=== PATIENT | male | born 1960 | race Caucasian/White ===

== ENCOUNTER 2023-09-12 08:28 | Outpatient (OUT) | payer MEDICARE, SELFPAY | END 2023-09-12 08:29 | disposition home or self-care (01) | LOC: PST 08:29 | PROVIDERS: PCP Family Medicine; Visit Provider Surgery | DX: Z01.818 Encounter for other preprocedural examination (principal); R19.5 Other fecal abnormalities ==

== ENCOUNTER 2023-09-20 08:18 | Day surgery (SDC) | payer MEDICARE, SELFPAY ==
--- NOTE | 2023-09-20 | OP_ITS ---
OPERATION DATE: 09/20/2023 PREOPERATIVE DIAGNOSIS: Positive Cologuard. POSTOPERATIVE DIAGNOSIS: A 1 cm pedunculated rectal polyp. PROCEDURE: Colonoscopy to cecum with hot snare polypectomy x1 for rectal polyp. SURGEON: Jose Luis Juarez M.D. ANESTHESIA: Monitored anesthesia care. ESTIMATED BLOOD LOSS: Less than 1 mL. INDICATIONS AND CONSENT: Patient is a 63-year-old male with a positive Cologuard who presents for colonoscopy. Indications, risks, benefits, alternatives of proceeding with colonoscopy were explained extensively to the patient, including the risks of bleeding, colon perforation or anesthetic complications. All of his questions were answered. Informed consent was obtained. PROCEDURE: Patient brought to the operating room, placed in the left lateral decubitus position. Monitored anesthesia care was provided. Rectal exam was performed which showed no masses or blood. The scope was inserted into the anal canal. Under direct visualization it was advanced. It was advanced to the cecum where cecal markings were clearly identified. Upon withdrawal of the scope, mucosal surfaces were carefully examined. There were no mass lesions or inflammatory changes. No significant diverticulosis. There was noted to be a 1 cm pedunculated rectal polyp that was removed with hot snare with good hemostasis. The scope was retroflexed in the anal canal. There was no significant hemorrhoidal disease. The scope was then withdrawn. Patient tolerated procedure well, was sent to recovery room in good condition.f/u colonoscopy likely in 3 years, but depends on pathology report. CC: Dr. Km STEVENSON
[2023-09-20 08:34] LABS: Glucometer 139 mg/dL (74-106)
[2023-09-20 08:38] VITALS: BP 184/82; PULSE 70; RESP 16; TEMP 36.2; O2SAT 99; BMI 27.6
[2023-09-20] MEDS: LACTATED RINGER'S SOLUTION 1,000 ML 50 ML IV (08:51)
[2023-09-20 10:14] VITALS: BP 104/48; PULSE 57; RESP 15; TEMP 36.7; O2SAT 96
[2023-09-20 10:29] VITALS: BP 127/63; PULSE 62; RESP 16; O2SAT 96
[2023-09-20 10:44] VITALS: BP 134/75; PULSE 58; RESP 16; O2SAT 96
== END 2023-09-20 10:44 | disposition home or self-care (01) ==
PROVIDERS: PCP Family Medicine; Visit Provider Surgery
PROC: (CPT 45385; principal; 2023-09-20 09:15)
DX: R19.5 Other fecal abnormalities (principal); K62.1 Rectal polyp; I25.10 Atherosclerotic heart disease of native coronary artery without angina pectoris; E11.9 Type 2 diabetes mellitus without complications; Z87.891 Personal history of nicotine dependence; I48.91 Unspecified atrial fibrillation; Z79.01 Long term (current) use of 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; E78.5 Hyperlipidemia, unspecified; K21.9 Gastro-esophageal reflux disease without esophagitis; Z87.442 Personal history of urinary calculi; E78.2 Mixed hyperlipidemia; I10 Essential (primary) hypertension; N40.0 Benign prostatic hyperplasia without lower urinary tract symptoms; Z79.82 Long term (current) use of aspirin; Z79.84 Long term (current) use of oral hypoglycemic drugs
CPT/HCPCS: 45385; 36415; 82948; 88305; J2704

== ENCOUNTER 2024-04-08 12:28 | Outpatient (OUT) | payer MEDICARE, SELFPAY ==
--- NOTE | 2024-04-08 | XR_ITS ---
[address] [address] Patient Name: MARCELLE DEUTSCH MRN: [id number] date: 1960 Sex: M Assigned Patient Location: Current Patient Location: Accession/Order Number: [id number] Exam Date: 04/08/2024 12:41 Report Date: 04/08/2024 13:03 At the request of: STEPHAN LORENZO Procedure: XR hip BI w PEL 1V EXAMINATION: XR hip BI w PEL 1V HISTORY: BILATERAL HIP PAIN COMPARISON: No relevant comparison available. FINDINGS: RIGHT FINDINGS: BONES: No acute fracture or dislocation. Minimal degenerative changes with marginal osteophyte formation SOFT TISSUES: Negative. No visible soft tissue swelling. OTHER: Extensive vascular calcifications. LEFT FINDINGS: BONES: No acute fracture or dislocation. Minimal degenerative changes with marginal osteophyte formation SOFT TISSUES: Negative. No visible soft tissue swelling. OTHER: Extensive vascular calcifications XR/XR hip BI w PEL 1V IMPRESSION: Minimal bilateral osteoarthritis Electronically authenticated by: JANNET MARQUEZ Date: 04/08/2024 13:03
--- OUTSIDE RECORDS SUMMARY | 2024-04-08 12:46 | XMS_ITS ---
Patient Summarization (C-CDA 2.1 CCD) Created on: April 08, 2024 MARCELLE DEUTSCH : 1960 Sex: Male Author Organization Sample organization Care Team Providers Care Pharmacology Teacher Name Role Phone Mark Browning Primary Care Provider [phone] Jannet Gonzalez MD Unavailable Ursula Love Primary Care Physician [phone] URSULA LOVE Admitting Unavailable URSULA LOVE Attending Unavailable URSULA LOVE ELVIA Primary Care Unavailable URSULA LOVE Consulting Unavailable BAO, DR MOSCOSO Admitting Unavailable BAO, DR MOSCOSO Attending Unavailable URSULA LOVE Primary Care Unavailable PICKFORD, DR POWER V Consulting Unavailable BAO, DR MOSCOSO Consulting Unavailable URSULA LOVE Consulting Unavailable Km Ursula ENelly Primary Care Physician PARISA HERRON Attending Unavailable BLANKA GORE Attending Unavailable Ana Spencer Attending Unavailable Ana Spencer Admitting Unavailable Km Ursula ENelly Referring Unavailable Jose Luis THOMAS Attending Unavailable Jose Luis THOMAS Attending Unavailable Jose Luis THOMAS Attending Unavailable Juan AntonioKaren figueroa Attending Unavailable Ana Spencer Attending Unavailable Ana Spencer Attending Unavailable Km Ursula ENelly Referring Unavailable Km, Ursula ENelly Admitting Unavailable Km Ursula ENelly Attending Unavailable Km Ursula E. Referring Unavailable Km, Ursula ENelly Admitting Unavailable Km Ursula ENelly Attending Unavailable Km Ursula ENelly Attending Unavailable Juan AntonioKaren figueroa Attending Unavailable Km Ursula ENelly Attending Unavailable Km, Ursula E. Referring Unavailable Shelley Bruce Attending Unavailable Juan Antonio Karen L Admitting Unavailable Juan AntonioKaren figueroa Attending Unavailable Bharath Melton Attending Unavailable Bharath Melton Admitting Unavailable Km Ursula E. Attending Unavailable Ursula Love E. Attending Unavailable Ursula Love E. Attending Unavailable Km, Ursula E. Attending Unavailable Ross, Ursula E. Attending Unavailable Km, Ursula E. Admitting Unavailable Km, Ursula E. Attending Unavailable Ross, Ursula E. Admitting Unavailable Ross, Ursula E. Attending Unavailable Ross, Ursula E. Admitting Unavailable Ross, Ursula E. Attending Unavailable Km, Ursula E. Referring Unavailable Ana Spencer Attending Unavailable Demboske, Ana Rivas Attending Unavailable DemboskeAna Admitting Unavailable Demboske, Ana Rivas Attending Unavailable Ross, Ursula E. Admitting Unavailable Allergies Allergy Classification Reported Allergen(s) Allergy Type Date of Onset Reaction(s) Facility (20 sources) Penicillins; 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: [penicillins] Propensity to adverse reactions to drug 4 Hives, Weal (disorder) [facility] (1 source) Penicillins Drug allergy (disorder) 4 [facility] (1 source) No Known Medication Allergies; 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: [No Known Medication Allergies] Propensity to adverse reactions (disorder) [facility] Repository Encounters Encounter Date Encounter Type Care Provider Facility Start: 12-17-2024 ambulatory Ursula Love Facility :[facility] Start: 03-26-2024 End: 03-26-2024 ambulatory Ursula Love Facility:[facility] Start: 03-14-2024 End: 03-14-2024 Patient encounter procedure Ana Hubbardboy [facility] Start: 03-12-2024 End: 03-13-2024 ambulatory Ana Evelyn Tj Facility:[facility] Start: 03-12-2024 ambulatory Ana Rivas Tj Fac ility:[facility] Start: 03-12-2024 End: 03-12-2024 Patient encounter procedure Ana Rivas Tj [facility] Start: 02-15-2024 End: 02-15-2024 ambulatory Ana Evelyn Spencer Facility:[facility] Start: 02-15-2024 End: 02-15-2024 Patient encounter procedure Ana Spencer [facility] Start: 02-08-2024 End: 02-08-2024 ambulatory Ana Spencer Facility:[facility] Start: 02-08-2024 End: 02-08-2024 Patient encounter procedure Ana Spencer [facility] Start: 02-01-2024 End: 02-01-2024 ambulatory Ana Spencer Facility:[facility] Start: 02-01-2024 End: 02-01-2024 Patient encounter procedure Ana Spencer [facility] Start: 01-25-2024 End: 02-07-2024 ambulatory Ursula Love Facility:[facility] Start: 01-25-2024 End: 01-25-2024 Patient encounter procedure Ana Spencer [facility] Start: 01-16-2024 End: 01-16-2024 ambulatory Bharathjose david Ahujawilbert Facility:[facility] Start: 01-16-2024 End: 01-16-2024 Patient encounter procedure Bharathjose david Ahujalulisylwia [facility] Start: 12-29-2023 End: 12-29-2023 ambulatory PARISA GOPAL [facility] Start: 12-28-2023 End: 12-28-2023 ambulatory Ursula Love Facility:[facility] Start: 12-27-2023 End: 12-27-2023 ambulatory Ursula Love Facility:[facility] Start: 12-27-2023 End: 12-27-2023 Patient encounter procedure Ursula Love [facility] Start: 12-19-2023 ambulatory Ursula Love Facility :[id number] Start: 12-18-2023 End: 12-18-2023 Lab Drop off Ursula Love [facility] Start: 12-18-2023 End: 12-18-2023 ambulatory Ursula Love Facility:[facility] Start: 12-18-2023 End: 12-18-2023 ambulatory Ursula Love Facility:[facility] Start: 10-04-2023 End: 10-04-2023 ambulatory Jose Luis R NILL Facility: [facility] Start: 10-04-2023 End: 10-04-2023 Patient encounter procedure Jose Luis R NILL [facility] Start: 09-20-2023 End: 09-20-2023 ambulatory Jose Luis R NILL Facility:[id number] Start: 08-29-2023 End: 08-29-2023 ambulatory Ursula Love Facility: [facility] Start: 08-16-2023 End: 08-16-2023 ambulatory Ursula Love Facility:[facility] Start: 08-16-2023 End: 08-16-2023 Patient encounter procedure Shelley Bruce [facility] Start: 08-08-2023 ambulatory Ursula Love Facility:[facility] Start: 08-07-2023 End: 08-07-2023 ambulatory Ursula Love Facility:[facility] Start: 08-07-2023 End: 08-07-2023 Patient encounter procedure Ursula Love [facility] Start: 08-04-2023 End: 08-04-2023 Lab Drop off Karen Richard Juan Antonio [facility] Start: 08-04-2023 End: 08-04-2023 ambulatory Karen L Juan Antonio Facility:[facility] Start: 08-03-2023 ambulatory Ursula Km Facility: [facility] Start: 07-19-2023 End: 07-19-2023 ambulatory Karen Richard Juan Antonio Facility:[facility] Start: 07-04-2023 End: 07-04-2023 ambulatory Ursula Love Facility:[facility] Start: 07-04-2023 End: 07-04-2023 Lab Drop off Ursula Love [facility] Start: 07-03-2023 End: 07-03-2023 Lab Drop off Ursula Love [facility] Start: 07-03-2023 End: 07-03-2023 ambulatory Ursula Love Facility:[facility] Start: 06-21-2023 End: 06-21-2023 ambulatory [facility] Start: 01-04-2023 End: 01-05-2023 ambulatory URSULA LOVE Facility: Start: 04-01-2022 End: 04-01-2022 Off-Site Ursula Love [facility] Start: 03-30-2022 End: 03-30-2022 Off-Site Ursula Love [facility] Start: 02-03-2022 Orders Only Jannet Timmons Work Phone: Cardiology Comment on above: Persistent atrial fi brillation (HCC) (Primary Dx) Goals Date Patient Goal Desired Activity /State 12-28-2023 Immunizations Immunization Date Immunization Notes Care Provider Elliot rahman 08-31-2021 SARS-CoV-2 (COVID-19 ) Ad26 vaccine, recombinant Ursula Love [facility] Comment on above: Result Comment: 2021: [id number] 07-23-2021 influenza virus vaccine, unspecified formulation Ursula Love [facility] 12-23-2020 SARS-CoV-2 (COVID-19 ) Ad26 vaccine, recombinant Ursula Love [facility] 07-30-2018 influenza virus vaccine, unspecified formulation Ursula Love [facility] NEGATED: Highlighted row has not occurred!07-03-2023 influenza virus vaccine, unspecified formulation Ursula Love [facility] Medications Current Medications Medication Drug Class(es) Dates Sig (Normalized) Sig (Original) amLODIPine 5 mg oral tablet (17 sources) Dihydropyridine Calcium Channel Josh Start: 04-01-2022 take 1 mg by mouth once daily amLODIPine 5 mg Tab mg tab(s), Oral, Daily, Refills(s) 0 Start Date: 04/01/22 Status: Ordered take 1 tablet by mouth once sonya y amLODIPine (NORVASC) 5 mg tablet amlodipine 5 mg tablet TAKE ONE TABLET BY MOUTH DAILY 0 Active Comment on above: amlodipine 5 mg tabl et TAKE ONE TABLET BY MOUTH DAILY apixaban 5 mg oral tablet (9 sources) Factor Xa Inhibitor Start: 12-18-2023 take 5 mg by mouth twice daily Eliquis 5 mg, Oral, BID, Refills(s) 0 Start Date: 12/18/23 Status: Ordered aspirin 81 mg oral tablet (17 sources) Platelet Aggregation Inhibitor, Nonsteroidal Anti-inflammatory Drug Start: 08-29-2014 take 81 mg by mouth once daily aspirin 81 mg, Oral, Daily, Refills(s) 0 Start Date: 08/29/14 Status: Ordered Start: 08-29-2014 take 325 mg by mouth once sonya y aspirin 325 mg, Oral, Daily, Refills(s) 0 Start Date: 08/29/14 Status: Ordered atorvastatin 80 mg oral tablet (16 sources) HMG-CoA Reductase Inhibitor Start: 12-19-2022 take 1 tablet by mouth once daily atorvastatin 80 mg Tab 80 mg = 1 tab(s), Oral, Daily, # 90 tab(s), Refills(s) 0 Start Date: 12/19/22 Status: Ordered atorvastatin (LI PITOR) 80 mg tablet atorvastatin 80 mg tablet 0 Active Comment on above: atorvastatin 80 mg t ablet baclofen 5 mg oral tablet (1 source) gamma-Aminobutyric Acid-ergic Agonist Start: 2 End: 2 take 1 tablet by mouth three times daily baclofen 5 mg oral tablet 5 mg = 1 tab(s), Oral, TID, X 30 day(s), # 90 tab(s), Refills(s) 0, Pharmacy: [facility]/pharmacy #[id number] Start Date: 04/01/22 Stop Date: 05/01/22 Status: Ordered Centrum Minis Men 50+ oral tablet (7 sources) Start: 4 take 1 tablet by mouth once daily Centrum Minis Men 50+ oral tablet 1 tab(s), Oral, Daily, Refill(s) 0 Start Date: 12/28/23 Status: Ordered cloNIDine hydrochloride 0.1 mg oral tablet (17 sources) Central alpha-2 Adrenergic Agonist Start: 2 take 1 mg by mouth twice daily cloNIDine 0.1 mg tab mg tab(s), Oral, BID Start Date: 04/01/22 Status: Ordered take 1 tablet by mouth twice javon ly cloNIDine HCl (CATAPRES) 0.1 mg tablet clonidine HCl 0.1 mg tablet TAKE ONE TABLET BY MOUTH TWICE A DAY 0 Active Comment on above: clonidine HCl 0.1 mg tablet TAKE ONE TABLET BY MOUTH TWICE A DAY dilTIAZem hydrochloride 30 mg oral tablet (19 sources) Calcium Channel Josh Start: 04-01-2022 diltiazem 30 mg Tab See Instructions, take 1-2 orally as needed, Refills(s) 0 Start Date: 07/03/23 Status: Ordered Start: 02-03-2022 dilTIAZem (CAR DIZEM) 30 mg tablet Take 1 tablet by mouth as needed (1-2 tablets every 6 hours as needed for rapid heart beat (AFIB)). 60 tablet 3 02/03/2022 Active Comment on above: Take 1 tablet by sendy th as needed (1-2 tablets every 6 hours as needed for rapid heart beat (AFIB)). 24 hr isosorbide mononitrate 120 mg extended release oral tablet (18 sources) Nitrate Vasodilator Start: take 1 tablet by mouth once daily in the morning isosorbide mononitrate 120 mg ER Tab 120 mg = 1 tab(s), Oral, qAM, # 90 tab(s), Refills(s) 0 Start Date: 12/19/22 Status: Ordered isosorbide monon itrate ER (IMDUR) 120 mg 24 hr tablet 120 mg once daily. 0 Active Comment on above: 120 mg once daily. Isosorbide Dinitrate (1 source) Nitrate Vasodilator Start: 04-01-2022 isosorbide dinitrate Oral, Refills(s) 0 Start Date: 04/01/22 Status: Ordered lisinopril 20 mg oral tablet (18 sources) Angiotensin Converting Enzyme Inhibitor Start: 07-06-2023 lisinopril 20 mg Tab See Instructions, TAKE 1 TABLET DAILY, # 90 tab(s), Refills(s) 1, Pharmacy: [facility], 178, cm, 12/18/23 13:19:00 EST, Height/Length Dosing, 89.1, kg, 12/18/23 13:19:00 EST, Weight Dosing Start Date: 12/19/23 Status: Ordered Start: 04-25-2023 take 1 tablet by sendy th once daily lisinopril 20 mg Tab 20 mg = 1 tab(s), Oral, Daily, # 90 tab(s), Refills(s) 1, Pharmacy: [facility], 178, cm, 12/19/22 9:57:00 EST, Height/Length Dosing, 90.4, kg, 12/19/22 9:57:00 EST, Weight Dosing Start Date: 04/25/23 Status: Ordered Start: 04-01-2022 take 1 tablet by sendy th once daily lisinopril 10 mg Tab 10 mg = 1 tab(s), Oral, Daily, # 90 tab(s), Refills(s) 0 Start Date: 04/01/22 Status: Ordered Start: 04-01-2022 take 1 mg by mouth once daily lisinopril 20 mg Tab mg tab(s), Oral, Daily, Refills(s) 0 Start Date: 04/01/22 Status: Ordered take 1 tablet by [facility] once daily lisinopril (ZESTRIL, PRINIVIL) 20 mg tablet lisinopril 20 mg tablet TAKE ONE TABLET BY MOUTH ONCE DAILY 0 Active Comment on above: lisinopril 20 mg tab let TAKE ONE TABLET BY MOUTH ONCE DAILY meloxicam 15 mg oral tablet (1 source) Nonsteroidal Anti-inflammatory Drug Start: 04-01-20 take 1 tablet by mouth once daily meloxicam 15 mg oral tablet 15 mg = 1 tab(s), Oral, Daily, # 30 tab(s), Refills(s) 0, Pharmacy: [facility]/pharmacy #[id number] Start Date: 04/01/22 Status: Ordered metFORMIN hydrochloride 500 mg oral tablet (17 sources) Biguanide Start: 07-06-20 metformin 500 mg Tab See Instructions, TAKE 2 TABLETS TWICE A DAY, # 360 tab(s), Refills(s) 1, Pharmacy: [facility], 178, cm, 12/18/23 13:19:00 EST, Height/Length Dosing, 89.1, kg, 12/18/23 13:19:00 EST, Weight Dosing Start Date: 12/19/23 Status: Ordered Start: 04-25-2023 take 2 tablets by [facility] twice daily metformin 500 mg Tab 1,000 mg = 2 tab(s), Oral, BID, TAKE TWO TABLETS BY MOUTH TWICE A DAY, # 360 tab(s), Refills(s) 1, Pharmacy: [facility], 178, cm, 12/19/22 9:57:00 EST, Height/Length Dosing, 90.4, kg, 12/19/22 9:57:00 EST, Weight Dosing Start Date: 04/25/23 Status: Ordered Start: 04-01-2022 End: 09-28-2022 take 2 tablets by mouth twice daily metformin 500 mg ER Tab 1,000 mg = 2 tab(s), Oral, BID, X 90 day(s), # 360 tab(s), Refills(s) 1, Pharmacy: [facility] Start Date: 04/01/22 Stop Date: 09/28/22 Status: Ordered take 2 tablets by mo uth twice daily metFORMIN (GLUCOPHAGE) 500 mg tablet metformin 500 mg tablet TAKE TWO TABLETS BY MOUTH TWICE A DAY 0 Active Comment on above: metformin 500 mg tab let TAKE TWO TABLETS BY MOUTH TWICE A DAY 24 hr metoprolol succinate 100 mg extended release oral tablet (18 sources) beta-Adrenergic Josh Start: 08-29-2014 take 2 tablets by mouth once daily Toprol XL 100 mg Tab-ER 200 mg = 2 tab(s), Oral, Daily, Refills(s) 0 Start Date: 08/29/14 Status: Ordered Start: 08-29-2014 take 1 tablet by sendy once daily Toprol XL 100 mg Tab-ER 100 mg = 1 tab(s), Oral, Daily, Refills(s) 0 Start Date: 08/29/14 Status: Ordered take 1 tablet by sendy once daily metoprolol succinate ER (TOPROL XL) 200 mg 24 hr tablet Take 200 mg by mouth once daily. 0 Active Comment on above: Take 200 mg by mouth once daily. omeprazole 20 mg delayed release oral capsule (18 sources) Proton Pump Inhibitor Start: 11-20-2023 take 1 capsule by mouth once daily omeprazole 20 mg Cap-DR 20 mg = 1 cap(s), Oral, Daily, # 90 cap(s), Refills(s) 1, Pharmacy: [facility], 178, cm, 08/29/23 14:28:00 EST, Height/Length Dosing, 90.8, kg, 08/29/23 14:28:00 EST, Weight Dosing Start Date: 11/20/23 Status: Ordered Start: 07-03-2023 take 1 capsule by [facility] once daily omeprazole 20 mg Cap-DR 20 mg = 1 cap(s), Oral, Daily, # 90 cap(s), Refills(s) 1, Pharmacy: [facility], 178, cm, 07/03/23 7:24:00 EDT, Height/Length Dosing, 90, kg, 07/03/23 7:24:00 EDT, Weight Dosing Start Date: 07/03/23 Status: Ordered Start: 04-01-2022 End: 09-28-2022 take 1 capsule by mouth once daily omeprazole 20 mg Cap-DR 20 mg = 1 cap(s), Oral, Daily, X 90 day(s), # 90 cap(s), Refills(s) 1, Pharmacy: [facility] Start Date: 04/01/22 Stop Date: 09/28/22 Status: Ordered Start: 08-29-2014 take 1 capsule by [facility] once daily omeprazole (PRILOSEC) 20 mg capsule Take 1 capsule by mouth once daily. 90 capsule 3 12/19/2018 Active Comment on above: Take 1 capsule by [facility] once daily. ProFe 180 mg oral capsule (8 sources) Start: 12-25-2023 take 1 capsule by mouth once daily ProFe 180 mg oral capsule 180 mg = 1 cap(s), Oral, Daily, # 100 cap(s), Refills(s) 0, Pharmacy: [facility]/pharmacy #[id number], 178, cm, 12/18/23 13:19:00 EST, Height/Length Dosing, 89.1, kg, 12/18/23 13:19:00 EST, Weight Dosing Start Date: 12/25/23 Status: Ordered 12 hr ranolazine 500 mg extended release oral tablet (15 sources) Anti-anginal Start: 12-19-2022 take 2 tablets by mouth twice daily ranolazine 500 mg oral ER Tab 1,000 mg = 2 tab(s), Oral, BID, # 120 tab(s), Refills(s) 0 Start Date: 12/19/22 Status: Ordered rivaroxaban 20 mg oral tablet (8 sources) Factor Xa Inhibitor Start: 07-03-2023 take 1 tablet by mouth once daily in the evening Xarelto 20 mg oral tablet 20 mg = 1 tab(s), Oral, qPM, Refills(s) 0 Start Date: 07/03/23 Status: Ordered Start: 04-01-2022 End: 09-28-2022 Xarelto 20 mg oral tablet 20 mg, Oral, Daily, DVT/PE Treatment and CrCl over 30 ml/min: (start AFTER 15 mg dosing x 21 days), X 180 day(s), # 180 tab(s), Refills(s) 1 Start Date: 04/01/22 Stop Date: 09/28/22 Status: Ordered Start: 01-21-2019 take 1 tablet by [facility] once daily rivaroxaban (XARELTO) 20 mg tablet Take 1 tablet by mouth once daily. 90 tablet 3 01/21/2019 Active Comment on above: Take 1 tablet by sendy once daily. simvastatin 40 mg oral tablet (2 sources) HMG-CoA Reductase Inhibitor Start: 08-29-2014 take 1 tablet by mouth once daily at bedtime Zocor 40 mg Tab 40 mg = 1 tab(s), Oral, Once a day (at bedtime), Refills(s) 0 Start Date: 08/29/14 Status: Ordered tamsulosin hydrochloride 0.4 mg oral capsule (2 sources) alpha-Adrenergic Josh Start: 07-19-2023 take 1 capsule by mouth once daily Flomax 0.4 mg Cap 0.4 mg = 1 cap(s), Oral, Daily, # 10 cap(s), Refills(s) 0, Pharmacy: [facility]/pharmacy #[id number], 178, cm, 07/19/23 11:20:00 EDT, Height/Length Dosing, 89.2, kg, 07/19/23 11:20:00 EDT, Weight Dosing Start Date: 07/19/23 Status: Ordered Payers Date Payer Category Payer Medicare [id number] 2023 Unknown [id number] 2021 Unknown SHELLIE LAWRENCE PPO [id number] 2021-Present [phone] [address] [place] [address] PPO [id number] 1959 Unknown [id number] 1960 Unknown [id number] 2.16.840.1.266600.3.579.2.593 1960 Unknown [id number] 2.16.840.1.375773.3.579.2.593 1960 Unknown [id number] 2.16.840.1.463163.3.579.2.727 1960 Unknown [id number] 2.16.840.1.849200.3.579.2.727 1960 Unknown [id number] 2.16.840.1.068960.3.579.2.727 1960 Unknown [id number] 2.16.840.1.503213.3.579.2.72 1960 Unknown [id number] 2.16.840.1.834711.3.579.2.72 1960 Unknown [id number] 2.16.840.1.700824.3.579.2.72 1960 Unknown [id number] 2.16.840.1.508594.3.579.2.72 1960 Unknown [id number] 2.16.840.1.445030.3.579.2. 1958 Unknown [id number] 2.16.840.1.720748.3.579.2. 1958 Unknown [id number] 2.16.840.1.518445.3.579.2. 1960 Unknown [id number] 2.16.840.1.735023.3.579.2. 1960 Unknown [id number] 2.16.840.1.287604.3.579.2. 1960 Unknown [id number] 2.16.840.1.939113.3.579.2. 1960 Unknown [id number] 2.16.840.1.361615.3.579.2.72 1958 Unknown [id number] 2.16.840.1.816180.3.579.2. 1958 Unknown [id number] 2.16.840.1.499679.3.579.2. 1958 Unknown [id number] 2.16.840.1.575914.3.579.2. 1960 Unknown [id number] 2.16.840.1.052611.3.579.2.727 1958 Unknown [id number] 2.16.840.1.836372.3.579.2.727 1958 Unknown [id number] 2.16.840.1.093928.3.579.2.727 1958 Unknown [id number] 2.16.840.1.373511.3.579.2.727 1958 Unknown [id number] 2.16.840.1.064427.3.579.2.727 1958 Unknown [id number] 2.16.840.1.158478.3.579.2.727 1958 Unknown [id number] 2.16.840.1.471933.3.579.2.727 1958 Unknown [id number] 2.16.840.1.729711.3.579.2.727 Plan of Treatment Date Care Activity Detail Author Start: 07-04-2020 DIABETES SCREEN DIABETES SCREEN [facility] Start: 2013 PROSTATE CANCER SCREENING DISCUSSION PROSTATE CANCER SCREENING DISCUSSION [facility] Start: 2008 SHINGRIX VACCINE (1 of 2) SHINGRIX VACCINE (1 of 2) [facility] Start: 2003 COLOGUARD (FIT-DNA) COLOGUARD (FIT-D NA) [facility] Start: 2003 Colonoscopy COLONOSCOPY [facility] Start: 2003 COLORECTAL CANCER SCREENING COLORECTAL CANCER SCREENING [facility] Start: [address] COLONOGRAPHY [facility] Start: 2003 FECAL OCCULT BLOOD FECAL OCCULT BLOO D [facility] Start: 2003 SIGMOIDOSCOPY SIGMOIDOSCOPY [facility] Start: 1993 LIPID SCREEN LIPID SCREEN [facility] Start: 1977 Urine microalbumin profile DTAP,TDAP,TD (1 - Tdap) [facility] Start: 1976 ANNUAL PCP TEAM TREATMENT COUNSELOR SARAH DISEASE VISIT ANNUAL PCP TEAM CHRONIC DISEASE VISIT [facility] Start: 1976 BP CONTROLLED (<130/80) BP CONTROLLE D (<130/80) [facility] Start: 1976 Hepatitis B surface antibody level LDL CHOLESTEROL [facility] Start: 1976 HEPATITIS C SCREENING HEPATITIS C PANKAJ MAXINE [facility] Start: 1976 HIV SCREENING HIV SCREENING [facility] Start: 1970 Adult depression screening assessment DEPRESSION SCREENING [facility] End: 02-03-2023 ECG COMPLETE ECG COMPLETE ECG Routine Persistent atrial fibrillation (HCC) 1 Occurrences starting 02/03/2022 until 02/03/2023 [facility] Work Phone: Comment on above: 1 Occurrences starti ng 02/03/2022 until [facility] Active Problems Problem Classification Problem Date Documented Da te Episodic/Chronic Abdominal pain (4 sources) Left flank pain 07-19-2023 Episodic Aortic; peripheral; and visceral artery aneurysms (18 sources) Aortic aneurysm; 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: [Abdominal aortic aneurysm] 08-08-2023 Chronic Calculus of urinary tract (17 sources) Kidney stone; 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: [History of calculus of kidney] Onset: 3 07-19-2023 Episodic Cardiac dysrhythmias (20 sources) Persistent atrial fibrillation; 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: [Other persistent atrial fibrillation] Onset: 2 Chronic Coronary atherosclerosis and other heart disease (20 sources) Coronary arteriosclerosis; 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: [Atherosclerotic heart disease of [place] coronary artery without angina pectoris] Onset: 4 10-02-2014 Chronic Deficiency and other anemia (7 sources) Microcytic anemia 12-28-2023 Episodic Deficiency and other anemia (2 sources) Iron deficiency anemia; 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: [Iron deficiency anemia, unspecified] Onset: 4 Episodic Diabetes mellitus without complication (19 sources) Type 2 diabetes mellitus without complications; 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: [Type 2 diabetes mellitus without complication] Onset: 3 Chronic Disorders of lipid metabolism (20 sources) Dyslipidemia; 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: [Hyperlipidemia, unspecified] Onset: 3 08-22-2014 Chronic Esophageal disorders (15 sources) Gastroesophageal reflux disease without esophagitis 07-03-2023 Chronic Essential hypertension (20 sources) Hypertensive disorder; 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: [Essential (primary) hypertension] Onset: 2 08-22-2014 Chronic Genitourinary symptoms and ill-defined conditions (15 sources) Blood in urine; 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: [Dysuria] Onset: 3 07-19-2023 Episodic Hemorrhoids (13 sources) Bleeding external hemorrhoids 08-02-2023 Episodic Hyperplasia of prostate (12 sources) Benign prostatic hypertrophy without outflow obstruction; 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: [Benign prostatic hyperplasia without lower urinary tract symptoms] Onset: 3 Chronic Nutritional deficiencies (1 source) Vitamin B deficiency; 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: [Deficiency of other specified B group vitamins] Onset: 4 Episodic Other and unspecified benign neoplasm (1 source) Benign neoplasm of rectum; 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: [Benign neoplasm of rectum] Onset: 3 Episodic Other and unspecified benign neoplasm (10 sources) Adenomatous polyp of rectum 10-04-2023 Episodic Other circulatory disease (2 sources) Other disorders of arteries, arterioles and capillaries in diseases classified elsewhere; 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: [Other disorders of arteries, arterioles and capillaries in diseases classified elsewhere] Onset: 4 Chronic Other ear and sense organ disorders (6 sources) Impacted cerumen 07-03-2023 Episodic Other gastrointestinal disorders (2 sources) Intestinal malabsorption; 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: [Intestinal malabsorption, unspecified] Onset: 4 Chronic Other gastrointestinal disorders (7 sources) Splenomegaly 12-28-2023 Episodic Other nutritional; endocrine; and metabolic disorders (18 sources) Metabolic syndrome X; 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: [Metabolic syndrome] 10-11-2021 Chronic Other nutritional; endocrine; and metabolic disorders (2 sources) Obesity 09-01-2014 Chronic Other nutritional; endocrine; and metabolic disorders (15 sources) Overweight in adulthood with body mass index of 25 or more but less than 30 12-19-2022 Episodic Other nutritional; endocrine; and metabolic disorders (10 sources) Overweight 08-29-2023 Episodic Other screening for suspected conditions (not mental disorders or infectious disease) (2 sources) Cardiovascular stress test abnormal; 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: [Abnormal result of other cardiovascular function study] Onset: 4 08-25-2014 Episodic Residual codes; unclassified (12 sources) Family history of malignant neoplasm of kidney; 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: [Family history of malignant neoplasm of kidney] Onset: 3 Episodic Screening and history of mental health and substance abuse codes (12 sources) H/O: Disorder; 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: [Personal history of nicotine dependence] Onset: 3 Episodic Unclassified (15 sources) Non-smoker 12-19-2022 Unclassified (20 sources) Patient encounter status 07-03-2023 Unclassified (1 source) Infrarenal abdominal aortic aneurysm, without rupture; 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: [Infrarenal abdominal aortic aneurysm, without rupture] Onset: 4 Unclassified (1 source) Aneurysm of the ascending aorta, without rupture; 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: [Aneurysm of the ascending aorta, without rupture] Onset: 4 Past or Other Problems Problem Classification Problem Date Documented Da te Episodic/Chronic Other aftercare (1 source) Long-term current use of anticoagulant; 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: [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] Onset: 11-28-2017 11-28-2017 Episodic Unclassified (1 source) Infrarenal abdominal aortic aneurysm, without rupture; 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: [Infrarenal abdominal aortic aneurysm, without rupture] Onset: 12-29-2023 Unclassified (1 source) Aneurysm of the ascending aorta, without rupture; 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: [Aneurysm of the ascending aorta, without rupture] Onset: 12-29-2023 Procedures Date Procedure Procedure Detail Performing Clinician Start: 09-20-2023 Colonoscopy Jose Luis RIVERA Cardiac ablation sys tem (physical object) Shelley Teo Cardiac catheterization Hernandez THOMAS Repair of musculoten dinous cuff of shoulder Jose Luis TOHMAS Rupture of tendon of biceps (disorder) Jose Luis THOMAS Structure of right s houlder region (body structure) Ursula Love Tonsillectomy Jose Luis THOMAS Results Test Name Value Interpretation Reference Range Facil ity Ambulatory Visit Summaryon 0 03-26-2024 Ambulatory Visit Summary MARCELLE DEUTSCH :1960 Visit Date:03/26/2024 Ambulatory Visit Instructions Your Diagnosis Controlled type 2 diabetes mellitus without complication, without long-term current use of insulin Microcytic anemia Primary hypertension AAA (abdominal aortic aneurysm) BMI 26.0-26.9,adult Former smoker Longstanding persistent atrial fibrillation Hip pain, bilateral Pain in left hip These Are Your Goals Complications of CAD Avoided 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s: Review educational material - Done complete testing as directed per provider - Progressing keep follow up appointments as scheduled - Progressing maintain a healthy weight- avoid foods high in saturated fat and trans fat, sugar and sodium - Progressing Reduce A1c and prevent complications assoc with diabetes - Not met 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s: Complete testing as ordered per provider - Not done Keep follow up appoinments as scheduled per proviser - Not done Maintain healthy weight by continuing regular exercise Monday through Monday and a balanced diet - Progressing Review educational material Take Medications as Prescribed - Progressing Exacerbations, Complications of Atrial Fib Avoided - Not met 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s: Keep follow up appointments and testing as scheduled - Progressing Report unrelieved symptoms to provider - Progressing Review educational material - Done Take Medications as Prescribed - Progressing try to reduce or limit alcohol intake - Not done Blood Pressure Maintained Within Therapeutic Range - Not met 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s: Avoid foods high in sodium and try to limit alcohol intake - Progressing Monitor blood pressure 2- 3days per week and report readings to provider - Progressing Review educational material - Done Take Medications as Prescribed - Progressing keep follow up appointments and complete testing as scheduled - Progressing Your Care Team Attending Physician - Ursula Love MD Primary Care Physician - Ursula Love MD. This Is Your Medications List amlodipine (amLODIPine 5 mg Tab) apixaban (Eliquis) aspirin atorvastatin (atorvastatin 80 mg Tab) clonidine (cloNIDine 0.1 mg tab) diltiazem (diltiazem 30 mg Tab) ezetimibe (Zetia) isosorbide mononitrate (isosorbide mononitrate 120 mg ER Tab) lisinopril (lisinopril 20 mg Tab) metformin (metformin 500 mg Tab) metoprolol (Toprol XL 100 mg Tab-ER) multivitamin with minerals (Centrum Minis Men 50+ oral tablet) omeprazole (omeprazole 20 mg Cap-DR) ranolazine (ranolazine 500 mg oral ER Tab) Procedures Performed Colonoscopy (09/20/2023), Cardiac ablation system, Cardiac catheterization, Rotator cuff repair, Tear of biceps tendon, Tonsillectomy. Discharge Vitals Heart Rate (Peripheral) 56 Respiratory Rate 18 Blood Pressure 120/65 Height 70 in Height 179.0 cm Weight 189.2 lb Weight 86.0 kg BMI 26.84 What to do next Scheduled Follow-Up Appointments 2023 2:00 PM EDT With: Where: [facility] 2023 2:00 PM EDT With: Where[facility] 2023 2:00 PM EDT With: Where: [facility] 2023 2:00 PM EDT With: Where: [facility] 2023 2:00 PM EDT With: Where: [facility] 2023 2:00 PM EST With: Where: [facility] Monday, 2023 11:00 AM EST With: Tj BURTON, Ana Rivas Where: [facility] 2023 2:00 PM EST With: Where: [facility] 2024 2:15 PM EST With: Where: [facility] 2024 2:15 PM EST With: Where: [facility] Monday 8:00 AM EST With: Where: [facility] [place] [facility] Family Medicine Office/Clini c Noteon 03-26-2024 Family Medicine Office/Clinic Note HPI Staff Marcelle is a 63 year old male presenting for 3 month follow up DM, HTN, anemia Do you have any of the following symptoms? Foot Exam: due Eye Exam: Last A1C: Hgb A1C %: 6.9 % High (12/18/23 14:20:00) Statin: atorvastatin 40mg pt checks blood blood sugars twice a week roughly running 130's or under Patient is here for follow up on hypertension. How often are you checking your blood pressure? few times a week What are your average readings? today 120/65 Yearly BMP: 01/16/24 Pt had Iron infusion and b12, pt states he have helped a lot having more energy and isn't getting as tired as he use to. History of Present Illness - See staff HPI. Review of Systems PHQ Score Initial Depression Screen Score: 0 SCORE Physical Exam Vitals & Measurements HR: 56(Peripheral) RR: 18 BP: 120/65 SpO2: 95% HT: 70 in HT: 179.0 cm WT: 86.0 kg WT: 189.2 lb BMI: 26.84 General: alert, no acute distress ENMT: oral mucosa moist, Cardiovascular: regular rate and rhythm, normal peripheral perfusion Respiratory: Lungs CTA, respirations non labored Extremities: no deformity, no trauma Neurological: oriented x 4, LOC appropriate for age, CN II-XII intact, motor strength equal & normal bilaterally, speech normal Abdomen: Soft, Nontender, Non-distended, + BS Assessment/Plan 1. Controlled type 2 diabetes mellitus without complication, without long-term current use of insulin (E11.9: Type 2 diabetes mellitus without complications) - Well controlled. - Meds controlling without issues with meds 2. Microcytic anemia (D50.9: Iron deficiency anemia, unspecified) - Seeing Hematology. - Improving greatly. - Feeling amazing 3. Primary hypertension (I10: Essential (primary) hypertension) - At goal. - Has white coat - Improves when relaxed 4. AAA (abdominal aortic aneurysm) (I71.40: Abdominal aortic aneurysm, without rupture, unspecified) - Seeing Vascular for this. - NO other issues at this time. 5. BMI 26.0-26.9,adult (Z68.26: Body mass index [BMI] 26.0-26.9, adult) - BMI education given 6. Former smoker (Z87.891: Personal history of nicotine dependence) - Please continue to not smoke. 7. Longstanding persistent atrial fibrillation (I48.11: Longstanding persistent atrial fibrillation) - Cardiology follow up. - On Eliquis - No bleeding found. 8. Hip pain, bilateral (M25.551: Pain in right hip) - Discussed this and pt seeing ortho. - Discussed bed changes etc. Pain in left hip (M25.552: Pain in left hip) Orders: iron polysaccharide, 180 mg = 1 cap(s), Oral, Daily, # 100 cap(s), Refills(s) 0, Pharmacy: [id number], 178, cm, 12/18/23 13:19:00 EST, Height/Length Dosing, 89.1, kg, 12/18/23 13:19:00 EST, Weight Dosing lisinopril, See Instructions, TAKE 1 TABLET DAILY, # 90 tab(s), Refills(s) 1, Pharmacy: [id number], 179, cm, 03/26/24 10:53:00 EDT, Height/Length Dosing, 86, kg, 03/26/24 10:53:00 EDT, Weight Dosing Follow-up No qualifying data available Problem List/Past Medical History Ongoing AAA (abdominal aortic aneurysm) Aortic aneurysm BMI 28.0-28.9,adult BPH (benign prostatic hyperplasia) CAD in [place] artery Controlled type 2 diabetes mellitus without complication, without long-term current use of insulin External bleeding hemorrhoids Family history of kidney cancer Former smoker GERD without esophagitis Hip pain, bilateral Longstanding persistent atrial fibrillation Microcytic anemia Mixed hyperlipidemia Non-smoker Overweight Personal history of kidney stones Primary hypertension Screening for colon cancer Screening for prostate cancer Spleen enlarged Tubular adenoma of rectum Historical Atrial fibrillation Dyslipidemia Hypertension Metabolic syndrome Procedure/Surgical History Colonoscopy (09/20/2023), Cardiac ablation system, Cardiac catheterization, Rotator cuff repair, Tear of biceps tendon, Tonsillectomy. Medications amLODIPine 5 mg Tab, Oral, Daily aspirin, 81 mg, Oral, Daily atorvastatin 80 mg Tab, 80 mg= 1 tab(s), Oral, Daily Centrum Minis Men 50+ oral tablet, 1 tab(s), Oral, Daily cloNIDine 0.1 mg tab, Oral, BID diltiazem 30 mg Tab, See Instructions Eliquis, 5 mg, Oral, BID isosorbide mononitrate 120 mg ER Tab, 120 mg= 1 tab(s), Oral, qAM lisinopril 20 mg Tab, See Instructions, 1 refills metformin 500 mg Tab, See Instructions omeprazole 20 mg Cap-DR, 20 mg= 1 cap(s), Oral, Daily, 1 refills ranolazine 500 mg oral ER Tab, 1000 mg= 2 tab(s), Oral, BID Toprol XL 100 mg Tab-ER, 200 mg= 2 tab(s), Oral, Daily Zero Hour, None, Day of Tx Zero Hour, None, Day of Tx Zero Hour, None, Day of Tx Zero Hour, None, Day of Tx Zero Hour, None, Day of Tx Zero Hour, None, Day of Tx Zero Hour, None, Day of Tx Zetia, 10 mg, Oral, Daily Allergies penicillins (Hives) Social History Alcohol Current, Beer, 3-5 times per week, Alcohol use interferes with work or home: No. Drinks more than intended: No. Others hurt by (more content not included)... [facility] Comment on above: Result Comment: Elec tronically Signed By: Km NIELSON, Ursula Porter\.br\Date and Time Signed: 03/26/24 16:51 EDT Physician Referralon 024 Physician Referral [id number] [id number] [facility] Population Healthon 03-22-20 24 Population Health Case Information Case Priority: None Programs: -- Referral Source: Rehabilitation Manager Referral Reason: Disease management Case Type: Chronic Care Management Risk Score: -- Case Status: Active (December 28, 2023) Date Assigned: December 19, 2023 Assigned By: Christian Hernandez Date Enrolled: December 28, 2023 Assigned Primary Personnel: Christian Hernandez Assigned Secondary Personnel: -- Case Physician: Ursula Love MD Problems Ongoing AAA (abdominal aortic aneurysm) Aortic aneurysm BMI 28.0-28.9,adult BPH (benign prostatic hyperplasia) CAD in [place] artery Controlled type 2 diabetes mellitus without complication, without long-term current use of insulin External bleeding hemorrhoids Family history of kidney cancer Former smoker GERD without esophagitis Longstanding persistent atrial fibrillation Microcytic anemia Mixed hyperlipidemia Non-smoker Overweight Personal history of kidney stones Primary hypertension Screening for colon cancer Screening for prostate cancer Spleen enlarged Tubular adenoma of rectum Historical Atrial fibrillation Dyslipidemia Hypertension Metabolic syndrome Procedure/Surgical History Colonoscopy (09/20/2023), Cardiac ablation system, Cardiac catheterization, Rotator cuff repair, Tear of biceps tendon, Tonsillectomy. Home Medications amLODIPine 5 mg Tab, Oral, Daily aspirin, 81 mg, Oral, Daily atorvastatin 80 mg Tab, 80 mg= 1 tab(s), Oral, Daily Centrum Minis Men 50+ oral tablet, 1 tab(s), Oral, Daily cloNIDine 0.1 mg tab, Oral, BID diltiazem 30 mg Tab, See Instructions Eliquis, 5 mg, Oral, BID isosorbide mononitrate 120 mg ER Tab, 120 mg= 1 tab(s), Oral, qAM lisinopril 20 mg Tab, See Instructions metformin 500 mg Tab, See Instructions omeprazole 20 mg Cap-DR, 20 mg= 1 cap(s), Oral, Daily, 1 refills ProFe 180 mg oral capsule, 180 mg= 1 cap(s), Oral, Daily ranolazine 500 mg oral ER Tab, 1000 mg= 2 tab(s), Oral, BID Toprol XL 100 mg Tab-ER, 200 mg= 2 tab(s), Oral, Daily Allergies penicillins (Hives) Social History Alcohol Current, Beer, 3-5 times per week, Alcohol use interferes with work or home: No. Drinks more than intended: No. Others hurt by drinking: No. Ready to change: No. Household alcohol concerns: No., 12/18/2023 Employment/School Employed, Work/School description: [employer]. Highest education level: High school. 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 equipment: No., 09/02/2014 Substance Abuse - No Risk, 08/29/2014 Tobacco - No Risk, 08/29/2014 Former smoker, quit more than 30 days ago Tobacco Use:. Never Smokeless Tobacco Use:. Cigarettes, 1 per day. Started age 16.0 Years. Stopped age 53 Years. Household tobacco concerns: No., 03/14/2024 Family History Acute myocardial infarction: Brother. Heart failure: Mother. Screenings and Assessments 12/28/23 08:18:00 Result Name Value Comment CCM Program Enrollment Verbally agreed to receive [facility] services CCM Written Consent Written consent in progress CCM Verbal Consent By Self 12/28/23 07:00:00 Result Name Value Comment HIPPA Verified Type of Contact In person at home CM Preferred Spoken Language Slovenian CM Preferred Written Language Slovenian Preferred Communication Mode Verbal Ability to Read/Write Able to read, Able to write Preferred Salutation Mr. Preferred Method of Contact Cell Cell Phone [phone] Best Time to Visit or Contact 7-10 am Best Day to Visit or Contact No preference Appointment Reminders Patient portal, Other secured messaging Preferred Way to Send PHI Patient portal Preferred Mailing Address [address] [place] [address], [phone] Learning Style Pref Patient Verbal explanation Learning Style Pref Parent/Guardian Verbal explanation Teaching Method Explanation Barriers to Learning None evident Cognitive Deficit No Response to Current Year Correct Response to Current Month Correct Response to Current Time Correct Count Backward 20 to 1 Correct State Months in Reverse Order Correct Repeat Memory Phrase Correct [facility] Test Score Indication None or no significant cognitive impairment Lives In Single level home Number in Household 2 Sleeping Arrangement Shares bed Support System Spouse/Significant other Primary Therapy Teacher of Home Medication Self Current DME at Home No Currently Receiving Skilled Services No Skilled Service Needs Anticipated No Barriers to Care None Home Barriers None Employment Status Retired Financial Issues None Sources of Income Social Security Pat (more content not included)... Normal [facility] CBC w/ Auto Diffon 4 Acanthocytes LM Ql (Bld) PRESENT Invalid Interpretation Code [facility] Comment on above: Performed By: #### 2 [id number] #### [facility] [address] [place] [address] Anisocytosis Ql (Bld) PRESENT Invalid Interpretation Code [facility] Comment on above: Performed By: #### 2 [id number] #### [facility] [address] [place] [address] Basophils/100 WBC (Bld) 0.8 % Normal 0.0-2.0 [facility] Comment on above: Performed By: #### 2 [id number] #### [facility] [address] [place] [address] Basophils/Leukocytes Auto (Bld) [Pure # fraction] 0.0 E9/L Normal 0.0-0.2 [facility] Comment on above: Performed By: #### 2 [id number] #### [facility] [address] [place] [address] Eosinophils (Bld) [#/Vol] 0.2 E9/L Normal 0.0-0.5 [facility] Comment on above: Performed By: #### 2 [id number] #### [facility] [address] [place] [address] Eosinophils/100 WBC (Bld) 3.7 % Normal 0.0-8.0 [facility] Comment on above: Performed By: #### 2 [id number] #### [facility] [address] [place] [address] Erythrocyte distribution width (RBC) [Ratio] 27.1 % High 10.9-14.2 [facility] Comment on above: Performed By: #### 2 [id number] #### [facility] [address] [place] [address] Hematocrit (Bld) [Volume fraction] 40.0 % Normal 37.7-49.0 [facility] Comment on above: Performed By: #### 2 [id number] #### [facility] [address] [place] [address] Hemoglobin (Bld) [Mass/Vol] 13.4 g/dL Low 13.5-17.5 [facility] Comment on above: Performed By: #### 2 [id number] #### [facility] [address] [place] [address] Hypochromia Auto Ql (Bld) PRESENT Invalid Interpretation Code [facility] Comment on above: Performed By: #### 2 [id number] #### [facility] [address] [place] [address] Lymphocytes (Bld) [#/Vol] 1.6 E9/L Normal 1.0-4.0 [facility] Comment on above: Performed By: #### 2 [id number] #### [facility] [address] [place] [address] Lymphocytes/100 WBC (Bld) 32.5 % Normal 14.0-50.0 [facility] Comment on above: Performed By: #### 2 [id number] #### [facility] [address] [place] [address] MCH (RBC) [Entitic mass] 27.3 pg Normal 27.0-34.0 [facility] Comment on above: Performed By: #### 2 [id number] #### [facility] [address] [place] [address] MCHC (RBC) [Mass/Vol] 33.6 g/dL Normal 31.4-36.0 [facility] Comment on above: Performed By: #### 2 [id number] #### [facility] [address] [place] [address] MCV (RBC) [Entitic vol] 81.4 fL Normal 80.0-100.0 [facility] Comment on above: Performed By: #### 2 [id number] #### [facility] [address] [place] [address] Monocytes (Bld) [#/Vol] 0.4 E9/L Normal 0.2-1.0 [facility] Comment on above: Performed By: #### 2 [id number] #### [facility] [address] [place] [address] Neutrophils (Bld) [#/Vol] 2.7 E9/L Normal 2.0-7.5 [facility] Comment on above: Performed By: #### 2 [id number] #### [facility] [address] [place] [address] Neutrophils/100 WBC (Bld) 55.1 % Normal 36.0-75.0 [facility] Comment on above: Performed By: #### 2 [id number] #### [facility] [address] [place] [address] Ovalocytes LM Ql (Bld) PRESENT Invalid Interpretation Code [facility] Comment on above: Performed By: #### 2 [id number] #### [facility] [address] [place] [address] Platelet mean volume (Bld) [Entitic vol] 9.9 fL Normal 6.4-10.8 [facility] Comment on above: Performed By: #### 2 [id number] #### [facility] [address] [place] [address] Platelets (Bld) [#/Vol] 116.0 E9/L Low 150.0-500.0 [facility] Comment on above: Performed By: #### 2 [id number] #### [facility] [address] [place] [address] RBC (Bld) [#/Vol] 4.9 E12/L Normal 4.3-5.9 [facility] Comment on above: Performed By: #### 2 [id number] #### [facility] [address] [place] [address] RBC size Nom (Bld) SEE MORPHOLOGY Invalid Interpretation Code [facility] Comment on above: Performed By: #### 2 [id number] #### [facility] [address] [place] [address] WBC corrected for nucl RBC Auto (Bld) [#/Vol] 5.0 E9/L Normal 4.0-11.0 [facility] Comment on above: Performed By: #### 2 [id number] #### [facility] [address] [place] [address] CHEMISTRYOrdered By: SYSTEM SYSTEM on 03-12-2024 Albumin [Mass/Vol] 4.3 g/dL Normal 3.3 - 5.0 gm/dL R emisol Chem Albumin/Globulin [Mass ratio] 2.3 {ratio} High 1.1 - 2.2 Remisol Chem ALP [Catalytic activity/Vol] 54 [iU]/d Normal 21 - 98 Int._Unit/L Remisol Chem ALT No additional P-5'-P [Catalytic activity/Vol] 47 [iU]/d High 6 - 46 Int._Unit/L Remisol Chem Anion gap [Moles/Vol] 12 mmol/L Normal 6 - 16 mEq/L R emisol Chem AST [Catalytic activity/Vol] 30 [iU]/d Normal 5 - 43 Int._Unit/L Remisol Chem Bilirubin [Mass/Vol] 1.8 mg/dL High 0.0 - 1.1 mg/dL Remisol Chem Calcium [Mass/Vol] 9.1 mg/dL Normal 8.9 - 11. 1 mg/dL Remisol Chem Chloride [Moles/Vol] 102 mmol/L Normal 101 - 1 11 mmol/L Remisol Chem CO2 [Moles/Vol] 26 mmol/L Normal 21 - 31 mmol/L Remis ol Chem Creatinine [Mass/Vol] 0.8 mg/dL Normal 0.5 - 1.3 mg/d L Remisol Chem eGFR 98 mL/min/1.73 m2 Normal >=59mL/min /1.73 m2 Remisol Chem Ferritin [Mass/Vol] 179 ng/mL Normal 24 - 336 ng/mL R emisol Chem Globulin (S) [Mass/Vol] 1.9 g/dL Normal 1.4 - 4.0 gm/dL Remisol Chem Glucose [Mass/Vol] 153 mg/dL Normal 55 - 199 mg/dL Re misol Chem Iron [Mass/Vol] 117 ug/dL Normal 35 - 153 mcg/dL Richard modesto Chem Iron binding capacity [Mass/Vol] 326 ug/dL Normal 250 - 400 mcg/dL Remisol Chem Iron saturation [Mass fraction] 36 % Normal 20 - 50 % Remisol Chem Potassium [Moles/Vol] 4.7 mmol/L Normal 3.5 - 5.3 mmol/L Remisol Chem Protein [Mass/Vol] 6.2 g/dL Normal 6.0 - 7.8 gm/dL R emisol Chem Sodium [Moles/Vol] 135 mmol/L Normal 135 - 145 mmol/L Remisol Chem Transferrin [Mass/Vol] 233 mg/dL Normal 200 - 370 mg/dL Remisol Chem Urea nitrogen [Mass/Vol] 9 mg/dL Normal 5 - 21 mg/dL Remisol Chem Urea nitrogen/Creatinine [Mass ratio] 11 mg/mg Normal 10 - 20 Remisol Chem CMPon 03-12-2024 Albumin [Mass/Vol] 4.3 g/dL Normal 3.3-5.0 [facility] Comment on above: Performed By: #### 2 [id number] #### [facility] [address] [place] [address] Albumin/Globulin (S) [Mass conc ratio] 2.3 High 1.1-2.2 [facility] Comment on above: Performed By: #### 2 [id number] #### [facility] [address] [place] [address] ALP [Catalytic activity/Vol] 54 Int._Unit/L Normal 21-98 [facility] Comment on above: Performed By: #### 2 [id number] #### [facility] [address] [place] [address] ALT No additional P-5'-P [Catalytic activity/Vol] 47 Int._Unit/L High 6-46 [facility] Comment on above: Performed By: #### 2 [id number] #### [facility] [address] [place] [address] Anion gap [Moles/Vol] 12 mmol/L Normal 6-16 [facility] Comment on above: Performed By: #### 2 [id number] #### [facility] [facility] [address] [place] [address] AST [Catalytic activity/Vol] 30 Int._Unit/L Normal 5-43 [facility] Comment on above: Performed By: #### 2 [id number] #### [facility] [address] [place] [address] Bilirubin [Mass/Vol] 1.8 mg/dL High 0.0-1.1 [facility] Comment on above: Performed By: #### 2 [id number] #### [facility] [address] [place] [address] Calcium [Mass/Vol] 9.1 mg/dL Normal 8.9-11.1 [facility] Comment on above: Performed By: #### 2 [id number] #### [facility] [address] [place] [address] Chloride [Moles/Vol] 102 mmol/L Normal 101-111 [facility] Comment on above: Performed By: #### 2 859407 #### [facility] [address] [place] [address] CO2 [Moles/Vol] 26 mmol/L Normal 21-31 [facility] Comment on above: Performed By: #### 2 110093 #### [facility] [address] [place] [address] Creatinine [Mass/Vol] 0.8 mg/dL Normal 0.5-1.3 [facility] Comment on above: Performed By: #### 2 226144 #### [facility] [address] [place] [address] Globulin (S) [Mass/Vol] 1.9 g/dL Normal 1.4-4.0 [facility] Comment on above: Performed By: #### 2 378828 #### [facility] [address] [place] [address] Glucose [Mass/Vol] 153 mg/dL Normal 55-199 [facility] Comment on above: Performed By: #### 2 855007 #### [facility] [address] [place] [address] Potassium [Moles/Vol] 4.7 mmol/L Normal 3.5-5.3 [facility] Comment on above: Performed By: #### 2 115652 #### [facility] [address] [place] [address] Protein [Mass/Vol] 6.2 g/dL Normal 6.0-7.8 [facility] Comment on above: Performed By: #### 2 462128 #### [facility] [address] [place] [address] Sodium [Moles/Vol] 135 mmol/L Normal 135-145 [facility] Comment on above: Performed By: #### 2 071573 #### [facility] [address] [place] [address] Urea nitrogen [Mass/Vol] 9 mg/dL Normal 5-21 [facility] Comment on above: Performed By: #### 2 121336 #### [facility] [address] [place] [address] Urea nitrogen/Creatinine [Mass ratio] 11 No Units Normal 10-20 [facility] Comment on above: Performed By: #### 2 362815 #### [facility] [address] [place] [address] Consent for Treatmenton 02-14 Consent for Treatment [id number] #1.00TIFF Normal [facility] Ferritinon 03-12-2024 Ferritin [Mass/Vol] 179 ng/mL Normal 24-336 [facility] Comment on above: Performed By: #### 2 450393 #### [facility] [address] [place] [address] HEMATOLOGYOrdered By: SYSTEM SYSTEM on 03-12-2024 Acanthocytes LM Ql (Bld) PRESENT *NA* (03/12/24 8:44 AM) Invalid Interpretation Code Remisol Heme Anisocytosis Ql (Bld) PRESENT *NA* (03/12/24 8:44 AM) Invalid Interpretation Code Remisol Heme Basophils/100 WBC (Bld) 0.8 % Normal 0.0 - 2.0 % Remisol Heme Basophils/Leukocytes Auto (Bld) [Pure # fraction] 0.0 E9/L Normal 0.0 - 0.2 E9/L Remisol Heme Eosinophils (Bld) [#/Vol] 0.2 E9/L Normal 0.0 - 0.5 E9/L Remisol Heme Eosinophils/100 WBC (Bld) 3.7 % Normal 0.0 - 8.0 % Remisol Heme Erythrocyte distribution width (RBC) [Ratio] 27.1 % High 10.9 - 14.2 % Remisol Heme Hematocrit (Bld) [Volume fraction] 40.0 % Normal 37.7 - 49.0 % Remisol Heme Hemoglobin (Bld) [Mass/Vol] 13.4 g/dL Low 13.5 - 17.5 gm/dL Remisol Heme Hypochromia Auto Ql (Bld) PRESENT *NA* (03/12/24 8:44 AM) Invalid Interpretation Code Remisol Heme Lymphocytes (Bld) [#/Vol] 1.6 E9/L Normal 1.0 - 4.0 E9/L Remisol Heme Lymphocytes/100 WBC (Bld) 32.5 % Normal 14.0 - 50.0 % Remisol Heme MCH (RBC) [Entitic mass] 27.3 pg Normal 27.0 - 34.0 pg Remisol Heme MCHC (RBC) [Mass/Vol] 33.6 g/dL Normal 31.4 - 36.0 gm/dL Remisol Heme MCV (RBC) [Entitic vol] 81.4 fL Normal 80.0 - 100.0 fL Remisol Heme Monocytes (Bld) [#/Vol] 0.4 E9/L Normal 0.2 - 1.0 E9/L Remisol Heme Monocytes/100 WBC (Bld) 7.9 % Normal 4.0 - 14.0 % Remisol Heme Neutrophils (Bld) [#/Vol] 2.7 E9/L Normal 2.0 - 7.5 E9/L Remisol Heme Neutrophils/100 WBC (Bld) 55.1 % Normal 36.0 - 75.0 % Remisol Heme Ovalocytes LM Ql (Bld) PRESENT *NA* (03/12/24 8:44 AM) Invalid Interpretation Code Remisol Heme Platelet mean volume (Bld) [Entitic vol] 9.9 fL Normal 6.4 - 10.8 fL Remisol Heme Platelets (Bld) [#/Vol] 116.0 E9/L Low 150.0 - 500.0 E9/L Remisol Heme RBC (Bld) [#/Vol] 4.9 E12/L Normal 4.3 - 5.9 E12/L Re misol Heme RBC size Nom (Bld) SEE MORPHOLOGY *NA* (03/12/24 8:44 AM) Invalid Interpretation Code Remisol Heme WBC corrected for nucl RBC Auto (Bld) [#/Vol] 5.0 E9/L Normal 4.0 - 11.0 E9/L Remisol Heme Ironon 03-12-2024 Iron [Mass/Vol] 117 microgram/dL Normal 35-153 [facility] Comment on above: Performed By: #### 2 [id number] #### [facility] [address] [place] [address] Iron Saturationon 03-12-2024 Iron binding capacity [Mass/Vol] 326 microgram/dL Normal 250-400 [facility] Comment on above: Performed By: #### 2 447952 #### [facility] [address] [place] [address] Iron saturation [Mass fraction] 36 % Normal 20-50 [facility] Comment on above: Performed By: #### 2 [id number] #### [facility] [address] [place] [address] Transferrinon 03-12-2024 Transferrin [Mass/Vol] 233 mg/dL Normal 200-370 [facility] Comment on above: Performed By: #### 2 478293 #### [facility] [address] [place] [address] eGFRon 03-12-2024 eGFR 98 mL/min/1.73 m2 Normal >=59 [facility] Comment on above: Order Comment: Order added by Discern Expert. Performed By: #### 1 [id number] #### [facility] [address] [place] [address] Consent for Treatmenton -0 Consent for Treatment [id number] #1.00TIFF [facility] Consent for Treatmenton - Consent for Treatment [id number] #1.00TIFF [facility] Consent for Treatmenton 01-14 Consent for Treatment [id number] #1.00TIFF [facility] Consenton 01-31-2024 Consent [id number]#1.00TIFF [facility] Outside Diabetes Eye Examon 01-31-2024 Outside Diabetes Eye Exam [id number] #1.00TIFF [facility] Population Healthon 01-26-20 [facility] Health Case Information Case Priority: None Programs: -- Referral Source: Rehabilitation Manager Referral Reason: Disease management Case Type: Chronic Care Management Risk Score: -- Case Status: Active (December 28, 2023) Date Assigned: December 19, 2023 Assigned By: Christian Hernandez Date Enrolled: December 28, 2023 Assigned Primary Personnel: Christian Hernandez Assigned Secondary Personnel: -- Case Physician: Km NIELSON, Ursula Leos Ongoing AAA (abdominal aortic aneurysm) Aortic aneurysm BMI 28.0-28.9,adult BPH (benign prostatic hyperplasia) CAD in [place] artery Controlled type 2 diabetes mellitus without complication, without long-term current use of insulin External bleeding hemorrhoids Family history of kidney cancer Former smoker GERD without esophagitis Longstanding persistent atrial fibrillation Microcytic anemia Mixed hyperlipidemia Non-smoker Overweight Personal history of kidney stones Primary hypertension Screening for colon cancer Screening for prostate cancer Spleen enlarged Tubular adenoma of rectum Historical Atrial fibrillation Dyslipidemia Hypertension Metabolic syndrome Procedure/Surgical History Colonoscopy (09/20/2023), Cardiac ablation system, Cardiac catheterization, Rotator cuff repair, Tear of biceps tendon, Tonsillectomy. Home Medications amLODIPine 5 mg Tab, Oral, Daily aspirin, 81 mg, Oral, Daily atorvastatin 80 mg Tab, 80 mg= 1 tab(s), Oral, Daily Centrum Minis Men 50+ oral tablet, 1 tab(s), Oral, Daily cloNIDine 0.1 mg tab, Oral, BID diltiazem 30 mg Tab, See Instructions Eliquis, 5 mg, Oral, BID isosorbide mononitrate 120 mg ER Tab, 120 mg= 1 tab(s), Oral, qAM lisinopril 20 mg Tab, See Instructions metformin 500 mg Tab, See Instructions omeprazole 20 mg Cap-DR, 20 mg= 1 cap(s), Oral, Daily, 1 refills ProFe 180 mg oral capsule, 180 mg= 1 cap(s), Oral, Daily ranolazine 500 mg oral ER Tab, 1000 mg= 2 tab(s), Oral, BID Toprol XL 100 mg Tab-ER, 200 mg= 2 tab(s), Oral, Daily Allergies penicillins (Hives) Social History Alcohol Current, Beer, 3-5 times per week, Alcohol use interferes with work or home: No. Drinks more than intended: No. Others hurt by drinking: No. Ready to change: No. Household alcohol concerns: No., 12/18/2023 Employment/School Employed, Work/School description: [employer]. Highest education level: High school. 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 equipment: No., 09/02/2014 Substance Abuse - No Risk, 08/29/2014 Tobacco - No Risk, 08/29/2014 Former smoker, quit more than 30 days ago Tobacco Use:. Never Smokeless Tobacco Use:. Cigarettes, 1 per day. Started age 16.0 Years. Stopped age 53 Years. Household tobacco concerns: No., 01/25/2024 Family History Acute myocardial infarction: Brother. Heart failure: Mother. Screenings and Assessments 12/28/23 08:18:00 Result Name Value Comment CCM Program Enrollment Verbally agreed to receive [facility] services CCM Written Consent Written consent in progress CCM Verbal Consent By Self 12/28/23 07:00:00 Result Name Value Comment HIPPA Verified Type of Contact In person at home CM Preferred Spoken Language Slovenian CM Preferred Written Language Slovenian Preferred Communication Mode Verbal Ability to Read/Write Able to read, Able to write Preferred Salutation MrNelly Preferred Method of Contact Cell Cell Phone [phone] Best Time to Visit or Contact 7-10 am Best Day to Visit or Contact No preference Appointment Reminders Patient portal, Other secured messaging Preferred Way to Send PHI Patient portal Preferred Mailing Address [address] [place] [address], [id number] Learning Style Pref Patient Verbal explanation Learning Style Pref Parent/Guardian Verbal explanation Teaching Method Explanation Barriers to Learning None evident Cognitive Deficit No Response to Current Year Correct Response to Current Month Correct Response to Current Time Correct Count Backward 20 to 1 Correct State Months in Reverse Order Correct Repeat Memory Phrase Correct [facility] Test Score Indication None or no significant cognitive impairment Lives In Single level home Number in Household 2 Sleeping Arrangement Shares bed Support System Spouse/Significant other Primary Therapy Teacher of Home Medication Self Current DME at Home No Currently Receiving Skilled Services No Skilled Service Needs Anticipated No Barriers to Care None Home Barriers None Employment Status Retired Financial Issues None Sources of Income Social Security Pat (more content not included)... Normal [facility] Consent for Treatmenton 01-14 Consent for Treatment [id number] #1.00TIFF [facility] Oncology Progress Noteon Oncology Progress Note Diagnoses 1. Iron deficiency anemia (D50.9: Iron deficiency anemia, unspecified) 2. Intestinal malabsorption (K90.9: Intestinal malabsorption, unspecified) B12 deficiency (E53.8: Deficiency of other specified B group vitamins) Ordered: cyanocobalamin, 1,000 mcg = 1 mL, Injection, IntraMuscular, Day of Tx, Routine, Start date 03/13/25, 03/13/25 8:15:00 EDT cyanocobalamin, 1,000 mcg = 1 mL, Injection, IntraMuscular, Day of Tx, Routine, Start date 02/13/25, 02/13/25 8:15:00 EDT cyanocobalamin, 1,000 mcg = 1 mL, Injection, IntraMuscular, Day of Tx, Routine, Start date 08/29/24, 08/29/24 8:15:00 EST cyanocobalamin, 1,000 mcg = 1 mL, Injection, IntraMuscular, Day of Tx, Routine, Start date 08/01/24, 08/01/24 8:15:00 EDT cyanocobalamin, 1,000 mcg = 1 mL, Injection, IntraMuscular, Day of Tx, Routine, Start date 02/08/24, 02/08/24 14:45:00 EDT cyanocobalamin, 1,000 mcg = 1 mL, Injection, IntraMuscular, Day of Tx, Routine, Start date 10/24/24, 10/24/24 8:15:00 EST cyanocobalamin, 1,000 mcg = 1 mL, Injection, IntraMuscular, Day of Tx, Routine, Start date 04/11/24, 04/11/24 8:15:00 EDT cyanocobalamin, 1,000 mcg = 1 mL, Injection, IntraMuscular, Day of Tx, Routine, Start date 02/01/24, 02/01/24 14:45:00 EDT cyanocobalamin, 1,000 mcg = 1 mL, Injection, IntraMuscular, Day of Tx, Routine, Start date 09/26/24, 09/26/24 8:15:00 EST cyanocobalamin, 1,000 mcg = 1 mL, Injection, IntraMuscular, Day of Tx, Routine, Start date 03/14/24, 03/14/24 8:15:00 EDT cyanocobalamin, 1,000 mcg = 1 mL, Injection, IntraMuscular, Day of Tx, Routine, Start date 02/15/24, 02/15/24 14:45:00 EDT cyanocobalamin, 1,000 mcg = 1 mL, Injection, IntraMuscular, Day of Tx, Routine, Start date 01/16/25, 01/16/25 8:15:00 EDT cyanocobalamin, 1,000 mcg = 1 mL, Injection, IntraMuscular, Day of Tx, Stop date 01/25/24 10:08:00 EDT, Routine, Start date 01/25/24 10:08:00 EDT cyanocobalamin, 1,000 mcg = 1 mL, Injection, IntraMuscular, Day of Tx, Routine, Start date 12/19/24, 12/19/24 8:15:00 EST cyanocobalamin, 1,000 mcg = 1 mL, Injection, IntraMuscular, Day of Tx, Routine, Start date 11/21/24, 11/21/24 8:15:00 EST cyanocobalamin, 1,000 mcg = 1 mL, Injection, IntraMuscular, Day of Tx, Routine, Start date 07/04/24, 07/04/24 8:15:00 EDT cyanocobalamin, 1,000 mcg = 1 mL, Injection, IntraMuscular, Day of Tx, Routine, Start date 06/06/24, 06/06/24 8:15:00 EDT cyanocobalamin, 1,000 mcg = 1 mL, Injection, IntraMuscular, Day of Tx, Routine, Start date 05/09/24, 05/09/24 8:15:00 EDT Zero Hour, Day of Tx Zero Hour, Day of Tx Zero Hour, Day of Tx Zero Hour, of Tx Zero Hour, Day of Tx Zero Hour, Day of Tx Zero Hour, of Tx Zero Hour, of Tx Zero Hour, Day of Tx Zero Hour, Day of Tx Zero Hour, of Tx Zero Hour, of Tx Zero Hour, of Tx Zero Hour, of Tx Zero Hour, of Tx Zero Hour, Day of Tx Zero Hour, Day of Tx Zero Hour, Day of Tx Adult Chemotherapy Hypersensitivity Management Adult Chemotherapy Hypersensitivity Management Adult Chemotherapy Hypersensitivity Management Adult Chemotherapy Hypersensitivity Management Adult Chemotherapy Hypersensitivity Management Adult Chemotherapy Hypersensitivity Management Adult Chemotherapy Hypersensitivity Management Adult Chemotherapy Hypersensitivity Management Adult Chemotherapy Hypersensitivity Management Adult Chemotherapy Hypersensitivity Management Adult Chemotherapy Hypersensitivity Management Adult Chemotherapy Hypersensitivity Management Adult Chemotherapy Hypersensitivity Management Adult Chemotherapy Hypersensitivity Management Injection Visit 15 Minutes Injection Visit 15 Minutes Injection Visit 15 Minutes Injection Visit 15 Minutes Injection Visit 15 Minutes Injection Visit 15 Minutes Injection Visit 15 Minutes Injection Visit 15 Minutes Injection Visit 15 Minutes Injection Visit 15 Minutes Injection Visit 15 Minutes Injection Visit 15 Minutes Injection Visit 15 Minutes Injection Visit 15 Minutes Injection Visit 15 Minutes Injection Visit 15 Minutes Injection Visit 15 Minutes Injection Visit 15 Minutes ONC Office Visit 30 Min Orders: CBC w/ Auto Diff Comprehensive Metabolic Panel Ferritin Iron Level Iron Percent Saturation Transferrin Oncological History/ROS/PE/Asses sment and Plan Mr. Deutsch is a 63 year old male former smoker with a history of anemia, AAA, atrial fibrillation, HTN, metabolic syndrome, diabetes, hemorrhoids, BPH, mixed hyperlipidemia, hiatal hernia, GERD, enlarged spleen, CAD, and tubular adenoma of rectum. Surgical history includes cardiac ablation, cardiac catheterization, rotator cuff repair, and tonsillectomy. Medications include amlodipine, aspirin, atorvastatin, Eliquis, clonidine, diltiazem, isosorbide mononitrate, lisinopril, metoprolol, metformin, ProFe, multivitamin, omeprazole, and ranolazine. He denies any personal cancer history. Family cancer history includes his father with squamous cell behind his nasa (more content not included)... Normal [facility] Free K+L Lt Chains,Qn,Son Immunoglobulin light chains.kappa.free (S) [Mass/Vol] 19.0 mg/L Invalid Interpretation Code 3.3-19.4 [facility] Comment on above: Performed By: #### 2 [id number], 8245429, 9144338, 6800239, 9126579, 2174833, 6323218, 0054905, 86971351 ####[facility] [address] [place] [address] Immunoglobulin light chains.kappa.free/Imm unoglobulin light chains.lambda.free (S) [Mass ratio] 1.62 Invalid Interpretation Code 0.26-1.65 [facility] Comment on above: Result Comment: Perf ormed at: [facility] [address] [id number] PhD Nicole Fang Performed By: #### 2 [id number], 1512221, 4532234, 4946143, 5460048, 6739780, 4541798, 1495623, 65738220 ####[facility] [address] [place] [address] Immunoglobulin light chains.lambda.free [Mass/Vol] 11.7 mg/L Invalid Interpretation Code 5.7-26.3 [facility] Comment on above: Performed By: #### 2 [id number], 3964960, 5010192, 4528331, 3830468, 7866897, 2216394, 4249953, 36016641 ####[facility] [address] [place] [address] Immunofixation Serumon 01-16 IgA [Mass/Vol] 87 mg/dL Invalid Interpretation Code 09-335 [facility] Comment on above: Performed By: #### 2 [id number], 2404185, 4756708, 1866433, 3118552, 1800258, 1620971, 6365813, 76998118 ####[facility] [address] [place] [address] IgG [Mass/Vol] 406 mg/dL Low 603-1613 [facility] Comment on above: Performed By: #### 2 18447408, 7487305, 7653104, 4033810, 8110898, 2279239, 5043276, 3884185, 24309121 ####[facility] [address] [place] [address] IgM [Mass/Vol] 136 mg/dL Invalid Interpretation Code [facility] Comment on above: Result Comment: Perf ormed at: [facility] [address] [id number] PhD Nicole Fang Performed By: #### 2 [id number], 1459400, 6099621, 1262975, 4801429, 9750517, 4024086, 2582604, 55589786 ####[address] [place] [address] Protein Fractions [Interp] Comment Invalid Interpretation Code [facility] Comment on above: Result Comment: No m onoclonality detected. Performed By: #### 2 79564572, 4837341, 9480341, 4083707, 1570191, 3389648, 4222432, 5585096, 14699315 ####[facility] [address] [place] [address] SPEon 01-17-2024 Albumin [Mass/Vol] 3.6 g/dL Invalid Interpretation Code 2.9-4.4 [facility] Comment on above: Performed By: #### 2 [id number], 2385634, 8048913, 5183637, 2778761, 9744048, 7500079, 3065684, 60139676 ####[facility] [address] [place] [address] Albumin/Globulin [Mass ratio] 1.8 {ratio} High 0.7-1.7 [facility] Comment on above: Performed By: #### 2 80035681, 6677811, 6374785, 4992932, 4369066, 8934574, 9783202, 8788966, 09161505 ####[address] [place] [address] Alpha 1 globulin Elph [Mass/Vol] 0.2 g/dL Invalid Interpretation Code 0.0-0.4 [facility] Comment on above: Performed By: #### 2 40957148, 7273766, 3954692, 4420862, 7820610, 6456543, 9472226, 7811484, 65413676 ####[address] [place] [address] Alpha 2 globulin Elph [Mass/Vol] 0.6 g/dL Invalid Interpretation Code 0.4-1.0 [facility] Comment on above: Performed By: #### 2 68459368, 7074255, 3526073, 6726616, 7378782, 6015906, 9322813, 2712220, 36461489 ####[address] [address] Beta globulin Elph [Mass/Vol] 0.8 g/dL Invalid Interpretation Code 0.7-1.3 [facility] Comment on above: Performed By: #### 2 88982187, 6940112, 8085726, 5622417, 0805642, 9690927, 2800990, 9306871, 80617701 ####[address] [address] Gamma globulin Elph [Mass/Vol] 0.4 g/dL Invalid Interpretation Code 0.4-1.8 [facility] Comment on above: Performed By: #### 2 47840216, 7187008, 7511436, 5836074, 5118397, 8770485, 2913291, 8092962, 82465496 ####[address] [place] [address] Globulin (S) [Mass/Vol] 2.0 g/dL Low 2.2-3.9 [facility] Comment on above: Performed By: #### 2 14569256, 5156610, 3074736, 9243761, 4179684, 8848636, 1551867, 9716737, 37667720 ####[facility] [address] [place] [address] Laboratory comment Harman (Report) Comment Invalid Interpretation Code [facility] Comment on above: Result Comment: Prot ein electrophoresis scan will follow via computer, mail, or crew manager delivery. Performed By: #### 2 67626124, 4431651, 2239908, 6742820, 1711388, 4248713, 2400828, 5204782, 33476626 ####[facility] [address] [place] [address] Protein [Mass/Vol] 5.6 g/dL Low 6.0-8.5 [facility] Comment on above: Performed By: #### 2 57392539, 8978854, 4288380, 8176581, 6326555, 2469647, 1059980, 1403628, 68919858 ####[facility] [address] [place] [address] Protein Fractions [Interp] Comment: Invalid Interpretation Code [facility] Comment on above: Result Comment: SPE shows decreased total protein. Performed at: [address] [id number] PhD Nicole Fang Performed By: #### 2 06304593, 9280076, 2200272, 1134566, 0847029, 9025437, 2076286, 9634194, 26809007 ####[facility] [address] [place] [address] Protein.monoclonal Elph [Mass/Vol] Not Observed Invalid Interpretation Code Not Observed [facility] Comment on above: Performed By: #### 2 36137882, 9845026, 7404433, 7398048, 7608960, 5881306, 8545424, 8394209, 57613889 ####[facility] [address] [place] [address] CHEMISTRYOrdered By: SYSTEM SYSTEM on 01-16-2024 Cobalamin (Vitamin B12) [Mass/Vol] 213 pg/mL Normal 50 - 1500 pg/mL Remisol Chem Ferritin [Mass/Vol] 8 ng/mL Low 24 - 336 ng/mL R emisol Chem Folate [Mass/Vol] 13.0 ng/mL Normal >=6.7ng/mL Remisol Chem Iron [Mass/Vol] 36 ug/dL Normal 35 - 153 mcg/dL [facility] Iron binding capacity [Mass/Vol] 473 ug/dL High 250 - 400 mcg/dL Remisol Chem Iron saturation [Mass fraction] 8 % Low 20 - 50 % Remisol Chem Transferrin [Mass/Vol] 338 mg/dL Normal 200 - 370 mg/dL Remisol Chem Consent for Treatmenton Consent for Treatment [id number] #1.00TIFF Normal [facility] Ferritinon 01-16-2024 Ferritin [Mass/Vol] 8 ng/mL Low 24-336 [facility] Comment on above: Performed By: #### 2 [id number], 7663643, 7068034, 6966482, 9961370, 5801752, 0393461, 7447390, 51937287 ####[facility] [address] [place] [address] Folateon 01-16-2024 Folate [Mass/Vol] 13.0 ng/mL Normal >=6.7 [facility] Comment on above: Performed By: #### 2 36939590, 8391937, 2070784, 3974650, 5299776, 3306633, 1603539, 7860969, 89733431 ####[facility] [address] [place] [address] Ironon 01-16-2024 Iron [Mass/Vol] 36 microgram/dL Normal 35-153 [facility] Comment on above: Performed By: #### 2 12543495, 2761411, 4950545, 8973832, 8053372, 8099227, 5566047, 2472558, 61616682 #### [facility] [address] [place] [address] Iron Saturationon 01-16-2024 Iron binding capacity [Mass/Vol] 473 microgram/dL High 250-400 [facility] Comment on above: Performed By: #### 2 92001225, 5012976, 2429393, 9726539, 5929656, 3250733, 6148415, 2374819, 50026791 #### [facility] [address] [place] [address] Iron saturation [Mass fraction] 8 % Low 20-50 [facility] Comment on above: Performed By: #### 2 40873232, 8149825, 2159601, 2088451, 3156505, 3304277, 8928772, 9255252, 68469793 #### [facility] [address] [place] [address] Transferrinon 01-16-2024 Transferrin [Mass/Vol] 338 mg/dL Normal 200-370 [facility] Comment on above: Performed By: #### 2 58567486, 4079667, 4151039, 1864979, 7052959, 1349603, 1071253, 2046985, 47549538 #### [facility] [address] [place] [address] Vit B12on 01-16-2024 Cobalamin (Vitamin B12) [Mass/Vol] 213 pg/mL Normal 50-1500 [facility] Comment on above: Performed By: #### 2 26632012, 0939353, 0601804, 9636851, 6052832, 2681184, 9295280, 5753602, 60084932 ####[facility] [id number] [place] [address] 36on 01-10-2024 36 Message sent from patient to my email: Kg Bonita hope all is well, I forgot to ask if I???m 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 Some things I???ve read are telling me not to?? Marilyn, are you able to advise on this? Thanks. Normal [facility] Physician Referralon 024 Physician Referral [phone] [id number] #[id number] Normal [facility] Office Visiton 12-29-2023 Follow-up visit [id number] Marcelle Deutsch 1960 M Date Provider Department Center 12/29/2023 PARISA MUNGUIA WENDY [facility] Family History Problem Relation Age of Onset Coronary artery disease Father Atrial fibrillation Father Heart attack Brother Family Status - Relation Status Age at Father Brother Level of Service:82846 MA OFFICE/OUTPATIENT ESTABLISHED MOD MDM 30 MIN Normal [facility] ED Pat Eduon 12-28-2023 ED [facility] Cardiovascular Coronary Artery Disease, Male Coronary artery disease (CAD) is a condition in which the arteries that lead to the heart (coronary arteries) become narrow or blocked. The narrowing or blockage can lead to decreased blood flow to the heart. Prolonged reduced blood flow can cause a heart attack (myocardial infarction, or NH). This condition may also be called coronary heart disease. CAD is the most common type of heart disease, and heart disease is the leading cause of in men. It is important to understand what causes CAD and how it is treated. What are the causes? CAD is most often caused by atherosclerosis. This is the buildup of fat and cholesterol (plaque) on the inside of the arteries. Over time, the plaque may narrow or block the artery, reducing blood flow to the heart. Plaque can also become weak and break off within a coronary artery and cause a sudden blockage. Other less common causes of CAD include: ? A blood clot or a piece of another substance that blocks the flow of blood in a coronary artery (embolism). ? A tearing of the artery (spontaneous coronary artery dissection). ? An enlargement of an artery (aneurysm). ? Inflammation (vasculitis) in the artery wall. What increases the risk? The following factors may make you more likely to develop this condition: ? Age. Men older than 45 years are at a greater risk of CAD. ? Family history of CAD. ? High blood pressure (hypertension). ? Diabetes. ? High cholesterol levels. ? Obesity. Other risk factors include: ? Tobacco use. ? Excessive alcohol use. ? Lack of exercise. ? A diet high in saturated and trans fats, such as fried food and processed meat. What are the signs or symptoms? Many people do not have any symptoms during the early stages of CAD. As the condition progresses, symptoms may include: ? Chest pain (angina). The pain can: ? Feel like crushing or squeezing, or like a tightness, pressure, fullness, or heaviness in the chest. ? Last more than a few minutes or can stop and recur. The pain tends to get worse with exercise or stress and to fade with rest. ? Pain in the arms, neck, jaw, ear, or back. ? Unexplained heartburn or indigestion. ? Shortness of breath. ? Nausea or vomiting. ? Sudden light-headedness. ? Sudden cold sweats. ? Fluttering or fast heartbeat (palpitations). How is this diagnosed? This condition is diagnosed based on: ? Your family and medical history. ? A physical exam. ? Tests. These may include: ? A test to check the electrical signals in your heart (electrocardiogram). ? Exercise stress test. This looks for signs of blockage when the heart is stressed with exercise, such as running on a treadmill. ? Pharmacologic stress test. This test looks for signs of blockage when the heart is being stressed with a medicine. ? Blood tests to check levels of cardiac enzymes such as troponin and creatine kinase. ? Coronary angiogram. This is a procedure to look at the coronary arteries to see if there is any blockage. During this test, a dye is injected into your arteries so they appear on an X-ray. ? Coronary artery CT scan. This scan helps detect calcium deposits in your coronary arteries. Calcium deposits are an indicator of CAD. ? A test that uses sound waves to take a picture of your heart (echocardiogram). How is this treated? This condition may be treated by: ? Healthy lifestyle changes to reduce risk factors. ? Medicines such as: ? Antiplatelet medicines such as clopidogrel or aspirin. These help to prevent blood clots. ? Nitroglycerin. ? Blood pressure medicines. ? Cholesterol-lowering medicine. ? Coronary angioplasty and stenting. During this procedure, a thin, flexible tube is inserted through a blood vessel and into a blocked artery. A balloon or similar device on the end of the tube is inflated to open up the artery. In some cases, a small, mesh tube (stent) is inserted into the artery to keep it open. ? Coronary artery bypass surgery. During this surgery, veins or arteries from other parts of the body are used to create a bypass around the blockage and allow blood to reach your heart. Follow these instructions at home: Medicines ? Take tmng-xnw-xwdnsji and prescription medicines only as told by your health care provider. ? Do not take the following medicines unless your health care provider approves: ? NSAIDs, such as ibuprofen, naproxen, or celecoxib. ? Vitamin supplements that contain vitamin A, vitamin E, or both. Lifestyle ? Follow an exercise program approved by your health care provider. Ask your health care provider if cardiac rehab is appropriate. ? Maintain a healthy weight or lose weight as approved by your health care provider. ? Learn to manage stress or try to limit your stress. Ask your health care provider for suggestions if you need help. ? Get screened for depression and seek treatment, if needed. ? Do not use any (more content not included)... Normal [facility] Population Healthon 12-28-19 Population Health Problems Ongoing AAA (abdominal aortic aneurysm) Aortic aneurysm BMI 28.0-28.9,adult BPH (benign prostatic hyperplasia) CAD in [place] artery Controlled type 2 diabetes mellitus without complication, without long-term current use of insulin External bleeding hemorrhoids Family history of kidney cancer Former smoker GERD without esophagitis Longstanding persistent atrial fibrillation Microcytic anemia Mixed hyperlipidemia Non-smoker Overweight Personal history of kidney stones Primary hypertension Screening for colon cancer Screening for prostate cancer Spleen enlarged Tubular adenoma of rectum Historical Atrial fibrillation Dyslipidemia Hypertension Metabolic syndrome Procedure/Surgical History Colonoscopy (09/20/2023), Cardiac ablation system, Cardiac catheterization, Rotator cuff repair, Tear of biceps tendon, Tonsillectomy. Medication List amLODIPine 5 mg Tab, Oral, Daily aspirin, 81 mg, Oral, Daily atorvastatin 80 mg Tab, 80 mg= 1 tab(s), Oral, Daily Centrum Minis Men 50+ oral tablet, 1 tab(s), Oral, Daily cloNIDine 0.1 mg tab, Oral, BID diltiazem 30 mg Tab, See Instructions Eliquis, 5 mg, Oral, BID isosorbide mononitrate 120 mg ER Tab, 120 mg= 1 tab(s), Oral, qAM lisinopril 20 mg Tab, See Instructions metformin 500 mg Tab, See Instructions omeprazole 20 mg Cap-DR, 20 mg= 1 cap(s), Oral, Daily, 1 refills ProFe 180 mg oral capsule, 180 mg= 1 cap(s), Oral, Daily ranolazine 500 mg oral ER Tab, 1000 mg= 2 tab(s), Oral, BID Toprol XL 100 mg Tab-ER, 200 mg= 2 tab(s), Oral, Daily Allergies penicillins (Hives) Goals and 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s Care Plan Goal: Complications of CAD Avoided Start Date: 2023 Target: - - Status: - - Barriers: - - Comments: - - 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 Frequency Status Director Bioinformatics Review educational material - - Not done - - keep follow up appointments as scheduled - - Not done - - complete testing as directed per provider - - Not done - - maintain a healthy weight- avoid foods high in saturated fat and trans fat, sugar and sodium - - - - - - Goal: Reduce A1c and prevent complications assoc with diabetes Start Date: 2023 Target: - - Status: Not met Barriers: - - Comments: - - 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 Frequency Status Director Bioinformatics Review educational material - - Not done - - Take Medications as Prescribed - - Not done - - Keep follow up appoinments as scheduled per proviser - - Not done - - Complete testing as ordered per provider - - Not done - - Maintain healthy weight by continuing regular exercise Monday through Monday and a balanced diet - - Not done - - Goal: Exacerbations, Complications of Atrial Fib Avoided Start Date: 2023 Target: - - Status: Not met Barriers: - - Comments: - - 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 Frequency Status Director Bioinformatics Review educational material - - Not done - - Keep follow up appointments and testing as scheduled - - Not done - - Take Medications as Prescribed - - Not done - - Report unrelieved symptoms to provider - - Not done - - try to reduce or limit alcohol intake - - Not done - - Goal: Blood Pressure Maintained Within Therapeutic Range Start Date: 2023 Target: - - Status: Not met Barriers: - - Comments: - - 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 Frequency Status Director Bioinformatics Review educational material - - Not done - - keep follow up appointments and complete testing as scheduled - - Not done - - Take Medications as Prescribed - - Not done - - Avoid foods high in sodium and try to limit alcohol intake - - Not done - - Monitor blood pressure 2- 3days per week and report readings to provider - - Not done - - [facility] Population Health Case Information Case Priority: None Programs: -- Referral Source: Rehabilitation Manager Referral Reason: Disease management Case Type: Chronic Care Management Risk Score: -- Case Status: Active (December 28, 2023) Date Assigned: December 19, 2023 Assigned By: Christian Hernandez Date Enrolled: December 28, 2023 Assigned Primary Personnel: Christian Hernandez Assigned Secondary Personnel: -- Case Physician: -- Problems Ongoing AAA (abdominal aortic aneurysm) Aortic aneurysm BMI 28.0-28.9,adult BPH (benign prostatic hyperplasia) CAD in [place] artery Controlled type 2 diabetes mellitus without complication, without long-term current use of insulin External bleeding hemorrhoids Family history of kidney cancer Former smoker GERD without esophagitis Longstanding persistent atrial fibrillation Microcytic anemia Mixed hyperlipidemia Non-smoker Overweight Personal history of kidney stones Primary hypertension Screening for colon cancer Screening for prostate cancer Spleen enlarged Tubular adenoma of rectum Historical Atrial fibrillation Dyslipidemia Hypertension Metabolic syndrome Procedure/Surgical History Colonoscopy (09/20/2023), Cardiac ablation system, Cardiac catheterization, Rotator cuff repair, Tear of biceps tendon, Tonsillectomy. Home Medications amLODIPine 5 mg Tab, Oral, Daily aspirin, 81 mg, Oral, Daily atorvastatin 80 mg Tab, 80 mg= 1 tab(s), Oral, Daily Centrum Minis Men 50+ oral tablet, 1 tab(s), Oral, Daily cloNIDine 0.1 mg tab, Oral, BID diltiazem 30 mg Tab, See Instructions Eliquis, 5 mg, Oral, BID isosorbide mononitrate 120 mg ER Tab, 120 mg= 1 tab(s), Oral, qAM lisinopril 20 mg Tab, See Instructions metformin 500 mg Tab, See Instructions omeprazole 20 mg Cap-DR, 20 mg= 1 cap(s), Oral, Daily, 1 refills ProFe 180 mg oral capsule, 180 mg= 1 cap(s), Oral, Daily ranolazine 500 mg oral ER Tab, 1000 mg= 2 tab(s), Oral, BID Toprol XL 100 mg Tab-ER, 200 mg= 2 tab(s), Oral, Daily Allergies penicillins (Hives) Social History Alcohol Current, Beer, 3-5 times per week, Alcohol use interferes with work or home: No. Drinks more than intended: No. Others hurt by drinking: No. Ready to change: No. Household alcohol concerns: No., 12/18/2023 Employment/School Employed, Work/School description: [employer]. Highest education level: High school. 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 equipment: No., 09/02/2014 Substance Abuse - No Risk, 08/29/2014 Tobacco - No Risk, 08/29/2014 Former smoker, quit more than 30 days ago Tobacco Use:. Never Smokeless Tobacco Use:. Cigarettes, 1 per day. Started age 16.0 Years. Stopped age 53 Years. Household tobacco concerns: No., 12/18/2023 Family History Acute myocardial infarction: Brother. Heart failure: Mother. Screenings and Assessments 12/28/23 08:18:00 Result Name Value Comment [facility] Program Enrollment Verbally agreed to receive [facility] services CCM Written Consent Written consent in progress CCM Verbal Consent By Self 12/28/23 07:00:00 Result Name Value Comment HIPPA Verified Type of Contact In person at home CM Preferred Spoken Language Slovenian CM Preferred Written Language Slovenian Preferred Communication Mode Verbal Ability to Read/Write Able to read, Able to write Preferred Salutation Preferred Method of Contact Cell Cell Phone [phone] Best Time to Visit or Contact 7-10 am Best Day to Visit or Contact No preference Appointment Reminders Patient portal, Other secured messaging Preferred Way to Send PHI Patient portal Preferred Mailing Address [address] [place] [address] Learning Style Pref Patient Verbal explanation Learning Style Pref Parent/Guardian Verbal explanation Teaching Method Explanation Barriers to Learning None evident Cognitive Deficit No Response to Current Year Correct Response to Current Month Correct Response to Current Time Correct Count Backward 20 to 1 Correct State Months in Reverse Order Correct Repeat Memory Phrase Correct [facility] Test Score Indication None or no significant cognitive impairment Lives In Single level home Number in Household 2 Sleeping Arrangement Shares bed Support System Spouse/Significant other Primary Therapy Teacher of Home Medication Self Current DME at Home No Currently Receiving Skilled Services No Skilled Service Needs Anticipated No Barriers to Care None Home Barriers None Employment Status Retired Financial Issues None Sources of Income Social Security Patient Account Ser (more content not included)... Normal [facility] CT Chest, Low Dose Screening on 12-27-2023 CT Chest, Low Dose Screening Exam Date/Time: 12/27/2023 08:08 EDT Reason for Exam: Z87.891;Screening Report IMPRESSION: Lung RADS category 1: Negative. No nodules and/or definitely benign nodules. Continue annual screening with screening CT chest in 12 months. Aneurysm, ascending thoracic aorta, measuring 4.7 x 4[address] IMAGING OF THE CHEST WITHOUT INTRAVENOUS CONTRAST MEDIUM. HISTORY: Tobacco use. TECHNICAL FACTORS: Low dose CT imaging of the chest was obtained and formatted as 2.5 mm contiguous axial images from the thoracic inlet through the adrenal glands. Sagittal and coronal reconstructions obtained during postprocessing. Intravenous contrast medium: None. Comparison: None. FINDINGS: Right lung: No nodules, masses, consolidation, pleural effusion, pneumothorax. Emphysema, greatest in upper lobe. Left lung: No nodules, masses, consolidation, pleural effusion, pneumothorax. Emphysema, greatest in upper lobe. Lymph nodes: No hilar, mediastinal, or axillary lymph node enlargement. Thoracic aorta: AP and transverse dimension, ascending thoracic aorta, at level of pulmonary arterial bifurcation, measures 4.7 x 4.1 cm. Diffuse calcification, ascending thoracic aorta, aortic arch, and descending thoracic aorta. Cardiac: Size normal. No pericardial effusion. No coronary artery calcification. Upper abdomen:Limited imaging upper abdomen shows no gross ostial calcification celiac artery, superior mesenteric artery, and right main renal artery. Musculoskeletal:No osteoblastic, and no osteolytic lesions. Report All CT scans at this facility use dose modulation, iterative reconstruction, and/or weight based dosing when appropriate to reduce radiation dose to as low as reasonably achievable. Ordering Provider: Ursula Love FINAL REPORT Dictated: 12/27/2023 5:55 pm Zach Bourne MD Signed (Electronic Signature): 12/27/2023 5:55 pm Signed by: Zach Bourne MD Transcribed by: LUDWIN Technologist: MEKHI [facility] Consent for Treatmenton 12-14 Consent for Treatment [id number] #1.00TIFF [facility] Family Medicine Office/Clini c Noteon 12-22-2023 Family Medicine Office/Clinic Note Chief Complaint Welcome to Medicare Vist HPI Staff Marcelle is a 63 year old male presenting for follow up medicare wellness Patient complains of hip/shoulder pain 04/24. Inquires if he may have arthritis. Patient also reports ankles and feet swelling x 2 weeks. Review of Systems PHQ Score Initial Depression Screen Score: 0 SCORE Physical Exam Vitals & Measurements HR: 68(Peripheral) BP: 135/67 SpO2: 98% HT: 178 cm HT: 70 in WT: 89.1 kg WT: 196.02 lb BMI: 28.12 General: alert, no acute distress ENMT: oral mucosa moist, Cardiovascular: irregularly-irregula r rate and rhythm, normal peripheral perfusion Respiratory: Lungs CTA, respirations non labored Extremities: no deformity, no trauma Neurological: oriented x 4, LOC appropriate for age, CN II-XII intact, motor strength equal & normal bilaterally, speech normal Abdomen: Soft, Nontender, Non-distended, + BS Assessment/Plan 1. Annual visit for general adult medical examination with abnormal findings (Z00.01: Encounter for general adult medical examination with abnormal findings) The patient was given a customized and personalized print out of all the current AHRQ USPSTF?s recommendations for preventative services and all current CDC recommended immunizations, relevant risk recommendations and the following patient brochures were given. Reviewed Medicare preventative services checklist. [facility] Prevention and home safety screening reviewed. Patient denies any falls in last 12 months, voices no worry about falling, exhibits no problems with sitting, standing, or ambulation. Pt voices understanding with keeping walk way area free of clutter to prevent tripping and/or falling. [place] Advance Directives reviewed, patient has at home, encouraged to bring copy to office for scanning to chart. Patient denies any problems with ADL?s and Instrumental ADL?s. Cognitive screening completed with memory and clock face drawing. Immunization Record reviewed with the patient. Discussed Shingrix vaccine with educational handout and availability. COVID vaccines have been administered, immunization record is up to date. Allergies and medications reviewed and up to date. Patient denies concerns with taking medication as prescribed, reviewed OTC medications with patient, medication list up to date. Blood tests were reviewed: Discussed what tests need to be updated. Labs were ordered, will have completed prior to next PCP visit. Will have labs completed with [facility]. Colonoscopy up to date, due for repeat 2025. Reviewed pain symptoms with patient: Patient reports left shoulder and right hip pain, takes Tylenol and used Biofreeze as needed, states effective. Patient does home exercises, states it is beneficial. Reviewed all outside providers that patient follows. Last visit summary notes available in chart and/or have been requested. Follow up scheduled, ANTONINA DUNHAM has been scheduled, 12/17/2024 Abnormal findings with elevated BP, serial assessment completed and documented. Medicare provides yearly screening for alcohol and depression concerns. This is completed during our Medicare Wellness visit for those who do not have a current diagnosis of depression or concerns with alcohol use. I spent a total of 17 minutes on this date of service which included preparing to see the patient, face to face patient care, completing clinical documentation, obtaining and/or reviewing separately obtained history, counseling and educating the patient with handouts. Explanations were provided with reviewing questionnaires. AUDIT risk assessment screening completed, risk score 6, with patient denying concerns with use. Completed PHQ-2 risk assessment for depression with risk score 0, negative findings. Patient has been reminded to notify the provider if there would be a change or concerns with symptoms with fear, unable to sleep, worrying too much or feeling down and/or sad with lost of interest with daily activities. Will continue to monitor with screening yearly during Medicare wellness visits. Patient eligible for [facility] services, services explained to patient- intake scheduled 12/26/23 at 1100 2. Other problems related to lifestyle (Z72.89: Other problems related to lifestyle) Information provided and discussed with CDC recommendation that everyone born from 3731-8980 get tested for Hepatitis C. This is also referred to as baby boomers and are 5 times more likely to be at risk. Transmission of Hepatitis C was at its highest. Medicare does cover a once in a lifetime testing if a patient is non-symptomatic. Blood work has been ordered, will review results with PCP. 3. Personal history of tobacco use, (Z87.891: Personal history of nicotine dependence)Former smoker Lung cancer screening counseling and shared decision making were conducted at this visit. The patient meets eligibility criteria for: ? Age (50-80): Yes ? Smoking status (current or former): Former ? Years quit (0-15): 10 ? Pack years (20 or more): 39 Pack Yea (more content not included)... Normal [facility] Comment on above: Result Comment: Elec tronically Signed By: Ursula Love MD\.br\Date and Time Signed: 12/22/23 11:50 EST\.br\Electronically Co-Signed By: Christian Hernandez.br\Date and Time Co-Signed: 12/18/23 15:00 EST .Interpretation:on 4 HCV Ab IA Ql Comment Invalid Interpretation Code [facility] Comment on above: Result Comment: Not infected with HCV unless early or acute infection is suspected (which may be delayed in an immunocompromised individual), or other evidence exists to indicate HCV infection. Performed at: [facility] [address] [place], [place] [id number] PhD Nicole Fang Performed By: #### 2 [id number] ####[facility] [id number] [place] [address] HCV Antibody RFX to Quant PC Kavin 12-20-2023 HCV IgG IA Ql Non-Reactive Invalid Interpretation Code Non Reactive [facility] Comment on above: Result Comment: Perf ormed at: [facility] [address], [place] [id number] PhD Nicole Fang Performed By: #### 2 [id number] ####[facility] [id number] [place] [address] Screenson 12-19-2023 Screens [id number] #1.00TIFF Normal [facility] Ambulatory Visit Summaryon 0 12-18-2023 Ambulatory Visit Summary MARCELLE DEUTSCH :1960 Visit Date:12/18/2023 Ambulatory Visit Instructions Your Diagnosis Longstanding persistent atrial fibrillation GERD without esophagitis Controlled type 2 diabetes mellitus without complication, without long-term current use of insulin Aortic aneurysm BMI 28.0-28.9,adult Former smoker Your Care Team Attending Physician - Ursula Love MD Primary Care Physician - Ursula Love MD This Is Your Medications List amlodipine (amLODIPine 5 mg Tab) apixaban (Eliquis) aspirin atorvastatin (atorvastatin 80 mg Tab) clonidine (cloNIDine 0.1 mg tab) diltiazem (diltiazem 30 mg Tab) isosorbide mononitrate (isosorbide mononitrate 120 mg ER Tab) lisinopril (lisinopril 20 mg Tab) metformin (metformin 500 mg Tab) metoprolol (Toprol XL 100 mg Tab-ER) omeprazole (omeprazole 20 mg Cap-DR) ranolazine (ranolazine 500 mg oral ER Tab) Procedures Performed Colonoscopy (09/20/2023), Cardiac ablation system, Cardiac catheterization, Rotator cuff repair, Tear of biceps tendon, Tonsillectomy. Discharge Vitals Heart Rate (Peripheral) 68 Blood Pressure 135/67 Height 70 in Height 178.0 cm Weight 196.02 lb Weight 89.1 kg BMI 28.12 Medications What How Much When Instructions Unchanged amlodipine (amLODIPine 5 mg Tab) By Mouth Every day Unchanged apixaban (Eliquis) Unchanged aspirin 81 Milligram By Mouth Every day Unchanged atorvastatin (atorvastatin 80 mg Tab) 1 Tablets By Mouth Every day Unchanged clonidine (cloNIDine 0.1 mg tab) By Mouth 2 times a day Unchanged diltiazem (diltiazem 30 mg Tab) See instructions take 1-2 orally as needed Unchanged isosorbide mononitrate (isosorbide mononitrate 120 mg ER Tab) 1 Tablets By Mouth Once a day (in the morning) Unchanged lisinopril (lisinopril 20 mg Tab) 1 Tablets By Mouth Every day Unchanged metformin (metformin 500 mg Tab) 2 Tablets By Mouth 2 times a day TAKE TWO TABLETS BY MOUTH TWICE A DAY Unchanged metoprolol (Toprol XL 100 mg Tab-ER) 2 Tablets By Mouth Every day Unchanged omeprazole (omeprazole 20 mg Cap-DR) 1 Capsules By Mouth Every day Unchanged ranolazine (ranolazine 500 mg oral ER Tab) 2 Tablets By Mouth 2 times a day Allergies penicillins (Hives) Problems Ongoing - Any problem that you are currently receiving treatment for. Aortic aneurysm BMI 28.0-28.9,adult BPH (benign prostatic hyperplasia) CAD in [place] artery Controlled type 2 diabetes mellitus without complication, without long-term current use of insulin External bleeding hemorrhoids Family history of kidney cancer Former smoker GERD without esophagitis Gross hematuria Hematuria Longstanding persistent atrial fibrillation Mixed hyperlipidemia Non-smoker Overweight Personal history of kidney stones Primary hypertension Screening for colon cancer Screening for prostate cancer Tubular adenoma of rectum Historical - Any problem that you are no longer receiving treatment for. Atrial fibrillation Dyslipidemia Hypertension Metabolic syndrome Patient Survey You may receive a survey via text or e-mail asking about your office visit. Please share your experience with us by completing your survey. We appreciate your feedback and thank you for choosing us for your care. Normal [facility] CBC w/ Auto Diffon 03-04-202 4 Anisocytosis Ql (Bld) PRESENT Invalid Interpretation Code [facility] Comment on above: Performed By: #### 2 830649, [id number], 9506190, 6530916, 5743930098, 272093907, 39485727 ####[address] [address] Basophils/100 WBC (Bld) 0.6 % Normal 0.0-2.0 [facility] Comment on above: Performed By: #### 2 795082, 6113341287, 0367839, 6347969, 6895207456, 500619113, 73217268 ####[address] [address] Basophils/Leukocytes Auto (Bld) [Pure # fraction] 0.0 E9/L Normal 0.0-0.2 [facility] Comment on above: Performed By: #### 2 683034, 7146247846, 7183678, 9940052, 4291237249, 409723446, 71190533 ####[address] [address] Eosinophils (Bld) [#/Vol] 0.1 E9/L Normal 0.0-0.5 [facility] Comment on above: Performed By: #### 2 182398, 9363646723, 0996734, 2224638, 1321137930, 090038760, 75444222 ####[address] [address] Eosinophils/100 WBC (Bld) 2.7 % Normal 0.0-8.0 [facility] Comment on above: Performed By: #### 2 642977, 7370287792, 7299305, 8162848, 8592851316, 503065858, 39295869 ####[address] [address] Erythrocyte distribution width (RBC) [Ratio] 17.2 % High 10.9-14.2 [facility] Comment on above: Performed By: #### 2 958972, 0163064098, 1587234, 2163704, 8517350527, 779766280, 50434623 ####[address] [place] [address] Hematocrit (Bld) [Volume fraction] 34.4 % Low 37.7-49.0 [facility] Comment on above: Performed By: #### 2 899778, 3551228908, 8849812, 2256113, 9104823876, 065607548, 98062049 ####[facility] [address] [place] [address] Hemoglobin (Bld) [Mass/Vol] 10.9 g/dL Low 13.5-17.5 [facility] Comment on above: Performed By: #### 2 177664, 4994547700, 5077150, 5299642, 8526834574, 714331115, 63035883 ####[address] [address] Hypochromia Auto Ql (Bld) PRESENT Invalid Interpretation Code [facility] Comment on above: Performed By: #### 2 103168, 6336597839, 1443497, 7921506, 1973812862, 764347021, 66646844 ####[address] [address] Lymphocytes (Bld) [#/Vol] 1.3 E9/L Normal 1.0-4.0 [facility] Comment on above: Performed By: #### 2 146540, 8873869436, 7956489, 8813650, 5332439424, 272322691, 12021520 ####[address] [address] Lymphocytes/100 WBC (Bld) 25.8 % Normal 14.0-50.0 [facility] Comment on above: Performed By: #### 2 772601, 6485545339, 6102081, 6711777, 6369165732, 270130286, 91226902 ####[address] [address] MCH (RBC) [Entitic mass] 23.3 pg Low 27.0-34.0 [facility] Comment on above: Performed By: #### 2 883403, 6500815024, 4550662, 9478433, 5866253539, 428908596, 14767770 ####[address] [address] MCHC (RBC) [Mass/Vol] 31.6 g/dL Normal 31.4-36.0 [facility] Comment on above: Performed By: #### 2 801033, 9952737308, 4340065, 5824455, 8972046616, 866879564, 70097679 ####[address] [address] MCV (RBC) [Entitic vol] 73.6 fL Low 80.0-100.0 [facility] Comment on above: Performed By: #### 2 201278, 9291301079, 7945979, 9701940, 8550170591, 644541894, 10613028 ####[address] [address] Microcytes Ql (Bld) PRESENT Invalid Interpretation Code [facility] Comment on above: Performed By: #### 2 685993, 5113771862, 7905078, 4922075, 4983766219, 640515361, 23028019 ####[address] [address] Monocytes (Bld) [#/Vol] 0.4 E9/L Normal 0.2-1.0 [facility] Comment on above: Performed By: #### 2 820609, 6741230945, 2027168, 5214587, 9776780810, 318003938, 00178603 ####[address] [address] Neutrophils (Bld) [#/Vol] 3.2 E9/L Normal 2.0-7.5 [facility] Comment on above: Performed By: #### 2 367047, 5863240393, 0656602, 1705852, 9961555926, 161096886, 80411507 ####[facility] [address] [place] [address] Neutrophils/100 WBC (Bld) 63.4 % Normal 36.0-75.0 [facility] Comment on above: Performed By: #### 2 543745, 1080518422, 6999500, 9235632, 8944815132, 264542431, 70962672 ####[address] [address] Ovalocytes LM Ql (Bld) PRESENT Invalid Interpretation Code [facility] Comment on above: Performed By: #### 2 559166, 9306124425, 4058981, 2320497, 4221418978, 268679387, 95766467 ####[address] [address] Platelet mean volume (Bld) [Entitic vol] 10.4 fL Normal 6.4-10.8 [facility] Comment on above: Performed By: #### 2 465674, 3167399007, 0957059, 7913837, 5247988096, 589598529, 61361149 ####[address] [address] Platelets (Bld) [#/Vol] 137.0 E9/L Low 150.0-500.0 [facility] Comment on above: Performed By: #### 2 145647, 1805036801, 2039359, 5527400, 4862396601, 068593167, 61034851 ####[address] [address] Poikilocytosis Auto Ql (Bld) PRESENT Invalid Interpretation Code [facility] Comment on above: Performed By: #### 2 800128, 4992057883, 2509384, 7252229, 0724239866, 470991745, 33651651 ####[facility] [address] [place] [address] RBC (Bld) [#/Vol] 4.7 E12/L Normal 4.3-5.9 [facility] Comment on above: Performed By: #### 2 831838, 0017129412, 1054188, 4673961, 8276634419, 333469471, 88392482 ####[facility] [address] [place] [address] WBC corrected for nucl RBC Auto (Bld) [#/Vol] 5.0 E9/L Normal 4.0-11.0 [facility] Comment on above: Performed By: #### 2 022887, 2698862865, 1822112, 5385013, 1874619649, 053584512, 26396626 ####[facility] [address] [place] [address] CHEMISTRYOrdered By: SYSTEM SYSTEM on 12-18-2023 Albumin [Mass/Vol] 4.4 g/dL Normal 3.3 - 5.0 gm/dL R emisol Chem Albumin/Globulin [Mass ratio] 2.6 {ratio} High 1.1 - 2.2 [facility] ALP [Catalytic activity/Vol] 49 [iU]/d Normal 21 - 98 Int._Unit/L [facility] ALT No additional P-5'-P [Catalytic activity/Vol] 20 [iU]/d Normal 6 - 46 Int._Unit/L [facility] Anion gap [Moles/Vol] 13 mmol/L Normal 6 - 16 mEq/L R emisol Chem AST [Catalytic activity/Vol] 17 [iU]/d Normal 5 - 43 Int._Unit/L [facility] Bilirubin [Mass/Vol] 1.7 mg/dL High 0.0 - 1.1 mg/dL [facility] Calcium [Mass/Vol] 9.3 mg/dL Normal 8.9 - 11. 1 mg/dL [facility] Chloride [Moles/Vol] 103 mmol/L Normal 101 - 1 11 mmol/L [facility] Cholesterol [Mass/Vol] 118 mg/dL Low 120 - 200 mg/dL [facility] Cholesterol in HDL [Mass/Vol] 37 mg/dL Invalid Interpretation Code [facility] Comment on above: Result Comment: '>= 60 LOW RISK' '<= 40 HIGH RISK' Cholesterol in LDL [Mass/Vol] 72 mg/dL Normal <=129mg/dL [facility] Cholesterol in VLDL [Mass/Vol] 22 mg/dL Normal 7 - 40 mg/dL [facility] CO2 [Moles/Vol] 26 mmol/L Normal 21 - 31 mmol/L Remis ol Chem Creatinine [Mass/Vol] 0.8 mg/dL Normal 0.5 - 1.3 mg/d L [facility] eGFR 98 mL/min/1.73 m2 Normal >=59mL/min /1.73 m2 [facility] Globulin (S) [Mass/Vol] 1.7 g/dL Normal 1.4 - 4.0 gm/dL [facility] Glucose [Mass/Vol] 124 mg/dL Normal 55 - 199 mg/dL Re misol Chem Potassium [Moles/Vol] 4.0 mmol/L Normal 3.5 - 5.3 mmol/L [facility] Chem Protein [Mass/Vol] 6.1 g/dL Normal 6.0 - 7.8 gm/dL R emisol Chem Sodium [Moles/Vol] 138 mmol/L Normal 135 - 145 mmol/L [facility] Triglyceride [Mass/Vol] 112 mg/dL Normal <=149mg/dL [facility] Urea nitrogen [Mass/Vol] 8 mg/dL Normal 5 - 21 mg/dL [facility] Urea nitrogen/Creatinine [Mass ratio] 10 mg/mg Normal 10 - 20 [facility] CHEMISTRYOrdered By: Bobby roman on 12-18-2023 HbA1c (Bld) [Mass fraction] 6.9 % High <=5.9% [facility] ChemAutoSS CMPon 12-18-2023 Albumin [Mass/Vol] 4.4 g/dL Normal 3.3-5.0 [facility] Comment on above: Performed By: #### 2 901257, 1306752257, 7296780, 7757558, 7166920644, 618268625, 22846871 ####[facility] [address] [place] [address] Albumin/Globulin (S) [Mass conc ratio] 2.6 High 1.1-2.2 [facility] Comment on above: Performed By: #### 2 466393, 6637072798, 2438238, 0451351, 7859543738, 244929413, 13967770 ####[address] [place] [address] ALP [Catalytic activity/Vol] 49 Int._Unit/L Normal 21-98 [facility] Comment on above: Performed By: #### 2 265176, 6454208744, 4556178, 6605955, 9150492629, 835211142, 86559204 ####[facility] [address] [place] [address] ALT No additional P-5'-P [Catalytic activity/Vol] 20 Int._Unit/L Normal 6-46 [facility] Comment on above: Performed By: #### 2 078106, 6908470903, 9396702, 7328409, 8756093508, 813277718, 50347984 ####[facility] [address] [place] [address] Anion gap [Moles/Vol] 13 mmol/L Normal 6-16 [facility] Comment on above: Performed By: #### 2 460024, 2446124085, 4509825, 5254280, 9386197562, 661089047, 01547512 ####[facility] [address] [place] [address] AST [Catalytic activity/Vol] 17 Int._Unit/L Normal 5-43 [facility] Comment on above: Performed By: #### 2 718114, 1517673248, 2183875, 8124020, 3323685738, 656975316, 59340389 ####[facility] [address] [place] [address] Bilirubin [Mass/Vol] 1.7 mg/dL High 0.0-1.1 [facility] Comment on above: Performed By: #### 2 384874, 5729994920, 1376826, 6718489, 3971268061, 105290478, 14360566 ####[facility] [address] [place] [address] Calcium [Mass/Vol] 9.3 mg/dL Normal 8.9-11.1 [facility] Comment on above: Performed By: #### 2 839107, 8898924002, 6668645, 1123249, 2716865437, 338099748, 66442605 ####[facility] [address] [place] [address] Chloride [Moles/Vol] 103 mmol/L Normal 101-111 [facility] Comment on above: Performed By: #### 2 761358, 1488766672, 3587776, 5649411, 2988975969, 533338702, 34104561 ####[facility] [address] [place] [address] CO2 [Moles/Vol] 26 mmol/L Normal 21-31 [facility] Comment on above: Performed By: #### 2 145403, 3244017750, 9953452, 9736658, 9899666310, 728668446, 95059389 ####[facility] [address] [place] [address] Creatinine [Mass/Vol] 0.8 mg/dL Normal 0.5-1.3 [facility] Comment on above: Performed By: #### 2 389384, 9037054867, 9417887, 9775117, 2684852976, 540778768, 17387272 ####[facility] [address] [place] [address] Globulin (S) [Mass/Vol] 1.7 g/dL Normal 1.4-4.0 [facility] Comment on above: Performed By: #### 2 404252, 9571514626, 6889327, 5562393, 8036922396, 825301538, 70546824 ####[facility] [address] [place] [address] Glucose [Mass/Vol] 124 mg/dL Normal 55-199 [facility] Comment on above: Performed By: #### 2 754886, 5484555873, 6159589, 2368361, 2156390151, 352897144, 31038203 ####[facility] [address] [place] [address] Potassium [Moles/Vol] 4.0 mmol/L Normal 3.5-5.3 [facility] Comment on above: Performed By: #### 2 313534, 9142143537, 0328880, 7078010, 0317346731, 278907330, 81658330 ####[facility] [address] [place] [address] Protein [Mass/Vol] 6.1 g/dL Normal 6.0-7.8 [facility] Comment on above: Performed By: #### 2 684190, 1825754841, 9996798, 1283299, 7980193283, 287624287, 49978008 ####[facility] [address] [place] [address] Sodium [Moles/Vol] 138 mmol/L Normal 135-145 [facility] Comment on above: Performed By: #### 2 054462, 1987007510, 6767362, 9030848, 1540835095, 570600696, 50532290 ####[facility] [address] [place] [address] Urea nitrogen [Mass/Vol] 8 mg/dL Normal 5-21 [facility] Comment on above: Performed By: #### 2 096132, 1922009115, 6223826, 4314738, 1281934554, 345090161, 16892269 ####[facility] [address] [place] [address] Urea nitrogen/Creatinine [Mass ratio] 10 No Units Normal 10-20 [facility] Comment on above: Performed By: #### 2 094999, 6340613846, 8531489, 4626929, 5793717087, 831501752, 24428553 ####[facility] [address] HEMATOLOGYOrdered By: SYSTEM SYSTEM on 12-18-2023 Anisocytosis Ql (Bld) PRESENT *NA* (12/18/23 2:20 PM) Invalid Interpretation Code [facility] Basophils/100 WBC (Bld) 0.6 % Normal 0.0 - 2.0 % [facility] Basophils/Leukocytes Auto (Bld) [Pure # fraction] 0.0 E9/L Normal 0.0 - 0.2 E9/L [facility] Eosinophils (Bld) [#/Vol] 0.1 E9/L Normal 0.0 - 0.5 E9/L [facility] Eosinophils/100 WBC (Bld) 2.7 % Normal 0.0 - 8.0 % [facility] Erythrocyte distribution width (RBC) [Ratio] 17.2 % High 10.9 - 14.2 % [facility] Hematocrit (Bld) [Volume fraction] 34.4 % Low 37.7 - 49.0 % [facility] Hemoglobin (Bld) [Mass/Vol] 10.9 g/dL Low 13.5 - 17.5 gm/dL [facility] Hypochromia Auto Ql (Bld) PRESENT *NA* (12/18/23 2:20 PM) Invalid Interpretation Code [facility] Lymphocytes (Bld) [#/Vol] 1.3 E9/L Normal 1.0 - 4.0 E9/L [facility] Lymphocytes/100 WBC (Bld) 25.8 % Normal 14.0 - 50.0 % [facility] MCH (RBC) [Entitic mass] 23.3 pg Low 27.0 - 34.0 pg [facility]e MCHC (RBC) [Mass/Vol] 31.6 g/dL Normal 31.4 - 36.0 gm/dL [facility] MCV (RBC) [Entitic vol] 73.6 fL Low 80.0 - 100.0 fL [facility] Microcytes Ql (Bld) PRESENT *NA* (12/18/23 2:20 PM) Invalid Interpretation Code [facility] Monocytes (Bld) [#/Vol] 0.4 E9/L Normal 0.2 - 1.0 E9/L [facility] Monocytes/100 WBC (Bld) 7.5 % Normal 4.0 - 14.0 % [facility] Neutrophils (Bld) [#/Vol] 3.2 E9/L Normal 2.0 - 7.5 E9/L [facility] Neutrophils/100 WBC (Bld) 63.4 % Normal 36.0 - 75.0 % [facility] Ovalocytes LM Ql (Bld) PRESENT *NA* (12/18/23 2:20 PM) Invalid Interpretation Code [facility] Platelet mean volume (Bld) [Entitic vol] 10.4 fL Normal 6.4 - 10.8 fL [facility] Platelets (Bld) [#/Vol] 137.0 E9/L Low 150.0 - 500.0 E9/L [facility] Poikilocytosis Auto Ql (Bld) PRESENT *NA* (12/18/23 2:20 PM) Invalid Interpretation Code [facility] RBC (Bld) [#/Vol] 4.7 E12/L Normal 4.3 - 5.9 E12/L Re misol Heme WBC corrected for nucl RBC Auto (Bld) [#/Vol] 5.0 E9/L Normal 4.0 - 11.0 E9/L [facility] TomE6mdy 12-18-2023 HbA1c (Bld) [Mass fraction] 6.9 % High <=5.9 [facility] Comment on above: Performed By: #### 2 008329, 8448599693, 1571443, 6472688, 3925843228, 138242237, 43016039 ####[facility] [address] [place] [address] Lipid Panelon 12-18-2023 Cholesterol [Mass/Vol] 118 mg/dL Low 120-200 [facility] Comment on above: Performed By: #### 2 834945, 1798757044, 9409889, 3102407, 9025033782, 656688391, 26092202 ####[facility] [address] [place] [address] Cholesterol in HDL [Mass/Vol] 37 mg/dL Invalid Interpretation Code [facility] Comment on above: Result Comment: '>= 60 LOW RISK' '<= 40 HIGH RISK' Performed By: #### 2 466410, 7279442580, 5059342, 7531896, 8370838913, 619412414, 41984264 ####[facility] [address] [place] [address] Cholesterol in LDL [Mass/Vol] 72 mg/dL Normal <=129 [facility] Comment on above: Performed By: #### 2 550110, 8353306783, 3890907, 4494645, 1662140597, 861618065, 27661282 ####[facility] [address] [place] [address] Cholesterol in VLDL [Mass/Vol] 22 mg/dL Normal 7-40 [facility] Comment on above: Performed By: #### 2 630442, 7341883744, 0578920, 2610481, 8122785628, 269443750, 86943453 ####[facility] [address] [place] [address] Triglyceride [Mass/Vol] 112 mg/dL Normal <=149 [facility] Comment on above: Performed By: #### 2 765316, 7263063433, 4279889, 7415119, 2195481558, 075856492, 55606412 ####[facility] [address] [place] [address] Patient Educationon 12-18-19 24 Patient Education Cardiovascular Atrial Fibrillation Atrial fibrillation is a type of irregular or rapid heartbeat (arrhythmia). In atrial fibrillation, the top part of the heart (atria) beats in an irregular pattern. This makes the heart unable to pump blood normally and effectively. The goal of treatment is to prevent blood clots from forming, control your heart rate, or restore your heartbeat to a normal rhythm. If this condition is not treated, it can cause serious problems, such as a weakened heart muscle (cardiomyopathy) or a stroke. What are the causes? This condition is often caused by medical conditions that damage the heart's electrical system. These include: ? High blood pressure (hypertension). This is the most common cause. ? Certain heart problems or conditions, such as heart failure, coronary artery disease, heart valve problems, or heart surgery. ? Diabetes. ? Overactive thyroid (hyperthyroidism). ? Obesity. ? Chronic kidney disease. In some cases, the cause of this condition is not known. What increases the risk? This condition is more likely to develop in: ? Older people. ? People who smoke. ? Athletes who do endurance exercise. ? People who have a family history of atrial fibrillation. ? Men. ? People who use drugs. ? People who drink a lot of alcohol. ? People who have lung conditions, such as emphysema, pneumonia, or COPD. ? People who have obstructive sleep apnea. What are the signs or symptoms? Symptoms of this condition include: ? A feeling that your heart is racing or beating irregularly. ? Discomfort or pain in your chest. ? Shortness of breath. ? Sudden light-headedness or weakness. ? Tiring easily during exercise or activity. ? Fatigue. ? Syncope (fainting). ? Sweating. In some cases, there are no symptoms. How is this diagnosed? Your health care provider may detect atrial fibrillation when taking your pulse. If detected, this condition may be diagnosed with: ? An electrocardiogram (ECG) to check electrical signals of the heart. ? An ambulatory hospital monitor to record your heart's activity for a few days. ? A transthoracic echocardiogram (TTE) to create pictures of your heart. ? A transesophageal echocardiogram (LINNETTE) to create even closer pictures of your heart. ? A stress test to check your blood supply while you exercise. ? Imaging tests, such as a CT scan or chest X-ray. ? Blood tests. How is this treated? Treatment depends on underlying conditions and how you feel when you experience atrial fibrillation. This condition may be treated with: ? Medicines to prevent blood clots or to treat heart rate or heart rhythm problems. ? Electrical cardioversion to reset the heart's rhythm. ? A pacemaker to correct abnormal heart rhythm. ? Ablation to remove the heart tissue that sends abnormal signals. ? Left atrial appendage closure to seal the area where blood clots can form. In some cases, underlying conditions will be treated. Follow these instructions at home: Medicines ? Take over-the counter and prescription medicines only as told by your health care provider. ? Do not take any new medicines without talking to your health care provider. ? If you are taking blood thinners: ? Talk with your health care provider before you take any medicines that contain aspirin or NSAIDs, such as ibuprofen. These medicines increase your risk for dangerous bleeding. ? Take your medicine exactly as told, at the same time every day. ? Avoid activities that could cause injury or bruising, and follow instructions about how to prevent falls. ? Wear a medical alert bracelet or carry a card that lists what medicines you take. Lifestyle ? Do not use any products that contain nicotine or tobacco, such as cigarettes, e-cigarettes, and chewing tobacco. If you need help quitting, ask your health care provider. ? Eat heart-healthy foods. Talk with a dietitian to make an eating plan that is right for you. ? Exercise regularly as told by your health care provider. ? Do not drink alcohol. ? Lose weight if you are overweight. ? Do not use drugs, including cannabis. General instructions ? If you have obstructive sleep apnea, manage your condition as told by your health care provider. ? Do not use diet pills unless your health care provider approves. Diet pills can make heart problems worse. ? Keep all follow-up visits as told by your health care provider. This is important. Contact a health care provider if you: ? Notice a change in the rate, rhythm, or strength of your heartbeat. ? Are taking a blood thinner and you notice more bruising. ? Tire more easily when you exercise or do heavy work. ? Have a sudden change in weight. Get help right away if you have: ? Chest pain, abdominal pain, sweating, or weakness. ? Trouble breathing. (more content not included)... Normal [facility] eGFRon 12-18-2023 eGFR 98 mL/min/1.73 m2 Normal >=59 [facility] Comment on above: Order Comment: Order added by Discern Expert. Performed By: #### 2 920810, 2471004114, 6152235, 4193660, 6557816584, 096860376, 25733677 ####[facility] [address] [place] [place] [address] 36on 11-20-2023 36 Patient emailed me and asked if we had samples of Xarelto. Since he's on Medicare now it's very expensive for him. We haven't had a rep bring samples of Xarelto in about 1 year. I mentioned switching to Eliquis, since we do get samples of that. Ok to send RX for Eliquis 5mg bid? Please advise. Thanks! Normal [facility] Ambulatory Visit Summaryon 1 12-05-2022 Ambulatory Visit Summary MARCELLE DEUTSCH :1960 Visit Date:10/04/2023 Ambulatory Visit Instructions Your Care Team Attending Physician - WILLIAM NIELSON, Jose Luis Boyd Primary Care Physician - Km NIELSON, Ursula Porter This Is Your Medications List amlodipine (amLODIPine 5 mg Tab) aspirin atorvastatin (atorvastatin 80 mg Tab) clonidine (cloNIDine 0.1 mg tab) diltiazem (diltiazem 30 mg Tab) isosorbide mononitrate (isosorbide mononitrate 120 mg ER Tab) lisinopril (lisinopril 20 mg Tab) metformin (metformin 500 mg Tab) metoprolol (Toprol XL 100 mg Tab-ER) omeprazole (omeprazole 20 mg Cap-DR) ranolazine (ranolazine 500 mg oral ER Tab) rivaroxaban (Xarelto 20 mg oral tablet) Procedures Performed Colonoscopy (09/20/2023), Cardiac ablation system, Cardiac catheterization, Rotator cuff repair, Tear of biceps tendon, Tonsillectomy. What to do next Scheduled Follow-Up Appointments Monday 8:00 AM EDT With: Where: [facility] [address] [place] [address]- \.br\ Medications\.br \ What How Much When Instructions\.b r\ Unchanged amlodipine (amLODIPine 5 mg Tab) By Mouth Every day\.br\ Unchanged aspirin 81 Milligram By Mouth Every day\.br\ Unchanged atorvastatin (atorvastatin 80 mg Tab) 1 Tablets By Mouth Every day\.br\ Unchanged clonidine (cloNIDine 0.1 mg tab) By Mouth 2 times a day\.br\ Unchanged diltiazem (diltiazem 30 mg Tab) See instructions take 1-2 orally as needed \.br\ Unchanged isosorbide mononitrate (isosorbide mononitrate 120 mg ER Tab) 1 Tablets By Mouth Once a day (in the morning)\.br\ Unchanged lisinopril (lisinopril 20 mg Tab) 1 Tablets By Mouth Every day\.br\ Unchanged metformin (metformin 500 mg Tab) 2 Tablets By Mouth 2 times a day TAKE TWO TABLETS BY MOUTH TWICE A DAY \.br\ Unchanged metoprolol (Toprol XL 100 mg Tab-ER) 2 Tablets By Mouth Every day\.br\ Unchanged omeprazole (omeprazole 20 mg Cap-DR) 1 Capsules By Mouth Every day\.br\ Unchanged ranolazine (ranolazine 500 mg oral ER Tab) 2 Tablets By Mouth 2 times a day\.br\ Unchanged rivaroxaban (Xarelto 20 mg oral tablet) 1 Tablets By Mouth Once a day (in the evening)\.br\ Allergies\.br\ penicillins (Hives)\.br\ Problems\.br\ Ongoing - Any problem that you are currently receiving treatment for.\.br\ Aortic aneurysm\.br\ BMI 28.0-28.9,adult \.br\ BPH (benign prostatic hyperplasia)\.b r\ CAD in [place] artery\.br\ Controlled type 2 diabetes mellitus without complication, without long-term current use of insulin\.br\ Dysuria\.br\ Excess ear wax\.br\ External bleeding hemorrhoids\.br \ Family history of kidney cancer\.br\ Former smoker\.br\ GERD without esophagitis\.br \ Gross hematuria\.br\ Hematuria\.br\ Kidney stone\.br\ Left flank pain\.br\ Longstanding persistent atrial fibrillation\.b r\ Mixed hyperlipidemia\ .br\ Non-smoker\.br\ Overweight\.br\ Personal history of kidney stones\.br\ Positive colorectal cancer screening using Cologuard test\.br\ Primary hypertension\.b r\ Screening for colon cancer\.br\ Screening for prostate cancer\.br\ Historical - Any problem that you are no longer receiving treatment for.\.br\ Atrial fibrillation\.b r\ Dyslipidemia\.b r\ Hypertension\.b r\ Metabolic syndrome\.br\ Patient Survey\.br\ You may receive a survey via text or e-mail asking about your office visit. Please share your experience with us by completing your survey. We appreciate your feedback and thank you for choosing us for your care.\.br\ \.br\ [facility] General Surgery Office/Clini c Noteon 10-04-2023 General Surgery Office/Clinic Note Chief Complaint colonoscopy follow up HPI Staff 14 day post operative follow up post colonoscopy with rectal polypectomy. History of Present Illness s/p colonoscopy with removal of 1 cm rectal tubular adenoma, due to positive Cologuard; doing well; denies abd pain or blood in stools. Review of Systems ROS - Provider Constitutional: no fever, no sweats, no weight loss. Eyes: no glasses, no blurred vision, no visual loss. ENMT: no dentures, no hoarseness, no swallowing difficulties, no hearing loss, no ear infection(s), no nose bleeds. Cardiovascular: normal blood pressure, no chest pain, regular heartbeat, no heart murmur. Respiratory: no shortness of breath, no cough, no asthma, no wheezing. Gastrointestinal: no nausea, no vomiting, no diarrhea, no constipation, no blood in stool, no change in bowel habits, no abdominal pain, no hepatitis. Genitourinary: no kidney stones, no urine infection, no dysuria. Musculoskeletal: no pain, no weakness. Skin: no changing moles, no rash, no skin lumps. Neurologic: no seizures, no epilepsy, no headache. Psychiatric: no emotional or psychiatric problem. Heme/Lymph: no bleeding problems, no anemia, no blood clots, no transfusions. Allergy/Immunologic: no swollen lymph nodes/glands, no IV drug abuse. Other: Additional ROS info: Except as noted in the above Review of Systems and in the History of Present Illness, all other systems have been reviewed and are negative or noncontributory. Assessment/Plan 1. Tubular adenoma of rectum (D12.8: Benign neoplasm of rectum) recommend surveillance colonoscopy in 3 years; call sooner if problems/questions. Follow-up No qualifying data available Problem List/Past Medical History Ongoing Aortic aneurysm BMI 28.0-28.9,adult BPH (benign prostatic hyperplasia) CAD in [place] artery Controlled type 2 diabetes mellitus without complication, without long-term current use of insulin Dysuria Excess ear wax External bleeding hemorrhoids Family history of kidney cancer Former smoker GERD without esophagitis Gross hematuria Hematuria Kidney stone Left flank pain Longstanding persistent atrial fibrillation Mixed hyperlipidemia Non-smoker Overweight Personal history of kidney stones Positive colorectal cancer screening using Cologuard test Primary hypertension Screening for colon cancer Screening for prostate cancer Tubular adenoma of rectum Historical Atrial fibrillation Dyslipidemia Hypertension Metabolic syndrome Procedure/Surgical History Colonoscopy (09/20/2023), Cardiac ablation system, Cardiac catheterization, Rotator cuff repair, Tear of biceps tendon, Tonsillectomy. Medications amLODIPine 5 mg Tab, Oral, Daily aspirin, 81 mg, Oral, Daily atorvastatin 80 mg Tab, 80 mg= 1 tab(s), Oral, Daily cloNIDine 0.1 mg tab, Oral, BID diltiazem 30 mg Tab, See Instructions isosorbide mononitrate 120 mg ER Tab, 120 mg= 1 tab(s), Oral, qAM lisinopril 20 mg Tab, 20 mg= 1 tab(s), Oral, Daily, 1 refills metformin 500 mg Tab, 1000 mg= 2 tab(s), Oral, BID, 1 refills omeprazole 20 mg Cap-DR, 20 mg= 1 cap(s), Oral, Daily, 1 refills ranolazine 500 mg oral ER Tab, 1000 mg= 2 tab(s), Oral, BID Toprol XL 100 mg Tab-ER, 200 mg= 2 tab(s), Oral, Daily Xarelto 20 mg oral tablet, 20 mg= 1 tab(s), Oral, qPM Allergies penicillins (Hives) Social History Alcohol Current, Beer, Daily, 08/29/2023 Employment/School Employed, Work/School description: [employer]. Highest education level: High school. 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 equipment: No., 09/02/2014 Substance Abuse - No Risk, 08/29/2014 Tobacco - No Risk, 08/29/2014 Former smoker, quit more than 30 days ago Tobacco Use:. Never Smokeless Tobacco Use:. Cigarettes, 1 per day. Started age 16.0 Years. Stopped age 53 Years. Household tobacco concerns: No., 08/29/2023 Family History Acute myocardial infarction: Brother. Heart failure: Mother. Immunizations Vaccine Date Status Comments influenza virus vaccine, inactivated - Not Given Postpone due to refusal SARS-CoV-2 (COVID-19) Ad26 vaccine 08/31/2021 Recorded 2022-04-01: TPV60 influenza virus vaccine, inactivated 07/23/2021 Recorded SARS-CoV-2 (COVID-19) Ad26 vaccine 12/23/2020 Recorded influenza virus vaccine, inactivated 07/30/2018 Recorded Normal [facility] Comment on above: Result Comment: Elec tronically Signed By: WILLIAM NIELSON, Jose Luis Jin\Date and Time Signed: 10/04/23 13:35 EST Reminderson 10-04-2023 Reminders - From: Kori Saldivar LPN To: N - Clinical; Sent: 10/04/2023 13:36:47 EST Show up: 08/21/2026 07:00:00 EST Subject: colonoscopy recall Due Date/Time: 09/20/2026 07:00:00 EST Reminder/Recall Patient due for surveillance colonoscopy 09/20/2026 due to history of tubular adenoma. Normal [facility] Pathology Noteon 09-27-2023 Pathology Note [id number] 4#1.00TIFF [facility] Outside Colonoscopyon 2022 Outside Colonoscopy [id number] #1.00TIFF [facility] Lab Reportson 09-21-2023 Lab Reports [id number] #1.00TIFF [facility] Physician Referralon 023 Physician Referral [id number] #1.00TIFF [facility] Physician Referralon 023 Physician Referral [id number]# 1.00TIFF [facility] Consent for Procedure/Surger yon 08-30-2023 Consent for Procedure/Surgery [id number] 8#1.00TIFF [facility] Ambulatory Visit Summaryon 10-29-2022 Ambulatory Visit Summary MARCELLE DEUTSCH :1960 Visit Date:08/29/2023 Ambulatory Visit Instructions Your Diagnosis Positive colorectal cancer screening using Cologuard test Your Care Team Attending Physician - WILLIAM NIELSON, Jose Luis Boyd Primary Care Physician - Ursula Love MD Referring Physician - Ursula Love MD This Is Your Medications List Contact prescribing physician if questions or concerns amlodipine (amLODIPine 5 mg Tab) aspirin atorvastatin (atorvastatin 80 mg Tab) clonidine (cloNIDine 0.1 mg tab) diltiazem (diltiazem 30 mg Tab) isosorbide mononitrate (isosorbide mononitrate 120 mg ER Tab) lisinopril (lisinopril 20 mg Tab) metformin (metformin 500 mg Tab) metoprolol (Toprol XL 100 mg Tab-ER) omeprazole (omeprazole 20 mg Cap-DR) ranolazine (ranolazine 500 mg oral ER Tab) rivaroxaban (Xarelto 20 mg oral tablet) Procedures Performed Cardiac ablation system, Cardiac catheterization, Rotator cuff repair, Tear of biceps tendon, Tonsillectomy. Discharge Vitals Heart Rate (Peripheral) 76 Respiratory Rate 16 Blood Pressure 190/88 Height 178 cm Height 70 in Weight 90.8 kg Weight 199.76 lb BMI 28.66 What to do next Scheduled Follow-Up Appointments Monday 8:00 AM EDT With: Where: [place] [address]- \.br\ Medications\.br \ What How Much When Instructions\.b r\ Unchanged amlodipine (amLODIPine 5 mg Tab) By Mouth Every day Contact prescribing physician if questions or concerns \.br\ Unchanged aspirin 81 Milligram By Mouth Every day Contact prescribing physician if questions or concerns \.br\ Unchanged atorvastatin (atorvastatin 80 mg Tab) 1 Tablets By Mouth Every day Contact prescribing physician if questions or concerns \.br\ Unchanged clonidine (cloNIDine 0.1 mg tab) By Mouth 2 times a day Contact prescribing physician if questions or concerns \.br\ Unchanged diltiazem (diltiazem 30 mg Tab) See instructions take 1-2 orally as needed Contact prescribing physician if questions or concerns \.br\ Unchanged isosorbide mononitrate (isosorbide mononitrate 120 mg ER Tab) 1 Tablets By Mouth Once a day (in the morning) Contact prescribing physician if questions or concerns \.br\ Unchanged lisinopril (lisinopril 20 mg Tab) 1 Tablets By Mouth Every day Contact prescribing physician if questions or concerns \.br\ Unchanged metformin (metformin 500 mg Tab) 2 Tablets By Mouth 2 times a day TAKE TWO TABLETS BY MOUTH TWICE A DAY Contact prescribing physician if questions or concerns \.br\ Unchanged metoprolol (Toprol XL 100 mg Tab-ER) 2 Tablets By Mouth Every day Contact prescribing physician if questions or concerns \.br\ Unchanged omeprazole (omeprazole 20 mg Cap-DR) 1 Capsules By Mouth Every day Contact prescribing physician if questions or concerns \.br\ Unchanged ranolazine (ranolazine 500 mg oral ER Tab) 2 Tablets By Mouth 2 times a day Contact prescribing physician if questions or concerns \.br\ Unchanged rivaroxaban (Xarelto 20 mg oral tablet) 1 Tablets By Mouth Once a day (in the evening) Contact prescribing physician if questions or concerns \.br\ Allergies\.br\ penicillins (Hives)\.br\ Problems\.br\ Ongoing - Any problem that you are currently receiving treatment for.\.br\ Aortic aneurysm\.br\ BMI 28.0-28.9,adult \.br\ BPH (benign prostatic hyperplasia)\.b r\ CAD in [place] artery\.br\ Controlled type 2 diabetes mellitus without complication, without long-term current use of insulin\.br\ Dysuria\.br\ Excess ear wax\.br\ External bleeding hemorrhoids\.br \ Family history of kidney cancer\.br\ Former smoker\.br\ GERD without esophagitis\.br \ Gross hematuria\.br\ Hematuria\.br\ Kidney stone\.br\ Left flank pain\.br\ Longstanding persistent atrial fibrillation\.b r\ Mixed hyperlipidemia\ .br\ Non-smoker\.br\ Overweight\.br\ Personal history of kidney stones\.br\ Positive colorectal cancer screening using Cologuard test\.br\ Primary hypertension\.b r\ Screening for colon cancer\.br\ Screening for prostate cancer\.br\ Historical - Any problem that you are no longer receiving treatment for.\.br\ Atrial fibrillation\.b r\ Dyslipidemia\.b r\ Hypertension\.b r\ Metabolic syndrome\.br\ Patient Survey\.br\ You may receive a survey via text or e-mail asking about your office visit. Please share your experience with us by completing your survey. We appreciate your feedback and thank you for choosing us for your care.\.br\ \.br\ [facility] Ambulatory Visit Summaryon 1 10-16-2022 Ambulatory Visit Summary MARCELLE DEUTSCH :1960 Visit Date:08/16/2023 Ambulatory Visit Instructions Your Diagnosis Kidney stone Gross hematuria BPH (benign prostatic hyperplasia) Personal history of kidney stones Former smoker Family history of kidney cancer Tests Performed Urnls Dip Stick Auto w/o Microscopy POC 10010 Your Care Team Attending Physician - Teo NIELSON, Shelley Sidhu Primary Care Physician - Ursula Love MD Referring Physician - Ursula Love MD This Is Your Medications List Contact prescribing physician if questions or concerns amlodipine (amLODIPine 5 mg Tab) aspirin atorvastatin (atorvastatin 80 mg Tab) clonidine (cloNIDine 0.1 mg tab) diltiazem (diltiazem 30 mg Tab) isosorbide mononitrate (isosorbide mononitrate 120 mg ER Tab) lisinopril (lisinopril 20 mg Tab) metformin (metformin 500 mg Tab) metoprolol (Toprol XL 100 mg Tab-ER) omeprazole (omeprazole 20 mg Cap-DR) ranolazine (ranolazine 500 mg oral ER Tab) rivaroxaban (Xarelto 20 mg oral tablet) [Image Removed: STOP]Stop taking these medications tamsulosin (Flomax 0.4 mg Cap) Procedures Performed Cardiac ablation system, Right shoulder region. Discharge Vitals Heart Rate (Peripheral) 69 Respiratory Rate 16 Blood Pressure 166/83 Height 178 cm Height 70 in Weight 90.53 kg Weight 199.166 lb BMI 28.57 What to do next Scheduled Follow-Up Appointments Monday 2:20 PM EST With: Jose Luis THOMAS MD Where: General Surgery [facility] Invalid Interpretation Code [address] [place] [address]- \.br\ Monday 8:40 AM EDT \.br\ With: Km NIELSON, Urusla Porter\.br\ Where: [facility] Patient Educationon 08-16-20 Patient Education Nephrology Dietary Guidelines to Help Prevent Kidney Stones Kidney stones are deposits of minerals and salts that form inside your kidneys. Your risk of developing kidney stones may be greater depending on your diet, your lifestyle, the medicines you take, and whether you have certain medical conditions. Most people can lower their chances of developing kidney stones by following the instructions below. Your dietitian may give you more specific instructions depending on your overall health and the type of kidney stones you tend to develop. What are tips for following this plan? Reading food labels ? Choose foods with no salt added or low-salt labels. Limit your salt (sodium) intake to less than 1,500 mg a day. ? Choose foods with calcium for each meal and snack. Try to eat about 300 mg of calcium at each meal. Foods that contain 200?500 mg of calcium a serving include: ? 8 oz (237 mL) of milk, calcium-fortifiednon -dairy milk, and calcium-fortifiedfru it juice. Calcium-fortified means that calcium has been added to these drinks. ? 8 oz (237 mL) of kefir, yogurt, and soy yogurt. ? 4 oz (114 g) of tofu. ? 1 oz (28 g) of cheese. ? 1 cup (150 g) of dried figs. ? 1 cup (91 g) of cooked broccoli. ? One 3 oz (85 g) can of sardines or mackerel. Most people need 1,000?1,500 mg of calcium a day. Talk to your dietitian about how much calcium is recommended for you. Shopping ? Buy plenty of fresh fruits and vegetables. Most people do not need to avoid fruits and vegetables, even if these foods contain nutrients that may contribute to kidney stones. ? When shopping for convenience foods, choose: ? Whole pieces of fruit. ? Pre-made salads with dressing on the side. ? Low-fat fruit and yogurt smoothies. ? Avoid buying frozen meals or prepared deli foods. These can be high in sodium. ? Look for foods with live cultures, such as yogurt and kefir. ? Choose high-fiber grains, such as whole-wheat breads, oat bran, and wheat cereals. Cooking ? Do not add salt to food when cooking. Place a salt shaker on the table and allow each person to add his or her own salt to taste. ? Use vegetable protein, such as beans, textured vegetable protein (TVP), or tofu, instead of meat in pasta, casseroles, and soups. Meal planning ? Eat less salt, if told by your dietitian. To do this: ? Avoid eating processed or pre-made food. ? Avoid eating fast food. ? Eat less animal protein, including cheese, meat, poultry, or fish, if told by your dietitian. To do this: ? Limit the number of times you have meat, poultry, fish, or cheese each week. Eat a diet free of meat at least 2 days a week. ? Eat only one serving each day of meat, poultry, fish, or seafood. ? When you prepare animal protein, cut pieces into small portion sizes. For most meat and fish, one serving is about the size of the palm of your hand. ? Eat at least five servings of fresh fruits and vegetables each day. To do this: ? Keep fruits and vegetables on hand for snacks. ? Eat one piece of fruit or a handful of berries with breakfast. ? Have a salad and fruit at lunch. ? Have two kinds of vegetables at dinner. ? Limit foods that are high in a substance called oxalate. These include: ? Spinach (cooked), rhubarb, beets, sweet potatoes, and [place] chard. ? Peanuts. ? Potato chips, romanian fries, and baked potatoes with skin on. ? Nuts and nut products. ? Chocolate. ? If you regularly take a diuretic medicine, make sure to eat at least 1 or 2 servings of fruits or vegetables that are high in potassium each day. These include: ? Avocado. ? Banana. ? Reynolds, prune, carrot, or tomato juice. ? Baked potato. ? Cabbage. ? Beans and split peas. Lifestyle ? Drink enough fluid to keep your urine pale yellow. This is the most important thing you can do. Spread your fluid intake throughout the day. ? If you drink alcohol: ? Limit how much you use to: ? 0?1 drink a day for women who are not . ? 0?2 drinks a day for men. ? Be aware of how much alcohol is in your drink. In the [place] one drink equals one 12 oz bottle of beer (355 mL), one 5 oz glass of wine (148 mL), or one 1? oz glass of hard liquor (44 mL). ? Lose weight if told by your health care provider. Work with your dietitian to find an eating plan and weight loss strategies that work best for you. General information ? Talk to your health care provider and dietitian about taking daily supplements. You may be told the following depending on your health and the cause of your kidney stones: ? Not to take supplements with vitamin C. ? To take a calcium supplement. ? To take a daily probiotic supplement. ? To take other supplements such as magnesium, fish oil, or vitamin B6. ? Take uhbd-ldd-mrndckx and prescription medicines only as told by your health care provider. These include supplements. What foods should I limit? Limit your in (more content not included)... Normal [facility] Screenson 08-16-2023 Screens [id number] #1.00TIFF Normal [facility] Urology Office/Clinic Noteon 08-16-2023 Urology Office/Clinic Note Chief Complaint kidney stones HPI Staff Evaluation requested by Dr Kelton Love due to Kidney Stone. Pt is a new pt, never before seen in our office. Per PCP encounter- history of kidney stones and kidney infections. Monday (07/17/23) afternoon did pee straight blood for a seconds and then it did get better. Yesterday he did noticed 2 small specs bottom of toilet not sure if he did pass a kidney stone. Continues to have some aching left back pain. Pt was given Tamsulosin 0.4mg qd #10 from PCP. Patient has since finished medication. Did call PCP 08/01/23 requesting xrays. (Nothing on [facility]) CT ap wo 08/07/23 UA 08/04/23 PSA 07/03/23 0.2 A1C 07/03/23 6.8% Painful urination: no Blood in urine: yes patient did have bright red blood beginning of July, denies any blood since. Pt was having some mild to moderate flank pain at the same time. pt states he passed about 5-6 stones and has not had any blood since. Pt was also treated with cipro from his pcp. urinary frequency: no urinary urgency: no incomplete emptying: no nocturia: yes 1x per night but drinks up until bedtime. weak stream: no post void dribbling: no urinary incontinence: no History of Present Illness Tests reviewed: reviewed UA and External Records. I have reviewed the previous health record information and history for this patient from External Provider. I have reviewed and verified the staff HPI to be accurate for this encounter. Review of Systems PHQ Score Initial Depression Screen Score: 0 ROS - Provider Constitutional: denies weight loss, denies hot flashes. Eyes: denies eye problems. Gastrointestinal: denies nausea, denies vomiting. Cardiovascular: denies chest pain or angina. Integumentary: no dryness Musculoskeletal: denies musculoskeletal symptoms. ENMT: denies otolaryngeal symptoms. Respiratory: no shortness of breath. Heme/Lymph: denies easy bleeding tendency, denies easy bruising tendency. Psychiatric: no confusion, no anxiety. Genitourinary: See HPI. Physical Exam Vitals & Measurements HR: 69(Peripheral) RR: 16 BP: 166/83 HT: 70 in HT: 178 cm WT: 90.53 kg WT: 199.166 lb BMI: 28.57 General Appearance: alert, no distress, well nourished, well developed male. Head: normocephalic . Eyes: normal orbit and globe. ENMT: normal examination of external ears. Chest: symmetric chest rise, respirations non labored. Cardiovascular: regular rate and rhythm. Abdomen: soft, non distended, no tenderness Genitourinary: Flank Pain: none. Bladder: nonpalpable. Skin: warm, dry, no bruising. Psychiatric: cooperative, affect appropriate for age, normal judgement, euthymic mood. Assessment/Plan Marcelle is a 63 yo male new patient, referred due to kidney stones and an enlarged prostate. A1C 07/03/23 6.8% 1. Kidney stone (N20.0: Calculus of kidney) Per PCP encounter- history of kidney stones and kidney infections (not culture proven). Monday (07/17/23) afternoon did pee straight blood for a seconds and then it did get better. Noticed 2 small specs bottom of toilet, unable to catch stones. Similar to last stone event in . Pt was given Tamsulosin 0.4mg qd #10 from PCP. Patient has since finished medication. Did call PCP 08/01/23 requesting xrays. (Nothing on [facility]) CT AP w/o Con 08/07/23 - no stones or hydro Pt states that he had passed little pencil lead size pieces prior to CT scan. Pt states that he had felt tinges prior to passing the stones. Counseled pt on the causes of stones and stone preventive measures. Discussed doing a metabolic workup. Pt states he does not feel this is needed, feels the stones were from dehydration, drinking plenty of fluid now. Advised pt that we can continue to monitor the stones with repeat imaging, or he can call us when he feels he needs to be seen. Follow up as needed. All questions/concerns were discussed. Pt to call the office if he encounters any issues prior. Pt acknowledges understanding. -Dietary Modifications. -Increase fluid intake, 90oz/day, clear fluids, lemon/wiyot 2. Gross hematuria (R31.0: Gross hematuria) CT AP w/o Con 08/07/23 - bladder wall thickening UA today is negative for blood and infection. Patient did have bright red blood beginning of July, denies any blood since. Pt was having some mild to moderate flank pain at the same time. pt states he passed about 5-6 stones and has not had any blood since. Pt was also treated with Cipro from his PCP for persistent flank pain, no UTI noted on workup. Pt states that he has never seen any blood outside from the stone event. Discussed potential etiologies of hematuria including stone event. Given isolated event during stone event, risks/benefits of workup discussed. Former smoker, on Xarelto now. -Will hold off of hematuria workup given benign etiology identified - Advised pt that if he sees blood in his urine in the future without stones, he is to call our office and have a hematuria workup. 3. BPH (benign prostatic (more content not included)... Normal [facility] Comment on above: Result Comment: Elec tronically Signed By: Shelley Bruce MD\.br\Date and Time Signed: 08/16/23 09:03 EDT\.br\Electronically Co-Signed By: Ale Parekh.br\Date and Time Co-Signed: 08/16/23 08:[address] Abdomen/Pelvis w/o Wendy horner 08-07-2023 CT Abdomen/Pelvis w/o Contrast Exam Date/Time: 08/07/2023 15:54 EDT Reason for Exam: N20.0;Pain Report IMPRESSION: No renal/ureteral calculi. No hydronephrosis/hydro ureter. Urinary bladder wall thickening may be secondary to partial decompression. However, other etiologies including postobstructive secondary to enlarged prostate, as well as inflammatory/infecti ous must BE considered. Infrarenal abdominal aortic aneurysm. Follow-up is discussed below. Splenomegaly. CT of the abdomen and pelvis without intravenous contrast medium. History: Pain, N20.0. Left flank pain. Hematuria. History renal calculi. Technical Factors: CT imaging of the abdomen and pelvis were obtained and formatted as 5 mm contiguous axial images from the domes of the diaphragm to the symphysis pubis. Sagittal and coronal reconstructions were also obtained. Oral contrast medium: None. Intravenous contrast medium: None. Comparison: None Findings: Lungs: Imaged lung bases are clear. Liver: Normal in size, shape, and attenuation. Bile Ducts: Normal in caliber. Gallbladder: No stones or wall thickening. Pancreas: Normal without masses, cysts, ductal dilatation or calcification. Spleen: Enlarged with AP dimension 16 cm. No masses or calcifications. No splenules. Kidneys: Normal in size. No hydronephrosis, masses, or stones. Bilateral renal vascular calcification. Mild perinephric fat stranding bilaterally. Adrenals: Normal. Small bowel: Normal in caliber. Report Appendix: Normal. Colon: Normal in caliber. Peritoneum: No ascites, free air, or fluid collections. Vessels: AP and transverse dimension infrarenal abdominal aorta measures 3.1 x 3.7 cm. Diffuse aortoiliac atherosclerotic change with calcification found at ostium of celiac artery, superior mesenteric artery, bilateral single main renal arteries, and inferior mesenteric artery. Lymph nodes: Retroperitoneal: No enlarged retroperitoneal lymph nodes. Mesenteric: No enlarged mesenteric lymph nodes. Pelvic: No enlarged pelvic lymph nodes. Ureters: Normal in course and caliber. No calcifications. Bladder: Partially decompressed. Wall thickening measuring 7 mm. Prostate: Enlarged with transverse diameter 5.7 cm. Prostate extends to base of urinary bladder. Abdominal Wall: No hernia identified. No diastasis of rectus musculature. No edema or masses. Bones: No bone lesions. No degenerative changes. No post operative changes. ........ [employer]Y OF VASC[employer] AAA FOLLOW-UP RECOMMENDATIONS (2009): 2.6 to 2.9 cm: Every 5 years* 3.0 to 3.4 cm: Every 3 years 3.5 to 4.4 cm: Every 12 months 4.5 to 5.4 cm: Every 6 months \X2265\5.5 cm: Referral to vascular surgeon *For aortas with maximum diameter of 2.6 to 2.9 cm meeting the criteria for AAA (\X2265\1.5 times proximal normal segment). Vascular consultation recommended for AAA measuring \X2265\[address] scans at this facility use dose modulation, iterative reconstruction, and/or weight based dosing when appropriate to reduce radiation dose to as low as reasonably achievable. Report Ordering Provider: Ursula Love FINAL REPORT Dictated: 08/07/2023 4:23 pm Zach Bourne MD Signed (Electronic Signature): 08/07/2023 4:23 pm Signed by: Zach Bourne MD Transcribed by: LUDWIN Technologist: ELIO Technical Comments Rectal Contrast Given? No Oral contrast amount in ml's: 0 Normal [facility] Consent for Treatmenton 07-17 Consent for Treatment [id number] #1.00TIFF Normal [facility] Ambulatory Visit Summaryon 1 Ambulatory Visit Summary MARCELLE DEUTSCH Maria D :1960 Visit Date:08/04/2023 Ambulatory Visit Instructions Your Care Team Attending Physician - Karen Deleon Primary Care Physician - Ursula Love MD This Is Your Medications List amlodipine (amLODIPine 5 mg Tab) aspirin atorvastatin (atorvastatin 80 mg Tab) clonidine (cloNIDine 0.1 mg tab) diltiazem (diltiazem 30 mg Tab) isosorbide mononitrate (isosorbide mononitrate 120 mg ER Tab) lisinopril (lisinopril 20 mg Tab) metformin (metformin 500 mg Tab) metoprolol (Toprol XL 100 mg Tab-ER) omeprazole (omeprazole 20 mg Cap-DR) ranolazine (ranolazine 500 mg oral ER Tab) rivaroxaban (Xarelto 20 mg oral tablet) tamsulosin (Flomax 0.4 mg Cap) Procedures Performed Right shoulder region. What to do next Scheduled Follow-Up Appointments Monday 2:20 PM EST With: Jose Luis THOMAS MD Where: General Surgery William/Dajuan [facility] Invalid Interpretation Code [address] [place] [address]- \.br\ Monday 8:40 AM EDT \.br\ With: Km NIELSON, Ursula Porter\.br\ Where: [facility] Nurse Consultation Noteon Nurse Consultation Note Physical Exam pt c/o flank pain, urine collected per verbal order Assessment/Plan Flank pain (R10.9: Unspecified abdominal pain) Medications amLODIPine 5 mg Tab, Oral, Daily aspirin, 81 mg, Oral, Daily atorvastatin 80 mg Tab, 80 mg= 1 tab(s), Oral, Daily cloNIDine 0.1 mg tab, Oral, BID diltiazem 30 mg Tab, See Instructions Flomax 0.4 mg Cap, 0.4 mg= 1 cap(s), Oral, Daily isosorbide mononitrate 120 mg ER Tab, 120 mg= 1 tab(s), Oral, qAM lisinopril 20 mg Tab, 20 mg= 1 tab(s), Oral, Daily, 1 refills metformin 500 mg Tab, 1000 mg= 2 tab(s), Oral, BID, 1 refills omeprazole 20 mg Cap-DR, 20 mg= 1 cap(s), Oral, Daily, 1 refills ranolazine 500 mg oral ER Tab, 1000 mg= 2 tab(s), Oral, BID Toprol XL 100 mg Tab-ER, 200 mg= 2 tab(s), Oral, Daily Xarelto 20 mg oral tablet, 20 mg= 1 tab(s), Oral, qPM Allergies penicillins Immunizations Vaccine Date Status Comments influenza virus vaccine, inactivated - Not Given Postpone due to refusal SARS-CoV-2 (COVID-19) Ad26 vaccine 08/31/2021 Recorded 2022-04-01: TPV60 influenza virus vaccine, inactivated 07/23/2021 Recorded SARS-CoV-2 (COVID-19) Ad26 vaccine 12/23/2020 Recorded influenza virus vaccine, inactivated 07/30/2018 Recorded Normal [facility] URINALYSISOrdered By: Isaiah Garcia on 08-04-2023 Bacteria LM Ql (Urine sed) Trace /HPF Normal Trace/HPF [facility] UA Auto SS Bilirubin Ql (U) Negative (08/04/23 2:10 PM) Normal Negative [facility] UA Auto SS Clarity (U) Clear (08/04/23 2:10 PM) Normal Clear [facility] UA Auto SS Color (U) Yellow (08/04/23 2:10 PM) Normal Yellow [facility] UA Auto SS Crystals LM Ql (Urine sed) Present (08/04/23 2:10 PM) Normal [facility] UA Auto SS Epithelial cells.squamous LM.HPF (Urine sed) [#/Area] 0-2 /HPF Normal 0-2/HPF [facility] UA Aut o SS Glucose Test strip (U) [Mass/Vol] Negative (08/04/23 2:10 PM) Normal Negative [facility] UA Auto SS Hemoglobin Ql (U) Negative (08/04/23 2:10 PM) Normal Negative [facility] UA Auto SS Ketones (U) [Mass/Vol] Negative (08/04/23 2:10 PM) Normal Negative [facility] UA Auto SS Penelope.plasma/Lithiu m.RBC (Bld) [Mass ratio] 0-3 /HPF Normal 0-3/HPF [facility] UA Auto SS Nitrite Ql (U) Negative (08/04/23 2:10 PM) Normal Negative [facility] UA Auto SS pH (U) 6.0 *NA* (08/04/23 2:10 PM) Invalid Interpretation Code 5.0 - 9.0 [facility] UA Auto SS Protein (U) [Mass/Vol] Negative (08/04/23 2:10 PM) Normal Negative [facility] UA Auto SS Specific gravity (U) [Rel density] <=1.005 *NA* (08/04/23 2:10 PM) Invalid Interpretation Code 1.005 - 1.030 [facility] UA Auto SS UA Spec Desc Clean Catch (08/04/23 2:10 PM) Normal [facility] UA Auto SS Urobilinogen Qn (U) 0.4151504 {Denny'U}/dL Normal 0.0 - 1.0 EU/dL [facility] UA Auto SS WBC Auto Ql (U) Negative (08/04/23 2:10 PM) Normal Negative [facility] UA Auto SS WBC LM.HPF (Urine sed) [#/Area] 0-5 /HPF Normal 0-5/HPF [facility] UA Auto SS Urinalysison 08-04-2023 Bacteria LM Ql (Urine sed) TRACE Normal Trace [facility] Comment on above: Performed By: #### 1 [id number] ####[facility] [address] [place] [address] Bilirubin Ql (U) Negative Normal Negative [facility] Comment on above: Performed By: #### 1 [id number] ####[facility] [address] [place] [address] Clarity (U) CLEAR Normal Clear [facility] Comment on above: Performed By: #### 1 [id number] ####[facility] [address] [place] [address] Color (U) YELLOW Normal Yellow [facility] Comment on above: Performed By: #### 1 [id number] ####[facility] [address] [place] [address] Crystals LM Ql (Urine sed) Present Normal [facility] Comment on above: Performed By: #### 1 [id number] ####[facility] [address] [place] [address] Epithelial cells.squamous LM.HPF (Urine sed) [#/Area] 0-2 Normal 0-2 [facility] Comment on above: Performed By: #### 1 [id number] ####[facility] [address] [place] [address] Glucose Test strip (U) [Mass/Vol] Negative Normal Negative [facility] Comment on above: Performed By: #### 1 [id number] ####[facility] [address] [place] [address] Hemoglobin Ql (U) Negative Normal Negative [facility] Comment on above: Performed By: #### 1 [id number] ####[facility] [address] [place] [address] Ketones (U) [Mass/Vol] Negative Normal Negative [facility] Comment on above: Performed By: #### 1 [id number] ####[facility] [address] [place] [address] Penelope.plasma/Lithiu m.RBC (Bld) [Mass ratio] 0-3 Normal 0-3 [facility] Comment on above: Performed By: #### 1 [id number] ####[facility] [address] [place] [address] Nitrite Ql (U) Negative Normal Negative [facility] Comment on above: Performed By: #### 1 [id number] ####[address] [address] pH (U) 6.0 [pH] Invalid Interpretation Code 5.0-9.0 [facility] Comment on above: Performed By: #### 1 [id number] ####[facility] [address] [place] [address] Protein (U) [Mass/Vol] Negative Normal Negative [facility] Comment on above: Performed By: #### 1 [id number] ####[address] [address] Specific gravity (U) [Rel density] <=1.005 Invalid Interpretation Code 1.005-1.030 [facility] Comment on above: Performed By: #### 1 [id number] ####[facility] [address] [place] [address] Type of Urine collection method Clean Catch Normal [facility] Comment on above: Performed By: #### 1 [id number] ####[facility] [address] [place] [address] Urobilinogen Qn (U) 0.2 {Denny'U}/dL Normal 0.0-1.0 [facility] Comment on above: Performed By: #### 1 [id number] ####[facility] [address] [place] [address] WBC Auto Ql (U) Negative Normal Negative [facility] Comment on above: Performed By: #### 1 [id number] ####[facility] [address] [place] [address] WBC LM.HPF (Urine sed) [#/Area] 0-5 Normal 0-5 [facility] Comment on above: Performed By: #### 1 [id number] ####[facility] [address] [place] [address] Physician Referralon 023 Physician Referral [id number] #1.00TIFF Normal [facility] Lab Reportson 08-02-2023 Lab Reports [id number] #1.00TIFF Normal [facility] Ambulatory Visit Summaryon Ambulatory Visit Summary MARCELLE DEUTSCH :1960 Visit Date:07/19/2023 Ambulatory Visit Instructions Your Diagnosis BMI 28.0-28.9,adult Non-smoker Hematuria Kidney stone Left flank pain Dysuria Tests Performed Urnls Dip Stick Non-Auto w/o Micrscpy POC 17072 Your Care Team Attending Physician - Karen Deleon Primary Care Physician - Ursula Love MD This Is Your Medications List amlodipine (amLODIPine 5 mg Tab) aspirin atorvastatin (atorvastatin 80 mg Tab) clonidine (cloNIDine 0.1 mg tab) diltiazem (diltiazem 30 mg Tab) isosorbide mononitrate (isosorbide mononitrate 120 mg ER Tab) lisinopril (lisinopril 20 mg Tab) metformin (metformin 500 mg Tab) metoprolol (Toprol XL 100 mg Tab-ER) omeprazole (omeprazole 20 mg Cap-DR) ranolazine (ranolazine 500 mg oral ER Tab) rivaroxaban (Xarelto 20 mg oral tablet) tamsulosin (Flomax 0.4 mg Cap) Procedures Performed Right shoulder region. Discharge Vitals Heart Rate (Peripheral) 60 Respiratory Rate 18 Blood Pressure 182/88 Height 178 cm Height 70 in Weight 89.25 kg Weight 196.35 lb BMI 28.17 What to do next Scheduled Follow-Up Appointments Monday 8:00 AM EDT With: Where: [facility] Normal [address] [place] [address]- \.br\ Medications\.br \ What How Much When Why Instructions\.b r\ New tamsulosin (Flomax 0.4 mg Cap) 1 Capsules By Mouth Every day BMI 28.0-28.9,adult Non-smoker Hematuria Kidney stone Left flank pain Dysuria Pickup at [facility]/pharmacy #[id number]\.br\ Unchanged amlodipine (amLODIPine 5 mg Tab) By Mouth Every day\.br\ Unchanged aspirin 81 Milligram By Mouth Every day\.br\ Unchanged atorvastatin (atorvastatin 80 mg Tab) 1 Tablets By Mouth Every day\.br\ Unchanged clonidine (cloNIDine 0.1 mg tab) By Mouth 2 times a day\.br\ Unchanged diltiazem (diltiazem 30 mg Tab) See instructions take 1-2 orally as needed \.br\ Unchanged isosorbide mononitrate (isosorbide mononitrate 120 mg ER Tab) 1 Tablets By Mouth Once a day (in the morning)\.br\ Unchanged lisinopril (lisinopril 20 mg Tab) 1 Tablets By Mouth Every day\.br\ Unchanged metformin (metformin 500 mg Tab) 2 Tablets By Mouth 2 times a day TAKE TWO TABLETS BY MOUTH TWICE A DAY \.br\ Unchanged metoprolol (Toprol XL 100 mg Tab-ER) 2 Tablets By Mouth Every day\.br\ Unchanged omeprazole (omeprazole 20 mg Cap-DR) 1 Capsules By Mouth Every day\.br\ Unchanged ranolazine (ranolazine 500 mg oral ER Tab) 2 Tablets By Mouth 2 times a day\.br\ Unchanged rivaroxaban (Xarelto 20 mg oral tablet) 1 Tablets By Mouth Once a day (in the evening)\.br\ Pharmacy Information\.br \ [id number]: [address], [place] [id number] [phone]\.br\ Test Results\.br\ Urnls Dip Stick Non-Auto w/o Micrscpy POC 57236 (07/19/2023)\.b r\ Bilirubin Urine Dipstick - Negative\.br\ Blood Urine Dipstick - 3+ Large\.br\ Glucose Urine Dipstick - Negative\.br\ Ketones Urine Dipstick - Negative\.br\ Leukocytes Urine Dipstick - Negative\.br\ Nitrite Urine Dipstick - Negative\.br\ Protein Urine Dipstick - Negative\.br\ Specific [place] Urine Dipstick - <=1.005\.br\ Urine Appearance Urine Dipstick - Clear\.br\ Urine Color Urine Dipstick - Light yellow\.br\ Urobilinogen Urine Dipstick - Normal 0.2-1 EU/dl\.br\ pH Urine Dipstick - 7\.br\ Allergies\.br\ penicillins\.br \ Problems\.br\ Ongoing - Any problem that you are currently receiving treatment for.\.br\ BMI 28.0-28.9,adult \.br\ CAD in [place] artery\.br\ Controlled type 2 diabetes mellitus without complication, without long-term current use of insulin\.br\ Dysuria\.br\ Excess ear wax\.br\ GERD without esophagitis\.br \ Hematuria\.br\ Kidney stone\.br\ Left flank pain\.br\ Longstanding persistent atrial fibrillation\.b r\ Mixed hyperlipidemia\ .br\ Non-smoker\.br\ Primary hypertension\.b r\ Screening for colon cancer\.br\ Screening for prostate cancer\.br\ Historical - Any problem that you are no longer receiving treatment for.\.br\ Atrial fibrillation\.b r\ Dyslipidemia\.b r\ Hypertension\.b r\ Metabolic syndrome\.br\ \.br\ [facility] Family Medicine Office/Clini c Noteon 07-19-2023 Family Medicine Office/Clinic Note HPI Staff Marcelle is a 63 year old male presenting for acute visit Onset: 3 days ago Location: left lower back Characteristics: burning with urination Questions/Concerns: history of kidney stones and kidney infections. Monday afternoon did pee straight blood for a seconds and then it did get better. Yesterday he did noticed 2 small specs bottom of toilet not sure if he did pass a kidney stone. Continues to have some aching left back pain. History of Present Illness pt presents with hematuria and left flank pain Review of Systems PHQ Score Initial Depression Screen Score: 0 ROS - Provider Constitutional: no fever, no chills, no sweats, no fatigue Respiratory: no shortness of breath, no cough, no orthopnea, no wheezing. Cardiovascular: no chest pain, no palpitations, no edema. Neurologic: no headache, no dizziness, no numbness, no weakness. left back pain, blood in urine Physical Exam Vitals & Measurements HR: 60(Peripheral) RR: 18 BP: 182/88 SpO2: 98% HT: 70 in HT: 178 cm WT: 89.25 kg WT: 196.35 lb BMI: 28.17 General: alert, no acute distress ENMT: oral mucosa moist, no pharyngeal erythema or exudate Cardiovascular: regular rate and rhythm, normal peripheral perfusion Respiratory: Lungs CTA, respirations non labored Extremities: no deformity, no trauma Neurological: oriented x 4, LOC appropriate for age, CN II-XII intact, motor strength equal & normal bilaterally, speech normal Assessment/Plan 1. Left flank pain (R10.9: Unspecified abdominal pain) left flank tenderness. pt states it is improving though Ordered: tamsulosin, 0.4 mg = 1 cap(s), Oral, Daily, # 10 cap(s), Refills(s) 0, Pharmacy: [facility]/pharmacy #[id number], 178, cm, 07/19/23 11:20:00 EDT, Height/Length Dosing, 89.2, kg, 07/19/23 11:20:00 EDT, Weight Dosing Urnls Dip Stick Non-Auto w/o Micrscpy POC 92919 2. Hematuria (R31.9: Hematuria, unspecified) large blood in urinalysis in office. everything else negative Ordered: tamsulosin, 0.4 mg = 1 cap(s), Oral, Daily, # 10 cap(s), Refills(s) 0, Pharmacy: [facility]/pharmacy #[id number], 178, cm, 07/19/23 11:20:00 EDT, Height/Length Dosing, 89.2, kg, 07/19/23 11:20:00 EDT, Weight Dosing Urnls Dip Stick Non-Auto w/o Micrscpy POC 16438 3. Kidney stone (N20.0: Calculus of kidney) will order flomax. if symptoms worsen will order KUB Ordered: tamsulosin, 0.4 mg = 1 cap(s), Oral, Daily, # 10 cap(s), Refills(s) 0, Pharmacy: [facility]/pharmacy #[id number], 178, cm, 07/19/23 11:20:00 EDT, Height/Length Dosing, 89.2, kg, 07/19/23 11:20:00 EDT, Weight Dosing 4. Dysuria (R30.0: Dysuria) pt states the pain is improving Ordered: tamsulosin, 0.4 mg = 1 cap(s), Oral, Daily, # 10 cap(s), Refills(s) 0, Pharmacy: [facility]/pharmacy #[id number], 178, cm, 07/19/23 11:20:00 EDT, Height/Length Dosing, 89.2, kg, 07/19/23 11:20:00 EDT, Weight Dosing Urnls Dip Stick Non-Auto w/o Micrscpy POC 47764 5. Non-smoker (Z78.9: Other specified health status) continue not smoking Ordered: tamsulosin, 0.4 mg = 1 cap(s), Oral, Daily, # 10 cap(s), Refills(s) 0, Pharmacy: [facility]/pharmacy #[id number], 178, cm, 07/19/23 11:20:00 EDT, Height/Length Dosing, 89.2, kg, 07/19/23 11:20:00 EDT, Weight Dosing Urnls Dip Stick Non-Auto w/o Micrscpy POC 04819 6. BMI 28.0-28.9,adult (Z68.28: Body mass index [BMI] 28.0-28.9, adult) BMI education complete Ordered: tamsulosin, 0.4 mg = 1 cap(s), Oral, Daily, # 10 cap(s), Refills(s) 0, Pharmacy: [facility]/pharmacy #[id number], 178, cm, 07/19/23 11:20:00 EDT, Height/Length Dosing, 89.2, kg, 07/19/23 11:20:00 EDT, Weight Dosing Urnls Dip Stick Non-Auto w/o Micrscpy POC 87593 Follow-up No qualifying data available Problem List/Past Medical History Ongoing BMI 28.0-28.9,adult CAD in [place] artery Controlled type 2 diabetes mellitus without complication, without long-term current use of insulin Dysuria Excess ear wax GERD without esophagitis Hematuria Kidney stone Left flank pain Longstanding persistent atrial fibrillation Mixed hyperlipidemia Non-smoker Primary hypertension Screening for colon cancer Screening for prostate cancer Historical Atrial fibrillation Dyslipidemia Hypertension Metabolic syndrome Procedure/Surgical History Right shoulder region. Medications amLODIPine 5 mg Tab, Oral, Daily aspirin, 81 mg, Oral, Daily atorvastatin 80 mg Tab, 80 mg= 1 tab(s), Oral, Daily cloNIDine 0.1 mg tab, Oral, BID diltiazem 30 mg Tab, See Instructions Flomax 0.4 mg Cap, 0.4 mg= 1 cap(s), Oral, Daily isosorbide mononitrate 120 mg ER Tab, 120 mg= 1 tab(s), Oral, qAM lisinopril 20 mg Tab, 20 mg= 1 tab(s), Oral, Daily, 1 refills metformin 500 mg Tab, 1000 mg= 2 tab(s), Oral, BID, 1 refills omeprazole 20 mg Cap-DR, 20 mg= 1 cap(s), Oral, Daily, 1 refills ranolazine 500 mg oral ER Tab, 1000 mg= 2 tab(s), Oral, BID Toprol XL 100 mg Tab-ER, 200 mg= 2 tab(s), Oral, Daily Xarelto 20 mg oral tablet, 20 mg= 1 tab(s), Oral, qPM Allergies penicillins Social History Alcohol - Low Risk, 08/29/ (more content not included)... Normal [facility] Comment on above: Result Comment: Elec tronically Signed By: Karen Deleon\.jp\Date and Time Signed: 07/19/23 17:48 EDT PSA Free & Totalon 3 Free PSA [Mass/Vol] <0.1 Invalid Interpretation Code [facility] Comment on above: Result Comment: The concentration of free PSA and total PSA determined with assays from different manufacturers can vary due to differences in assay methods and specificity. Values obtained with different manpower development advisor's assays cannot be used interchangeably. The methodology used to obtain this result was chemiluminescence using [employer] Access Hybritech PSA reagent and Access Hybritech free PSA reagent. Performed By: #### 1 [id number], [id number] #### [facility] [address] [place] [address] Free PSA/Total PSA [Mass fraction] [facility] Abnormal >=25.0 [facility] Comment on above: Result Comment: Resu lt verified by Discern Rule. Performed result [facility] (Unable to Calculate) was sent as an Alpha code due the inability to calculate a valid numeric value. The percentage of free PSA is lower in serum samples from patients with prostate cancer than in serum samples from patients with normal prostate or benign disease. Low percentages of free PSA are established as indicators of prostate cancer. The 25% free PSA cutoff detected 95% of cancers while avoiding 20% of Unnecessary biopsies. SO, 1998; 279:1542-7 Performed By: #### 1 [id number], [id number] #### [facility] [address] [place] [address] Prostate specific Ag [Mass/Vol] 0.2 ng/mL Normal 0.1-3.5 [facility] Comment on above: Result Comment: The concentration of PSA determined by different manufacturers can vary due to differences in assay methods and reagent specificity. Values obtained from different assay methods cannot be used interchangeably. The methodology used for this result was chemiluminescence using [employer]'s Access Hybritech PSA reagent. Performed By: #### 1 [id number], [id number] #### [facility] [address] [place] [address] CHEMISTRYOrdered By: Julien merida on 07-04-2023 Albumin DL <= 20 mg/L (U) [Mass/Vol] microgram/mL Normal 0.0 - 19.0 mcg/mL [facility] Remisol Albumin Elph (U) [Mass fraction] mg/dL Invalid Interpretation Code [facility] Remisol Creatinine (U) [Mass/Vol] 17.7 mg/dL Invalid Interpretation Code [facility] Remisol U Prot/Creat Ratio [facility] Invalid Interpretation Code 0.00 - 200.00 [facility] Remisol U Microalbon 07-04-2023 Albumin DL <= 20 mg/L (U) [Mass/Vol] mg/dL Normal 0.0-19.0 [facility] Comment on above: Performed By: #### 1 [id number] ####[facility] [address] [place] [address] U Protein/Creat Ratioon 09 Albumin Elph (U) [Mass fraction] <6.0 Invalid Interpretation Code [facility] Comment on above: Result Comment: The reference range and other method performance specifications have not been established for this test; results should be integrated into the clinical context for interpretation. Performed By: #### 1 [id number] ####[facility] [address] [place] [address] Creatinine (U) [Mass/Vol] 17.7 mg/dL Invalid Interpretation Code [facility] Comment on above: Result Comment: The reference range and other method performance specifications have not been established for this test; results should be integrated into the clinical context for interpretation. Performed By: #### 1 [id number], [id number] ####[facility] [address] [place] [address] U Prot/Creat Ratio [facility] Invalid Interpretation Code .00-200.00 [facility] Comment on above: Performed By: #### 1 [id number], [id number] ####[facility] [address] [place] [address] Ambulatory Visit Summaryon 0 07-03-2023 Ambulatory Visit Summary MARCELLE DEUTSCH :1960 Visit Date:07/03/2023 Ambulatory Visit Instructions Your Diagnosis Primary hypertension Longstanding persistent atrial fibrillation Mixed hyperlipidemia Controlled type 2 diabetes mellitus without complication, without long-term current use of insulin BMI 28.0-28.9,adult Overweight Screening for prostate cancer Screening for colon cancer Excess ear wax GERD without esophagitis Your Care Team Attending Physician - Ursula Love MD Primary Care Physician - Ursula Love MD This Is Your Medications List diltiazem (diltiazem 30 mg Tab) omeprazole (omeprazole 20 mg Cap-DR) rivaroxaban (Xarelto 20 mg oral tablet) Contact prescribing physician if questions or concerns amlodipine (amLODIPine 5 mg Tab) aspirin atorvastatin (atorvastatin 80 mg Tab) clonidine (cloNIDine 0.1 mg tab) diltiazem (Cardizem 30 mg Tab) isosorbide mononitrate (isosorbide mononitrate 120 mg ER Tab) isosorbide mononitrate (isosorbide mononitrate 120 mg ER Tab) lisinopril (lisinopril 20 mg Tab) metformin (metformin 500 mg Tab) metoprolol (Toprol XL 100 mg Tab-ER) ranolazine (ranolazine 500 mg oral ER Tab) Procedures Performed Right shoulder region. Discharge Vitals Heart Rate (Peripheral) 70 Respiratory Rate 14 Blood Pressure 122/75 Height 70 in Height 178 cm Weight 198 lb Weight 90 kg BMI 28.41 What to do next Scheduled Follow-Up Appointments Monday 8:00 AM EDT With: Where: [facility] [place] [id number]- \.br\ Medications\.br \ What How Much When Instructions\.b r\ Changed omeprazole (omeprazole 20 mg Cap-DR) 1 Capsules By Mouth Every day Pickup at [facility]\.br\ Unchanged diltiazem (diltiazem 30 mg Tab) See instructions take 1-2 orally as needed \.br\ Unchanged rivaroxaban (Xarelto 20 mg oral tablet) 1 Tablets By Mouth Once a day (in the evening)\.br\ Unchanged amlodipine (amLODIPine 5 mg Tab) By Mouth Every day Contact prescribing physician if questions or concerns \.br\ Unchanged aspirin 81 Milligram By Mouth Every day Contact prescribing physician if questions or concerns \.br\ Unchanged atorvastatin (atorvastatin 80 mg Tab) 1 Tablets By Mouth Every day Contact prescribing physician if questions or concerns \.br\ Unchanged clonidine (cloNIDine 0.1 mg tab) By Mouth 2 times a day Contact prescribing physician if questions or concerns \.br\ Unchanged diltiazem (Cardizem 30 mg Tab) By Mouth As Directed Contact prescribing physician if questions or concerns \.br\ Unchanged isosorbide mononitrate (isosorbide mononitrate 120 mg ER Tab) 1 Tablets By Mouth Once a day (in the morning) Contact prescribing physician if questions or concerns \.br\ Unchanged isosorbide mononitrate (isosorbide mononitrate 120 mg ER Tab) 1 Tablets By Mouth Once a day (in the morning) Contact prescribing physician if questions or concerns \.br\ Unchanged lisinopril (lisinopril 20 mg Tab) 1 Tablets By Mouth Every day Contact prescribing physician if questions or concerns \.br\ Unchanged metformin (metformin 500 mg Tab) 2 Tablets By Mouth 2 times a day TAKE TWO TABLETS BY MOUTH TWICE A DAY Contact prescribing physician if questions or concerns \.br\ Unchanged metoprolol (Toprol XL 100 mg Tab-ER) 2 Tablets By Mouth Every day Contact prescribing physician if questions or concerns \.br\ Unchanged ranolazine (ranolazine 500 mg oral ER Tab) 2 Tablets By Mouth 2 times a day Contact prescribing physician if questions or concerns \.br\ Pharmacy Information\.br \ [facility]: [address] [phone]\.br\ Allergies\.br\ penicillins\.br \ Problems\.br\ Ongoing - Any problem that you are currently receiving treatment for.\.br\ BMI 28.0-28.9,adult \.br\ CAD in [place] artery\.br\ Controlled type 2 diabetes mellitus without complication, without long-term current use of insulin\.br\ Excess ear wax\.br\ GERD without esophagitis\.br \ Longstanding persistent atrial fibrillation\.b r\ Mixed hyperlipidemia\ .br\ Non-smoker\.br\ Primary hypertension\.b r\ Screening for colon cancer\.br\ Screening for prostate cancer\.br\ Historical - Any problem that you are no longer receiving treatment for.\.br\ Atrial fibrillation\.b r\ Dyslipidemia\.b r\ Hypertension\.b r\ Metabolic syndrome\.br\ \.br\ [facility] CHEMISTRYOrdered By: Bobby roman on 07-03-2023 HbA1c (Bld) [Mass fraction] 6.8 % High <=5.9% [facility] Family Medicine Office/Clini c Noteon 07-03-2023 Family Medicine Office/Clinic Note HPI Staff Marcelle is a 63 year old male presenting for a full physical exam Health Maintenance: Colonoscopy: coloard 3 years ago, due PSA: ?? Last Labs: [facility] he's unsure when no results in file Immunizations: Flu: due: will think about it Covid: (2) #13- over due #23- over due td/tdap: over due Zoster- Shingrex over due questions/concerns: bp at home right before he came 122.75 and bd sugar 135 after coffee and a banana after working all day and comes home and takes off his boots, has some swelling in this lower legs, it resolves soon after boots are off and Dr Gore didn't feel it was a problem email [email or web address] must go on refill omeprazole to [facility] History of Present Illness - Here for follow up. - only concern for today is the swelling in the legs after work. Cardiology has no issues with is. - BS are well. Review of Systems PHQ Score Initial Depression Screen Score: 0 Physical Exam Vitals & Measurements HR: 70(Peripheral) RR: 14 BP: 122/75 SpO2: 96% HT: 70 in HT: 178 cm WT: 90 kg WT: 198 lb BMI: 28.41 General: alert, no acute distress ENMT: oral mucosa moist, Both EACs are occluded Cardiovascular: regular rate and rhythm, normal peripheral perfusion Respiratory: Lungs CTA, respirations non labored Extremities: no deformity, no trauma Neurological: oriented x 4, LOC appropriate for age, CN II-XII intact, motor strength equal & normal bilaterally, speech normal Abdomen: Soft, Nontender, Non-distended, + BS Assessment/Plan 1. Primary hypertension (I10: Essential (primary) hypertension) - good at home. - monitoring daily. - no issues. Ordered: Cologuard Screening Test HgbA1c Microalbumin Level Urine PSA Free & Total U Protein/Creat Ratio 2. Longstanding persistent atrial fibrillation (I48.11: Longstanding persistent atrial fibrillation) - NSR today. - Continue to monitor - Follow with cardiology - No CP Ordered: Cologuard Screening Test HgbA1c Microalbumin Level Urine PSA Free & Total U Protein/Creat Ratio 3. Mixed hyperlipidemia (E78.2: Mixed hyperlipidemia) - Continue on statin Ordered: Cologuard Screening Test HgbA1c Microalbumin Level Urine PSA Free & Total U Protein/Creat Ratio 4. Controlled type 2 diabetes mellitus without complication, without long-term current use of insulin (E11.9: Type 2 diabetes mellitus without complications) - Will check A1c today. - Adjust meds as needed Ordered: Cologuard Screening Test HgbA1c Microalbumin Level Urine PSA Free & Total U Protein/Creat Ratio 5. BMI 28.0-28.9,adult (Z68.28: Body mass index [BMI] 28.0-28.9, adult) - BMI education added Ordered: Body Mass Index (BMI) documented 3008F Cologuard Screening Test Current tobacco non-user 1036F Depression Screening Negative 3352F HgbA1c Influenza immunization status assessed 1030F Microalbumin Level Urine Most recent diastolic blood pressure <80 mm Hg 3078F Patient screen for fall risk: no falls in last year or 1 fall with no injury in last year 1101F PSA Free & Total Systolic BP <130 mm Hg (Most Recent) 3074F U Protein/Creat Ratio 6. Overweight (E66.3: Overweight) - As above Ordered: Body Mass Index (BMI) documented 3008F Current tobacco non-user 1036F Depression Screening Negative 3352F HgbA1c Influenza immunization status assessed 1030F Microalbumin Level Urine Most recent diastolic blood pressure <80 mm Hg 3078F Patient screen for fall risk: no falls in last year or 1 fall with no injury in last year 1101F PSA Free & Total Systolic BP <130 mm Hg (Most Recent) 3074F U Protein/Creat Ratio 7. Screening for prostate cancer (Z12.5: Encounter for screening for malignant neoplasm of prostate) - PSA ordered Ordered: HgbA1c Microalbumin Level Urine PSA Free & Total U Protein/Creat Ratio 8. Screening for colon cancer (Z12.11: Encounter for screening for malignant neoplasm of colon) - Cologuard ordered Ordered: HgbA1c Microalbumin Level Urine PSA Free & Total U Protein/Creat Ratio 9. Excess ear wax (H61.20: Impacted cerumen, unspecified ear) - Removal done 10. GERD without esophagitis (K21.9: Gastro-esophageal reflux disease without esophagitis) - Reordered PPI Orders: meloxicam, 15 mg = 1 tab(s), Oral, Daily, # 30 tab(s), Refills(s) 0, Pharmacy: [facility]/pharmacy #[id number] omeprazole, 20 mg = 1 cap(s), Oral, Daily, # 90 cap(s), Refills(s) 1, Pharmacy: [facility], 178, cm, 07/03/23 7:24:00 EDT, Height/Length Dosing, 90, kg, 07/03/23 7:24:00 EDT, Weight Dosing - Follow up in 6 months for Welcome to medicare. Follow-up No qualifying data available Problem List/Past Medical History Ongoing BMI 28.0-28.9,adult CAD in [place] artery Controlled type 2 diabetes mellitus without complication, without long-term current use of insulin Excess ear wax GERD without esophagitis Longstanding (more content not included)... Normal [facility] Comment on above: Result Comment: Elec tronically Signed By: Km NIELSON, Ursula Luis.br\Date and Time Signed: 07/03/23 07:50 EDT [place] 07-03-2023 Forms [id number]# 1.00CD:127 [facility] Forms [id number] #1.00CD:127 [facility] [id number] 07-03-2023 HbA1c (Bld) [Mass fraction] 6.8 % High <=5.9 [facility] Comment on above: Performed By: #### 1 [id number], [id number] #### [facility] [address] [place] [address] Consultation Noteon 06-28-20 Consultation Note [id number] #1.00CD:127 [facility] Office Visiton 06-21-2023 Follow-up visit [id number] Marcelle Deutsch 1960 M Date Provider Department Center 06/21/2023 BLANKA LOMELI Family History Problem Relation Age of Onset Coronary artery disease Father Atrial fibrillation Father Heart attack Brother Family Status - Relation Status Age at Father Brother Level of Service:75834 MA OFFICE/OUTPATIENT ESTABLISHED LOW MDM 20-29 MIN Reason for Visit and Comments: Follow-up [765191] - 6 month F/U Normal [facility] CBC AUTO DIFFon 01-04-2023 BASO # 0.1 103/ul Normal 0.0-0.1 [facility] Comment on above: Performed By: #### C BC #### [facility] [address] [place] [address] Dr. Lucia San Basophils/100 WBC (Bld) 1.0 % Normal 0.2-2.0 [facility] Comment on above: Performed By: #### C BC #### [facility] [address] [place] [address] Dr. Lucia San EO # 0.1 103/ul Normal 0.0-0.7 [facility] Comment on above: Performed By: #### C BC #### [facility] [address] [place] [address] Dr. Lucia San Eosinophils/100 WBC (Bld) 2.5 % Normal 0.9-7.0 [facility] Comment on above: Performed By: #### C BC #### [facility] [address] [place] [address] Dr. Lucia San Erythrocyte distribution width (RBC) [Ratio] 17.3 % Critically high 11.0-15.0 [facility] Comment on above: Performed By: #### C BC #### [facility] [address] [place] [address] Dr. Lucia San Hematocrit (Bld) [Volume fraction] 35.2 % Critically low 42.0-54.0 [facility] Comment on above: Performed By: #### C BC #### [facility] [address] [place] [address] Dr. Lucia San Hemoglobin (Bld) [Mass/Vol] 11.3 g/dL Critically low 14.0-18.0 [facility] Comment on above: Performed By: #### C BC #### [facility] [address] [place] [address] Dr. Lucia San IG # 0.02 10e3/ul Normal 0.00-0.03 [facility] Comment on above: Performed By: #### C BC #### [facility] [address] [place] [address] Dr. Lucia San IG % 0.4 % Normal 0.0-0.5 [facility] Comment on above: Performed By: #### C BC #### [facility] [address] [place] [address] Dr. Lucia San LYMPH # 1.6 103/ul Normal 1.2-3.8 [facility] Comment on above: Performed By: #### C BC #### [facility] [address] [place] [address] Dr. Lucia San Lymphocytes/100 WBC (Bld) 30.9 % Normal 20.5-60.0 [facility] Comment on above: Performed By: #### C BC #### [facility] [address] [place] [address] Dr. Lucia San MANUAL DIFF REQ NO Normal [facility] Comment on above: Performed By: #### C BC #### [facility] [address] [place] [address] Dr. Lucai San MCH (RBC) [Entitic mass] 23.9 pg Critically low 25.9-34.0 [facility] Comment on above: Performed By: #### C BC #### [facility] [address] [place] [address] Dr. Lucia San MCHC (RBC) [Mass/Vol] 32.1 g/dL Normal 29.9-35.2 [facility] Comment on above: Performed By: #### C BC #### [facility] [address] [place] [address] Dr. Lucia San MCV (RBC) [Entitic vol] 74.6 fL Critically low 80.0-94.0 [facility] Comment on above: Performed By: #### C BC #### [facility] [address] [place] [address] Dr. Lucia San MONO # 0.5 103/ul Normal 0.3-0.8 [facility] Comment on above: Performed By: #### C BC #### [facility] [address] [place] [address] Dr. Lucia San Monocytes/100 WBC (Bld) 9.1 % Normal 1.7-12.0 [facility] Comment on above: Performed By: #### C BC #### [facility] [address] [place] [address] Dr. Lucia San NEUT # 2.9 103/ul Normal 1.4-6.5 [facility] Comment on above: Performed By: #### C BC #### [facility] [address] [place] [address] Dr. Lucia San Neutrophils/100 WBC (Bld) 56.1 % Normal 43.0-75.0 [facility] Comment on above: Performed By: #### C BC #### [facility] [address] [place] [address] Dr. Lucia San Platelet mean volume (Bld) [Entitic vol] 11.6 fL Normal 9.5-13.5 [facility] Comment on above: Performed By: #### C BC #### [facility] [address] [place] [address] Dr. Lucia San PLT 172 103/ul Normal 150-450 [facility] Comment on above: Performed By: #### C BC #### [facility] [address] [place] [address] Dr. Lucia San RBC 4.72 106/ul Normal 4.70-6.10 [facility] Comment on above: Performed By: #### C BC #### [facility] [address] [place] [address] Dr. Lucia San WBC 5.2 103/ul Normal 4.0-11.0 [facility] Comment on above: Performed By: #### C BC #### [facility] [address] [place] [address] Dr. Lucia San ECHOCARDIO M/2D COMPLETEon 0 01-04-2023 ECHOCARDIO M/2D COMPLETE Patient: MARCELLE DEUTSCH Exam Date: 01/04/2023 : 1960 Gender:M Ordering : DR BLANKA GORE M.D. Admission #: [id number] Family : Order #: [id number] CLICK HERE TO VIEW EXAM ECHOCARDIOGRAM REPORT PROCEDURE: CARDIO PULMONARY ECHOCARDIO M/2D COMP INDICATIONS: CAD, Angina COMPARISON: None. DESCRIPTION: COMPLETE ECHOCARDIOGRAM Real-time transthoracic echocardiography with 2D, M-mode, spectral and color flow Doppler performed. QUALITY: Technical quality was good. LEFT VENTRICLE: Normal chamber size. Borderline left ventricular hypertrophy. LV EF: Global left ventricular systolic function is normal. Visual estimation of left ventricular ejection fraction is 55-60% DIASTOLIC: Normal diastolic function. ATRIAL SEPTUM: Inadequately seen. LEFT ATRIUM: Moderate dilatation. RIGHT ATRIUM: Mild dilatation. RIGHT VENTRICLE: Normal chamber size. Normal right ventricular systolic function. TRICUSPID VALVE: Normal mobility and thickness. No stenosis with trivial regurgitation. No evidence of pulmonary hypertension. RVSP 13mmHg MITRAL VALVE: Normal mobility and thickness. No mitral valve prolapse. No evidence of mitral valve stenosis. There is no mitral annular calcification. Trivial mitral regurgitation. AORTIC VALVE: Normal trileaflet appearance. Thickened aortic valve. Normal leaflet mobility. No evidence of aortic valve stenosis. Trivial aortic regurgitation. AORTIC ROOT: Normal diameter and appearance. PULMONIC VALVE: Normal thickness and mobility. No stenosis. Trivial regurgitation. PERICARDIUM: No evidence of pericardial effusion. IVC: Collapses with inspirations. Normal size. CONCLUSION: Global left ventricular systolic function is normal; visually estimated ejection fraction is 55 to 60%. No significant wall motion abnormalities. Left ventricular wall thickness is upper normal limits. Normal diastolic function. Biatrial enlargement. The right ventricle is normal in size and systolic function. No significant valvular abnormalities. Adult Echocardiography Procedure Report Left Ventricle LVEDD (3.7 - 5.6 cm): 4.43 cm LVESD (2.2 - 4.0 cm): 3.07 cm LVIVS thickness (0.6 - 1.2 cm): 1.19 cm LVPW thickness (0.5 - 1.0 cm): 0.83 cm e': 0.12 m/s E - e': 6.73 LVOT Max Gradient: 3.92 mm[Hg] Peak Velocity (LVOT): 0.99 m/s Mean Velocity (LVOT): 0.58 m/s LVOT Diameter 2.32 cm Left Ventricular Ejection Fraction: 58.44 %, 58.44 % Left Atrium LA Volume Index (2D A2C): 102.36 ml, 102.36 ml Left Atrium Systolic Dimension: 4.05 cm Mitral Valve MV E to A Ratio: 1.23 Mitral Valve A-Wave Peak Velocity: 0.67 m/s Mitral Valve E-Wave Peak Velocity: 0.83 m/s Right Ventricle RV Internal Diastolic Dimension: 3.26 cm Aorta AO Root Diam: 3.44 cm Ascending Ao Diam: 3.18 cm Aortic Valve AoV Area (Peak Jarett): 3.37 cm2, 3.37 cm2 AoV Area (VTI): 3.28 cm2, 3.28 cm2 Deceleration [place]: 0.48 m/s2 Pressure Half-Time: 1.33 s Peak Velocity(Antegrade Flow): 1.24 m/s Peak Gradient(Antegrade Flow): 6.15 mm[Hg] Mean Velocity(Antegrade Flow): 0.83 m/s Mean Gradient(Antegrade Flow): 3.20 mm[Hg] Velocity Time Integral: 31.04 cm Tricuspid Valve Peak Velocity (Regurgitant Flow): 1.58 m/s, 1.58 m/s, 1.87 m/s Peak Velocity: 0.57 m/s Pulmonic Valve Mean Gradient: 2.71 mm[Hg], 1.80 mm[Hg] Mean Velocity: 0.77 m/s, 0.62 m/s Peak Velocity: 1.09 m/s, 0.93 m/s Peak Gradient: 4.71 mm[Hg], 3.48 mm[Hg] Right Atrium Right Atrium Systolic Pressure: 47.36 ml, 40.49 ml, 54.22 ml Dictated by: Shan Lancaster M.D. on 01/04/2023 at 14:56 Approved by: Shan Lancaster M.D. on 01/04/2023 at 15:00 Normal [facility] GLYCOHEMOGLOBIN A1Con 2022 ADA RECOMMENDATION SEE BELOW Normal [facility] Comment on above: Result Comment: ADA RECOMMENDED LIMIT 4.0 - 6.0 ADA THERAPEUTIC TARGET < 7.0 ACTION SUGGESTED > 7.0 Performed By: #### A 1C #### [facility] [address] [place] [address] Dr. Lucia San HbA1c (Bld) [Mass fraction] 6.9 % Critically high 4.5-6.2 [facility] Comment on above: Performed By: #### A 1C #### [facility] [address] [place] [address] [address] Lucia San LIPID PROFILEon 01-04-2023 CHOL-HDL RATIO NORM SEE BELOW Normal [facility] Comment on above: Result Comment: 3.3 - 4.4 LOW RISK 4.4 - 7.1 AVERAGE RISK 7.1 - 11.0 MODERATE RISK >11.0 HIGH RISK Performed By: #### L IPID #### [facility] [address] [place] [address] [address] Lucia San Cholesterol [Mass/Vol] 140 mg/dL Normal <=200 [facility] Comment on above: Performed By: #### L IPID #### [facility] [address] [place] [address] [address] Lucia San Cholesterol in HDL [Mass/Vol] 37 mg/dL Critically low 40-60 [facility] Comment on above: Performed By: #### L IPID #### [facility] [address] [place] [address] [address] Lucia San Cholesterol in LDL [Mass/Vol] 80.2 mg/dL Normal [facility] Comment on above: Performed By: #### L IPID #### [facility] [address] [place] [address] [address] Lucia San Cholesterol.total/Cho lesterol in HDL [Mass ratio] 3.8 {ratio} Normal [facility] Comment on above: Performed By: #### L IPID #### [facility] [address] [place] [address] [address] Lucia San HDL NORMAL > or = 60 mg/dl - LOW CARDIOVASCULAR RISK <40 mg/dl - HIGH CARDIOVASCULAR RISK Normal [facility] Comment on above: Performed By: #### L IPID #### [facility] [address] [place] [address] [address] Lucia San LDL CALC NORMAL SEE BELOW Normal [facility] Comment on above: Result Comment: <100 mg/dl OPTIMAL 100 - 129 mg/dl NEAR OR ABOVE OPTIMAL 130 - 159 mg/dl BORDERLINE HIGH 160 - 189 mg/dl HIGH >190 mg/dl VERY HIGH Performed By: #### L IPID #### [facility] [address] [place] [address] [address] Lucia San Triglyceride [Mass/Vol] 114 mg/dL Normal <=150 [facility] Comment on above: Performed By: #### L IPID #### [facility] [address] [place] [address] [address] Lucia San VLDL CALC 22.8 mg/dL Normal [facility] Comment on above: Performed By: #### L IPID #### [facility] [address] [address] [address] Lucia San MICROALBUMIN, RAND URon 12-15 mALB 1.5 mg/L Normal <=30.0 [facility] Comment on above: Performed By: #### M ALBR #### [facility] [address] [place] [address] Dr. Lucia San NM STRESS/REST MULTIon 01-04 NM STRESS/REST MULTI Patient: MARCELLE DEUTSCH Exam Date: 01/04/2023 : 1960 Gender:M Ordering : DR BLANKA GORE M.D. Admission #: [id number] Family : Order #: [id number] CLICK HERE TO VIEW EXAM RADIOLOGY REPORT PROCEDURE: RADIONUCLIDE IMAGING STRESS/REST MULTI COMPARISON: None. INDICATIONS: Family history of ischemic heart disease and other diseases of the circulatory system TECHNIQUE: Exam Description: Stress/Rest one day protocol gated SPECT Rest Imagin.3 mCi Tc-99m Cardiolite IV on 01/04/2023 Stress Imaging 32.0 mCi Tc-99m Cardiolite IV on 01/04/2023 Exercise Protocol: 0.4 mg Lexiscan given IV Heart Rate (bpm): Rest: 54 Max: 68 PMHR: 43 Blood Pressure: Rest: 172/90 Max: 172/90 Symptoms: none Rest and peak stress ECG findings were pending and the exercise portion of the study was pending per attending physician Dr. GUTIERREZ . For more details please see separate cardiac stress test report. FINDINGS: QUALITY OF STUDY: Good. PERFUSION DEFECT: LOCATION: Basal inferior. Mid-anterior. Mid-inferior. Apical inferior. [place]. SIZE: Large (5 or more segments). SEVERITY: Moderate. TYPE: Persistent. WALL MOTION: Normal. LV SIZE: Enlarged; EDV 135 mL. TID / TCD: None; 1.1 LVEF: Normal. Calculated EF 63%. SUMMARY: Myocardial perfusion imaging study has ABNORMAL findings. CONCLUSION: 1. Fixed defect mid anterior wall and inferior viramontes with no reversible ischemia 2. Dilated left ventricle, end-diastolic volume 135 milliliters 3. Normal left ventricular ejection fraction 63% 4. Pending exercise results Dictated by: Jannet Guzman MD on 01/04/2023 at 11:14 Approved by: Jannet Guzman MD on 01/04/2023 at 11:17 Normal [facility] PROF 14(COMP METB)on 023 Albumin [Mass/Vol] 4.1 g/dL Normal 3.4-5.0 [facility] Comment on above: Performed By: #### C MP #### [facility] [address] [place] [address] Dr. Lucia San Albumin/Globulin [Mass ratio] 1.7 {ratio} Normal [facility] Comment on above: Performed By: #### C MP #### [facility] [address] [place] [address] Dr. Lucia San ALP [Catalytic activity/Vol] 51 U/L Normal 46-116 [facility] Comment on above: Performed By: #### C MP #### [facility] [address] [place] [address] Dr. Lucia San ALT [Catalytic activity/Vol] 49 U/L Normal 16-63 [facility] Comment on above: Performed By: #### C MP #### [facility] [address] [place] [address] Dr. Lucia San Anion gap [Moles/Vol] 16.6 mmol/L Normal [facility] Comment on above: Performed By: #### C MP #### [facility] [address] [place] [address] Dr. Lucia San AST [Catalytic activity/Vol] 28 U/L Normal 15-37 [facility] Comment on above: Performed By: #### C MP #### [facility] [address] [address] [address] Lucia San Bilirubin [Mass/Vol] 1.7 mg/dL Critically high 0.2-1.0 [facility] Comment on above: Performed By: #### C MP #### [facility] [address] [place] [address] Dr. Lucia San Calcium [Mass/Vol] 9.2 mg/dL Normal 8.5-10.1 [facility] Comment on above: Performed By: #### C MP #### [facility] [address] [place] [address] Dr. Lucia San Chloride [Moles/Vol] 100 mmol/L Normal 98-107 [facility] Comment on above: Performed By: #### C MP #### [facility] [address] [place] [address] Dr. Lucia San CO2 [Moles/Vol] 25.9 mmol/L Normal 21.0-32.0 [facility] Comment on above: Performed By: #### C MP #### [facility] [address] [place] [address] Dr. Lucia San Creatinine [Mass/Vol] 1.03 mg/dL Normal 0.70-1.30 [facility] Comment on above: Performed By: #### C MP #### [facility] [address] [place] [address] Dr. Lucia San EGFR-AF [place] >60 Normal >=60 [facility] Comment on above: Performed By: #### C MP #### [facility] [address] [address] [address] Lucia San EGFR-NON AF [place] >60 Normal >=60 [facility] Comment on above: Performed By: #### C MP #### [facility] [address] [place] [address] Dr. Lucia San Globulin (S) [Mass/Vol] 2.4 g/dL Normal [facility] Comment on above: Performed By: #### C MP #### [facility] [address] [address] [address] Lucia San Glucose [Mass/Vol] 151 mg/dL Normal [facility] Comment on above: Performed By: #### C MP #### [facility] [address] [place] [address] Dr. Lucia San Performed By: #### A 1C #### [facility] [address] [place] [address] Dr. Lucia San Potassium [Moles/Vol] 4.5 mmol/L Normal 3.5-5.1 [facility] Comment on above: Performed By: #### C MP #### [facility] [address] [place] [address] Dr. Lucia San Protein [Mass/Vol] 6.5 g/dL Normal 6.4-8.2 [facility] Comment on above: Performed By: #### C MP #### [facility] [address] [place] [address] Dr. Lucia San Sodium [Moles/Vol] 138 mmol/L Normal 136-145 [facility] Comment on above: Performed By: #### C MP #### [facility] [address] [place] [address] Dr. Lucia San Urea nitrogen [Mass/Vol] 13.0 mg/dL Normal 7.0-18.0 [facility] Comment on above: Performed By: #### C MP #### [facility] [address] [place] [address] Dr. Lucia San Urea nitrogen/Creatinine [Mass ratio] 12.6 mg/mg Normal [facility] Comment on above: Performed By: #### C MP #### [facility] [address] [place] [address] Dr. Lucia Rondon 02-03-2022 DANIS Office Visit (CARDMN) MARCELLE DEUTSCH ([id number]) 1960 M Date Time Provider Department 02/03/22 8:30 AM JANNET GONZALEZ During your visit today, we recorded the following information about you: Pulse Blood pressure Weight Height 60/minute 180/76 85.3 kg 1.765 m Jannet Gonzalez MD 02/03/2022 9:58 AM Signed [facility] [place] Emiliano Plascencia Department of Cardiovascular Medicine SECTION OF CARDIAC PACING and ELECTROPHYSIOLOGY OUTPATIENT VISIT DATE February 03, 2022 OUTPATIENT VISIT TYPE CONSULTATION PRIMARY CARE PHYSICIAN: Mark Browning DO [address] [id number] CHIEF COMPLAINT: PAF HISTORY OF PRESENT ILLNESS (includes edited nursing intake history): Cardiac consultation at the request of Dr. Hina Green.A copy of this consultation note will be provided to the requesting physician by way of shared Medical record or letter to requesting physician via US mail. Marcelle Deutsch is a 61 y/o male who presents for atrial fibrillation. He has a history of atrial fibrillation, s/p PVI ablation 07/10/2017 ([facility]), atrial flutter s/p DCCV 07/28/2017, CAD, white coat/liable HTN. He is a former patient of Dr Green and was last seen in office 11/28/2017 by GIFTY Gtz. He was previously maintained on metoprolol and propafenone. His propafenone was PRN after October of 2017. He was seen at his local ED for an episode of atrial fibrillation in August 2021 and converted with medication. He was seen by a local EP a month or two later and was started on amiodarone. He was recommended to undergo another ablation. He was unable to tolerate amiodarone due to nausea and fatigued. He reports having episodes of atrial fibrillation every several months. The episodes can last 30 minutes up to a couple of days. He is very symptomatic with episodes. He reports having chest pain for several hours with episodes. He endorses shortness of breath, palpitations, and lightheadedness with episodes. He feels well overall when he is in SR. He denies syncope. [id number] 3 (HTN, CAD, DM) tolerating Xarelto PAST MEDICAL HISTORY Diagnosis Date - Atrial fibrillation (HCC) 2013 - CAD (coronary artery disease) 09/02/2014 - Diabetes mellitus (HCC) - Dyslipidemia - Hypertension - Metabolic syndrome PAST SURGICAL HISTORY Procedure Laterality Date - AFIB PVI W/COMPL EP STUDY 07/10/2017 - CARDIAC CATH 09/02/2014 SCRAPER BURRER of proximal RCA. 70% ostial D1. Preserved ejection fraction - EMG - PAST SURGICAL HISTORY OF right shoulder surgery SOCIAL HISTORY Social History Tobacco Use - Smoking status: Former Smoker Packs/day: 0.50 Types: Cigarettes Start date: 10/25/1955 Quit date: 08/09/2014 Years since quittin.4 - Smokeless tobacco: Never Used Substance Use Topics - Alcohol use: Yes Alcohol/week: 15.0 standard drinks Types: 6 Cans of Beer (12oz) per week - Drug use: No No family history on file.ALLERGIES: ALLERGIES Allergen Reactions - Penicillins Hives MEDICATIONS: amLODIPine (NORVASC) 5 mg tablet amlodipine 5 mg tablet TAKE ONE TABLET BY MOUTH DAILY atorvastatin (LIPITOR) 80 mg tablet atorvastatin 80 mg tablet cloNIDine HCl (CATAPRES) 0.1 mg tablet clonidine HCl 0.1 mg tablet TAKE ONE TABLET BY MOUTH TWICE A DAY isosorbide mononitrate ER (IMDUR) 120 mg 24 hr tablet 120 mg once daily. lisinopril (ZESTRIL, PRINIVIL) 20 mg tablet lisinopril 20 mg tablet TAKE ONE TABLET BY MOUTH ONCE DAILY metFORMIN (GLUCOPHAGE) 500 mg tablet metformin 500 mg tablet TAKE TWO TABLETS BY MOUTH TWICE A DAY metoprolol succinate ER (TOPROL XL) 200 mg 24 hr tablet Take 200 mg by mouth once daily. rivaroxaban (XARELTO) 20 mg tablet Take 1 tablet by mouth once daily. omeprazole (PRILOSEC) 20 mg capsule Take 1 capsule by mouth once daily. REVIEW OF SYSTEMS: General, constitutional: Weight loss or gain- No, Fever or chills-No, Weakness-No, Trouble sleeping-No. Head, Eyes, Ears, Mouth: Headache, head injury-No, Glasses or contact lenses-No, Pain-No, Impaired vision-No, Decreased hearing-No, Ringing in ears-yes, Nose bleeds-No, Dental difficulties-No, Bleeding gums-No, Dentures-No. Neck: Swelling-No, Pain-yes, Stiffness-yes. Respiratory: Cough-No, Spitting up blood-No, Shortness of breath-No, Wheezing or asthma-No. Musculoskeletal: Muscle or joint pain or stiffness-yes, Joint swelling-No. Gastrointestinal: Difficulty swallowing-No, Heartburn-No, Change in bowel habits-No, Blood in stool, Dark black stools-No. Neurological/Psychia tric: Weakness, paralysis-No, Numbness-yes, Tingling-yes, Tremor-No, Nervousness or anxiety-No, Depressed mood-No, Memory loss-No. Skin: Rash-No, Itching-No. Hematological: Easy bruising-yes, Easy bleeding-yes. Endocrine: Heat or cold intolerance-yes, Excessive sweating-No, Frequen (more content not included)... Normal [facility] CNCOon 12-04-2021 CNCO Letter Text Normal [facility] Dermatopathologyon 0 Dermatopathology [facility] Dermatopathology Laboratory [address] [place] [id number] DERMATOPATHOLOGY REPORT Name:MARCELLE DEUTSCH [facility]. Rec #. [id number] Location: [facility] Date of Procedure: 10/02/2020 Race: Unknown Date Received: 10/06/2020 /Sex: 1960 (Age: 60) / M Date Reported: 10/08/2020 Other: Submitting Physician:SONIA GREEN APRN, CARPET LOOM FIXER-C FINAL DIAGNOSIS A. SKIN, (R) NECK, BIOPSY: SQUAMOUS CELL CARCINOMA IN SITU, EXTENDING TO THE DEEP AND PERIPHERAL MARGINS IN THESE PLANES OF SECTION. B. SKIN, MID BACK, BIOPSY: NEUROFIBROMA, EXTENDING TO THE DEEP MARGIN IN THESE PLANES OF SECTION. Electronically Signed Out by TC MZAA MD. Electronically Signed Out By TC MAZA MD/BRDeb By the signature on this report, the individual or group listed as making the Final Interpretation/Diagn osis certifies that they have reviewed this case. Clinical History: A: 0.8x0.5cm ISK vs. other. Biopsy. 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 Biopsy. Specimens Submitted As: A: SKIN, (R) NECK, BIOPSY B: SKIN, MID BACK, BIOPSY Gross Description: A: Received in formalin is a mayers piece of skin measuring [id number] in aggreg (small). The specimen is inked and embedded in toto. B: Received in formalin is a mayers piece of skin measuring [id number]. The specimen is inked and embedded in toto. /10/06/2020 Microscopic Description: A,B: Microscopic examination performed. Normal [facility] Comment on above: Performed By: #### D #### Dermatopathology Social History Date Type Detail Facility Start: 04-01-2022 Tobacco smoking status Never s moked tobacco (finding) [facility] Start: 02-03-2022 Alcohol intake Current drinke r of alcohol (finding) [facility] Start: 01-24-2022 End: 02-03-2022 Exposure to SARS-CoV-2 (event) Not sure [facility] Start: 08-25-2014 End: 03-14-2024 Tobacco smoking status NHIS Ex-smoker [facility] Comment on above: Quit in 2013 after M I quit age 53 (39 pack years) Start: 08-25-2014 End: 02-03-2022 Cigarettes smoked current (pack per day) - Reported 0.5 [facility] Start: 08-25-2014 Tobacco use and exposure Smokeless tobacco non-user [facility] Start: 1960 Sex Assigned At Not on file C [facility] Start: [birth year]-25-1957 End: 08-09-2014 History of tobacco use Current smoker [facility] Start: 10-25-1955 End: 08-09-2014 History of tobacco use Cigarette Smoker [facility] Tobacco smoking status No Smokin g Status Entered [facility] Sex Assigned At Male [facility] Tobacco smoking status Never [facility] Comment on above: Quit in 2013 after M I quit age 53 (39 pack years) Vital Signs Date Time Vital Sign Value Performing Clinician Facility 03-14-2024 10:16-0400 Body temperature 97.52 [degF] Ana Lingke [facility] 03-14-2024 10:16-0400 Diastolic blood pressure 85 mm[Hg] Ana Hubbardboske [facility] 03-14-2024 10:16-0400 Heart rate 59 /min Ana Lingke [facility] 03-14-2024 10:16-0400 Mean blood pressure 116 mm[Hg] Ana Lingke [facility] 03-14-2024 10:16-0400 Respiratory rate 16 /min Ana Lingke [facility] 03-14-2024 10:16-0400 SaO2% (BldA) [Mass fraction] 99 % Ana Spencer [facility] 03-14-2024 10:16-0400 Systolic blood pressure 179 mm[Hg] Ana Lingke [facility] 02-15-2024 13:10-0400 Blood Pressure Location Ana Lingke [facility] 02-15-2024 13:10-0400 Body temperature 98.06 [degF] Ana Lingke [facility] 02-15-2024 13:10-0400 Diastolic blood pressure 61 mm[Hg] Ana Lingke [facility] 02-15-2024 13:10-0400 Heart rate 62 /min Ana Lingke [facility] 02-15-2024 13:10-0400 Mean blood pressure 77 mm[Hg] Ana Hubbardboske [facility] 02-15-2024 13:10-0400 Respiratory rate 16 /min Ana Spencer [facility] 02-15-2024 13:10-0400 SaO2% (BldA) [Mass fraction] 99 % Ana Spencer [facility] 02-15-2024 13:10-0400 Systolic blood pressure 108 mm[Hg] Ana Spencer [facility] 02-08-2024 13:00-0400 Blood Pressure Location Ana Spencer [facility] 02-08-2024 13:00-0400 Body temperature 98.24 [degF] Ana Spencer [facility] 02-08-2024 13:00-0400 Diastolic blood pressure 82 mm[Hg] Ana Spencer [facility] 02-08-2024 13:00-0400 Heart rate 80 /min Ana Spencer [facility] 02-08-2024 13:00-0400 SaO2% (BldA) [Mass fraction] 100 % Ana Spencer [facility] 02-08-2024 13:00-0400 Systolic blood pressure 142 mm[Hg] Ana Spencer [facility] 01-25-2024 08:58-0400 Diastolic blood pressure 82 mm[Hg] Ana Spencer [facility] 01-25-2024 08:58-0400 Heart rate 65 /min Ana Spencer [facility] 01-25-2024 08:58-0400 Mean blood pressure 118 mm[Hg] Ana Spencer [facility] 01-25-2024 08:58-0400 SaO2% (BldA) [Mass fraction] 99 % Ana Spencer [facility] 01-25-2024 08:58-0400 Systolic blood pressure 190 mm[Hg] Ana Spencer [facility] 08-16-2023 08:21-0400 Blood Pressure Location Shelley Lue [facility] 08-16-2023 08:21-0400 Diastolic blood pressure 83 mm[Hg] Shelley Lue [facility] 08-16-2023 08:21-0400 Heart rate 69 /min Shelley Lue [facility] 08-16-2023 08:21-0400 Respiratory rate 16 /min Shelley Lue [facility] 08-16-2023 08:21-0400 Systolic blood pressure 166 mm[Hg] Shelley Lue [facility] Functional Status Date Assessment Result Facility 08-16-2023 Functional Status N/A [facility] 04-01-2022 Functional Status Telehealth Patient [facility] [place] Clinical Notes 02-03-2022 to 01-25-2024 RadiologyRadiologyRadiologyRadiologyRadiologyRadiologyLaboratoryRadiologyLaborat oryRadiologyLaboratoryRadiologyLaboratoryRadiologyRadiologyLaboratoryRadiology Note Date & Type Note Facility 01-25-2024 Hospital Discharge instructions Follow Up Care 01/25/2024 12:17:38 With:Tj BURTON, Ana Rivas, ONC Address: [facility] [address] [place] [phone] When: Unknown Comments:cbc, cmp, iron studies in 3mo and 6mofollow-up in 6mo with CARPET LOOM FIXER [facility] 12-29-2023 Note LDL > 70 therefore c ontinue lipitor 80 mg and will add zetia 10 mg daily Repeat lipid level before next appt in about 3-6 months [facility] 12-29-2023 Note Hypertension is typi jimmie stable with review of his home b/p log. Definitely has white coat syndrome Continue norvasc, clonidine, lisinopril and toprol [facility] 12-29-2023 Note Coronary artery dise ase is stable Continue GDMT- ASA, lipitor, imdur, toprol, and ranexa continue risk factor modifications- heart healthy diet, regular exercise as tolerated and continue all medications. [facility] 12-29-2023 Note Rate stable with top rol Anticoagulation with eliquis and denied any bleeding tendencies. [facility] 12-29-2023 Note Order ABD Aorta US i n 6 months to re-evalulate infrarenal AAA. [facility] 12-29-2023 Hospital Discharge instructions Follow Up Care 12/29/2023 11:16:26 With:Tj BURTON, Ana Rivas, ONC Address: [facility] [address] [place] [phone]- [phone] When: Unknown Comments:IV Injectafer x2B12 injections weekly x4, then monthlycbc, cmp, iron studies in 8wksfollow-up in 8wks with CARPET LOOM FIXER [facility] 12-29-2023 Note Patient here for 6 m o follow up PAF, CAD, AAA, and hypertension. Gets angina when he's in afib, and episodes last a few hours - 12 hours at a time. He takes diltiazem PRN and says it takes a few hours for it to kick in. Had labs recently and PCP started him on iron for low HGB. Has more energy now. Had some swelling for a few weeks a while ago. Review of Systems Cardiovascular: Positive for chest pain (when in afib), leg swelling (a few weeks ago) and palpitations. All other systems reviewed and are negative. [facility] 12-29-2023 Note [facility] CARDIOLOGY PROGR ESS NOTE HPI: Marcelle Maria D Deutsch is a 63 y.o. male here for routine F/U and newly noted Ascending aneurysm on CT chest HPI 63 yo male presents today for F/U of known CAD, P afib, HTN, thoracic aneurysm noted on CT chest. Denied chest pain, SOB, Orthopnea, palpitations. He has known White coat syndrome, and reports that just taking b/p at home stresses me out and raises my b/p. Review of Systems Constitutional: Negative. Respiratory: Negative. Cardiovascular: Negative. Neurological: Negative. All other systems reviewed and are negative. Previous HPI per Dr Gore HPI He is a 63 yo man with prior history of: 1. CAD s/p cardiac cath in 2013 in the setting of an abnormal stress test that showed SCRAPER BURRER of the RCA with filling via left to right collaterals. He also had a 70% stenosis in a diagonal branch (the prior report mentions that it is not amenable to intervention). At that time left-ventricular gram showed normal left ventricular ejection fraction at 60%. 2. Paroxysmal atrial fibrillation, status post ablation in 2017 at the [facility]. He also had prior cardioversion. He is currently maintained on Xarelto 20 mg daily. 3. Hypertension: He reports that he has elevated blood pressure every time he goes to the doctor's office or even when he checks it himself at home. His blood pressure has been controlled at home, with average of 123/74. In the past few months when I saw him at last visit in November 2022 he was having symptoms of angina with stress and exertion. I had added Ranexa. I checked a stress test that did not show ischemia. His echocardiogram showed preserved ventricular and valvular function. Today he reports that he has done very well on Ranexa. He gets very little if any anginal symptoms. He does not have shortness of breath, palpitations. He has mild lower extremity edema. He does not have claudication. He gets occasional episodes of atrial fibrillation. He has a Layera machine that he uses to transmit ECG. This shows AF episodes that later revert to SR. Visit Vitals BP 180/90 (BP Location: Left arm, Patient Position: Sitting) Pulse 67 Ht 1.778 m (5' 10 ) Wt 86.6 kg (191 lb) SpO2 98% BMI 27.41 kg/m??? Smoking Status Former BSA 2.07 m??? Allergies Allergen Reactions Penicillins Hives Medications: Current Outpatient Medications on File Prior to Visit Medication Sig Dispense Refill amLODIPine (Norvasc) 5 mg tablet Take 1 tablet (5 mg) by mouth in the morning. 90 tablet 3 apixaban (Eliquis) 5 mg tablet Take 1 tablet (5 mg) by mouth in the morning and at bedtime. 60 tablet 11 aspirin 81 mg chewable tablet aspirin 81 mg chewable tablet atorvastatin (Lipitor) 80 mg tablet Take 1 tablet (80 mg) by mouth at bedtime. 90 tablet 3 cloNIDine (Catapres) 0.1 mg tablet TAKE 1 TABLET IN THE MORNING AND AT BEDTIME 180 tablet 3 dilTIAZem (Cardizem) 30 mg immediate release tablet if needed. PRN isosorbide mononitrate ER (Imdur) 120 mg 24 hr tablet Take 1 tablet (120 mg) by mouth once daily as directed. Do not crush or chew. 90 tablet 3 lisinopril 20 mg tablet lisinopril 20 mg tablet metFORMIN (Glucophage) 500 mg tablet metformin 500 mg tablet TAKE TWO TABLETS BY MOUTH TWICE A DAY metoprolol succinate XL (Toprol-XL) 200 mg 24 hr tablet Take 1 tablet (200 mg) by mouth in the morning. Do not crush or chew. 90 tablet 3 omeprazole (PriLOSEC) [address] capsule omeprazole 20 mg capsule,delayed release Pro Fe 180 mg iron capsule Take by mouth in the morning. ranolazine (Ranexa) 500 mg 12 hr tablet Take 1 tablet (500 mg) by mouth in the morning and at bedtime. Do not crush, chew, or split. 180 tablet 3 Xarelto 20 mg tablet Take 1 tablet (20 mg) by mouth once daily as directed. (Patient not taking: Reported on 12/29/2023) 90 tablet 3 No current facility-administered medications on file prior to visit. Physical Exam: Constitutional: Appearance: Normal appearance. Without apparent distress HENT: Head: Normocephalic and atraumatic. Nose: Nose normal. Mouth/Throat: Mouth: Mucous membranes are moist. Eyes: Extraocular Movements: Extraocular movements intact. Conjunctiva/sclera: Conjunctivae normal. Neck: Vascular: No JVD. Cardiovascular: Rate and Rhythm: Normal rate and regular rhythm. Pulses: Dorsalis pedis pulses are 3 on the right side and 3on the left side. Posterior tibial pulses are 3 on the right side and 3 on the left side. Heart sounds: Normal heart sounds, S1 normal and S2 normal. Pulmonary: Effort: Pulmonary effort is normal. Breath sounds: Normal breath sounds. Abdominal: General: Bowel sounds are normal. Palpations: Abdomen is soft. Musculoskeletal: General: Normal range of motion. Cervical back: Normal range of motion. Right lower leg: No edema. Left lower leg: No edema. Skin: General: Skin is warm and dry. Capillary Refill: Capillary refill takes less than 2 seconds. Neurol (more content not included)... [facility] 12-29-2023 Note HTN management with goal b/p < 130/80 Monitor b/p at home Routine monitoring- will repeat Echocardiogram in 6 months with f/u with Dr Gore. D/W pt that he is to call 911 for sharp, tearing chest pain or back pain, call office for b/p consistently > 130/80 and he voiced understanding [facility] 08-29-2023 Note Chief Complaint consultation for positive Cologuard HPI Staff 63 year old male presents on consultation from Dr. Love for positive Cologuard. Denies abdominal or rectal pain. No rectal bleeding or change in bowel habits. Denies nausea or vomiting. No unexplained weight loss. Never had colonoscopy in the past. No known family history of colon cancer. Patient taking Xarelto for a.fib. History of Present Illness 63 yo male with h/o CAD, atrial fibrillation, on Xarelto, htn, DMII, hyperlipidemia, GERD, bph, referred for positive Cologuard; denies change in bms or blood in stools, occasional BRBPR with wiping, attributed to hemorrhoids; no abdominal operations, on baby asa daily and Xarelto, no NSAIDs, no SBE prophylaxis; no fmhx of GI malignancy or IBD; no tobacco use. Review of Systems PHQ Score Initial Depression Screen Score: 0 SCORE ROS - Provider Constitutional: no fever, no sweats, no weight loss. Eyes: no glasses, no blurred vision, no visual loss. ENMT: no dentures, no hoarseness, no swallowing difficulties, no hearing loss, no ear infection(s), no nose bleeds. Cardiovascular: normal blood pressure, no chest pain, regular heartbeat, no heart murmur. Respiratory: no shortness of breath, no cough, no asthma, no wheezing. Gastrointestinal: no nausea, no vomiting, no diarrhea, no constipation, no blood in stool, no change in bowel habits, no abdominal pain, no hepatitis. Genitourinary: no kidney stones, no urine infection, no dysuria. Musculoskeletal: no pain, no weakness. Skin: no changing moles, no rash, no skin lumps. Neurologic: no seizures, no epilepsy, no headache. Psychiatric: no emotional or psychiatric problem. Heme/Lymph: no bleeding problems, no anemia, no blood clots, no transfusions. Allergy/Immunologic: no swollen lymph nodes/glands, no IV drug abuse. Other: Additional ROS info: Except as noted in the above Review of Systems and in the History of Present Illness, all other systems have been reviewed and are negative or noncontributory. Physical Exam Vitals & Measurements HR: 76(Peripheral) RR: 16 BP: 190/88 HT: 70 in HT: 178 cm WT: 90.8 kg WT: 199.76 lb BMI: 28.66 HEENT: normal conjunctiva, sclera clear, no scleral icterus, EOM intact, PERRLA, oral mucosa moist without lesions. Neck: trachea midline, no mass, symmetric, no thyromegaly or nodules, no adenopathy Respiratory: lungs CTA, respirations non labored. Cardiovascular: regular rate and rhythm, no murmur, no pedal edema or varicosities. Gastrointestinal: soft, non distended, no tenderness, no masses, no palpable hernias, diastasis recti no, no hepatosplenomegaly; normal bs Lymphatic: no cervical adenopathy, no supraclavicular adenopathy. Musculoskeletal: normal gait, digits and nails without infection, nodes, cyanosis, clubbing. Skin: no rashes, no lesions, no ulcers, no subcutaneous nodules, induration. Psychiatric/Neuro: oriented to time, place, person, judgement normal, affect appropriate for age, insight intact, no focal deficits. Tests: labs reviewed, review of old records completed , Discussed surgical options, risks, and possible complications with patient. Assessment/Plan 1. Positive colorectal cancer screening using Cologuard test (R19.5: Other fecal abnormalities) plan colonoscopy under anesthesia for further evaluation, informed consent obtained. hold Xarelto 2 days prior to procedure, if ok with Cardiology. Follow-up No qualifying data available Problem List/Past Medical History Ongoing Aortic aneurysm BMI 28.0-28.9,adult BPH (benign prostatic hyperplasia) CAD in [place] artery Controlled type 2 diabetes mellitus without complication, without long-term current use of insulin Dysuria Excess ear wax External bleeding hemorrhoids Family history of kidney cancer Former smoker GERD without esophagitis Gross hematuria Hematuria Kidney stone Left flank pain Longstanding persistent atrial fibrillation Mixed hyperlipidemia Non-smoker Overweight Personal history of kidney stones Positive colorectal cancer screening using Cologuard test Primary hypertension Screening for colon cancer Screening for prostate cancer Historical Atrial fibrillation Dyslipidemia Hypertension Metabolic syndrome Procedure/Surgical History Cardiac ablation system, Cardiac catheterization, Rotator cuff repair, Tear of biceps tendon, Tonsillectomy. Medications amLODIPine 5 mg Tab, Oral, Daily aspirin, 81 mg, Oral, Daily atorvastatin 80 mg Tab, 80 mg= 1 tab(s), Oral, Daily cloNIDine 0.1 mg tab, Oral, BID diltiazem 30 mg Tab, See Instructions isosorbide mononitrate 120 mg ER Tab, 120 mg= 1 tab(s), Oral, qAM lisinopril 20 mg Tab, 20 mg= 1 tab(s), Oral, Daily, 1 refills metformin 500 mg Tab, 1000 mg= 2 tab(s), Oral, BID, 1 refills omeprazole 20 mg Cap-DR, 20 mg= 1 cap(s), Oral, Daily, 1 refills ranolazine 500 mg oral ER Tab, 1000 mg= 2 tab(s), Oral, BID Toprol XL 100 mg Tab-ER, 200 mg= 2 tab(s (more content not included)... [facility] Comment on above: Result Comment: Elec tronically Signed By: WILLIAM NIELSON, Jose Luis Jin\Date and Time Signed: 08/29/23 15:00 EST 08-16-2023 Hospital Discharge instructions Patient Education 08/16/2023 08:37:21 Dietary Guidelines to Help Prevent Kidney Stones Dietary Guidelines to Help Prevent Kidney Stones Kidney stones are deposits of minerals and salts that form inside your kidneys. Your risk of developing kidney stones may be greater depending on your diet, your lifestyle, the medicines you take, and whether you have certain medical conditions. Most people can lower their chances of developing kidney stones by following the instructions below. Your dietitian may give you more specific instructions depending on your overall health and the type of kidney stones you tend to develop. What are tips for following this plan? Reading food labels Choose foods with no salt added or low-salt labels. Limit your salt (sodium) intake to less than 1,500 mg a day. Choose foods with calcium for each meal and snack. Try to eat about 300 mg of calcium at each meal. Foods that contain 200 500 mg of calcium a serving include: ?8 oz (237 mL) of milk, uhzezyb-cdrompbbxgxj-ooyvc milk, and calcium-fortifiedfruit juice. Calcium-fortified means that calcium has been added to these drinks. ?8 oz (237 mL) of kefir, yogurt, and soy yogurt. ?4 oz (114 g) of tofu. ?1 oz (28 g) of cheese. ?1 cup (150 g) of dried figs. ?1 cup (91 g) of cooked broccoli. ?One 3 oz (85 g) can of sardines or mackerel. Most people need 1,000 1,500 mg of calcium a day. Talk to your dietitian about how much calcium is recommended for you. Shopping Buy plenty of fresh fruits and vegetables. Most people do not need to avoid fruits and vegetables, even if these foods contain nutrients that may contribute to kidney stones. When shopping for convenience foods, choose: ?Whole pieces of fruit. ?Pre-made salads with dressing on the side. ?Low-fat fruit and yogurt smoothies. Avoid buying frozen meals or prepared deli foods. These can be high in sodium. Look for foods with live cultures, such as yogurt and kefir. Choose high-fiber grains, such as whole-wheat breads, oat bran, and wheat cereals. Cooking Do not add salt to food when cooking. Place a salt shaker on the table and allow each person to add his or her own salt to taste. Use vegetable protein, such as beans, textured vegetable protein (TVP), or tofu, instead of meat in pasta, casseroles, and soups. Meal planning Eat less salt, if told by your dietitian. To do this: ?Avoid eating processed or pre-made food. ?Avoid eating fast food. Eat less animal protein, including cheese, meat, poultry, or fish, if told by your dietitian. To do this: ?Limit the number of times you have meat, poultry, fish, or cheese each week. Eat a diet free of meat at least 2 days a week. ?Eat only one serving each day of meat, poultry, fish, or seafood. ?When you prepare animal protein, cut pieces into small portion sizes. For most meat and fish, one serving is about the size of the palm of your hand. Eat at least five servings of fresh fruits and vegetables each day. To do this: ?Keep fruits and vegetables on hand for snacks. ?Eat one piece of fruit or a handful of berries with breakfast. ?Have a salad and fruit at lunch. ?Have two kinds of vegetables at dinner. Limit foods that are high in a substance called oxalate. These include: ?Spinach (cooked), rhubarb, beets, sweet potatoes, and Barb[place] chard. ?Peanuts. ?Potato chips, romanian fries, and baked potatoes with skin on. ?Nuts and nut products. ?Chocolate. If you regularly take a diuretic medicine, make sure to eat at least 1 or 2 servings of fruits or vegetables that are high in potassium each day. These include: ?Avocado. ?Banana. ?Reynolds, prune, carrot, or tomato juice. ?Baked potato. ?Cabbage. ?Beans and split peas. Lifestyle Drink enough fluid to keep your urine pale yellow. This is the most important thing you can do. Spread your fluid intake throughout the day. If you drink alcohol: ?Limit how much you use to: ?0 1 drink a day for women who are not . ?0 2 drinks a day for men. ?Be aware of how much alcohol is in your drink. In the [place] one drink equals one 12 oz bottle of beer (355 mL), one 5 oz glass of wine (148 mL), or one 1 oz glass of hard liquor (44 mL). Lose weight if told by your health care provider. Work with your dietitian to find an eating plan and weight loss strategies that work best for you. General information Talk to your health care provider and dietitian about taking daily supplements. You may be told the following depending on your health and the cause of your kidney stones: ?Not to take supplements with vitamin C. ?To take a calcium supplement. ?To take a daily probiotic supplement. ?To take other supplements such as magnesium, fish oil, or vitamin B6. Take jsdn-nhl-ijfqtjp and prescription medicines only as told by your health care provider. These include supplements. What foods should I limit? Limit your intake of the following foods, or eat them as told by your dietitian. Vegetables Spinach. Rhubarb. Beets. Canned vegetables. Pickles. Olives. Baked potatoes with skin. Grains Wheat bran. Baked goods. Salted crackers. Cereals high in sugar. Meats and other proteins Nuts. Nut butters. Large portions of meat, poultry, or fish. Salted, precooked, or cured meats, such as sausages, meat loaves, and hot dogs. Dairy Cheese. Beverages Regular soft drinks. Regular vegetable juice. Seasonings and condiments Seasoning blends with salt. Salad dressings. Soy sauce. Ketchup. Barbecue sauce. Other foods Canned soups. Canned pasta sauce. Casseroles. Pizza. Lasagna. Frozen meals. Potato chips. German fries. The items listed above may not be a complete list of foods and beverages you should limit. Contact a dietitian for more information. What foods should I avoid? Talk to your dietitian about specific foods you should avoid based on the type of kidney stones you have and your overall health. Fruits Grapefruit. The item listed above may not be a complete list of foods and beverages you should avoid. Contact a dietitian for more information. Summary Kidney stones are deposits of minerals and salts that form inside your kidneys. You can lower your risk of kidney stones by making changes to your diet. The most important thing you can do is drink enough fluid. Drink enough fluid to keep your urine pale yellow. Talk to your dietitian about how much calcium you should have each day, and eat less salt and animal protein as told by your dietitian. This information is not intended to replace advice given to you by your health care provider. Make sure you discuss any questions you have with your health care provider. Document Revised: 06/13/2022 Document Reviewed: 06/13/2022 Utility Funding Patient Education 2022 [employer]. Follow Up Care 08/08/2023 13:37:21 With:Teo NIELSON, SHERRY Nicole, [facility] Address: When: Unknown Comments:[facility] 06-21-2023 Note [facility] Cardiology - [facility] Subjective Marcelle Deutsch is a 63 y.o. year old male patient being seen for Follow-up (6 month F/U) Patient Active Problem List Diagnosis Abnormal stress test Atrial fibrillation (CMS/HCC) CAD (coronary artery disease) Coronary arteriosclerosis Chronic anticoagulation Dyslipidemia Hypertension Metabolic syndrome Family History Problem Relation Name Age of Onset Coronary artery disease Father Atrial fibrillation Father Heart attack Brother Social History Tobacco Use Smoking status: Former Types: Cigarettes Quit date: 2013 Years since quittin.6 Smokeless tobacco: Never Substance Use Topics Alcohol use: Yes Comment: occasional HPI He is a 63 yo man with prior history of: 1. CAD s/p cardiac cath in 2013 in the setting of an abnormal stress test that showed SCRAPER BURRER of the RCA with filling via left to right collaterals. He also had a 70% stenosis in a diagonal branch (the prior report mentions that it is not amenable to intervention). At that time left-ventricular gram showed normal left ventricular ejection fraction at 60%. 2. Paroxysmal atrial fibrillation, status post ablation in 2017 at the [facility]. He also had prior cardioversion. He is currently maintained on Xarelto 20 mg daily. 3. Hypertension: He reports that he has elevated blood pressure every time he goes to the doctor's office or even when he checks it himself at home. His blood pressure has been controlled at home, with average of 123/74. In the past few months when I saw him at last visit in November 2022 he was having symptoms of angina with stress and exertion. I had added Ranexa. I checked a stress test that did not show ischemia. His echocardiogram showed preserved ventricular and valvular function. Today he reports that he has done very well on Ranexa. He gets very little if any anginal symptoms. He does not have shortness of breath, palpitations. He has mild lower extremity edema. He does not have claudication. He gets occasional episodes of atrial fibrillation. He has a [employer] machine that he uses to transmit ECG. This shows AF episodes that later revert to SR. Review of Systems Cardiovascular: Positive for leg swelling. All other systems reviewed and are negative. Objective Visit Vitals BP 179/72 (BP Location: Right arm, Patient Position: Sitting, BP Cuff Size: Adult) Pulse 66 Wt 88.7 kg (195 lb 9.6 oz) SpO2 99% BMI 28.07 kg/m??? Smoking Status Former BSA 2.09 m??? Physical Exam Constitutional: Appearance: He is well-developed. He is not ill-appearing. HENT: Head: Normocephalic and atraumatic. Nose: Nose normal. Eyes: General: No scleral icterus. Pupils: Pupils are equal, round, and reactive to light. Neck: Thyroid: No thyromegaly. Vascular: No JVD. Cardiovascular: Rate and Rhythm: Normal rate and regular rhythm. Pulses: Radial pulses are 2+ on the right side and 2+ on the left side. Heart sounds: Normal heart sounds. No murmur heard. No friction rub. No gallop. Pulmonary: Effort: Pulmonary effort is normal. No respiratory distress. Breath sounds: Normal breath sounds. No wheezing or rales. Chest: Chest wall: No tenderness. Abdominal: General: Bowel sounds are normal. There is no distension. Palpations: Abdomen is soft. Tenderness: There is no abdominal tenderness. Musculoskeletal: General: No swelling. Cervical back: Neck supple. Right lower le+ Pitting Edema present. Left lower le+ Pitting Edema present. Skin: General: Skin is warm and dry. Neurological: General: No focal deficit present. Mental Status: He is alert and oriented to person, place, and time. Psychiatric: Mood and Affect: Mood normal. Behavior: Behavior is cooperative. Judgment: Judgment normal. Allergies Allergies Allergen Reactions Penicillins Hives Medications Current Outpatient Medications: amLODIPine (Norvasc) 5 mg tablet, TAKE 1 TABLET IN THE MORNING, Disp: 90 tablet, Rfl: 3 aspirin 81 mg chewable tablet, aspirin 81 mg chewable tablet, Disp: , Rfl: atorvastatin (Lipitor) 80 mg tablet, TAKE 1 TABLET IN THE MORNING, Disp: 90 tablet, Rfl: 3 cloNIDine (Catapres) 0.1 mg tablet, TAKE 1 TABLET IN THE MORNING AND AT BEDTIME, Disp: 180 tablet, Rfl: 3 dilTIAZem (Cardizem) 30 mg immediate release tablet, if needed. PRN, Disp: , Rfl: isosorbide mononitrate ER (Imdur) 120 mg 24 hr tablet, TAKE 1 TABLET IN THE MORNING, Disp: 90 tablet, Rfl: 3 lisinopril 20 mg tablet, lisinopril 20 mg tablet, Disp: , Rfl: metFORMIN (Glucophage) 500 mg tablet, metformin 500 mg tablet TAKE TWO TABLETS BY MOUTH TWICE A DAY, Disp: , Rfl: metoprolol succinate XL (Toprol-XL) 200 mg 24 hr tablet, TAKE 1 TABLET IN THE MORNING, Disp: 90 tablet, Rfl: 3 omeprazole (PriLOSEC) [address] capsule, omeprazole 20 mg capsule,delayed release, Disp: , Rfl: Xarelto 20 mg tablet, Take 1 tablet (20 mg) by mouth (more content not included)... [facility] 01-04-2023 Note CARDIAC STRESS TEST Requesting Physician: Blanka Gore M.D. Procedure Date:01/04/2023 PERFORMING PHYSICIAN: Geoff White M.D. INDICATION: CAD, angina. STRESS TEST TYPE: Lexiscan myocardial perfusion scan. Resting EKG: Sinus bradycardia. Resting heart rate: 51 Peak heart rate: 68 Peak maximal heart rate: 43% Resting blood pressure: 122/90 Peak blood pressure: 132/90 Reason for termination: End of protocol. Blood pressure response: Normal. ST changes: None. Symptoms: None. Arrhythmias: None. CONCLUSION: 1. No evidence of ischemia on Lexiscan EKG portion of stress test. 2. Please refer to separately interpreted and reported myocardial perfusion scan findings. [facility] 04-01-2022 Hospital Discharge instructions Patient Education 04/01/2022 13:38:44 Dyslipidemia Dyslipidemia Dyslipidemia is an imbalance of waxy, fat-like substances (lipids) in the blood. The body needs lipids in small amounts. Dyslipidemia often involves a high level of cholesterol or triglycerides, which are types of lipids. Common forms of dyslipidemia include: High levels of LDL cholesterol. LDL is the type of cholesterol that causes fatty deposits (plaques) to build up in the blood vessels that carry blood away from your heart (arteries). Low levels of HDL cholesterol. HDL cholesterol is the type of cholesterol that protects against heart disease. High levels of HDL remove the LDL buildup from arteries. High levels of triglycerides. Triglycerides are a fatty substance in the blood that is linked to a buildup of plaques in the arteries. What are the causes? Primary dyslipidemia is caused by changes (mutations) in genes that are passed down through families (inherited). These mutations cause several types of dyslipidemia. Secondary dyslipidemia is caused by lifestyle choices and diseases that lead to dyslipidemia, such as: Eating a diet that is high in animal fat. Not getting enough exercise. Having diabetes, kidney disease, liver disease, or thyroid disease. Drinking large amounts of alcohol. Using certain medicines. What increases the risk? You are more likely to develop this condition if you are an older man or if you are a woman who has gone through menopause. Other risk factors include: Having a family history of dyslipidemia. Taking certain medicines, including control pills, steroids, some diuretics, and beta-blockers. Smoking cigarettes. Eating a high-fat diet. Having certain medical conditions such as diabetes, polycystic ovary syndrome (PCOS), kidney disease, liver disease, or hypothyroidism. Not exercising regularly. Being overweight or obese with too much belly fat. What are the signs or symptoms? In most cases, dyslipidemia does not usually cause any symptoms. In severe cases, very high lipid levels can cause: Fatty bumps under the skin (xanthomas). White or lucia ring around the black center (pupil) of the eye. Very high triglyceride levels can cause inflammation of the pancreas (pancreatitis). How is this diagnosed? Your health care provider may diagnose dyslipidemia based on a routine blood test (fasting blood test). Because most people do not have symptoms of the condition, this blood testing (lipid profile) is done on adults age 20 and older and is repeated every 5 years. This test checks: Total cholesterol. This measures the total amount of cholesterol in your blood, including LDL cholesterol, HDL cholesterol, and triglycerides. A healthy number is below 200. LDL cholesterol. The target number for LDL cholesterol is different for each person, depending on individual risk factors. Ask your health care provider what your LDL cholesterol should be. HDL cholesterol. An HDL level of 60 or higher is best because it helps to protect against heart disease. A number below 40 for men or below 50 for women increases the risk for heart disease. Triglycerides. A healthy triglyceride number is below 150. If your lipid profile is abnormal, your health care provider may do other blood tests. How is this treated? Treatment depends on the type of dyslipidemia that you have and your other risk factors for heart disease and stroke. Your health care provider will have a target range for your lipid levels based on this information. For many people, this condition may be treated by lifestyle changes, such as diet and exercise. Your health care provider may recommend that you: Get regular exercise. Make changes to your diet. Quit smoking if you smoke. If diet changes and exercise do not help you reach your goals, your health care provider may also prescribe medicine to lower lipids. The most commonly prescribed type of medicine lowers your LDL cholesterol (statin drug). If you have a high triglyceride level, your provider may prescribe another type of drug (fibrate) or an omega-3 fish oil supplement, or both. Follow these instructions at home: Eating and drinking Follow instructions from your health care provider or dietitian about eating or drinking restrictions. Eat a healthy diet as told by your health care provider. This can help you reach and maintain a healthy weight, lower your LDL cholesterol, and raise your HDL cholesterol. This may include: ?Limiting your calories, if you are overweight. ?Eating more fruits, vegetables, whole grains, fish, and lean meats. ?Limiting saturated fat, trans fat, and cholesterol. If you drink alcohol: ?Limit how much you use. ?Be aware of how much alcohol is in your drink. In the [place] one drink equals one 12 oz bottle of beer (355 mL), one 5 oz glass of wine (148 mL), or one 1 oz glass of hard liquor (44 mL). Do not drink alcohol if: ?Your health care provider tells you not to drink. ?You are , may be , or are planning to become . Activity Get regular exercise. Start an exercise and strength training program as told by your health care provider. Ask your health care provider what activities are safe for you. Your health care provider may recommend: ?30 minutes of aerobic activity 4 6 days a week. Brisk walking is an example of aerobic activity. ?Strength training 2 days a week. General instructions Do not use any products that contain nicotine or tobacco, such as cigarettes, e-cigarettes, and chewing tobacco. If you need help quitting, ask your health care provider. Take nyct-ite-esgavkx and prescription medicines only as told by your health care provider. This includes supplements. Keep all follow-up visits as told by your health care provider. Contact a health care provider if: You are: ?Having trouble sticking to your exercise or diet plan. ?Struggling to quit smoking or control your use of alcohol. Summary Dyslipidemia often involves a high level of cholesterol or triglycerides, which are types of lipids. Treatment depends on the type of dyslipidemia that you have and your other risk factors for heart disease and stroke. For many people, treatment starts with lifestyle changes, such as diet and exercise. Your health care provider may prescribe medicine to lower lipids. This information is not intended to replace advice given to you by your health care provider. Make sure you discuss any questions you have with your health care provider. Document Released: 10/07/2014 Document Revised: 05/27/2019 Document Reviewed: 05/03/2019 Utility Funding Patient Education 2020 [employer]. 04/01/2022 13:38:40 Hyperglycemia Hyperglycemia Hyperglycemia occurs when the level of sugar (glucose) in the blood is too high. Glucose is a type of sugar that provides the body's main source of energy. Certain hormones (insulin and glucagon) control the level of glucose in the blood. Insulin lowers blood glucose, and glucagon increases blood glucose. Hyperglycemia can result from having too little insulin in the bloodstream, or from the body not responding normally to insulin. Hyperglycemia occurs most often in people who have diabetes (diabetes mellitus), but it can happen in people who do not have diabetes. It can develop quickly, and it can be life-threatening if it causes you to become severely dehydrated (diabetic ketoacidosis or hyperglycemic hyperosmolar state). Severe hyperglycemia is a medical emergency. What are the causes? If you have diabetes, hyperglycemia may be caused by: Diabetes medicine. Medicines that increase blood glucose or affect your diabetes control. Not eating enough, or not eating often enough. Changes in physical activity level. Being sick or having an infection. If you have prediabetes or undiagnosed diabetes: Hyperglycemia may be caused by those conditions. If you do not have diabetes, hyperglycemia may be caused by: Certain medicines, including steroid medicines, beta-blockers, epinephrine, and thiazide diuretics. Stress. Serious illness. Surgery. Diseases of the pancreas. Infection. What increases the risk? Hyperglycemia is more likely to develop in people who have risk factors for diabetes, such as: Having a family member with diabetes. Having a gene for type 1 diabetes that is passed from parent to child (inherited). Living in an area with cold weather conditions. Exposure to certain viruses. Certain conditions in which the body's disease-fighting (immune) system attacks itself (autoimmune disorders). Being overweight or obese. Having an inactive (sedentary) lifestyle. Having been diagnosed with insulin resistance. Having a history of prediabetes, gestational diabetes, or polycystic ovarian syndrome (PCOS). Being of [place]ian, -[place], /, or / descent. What are the signs or symptoms? Hyperglycemia may not cause any symptoms. If you do have symptoms, they may include early warning signs, such as: Increased thirst. Hunger. Feeling very tired. Needing to urinate more often than usual. Blurry vision. Other symptoms may develop if hyperglycemia gets worse, such as: Dry mouth. Loss of appetite. Fruity-smelling breath. Weakness. Unexpected or rapid weight gain or weight loss. Tingling or numbness in the hands or feet. Headache. Skin that does not quickly return to normal after being lightly pinched and released (poor skin turgor). Abdominal pain. Cuts or bruises that are slow to heal. How is this diagnosed? Hyperglycemia is diagnosed with a blood test to measure your blood glucose level. This blood test is usually done while you are having symptoms. Your health care provider may also do a physical exam and review your medical history. You may have more tests to determine the cause of your hyperglycemia, such as: A fasting blood glucose (FBG) test. You will not be allowed to eat (you will fast) for at least 8 hours before a blood sample is taken. An A1c (hemoglobin A1c) blood test. This provides information about blood glucose control over the previous 2 3 months. An oral glucose tolerance test (OGTT). This measures your blood glucose at two times: ?After fasting. This is your baseline blood glucose level. ?Two hours after drinking a beverage that contains glucose. How is this treated? Treatment depends on the cause of your hyperglycemia. Treatment may include: Taking medicine to regulate your blood glucose levels. If you take insulin or other diabetes medicines, your medicine or dosage may be adjusted. Lifestyle changes, such as exercising more, eating healthier foods, or losing weight. Treating an illness or infection, if this caused your hyperglycemia. Checking your blood glucose more often. Stopping or reducing steroid medicines, if these caused your hyperglycemia. If your hyperglycemia becomes severe and it results in hyperglycemic hyperosmolar state, you must be hospitalized and given IV fluids. Follow these instructions at home: General instructions Take srno-owr-vagrfhx and prescription medicines only as told by your health care provider. Do not use any products that contain nicotine or tobacco, such as cigarettes and e-cigarettes. If you need help quitting, ask your health care provider. Limit alcohol intake to no more than 1 drink per day for non women and 2 drinks per day for men. One drink equals 12 oz of beer, 5 oz of wine, or 1 oz of hard liquor. Learn to manage stress. If you need help with this, ask your health care provider. Keep all follow-up visits as told by your health care provider. This is important. Eating and drinking Maintain a healthy weight. Exercise regularly, as directed by your health care provider. Stay hydrated, especially when you exercise, get sick, or spend time in hot temperatures. Eat healthy foods, such as: ?Lean proteins. ?Complex carbohydrates. ?Fresh fruits and vegetables. ?Low-fat dairy products. ?Healthy fats. Drink enough fluid to keep your urine clear or pale yellow. If you have diabetes: Make sure you know the symptoms of hyperglycemia. Follow your diabetes management plan, as told by your health care provider. Make sure you: ?Take your insulin and medicines as directed. ?Follow your exercise plan. ?Follow your meal plan. Eat on time, and do not skip meals. ?Check your blood glucose as often as directed. Make sure to check your blood glucose before and after exercise. If you exercise longer or in a different way than usual, check your blood glucose more often. ?Follow your sick day plan whenever you cannot eat or drink normally. Make this plan in advance with your health care provider. Share your diabetes management plan with people in your workplace, school, and household. Check your urine for ketones when you are ill and as told by your health care provider. Carry a medical alert card or wear medical alert jewelry. Contact a health care provider if: Your blood glucose is at or above 240 mg/dL (13.3 mmol/L) for 2 days in a row. You have problems keeping your blood glucose in your target range. You have frequent episodes of hyperglycemia. Get help right away if: You have difficulty breathing. You have a change in how you think, feel, or act (mental status). You have nausea or vomiting that does not go away. These symptoms may represent a serious problem that is an emergency. Do not wait to see if the symptoms will go away. Get medical help right away. Call your local emergency services (911 in the [place] Do not drive yourself to the hospital. Summary Hyperglycemia occurs when the level of sugar (glucose) in the blood is too high. Hyperglycemia is diagnosed with a blood test to measure your blood glucose level. This blood test is usually done while you are having symptoms. Your health care provider may also do a physical exam and review your medical history. If you have diabetes, follow your diabetes management plan as told by your health care provider. Contact your health care provider if you have problems keeping your blood glucose in your target range. This information is not intended to replace advice given to you by your health care provider. Make sure you discuss any questions you have with your health care provider. Document Released: 03/28/2002 Document Revised: 06/19/2017 Document Reviewed: 06/19/2017 Utility Funding Patient Education 2020 [employer]. 04/01/2022 13:38:33 Atrial Fibrillation Atrial Fibrillation Atrial fibrillation is a type of irregular or rapid heartbeat (arrhythmia). In atrial fibrillation, the top part of the heart (atria) quivers in a chaotic pattern. This makes the heart unable to pump blood normally. Having atrial fibrillation can increase your risk for other health problems, such as: Blood can pool in the atria and form clots. If a clot travels to the brain, it can cause a stroke. The heart muscle may weaken from the irregular blood flow. This can cause heart failure. Atrial fibrillation may start suddenly and stop on its own, or it may become a long-lasting problem. What are the causes? This condition is caused by some heart-related conditions or procedures, including: High blood pressure. This is the most common cause. Heart failure. Heart valve conditions. Inflammation of the sac that surrounds the heart (pericarditis). Heart surgery. Coronary artery disease. Certain heart rhythm disorders, such as Polanco Parkinson White syndrome. Other causes include: Pneumonia. Obstructive sleep apnea. Lung cancer. Thyroid problems, especially if the thyroid is overactive (hyperthyroidism). Excessive alcohol or drug use. Sometimes, the cause of this condition is not known. What increases the risk? This condition is more likely to develop in: Older people. People who smoke. People who have diabetes mellitus. People who are overweight (obese). Athletes who exercise vigorously. People who have a family history. What are the signs or symptoms? Symptoms of this condition include: A feeling that your heart is beating rapidly or irregularly. A feeling of discomfort or pain in your chest. Shortness of breath. Sudden light-headedness or weakness. Getting tired easily during exercise. In some cases, there are no symptoms. How is this diagnosed? Your health care provider may be able to detect atrial fibrillation when taking your pulse. If detected, this condition may be diagnosed with: Electrocardiogram (ECG). Ambulatory hospital monitor. This device records your heartbeats for 24 hours or more. Transthoracic echocardiogram (TTE) to evaluate how blood flows through your heart. Transesophageal echocardiogram (LINNETTE) to view more detailed images of your heart. A stress test. Imaging tests, such as a CT scan or chest X-ray. Blood tests. How is this treated? This condition may be treated with: Medicines to slow down the heart rate or bring the heart's rhythm back to normal. Medicines to prevent blood clots from forming. Electrical cardioversion. This delivers a low-energy shock to the heart to reset its rhythm. Ablation. This procedure destroys the part of the heart tissue that sends abnormal signals. Left atrial appendage occlusion/excision. This seals off a common place in the atria where blood clots can form (left atrial appendage). The goal of treatment is to prevent blood clots from forming and to keep your heart beating at a normal rate and rhythm. Treatment depends on underlying medical conditions and how you feel when you are experiencing fibrillation. Follow these instructions at home: Medicines Take over-the counter and prescription medicines only as told by your health care provider. If your health care provider prescribed a blood-thinning medicine (anticoagulant), take it exactly as told. Taking too much blood-thinning medicine can cause bleeding. Taking too little can enable a blood clot to form and travel to the brain, causing a stroke. Lifestyle Do not use any products that contain nicotine or tobacco, such as cigarettes and e-cigarettes. If you need help quitting, ask your health care provider. Do not drink beverages that contain caffeine, such as coffee, soda, and tea. Follow diet instructions as told by your health care provider. Exercise regularly as told by your health care provider. Do not drink alcohol. General instructions If you have obstructive sleep apnea, manage your condition as told by your health care provider. Maintain a healthy weight. Do not use diet pills unless your health care provider approves. Diet pills may make heart problems worse. Keep all follow-up visits as told by your health care provider. This is important. Contact a health care provider if you: Notice a change in the rate, rhythm, or strength of your heartbeat. Are taking an anticoagulant and you notice increased bruising. Tire more easily when you exercise or exert yourself. Have a sudden change in weight. Get help right away if you have: Chest pain, abdominal pain, sweating, or weakness. Difficulty breathing. Blood in your vomit, stool (feces), or urine. Any symptoms of a stroke. BE FAST is an easy way to remember the main warning signs of a stroke: ?B - Balance. Signs are dizziness, sudden trouble walking, or loss of balance. ?E - Eyes. Signs are trouble seeing or a sudden change in vision. ?F - Face. Signs are sudden weakness or numbness of the face, or the face or eyelid drooping on one side. ?A - Arms. Signs are weakness or numbness in an arm. This happens suddenly and usually on one side of the body. ?S - Speech. Signs are sudden trouble speaking, slurred speech, or trouble understanding what people say. ?T - Time. Time to call emergency services. Write down what time symptoms started. Other signs of a stroke, such as: ?A sudden, severe headache with no known cause. ?Nausea or vomiting. ?Seizure. These symptoms may represent a serious problem that is an emergency. Do not wait to see if the symptoms will go away. Get medical help right away. Call your local emergency services (911 in the [place] Do not drive yourself to the hospital. Summary Atrial fibrillation is a type of irregular or rapid heartbeat (arrhythmia). Symptoms include a feeling that your heart is beating fast or irregularly. In some cases, you may not have symptoms. The condition is treated with medicines to slow down the heart rate or bring the heart's rhythm back to normal. You may also need blood-thinning medicines to prevent blood clots. Get help right away if you have symptoms or signs of a stroke. This information is not intended to replace advice given to you by your health care provider. Make sure you discuss any questions you have with your health care provider. Document Released: 10/02/2006 Document Revised: 11/22/2018 Document Reviewed: 11/23/2018 Utility Funding Patient Education 2020 [employer]. 04/01/2022 13:38:29 Pinched Nerve Pinched Nerve A pinched nerve is an injury that occurs when too much pressure is placed on a nerve. This pressure can cause pain, burning, and muscle weakness in places that the nerve supplies feeling to, such as an arm, hand, or leg, or the back or neck. If a nerve is severely pinched or has been pinched for a long time, permanent nerve damage can occur. What are the causes? This condition may be caused by: A nerve passing through a narrow area between bones or other body structures. Arthritis that causes bones to press on a nerve. Loss of blood supply to a nerve. A nerve being stretched from an injury. A sudden injury with swelling. Long-term wear on the nerve. Age-related changes in the spine. What are the signs or symptoms? The most common symptoms of a pinched nerve are feeling a tingling sensation and numbness. Other symptoms include: Pain that spreads from one area of the body part to another. A burning feeling. Muscle weakness. How is this diagnosed? This condition may be diagnosed based on: A physical exam. During the exam, your health care provider will: ?Check for numbness and muscle weakness. ?Move affected body parts to test for pain. X-rays to check for bone damage. A MRI or CT scan to check for conditions that may be causing nerve damage. A muscle test (electromyogram, EMG) to evaluate how your muscles and nerves communicate. How is this treated? A pinched nerve is usually treated first by: Resting the affected body area. Using devices to help you move without pain (supportive or protective devices), such as a splint, brace, or neck collar. Other treatments depend on your symptoms and the amount of nerve damage you have. Other treatments may include: Medicines, such as: ?Injections of numbing medicine. ?NSAIDs. ?Pain medicines. ?Steroid medicines. These may be given as a pill or as an injection. Physical therapy to relieve pain, maintain movement, and improve muscle strength. Surgery. This may be done if other treatments do not work. Follow these instructions at home: Take qiip-wbd-kalyfhh and prescription medicines only as told by your health care provider. Wear supportive or protective devices as told by your health care provider. Do physical therapy exercises as directed. Ask your health care provider what activities are safe for you. Rest as needed. If directed, put ice on the affected area: ?Put ice in a plastic bag. ?Place a towel between your skin and the bag. ?Leave the ice on for 20 minutes, 2 3 times a day. If directed, apply heat to the affected area. Use the heat source that your health care provider recommends, such as a moist heat pack or a heating pad. ?Place a towel between your skin and the heat source. ?Leave the heat on for 20 30 minutes. ?Remove the heat if your skin turns bright red. This is especially important if you are unable to feel pain, heat, or cold. You may have a greater risk of getting burned. Do not drive or use heavy machinery while taking prescription pain medicine. Keep all follow-up visits as told by your health care provider. This is important. Contact a health care provider if: Your condition does not improve with treatment. Your pain, numbness, or weakness suddenly gets worse. Get help right away if you: Have loss of bladder control (urinary incontinence) or you cannot urinate. Cannot control bowel movements (fecal incontinence). Have new weakness in your arms or legs. Summary A pinched nerve is an injury that occurs when too much pressure is placed on a nerve. This pressure can cause pain, burning, and muscle weakness in places that the nerve supplies feeling to, such as an arm, hand, or leg, or the back or neck. Take rtjo-gkh-apueaac and prescription medicines only as told by your health care provider. Ask your health care provider what activities are safe for you while you are having symptoms. This information is not intended to replace advice given to you by your health care provider. Make sure you discuss any questions you have with your health care provider. Document Released: 09/22/2003 Document Revised: 10/19/2018 Document Reviewed: 10/16/2018 [employer] Patient Education 2019 [employer]. [facility] 02-03-2022 Note HNO ID: [id number] Author: Jannet Gonzalez MD Service: ? Author Type: Physician Type: Progress Notes Filed: 02/03/2022 9:58 AM Note Text: [facility] [place] Emiliano Plascencia Department of Cardiovascular Medicine SECTION OF CARDIAC PACING and ELECTROPHYSIOLOGY OUTPATIENT VISIT DATE February 03, 2022 OUTPATIENT VISIT TYPE CONSULTATION PRIMARY CARE PHYSICIAN: Mark Browning DO [address] [place] [address] CHIEF COMPLAINT: PAF HISTORY OF PRESENT ILLNESS (includes edited nursing intake history): Cardiac consultation at the request of Dr. Hina Green.A copy of this consultation note will be provided to the requesting physician by way of shared Medical record or letter to requesting physician via [place] mail. Marcelle Deutsch is a 61 y/o male who presents for atrial fibrillation. He has a history of atrial fibrillation, s/p PVI ablation 07/10/2017 ([facility]), atrial flutter s/p DCCV 07/28/2017, CAD, white coat/liable HTN. He is a former patient of Dr Green and was last seen in office 11/28/2017 by GIFTY Gtz. He was previously maintained on metoprolol and propafenone. His propafenone was PRN after October of 2017. He was seen at his local ED for an episode of atrial fibrillation in August 2021 and converted with medication. He was seen by a local EP a month or two later and was started on amiodarone. He was recommended to undergo another ablation. He was unable to tolerate amiodarone due to nausea and fatigued. He reports having episodes of atrial fibrillation every several months. The episodes can last 30 minutes up to a couple of days. He is very symptomatic with episodes. He reports having chest pain for several hours with episodes. He endorses shortness of breath, palpitations, and lightheadedness with episodes. He feels well overall when he is in SR. He denies syncope. [id number] 3 (HTN, CAD, DM) tolerating Xarelto PAST MEDICAL HISTORY Diagnosis Date - Atrial fibrillation (HCC) 2013 - CAD (coronary artery disease) 09/02/2014 - Diabetes mellitus (HCC) - Dyslipidemia - Hypertension - Metabolic syndrome PAST SURGICAL HISTORY Procedure Laterality Date - AFIB PVI W/COMPL EP STUDY 07/10/2017 - CARDIAC CATH 09/02/2014 SCRAPER BURRER of proximal RCA. 70% ostial D1. Preserved ejection fraction - EMG - PAST SURGICAL HISTORY OF right shoulder surgery SOCIAL HISTORY Social History Tobacco Use - Smoking status: Former Smoker Packs/day: 0.50 Types: Cigarettes Start date: 10/25/1957 Quit date: 08/09/2014 Years since quittin.4 - Smokeless tobacco: Never Used Substance Use Topics - Alcohol use: Yes Alcohol/week: 15.0 standard drinks Types: 6 Cans of Beer (12oz) per week - Drug use: No No family history on file.ALLERGIES: ALLERGIES Allergen Reactions - Penicillins Hives MEDICATIONS: amLODIPine (NORVASC) 5 mg tablet amlodipine 5 mg tablet TAKE ONE TABLET BY MOUTH DAILY atorvastatin (LIPITOR) 80 mg tablet atorvastatin 80 mg tablet cloNIDine HCl (CATAPRES) 0.1 mg tablet clonidine HCl 0.1 mg tablet TAKE ONE TABLET BY MOUTH TWICE A DAY isosorbide mononitrate ER (IMDUR) 120 mg 24 hr tablet 120 mg once daily. lisinopril (ZESTRIL, PRINIVIL) 20 mg tablet lisinopril 20 mg tablet TAKE ONE TABLET BY MOUTH ONCE DAILY metFORMIN (GLUCOPHAGE) 500 mg tablet metformin 500 mg tablet TAKE TWO TABLETS BY MOUTH TWICE A DAY metoprolol succinate ER (TOPROL XL) 200 mg 24 hr tablet Take 200 mg by mouth once daily. rivaroxaban (XARELTO) 20 mg tablet Take 1 tablet by mouth once daily. omeprazole (PRILOSEC) 20 mg capsule Take 1 capsule by mouth once daily. REVIEW OF SYSTEMS: General, constitutional: Weight loss or gain- No, Fever or chills-No, Weakness-No, Trouble sleeping-No. Head, Eyes, Ears, Mouth: Headache, head injury-No, Glasses or contact lenses-No, Pain-No, Impaired vision-No, Decreased hearing-No, Ringing in ears-yes, Nose bleeds-No, Dental difficulties-No, Bleeding gums-No, Dentures-No. Neck: Swelling-No, Pain-yes, Stiffness-yes. Respiratory: Cough-No, Spitting up blood-No, Shortness of breath-No, Wheezing or asthma-No. Musculoskeletal: Muscle or joint pain or stiffness-yes, Joint swelling-No. Gastrointestinal: Difficulty swallowing-No, Heartburn-No, Change in bowel habits-No, Blood in stool, Dark black stools-No. Neurological/Psychiatric: Weakness, paralysis-No, Numbness-yes, Tingling-yes, Tremor-No, Nervousness or anxiety-No, Depressed mood-No, Memory loss-No. Skin: Rash-No, Itching-No. Hematological: Easy bruising-yes, Easy bleeding-yes. Endocrine: Heat or cold intolerance-yes, Excessive sweating-No, Frequent urination-No, Frequent thirst-No. Mavis Canales RN PHYSICAL EXAMINATION: BP 180/76 Pulse 60 Ht 176.5 cm (5' 9.5 ) Wt 85.3 kg (188 lb) BMI 27.36 kg/m? Notes Home BP readings run low 100s/50s This AM 103/71 per patient General: L (more content not included)... [facility] Evaluation + Plan note No data available for this section [facility] Evaluation + Plan note Future Appointments Appointment Date:01/03/2024 08:00:00 AM Scheduled Provider: Location:[facility] Appointment Type:FM Medicare Wellness [facility] Appointment Date:01/03/2024 08:40:00 AM Scheduled Provider:Ursula Love MD Location:[facility] Appointment Type:FM Open Diagnostic Tests PendingPSA Free & Total 07/03/23Microalbumin Level Urine 07/03/23U Protein/Creat Ratio 07/03/23 [facility] Evaluation + Plan note Future Appointments Appointment Date:01/03/2024 08:00:00 AM Scheduled Provider: Location:[facility] Appointment Type:FM Medicare Wellness [place] Appointment Date:01/03/2024 08:40:00 AM Scheduled Provider:Ursula Love MD Location:[facility] Appointment Type: Open [facility] Evaluation + Plan note Future Appointments Appointment Date:08/29/2023 02:20:00 PM Scheduled Provider:Jose Luis THOMAS MD [facility] Type: Appointment Date:01/03/2024 08:00:00 AM Scheduled Provider: Location:[facility] Appointment Type:FM Medicare Wellness [place] Appointment Date:01/03/2024 08:40:00 AM Scheduled Provider:Ursula Love MD Location:[facility] Appointment Type:FM Open Diagnostic Tests PendingUrine Culture 08/04/23 Future Scheduled TestsCT Abdomen/Pelvis w/o Contrast 08/02/23 [facility] Evaluation + Plan note Future Appointments Appointment Date:08/29/2023 02:20:00 PM Scheduled Provider:Jose Luis THOMAS MD Location:[facility] Appointment Type:[facility] Appointment Date:01/03/2024 08:00:00 AM Scheduled Provider: Location:[facility] Appointment Type:FM Medicare Wellness [place] Appointment Date:01/03/2024 08:40:00 AM Scheduled Provider:Ursula Love MD Location:[facility] Appointment Type: Open [facility] Evaluation + Plan note Future Appointments Appointment Date:08/29/2023 02:20:00 PM Scheduled Provider:Jose Luis THOMAS MD Location:[facility] Appointment Type:[facility] Appointment Date:01/03/2024 08:00:00 AM Scheduled Provider: Location:[facility] Appointment Type:FM Medicare Wellness [facility] Appointment Date:01/03/2024 08:40:00 AM Scheduled Provider:Ursula Love MD Location:[facility] Appointment Type: Open Future Scheduled TestsUS Aorta 08/08/24 [facility] Evaluation + Plan note Future Appointments Appointment Date:01/03/2024 08:00:00 AM Scheduled Provider: Location:[facility] Appointment Type:FM Medicare Wellness [facility] Appointment Date:01/03/2024 08:40:00 AM Scheduled Provider:Ursula Love MD Location:[facility] Appointment Type: Open Future Scheduled TestsUS Aorta 08/08/24 [facility] Evaluation + Plan note Future Appointments Appointment Date:12/17/2024 08:00:00 AM Scheduled Provider: Location:[facility] Appointment Type:FM Medicare Wellness Subsequent Diagnostic Tests PendingHCV Antibody RFX to Quant PCR 12/18/23 Future Scheduled TestsCT Chest, Low Dose Screening 12/18/23US Aorta 08/08/24 [facility] Evaluation + Plan note Future Appointments Appointment Date:03/25/2024 10:45:00 AM Scheduled Provider:Ursula Love MD Location:[facility] Appointment Type: Open Appointment Date:12/17/2024 08:00:00 AM Scheduled Provider: Location:[facility] Appointment Type: Medicare Wellness Subsequent Future Scheduled TestsUS Aorta 08/08/24 [facility] Evaluation + Plan note Future Appointments Appointment Date:01/25/2024 09:00:00 AM Scheduled Provider:Ana Kumar [facility] Type:ONC Office Visit New 45 (FT) Appointment Date:03/25/2024 10:45:00 AM Scheduled Provider:Ursula Love MD Location:[facility] Appointment Type: Open Appointment Date:12/17/2024 08:00:00 AM Scheduled Provider: Location:[facility] Appointment Type: Medicare Wellness Subsequent Diagnostic Tests PendingImmunofixation Serum 01/16/24Free K+L Lt Chains,Qn,S 01/16/24Protein Electrophoresis 01/16/24 Future Scheduled TestsUS Aorta 08/08/24 [facility] Evaluation + Plan note Future Appointments Appointment Date:02/01/2024 02:30:00 PM Scheduled Provider: Location[facility] Appointment Type:ONC Injection (FT) Appointment Date:02/08/2024 02:30:00 PM Scheduled Provider: Location[facility] Appointment Type:ONC Injection (FT) Appointment Date:02/15/2024 02:00:00 PM Scheduled Provider: Location[facility] Appointment Type:ONC Injection (FT) Appointment Date:03/14/2024 10:15:00 AM Scheduled Provider:Ana Kumar Location[facility] Appointment Type:ONC Office Visit 30 (FT) Appointment Date:03/14/2024 10:45:00 AM Scheduled Provider: Location[facility] Appointment Type:ONC Injection (FT) Appointment Date:03/25/2024 10:45:00 AM Scheduled Provider:Ursula Love MD Location:[facility] Appointment Type: Open Appointment Date:12/17/2024 08:00:00 AM Scheduled Provider: Location:[facility] Appointment Type: Medicare Wellness Subsequent Future Scheduled TestsCBC w/ Auto Diff 03/21/24Comprehensive Metabolic Panel 03/21/24Ferritin 03/21/24Iron Level 03/21/24Iron Percent Saturation 03/21/24Transferrin 03/21/24US Aorta 08/08/24 [facility] Evaluation + Plan note Future Appointments Appointment Date:02/08/2024 01:30:00 PM Scheduled Provider: Location[facility] Appointment Type:ONC Injectafer (FT) Appointment Date:02/08/2024 02:30:00 PM Scheduled Provider: Location:.[facility] Appointment Type:ONC Injection (FT) Appointment Date:02/15/2024 01:00:00 PM Scheduled Provider: Location:.[facility] Appointment Type:ONC Injectafer (FT) Appointment Date:02/15/2024 02:00:00 PM Scheduled Provider: Location[facility] Appointment Type:ONC Injection (FT) Appointment Date:03/14/2024 10:15:00 AM Scheduled Provider:Ana Kumar Location[facility] Appointment Type:ONC Office Visit 30 (FT) Appointment Date:03/14/2024 10:45:00 AM Scheduled Provider: Location[facility] Appointment Type:ONC Injection (FT) Appointment Date:03/25/2024 10:45:00 AM Scheduled Provider:[facility] Open Appointment Date:04/11/2024 02:00:00 PM Scheduled Provider: Location[facility] Appointment Type:ONC Injection (FT) Appointment Date:05/09/2024 02:00:00 PM Scheduled Provider: Location[facility] Appointment Type:ONC Injection (FT) Appointment Date:06/06/2024 02:00:00 PM Scheduled Provider: Location[facility] Appointment Type:ONC Injection (FT) Appointment Date:07/04/2024 02:00:00 PM Scheduled Provider: Location[facility] Appointment Type:ONC Injection (FT) Appointment Date:08/01/2024 02:00:00 PM Scheduled Provider: Location[facility] Appointment Type:ONC Injection (FT) Appointment Date:08/29/2024 02:00:00 PM Scheduled Provider: Location[facility] Appointment Type:ONC Injection (FT) Appointment Date:09/26/2024 02:00:00 PM Scheduled Provider: Location[facility] Appointment Type:ONC Injection (FT) Appointment Date:10/24/2024 02:15:00 PM Scheduled Provider: Location[facility] Appointment Type:ONC Injection (FT) Appointment Date:11/21/2024 02:15:00 PM Scheduled Provider: Location[facility] Appointment Type:ONC Injection (FT) Appointment Date:12/17/2024 08:00:00 AM Scheduled Provider: Location:[facility] Appointment Type:FM Medicare Wellness Subsequent Appointment Date:12/19/2024 02:15:00 PM Scheduled Provider: [facility] Type:ONC Injection (FT) Appointment Date:01/16/2025 02:05:00 PM Scheduled Provider: Location[facility] Appointment Type:ONC Injection (FT) Appointment Date:02/13/2025 02:15:00 PM Scheduled Provider: Location[facility] Appointment Type:ONC Injection (FT) Appointment Date:03/13/2025 02:15:00 PM Scheduled Provider: [facility] Type:ONC Injection (FT) Future Scheduled TestsCBC w/ Auto Diff 03/21/24Comprehensive Metabolic Panel 03/21/24Ferritin 03/21/24Iron Level 03/21/24Iron Percent Saturation 03/21/24Transferrin 03/21/24US Aorta 08/08/24 [facility] Evaluation + Plan note Future Appointments Appointment Date:02/15/2024 01:00:00 PM Scheduled Provider: Location[facility] Appointment Type:ONC Injectafer (FT) Appointment Date:02/15/2024 02:00:00 PM Scheduled Provider: Location[facility] Appointment Type:ONC Injection (FT) Appointment Date:03/14/2024 10:15:00 AM Scheduled Provider:Ana Kumar Location[facility] Appointment Type:ONC Office Visit 30 (FT) Appointment Date:03/14/2024 10:45:00 AM Scheduled Provider: Location[facility] Appointment Type:ONC Injection (FT) Appointment Date:03/25/2024 10:45:00 AM Scheduled Provider:Ursula Love MD Location:[facility] Appointment Type:FM Open Appointment Date:04/11/2024 02:00:00 PM Scheduled Provider: Location[facility] Appointment Type:ONC Injection (FT) Appointment Date:05/09/2024 02:00:00 PM Scheduled Provider: Location[facility] Appointment Type:ONC Injection (FT) Appointment Date:06/06/2024 02:00:00 PM Scheduled Provider: Location[facility] Appointment Type:ONC Injection (FT) Appointment Date:07/04/2024 02:00:00 PM Scheduled Provider: Location[facility] Appointment Type:ONC Injection (FT) Appointment Date:08/01/2024 02:00:00 PM Scheduled Provider: Location[facility] Appointment Type:ONC Injection (FT) Appointment Date:08/29/2024 02:00:00 PM Scheduled Provider: Location[facility] Appointment Type:ONC Injection (FT) Appointment Date:09/26/2024 02:00:00 PM Scheduled Provider: Location[facility] Appointment Type:ONC Injection (FT) Appointment Date:10/24/2024 02:15:00 PM Scheduled Provider: Location[facility] Appointment Type:ONC Injection (FT) Appointment Date:11/21/2024 02:15:00 PM Scheduled Provider: Location[facility] Appointment Type:ONC Injection (FT) Appointment Date:12/17/2024 08:00:00 AM Scheduled Provider: Location:[facility] Appointment Type: Medicare Wellness Subsequent Appointment Date:12/19/2024 02:15:00 PM Scheduled Provider: Location[facility] Appointment Type:ONC Injection (FT) Appointment Date:01/16/2025 02:05:00 PM Scheduled Provider: Location[facility] Appointment Type:ONC Injection (FT) Appointment Date:02/13/2025 02:15:00 PM Scheduled Provider: Location[facility] Appointment Type:ONC Injection (FT) Appointment Date:03/13/2025 02:15:00 PM Scheduled Provider: Location[facility] Appointment Type:ONC Injection (FT) Future Scheduled TestsCBC w/ Auto Diff 03/21/24Comprehensive Metabolic Panel 03/21/24Ferritin 03/21/24Iron Level 03/21/24Iron Percent Saturation 03/21/24Transferrin 03/21/24US Aorta 08/08/24 [facility] Evaluation + Plan note Future Appointments Appointment Date:03/14/2024 10:15:00 AM Scheduled Provider:Ana Kumar Location:.[facility] Appointment Type:ONC Office Visit 30 (FT) Appointment Date:03/14/2024 10:45:00 AM Scheduled Provider: Location[facility] Appointment Type:ONC Injection (FT) Appointment Date:03/25/2024 10:45:00 AM Scheduled Provider:Ursula Love MD Location:[facility] Appointment Type: Open Appointment Date:04/11/2024 02:00:00 PM Scheduled Provider: Location:[facility] Appointment Type:ONC Injection (FT) Appointment Date:05/09/2024 02:00:00 PM Scheduled Provider: Location:[facility] Appointment Type:ONC Injection (FT) Appointment Date:06/06/2024 02:00:00 PM Scheduled Provider: Location[facility] Appointment Type:ONC Injection (FT) Appointment Date:07/04/2024 02:00:00 PM Scheduled Provider: Location:[facility] Appointment Type:ONC Injection (FT) Appointment Date:08/01/2024 02:00:00 PM Scheduled Provider: Location[facility] Appointment Type:ONC Injection (FT) Appointment Date:08/29/2024 02:00:00 PM Scheduled Provider: Location:[facility] Appointment Type:ONC Injection (FT) Appointment Date:09/26/2024 02:00:00 PM Scheduled Provider: Location:.[facility] Appointment Type:ONC Injection (FT) Appointment Date:10/24/2024 02:15:00 PM Scheduled Provider: Location[facility] Appointment Type:ONC Injection (FT) Appointment Date:11/21/2024 02:15:00 PM Scheduled Provider: Location[facility] Appointment Type:ONC Injection (FT) Appointment Date:12/17/2024 08:00:00 AM Scheduled Provider: Location:[facility] Appointment Type: Medicare Wellness Subsequent Appointment Date:12/19/2024 02:15:00 PM Scheduled Provider: Location:[facility] Appointment Type:ONC Injection (FT) Appointment Date:01/16/2025 02:05:00 PM Scheduled Provider: Location:[facility] Appointment Type:ONC Injection (FT) Appointment Date:02/13/2025 02:15:00 PM Scheduled Provider: Location[facility] Appointment Type:ONC Injection (FT) Appointment Date:03/13/2025 02:15:00 PM Scheduled Provider: Location[facility] Appointment Type:ONC Injection (FT) Future Scheduled TestsCBC w/ Auto Diff 03/11/24Comprehensive Metabolic Panel 03/11/24Ferritin 03/11/24Iron Level 03/11/24Iron Percent Saturation 03/11/24Transferrin 03/11/24US Aorta 08/08/24 [facility] Evaluation + Plan note Future Appointments Appointment Date:03/14/2024 10:15:00 AM Scheduled Provider:Ana Kumar Location:.[facility] Appointment Type:ONC Office Visit 30 (FT) Appointment Date:03/14/2024 10:45:00 AM Scheduled Provider: Location[facility] Appointment Type:ONC Injection (FT) Appointment Date:03/26/2024 10:45:00 AM Scheduled Provider:U[facility]ula [facility] Open Appointment Date:04/11/2024 02:00:00 PM Scheduled Provider: Location[facility] Appointment Type:ONC Injection (FT) Appointment Date:05/09/2024 02:00:00 PM Scheduled Provider: Location:.[facility] Appointment Type:ONC Injection (FT) Appointment Date:06/06/2024 02:00:00 PM Scheduled Provider: Location[facility] Appointment Type:ONC Injection (FT) Appointment Date:07/04/2024 02:00:00 PM Scheduled Provider: Location[facility] Appointment Type:ONC Injection (FT) Appointment Date:08/01/2024 02:00:00 PM Scheduled Provider: Location[facility] Appointment Type:ONC Injection (FT) Appointment Date:08/29/2024 02:00:00 PM Scheduled Provider: Location[facility] Appointment Type:ONC Injection (FT) Appointment Date:09/26/2024 02:00:00 PM Scheduled Provider: Location[facility] Appointment Type:ONC Injection (FT) Appointment Date:10/24/2024 02:15:00 PM Scheduled Provider: Location[facility] Appointment Type:ONC Injection (FT) Appointment Date:11/21/2024 02:15:00 PM Scheduled Provider: Location:[facility] Appointment Type:ONC Injection (FT) Appointment Date:12/17/2024 08:00:00 AM Scheduled Provider: Location:[facility] Appointment Type: Medicare Wellness Subsequent Appointment Date:12/19/2024 02:15:00 PM Scheduled Provider: Location:[facility] Appointment Type:ONC Injection (FT) Appointment Date:01/16/2025 02:05:00 PM Scheduled Provider: Location:[facility] Appointment Type:ONC Injection (FT) Appointment Date:02/13/2025 02:15:00 PM Scheduled Provider: Location:[facility] Appointment Type:ONC Injection (FT) Appointment Date:03/13/2025 02:15:00 PM Scheduled Provider: Location:[facility] Appointment Type:ONC Injection (FT) [facility] Evaluation + Plan note Future Appointments Appointment Date:03/26/2024 10:45:00 AM Scheduled Provider:Ursula Love MD Location:[facility] Appointment Type: Open Appointment Date:04/11/2024 02:00:00 PM Scheduled Provider: Location[facility] Appointment Type:ONC Injection (FT) Appointment Date:05/09/2024 02:00:00 PM Scheduled Provider: Location:[facility] Appointment Type:ONC Injection (FT) Appointment Date:06/06/2024 02:00:00 PM Scheduled Provider: Location:[facility] Appointment Type:ONC Injection (FT) Appointment Date:07/04/2024 02:00:00 PM Scheduled Provider: Location:[facility] Appointment Type:ONC Injection (FT) Appointment Date:08/01/2024 02:00:00 PM Scheduled Provider: Location:[facility] Appointment Type:ONC Injection (FT) Appointment Date:08/29/2024 02:00:00 PM Scheduled Provider: Location:[facility] Appointment Type:ONC Injection (FT) Appointment Date:09/26/2024 02:00:00 PM Scheduled Provider: Location:[facility] Appointment Type:ONC Injection (FT) Appointment Date:10/24/2024 02:15:00 PM Scheduled Provider: Location:[facility] Appointment Type:ONC Injection (FT) Appointment Date:11/21/2024 02:15:00 PM Scheduled Provider: Location:.[facility] Appointment Type:ONC Injection (FT) Appointment Date:12/17/2024 08:00:00 AM Scheduled Provider: Location:[facility] Appointment Type: Medicare Wellness Subsequent Appointment Date:12/19/2024 02:15:00 PM Scheduled Provider: Location:.[facility] Appointment Type:ONC Injection (FT) Appointment Date:01/16/2025 02:05:00 PM Scheduled Provider: Location:.[facility] Appointment Type:ONC Injection (FT) Appointment Date:02/13/2025 02:15:00 PM Scheduled Provider: Location:.[facility] Appointment Type:ONC Injection (FT) Appointment Date:03/13/2025 02:15:00 PM Scheduled Provider: Location:.[facility] Appointment Type:ONC Injection (FT) Future Scheduled TestsCBC w/ Auto Diff 06/07/24CBC w/ Auto Diff 09/07/24Comprehensive Metabolic Panel 06/07/24Comprehensive Metabolic Panel 09/07/24Ferritin 06/07/24Ferritin 09/07/24Iron Level 06/07/24Iron Level 09/07/24Iron Percent Saturation 06/07/24Iron Percent Saturation 09/07/24Transferrin 06/07/24Transferrin 09/07/24US Aorta 08/08/24 [facility] Evaluation note Diagnosis Persistent atrial fibrillation (HCC)- Primary Atrial fibrillation documented in this encounter [facility] Discharge instructions No data available for this section [facility] Progress note No data available for this section [facility] Reason for referral (narrative)* Outpatient Procedure (Routine) - Authorized Specialty Diagnoses / Procedures Referred By Contac t [facility] Diagnoses Persistent atrial fibrillation (HCC) Procedures ECG COMPLETE ECG ROUTINE ECG W/LEAST 12 LDS W/I&R Jannet Gonzalez MD [address] [place] [address] [facility] [place] [address] [place] [address] [place] [address] Referral ID Status Reason Start Date Expiration Date Visits Requested Visits Authorized [id number] Authorized Auto-Generat ed Referral 02/03/2022 02/03/2023 1 1 [facility] Summary Purpose Family History No Family History Records FoundNo Family History Records FoundNo Family History Records Found No data available for this section No data available for this section No data available for this section No data available for this section No data available for this section No data available for this section No Family History Records Found No data available for this section No data available for this section No data available for this section No data available for this section No data available for this section No Family History Records Found No data available for this section No Family History Records FoundNo Family History Records FoundNo Family History Records FoundNo Family History Records FoundNo Family History Records FoundNo Family History Records Found No data available for this section No Family History Records Found Advance Directives No Advanced Directives Records FoundDocuments on File Type Date Recorded Patient On Line Csr Expl anation Advance Directive(s) 07/10/2017 5:38 AM Advance Directive(s) 05/01/2017 3:44 PM Additional Source Comments (unrecognized sect ion and content) No Status Records FoundNo Status Records FoundNo Status Records FoundNo Status Records FoundNo Status Records FoundNo Status Records FoundNo Status Records FoundNo Status Records FoundNo Status Records FoundNo Status Records FoundNo Status Records FoundNo Status Records Found INFORMATION SOURCE (unrecogn ized section and content) DATE CREATED AUTHOR 10/08/2020 [facility] DATE CREATED AUTHOR AUTHOR'S ORGANIZ ATION 02/05/2022 [facility] DATE CREATED AUTHOR AUTHOR'S ORGANIZ ATION 01/17/[address] [facility] DATE CREATED AUTHOR AUTHOR'S ORGANIZ ATION 01/12/2024 [facility] DATE CREATED AUTHOR AUTHOR'S ORGANIZ ATION 03/12/2024 [facility] DATE CREATED AUTHOR AUTHOR'S ORGANIZ ATION 03/13/2024 [facility] DATE CREATED AUTHOR AUTHOR'S ORGANIZ ATION 03/27/2024 [facility] Source Comments (unrecognize d section and content) In the event this informatio n is protected by the Federal Confidentiality of Alcohol and Drug Abuse Patient Records regulations: The Federal rules restrict any use of the information to criminally investigate or prosecute any alcohol or drug abuse patient.[facility] Care Teams (unrecognized sec tion and content) Pharmacology Teacher Relationship Specialty Start Date End Date Mark Browning PCP - General Family Practice 08/11/14 Jannet Gonzalez MD [address] [place] [address] Primary Staff Physician Cardiology 02/03/22 FOR RECORDS PERTAINING TO PATIENTS WHO ARE OR HAVE BEEN ENROLLED IN A CHEMICAL DEPENDENCY/SUBSTANCEABUSE PROGRAM, SOME INFORMATION MAY BE OMITTED. This clinical summary was aggregated from multiple sources. Caution should be exercised in using it in the provision of clinical care. This summary normalizes information from multiple sources, and as a consequence, information in this document may materially change the coding, format and clinical context of patient data. In addition, data may be omitted in some cases. CLINICAL DECISIONS SHOULD BE BASED ON THE PRIMARY CLINICAL RECORDS. [employer] provides no warranty or guarantee of the accuracy or completeness of information in this document.
== END 2024-04-08 12:29 | disposition home or self-care (01) ==
LOC: EC 12:29
PROVIDERS: PCP Family Medicine; Visit Provider Student in an Organized Health Care Education/Training Program
DX: M25.551 Pain in right hip (principal); M25.552 Pain in left hip
CPT/HCPCS: 73523

== ENCOUNTER 2024-04-16 07:39 | Day surgery (SDC) | payer MEDICARE, SELFPAY ==
--- OUTSIDE RECORDS SUMMARY | 2024-04-16 07:44 | XMS_ITS | CCD ---
Author Organization [facility] Care Team Providers Care Engraver Letter Name Role Phone Mark Browning Primary Care Provider [phone] Jannet Gonzalez MD Ursula Love Primary Care Physician URSULA LOVE Admitting Unavailable URSULA LOVE Attending Unavailable URSULA LOVE Primary Care Unavailable URSULA LOVE Consulting Unavailable BAO, DR MOSCOSO Admitting Unavailable BAO, DR MOSCOSO Attending Unavailable URSULA LOVE Primary Care Unavailable HATFIELD, DR JANNET Parry Consulting Unavailable BAO, DR MOSCOSO Consulting Unavailable URSULA LOVE Consulting Unavailable Ursula Love Primary Care Physician [phone] PARISA HERRON Attending Unavailable BLANKA GORE Attending Unavailable Ana Spencer Attending Unavailable Ana Spencer Admitting Unavailable Ana Spencer Attending Unavailable MD Ursula Love Attending Unavailable Jose Luis THOMAS Attending Unavailable Jose Luis THOMAS Attending Unavailable Ursula Love Attending Unavailable Ana Spencer Attending Unavailable Ana Spencer Attending Unavailable Ursula Love Attending Unavailable Ursula Love Admitting Unavailable Ursula Love Referring Unavailable Ursula Love Admitting Unavailable Ursula Love Referring Unavailable Ursula Love Attending Unavailable Ana Spencer Attending Unavailable Ana Spencer Admitting Unavailable Karen Romano Attending Unavailable Ursula Love Attending Unavailable Ursula Love Referring Unavailable Shelley Bruce Attending Unavailable Bharath Metlon Attending Unavailable Bharath Melton Admitting Unavailable Ursula Love Attending Unavailable Ursula Love Admitting Unavailable Ursula Love Attending Unavailable Ursula Love Admitting Unavailable Ursula Love Attending Unavailable Ursula Love Attending Unavailable Ursula Love Attending Unavailable Ursula Love Attending Unavailable Ursula Love Attending Unavailable Karen Romano Attending Unavailable Ursula Love Attending Unavailable Ursula Love Admitting Unavailable Juan AntonioKaren figueroa Attending Unavailable Karen Romano Admitting Unavailable Ana Spencer Attending Unavailable Ursula Love Referring Unavailable Ana Spencer Attending Unavailable Ana Spencer Attending Unavailable Ursula Love Admitting Unavailable Ursula Love Referring Unavailable Jose Luis THOMAS Attending Unavailable Allergies Allergy Classification Reported Allergen(s) Allergy Type Date of Onset Reaction(s) Facility Penicillins (antibiotic) (1 source) Penicillins; 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: [penicillins] Drug Allergy [facility] Repository (20 sources) Penicillins; 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: [penicillins] Propensity to adverse reactions to drug 4 Hives, Wejhonatan (disorder) [facility] (1 source) Penicillins Drug allergy (disorder) 4 [facility] Repository (2 sources) No Known Medication Allergies; 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: [No Known Medication Allergies] Propensity to adverse reactions (disorder) [facility] Repository Medications Current Medications Medication Drug Class(es) Dates Sig (Normalized) Sig (Original) amLODIPine 5 mg oral tablet (18 sources) Dihydropyridine Calcium Channel Josh Start: 04-01-2022 [...] MOUTH DAILY apixaban 5 mg oral tablet (10 sources) Factor Xa Inhibitor Start: 12-18-2023 take 5 mg by mouth twice daily Eliquis 5 mg, Oral, BID, Refills(s) 0 Start Date: 12/18/23 Status: Ordered aspirin 81 mg oral tablet (18 sources) Platelet Aggregation Inhibitor, Nonsteroidal Anti-inflammatory Drug Start: 08-29-2014 take 81 mg by mouth once daily aspirin 81 mg, Oral, Daily, Refills(s) 0 Start Date: 08/29/14 Status: Ordered Start: 08-29-2014 take 325 mg by mouth once sonya y aspirin 325 mg, Oral, Daily, Refills(s) 0 Start Date: 08/29/14 Status: Ordered atorvastatin 80 mg oral tablet (17 sources) HMG-CoA Reductase Inhibitor Start: 12-19-2022 take [...] day(s), # 90 tab(s), Refills(s) 0, Pharmacy: [facility]/pharmacy #[id number] Start Date: 04/01/22 Stop Date: 05/01/22 Status: Ordered Centrum Minis Men 50+ oral tablet (8 sources) Start: 4 take 1 tablet by mouth once daily Centrum Minis Men 50+ oral tablet 1 tab(s), Oral, Daily, Refill(s) 0 Start Date: 12/28/23 Status: Ordered cloNIDine hydrochloride 0.1 mg oral tablet (18 sources) Central alpha-2 Adrenergic Agonist Start: 2 [...] DAY dilTIAZem hydrochloride 30 mg oral tablet (20 sources) Calcium Channel Josh Start: 04-01-2022 diltiazem [...] as needed for rapid heart beat (AFIB)). ezetimibe 10 mg oral tablet (1 source) Dietary Cholesterol Absorption Inhibitor Start: 4 take 10 mg by mouth once daily Zetia 10 mg, Oral, Daily, Refills(s) 0 Start Date: 03/22/24 Status: Ordered 24 hr isosorbide mononitrate 120 mg extended release oral tablet (19 sources) Nitrate Vasodilator Start: 3 take 1 tablet by mouth once daily [...] Status: Ordered lisinopril 20 mg oral tablet (19 sources) Angiotensin Converting Enzyme Inhibitor Start: 03-26-2024 lisinopril 20 mg Tab See Instructions, TAKE 1 TABLET DAILY, # 90 tab(s), Refills(s) 1, Pharmacy: [facility]/pharmacy #[id number], 179, cm, 03/26/24 10:53:00 EDT, Height/Length Dosing, 86, kg, 03/26/24 10:53:00 EDT, Weight Dosing Start Date: 03/26/24 Status: Ordered Start: 07-06-2023 lisinopril 20 mg Tab See Instructions, TAKE 1 TABLET DAILY, # 90 tab(s), Refills(s) 1, Pharmacy: [facility] [place], 178, cm, 12/18/23 13:19:00 EST, Height/Length Dosing, 89.1, kg, 12/18/23 13:19:00 EST, Weight Dosing Start Date: 12/19/23 Status: Ordered Start: 04-25-2023 take 1 tablet by sendy th once daily lisinopril 20 mg Tab 20 mg = 1 tab(s), Oral, Daily, # 90 tab(s), Refills(s) 1, Pharmacy: [facility], 178, cm, 12/19/22 9:57:00 EST, Height/Length Dosing, [...] 04/01/22 Status: Ordered take 1 tablet by sendy th once daily lisinopril (ZESTRIL, PRINIVIL) 20 mg [...] Daily, # 30 tab(s), Refills(s) 0, Pharmacy: [facility]/pharmacy #[id number] Start Date: 04/01/22 Status: Ordered metFORMIN hydrochloride 500 mg oral tablet (18 sources) Biguanide Start: 07-06-20 metformin 500 mg Tab See Instructions, TAKE 2 TABLETS TWICE A DAY, # 360 tab(s), Refills(s) 1, Pharmacy: [facility], 178, cm, 12/18/23 13:19:00 EST, Height/Length Dosing, 89.1, kg, 12/18/23 13:19:00 EST, Weight Dosing Start Date: 12/19/23 Status: Ordered Start: 04-25-2023 take 2 tablets by mo ut twice daily metformin 500 mg Tab 1,000 mg = 2 tab(s), Oral, BID, TAKE TWO TABLETS BY MOUTH TWICE A DAY, # 360 tab(s), Refills(s) 1, Pharmacy: [facility], 178, cm, 12/19/22 9:57:00 EST, Height/Length Dosing, 90.4, kg, 12/19/22 9:57:00 EST, Weight Dosing Start Date: 04/25/23 Status: Ordered Start: 04-01-2022 End: 09-28-2022 take 2 tablets by mouth twice daily metformin 500 mg ER Tab 1,000 mg = 2 tab(s), Oral, BID, X 90 day(s), # 360 tab(s), Refills(s) 1, Pharmacy: [facility] Start Date: 04/01/22 Stop Date: 09/28/22 Status: Ordered take 2 tablets by [facility] twice daily metFORMIN (GLUCOPHAGE) 500 mg tablet metformin 500 mg tablet TAKE TWO TABLETS BY MOUTH TWICE A DAY 0 Active Comment on above: metformin 500 mg tab let TAKE TWO TABLETS BY MOUTH TWICE A DAY 24 hr metoprolol succinate 100 mg extended release oral tablet (19 sources) beta-Adrenergic Josh Start: 08-29-2014 take 2 tablets by mouth once daily Toprol XL 100 mg Tab-ER 200 mg = 2 tab(s), Oral, Daily, Refills(s) 0 Start Date: 08/29/14 Status: Ordered Start: 08-29-2014 take 1 tablet by sendy th once daily Toprol XL 100 mg Tab-ER 100 mg = 1 tab(s), Oral, Daily, Refills(s) 0 Start Date: 08/29/14 Status: Ordered take 1 tablet by sendy th once daily metoprolol succinate ER (TOPROL XL) 200 mg 24 hr tablet Take 200 mg by mouth once daily. 0 Active Comment on above: Take 200 mg by mouth once daily. omeprazole 20 mg delayed release oral capsule (19 sources) Proton Pump Inhibitor Start: 11-20-2023 take 1 capsule by mouth once daily omeprazole 20 mg Cap-DR 20 mg = 1 cap(s), Oral, Daily, # 90 cap(s), Refills(s) 1, Pharmacy: [facility], 178, cm, 08/29/23 14:28:00 EST, Height/Length Dosing, 90.8, kg, 08/29/23 14:28:00 EST, Weight Dosing Start Date: 11/20/23 Status: Ordered Start: 07-03-2023 take 1 capsule by mo [facility] once daily omeprazole 20 mg Cap-DR 20 mg = 1 cap(s), Oral, Daily, # 90 cap(s), Refills(s) 1, Pharmacy: [facility], 178, cm, 07/03/23 7:24:00 EDT, Height/Length Dosing, 90, kg, 07/03/23 7:24:00 EDT, Weight Dosing Start Date: 07/03/23 Status: Ordered Start: 04-01-2022 End: 09-28-2022 take 1 capsule by mouth once daily omeprazole 20 mg Cap-DR 20 mg = 1 cap(s), Oral, Daily, X 90 day(s), # 90 cap(s), Refills(s) 1, Pharmacy: [facility] Start Date: 04/01/22 Stop Date: 09/28/22 Status: Ordered Start: 08-29-2014 take 1 capsule by mo [facility] once daily omeprazole (PRILOSEC) 20 mg capsule Take 1 capsule by mouth once daily. 90 capsule 3 12/19/2018 Active Comment on above: Take 1 capsule by [facility] once daily. ProFe 180 mg oral capsule (8 sources) Start: 12-25-2023 take 1 capsule by mouth once daily ProFe 180 mg oral capsule 180 mg = 1 cap(s), Oral, Daily, # 100 cap(s), Refills(s) 0, Pharmacy: [facility]/pharmacy #[id number], 178, cm, 12/18/23 13:19:00 EST, Height/Length Dosing, 89.1, kg, 12/18/23 13:19:00 EST, Weight Dosing Start Date: 12/25/23 Status: Ordered 12 hr ranolazine 500 mg extended release oral tablet (16 sources) Anti-anginal Start: 12-19-2022 take 2 tablets [...] Ordered Start: 01-21-2019 take 1 tablet by sendy th once daily rivaroxaban (XARELTO) 20 mg tablet Take 1 tablet by mouth once daily. 90 tablet 3 01/21/2019 Active Comment on above: Take 1 tablet by sendy th once daily. simvastatin 40 mg oral tablet [...] Daily, # 10 cap(s), Refills(s) 0, Pharmacy: [facility]/pharmacy #[id number], 178, cm, 07/19/23 11:20:00 EDT, Height/Length Dosing, 89.2, kg, 07/19/23 11:20:00 EDT, Weight Dosing Start Date: 07/19/23 Status: Ordered Problems Active Problems Problem Classification Problem Date Documented Da te Episodic/Chronic Abdominal pain (4 sources) Left flank pain 07-19-2023 Episodic Aortic; peripheral; and visceral artery aneurysms (20 sources) Aortic aneurysm; 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: [Abdominal aortic aneurysm] 08-08-2023 Chronic Calculus of urinary tract (18 sources) Kidney stone; 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: [History of calculus of kidney] Onset: 3 07-19-2023 Episodic Cardiac dysrhythmias (20 sources) Persistent atrial fibrillation; 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: [Other persistent atrial fibrillation] Onset: 2 Chronic Coronary atherosclerosis and other heart disease (20 sources) Coronary arteriosclerosis; 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: [Atherosclerotic heart disease of [place] coronary artery without angina pectoris] Onset: 4 10-02-2014 Chronic Deficiency and other anemia (8 sources) Microcytic anemia 12-28-2023 Episodic Deficiency and other anemia (2 sources) Iron deficiency anemia; 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: [Iron deficiency anemia, unspecified] Onset: 4 Episodic Diabetes mellitus without complication (20 sources) Type 2 diabetes mellitus without complications; 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: [Type 2 diabetes mellitus without complication] Onset: 3 Chronic Disorders of lipid metabolism (20 sources) Dyslipidemia; 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: [Hyperlipidemia, unspecified] Onset: 3 08-22-2014 Chronic Esophageal disorders (16 sources) Gastroesophageal reflux disease without esophagitis 07-03-2023 Chronic Essential hypertension (20 sources) Hypertensive disorder; 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: [Essential (primary) hypertension] Onset: 2 08-22-2014 Chronic Genitourinary symptoms and ill-defined conditions (15 sources) Blood in urine; 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: [Dysuria] Onset: 3 07-19-2023 Episodic Hemorrhoids (14 sources) Bleeding external hemorrhoids 08-02-2023 Episodic Hyperplasia of prostate (13 sources) Benign prostatic hypertrophy without outflow obstruction; 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: [Benign prostatic hyperplasia without lower urinary tract symptoms] Onset: 3 Chronic Nutritional deficiencies (1 source) Vitamin B deficiency; 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: [Deficiency of other specified B group vitamins] Onset: 4 Episodic Other and unspecified benign neoplasm (1 source) Benign neoplasm of rectum; 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: [Benign neoplasm of rectum] Onset: 3 Episodic Other and unspecified benign neoplasm (11 sources) Adenomatous polyp of rectum 10-04-2023 Episodic [...] unspecified] Onset: 4 Chronic Other gastrointestinal disorders (8 sources) Splenomegaly 12-28-2023 Episodic Other non-traumatic joint disorders (1 source) Hip pain 03-26-2024 Episodic Other nutritional; endocrine; and metabolic disorders (19 sources) Metabolic syndrome X; 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: [Metabolic syndrome] 10-11-2021 Chronic Other nutritional; endocrine; and metabolic disorders (2 sources) Obesity 09-01-2014 Chronic Other nutritional; endocrine; and metabolic disorders (16 sources) Overweight in adulthood with body mass index of 25 or more but less than 30 12-19-2022 Episodic Other nutritional; endocrine; and metabolic disorders (11 sources) Overweight 08-29-2023 Episodic Other screening for suspected conditions (not mental disorders or infectious disease) (2 sources) Cardiovascular stress test abnormal; 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: [Abnormal result of other cardiovascular function study] Onset: 4 08-25-2014 Episodic Residual codes; unclassified (13 sources) Family history of malignant neoplasm of kidney; 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: [Family history of malignant neoplasm of kidney] Onset: 3 Episodic Screening and history of mental health and substance abuse codes (13 sources) H/O: Disorder; 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: [Personal history of nicotine dependence] Onset: 3 Episodic Unclassified (16 sources) Non-smoker 12-19-2022 Unclassified (20 sources) Patient [...] source) Long-term current use of anticoagulant; 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: [shelter (current) use of 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] Onset: 11-28-2017 11-28-2017 Episodic Unclassified (1 source) Infrarenal abdominal aortic aneurysm, without rupture; 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: [Infrarenal abdominal aortic aneurysm, without rupture] Onset: 12-29-2023 Unclassified (1 source) Aneurysm of the ascending aorta, without rupture; 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: [Aneurysm of the ascending aorta, without rupture] Onset: 12-29-2023 Results Test Name Value Interpretation Reference Range [...] Appointments 2023 2:00 PM EDT With: Where: Oncology 2023 2:00 PM EDT With: Where: Oncology 2023 2:00 PM EDT With: Where: [facility] 2023 2:00 PM EDT With: Where: [facility] 2023 2:00 PM EDT With: Where: Oncology 2023 2:00 PM EST With: Where: [facility] Monday 11:00 AM EST With: Tj BURTON, Ana Rivas Where: Oncology 2023 2:00 PM EST With: Where: [facility] 2024 2:15 PM EST With: Where: [facility] 2024 2:15 PM EST With: Where: [facility] Monday 8:00 AM EST With: Where: [facility] Family Medicine Kofi Normal [facility] Family Medicine Office/Clini c [facility] 03-26-2024 Family Medicine Office/Clinic Note HPI Staff [...] Daily, # 100 cap(s), Refills(s) 0, [id number] 178, cm, 12/18/23 13:19:00 EST, Height/Length Dosing, 89.1, kg, 12/18/23 13:19:00 EST, Weight Dosing lisinopril, See Instructions, TAKE 1 TABLET DAILY, # 90 tab(s), Refills(s) 1, Pharmacy: [facility]/pharmacy #[id number], 179, cm, 03/26/24 10:53:00 EDT, Height/Length Dosing, 86, kg, 03/26/24 10:53:00 EDT, Weight Dosing Follow-up No qualifying data available Problem List/Past Medical History Ongoing AAA (abdominal aortic aneurysm) Aortic aneurysm BMI 28.0-28.9,adult BPH (benign prostatic hyperplasia) CAD in [place] artery Controlled type 2 diabetes mellitus without [...] Others hurt by (more content not included)... [facility] Comment on above: Result Comment: Elec tronically Signed By: Ursula Love MD\.br\Date and Time Signed: 03/26/24 16:51 EDT Physician Referralon 024 Physician Referral [id number] #[id number] [facility] Population Healthon 03-22-20 24 Population Health Case Information Case Priority: None Programs: -- Referral Source: [employer] Referral Reason: Disease management Case Type: Chronic Care Management Risk Score: -- Case Status: Active (December 28, 2023) Date Assigned: December 19, 2023 Assigned By: Christian Hernandez Date Enrolled: December 28, 2023 Assigned Primary Personnel: Christian Hernandez Assigned Secondary Personnel: -- Case Physician: Ursula Love MD Problems Ongoing AAA (abdominal aortic aneurysm) Aortic aneurysm BMI 28.0-28.9,adult BPH (benign prostatic hyperplasia) CAD in [place] artery Controlled type 2 diabetes mellitus without [...] CCM Program Enrollment Verbally agreed to receive [facility] services CCM Written Consent Written consent in progress CCM Verbal Consent By Self 12/28/23 07:00:00 Result Name Value Comment HIPPA Verified Type of Contact In person at home CM Preferred Spoken Language Bulgarian CM Preferred Written Language Bulgarian Preferred Communication Mode Verbal Ability to Read/Write Able to read, Able to write Preferred Salutation Preferred Method of Contact Cell Cell Phone [phone] Best Time to Visit or Contact 7-10 am Best Day to Visit or Contact No preference Appointment Reminders Patient portal, Other secured messaging Preferred Way to Send PHI Patient portal Preferred Mailing Address [address] [place] [address], [id number] Learning Style Pref Patient Verbal explanation Learning [...] Shares bed Support System Spouse/Significant other Primary Care Transition Manager of Home Medication Self Current DME at Home No Currently Receiving Skilled Services No Skilled Service Needs Anticipated No Barriers to Care None Home Barriers None Employment Status Retired Financial Issues None Sources of Income Social Security Pat (more content not included)... Normal [facility] Consent for Treatmenton 02-15 Consent for Treatment [id number] #[id number] Normal [facility] Oncology Progress Noteon Oncology Progress Note Chief Complaint b12 Deficiency; no concerns blood pressure at home 111/62 Diagnoses 1. Iron deficiency anemia (D50.9: Iron deficiency anemia, unspecified) 2. Intestinal malabsorption (K90.9: Intestinal malabsorption, unspecified) 3. B12 deficiency (E53.8: Deficiency of other specified B group vitamins) Oncological History/ROS/PE/Asses sment and Plan Mr. Deutsch [...] his father with squamous cell behind his nasal passage, and maternal grandmother with bone cancer. He is referred by Dr. Love for anemia. Recent labs note hemoglobin at 10.9 with low MCV and MCH. His wbc count is WNL. Platelets mildly low at 137,000. Iron saturation 8%, ferritin 8, B12 213, folate ok. No m-spike, K/L ratio WNL, negative LAURA. Initial exam 01/25/24 energy is ok, has to fight thru fatigue late morning. Thinks it's from his morning medications. He does note some improvement in energy since starting the oral iron no shortness of breath. If he goes into A fib, he can get bad angina on the right side of chest denies n/v. Goes back and forth with d/c since starting iron stool is not tarry, is darker from the iron. Before starting the iron it was not dark or black no fevers, chills, sweats, or unintentional weight loss denies muscle cramps or restless legs. has arthritis in his right hip that is bothersome mainly at night. Pain can travel thru his groin down into his knee sometimes will get lightheaded in the mornings bending over feels cold a lot. No hair thinning or ice cravings has a bad left shoulder. no concerning pains other than normal aches and pains with age no headaches. Sometimes the bottoms of his feet will burn has been on the oral iron for a month along with a multivitamin He had a colonoscopy done in Sep 2023 at [facility] after positive Cologuard test. This showed a 1cm tubular adenoma. He notes in his 20s he had some testing done and was diagnosed with a hiatal hernia. No recent EGD from records. 03/14/24 he is doing better now, has more energy since getting the iron not having the lightheadedness in the mornings denies black, tarry stool or s/s of bleeding no other changes in symptoms. Is getting ready to put in a pool and deck at his home for the summer labs improved Physical Exam General: Alert and oriented, No acute distress. Respiratory: Lungs are CTA, Respirations are non-labored, Symmetrical chest wall expansion Cardiovascular: Normal rate and rhythm. No edema Neurologic: Alert, Oriented, Cranial Nerves II-XII are grossly intact. Psychiatric: Cooperative, Appropriate mood & affect. Integumentary: Warm, Dry, No rash. Impression and Plan Iron deficiency anemia He has been on oral iron supplementation for 1 month, iron studies remain very low positive Cologuard testing Aug 2023 Unclear source of bleeding. He does have known history of bleeding hemorrhoids, but no s/s that this is active Colonoscopy Sep 2023 with 1 polyp, no active bleeding No EGD. He does have a known hiatal hernia diagnosed many years ago Given his malabsorption, he received IV iron infusions January iron studies normalized. Hemoglobin improved to near normal and symptoms are improved B12 deficiency January 2024 labs with B12 at 213. Initiated weekly injections x4, switched to monthly as of February 2024 Paraproteins ok previously Platelets and LFTs remain stable Follow-up With When Contact Information Tj NATHAN-PEMA, Ana Rivas, [facility] [address] [place] [address] [place] [address]- [phone] Additional Instructions: cbc, cmp, iron studies in 3mo and 6mo follow-up in 6mo with FLANGING MACHINE OPERATOR Medications amLODIPine 5 mg Tab, Oral, Daily aspirin, 81 mg, Oral, Daily atorvastatin 80 mg Tab, 80 mg= 1 tab(s), Oral, Daily Centrum Minis Men 50+ oral tablet, 1 tab(s), Oral, Daily cloNIDine 0.1 mg tab, Oral, BID cyanocobalamin (DoT), 1000 mcg= 1 mL, IntraMuscular, Day of Tx cyanocobalamin (DoT), 1000 mcg= 1 mL, IntraMuscular, Day of Tx cyanocobalamin (DoT), 1000 mcg= 1 mL, IntraMuscular, Day of Tx cyanocobalamin (DoT), 1000 mcg= 1 mL, IntraMuscular, Day of Tx cyanocobalamin (DoT), 1000 mcg= 1 mL, IntraMuscular, Day of Tx cyanocobalamin (DoT), 1000 mcg= 1 mL, IntraMuscular, Day of Tx cyanocobalamin (DoT), 1000 mcg= 1 mL, IntraMuscular, Day of Tx cyanocobalamin (DoT), 1000 mcg= 1 mL, IntraMuscular, Day of Tx cyanocobalamin (DoT), 100 (more content not included)... Normal [facility] CBC w/ Auto Diffon 4 Acanthocytes LM Ql (Bld) PRESENT Invalid Interpretation Code [facility] Comment on above: Performed By: #### [id number] #### [facility] [address] [place] [address] Anisocytosis Ql (Bld) PRESENT Invalid Interpretation Code [facility] Comment on above: Performed By: #### [id number] #### [facility] [address] [place] [address] Basophils/100 WBC (Bld) 0.8 % Normal 0.0-2.0 [facility] Comment on above: Performed By: #### [id number] #### [facility] [address] [place] [address] Basophils/Leukocytes Auto (Bld) [Pure # fraction] 0.0 E9/L Normal 0.0-0.2 [facility] Comment on above: Performed By: #### 2 [id number] #### [facility] [address] [place] [id number] Eosinophils (Bld) [#/Vol] 0.2 E9/L Normal 0.0-0.5 [facility] Comment on above: Performed By: #### 2 [id number] #### [facility] [address] [place] [address] Eosinophils/100 WBC (Bld) 3.7 % Normal 0.0-8.0 [facility] Comment on above: Performed By: #### 2 [id number] #### [facility] [address] [place] [address] Erythrocyte distribution width (RBC) [Ratio] 27.1 % High 10.9-14.2 [facility] Comment on above: Performed By: #### 2 [id number] #### [facility] [address] [place] [address] Hematocrit (Bld) [Volume fraction] 40.0 % Normal 37.7-49.0 [facility] [facility] Comment on above: Performed By: #### 2 [id number] #### [facility] [address] [place] [address] Hemoglobin (Bld) [Mass/Vol] 13.4 g/dL Low 13.5-17.5 [facility] Comment on above: Performed By: #### 2 636176 #### [facility] [address] [place] [address] Hypochromia Auto Ql (Bld) PRESENT Invalid Interpretation Code [facility] Comment on above: Performed By: #### 2 731281 #### [facility] [address] [place] [address] Lymphocytes (Bld) [#/Vol] 1.6 E9/L Normal 1.0-4.0 [facility] Comment on above: Performed By: #### 2 953984 #### [facility] [address] [place] [address] Lymphocytes/100 WBC (Bld) 32.5 % Normal 14.0-50.0 [facility] Comment on above: Performed By: #### 2 395376 #### [facility] [address] [place] [address] MCH (RBC) [Entitic mass] 27.3 pg Normal 27.0-34.0 [facility] Comment on above: Performed By: #### 2 756317 #### [facility] [address] [place] [address] MCHC (RBC) [Mass/Vol] 33.6 g/dL Normal 31.4-36.0 [facility] Comment on above: Performed By: #### 2 041276 #### [facility] [address] [place] [address] MCV (RBC) [Entitic vol] 81.4 fL Normal 80.0-100.0 [facility] Comment on above: Performed By: #### 2 950964 #### [facility] [address] [place] [address] Monocytes (Bld) [#/Vol] 0.4 E9/L Normal 0.2-1.0 [facility] Comment on above: Performed By: #### 2 103760 #### [facility] [address] [place] [address] Neutrophils (Bld) [#/Vol] 2.7 E9/L Normal 2.0-7.5 [facility] Comment on above: Performed By: #### 2 148679 #### [facility] [address] [place] [address] Neutrophils/100 WBC (Bld) 55.1 % Normal 36.0-75.0 [facility] Comment on above: Performed By: #### 2 643265 #### [facility] [address] [place] [address] Ovalocytes LM Ql (Bld) PRESENT Invalid Interpretation Code [facility] Comment on above: Performed By: #### 2 773747 #### [facility] [address] [place] [address] Platelet mean volume (Bld) [Entitic vol] 9.9 fL Normal 6.4-10.8 [facility] Comment on above: Performed By: #### 2 477718 #### [facility] [address] [place] [address] Platelets (Bld) [#/Vol] 116.0 E9/L Low 150.0-500.0 [facility] Comment on above: Performed By: #### 2 320448 #### [facility] [address] [place] [address] RBC (Bld) [#/Vol] 4.9 E12/L Normal 4.3-5.9 [facility] Comment on above: Performed By: #### 2 073273 #### [facility] [address] [place] [address] RBC size Nom (Bld) SEE MORPHOLOGY Invalid Interpretation Code [facility] Comment on above: Performed By: #### 2 111532 #### [facility] [address] [place] [address] WBC corrected for nucl RBC Auto (Bld) [#/Vol] 5.0 E9/L Normal 4.0-11.0 [facility] Comment on above: Performed By: #### 2 364257 #### [facility] [address] [place] [address] CHEMISTRYOrdered By: SYSTEM SYSTEM on 03-12-2024 Albumin [...] 03-12-2024 Albumin [Mass/Vol] 4.3 g/dL Normal 3.3-5.0 [facility] Comment on above: Performed By: #### 2 577771 #### [facility] [address] [place] [address] Albumin/Globulin (S) [Mass conc ratio] 2.3 High 1.1-2.2 [facility] Comment on above: Performed By: #### 2 879616 #### [facility] [address] [place] [address] ALP [Catalytic activity/Vol] 54 Int._Unit/L Normal 21-98 [facility] Comment on above: Performed By: #### 2 333203 #### [facility] [address] [place] [address] ALT No additional P-5'-P [Catalytic activity/Vol] 47 Int._Unit/L High 6-46 [facility] Comment on above: Performed By: #### 2 485955 #### [facility] [address] [place] [address] Anion gap [Moles/Vol] 12 mmol/L Normal 6-16 [facility] Comment on above: Performed By: #### 2 777073 #### [facility] [address] [place] [address] AST [Catalytic activity/Vol] 30 Int._Unit/L Normal 5-43 [facility] Comment on above: Performed By: #### 2 429151 #### [facility] [address] [place] [address] Bilirubin [Mass/Vol] 1.8 mg/dL High 0.0-1.1 [facility] Comment on above: Performed By: #### 2 063024 #### [facility] [address] [place] [address] Calcium [Mass/Vol] 9.1 mg/dL Normal 8.9-11.1 [facility] Comment on above: Performed By: #### 2 080312 #### [facility] [address] [place] [address] Chloride [Moles/Vol] 102 mmol/L Normal 101-111 [facility] Comment on above: Performed By: #### 2 553245 #### [facility] [address] [place] [address] CO2 [Moles/Vol] 26 mmol/L Normal 21-31 [facility] Comment on above: Performed By: #### 2 028185 #### [facility] [address] [place] [address] Creatinine [Mass/Vol] 0.8 mg/dL Normal 0.5-1.3 [facility] Comment on above: Performed By: #### 2 067771 #### [facility] [address] [place] [address] Globulin (S) [Mass/Vol] 1.9 g/dL Normal 1.4-4.0 [facility] Comment on above: Performed By: #### 2 750774 #### [facility] [address] [place] [address] Glucose [Mass/Vol] 153 mg/dL Normal 55-199 [facility] Comment on above: Performed By: #### 2 864130 #### [facility] [address] [place] [address] Potassium [Moles/Vol] 4.7 mmol/L Normal 3.5-5.3 [facility] Comment on above: Performed By: #### 2 793849 #### [facility] [address] [place] [address] Protein [Mass/Vol] 6.2 g/dL Normal 6.0-7.8 [facility] Comment on above: Performed By: #### 2 125954 #### [facility] [address] [place] [address] Sodium [Moles/Vol] 135 mmol/L Normal 135-145 [facility] Comment on above: Performed By: #### 2 850692 #### [facility] [address] [place] [address] Urea nitrogen [Mass/Vol] 9 mg/dL Normal 5-21 [facility] Comment on above: Performed By: #### 2 967295 #### [facility] [address] [address] Urea nitrogen/Creatinine [Mass ratio] 11 No Units Normal 10-20 [facility] Comment on above: Performed By: #### 2 386788 #### [facility] [address] [place] [address] Consent for Treatmenton 02-14 Consent for Treatment [id number] #1.00TIFF Normal [facility] Ferritinon 03-12-2024 Ferritin [Mass/Vol] 179 ng/mL Normal 24-336 [facility] Comment on above: Performed By: #### 2 516601 #### [facility] [address] [place] [address] HEMATOLOGYOrdered By: SYSTEM SYSTEM on 03-12-2024 Acanthocytes [...] 03-12-2024 Iron [Mass/Vol] 117 microgram/dL Normal 35-153 [facility] Comment on above: Performed By: #### 2 274322 #### [facility] [address] [place] [address] Iron Saturationon 03-12-2024 Iron binding capacity [Mass/Vol] 326 microgram/dL Normal 250-400 [facility] Comment on above: Performed By: #### 2 076120 #### [facility] [address] [place] [address] Iron saturation [Mass fraction] 36 % Normal 20-50 [facility] Comment on above: Performed By: #### 2 057904 #### [facility] [address] [place] [address] Transferrinon 03-12-2024 Transferrin [Mass/Vol] 233 mg/dL Normal 200-370 [facility] Comment on above: Performed By: #### 2 673134 #### [facility] [address] [place] [address] eGFRon 03-12-2024 eGFR 98 mL/min/1.73 m2 Normal >=59 [facility] Comment on above: Order Comment: Order added by Discern Expert. Performed By: #### 1 4886551 #### [facility] [address] [place] [address] Consent for Treatmenton 0 Consent for Treatment [id number] #1.00TIFF Normal [facility] Consent for Treatmenton - Consent for Treatment [id number] #1.00TIFF [facility] Consent for Treatmenton 01-14 Consent for Treatment [id number] #1.00TIFF [facility] Consenton 01-31-2024 Consent [id number]#1.00TIFF [facility] Outside Diabetes Eye Examon 01-31-2024 Outside Diabetes Eye Exam [id number] #1.00TIFF [facility] Population Healthon 01-26-20 24 Population Health Case Information Case Priority: None Programs: -- Referral Source: [employer] Referral Reason: Disease management Case Type: Chronic Care Management Risk Score: -- Case Status: Active (December 28, 2023) Date Assigned: December 19, 2023 Assigned By: Christian Hernandez Date Enrolled: December 28, 2023 Assigned Primary Personnel: Christian Hernandez Assigned Secondary Personnel: -- Case Physician: Ursula Love MD Ongoing AAA (abdominal aortic aneurysm) Aortic aneurysm BMI 28.0-28.9,adult BPH (benign prostatic hyperplasia) 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[place]in artery Controlled type 2 diabetes mellitus without [...] Assessments 12/28/23 08:18:00 Result Name Value Comment [facility] Program Enrollment Verbally agreed to receive [facility] services [facility] Written Consent Written consent in progress [facility] Verbal Consent By Self 12/28/23 07:00:00 Result Name Value Comment HIPPA Verified Type of Contact In person at home CM Preferred Spoken Language Bulgarian CM Preferred Written Language Bulgarian Preferred Communication Mode Verbal Ability to Read/Write Able to read, Able to write Preferred Salutation Mr. Preferred Method of Contact Cell Cell Phone [phone] Best Time to Visit or Contact 7-10 am Best Day to Visit or Contact No preference Appointment Reminders Patient portal, Other secured messaging Preferred Way to Send PHI Patient portal Preferred Mailing Address [address] [place] [address], [address] Learning Style Pref Patient Verbal explanation Learning [...] Shares bed Support System Spouse/Significant other Primary Care Transition Manager of Home Medication Self Current DME at Home No Currently Receiving Skilled Services No Skilled Service Needs Anticipated No Barriers to Care None Home Barriers None Employment Status Retired Financial Issues None Sources of Income Social Security Pat (more content not included)... Normal [facility] Consent for Treatmenton 01-14 Consent for Treatment [id number] #1.00TIFF Normal [facility] Oncology Progress Noteon Oncology Progress Note Diagnoses [...] his nasa (more content not included)... Normal [facility] Free K+L Lt Chains,Qn,Son Immunoglobulin light chains.kappa.free (S) [Mass/Vol] 19.0 mg/L Invalid Interpretation Code 3.3-19.4 [facility] Comment on above: Performed By: #### 2 [id number], 5983063, 1533927, 3700299, 2953423, 0216442, 6788526, 3300354, 20519048 ####[facility] [address] [place] [address] Immunoglobulin light chains.kappa.free/Imm unoglobulin light chains.lambda.free (S) [Mass ratio] 1.62 Invalid Interpretation Code 0.26-1.65 [facility] Comment on above: Result Comment: Perf ormed at: [facility] [address] [place], [place] [id number] PhD Nicole Fang Performed By: #### 2 12388681, 9682215, 4306017, 3985790, 6224661, 9120269, 7945890, 3278938, 39340792 ####[address] [place] [address] Immunoglobulin light chains.lambda.free [Mass/Vol] 11.7 mg/L Invalid Interpretation Code 5.7-26.3 [facility] Comment on above: Performed By: #### 2 44494600, 1298509, 0240759, 9082305, 6430853, 7173272, 7825364, 1165296, 02753670 ####[address] [place] [address] Immunofixation Serumon 01-16 IgA [Mass/Vol] 87 mg/dL Invalid Interpretation Code 61437 [facility] Comment on above: Performed By: #### 2 40339820, 9640551, 1411692, 0144819, 9061808, 7717756, 8410430, 4435937, 70878328 ####[facility] [address] [place] [address] IgG [Mass/Vol] 406 mg/dL Low 603-1613 [facility] Comment on above: Performed By: #### 2 23044089, 1636208, 4901703, 2646577, 1557170, 5458807, 4143993, 1310813, 01198975 ####[facility] [address] [place] [address] IgM [Mass/Vol] 136 mg/dL Invalid Interpretation Code 20-172 [facility] Comment on above: Result Comment: Perf ormed at: [facility] [address] [id number] PhD Nicole Fang Performed By: #### 2 50826339, 8010821, 0138028, 0763418, 5010353, 6976763, 0114563, 6255858, 28412890 ####[facility] [address] [place] [address] Protein Fractions [Interp] Comment Invalid Interpretation Code [facility] Comment on above: Result Comment: No m onoclonality detected. Performed By: #### 2 19538702, 3370600, 5725986, 1328752, 4065848, 5003835, 3276482, 9840770, 34739548 ####[facility] [address] [place] [address] SPEon 01-17-2024 Albumin [Mass/Vol] 3.6 g/dL Invalid Interpretation Code 2.9-4.4 [facility] Comment on above: Performed By: #### 2 45680801, 2764579, 1173586, 7003315, 6584730, 1313574, 0204957, 8458783, 45005065 ####[facility] [address] [place] [address] Albumin/Globulin [Mass ratio] 1.8 {ratio} High 0.7-1.7 [facility] Comment on above: Performed By: #### 2 82229605, 5739846, 7559498, 5654556, 3213455, 5315533, 4418329, 6735040, 21894093 ####[facility] [address] [place] [address] Alpha 1 globulin Elph [Mass/Vol] 0.2 g/dL Invalid Interpretation Code 0.0-0.4 [facility] Comment on above: Performed By: #### 2 37824047, 3136177, 8891215, 8583326, 3952048, 7485705, 0156092, 1252448, 69619497 ####[facility] [address] [place] [address] Alpha 2 globulin Elph [Mass/Vol] 0.6 g/dL Invalid Interpretation Code 0.4-1.0 [facility] Comment on above: Performed By: #### 2 74228513, 0315602, 3720582, 0422216, 9195103, 1501468, 4212651, 1527541, 61435088 ####[facility] [address] [place] [address] Beta globulin Elph [Mass/Vol] 0.8 g/dL Invalid Interpretation Code 0.7-1.3 [facility] Comment on above: Performed By: #### 2 03279068, 6999718, 6403042, 1170812, 3791360, 8141411, 8035672, 7357107, 27400621 ####[address] [address] Gamma globulin Elph [Mass/Vol] 0.4 g/dL Invalid Interpretation Code 0.4-1.8 [facility] Comment on above: Performed By: #### 2 91972855, 5311073, 7782147, 8032202, 5976986, 0278068, 0317183, 1304293, 62445848 ####[address] [place] [address] Globulin (S) [Mass/Vol] 2.0 g/dL Low 2.2-3.9 [facility] Comment on above: Performed By: #### 2 74016202, 9370255, 7107379, 2835796, 8933236, 1499050, 7055987, 6083889, 19370437 ####[address] [place] [address] Laboratory comment Harman (Report) Comment Invalid Interpretation Code [facility] Comment on above: Result Comment: Prot ein electrophoresis scan will follow via computer, mail, or cloud administrator delivery. Performed By: #### 2 11949101, 8340223, 1575267, 1507901, 6498903, 0814466, 1053409, 5101684, 78782182 ####[facility] [address] [place] [address] Protein [Mass/Vol] 5.6 g/dL Low 6.0-8.5 [facility] Comment on above: Performed By: #### 2 18636947, 7683263, 3782411, 1655585, 4705061, 8231046, 6223557, 0727528, 30648509 ####[facility] [address] [place] [address] Protein Fractions [Interp] Comment: Invalid Interpretation Code [facility] Comment on above: Result Comment: SPE shows decreased total protein. Performed at: [address] [id number] PhD Nicole Fang Performed By: #### 2 44510960, 7797537, 9184438, 1782075, 0462911, 4352374, 0457907, 7208916, 59893114 ####[facility] [address] [place] [address] Protein.monoclonal Elph [Mass/Vol] Not Observed Invalid Interpretation Code Not Observed [facility] Comment on above: Performed By: #### 2 15862310, 3181025, 2936006, 9215360, 0672143, 1876997, 8362273, 7886899, 62964299 ####[facility] [address] [place] [address] CHEMISTRYOrdered By: SYSTEM SYSTEM on 01-16-2024 Cobalamin [...] for Treatmenton Consent for Treatment [id number] #1.00TIFF Normal [facility] Ferritinon 01-16-2024 Ferritin [Mass/Vol] 8 ng/mL Low 24-336 [facility] Comment on above: Performed By: #### 2 07059337, 3690893, 5942510, 3135103, 7363577, 9145805, 1309072, 0746295, 61880023 ####[facility] [address] [place] [address] Folateon 01-16-2024 Folate [Mass/Vol] 13.0 ng/mL Normal >=6.7 [facility] Comment on above: Performed By: #### 2 85969787, 0720860, 6324463, 7218714, 1844201, 0135135, 1125872, 8522155, 32046462 ####[facility] [address] [place] [address] Ironon 01-16-2024 Iron [Mass/Vol] 36 microgram/dL Normal 35-153 [facility] Comment on above: Performed By: #### 2 24679348, 9668532, 8859043, 7865997, 3392451, 7560632, 0460058, 0708238, 74309454 ####[facility] [address] [place] [address] Iron Saturationon 01-16-2024 Iron binding capacity [Mass/Vol] 473 microgram/dL High 250-400 [facility] Comment on above: Performed By: #### 2 61844054, 5843396, 0271010, 6466745, 3140710, 9059969, 3820717, 8668002, 05375595 ####[facility] [address] [place] [address] Iron saturation [Mass fraction] 8 % Low 20-50 [facility] Comment on above: Performed By: #### 2 88630800, 5660181, 8593657, 5659030, 3934986, 5847521, 9730712, 5909769, 92961923 ####[facility] [address] [place] [address] Transferrinon 01-16-2024 Transferrin [Mass/Vol] 338 mg/dL Normal 200-370 [facility] Comment on above: Performed By: #### 2 11294516, 6672679, 3653832, 0083140, 9682707, 6695982, 4094154, 4083118, 11909192 ####[facility] [address] [place] [address] Vit B12on 01-16-2024 Cobalamin (Vitamin B12) [Mass/Vol] 213 pg/mL Normal 50-1500 [facility] Comment on above: Performed By: #### 2 08662453, 0307789, 7404766, 9227683, 0108261, 1626059, 1499182, 7573835, 01218982 ####[facility] [address] [place] [address] 36on 01-10-2024 36 Message sent from patient to my email: Kg Mesa hope all is well, I forgot to ask if I???m 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 Some things I???ve read are telling me not to?? Marilyn, are you able to advise on this? Thanks. Normal [facility] Physician Referralon 024 Physician Referral [id number] #1.00TIFF Normal [facility] Office Visiton 12-29-2023 Follow-up visit [id number] Marcelle Deutsch 1960 M Date Provider Department Center 12/29/2023 PARISA MUNGUIA Family History Problem Relation Age of Onset Coronary artery disease Father Atrial fibrillation Father Heart attack Brother Family Status - Relation Status Age at Father Brother Level of Service:[address] [place] OFFICE/OUTPATIENT ESTABLISHED MOD MDM 30 MIN Normal [facility] ED Pat Eduon 12-28-2023 [facility] Cardiovascular Coronary Artery Disease, Male Coronary artery disease (CAD) is a condition in which the arteries that lead to the heart (coronary arteries) become narrow or blocked. The narrowing or blockage can lead to decreased blood flow to the heart. Prolonged reduced blood flow can cause a heart attack (myocardial infarction, or SD). This condition may also be called coronary [...] these instructions at home: Medicines ? Take wkjz-kcy-jkjutvo and prescription medicines only as told by [...] use any (more content not included)... Normal [facility] 12-28-19 Population Health Case Information Case Priority: None Programs: -- Referral Source: [employer] Referral Reason: Disease management Case Type: Chronic Care Management Risk Score: -- Case Status: Active (December 28, 2023) Date Assigned: December 19, 2023 Assigned By: Christian Hernandez Date Enrolled: December 28, 2023 Assigned Primary Personnel: Christian Hernandez Assigned Secondary Personnel: -- Case Physician: -- Problems Ongoing AAA (abdominal aortic aneurysm) Aortic aneurysm BMI 28.0-28.9,adult BPH (benign prostatic hyperplasia) CAD in [place] artery Controlled type 2 diabetes mellitus without [...] Assessments 12/28/23 08:18:00 Result Name Value Comment [facility] Program Enrollment Verbally agreed to receive [facility] services CCM Written Consent Written consent in progress CCM Verbal Consent By Self 12/28/23 07:00:00 Result Name Value Comment HIPPA Verified Type of Contact In person at home CM Preferred Spoken Language Bulgarian CM Preferred Written Language Bulgarian Preferred Communication Mode Verbal Ability to Read/Write Able to read, Able to write Preferred Salutation MrNelly Preferred Method of Contact Cell Cell Phone [phone] Best Time to Visit or Contact 7-10 am Best Day to Visit or Contact No preference Appointment Reminders Patient portal, Other secured messaging Preferred Way to Send PHI Patient portal Preferred Mailing Address [address] [place] [address], [address] Learning Style Pref Patient Verbal explanation Learning [...] Shares bed Support System Spouse/Significant other Primary Care Transition Manager of Home Medication Self Current DME at Home No Currently Receiving Skilled Services No Skilled Service Needs Anticipated No Barriers to Care None Home Barriers None Employment Status Retired Financial Issues None Sources of Income Social Security Patient Account Ser (more content not included)... Normal [facility] Population Health Problems Ongoing AAA (abdominal aortic aneurysm) Aortic aneurysm BMI 28.0-28.9,adult BPH (benign prostatic hyperplasia) CAD in [place] artery Controlled type 2 diabetes mellitus without [...] - Comments: - - 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 Frequency Status Senior Patrol Agent Review educational material - - Not done [...] - Comments: - - 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 Frequency Status Senior Patrol Agent Review educational material - - Not done [...] - Comments: - - 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 Frequency Status Senior Patrol Agent Review educational material - - Not done [...] - Comments: - - 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 Frequency Status Senior Patrol Agent Review educational material - - Not done [...] - - Selene Hou [facility] CT Chest, Low Dose Screening on 12-27-2023 [...] Bourne MD Transcribed by: LUDWIN Technologist: MEKHI [facility] Consent for Treatmenton 12-14 Consent for Treatment [id number] #1.00TIFF [facility] Family Medicine Office/Clini c Noteon 12-22-2023 Family [...] were given. Reviewed Medicare preventative services checklist. CDC-Falls Prevention and home safety screening reviewed. Patient denies any falls in last 12 months, voices no worry about falling, exhibits no problems with sitting, standing, or ambulation. Pt voices understanding with keeping walk way area free of clutter to prevent tripping and/or falling. [place] Advance Directives reviewed, patient has at home, [...] PCP visit. Will have labs [place] [facility] up to date, due for repeat 2025. Reviewed pain symptoms with patient: Patient reports left shoulder and right hip pain, takes Tylenol and used Biofreeze as needed, states effective. Patient does home exercises, states it is beneficial. Reviewed all outside providers that patient follows. Last visit summary notes available in chart and/or have been requested. Follow up scheduled, ANTONINA STONEV has been scheduled, 12/17/2024 Abnormal findings with [...] during Medicare wellness visits. Patient eligible for CCM services, services explained to patient- intake scheduled 12/26/23 at 1100 2. Other problems related to lifestyle (Z72.89: Other problems related to lifestyle) Information provided and discussed with CDC recommendation that everyone born from 7[birth year] get tested for Hepatitis C. This is [...] Pack Yea (more content not included)... Normal [facility] Comment on above: Result Comment: Elec tronically Signed By: Ursula Love MD\.br\Date and Time Signed: 12/22/23 11:50 EST\.br\Electronically Co-Signed By: Christian Hernandez\.br\Date and Time Co-Signed: 12/18/23 15:00 EST .Interpretation:on 4 HCV Ab IA Ql Comment Invalid Interpretation Code [facility] Comment on above: Result Comment: Not infected with HCV unless early or acute infection is suspected (which may be delayed in an immunocompromised individual), or other evidence exists to indicate HCV infection. Performed at: [facility] [id number] [place], [place] [id number] PhD Nicole Fang Performed By: #### 2 542335, [id number], 0507780, 1423113, 5332982768, 542760168, 71160287 ####[facility] [address] [place] [address] HCV Antibody RFX to Quant PC Kavin 12-20-2023 HCV IgG IA Ql Non-Reactive Invalid Interpretation Code Non Reactive [facility] Comment on above: Result Comment: Perf ormed at: [facility] [address] [id number] PhD Nicole Fang Performed By: #### 2 360122, [id number], 5774691, 2539840, 1963581326, 689026322, 46037646 ####[facility] [address] [place] [address] Screenson 12-19-2023 Screens [id number] #1.00TIFF Normal [facility] Ambulatory Visit Summaryon 0 12-18-2023 Ambulatory Visit [...] 28.0-28.9,adult BPH (benign prostatic hyperplasia) CAD in q[place] artery Controlled type 2 diabetes mellitus without [...] for choosing us for your care. Normal [facility] CBC w/ Auto Diffon 4 Anisocytosis Ql (Bld) PRESENT Invalid Interpretation Code [facility] Comment on above: Performed By: #### 2 373929, 5313330449, 7041692, 9308835, 7280260973, 465505372, 70890038 ####[facility] [address] [place] [address] Basophils/100 WBC (Bld) 0.6 % Normal 0.0-2.0 [facility] Comment on above: Performed By: #### 2 056662, 5624032143, 6491808, 5384837, 6754153430, 027757159, 90312057 ####[address] [address] Basophils/Leukocytes Auto (Bld) [Pure # fraction] 0.0 E9/L Normal 0.0-0.2 [facility] Comment on above: Performed By: #### 2 386102, 2453003754, 6420774, 0045325, 7171823017, 161253294, 71258839 ####[address] [address] Eosinophils (Bld) [#/Vol] 0.1 E9/L Normal 0.0-0.5 [facility] Comment on above: Performed By: #### 2 729922, 7986412024, 6957732, 5114874, 2702634814, 983237494, 34942720 ####[address] [address] Eosinophils/100 WBC (Bld) 2.7 % Normal 0.0-8.0 [facility] Comment on above: Performed By: #### 2 187915, 7196546205, 0812856, 1810146, 0604897584, 988623451, 57827188 ####[place] [address] Erythrocyte distribution width (RBC) [Ratio] 17.2 % High 10.9-14.2 [facility] Comment on above: Performed By: #### 2 974699, 6740809856, 9980527, 7303631, 5859645318, 571301352, 12422894 ####[address] [address] Hematocrit (Bld) [Volume fraction] 34.4 % Low 37.7-49.0 [facility] Comment on above: Performed By: #### 2 145116, 7049286384, 2656322, 2798075, 5723415145, 174046510, 54137896 ####[address] [place] [address] Hemoglobin (Bld) [Mass/Vol] 10.9 g/dL Low 13.5-17.5 [facility] Comment on above: Performed By: #### 2 279489, 0234075668, 9290131, 8725014, 7786589363, 287936634, 83180707 ####[facility] [address] [place] [address] Hypochromia Auto Ql (Bld) PRESENT Invalid Interpretation Code [facility] Comment on above: Performed By: #### 2 763365, 9977503854, 4977484, 8631329, 2653509127, 958378093, 78349285 ####[address] [address] Lymphocytes (Bld) [#/Vol] 1.3 E9/L Normal 1.0-4.0 [facility] Comment on above: Performed By: #### 2 498956, 5808655579, 9203959, 8251933, 5569265458, 219548931, 90210487 ####[address] [address] Lymphocytes/100 WBC (Bld) 25.8 % Normal 14.0-50.0 [facility] Comment on above: Performed By: #### 2 307272, 2253648142, 8288469, 9486527, 3986417749, 376255096, 79525179 ####[address] [place] [address] MCH (RBC) [Entitic mass] 23.3 pg Low 27.0-34.0 [facility] Comment on above: Performed By: #### 2 266429, 4529364769, 6940641, 6215290, 8491179277, 570571269, 10869846 ####[facility] [address] [place] [address] MCHC (RBC) [Mass/Vol] 31.6 g/dL Normal 31.4-36.0 [facility] Comment on above: Performed By: #### 2 505287, 1144399073, 4551310, 9529716, 7032727808, 233138029, 78021216 ####[address] [address] MCV (RBC) [Entitic vol] 73.6 fL Low 80.0-100.0 [facility] Comment on above: Performed By: #### 2 838870, 6776444847, 9945269, 4333396, 3375823861, 558062787, 55898041 ####[address] [address] Microcytes Ql (Bld) PRESENT Invalid Interpretation Code [facility] Comment on above: Performed By: #### 2 566472, 7511410201, 5701289, 9127092, 6932520915, 392959112, 96891056 ####[address] [address] Monocytes (Bld) [#/Vol] 0.4 E9/L Normal 0.2-1.0 [facility] Comment on above: Performed By: #### 2 004131, 1855853675, 8098552, 7719041, 7857954309, 135645618, 29645470 ####[address] [address] Neutrophils (Bld) [#/Vol] 3.2 E9/L Normal 2.0-7.5 [facility] Comment on above: Performed By: #### 2 189993, 8818340652, 3681475, 9183531, 2464146315, 522565272, 46443923 ####[address] [address] Neutrophils/100 WBC (Bld) 63.4 % Normal 36.0-75.0 [facility] Comment on above: Performed By: #### 2 075624, 2936331926, 0667802, 6939599, 1854606828, 026826561, 85632823 ####[facility] [address] [place] [address] Ovalocytes LM Ql (Bld) PRESENT Invalid Interpretation Code [facility] Comment on above: Performed By: #### 2 283302, 4593640346, 1970296, 5476488, 2575522100, 352558905, 25622255 ####[facility] [address] [place] [address] Platelet mean volume (Bld) [Entitic vol] 10.4 fL Normal 6.4-10.8 [facility] Comment on above: Performed By: #### 2 266510, 8780753106, 8286908, 6202914, 6504595693, 266389619, 32744037 ####[facility] [address] [place] [address] Platelets (Bld) [#/Vol] 137.0 E9/L Low 150.0-500.0 [facility] Comment on above: Performed By: #### 2 781850, 1617127378, 0432808, 4848669, 4170718593, 875545776, 11470477 ####[address] [address] Poikilocytosis Auto Ql (Bld) PRESENT Invalid Interpretation Code [facility] Comment on above: Performed By: #### 2 193706, 4227124861, 1565155, 1229233, 3262418562, 206798899, 12977827 ####[address] [place] [address] RBC (Bld) [#/Vol] 4.7 E12/L Normal 4.3-5.9 [facility] Comment on above: Performed By: #### 2 368524, 8459789768, 9731795, 5249349, 8257973170, 010478565, 02209016 ####[facility] [address] [place] [address] WBC corrected for nucl RBC Auto (Bld) [#/Vol] 5.0 E9/L Normal 4.0-11.0 [facility] Comment on above: Performed By: #### 2 828060, 4057219808, 1561418, 2403956, 2813702588, 990861861, 59835409 ####[facility] [address] [place] [address] CHEMISTRYOrdered By: SYSTEM SYSTEM on 12-18-2023 Albumin [...] (Bld) [Mass fraction] 6.9 % High <=5.9% [facility] ChemAutoSS CMPon 12-18-2023 Albumin [Mass/Vol] 4.4 g/dL Normal 3.3-5.0 [facility] Comment on above: Performed By: #### 2 153938, 0471774081, 9956084, 7462176, 7347753563, 817530350, 19771531 ####[facility] [address] [place] [address] Albumin/Globulin (S) [Mass conc ratio] 2.6 High 1.1-2.2 [facility] Comment on above: Performed By: #### 2 319018, 0059296115, 3098839, 6134366, 7352081005, 688380285, 63150501 ####[facility] [address] [place] [address] ALP [Catalytic activity/Vol] 49 Int._Unit/L Normal 21-98 [facility] Comment on above: Performed By: #### 2 693453, 5865103001, 1695560, 0329942, 8894407365, 283834370, 62032103 ####[facility] [address] [place] [address] ALT No additional P-5'-P [Catalytic activity/Vol] 20 Int._Unit/L Normal 6-46 [facility] Comment on above: Performed By: #### 2 741638, 9674126171, 5630929, 1769527, 9498727941, 561729314, 54268910 ####[facility] [address] [place] [address] Anion gap [Moles/Vol] 13 mmol/L Normal 6-16 [facility] Comment on above: Performed By: #### 2 597292, 6376249254, 0637956, 6570060, 5936645437, 967662296, 70118439 ####[facility] [address] [place] [address] AST [Catalytic activity/Vol] 17 Int._Unit/L Normal 5-43 [facility] Comment on above: Performed By: #### 2 289886, 3291468290, 9599822, 1324913, 1772759394, 977987251, 59542409 ####[facility] [address] [place] [address] Bilirubin [Mass/Vol] 1.7 mg/dL High 0.0-1.1 [facility] Comment on above: Performed By: #### 2 287158, 0331652862, 9279255, 1202913, 5419893211, 315497141, 83241757 ####[facility] [address] [place] [address] Calcium [Mass/Vol] 9.3 mg/dL Normal 8.9-11.1 [facility] Comment on above: Performed By: #### 2 596858, 2208073987, 5108021, 8113402, 9289966803, 735328790, 95351886 ####[facility] [address] [place] [address] Chloride [Moles/Vol] 103 mmol/L Normal 101-111 [facility] Comment on above: Performed By: #### 2 789952, 6675334387, 5942468, 3464149, 0954112079, 999354553, 73077888 ####[facility] [address] [place] [address] CO2 [Moles/Vol] 26 mmol/L Normal 21-31 [facility] Comment on above: Performed By: #### 2 797039, 8512525304, 5571763, 9384678, 2649873383, 776411299, 32961067 ####[address] [address] Creatinine [Mass/Vol] 0.8 mg/dL Normal 0.5-1.3 [facility] Comment on above: Performed By: #### 2 224051, 1313726432, 9767836, 8322054, 6801136619, 491486738, 92103062 ####[address] [address] Globulin (S) [Mass/Vol] 1.7 g/dL Normal 1.4-4.0 [facility] Comment on above: Performed By: #### 2 540942, 1115649351, 3174618, 2625268, 7309052719, 009756178, 90063988 ####[facility] [address] [place] [address] Glucose [Mass/Vol] 124 mg/dL Normal 55-199 [facility] Comment on above: Performed By: #### 2 323621, 5974481239, 0648204, 9832565, 1656979748, 684183591, 00846781 ####[address] [place] [address] Potassium [Moles/Vol] 4.0 mmol/L Normal 3.5-5.3 [facility] Comment on above: Performed By: #### 2 427225, 8746919278, 8034094, 7420451, 4603465677, 781707175, 08673477 ####[address] [place] [address] Protein [Mass/Vol] 6.1 g/dL Normal 6.0-7.8 [facility] Comment on above: Performed By: #### 2 978226, 2440375587, 0300725, 9804166, 9007481644, 618717888, 42170446 ####[address] [address] Sodium [Moles/Vol] 138 mmol/L Normal 135-145 [facility] Comment on above: Performed By: #### 2 791501, 4028403149, 0907982, 1931844, 4069793800, 450984685, 55236922 ####[facility] [address] [place] [address] Urea nitrogen [Mass/Vol] 8 mg/dL Normal 5-21 [facility] Comment on above: Performed By: #### 2 390133, 9564417021, 9876023, 0050979, 7742138203, 574623162, 19391024 ####[address] [address] Urea nitrogen/Creatinine [Mass ratio] 10 No Units Normal 10-20 [facility] Comment on above: Performed By: #### 2 480441, 6448979159, 5288591, 1091883, 6662267767, 726614875, 69845442 ####[facility] [address] [place] [address] HEMATOLOGYOrdered By: SYSTEM SYSTEM on 12-18-2023 Anisocytosis [...] Normal 4.0 - 11.0 E9/L Remisol Heme OjdO2ror 12-18-2023 HbA1c (Bld) [Mass fraction] 6.9 % High <=5.9 [facility] Comment on above: Performed By: #### 2 753850, 5861152567, 3407985, 2705261, 1867734694, 543240077, 49922865 ####[facility] [address] [place] [address] Lipid Panelon 12-18-2023 Cholesterol [Mass/Vol] 118 mg/dL Low 120-200 [facility] Comment on above: Performed By: #### 2 356556, 0449577228, 5484029, 9414840, 5007410882, 222254230, 80806071 ####[facility] [address] [place] [address] Cholesterol in HDL [Mass/Vol] 37 mg/dL Invalid Interpretation Code [facility] Comment on above: Result Comment: '>= 60 LOW RISK' '<= 40 HIGH RISK' Performed By: #### 2 813543, 6606357095, 1404084, 4291497, 0706523482, 030334291, 58332326 ####[facility] [address] [place] [address] Cholesterol in LDL [Mass/Vol] 72 mg/dL Normal <=129 [facility] Comment on above: Performed By: #### 2 299062, 3789555778, 7114649, 5394383, 6742006528, 461178574, 48229796 ####[facility] [address] [place] [address] Cholesterol in VLDL [Mass/Vol] 22 mg/dL Normal 7-40 [facility] Comment on above: Performed By: #### 2 007318, 0597738999, 3672964, 7217722, 3511620392, 556850187, 19446353 ####[facility] [address] [place] [address] Triglyceride [Mass/Vol] 112 mg/dL Normal <=149 [facility] Comment on above: Performed By: #### 2 226871, 7075792587, 2121164, 1283226, 2738473504, 416435063, 92093781 ####[facility] [address] [place] [address] Patient Educationon 12-18-19 Patient Education Cardiovascular Atrial Fibrillation Atrial fibrillation [...] signals of the heart. ? An ambulatory quality assurance monitor chassis to record your heart's activity for a [...] Trouble breathing. (more content not included)... Normal [facility] eGFRon 12-18-2023 eGFR 98 mL/min/1.73 m2 Normal >=59 [facility] Comment on above: Order Comment: Order added by Discern Expert. Performed By: #### 2 928636, 5522981240, 4618319, 9668543, 3379287074, 458185885, 61690283 ####[facility] [address] [place] [address] 36on 11-20-2023 36 Patient emailed me and asked if we had samples of Xarelto. Since he's on Medicare now it's very expensive for him. We haven't had a rep bring samples of Xarelto in about 1 year. I mentioned switching to Eliquis, since we do get samples of that. Ok to send RX for Eliquis 5mg bid? Please advise. Thanks! Normal [facility] Ambulatory Visit Summaryon 1 12-05-2022 Ambulatory [...] Appointments Monday 8:00 AM EDT With: Where: [address] \.br\ Medications\.br \ What How Much When [...] BPH (benign prostatic hyperplasia)\.b r\ CAD in qaw[place]angin artery\.br\ Controlled type 2 diabetes mellitus without [...] 28.0-28.9,adult BPH (benign prostatic hyperplasia) CAD in q[place]in artery Controlled type 2 diabetes mellitus without [...] 07/30/2018 Recorded Normal [facility] Comment on above: Result Comment: Elec tronically Signed By: WILLIAM NIELSON, Jose Luis Jin\Date and Time Signed: 10/04/23 13:35 EST Reminderson 12-20-2023 Reminders - From: Kori Saldivar LPN To: [facility] - Clinical; Sent: 10/04/2023 13:36:47 EST Show up: 08/21/2026 07:00:00 EST Subject: colonoscopy recall Due Date/Time: 09/20/2026 07:00:00 EST Reminder/Recall Patient due for surveillance colonoscopy 09/20/2026 due to history of tubular adenoma. Normal [facility] Pathology Noteon 09-27-2023 Pathology Note [id number]#1.00TIFF Normal [facility] Outside Colonoscopyon 2022 Outside Colonoscopy [id number] #1.00TIFF Normal [facility] Lab Reportson 09-21-2023 Lab Reports [id number] #1.00TIFF [facility] Physician Referralon 023 Physician Referral [id number] #1.00TIFF [facility] Physician Referralon 023 Physician Referral [id number]# 1.00TIFF [facility] Consent for Procedure/Surger yon 08-30-2023 Consent for Procedure/Surgery [id number]#1.00TIFF [facility] Ambulatory Visit Summaryon 10-29-2022 Ambulatory Visit Summary [...] Appointments Monday 8:00 AM EDT With: Where: [facility] [place] [id number]- \.br\ Medications\.br \ What How Much When [...] BPH (benign prostatic hyperplasia)\.b r\ CAD in qawalangin artery\.br\ Controlled type 2 diabetes mellitus without [...] for choosing us for your care.\.br\ \.br\ [facility] Ambulatory Visit Summaryon 10-16-2022 Ambulatory Visit Summary MARCELLE DEUTSCH :1960 Visit Date:08/16/2023 Ambulatory Visit Instructions Your Diagnosis Kidney stone Gross hematuria BPH (benign prostatic hyperplasia) Personal history of kidney stones Former smoker Family history of kidney cancer Tests Performed Urnls Dip Stick Auto w/o Microscopy POC 97667 Your Care Team Attending Physician - Shelley Bruce MD Primary Care Physician - Ursula Love [...] Jose Luis THOMAS MD Where: General Surgery [facility] Invalid Interpretation Code [address] [place] [address]- \.br\ Monday 8:40 AM EDT \.br\ With: Ursula Love MD\.br\ Where: [facility] Patient Educationon 08-16-20 Patient Education Nephrology [...] Spinach (cooked), rhubarb, beets, sweet potatoes, and Ivorian chard. ? Peanuts. ? Potato chips, wallisian fries, and baked potatoes with skin on. ? Nuts and nut products. ? Chocolate. ? If you regularly take a diuretic medicine, make sure to eat at least 1 or 2 servings of fruits or vegetables that are high in potassium each day. These include: ? Avocado. ? Banana. ? [place], prune, carrot, or tomato juice. ? Baked [...] fish oil, or vitamin B6. ? Take efuh-jyo-mqwgkdd and prescription medicines only as told by your health care provider. These include supplements. What foods should I limit? Limit your in (more content not included)... Normal [facility] Screenson 08-16-2023 Screens [id number] #1.00TIFF Normal [facility] Urology Office/Clinic Noteon 08-16-2023 Urology Office/Clinic Note [...] 08/01/23 requesting xrays. (Nothing on Kofi) CT ap wo 08/07/23 UA 08/04/23 PSA [...] Modifications. -Increase fluid intake, 90oz/day, clear fluids, lemon/[place] 2. Gross hematuria (R31.0: Gross hematuria) CT [...] (benign prostatic (more content not included)... Normal [facility] Comment on above: Result Comment: Elec tronically Signed By: Shelley Bruce MD.br\Date and Time Signed: 08/16/23 09:03 EDT\.br\Electronically Co-Signed [...] No Oral contrast amount in ml's: 0 [facility] Consent for Treatmenton 10-2 Consent for Treatment [id number] #1.00TIFF [facility] Ambulatory Visit Summaryon 1 Ambulatory Visit Summary MARCELLE DEUTSCH :1960 Visit Date:08/04/2023 Ambulatory Visit Instructions Your [...] Follow-Up Appointments Monday 2:20 PM EST With: NILL MD, Jose Luis R Where: General Surgery [facility] Invalid Interpretation Code [address] [place] [address]- \.br\ Monday 8:40 AM EDT \.br\ With: Km NIELSON, Ursula Porter\.br\ Where: [facility] Nurse Consultation Noteon Nurse Consultation Note [...] influenza virus vaccine, inactivated 07/30/2018 Recorded Normal [facility] URINALYSISOrdered By: Isaiah Garcia on 08-04-2023 Bacteria [...] PM) Normal Negative [facility] UA Auto SS [place].plasma/Lithiu m.RBC (Bld) [Mass ratio] 0-3 /HPF Normal [...] Desc Clean Catch (08/04/23 2:10 PM) Normal [facility] UA Auto SS Urobilinogen Qn (U) 0.5056330 {Denny'U}/dL Normal 0.0 - 1.0 EU/dL [facility] UA Auto SS WBC Auto Ql (U) Negative (08/04/23 2:10 PM) Normal Negative [facility] UA Auto SS WBC LM.HPF (Urine sed) [#/Area] 0-5 /HPF Normal 0-5/HPF [facility] UA Auto SS Urinalysison 08-04-2023 Bacteria LM Ql (Urine sed) TRACE Normal Trace [facility] Comment on above: Performed By: #### 1 6341457 ####[facility] [address] [place] [address] Bilirubin Ql (U) Negative Normal Negative [facility] Comment on above: Performed By: #### 1 1866522 ####[facility] [address] [place] [address] Clarity (U) CLEAR Normal Clear [facility] Comment on above: Performed By: #### 1 1777074 ####[facility] [address] [place] [address] Color (U) YELLOW Normal Yellow [facility] Comment on above: Performed By: #### 1 2628455 ####[facility] [address] [place] [address] Crystals LM Ql (Urine sed) Present Normal [facility] Comment on above: Performed By: #### 1 9773922 ####[facility] [address] [place] [address] Epithelial cells.squamous LM.HPF (Urine sed) [#/Area] 0-2 Normal 0-2 [facility] Comment on above: Performed By: #### 1 0602117 ####[facility] [address] [place] [address] Glucose Test strip (U) [Mass/Vol] Negative Normal Negative [facility] Comment on above: Performed By: #### 1 5577045 ####[facility] [address] [place] [address] Hemoglobin Ql (U) Negative Normal Negative [facility] Comment on above: Performed By: #### 1 1502456 ####[facility] [address] [place] [address] Ketones (U) [Mass/Vol] Negative Normal Negative [facility] Comment on above: Performed By: #### 1 4235063 ####[facility] [address] [place] [address] [place].plasma/Lithiu m.RBC (Bld) [Mass ratio] 0-3 Normal 0-3 [facility] Comment on above: Performed By: #### 1 4279567 ####[address] [address] Nitrite Ql (U) Negative Normal Negative [facility] Comment on above: Performed By: #### 1 5510036 ####[place] [address] pH (U) 6.0 [pH] Invalid Interpretation Code 5.0-9.0 [facility] Comment on above: Performed By: #### 1 3581391 ####[place] [address] Protein (U) [Mass/Vol] Negative Normal Negative [facility] Comment on above: Performed By: #### 1 7799289 ####[place] [address] Specific gravity (U) [Rel density] <=1.005 Invalid Interpretation Code 1.005-1.030 [facility] Comment on above: Performed By: #### 1 9287583 ####[place] [address] Type of Urine collection method Clean Catch Normal [facility] Comment on above: Performed By: #### 1 7493637 ####[place] [address] Urobilinogen Qn (U) 0.2 {Denny'U}/dL Normal 0.0-1.0 [facility] Comment on above: Performed By: #### 1 3476272 ####[address] [address] WBC Auto Ql (U) Negative Normal Negative [facility] Comment on above: Performed By: #### 1 1015112 ####[address] [address] WBC LM.HPF (Urine sed) [#/Area] 0-5 Normal 0-5 [facility] Comment on above: Performed By: #### 1 0542054 ####[facility] [address] [place] [address] Physician Referralon 023 Physician Referral [id number] #1.00TIFF Normal [facility] Lab Reportson 08-02-2023 Lab Reports [id number] #1.00TIFF Normal [facility] Ambulatory Visit Summaryon 1 Ambulatory Visit Summary MARCELLE DEUTSCH :1960 Visit Date:07/19/2023 Ambulatory Visit Instructions Your Diagnosis BMI 28.0-28.9,adult Non-smoker Hematuria Kidney stone Left flank pain Dysuria Tests Performed Urnls Dip Stick Non-Auto w/o Micrscpy POC 03386 Your Care Team Attending Physician - Karen [...] Appointments Monday 8:00 AM EDT With: Where: [facility] Normal [address] [place] [address]- \.br\ Medications\.br \ What How Much When Why Instructions\.b r\ New tamsulosin (Flomax 0.4 mg Cap) 1 Capsules By Mouth Every day BMI 28.0-28.9,adult Non-smoker Hematuria Kidney stone Left flank pain Dysuria Pickup at [facility]/pharmacy #[id number]\.br\ Unchanged amlodipine (amLODIPine 5 mg Tab) By [...] day (in the evening)\.br\ Pharmacy Information\.br \ [facility]/pharmacy #[id number]: [address], [place] [phone]\.br\ Test Results\.br\ Urnls Dip Stick Non-Auto w/o Micrscpy POC 24745 (07/19/2023)\.b r\ Bilirubin Urine Dipstick - Negative\.br\ Blood Urine Dipstick - 3+ Large\.br\ Glucose Urine Dipstick - Negative\.br\ Ketones Urine Dipstick - Negative\.br\ Leukocytes Urine Dipstick - Negative\.br\ Nitrite Urine Dipstick - Negative\.br\ Protein Urine Dipstick - Negative\.br\ Specific [place] Urine Dipstick - <=1.005\.br\ Urine Appearance Urine Dipstick - Clear\.br\ Urine Color Urine Dipstick - Light yellow\.br\ Urobilinogen Urine Dipstick - Normal 0.2-1 EU/dl\.br\ pH Urine Dipstick - 7\.br\ Allergies\.br\ penicillins\.br \ Problems\.br\ Ongoing - Any problem that you are currently receiving treatment for.\.br\ BMI 28.0-28.9,adult \.br\ CAD in q[place] artery\.br\ Controlled type 2 diabetes mellitus without [...] Dyslipidemia\.b r\ Hypertension\.b r\ Metabolic syndrome\.br\ \.br\ [facility] Ambulatory Visit Summary MARCELLE DEUTSCH :1960 Visit Date:07/19/2023 Ambulatory Visit Instructions Your Diagnosis BMI 28.0-28.9,adult Non-smoker Hematuria Kidney stone Left flank pain Dysuria Tests Performed Urnls Dip Stick Non-Auto w/o Micrscpy POC 00691 Your Care Team Attending Physician - Karen [...] Appointments Monday 8:00 AM EDT With: Where: [facility] Normal [address] [phone]- \.br\ Medications\.br \ What How Much When Why Instructions\.b r\ New tamsulosin (Flomax 0.4 mg Cap) 1 Capsules By Mouth Every day BMI 28.0-28.9,adult Non-smoker Hematuria Kidney stone Left flank pain Dysuria Pickup at [facility]/pharmacy #[id number]\.br\ Unchanged amlodipine (amLODIPine 5 mg Tab) By [...] day (in the evening)\.br\ Pharmacy Information\.br \ [facility]/pharmacy #[id number]: [address], [place] [phone]\.br\ Test Results\.br\ Urnls Dip Stick Non-Auto w/o Micrscpy POC 95588 (07/19/2023)\.b r\ Bilirubin Urine Dipstick - Negative\.br\ Blood Urine Dipstick - 3+ Large\.br\ Glucose Urine Dipstick - Negative\.br\ Ketones Urine Dipstick - Negative\.br\ Leukocytes Urine Dipstick - Negative\.br\ Nitrite Urine Dipstick - Negative\.br\ Protein Urine Dipstick - Negative\.br\ Specific [place] Urine Dipstick - <=1.005\.br\ Urine Appearance Urine Dipstick - Clear\.br\ Urine Color Urine Dipstick - Light yellow\.br\ Urobilinogen Urine Dipstick - Normal 0.2-1 EU/dl\.br\ pH Urine Dipstick - 7\.br\ Allergies\.br\ penicillins\.br \ Problems\.br\ Ongoing - Any problem that you are currently receiving treatment for.\.br\ BMI 28.0-28.9,adult \.br\ CAD in qawal[place]in artery\.br\ Controlled type 2 diabetes mellitus without [...] Daily, # 10 cap(s), Refills(s) 0, Pharmacy: [facility]/pharmacy #[id number], 178, cm, 07/19/23 11:20:00 EDT, Height/Length Dosing, 89.2, kg, 07/19/23 11:20:00 EDT, Weight Dosing Urnls Dip Stick Non-Auto w/o Micrscpy POC 43282 2. Hematuria (R31.9: Hematuria, unspecified) large blood in urinalysis in office. everything else negative Ordered: tamsulosin, 0.4 mg = 1 cap(s), Oral, Daily, # 10 cap(s), Refills(s) 0, Pharmacy: [facility]/pharmacy #[id number], 178, cm, 07/19/23 11:20:00 EDT, Height/Length Dosing, 89.2, kg, 07/19/23 11:20:00 EDT, Weight Dosing Urnls Dip Stick Non-Auto w/o Micrscpy POC 62410 3. Kidney stone (N20.0: Calculus of kidney) will order flomax. if symptoms worsen will order KUB Ordered: tamsulosin, 0.4 mg = 1 cap(s), Oral, Daily, # 10 cap(s), Refills(s) 0, Pharmacy: [facility]/pharmacy #[id number], 178, cm, 07/19/23 11:20:00 EDT, Height/Length Dosing, 89.2, kg, 07/19/23 11:20:00 EDT, Weight Dosing 4. Dysuria (R30.0: Dysuria) pt states the pain is improving Ordered: tamsulosin, 0.4 mg = 1 cap(s), Oral, Daily, # 10 cap(s), Refills(s) 0, Pharmacy: [facility]/pharmacy #[id number], 178, cm, 07/19/23 11:20:00 EDT, Height/Length Dosing, 89.2, kg, 07/19/23 11:20:00 EDT, Weight Dosing Urnls Dip Stick Non-Auto w/o Micrscpy POC 56855 5. Non-smoker (Z78.9: Other specified health status) continue not smoking Ordered: tamsulosin, 0.4 mg = 1 cap(s), Oral, Daily, # 10 cap(s), Refills(s) 0, Pharmacy: [facility]/pharmacy #[id number], 178, cm, 07/19/23 11:20:00 EDT, Height/Length Dosing, 89.2, kg, 07/19/23 11:20:00 EDT, Weight Dosing Urnls Dip Stick Non-Auto w/o Micrscpy POC 65676 6. BMI 28.0-28.9,adult (Z68.28: Body mass index [BMI] 28.0-28.9, adult) BMI education complete Ordered: tamsulosin, 0.4 mg = 1 cap(s), Oral, Daily, # 10 cap(s), Refills(s) 0, Pharmacy: [facility]/pharmacy #[id number], 178, cm, 07/19/23 11:20:00 EDT, Height/Length Dosing, 89.2, kg, 07/19/23 11:20:00 EDT, Weight Dosing Urnls Dip Stick Non-Auto w/o Micrscpy POC 76445 Follow-up No qualifying data available Problem List/Past Medical History Ongoing BMI 28.0-28.9,adult CAD in qaw[place]in artery Controlled type 2 diabetes mellitus without [...] Risk, 08/29/ (more content not included)... Normal [facility] Comment on above: Result Comment: Elec tronically Signed By: Karen Deleon\.jp\Date and Time Signed: 07/19/23 17:48 EDT PSA Free & Totalon 3 Free PSA/Total PSA [Mass fraction] [facility] Abnormal >=25.0 [facility] Comment on above: Result Comment: Resu lt verified by [employer]. Performed result UTC (Unable to Calculate) was sent as an [...] SO, 1998; 279:1542-7 Performed By: #### 1 [id number], [id number] ####[facility] [address] [place] [address] Free PSA [Mass/Vol] <0.1 Invalid Interpretation Code [facility] Comment on above: Result Comment: The concentration of free PSA and total PSA determined with assays from different manufacturers can vary due to differences in assay methods and specificity. Values obtained with different x ray equipment mechanic's assays cannot be used interchangeably. The methodology used to obtain this result was chemiluminescence using Tenisha Stockr's Access Hybritech PSA reagent and Access Hybritech free PSA reagent. Performed By: #### 1 [id number], [id number] ####[facility] [address] [place] [address] Prostate specific Ag [Mass/Vol] 0.2 ng/mL Normal 0.1-3.5 [facility] Comment on above: Result Comment: The concentration of PSA determined by different manufacturers can vary due to differences in assay methods and reagent specificity. Values obtained from different assay methods cannot be used interchangeably. The methodology used for this result was chemiluminescence using Tenisha Stockr's Access Hybritech PSA reagent. Performed By: #### 1 [id number], [id number] ####[facility] [address] [place] [address] CHEMISTRYOrdered By: Julien merida on 07-04-2023 Albumin DL <= 20 mg/L (U) [Mass/Vol] microgram/mL Normal 0.0 - 19.0 mcg/mL [facility] Remisol Albumin Elph (U) [Mass fraction] mg/dL Invalid Interpretation Code [facility] Remisol Creatinine (U) [Mass/Vol] 17.7 mg/dL Invalid Interpretation Code [facility] Remisol U Prot/Creat Ratio [facility] Invalid Interpretation Code 0.00 - 200.00 [facility] U Microalbon 07-04-2023 Albumin DL <= 20 mg/L (U) [Mass/Vol] mg/dL Normal 0.0-19.0 [facility] Comment on above: Performed By: #### 1 [id number], [id number] ####[facility] [address] [place] [address] U Protein/Creat Ratioon 06-16 Albumin Elph (U) [Mass fraction] <6.0 Invalid Interpretation Code [facility] Comment on above: Result Comment: The reference range and other method performance specifications have not been established for this test; results should be integrated into the clinical context for interpretation. Performed By: #### 1 [id number], [id number] ####[facility] [address] [place] [address] Creatinine (U) [Mass/Vol] 17.7 mg/dL Invalid Interpretation Code [facility] Comment on above: Result Comment: The reference range and other method performance specifications have not been established for this test; results should be integrated into the clinical context for interpretation. Performed By: #### 1 [id number], [id number] ####[facility] [address] [place] [address] U Prot/Creat Ratio [facility] Invalid Interpretation Code .00-200.00 [facility] Comment on above: Performed By: #### 1 [id number], [id number] ####[facility] [address] [place] [address] Ambulatory Visit Summaryon 0 07-03-2023 Ambulatory Visit Summary MARCELLE DEUTSCH :1960 Visit Date:07/03/2023 Ambulatory Visit Instructions Your Diagnosis Primary hypertension Longstanding persistent atrial fibrillation Mixed hyperlipidemia Controlled type 2 diabetes mellitus without complication, without long-term current use of insulin BMI 28.0-28.9,adult Overweight Screening for prostate cancer Screening for colon cancer Excess ear wax GERD without esophagitis Your Care Team Attending Physician - Km NIELSON, Ursula Porter Primary Care Physician - Km NIELSON, Ursula Porter This Is Your Medications List diltiazem (diltiazem [...] Appointments Monday 8:00 AM EDT With: Where: [facility] Normal [address] \.br\ Medications\.br \ What How Much When Instructions\.b r\ Changed omeprazole (omeprazole 20 mg Cap-DR) 1 Capsules By Mouth Every day Pickup at [facility]\.br\ Unchanged diltiazem (diltiazem 30 mg Tab) See [...] or concerns \.br\ Pharmacy Information\.br \ [facility]: [facility] [address] [place] [address] [phone]\.br\ Allergies\.br\ penicillins\.br \ Problems\.br\ Ongoing - Any problem that you are currently receiving treatment for.\.br\ BMI 28.0-28.9,adult \.br\ CAD in qawalangin artery\.br\ Controlled type 2 diabetes mellitus without complication, without long-term current use of insulin\.br\ Excess ear wax\.br\ GERD without esophagitis\.br \ Longstanding persistent atrial fibrillation\.b r\ Mixed hyperlipidemia\ .br\ Non-smoker\.br\ Primary hypertension\.b r\ Screening for colon cancer\.br\ Screening for prostate cancer\.br\ Historical - Any problem that you are no longer receiving treatment for.\.br\ Atrial fibrillation\.b r\ Dyslipidemia\.b r\ Hypertension\.b r\ Metabolic syndrome\.br\ \.br\ [facility] CHEMISTRYOrdered By: Bobby roman on 07-03-2023 HbA1c (Bld) [Mass fraction] 6.8 % High <=5.9% [facility] ChemAutoSS Family Medicine Office/Clini c Noteon 07-03-2023 Family Medicine Office/Clinic Note HPI Staff Marcelle is a 63 year old male presenting for a full physical exam Health Maintenance: Colonoscopy: coloard 3 years ago, due PSA: ?? Last Labs: [facility] he's unsure when no results in [...] didn't feel it was a problem email [email or web address] on refill omeprazole to [facility] [employer]current Thinking History of Present Illness - Here for [...] Daily, # 30 tab(s), Refills(s) 0, Pharmacy: [facility]/pharmacy #[id number] omeprazole, 20 mg = 1 cap(s), Oral, Daily, # 90 cap(s), Refills(s) 1, Pharmacy: [facility], 178, cm, 07/03/23 7:24:00 EDT, Height/Length Dosing, 90, kg, 07/03/23 7:24:00 EDT, Weight Dosing - Follow up in 6 months for Welcome to medicare. Follow-up No qualifying data available Problem List/Past Medical History Ongoing BMI 28.0-28.9,adult CAD in q[place] artery Controlled type 2 diabetes mellitus without complication, without long-term current use of insulin Excess ear wax GERD without esophagitis Longstanding (more content not included)... Normal [facility] Comment on above: Result Comment: Elec tronically Signed By: Km NIELSON, Ursula Luis.br\Date and Time Signed: 07/03/23 07:50 EDT Formson 07-03-2023 Forms [id number] #1.00CD:127 Normal [facility] Forms [id number]# 1.00CD:127 Normal [facility] [id number] 07-03-2023 HbA1c (Bld) [Mass fraction] 6.8 % High <=5.9 [facility] Comment on above: Performed By: #### 1 [id number] ####[facility] [address] [place] [address] Consultation Noteon 06-28-20 Consultation Note [id number] #1.00CD:127 Normal [facility] Office Visiton 06-21-2023 Follow-up visit [id number] Marcelle Deutsch 1960 M Date Provider Department Center 06/21/2023 [facility]ANKA LOMELI C[facility] Family History Problem Relation Age of Onset Coronary artery disease Father Atrial fibrillation Father Heart attack Brother Family Status - Relation Status Age at Father Brother Level of Service:19153 [place] OFFICE/OUTPATIENT ESTABLISHED LOW MDM 20-29 MIN Reason for Visit and Comments: Follow-up [152019] - 6 month F/U Normal [facility] CBC AUTO DIFFon 01-04-2023 BASO # 0.1 103/ul Normal 0.0-0.1 [facility] Comment on above: Performed By: #### C BC #### [facility] [address] [address] [address] Lucia San Basophils/100 WBC (Bld) 1.0 % Normal 0.2-2.0 [facility] Comment on above: Performed By: #### C BC #### [facility] [address] [place] [address] Dr. Lucia San EO # 0.1 103/ul Normal 0.0-0.7 [facility] Comment on above: Performed By: #### C BC #### [facility] [address] [address] [address] Lucia San Eosinophils/100 WBC (Bld) 2.5 % Normal 0.9-7.0 [facility] Comment on above: Performed By: #### C BC #### [facility] [address] [place] [address] Dr. Lucia San Erythrocyte distribution width (RBC) [Ratio] 17.3 % Critically high 11.0-15.0 [facility] Comment on above: Performed By: #### C BC #### [facility] [address] [address] [address] Lucia San Hematocrit (Bld) [Volume fraction] 35.2 % Critically low 42.0-54.0 [facility] Comment on above: Performed By: #### C BC #### [facility] [address] [place] [address] Dr. Lucia San Hemoglobin (Bld) [Mass/Vol] 11.3 g/dL Critically low 14.0-18.0 [facility] Comment on above: Performed By: #### C BC #### [facility] [address] [place] [address] Dr. Lucia San IG # 0.02 10e3/ul Normal 0.00-0.03 [facility] Comment on above: Performed By: #### C BC #### [facility] [address] [place] [address] Dr. Lucia San IG % 0.4 % Normal 0.0-0.5 [facility] Comment on above: Performed By: #### C BC #### [facility] [address] [place] [address] Dr. Lucia San LYMPH # 1.6 103/ul Normal 1.2-3.8 [facility] Comment on above: Performed By: #### C BC #### [facility] [address] [place] [address] Dr. Lucia San Lymphocytes/100 WBC (Bld) 30.9 % Normal 20.5-60.0 [facility] Comment on above: Performed By: #### C BC #### [facility] [address] [place] [address] Dr. Lucia San MANUAL DIFF REQ NO Normal [facility] Comment on above: Performed By: #### C BC #### [facility] [address] [place] [address] Dr. Lucia San MCH (RBC) [Entitic mass] 23.9 pg Critically low 25.9-34.0 [facility] Comment on above: Performed By: #### C BC #### [facility] [address] [place] [address] Dr. Lucia San MCHC (RBC) [Mass/Vol] 32.1 g/dL Normal 29.9-35.2 [facility] Comment on above: Performed By: #### C BC #### [facility] [address] [place] [address] Dr. Lucia San MCV (RBC) [Entitic vol] 74.6 fL Critically low 80.0-94.0 [facility] Comment on above: Performed By: #### C BC #### [facility] [address] [place] [address] Dr. Lucia San MONO # 0.5 103/ul Normal 0.3-0.8 [facility] Comment on above: Performed By: #### C BC #### [facility] [address] [place] [address] Dr. Lucia San Monocytes/100 WBC (Bld) 9.1 % Normal 1.7-12.0 [facility] Comment on above: Performed By: #### C BC #### [facility] [address] [place] [address] Dr. Lucia San NEUT # 2.9 103/ul Normal 1.4-6.5 [facility] Comment on above: Performed By: #### C BC #### [facility] [address] [place] [address] Dr. Lucia San Neutrophils/100 WBC (Bld) 56.1 % Normal 43.0-75.0 [facility] Comment on above: Performed By: #### C BC #### [facility] [address] [place] [address] Dr. Lucia San Platelet mean volume (Bld) [Entitic vol] 11.6 fL Normal 9.5-13.5 [facility] Comment on above: Performed By: #### C BC #### [facility] [address] [place] [address] Dr. Lucia San PLT 172 103/ul Normal 150-450 [facility] Comment on above: Performed By: #### C BC #### [facility] [address] [place] [address] Dr. Lucia San RBC 4.72 106/ul Normal 4.70-6.10 [facility] Comment on above: Performed By: #### C BC #### [facility] [address] [place] [address] Dr. Lucia San WBC 5.2 103/ul Normal 4.0-11.0 [facility] Comment on above: Performed By: #### C BC #### [facility] [address] [place] [address] Dr. Lucia San ECHOCARDIO M/2D COMPLETEon 0 01-04-2023 ECHOCARDIO M/2D COMPLETE Patient: MARCELLE DEUTSCH Exam Date: 01/04/2023 : 1960 Gender:M Ordering : DR BLANKA GORE M.D. Admission #: [id number] Family : Order #: [id number] CLICK HERE TO VIEW EXAM ECHOCARDIOGRAM REPORT [...] Area (VTI): 3.28 cm2, 3.28 cm2 Deceleration White: 0.48 m/s2 Pressure Half-Time: 1.33 s Peak [...] [place] M.D. on 01/04/2023 at 15:00 Normal [facility] GLYCOHEMOGLOBIN A1Con 2022 ADA RECOMMENDATION SEE BELOW Normal [facility] Comment on above: Result Comment: ADA RECOMMENDED LIMIT 4.0 - 6.0 ADA THERAPEUTIC TARGET < 7.0 ACTION SUGGESTED > 7.0 Performed By: #### A 1C #### [facility] [address] [address] [address] Lucia San HbA1c (Bld) [Mass fraction] 6.9 % Critically high 4.5-6.2 [facility] Comment on above: Performed By: #### A 1C #### [facility] [address] [address] [address] Lucia San LIPID PROFILEon 01-04-2023 CHOL-HDL RATIO NORM SEE BELOW Normal [facility] Comment on above: Result Comment: 3.3 - 4.4 LOW RISK 4.4 - 7.1 AVERAGE RISK 7.1 - 11.0 MODERATE RISK >11.0 HIGH RISK Performed By: #### L IPID #### [facility] [address] [place] [address] Dr. Lucia San Cholesterol [Mass/Vol] 140 mg/dL Normal <=200 [facility] Comment on above: Performed By: #### L IPID #### [facility] [address] [place] [address] Dr. Lucia San Cholesterol in HDL [Mass/Vol] 37 mg/dL Critically low 40-60 [facility] Comment on above: Performed By: #### L IPID #### [facility] [address] [place] [address] Dr. Lucia San Cholesterol in LDL [Mass/Vol] 80.2 mg/dL Normal [facility] Comment on above: Performed By: #### L IPID #### [facility] [address] [address] [address] Lucia San Cholesterol.total/Cho lesterol in HDL [Mass ratio] 3.8 {ratio} Normal [facility] Comment on above: Performed By: #### L IPID #### [facility] [address] [place] [address] Dr. Lucia San HDL NORMAL > or = 60 mg/dl - LOW CARDIOVASCULAR RISK <40 mg/dl - HIGH CARDIOVASCULAR RISK Normal [facility] Comment on above: Performed By: #### L IPID #### [facility] [address] [place] [address] Dr. Lucia San LDL CALC NORMAL SEE BELOW Normal [facility] Comment on above: Result Comment: <100 mg/dl OPTIMAL 100 - 129 mg/dl NEAR OR ABOVE OPTIMAL 130 - 159 mg/dl BORDERLINE HIGH 160 - 189 mg/dl HIGH >190 mg/dl VERY HIGH Performed By: #### L IPID #### [facility] [address] [address] [address] Lucia San Triglyceride [Mass/Vol] 114 mg/dL Normal <=150 [facility] Comment on above: Performed By: #### L IPID #### [facility] [address] [address] [address] Lucia San VLDL CALC 22.8 mg/dL Normal [facility] Comment on above: Performed By: #### L IPID #### [facility] [address] [address] [address] Lucia San MICROALBUMIN, RAND URon 12-15 mALB 1.5 mg/L Normal <=30.0 [facility] Comment on above: Performed By: #### M ALBR #### [facility] [address] [address] [address] Lucia San NM STRESS/REST MULTIon 01-04 NM STRESS/REST MULTI Patient: MARCELLE DEUTSCH Exam Date: 01/04/2023 : 1960 Gender:M Ordering : DR BLANKA GORE M.D. Admission #: [id number] Family : Order #: [id number] CLICK HERE TO VIEW EXAM RADIOLOGY REPORT [...] LOCATION: Basal inferior. Mid-anterior. Mid-inferior. Apical inferior. [place]. SIZE: Large (5 or more segments). SEVERITY: [...] Guzman MD on 01/04/2023 at 11:17 Normal [facility] PROF 14(COMP METB)on 023 Albumin [Mass/Vol] 4.1 g/dL Normal 3.4-5.0 [facility] Comment on above: Performed By: #### C MP #### [facility] [address] [place] [address] Dr. Lucia San Albumin/Globulin [Mass ratio] 1.7 {ratio} Normal [facility] Comment on above: Performed By: #### C MP #### [facility] [address] [place] [address] Dr. Lucia San ALP [Catalytic activity/Vol] 51 U/L Normal 46-116 [facility] Comment on above: Performed By: #### C MP #### [facility] [address] [place] [address] Dr. Lucia San ALT [Catalytic activity/Vol] 49 U/L Normal 16-63 [facility] Comment on above: Performed By: #### C MP #### [facility] [address] [place] [address] Dr. Lucia San Anion gap [Moles/Vol] 16.6 mmol/L Normal [facility] Comment on above: Performed By: #### C MP #### [facility] [address] [address] [address] Lucia San AST [Catalytic activity/Vol] 28 U/L Normal 15-37 [facility] Comment on above: Performed By: #### C MP #### [facility] [address] [place] [address] Dr. Lucia San Bilirubin [Mass/Vol] 1.7 mg/dL Critically high 0.2-1.0 [facility] Comment on above: Performed By: #### C MP #### [facility] [address] [place] [address] Dr. Lucia San Calcium [Mass/Vol] 9.2 mg/dL Normal 8.5-10.1 [facility] Comment on above: Performed By: #### C MP #### [facility] [address] [place] [address] Dr. Lucia San Chloride [Moles/Vol] 100 mmol/L Normal 98-107 [facility] Comment on above: Performed By: #### C MP #### [facility] [address] [place] [address] Dr. Lucia San CO2 [Moles/Vol] 25.9 mmol/L Normal 21.0-32.[address] [facility] Comment on above: Performed By: #### C MP #### [facility] [address] [place] [address] Dr. Lucia San Creatinine [Mass/Vol] 1.03 mg/dL Normal 0.70-1.30 [facility] Comment on above: Performed By: #### C MP #### [facility] [address] [place] [address] Dr. Lucia San EGFR-AF COMORAN >60 Normal >=[address] [facility] Comment on above: Performed By: #### C MP #### [facility] [address] [place] [address] Dr. Lucia San EGFR-NON AF COMORAN >60 Normal >=60 [facility] Comment on above: Performed By: #### C MP #### [facility] [address] [place] [address] Dr. Lucia San Globulin (S) [Mass/Vol] 2.4 g/dL Normal [facility] Comment on above: Performed By: #### C MP #### [facility] [address] [place] [address] Dr. Lucia San Glucose [Mass/Vol] 151 mg/dL Normal [facility] Comment on above: Performed By: #### C MP #### [facility] [address] [place] [address] Dr. Lucia San Performed By: #### A 1C #### [facility] [address] [place] [address] Dr. Lucia San Potassium [Moles/Vol] 4.5 mmol/L Normal 3.5-5.1 [facility] Comment on above: Performed By: #### C MP #### [facility] [address] [place] [address] Dr. Lucia San Protein [Mass/Vol] 6.5 g/dL Normal 6.4-8.2 [facility] Comment on above: Performed By: #### C MP #### [facility] [address] [place] [address] Dr. Lucia San Sodium [Moles/Vol] 138 mmol/L Normal 136-145 [facility] Comment on above: Performed By: #### C MP #### [facility] [address] [place] [address] Dr. Lucia San Urea nitrogen [Mass/Vol] 13.0 mg/dL Normal 7.0-18.0 [facility] Comment on above: Performed By: #### C MP #### [facility] [address] [place] [address] Dr. Lucia San Urea nitrogen/Creatinine [Mass ratio] 12.6 mg/mg Normal [facility] Comment on above: Performed By: #### C MP #### [facility] [address] [place] [address] Dr. Lucia Rondon 02-03-2022 CNOV Office Visit (CARDMN) MARCELLE DEUTSCH ([id number]) 1960 M Date Time Provider Department 02/03/22 8:30 AM JANNET GONZALEZ During your visit today, we recorded the following information about you: Pulse Blood pressure Weight Height 60/minute 180/76 85.3 kg 1.765 m Jannet Gonzalez MD 02/03/2022 9:58 AM Signed [facility] [place] [facility] Department of Cardiovascular Medicine SECTION OF CARDIAC PACING and ELECTROPHYSIOLOGY OUTPATIENT VISIT DATE February 03, 2022 OUTPATIENT VISIT TYPE CONSULTATION PRIMARY CARE PHYSICIAN: Mark Browning DO [address] [place] [address] CHIEF COMPLAINT: PAF HISTORY OF PRESENT ILLNESS [...] he is in SR. He denies syncope. [id number] (HTN, CAD, DM) tolerating Xarelto PAST MEDICAL HISTORY Diagnosis Date - Atrial fibrillation (HCC) 2013 - CAD (coronary artery disease) 09/02/2014 - Diabetes mellitus (HCC) - Dyslipidemia - Hypertension - Metabolic syndrome PAST SURGICAL HISTORY Procedure Laterality Date - AFIB PVI W/COMPL EP STUDY 07/10/2017 - CARDIAC CATH 09/02/2014 BEAD TRIMMER of proximal RCA. 70% ostial D1. Preserved [...] sweating-No, Frequen (more content not included)... Normal [facility] CNCOon 12-04-2021 CNCO Letter Text Normal [facility] Dermatopathologyon 0 Dermatopathology [facility] Dermatopathology Laboratory [address] [place] [id number] DERMATOPATHOLOGY REPORT Name:MARCELLE DEUTSCH Rec #. [id number] Location: [facility] Date of Procedure: 10/02/2020 Race: Unknown Date Received: 10/06/2020 /Sex: 1960 (Age: 60) / M Date Reported: 10/08/2020 Other: Submitting Physician:SONIA GREEN APRN, FLANGING MACHINE OPERATOR-C FINAL DIAGNOSIS A. SKIN, (R) NECK, BIOPSY: SQUAMOUS CELL CARCINOMA IN SITU, EXTENDING TO THE DEEP AND PERIPHERAL MARGINS IN THESE PLANES OF SECTION. B. SKIN, MID BACK, BIOPSY: NEUROFIBROMA, EXTENDING TO THE DEEP MARGIN IN THESE PLANES OF SECTION. Electronically Signed Out by TC MAZA MD. Electronically Signed Out By TC MAZA [...] is a mayers piece of skin measuring 1u8y5cm in aggreg (small). The specimen is inked and embedded in toto. B: Received in formalin is a mayers piece of skin measuring [id number]. The specimen is inked and embedded in toto. /10/06/2020 Microscopic Description: A,B: Microscopic examination performed. Normal [facility] Comment on above: Performed By: #### D #### Dermatopathology Vital Signs Date Time Vital Sign Value Performing Clinician Facility 03-14-2024 10:16-0400 Body temperature 97.52 [degF] [facility] AnuradhaVideoJax [facility] 03-14-2024 10:16-0400 Diastolic blood pressure 85 mm[Hg] [facility] 03-14-2024 10:16-0400 Heart rate 59 /min [facility] Lenddo [facility] 03-14-2024 10:16-0400 Mean blood pressure 116 mm[Hg] [facility] StevieMozenda [facility] 03-14-2024 10:16-0400 Respiratory rate 16 /min [facility] L[facility]do [facility] 03-14-2024 10:16-0400 SaO2% (BldA) [Mass fraction] 99 % [facility] 03-14-2024 10:16-0400 Systolic blood pressure 179 mm[Hg] [facility] L[facility]do [facility] 02-15-2024 13:10-0400 Blood Pressure Location Ana Spencer [facility] 02-15-2024 13:10-0400 Body temperature 98.06 [degF] Ana Spencer [facility] 02-15-2024 13:10-0400 Diastolic blood pressure 61 mm[Hg] Ana Spencer [facility] 02-15-2024 13:10-0400 Heart rate 62 /min Ana Spencer [facility] 02-15-2024 13:10-0400 Mean blood pressure 77 mm[Hg] Ana Spencer [facility] 02-15-2024 13:10-0400 Respiratory rate 16 /min Ana Spencer [facility] 02-15-2024 13:10-0400 SaO2% (BldA) [Mass fraction] 99 % Ana Spencer [facility] 02-15-2024 13:10-0400 Systolic blood pressure 108 mm[Hg] Ana Spencer [facility] 02-08-2024 13:00-0400 Blood Pressure Location Ana Spencer [facility] 02-08-2024 13:00-0400 Body temperature 98.24 [degF] Ana Spencer [facility] 02-08-2024 13:00-0400 Diastolic blood pressure 82 mm[Hg] Ana Spencer [facility] 02-08-2024 13:00-0400 Heart rate 80 /min Ana Spencer [facility] 02-08-2024 13:00-0400 SaO2% (BldA) [Mass fraction] 100 % Ana Spencer [facility] 02-08-2024 13:00-0400 Systolic blood pressure 142 mm[Hg] Ana Spencer [facility] 01-25-2024 08:58-0400 Diastolic blood pressure 82 mm[Hg] Ana Spencer [facility] 01-25-2024 08:58-0400 Heart rate 65 /min Ana Spencer [facility] 01-25-2024 08:58-0400 Mean blood pressure 118 mm[Hg] Ana Spencer [facility] 01-25-2024 08:58-0400 SaO2% (BldA) [Mass fraction] 99 % Ana Spencer [facility] 01-25-2024 08:58-0400 Systolic blood pressure 190 mm[Hg] Ana Spencer [facility] 08-16-2023 08:21-0400 Blood Pressure Location Shelley Lue [facility] 08-16-2023 08:21-0400 Diastolic blood pressure 83 mm[Hg] Shelley Lue [facility] 08-16-2023 08:21-0400 Heart rate 69 /min Shelley Lue [facility] 08-16-2023 08:21-0400 Respiratory rate 16 /min Shelley Lue [facility] 08-16-2023 08:21-0400 Systolic blood pressure 166 mm[Hg] Shelley Lue [facility] Encounters Encounter Date Encounter Type Care Provider Facility Start: 04-11-2024 End: 04-11-2024 ambulatory Ana Spencer [facility] Start: 04-11-2024 End: 04-11-2024 Patient encounter procedure Ana Spencer [facility] Start: 03-26-2024 End: 03-26-2024 ambulatory Ursula Love Facility:[facility] Start: 03-22-2024 End: 04-09-2024 ambulatory MD Ursula Love Facility:[facility] Start: 03-14-2024 End: 03-14-2024 ambulatory Ana Spencer Facility[facility] Start: 03-14-2024 End: 03-14-2024 Patient encounter procedure Ana Spencer [facility] Start: 03-12-2024 End: 03-12-2024 ambulatory Ana Spencer Facility:[facility] Start: 03-12-2024 End: 03-12-2024 Patient encounter procedure Ana Spencer [facility] Start: 02-15-2024 End: 02-15-2024 ambulatory Ana Spencer Facility:[facility] Start: 02-15-2024 End: 02-15-2024 Patient encounter procedure Ana Spencer [facility] Start: 02-08-2024 End: 02-08-2024 ambulatory Ana Spencer Facility:[facility] Start: 02-08-2024 End: 02-08-2024 Patient encounter procedure Ana Spencer [facility] Start: 02-01-2024 End: 02-01-2024 ambulatory Ana Spencer Facility[facility] Start: 02-01-2024 End: 02-01-2024 Patient encounter procedure Ana Spencer [facility] Start: 01-25-2024 End: 02-07-2024 ambulatory [facility] Start: 01-25-2024 End: 01-25-2024 Patient encounter procedure Ana Spencer [facility] Start: 01-16-2024 End: 01-16-2024 ambulatory Bharath Melton Facility:[facility] Start: 01-16-2024 End: 01-16-2024 Patient encounter procedure Bharath Melton [facility] Start: 12-29-2023 End: 12-29-2023 ambulatory [facility] Start: 12-28-2023 End: 12-28-2023 ambulatory Ursula Love Facility:[facility] Start: 12-27-2023 End: 12-27-2023 ambulatory Ursula Love Facility[facility] Start: 12-27-2023 End: 12-27-2023 Patient encounter procedure Ursula Love [facility] Start: 12-19-2023 ambulatory Ursula Love Facility :CD:[id number] Start: 12-18-2023 End: 12-18-2023 Lab Drop off Ursula Love [facility] Start: 12-18-2023 End: 12-18-2023 ambulatory Ursula Love Facility[facility] Start: 12-18-2023 End: 12-18-2023 ambulatory Ursula Love [facility] Start: 10-04-2023 End: 10-04-2023 ambulatory Jose Luis THOMAS [facility] Start: 10-04-2023 End: 10-04-2023 Patient encounter procedure Jose Luis R NILL [facility] Start: 09-20-2023 End: 09-20-2023 ambulatory Jose Luis THOMAS Facility:[id number] Start: 08-29-2023 End: 08-29-2023 ambulatory Ursula Love Facility:[facility] Start: 08-16-2023 End: 08-16-2023 ambulatory Ursula Love Facility:[facility] Start: 08-16-2023 End: 08-16-2023 Patient encounter procedure [facility] Start: 08-08-2023 ambulatory Jose Luis THOMAS Facility:[facility] Start: 08-07-2023 End: 08-07-2023 ambulatory Ursula Love Facility:[facility] Start: 08-07-2023 End: 08-07-2023 Patient encounter procedure Ursula Love [facility] Start: 08-04-2023 End: 08-04-2023 Lab Drop off Karen Richard Juan Antonio [facility] Start: 08-04-2023 End: 08-04-2023 ambulatory Karen L Juan Antonio Facility:[facility] Start: 08-03-2023 ambulatory Jose Luis THOMAS Facility:[facility] Start: 07-19-2023 End: 07-19-2023 ambulatory Karen L Juan Antonio Facility:[facility] [place] Start: 07-04-2023 End: 07-04-2023 ambulatory Ursula Love Facility:[facility] Start: 07-04-2023 End: 07-04-2023 Lab Drop off Ursula Love [facility] Start: 07-03-2023 End: 07-03-2023 Lab Drop off Ursula Love [facility] Start: 07-03-2023 End: 07-03-2023 ambulatory Ursula Love Facility:[facility] Start: 06-21-2023 End: 06-21-2023 ambulatory [facility] Start: 01-04-2023 End: 01-05-2023 ambulatory URSULA LOVE Facility: Start: 04-01-2022 End: 04-01-2022 Off-Site Ursula Love [facility] Start: 03-30-2022 End: 03-30-2022 Off-Site Ursula Love [facility] Start: 02-03-2022 Orders Only Jannet Timmons Work Phone: Cardiology Comment on above: Persistent atrial fi brillation (HCC) (Primary Dx) Procedures Date Procedure Procedure Detail Performing Clinician Start: 09-20-2023 Colonoscopy Jose Luis RIVERA Cardiac ablation sys tem (physical object) Shelley Bruce Cardiac catheterization Hernandez aekatia THOMAS Repair of musculoten dinous cuff of shoulder Jose Luis THOMAS Rupture of tendon of biceps (disorder) Jose Luis NILL Structure of right s houlder region (body structure) Ursula Love Tonsillectomy Jose Luis NILKatia Plan of Treatment Date Care Activity Detail Author Start: 12-17-2024 ambulatory Ambulatory Facility:[facility] Start: 07-04-2020 DIABETES SCREEN DIABETES SCREEN [facility] Start: 2013 PROSTATE CANCER SCREENING DISCUSSION PROSTATE CANCER SCREENING DISCUSSION [facility] Start: 2008 SHINGRIX VACCINE (1 of 2) SHINGRIX VACCINE (1 of 2) [facility] Start: 2003 COLOGUARD (FIT-DNA) COLOGUARD (FIT-D NA) [facility] Start: 2003 Colonoscopy COLONOSCOPY [facility] Start: 2003 COLORECTAL CANCER SCREENING COLORECTAL CANCER SCREENING [facility] Start: [address] COLONOGRAPHY [facility] Start: 2003 FECAL OCCULT BLOOD FECAL OCCULT BLOO D [facility] Start: 2003 SIGMOIDOSCOPY SIGMOIDOSCOPY [facility] Start: 1993 LIPID SCREEN LIPID SCREEN [facility] Start: 1977 Urine microalbumin profile DTAP,TDAP,TD (1 - Tdap) [facility] Start: 1976 ANNUAL PCP TEAM 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 SARAH DISEASE VISIT ANNUAL PCP TEAM CHRONIC DISEASE VISIT [facility] Start: 1976 BP CONTROLLED (<130/80) BP CONTROLLE D (<130/80) [facility] Start: 1976 Hepatitis B surface antibody level LDL CHOLESTEROL [facility] Start: 1976 HEPATITIS C SCREENING HEPATITIS C SC REENING [facility] Start: 1976 HIV SCREENING HIV SCREENING [facility] Start: 1970 Adult depression screening assessment DEPRESSION SCREENING [facility] End: 02-03-2023 ECG COMPLETE ECG COMPLETE ECG Routine Persistent atrial fibrillation (HCC) 1 Occurrences starting 02/03/2022 until 02/03/2023 [facility] Work Phone: Comment on above: 1 Occurrences starti ng 02/03/2022 until 02/03/2023 [facility] Immunization Date Immunization Notes Care Provider Elliot rahman 08-31-2021 SARS-CoV-2 (COVID-19 ) Ad26 vaccine, recombinant Ursula Love [facility] Comment on above: Result Comment: 2021: [id number] 07-23-2021 influenza virus vaccine, unspecified formulation Ursula Love [facility] 12-23-2020 SARS-CoV-2 (COVID-19 ) Ad26 vaccine, recombinant Ursula Love [facility] 07-30-2018 influenza virus vaccine, unspecified formulation Ursula Love [facility] NEGATED: Highlighted row has not occurred!07-03-2023 influenza virus vaccine, unspecified formulation Ursula Love [facility] Payers Date Payer Category Payer Medicare [id number] 2023 Unknown [id number] 2021 Unknown SHELLIE JULIO CÉSAR LAWRENCE PPO [id number] 2021-Present [phone] [id number] [place] [address] PPO [id number] 1959 Unknown [id number] 1960 Unknown [id number] 2.16.840.1.775324.3.579.2.593 1960 Unknown [id number] 2.16.840.1.879587.3.579.2.593 1960 Unknown [id number] 2.16.840.1.561976.3.579.2.727 1960 Unknown [id number] 2.16.840.1.629990.3.579.2.727 1960 Unknown [id number] 2.16.840.1.597046.3.579.2.727 1960 Unknown [id number] 2.16.840.1.869980.3.579.2.727 1960 Unknown [id number] 2.16.840.1.427457.3.579.2.727 1960 Unknown [id number] 2.16.840.1.621391.3.579.2.727 1960 Unknown [id number] 2.16.840.1.831958.3.579.2. 1960 Unknown [id number] 2.16.840.1.308470.3.579.2.72 1960 Unknown [id number] 2.16.840.1.425208.3.579.2. 1960 Unknown [id number] 2.16.840.1.445257.3.579.2. 1960 Unknown [id number] 2.16.840.1.725563.3.579.2. 1960 Unknown [id number] 2.16.840.1.344922.3.579.2. 1960 Unknown [id number] 2.16.840.1.597830.3.579.2. 1960 Unknown [id number] 2.16.840.1.601578.3.579.2. 1960 Unknown [id number] 2.16.840.1.561452.3.579.2. 1960 Unknown [id number] 2.16.840.1.159877.3.579.2. 1960 Unknown [id number] 2.16.840.1.576396.3.579.2. 1960 Unknown [id number] 2.16.840.1.300455.3.579.2. 1960 Unknown [id number] 2.16.840.1.697093.3.579.2. 1960 Unknown [id number] 2.16.840.1.189250.3.579.2. 1960 Unknown [id number] 2.16.840.1.672360.3.579.2.727 1960 Unknown [id number] 2.16.840.1.017649.3.579.2.727 1960 Unknown [id number] 2.16.840.1.316591.3.579.2.727 1960 Unknown [id number] 2.16.840.1.294939.3.579.2.727 1958 Unknown [id number] 2.16.840.1.551945.3.579.2.727 1960 Unknown [id number] 2.16.840.1.733404.3.579.2.727 1960 Unknown [id number] 2.16.840.1.068617.3.579.2.727 1960 Unknown [id number] 2.16.840.1.512491.3.579.2.727 Social History Date Type Detail Facility Start: 08-25-2014 End: 03-26-2024 Tobacco smoking status NHIS Ex-smoker [facility] Comment on above: Quit in 2013 after M I quit age 53 (39 pack years) Start: 10-25-1955 End: 08-09-2014 History of tobacco use Current smoker [facility] Start: 10-25-1955 End: 08-09-2014 History of tobacco use Cigarette Smoker [facility] Start: 08-25-2014 End: 02-03-2022 Cigarettes smoked current (pack per day) - Reported 0.5 [facility] Start: 08-25-2014 Tobacco use and exposure Smokeless tobacco non-user [facility] Start: 02-03-2022 Alcohol intake Current drinke r of alcohol (finding) [facility] Start: 1960 Sex Assigned At Not on file [facility] Start: 01-24-2022 End: 02-03-2022 Exposure to SARS-CoV-2 (event) Not sure [facility] Tobacco smoking status No Smokin g Status Entered [facility] Sex Assigned At Male [facility] Start: 04-01-2022 Tobacco smoking status Never s moked tobacco (finding) [facility] Tobacco smoking status [facility] Comment on above: Quit in 2013 after M I quit age 53 (39 pack years) Goals Date Patient Goal Desired Activity /State 12-28-2023 Functional Status Date Assessment Result Facility 08-16-2023 Functional Status N/A [facility] 04-01-2022 Functional Status [facility] Clinical Notes 02-03-2022 to 01-25-2024 RadiologyRadiologyRadiologyRadiologyRadiologyRadiologyLaboratoryRadiologyLaborat oryRadiologyLaboratoryRadiologyLaboratoryRadiologyRadiologyLaboratoryRadiologyLa boratoryRadiology Note Date & Type Note Facility 01-25-2024 Hospital Discharge instructions Follow Up Care 01/25/2024 12:17:38 With:Tj BURTON, Ana Rivas, ONC Address: [facility] [address] [place] [phone] When: Unknown Comments:cbc, cmp, iron studies in 3mo and 6mofollow-up in 6mo with FLANGING MACHINE OPERATOR [facility] 12-29-2023 Note LDL > 70 therefore c ontinue lipitor 80 mg and will add zetia 10 mg daily Repeat lipid level before next appt in about 3-6 months [facility] 12-29-2023 Note Hypertension is typi jimmie stable with review of his home b/p log. Definitely has white coat syndrome Continue norvasc, clonidine, lisinopril and toprol [facility] 12-29-2023 Note Coronary artery dise ase is stable Continue GDMT- ASA, lipitor, imdur, toprol, and ranexa continue risk factor modifications- heart healthy diet, regular exercise as tolerated and continue all medications. [facility] 12-29-2023 Note Rate stable with top rol Anticoagulation with eliquis and denied any bleeding tendencies. [facility] 12-29-2023 Note Order ABD Aorta US i n 6 months to re-evalulate infrarenal AAA. [facility] 12-29-2023 Hospital Discharge instructions [facility] 12/29/2023 11:16:26 With:Tj NATHAN-PEMA, Ana Rivas, ONC Address: [facility] [address] [place] [address] [place] [address]- [phone] When: Unknown Comments:IV Injectafer x2B12 injections weekly x4, then monthlycbc, cmp, iron studies in 8wksfollow-up in 8wks with FLANGING MACHINE OPERATOR [facility] 12-29-2023 Note Patient here for 6 m [...] All other systems reviewed and are negative. [facility] 12-29-2023 Note [facility]TP CARDIOLOGY PROGR ESS NOTE HPI: Marcelle Deutsch is a 63 y.o. male here [...] of an abnormal stress test that showed BEAD TRIMMER of the RCA with filling via left to right collaterals. He also had a 70% stenosis in a diagonal branch (the prior report mentions that it is not amenable to intervention). At that time left-ventricular gram showed normal left ventricular ejection fraction at 60%. 2. Paroxysmal atrial fibrillation, status post ablation in 2017 at the [facility]. He also had prior cardioversion. He is [...] episodes of atrial fibrillation. He has a [employer] machine that he uses to transmit ECG. [...] 2 seconds. Neurol (more content not included)... [facility] 12-29-2023 Note HTN management with goal b/p < 130/80 Monitor b/p at home Routine monitoring- will repeat Echocardiogram in 6 months with f/u with Dr Gore. D/W pt that he is to call 911 for sharp, tearing chest pain or back pain, call office for b/p consistently > 130/80 and he voiced understanding [facility] 08-29-2023 Note Chief Complaint consultation for [...] 28.0-28.9,adult BPH (benign prostatic hyperplasia) CAD in [place] artery Controlled type 2 diabetes mellitus without [...] mg= 2 tab(s (more content not included)... [facility] Comment on above: Result Comment: Elec tronically [...] include: ?8 oz (237 mL) of milk, yspdrkc-pceohjpppxme-uwrye milk, and calcium-fortifiedfruit juice. Calcium-fortified means that [...] ?Spinach (cooked), rhubarb, beets, sweet potatoes, and Ivorian chard. ?Peanuts. ?Potato chips, wallisian fries, and baked potatoes with skin on. ?Nuts and nut products. ?Chocolate. If you regularly take a diuretic medicine, make sure to eat at least 1 or 2 servings of fruits or vegetables that are high in potassium each day. These include: ?Avocado. ?Banana. ?[place], prune, carrot, or tomato juice. ?Baked potato. [...] magnesium, fish oil, or vitamin B6. Take uusj-bmc-trhqmpe and prescription medicines only as told by [...] Casseroles. Pizza. Lasagna. Frozen meals. Potato chips. Bahraini fries. The items listed above may not [...] provider. Document Revised: 06/13/2022 Document Reviewed: 06/13/2022 Streamline Patient Education 2022 [employer]. [facility] Up Care 08/08/2023 13:37:21 With:Teo NIELSON, Shelley Sidhu, SHERRY, URO Address: When: Unknown Comments:PRN [facility] 06-21-2023 Note [place] [facility] Subjective Marcelle Deutshc is a 63 y.o. year old male [...] of an abnormal stress test that showed BEAD TRIMMER of the RCA with filling via left to right collaterals. He also had a 70% stenosis in a diagonal branch (the prior report mentions that it is not amenable to intervention). At that time left-ventricular gram showed normal left ventricular ejection fraction at 60%. 2. Paroxysmal atrial fibrillation, status post ablation in 2017 at the [facility]. He also had prior cardioversion. He is [...] episodes of atrial fibrillation. He has a [employer] machine that he uses to transmit ECG. [...] mg) by mouth (more content not included)... [facility] 01-04-2023 Note CARDIAC STRESS TEST Requesting [...] and reported myocardial perfusion scan findings. [facility] 04-01-2022 Hospital Discharge instructions Patient Education 04/01/2022 [...] quitting, ask your health care provider. Take pgij-zyr-gjgdtkw and prescription medicines only as told by [...] 10/07/2014 Document Revised: 05/27/2019 Document Reviewed: 05/03/2019 Streamline Patient Education 2020 [employer]. 04/01/2022 13:38:40 Hyperglycemia Hyperglycemia Hyperglycemia occurs when [...] or polycystic ovarian syndrome (PCOS). Being of Algerian-, -Algerian, /, or / descent. What are the [...] these instructions at home: General instructions Take ijya-bjm-bfjvhve and prescription medicines only as told by [...] 03/28/2002 Document Revised: 06/19/2017 Document Reviewed: 06/19/2017 Streamline Patient Education 2020 [employer]. 04/01/2022 13:38:33 Atrial Fibrillation Atrial Fibrillation Atrial [...] may be diagnosed with: Electrocardiogram (ECG). Ambulatory quality assurance monitor chassis. This device records your heartbeats for 24 [...] 10/02/2006 Document Revised: 11/22/2018 Document Reviewed: 11/23/2018 Streamline Patient Education 2020 [employer] 04/01/2022 13:38:29 Pinched Nerve Pinched Nerve A [...] work. Follow these instructions at home: Take hsuh-xfe-svrwslv and prescription medicines only as told by [...] leg, or the back or neck. Take fbsb-qht-jiwupgv and prescription medicines only as told by [...] 09/22/2003 Document Revised: 10/19/2018 Document Reviewed: 10/16/2018 Streamline Patient Education [employer]. [facility] [place] 02-03-2022 Note HNO ID: [id number] Author: Jannet Gonzalez MD Service: ? Author Type: Physician Type: Progress Notes Filed: 02/03/2022 9:58 AM Note Text: [facility] [place] Emiliano Plascencia Department of Cardiovascular Medicine SECTION OF CARDIAC PACING and ELECTROPHYSIOLOGY OUTPATIENT VISIT DATE February 03, 2022 OUTPATIENT VISIT TYPE CONSULTATION PRIMARY CARE PHYSICIAN: Mark Browning DO [address] [place] [address] CHIEF COMPLAINT: PAF HISTORY OF PRESENT ILLNESS [...] he is in SR. He denies syncope. [id number] (HTN, CAD, DM) tolerating Xarelto PAST MEDICAL HISTORY Diagnosis Date - Atrial fibrillation (HCC) 2013 - CAD (coronary artery disease) 09/02/2014 - Diabetes mellitus (HCC) - Dyslipidemia - Hypertension - Metabolic syndrome PAST SURGICAL HISTORY Procedure Laterality Date - AFIB PVI W/COMPL EP STUDY 07/10/2017 - CARDIAC CATH 09/02/2014 BEAD TRIMMER of proximal RCA. 70% ostial D1. Preserved [...] patient General: L (more content not included)... [facility] Evaluation + Plan note No data available for this section [facility] Future Appointments Appointment Date:01/03/2024 08:00:00 AM Scheduled Provider: Location:[facility] Appointment Type:FM Medicare Wellness Welcome Appointment Date:01/03/2024 08:40:00 AM Scheduled Provider:Ursula Love MD Location:[facility] Appointment Type:FM Open Diagnostic Tests PendingPSA Free & Total 07/03/23Microalbumin Level Urine 07/03/23U Protein/Creat Ratio 07/03/23 [facility] Evaluation + Plan note Future Appointments Appointment Date:01/03/2024 08:00:00 AM Scheduled Provider: Location:[facility] Appointment Type:FM Medicare Wellness Welcome Appointment Date:01/03/2024 08:40:00 AM Scheduled Provider:Ursula Love MD Location:[facility] Appointment Type:[facility] Evaluation + Plan note Future Appointments Appointment Date:08/29/2023 02:20:00 PM Scheduled Provider:Jose Luis THOMAS MD [facility] Appointment Type: New 30 Appointment Date:01/03/2024 08:00:00 AM Scheduled Provider: Location:[facility] Appointment Type:FM Medicare Wellness Welcome Appointment Date:01/03/2024 08:40:00 AM Scheduled Provider:Ursula Love MD Location:[facility] Appointment Type:FM Open Diagnostic Tests PendingUrine Culture 08/04/23 Future Scheduled TestsCT Abdomen/Pelvis w/o Contrast 08/02/23 [facility] Evaluation + Plan note Future Appointments Appointment Date:08/29/2023 02:20:00 PM Scheduled Provider:Jose Luis THOMAS MD Location[facility] Appointment Type: New 30 Appointment Date:01/03/2024 08:00:00 AM Scheduled Provider: [facility] Date:01/03/2024 08:40:00 AM Scheduled Provider:Ursula Love MD [facility] Type:[facility] Evaluation + Plan note Future Appointments Appointment Date:08/29/2023 02:20:00 PM Scheduled Provider:Jose Luis THOMAS MD Location:[facility] Appointment Type: Appointment Date:01/03/2024 08:00:00 AM Scheduled Provider: Location:[facility] Appointment Type: Medicare Wellness Welcome Appointment Date:01/03/2024 08:40:00 AM Scheduled Provider:Ursula Love MD Location:[facility] Appointment Type: Open Future Scheduled TestsUS Aorta 08/08/24 [facility] Evaluation + Plan note Future Appointments Appointment Date:01/03/2024 08:00:00 AM Scheduled Provider: Location:[facility] Appointment Type:FM Medicare Wellness Welcome Appointment Date:01/03/2024 08:40:00 AM Scheduled Provider:Ursula Love MD Location:[facility] Appointment Type: Open Future Scheduled TestsUS Aorta 08/08/24 [facility] [place] Evaluation + Plan note Future Appointments Appointment Date:12/17/2024 08:00:00 AM Scheduled Provider: Location:[facility] Appointment Type:FM Medicare Wellness Subsequent Diagnostic Tests PendingHCV Antibody RFX to Quant PCR 12/18/23 Future Scheduled TestsCT Chest, Low Dose Screening 12/18/23US Aorta 08/08/24 [facility] Evaluation + Plan note Future Appointments Appointment Date:03/25/2024 10:45:00 AM Scheduled Provider:Ursula Love MD Location:[facility] Appointment Type: Open Appointment Date:12/17/2024 08:00:00 AM Scheduled Provider: Location:[facility] Appointment Type: Medicare Wellness Subsequent Future Scheduled TestsUS Aorta 08/08/24 [facility] Evaluation + Plan note Future Appointments Appointment Date:01/25/2024 09:00:00 AM Scheduled Provider:Ana uKmar [facility] Type:ONC Office Visit [facility] ([place]) Appointment Date:03/25/2024 10:45:00 AM Scheduled Provider:Ursula Love MD Location:[facility] Appointment Type: Open Appointment Date:12/17/2024 08:00:00 AM Scheduled Provider: Location:[facility] Appointment Type: Medicare Wellness Subsequent Diagnostic Tests PendingImmunofixation Serum 01/16/24Free K+L Lt Chains,Qn,S 01/16/24Protein Electrophoresis 01/16/24 Future Scheduled TestsUS Aorta 08/08/24 [facility] Evaluation + Plan note Future Appointments Appointment Date:02/01/2024 02:30:00 PM Scheduled Provider: Location[facility] Appointment Type:ONC Injection (FT) Appointment Date:02/08/2024 02:30:00 PM Scheduled Provider: Location[facility] Appointment Type:ONC Injection (FT) Appointment Date:02/15/2024 02:00:00 PM Scheduled Provider: Location[facility] Appointment Type:ONC Injection (FT) Appointment Date:03/14/2024 10:15:00 AM Scheduled Provider:Ana Kumar [facility] App[facility] Type:ONC Office Visit 30 (FT) Appointment Date:03/14/2024 10:45:00 AM Scheduled Provider: [facility] App[facility] Type:ONC Injection (FT) Appointment Date:03/25/2024 10:45:00 AM Scheduled Provider:Ursula Love MD Location:[facility] Appointment Type: Open Appointment Date:12/17/2024 08:00:00 AM Scheduled Provider: Location:[facility] Appointment Type:FM Medicare Wellness Subsequent Future Scheduled TestsCBC w/ Auto Diff 03/21/24Comprehensive Metabolic Panel 03/21/24Ferritin 03/21/24Iron Level 03/21/24Iron Percent Saturation 03/21/24Transferrin 03/21/24US Aorta 08/08/24 [facility] Evaluation + Plan note Future [...] Date:03/25/2024 10:45:00 AM Scheduled Provider:Ursula Love MD Location:[facility] Appointment Type:FM Open Appointment Date:04/11/2024 02:00:00 PM [...] (FT) Appointment Date:12/17/2024 08:00:00 AM Scheduled Provider: Location:[facility] Appointment Type: Medicare Wellness Subsequent Appointment Date:12/19/2024 [...] 03/21/24Iron Percent Saturation 03/21/24Transferrin 03/21/24US Aorta 08/08/24 [facility] Evaluation + Plan note Future Appointments Appointment Date:02/15/2024 01:00:00 PM Scheduled Provider: Location:.[facility] Appointment Type:ONC Injectafer (FT) Appointment Date:02/15/2024 02:00:00 PM Scheduled Provider: Location:.[facility] Appointment Type:ONC Injection (FT) Appointment Date:03/14/2024 10:15:00 AM Scheduled Provider:Ana Kumar Location:.[facility] Appointment Type:ONC Office Visit 30 (FT) Appointment Date:03/14/2024 10:45:00 AM Scheduled Provider: Location:.[facility] Appointment Type:ONC Injection (FT) Appointment Date:03/25/2024 10:45:00 AM Scheduled Provider:Ursula Love MD [facility] Appointment Type:FM Open Appointment Date:04/11/2024 02:00:00 PM [...] (FT) Appointment Date:12/17/2024 08:00:00 AM Scheduled Provider: Location:[facility] Appointment Type: Medicare Wellness Subsequent Appointment Date:12/19/2024 [...] 03/21/24Iron Percent Saturation 03/21/24Transferrin 03/21/24US Aorta 08/08/24 [facility] Evaluation + Plan note Future Appointments Appointment Date:03/14/2024 10:15:00 AM Scheduled Provider:Ana Kumar Location:.[facility] Appointment Type:ONC Office Visit 30 (FT) Appointment Date:03/14/2024 10:45:00 AM Scheduled Provider: Location:.[facility] Appointment Type:ONC Injection (FT) Appointment Date:03/25/2024 10:45:00 AM Scheduled Provider:Ursula Love MD Location:[facility] Appointment Type:FM Open Appointment Date:04/11/2024 02:00:00 PM [...] (FT) Appointment Date:12/17/2024 08:00:00 AM Scheduled Provider: Location:[facility] Appointment Type: Medicare Wellness Subsequent Appointment Date:12/19/2024 [...] 03/11/24Iron Percent Saturation 03/11/24Transferrin 03/11/24US Aorta 08/08/24 [facility] Evaluation + Plan note Future Appointments Appointment Date:03/14/2024 10:15:00 AM Scheduled Provider:Tj BURTON Ana Evelyn Location:.[facility] Appointment Type:ONC Office Visit 30 (FT) Appointment Date:03/14/2024 10:45:00 AM Scheduled Provider: Location:.[facility] Appointment Type:ONC Injection (FT) Appointment Date:03/26/2024 10:45:00 AM Scheduled Provider:Ursula Love MD Location:[facility] Appointment Type:FM Open Appointment Date:04/11/2024 02:00:00 PM [...] (FT) Appointment Date:12/17/2024 08:00:00 AM Scheduled Provider: Location:[facility] Appointment Type: Medicare Wellness Subsequent Appointment Date:12/19/2024 02:15:00 PM Scheduled Provider: Location:.[facility] Appointment Type:ONC Injection (FT) Appointment Date:01/16/2025 02:05:00 PM Scheduled Provider: Location:.[facility] Appointment Type:ONC Injection (FT) Appointment Date:02/13/2025 02:15:00 PM Scheduled Provider: Location:.[facility] Appointment Type:ONC Injection (FT) Appointment Date:03/13/2025 02:15:00 PM Scheduled Provider: Location:[facility] Appointment Type:ONC Injection (FT) Future Scheduled TestsUS Aorta 08/08/24 [facility] Evaluation + Plan note Future Appointments Appointment Date:03/26/2024 10:45:00 AM Scheduled Provider:Ursula Love MD Location:[facility] Appointment Type:FM Open Appointment Date:04/11/2024 02:00:00 PM [...] (FT) Appointment Date:12/17/2024 08:00:00 AM Scheduled Provider: Location:[facility] Appointment Type: Medicare Wellness Subsequent Appointment Date:12/19/2024 [...] Percent Saturation 09/07/24Transferrin 06/07/24Transferrin 09/07/24US Aorta 08/08/24 [facility] Evaluation + Plan note Future Appointments Appointment Date:05/09/2024 02:00:00 PM Scheduled Provider: Location:.[facility] Appointment Type:ONC Injection (FT) Appointment Date:06/06/2024 02:00:00 PM Scheduled Provider: Location:.[facility] Appointment Type:ONC Injection (FT) Appointment Date:07/04/2024 02:00:00 PM Scheduled Provider: Location:.[facility] Appointment Type:ONC Injection (FT) Appointment Date:08/01/2024 02:00:00 PM Scheduled Provider: Location:.[facility] Appointment Type:ONC Injection (FT) Appointment Date:08/29/2024 02:00:00 PM Scheduled Provider: Location:.[facility] Appointment Type:ONC Injection (FT) Appointment Date:09/09/2024 11:00:00 AM Scheduled Provider:Ana Kumar Location:.[facility] Appointment Type:ONC Office Visit 30 (FT) Appointment Date:09/26/2024 02:00:00 PM Scheduled Provider: Location:.[facility] Appointment Type:ONC Injection (FT) Appointment Date:10/24/2024 02:15:00 PM Scheduled Provider: Location:.[facility] Appointment Type:ONC Injection (FT) Appointment Date:11/21/2024 02:15:00 PM Scheduled Provider: Location:.[facility] Appointment Type:ONC Injection (FT) Appointment Date:12/17/2024 08:00:00 AM Scheduled Provider: Location:[facility]i Appointment Type: Medicare Wellness Subsequent [...] Percent Saturation 09/07/24Transferrin 06/07/24Transferrin 09/07/24US Aorta 08/08/24 [facility] Evaluation note Diagnosis Persistent atrial fibrillation (HCC)- Primary Atrial fibrillation documented in this encounter [facility] Discharge instructions No data available for this section [facility] Progress note No data available for this section [facility] Reason for referral (narrative)* Outpatient Procedure (Routine) - Authorized Specialty Diagnoses / Procedures Referred By Contac t [facility] Diagnoses Persistent atrial fibrillation (HCC) Procedures ECG COMPLETE ECG ROUTINE ECG W/LEAST 12 LDS W/I&R Jannet Gonzalez MD [address] [place] [address] [facility] [address] [address] Referral ID Status Reason Start Date Expiration Date Visits Requested Visits Authorized [id number] Authorized Auto-Generat ed Referral 02/03/2022 02/03/2023 1 1 [facility] Summary Purpose Family History No Family History [...] FoundDocuments on File Type Date Recorded 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 Advance Directive(s) 07/10/2017 5:38 AM [...] section and content) DATE CREATED AUTHOR 10/08/2020 [facility] DATE CREATED AUTHOR AUTHOR'S ORGANIZ ATION 02/05/2022 [facility] DATE CREATED AUTHOR AUTHOR'S ORGANIZ ATION 01/17/2023 [facility] DATE CREATED AUTHOR AUTHOR'S ORGANIZ ATION 01/12/2024 [facility] DATE CREATED AUTHOR AUTHOR'S ORGANIZ ATION 03/12/2024 [facility] DATE CREATED AUTHOR AUTHOR'S ORGANIZ ATION 03/13/2024 [facility] DATE CREATED AUTHOR AUTHOR'S ORGANIZ ATION 04/10/2024 [facility] DATE CREATED AUTHOR AUTHOR'S ORGANIZ ATION 04/13/2024 [facility] Source Comments (unrecognize d section and content) In the event this informatio n is protected by the Federal Confidentiality of Alcohol and Drug Abuse Patient Records regulations: The Federal rules restrict any use of the information to criminally investigate or prosecute any alcohol or drug abuse patient.[facility] Care Teams (unrecognized sec tion and content) Engraver Letter Relationship Specialty Start Date End Date Mark Browning PCP - General Family Practice 08/11/14 Jannet Gonzalez MD [address] [place] [address] Primary Staff Physician Cardiology 02/03/22 FOR RECORDS [...] BE BASED ON THE PRIMARY CLINICAL RECORDS. [employer] provides no warranty or guarantee of the accuracy or completeness of information in this document.
--- NOTE | 2024-04-16 07:51 | FL_ITS ---
[address] [address] Patient Name: MARCELLE DEUTSCH MRN: [id number] date: 1960 Sex: M Assigned Patient Location: [place] Current Patient Location: [place] Accession/Order Number: [id number] Exam Date: 04/16/2024 08:15 Report Date: 04/16/2024 10:22 At the request of: STEPHAN LORENZO Procedure: FL guided needle placement EXAMINATION: FL hip inj RT, FL guided needle placement HISTORY: Bilateral Hip Pain COMPARISON: XR hips bilateral 04/08/2024 TECHNIQUE: An arthrogram was performed under fluoroscopic guidance using non-ionic contrast material in the usual sterile manner after obtaining informed consent. Standard level fluoroscopic mode of operation utilized. FINDINGS: JOINT: Right hip NEEDLE: 25 gauge, 3.5 spinal needle. MEDICATION: 2 mL buffered 1% lidocaine for subcutaneous anesthesia. 2 mL Omnipaque-300 iodinated contrast to visualize the joint space. 80 mg Depo-Medrol, 2 mL 0.25% Marcaine, and 3 mL Omnipaque 300 injected into the joint space. TECHNIQUE: Anterior approach with prior localization of the femoral artery. A single stick was successful in gaining access to the joint space. CLINICAL: Improvement of joint pain post injection (2/10 preinjection; 0/10 post injection). COMPLICATIONS: None. OTHER: Negative. FL/FL guided needle placement IMPRESSION: 1. Successful right hip injection. Electronically authenticated by: JEN FINCH Date: 04/16/2024 10:22
--- NOTE | 2024-04-16 07:51 | FL_ITS ---
The [address] [address] Patient Name: MARCELLE DEUTSCH MRN: [id number] date: 1960 Sex: M Assigned Patient Location: [place] Current Patient Location: [place] Accession/Order Number: [id number] Exam Date: 04/16/2024 08:15 Report Date: 04/16/2024 10:22 At the request of: STEPHAN LORENZO Procedure: FL hip inj RT EXAMINATION: FL hip inj RT, FL guided needle placement HISTORY: Bilateral Hip Pain COMPARISON: XR hips bilateral 04/08/2024 TECHNIQUE: An arthrogram was performed under fluoroscopic guidance using non-ionic contrast material in the usual sterile manner after obtaining informed consent. Standard level fluoroscopic mode of operation utilized. FINDINGS: JOINT: Right hip NEEDLE: 25 gauge, 3.5 spinal needle. MEDICATION: 2 mL buffered 1% lidocaine for subcutaneous anesthesia. 2 mL Omnipaque-300 iodinated contrast to visualize the joint space. 80 mg Depo-Medrol, 2 mL 0.25% Marcaine, and 3 mL Omnipaque 300 injected into the joint space. TECHNIQUE: Anterior approach with prior localization of the femoral artery. A single stick was successful in gaining access to the joint space. CLINICAL: Improvement of joint pain post injection (2/10 preinjection; 0/10 post injection). COMPLICATIONS: None. OTHER: Negative. FL/FL hip inj RT IMPRESSION: 1. Successful right hip injection. Electronically authenticated by: JEN FINCH Date: 04/16/2024 10:22
[2024-04-16] MEDS: BUPIVACAINE HCL 0.25% PF 25 MG/10 ML VIAL 2 ML INJ (08:40)
[2024-04-16] MEDS: LIDOCAINE HCL 10 ML, SODIUM BICARBONATE 1 MEQ INJ (08:40)
[2024-04-16] MEDS: METHYLPREDNISOLONE 80 EACH IJ (08:40)
--- NOTE | 2024-04-16 13:01 | SUR.PREOP ---
04/12/24 Pt instructed on procedure, date, time, and prep. Pt made aware to hold ASA for 4 days and Eliquis 2 days prior to procedure.
[2024-04-17] MEDS: METHYLPREDNISOLONE ACETATE 80 MG/ML VIAL IM (08:40)
== END 2024-04-16 09:05 | disposition home or self-care (01) ==
LOC: FL 07:41
PROVIDERS: Radiology Diagnostic Radiology; PCP Family Medicine; Visit Provider Student in an Organized Health Care Education/Training Program
DX: M25.551 Pain in right hip (principal); M25.552 Pain in left hip; M16.0 Bilateral primary osteoarthritis of hip
CPT/HCPCS: 20610; 77002; J0665; Q9967

== ENCOUNTER 2024-04-17 09:44 | Day surgery (SDC) | payer MEDICARE, SELFPAY ==
--- NOTE | 2024-04-17 09:50 | FL_ITS ---
The [address] [address] Patient Name: MARCELLE DEUTSCH MRN: [id number] date: 1960 Sex: M Assigned Patient Location: [place] Current Patient Location: Accession/Order Number: [id number] Exam Date: 04/17/2024 10:00 Report Date: 04/17/2024 13:28 At the request of: STEPHAN LORENZO Procedure: FL guided needle placement EXAMINATION: FL hip inj LT, FL guided needle placement HISTORY: Left Hip Pain COMPARISON: No relevant comparison available. TECHNIQUE: An arthrogram was performed under fluoroscopic guidance using non-ionic contrast material in the usual sterile manner after obtaining informed consent. Standard level fluoroscopic mode of operation utilized. FINDINGS: JOINT: Left hip NEEDLE: 25 gauge, 3.5 spinal needle. MEDICATION: 2 mL buffered 1% lidocaine for subcutaneous anesthesia. 2 mL Omnipaque-300 iodinated contrast to visualize the joint space. 80 mg Depo-Medrol, 2 mL 0.25% Marcaine, and 3 mL Omnipaque 300 injected into the joint space. TECHNIQUE: Anterior approach with prior localization of the femoral artery. A single stick was successful in gaining access to the joint space. CLINICAL: Improvement of joint pain post injection (2/10 preinjection; 0/10 post injection). COMPLICATIONS: None. OTHER: Negative. FL/FL guided needle placement IMPRESSION: 1. Successful left hip injection with decrease in pain immediately following injection. Electronically authenticated by: JEN FINCH Date: 04/17/2024 13:28
--- NOTE | 2024-04-17 09:50 | FL_ITS ---
The [address] [address] Patient Name: MARCELLE DEUTSCH MRN: [id number] date: 1960 Sex: M Assigned Patient Location: [place] Current Patient Location: Accession/Order Number: [id number] Exam Date: 04/17/2024 10:00 Report Date: 04/17/2024 13:28 At the request of: STEPHAN LORENZO Procedure: FL hip inj LT EXAMINATION: FL hip inj LT, FL guided needle placement HISTORY: Left Hip Pain COMPARISON: No relevant comparison available. TECHNIQUE: An arthrogram was performed under fluoroscopic guidance using non-ionic contrast material in the usual sterile manner after obtaining informed consent. Standard level fluoroscopic mode of operation utilized. FINDINGS: JOINT: Left hip NEEDLE: 25 gauge, 3.5 spinal needle. MEDICATION: 2 mL buffered 1% lidocaine for subcutaneous anesthesia. 2 mL Omnipaque-300 iodinated contrast to visualize the joint space. 80 mg Depo-Medrol, 2 mL 0.25% Marcaine, and 3 mL Omnipaque 300 injected into the joint space. TECHNIQUE: Anterior approach with prior localization of the femoral artery. A single stick was successful in gaining access to the joint space. CLINICAL: Improvement of joint pain post injection (2/10 preinjection; 0/10 post injection). COMPLICATIONS: None. OTHER: Negative. FL/FL hip inj LT IMPRESSION: 1. Successful left hip injection with decrease in pain immediately following injection. Electronically authenticated by: JEN FINCH Date: 04/17/2024 13:28
--- OUTSIDE RECORDS SUMMARY | 2024-04-17 10:05 | XMS_ITS | CCD ---
Author Organization [facility] CliniSyme Care Team Providers Care Matcher Offbearer Name Role Phone Mark Browning Primary Care Provider [phone] Jannet Gonzalez MD Ursula Love Primary Care Physician [phone] URSULA LOVE Admitting Unavailable URSULA LOVE Attending Unavailable URSULA LOVE Primary Care Unavailable URSULA LOVE Consulting Unavailable BAO, DR MOSCOSO Admitting Unavailable BOA, DR MOSCOSO Attending Unavailable URSULA LOVE Primary Care Unavailable CHARDON, DR JANNET Parry Consulting Unavailable BAO, DR MOSCOSO Consulting Unavailable URSULA LOVE Consulting Unavailable Ursula Love Primary Care Physician PARISA HERRON Attending Unavailable [...] Referring Unavailable Shelley Bruce Attending Unavailable Bharath Melton Attending Unavailable Bharath Melton Admitting Unavailable Ursula [...] (1 source) Penicillins; 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: [penicillins] Drug Allergy [facility] Repository (20 sources) Penicillins; 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: [penicillins] Propensity to adverse reactions to drug 4 Hives, Wejhonatan (disorder) [facility] (1 source) Penicillins Drug allergy (disorder) 4 [facility] Repository (2 sources) No Known Medication Allergies; 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: [No Known Medication Allergies] Propensity to adverse reactions (disorder) [facility] Repository Medications Current Medications Medication Drug [...] day(s), # 90 tab(s), Refills(s) 0, Pharmacy: [facility]/pharmacy #[id number] Start Date: 04/01/22 Stop Date: 05/01/22 [...] DAILY, # 90 tab(s), Refills(s) 1, Pharmacy: [facility]/pharmacy #[id number], 179, cm, 03/26/24 10:53:00 EDT, Height/Length Dosing, 86, kg, 03/26/24 10:53:00 EDT, Weight Dosing Start Date: 03/26/24 Status: Ordered Start: 07-06-2023 lisinopril 20 mg Tab See Instructions, TAKE 1 TABLET DAILY, # 90 tab(s), Refills(s) 1, Pharmacy: [facility], 178, cm, 12/18/23 13:19:00 EST, Height/Length Dosing, 89.1, kg, 12/18/23 13:19:00 EST, Weight Dosing Start Date: 12/19/23 Status: Ordered Start: 04-25-2023 take 1 tablet by sendy th once daily lisinopril 20 mg Tab 20 mg = 1 tab(s), Oral, Daily, # 90 tab(s), Refills(s) 1, Pharmacy: [facility], 178, cm, 12/19/22 9:57:00 EST, Height/Length [...] Daily, # 30 tab(s), Refills(s) 0, Pharmacy: [facility]/pharmacy #[id number] Start Date: 04/01/22 Status: Ordered metFORMIN hydrochloride 500 mg oral tablet (18 sources) Biguanide Start: 07-06-20 metformin 500 mg Tab See Instructions, TAKE 2 TABLETS TWICE A DAY, # 360 tab(s), Refills(s) 1, Pharmacy: [facility], 178, cm, 12/18/23 13:19:00 EST, Height/Length Dosing, 89.1, kg, 12/18/23 13:19:00 EST, Weight Dosing Start Date: 12/19/23 Status: Ordered Start: 04-25-2023 take 2 tablets by mo ut twice daily metformin 500 mg Tab 1,000 mg = 2 tab(s), Oral, BID, TAKE TWO TABLETS BY MOUTH TWICE A DAY, # 360 tab(s), Refills(s) 1, Pharmacy: [facility], 178, cm, 12/19/22 9:57:00 EST, Height/Length Dosing, 90.4, kg, 12/19/22 9:57:00 EST, Weight Dosing Start Date: 04/25/23 Status: Ordered Start: 04-01-2022 End: 09-28-2022 take 2 tablets by mouth twice daily metformin 500 mg ER Tab 1,000 mg = 2 tab(s), Oral, BID, X 90 day(s), # 360 tab(s), Refills(s) 1, Pharmacy: [facility] Start Date: 04/01/22 Stop Date: 09/28/22 Status: Ordered take 2 tablets by [facility] twice daily metFORMIN (GLUCOPHAGE) 500 mg tablet [...] Daily, # 90 cap(s), Refills(s) 1, Pharmacy: [facility], 178, cm, 08/29/23 14:28:00 EST, Height/Length Dosing, 90.8, kg, 08/29/23 14:28:00 EST, Weight Dosing Start Date: 11/20/23 Status: Ordered Start: 07-03-2023 take 1 capsule by mo [facility] once daily omeprazole 20 mg Cap-DR 20 mg = 1 cap(s), Oral, Daily, # 90 cap(s), Refills(s) 1, Pharmacy: [facility], 178, cm, 07/03/23 7:24:00 EDT, Height/Length Dosing, 90, kg, 07/03/23 7:24:00 EDT, Weight Dosing Start Date: 07/03/23 Status: Ordered Start: 04-01-2022 End: 09-28-2022 take 1 capsule by mouth once daily omeprazole 20 mg Cap-DR 20 mg = 1 cap(s), Oral, Daily, X 90 day(s), # 90 cap(s), Refills(s) 1, [facility] Start Date: 04/01/22 Stop Date: 09/28/22 Status: Ordered Start: 08-29-2014 take 1 capsule by mo [facility] once daily omeprazole (PRILOSEC) 20 mg capsule Take 1 capsule by mouth once daily. 90 capsule 3 12/19/2018 Active Comment on above: Take 1 capsule by [facility] once daily. ProFe 180 mg oral capsule (8 sources) Start: 12-25-2023 take 1 capsule by mouth once daily ProFe 180 mg oral capsule 180 mg = 1 cap(s), Oral, Daily, # 100 cap(s), Refills(s) 0, Pharmacy: [facility]/pharmacy #[id number], 178, cm, 12/18/23 13:19:00 EST, Height/Length [...] Daily, # 10 cap(s), Refills(s) 0, Pharmacy: [facility]/pharmacy #[id number], 178, cm, 07/19/23 11:20:00 EDT, Height/Length [...] Coronary arteriosclerosis; 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: [Atherosclerotic heart disease of [place] coronary artery without angina pectoris] Onset: 4 [...] source) Long-term current use of anticoagulant; 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: [[facility] (current) use of 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] Onset: 11-28-2017 11-28-2017 [...] Oncology Monday 8:00 AM EST With: Where: [facility] Kofi Normal [facility] Family Medicine Office/[facility] 03-26-2024 [...] Daily, # 100 cap(s), Refills(s) 0, [id number] 178, cm, 12/18/23 13:19:00 EST, Height/Length Dosing, 89.1, kg, 12/18/23 13:19:00 EST, Weight Dosing lisinopril, See Instructions, TAKE 1 TABLET DAILY, # 90 tab(s), Refills(s) 1, Pharmacy: [facility]/pharmacy #[id number], 179, cm, 03/26/24 10:53:00 EDT, Height/Length Dosing, 86, kg, 03/26/24 10:53:00 EDT, Weight Dosing Follow-up No qualifying data available Problem List/Past Medical History Ongoing AAA (abdominal aortic aneurysm) Aortic aneurysm BMI 28.0-28.9,adult BPH (benign prostatic hyperplasia) CAD in [place] artery Controlled type 2 diabetes mellitus without [...] Others hurt by (more content not included)... [facility] Comment on above: Result Comment: Elec tronically Signed By: Ursula Love MD\.br\Date and Time Signed: 03/26/24 16:51 EDT Physician Referralon 024 Physician Referral [id number] #1.00TIFF [facility] Population Healthon 03-22-20 24 Population Health Case Information Case Priority: None Programs: -- Referral Source: Associate Software Developer Referral Reason: Disease management Case Type: Chronic Care Management Risk Score: -- Case Status: Active (December 28, 2023) Date Assigned: December 19, 2023 Assigned By: Christian Hernandez Date Enrolled: December 28, 2023 Assigned Primary Personnel: Christian Hernandez Assigned Secondary Personnel: -- Case Physician: Ursula Love MD Problems Ongoing AAA (abdominal aortic aneurysm) Aortic aneurysm BMI 28.0-28.9,adult BPH (benign prostatic hyperplasia) CAD in [place] artery Controlled type 2 diabetes mellitus without [...] CCM Program Enrollment Verbally agreed to receive [facility] services CCM Written Consent Written consent in progress CCM Verbal Consent By Self 12/28/23 07:00:00 Result Name Value Comment HIPPA Verified Type of Contact In person at home CM Preferred Spoken Language Swiss CM Preferred Written Language Swiss Preferred Communication Mode Verbal Ability to Read/Write Able to read, Able to write Preferred Salutation Preferred Method of Contact Cell Cell Phone [phone] Best Time to Visit or Contact 7-10 am Best Day to Visit or Contact No preference Appointment Reminders Patient portal, Other secured messaging Preferred Way to Send PHI Patient portal Preferred Mailing Address [address] [place] [address], [address] Learning Style Pref Patient Verbal explanation Learning [...] Shares bed Support System Spouse/Significant other Primary Hostess Cashier of Home Medication Self Current DME at Home No Currently Receiving Skilled Services No Skilled Service Needs Anticipated No Barriers to Care None Home Barriers None Employment Status Retired Financial Issues None Sources of Income Social Security Pat (more content not included)... Normal [facility] Consent for Treatmenton 02-15 Consent for Treatment [id number] #1.00TIFF Normal [facility] Oncology Progress Noteon Oncology Progress Note [...] a colonoscopy done in Sep 2023 at [facility] after positive Cologuard test. This showed [...] Contact Information Tj NATHAN-PEMA, Ana Rivas, ONC [facility] [address] [place] [address] [place] [address]- [phone] Additional Instructions: cbc, cmp, iron studies in 3mo and 6mo follow-up in 6mo with CONTINUOUS MINING OPERATOR Medications amLODIPine 5 mg Tab, Oral, [...] (DoT), 100 (more content not included)... Normal [facility] CBC w/ Auto Diffon 4 Acanthocytes LM Ql (Bld) PRESENT Invalid Interpretation Code [facility] Comment on above: Performed By: #### 2 [id number] #### [facility] Laboratory [address] [place] [address] Anisocytosis Ql (Bld) PRESENT Invalid Interpretation Code [facility] Comment on above: Performed By: #### 2 [id number] #### [facility] [address] [place] [address] Basophils/100 WBC (Bld) 0.8 % Normal 0.0-2.0 [facility] Comment on above: Performed By: #### 2 [id number] #### [facility] [address] [place] [address] Basophils/Leukocytes Auto (Bld) [Pure # fraction] 0.0 E9/L Normal 0.0-0.2 [facility] Comment on above: Performed By: #### 2 [id number] #### [facility] [address] [place] [address] Eosinophils (Bld) [#/Vol] 0.2 E9/L Normal 0.0-0.5 [facility] Comment on above: Performed By: #### 2 [id number] #### [facility] [address] [place] [address] Eosinophils/100 WBC (Bld) 3.7 % Normal 0.0-8.0 [facility] Comment on above: Performed By: #### 2 [id number] #### [facility] [address] [place] [address] Erythrocyte distribution width (RBC) [Ratio] 27.1 % High 10.9-14.2 [facility] Comment on above: Performed By: #### 2 876970 #### [facility] [address] [place] [address] Hematocrit (Bld) [Volume fraction] 40.0 % Normal 37.7-49.0 [facility] Comment on above: Performed By: #### 2 [id number] #### [facility] [address] [place] [address] Hemoglobin (Bld) [Mass/Vol] 13.4 g/dL Low 13.5-17.5 [facility] Comment on above: Performed By: #### 2 [id number] #### [facility] [address] [place] [address] Hypochromia Auto Ql (Bld) PRESENT Invalid Interpretation Code [facility] Comment on above: Performed By: #### 2 [id number] #### [facility] [address] [place] [address] Lymphocytes (Bld) [#/Vol] 1.6 E9/L Normal 1.0-4.0 [facility] Comment on above: Performed By: #### 2 616227 #### [facility] [address] [place] [address] Lymphocytes/100 WBC (Bld) 32.5 % Normal 14.0-50.0 [facility] Comment on above: Performed By: #### 2 [id number] #### [facility] [address] [place] [address] MCH (RBC) [Entitic mass] 27.3 pg Normal 27.0-34.0 [facility] Comment on above: Performed By: #### 2 [id number] #### [facility] [address] [place] [address] MCHC (RBC) [Mass/Vol] 33.6 g/dL Normal 31.4-36.0 [facility] Comment on above: Performed By: #### 2 [id number] #### [facility] [address] [place] [address] MCV (RBC) [Entitic vol] 81.4 fL Normal 80.0-100.0 [facility] Comment on above: Performed By: #### 2 719140 #### [facility] [address] [place] [address] Monocytes (Bld) [#/Vol] 0.4 E9/L Normal 0.2-1.0 [facility] Comment on above: Performed By: #### 2 [id number] #### [facility] [address] [place] [address] Neutrophils (Bld) [#/Vol] 2.7 E9/L Normal 2.0-7.5 [facility] Comment on above: Performed By: #### 2 958382 #### [facility] [address] [place] [address] Neutrophils/100 WBC (Bld) 55.1 % Normal 36.0-75.0 [facility] Comment on above: Performed By: #### 2 014238 #### [facility] [address] [place] [address] Ovalocytes LM Ql (Bld) PRESENT Invalid Interpretation Code [facility] Comment on above: Performed By: #### 2 [id number] #### [facility] [address] [place] [address] Platelet mean volume (Bld) [Entitic vol] 9.9 fL Normal 6.4-10.8 [facility] Comment on above: Performed By: #### 2 [id number] #### [facility] [address] [place] [address] Platelets (Bld) [#/Vol] 116.0 E9/L Low 150.0-500.0 [facility] Comment on above: Performed By: #### 2 147984 #### [facility] [address] [place] [address] RBC (Bld) [#/Vol] 4.9 E12/L Normal 4.3-5.9 [facility] Comment on above: Performed By: #### 2 [id number] #### [facility] [address] [place] [address] RBC size Nom (Bld) SEE MORPHOLOGY Invalid Interpretation Code [facility] Comment on above: Performed By: #### 2 [id number] #### [facility] [address] [place] [address] WBC corrected for nucl RBC Auto (Bld) [#/Vol] 5.0 E9/L Normal 4.0-11.0 [facility] Comment on above: Performed By: #### 2 [id number] #### [facility] [address] [place] [address] CHEMISTRYOrdered By: SYSTEM SYSTEM on 03-12-2024 Albumin [...] 03-12-2024 Albumin [Mass/Vol] 4.3 g/dL Normal 3.3-5.0 [facility] Comment on above: Performed By: #### 2 [id number] #### [facility] [address] [place] [address] Albumin/Globulin (S) [Mass conc ratio] 2.3 High 1.1-2.2 [facility] Comment on above: Performed By: #### 2 [id number] #### [facility] [address] [place] [address] ALP [Catalytic activity/Vol] 54 Int._Unit/L Normal 21-98 [facility] Comment on above: Performed By: #### 2 [id number] #### [facility] [address] [place] [address] ALT No additional P-5'-P [Catalytic activity/Vol] 47 Int._Unit/L High 6-46 [facility] Comment on above: Performed By: #### 2 535851 #### [facility] [address] [place] [address] Anion gap [Moles/Vol] 12 mmol/L Normal 6-16 [facility] Comment on above: Performed By: #### 2 546409 #### [facility] [address] [place] [address] AST [Catalytic activity/Vol] 30 Int._Unit/L Normal 5-43 [facility] Comment on above: Performed By: #### 2 329351 #### [facility] [address] [place] [address] Bilirubin [Mass/Vol] 1.8 mg/dL High 0.0-1.1 [facility] Comment on above: Performed By: #### 2 484535 #### [facility] [address] [place] [address] Calcium [Mass/Vol] 9.1 mg/dL Normal 8.9-11.1 [facility] Comment on above: Performed By: #### 2 992326 #### [facility] [address] [place] [address] Chloride [Moles/Vol] 102 mmol/L Normal 101-111 [facility] Comment on above: Performed By: #### 2 797837 #### [facility] [address] [place] [address] CO2 [Moles/Vol] 26 mmol/L Normal 21-31 [facility] Comment on above: Performed By: #### 2 654121 #### [facility] [address] [place] [address] Creatinine [Mass/Vol] 0.8 mg/dL Normal 0.5-1.3 [facility] Comment on above: Performed By: #### 2 657001 #### [facility] [address] [place] [address] Globulin (S) [Mass/Vol] 1.9 g/dL Normal 1.4-4.0 [facility] Comment on above: Performed By: #### 2 791171 #### [facility] [address] [place] [address] Glucose [Mass/Vol] 153 mg/dL Normal 55-199 [facility] Comment on above: Performed By: #### 2 [id number] #### [facility] [address] [place] [address] Potassium [Moles/Vol] 4.7 mmol/L Normal 3.5-5.3 [facility] Comment on above: Performed By: #### 2 078116 #### [facility] [address] [place] [address] Protein [Mass/Vol] 6.2 g/dL Normal 6.0-7.8 [facility] Comment on above: Performed By: #### 2 457581 #### [facility] [address] [place] [address] Sodium [Moles/Vol] 135 mmol/L Normal 135-145 [facility] Comment on above: Performed By: #### 2 802100 #### [facility] [address] [place] [address] Urea nitrogen [Mass/Vol] 9 mg/dL Normal 5-21 [facility] Comment on above: Performed By: #### 2 247799 #### [facility] [address] [place] [id number] Urea nitrogen/Creatinine [Mass ratio] 11 No Units Normal 10-20 [facility] Comment on above: Performed By: #### 2 527197 #### [facility] [address] [place] [address] Consent for Treatmenton 02-14 Consent for Treatment [id number] #1.00TIFF Normal [facility] Ferritinon 03-12-2024 Ferritin [Mass/Vol] 179 ng/mL Normal 24-336 [facility] Comment on above: Performed By: #### 2 777856 #### [facility] [address] [place] [address] HEMATOLOGYOrdered By: SYSTEM SYSTEM on 03-12-2024 Acanthocytes [...] 03-12-2024 Iron [Mass/Vol] 117 microgram/dL Normal 35-153 [facility] Comment on above: Performed By: #### 2 157052 #### [facility] [address] [place] [address] Iron Saturationon 03-12-2024 Iron binding capacity [Mass/Vol] 326 microgram/dL Normal 250-400 [facility] Comment on above: Performed By: #### 2 632065 #### [facility] [address] [place] [address] Iron saturation [Mass fraction] 36 % Normal 20-50 [facility] Comment on above: Performed By: #### 2 794930 #### [facility] [address] [place] [address] Transferrinon 03-12-2024 Transferrin [Mass/Vol] 233 mg/dL Normal 200-370 [facility] Comment on above: Performed By: #### 2 984003 #### [facility] [address] [place] [address] eGFRon 03-12-2024 eGFR 98 mL/min/1.73 m2 Normal >=59 [facility] Comment on above: Order Comment: Order added by Discern Expert. Performed By: #### 1 [id number] #### [facility] [address] [place] [address] Consent for Treatmenton 0 Consent for Treatment [id number] #1.00TIFF Normal [facility] Consent for Treatmenton - Consent for Treatment [id number] #1.00TIFF [facility] Consent for Treatmenton 01-14 Consent for Treatment [id number] #1.00TIFF [facility] Consenton 01-31-2024 Consent [id number]#1.00TIFF [facility] Outside Diabetes Eye Examon 01-31-2024 Outside Diabetes Eye Exam [id number] #1.00TIFF [facility] Population Healthon 01-26-20 24 Population Health Case Information Case Priority: None Programs: -- Referral Source: Associate Software Developer Referral Reason: Disease management Case Type: Chronic Care Management Risk Score: -- Case Status: Active (December 28, 2023) Date Assigned: December 19, 2023 Assigned By: Christian Hernandez Date Enrolled: December 28, 2023 Assigned Primary Personnel: Christian Hernandez Assigned Secondary Personnel: -- Case Physician: Ursula Love MD Ongoing AAA (abdominal aortic aneurysm) Aortic aneurysm BMI 28.0-28.9,adult BPH (benign prostatic hyperplasia) CAD in [place] artery Controlled type 2 diabetes mellitus without [...] Assessments 12/28/23 08:18:00 Result Name Value Comment [facility] Program Enrollment Verbally agreed to receive [facility] services [facility] Written Consent Written consent in progress [facility] Verbal Consent By Self 12/28/23 07:00:00 Result Name Value Comment HIPPA Verified Type of Contact In person at home CM Preferred Spoken Language Swiss CM Preferred Written Language Swiss Preferred Communication Mode Verbal Ability to Read/Write Able to read, Able to write Preferred Salutation Mr. Preferred Method of Contact Cell Cell Phone [phone] Best Time to Visit or Contact 7-10 am Best Day to Visit or Contact No preference Appointment Reminders Patient portal, Other secured messaging Preferred Way to Send PHI Patient portal Preferred Mailing Address [address] [place] [address], [address] Learning Style Pref Patient Verbal explanation Learning [...] Shares bed Support System Spouse/Significant other Primary Hostess Cashier of Home Medication Self Current DME at Home No Currently Receiving Skilled Services No Skilled Service Needs Anticipated No Barriers to Care None Home Barriers None Employment Status Retired Financial Issues None Sources of Income Social Security Pat (more content not included)... Normal [facility] Consent for Treatmenton 01-14 Consent for Treatment [id number] #1.00TIFF Normal [facility] Oncology Progress Noteon Oncology Progress Note [...] his nasa (more content not included)... Normal [facility] Free K+L Lt Chains,Qn,Son Immunoglobulin light chains.kappa.free (S) [Mass/Vol] 19.0 mg/L Invalid Interpretation Code 3.3-19.4 [facility] Comment on above: Performed By: #### 2 [id number], [id number], 8846574, 5175588, 9538217, 3652527, 6022188, 3323670, 91126781 ####[facility] [id number] [place] [address] Immunoglobulin light chains.kappa.free/Imm unoglobulin light chains.lambda.free (S) [Mass ratio] 1.62 Invalid Interpretation Code 0.26-1.65 [facility] Comment on above: Result Comment: Perf ormed at: [facility] [address], [place] [id number] PhD Nicole Fang Performed By: #### 2 [id number], 5431086, 9750515, 4994700, 7979861, 1348098, 8401513, 4329446, [id number] ####[address] [place] [address] Immunoglobulin light chains.lambda.free [Mass/Vol] 11.7 mg/L Invalid Interpretation Code 5.7-26.3 [facility] Comment on above: Performed By: #### 2 [id number], 7879340, 6398108, 4349174, 8320974, 2412701, 0953099, 5952358, [id number] ####[address] [place] [address] Immunofixation Serumon 01-16 IgA [Mass/Vol] 87 mg/dL Invalid Interpretation Code 614[address] [facility] Comment on above: Performed By: #### 2 [id number], 7025742, 1348301, 9738165, 5292089, 9107706, 1819029, 2103063, [id number] ####[facility] [id number] [place] [address] IgG [Mass/Vol] 406 mg/dL Low 603-1613 [facility] Comment on above: Performed By: #### 2 02760418, 2506424, 8053353, 6514813, 0639492, 0164485, 1362375, 5724992, 94576703 ####[facility] [address] [place] [address] IgM [Mass/Vol] 136 mg/dL Invalid Interpretation Code 20-172 [facility] Comment on above: Result Comment: Perf ormed at: [facility] [address] [id number] PhD Nicole Fang Performed By: #### 2 90995262, 5323522, 1411757, 1187881, 9534755, 1558052, 1253489, 9879732, 28508867 ####[facility] [address] [place] [address] Protein Fractions [Interp] Comment Invalid Interpretation Code [facility] Comment on above: Result Comment: No m onoclonality detected. Performed By: #### 2 44596087, 1713406, 1338560, 7806324, 4666349, 6329978, 5494212, 0867716, 06603544 ####[facility] [address] [place] [address] SPEon 01-17-2024 Albumin [Mass/Vol] 3.6 g/dL Invalid Interpretation Code 2.9-4.4 [facility] Comment on above: Performed By: #### 2 71379611, 7720364, 4861216, 0242012, 8411584, 9557016, 5313201, 9650673, 56947064 ####[facility] [address] [place] [address] Albumin/Globulin [Mass ratio] 1.8 {ratio} High 0.7-1.7 [facility] Comment on above: Performed By: #### 2 43645040, 5554150, 6802982, 2359594, 8999920, 9002677, 6530936, 5649066, 54644743 ####[facility] [address] [place] [address] Alpha 1 globulin Elph [Mass/Vol] 0.2 g/dL Invalid Interpretation Code 0.0-0.4 [facility] Comment on above: Performed By: #### 2 79202596, 3854332, 8513150, 9611803, 8116363, 9527520, 8472620, 4821126, 80758646 ####[facility] [address] [place] [address] Alpha 2 globulin Elph [Mass/Vol] 0.6 g/dL Invalid Interpretation Code 0.4-1.0 [facility] Comment on above: Performed By: #### 2 84396762, 4515449, 0217751, 2233868, 7640402, 0394008, 6744819, 1780903, 52488081 ####[facility] [address] [place] [address] Beta globulin Elph [Mass/Vol] 0.8 g/dL Invalid Interpretation Code 0.7-1.3 [facility] Comment on above: Performed By: #### 2 85520912, 9149469, 3730355, 0017984, 8240717, 1484262, 5762038, 6534856, 18604686 ####[place] [address] Gamma globulin Elph [Mass/Vol] 0.4 g/dL Invalid Interpretation Code 0.4-1.8 [facility] Comment on above: Performed By: #### 2 29218081, 8330798, 3322577, 8807787, 1157219, 0658947, 6993170, 7046941, 41631686 ####[place] [address] [place] [address] Globulin (S) [Mass/Vol] 2.0 g/dL Low 2.2-3.9 [facility] Comment on above: Performed By: #### 2 34728708, 3773359, 3321131, 8168815, 6154168, 7888104, 2572889, 5435733, 31625942 ####[place] [address] [place] [address] Laboratory comment Harman (Report) Comment Invalid Interpretation Code [facility] Comment on above: Result Comment: Prot ein electrophoresis scan will follow via computer, mail, or pie maker machine delivery. Performed By: #### 2 87822754, 8384861, 8934902, 6871466, 3275717, 5840321, 1436292, 6723059, 87701467 ####[facility] [address] [place] [address] Protein [Mass/Vol] 5.6 g/dL Low 6.0-8.5 [facility] Comment on above: Performed By: #### 2 14941034, 8834456, 7503804, 6181973, 6273039, 0598595, 6013423, 1221073, 00852920 ####[facility] [address] [place] [address] Protein Fractions [Interp] Comment: Invalid Interpretation Code [facility] Comment on above: Result Comment: SPE shows decreased total protein. Performed at: [address] [id number] PhD Nicole Fang Performed By: #### 2 11280158, 4752895, 2809320, 3046202, 5330878, 6961892, 2880852, 8218973, 25058388 ####[facility] [address] [place] [address] Protein.monoclonal Elph [Mass/Vol] Not Observed Invalid Interpretation Code Not Observed [facility] Comment on above: Performed By: #### 2 23848893, 0949613, 2169899, 5214434, 3124102, 7767414, 4765523, 6823155, 70003343 ####[facility] [address] [place] [address] CHEMISTRYOrdered By: SYSTEM SYSTEM on 01-16-2024 Cobalamin [...] for Treatmenton Consent for Treatment [id number] #1.00TIFF Normal [facility] Ferritinon 01-16-2024 Ferritin [Mass/Vol] 8 ng/mL Low 24-336 [facility] Comment on above: Performed By: #### 2 93786610, 9599508, 7229239, 2291332, 4569596, 5878952, 7641742, 7673736, 12350416 ####[facility] [address] [place] [address] Folateon 01-16-2024 Folate [Mass/Vol] 13.0 ng/mL Normal >=6.7 [facility] Comment on above: Performed By: #### 2 88954348, 2054049, 6769506, 8151017, 9702693, 4551500, 9699155, 1097401, 90510837 ####[facility] [address] [place] [address] Ironon 01-16-2024 Iron [Mass/Vol] 36 microgram/dL Normal 35-153 [facility] Comment on above: Performed By: #### 2 02177651, 1225919, 3396674, 9295936, 7205845, 2413192, 8463410, 9579387, 62531770 ####[facility] [address] [place] [address] Iron Saturationon 01-16-2024 Iron binding capacity [Mass/Vol] 473 microgram/dL High 250-400 [facility] Comment on above: Performed By: #### 2 50903238, 5520268, 9699853, 7934843, 0132966, 8478892, 6969512, 1093594, 44958657 ####[facility] [address] [place] [address] Iron saturation [Mass fraction] 8 % Low 20-50 [facility] Comment on above: Performed By: #### 2 25978438, 6089055, 7338130, 7365588, 3151634, 5202144, 9724951, 3950431, 01975868 ####[facility] [address] [place] [address] Transferrinon 01-16-2024 Transferrin [Mass/Vol] 338 mg/dL Normal 200-370 [facility] Comment on above: Performed By: #### 2 18000960, 8187512, 5992292, 7275875, 2512543, 8629862, 4308737, 5417594, 17353545 ####[facility] [address] [place] [address] Vit B12on 01-16-2024 Cobalamin (Vitamin B12) [Mass/Vol] 213 pg/mL Normal 50-1500 [facility] Comment on above: Performed By: #### 2 40112787, 5493457, 8443972, 8750677, 1532485, 1384216, 7421761, 1356731, 36386773 ####[facility] [address] [place] [address] 36on 01-10-2024 36 Message sent from patient to my email: Kg Mesa hope all is well, I forgot to ask if I???m 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 Some things I???ve read are telling me not to?? Marilyn, are you able to advise on this? Thanks. Normal [facility] Physician Referralon 024 Physician Referral [id number] #1.00TIFF Normal [facility] Office Visiton 12-29-2023 Follow-up visit [id number] Marcelle Deutsch 1960 M Date Provider Department Center 12/29/2023 PARISA MUNGUIA Family History Problem Relation Age of Onset Coronary artery disease Father Atrial fibrillation Father Heart attack Brother Family Status - Relation Status Age at Father Brother Level of Service:08468 MS OFFICE/OUTPATIENT ESTABLISHED MOD MDM 30 MIN Normal [facility] ED Pat Eduon 12-28-2023 [facility] Cardiovascular Coronary Artery Disease, Male Coronary artery disease (CAD) is a condition in which the arteries that lead to the heart (coronary arteries) become narrow or blocked. The narrowing or blockage can lead to decreased blood flow to the heart. Prolonged reduced blood flow can cause a heart attack (myocardial infarction, or SC). This condition may also be called coronary [...] these instructions at home: Medicines ? Take gbcs-boy-ncdswtn and prescription medicines only as told by [...] use any (more content not included)... Normal [facility] 12-28-19 Population Health Case Information Case Priority: None Programs: -- Referral Source: Associate Software Developer Referral Reason: Disease management Case Type: Chronic Care Management Risk Score: -- Case Status: Active (December 28, 2023) Date Assigned: December 19, 2023 Assigned By: Christian Hernandez Date Enrolled: December 28, 2023 Assigned Primary Personnel: Christian Hernandez Assigned Secondary Personnel: -- Case Physician: -- Problems Ongoing AAA (abdominal aortic aneurysm) Aortic aneurysm BMI 28.0-28.9,adult BPH (benign prostatic hyperplasia) CAD in [place] artery Controlled type 2 diabetes mellitus without [...] Assessments 12/28/23 08:18:00 Result Name Value Comment [facility] Program Enrollment Verbally agreed to receive [facility] services CCM Written Consent Written consent in progress CCM Verbal Consent By Self 12/28/23 07:00:00 Result Name Value Comment HIPPA Verified Type of Contact In person at home CM Preferred Spoken Language Swiss CM Preferred Written Language Swiss Preferred Communication Mode Verbal Ability to Read/Write Able to read, Able to write Preferred Salutation MrNelly Preferred Method of Contact Cell Cell Phone [phone] Best Time to Visit or Contact 7-10 am Best Day to Visit or Contact No preference Appointment Reminders Patient portal, Other secured messaging Preferred Way to Send PHI Patient portal Preferred Mailing Address [address] [place] [address], [address] Learning Style Pref Patient Verbal explanation Learning [...] Shares bed Support System Spouse/Significant other Primary 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 CT Chest, Low Dose Screening on 12-27-2023 [...] Bourne MD Transcribed by: LUDWIN Technologist: MEKHI [facility] Consent for Treatmenton 12-14 Consent for Treatment [id number] #1.00TIFF [facility] Family Medicine Office/Clini c Noteon 12-22-2023 [...] of clutter to prevent tripping and/or falling. [place] Advance Directives reviewed, patient has at home, [...] PCP visit. Will have labs completed with [facility] Colonoscopy up to date, due for repeat [...] with CDC recommendation that everyone born from 1746[birth year]00 get tested for Hepatitis C. This is [...] Pack Yea (more content not included)... Normal [facility] Comment on above: Result Comment: Elec tronically Signed By: Ursula Love MD\.br\Date and Time Signed: 12/22/23 11:50 EST\.br\Electronically Co-Signed By: Christian Hernandez\.br\Date and Time Co-Signed: 12/18/23 15:00 EST .Interpretation:on 4 HCV Ab IA Ql Comment Invalid Interpretation Code [facility] Comment on above: Result Comment: Not infected with HCV unless early or acute infection is suspected (which may be delayed in an immunocompromised individual), or other evidence exists to indicate HCV infection. Performed at: [facility] [id number] [place], [place] [id number] PhD Nicole Fang Performed By: #### 2 481694, 1186482484, 4313632, 1601289, 6085068163, 922963699, 89071730 ####[place] [address] [place] [address] HCV Antibody RFX to Quant PC Kavin 12-20-2023 HCV IgG IA Ql Non-Reactive Invalid Interpretation Code Non Reactive [facility] Comment on above: Result Comment: Perf ormed at: [facility] [address] [id number] PhD Nicole Fang Performed By: #### 2 344990, 0898101081, 9242330, 3038837, 6045301335, 877107513, 12224738 ####[facility] [address] [place] [address] Screenson 12-19-2023 Screens [id number] #1.00TIFF Normal [facility] Ambulatory Visit Summaryon 0 12-18-2023 Ambulatory [...] 28.0-28.9,adult BPH (benign prostatic hyperplasia) CAD in [place] artery Controlled type 2 diabetes mellitus without [...] for choosing us for your care. Normal [facility] CBC w/ Auto Diffon 4 Anisocytosis Ql (Bld) PRESENT Invalid Interpretation Code [facility] Comment on above: Performed By: #### 2 557188, 9552049846, 6643309, 0272189, 0784115807, 160762806, 94729986 ####[facility] [address] [place] [address] Basophils/100 WBC (Bld) 0.6 % Normal 0.0-2.0 [facility] Comment on above: Performed By: #### 2 998454, 0870639159, 1438638, 5271916, 9588140873, 062120001, 58080856 ####[address] [address] Basophils/Leukocytes Auto (Bld) [Pure # fraction] 0.0 E9/L Normal 0.0-0.2 [facility] Comment on above: Performed By: #### 2 143169, 8337370894, 7543747, 8224424, 4720982946, 060677195, 66678711 ####[address] [address] Eosinophils (Bld) [#/Vol] 0.1 E9/L Normal 0.0-0.5 [facility] Comment on above: Performed By: #### 2 508119, 4448293869, 0070881, 2329242, 0656456713, 026536372, 73023632 ####[address] [address] Eosinophils/100 WBC (Bld) 2.7 % Normal 0.0-8.0 [facility] Comment on above: Performed By: #### 2 842256, 6051115107, 2267439, 6105384, 9628136640, 381867230, 23370805 ####[place] [address] Erythrocyte distribution width (RBC) [Ratio] 17.2 % High 10.9-14.2 [facility] Comment on above: Performed By: #### 2 854998, 9785616390, 8947916, 4300145, 9642777505, 040408564, 66245231 ####[address] [address] Hematocrit (Bld) [Volume fraction] 34.4 % Low 37.7-49.0 [facility] Comment on above: Performed By: #### 2 543435, 1841846904, 5305187, 1023128, 2643836760, 060310047, 82910155 ####[place] [address] [place] [address] Hemoglobin (Bld) [Mass/Vol] 10.9 g/dL Low 13.5-17.5 [facility] Comment on above: Performed By: #### 2 273764, 5759988105, 0885107, 6686737, 6864852425, 614785491, 03756900 ####[facility] [address] [place] [address] Hypochromia Auto Ql (Bld) PRESENT Invalid Interpretation Code [facility] Comment on above: Performed By: #### 2 732475, 8856456547, 0791221, 6602713, 1744268085, 183576811, 45250991 ####[address] [address] Lymphocytes (Bld) [#/Vol] 1.3 E9/L Normal 1.0-4.0 [facility] Comment on above: Performed By: #### 2 340171, 9069474943, 9920550, 6135698, 1384457242, 876260312, 42277193 ####[address] [address] Lymphocytes/100 WBC (Bld) 25.8 % Normal 14.0-50.0 [facility] Comment on above: Performed By: #### 2 838943, 6502046739, 5640161, 4426741, 1821464286, 041938660, 35788104 ####[place] [place] [address] MCH (RBC) [Entitic mass] 23.3 pg Low 27.0-34.0 [facility] Comment on above: Performed By: #### 2 598038, 4387250903, 4140054, 6295893, 2811212859, 156962987, 76882202 ####[facility] [address] [place] [address] MCHC (RBC) [Mass/Vol] 31.6 g/dL Normal 31.4-36.0 [facility] Comment on above: Performed By: #### 2 245608, 0712868790, 1531628, 1342036, 9623259170, 861067056, 67798731 ####[address] [address] MCV (RBC) [Entitic vol] 73.6 fL Low 80.0-100.0 [facility] Comment on above: Performed By: #### 2 459340, 4917503263, 3589932, 8684366, 6286667972, 361794585, 66506484 ####[address] [address] Microcytes Ql (Bld) PRESENT Invalid Interpretation Code [facility] Comment on above: Performed By: #### 2 124355, 6932191977, 0970788, 9946468, 6610169634, 777382814, 31795487 ####[address] [address] Monocytes (Bld) [#/Vol] 0.4 E9/L Normal 0.2-1.0 [facility] Comment on above: Performed By: #### 2 320963, 6605771029, 7530611, 1078489, 5162492223, 491032592, 31590314 ####[address] [address] Neutrophils (Bld) [#/Vol] 3.2 E9/L Normal 2.0-7.5 [facility] Comment on above: Performed By: #### 2 079053, 7948098704, 1644619, 7554670, 1237377947, 831671648, 01945863 ####[address] [address] Neutrophils/100 WBC (Bld) 63.4 % Normal 36.0-75.0 [facility] Comment on above: Performed By: #### 2 975974, 6152394104, 4352112, 2163307, 5236656645, 128450582, 66030595 ####[facility] [address] [place] [address] Ovalocytes LM Ql (Bld) PRESENT Invalid Interpretation Code [facility] Comment on above: Performed By: #### 2 979949, 7005107279, 4266781, 7130538, 3149400676, 100630328, 28714732 ####[facility] [address] [place] [address] Platelet mean volume (Bld) [Entitic vol] 10.4 fL Normal 6.4-10.8 [facility] Comment on above: Performed By: #### 2 232354, 6806903139, 6339668, 5417778, 3090844300, 486691299, 72439835 ####[facility] [address] [place] [address] Platelets (Bld) [#/Vol] 137.0 E9/L Low 150.0-500.0 [facility] Comment on above: Performed By: #### 2 379947, 5266611299, 2858114, 4210647, 6107404855, 335684955, 48553717 ####[address] [address] Poikilocytosis Auto Ql (Bld) PRESENT Invalid Interpretation Code [facility] Comment on above: Performed By: #### 2 660919, 9369730838, 6618080, 7515634, 9135859085, 852562976, 18047188 ####[place] [place] [address] RBC (Bld) [#/Vol] 4.7 E12/L Normal 4.3-5.9 [facility] Comment on above: Performed By: #### 2 045845, 8145936595, 4332066, 8348863, 8315723986, 944567802, 53649580 ####[facility] [address] [place] [address] WBC corrected for nucl RBC Auto (Bld) [#/Vol] 5.0 E9/L Normal 4.0-11.0 [facility] Comment on above: Performed By: #### 2 070912, 8526312517, 8887763, 3125753, 3649076555, 940975187, 59114218 ####[facility] [address] [place] [address] CHEMISTRYOrdered By: SYSTEM SYSTEM on 12-18-2023 Albumin [...] (Bld) [Mass fraction] 6.9 % High <=5.9% [facility] ChemAutoSS CMPon 12-18-2023 Albumin [Mass/Vol] 4.4 g/dL Normal 3.3-5.0 [facility] Comment on above: Performed By: #### 2 080484, 4603387740, 6062784, 6179565, 9609429093, 765740725, 86290042 ####[facility] [address] [place] [address] Albumin/Globulin (S) [Mass conc ratio] 2.6 High 1.1-2.2 [facility] Comment on above: Performed By: #### 2 025972, 2184846197, 1479046, 6542198, 0534716158, 776872805, 14829523 ####[facility] [address] [place] [address] ALP [Catalytic activity/Vol] 49 Int._Unit/L Normal 21-98 [facility] Comment on above: Performed By: #### 2 327747, 0779867995, 0483520, 6880883, 0287741025, 072307480, 10284328 ####[facility] [address] [place] [address] ALT No additional P-5'-P [Catalytic activity/Vol] 20 Int._Unit/L Normal 6-46 [facility] Comment on above: Performed By: #### 2 288221, 1560554537, 4947710, 0521895, 4564791046, 805934476, 14998952 ####[facility] [address] [place] [address] Anion gap [Moles/Vol] 13 mmol/L Normal 6-16 [facility] Comment on above: Performed By: #### 2 269856, 1381930598, 1453463, 2875278, 8346265722, 481637836, 08577762 ####[facility] [address] [place] [address] AST [Catalytic activity/Vol] 17 Int._Unit/L Normal 5-43 [facility] Comment on above: Performed By: #### 2 383182, 8224984720, 5669212, 0780496, 4578262519, 706644669, 73974466 ####[facility] [address] [place] [address] Bilirubin [Mass/Vol] 1.7 mg/dL High 0.0-1.1 [facility] Comment on above: Performed By: #### 2 383771, 3031938109, 9293780, 1855044, 4708010864, 285562019, 83412989 ####[facility] [address] [place] [address] Calcium [Mass/Vol] 9.3 mg/dL Normal 8.9-11.1 [facility] Comment on above: Performed By: #### 2 711488, 6610267089, 0491105, 2549282, 8662406093, 399742573, 29217133 ####[facility] [address] [place] [address] Chloride [Moles/Vol] 103 mmol/L Normal 101-111 [facility] Comment on above: Performed By: #### 2 275103, 5283546790, 8889424, 2762723, 3513056881, 317840365, 57279813 ####[facility] [address] [place] [address] CO2 [Moles/Vol] 26 mmol/L Normal 21-31 [facility] Comment on above: Performed By: #### 2 321463, 2450111253, 9480866, 1799575, 9718237749, 082579054, 92924397 ####[address] [address] Creatinine [Mass/Vol] 0.8 mg/dL Normal 0.5-1.3 [facility] Comment on above: Performed By: #### 2 408879, 8435421011, 8942902, 2988514, 1676741198, 780614048, 58750541 ####[address] [address] Globulin (S) [Mass/Vol] 1.7 g/dL Normal 1.4-4.0 [facility] Comment on above: Performed By: #### 2 434044, 1624871048, 7096226, 5218096, 3823089040, 253348065, 49882453 ####[facility] [address] [place] [address] Glucose [Mass/Vol] 124 mg/dL Normal 55-199 [facility] Comment on above: Performed By: #### 2 781158, 8411940093, 7576844, 8825220, 8274230745, 376561200, 69950045 ####[address] [place] [address] Potassium [Moles/Vol] 4.0 mmol/L Normal 3.5-5.3 [facility] Comment on above: Performed By: #### 2 482537, 2020397295, 3830134, 2729521, 5204952973, 970904663, 85312216 ####[place] [place] [address] Protein [Mass/Vol] 6.1 g/dL Normal 6.0-7.8 [facility] Comment on above: Performed By: #### 2 582199, 0927757943, 9916067, 7932469, 4371993095, 899212204, 05531646 ####[address] [address] Sodium [Moles/Vol] 138 mmol/L Normal 135-145 [facility] Comment on above: Performed By: #### 2 321654, 3794204425, 8365766, 0258320, 2405522679, 773002834, 66690661 ####[facility] [address] [place] [address] Urea nitrogen [Mass/Vol] 8 mg/dL Normal 5-21 [facility] Comment on above: Performed By: #### 2 972933, 0598668576, 2226407, 9530870, 0536775839, 839922489, 67855778 ####[address] [address] Urea nitrogen/Creatinine [Mass ratio] 10 No Units Normal 10-20 [facility] Comment on above: Performed By: #### 2 329123, 3208448928, 2861226, 9341650, 3890355317, 293346596, 17183822 ####[facility] [address] [place] [address] HEMATOLOGYOrdered By: SYSTEM SYSTEM on 12-18-2023 Anisocytosis [...] Normal 4.0 - 11.0 E9/L Remisol Heme DgiB9dvq 12-18-2023 HbA1c (Bld) [Mass fraction] 6.9 % High <=5.9 [facility] Comment on above: Performed By: #### 2 526675, 8780531755, 8277971, 0081781, 6102810617, 251539678, 17623170 ####[facility] [address] [place] [address] Lipid Panelon 12-18-2023 Cholesterol [Mass/Vol] 118 mg/dL Low 120-200 [facility] Comment on above: Performed By: #### 2 [id number], [id number], [id number], 2541104, [id number], [id number], [id number] ####[facility] [address] [place] [address] Cholesterol in HDL [Mass/Vol] 37 mg/dL Invalid Interpretation Code [facility] Comment on above: Result Comment: '>= 60 LOW RISK' '<= 40 HIGH RISK' Performed By: #### 2 [id number], [id number], 9345298, 7565550, [id number], [id number], [id number] ####[facility] [address] [place] [address] Cholesterol in LDL [Mass/Vol] 72 mg/dL Normal <=129 [facility] Comment on above: Performed By: #### 2 334340, [id number], 5711542, 4546302, [id number], [id number], [id number] ####[facility] [address] [place] [address] Cholesterol in VLDL [Mass/Vol] 22 mg/dL Normal 7-40 [facility] Comment on above: Performed By: #### 2 377128, [id number], 5333352, 5180144, [id number], [id number], [id number] ####[facility] [address] [place] [address] Triglyceride [Mass/Vol] 112 mg/dL Normal <=149 [facility] Comment on above: Performed By: #### 2 150130, [id number], 9842574, 3591139, [id number], [id number], [id number] ####[facility] [address] [place] [address] Patient Educationon 12-18-19 Patient Education Cardiovascular Atrial [...] signals of the heart. ? An ambulatory lunchroom monitor to record your heart's activity for [...] Trouble breathing. (more content not included)... Normal [facility] eGFRon 12-18-2023 eGFR 98 mL/min/1.73 m2 Normal >=59 [facility] Comment on above: Order Comment: Order added by Discern Expert. Performed By: #### 2 236328, [id number], 1687708, 7803542, [id number], [id number], [id number] ####[facility] [address] [place] [address] 36on 11-20-2023 36 Patient emailed me and asked if we had samples of Xarelto. Since he's on Medicare now it's very expensive for him. We haven't had a rep bring samples of Xarelto in about 1 year. I mentioned switching to Eliquis, since we do get samples of that. Ok to send RX for Eliquis 5mg bid? Please advise. Thanks! [facility] Ambulatory Visit Summaryon 1 12-05-2022 Ambulatory [...] Appointments Monday 8:00 AM EDT With: Where: [address] \.br\ Medications\.br \ What How Much [...] BPH (benign prostatic hyperplasia)\.b r\ CAD in [place] artery\.br\ Controlled type 2 diabetes mellitus without [...] choosing us for your care.\.br\ \.br\ [facility] General Surgery Office/Clini c Noteon 10-04-2023 General [...] 28.0-28.9,adult BPH (benign prostatic hyperplasia) CAD in [place] artery Controlled type 2 diabetes mellitus without [...] virus vaccine, inactivated 07/30/2018 Recorded Normal [facility] Comment on above: Result Comment: Elec tronically Signed By: WILLIAM NIELSON, Jose Luis Jin\Date and Time Signed: 10/04/23 13:35 EST Reminderson 12-20-2023 Reminders - From: Kori Saldivar LPN To: [facility] - Clinical; Sent: 10/04/2023 13:36:47 EST Show up: 08/21/2026 07:00:00 EST Subject: colonoscopy recall Due Date/Time: 09/20/2026 07:00:00 EST Reminder/Recall Patient due for surveillance colonoscopy 09/20/2026 due to history of tubular adenoma. Normal [facility] Pathology Noteon 09-27-2023 Pathology Note [id number]#1.00TIFF Normal [facility] Outside Colonoscopyon 2022 Outside Colonoscopy [id number] #1.00TIFF Normal [facility] Lab Reportson 09-21-2023 Lab Reports [id number] #1.00TIFF [facility] Physician Referralon 023 Physician Referral [id number] #1.00TIFF [facility] Physician Referralon 023 Physician Referral [id number]# 1.00TIFF [facility] Consent for Procedure/Surger yon 08-30-2023 Consent for Procedure/Surgery [id number]#1.00TIFF [facility] Ambulatory Visit Summaryon 10-29-2022 Ambulatory Visit [...] Monday 8:00 AM EDT With: Where: [facility] [place] [id number]- \.br\ Medications\.br \ What How Much When [...] BPH (benign prostatic hyperplasia)\.b r\ CAD in [place] artery\.br\ Controlled type 2 diabetes mellitus without [...] for choosing us for your care.\.br\ \.br\ [facility] Ambulatory Visit Summaryon 10-16-2022 Ambulatory Visit Summary MARCELLE DEUTSCH :1960 Visit Date:08/16/2023 Ambulatory Visit Instructions Your Diagnosis Kidney stone Gross hematuria BPH (benign prostatic hyperplasia) Personal history of kidney stones Former smoker Family history of kidney cancer Tests Performed Urnls Dip Stick Auto w/o Microscopy POC 64023 Your Care Team Attending Physician - Shelley [...] Jose Luis THOMAS MD Where: General Surgery [facility] Invalid Interpretation Code [address] [place] [address]- \.br\ Monday 8:40 AM EDT \.br\ With: Ursula Love MD\.br\ Where: [facility] Patient Educationon 08-16-20 Patient Education Nephrology [...] Spinach (cooked), rhubarb, beets, sweet potatoes, and Luxembourger chard. ? Peanuts. ? Potato chips, monegasque fries, and baked potatoes with skin on. ? Nuts and nut products. ? Chocolate. ? If you regularly take a diuretic medicine, make sure to eat at least 1 or 2 servings of fruits or vegetables that are high in potassium each day. These include: ? Avocado. ? Banana. ? [place], prune, carrot, or tomato juice. ? Baked [...] fish oil, or vitamin B6. ? Take uwko-hyd-fznviku and prescription medicines only as told by your health care provider. These include supplements. What foods should I limit? Limit your in (more content not included)... Normal [facility] Screenson 08-16-2023 Screens [id number] #1.00TIFF Normal [facility] Urology Office/Clinic Noteon 08-16-2023 Urology Office/Clinic [...] Modifications. -Increase fluid intake, 90oz/day, clear fluids, lemon/kokhanok 2. Gross hematuria (R31.0: Gross hematuria) CT [...] (benign prostatic (more content not included)... Normal [facility] Comment on above: Result Comment: Elec [...] No Oral contrast amount in ml's: 0 [facility] Consent for Treatmenton 10-2 Consent for Treatment [id number] #1.00TIFF [facility] Ambulatory Visit Summaryon 1 Ambulatory Visit [...] Surgery [facility] Invalid Interpretation Code [address] [place] [address]- \.br\ Monday 8:40 AM EDT \.br\ With: Km NIELSON, Ursula Porter\.br\ Where: [facility] Nurse Consultation Noteon Nurse Consultation Note [...] influenza virus vaccine, inactivated 07/30/2018 Recorded Normal [facility] URINALYSISOrdered By: Isaiah Garcia on 08-04-2023 [...] PM) Normal Negative [facility] UA Auto SS Imperial.plasma/Lithiu m.RBC (Bld) [Mass ratio] 0-3 /HPF Normal [...] [facility] UA Auto SS Urobilinogen Qn (U) 0.1094867 {Denny'U}/dL Normal 0.0 - 1.0 EU/dL [facility] UA Auto SS WBC Auto Ql (U) Negative (08/04/23 2:10 PM) Normal Negative [facility] UA Auto SS WBC LM.HPF (Urine sed) [#/Area] 0-5 /HPF Normal 0-5/HPF [facility] UA Auto SS Urinalysison 08-04-2023 Bacteria LM Ql (Urine sed) TRACE Normal Trace [facility] Comment on above: Performed By: #### 1 [id number] ####[facility] [address] [place] [address] Bilirubin Ql (U) Negative Normal Negative [facility] Comment on above: Performed By: #### 1 [id number] ####[facility] [address] [place] [address] Clarity (U) CLEAR Normal Clear [facility] Comment on above: Performed By: #### 1 [id number] ####[facility] [address] [facility] [place] [address] Color (U) YELLOW Normal Yellow [facility] Comment on above: Performed By: #### 1 [id number] ####[facility] [address] [place] [address] Crystals LM Ql (Urine sed) Present Normal [facility] Comment on above: Performed By: #### 1 4553441 ####[facility] [address] [place] [address] Epithelial cells.squamous LM.HPF (Urine sed) [#/Area] 0-2 Normal 0-2 [facility] Comment on above: Performed By: #### 1 [id number] ####[facility] [address] [place] [address] Glucose Test strip (U) [Mass/Vol] Negative Normal Negative [facility] Comment on above: Performed By: #### 1 2920214 ####[facility] [address] [place] [address] Hemoglobin Ql (U) Negative Normal Negative [facility] Comment on above: Performed By: #### 1 9823425 ####[facility] [address] [place] [address] Ketones (U) [Mass/Vol] Negative Normal Negative [facility] Comment on above: Performed By: #### 1 [id number] ####[facility] [address] [place] [address] Imperial.plasma/Lithiu m.RBC (Bld) [Mass ratio] 0-3 Normal 0-3 [facility] Comment on above: Performed By: #### 1 [id number] ####[address] [address] Nitrite Ql (U) Negative Normal Negative [facility] Comment on above: Performed By: #### 1 8923790 ####[place] [address] pH (U) 6.0 [pH] Invalid Interpretation Code 5.0-9.0 [facility] Comment on above: Performed By: #### 1 [id number] ####[place] [address] Protein (U) [Mass/Vol] Negative Normal Negative [facility] Comment on above: Performed By: #### 1 [id number] ####[place] [address] Specific gravity (U) [Rel density] <=1.005 Invalid Interpretation Code 1.005-1.030 [facility] Comment on above: Performed By: #### 1 [id number] ####[place] [address] Type of Urine collection method Clean Catch Normal [facility] Comment on above: Performed By: #### 1 [id number] ####[place] [address] Urobilinogen Qn (U) 0.2 {Denny'U}/dL Normal 0.0-1.0 [facility] Comment on above: Performed By: #### 1 [id number] ####[address] [address] WBC Auto Ql (U) Negative Normal Negative [facility] Comment on above: Performed By: #### 1 5575977 ####[address] [address] WBC LM.HPF (Urine sed) [#/Area] 0-5 Normal 0-5 [facility] Comment on above: Performed By: #### 1 [id number] ####[facility] [address] [place] [address] Physician Referralon 023 Physician Referral [id number] #1.00TIFF Normal [facility] Lab Reportson 08-02-2023 Lab Reports [id number] #1.00TIFF Normal [facility] Ambulatory Visit Summaryon 1 Ambulatory Visit Summary MARCELLE DEUTSCH :1960 Visit Date:07/19/2023 Ambulatory Visit Instructions Your Diagnosis BMI 28.0-28.9,adult Non-smoker Hematuria Kidney stone Left flank pain Dysuria Tests Performed Urnls Dip Stick Non-Auto w/o Micrscpy POC 27678 Your Care Team Attending Physician - Karen [...] Appointments Monday 8:00 AM EDT With: Where: [facility] Normal [address] [place] [address]- \.br\ Medications\.br \ What How Much When Why Instructions\.b r\ New tamsulosin (Flomax 0.4 mg Cap) 1 Capsules By Mouth Every day BMI 28.0-28.9,adult Non-smoker Hematuria Kidney stone Left flank pain Dysuria Pickup at [facility]/pharmacy #2201\.br\ Unchanged amlodipine (amLODIPine 5 mg Tab) By [...] day (in the evening)\.br\ Pharmacy Information\.br \ [facility]/pharmacy #[id number]: [address], [place] [phone]\.br\ Test Results\.br\ Urnls Dip Stick Non-Auto w/o Micrscpy POC 84869 (07/19/2023)\.b r\ Bilirubin Urine Dipstick - Negative\.br\ Blood Urine Dipstick - 3+ Large\.br\ Glucose Urine Dipstick - Negative\.br\ Ketones Urine Dipstick - Negative\.br\ Leukocytes Urine Dipstick - Negative\.br\ Nitrite Urine Dipstick - Negative\.br\ Protein Urine Dipstick - Negative\.br\ Specific [place] Urine Dipstick - <=1.005\.br\ Urine Appearance Urine Dipstick - Clear\.br\ Urine Color Urine Dipstick - Light yellow\.br\ Urobilinogen Urine Dipstick - Normal 0.2-1 EU/dl\.br\ pH Urine Dipstick - 7\.br\ Allergies\.br\ penicillins\.br \ Problems\.br\ Ongoing - Any problem that you are currently receiving treatment for.\.br\ BMI 28.0-28.9,adult \.br\ CAD in [place] artery\.br\ Controlled type 2 diabetes mellitus without [...] Dyslipidemia\.b r\ Hypertension\.b r\ Metabolic syndrome\.br\ \.br\ [facility] Ambulatory Visit Summary MARCELLE DEUTSCH :1960 Visit Date:07/19/2023 Ambulatory Visit Instructions Your Diagnosis BMI 28.0-28.9,adult Non-smoker Hematuria Kidney stone Left flank pain Dysuria Tests Performed Urnls Dip Stick Non-Auto w/o Micrscpy POC 16412 Your Care Team Attending Physician - Karen [...] Appointments Monday 8:00 AM EDT With: Where: [facility] Normal [address] [place] [id number]- \.br\ Medications\.br \ What How Much When Why Instructions\.b r\ New tamsulosin (Flomax 0.4 mg Cap) 1 Capsules By Mouth Every day BMI 28.0-28.9,adult Non-smoker Hematuria Kidney stone Left flank pain Dysuria Pickup at [facility]/pharmacy #0744\.br\ Unchanged amlodipine (amLODIPine 5 mg Tab) By [...] day (in the evening)\.br\ Pharmacy Information\.br \ [facility]/pharmacy #[id number]: [address], [place] [phone]\.br\ Test Results\.br\ Urnls Dip Stick Non-Auto w/o Micrscpy POC 13167 (07/19/2023)\.b r\ Bilirubin Urine Dipstick - Negative\.br\ Blood Urine Dipstick - 3+ Large\.br\ Glucose Urine Dipstick - Negative\.br\ Ketones Urine Dipstick - Negative\.br\ Leukocytes Urine Dipstick - Negative\.br\ Nitrite Urine Dipstick - Negative\.br\ Protein Urine Dipstick - Negative\.br\ Specific [place] Urine Dipstick - <=1.005\.br\ Urine Appearance Urine Dipstick - Clear\.br\ Urine Color Urine Dipstick - Light yellow\.br\ Urobilinogen Urine Dipstick - Normal 0.2-1 EU/dl\.br\ pH Urine Dipstick - 7\.br\ Allergies\.br\ penicillins\.br \ Problems\.br\ Ongoing - Any problem that you are currently receiving treatment for.\.br\ BMI 28.0-28.9,adult \.br\ CAD in [place] artery\.br\ Controlled type 2 diabetes mellitus without [...] r\ Hypertension\.b r\ Metabolic syndrome\.br\ \.br\ [facility] Family Medicine Office/Clini c Noteon 07-19-2023 Family [...] Daily, # 10 cap(s), Refills(s) 0, Pharmacy: [facility]/pharmacy #[id number], 178, cm, 07/19/23 11:20:00 EDT, Height/Length Dosing, 89.2, kg, 07/19/23 11:20:00 EDT, Weight Dosing Urnls Dip Stick Non-Auto w/o Micrscpy POC 50705 2. Hematuria (R31.9: Hematuria, unspecified) large blood in urinalysis in office. everything else negative Ordered: tamsulosin, 0.4 mg = 1 cap(s), Oral, Daily, # 10 cap(s), Refills(s) 0, Pharmacy: [facility]/pharmacy #6150, 178, cm, 07/19/23 11:20:00 EDT, Height/Length Dosing, 89.2, kg, 07/19/23 11:20:00 EDT, Weight Dosing Urnls Dip Stick Non-Auto w/o Micrscpy POC 08338 3. Kidney stone (N20.0: Calculus of kidney) will order flomax. if symptoms worsen will order KUB Ordered: tamsulosin, 0.4 mg = 1 cap(s), Oral, Daily, # 10 cap(s), Refills(s) 0, Pharmacy: [facility]/pharmacy #6177, 178, cm, 07/19/23 11:20:00 EDT, Height/Length Dosing, 89.2, kg, 07/19/23 11:20:00 EDT, Weight Dosing 4. Dysuria (R30.0: Dysuria) pt states the pain is improving Ordered: tamsulosin, 0.4 mg = 1 cap(s), Oral, Daily, # 10 cap(s), Refills(s) 0, Pharmacy: [facility]/pharmacy #6177, 178, cm, 07/19/23 11:20:00 EDT, Height/Length Dosing, 89.2, kg, 07/19/23 11:20:00 EDT, Weight Dosing Urnls Dip Stick Non-Auto w/o Micrscpy POC 82749 5. Non-smoker (Z78.9: Other specified health status) continue not smoking Ordered: tamsulosin, 0.4 mg = 1 cap(s), Oral, Daily, # 10 cap(s), Refills(s) 0, Pharmacy: [facility]/pharmacy #6177, 178, cm, 07/19/23 11:20:00 EDT, Height/Length Dosing, 89.2, kg, 07/19/23 11:20:00 EDT, Weight Dosing Urnls Dip Stick Non-Auto w/o Micrscpy POC 54439 6. BMI 28.0-28.9,adult (Z68.28: Body mass index [BMI] 28.0-28.9, adult) BMI education complete Ordered: tamsulosin, 0.4 mg = 1 cap(s), Oral, Daily, # 10 cap(s), Refills(s) 0, Pharmacy: [facility]/pharmacy #6177, 178, cm, 07/19/23 11:20:00 EDT, Height/Length Dosing, 89.2, kg, 07/19/23 11:20:00 EDT, Weight Dosing Urnls Dip Stick Non-Auto w/o Micrscpy POC 78704 Follow-up No qualifying data available Problem List/Past Medical History Ongoing BMI 28.0-28.9,adult CAD in [place] artery Controlled type 2 diabetes mellitus without [...] Risk, 08/29/ (more content not included)... Normal [facility] Comment on above: Result Comment: Elec tronically Signed By: Karen Deleon\.jp\Date and Time Signed: 07/19/23 17:48 EDT PSA Free & Totalon 3 Free PSA/Total PSA [Mass fraction] [facility] Abnormal >=25.0 [facility] Comment on above: Result Comment: Resu [...] SO, 1998; 279:1542-7 Performed By: #### 1 [id number], [id number] ####[facility] [address] [place] [address] Free PSA [Mass/Vol] <0.1 Invalid Interpretation Code [facility] Comment on above: Result Comment: The concentration of free PSA and total PSA determined with assays from different manufacturers can vary due to differences in assay methods and specificity. Values obtained with different toe puller's assays cannot be used interchangeably. The methodology used to obtain this result was chemiluminescence using [employer]'s Access Hybritech PSA reagent and Access Hybritech free PSA reagent. Performed By: #### 1 [id number], [id number] ####[facility] [address] [place] [address] Prostate specific Ag [Mass/Vol] 0.2 ng/mL Normal 0.1-3.5 [facility] Comment on above: Result Comment: The concentration of PSA determined by different manufacturers can vary due to differences in assay methods and reagent specificity. Values obtained from different assay methods cannot be used interchangeably. The methodology used for this result was chemiluminescence using [employer]'s Access Hybritech PSA reagent. Performed By: #### 1 [id number], [id number] ####[facility] [address] [place] [address] CHEMISTRYOrdered By: Julien merida on 07-04-2023 Albumin DL <= 20 mg/L (U) [Mass/Vol] microgram/mL Normal 0.0 - 19.0 mcg/mL [facility] Remisol Albumin Elph (U) [Mass fraction] mg/dL Invalid Interpretation Code [facility] Remisol Creatinine (U) [Mass/Vol] 17.7 mg/dL Invalid Interpretation Code [facility] Remisol U Prot/Creat Ratio [facility] Invalid Interpretation Code 0.00 - 200.00 [facility] Remisol U Microalbon 07-04-2023 Albumin DL <= 20 mg/L (U) [Mass/Vol] mg/dL Normal 0.0-19.0 [facility] Comment on above: Performed By: #### 1 [id number], [id number] ####[facility] [address] [place] [address] U Protein/Creat Ratioon 06-16 Albumin Elph (U) [Mass fraction] <6.0 Invalid Interpretation Code [facility] Comment on above: Result Comment: The reference range and other method performance specifications have not been established for this test; results should be integrated into the clinical context for interpretation. Performed By: #### 1 [id number], [id number] ####[facility] [address] [place] [address] Creatinine (U) [Mass/Vol] 17.7 mg/dL Invalid Interpretation Code [facility] Comment on above: Result Comment: The reference range and other method performance specifications have not been established for this test; results should be integrated into the clinical context for interpretation. Performed By: #### 1 [id number], [id number] ####[facility] [address] [place] [address] U Prot/Creat Ratio [facility] Invalid Interpretation Code .00-200.00 [facility] Comment on above: Performed By: #### 1 [id number], [id number] ####[facility] [address] [place] [address] Ambulatory Visit Summaryon 0 07-03-2023 Ambulatory Visit [...] Appointments Monday 8:00 AM EDT With: Where: [facility] Normal [address] \.br\ Medications\.br \ What How Much When Instructions\.b r\ Changed omeprazole (omeprazole 20 mg Cap-DR) 1 Capsules By Mouth Every day Pickup at [facility]\.br\ Unchanged diltiazem (diltiazem 30 mg Tab) See [...] or concerns \.br\ Pharmacy Information\.br \ [facility]: [facility] [address] [place] [address] [phone]\.br\ Allergies\.br\ penicillins\.br \ Problems\.br\ Ongoing - Any problem that you are currently receiving treatment for.\.br\ BMI 28.0-28.9,adult \.br\ CAD in [place] artery\.br\ Controlled type 2 diabetes mellitus without complication, without long-term current use of insulin\.br\ Excess ear wax\.br\ GERD without esophagitis\.br \ Longstanding persistent atrial fibrillation\.b r\ Mixed hyperlipidemia\ .br\ Non-smoker\.br\ Primary hypertension\.b r\ Screening for colon cancer\.br\ Screening for prostate cancer\.br\ Historical - Any problem that you are no longer receiving treatment for.\.br\ Atrial fibrillation\.b r\ Dyslipidemia\.b r\ Hypertension\.b r\ Metabolic syndrome\.br\ \.br\ [facility] CHEMISTRYOrdered By: Bobby roman on 07-03-2023 HbA1c (Bld) [Mass fraction] 6.8 % High <=5.9% [facility] ChemAutoSS Family Medicine Office/Clini c Noteon 07-03-2023 Family Medicine Office/Clinic Note HPI Staff Marcelle is a 63 year old male presenting for a full physical exam Health Maintenance: Colonoscopy: coloard 3 years ago, due PSA: ?? Last Labs: [facility] he's unsure when no results in file [...] didn't feel it was a problem email [email or web address] go on refill omeprazole to [facility] History of Present Illness - Here for [...] Daily, # 30 tab(s), Refills(s) 0, Pharmacy: [facility]/pharmacy #6177 omeprazole, 20 mg = 1 cap(s), Oral, Daily, # 90 cap(s), Refills(s) 1, Pharmacy: [facility], 178, cm, 07/03/23 7:24:00 EDT, Height/Length Dosing, 90, kg, 07/03/23 7:24:00 EDT, Weight Dosing - Follow up in 6 months for Welcome to medicare. Follow-up No qualifying data available Problem List/Past Medical History Ongoing BMI 28.0-28.9,adult CAD in [place] artery Controlled type 2 diabetes mellitus without complication, without long-term current use of insulin Excess ear wax GERD without esophagitis Longstanding (more content not included)... Normal [facility] Comment on above: Result Comment: Elec tronically Signed By: Km NIELSON, Ursula Luis.br\Date and Time Signed: 07/03/23 07:50 EDT Formson 07-03-2023 Forms [id number] #1.00CD:127 Normal [facility] Forms [id number]# 1.00CD:127 Normal [facility] [id number] 07-03-2023 HbA1c (Bld) [Mass fraction] 6.8 % High <=5.9 [facility] Comment on above: Performed By: #### 1 [id number], [id number] ####[facility] [address] [place] [address] Consultation Noteon 06-28-20 Consultation Note [id number] #1.00CD:127 Normal [facility] Office Visiton 06-21-2023 Follow-up visit [id number] Marcelle Deutsch 1960 M Date Provider Department Center 06/21/2023 BLANKA LOMELI CARD [facility] Family History Problem Relation Age of Onset Coronary artery disease Father Atrial fibrillation Father Heart attack Brother Family Status - Relation Status Age at Father Brother Level of Service:42929 MS OFFICE/OUTPATIENT ESTABLISHED LOW MDM 20-29 MIN Reason for Visit and Comments: Follow-up [234911] - 6 month F/U Normal [facility] CBC AUTO DIFFon 01-04-2023 BASO # 0.1 103/ul Normal 0.0-0.1 [facility] Comment on above: Performed By: #### C BC #### [facility] [address] [address] [address] Lucia San Basophils/100 WBC (Bld) 1.0 % Normal 0.2-2.0 [facility] Comment on above: Performed By: #### C BC #### [facility] [address] [place] [address] Dr. Lucia San EO # 0.1 103/ul Normal 0.0-0.7 [facility] Comment on above: Performed By: #### C BC #### [facility] [address] [address] [address] Lucia San Eosinophils/100 WBC (Bld) 2.5 % Normal 0.9-7.0 [facility] Comment on above: Performed By: #### C BC #### [facility] [address] [place] [address] Dr. Lucia San Erythrocyte distribution width (RBC) [Ratio] 17.3 % Critically high 11.0-15.0 [facility] Comment on above: Performed By: #### C BC #### [facility] [address] [address] [address] Lucia San Hematocrit (Bld) [Volume fraction] 35.2 % Critically low 42.0-54.0 [facility] Comment on above: Performed By: #### C BC #### [facility] [address] [place] [address] Dr. Lucia San Hemoglobin (Bld) [Mass/Vol] 11.3 g/dL Critically low 14.0-18.0 [facility] Comment on above: Performed By: #### C BC #### [facility] [address] [place] [address] Dr. Lucia San IG # 0.02 10e3/ul Normal 0.00-0.03 [facility] Comment on above: Performed By: #### C BC #### [facility] [address] [place] [address] Dr. Lucia San IG % 0.4 % Normal 0.0-0.5 [facility] Comment on above: Performed By: #### C BC #### [facility] [address] [place] [address] Dr. Lucia San LYMPH # 1.6 103/ul Normal 1.2-3.8 [facility] Comment on above: Performed By: #### C BC #### [facility] [address] [place] [address] Dr. Lucia San Lymphocytes/100 WBC (Bld) 30.9 % Normal 20.5-60.0 [facility] Comment on above: Performed By: #### C BC #### [facility] [address] [place] [address] Dr. Lucia San MANUAL DIFF REQ NO Normal [facility] Comment on above: Performed By: #### C BC #### [facility] [address] [place] [address] Dr. Lucia San MCH (RBC) [Entitic mass] 23.9 pg Critically low 25.9-34.0 [facility] Comment on above: Performed By: #### C BC #### [facility] [address] [place] [address] Dr. Lucia San MCHC (RBC) [Mass/Vol] 32.1 g/dL Normal 29.9-35.2 [facility] Comment on above: Performed By: #### C BC #### [facility] [address] [place] [address] Dr. Lucia San MCV (RBC) [Entitic vol] 74.6 fL Critically low 80.0-94.0 [facility] Comment on above: Performed By: #### C BC #### [facility] [address] [place] [address] Dr. Lucia San MONO # 0.5 103/ul Normal 0.3-0.8 [facility] Comment on above: Performed By: #### C BC #### [facility] [address] [place] [address] Dr. Lucia San Monocytes/100 WBC (Bld) 9.1 % Normal 1.7-12.0 [facility] Comment on above: Performed By: #### C BC #### [facility] [address] [place] [address] Dr. Lucia San NEUT # 2.9 103/ul Normal 1.4-6.5 [facility] Comment on above: Performed By: #### C BC #### [facility] [address] [place] [address] Dr. Lucia San Neutrophils/100 WBC (Bld) 56.1 % Normal 43.0-75.0 [facility] Comment on above: Performed By: #### C BC #### [facility] [address] [place] [address] Dr. Lucia San Platelet mean volume (Bld) [Entitic vol] 11.6 fL Normal 9.5-13.5 [facility] Comment on above: Performed By: #### C BC #### [facility] [address] [place] [address] Dr. Lucia San PLT 172 103/ul Normal 150-450 [facility] Comment on above: Performed By: #### C BC #### [facility] [address] [place] [address] Dr. Lucia San RBC 4.72 106/ul Normal 4.70-6.10 [facility] Comment on above: Performed By: #### C BC #### [facility] [address] [place] [address] Dr. Lucia San WBC 5.2 103/ul Normal 4.0-11.0 [facility] Comment on above: Performed By: #### C BC #### [facility] [address] [place] [address] Dr. Lucia San ECHOCARDIO M/2D COMPLETEon 0 01-04-2023 ECHOCARDIO M/2D COMPLETE Patient: MARCELLE DEUTSCH Exam Date: 01/04/2023 : 1960 Gender:M Ordering : DR BLANKA GORE M.D. Admission #: [id number] Family : Order #: [id number] CLICK HERE TO VIEW EXAM ECHOCARDIOGRAM REPORT [...] Area (VTI): 3.28 cm2, 3.28 cm2 Deceleration [place]: 0.48 m/s2 Pressure Half-Time: 1.33 s Peak [...] [place] M.D. on 01/04/2023 at 15:00 Normal [facility] GLYCOHEMOGLOBIN A1Con 2022 ADA RECOMMENDATION SEE BELOW Normal [facility] Comment on above: Result Comment: ADA RECOMMENDED LIMIT 4.0 - 6.0 ADA THERAPEUTIC TARGET < 7.0 ACTION SUGGESTED > 7.0 Performed By: #### A 1C #### [facility] [address] [address] [address] Lucia San HbA1c (Bld) [Mass fraction] 6.9 % Critically high 4.5-6.2 [facility] Comment on above: Performed By: #### A 1C #### [facility] [address] [address] [address] Lucia San LIPID PROFILEon 01-04-2023 CHOL-HDL RATIO NORM SEE BELOW Normal [facility] Comment on above: Result Comment: 3.3 - 4.4 LOW RISK 4.4 - 7.1 AVERAGE RISK 7.1 - 11.0 MODERATE RISK >11.0 HIGH RISK Performed By: #### L IPID #### [facility] [address] [place] [address] Dr. Lucia San Cholesterol [Mass/Vol] 140 mg/dL Normal <=200 [facility] Comment on above: Performed By: #### L IPID #### [facility] [address] [place] [address] Dr. Lucia San Cholesterol in HDL [Mass/Vol] 37 mg/dL Critically low 40-60 [facility] Comment on above: Performed By: #### L IPID #### [facility] [address] [place] [address] Dr. Lucia San Cholesterol in LDL [Mass/Vol] 80.2 mg/dL Normal [facility] Comment on above: Performed By: #### L IPID #### [facility] [address] [address] [address] Lucia San Cholesterol.total/Cho lesterol in HDL [Mass ratio] 3.8 {ratio} Normal [facility] Comment on above: Performed By: #### L IPID #### [facility] [address] [place] [address] Dr. Lucia San HDL NORMAL > or = 60 mg/dl - LOW CARDIOVASCULAR RISK <40 mg/dl - HIGH CARDIOVASCULAR RISK Normal [facility] Comment on above: Performed By: #### L IPID #### [facility] [address] [place] [address] Dr. Lucia San LDL CALC NORMAL SEE BELOW Normal [facility] Comment on above: Result Comment: <100 mg/dl OPTIMAL 100 - 129 mg/dl NEAR OR ABOVE OPTIMAL 130 - 159 mg/dl BORDERLINE HIGH 160 - 189 mg/dl HIGH >190 mg/dl VERY HIGH Performed By: #### L IPID #### [facility] [address] [address] [address] Lucia San Triglyceride [Mass/Vol] 114 mg/dL Normal <=150 [facility] Comment on above: Performed By: #### L IPID #### [facility] [address] [address] [address] Lucia San VLDL CALC 22.8 mg/dL Normal [facility] Comment on above: Performed By: #### L IPID #### [facility] [address] [address] [address] Lucia San MICROALBUMIN, RAND URon 12-15 mALB 1.5 mg/L Normal <=30.0 [facility] Comment on above: Performed By: #### M ALBR #### [facility] [address] [address] [address] Lucia San NM STRESS/REST MULTIon 01-04 NM STRESS/REST MULTI Patient: MARCELLE DEUTSCH Exam Date: 01/04/2023 : 1960 Gender:M Ordering : DR BLANKA GORE M.D. Admission #: [id number] Family : Order #: [id number] CLICK HERE TO VIEW EXAM RADIOLOGY REPORT [...] LOCATION: Basal inferior. Mid-anterior. Mid-inferior. Apical inferior. [place]. SIZE: Large (5 or more segments). SEVERITY: [...] Guzman MD on 01/04/2023 at 11:17 Normal [facility] PROF 14(COMP METB)on 023 Albumin [Mass/Vol] 4.1 g/dL Normal 3.4-5.0 [facility] Comment on above: Performed By: #### C MP #### [facility] [address] [place] [address] Dr. Lucia San Albumin/Globulin [Mass ratio] 1.7 {ratio} Normal [facility] Comment on above: Performed By: #### C MP #### [facility] [address] [place] [address] Dr. Lucia San ALP [Catalytic activity/Vol] 51 U/L Normal 46-116 [facility] Comment on above: Performed By: #### C MP #### [facility] [address] [place] [address] Dr. Lucia San ALT [Catalytic activity/Vol] 49 U/L Normal 16-63 [facility] Comment on above: Performed By: #### C MP #### [facility] [address] [place] [address] Dr. Lucia San Anion gap [Moles/Vol] 16.6 mmol/L Normal [facility] Comment on above: Performed By: #### C MP #### [facility] [address] [address] [address] Lucia San AST [Catalytic activity/Vol] 28 U/L Normal 15-37 [facility] Comment on above: Performed By: #### C MP #### [facility] [address] [place] [address] Dr. Lucia San Bilirubin [Mass/Vol] 1.7 mg/dL Critically high 0.2-1.0 [facility] Comment on above: Performed By: #### C MP #### [facility] [address] [place] [address] Dr. Lucia San Calcium [Mass/Vol] 9.2 mg/dL Normal 8.5-10.1 [facility] Comment on above: Performed By: #### C MP #### [facility] [address] [place] [address] Dr. Lucia San Chloride [Moles/Vol] 100 mmol/L Normal 98-107 [facility] Comment on above: Performed By: #### C MP #### [facility] [address] [place] [address] Dr. Lucia San CO2 [Moles/Vol] 25.9 mmol/L Normal 21.0-32.0 [facility] Comment on above: Performed By: #### C MP #### [facility] [address] [place] [address] Dr. Lucia San Creatinine [Mass/Vol] 1.03 mg/dL Normal 0.70-1.30 [facility] Comment on above: Performed By: #### C MP #### [facility] [address] [place] [address] Dr. Lucia San EGFR-AF TUVALUAN >60 Normal >=60 [facility] Comment on above: Performed By: #### C MP #### [facility] [address] [place] [address] Dr. Lucia San EGFR-NON AF TUVALUAN >60 Normal >=60 [facility] Comment on above: Performed By: #### C MP #### [facility] [address] [place] [address] Dr. Lucia San Globulin (S) [Mass/Vol] 2.4 g/dL Normal [facility] Comment on above: Performed By: #### C MP #### [facility] [address] [place] [address] Dr. Lucia San Glucose [Mass/Vol] 151 mg/dL Normal [facility] Comment on above: Performed By: #### C MP #### [facility] [address] [place] [address] Dr. Lucia San Performed By: #### A 1C #### [facility] [address] [place] [address] Dr. Lucia San Potassium [Moles/Vol] 4.5 mmol/L Normal 3.5-5.1 [facility] Comment on above: Performed By: #### C MP #### [facility] [address] [place] [address] Dr. Lucia San Protein [Mass/Vol] 6.5 g/dL Normal 6.4-8.2 [facility] Comment on above: Performed By: #### C MP #### [facility] [address] [place] [address] Dr. Lucia San Sodium [Moles/Vol] 138 mmol/L Normal 136-145 [facility] Comment on above: Performed By: #### C MP #### [facility] [address] [place] [address] Dr. Lucia San Urea nitrogen [Mass/Vol] 13.0 mg/dL Normal 7.0-18.0 [facility] Comment on above: Performed By: #### C MP #### [facility] [address] [place] [address] Dr. Lucia San Urea nitrogen/Creatinine [Mass ratio] 12.6 mg/mg Normal [facility] Comment on above: Performed By: #### C MP #### [facility] [address] [place] [address] Dr. Lucia Rondon 02-03-2022 CNOV Office Visit (CARDMN) MARCELLE DEUTSCH ([id number]) 1960 M Date Time Provider Department 02/03/22 8:30 AM JANNET GONZALEZ During your visit today, we recorded the following information about you: Pulse Blood pressure Weight Height 60/minute 180/76 85.3 kg 1.765 m Jannet Gonzalez MD 02/03/2022 9:58 AM Signed [facility] [place] Emiliano Plascencia Department of Cardiovascular Medicine SECTION OF CARDIAC PACING and ELECTROPHYSIOLOGY OUTPATIENT VISIT DATE February 03, 2022 OUTPATIENT VISIT TYPE CONSULTATION PRIMARY CARE PHYSICIAN: Mark Browning DO [address] [place] [address] CHIEF COMPLAINT: PAF HISTORY OF PRESENT ILLNESS [...] he is in SR. He denies syncope. [id number] (HTN, CAD, DM) tolerating Xarelto PAST MEDICAL HISTORY Diagnosis Date - Atrial fibrillation (HCC) 2013 - CAD (coronary artery disease) 09/02/2014 - Diabetes mellitus (HCC) - Dyslipidemia - Hypertension - Metabolic syndrome PAST SURGICAL HISTORY Procedure Laterality Date - AFIB PVI W/COMPL EP STUDY 07/10/2017 - CARDIAC CATH 09/02/2014 SENIOR MILITARY ANALYST of proximal RCA. 70% ostial D1. Preserved [...] sweating-No, Frequen (more content not included)... Normal [facility] CNCOon 12-04-2021 CNCO Letter Text Normal [facility] Dermatopathologyon 0 Dermatopathology [facility] Laboratory [address] [place] [id number] DERMATOPATHOLOGY REPORT Name:MARCELLE DEUTSCH Rec #. [id number] Location: [facility] Date of Procedure: 10/02/2020 Race: Unknown Date Received: 10/06/2020 /Sex: 1960 (Age: 60) / M Date Reported: 10/08/2020 Other: Submitting Physician:SONIA GREEN APRN, CONTINUOUS MINING OPERATOR-C FINAL DIAGNOSIS A. SKIN, (R) NECK, [...] is a mayers piece of skin measuring [id number] in aggreg (small). The specimen is inked and embedded in toto. B: Received in formalin is a mayers piece of skin measuring [id number]. The specimen is inked and embedded in toto. /10/06/2020 Microscopic Description: A,B: Microscopic examination performed. Normal [facility] Comment on above: Performed By: #### D #### Dermatopathology Vital Signs Date Time Vital Sign Value Performing Clinician Facility 03-14-2024 10:16-0400 Body temperature 97.52 [degF] [facility] 03-14-2024 10:16-0400 Diastolic blood pressure 85 mm[Hg] [facility] 03-14-2024 10:16-0400 Heart rate 59 /min [facility] 03-14-2024 10:16-0400 Mean blood pressure 116 mm[Hg] [facility] 03-14-2024 10:16-0400 Respiratory rate 16 /min [facility] [employer] 03-14-2024 10:16-0400 SaO2% (BldA) [Mass fraction] 99 % [facility] 03-14-2024 10:16-0400 Systolic blood pressure 179 mm[Hg] [facility] [employer] [facility] 02-15-2024 13:10-0400 Blood Pressure Location Ana Spencer [facility] 02-15-2024 13:10-0400 Body temperature 98.06 [degF] Ana Spencer [facility] 02-15-2024 13:10-0400 Diastolic blood pressure 61 mm[Hg] Ana Spencer [facility] 02-15-2024 13:10-0400 Heart rate 62 /min Ana Spencer [facility] 02-15-2024 13:10-0400 Mean blood pressure 77 mm[Hg] Ana Spencer [facility] 02-15-2024 13:10-0400 Respiratory rate 16 /min Ana Spencer [facility] 02-15-2024 13:10-0400 SaO2% (BldA) [Mass fraction] 99 % Ana Spencer [facility] 02-15-2024 13:10-0400 Systolic blood pressure 108 mm[Hg] Ana Spencer [facility] 02-08-2024 13:00-0400 Blood Pressure Location Ana Spencer [facility] 02-08-2024 13:00-0400 Body temperature 98.24 [degF] Ana Spencer [facility] 02-08-2024 13:00-0400 Diastolic blood pressure 82 mm[Hg] Ana Spencer [facility] 02-08-2024 13:00-0400 Heart rate 80 /min Ana Spencer [facility] 02-08-2024 13:00-0400 SaO2% (BldA) [Mass fraction] 100 % Ana Spencer [facility] 02-08-2024 13:00-0400 Systolic blood pressure 142 mm[Hg] Ana Spencer [facility] 01-25-2024 08:58-0400 Diastolic blood pressure 82 mm[Hg] Ana Spencer [facility] 01-25-2024 08:58-0400 Heart rate 65 /min Ana Spencer [facility] 01-25-2024 08:58-0400 Mean blood pressure 118 mm[Hg] Ana Spencer [facility] 01-25-2024 08:58-0400 SaO2% (BldA) [Mass fraction] 99 % Ana Spencer [facility] 01-25-2024 08:58-0400 Systolic blood pressure 190 mm[Hg] Ana Spencer [facility] 08-16-2023 08:21-0400 Blood Pressure Location Shelley Lue [facility] 08-16-2023 08:21-0400 Diastolic blood pressure 83 mm[Hg] Shelley [facility]ue [facility] 08-16-2023 08:21-0400 Heart rate 69 /min Shelley Lue [facility] 08-16-2023 08:21-0400 Respiratory rate 16 /min Shelley Lue [facility] 08-16-2023 08:21-0400 Systolic blood pressure 166 mm[Hg] Shelley Lue [facility] Encounters Encounter Date Encounter Type Care Provider Facility Start: 04-11-2024 End: 04-11-2024 ambulatory Ana Spencer [facility] Start: 04-11-2024 End: 04-11-2024 Patient encounter procedure Ana Spencer [facility] Start: 03-26-2024 End: 03-26-2024 ambulatory Ursula Love Facility:[facility] Start: 03-22-2024 End: 04-09-2024 ambulatory MD Ursula Love Facility:[facility] Start: 03-14-2024 End: 03-14-2024 ambulatory Ana Spencer [facility] Start: 03-14-2024 End: 03-14-2024 Patient encounter procedure Ana Spencer [facility] Start: 03-12-2024 End: 03-12-2024 ambulatory Ana Spencer Facility[facility] Start: 03-12-2024 End: 03-12-2024 Patient encounter procedure Ana Spencer [facility] Start: 02-15-2024 End: 02-15-2024 ambulatory Ana Spencer Facility[facility] Start: 02-15-2024 End: 02-15-2024 Patient encounter procedure Ana Spencer [facility] Start: 02-08-2024 End: 02-08-2024 ambulatory Ana Spencer Facility:[facility] Start: 02-08-2024 End: 02-08-2024 Patient encounter procedure Ana Spencer [facility] Start: 02-01-2024 End: 02-01-2024 ambulatory Ana Spencer Facility[facility] Start: 02-01-2024 End: 02-01-2024 Patient encounter procedure Ana Spencer [facility] Start: 01-25-2024 End: 02-07-2024 [facility] Start: 01-25-2024 End: 01-25-2024 Patient encounter procedure Ana Spencer [facility] Start: 01-16-2024 End: 01-16-2024 ambulatory Bharath Melton Facility:[facility] Start: 01-16-2024 End: 01-16-2024 Patient encounter procedure Bharath Melton [facility] Start: 12-29-2023 End: 12-29-2023 ambulatory [facility] Start: 12-28-2023 End: 12-28-2023 ambulatory Ursula Love Facility:[facility] Start: 12-27-2023 End: 12-27-2023 ambulatory Ursula Love Facility[facility] Start: 12-27-2023 End: 12-27-2023 Patient encounter procedure Ursula Love [facility] Start: 12-19-2023 ambulatory Ursula Love Facility :[id number] Start: 12-18-2023 End: 12-18-2023 Lab Drop off Ursula Love [facility] Start: 12-18-2023 End: 12-18-2023 ambulatory Ursula Love Facility[facility] Start: 12-18-2023 End: 12-18-2023 ambulatory [facility] Start: 10-04-2023 End: 10-04-2023 [facility]ulatory [facility] Start: 10-04-2023 End: 10-04-2023 Patient encounter procedure Jose Luis R NILL [facility] [place] Start: 09-20-2023 End: 09-20-2023 ambulatory Jose Luis THOMAS Facility:[id number] Start: 08-29-2023 End: 08-29-2023 ambulatory Ursula Love Facility:[facility] [place] Start: 08-16-2023 End: 08-16-2023 ambulatory Ursula Love Facility:[facility] [place] Start: 08-16-2023 End: 08-16-2023 Patient encounter [facility] Start: 08-08-2023 ambulatory Jose Luis THOMAS Facility:[facility] Start: 08-07-2023 End: 08-07-2023 ambulatory Ursula Love Facility:[facility] Start: 08-07-2023 End: 08-07-2023 Patient encounter procedure Ursula Love [facility] Start: 08-04-2023 End: 08-04-2023 Lab Drop off Karen Richard Juan Antonio [facility] Start: 08-04-2023 End: 08-04-2023 ambulatory Karen L Juan Antonio Facility[facility] Start: 08-03-2023 ambulatory Jose Luis THOMAS Facility:[facility] [place] Start: 07-19-2023 End: 07-19-2023 ambulatory Karen L Juan Antonio Facility:[facility] [place] Start: 07-04-2023 End: 07-04-2023 ambulatory Ursula Love Facility:[facility] Start: 07-04-2023 End: 07-04-2023 Lab Drop off Ursula Love [facility] Start: 07-03-2023 End: 07-03-2023 Lab Drop off Ursula Love [facility] Start: 07-03-2023 End: 07-03-2023 ambulatory Ursula Love Facility[facility] Start: 06-21-2023 End: 06-21-2023 ambulatory [facility] Start: 01-04-2023 End: 01-05-2023 ambulatory URSULA LOVE Facility: Start: 04-01-2022 End: 04-01-2022 Off-Site Ursula Love [facility] Start: 03-30-2022 End: 03-30-2022 Off-Site Ursula Love [facility] Start: 02-03-2022 Orders Only Jannet Timmons [...] [place] Start: 07-04-2020 DIABETES SCREEN DIABETES SCREEN [facility] Start: 2013 PROSTATE CANCER SCREENING DISCUSSION PROSTATE CANCER SCREENING DISCUSSION [facility] Start: 2008 SHINGRIX VACCINE (1 of 2) SHINGRIX VACCINE (1 of 2) [facility] Start: 2003 COLOGUARD (FIT-DNA) COLOGUARD (FIT-D NA) [facility] Start: 2003 Colonoscopy COLONOSCOPY [facility] Start: 2003 COLORECTAL CANCER SCREENING COLORECTAL CANCER SCREENING [facility] Start: [address] COLONOGRAPHY [facility] Start: 2003 FECAL OCCULT BLOOD FECAL OCCULT BLOO D [facility] Start: 2003 SIGMOIDOSCOPY SIGMOIDOSCOPY [facility] Start: 1993 LIPID SCREEN LIPID SCREEN [facility] Start: 1977 Urine microalbumin profile DTAP,TDAP,TD (1 - Tdap) [facility] Start: 1976 ANNUAL PCP TEAM DISPENSING LEAD SARAH DISEASE VISIT ANNUAL PCP TEAM CHRONIC DISEASE VISIT [facility] Start: 1976 BP CONTROLLED (<130/80) BP CONTROLLE D (<130/80) [facility] Start: 1976 Hepatitis B surface antibody level LDL CHOLESTEROL [facility] Start: 1976 HEPATITIS C SCREENING HEPATITIS C SC REENING [facility] Start: 1976 HIV SCREENING HIV SCREENING [facility] Start: 1970 Adult depression screening assessment DEPRESSION SCREENING [facility] End: 02-03-2023 ECG COMPLETE ECG COMPLETE ECG Routine Persistent atrial fibrillation (HCC) 1 Occurrences starting 02/03/2022 until 02/03/2023 [facility] Work Phone: Comment on above: 1 Occurrences starti ng 02/03/2022 until [facility] Immunization Date Immunization Notes Care Provider Elliot rahman 08-31-2021 SARS-CoV-2 (COVID-19 ) Ad26 vaccine, recombinant Ursula Love [facility] Comment on above: Result Comment: 2021: [id number] 07-23-2021 influenza virus vaccine, unspecified formulation Ursula Love [facility] 12-23-2020 SARS-CoV-2 (COVID-19 ) Ad26 vaccine, recombinant Ursula Love [facility] 07-30-2018 influenza virus vaccine, unspecified formulation Ursula Love [facility] NEGATED: Highlighted row has not occurred!07-03-2023 influenza virus vaccine, unspecified formulation Ursula Love [facility] Payers Date Payer Category Payer Medicare [id number] 2023 Unknown [id number] 2021 Unknown SHELLIE JULIO CÉSAR LAWRENCE PPO [id number] 2021-Present [phone] [address] [place] [address] PPO [id number] 1959 Unknown [id number] 1958 Unknown [id number] 2.16.840.1.188576.3.579.2.593 1958 Unknown [id number] 2.16.840.1.693823.3.579.2.593 1958 Unknown [id number] 2.16.840.1.373288.3.579.2.727 1958 Unknown [id number] 2.16.840.1.072422.3.579.2.727 1958 Unknown [id number] 2.16.840.1.519342.3.579.2.727 1958 Unknown [id number] 2.16.840.1.395923.3.579.2.727 1958 Unknown [id number] 2.16.840.1.734950.3.579.2.727 1958 Unknown [id number] 2.16.840.1.511615.3.579.2.727 1958 Unknown [id number] 2.16.840.1.635803.3.579.2. 1958 Unknown [id number] 2.16.840.1.420968.3.579.2.72 1958 Unknown [id number] 2.16.840.1.561111.3.579.2. 1958 Unknown [id number] 2.16.840.1.134088.3.579.2. 1958 Unknown [id number] 2.16.840.1.398534.3.579.2. 1958 Unknown [id number] 2.16.840.1.490354.3.579.2. 1958 Unknown [id number] 2.16.840.1.907904.3.579.2. 1958 Unknown [id number] 2.16.840.1.326858.3.579.2. 1958 Unknown [id number] 2.16.840.1.175745.3.579.2. 1958 Unknown [id number] 2.16.840.1.309190.3.579.2. 1958 Unknown [id number] 2.16.840.1.418378.3.579.2. 1958 Unknown [id number] 2.16.840.1.589085.3.579.2. 1958 Unknown [id number] 2.16.840.1.937340.3.579.2. 1958 Unknown [id number] 2.16.840.1.463264.3.579.2. 1958 Unknown [id number] 2.16.840.1.068897.3.579.2.727 1958 Unknown [id number] 2.16.840.1.200886.3.579.2.727 1958 Unknown [id number] 2.16.840.1.763145.3.579.2.727 1958 Unknown [id number] 2.16.840.1.070072.3.579.2.727 1958 Unknown [id number] 2.16.840.1.472219.3.579.2.727 1958 Unknown [id number] 2.16.840.1.311413.3.579.2.727 1958 Unknown [id number] 2.16.840.1.344380.3.579.2.727 1958 Unknown [id number] 2.16.840.1.470173.3.579.2.727 Social History Date Type Detail Facility Start: 08-25-2014 End: 03-26-2024 Tobacco smoking status NHIS Ex-smoker [facility] Comment on above: Quit in 2013 after M I quit age 53 (39 pack years) Start: 10-25-1957 End: 08-09-2014 History of tobacco use Current smoker [facility] Start: 10-25-1957 End: 08-09-2014 History of tobacco use Cigarette Smoker [facility] Start: 08-25-2014 End: 02-03-2022 Cigarettes smoked current (pack per day) - Reported 0.5 [facility] Start: 08-25-2014 Tobacco use and exposure Smokeless tobacco non-user [facility] Start: 02-03-2022 Alcohol intake Current drinke r of alcohol (finding) [facility] Start: 1960 Sex Assigned At Not on file [facility] Start: 01-24-2022 End: 02-03-2022 Exposure to SARS-CoV-2 (event) Not sure [facility] Tobacco smoking status No Smokin g Status Entered [facility] Sex Assigned At Male [facility] Start: 04-01-2022 Tobacco smoking status Never s moked tobacco (finding) [facility] Tobacco [facility] status [facility] above: Quit in 2013 after M I quit age 53 (39 pack years) Goals Date Patient Goal Desired Activity /State 12-28-2023 Functional Status Date Assessment Result Facility 08-16-2023 Functional Status N/A [facility] 04-01-2022 Functional Status [facility] 02-03-2022 to 01-25-2024 RadiologyRadiologyRadiologyRadiologyRadiologyRadiologyLaboratoryRadiologyLaborat oryRadiologyLaboratoryRadiologyLaboratoryRadiologyRadiologyLaboratoryRadiologyLa boratoryRadiology Note Date & Type Note Facility 01-25-2024 Hospital Discharge instructions Follow Up Care 01/25/2024 12:17:38 With:Tj BURTON, Ana Rivas, ONC Address: [facility] [address] [place] [phone]- [phone] When: Unknown Comments:cbc, cmp, iron studies in 3mo and 6mofollow-up in 6mo with CONTINUOUS MINING OPERATOR [facility] 12-29-2023 Note LDL > 70 therefore c ontinue lipitor 80 mg and will add zetia 10 mg daily Repeat lipid level before next appt in about 3-6 months [facility] 12-29-2023 Note Hypertension is typi jimmie stable with review of his home b/p log. Definitely has white coat syndrome Continue norvasc, clonidine, lisinopril and toprol [facility] 12-29-2023 Note Coronary artery dise ase is stable Continue GDMT- ASA, lipitor, imdur, toprol, and ranexa continue risk factor modifications- heart healthy diet, regular exercise as tolerated and continue all medications. [facility] 12-29-2023 Note Rate stable with top rol Anticoagulation with eliquis and denied any bleeding tendencies. [facility] 12-29-2023 Note Order ABD Aorta US i n 6 months to re-evalulate infrarenal AAA. [facility] 12-29-2023 Hospital Discharge instructions Follow Up Care 12/29/2023 11:16:26 With:Tj NATHAN-PEMA, Ana Rivas, ONC Address: [facility] [address] [place] [address] [place] [address] [phone] When: Unknown Comments:IV Injectafer x2B12 injections weekly x4, then monthlycbc, cmp, iron studies in 8wksfollow-up in 8wks with CONTINUOUS MINING OPERATOR [facility] 12-29-2023 Note Patient here for 6 m [...] other systems reviewed and are negative. [facility] 12-29-2023 Note UTP CARDIOLOGY PROGR ESS [...] of an abnormal stress test that showed SENIOR MILITARY ANALYST of the RCA with filling via left to right collaterals. He also had a 70% stenosis in a diagonal branch (the prior report mentions that it is not amenable to intervention). At that time left-ventricular gram showed normal left ventricular ejection fraction at 60%. 2. Paroxysmal atrial fibrillation, status post ablation in 2017 at the [facility]. He also had prior cardioversion. He is [...] episodes of atrial fibrillation. He has a [employer] machine that he uses to transmit [...] seconds. Neurol (more content not included)... [facility] 12-29-2023 Note HTN management with goal b/p < 130/80 Monitor b/p at home Routine monitoring- will repeat Echocardiogram in 6 months with f/u with Dr Gore. D/W pt that he is to call 911 for sharp, tearing chest pain or back pain, call office for b/p consistently > 130/80 and he voiced understanding [facility] 08-29-2023 Note Chief Complaint consultation for [...] 28.0-28.9,adult BPH (benign prostatic hyperplasia) CAD in [place] artery Controlled type 2 diabetes mellitus without [...] mg= 2 tab(s (more content not included)... [facility] Comment on above: Result Comment: Elec [...] include: ?8 oz (237 mL) of milk, amvggmp-alzfpjfyqrza-hwjdb milk, and calcium-fortifiedfruit juice. Calcium-fortified means that [...] ?Spinach (cooked), rhubarb, beets, sweet potatoes, and Luxembourger chard. ?Peanuts. ?Potato chips, monegasque fries, and baked potatoes with skin on. ?Nuts and nut products. ?Chocolate. If you regularly take a diuretic medicine, make sure to eat at least 1 or 2 servings of fruits or vegetables that are high in potassium each day. These include: ?Avocado. ?Banana. ?Pacifica, prune, carrot, or tomato juice. ?Baked potato. [...] magnesium, fish oil, or vitamin B6. Take fuch-ytw-gblmoig and prescription medicines only as told by [...] Casseroles. Pizza. Lasagna. Frozen meals. Potato chips. Botswanan fries. The items listed above may not [...] provider. Document Revised: 06/13/2022 Document Reviewed: 06/13/2022 [employer] Patient Education 2022 [employer]. Follow Up [facility] 08/08/2023 13:37:21 With:Teo NIELSON, Shelley Sidhu, SHERRY, URO Address: When: Unknown Comments:PRN [facility] 06-21-2023 Note NM Cardiology - [facility] Subjective Marcelle Deutsch is a 63 [...] of an abnormal stress test that showed SENIOR MILITARY ANALYST of the RCA with filling via left to right collaterals. He also had a 70% stenosis in a diagonal branch (the prior report mentions that it is not amenable to intervention). At that time left-ventricular gram showed normal left ventricular ejection fraction at 60%. 2. Paroxysmal atrial fibrillation, status post ablation in 2017 at the [facility]. He also had prior cardioversion. He is [...] by mouth (more content not included)... [facility] 01-04-2023 Note CARDIAC STRESS TEST Requesting [...] and reported myocardial perfusion scan findings. [facility] 04-01-2022 Hospital Discharge instructions Patient Education [...] quitting, ask your health care provider. Take qcir-yli-kkeamry and prescription medicines only as told by [...] 10/07/2014 Document Revised: 05/27/2019 Document Reviewed: 05/03/2019 [employer] Patient Education 2020 [employer]. 04/01/2022 13:38:40 Hyperglycemia Hyperglycemia Hyperglycemia occurs when [...] or polycystic ovarian syndrome (PCOS). Being of Ukrainian-, -Ukrainian, /, or / descent. What are the [...] these instructions at home: General instructions Take phuc-gsq-xkykgwe and prescription medicines only as told by [...] 03/28/2002 Document Revised: 06/19/2017 Document Reviewed: 06/19/2017 [employer] Patient Education 2020 [employer]. 04/01/2022 13:38:33 Atrial Fibrillation Atrial Fibrillation Atrial [...] may be diagnosed with: Electrocardiogram (ECG). Ambulatory lunchroom monitor. This device records your heartbeats for [...] 10/02/2006 Document Revised: 11/22/2018 Document Reviewed: 11/23/2018 [employer] Patient Education 2020 [employer] 04/01/2022 13:38:29 Pinched Nerve Pinched Nerve [...] work. Follow these instructions at home: Take lfmk-sju-snfuyuz and prescription medicines only as told by [...] leg, or the back or neck. Take ltzl-qii-gmcmwlq and prescription medicines only as told by [...] 09/22/2003 Document Revised: 10/19/2018 Document Reviewed: 10/16/2018 [employer] Patient Education Footfall[employer]. [facility] [place] 02-03-2022 Note HNO ID: [id number] Author: Jannet Gonzalez MD Service: ? Author Type: Physician Type: Progress Notes Filed: 02/03/2022 9:58 AM Note Text: [facility] [place] Emiliano Plascencia Department of Cardiovascular Medicine SECTION OF CARDIAC PACING and ELECTROPHYSIOLOGY OUTPATIENT VISIT DATE February 03, 2022 OUTPATIENT VISIT TYPE CONSULTATION PRIMARY CARE PHYSICIAN: Mark Browning DO [address] [place] [address] CHIEF COMPLAINT: PAF HISTORY OF PRESENT ILLNESS [...] he is in SR. He denies syncope. [id number] (HTN, CAD, DM) tolerating Xarelto PAST MEDICAL HISTORY Diagnosis Date - Atrial fibrillation (HCC) 2013 - CAD (coronary artery disease) 09/02/2014 - Diabetes mellitus (HCC) - Dyslipidemia - Hypertension - Metabolic syndrome PAST SURGICAL HISTORY Procedure Laterality Date - AFIB PVI W/COMPL EP STUDY 07/10/2017 - CARDIAC CATH 09/02/2014 SENIOR MILITARY ANALYST of proximal RCA. 70% ostial D1. Preserved [...] patient General: L (more content not included)... [facility] Evaluation + Plan note No data available for this section [facility] note Future Appointments Appointment Date:01/03/2024 08:00:00 AM Scheduled Provider: Location:[facility] Appointment Type:FM Medicare Wellness Welcome Appointment Date:01/03/2024 08:40:00 AM Scheduled Provider:Ursula Love MD Location:[facility] Appointment Type:FM Open Diagnostic Tests PendingPSA Free & Total 07/03/23Microalbumin Level Urine 07/03/23U Protein/Creat Ratio 07/03/23 [facility] Evaluation + Plan note Future Appointments Appointment Date:01/03/2024 08:00:00 AM Scheduled Provider: Location:[facility] Appointment Type:FM Medicare Wellness Welcome Appointment Date:01/03/2024 08:40:00 AM Scheduled Provider:Ursula Love MD Location:[facility] Appointment Type:[facility] Evaluation + Plan note Future Appointments Appointment Date:08/29/2023 02:20:00 PM Scheduled Provider:Jose Luis THOMAS MD [facility] Type: New 30 Appointment Date:01/03/2024 08:00:00 AM Scheduled Provider: Location:[facility] Appointment Type:FM Medicare Wellness Welcome Appointment Date:01/03/2024 08:40:00 AM Scheduled Provider:Ursula Love MD Location:[facility] Appointment Type:FM Open Diagnostic Tests PendingUrine Culture 08/04/23 Future Scheduled TestsCT Abdomen/Pelvis w/o Contrast 08/02/23 [facility] Evaluation + Plan note Future Appointments Appointment Date:08/29/2023 02:20:00 PM Scheduled Provider:Jose Luis THOMAS MD [facility] Type: New 30 Appointment Date:01/03/2024 08:00:00 AM Scheduled Provider: [facility] Date:01/03/2024 08:40:00 AM Scheduled Provider:Ursula Love MD [facility] Type:[facility] Evaluation + Plan note Future Appointments Appointment Date:08/29/2023 02:20:00 PM Scheduled Provider:Jose Luis THOMAS MD Location:[facility] Appointment Type: Appointment Date:01/03/2024 08:00:00 AM Scheduled Provider: Location:[facility] Appointment Type: Medicare Wellness Welcome Appointment Date:01/03/2024 08:40:00 AM Scheduled Provider:Ursula Love MD Location:[facility] Appointment Type: Open Future Scheduled TestsUS Aorta 08/08/24 [facility] Evaluation + Plan note Future Appointments Appointment Date:01/03/2024 08:00:00 AM Scheduled Provider: Location:[facility] Appointment Type:FM Medicare Wellness Welcome Appointment Date:01/03/2024 08:40:00 AM Scheduled Provider:Ursula Love MD Location:[facility] Appointment Type: Open Future Scheduled TestsUS Aorta 08/08/24 [facility] [place] Evaluation + Plan note Future Appointments Appointment Date:12/17/2024 08:00:00 AM Scheduled Provider: Location:[facility] Appointment Type:FM Medicare Wellness Subsequent Diagnostic Tests PendingHCV Antibody RFX to Quant PCR 12/18/23 Future Scheduled TestsCT Chest, Low Dose Screening 12/18/23US Aorta 08/08/24 [facility] Evaluation + Plan note Future Appointments Appointment Date:03/25/2024 10:45:00 AM Scheduled Provider:Ursula Love MD Location:[facility] Appointment Type: Open Appointment Date:12/17/2024 08:00:00 AM Scheduled Provider: Location:[facility] Appointment Type: Medicare Wellness Subsequent Future Scheduled TestsUS Aorta 08/08/24 [facility] Evaluation + Plan note Future Appointments Appointment Date:01/25/2024 09:00:00 AM Scheduled Provider:Ana Kumar [facility] Office Visit [facility] ([place]) Appointment Date:03/25/2024 10:45:00 AM Scheduled Provider:Ursula Love MD Location:[facility] Appointment Type: Open Appointment Date:12/17/2024 08:00:00 AM Scheduled Provider: Location:[facility] Appointment Type: Medicare Wellness Subsequent Diagnostic Tests PendingImmunofixation Serum 01/16/24Free K+L Lt Chains,Qn,S 01/16/24Protein Electrophoresis 01/16/24 Future Scheduled TestsUS Aorta 08/08/24 [facility] Evaluation + Plan note Future Appointments Appointment Date:02/01/2024 02:30:00 PM Scheduled Provider: Location[facility] Appointment Type:ONC Injection ([place]) Appointment Date:02/08/2024 02:30:00 PM Scheduled Provider: Location[facility] Appointment Type:ONC Injection ([place]) Appointment Date:02/15/2024 02:00:00 PM Scheduled Provider: Location[facility] Appointment Type:ONC Injection ([place]) Appointment Date:03/14/2024 10:15:00 AM Scheduled Provider:Ana Kumar [facility] Type:ONC Office Visit 30 ([place]) Appointment Date:03/14/2024 10:45:00 AM Scheduled Provider: [facility] App[facility] Type:ONC Injection ([place]) Appointment Date:03/25/2024 10:45:00 AM Scheduled Provider:Ursula Love MD Location:[facility] Appointment Type: Open Appointment Date:12/17/2024 08:00:00 AM Scheduled Provider: Location:[facility] Appointment Type:FM Medicare Wellness Subsequent Future Scheduled TestsCBC w/ Auto Diff 03/21/24Comprehensive Metabolic Panel 03/21/24Ferritin 03/21/24Iron Level 03/21/24Iron Percent Saturation 03/21/24Transferrin 03/21/24US Aorta 08/08/24 [facility] Evaluation + Plan note Future Appointments [...] Date:03/25/2024 10:45:00 AM Scheduled Provider:Ursula Love MD Location:[facility] Appointment Type:FM Open Appointment Date:04/11/2024 02:00:00 PM [...] (FT) Appointment Date:12/17/2024 08:00:00 AM Scheduled Provider: Location:[facility] Appointment Type: Medicare Wellness Subsequent Appointment Date:12/19/2024 [...] 03/21/24Iron Percent Saturation 03/21/24Transferrin 03/21/24US Aorta 08/08/24 [facility] Evaluation + Plan note Future Appointments Appointment Date:02/15/2024 01:00:00 PM Scheduled Provider: Location[facility] Appointment Type:ONC Injectafer ([place]) Appointment Date:02/15/2024 02:00:00 PM Scheduled Provider: Location[facility] Appointment Type:ONC Injection (FT) Appointment Date:03/14/2024 10:15:00 AM Scheduled Provider:Ana Kumar Location[facility] Appointment Type:ONC Office Visit 30 (FT) Appointment Date:03/14/2024 10:45:00 AM Scheduled Provider: Location[facility] Appointment Type:ONC Injection ([place]) Appointment Date:03/25/2024 10:45:00 AM Scheduled Provider:Ursula [facility] Open Appointment Date:04/11/2024 02:00:00 PM [...] (FT) Appointment Date:12/17/2024 08:00:00 AM Scheduled Provider: Location:[facility] Appointment Type: Medicare Wellness Subsequent Appointment Date:12/19/2024 [...] 03/21/24Iron Percent Saturation 03/21/24Transferrin 03/21/24US Aorta 08/08/24 [facility] Evaluation + Plan note Future Appointments Appointment Date:03/14/2024 10:15:00 AM Scheduled Provider:Ana Kumar Location[facility] Appointment Type:ONC Office Visit 30 ([place]) Appointment Date:03/14/2024 10:45:00 AM Scheduled Provider: Location[facility] Appointment Type:ONC Injection (FT) Appointment Date:03/25/2024 10:45:00 AM Scheduled Provider:Ursula Love MD Location:[facility] Appointment Type:FM Open Appointment Date:04/11/2024 02:00:00 PM [...] (FT) Appointment Date:12/17/2024 08:00:00 AM Scheduled Provider: Location:[facility] Appointment Type: Medicare Wellness Subsequent Appointment Date:12/19/2024 [...] 03/11/24Iron Percent Saturation 03/11/24Transferrin 03/11/24US Aorta 08/08/24 [facility] Evaluation + Plan note Future Appointments Appointment Date:03/14/2024 10:15:00 AM Scheduled Provider:Tj BURTON Ana Evelyn Location:.[facility] Appointment Type:ONC Office Visit 30 ([place]) Appointment Date:03/14/2024 10:45:00 AM Scheduled Provider: Location[facility] Appointment Type:ONC Injection (FT) Appointment Date:03/26/2024 10:45:00 AM Scheduled Provider:Ursula Love MD Location:[facility] Appointment Type:FM Open Appointment Date:04/11/2024 02:00:00 PM [...] (FT) Appointment Date:12/17/2024 08:00:00 AM Scheduled Provider: Location:[facility] Appointment Type: Medicare Wellness Subsequent Appointment Date:12/19/2024 02:15:00 PM Scheduled Provider: Location:.[facility] Appointment Type:ONC Injection (FT) Appointment Date:01/16/2025 02:05:00 PM Scheduled Provider: Location:.[facility] Appointment Type:ONC Injection (FT) Appointment Date:02/13/2025 02:15:00 PM Scheduled Provider: Location:.[facility] Appointment Type:ONC Injection (FT) Appointment Date:03/13/2025 02:15:00 PM Scheduled Provider: Location:[facility] Appointment Type:ONC Injection (FT) Future Scheduled TestsUS Aorta 08/08/24 [facility] Evaluation + Plan note Future Appointments Appointment Date:03/26/2024 10:45:00 AM Scheduled Provider:Ursula Love MD Location:[facility] Appointment Type:FM Open Appointment Date:04/11/2024 02:00:00 PM [...] (FT) Appointment Date:12/17/2024 08:00:00 AM Scheduled Provider: Location:[facility] Appointment Type: Medicare Wellness Subsequent Appointment Date:12/19/2024 [...] Percent Saturation 09/07/24Transferrin 06/07/24Transferrin 09/07/24US Aorta 08/08/24 [facility] Evaluation + Plan note Future Appointments [...] (FT) Appointment Date:12/17/2024 08:00:00 AM Scheduled Provider: Location:[facility] Kofi Appointment Type: Medicare Wellness Subsequent Appointment [...] Percent Saturation 09/07/24Transferrin 06/07/24Transferrin 09/07/24US Aorta 08/08/24 [facility] Evaluation note Diagnosis Persistent atrial fibrillation (HCC)- Primary Atrial fibrillation documented in this encounter [facility] Discharge instructions No data available for this section [facility] Progress note No data available for this section [facility] Reason for referral (narrative)* Outpatient Procedure (Routine) - Authorized Specialty Diagnoses / Procedures Referred By Contac t Referred To [facility] Diagnoses Persistent atrial fibrillation (HCC) Procedures ECG COMPLETE ECG ROUTINE ECG W/LEAST 12 LDS W/I&R Jannet Gonzalez MD [address] [place] [address] Heart [facility] V[facility] [address] [address] Referral ID Status Reason Start Date Expiration Date Visits Requested Visits Authorized [id number] Authorized Auto-Generat ed Referral 02/03/2022 02/03/2023 1 1 [facility] Summary Purpose Family History No Family History [...] FoundDocuments on File Type Date Recorded Patient Diabetologist Expl anation Advance Directive(s) 07/10/2017 5:38 AM [...] DATE CREATED AUTHOR AUTHOR'S ORGANIZ ATION 02/05/2022 [facility] DATE CREATED AUTHOR AUTHOR'S ORGANIZ ATION 01/17/2023 [facility] DATE CREATED AUTHOR AUTHOR'S ORGANIZ ATION 01/12/2024 [facility] [facility] DATE CREATED AUTHOR AUTHOR'S ORGANIZ ATION 03/12/2024 [facility] DATE CREATED AUTHOR AUTHOR'S ORGANIZ ATION 03/13/2024 [facility] DATE CREATED AUTHOR AUTHOR'S ORGANIZ ATION 04/10/2024 [facility] DATE CREATED AUTHOR AUTHOR'S ORGANIZ ATION 04/13/2024 [facility] Source Comments (unrecognize d section and content) In the event this informatio n is protected by the Federal Confidentiality of Alcohol and Drug Abuse Patient Records regulations: The Federal rules restrict any use of the information to criminally investigate or prosecute any alcohol or drug abuse patient.[facility] Care Teams (unrecognized sec tion and content) Matcher Offbearer Relationship Specialty Start Date End Date Mark Browning PCP - General Family Practice 08/11/14 Jannet Gonzalez MD [address] [place] [address] Primary Staff Physician Cardiology 02/03/22 FOR RECORDS [...] BE BASED ON THE PRIMARY CLINICAL RECORDS. [email or web address] provides no warranty or guarantee of the accuracy or completeness of information in this document.
[2024-04-17] MEDS: METHYLPREDNISOLONE ACETATE 80 EACH INJ (10:20)
[2024-04-17] MEDS: METHYLPREDNISOLONE ACETATE 80 MG/ML VIAL IM (10:20)
[2024-04-17] MEDS: BUPIVACAINE HCL 0.25% PF 25 MG/10 ML VIAL 2 ML INJ (10:20)
[2024-04-17] MEDS: LIDOCAINE HCL 10 ML, SODIUM BICARBONATE 1 MEQ INJ (10:20)
--- NOTE | 2024-04-17 10:54 | SUR.PREOP ---
04/12/24 Pt instructed on procedure, date, time, and prep. Pt made aware to hold ASA x 4 days and Eliquis for 2 days prior to first procedure.
== END 2024-04-17 10:40 | disposition home or self-care (01) ==
LOC: FL 09:45
PROVIDERS: Radiology Diagnostic Radiology; PCP Family Medicine; Visit Provider Student in an Organized Health Care Education/Training Program
DX: M25.552 Pain in left hip (principal); M25.551 Pain in right hip; M16.0 Bilateral primary osteoarthritis of hip
CPT/HCPCS: 20610; 77002; J0665; J1010; Q9967

== ENCOUNTER 2024-05-29 06:52 | Outpatient (OUT) | payer MEDICARE, SELFPAY ==
--- OUTSIDE RECORDS SUMMARY | 2024-05-29 06:54 | XMS_ITS | CCD ---
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 Name Role Phone Mark Browning Primary Care Provider [phone] Jannet Gonzalez MD Ursula Love Primary Care Physician URSULA LOVE Admitting Unavailable URSULA LOVE Attending Unavailable KATE URSULAASHWIN GAN Primary Care Unavailable KATE URSULAASHWIN GAN Consulting Unavailable GAVINUKAHUSSEIN, DR MOSCOSO Admitting Unavailable MOUKAHUSSEIN, DR MOSCOSO Attending Unavailable URSULA LOVE Primary Care Unavailable POINT REYES STATION, DR JANNET Parry Consulting Unavailable MOUKARBDARRIAN, DR MOSCOSO Consulting Unavailable URSULA LOVE Consulting Unavailable Kate Ursula ENelly Primary Care Physician PARISA HERRON Attending Unavailable BLANKA GORE Attending Unavailable Jose Luis THOMAS Attending Unavailable Jose Luis THOMAS Attending Unavailable Ursula Love Attending Unavailable Ana Spencer Attending Unavailable Ana Spencer Attending Unavailable Ursula Love Attending Unavailable Ursula Love ENelly Admitting Unavailable Kate Ursula ENelly Referring Unavailable Ursula Love ENelly Admitting Unavailable Kate Ursula ENelly Referring Unavailable Ursula Love Attending Unavailable Aan Spencer Attending Unavailable Ana Spencer Admitting Unavailable Karen Romano Attending Unavailable Ursula Love ENelly Attending Unavailable Kate Ursula ENelly Referring Unavailable Shelley Bruce Attending Unavailable Bharath Melton Attending Unavailable Bharath Melton Admitting Unavailable Ursula Love ENelly Attending Unavailable Kate Ursula ENelly Admitting Unavailable Kate Ursula ENelly Attending Unavailable Kate Ursula ENelly Admitting Unavailable Kate Ursula ENelly Attending Unavailable Ursula Love ENelly Attending Unavailable Ursula Love ENelly Attending Unavailable Ursula Love Charlotte Attending Unavailable Ursula Love Attending Unavailable Karen Romano Attending Unavailable Ursula Love Attending Unavailable Ursula Love Admitting Unavailable Karen Romano Attending Unavailable Karen Romano Admitting Unavailable Ana Spencer Attending Unavailable Ursula Love Referring Unavailable Ana Spencer Attending Unavailable Ana Spencer Attending Unavailable Ursula Love Admitting Unavailable Ursula Love Referring Unavailable Jose Luis THOMAS R Attending Unavailable Ana Spencer Attending Unavailable Ana Spencer Admitting Unavailable Ursula Love Attending Unavailable Urslua Love Attending Unavailable Tj, Ana Rivas Attending Unavailable Ana Spencer Attending Unavailable Allergies Allergy Classification Reported Allergen(s) Allergy Type Date of Onset Reaction(s) Facility Penicillins (antibiotic) (1 source) Penicillins; 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: [penicillins] Drug Allergy [facility] Repository Unclassified (2 sources) No Known Medication Allergies; 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: [No Known Medication Allergies] Propensity to adverse reactions (disorder) [facility] (20 sources) Penicillins; 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: [penicillins] Propensity to adverse reactions to drug 4 Hives, Weal (disorder) [facility] (1 source) Penicillins Drug allergy (disorder) 4 [facility] Repository Medications Current Medications Medication Drug Class(es) Dates Sig (Normalized) Sig (Original) amLODIPine 5 mg oral tablet (19 sources) Dihydropyridine Calcium Channel Josh Start: 04-01-2022 [...] MOUTH DAILY apixaban 5 mg oral tablet (11 sources) Factor Xa Inhibitor Start: 12-18-2023 take 5 mg by mouth twice daily Eliquis 5 mg, Oral, BID, Refills(s) 0 Start Date: 12/18/23 Status: Ordered aspirin 81 mg oral tablet (19 sources) Platelet Aggregation Inhibitor, Nonsteroidal Anti-inflammatory Drug Start: 08-29-2014 take 81 mg by mouth once daily aspirin 81 mg, Oral, Daily, Refills(s) 0 Start Date: 08/29/14 Status: Ordered Start: 08-29-2014 take 325 mg by mouth once sonya y aspirin 325 mg, Oral, Daily, Refills(s) 0 Start Date: 08/29/14 Status: Ordered atorvastatin 80 mg oral tablet (18 sources) HMG-CoA Reductase Inhibitor Start: 12-19-2022 take [...] day(s), # 90 tab(s), Refills(s) 0, Pharmacy: [facility]/pharmacy #[id number] Start Date: 04/01/22 Stop Date: 05/01/22 Status: Ordered Centrum Minis Men 50+ oral tablet (9 sources) Start: 4 take 1 tablet by mouth once daily Centrum Minis Men 50+ oral tablet 1 tab(s), Oral, Daily, Refill(s) 0 Start Date: 12/28/23 Status: Ordered cloNIDine hydrochloride 0.1 mg oral tablet (19 sources) Central alpha-2 Adrenergic Agonist Start: 2 [...] beat (AFIB)). ezetimibe 10 mg oral tablet (2 sources) Dietary Cholesterol Absorption Inhibitor Start: 4 take 10 mg by mouth once daily Zetia 10 mg, Oral, Daily, Refills(s) 0 Start Date: 03/22/24 Status: Ordered 24 hr isosorbide mononitrate 120 mg extended release oral tablet (20 sources) Nitrate Vasodilator Start: 3 take 1 [...] Status: Ordered lisinopril 20 mg oral tablet (20 sources) Angiotensin Converting Enzyme Inhibitor Start: 03-26-2024 lisinopril 20 mg Tab See Instructions, TAKE 1 TABLET DAILY, # 90 tab(s), Refills(s) 1, Pharmacy: [facility]/pharmacy #[id number], 179, cm, 03/26/24 10:53:00 EDT, Height/Length Dosing, 86, kg, 03/26/24 10:53:00 EDT, Weight Dosing Start Date: 03/26/24 Status: Ordered Start: 07-06-2023 lisinopril 20 mg Tab See Instructions, TAKE 1 TABLET DAILY, # 90 tab(s), Refills(s) 1, Pharmacy: [facility], 178, cm, 12/18/23 13:19:00 EST, Height/Length Dosing, 89.1, kg, 12/18/23 13:19:00 EST, Weight Dosing Start Date: 12/19/23 Status: Ordered Start: 04-25-2023 take 1 tablet by sendy th once daily lisinopril 20 mg Tab 20 mg = 1 tab(s), Oral, Daily, # 90 tab(s), Refills(s) 1, Pharmacy: [facility], 178, cm, 12/19/22 9:57:00 EST, Height/Length Dosing, [...] Daily, # 30 tab(s), Refills(s) 0, Pharmacy: [facility]/pharmacy #[id number] Start Date: 04/01/22 Status: Ordered metFORMIN hydrochloride 500 mg oral tablet (19 sources) Biguanide Start: 07-06-20 metformin 500 mg Tab See Instructions, TAKE 2 TABLETS TWICE A DAY, # 360 tab(s), Refills(s) 1, Pharmacy: [facility], 178, cm, 12/18/23 13:19:00 EST, Height/Length Dosing, 89.1, kg, 12/18/23 13:19:00 EST, Weight Dosing Start Date: 12/19/23 Status: Ordered Start: 04-25-2023 take 2 tablets by [facility] twice daily metformin 500 mg Tab 1,000 mg = 2 tab(s), Oral, BID, TAKE TWO TABLETS BY MOUTH TWICE A DAY, # 360 tab(s), Refills(s) 1, Pharmacy: [facility], 178, cm, 12/19/22 9:57:00 EST, Height/Length Dosing, 90.4, kg, 12/19/22 9:57:00 EST, Weight Dosing Start Date: 04/25/23 Status: Ordered Start: 04-01-2022 End: 09-28-2022 take 2 tablets by mouth twice daily metformin 500 mg ER Tab 1,000 mg = 2 tab(s), Oral, BID, X 90 day(s), # 360 tab(s), Refills(s) 1, Pharmacy: [facility] Start Date: 04/01/22 Stop Date: 09/28/22 Status: Ordered take 2 tablets by [facility] twice daily metFORMIN (GLUCOPHAGE) 500 mg tablet metformin 500 mg tablet TAKE TWO TABLETS BY MOUTH TWICE A DAY 0 Active Comment on above: metformin 500 mg tab let TAKE TWO TABLETS BY MOUTH TWICE A DAY 24 hr metoprolol succinate 100 mg extended release oral tablet (20 sources) beta-Adrenergic Josh Start: 08-29-2014 take 2 [...] omeprazole 20 mg delayed release oral capsule (20 sources) Proton Pump Inhibitor Start: 05-06-2024 omeprazole 20 mg Cap-DR See Instructions, TAKE 1 CAPSULE DAILY, # 90 cap(s), Refills(s) 1, Pharmacy: [facility], 179, cm, 03/26/24 10:53:00 EDT, Height/Length Dosing, 86, kg, 03/26/24 10:53:00 EDT, Weight Dosing Start Date: 05/06/24 Status: Ordered Start: 11-20-2023 take 1 capsule by mo uth once daily omeprazole 20 mg Cap-DR 20 mg = 1 cap(s), Oral, Daily, # 90 cap(s), Refills(s) 1, Pharmacy: [facility], 178, cm, 08/29/23 14:28:00 EST, Height/Length Dosing, 90.8, kg, 08/29/23 14:28:00 EST, Weight Dosing Start Date: 11/20/23 Status: Ordered Start: 07-03-2023 take 1 capsule by mo uth once daily omeprazole 20 mg Cap-DR 20 mg = 1 cap(s), Oral, Daily, # 90 cap(s), Refills(s) 1, [facility]: [facility], 178, cm, 07/03/23 7:24:00 EDT, Height/Length Dosing, 90, kg, 07/03/23 7:24:00 EDT, Weight Dosing Start Date: 07/03/23 Status: Ordered Start: 04-01-2022 End: 09-28-2022 take 1 capsule by mouth once daily omeprazole 20 mg Cap-DR 20 mg = 1 cap(s), Oral, Daily, X 90 day(s), # 90 cap(s), Refills(s) 1, Pharmacy: [facility] Start Date: 04/01/22 Stop Date: 09/28/22 Status: Ordered Start: 08-29-2014 take 1 capsule by mo uth once daily omeprazole (PRILOSEC) 20 mg capsule Take 1 capsule by mouth once daily. 90 capsule 3 12/19/2018 Active Comment on above: Take 1 capsule by mo uth once daily. ProFe 180 mg oral capsule (8 sources) Start: 12-25-2023 take 1 capsule by mouth once daily ProFe 180 mg oral capsule 180 mg = 1 cap(s), Oral, Daily, # 100 cap(s), Refills(s) 0, Pharmacy: [facility]/pharmacy #[id number], 178, cm, 12/18/23 13:19:00 EST, Height/Length Dosing, 89.1, kg, 12/18/23 13:19:00 EST, Weight Dosing Start Date: 12/25/23 Status: Ordered 12 hr ranolazine 500 mg extended release oral tablet (17 sources) Anti-anginal Start: 12-19-2022 take 2 tablets [...] Daily, # 10 cap(s), Refills(s) 0, Pharmacy: [facility]/pharmacy #[id number], 178, cm, 07/19/23 11:20:00 EDT, Height/Length Dosing, 89.2, kg, 07/19/23 11:20:00 EDT, Weight Dosing Start Date: 07/19/23 Status: Ordered Problems Active Problems Problem Classification Problem Date Documented Da te Episodic/Chronic Abdominal pain (4 sources) Left flank pain 07-19-2023 Episodic Aortic; peripheral; and visceral artery aneurysms (20 sources) Aortic aneurysm; 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: [Abdominal aortic aneurysm] 08-08-2023 Chronic Calculus of urinary tract (19 sources) Kidney stone; 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: [History of calculus of kidney] Onset: 3 07-19-2023 Episodic Cardiac dysrhythmias (20 sources) Persistent atrial fibrillation; 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: [Other persistent atrial fibrillation] Onset: 2 Chronic Coronary atherosclerosis and other heart disease (20 sources) Coronary arteriosclerosis; 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: [Atherosclerotic heart disease of [place] coronary artery without angina pectoris] Onset: 4 10-02-2014 Chronic Deficiency and other anemia (9 sources) Microcytic anemia 12-28-2023 Episodic Deficiency and other anemia (2 sources) Iron deficiency anemia; 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: [Iron deficiency anemia, unspecified] Onset: 4 Episodic Diabetes mellitus without complication (20 sources) Type 2 diabetes mellitus without complications; 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: [Type 2 diabetes mellitus without complication] Onset: 3 Chronic Disorders of lipid metabolism (20 sources) Dyslipidemia; 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: [Hyperlipidemia, unspecified] Onset: 3 08-22-2014 Chronic Esophageal disorders (17 sources) Gastroesophageal reflux disease without esophagitis 07-03-2023 Chronic Essential hypertension (20 sources) Hypertensive disorder; 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: [Essential (primary) hypertension] Onset: 2 08-22-2014 Chronic Genitourinary symptoms and ill-defined conditions (15 sources) Blood in urine; 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: [Dysuria] Onset: 3 07-19-2023 Episodic Hemorrhoids (15 sources) Bleeding external hemorrhoids 08-02-2023 Episodic Hyperplasia of prostate (14 sources) Benign prostatic hypertrophy without outflow obstruction; 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: [Benign prostatic hyperplasia without lower urinary tract symptoms] Onset: 3 Chronic Nutritional deficiencies (1 source) Vitamin B deficiency; 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: [Deficiency of other specified B group vitamins] Onset: 4 Episodic Other and unspecified benign neoplasm (1 source) Benign neoplasm of rectum; 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: [Benign neoplasm of rectum] Onset: 3 Episodic Other and unspecified benign neoplasm (12 sources) Adenomatous polyp of rectum 10-04-2023 Episodic [...] unspecified] Onset: 4 Chronic Other gastrointestinal disorders (9 sources) Splenomegaly 12-28-2023 Episodic Other non-traumatic joint disorders (2 sources) Hip pain 03-26-2024 Episodic Other nutritional; endocrine; and metabolic disorders (20 sources) Metabolic syndrome X; 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: [Metabolic syndrome] 10-11-2021 Chronic Other nutritional; endocrine; and metabolic disorders (2 sources) Obesity 09-01-2014 Chronic Other nutritional; endocrine; and metabolic disorders (17 sources) Overweight in adulthood with body mass index of 25 or more but less than 30 12-19-2022 Episodic Other nutritional; endocrine; and metabolic disorders (12 sources) Overweight 08-29-2023 Episodic Other screening for suspected conditions (not mental disorders or infectious disease) (2 sources) Cardiovascular stress test abnormal; 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: [Abnormal result of other cardiovascular function study] Onset: 4 08-25-2014 Episodic Residual codes; unclassified (14 sources) Family history of malignant neoplasm of kidney; 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: [Family history of malignant neoplasm of kidney] Onset: 3 Episodic Screening and history of mental health and substance abuse codes (14 sources) H/O: Disorder; 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: [Personal history of nicotine dependence] Onset: 3 Episodic Unclassified (17 sources) Non-smoker 12-19-2022 Unclassified (20 sources) Patient [...] source) Long-term current use of anticoagulant; 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: [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] Onset: 11-28-2017 11-28-2017 Episodic Unclassified (1 source) Infrarenal abdominal aortic aneurysm, without rupture; 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: [Infrarenal abdominal aortic aneurysm, without rupture] Onset: 12-29-2023 Unclassified (1 source) Aneurysm of the ascending aorta, without rupture; 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: [Aneurysm of the ascending aorta, without rupture] Onset: 12-29-2023 Results Test Name Value Interpretation Reference Range Facil ity Ambulatory Visit Summaryon 0 03-26-2024 Ambulatory Visit Summary DEUTSCHMARCELLE GUTIERREZ Maria D :1960 Visit Date:03/26/2024 Ambulatory Visit Instructions Your [...] Oncology Monday 8:00 AM EST With: Where: [facility] [place] [facility] Family Medicine Office/Clini c Noteon 03-26-2024 Family [...] cap(s), Refills(s) 0, [id number] 178, cm, 12/18/23 13:19:00 EST, Height/Length Dosing, 89.1, kg, 12/18/23 13:19:00 EST, Weight Dosing lisinopril, See Instructions, TAKE 1 TABLET DAILY, # 90 tab(s), Refills(s) 1, Pharmacy: [facility]/pharmacy #[id number], 179, cm, 03/26/24 10:53:00 EDT, Height/Length Dosing, 86, kg, 03/26/24 10:53:00 EDT, Weight Dosing Follow-up No qualifying data available Problem List/Past Medical History Ongoing AAA (abdominal aortic aneurysm) Aortic aneurysm BMI 28.0-28.9,adult BPH (benign prostatic hyperplasia) CAD in [place] artery Controlled type 2 diabetes mellitus without [...] Others hurt by (more content not included)... [facility] Comment on above: Result Comment: Elec tronically Signed By: Ursula Love MD\.br\Date and Time Signed: 03/26/24 16:51 EDT Physician Referralon 024 Physician Referral [id number] #[email or web address] [facility] Population Healthon 03-22-20 24 Population Health Case Information Case Priority: None Programs: -- Referral Source: Clerk Checker Referral Reason: Disease management Case Type: Chronic Care Management Risk Score: -- Case Status: Active (December 28, 2023) Date Assigned: December 19, 2023 Assigned By: Christian Hernandez Date Enrolled: December 28, 2023 Assigned Primary Personnel: Christian Hernandez Assigned Secondary Personnel: -- Case Physician: Ursula Love MD Ongoing AAA (abdominal aortic aneurysm) Aortic aneurysm BMI 28.0-28.9,adult BPH (benign prostatic hyperplasia) CAD in [place] artery Controlled type 2 diabetes mellitus without [...] CCM Program Enrollment Verbally agreed to receive [facility] services CCM Written Consent Written consent in progress CCM Verbal Consent By Self 12/28/23 07:00:00 Result Name Value Comment HIPPA Verified Type of Contact In person at home CM Preferred Spoken Language [place] CM Preferred Written Language [place] Preferred Communication Mode Verbal Ability to Read/Write Able to read, Able to write Preferred Salutation Preferred Method of Contact Cell Cell Phone [phone] Best Time to Visit or Contact 7-10 am Best Day to Visit or Contact No preference Appointment Reminders Patient portal, Other secured messaging Preferred Way to Send PHI Patient portal Preferred Mailing Address [address] [place] [address] Learning Style Pref Patient Verbal explanation Learning [...] Shares bed Support System Spouse/Significant other 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 Normal [facility] Consent for Treatmenton 02-15 Consent for Treatment [id number] #[id number] Normal [facility] Oncology Progress Noteon Oncology Progress Note [...] a colonoscopy done in Sep 2023 at [facility] after positive Cologuard test. This showed a [...] stable Follow-up With When Contact Information Tj NATHAN-, Ana Rivas, ONC [facility] [address] [place] [phone] Additional Instructions: cbc, cmp, iron studies in 3mo and 6mo follow-up in 6mo with [employer] Medications amLODIPine 5 mg Tab, Oral, Daily [...] (DoT), 100 (more content not included)... Normal [facility] CBC w/ Auto Diffon 4 Acanthocytes LM Ql (Bld) PRESENT Invalid Interpretation Code [facility] Comment on above: Performed By: #### 2 [id number] #### [facility] [address] [place] [address] Anisocytosis Ql (Bld) PRESENT Invalid Interpretation Code [facility] Comment on above: Performed By: #### 2 [id number] #### [facility] [address] [place] [address]676 Basophils/100 WBC (Bld) 0.8 % Normal 0.0-2.0 [facility] Comment on above: Performed By: #### 2 [id number] #### [facility] [address] [place] [address] Basophils/Leukocytes Auto (Bld) [Pure # fraction] 0.0 E9/L Normal 0.0-0.2 [facility] Comment on above: Performed By: #### 2 [id number] #### [facility] [address] [place] [address] Eosinophils (Bld) [#/Vol] 0.2 E9/L Normal 0.0-0.5 [facility] Comment on above: Performed By: #### 2 [id number] #### [facility] [address] [place] [address] Eosinophils/100 WBC (Bld) 3.7 % Normal 0.0-8.0 [facility] Comment on above: Performed By: #### 2 [id number] #### [facility] [address] [place] [address] Erythrocyte distribution width (RBC) [Ratio] 27.1 % High 10.9-14.2 [facility] Comment on above: Performed By: #### 2 [id number] #### [facility] [address] [place] [address] Hematocrit (Bld) [Volume fraction] 40.0 % Normal 37.7-49.0 [facility] Comment on above: Performed By: #### 2 [id number] #### [facility] [address] [place] [address] Hemoglobin (Bld) [Mass/Vol] 13.4 g/dL Low 13.5-17.5 [facility] Comment on above: Performed By: #### 2 [id number] #### [facility] [address] [place] [address] Hypochromia Auto Ql (Bld) PRESENT Invalid Interpretation Code [facility] Comment on above: Performed By: #### 2 [id number] #### [facility] [address] [place] [address] Lymphocytes (Bld) [#/Vol] 1.6 E9/L Normal 1.0-4.0 [facility] Comment on above: Performed By: #### 2 [id number] #### [facility] [address] [place] [address] Lymphocytes/100 WBC (Bld) 32.5 % Normal 14.0-50.0 [facility] Comment on above: Performed By: #### 2 [id number] #### [facility] [address] [place] [address] MCH (RBC) [Entitic mass] 27.3 pg Normal 27.0-34.0 [facility] Comment on above: Performed By: #### 2 [id number] #### [facility] [address] [place] [address] MCHC (RBC) [Mass/Vol] 33.6 g/dL Normal 31.4-36.0 [facility] Comment on above: Performed By: #### 2 [id number] #### [facility] [address] [place] [address] MCV (RBC) [Entitic vol] 81.4 fL Normal 80.0-100.0 [facility] Comment on above: Performed By: #### 2 [id number] #### [facility] [address] [place] [address] Monocytes (Bld) [#/Vol] 0.4 E9/L Normal 0.2-1.0 [facility] Comment on above: Performed By: #### 2 [id number] #### [facility] [address] [place] [address] Neutrophils (Bld) [#/Vol] 2.7 E9/L Normal 2.0-7.5 [facility] Comment on above: Performed By: #### 2 [id number] #### [facility] [address] [place] [address] Neutrophils/100 WBC (Bld) 55.1 % Normal 36.0-75.0 [facility] Comment on above: Performed By: #### 2 [id number] #### [facility] [address] [place] [address] Ovalocytes LM Ql (Bld) PRESENT Invalid Interpretation Code [facility] Comment on above: Performed By: #### 2 [id number] #### [facility] [address] [place] [address] Platelet mean volume (Bld) [Entitic vol] 9.9 fL Normal 6.4-10.8 [facility] Comment on above: Performed By: #### 2 [id number] #### [facility] [address] [place] [address] Platelets (Bld) [#/Vol] 116.0 E9/L Low 150.0-500.0 [facility] Comment on above: Performed By: #### 2 [id number] #### [facility] [address] [place] [address] RBC (Bld) [#/Vol] 4.9 E12/L Normal 4.3-5.9 [facility] Comment on above: Performed By: #### 2 [id number] #### [facility] [address] [place] [address] RBC size Nom (Bld) SEE MORPHOLOGY Invalid Interpretation Code [facility] Comment on above: Performed By: #### 2 [id number] #### [facility] [address] [place] [address] WBC corrected for nucl RBC Auto (Bld) [#/Vol] 5.0 E9/L Normal 4.0-11.0 [facility] Comment on above: Performed By: #### 2 [id number] #### [facility] [address] [place] [address] CHEMISTRYOrdered By: SYSTEM SYSTEM on 03-12-2024 Albumin [...] 03-12-2024 Albumin [Mass/Vol] 4.3 g/dL Normal 3.3-5.0 [facility] Comment on above: Performed By: #### 2 [id number] #### [facility] [address] [place] [address] Albumin/Globulin (S) [Mass conc ratio] 2.3 High 1.1-2.2 [facility] Comment on above: Performed By: #### 2 [id number] #### [facility] [address] [place] [address] ALP [Catalytic activity/Vol] 54 Int._Unit/L Normal 21-98 [facility] Comment on above: Performed By: #### 2 [id number] #### [facility] [address] [place] [address] ALT No additional P-5'-P [Catalytic activity/Vol] 47 Int._Unit/L High 6-46 [facility] Comment on above: Performed By: #### 2 [id number] #### [facility] [address] [place] [address] Anion gap [Moles/Vol] 12 mmol/L Normal 6-16 [facility] Comment on above: Performed By: #### 2 [id number] #### [facility] [address] [place] [address] AST [Catalytic activity/Vol] 30 Int._Unit/L Normal 5-43 [facility] Comment on above: Performed By: #### 2 [id number] #### [facility] [address] [place] [address] Bilirubin [Mass/Vol] 1.8 mg/dL High 0.0-1.1 [facility] Comment on above: Performed By: #### 2 047999 #### [facility] [address] [place] [address] Calcium [Mass/Vol] 9.1 mg/dL Normal 8.9-11.1 [facility] Comment on above: Performed By: #### 2 789993 #### [facility] [address] [place] [address] Chloride [Moles/Vol] 102 mmol/L Normal 101-111 [facility] Comment on above: Performed By: #### 2 765700 #### [facility] [address] [place] [address] CO2 [Moles/Vol] 26 mmol/L Normal 21-31 [facility] Comment on above: Performed By: #### 2 867191 #### [facility] [address] [place] [address] Creatinine [Mass/Vol] 0.8 mg/dL Normal 0.5-1.3 [facility] Comment on above: Performed By: #### 2 978907 #### [facility] [address] [place] [address] Globulin (S) [Mass/Vol] 1.9 g/dL Normal 1.4-4.0 [facility] Comment on above: Performed By: #### 2 515870 #### [facility] [address] [place] [address] Glucose [Mass/Vol] 153 mg/dL Normal 55-199 [facility] Comment on above: Performed By: #### 2 859424 #### [facility] [address] [place] [address] Potassium [Moles/Vol] 4.7 mmol/L Normal 3.5-5.3 [facility] Comment on above: Performed By: #### 2 573507 #### [facility] [address] [place] [address] Protein [Mass/Vol] 6.2 g/dL Normal 6.0-7.8 [facility] Comment on above: Performed By: #### 2 622442 #### [facility] [address] [place] [address] Sodium [Moles/Vol] 135 mmol/L Normal 135-145 [facility] Comment on above: Performed By: #### 2 381974 #### [facility] [address] [place] [address] Urea nitrogen [Mass/Vol] 9 mg/dL Normal 5-21 [facility] Comment on above: Performed By: #### 2 659023 #### [facility] [address] [place] [address] Urea nitrogen/Creatinine [Mass ratio] 11 No Units Normal 10-20 [facility] Comment on above: Performed By: #### 2 920033 #### [facility] [address] [place] [address] Consent for Treatmenton 02-14 Consent for Treatment [id number] #1.00TIFF Normal [facility] Ferritinon 03-12-2024 Ferritin [Mass/Vol] 179 ng/mL Normal 24-336 [facility] Comment on above: Performed By: #### 2 312257 #### [facility] [address] [place] [address] HEMATOLOGYOrdered By: SYSTEM SYSTEM on 03-12-2024 Acanthocytes [...] 03-12-2024 Iron [Mass/Vol] 117 microgram/dL Normal 35-153 [facility] Comment on above: Performed By: #### 2 654134 #### [facility] [address] [place] [address] Iron Saturationon 03-12-2024 Iron binding capacity [Mass/Vol] 326 microgram/dL Normal 250-400 [facility] Comment on above: Performed By: #### 2 497365 #### [facility] [address] [place] [address] Iron saturation [Mass fraction] 36 % Normal 20-50 [facility] Comment on above: Performed By: #### 2 426195 #### [facility] [address] [place] [address] Transferrinon 03-12-2024 Transferrin [Mass/Vol] 233 mg/dL Normal 200-370 [facility] Comment on above: Performed By: #### 2 996392 #### [facility] [address] [place] [address] eGFRon 03-12-2024 eGFR 98 mL/min/1.73 m2 Normal >=59 [facility] Comment on above: Order Comment: Order added by Discern Expert. Performed By: #### 1 2322887 #### [facility] [address] [place] [address] Consent for Treatmenton Consent for Treatment [id number] #1.00TIFF [facility] Consent for Treatmenton 01-15 Consent for Treatment [id number] #1.00TIFF [facility] Consent for Treatmenton 01-14 Consent for Treatment [id number] #1.00TIFF [facility] Consenton 01-31-2024 Consent [id number]#1.00TIFF [facility] Outside Diabetes Eye Examon 01-31-2024 Outside Diabetes Eye Exam [id number] #1.00TIFF [facility] Population Healthon 01-26-20 24 Population Health Case Information Case Priority: None Programs: -- Referral Source: Clerk Checker Referral Reason: Disease management Case Type: Chronic Care Management Risk Score: -- Case Status: Active (December 28, 2023) Date Assigned: December 19, 2023 Assigned By: Christian Hernandez Date Enrolled: December 28, 2023 Assigned Primary Personnel: Christian Hernandez Assigned Secondary Personnel: -- Case Physician: Ursula Love MD Ongoing AAA (abdominal aortic aneurysm) Aortic aneurysm BMI 28.0-28.9,adult BPH (benign prostatic hyperplasia) CAD in [place] artery Controlled type 2 diabetes mellitus without [...] CCM Program Enrollment Verbally agreed to receive [facility] services CCM Written Consent Written consent in progress CCM Verbal Consent By Self 12/28/23 07:00:00 Result Name Value Comment HIPPA Verified Type of Contact In person at home CM Preferred Spoken Language [place] Islander CM Preferred Written Language [place]er Preferred Communication Mode Verbal Ability to Read/Write Able to read, Able to write Preferred Salutation MrNelly Preferred Method of Contact Cell Cell Phone [phone] Best Time to Visit or Contact 7-10 am Best Day to Visit or Contact No preference Appointment Reminders Patient portal, Other secured messaging Preferred Way to Send PHI Patient portal Preferred Mailing Address [address] [place] [address], [address] Learning Style Pref Patient Verbal explanation Learning [...] Shares bed Support System Spouse/Significant other 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 Normal [facility] Consent for Treatmenton 01-14 Consent for Treatment [id number] #1.00TIFF Normal [facility] Oncology Progress Noteon Oncology Progress Note [...] his nasa (more content not included)... Normal [facility] Free K+L Lt Chains,Qn,Son Immunoglobulin light chains.kappa.free (S) [Mass/Vol] 19.0 mg/L Invalid Interpretation Code 3.3-19.4 [facility] Comment on above: Performed By: #### 2 [id number], 8230794, 4953308, 8619364, 0192035, 3134597, 1308674, 0264895, 37422269 ####[facility] [address] [place] [address] Immunoglobulin light chains.kappa.free/Imm unoglobulin light chains.lambda.free (S) [Mass ratio] 1.62 Invalid Interpretation Code 0.26-1.65 [facility] Comment on above: Result Comment: Perf ormed at: [facility] [address] [id number] PhD Nicole Fang Performed By: #### 2 90966359, 6975228, 4156022, 0966540, 9922155, 4410299, 8990184, 9502351, 12223977 ####[facility] [address] [place] [address] Immunoglobulin light chains.lambda.free [Mass/Vol] 11.7 mg/L Invalid Interpretation Code 5.7-26.3 [facility] Comment on above: Performed By: #### 2 68780006, 9669551, 4784824, 4986972, 1116995, 2694196, 0799388, 4759905, 59827916 ####[facility] [address] [place] [address] Immunofixation Serumon 01-16 IgA [Mass/Vol] 87 mg/dL Invalid Interpretation Code 61437 [facility] Comment on above: Performed By: #### 2 04347230, 3230608, 5183197, 6383876, 4811947, 2942726, 1832430, 7251240, 60918166 ####[facility] [address] [place] [address] IgG [Mass/Vol] 406 mg/dL Low 603-1613 [facility] Comment on above: Performed By: #### 2 20596154, 6337175, 4578375, 5769995, 9964691, 6111759, 2403964, 1282125, 71130609 ####[facility] [address] [place] [address] IgM [Mass/Vol] 136 mg/dL Invalid Interpretation Code [facility] Comment on above: Result Comment: Perf ormed at: [facility] [address] [id number] PhD Nicole Fang Performed By: #### 2 22224259, 2932141, 2504409, 7236016, 7277685, 9028253, 3739380, 5120880, 39714732 ####[address] [place] [address] Protein Fractions [Interp] Comment Invalid Interpretation Code [facility] Comment on above: Result Comment: No m onoclonality detected. Performed By: #### 2 98800179, 3220422, 8571953, 7118902, 2080316, 7986647, 1405687, 4600825, 57847477 ####[facility] [address] [place] [address] SPEon 01-17-2024 Albumin [Mass/Vol] 3.6 g/dL Invalid Interpretation Code 2.9-4.4 [facility] Comment on above: Performed By: #### 2 28623927, 9981116, 7477353, 4926044, 3045632, 1547598, 2043917, 3826468, 50309342 ####[address] [place] [address] Albumin/Globulin [Mass ratio] 1.8 {ratio} High 0.7-1.7 [facility] Comment on above: Performed By: #### 2 81797351, 8290953, 8326533, 3887684, 9477356, 9430504, 2261102, 1754779, 01002042 ####[address] [place] [address] Alpha 1 globulin Elph [Mass/Vol] 0.2 g/dL Invalid Interpretation Code 0.0-0.4 [facility] Comment on above: Performed By: #### 2 71533675, 1284325, 8354130, 1614346, 7499032, 0082884, 7795948, 6234057, 86897508 ####[address] [address] Alpha 2 globulin Elph [Mass/Vol] 0.6 g/dL Invalid Interpretation Code 0.4-1.0 [facility] Comment on above: Performed By: #### 2 53498828, 2051880, 6790226, 7194607, 3800148, 5530132, 2664292, 5788764, 15064021 ####[address] [address] Beta globulin Elph [Mass/Vol] 0.8 g/dL Invalid Interpretation Code 0.7-1.3 [facility] Comment on above: Performed By: #### 2 03403862, 8390936, 0710428, 8066129, 4281300, 7289813, 5110321, 1042236, 31543352 ####[address] [address] Gamma globulin Elph [Mass/Vol] 0.4 g/dL Invalid Interpretation Code 0.4-1.8 [facility] Comment on above: Performed By: #### 2 66404028, 1498184, 4903682, 2623623, 3921107, 3709927, 3745658, 6774145, 12381260 ####[address] [address] Globulin (S) [Mass/Vol] 2.0 g/dL Low 2.2-3.9 [facility] Comment on above: Performed By: #### 2 28678467, 4497049, 4601915, 1787194, 9709290, 7349957, 2809510, 4636897, 36318710 ####[facility] [address] [place] [address] Laboratory comment Harman (Report) Comment Invalid Interpretation Code [facility] Comment on above: Result Comment: Prot ein electrophoresis scan will follow via computer, mail, or speech pathology assistant delivery. Performed By: #### 2 02331987, 1105609, 5101292, 3394974, 9195521, 6695228, 0327025, 7563432, 00522440 ####[facility] [address] [place] [address] Protein [Mass/Vol] 5.6 g/dL Low 6.0-8.5 [facility] Comment on above: Performed By: #### 2 09979896, 3755061, 4357182, 9905228, 6860297, 3160454, 9039142, 3614492, 22092617 ####[facility] [address] [place] [address] Protein Fractions [Interp] Comment: Invalid Interpretation Code [facility] Comment on above: Result Comment: SPE shows decreased total protein. Performed at: [address] [id number] PhD Nicole Fang Performed By: #### 2 87130668, 7402223, 1961059, 4938978, 3677003, 1381380, 4679146, 1280523, 25907843 ####[facility] [address] [place] [address] Protein.monoclonal Elph [Mass/Vol] Not Observed Invalid Interpretation Code Not Observed [facility] Comment on above: Performed By: #### 2 27626920, 9276540, 6946635, 6338299, 7871321, 3392576, 5164113, 9690102, 55072953 ####[facility] [address] [place] [address] CHEMISTRYOrdered By: SYSTEM SYSTEM on 01-16-2024 Cobalamin [...] 370 mg/dL Remisol Chem Consent for Treatmenton 04- Consent for Treatment [id number] #1.00TIFF Normal [facility] Ferritinon 01-16-2024 Ferritin [Mass/Vol] 8 ng/mL Low 24-336 [facility] Comment on above: Performed By: #### 2 85797693, 9457325, 5140983, 5527420, 1461141, 7721547, 9019343, 7119050, 27798671 ####[facility] [address] [place] [address] Folateon 01-16-2024 Folate [Mass/Vol] 13.0 ng/mL Normal >=6.7 [facility] Comment on above: Performed By: #### 2 17758783, 8060421, 0092543, 1163459, 6166611, 6120421, 7074393, 3200881, 31974981 ####[facility] [address] [place] [address] Ironon 01-16-2024 Iron [Mass/Vol] 36 microgram/dL Normal 35-153 [facility] Comment on above: Performed By: #### 2 89047489, 5756142, 7471839, 4777227, 1941003, 6776943, 5088993, 6823216, 40515227 ####[facility] [address] [place] [address] Iron Saturationon 01-16-2024 Iron binding capacity [Mass/Vol] 473 microgram/dL High 250-400 [facility] Comment on above: Performed By: #### 2 93722846, 1895624, 6916366, 8632532, 8971356, 9828899, 3436067, 0005432, 55655436 ####[facility] [address] [place] [address] Iron saturation [Mass fraction] 8 % Low 20-50 [facility] Comment on above: Performed By: #### 2 25019298, 5579211, 6561115, 0700911, 5574265, 3608479, 0628174, 1839665, 03347350 ####[facility] [address] [place] [address] Transferrinon 01-16-2024 Transferrin [Mass/Vol] 338 mg/dL Normal 200-370 [facility] Comment on above: Performed By: #### 2 09509789, 9972613, 8762334, 3055759, 1827825, 3511704, 4710304, 5800070, 71446613 ####[facility] [address] [place] [address] Vit B12on 01-16-2024 Cobalamin (Vitamin B12) [Mass/Vol] 213 pg/mL Normal 50-1500 [facility] Comment on above: Performed By: #### 2 14962129, 3472512, 8649601, 8151383, 7893865, 1697311, 7719449, 0658060, 27484931 ####[facility] [address] [place] [address] 36on 01-10-2024 36 Message sent from patient to my email: Kg Mesa hope all is well, I forgot to ask if I???m 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 Some things I???ve read are telling me not to?? Marilyn, are you able to advise on this? Thanks. [facility] Physician Referralon 024 Physician Referral [id number] #1.00TIFF Normal [facility] Office Visiton 12-29-2023 Follow-up visit [id number] Marcelle Deutsch 1960 M Date Provider Department Center 12/29/2023 PARISA MUNGUIA WENDY Michaels Family History Problem Relation Age of Onset Coronary artery disease Father Atrial fibrillation Father Heart attack Brother Family Status - Relation Status Age at Father Brother Level of Service:69157 [place] OFFICE/OUTPATIENT ESTABLISHED MOD MDM 30 MIN Normal [facility] ED Pat Eduon 12-28-2023 ED Pat Edu Cardiovascular Coronary Artery Disease, Male Coronary artery disease (CAD) is a condition in which the arteries that lead to the heart (coronary arteries) become narrow or blocked. The narrowing or blockage can lead to decreased blood flow to the heart. Prolonged reduced blood flow can cause a heart attack (myocardial infarction, or PR). This condition may also be called coronary [...] these instructions at home: Medicines ? Take ceqk-uhk-nfbtdgr and prescription medicines only as told by [...] use any (more content not included)... Normal [facility] 12-28-19 [facility] Case Information Case Priority: None Programs: -- Referral Source: Clerk Checker Referral Reason: Disease management Case Type: Chronic Care Management Risk Score: -- Case Status: Active (December 28, 2023) Date Assigned: December 19, 2023 Assigned By: Christian Hernandez Date Enrolled: December 28, 2023 Assigned Primary Personnel: Christian Hernandez Assigned Secondary Personnel: -- Case Physician: -- Problems Ongoing AAA (abdominal aortic aneurysm) Aortic aneurysm BMI 28.0-28.9,adult BPH (benign prostatic hyperplasia) CAD in [place] artery Controlled type 2 diabetes mellitus without [...] Assessments 12/28/23 08:18:00 Result Name Value Comment [facility] Program Enrollment Verbally agreed to receive [facility] services CCM Written Consent Written consent in progress [facility] Verbal Consent By Self 12/28/23 07:00:00 Result Name Value Comment HIPPA Verified Type of Contact In person at home CM Preferred Spoken Language [place] Islander CM Preferred Written Language [place]er Preferred Communication Mode Verbal Ability to Read/Write Able to read, Able to write Preferred Salutation Mr. 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 Normal [facility] Population Health Problems Ongoing AAA (abdominal aortic aneurysm) Aortic aneurysm BMI 28.0-28.9,adult BPH (benign prostatic hyperplasia) CAD in [place] artery Controlled type 2 diabetes mellitus without [...] - Comments: - - 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 Frequency Status Human Performance Consultant Review educational material - - Not done [...] - Comments: - - 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 Frequency Status Human Performance Consultant Review educational material - - Not done [...] - Comments: - - 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 Frequency Status Human Performance Consultant Review educational material - - Not done [...] - Comments: - - 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 Frequency Status Human Performance Consultant Review educational material - - Not done [...] provider - - Not done - - Normal [facility] CT Chest, Low Dose Screening on [...] Bourne MD Transcribed by: LUDWIN Technologist: MEKHI [facility] Consent for Treatmenton 12-14 Consent for Treatment [id number] #1.00TIFF [facility] Family Medicine Office/Clini c Noteon 12-22-2023 Family [...] were given. Reviewed Medicare preventative services checklist. [facility]-F[facility] Prevention and home safety screening reviewed. Patient denies any falls in last 12 months, voices no worry about falling, exhibits no problems with sitting, standing, or ambulation. Pt voices understanding with keeping walk way area free of clutter to prevent tripping and/or falling. [place] Advance Directives reviewed, patient has at home, [...] visit. Will have labs completed with [facility]. Colonoscopy up to date, due for repeat 2025. Reviewed pain symptoms with patient: Patient reports left shoulder and right hip pain, takes Tylenol and used Biofreeze as needed, states effective. Patient does home exercises, states it is beneficial. Reviewed all outside providers that patient follows. Last visit summary notes available in chart and/or have been requested. Follow up scheduled, ANTONINA AWV has been scheduled, 12/17/2024 Abnormal findings with [...] with CDC recommendation that everyone born from 1144[birth year]7320 get tested for Hepatitis C. This is [...] Pack Yea (more content not included)... Normal [facility] Comment on above: Result Comment: Elec tronically Signed By: Ursula Love MD.br\Date and Time Signed: 12/22/23 11:50 EST\.br\Electronically Co-Signed By: Christian Hernandez.jp\Date and Time Co-Signed: 12/18/23 15:00 EST .Interpretation:on 4 HCV Ab IA Ql Comment Invalid Interpretation Code [facility] Comment on above: Result Comment: Not infected with HCV unless early or acute infection is suspected (which may be delayed in an immunocompromised individual), or other evidence exists to indicate HCV infection. [facility]formed at: [facility] [address] [place], [place] [id number] PhD Nicole Fang Performed By: #### 2 636583, [id number], 5078402, 0768837, 8087234025, 157654874, 93450602 ####[facility] [address] [place] [address] HCV Antibody RFX to Quant PC Kavin 12-20-2023 HCV IgG IA Ql Non-Reactive Invalid Interpretation Code Non Reactive [facility] Comment on above: Result Comment: Perf ormed at: [facility] [address] [place], [place] [id number] PhD Nicole Fang Performed By: #### 2 124736, 9967507124, 2426562, 9909204, 2119512748, 016761281, 50680311 ####[facility] [address] [place] [address] Screenson 12-19-2023 Screens [id number] #1.00TIFF Normal [facility] Ambulatory Visit Summaryon 0 12-18-2023 Ambulatory [...] 28.0-28.9,adult BPH (benign prostatic hyperplasia) CAD in [place] artery Controlled type 2 diabetes mellitus without [...] for choosing us for your care. Normal [facility] CBC w/ Auto Diffon 4 Anisocytosis Ql (Bld) PRESENT Invalid Interpretation Code [facility] Comment on above: Performed By: #### 2 967099, [id number], 5059937, 7394351, 1180723616, 002634967, 89388724 ####[facility] [address] [place] [address] Basophils/100 WBC (Bld) 0.6 % Normal 0.0-2.0 [facility] Comment on above: Performed By: #### 2 852799, 7355551458, 0677850, 5071694, 9428119239, 935997816, 96268709 ####[facility] [address] [place] [address] Basophils/Leukocytes Auto (Bld) [Pure # fraction] 0.0 E9/L Normal 0.0-0.2 [facility] Comment on above: Performed By: #### 2 066609, 0759971341, 1478537, 6178664, 1348779856, 926731556, 05938549 ####[facility] [address] [place] [address] Eosinophils (Bld) [#/Vol] 0.1 E9/L Normal 0.0-0.5 [facility] Comment on above: Performed By: #### 2 982187, 1067352975, 8101142, 1868034, 4913767793, 192166110, 81450974 ####[facility] [address] [place] [address] Eosinophils/100 WBC (Bld) 2.7 % Normal 0.0-8.0 [facility] Comment on above: Performed By: #### 2 923480, 7671039189, 2294922, 4623356, 4781840166, 157280232, 64519430 ####[address] [address] Erythrocyte distribution width (RBC) [Ratio] 17.2 % High 10.9-14.2 [facility] Comment on above: Performed By: #### 2 720515, 8773797579, 7404501, 1822730, 0966169253, 313014534, 80018943 ####[facility] [address] [place] [address] Hematocrit (Bld) [Volume fraction] 34.4 % Low 37.7-49.0 [facility] Comment on above: Performed By: #### 2 137617, 6274639998, 2549083, 7994401, 8698931979, 256980335, 03584795 ####[facility] [address] [place] [address] Hemoglobin (Bld) [Mass/Vol] 10.9 g/dL Low 13.5-17.5 [facility] Comment on above: Performed By: #### 2 047471, 3210699501, 7919717, 0264382, 6687631827, 907213177, 82979621 ####[facility] [address] [place] [address] Hypochromia Auto Ql (Bld) PRESENT Invalid Interpretation Code [facility] Comment on above: Performed By: #### 2 666808, 1140563930, 1049995, 5127957, 3652280088, 985216921, 27091943 ####[address] [place] [address] Lymphocytes (Bld) [#/Vol] 1.3 E9/L Normal 1.0-4.0 [facility] Comment on above: Performed By: #### 2 857859, [id number], 8909213, 4584521, 1477320518, 586177686, 08362733 ####[facility] [address] [place] [address] Lymphocytes/100 WBC (Bld) 25.8 % Normal 14.0-50.0 [facility] Comment on above: Performed By: #### 2 702277, 7963033538, 7626944, 3559212, 0954637145, 888781689, 56193271 ####[address] [address] MCH (RBC) [Entitic mass] 23.3 pg Low 27.0-34.0 [facility] Comment on above: Performed By: #### 2 879933, 4183605542, 7000353, 5890049, 3700873400, 354099809, 11395676 ####[address] [address] MCHC (RBC) [Mass/Vol] 31.6 g/dL Normal 31.4-36.0 [facility] Comment on above: Performed By: #### 2 429808, 6778888299, 4651760, 4156260, 3257316749, 311475710, 28011183 ####[address] [address] MCV (RBC) [Entitic vol] 73.6 fL Low 80.0-100.0 [facility] Comment on above: Performed By: #### 2 179277, 9692412669, 9017183, 2650867, 2829725975, 608544095, 14402454 ####[address] [address] Microcytes Ql (Bld) PRESENT Invalid Interpretation Code [facility] Comment on above: Performed By: #### 2 542095, 7504821005, 0834631, 0233476, 5970182291, 326755100, 92250180 ####[address] [address] Monocytes (Bld) [#/Vol] 0.4 E9/L Normal 0.2-1.0 [facility] Comment on above: Performed By: #### 2 308258, 8791223201, 8288398, 6852466, 6711260314, 131843319, 39393657 ####[address] [place] [address] Neutrophils (Bld) [#/Vol] 3.2 E9/L Normal 2.0-7.5 [facility] Comment on above: Performed By: #### 2 808382, 7494876544, 0794583, 9616931, 4686215895, 634578078, 81949419 ####[address] [address] Neutrophils/100 WBC (Bld) 63.4 % Normal 36.0-75.0 [facility] Comment on above: Performed By: #### 2 468515, 5186111685, 2408189, 5107071, 6062063975, 342051522, 96128390 ####[address] [address] Ovalocytes LM Ql (Bld) PRESENT Invalid Interpretation Code [facility] Comment on above: Performed By: #### 2 136293, 1245632085, 9433217, 5863591, 3359035184, 708156622, 00030099 ####[address] [address] Platelet mean volume (Bld) [Entitic vol] 10.4 fL Normal 6.4-10.8 [facility] Comment on above: Performed By: #### 2 678871, 9721011193, 3317428, 6539084, 5793276276, 736390308, 03480614 ####[address] [address] Platelets (Bld) [#/Vol] 137.0 E9/L Low 150.0-500.0 [facility] Comment on above: Performed By: #### 2 460463, 5961285644, 7083987, 7430163, 4539490736, 925744951, 14312224 ####[address] [address] Poikilocytosis Auto Ql (Bld) PRESENT Invalid Interpretation Code [facility] Comment on above: Performed By: #### 2 356379, 4917835214, 7373782, 7148286, 8214555054, 743689540, 31073667 ####[facility] [address] [place] [address] RBC (Bld) [#/Vol] 4.7 E12/L Normal 4.3-5.9 [facility] Comment on above: Performed By: #### 2 165549, 7258119616, 9506697, 5907347, 5328365694, 413747773, 50315767 ####[facility] [address] [place] [address] WBC corrected for nucl RBC Auto (Bld) [#/Vol] 5.0 E9/L Normal 4.0-11.0 [facility] Comment on above: Performed By: #### 2 343525, 1481577549, 0780666, 2214079, 7022323144, 149071611, 82855563 ####[facility] [address] [place] [address] CHEMISTRYOrdered By: SYSTEM SYSTEM on 12-18-2023 Albumin [...] - 20 Remisol Chem CHEMISTRYOrdered By: Bobby Trivedi ertolasio on 12-18-2023 HbA1c (Bld) [Mass fraction] 6.9 % High <=5.9% [facility] ChemAutoSS CMPon 12-18-2023 Albumin [Mass/Vol] 4.4 g/dL Normal 3.3-5.0 [facility] Comment on above: Performed By: #### 2 374541, 8875156793, 9771150, 0053484, 5671947758, 056082118, 92439367 ####[facility] [address] [place] [address] Albumin/Globulin (S) [Mass conc ratio] 2.6 High 1.1-2.2 [facility] Comment on above: Performed By: #### 2 881592, 1733229035, 0929351, 7344336, 4678719386, 568486399, 96050071 ####[facility] [address] [place] [address] ALP [Catalytic activity/Vol] 49 Int._Unit/L Normal 21-98 [facility] Comment on above: Performed By: #### 2 713591, 2493278284, 7408420, 7787889, 1503660993, 830755513, 11968425 ####[address] [place] [address] ALT No additional P-5'-P [Catalytic activity/Vol] 20 Int._Unit/L Normal 6-46 [facility] Comment on above: Performed By: #### 2 460444, 1057480826, 4940336, 7090526, 7438902574, 491759601, 82498213 ####[facility] [address] [place] [address] Anion gap [Moles/Vol] 13 mmol/L Normal 6-16 [facility] Comment on above: Performed By: #### 2 843400, 9060333034, 5275231, 2718006, 4114262957, 330228401, 02862257 ####[facility] [address] [place] [address] AST [Catalytic activity/Vol] 17 Int._Unit/L Normal 5-43 [facility] Comment on above: Performed By: #### 2 689686, 1734718716, 5261309, 1748057, 2108692325, 070751630, 97123375 ####[address] [place] [address] Bilirubin [Mass/Vol] 1.7 mg/dL High 0.0-1.1 [facility] Comment on above: Performed By: #### 2 478813, 1904514381, 0885694, 9831428, 4022869353, 488532822, 54151783 ####[facility] [address] [place] [address] Calcium [Mass/Vol] 9.3 mg/dL Normal 8.9-11.1 [facility] Comment on above: Performed By: #### 2 311580, 0382946317, 0114985, 0630741, 8548883843, 124173931, 21477588 ####[facility] [address] [place] [address] Chloride [Moles/Vol] 103 mmol/L Normal 101-111 [facility] Comment on above: Performed By: #### 2 457556, 1653564967, 7709655, 5616698, 8346957570, 711412035, 30018101 ####[facility] [address] [place] [address] CO2 [Moles/Vol] 26 mmol/L Normal 21-31 [facility] Comment on above: Performed By: #### 2 256746, 1085912509, 8760271, 7871816, 3606126008, 010746840, 46795722 ####[facility] [address] [place] [address] Creatinine [Mass/Vol] 0.8 mg/dL Normal 0.5-1.3 [facility] Comment on above: Performed By: #### 2 925764, 1844532865, 6702649, 7837728, 8898667569, 490711196, 15474963 ####[facility] [address] [place] [address] Globulin (S) [Mass/Vol] 1.7 g/dL Normal 1.4-4.0 [facility] Comment on above: Performed By: #### 2 878649, 4971879084, 4667237, 8384558, 8391144434, 351283440, 94530331 ####[facility] [address] [place] [address] Glucose [Mass/Vol] 124 mg/dL Normal 55-199 [facility] Comment on above: Performed By: #### 2 763728, 6262938531, 3690205, 3481099, 4225209163, 940745708, 48379753 ####[facility] [address] [place] [address] Potassium [Moles/Vol] 4.0 mmol/L Normal 3.5-5.3 [facility] Comment on above: Performed By: #### 2 976962, 3941802585, 9371549, 6010505, 2021848991, 737343039, 56649681 ####[address] [address] Protein [Mass/Vol] 6.1 g/dL Normal 6.0-7.8 [facility] Comment on above: Performed By: #### 2 123795, 3526791611, 9642727, 0026372, 1520189708, 680260623, 23092116 ####[facility] [address] [place] [address] Sodium [Moles/Vol] 138 mmol/L Normal 135-145 [facility] Comment on above: Performed By: #### 2 404881, 7933597194, 3322208, 8826711, 4069644556, 247599724, 98774194 ####[facility] [address] [place] [address] Urea nitrogen [Mass/Vol] 8 mg/dL Normal 5-21 [facility] Comment on above: Performed By: #### 2 434410, 5710847974, 6494020, 6061611, 6749277567, 144204947, 44893467 ####[facility] [address] [place] [address] Urea nitrogen/Creatinine [Mass ratio] 10 No Units Normal 10-20 [facility] Comment on above: Performed By: #### 2 451082, 4051867205, 3672232, 4636413, 0197401341, 612112789, 43098370 ####[facility] [address] [place] [address] HEMATOLOGYOrdered By: SYSTEM SYSTEM on 12-18-2023 Anisocytosis [...] Normal 4.0 - 11.0 E9/L Remisol Heme EfsG3pmv 12-18-2023 HbA1c (Bld) [Mass fraction] 6.9 % High <=5.9 [facility] Comment on above: Performed By: #### 2 281184, 1208031260, 3986171, 7492301, 6291813486, 231336471, 63796074 ####[facility] [address] [place] [address] Lipid Panelon 12-18-2023 Cholesterol [Mass/Vol] 118 mg/dL Low 120-200 [facility] Comment on above: Performed By: #### 2 720593, 9517620124, 3740295, 8372605, 6886072313, 026127664, 54206903 ####[facility] [address] [place] [address] Cholesterol in HDL [Mass/Vol] 37 mg/dL Invalid Interpretation Code [facility] Comment on above: Result Comment: '>= 60 LOW RISK' '<= 40 HIGH RISK' Performed By: #### 2 196374, 4638534911, 4452666, 3268474, 0472386279, 802913627, 54822108 ####[facility] [address] [place] [address] Cholesterol in LDL [Mass/Vol] 72 mg/dL Normal <=129 [facility] Comment on above: Performed By: #### 2 266306, 1909267145, 6397228, 3761226, 9021449859, 516728462, 71418713 ####[facility] [address] [place] [address] Cholesterol in VLDL [Mass/Vol] 22 mg/dL Normal 7-40 [facility] Comment on above: Performed By: #### 2 468263, 3380496555, 3877258, 9562548, 6339956154, 727371058, 18046649 ####[facility] [address] [place] [address] Triglyceride [Mass/Vol] 112 mg/dL Normal <=149 [facility] Comment on above: Performed By: #### 2 170935, 6249947574, 6937841, 2152436, 4056175323, 188268081, 43022515 ####[facility] [address] [place] [address] Patient Educationon 12-18-19 24 Patient Education Cardiovascular [...] signals of the heart. ? An ambulatory director cardiac to record your heart's activity for a [...] Trouble breathing. (more content not included)... Normal [facility] eGFRon 12-18-2023 eGFR 98 mL/min/1.73 m2 Normal >=59 [facility] Comment on above: Order Comment: Order added by Discern Expert. Performed By: #### 2 348146, 0166179709, 2136088, 7785971, 7135006363, 883727214, 31042129 ####[facility] [address] [place] [address] 36on 11-20-2023 36 Patient emailed me and asked if we had samples of Xarelto. Since he's on Medicare now it's very expensive for him. We haven't had a rep bring samples of Xarelto in about 1 year. I mentioned switching to Eliquis, since we do get samples of that. Ok to send RX for Eliquis 5mg bid? Please advise. Thanks! [facility] Ambulatory Visit Summaryon 1 12-05-2022 Ambulatory Visit Summary MARCELLE DEUTSCH :1960 Visit Date:10/04/2023 Ambulatory Visit Instructions Your Care Team Attending Physician - WILLIAM NIELSON, Jose Luis Boyd Primary Care Physician - Kate NIELSON, Ursula Porter This Is Your Medications [...] Appointments Monday 8:00 AM EDT With: Where: [facility] Normal [address] [place] [address]- \.br\ Medications\.br \ What How Much When [...] BPH (benign prostatic hyperplasia)\.b r\ CAD in [place] artery\.br\ Controlled type 2 diabetes mellitus without [...] for choosing us for your care.\.br\ \.br\ [facility] General Surgery Office/Clini c Noteon 10-04-2023 [...] 28.0-28.9,adult BPH (benign prostatic hyperplasia) CAD in [place] artery Controlled type 2 diabetes mellitus without [...] influenza virus vaccine, inactivated 07/30/2018 Recorded Normal [facility] Comment on above: Result Comment: Elec tronically Signed By: WILLIAM NIELSON, Jose Luis Jin\Date and Time Signed: 10/04/23 13:35 EST Reminderson 10-04-2023 Reminders - From: Kori Saldivar LPN To: [facility] - Clinical; Sent: 10/04/2023 13:36:47 EST Show up: 08/21/2026 07:00:00 EST Subject: colonoscopy recall Due Date/Time: 09/20/2026 07:00:00 EST Reminder/Recall Patient due for surveillance colonoscopy 09/20/2026 due to history of tubular adenoma. Normal [facility] Pathology Noteon 09-27-2023 Pathology Note [id number]#1.00TIFF Normal [facility] Outside Colonoscopyon 2022 Outside Colonoscopy [id number] #1.00TIFF Normal [facility] Lab Reportson 09-21-2023 Lab Reports [id number] #1.00TIFF Normal [facility] Physician Referralon 023 Physician Referral [id number] #1.00TIFF Normal [facility] Physician Referralon 023 Physician Referral [id number]# 1.00TIFF Normal [facility] Consent for Procedure/Surger yon 08-30-2023 Consent for Procedure/Surgery [id number] 8#1.00TIFF [facility] Ambulatory Visit Summaryon 1 10-29-2022 Ambulatory Visit Summary MARCELLE DEUTSCH :1960 Visit Date:08/29/2023 Ambulatory Visit Instructions Your Diagnosis Positive colorectal cancer screening using Cologuard test Your Care Team Attending Physician - Jose Luis THOMAS MD Primary Care Physician - Ursula Love [...] Appointments Monday 8:00 AM EDT With: Where: [place] [id number]- \.br\ Medications\.br \ What How Much When [...] BPH (benign prostatic hyperplasia)\.b r\ CAD in [place] artery\.br\ Controlled type 2 diabetes mellitus without [...] for choosing us for your care.\.br\ \.br\ [facility] Ambulatory Visit Summaryon 1 10-16-2022 Ambulatory Visit Summary MARCELLE DEUTSCH :1960 Visit Date:08/16/2023 Ambulatory Visit Instructions Your Diagnosis Kidney stone Gross hematuria BPH (benign prostatic hyperplasia) Personal history of kidney stones Former smoker Family history of kidney cancer Tests Performed Urnls Dip Stick Auto w/o Microscopy POC [address] Your Care Team Attending Physician - Shelley [...] Luis THOMAS MD Where: General Surgery William/Dajuan Kirby Invalid Interpretation Code [address] [place] [address]- \.br\ Monday 8:40 AM EDT \.br\ With: Kate NIELSON, Ursula Porter\.br\ Where: [facility] Patient Educationon 08-16-20 Patient Education Nephrology [...] Spinach (cooked), rhubarb, beets, sweet potatoes, and [place] chard. ? Peanuts. ? Potato chips, cayman islander fries, and baked potatoes with skin on. ? Nuts and nut products. ? Chocolate. ? If you regularly take a diuretic medicine, make sure to eat at least 1 or 2 servings of fruits or vegetables that are high in potassium each day. These include: ? Avocado. ? Banana. ? [place], prune, carrot, or tomato juice. ? Baked [...] fish oil, or vitamin B6. ? Take pbww-paq-tyqalra and prescription medicines only as told by your health care provider. These include supplements. What foods should I limit? Limit your in (more content not included)... Normal [facility] Screenson 08-16-2023 Screens [id number] #1.00TIFF [facility] Urology Office/Clinic Noteon 08-16-2023 Urology Office/Clinic Note [...] call PCP 08/01/23 requesting xrays. (Nothing on [place]) CT ap wo 08/07/23 UA 08/04/23 PSA [...] call PCP 08/01/23 requesting xrays. (Nothing on [place]) CT AP w/o Con 08/07/23 - no [...] Modifications. -Increase fluid intake, 90oz/day, clear fluids, lemon/tatitlek 2. Gross hematuria (R31.0: Gross hematuria) CT [...] (benign prostatic (more content not included)... Normal [facility] Comment on above: Result Comment: Elec tronically Signed By: Teo NIELSON, Shelley M.\.br\Date and Time Signed: 08/16/23 09:03 EDT\.br\Electronically Co-Signed By: Ale Parekh\.br\Date and Time Co-Signed: 08/16/23 08:[address] [...] Oral contrast amount in ml's: 0 Normal [facility] Consent for Treatmenton 10-2 Consent for Treatment [id number] #1.00TIFF Normal [facility] Ambulatory Visit Summaryon 1 Ambulatory Visit [...] Luis THOMAS MD Where: General Surgery William/Dajuan Kofi Invalid Interpretation Code [address] [place] [address]- \.br\ Monday 8:40 AM EDT \.br\ With: Ursula Love MD\.br\ Where: [facility] Nurse Consultation Noteon Nurse Consultation Note [...] influenza virus vaccine, inactivated 07/30/2018 Recorded Normal [facility] URINALYSISOrdered By: Isaiah Garcia on 08-04-2023 [...] PM) Normal Negative [facility] UA Auto SS [place].plasma/Lithiu m.RBC (Bld) [Mass ratio] 0-3 /HPF Normal [...] PM) Invalid Interpretation Code 1.005 - 1.030 [facility] UA Auto SS UA Spec Desc Clean Catch (08/04/23 2:10 PM) Normal [facility] UA Auto SS Urobilinogen Qn (U) 0.6260516 {Denny'U}/dL Normal 0.0 - 1.0 EU/dL [facility] UA Auto SS WBC Auto Ql (U) Negative (08/04/23 2:10 PM) Normal Negative [facility] UA Auto SS WBC LM.HPF (Urine sed) [#/Area] 0-5 /HPF Normal 0-5/HPF [facility] UA Auto SS Urinalysison 08-04-2023 Bacteria LM Ql (Urine sed) TRACE Normal Trace [facility] Comment on above: Performed By: #### 1 2226072 ####[facility] [address] [place] [address] Bilirubin Ql (U) Negative Normal Negative [facility] Comment on above: Performed By: #### 1 1593084 ####[facility] [address] [place] [address] Clarity (U) CLEAR Normal Clear [facility] Comment on above: Performed By: #### 1 0347962 ####[facility] [address] [place] [address] Color (U) YELLOW Normal Yellow [facility] Comment on above: Performed By: #### 1 5021277 ####[facility] [address] [place] [address] Crystals LM Ql (Urine sed) Present Normal [facility] Comment on above: Performed By: #### 1 1796667 ####[facility] [address] [place] [address] Epithelial cells.squamous LM.HPF (Urine sed) [#/Area] 0-2 Normal 0-2 [facility] Comment on above: Performed By: #### 1 2169987 ####[facility] [address] [place] [address] Glucose Test strip (U) [Mass/Vol] Negative Normal Negative [facility] Comment on above: Performed By: #### 1 6345612 ####[address] [address] Hemoglobin Ql (U) Negative Normal Negative [facility] Comment on above: Performed By: #### 1 3760346 ####[address] [address] Ketones (U) [Mass/Vol] Negative Normal Negative [facility] Comment on above: Performed By: #### 1 5525292 ####[address] [address] [place].plasma/Lithiu m.RBC (Bld) [Mass ratio] 0-3 Normal 0-3 [facility] Comment on above: Performed By: #### 1 0010823 ####[address] [address] Nitrite Ql (U) Negative Normal Negative [facility] Comment on above: Performed By: #### 1 0430221 ####[address] [address] pH (U) 6.0 [pH] Invalid Interpretation Code 5.0-9.0 [facility] Comment on above: Performed By: #### 1 6562420 ####[address] [address] Protein (U) [Mass/Vol] Negative Normal Negative [facility] Comment on above: Performed By: #### 1 1573473 ####[address] [address] Specific gravity (U) [Rel density] <=1.005 Invalid Interpretation Code 1.005-1.030 [facility] Comment on above: Performed By: #### 1 6368698 ####[address] [address] Type of Urine collection method Clean Catch Normal [facility] Comment on above: Performed By: #### 1 2932309 ####[address] [address] Urobilinogen Qn (U) 0.2 {Denny'U}/dL Normal 0.0-1.0 [facility] Comment on above: Performed By: #### 1 4689798 ####[facility] [address] [place] [address] WBC Auto Ql (U) Negative Normal Negative [facility] Comment on above: Performed By: #### 1 3078886 ####[facility] [address] [place] [address] WBC LM.HPF (Urine sed) [#/Area] 0-5 Normal 0-5 [facility] Comment on above: Performed By: #### 1 1000685 ####[facility] [address] [place] [address] Physician Referralon 023 Physician Referral [id number] #1.00TIFF Normal [facility] Lab Reportson 08-02-2023 Lab Reports [id number] #1.00TIFF Normal [facility] Ambulatory Visit Summaryon 1 Ambulatory Visit Summary MARCELLE DEUTSCH :1960 Visit Date:07/19/2023 Ambulatory Visit Instructions Your Diagnosis BMI 28.0-28.9,adult Non-smoker Hematuria Kidney stone Left flank pain Dysuria Tests Performed Urnls Dip Stick Non-Auto w/o Micrscpy POC 98752 Your Care Team Attending Physician - Karen [...] Appointments Monday 8:00 AM EDT With: Where: [facility] Normal [address] [place] [address]- \.br\ Medications\.br \ What How Much When Why Instructions\.b r\ New tamsulosin (Flomax 0.4 mg Cap) 1 Capsules By Mouth Every day BMI 28.0-28.9,adult Non-smoker Hematuria Kidney stone Left flank pain Dysuria Pickup at [facility]/pharmacy #[id number]\.br\ Unchanged amlodipine (amLODIPine 5 mg Tab) By [...] day (in the evening)\.br\ Pharmacy Information\.br \ [facility]/pharmacy #[id number]: [address], [place] [phone]\.br\ Test Results\.br\ Urnls Dip Stick Non-Auto w/o Micrscpy POC 53330 (07/19/2023)\.b r\ Bilirubin Urine Dipstick - Negative\.br\ Blood Urine Dipstick - 3+ Large\.br\ Glucose Urine Dipstick - Negative\.br\ Ketones Urine Dipstick - Negative\.br\ Leukocytes Urine Dipstick - Negative\.br\ Nitrite Urine Dipstick - Negative\.br\ Protein Urine Dipstick - Negative\.br\ Specific [place] Urine Dipstick - <=1.005\.br\ Urine Appearance Urine Dipstick - Clear\.br\ Urine Color Urine Dipstick - Light yellow\.br\ Urobilinogen Urine Dipstick - Normal 0.2-1 EU/dl\.br\ pH Urine Dipstick - 7\.br\ Allergies\.br\ penicillins\.br \ Problems\.br\ Ongoing - Any problem that you are currently receiving treatment for.\.br\ BMI 28.0-28.9,adult \.br\ CAD in [place] artery\.br\ Controlled type 2 diabetes mellitus without [...] Dyslipidemia\.b r\ Hypertension\.b r\ Metabolic syndrome\.br\ \.br\ [facility] Ambulatory Visit Summary MARCELLE DEUTSCH :1960 Visit Date:07/19/2023 Ambulatory Visit Instructions Your Diagnosis BMI 28.0-28.9,adult Non-smoker Hematuria Kidney stone Left flank pain Dysuria Tests Performed Urnls Dip Stick Non-Auto w/o Micrscpy POC 77548 Your Care Team Attending Physician - Karen Deleon Primary Care Physician - Kate NIELSON, Ursula Porter This Is Your Medications [...] Appointments Monday 8:00 AM EDT With: Where: [facility] Normal [address] [place] [address]- \.br\ Medications\.br \ What How Much When Why Instructions\.b r\ New tamsulosin (Flomax 0.4 mg Cap) 1 Capsules By Mouth Every day BMI 28.0-28.9,adult Non-smoker Hematuria Kidney stone Left flank pain Dysuria Pickup at [facility]/pharmacy #[id number]\.br\ Unchanged amlodipine (amLODIPine 5 mg Tab) By [...] day (in the evening)\.br\ Pharmacy Information\.br \ [facility]/pharmacy #[id number]: [address], [place] [phone]\.br\ Test Results\.br\ Urnls Dip Stick Non-Auto w/o Micrscpy POC 27587 (07/19/2023)\.b r\ Bilirubin Urine Dipstick - Negative\.br\ Blood Urine Dipstick - 3+ Large\.br\ Glucose Urine Dipstick - Negative\.br\ Ketones Urine Dipstick - Negative\.br\ Leukocytes Urine Dipstick - Negative\.br\ Nitrite Urine Dipstick - Negative\.br\ Protein Urine Dipstick - Negative\.br\ Specific [place] Urine Dipstick - <=1.005\.br\ Urine Appearance Urine Dipstick - Clear\.br\ Urine Color Urine Dipstick - Light yellow\.br\ Urobilinogen Urine Dipstick - Normal 0.2-1 EU/dl\.br\ pH Urine Dipstick - 7\.br\ Allergies\.br\ penicillins\.br \ Problems\.br\ Ongoing - Any problem that you are currently receiving treatment for.\.br\ BMI 28.0-28.9,adult \.br\ CAD in [place] artery\.br\ Controlled type 2 diabetes mellitus without [...] Dyslipidemia\.b r\ Hypertension\.b r\ Metabolic syndrome\.br\ \.br\ [facility] Medicine Office/Clini c Noteon 07-19-2023 [facility] Medicine Office/Clinic Note HPI Staff Marcelle is [...] Daily, # 10 cap(s), Refills(s) 0, Pharmacy: [facility]/pharmacy #[id number], 178, cm, 07/19/23 11:20:00 EDT, Height/Length Dosing, 89.2, kg, 07/19/23 11:20:00 EDT, Weight Dosing Urnls Dip Stick Non-Auto w/o Micrscpy POC 97127 2. Hematuria (R31.9: Hematuria, unspecified) large blood in urinalysis in office. everything else negative Ordered: tamsulosin, 0.4 mg = 1 cap(s), Oral, Daily, # 10 cap(s), Refills(s) 0, Pharmacy: [facility]/pharmacy #[id number], 178, cm, 07/19/23 11:20:00 EDT, Height/Length Dosing, 89.2, kg, 07/19/23 11:20:00 EDT, Weight Dosing Urnls Dip Stick Non-Auto w/o Micrscpy POC 41026 3. Kidney stone (N20.0: Calculus of kidney) will order flomax. if symptoms worsen will order KUB Ordered: tamsulosin, 0.4 mg = 1 cap(s), Oral, Daily, # 10 cap(s), Refills(s) 0, Pharmacy: [facility]/pharmacy #[id number], 178, cm, 07/19/23 11:20:00 EDT, Height/Length Dosing, 89.2, kg, 07/19/23 11:20:00 EDT, Weight Dosing 4. Dysuria (R30.0: Dysuria) pt states the pain is improving Ordered: tamsulosin, 0.4 mg = 1 cap(s), Oral, Daily, # 10 cap(s), Refills(s) 0, Pharmacy: [facility]/pharmacy #[id number], 178, cm, 07/19/23 11:20:00 EDT, Height/Length Dosing, 89.2, kg, 07/19/23 11:20:00 EDT, Weight Dosing Urnls Dip Stick Non-Auto w/o Micrscpy POC 96277 5. Non-smoker (Z78.9: Other specified health status) continue not smoking Ordered: tamsulosin, 0.4 mg = 1 cap(s), Oral, Daily, # 10 cap(s), Refills(s) 0, Pharmacy: [facility]/pharmacy #[id number], 178, cm, 07/19/23 11:20:00 EDT, Height/Length Dosing, 89.2, kg, 07/19/23 11:20:00 EDT, Weight Dosing Urnls Dip Stick Non-Auto w/o Micrscpy POC 01573 6. BMI 28.0-28.9,adult (Z68.28: Body mass index [BMI] 28.0-28.9, adult) BMI education complete Ordered: tamsulosin, 0.4 mg = 1 cap(s), Oral, Daily, # 10 cap(s), Refills(s) 0, Pharmacy: [facility]/pharmacy #[id number], 178, cm, 07/19/23 11:20:00 EDT, Height/Length Dosing, 89.2, kg, 07/19/23 11:20:00 EDT, Weight Dosing Urnls Dip Stick Non-Auto w/o Micrscpy POC 21444 Follow-up No qualifying data available Problem List/Past Medical History Ongoing BMI 28.0-28.9,adult CAD in [place] artery Controlled type 2 diabetes mellitus without [...] Risk, 08/29/ (more content not included)... Normal [facility] Comment on above: Result Comment: Elec tronically Signed By: Karen Deleon.jp\Date and Time Signed: 07/19/23 17:48 EDT PSA Free & Totalon 3 Free PSA/Total PSA [Mass fraction] UTC Abnormal >=25.0 [facility] Comment on above: Result Comment: Resu [...] SO, 1998; 279:1542-7 Performed By: #### 1 [id number], [id number] ####[facility] [address] [place] [address] Free PSA [Mass/Vol] <0.1 Invalid Interpretation Code [facility] Comment on above: Result Comment: The concentration of free PSA and total PSA determined with assays from different manufacturers can vary due to differences in assay methods and specificity. Values obtained with different book publisher's assays cannot be used interchangeably. The methodology used to obtain this result was chemiluminescence using [employer] Access Hybritech PSA reagent and R[employer]o Software[employer]itech free PSA reagent. Performed By: #### 1 [id number], [id number] ####[facility] [address] [place] [address] Prostate specific Ag [Mass/Vol] 0.2 ng/mL Normal 0.1-3.5 [facility] Comment on above: Result Comment: The concentration of PSA determined by different manufacturers can vary due to differences in assay methods and reagent specificity. Values obtained from different assay methods cannot be used interchangeably. The methodology used for this result was chemiluminescence using [employer] Access Hybritech PSA reagent. Performed By: #### 1 [id number], [id number] ####[facility] [address] [place] [address] CHEMISTRYOrdered By: Julien merida on 07-04-2023 Albumin DL <= 20 mg/L (U) [Mass/Vol] microgram/mL Normal 0.0 - 19.0 mcg/mL [facility] Remisol Albumin Elph (U) [Mass fraction] mg/dL Invalid Interpretation Code [facility] Remisol Creatinine (U) [Mass/Vol] 17.7 mg/dL Invalid Interpretation Code [facility] Remisol U Prot/Creat Ratio [facility] Invalid Interpretation Code 0.00 - 200.00 [facility] Remisol U Microalbon 07-04-2023 Albumin DL <= 20 mg/L (U) [Mass/Vol] mg/dL Normal 0.0-19.0 [facility] Comment on above: Performed By: #### 1 [id number], [id number] ####[facility] [address] [place] [address] U Protein/Creat Ratioon 06-16 Albumin Elph (U) [Mass fraction] <6.0 Invalid Interpretation Code [facility] Comment on above: Result Comment: The reference range and other method performance specifications have not been established for this test; results should be integrated into the clinical context for interpretation. Performed By: #### 1 [id number], [id number] ####[facility] [address] [place] [address] Creatinine (U) [Mass/Vol] 17.7 mg/dL Invalid Interpretation Code [facility] Comment on above: Result Comment: The reference range and other method performance specifications have not been established for this test; results should be integrated into the clinical context for interpretation. Performed By: #### 1 [id number], [id number] ####[facility] [address] [place] [address] U Prot/Creat Ratio [facility] Invalid Interpretation Code .00-200.00 [facility] Comment on above: Performed By: #### 1 [id number], [id number] ####[facility] [address] [place] [address] Ambulatory Visit Summaryon 0 9-18-2023 Ambulatory Visit Summary MARCELLE DEUTSCH :1960 Visit [...] Monday 8:00 AM EDT With: Where: [facility] Normal [address] [place] [address]- \.br\ Medications\.br \ What How Much When Instructions\.b r\ Changed omeprazole (omeprazole 20 mg Cap-DR) 1 Capsules By Mouth Every day Pickup at [facility]\.br\ Unchanged diltiazem (diltiazem 30 mg Tab) See [...] concerns \.br\ Pharmacy Information\.br \ [facility] AMKAI: [address] [place], [place] [id number] [phone]\.br\ Allergies\.br\ penicillins\.br \ Problems\.br\ Ongoing - Any problem that you are currently receiving treatment for.\.br\ BMI 28.0-28.9,adult \.br\ CAD in [place] artery\.br\ Controlled type 2 diabetes mellitus without complication, without long-term current use of insulin\.br\ Excess ear wax\.br\ GERD without esophagitis\.br \ Longstanding persistent atrial fibrillation\.b r\ Mixed hyperlipidemia\ .br\ Non-smoker\.br\ Primary hypertension\.b r\ Screening for colon cancer\.br\ Screening for prostate cancer\.br\ Historical - Any problem that you are no longer receiving treatment for.\.br\ Atrial fibrillation\.b r\ Dyslipidemia\.b r\ Hypertension\.b r\ Metabolic syndrome\.br\ \.br\ [facility] CHEMISTRYOrdered By: Bobby roman on 07-03-2023 HbA1c (Bld) [Mass fraction] 6.8 % High <=5.9% [facility] ChemAutoSS Family Medicine Office/Clini c Noteon 07-03-2023 Family Medicine Office/Clinic Note HPI Staff Marcelle is a 63 year old male presenting for a full physical exam Health Maintenance: Colonoscopy: coloard 3 years ago, due PSA: ?? Last Labs: [facility] he's unsure when no results in file [...] didn't feel it was a problem email [email or web address] refill [email or web address] to [email or web address] [email or web address] History of Present Illness - Here for [...] Daily, # 30 tab(s), Refills(s) 0, Pharmacy: [facility]/pharmacy #[id number] omeprazole, 20 mg = 1 cap(s), Oral, Daily, # 90 cap(s), Refills(s) 1, Pharmacy: [facility], 178, cm, 07/03/23 7:24:00 EDT, Height/Length Dosing, 90, kg, 07/03/23 7:24:00 EDT, Weight Dosing - Follow up in 6 months for Welcome to medicare. Follow-up No qualifying data available Problem List/Past Medical History Ongoing BMI 28.0-28.9,adult CAD in [place] artery Controlled type 2 diabetes mellitus without complication, without long-term current use of insulin Excess ear wax GERD without esophagitis Longstanding (more content not included)... Normal [facility] Comment on above: Result Comment: Elec tronically Signed By: Kate NIELSON, Ursula Luis.br\Date and Time Signed: 07/03/23 07:50 EDT [employer] 07-03-2023 Forms [id number] #1.00CD:127 Normal [facility] Forms [id number]# 1.00CD:127 [facility] [id number] 07-03-2023 HbA1c (Bld) [Mass fraction] 6.8 % High <=5.9 [facility] Comment on above: Performed By: #### 1 [id number] ####[facility] [address] [facility] [place] [address] Consultation Noteon 06-28-20 Consultation Note [id number] #1.00CD:127 Normal [facility] Office Visiton 06-21-2023 Follow-up visit [id number] Marcelle Deutsch 1960 M Date Provider Department Center 06/21/2023 BLANKA LOMELI [facility] Family History Problem Relation Age of Onset Coronary artery disease Father Atrial fibrillation Father Heart attack Brother Family Status - Relation Status Age at Father Brother Level of Service:41619 LA OFFICE/OUTPATIENT ESTABLISHED LOW MDM 20-29 MIN Reason for Visit and Comments: Follow-up [655754] - 6 month F/U Normal [facility] CBC AUTO DIFFon 01-04-2023 BASO # 0.1 103/ul Normal 0.0-0.1 [facility] Comment on above: Performed By: #### C BC #### [facility] [address] [place] [address] Dr. Lucia San Basophils/100 WBC (Bld) 1.0 % Normal 0.2-2.0 [facility] Comment on above: Performed By: #### C BC #### [facility] [address] [place] [address] Dr. Lucia San EO # 0.1 103/ul Normal 0.0-0.7 [facility] Comment on above: Performed By: #### C BC #### [facility] [address] [place] [address] Dr. Lucia San Eosinophils/100 WBC (Bld) 2.5 % Normal 0.9-7.0 [facility] Comment on above: Performed By: #### C BC #### [facility] [address] [place] [address] Dr. Lucia San Erythrocyte distribution width (RBC) [Ratio] 17.3 % Critically high 11.0-15.0 [facility] Comment on above: Performed By: #### C BC #### [facility] [address] [place] [address] Dr. Lucia San Hematocrit (Bld) [Volume fraction] 35.2 % Critically low 42.0-54.0 [facility] Comment on above: Performed By: #### C BC #### [facility] [address] [place] [address] Dr. Lucia San Hemoglobin (Bld) [Mass/Vol] 11.3 g/dL Critically low 14.0-18.0 [facility] Comment on above: Performed By: #### C BC #### [facility] [address] [place] [address] Dr. Lucia San IG # 0.02 10e3/ul Normal 0.00-0.03 [facility] Comment on above: Performed By: #### C BC #### [facility] [address] [place] [address] Dr. Lucia San IG % 0.4 % Normal 0.0-0.5 [facility] Comment on above: Performed By: #### C BC #### [facility] [address] [place] [address] Dr. Lucia San LYMPH # 1.6 103/ul Normal 1.2-3.8 [facility] Comment on above: Performed By: #### C BC #### [facility] [address] [place] [address] Dr. Lucia San Lymphocytes/100 WBC (Bld) 30.9 % Normal 20.5-60.0 [facility] Comment on above: Performed By: #### C BC #### [facility] [address] [place] [address] Dr. Lucia San MANUAL DIFF REQ NO Normal [facility] Comment on above: Performed By: #### C BC #### [facility] [address] [place] [address] Dr. Lucia San MCH (RBC) [Entitic mass] 23.9 pg Critically low 25.9-34.0 [facility] Comment on above: Performed By: #### C BC #### [facility] [address] [place] [address] Dr. Lucia San MCHC (RBC) [Mass/Vol] 32.1 g/dL Normal 29.9-35.2 [facility] Comment on above: Performed By: #### C BC #### [facility] [address] [place] [address] Dr. Lucia San MCV (RBC) [Entitic vol] 74.6 fL Critically low 80.0-94.0 [facility] Comment on above: Performed By: #### C BC #### [facility] [address] [address] [address] Lucia San MONO # 0.5 103/ul Normal 0.3-0.8 [facility] Comment on above: Performed By: #### C BC #### [facility] [address] [place] [address] Dr. Lucia San Monocytes/100 WBC (Bld) 9.1 % Normal 1.7-12.0 [facility] Comment on above: Performed By: #### C BC #### [facility] [address] [place] [address] Dr. Lucia San NEUT # 2.9 103/ul Normal 1.4-6.5 [facility] Comment on above: Performed By: #### C BC #### [facility] [address] [place] [address] Dr. Lucia San Neutrophils/100 WBC (Bld) 56.1 % Normal 43.0-75.0 [facility] Comment on above: Performed By: #### C BC #### [facility] [address] [place] [address] Dr. Lucia San Platelet mean volume (Bld) [Entitic vol] 11.6 fL Normal 9.5-13.5 [facility] Comment on above: Performed By: #### C BC #### [facility] [address] [place] [address] Dr. Lucia San PLT 172 103/ul Normal 150-450 [facility] Comment on above: Performed By: #### C BC #### [facility] [address] [place] [address] Dr. Lucia San RBC 4.72 106/ul Normal 4.70-6.10 [facility] Comment on above: Performed By: #### C BC #### [facility] [address] [place], [place] [address] Dr. Lucia San WBC 5.2 103/ul Normal 4.0-11.0 [facility] Comment on above: Performed By: #### C BC #### [facility] [address] [place], [place] [address] Dr. Lucia San ECHOCARDIO M/2D COMPLETEon 0 01-04-2023 ECHOCARDIO M/2D COMPLETE Patient: MARCELLE DEUTSCH Exam Date: 01/04/2023 : 1960 Gender:M Ordering : DR BLANKA GORE M.D. Admission #: [id number] Family : Order #: [id number] CLICK HERE TO VIEW EXAM ECHOCARDIOGRAM REPORT [...] Area (VTI): 3.28 cm2, 3.28 cm2 Deceleration [place]: 0.48 m/s2 Pressure Half-Time: 1.33 s Peak [...] M.D. on 01/04/2023 at 15:00 Normal [facility] GLYCOHEMOGLOBIN A1Con 2022 ADA RECOMMENDATION SEE BELOW Normal [facility] Comment on above: Result Comment: ADA RECOMMENDED LIMIT 4.0 - 6.0 ADA THERAPEUTIC TARGET < 7.0 ACTION SUGGESTED > 7.0 Performed By: #### A 1C #### [facility] [address] [place] [address] Dr. Lucia San HbA1c (Bld) [Mass fraction] 6.9 % Critically high 4.5-6.2 [facility] Comment on above: Performed By: #### A 1C #### [facility] [address] [place] [address] Dr. Lucia San LIPID PROFILEon 01-04-2023 CHOL-HDL RATIO NORM SEE BELOW Normal [facility] Comment on above: Result Comment: 3.3 - 4.4 LOW RISK 4.4 - 7.1 AVERAGE RISK 7.1 - 11.0 MODERATE RISK >11.0 HIGH RISK Performed By: #### L IPID #### [facility] [address] [place] [address] Dr. Lucia San Cholesterol [Mass/Vol] 140 mg/dL Normal <=200 [facility] Comment on above: Performed By: #### L IPID #### [facility] [address] [address] [address] Lucia San Cholesterol in HDL [Mass/Vol] 37 mg/dL Critically low 40-60 [facility] Comment on above: Performed By: #### L IPID #### [facility] [address] [place] [address] Dr. Lucia San Cholesterol in LDL [Mass/Vol] 80.2 mg/dL Normal [facility] Comment on above: Performed By: #### L IPID #### [facility] [address] [place] [address] Dr. Lucia San Cholesterol.total/Cho lesterol in HDL [Mass ratio] 3.8 {ratio} Normal [facility] Comment on above: Performed By: #### L IPID #### [facility] [address] [address] [address] Lucia San HDL NORMAL > or = 60 mg/dl - LOW CARDIOVASCULAR RISK <40 mg/dl - HIGH CARDIOVASCULAR RISK Normal [facility] Comment on above: Performed By: #### L IPID #### [facility] [address] [address] [address] Lucia San LDL CALC NORMAL SEE BELOW Normal [facility] Comment on above: Result Comment: <100 mg/dl OPTIMAL 100 - 129 mg/dl NEAR OR ABOVE OPTIMAL 130 - 159 mg/dl BORDERLINE HIGH 160 - 189 mg/dl HIGH >190 mg/dl VERY HIGH Performed By: #### L IPID #### [facility] [address] [address] [address] Lucia San Triglyceride [Mass/Vol] 114 mg/dL Normal <=150 [facility] Comment on above: Performed By: #### L IPID #### [facility] [address] [address] [address] Lucia San VLDL CALC 22.8 mg/dL Normal [facility] Comment on above: Performed By: #### L IPID #### [facility] [address] [address] [address] Lucia San MICROALBUMIN, RAND URon - mALB 1.5 mg/L Normal <=30.0 [facility] Comment on above: Performed By: #### M ALBR #### [facility] [address] [address] [address] Lucia San NM STRESS/REST MULTIon 01-04 NM STRESS/REST MULTI Patient: MARCELLE DEUTSCH Exam Date: 01/04/2023 : 1960 Gender:M Ordering : DR BLANKA GORE M.D. Admission #: [id number] Family : Order #: [id number] CLICK HERE TO VIEW EXAM RADIOLOGY REPORT [...] LOCATION: Basal inferior. Mid-anterior. Mid-inferior. Apical inferior. [place]. SIZE: Large (5 or more segments). SEVERITY: [...] MD on 01/04/2023 at 11:17 Normal [facility] PROF 14(COMP METB)on 023 Albumin [Mass/Vol] 4.1 g/dL Normal 3.4-5.0 [facility] Comment on above: Performed By: #### C MP #### [facility] [address] [place], [place] [address] Dr. Lucia San Albumin/Globulin [Mass ratio] 1.7 {ratio} Normal [facility] Comment on above: Performed By: #### C MP #### [facility] [address] [place], [place] [address] Dr. Lucia San ALP [Catalytic activity/Vol] 51 U/L Normal 46-116 [facility] Comment on above: Performed By: #### C MP #### [facility] [address] [address] [address] Lucia San ALT [Catalytic activity/Vol] 49 U/L Normal 16-63 [facility] Comment on above: Performed By: #### C MP #### [facility] [address] [address] [address] Lucia San Anion gap [Moles/Vol] 16.6 mmol/L Normal [facility] Comment on above: Performed By: #### C MP #### [facility] [address] [address] [address] Lucia San AST [Catalytic activity/Vol] 28 U/L Normal 15-37 [facility] Comment on above: Performed By: #### C MP #### [facility] [address] [place] [address] Dr. Lucia San Bilirubin [Mass/Vol] 1.7 mg/dL Critically high 0.2-1.0 [facility] Comment on above: Performed By: #### C MP #### [facility] [address] [address] [address] Lucia San Calcium [Mass/Vol] 9.2 mg/dL Normal 8.5-10.1 [facility] Comment on above: Performed By: #### C MP #### [facility] [address] [place] [address] Dr. Lucia San Chloride [Moles/Vol] 100 mmol/L Normal 98-107 [facility] Comment on above: Performed By: #### C MP #### [facility] [address] [address] [address] Lucia San CO2 [Moles/Vol] 25.9 mmol/L Normal 21.0-32.0 [facility] Comment on above: Performed By: #### C MP #### [facility] [address] [address] [address] Lucia San Creatinine [Mass/Vol] 1.03 mg/dL Normal 0.70-1.30 [facility] Comment on above: Performed By: #### C MP #### [facility] [address] [address] [address] Lucia San EGFR-AF SALVADOREAN >60 Normal >=60 [facility] Comment on above: Performed By: #### C MP #### [facility] [address] [place] [address] Dr. Lucia San EGFR-NON AF [place]VADOREAN >60 Normal >=60 [facility] Comment on above: Performed By: #### C MP #### [facility] [address] [place] [address] Dr. Lucia San Globulin (S) [Mass/Vol] 2.4 g/dL Normal [facility] Comment on above: Performed By: #### C MP #### [facility] [address] [place] [address] Dr. Lucia San Glucose [Mass/Vol] 151 mg/dL Normal [facility] Comment on above: Performed By: #### C MP #### [facility] [address] [place] [address] Dr. Lucia San Performed By: #### A 1C #### [facility] [address] [place] [address] Dr. Lucia San Potassium [Moles/Vol] 4.5 mmol/L Normal 3.5-5.1 [facility] Comment on above: Performed By: #### C MP #### [facility] [address] [place] [address] Dr. Lucia San Protein [Mass/Vol] 6.5 g/dL Normal 6.4-8.2 [facility] Comment on above: Performed By: #### C MP #### [facility] [address] [place] [address] Dr. Lucia San Sodium [Moles/Vol] 138 mmol/L Normal 136-145 [facility] Comment on above: Performed By: #### C MP #### [facility] [address] [place] [address] Dr. Lucia San Urea nitrogen [Mass/Vol] 13.0 mg/dL Normal 7.0-18.0 [facility] Comment on above: Performed By: #### C MP #### [facility] [address] [address] [address] Lucia San Urea nitrogen/Creatinine [Mass ratio] 12.6 mg/mg Normal [facility] Comment on above: Performed By: #### C MP #### [facility] [address] [address] [address] Lucia San CNOVon 02-03-2022 CNOV Office Visit (CARDMN) MARCELLE DEUTSCH ([id number]) 1960 M Date Time Provider Department 02/03/22 8:30 AM JANNET GONZALEZ During your visit today, we recorded the following information about you: Pulse Blood pressure Weight Height 60/minute 180/76 85.3 kg 1.765 m Jannet Gonzalez MD 02/03/2022 9:58 AM Signed [facility] Department of Cardiovascular Medicine SECTION OF CARDIAC PACING and ELECTROPHYSIOLOGY OUTPATIENT VISIT DATE February 03, 2022 OUTPATIENT VISIT TYPE CONSULTATION PRIMARY CARE PHYSICIAN: Mark Browning DO [address] [place] [address] CHIEF COMPLAINT: PAF HISTORY OF PRESENT ILLNESS [...] he is in SR. He denies syncope. [id number] (HTN, CAD, DM) tolerating Xarelto PAST MEDICAL HISTORY Diagnosis Date - Atrial fibrillation (HCC) 2013 - CAD (coronary artery disease) 09/02/2014 - Diabetes mellitus (HCC) - Dyslipidemia - Hypertension - Metabolic syndrome PAST SURGICAL HISTORY Procedure Laterality Date - AFIB PVI W/COMPL EP STUDY 07/10/2017 - CARDIAC CATH 09/02/2014 SENIOR COMPUTER SPECIALIST of proximal RCA. 70% ostial D1. Preserved [...] sweating-No, Frequen (more content not included)... Normal [facility] CNCOon 12-04-2021 CNCO Letter Text Normal [facility] Dermatopathologyon 0 Dermatopathology [facility] [address] [place] [id number] DERMATOPATHOLOGY REPORT Name:MARCELLE DEUTSCH Rec #. [id number] Location: [facility] Date of Procedure: 10/02/2020 Race: Unknown Date Received: 10/06/2020 /Sex: 1960 (Age: 60) / M Date Reported: 10/08/2020 Other: Submitting Physician:SONIA GREEN APRN, [employer] FINAL DIAGNOSIS A. SKIN, (R) NECK, BIOPSY: [...] is a mayers piece of skin measuring [id number] in aggreg (small). The specimen is inked and embedded in toto. B: Received in formalin is a mayers piece of skin measuring [id number]. The specimen is inked and embedded in toto. /10/06/2020 Microscopic Description: A,B: Microscopic examination performed. Normal [facility] Comment on above: Performed By: #### D #### Dermatopathology Vital Signs Date Time Vital Sign Value Performing Clinician Facility 03-14-2024 10:16-0400 Body temperature 97.52 [degF] [facility] 03-14-2024 10:16-0400 Diastolic blood pressure 85 mm[Hg] [facility] 03-14-2024 10:16-0400 Heart rate 59 /min [facility] 03-14-2024 10:16-0400 Mean blood pressure 116 mm[Hg] [facility] 03-14-2024 10:16-0400 Respiratory rate 16 /min Ana Spencer [facility] 03-14-2024 10:16-0400 SaO2% (BldA) [Mass fraction] 99 % Ana Lingke [facility] 03-14-2024 10:16-0400 Systolic blood pressure 179 mm[Hg] Ana Lingke [facility] 02-15-2024 13:10-0400 Blood Pressure Location [...] 13:10-0400 Systolic blood pressure 108 mm[Hg] Ana Lingke [facility] 02-08-2024 13:00-0400 Blood Pressure Location Ana Lingke [facility] 02-08-2024 13:00-0400 Body temperature 98.24 [degF] Ana Spencer [facility] 02-08-2024 13:00-0400 Diastolic blood pressure 82 mm[Hg] Ana Hubbardboske [facility] 02-08-2024 13:00-0400 Heart rate 80 /min Ana Hubbardboske [facility] 02-08-2024 13:00-0400 SaO2% (BldA) [Mass fraction] 100 % Ana Hbubardboske [facility] 02-08-2024 13:00-0400 Systolic blood pressure 142 mm[Hg] Ana Hubbardboske [facility] 01-25-2024 08:58-0400 Diastolic blood pressure 82 mm[Hg] Ana Hubbardboske [facility] 01-25-2024 08:58-0400 Heart rate 65 /min Ana Hubbardboske [facility] 01-25-2024 08:58-0400 Mean blood pressure 118 mm[Hg] Ana Hubbardboske [facility] 01-25-2024 08:58-0400 SaO2% (BldA) [Mass fraction] 99 % Ana Hubbardboske [facility] 01-25-2024 08:58-0400 Systolic blood pressure 190 mm[Hg] Ana Demboske [facility] 08-16-2023 08:21-0400 Blood Pressure Location Shelley Lue [facility] 08-16-2023 08:21-0400 Diastolic blood pressure 83 mm[Hg] Shelley Lue [facility] 08-16-2023 08:21-0400 Heart rate 69 /min Shelley Lue [facility] 08-16-2023 08:21-0400 Respiratory rate 16 /min Shelley Bruce [facility] 08-16-2023 08:21-0400 Systolic blood pressure 166 mm[Hg] Shelley Bruce [facility] Encounters Encounter Date Encounter Type Care Provider Facility Start: 05-09-2024 End: 05-09-2024 ambulatory Ana Spencer Facility:[facility] Start: 05-09-2024 End: 05-09-2024 Patient encounter procedure Ana Spencer [facility] Start: 04-24-2024 End: 05-08-2024 ambulatory Ursula Love Facility:[facility] Start: 04-11-2024 End: 04-11-2024 ambulatory Ana Spencer Facility:[facility] Start: 04-11-2024 End: 04-11-2024 Patient encounter procedure Ana Spencer [facility] Start: 03-26-2024 End: 03-26-2024 ambulatory Ursula Love Facility:[facility] Start: 03-22-2024 End: 04-09-2024 ambulatory Ursula Love Facility:[facility] Start: 03-14-2024 End: 03-14-2024 ambulatory Ana Spencer Facility:[facility] Start: 03-14-2024 End: 03-14-2024 Patient encounter procedure Ana Spencer [facility] Start: 03-12-2024 End: 03-12-2024 ambulatory Ana Spencer Facility:[facility] Start: 03-12-2024 End: 03-12-2024 Patient encounter procedure Ana Spencer [facility] Start: 02-15-2024 End: 02-15-2024 ambulatory Ana Spencer Facility:[facility] Start: 02-15-2024 End: 02-15-2024 Patient encounter procedure Ana Spencer [facility] Start: 02-08-2024 End: 02-08-2024 ambulatory Ana Spencer Facility:[facility] Start: 02-08-2024 End: 02-08-2024 Patient encounter procedure Ana Spencer [facility] Start: 02-01-2024 End: 02-01-2024 ambulatory Ana Spencer Facility:[facility] Start: 02-01-2024 End: 02-01-2024 Patient encounter procedure Ana Spencer [facility] Start: 01-25-2024 End: 02-07-2024 ambulatory Ursula Love Facility:[facility] Start: 01-25-2024 End: 01-25-2024 Patient encounter procedure Ana Spencer [facility] Start: 01-16-2024 End: 01-16-2024 ambulatory Bharath Melton Facility:[facility] Start: 01-16-2024 End: 01-16-2024 Patient encounter procedure Bharath Melton [facility] Start: 12-29-2023 End: 12-29-2023 ambulatory PARISA HERRON [facility] Start: 12-28-2023 End: 12-28-2023 ambulatory Ursula Love Facility:[facility] Start: 12-27-2023 End: 12-27-2023 ambulatory Ursula Love Facility:[facility] Start: 12-27-2023 End: 12-27-2023 Patient encounter procedure Ursula Love [facility] Start: 12-19-2023 ambulatory Ursula Love Facility :[id number] Start: 12-18-2023 End: 12-18-2023 Lab Drop off Ursula Love [facility] Start: 12-18-2023 End: 12-18-2023 ambulatory Ursula Love Facility:[facility] Start: 12-18-2023 End: 12-18-2023 ambulatory Ursula Love [facility] Start: 10-04-2023 End: 10-04-2023 ambulatory Jose Luis THOMAS Facility: [facility] Start: 10-04-2023 End: 10-04-2023 Patient encounter procedure Jose Luis THOMAS [facility] Start: 09-20-2023 End: 09-20-2023 ambulatory Jose Luis THOMAS Facility:CD:[id number] Start: 08-29-2023 End: 08-29-2023 ambulatory Ursula Love Facility: [facility] Start: 08-16-2023 End: 08-16-2023 ambulatory Ursula Love Facility:[facility] Start: 08-16-2023 End: 08-16-2023 Patient encounter procedure Shelley Bruce [facility] Start: 08-08-2023 ambulatory Jose Luis THOMAS Facility:[facility] Start: 08-07-2023 End: 08-07-2023 ambulatory Ursula Love Facility:[facility] Start: 08-07-2023 End: 08-07-2023 Patient encounter procedure Ursula Love [facility] Start: 08-04-2023 End: 08-04-2023 Lab Drop off Karen L Juan Antonio [facility] Start: 08-04-2023 End: 08-04-2023 ambulatory Karen L Juan Antonio Facility:[facility] Start: 08-03-2023 ambulatory Jose Luis WILLIAM Facility: [facility] Start: 07-19-2023 End: 07-19-2023 ambulatory Karen L Juan Antonio Facility:[facility] Start: 07-04-2023 End: 07-04-2023 ambulatory Ursula Love Facility:[facility] Start: 07-04-2023 End: 07-04-2023 Lab Drop off Ursula Love [facility] Start: 07-03-2023 End: 07-03-2023 Lab Drop off Ursula Love [facility] Start: 07-03-2023 End: 07-03-2023 ambulatory Ursula Love Facility:[facility] Start: 06-21-2023 End: 06-21-2023 ambulatory [facility] Start: 01-04-2023 End: 01-05-2023 ambulatory URSULA LOVE Facility: Start: 04-01-2022 End: 04-01-2022 Off-Site Ursula Love [facility] Start: 03-30-2022 End: 03-30-2022 Off-Site Ursula Love [facility] Start: 02-03-2022 Orders Only Jannet Timmons Work Phone: Cardiology Comment on above: Persistent atrial fi brillation (HCC) (Primary Dx) Procedures Date Procedure Procedure Detail Performing Clinician Start: 09-20-2023 Colonoscopy Jose Luis RIVERA Cardiac ablation sys tem (physical object) Shelley Bruce Cardiac catheterization Hernandez THOMAS Repair of musculoten dinous cuff of shoulder Jose Luis VALLEJOL Rupture of tendon of biceps (disorder) Jose Luis NILL Structure of right s houlder region (body structure) Ursula Love Tonsillectomy Jose Luis THOMAS Plan of Treatment Date Care Activity Detail Author Start: 12-17-2024 ambulatory Ambulatory Facility:[facility] Start: 07-04-2020 DIABETES SCREEN DIABETES SCREEN [facility] Start: 2013 PROSTATE CANCER SCREENING DISCUSSION PROSTATE CANCER SCREENING DISCUSSION [facility] Start: 2008 SHINGRIX VACCINE (1 of 2) SHINGRIX VACCINE (1 of 2) [facility] Start: 2003 COLOGUARD (FIT-DNA) COLOGUARD (FIT-D NA) [facility] Start: 2003 Colonoscopy COLONOSCOPY [facility] Start: 2003 COLORECTAL CANCER SCREENING COLORECTAL CANCER SCREENING [facility] Start: [address] COLONOGRAPHY [facility] Start: 2003 FECAL OCCULT BLOOD FECAL OCCULT BLOO D [facility] Start: 2003 SIGMOIDOSCOPY SIGMOIDOSCOPY [facility] Start: 1993 LIPID SCREEN LIPID SCREEN [facility] Start: 1977 Urine microalbumin profile DTAP,TDAP,TD (1 - Tdap) [facility] Start: 1976 ANNUAL PCP TEAM GLASS SANDER BELT SARAH DISEASE VISIT ANNUAL PCP TEAM CHRONIC DISEASE VISIT [facility] Start: 1976 BP CONTROLLED (<130/80) BP CONTROLLE D (<130/80) [facility] Start: 1976 Hepatitis B surface antibody level LDL CHOLESTEROL [facility] Start: 1976 HEPATITIS C SCREENING HEPATITIS C SC MAXINE [facility] Start: 1976 HIV SCREENING HIV SCREENING [facility] Start: 1970 Adult depression screening assessment DEPRESSION SCREENING [facility] End: 02-03-2023 ECG COMPLETE ECG COMPLETE ECG Routine Persistent atrial fibrillation (HCC) 1 Occurrences starting 02/03/2022 until 02/03/2023 [facility] Work Phone: Comment on above: 1 Occurrences starti ng 02/03/2022 until 02/03[facility]20[facility] Immunization Date Immunization Notes Care Provider Fa lacey 08-31-2021 SARS-CoV-2 (COVID-19 ) Ad26 vaccine, recombinant Ursula Ross [facility] Comment on above: Result Comment: 2021: [id number] 07-23-2021 influenza virus vaccine, unspecified formulation Ursula Love [facility] 12-23-2020 SARS-CoV-2 (COVID-19 ) Ad26 vaccine, recombinant Ursula Ross [facility] 07-30-2018 influenza virus vaccine, unspecified formulation Ursula Love [facility] NEGATED: Highlighted row has not occurred!07-03-2023 influenza virus vaccine, unspecified formulation Ursula Love [facility] Payers Date Payer Category Payer Medicare [id number] 2023 Unknown [id number] 2021 Unknown SHELLIE LAWRENCE PPO [id number] 2021-Present [phone] [address] [place] [address] PPO [id number] 1959 Unknown [id number] 1958 Unknown [id number] 2.16.840.1.300622.3.579.2.593 1958 Unknown [id number] 2.16.840.1.892390.3.579.2.593 1958 Unknown [id number] 2.16.840.1.674803.3.579.2.727 1958 Unknown [id number] 2.16.840.1.410720.3.579.2.72 1958 Unknown [id number] 2.16.840.1.349815.3.579.2.72 1958 Unknown [id number] 2.16.840.1.013620.3.579.2.72 1958 Unknown [id number] 2.16.840.1.633454.3.579.2.72 1958 Unknown [id number] 2.16.840.1.219191.3.579.2.72 1958 Unknown [id number] 2.16.840.1.965351.3.579.2.72 1958 Unknown [id number] 2.16.840.1.864740.3.579.2.72 1958 Unknown [id number] 2.16.840.1.609896.3.579.2.72 1958 Unknown [id number] 2.16.840.1.940859.3.579.2.72 1958 Unknown [id number] 2.16.840.1.789510.3.579.2.72 1958 Unknown [id number] 2.16.840.1.060076.3.579.2.72 1958 Unknown [id number] 2.16.840.1.143238.3.579.2.72 1958 Unknown [id number] 2.16.840.1.611914.3.579.2.727 1958 Unknown [id number] 2.16.840.1.042819.3.579.2.727 1958 Unknown [id number] 2.16.840.1.511552.3.579.2.72 1958 Unknown [id number] 2.16.840.1.306464.3.579.2.72 1958 Unknown [id number] 2.16.840.1.623322.3.579.2.72 1958 Unknown [id number] 2.16.840.1.393798.3.579.2. 1958 Unknown [id number] 2.16.840.1.307958.3.579.2. 1958 Unknown [id number] 2.16.840.1.371158.3.579.2. 1958 Unknown [id number] 2.16.840.1.281964.3.579.2.72 1958 Unknown [id number] 2.16.840.1.868751.3.579.2. 1958 Unknown [id number] 2.16.840.1.519814.3.579.2.72 1958 Unknown [id number] 2.16.840.1.872049.3.579.2.72 1958 Unknown [id number] 2.16.840.1.258104.3.579.2.72 1958 Unknown [id number] 2.16.840.1.586264.3.579.2.72 1958 Unknown [id number] 2.16.840.1.855283.3.579.2.72 1958 Unknown [id number] 2.16.840.1.400000.3.579.2.72 1958 Unknown [id number] 2.16.840.1.672758.3.579.2.727 Social History Date Type Detail Facility Start: 08-25-2014 End: 03-26-2024 Tobacco smoking status NHIS Ex-smoker [facility] Comment on above: Quit in 2013 after M I quit age 53 (39 pack years) Start: 10-25-1957 End: 08-09-2014 History of tobacco use Current smoker [facility] Start: [birth year]-1955 End: 08-09-2014 History of tobacco use Cigarette Smoker [facility] Start: 08-25-2014 End: 02-03-2022 Cigarettes smoked current (pack per day) - Reported 0.5 [facility] Start: 08-25-2014 Tobacco use and exposure Smokeless tobacco non-user [facility] Start: 02-03-2022 Alcohol intake Current drinke r of alcohol (finding) [facility] Start: 1960 Sex Assigned At Not on file [facility] Start: 01-24-2022 End: 02-03-2022 Exposure to SARS-CoV-2 (event) Not sure [facility] Tobacco smoking status No Smokin g Status Entered [facility] Sex Assigned At Male [facility] Start: 04-01-2022 Tobacco smoking status Never s moked tobacco (finding) [facility] Tobacco [facility] status [facility] Comment on above: Quit in 2013 after M I quit age 53 (39 pack years) Goals Date Patient Goal Desired Activity /State 12-28-2023 Functional Status Date Assessment Result Facility 08-16-2023 Functional Status N/A [facility] 04-01-2022 Functional Status [facility] 02-03-2022 to 01-25-2024 RadiologyRadiologyRadiologyRadiologyRadiologyRadiologyLaboratoryRadiologyLaborat oryRadiologyLaboratoryRadiologyLaboratoryRadiologyRadiologyLaboratoryRadiologyLa boratoryRadiologyLaboratoryRadiology Note Date & Type Note Facility 01-25-2024 Hospital Discharge instructions Follow Up Care 01/25/2024 12:17:38 With:Tj BURTON, Ana Rivas, ONC Address: [address] [place] [phone] When: Unknown Comments:cbc, cmp, iron studies in 3mo and 6mofollow-up in 6mo with [employer] [facility] 12-29-2023 Note LDL > 70 therefore c ontinue lipitor 80 mg and will add zetia 10 mg daily Repeat lipid level before next appt in about 3-6 months [facility] 12-29-2023 Note Hypertension is typi jimmie stable with review of his home b/p log. Definitely has white coat syndrome Continue norvasc, clonidine, lisinopril and toprol [facility] 12-29-2023 Note Coronary artery dise ase is stable Continue GDMT- ASA, lipitor, imdur, toprol, and ranexa continue risk factor modifications- heart healthy diet, regular exercise as tolerated and continue all medications. [facility] 12-29-2023 Note Rate stable with top rol Anticoagulation with eliquis and denied any bleeding tendencies. [facility] 12-29-2023 Note Order ABD Aorta US i n 6 months to re-evalulate infrarenal AAA. [facility] 12-29-2023 Hospital Discharge instructions [facility] Up [facility] 12/29/2023 11:16:26 With:Tj BURTON, Ana Rivas, ONC [address] [phone] When: Unknown Comments:IV Injectafer x2B12 injections weekly x4, then monthlycbc, cmp, iron studies in 8wksfollow-up in 8wks with [employer] [facility] 12-29-2023 Note Patient here for [...] All other systems reviewed and are negative. [facility] 12-29-2023 Note [facility] CARDIOLOGY PROGR ESS NOTE [...] an abnormal stress test that showed SENIOR COMPUTER SPECIALIST of the RCA with filling via left to right collaterals. He also had a 70% stenosis in a diagonal branch (the prior report mentions that it is not amenable to intervention). At that time left-ventricular gram showed normal left ventricular ejection fraction at 60%. 2. Paroxysmal atrial fibrillation, status post ablation in 2017 at the [facility]. He also had prior cardioversion. He [...] episodes of atrial fibrillation. He has a AWID machine that he uses to transmit ECG. [...] 2 seconds. Neurol (more content not included)... [facility] 12-29-2023 Note HTN management with goal b/p < 130/80 Monitor b/p at home Routine monitoring- will repeat Echocardiogram in 6 months with f/u with Dr Gore. D/W pt that he is to call 911 for sharp, tearing chest pain or back pain, call office for b/p consistently > 130/80 and he voiced understanding [facility] 08-29-2023 Note Chief Complaint consultation for positive [...] 28.0-28.9,adult BPH (benign prostatic hyperplasia) CAD in [place] artery Controlled type 2 diabetes mellitus without [...] mg= 2 tab(s (more content not included)... [facility] Comment on above: Result Comment: Elec emmieally Signed By: Jose Luis THOMAS MD\Date and Time Signed: 08/29/23 15:00 EST 08-16-2023 [...] include: ?8 oz (237 mL) of milk, vzgdyjd-mvbtymodhbwp-gttyt milk, and calcium-fortifiedfruit juice. Calcium-fortified means that [...] ?Spinach (cooked), rhubarb, beets, sweet potatoes, and [place]alander chard. ?Peanuts. ?Potato chips, cayman islander fries, and baked potatoes with skin on. ?Nuts and nut products. ?Chocolate. If you regularly take a diuretic medicine, make sure to eat at least 1 or 2 servings of fruits or vegetables that are high in potassium each day. These include: ?Avocado. ?Banana. ?[place], prune, carrot, or tomato juice. ?Baked potato. [...] magnesium, fish oil, or vitamin B6. Take rpnu-jzy-hoxhjib and prescription medicines only as told by [...] Casseroles. Pizza. Lasagna. Frozen meals. Potato chips. Yi fries. The items listed above may not [...] provider. Document Revised: 06/13/2022 Document Reviewed: 06/13/2022 [employer] Patient Education 2022 [employer]. Follow Up Care 08/08/2023 13:37:21 With:Teo NIELSON, SHERRY Nicole, URO Address: When: Unknown Comments:PRN [facility] 06-21-2023 Note [facility] Subjective Marcelle Deutsch is a 63 y.o. year old male patient being seen for Follow-up (6 month F/U) Patient Active Problem List Diagnosis Abnormal stress test Atrial fibrillation ([facility]) CAD (coronary artery disease) Coronary arteriosclerosis Chronic [...] an abnormal stress test that showed SENIOR COMPUTER SPECIALIST of the RCA with filling via left to right collaterals. He also had a 70% stenosis in a diagonal branch (the prior report mentions that it is not amenable to intervention). At that time left-ventricular gram showed normal left ventricular ejection fraction at 60%. 2. Paroxysmal atrial fibrillation, status post ablation in 2017 at the [facility]. He also had prior cardioversion. He [...] mg) by mouth (more content not included)... [facility] 01-04-2023 Note CARDIAC STRESS TEST Requesting Physician: [...] and reported myocardial perfusion scan findings. [facility] 04-01-2022 Hospital Discharge instructions Patient Education [...] quitting, ask your health care provider. Take mjva-yha-uofqudf and prescription medicines only as told by [...] 10/07/2014 Document Revised: 05/27/2019 Document Reviewed: 05/03/2019 [employer] Patient Education 2020 [employer]. 04/01/2022 13:38:40 Hyperglycemia Hyperglycemia Hyperglycemia occurs when [...] or polycystic ovarian syndrome (PCOS). Being of [place]izen [place], -Dutch, /, or / descent. What are the [...] these instructions at home: General instructions Take pshe-lvr-lwijnud and prescription medicines only as told by [...] 03/28/2002 Document Revised: 06/19/2017 Document Reviewed: 06/19/2017 [employer] Patient Education 2020 [employer]. 04/01/2022 13:38:33 Atrial Fibrillation Atrial Fibrillation Atrial [...] may be diagnosed with: Electrocardiogram (ECG). Ambulatory director cardiac. This device records your heartbeats for 24 [...] 10/02/2006 Document Revised: 11/22/2018 Document Reviewed: 11/23/2018 [employer] Patient Education 2020 [employer]. 04/01/2022 13:38:29 Pinched Nerve Pinched Nerve A [...] work. Follow these instructions at home: Take ouqo-fpp-iluxbop and prescription medicines only as told by [...] leg, or the back or neck. Take htgn-lnq-alylogt and prescription medicines only as told by [...] 09/22/2003 Document Revised: 10/19/2018 Document Reviewed: 10/16/2018 [employer] Patient Education Extole. [facility] 02-03-2022 Note HNO ID: [id number] Author: Jannet Gonzalez MD Service: ? Author Type: Physician Type: Progress Notes Filed: 02/03/2022 9:58 AM Note Text: [facility] [place] Emiliano Plascencia Department of Cardiovascular Medicine SECTION OF CARDIAC PACING and ELECTROPHYSIOLOGY OUTPATIENT VISIT DATE February 03, 2022 OUTPATIENT VISIT TYPE CONSULTATION PRIMARY CARE PHYSICIAN: Mark Browning DO [address] [place] [address] CHIEF COMPLAINT: PAF HISTORY OF PRESENT ILLNESS [...] he is in SR. He denies syncope. [id number] (HTN, CAD, DM) tolerating Xarelto PAST MEDICAL HISTORY Diagnosis Date - Atrial fibrillation (HCC) 2013 - CAD (coronary artery disease) 09/02/2014 - Diabetes mellitus (HCC) - Dyslipidemia - Hypertension - Metabolic syndrome PAST SURGICAL HISTORY Procedure Laterality Date - AFIB PVI W/COMPL EP STUDY 07/10/2017 - CARDIAC CATH 09/02/2014 SENIOR COMPUTER SPECIALIST of proximal RCA. 70% ostial D1. Preserved [...] patient General: L (more content not included)... [facility] Evaluation + Plan note No data available for this section [facility] Evaluation + Plan note Future Appointments Appointment Date:01/03/2024 08:00:00 AM Scheduled Provider: Location:[facility] Appointment Type:FM Medicare Wellness [place] Appointment Date:01/03/2024 08:40:00 AM Scheduled Provider:Ursula Love MD Location:[facility] Appointment Type: Open Diagnostic Tests PendingPSA Free & Total 07/03/23Microalbumin Level Urine 07/03/23U Protein/Creat Ratio 07/03/23 [facility] Evaluation + Plan note Future Appointments Appointment Date:01/03/2024 08:00:00 AM Scheduled Provider: Location:[facility] Date:01/03/2024 08:40:00 AM Scheduled Provider:Ursula Love MD Location:[facility] Appointment Type:[facility] Evaluation + Plan note Future Appointments Appointment Date:08/29/2023 02:20:00 PM Scheduled Provider:Jose Luis THOMAS MD Location[facility] Appointment Type: Appointment Date:01/03/2024 08:00:00 AM Scheduled Provider: Location:[facility] Appointment Type:FM Medicare Wellness Welcome Appointment Date:01/03/2024 08:40:00 AM Scheduled Provider:Ursula Love MD Location:[facility] Appointment Type: Open Diagnostic Tests PendingUrine Culture 08/04/23 Future Scheduled TestsCT Abdomen/Pelvis w/o Contrast 08/02/23 [facility] Evaluation + Plan note Future Appointments Appointment Date:08/29/2023 02:20:00 PM Scheduled Provider:Jose Luis THOMAS MD Location:[facility] Appointment Type: Appointment Date:01/03/2024 08:00:00 AM Scheduled Provider: Location:[facility] Appointment Type:FM Medicare Wellness [place] Appointment Date:01/03/2024 08:40:00 AM Scheduled Provider:Ursula Love MD Location:[facility] Appointment Type:[facility] Evaluation + Plan note Future Appointments Appointment Date:08/29/2023 02:20:00 PM Scheduled Provider:Jose Luis THOMAS MD Location:[facility] Appointment Type: Appointment Date:01/03/2024 08:00:00 AM Scheduled Provider: Location:[facility] App[facility]ment [facility] App[facility] Date:01/03/2024 08:40:00 AM Scheduled Provider:Ursula Love MD Location:[facility] Appointment Type: Open Future Scheduled TestsUS Aorta 08/08/[address] [facility] Evaluation + Plan note Future Appointments Appointment Date:01/03/2024 08:00:00 AM Scheduled Provider: Location:[facility] Appointment Type:FM Medicare Wellness Welcome Appointment Date:01/03/2024 08:40:00 AM Scheduled Provider:Ursula Love MD Location:[facility] Appointment Type: Open Future Scheduled TestsUS Aorta 08/08/24 [facility] Evaluation + Plan note Future Appointments Appointment Date:12/17/2024 08:00:00 AM Scheduled Provider: Location:[facility] Appointment Type:FM Medicare Wellness Subsequent Diagnostic Tests PendingHCV Antibody RFX to Quant PCR 12/18/23 Future Scheduled TestsCT Chest, Low Dose Screening 12/18/23US Aorta 08/08/24 [facility] Evaluation + Plan note Future Appointments Appointment Date:03/25/2024 10:45:00 AM Scheduled Provider:Ursula Love MD Location:[facility] Appointment Type: Open Appointment Date:12/17/2024 08:00:00 AM Scheduled Provider: Location:[facility] Appointment Type:FM Medicare Wellness Subsequent Future Scheduled TestsUS Aorta 08/08/24 [facility] Evaluation + Plan note Future Appointments Appointment Date:01/25/2024 09:00:00 AM Scheduled Provider:Ana Kumar [facility] Type:ONC Office Visit [facility] ([facility]) Appointment Date:03/25/2024 10:45:00 AM Scheduled Provider:Ursula Love MD Location:[facility] Appointment Type: Open Appointment Date:12/17/2024 08:00:00 AM Scheduled Provider: Location:[facility] Appointment Type:FM Medicare Wellness Subsequent Diagnostic Tests PendingImmunofixation Serum [...] Date:03/25/2024 10:45:00 AM Scheduled Provider:Ursula Love MD Location:[facility] Appointment Type: Open Appointment Date:12/17/2024 08:00:00 AM Scheduled Provider: Location:[facility] Appointment Type: Medicare Wellness Subsequent [...] Date:03/25/2024 10:45:00 AM Scheduled Provider:Ursula Love MD [facility] App[facility] Type:FM Open Appointment Date:04/11/2024 02:00:00 PM [...] ([facility]) Appointment Date:12/17/2024 08:00:00 AM Scheduled Provider: Location:[facility] Appointment Type:FM Medicare Wellness Subsequent Appointment Date:12/19/2024 [...] (FT) Appointment Date:03/14/2024 10:45:00 AM Scheduled Provider: Location:[facility] Appointment Type:ONC Injection ([facility]) Appointment Date:03/25/2024 10:45:00 AM Scheduled Provider:Ursula Love MD Location:[facility] Appointment Type:FM Open Appointment Date:04/11/2024 [...] (FT) Appointment Date:12/17/2024 08:00:00 AM Scheduled Provider: Location:[facility] Appointment Type: Medicare Wellness Subsequent [...] Date:03/25/2024 10:45:00 AM Scheduled Provider:Ursula Love MD Location:[facility] Appointment Type:FM Open Appointment Date:04/11/2024 02:00:00 PM [...] (FT) Appointment Date:12/17/2024 08:00:00 AM Scheduled Provider: Location:[facility] Appointment Type: Medicare Wellness Subsequent [...] Appointment Date:03/14/2024 10:15:00 AM Scheduled Provider:Ana Kumar [facility] Appointment Type:ONC Office Visit 30 ([facility]) Appointment Date:03/14/2024 10:45:00 AM Scheduled Provider: [facility] Appointment Type:ONC Injection ([facility]) Appointment Date:03/26/2024 10:45:00 AM Scheduled Provider:Ursula Love MD Location:[facility] Appointment Type: Open Appointment Date:04/11/2024 02:00:00 PM Scheduled Provider: [facility] Appointment Type:ONC Injection ([facility]) Appointment Date:05/09/2024 02:00:00 [...] (FT) Appointment Date:12/17/2024 08:00:00 AM Scheduled Provider: Location:[facility] Appointment Type: Medicare Wellness Subsequent Appointment Date:12/19/2024 02:15:00 PM Scheduled Provider: Location:[facility] Appointment Type:ONC Injection (FT) Appointment Date:01/16/2025 02:05:00 PM Scheduled Provider: Location:[facility] Appointment Type:ONC Injection (FT) Appointment Date:02/13/2025 02:15:00 PM Scheduled Provider: Location:.ONCOLOGY Appointment Type:ONC Injection (FT) Appointment Date:03/13/2025 02:15:00 PM Scheduled Provider: Location:.ONCOLOGY Appointment Type:ONC Injection ([facility]) Future Scheduled [facility] 08/08/24 [facility] Evaluation + Plan note Future Appointments Appointment Date:03/26/2024 10:45:00 AM Scheduled Provider:Ursula Love MD Location:[facility] Appointment Type:FM Open Appointment Date:04/11/2024 [...] (FT) Appointment Date:12/17/2024 08:00:00 AM Scheduled Provider: Location:[facility] Appointment Type: Medicare Wellness Subsequent [...] (FT) Appointment Date:12/17/2024 08:00:00 AM Scheduled Provider: Location:[facility] Appointment Type:FM Medicare Wellness Subsequent Appointment Date:12/19/2024 [...] Evaluation + Plan note Future Appointments Appointment Date:06/06/2024 02:00:00 PM Scheduled Provider: Location:.ONCOLOGY [...] (FT) Appointment Date:12/17/2024 08:00:00 AM Scheduled Provider: Location:[facility] Appointment Type:FM Medicare Wellness Subsequent Appointment Date:12/19/2024 [...] Primary [facility] No data available for this section [facility] Progress note No data available for this section [facility] Reason for referral (narrative)* Outpatient Procedure (Routine) - Authorized Specialty Diagnoses / Procedures Referred By Contac t Referred [facility] Diagnoses Persistent atrial fibrillation (HCC) Procedures ECG COMPLETE ECG ROUTINE ECG W/LEAST 12 LDS W/I&R Jannet Gonzalez MD [address] [place] [address] [address] Referral ID Status Reason Start Date Expiration Date Visits Requested Visits Authorized [id number] Authorized Auto-Generat ed Referral 02/03/2022 02/03/2023 1 1 [facility] Summary Purpose Family History No Family History [...] FoundDocuments on File Type Date Recorded Patient Skid Man Expl anation Advance Directive(s) 07/10/2017 5:38 AM [...] section and content) DATE CREATED AUTHOR 10/08/2020 [facility] DATE CREATED AUTHOR AUTHOR'S ORGANIZ ATION 02/05/2022 [facility] DATE CREATED AUTHOR AUTHOR'S ORGANIZ ATION [facility]/17/2023 [facility] DATE CREATED AUTHOR AUTHOR'S ORGANIZ ATION 01/12/2024 [facility] DATE CREATED AUTHOR AUTHOR'S ORGANIZ ATION 03/12/2024 [facility] DATE CREATED AUTHOR AUTHOR'S ORGANIZ ATION 03/13/2024 [facility] DATE CREATED AUTHOR AUTHOR'S ORGANIZ ATION 04/13/2024 [facility] DATE CREATED AUTHOR AUTHOR'S ORGANIZ ATION 05/15/2024 [facility] Source Comments (unrecognize d section and content) In the event this informatio n is protected by the Federal Confidentiality of Alcohol and Drug Abuse Patient Records regulations: The Federal rules restrict any use of the information to criminally investigate or prosecute any alcohol or drug abuse patient.[facility] Care Teams (unrecognized sec tion and content) Wearing Apparel Assembler Relationship Specialty Start Date End Date Nam Mark Gurvinder PCP - General Family Practice 08/11/14 Jannet Gonzalez MD [address] [place] [address] Primary Staff Physician Cardiology 02/03/22 FOR RECORDS [...] BE BASED ON THE PRIMARY CLINICAL RECORDS. [facility]. provides no warranty or guarantee of the accuracy or completeness of information in this document.
--- NOTE | 2024-05-29 06:56 | CA_ITS ---
Patient Name: MARCELLE DEUTSCH MR#: [id number] : 1960 Exam Date: 05/29/2024 Ordering Doctor: PARISA HERRON ECHOCARDIOGRAM REPORTs PROCEDURE: CA ECHO DOPPLER COMPLETE INDICATIONS: Coronary atherosclerosis, Aneurysm ascending aorta COMPARISON: None. DESCRIPTION: COMPLETE ECHOCARDIOGRAM Real-time transthoracic echocardiography with 2D, M-mode, spectral and color flow Doppler performed. QUALITY: Technical quality was good. BSA 1.97 LEFT VENTRICLE: Normal chamber size. Normal left ventricular wall thickness. LV EF: Global left ventricular systolic function is normal. Calculated left ventricular ejection fraction is 67%. No obvious wall motion abnormalities. DIASTOLIC: Normal diastolic function. ATRIAL SEPTUM: Inadequately seen. LEFT ATRIUM: Mild dilatation. RIGHT ATRIUM: Moderate dilatation. RIGHT VENTRICLE: Normal chamber size. Normal right ventricular systolic function. TRICUSPID VALVE: Normal mobility and thickness. No stenosis with trivial regurgitation. No evidence of pulmonary hypertension. RVSP 26mmHg MITRAL VALVE: Normal mobility and thickness. No evidence of mitral valve stenosis. There is no mitral annular calcification. Mild mitral regurgitation. AORTIC VALVE: Normal trileaflet appearance. No visible sclerosis. Normal leaflet mobility. No evidence of aortic valve stenosis. Mild aortic regurgitation. AORTIC ROOT: Mildly dilated. Measuring 4.0cm. The ascending aorta is dilated measuring 3.9 x 4.1cm. PULMONIC VALVE: Normal thickness and mobility. No stenosis. Trivial regurgitation. PERICARDIUM: No evidence of pericardial effusion. IVC: Collapses with inspirations. Normal size. CONCLUSION: 1. Global left ventricular systolic function is normal; visually estimated ejection fraction is 60 to 65% 2. Normal right ventricular size and systolic function 3. Biatrial enlargement 4. Normal diastolic function 5. Mild mitral regurgitation 6. Mild aortic valve regurgitation 7. The aortic root and ascending aorta are mildly dilated Adult Echocardiography Procedure Report Left Ventricle LVEDD (3.7 - 5.6 cm): 5.02 cm LVESD (2.2 - 4.0 cm): 3.52 cm LVIVS thickness (0.6 - 1.2 cm): 1.14 cm LVPW thickness (0.5 - 1.0 cm): 1.01 cm e': 0.13 m/s E - e': 6.65 LVOT Max Gradient: 4.76 mm[Hg] LVOT Area (cm2): 1.09 m/s Peak Velocity (LVOT): 1.09 m/s Mean Velocity (LVOT): 0.66 m/s LVOT Diameter 2.28 cm Left Ventricular Ejection Fraction: 67.41 % Left Atrium LA Volume Index (2D A2C): 40.94 ml/m2 Left Atrium Systolic Dimension: 3.79 cm Mitral Valve MV E to A Ratio: 1.37 Mitral Valve A-Wave Peak Velocity: 0.62 m/s Mitral Valve E-Wave Peak Velocity: 0.85 m/s Right Ventricle RV Internal Diastolic Dimension: 3.02 cm Aorta AO Root Diam: 3.95 cm Ascending Ao Diam: 3.89 cm Aortic Valve AoV Area (Peak Jarett): 3.33 cm2, 3.33 cm2 AoV Area (VTI): 3.18 cm2, 3.18 cm2 Deceleration Shannon: 1.55 m/s2 Pressure Half-Time: 623.36 ms Peak Velocity(Antegrade Flow): 1.34 m/s Peak Gradient(Antegrade Flow): 7.18 mm[Hg] Mean Velocity(Antegrade Flow): 0.91 m/s Mean Gradient(Antegrade Flow): 3.77 mm[Hg] Velocity Time Integral: 34.56 cm Tricuspid Valve Peak Velocity (Regurgitant Flow): 2.43 m/s Pulmonic Valve Mean Gradient: 2.21 mm[Hg], 2.22 mm[Hg] Mean Velocity: 0.70 m/s, 0.70 m/s Peak Velocity: 1.00 m/s Peak Gradient: 3.97 mm[Hg], 3.97 mm[Hg] Right Atrium Right Atrium Systolic Pressure: 54.21 ml, 54.21 ml Dictated by: Shan Lancaster M.D. on 05/29/2024 at 17:52 Approved by: Shan Lancaster M.D. on 05/29/2024 at 17:55
--- NOTE | 2024-05-29 07:42 | US_ITS ---
The [address] [address] Patient Name: MARCELLE DEUTSCH MRN: [id number] date: 1960 Sex: M Assigned Patient Location: CARD Current Patient Location: CARD Accession/Order Number: [id number] Exam Date: 05/29/2024 07:43 Report Date: 05/29/2024 10:32 At the request of: PARISA HERRON Procedure: US abdominal aortic aneurysm CLINICAL DATA: Evaluate for abdominal aortic aneurysm. PROCEDURE: Duplex Ultrasound of the Abdominal Aorta TECHNIQUE: Grayscale, color doppler, and spectral waveform analysis was performed COMPARISON: None. FINDINGS: Color flow was seen in the abdominal aorta. The waveform was multiphasic. Measurements as follows: Proximal Aorta: 2.9 x 2.9 cm. Mid Aorta: 3.6 x 2.7 cm. Distal Aorta: 2.6 x 3.0 cm. No iliac artery aneurysm was seen. US/US abdominal aortic aneurysm IMPRESSION: 3.6 cm mid abdominal aortic aneurysm. Electronically authenticated by: Burak MORRISON Date: 05/29/2024 10:32
--- NOTE | 2024-05-29 07:42 | US_ITS ---
[address] [address] Patient Name: MARCELLE DEUTSCH MRN: [id number] date: 1960 Sex: M Assigned Patient Location: CARD Current Patient Location: CARD Accession/Order Number: [id number] Exam Date: 05/29/2024 07:43 Report Date: 05/29/2024 10:32 At the request of: PARISA HERRON Procedure: US carotid duplex BI DUPLEX ULTRASOUND EXAMINATION OF THE CAROTID ARTERIES. COMPARISON: None. HISTORY / INDICATIONS: Atherosclerosis. Hypertension. TECHNIQUE: Bilateral common carotid arteries, extracranial internal and external carotid arteries are evaluated with lucia-scale imaging, color Doppler, and spectral analysis according to a standard protocol. ICA-CCA ratios are calculated with brand representative peak-systolic velocities and recorded. Vertebral arteries are evaluated in one segment to evaluate for patency and character of flow. Comparison with previous evaluation is performed when available. Unless otherwise specified, all velocities are measured in cm/sec. Carotid stenosis is reported according to validated velocity parameters, similar to NASCET criteria. FINDINGS: Right Carotid: Plaque was noted. Velocity measurements as follows: Internal Carotid Artery 48/15, 63/19, and 61/19. ICA to CCA ratio: 1.6. Left Carotid: Plaque was noted. Velocity measurements as follows: Internal Carotid Artery 51/15, 58/17, and 65/19. ICA to CCA ratio: 1.2. Antegrade flow was seen in both vertebral arteries. CONCLUSION: 1. Less than 50% stenosis of the right ICA. 2. Less than 50% stenosis of the left ICA. 3. Vertebral arteries are patent and demonstrate antegrade flow. Electronically authenticated by: Burak MORRISON Date: 05/29/2024 10:32
== END 2024-05-29 06:53 | disposition home or self-care (01) ==
LOC: CARD 06:52
PROVIDERS: PCP Family Medicine; Visit Provider Nurse Practitioner
DX: I25.10 Atherosclerotic heart disease of native coronary artery without angina pectoris (principal); I71.21 Aneurysm of the ascending aorta, without rupture; I71.43 Infrarenal abdominal aortic aneurysm, without rupture; E78.5 Hyperlipidemia, unspecified; I79.8 Other disorders of arteries, arterioles and capillaries in diseases classified elsewhere; I71.40 Abdominal aortic aneurysm, without rupture, unspecified
CPT/HCPCS: 76775; 93306; 93880

== ENCOUNTER 2024-07-10 12:00 | Outpatient (OUT) | payer MEDICARE, SELFPAY ==
--- NOTE | 2024-07-10 13:40 | PM.CN ---
Consult Note: HPI Data of Consult Patient: new to practice Requesting Physician: Love Snow NP Primary Care Provider: URSULA LOVE Consult Narrative Reason for consult: chronic hip pain Narrative: Donny Doherty a pleasant 64 year old male presents for evaluation of chronic bilateral hip pain. Pt has a hx of mild hip OA. Recently underwent right and left hip injections with Dr Newman with 1 month of improvement per pt. Patient rating pain 8/10 burning ache increasing with standing walking, lying on his side, stairs, bending, activity, and sleeping flat. Patient has a hx of cervical DDD and radiculopathy, no recent imaging of lumbar spine but i suggest lumbar DDD. patient cannot take NSAIDs as he is on ASA and eliquis. engaged in daily HEP without improvement. utilizing tylenol PM with little to no relief. Patients biggest complaint is inability to sleep due to pain. denies numbness tingling or weakness to BLE. cc:: CC: Love Snow NP Review of Systems ROS Status of ROS 10 or more systems reviewed and unremarkable except as noted in history and below Musculoskeletal Reports: back pain and joint pain PFSH [facility] Medical History (Updated 07/10/24 @ 13:55 by Love Snow NP) Arthritis ?M19.90 - Unspecified osteoarthritis, unspecified site (ICD-10) Vitamin B12 deficiency (dietary) anemia ?D51.8 - Other vitamin B12 deficiency anemias (ICD-10) Iron deficiency anemia ?D50.9 - Iron deficiency anemia, unspecified (ICD-10) Tear of distal tendon of biceps ?S46.219A - Strain of muscle, fascia and tendon of other parts of biceps, unspecified arm, initial encounter (ICD-10) History of heart attack ?I25.2 - Old myocardial infarction (ICD-10) Hypertension ?I10 - Essential (primary) hypertension (ICD-10) Positive colorectal cancer screening using Cologuard test ?R19.5 - Other fecal abnormalities (ICD-10) Hyperlipidemia ?E78.5 - Hyperlipidemia, unspecified (ICD-10) Atrial fibrillation ?I48.91 - Unspecified atrial fibrillation (ICD-10) Kidney stone ?N20.0 - Calculus of kidney (ICD-10) GERD (gastroesophageal reflux disease) ?K21.9 - Gastro-esophageal reflux disease without esophagitis (ICD-10) External bleeding hemorrhoids ?K64.4 - Residual hemorrhoidal skin tags (ICD-10) Dysuria ?R30.0 - Dysuria (ICD-10) Type 2 diabetes mellitus ?E11.9 - Type 2 diabetes mellitus without complications (ICD-10) CAD (coronary artery disease) ?I25.10 - Atherosclerotic heart disease of [place] coronary artery without angina pectoris (ICD-10) Aortic aneurysm ?I71.9 - Aortic aneurysm of unspecified site, without rupture (ICD-10) Surgical History Tear of biceps tendon ?S46.219A - Strain of muscle, fascia and tendon of other parts of biceps, unspecified arm, initial encounter (ICD-10) History of tonsillectomy ?Z90.89 - Acquired absence of other organs (ICD-10) H/O repair of rotator cuff ?Z98.890 - Other specified postprocedural states (ICD-10) H/O cardiac catheterization ?Z98.890 - Other specified postprocedural states (ICD-10) H/O cardiac radiofrequency ablation ?Z98.890 - Other specified postprocedural states (ICD-10) Family History Other Family history of myocardial infarction Heart failure Social History Within the past year, how often did you have a drink containing alcohol: 4 or more times a week Within the past year, how many standard drinks containing alcohol did you have on a typical day: 1 or 2 Within the past year, how often did you have six or more drinks on one occasion: never Total score: 0 Score interpretation: Questions 2 and 3 are 0. It can be assumed that the patient's drinking is below the recommended limits. However, please confirm the accuracy of the patient's alcohol intake over the last few months. 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 [employer] Known occupational exposures/hazards: No Highest level of school completed/degree received: high school graduate Meds Home Medications and Allergies Home Medications ?Medication ?Instructions ?Recorded ?Confirmed ?Type amlodipine 5 mg tablet 5 mg PO DAILY 09/11/23 04/17/24 History aspirin 81 mg chewable tablet 81 mg PO DAILY 09/11/23 04/17/24 History atorvastatin 80 mg tablet 80 mg PO DAILY 09/11/23 04/17/24 History clonidine 0.1 mg PO BID 09/11/23 04/17/24 History diltiazem HCl 30 mg PO DAILY PRN atrial 09/11/23 04/17/24 History fibrillation isosorbide mononitrate 120 mg 120 mg PO QAM 09/11/23 04/17/24 History tablet,extended release 24 hr lisinopril 20 mg tablet 20 mg PO DAILY 09/11/23 04/17/24 History metformin 500 mg tablet 1,000 mg PO BID 09/11/23 04/17/24 History metoprolol succinate 100 mg 200 mg PO DAILY 09/11/23 04/17/24 History tablet,extended release 24 hr (Toprol XL) omeprazole 20 mg capsule,delayed 20 mg PO DAILY 09/11/23 04/17/24 History release ranolazine 500 mg tablet,extended 500 mg PO BID 09/11/23 04/17/24 History release,12 hr apixaban 5 mg tablet (Eliquis) 5 mg PO BID 04/16/24 04/17/24 History ezetimibe 10 mg tablet 10 mg PO DAILY 04/16/24 04/17/24 History Allergies Allergy/AdvReac Type Severity Reaction Status Date / Time Penicillins AdvReac Mild Rash Verified 04/17/24 10:46 Exam Constitutional Documenting provider has reviewed patient's vital signs: yes Common normals: no apparent distress, oriented x3, healthy appearing, alert and well nourished General appearance: cooperative [facility] Common normals: normocephalic, hearing grossly normal bilaterally and moist oral mucous membranes Head and scalp: normocephalic Eye Common normals: PERRL Pupil: PERRL Neck & C-Spine Common normals: full ROM General: normal visual inspection Chest Common normals: inspection of chest normal Respiratory Common normals: normal respiratory effort, no retractions and no use of accessory muscles Back & Pelvis Lumbar spine/lower back: lumbar ROM normal, pain with ROM, lumbar spinal tenderness and straight leg raise negative bilaterally; no paraspinal muscle tenderness and no paraspinal muscle spasm Sacroiliac joints: SI joint(s) abnormal Other: left > right SIJ positive shelby(patricks), gaenslens, thigh thrust, compression test no radiculopathy on exam, strength 5/5 in BLE, sensation intact BLE mild tenderness to bilateral GTB negative internal and external log roll of bilateral hips Extremity Common normals: normal to inspection and full ROM Right lower extremity: no findings for hip joint Left lower extremity: no findings for hip joint Neuro Common normals: oriented x3, CN's II-XII intact bilaterally, moves all extremities, no focal motor deficits, no sensory deficits noted and deep tendon reflexes 2+ bilaterally Sensorium/orientation: alert Motor exam: strength 5/5 throughout and no movement abnormalities noted Psych Common normals: mental status grossly normal, thought process normal, cooperative, affect normal, speech normal and activity/motor behavior normal Speech: normal speech Thought process: normal thought process Results Additional Findings Additional findings: If on a controlled substance or opioids, I have checked an [place] report on this patient and there are no aberrancies noted in the prescribing history.??If on a controlled substance or opioid a drug screen was completed and reviewed within the last year, and if there has not been a drug screen completed we ordered one today to monitor higher risk, state monitored pain medication use. As part of providing excellent, safe, comprehensive care, the following was completed at our patient's visit: 1. A medication reconciliation and review to ensure accurate knowledge of current/active medications, including asking our patients to inform us about any [id number] medications or herbal remedies/nutritional supplements/alternative remedies. 2. A review to specifically ensure our patients have had annual screening for screening for depression, screening for tobacco use, and screening for unhealthy alcohol use. For concerning screenings had a discussion with the patient, provided patient education, and recommended follow-up with primary care provider when appropriate. If patient noted with a risk of falling, they received education on strength, gait, and balance training to prevent future risk of falling. Assessment and Plan Assessment and Plan (1) Sacroiliitis: (2) Lumbar spondylosis: (3) Lumbar degenerative disc disease: (4) Lumbar stenosis with neurogenic claudication: (5) Myofascial pain: (6) Encounter for medication monitoring: Plan physical exam consistent with SIJ pain, left >right. however with hx of lumbar pain and injury to thoracic/lumbar spine i suspect he may have stenosis in his upper lumbar spine contributing to his symptoms. we will update lumbar xray to evaluate lumbar spondylosis and for DDD, consider lumbar MRI based on xray results will trial bilateral SIJ injection upon results start baclofen 10mg BID PRN pain continue tylenol PRN update UDS today in consideration of PRN opioid therapy as pt cannot take NSAIDs and has failed tylenol f/u based on imaging results
--- OUTSIDE RECORDS SUMMARY | 2024-07-11 09:13 | XMS_ITS | CCD ---
Author Organization [facility] CliniSynd Care Team Providers Care Beater Dumper Name Role Phone Mark Browning Primary Care Provider Jannet Gonzalez MD Unavailable Ursula Love Primary Care Physician URSULA LOVE Admitting Unavailable URSULA LOVE Attending Unavailable URSULA LOVE Primary Care Unavailable URSULA LOVE Consulting Unavailable BAO, DR MOSCOSO Admitting Unavailable BAO, DR MOSCOSO Attending Unavailable URSULA LOVE Primary Care Unavailable DALLAS, DR JANNET Parry Consulting Unavailable MOUKAHUSSEIN, DR [...] Unavailable Ana Spencer Admitting Unavailable Juan Antonio, SCHOOL 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Carlo Richard Attending Unavailable Ursula Love Attending Unavailable [...] Unavailable RossUrsula E. Attending Unavailable Juan Antonio, SCHOOL 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 Karen L Attending Unavailable RossUrsula E. Attending Unavailable Ross, Ursula E. Admitting Unavailable Juan Antonio, SCHOOL 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 Karen L Attending Unavailable Juan Antonio, SCHOOL 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 Karen L Admitting Unavailable Demboske, Ana Rivas [...] Propensity to adverse reactions to drug [facility] (1 source) Penicillins Drug allergy (disorder) 4 [facility] (1 source) Penicillins Propensity to adverse reactions to drug 4 [facility] (2 sources) No Known Medication Allergies; 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: [No Known Medication Allergies] Propensity to adverse reactions (disorder) [facility] Repository Medications Current Medications Medication Drug Class(es) [...] day(s), # 90 tab(s), Refills(s) 0, Pharmacy: [facility]/pharmacy #[id number] Start Date: 04/01/22 Stop Date: 05/01/22 [...] DAILY, # 90 tab(s), Refills(s) 1, Pharmacy: [facility]/pharmacy #[id number], 179, cm, 03/26/24 10:53:00 EDT, Height/Length Dosing, 86, kg, 03/26/24 10:53:00 EDT, Weight Dosing Start Date: 03/26/24 Status: Ordered Start: 07-06-2023 lisinopril 20 mg Tab See Instructions, TAKE 1 TABLET DAILY, # 90 tab(s), Refills(s) 1, Pharmacy: [facility], 178, cm, 12/18/23 13:19:00 EST, Height/Length Dosing, [...] Daily, # 90 tab(s), Refills(s) 1, Pharmacy: [facility], 178, cm, 12/19/22 9:57:00 EST, Height/Length [...] Daily, # 30 tab(s), Refills(s) 0, Pharmacy: [facility]/pharmacy #[id number] Start Date: 04/01/22 Status: Ordered metFORMIN hydrochloride 500 mg oral tablet (20 sources) Biguanide Start: 4 metformin 500 mg Tab See Instructions, TAKE 2 TABLETS TWICE A DAY, # 360 tab(s), Refills(s) 1, Pharmacy: [facility], 179, cm, 03/26/24 10:53:00 EDT, Height/Length Dosing, 86, kg, 03/26/24 10:53:00 EDT, Weight Dosing Start Date: 06/19/24 Status: Ordered Start: 07-06-2023 metformin 500 mg Tab See Instructions, TAKE 2 TABLETS TWICE A DAY, # 360 tab(s), Refills(s) 1, Pharmacy: [facility], 178, cm, 12/18/23 13:19:00 EST, Height/Length Dosing, 89.1, kg, 12/18/23 13:19:00 EST, Weight Dosing Start Date: 12/19/23 Status: Ordered Start: 04-25-2023 take 2 tablets by mo [facility] twice daily metformin 500 mg Tab 1,000 mg = 2 tab(s), Oral, BID, TAKE TWO TABLETS BY MOUTH TWICE A DAY, # 360 tab(s), Refills(s) 1, Pharmacy: [facility], 178, cm, 12/19/22 9:57:00 EST, Height/Length Dosing, 90.4, kg, 12/19/22 9:57:00 EST, Weight Dosing Start Date: 04/25/23 Status: Ordered Start: 04-01-2022 End: 09-28-2022 take 2 tablets by mouth twice daily metformin 500 mg ER Tab 1,000 mg = 2 tab(s), Oral, BID, X 90 day(s), # 360 tab(s), Refills(s) 1, [facility] Start Date: 04/01/22 Stop [...] Ordered Start: 08-29-2014 take 1 tablet by [facility] once daily Toprol XL 100 mg Tab-ER 100 mg = 1 tab(s), Oral, Daily, Refills(s) 0 Start Date: 08/29/14 Status: Ordered take 1 tablet by [facility] once daily metoprolol succinate ER (TOPROL XL) 200 mg 24 hr tablet Take 200 mg by mouth once daily. Active Comment on above: Take 200 mg by mouth once daily. omeprazole 20 mg delayed release oral capsule (20 sources) Proton Pump Inhibitor Start: 05-06-2024 omeprazole 20 mg Cap-DR See Instructions, TAKE 1 CAPSULE DAILY, # 90 cap(s), Refills(s) 1, Pharmacy: [facility], 179, cm, 03/26/24 10:53:00 EDT, Height/Length Dosing, 86, kg, 03/26/24 10:53:00 EDT, Weight Dosing Start Date: 05/06/24 Status: Ordered Start: 11-20-2023 take 1 capsule by mo [facility] once daily omeprazole 20 mg Cap-DR 20 mg = 1 cap(s), Oral, Daily, # 90 cap(s), Refills(s) 1, Pharmacy: [facility], 178, cm, 08/29/23 14:28:00 EST, Height/Length Dosing, 90.8, kg, 08/29/23 14:28:00 EST, Weight Dosing Start Date: 11/20/23 Status: Ordered Start: 07-03-2023 take 1 capsule by [facility] once daily omeprazole 20 mg Cap-DR 20 mg = 1 cap(s), Oral, Daily, # 90 cap(s), Refills(s) 1, [facility]: [facility], 178, cm, 07/03/23 7:24:00 EDT, Height/Length Dosing, 90, kg, 07/03/23 7:24:00 EDT, Weight Dosing Start Date: 07/03/23 Status: Ordered Start: 08-29-2014 End: 09-28-2022 take 1 capsule by mouth once daily omeprazole 20 mg Cap-DR 20 mg = 1 cap(s), Oral, Daily, X 90 day(s), # 90 cap(s), Refills(s) 1, [facility] Start Date: 04/01/22 Stop Date: 09/28/22 Status: Ordered Comment on above: Take 1 capsule by [facility] once daily. ProFe 180 mg oral capsule (8 sources) Start: 12-25-2023 take 1 capsule by mouth once daily ProFe 180 mg oral capsule 180 mg = 1 cap(s), Oral, Daily, # 100 cap(s), Refills(s) 0, Pharmacy: [facility]/pharmacy #[id number], 178, cm, 12/18/23 13:19:00 EST, Height/Length [...] Daily, # 10 cap(s), Refills(s) 0, Pharmacy: [facility]/pharmacy #[id number], 178, cm, 07/19/23 11:20:00 EDT, Height/Length [...] Coronary arteriosclerosis; 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: [Atherosclerotic heart disease of [place] coronary artery without angina pectoris] Onset: 4 [...] sources) Long-term current use of anticoagulant; 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: [director long 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 care (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) use of 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] Onset: 11-28-2017 11-28-2017 [...] Name Value Interpretation Reference Range Margie starr [facility] 06-28-20 [facility] Case Information Case Priority: None Programs: -- Referral Source: Tool Analyst Referral Reason: Disease management Case Type: Chronic Care Management Risk Score: -- Case Status: Active (December 28, 2023) Date Assigned: December 19, 2023 Assigned By: Christian Hernandez Date Enrolled: December 28, 2023 Assigned Primary Personnel: Christian Hernandez Assigned Secondary Personnel: -- Case Physician: Ursula Love MD Ongoing AAA (abdominal aortic aneurysm) Aortic aneurysm BMI 28.0-28.9,adult BPH (benign prostatic hyperplasia) CAD in [place] artery Controlled type 2 diabetes mellitus without [...] Assessments 12/28/23 08:18:00 Result Name Value Comment [facility] Program Enrollment Verbally agreed to receive [facility] services CCM Written Consent Written consent in progress CCM Verbal Consent By Self 12/28/23 07:00:00 Result Name Value Comment HIPPA Verified Type of Contact In person at home CM Preferred Spoken Language Hong Konger CM Preferred Written Language Hong [place]er Preferred Communication Mode Verbal Ability to Read/Write Able to read, Able to write Preferred Salutation MrNelly Preferred Method of Contact Cell Cell Phone [phone] Best Time to Visit or Contact 7-10 am Best Day to Visit or Contact No preference Appointment Reminders Patient portal, Other secured messaging Preferred Way to Send PHI Patient portal Preferred Mailing Address [address] [place] [address] Learning Style Pref Patient Verbal explanation Learning [...] Shares bed Support System Spouse/Significant other Primary Global Category Manager of Home Medication Self Current DME at Home No Currently Receiving Skilled Services No Skilled Service Need (more content not included)... Normal [facility] 06-11-20 24 [facility] Case Information Case Priority: None Programs: -- Referral Source: Tool Analyst Referral Reason: Disease management Case Type: Chronic Care Management Risk Score: -- Case Status: Active (December 28, 2023) Date Assigned: December 19, 2023 Assigned By: Christian Hernandez Date Enrolled: December 28, 2023 Assigned Primary Personnel: Christian Hernandez Assigned Secondary Personnel: -- Case Physician: Ursula Love MD Ongoing AAA (abdominal aortic aneurysm) Aortic aneurysm BMI 28.0-28.9,adult BPH (benign prostatic hyperplasia) CAD in [place] artery Controlled type 2 diabetes mellitus without [...] Assessments 12/28/23 08:18:00 Result Name Value Comment [facility] Program Enrollment Verbally agreed to receive [facility] services CCM Written Consent Written consent in progress CCM Verbal Consent By Self 12/28/23 07:00:00 Result Name Value Comment HIPPA Verified Type of Contact In person at home CM Preferred Spoken Language Hong [place]er CM Preferred Written Language [place]er Preferred Communication Mode Verbal Ability to Read/Write Able to read, Able to write Preferred Salutation MrNelly Preferred Method of Contact Cell Cell Phone [phone] Best Time to Visit or Contact 7-10 am Best Day to Visit or Contact No preference Appointment Reminders Patient portal, Other secured messaging Preferred Way to Send PHI Patient portal Preferred Mailing Address [address] [place] [address], [facility] Learning Style Pref Patient Verbal explanation Learning [...] Shares bed Support System Spouse/Significant other Primary Global Category Manager of Home Medication Self Current DME at Home No Currently Receiving Skilled Services No Skilled Service Needs Anticipated No Barriers to Care None Home Barriers None (more content not included)... Normal [facility] 36on 06-04-2024 36 Regarding carotid duplex performed on 05/29/2024: MERVAT Kendrick MA Let them know less than 49% stenosis of both carotids- really very good- Continue all meds and we will see them next time Probably a repeat carotid in 1-3 years- unless symptoms Patient made aware via email. [facility] 04-25-20 [facility] Case Information Case Priority: None Programs: -- Referral Source: Tool Analyst Referral Reason: Disease management Case Type: Chronic Care Management Risk Score: -- Case Status: Active (December 28, 2023) Date Assigned: December 19, 2023 Assigned By: Christian Hernandez Date Enrolled: December 28, 2023 Assigned Primary Personnel: Christian Hernandez Assigned Secondary Personnel: -- Case Physician: Km NIELSON, Ursula Leos Ongoing AAA (abdominal aortic aneurysm) Aortic aneurysm BMI 28.0-28.9,adult BPH (benign prostatic hyperplasia) CAD in [place] artery Controlled type 2 diabetes mellitus without [...] Assessments 12/28/23 08:18:00 Result Name Value Comment [facility] Program Enrollment Verbally agreed to receive [facility] services CCM Written Consent Written consent in progress CCM Verbal Consent By Self 12/28/23 07:00:00 Result Name Value Comment HIPPA Verified Type of Contact In person at home CM Preferred Spoken Language Hong [place]er CM Preferred Written Language Hong [place]er Preferred Communication Mode Verbal Ability to Read/Write Able to read, Able to write Preferred Salutation Mr. Preferred Method of Contact Cell Cell Phone [phone] Best Time to Visit or Contact 7-10 am Best Day to Visit or Contact No preference Appointment Reminders Patient portal, Other secured messaging Preferred Way to Send PHI Patient portal Preferred Mailing Address [address] [place] [address] Learning Style Pref Patient Verbal explanation Learning [...] Shares bed Support System Spouse/Significant other Primary Global Category Manager of Home Medication Self Current DME at Home No Currently Receiving Skilled Services No Skilled Service Needs Anticipated No Barriers to Care None Home Barriers None Employment Status Retired Financial Issues None Sources of Income Socia (more content not included)... Normal [facility] Ambulatory Visit Summaryon 0 03-26-2024 Ambulatory Visit [...] Oncology Monday 8:00 AM EST With: Where: [facility] Kofi Normal [facility] Family Medicine Office/Clini c Noteon [...] Daily, # 100 cap(s), Refills(s) 0, Pharmacy: [facility]/pharmacy #[id number], 178, cm, 12/18/23 13:19:00 EST, Height/Length Dosing, 89.1, kg, 12/18/23 13:19:00 EST, Weight Dosing lisinopril, See Instructions, TAKE 1 TABLET DAILY, # 90 tab(s), Refills(s) 1, Pharmacy: [facility]/pharmacy #[id number], 179, cm, 03/26/24 10:53:00 EDT, Height/Length Dosing, 86, kg, 03/26/24 10:53:00 EDT, Weight Dosing Follow-up No qualifying data available Problem List/Past Medical History Ongoing AAA (abdominal aortic aneurysm) Aortic aneurysm BMI 28.0-28.9,adult BPH (benign prostatic hyperplasia) CAD in [place] artery Controlled type 2 diabetes mellitus without [...] Others hurt by (more content not included)... [facility] Comment on above: Result Comment: Elec tronically Signed By: Km NIELSON, Ursula Porter\.br\Date and Time Signed: 03/26/24 16:51 EDT Physician Referralon 024 Physician Referral [id number] #[id number] [facility] Population Healthon 03-22-20 24 [facility] Case Information Case Priority: None Programs: -- Referral Source: Motor [employer] Gener[employer] Brush Cutter Referral Reason: Disease management Case Type: Chronic Care Management Risk Score: -- Case Status: Active (December 28, 2023) Date Assigned: December 19, 2023 Assigned By: Christian Hernandez Date Enrolled: December 28, 2023 Assigned Primary Personnel: Christian Hernandez Assigned Secondary Personnel: -- Case Physician: Ursula Love MD Problems Ongoing AAA (abdominal aortic aneurysm) Aortic aneurysm BMI 28.0-28.9,adult BPH (benign prostatic hyperplasia) CAD in [place] artery Controlled type 2 diabetes mellitus without [...] Assessments 12/28/23 08:18:00 Result Name Value Comment [facility] Program Enrollment Verbally agreed to receive [facility] services CCM Written Consent Written consent in progress CCM Verbal Consent By Self 12/28/23 07:00:00 Result Name Value Comment HIPPA Verified Type of Contact In person at home CM Preferred Spoken Language Hong Konger CM Preferred Written Language Hong [place]er Preferred Communication Mode Verbal Ability to Read/Write Able to read, Able to write Preferred Salutation Mr. Preferred Method of Contact Cell Cell Phone [phone] Best Time to Visit or Contact 7-10 am Best Day to Visit or Contact No preference Appointment Reminders Patient portal, Other secured messaging Preferred Way to Send PHI Patient portal Preferred Mailing Address [address] [place] [address], [phone] Learning Style Pref Patient Verbal explanation Learning [...] Shares bed Support System Spouse/Significant other Primary Global Category Manager of Home Medication Self Current DME at Home No Currently Receiving Skilled Services No Skilled Service Needs Anticipated No Barriers to Care None Home Barriers None Employment Status Retired Financial Issues None Sources of Income Social Security Pat (more content not included)... Normal [facility] Consent for Treatmenton 02-15 Consent for Treatment [id number] #[id number] Normal [facility] Oncology Progress Noteon Oncology Progress Note Chief [...] a colonoscopy done in Sep 2023 at [facility] after positive Cologuard test. This showed [...] Contact Information Tj NATHAN-PEMA, Ana Rivas, ONC [facility] [address] [place] [address]- [phone] Additional Instructions: cbc, cmp, iron studies in 3mo and 6mo follow-up in 6mo with [employer] Medications amLODIPine 5 mg Tab, Oral, Daily [...] (DoT), 100 (more content not included)... Normal [facility] CBC w/ Auto Diffon 4 Acanthocytes LM Ql (Bld) PRESENT Invalid Interpretation Code [facility] Comment on above: Performed By: #### 2 [id number] #### [facility] [address] [place] [address] Anisocytosis Ql (Bld) PRESENT Invalid Interpretation Code [facility] Comment on above: Performed By: #### 2 [id number] #### [facility] [address] [place] [address] Basophils/100 WBC (Bld) 0.8 % Normal 0.0-2.0 [facility] Comment on above: Performed By: #### 2 [id number] #### [facility] [address] [place] [address] Basophils/Leukocytes Auto (Bld) [Pure # fraction] 0.0 E9/L Normal 0.0-0.2 [facility] Comment on above: Performed By: #### 2 [id number] #### [facility] [address] [place] [address] Eosinophils (Bld) [#/Vol] 0.2 E9/L Normal 0.0-0.5 [facility] Comment on above: Performed By: #### 2 [id number] #### [facility] [address] [place] [address] Eosinophils/100 WBC (Bld) 3.7 % Normal 0.0-8.0 [facility] Comment on above: Performed By: #### 2 [id number] #### [facility] [address] [place] [address] Erythrocyte distribution width (RBC) [Ratio] 27.1 % High 10.9-14.2 [facility] Comment on above: Performed By: #### 2 [id number] #### [facility] [address] [place] [address] Hematocrit (Bld) [Volume fraction] 40.0 % Normal 37.7-49.0 [facility] Comment on above: Performed By: #### 2 [id number] #### [facility] [address] [place] [address] Hemoglobin (Bld) [Mass/Vol] 13.4 g/dL Low 13.5-17.5 [facility] Comment on above: Performed By: #### 2 [id number] #### [facility] [address] [place] [address] Hypochromia Auto Ql (Bld) PRESENT Invalid Interpretation Code [facility] Comment on above: Performed By: #### 2 [id number] #### [facility] [address] [place] [address] Lymphocytes (Bld) [#/Vol] 1.6 E9/L Normal 1.0-4.0 [facility] Comment on above: Performed By: #### 2 [id number] #### [facility] [address] [place] [address] Lymphocytes/100 WBC (Bld) 32.5 % Normal 14.0-50.0 [facility] Comment on above: Performed By: #### 2 [id number] #### [facility] [address] [place] [address] MCH (RBC) [Entitic mass] 27.3 pg Normal 27.0-34.0 [facility] Comment on above: Performed By: #### 2 [id number] #### [facility] [address] [place] [address] MCHC (RBC) [Mass/Vol] 33.6 g/dL Normal 31.4-36.0 [facility] Comment on above: Performed By: #### 2 [id number] #### [facility] [address] [place] [address] MCV (RBC) [Entitic vol] 81.4 fL Normal 80.0-100.0 [facility] Comment on above: Performed By: #### 2 [id number] #### [facility] [address] [place] [address] Monocytes (Bld) [#/Vol] 0.4 E9/L Normal 0.2-1.0 [facility] Comment on above: Performed By: #### 2 [id number] #### [facility] [address] [place] [address] Neutrophils (Bld) [#/Vol] 2.7 E9/L Normal 2.0-7.5 [facility] Comment on above: Performed By: #### 2 [id number] #### [facility] [address] [place] [address] Neutrophils/100 WBC (Bld) 55.1 % Normal 36.0-75.0 [facility] Comment on above: Performed By: #### 2 [id number] #### [facility] [address] [place] [address] Ovalocytes LM Ql (Bld) PRESENT Invalid Interpretation Code [facility] Comment on above: Performed By: #### 2 [id number] #### [facility] [address] [place] [address] Platelet mean volume (Bld) [Entitic vol] 9.9 fL Normal 6.4-10.8 [facility] Comment on above: Performed By: #### 2 [id number] #### [facility] [address] [place] [address] Platelets (Bld) [#/Vol] 116.0 E9/L Low 150.0-500.0 [facility] Comment on above: Performed By: #### 2 [id number] #### [facility] [address] [place] [address] RBC (Bld) [#/Vol] 4.9 E12/L Normal 4.3-5.9 [facility] Comment on above: Performed By: #### 2 [id number] #### [facility] [address] [place] [address] RBC size Nom (Bld) SEE MORPHOLOGY Invalid Interpretation Code [facility] Comment on above: Performed By: #### 2 [id number] #### [facility] [address] [place] [address] WBC corrected for nucl RBC Auto (Bld) [#/Vol] 5.0 E9/L Normal 4.0-11.0 [facility] Comment on above: Performed By: #### 2 [id number] #### [facility] [address] [place] [address] CHEMISTRYOrdered By: SYSTEM SYSTEM on 03-12-2024 Albumin [...] 03-12-2024 Albumin [Mass/Vol] 4.3 g/dL Normal 3.3-5.0 [facility] Comment on above: Performed By: #### 2 [id number] #### [facility] [address] [place] [address] Albumin/Globulin (S) [Mass conc ratio] 2.3 High 1.1-2.2 [facility] Comment on above: Performed By: #### 2 [id number] #### [facility] [address] [place] [address] ALP [Catalytic activity/Vol] 54 Int._Unit/L Normal 21-98 [facility] Comment on above: Performed By: #### 2 [id number] #### [facility] [address] [place] [address] ALT No additional P-5'-P [Catalytic activity/Vol] 47 Int._Unit/L High 6-46 [facility] Comment on above: Performed By: #### 2 [id number] #### [facility] [address] [place] [address] Anion gap [Moles/Vol] 12 mmol/L Normal 6-16 [facility] Comment on above: Performed By: #### 2 [id number] #### [facility] [address] [place] [address] AST [Catalytic activity/Vol] 30 Int._Unit/L Normal 5-43 [facility] Comment on above: Performed By: #### 2 [id number] #### [facility] [address] [place] [address] Bilirubin [Mass/Vol] 1.8 mg/dL High 0.0-1.1 [facility] Comment on above: Performed By: #### 2 [id number] #### [facility] [address] [place] [address] Calcium [Mass/Vol] 9.1 mg/dL Normal 8.9-11.1 [facility] Comment on above: Performed By: #### 2 [id number] #### [facility] [address] [place] [address] Chloride [Moles/Vol] 102 mmol/L Normal 101-111 [facility] Comment on above: Performed By: #### 2 [id number] #### [facility] [address] [place] [address] CO2 [Moles/Vol] 26 mmol/L Normal 21-31 [facility] Comment on above: Performed By: #### 2 [id number] #### [facility] [address] [place] [address] Creatinine [Mass/Vol] 0.8 mg/dL Normal 0.5-1.3 [facility] Comment on above: Performed By: #### 2 [id number] #### [facility] [address] [place] [address] Globulin (S) [Mass/Vol] 1.9 g/dL Normal 1.4-4.0 [facility] Comment on above: Performed By: #### 2 [id number] #### [facility] [address] [place] [address] Glucose [Mass/Vol] 153 mg/dL Normal 55-199 [facility] Comment on above: Performed By: #### 2 [id number] #### [facility] [facility] [address] [place] [address] Potassium [Moles/Vol] 4.7 mmol/L Normal 3.5-5.3 [facility] Comment on above: Performed By: #### 2 153121 #### [facility] [address] [place] [address] Protein [Mass/Vol] 6.2 g/dL Normal 6.0-7.8 [facility] Comment on above: Performed By: #### 2 991579 #### [facility] [address] [place] [address] Sodium [Moles/Vol] 135 mmol/L Normal 135-145 [facility] Comment on above: Performed By: #### 2 985142 #### [facility] [address] [place] [address] Urea nitrogen [Mass/Vol] 9 mg/dL Normal 5-21 [facility] Comment on above: Performed By: #### 2 813623 #### [facility] [address] [place] [address] Urea nitrogen/Creatinine [Mass ratio] 11 No Units Normal 10-20 [facility] Comment on above: Performed By: #### 2 806404 #### [facility] [address] [place] [address] Consent for Treatmenton 02-14 Consent for Treatment [id number] #1.00TIFF Normal [facility] Ferritinon 03-12-2024 Ferritin [Mass/Vol] 179 ng/mL Normal 24-[address] [facility] Comment on above: Performed By: #### 2 416717 #### [facility] [address] [place] [address] HEMATOLOGYOrdered By: SYSTEM SYSTEM on 03-12-2024 Acanthocytes [...] 03-12-2024 Iron [Mass/Vol] 117 microgram/dL Normal 35-153 [facility] Comment on above: Performed By: #### 2 977610 #### [facility] [address] [place] [address] Iron Saturationon 03-12-2024 Iron binding capacity [Mass/Vol] 326 microgram/dL Normal 250-400 [facility] Comment on above: Performed By: #### 2 174170 #### [facility] [address] [place] [address] Iron saturation [Mass fraction] 36 % Normal 20-50 [facility] Comment on above: Performed By: #### 2 149416 #### [facility] [address] [place] [address] Transferrinon 03-12-2024 Transferrin [Mass/Vol] 233 mg/dL Normal 200-370 [facility] Comment on above: Performed By: #### 2 717426 #### [facility] [address] [place] [address] eGFRon 03-12-2024 eGFR 98 mL/min/1.73 m2 Normal >=59 [facility] Comment on above: Order Comment: Order added by Discern Expert. Performed By: #### 1 [id number] #### [facility] [address] [place] [address] Consent for Treatmenton Consent for Treatment [id number] #1.00TIFF Normal [facility] Consent for Treatmenton 01-15 Consent for Treatment [id number] #1.00TIFF Normal [facility] Consent for Treatmenton 01-14 Consent for Treatment [id number] #1.00TIFF Normal [facility] Consenton 01-31-2024 Consent [id number]#1.00TIFF Normal [facility] Outside Diabetes Eye Examon 01-31-2024 Outside Diabetes Eye Exam [id number] #1.00TIFF [facility] 01-26-20 [facility] Case Information Case Priority: None Programs: -- Referral Source: [employer] Referral Reason: Disease management Case Type: Chronic Care Management Risk Score: -- Case Status: Active (December 28, 2023) Date Assigned: December 19, 2023 Assigned By: Christian Hernandez Date Enrolled: December 28, 2023 Assigned Primary Personnel: Christian Hernandez Assigned Secondary Personnel: -- Case Physician: Km NIELSON, Ursula Leos Ongoing AAA (abdominal aortic aneurysm) Aortic aneurysm BMI 28.0-28.9,adult BPH (benign prostatic hyperplasia) CAD in [place] artery Controlled type 2 diabetes mellitus without [...] Assessments 12/28/23 08:18:00 Result Name Value Comment [facility] Program Enrollment Verbally agreed to receive [facility] services CCM Written Consent Written consent in progress CCM Verbal Consent By Self 12/28/23 07:00:00 Result Name Value Comment HIPPA Verified Type of Contact In person at home CM Preferred Spoken Language Hong Konger CM Preferred Written Language [place]er Preferred Communication Mode Verbal Ability to Read/Write Able to read, Able to write Preferred Salutation Mr. Preferred Method of Contact Cell Cell Phone [phone] Best Time to Visit or Contact 7-10 am Best Day to Visit or Contact No preference Appointment Reminders Patient portal, Other secured messaging Preferred Way to Send PHI Patient portal Preferred Mailing Address [address] [place] [address], [address] Learning Style Pref Patient Verbal explanation Learning [...] Shares bed Support System Spouse/Significant other Primary Global Category Manager of Home Medication Self Current DME at Home No Currently Receiving Skilled Services No Skilled Service Needs Anticipated No Barriers to Care None Home Barriers None Employment Status Retired Financial Issues None Sources of Income Social Security Pat (more content not included)... Normal [facility] Consent for Treatmenton 01-14 Consent for Treatment [id number] #1.00TIFF [facility] Oncology Progress Noteon Oncology Progress Note Diagnoses [...] his nasa (more content not included)... Normal [facility] Free K+L Lt Chains,Qn,Son Immunoglobulin light chains.kappa.free (S) [Mass/Vol] 19.0 mg/L Invalid Interpretation Code 3.3-19.4 [facility] Comment on above: Performed By: #### 2 83497579, 4370187, 3550239, 8547406, 1157324, 4393363, 1861454, 8543769, 05018803 ####[facility] [address] [place] [address] Immunoglobulin light chains.kappa.free/Imm unoglobulin light chains.lambda.free (S) [Mass ratio] 1.62 Invalid Interpretation Code 0.26-1.65 [facility] Comment on above: Result Comment: Perf ormed at: [facility] [address], [place] [id number] PhD Nicole Fang Performed By: #### 2 81801169, 3431637, 4016292, 7270172, 5222973, 7845055, 0115910, 3212779, 15475317 ####[facility] [address] [place] [address] Immunoglobulin light chains.lambda.free [Mass/Vol] 11.7 mg/L Invalid Interpretation Code 5.7-26.3 [facility] Comment on above: Performed By: #### 2 19081871, 7245130, 9366071, 3829592, 5687730, 6097906, 9694960, 5261529, 01445037 ####[address] [place] [address] Immunofixation Serumon 01-16 IgA [Mass/Vol] 87 mg/dL Invalid Interpretation Code 61-437 [facility] Comment on above: Performed By: #### 2 60460555, 0448607, 2442507, 8972705, 0656191, 6837859, 8224158, 6160216, 75938260 ####[address] [place] [address] IgG [Mass/Vol] 406 mg/dL Low 603-1613 [facility] Comment on above: Performed By: #### 2 63712030, 3150129, 8388220, 5147790, 7331799, 3674468, 0264661, 7335719, 85391657 ####[facility] [address] [place] [address] IgM [Mass/Vol] 136 mg/dL Invalid Interpretation Code 20-172 [facility] Comment on above: Result Comment: Perf ormed at: [facility] [address] [place] [address] [id number] PhD Nicole Fang Performed By: #### 2 64422413, 7420714, 9291191, 4915327, 0026210, 7355956, 2404389, 6114324, 30123731 ####[facility] [address] [place] [address] Protein Fractions [Interp] Comment Invalid Interpretation Code [facility] Comment on above: Result Comment: No m onoclonality detected. Performed By: #### 2 79985879, 9211050, 0589068, 0483964, 6722843, 7670337, 5134536, 9178930, 06341974 ####[address] [place] [address] SPEon 01-17-2024 Albumin [Mass/Vol] 3.6 g/dL Invalid Interpretation Code 2.9-4.4 [facility] Comment on above: Performed By: #### 2 74736579, 8130209, 2794686, 1766480, 9730241, 1535904, 7611409, 8746045, 05781315 ####[address] [address] Albumin/Globulin [Mass ratio] 1.8 {ratio} High 0.7-1.7 [facility] Comment on above: Performed By: #### 2 46811473, 5548237, 5170179, 9757212, 7618554, 3397498, 2961585, 1040247, 37821937 ####[address] [address] Alpha 1 globulin Elph [Mass/Vol] 0.2 g/dL Invalid Interpretation Code 0.0-0.4 [facility] Comment on above: Performed By: #### 2 25355540, 2713714, 7055874, 9486037, 4812788, 1147767, 1962402, 3071353, 06774952 ####[address] [place] [address] Alpha 2 globulin Elph [Mass/Vol] 0.6 g/dL Invalid Interpretation Code 0.4-1.0 [facility] Comment on above: Performed By: #### 2 04684506, 6968942, 0597006, 2148864, 2029527, 2488653, 2875607, 6554665, 20684144 ####[facility] [address] [place] [address] Beta globulin Elph [Mass/Vol] 0.8 g/dL Invalid Interpretation Code 0.7-1.3 [facility] Comment on above: Performed By: #### 2 68984750, 3573499, 1093733, 7351573, 6710233, 6962848, 0391769, 2152539, 73944452 ####[facility] [address] [place] [address] Gamma globulin Elph [Mass/Vol] 0.4 g/dL Invalid Interpretation Code 0.4-1.8 [facility] Comment on above: Performed By: #### 2 00587472, 6651875, 1091197, 7610671, 5538963, 7685673, 6534312, 8743045, 99734636 ####[address] [place] [address] Globulin (S) [Mass/Vol] 2.0 g/dL Low 2.2-3.9 [facility] Comment on above: Performed By: #### 2 75812197, 5555887, 7521360, 7238436, 6060201, 2410169, 3475634, 8107133, 79861575 ####[facility] [address] [place] [address] Laboratory comment Harman (Report) Comment Invalid Interpretation Code [facility] Comment on above: Result Comment: Prot ein electrophoresis scan will follow via computer, mail, or testboard operator delivery. Performed By: #### 2 81153337, 4098330, 6668513, 0037144, 3794634, 6074157, 3296294, 7997506, 15834164 ####[facility] [address] [place] [address] Protein [Mass/Vol] 5.6 g/dL Low 6.0-8.5 [facility] Comment on above: Performed By: #### 2 96083476, 1229170, 9939393, 0983656, 9931103, 4180024, 8908154, 6360809, 26738936 ####[facility] [address] [place] [address] Protein Fractions [Interp] Comment: Invalid Interpretation Code [facility] Comment on above: Result Comment: SPE shows decreased total protein. Performed at: [address] [id number] PhD Nicole Fang Performed By: #### 2 36284113, 8665168, 1078431, 1555045, 2246498, 9137376, 4522039, 9287125, 91640358 ####[facility] [address] [place] [address] Protein.monoclonal Elph [Mass/Vol] Not Observed Invalid Interpretation Code Not Observed [facility] Comment on above: Performed By: #### 2 83641450, 9838332, 2528754, 9219112, 7142514, 9166842, 4862903, 9742773, 46759234 ####[facility] [address] [place] [address] CHEMISTRYOrdered By: SYSTEM SYSTEM on 01-16-2024 Cobalamin [...] for Treatmenton Consent for Treatment [id number] #1.00TIFF Normal [facility] Ferritinon 01-16-2024 Ferritin [Mass/Vol] 8 ng/mL Low 24-336 [facility] Comment on above: Performed By: #### 2 69629496, 0972678, 8058464, 3885067, 2348608, 4072651, 4291482, 7799763, 17037702 ####[facility] [address] [place] [address] Folateon 01-16-2024 Folate [Mass/Vol] 13.0 ng/mL Normal >=6.7 [facility] Comment on above: Performed By: #### 2 16665435, 1061385, 0788111, 8770705, 3812661, 4116694, 6964171, 9731035, 06327436 ####[facility] [address] [place] [address] Ironon 01-16-2024 Iron [Mass/Vol] 36 microgram/dL Normal 35-153 [facility] Comment on above: Performed By: #### 2 42671453, 6524729, 1249095, 0870301, 0940791, 3892188, 0124271, 6773066, 65719500 #### [facility] [address] [place] [address] Iron Saturationon 01-16-2024 Iron binding capacity [Mass/Vol] 473 microgram/dL High 250-400 [facility] Comment on above: Performed By: #### 2 60053095, 9141619, 3805151, 1095597, 7818540, 7651058, 9810321, 8305948, 74224236 #### [facility] [address] [place] [address] Iron saturation [Mass fraction] 8 % Low 20-50 [facility] Comment on above: Performed By: #### 2 79341420, 3047015, 0935518, 2637374, 6018808, 5810831, 7923359, 6630793, 17242671 #### [facility] [address] [place] [address] Transferrinon 01-16-2024 Transferrin [Mass/Vol] 338 mg/dL Normal 200-370 [facility] Comment on above: Performed By: #### 2 19836277, 5065461, 3708966, 9951884, 9494152, 2275314, 5014029, 7167376, 19648008 #### [facility] [address] [place] [address] Vit B12on 01-16-2024 Cobalamin (Vitamin B12) [Mass/Vol] 213 pg/mL Normal 50-1500 [facility] Comment on above: Performed By: #### 2 37459651, 9717501, 2712633, 9880933, 5884337, 7463395, 1453311, 2497639, 68476626 ####[facility] [address] [place] [address] 36on 01-10-2024 36 Message sent from patient to my email: Kg Mesa hope all is well, I forgot to ask if I???m 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 Some things I???ve read are telling me not to?? Marilyn, are you able to advise on this? Thanks. Normal [facility] Physician Referralon 024 Physician Referral [id number] #1.00TIFF Normal [facility] Office Visiton 12-29-2023 Follow-up visit [id number] Marcelle Deutsch 1960 M Date Provider Department Center 12/29/2023 PARISA MUNGUIA [facility] Family History Problem Relation Age of Onset Coronary artery disease Father Atrial fibrillation Father Heart attack Brother Family Status - Relation Status Age at Father Brother Level of Service:[address] [place] OFFICE/OUTPATIENT ESTABLISHED MOD MDM 30 MIN Normal [facility] ED Pat Eduon 12-28-2023 ED Pat Edu Cardiovascular Coronary Artery Disease, Male Coronary artery disease (CAD) is a condition in which the arteries that lead to the heart (coronary arteries) become narrow or blocked. The narrowing or blockage can lead to decreased blood flow to the heart. Prolonged reduced blood flow can cause a heart attack (myocardial infarction, or FL). This condition may also be called coronary [...] these instructions at home: Medicines ? Take nrsx-eao-cixjlrv and prescription medicines only as told by [...] use any (more content not included)... Normal [facility] 12-28-19 [facility] Case Information Case Priority: None Programs: -- Referral Source: [employer]ush Cutter Referral Reason: Disease management Case Type: Chronic Care Management Risk Score: -- Case Status: Active (December 28, 2023) Date Assigned: December 19, 2023 Assigned By: Christian Hernandez Date Enrolled: December 28, 2023 Assigned Primary Personnel: Christian Hernandez Assigned Secondary Personnel: -- Case Physician: -- Problems Ongoing AAA (abdominal aortic aneurysm) Aortic aneurysm BMI 28.0-28.9,adult BPH (benign prostatic hyperplasia) CAD in [place] artery Controlled type 2 diabetes mellitus without [...] CCM Program Enrollment Verbally agreed to receive [facility] services CCM Written Consent Written consent in progress CCM Verbal Consent By Self 12/28/23 07:00:00 Result Name Value Comment HIPPA Verified Type of Contact In person at home CM Preferred Spoken Language Hong Konger CM Preferred Written Language [place]er Preferred Communication Mode Verbal Ability to Read/Write Able to read, Able to write Preferred Salutation Preferred Method of Contact Cell Cell Phone [phone] Best Time to Visit or Contact 7-10 am Best Day to Visit or Contact No preference Appointment Reminders Patient portal, Other secured messaging Preferred Way to Send PHI Patient portal Preferred Mailing Address [address] [place] [address] Learning Style Pref Patient Verbal explanation Learning [...] Shares bed Support System Spouse/Significant other Primary Global Category Manager of Home Medication Self Current DME at Home No Currently Receiving Skilled Services No Skilled Service Needs Anticipated No Barriers to Care None Home Barriers None Employment Status Retired Financial Issues None Sources of Income Social Security Patient Account Ser (more content not included)... Normal [facility] Population Health Problems Ongoing AAA (abdominal aortic aneurysm) Aortic aneurysm BMI 28.0-28.9,adult BPH (benign prostatic hyperplasia) CAD in [place] artery Controlled type 2 diabetes mellitus without [...] - Comments: - - 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 Frequency Status Registered Diet Technician Review educational material - - Not done [...] - Comments: - - 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 Frequency Status Registered Diet Technician Review educational material - - Not done [...] - Comments: - - 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 Frequency Status Registered Diet Technician Review educational material - - Not done [...] - Comments: - - 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 Frequency Status Registered Diet Technician Review educational material - - Not done [...] - Not done - - [facility] CT Chest, Low Dose Screening on [...] Zach Bourne MD Transcribed by: LUDWIN Technologist: SB [facility] Consent for Treatmenton 12-14 Consent for Treatment [id number] #1.00TIFF [facility] Family Medicine Office/Clini c Noteon 12-22-2023 [...] of clutter to prevent tripping and/or falling. [place] Advance Directives reviewed, patient has at home, [...] PCP visit. Will have labs completed with [facility]. Colonoscopy up to date, due for repeat [...] with CDC recommendation that everyone born from 9354[birth year]2643 get tested for Hepatitis C. This is [...] Pack Yea (more content not included)... Normal [facility] Comment on above: Result Comment: Elec tronically Signed By: Ursula Love MD\.br\Date and Time Signed: 12/22/23 11:50 EST\.br\Electronically Co-Signed By: Christian Hernandez\.br\Date and Time Co-Signed: 12/18/23 15:00 EST .Interpretation:on HCV Ab IA Ql Comment Invalid Interpretation Code [facility] Comment on above: Result Comment: Not infected with HCV unless early or acute infection is suspected (which may be delayed in an immunocompromised individual), or other evidence exists to indicate HCV infection. Performed at: [facility] [address], [place] [id number] PhD Nicole Fang Performed By: #### 2 026444, 1094842466, 1570065, 0108310, 0436381842, 905446354, 67611442 ####[facility] [address] [place] [address] HCV Antibody RFX to Quant PC Kavin 12-20-2023 HCV IgG IA Ql Non-Reactive Invalid Interpretation Code Non Reactive [facility] Comment on above: Result Comment: Perf ormed at: [facility] [address], [place] [id number] PhD Nicole Fang Performed By: #### 2 571053, 7055972703, 4444732, 6296983, 0469786071, 439416968, 61088464 ####[facility] [address] [place] [address] Screenson 12-19-2023 Screens [id number] #1.00TIFF Normal [facility] Ambulatory Visit Summaryon 0 12-18-2023 Ambulatory Visit [...] 28.0-28.9,adult BPH (benign prostatic hyperplasia) CAD in [place] artery Controlled type 2 diabetes mellitus without [...] for choosing us for your care. Normal [facility] CBC w/ Auto Diffon 4 Anisocytosis Ql (Bld) PRESENT Invalid Interpretation Code [facility] Comment on above: Performed By: #### 2 660529, 8554193803, 9639277, 9265647, 8967276859, 357919566, 27158830 ####[facility] [address] [place] [address] Basophils/100 WBC (Bld) 0.6 % Normal 0.0-2.0 [facility] Comment on above: Performed By: #### 2 179495, 5895873064, 2620837, 2318378, 0560043721, 064927797, 32873219 ####[facility] [address] [place] [address] Basophils/Leukocytes Auto (Bld) [Pure # fraction] 0.0 E9/L Normal 0.0-0.2 [facility] Comment on above: Performed By: #### 2 758782, 3351553937, 9152764, 9278086, 7503561089, 210129535, 76116398 ####[facility] [address] [place] [address] Eosinophils (Bld) [#/Vol] 0.1 E9/L Normal 0.0-0.5 [facility] Comment on above: Performed By: #### 2 530909, 1149910350, 7046782, 5156318, 1685142614, 338358665, 24732257 ####[address] [address] Eosinophils/100 WBC (Bld) 2.7 % Normal 0.0-8.0 [facility] Comment on above: Performed By: #### 2 952821, 6646741577, 4213089, 7464502, 6499618126, 896986042, 34844303 ####[address] [address] Erythrocyte distribution width (RBC) [Ratio] 17.2 % High 10.9-14.2 [facility] Comment on above: Performed By: #### 2 570201, 5449505930, 7745671, 8544088, 4384479167, 271930000, 85229119 ####[address] [address] Hematocrit (Bld) [Volume fraction] 34.4 % Low 37.7-49.0 [facility] Comment on above: Performed By: #### 2 407120, 7172157938, 8548500, 2654171, 8378924168, 302618221, 43842516 ####[facility] [address] [place] [address] Hemoglobin (Bld) [Mass/Vol] 10.9 g/dL Low 13.5-17.5 [facility] Comment on above: Performed By: #### 2 245444, 6559553648, 0385570, 1915188, 2233773179, 863121473, 01067298 ####[facility] [address] [place] [address] Hypochromia Auto Ql (Bld) PRESENT Invalid Interpretation Code [facility] Comment on above: Performed By: #### 2 473593, 4880268283, 3973203, 0883681, 7647279826, 058473536, 81461915 ####[facility] [address] [place] [address] Lymphocytes (Bld) [#/Vol] 1.3 E9/L Normal 1.0-4.0 [facility] Comment on above: Performed By: #### 2 017868, 1897211764, 4492780, 2768959, 7135168215, 881431727, 90473590 ####[address] [address] Lymphocytes/100 WBC (Bld) 25.8 % Normal 14.0-50.0 [facility] Comment on above: Performed By: #### 2 165087, 3151242712, 6765356, 2133443, 2279514050, 636709903, 35269160 ####[address] [address] MCH (RBC) [Entitic mass] 23.3 pg Low 27.0-34.0 [facility] Comment on above: Performed By: #### 2 476344, 4052190374, 1322075, 9479489, 8863049740, 807727216, 24051003 ####[address] [address] MCHC (RBC) [Mass/Vol] 31.6 g/dL Normal 31.4-36.0 [facility] Comment on above: Performed By: #### 2 182063, 9829945006, 5125263, 4757111, 7946393913, 428614494, 25162317 ####[address] [address] MCV (RBC) [Entitic vol] 73.6 fL Low 80.0-100.0 [facility] Comment on above: Performed By: #### 2 142993, 8790536747, 7834761, 8278017, 4966259270, 037537713, 32438904 ####[address] [address] Microcytes Ql (Bld) PRESENT Invalid Interpretation Code [facility] Comment on above: Performed By: #### 2 055332, 3393085105, 0612612, 9681748, 1426305618, 636592476, 37499730 ####[address] [address] Monocytes (Bld) [#/Vol] 0.4 E9/L Normal 0.2-1.0 [facility] Comment on above: Performed By: #### 2 809603, 6910098994, 2194417, 6960198, 5297049157, 365410188, 27217665 ####[address] [address] Neutrophils (Bld) [#/Vol] 3.2 E9/L Normal 2.0-7.5 [facility] Comment on above: Performed By: #### 2 382168, [id number], 9404243, 4491923, 7238074407, 734845981, 81083614 ####[address] [address] Neutrophils/100 WBC (Bld) 63.4 % Normal 36.0-75.0 [facility] Comment on above: Performed By: #### 2 339262, [id number], 8970582, 7914849, 3511236013, 652220609, 91355163 ####[address] [address] Ovalocytes LM Ql (Bld) PRESENT Invalid Interpretation Code [facility] Comment on above: Performed By: #### 2 051807, [id number], 1371672, 6842321, 4274407031, 649621716, 93426015 ####[place] [id number] Platelet mean volume (Bld) [Entitic vol] 10.4 fL Normal 6.4-10.8 [facility] Comment on above: Performed By: #### 2 898252, 3634113039, 6291482, 1698297, 9164821762, 644301116, 46086723 ####[address] [address] Platelets (Bld) [#/Vol] 137.0 E9/L Low 150.0-500.0 [facility] Comment on above: Performed By: #### 2 966539, 7736550151, 0328543, 6430265, 0946827594, 679751840, 60725640 ####[place] 5241657 Poikilocytosis Auto Ql (Bld) PRESENT Invalid Interpretation Code [facility] Comment on above: Performed By: #### 2 330764, 1938074445, 0444519, 9553216, 8703471600, 272794489, 90949103 ####[address] [address] RBC (Bld) [#/Vol] 4.7 E12/L Normal 4.3-5.9 [facility] Comment on above: Performed By: #### 2 217035, 9777658238, 4683824, 9300820, 4179632511, 333198322, 98636693 ####[place] [address]1657 WBC corrected for nucl RBC Auto (Bld) [#/Vol] 5.0 E9/L Normal 4.0-11.0 [facility] Comment on above: Performed By: #### 2 560649, 5151557145, 0005942, 8422652, 0589959732, 778917453, 68038036 ####[facility] [address] [place] [id number] CHEMISTRYOrdered By: SYSTEM SYSTEM on 12-18-2023 Albumin [...] (Bld) [Mass fraction] 6.9 % High <=5.9% [facility] ChemAutoSS CMPon 12-18-2023 Albumin [Mass/Vol] 4.4 g/dL Normal 3.3-5.0 [facility] Comment on above: Performed By: #### 2 005032, 5938421276, 8701281, 9392972, 0528194523, 109177349, 64013289 ####[facility] [address] [place] [address] Albumin/Globulin (S) [Mass conc ratio] 2.6 High 1.1-2.2 [facility] Comment on above: Performed By: #### 2 539135, 6400401570, 5475649, 2035103, 2751096082, 181538334, 81383064 ####[facility] [address] [place] [address] ALP [Catalytic activity/Vol] 49 Int._Unit/L Normal 21-98 [facility] Comment on above: Performed By: #### 2 621743, 2036275735, 9521798, 1689880, 6305098989, 191565515, 96796640 ####[facility] [address] [place] [address] ALT No additional P-5'-P [Catalytic activity/Vol] 20 Int._Unit/L Normal 6-46 [facility] Comment on above: Performed By: #### 2 030794, 7311839915, 1446699, 5098986, 3103381533, 916970826, 31657352 ####[facility] [address] [place] [address] Anion gap [Moles/Vol] 13 mmol/L Normal 6-16 [facility] Comment on above: Performed By: #### 2 580466, 5157125377, 9179307, 9044406, 2401024252, 312292718, 42398591 ####[place] [address] [place] [address] AST [Catalytic activity/Vol] 17 Int._Unit/L Normal 5-43 [facility] Comment on above: Performed By: #### 2 904338, 7473512248, 9675541, 1974854, 1910601196, 445473572, 77343597 ####[facility] [address] [place] [address] Bilirubin [Mass/Vol] 1.7 mg/dL High 0.0-1.1 [facility] Comment on above: Performed By: #### 2 562349, 2391592685, 8246705, 9978227, 2399879632, 427137179, 65011419 ####[place] [address] [place] [address] Calcium [Mass/Vol] 9.3 mg/dL Normal 8.9-11.1 [facility] Comment on above: Performed By: #### 2 261133, 1839624788, 1184806, 8986535, 1013431558, 794879575, 92848859 ####[facility] [address] [place] [address] Chloride [Moles/Vol] 103 mmol/L Normal 101-111 [facility] Comment on above: Performed By: #### 2 260364, 2633086213, 6470295, 9596405, 1546531053, 034979668, 07420647 ####[facility] [address] [place] [address] CO2 [Moles/Vol] 26 mmol/L Normal 21-31 [facility] Comment on above: Performed By: #### 2 364256, 1325718317, 9213801, 7697335, 5866804674, 020000703, 09958211 ####[facility] [address] [place] [address] Creatinine [Mass/Vol] 0.8 mg/dL Normal 0.5-1.3 [facility] Comment on above: Performed By: #### 2 960159, 7845480398, 5467962, 1114274, 5596988820, 866137512, 16152963 ####[place] [address] [place] [address] Globulin (S) [Mass/Vol] 1.7 g/dL Normal 1.4-4.0 [facility] Comment on above: Performed By: #### 2 752135, 3899191461, 6476654, 3965143, 4264620141, 923005744, 33552745 ####[facility] [address] [place] [address] Glucose [Mass/Vol] 124 mg/dL Normal 55-199 [facility] Comment on above: Performed By: #### 2 993671, 9161274359, 0465297, 9303339, 5265004816, 111765116, 55370968 ####[facility] [address] [place] [address] Potassium [Moles/Vol] 4.0 mmol/L Normal 3.5-5.3 [facility] Comment on above: Performed By: #### 2 902718, 9970143922, 3558977, 8781004, 9544583024, 022581135, 97934505 ####[place] [address] [place] [address] Protein [Mass/Vol] 6.1 g/dL Normal 6.0-7.8 [facility] Comment on above: Performed By: #### 2 207395, 4243978420, 4536972, 0539333, 2530307747, 037321651, 46358663 ####[facility] [address] [place] [address] Sodium [Moles/Vol] 138 mmol/L Normal 135-145 [facility] Comment on above: Performed By: #### 2 019532, 5871630318, 1465626, 9734263, 1882306359, 137072378, 54832149 ####[facility] [address] [place] [address] Urea nitrogen [Mass/Vol] 8 mg/dL Normal 5-21 [facility] Comment on above: Performed By: #### 2 366762, 2167427857, 0106224, 5806331, 8746099297, 464637565, 84534306 ####[facility] [address] [place] [address] Urea nitrogen/Creatinine [Mass ratio] 10 No Units Normal 10-20 [facility] Comment on above: Performed By: #### 2 204381, 9965869909, 4709900, 7004297, 2984998666, 090400103, 48951769 ####[facility] [address] [place] [address] HEMATOLOGYOrdered By: SYSTEM SYSTEM on 12-18-2023 Anisocytosis [...] Normal 4.0 - 11.0 E9/L Remisol Heme AcxZ6hec 12-18-2023 HbA1c (Bld) [Mass fraction] 6.9 % High <=5.9 [facility] Comment on above: Performed By: #### 2 638848, 4474944093, 0471161, 8164042, 0292419957, 792611692, 63460353 ####[facility] [address] [place] [address] Lipid Panelon 12-18-2023 Cholesterol [Mass/Vol] 118 mg/dL Low 120-200 [facility] Comment on above: Performed By: #### 2 772470, 3028919372, 2999827, 0340757, 1406444036, 827960597, 17246156 ####[facility] [address] [place] [address] Cholesterol in HDL [Mass/Vol] 37 mg/dL Invalid Interpretation Code [facility] Comment on above: Result Comment: '>= 60 LOW RISK' '<= 40 HIGH RISK' Performed By: #### 2 867456, 3970629099, 9123870, 6714467, 2237093123, 932328091, 04433038 ####[facility] [address] [place] [address] Cholesterol in LDL [Mass/Vol] 72 mg/dL Normal <=129 [facility] Comment on above: Performed By: #### 2 819304, 9538026934, 7671576, 4682123, 8661940375, 928233958, 30003486 ####[facility] [address] [place] [address] Cholesterol in VLDL [Mass/Vol] 22 mg/dL Normal 7-40 [facility] Comment on above: Performed By: #### 2 618959, 8924495014, 1188866, 4726224, 5660057682, 662409091, 18003638 ####[facility] [address] [place] [address] Triglyceride [Mass/Vol] 112 mg/dL Normal <=149 [facility] Comment on above: Performed By: #### 2 556809, 6257720315, 9511000, 5300343, 2423092863, 590546214, 23264771 ####[facility] [address] [place] [address] Patient Educationon 12-18-19 Patient Education Cardiovascular Atrial [...] signals of the heart. ? An ambulatory radiographer cardiac catheterization to record your heart's activity for a [...] Trouble breathing. (more content not included)... Normal [facility] eGFRon 12-18-2023 eGFR 98 mL/min/1.73 m2 Normal >=59 [facility] Comment on above: Order Comment: Order added by Discern Expert. Performed By: #### 2 614504, 8701058414, 9423975, 0588450, 3690843172, 838461897, 09372699 ####[facility] [address] [place] [address] 36on 11-20-2023 36 Patient emailed me and asked if we had samples of Xarelto. Since he's on Medicare now it's very expensive for him. We haven't had a rep bring samples of Xarelto in about 1 year. I mentioned switching to Eliquis, since we do get samples of that. Ok to send RX for Eliquis 5mg bid? Please advise. Thanks! Normal [facility] Ambulatory Visit Summaryon 1 12-05-2022 Ambulatory [...] Appointments Monday 8:00 AM EDT With: Where: [place] [id number]- \.br\ Medications\.br \ What How Much When [...] BPH (benign prostatic hyperplasia)\.b r\ CAD in [place] artery\.br\ Controlled type 2 diabetes mellitus without [...] choosing us for your care.\.br\ \.br\ [facility] General Surgery Office/Clini c Noteon 10-04-2023 [...] 28.0-28.9,adult BPH (benign prostatic hyperplasia) CAD in [place] artery Controlled type 2 diabetes mellitus without [...] virus vaccine, inactivated 07/30/2018 Recorded Normal [facility] Comment on above: Result Comment: Elec [...] due to history of tubular adenoma. Normal [facility] Pathology Noteon 09-27-2023 Pathology Note [id number] 4#1.00TIFF Normal [facility] Outside Colonoscopyon 2022 Outside Colonoscopy [id number] #1.00TIFF Normal [facility] Lab Reportson 09-21-2023 Lab Reports [id number] #1.00TIFF [facility] Physician Referralon 023 Physician Referral [id number] #1.00TIFF [facility] Physician Referralon 023 Physician Referral [id number]# 1.00TIFF [facility] Consent for Procedure/Surger yon 08-30-2023 Consent for Procedure/Surgery [id number] 8#1.00TIFF [facility] Ambulatory Visit Summaryon 10-29-2022 Ambulatory Visit [...] Monday 8:00 AM EDT With: Where: [facility] Normal [address] [place] [address]- \.br\ Medications\.br \ What How Much When [...] BPH (benign prostatic hyperplasia)\.b r\ CAD in [place] artery\.br\ Controlled type 2 diabetes mellitus without [...] for choosing us for your care.\.br\ \.br\ [facility] Ambulatory Visit Summaryon 1 10-16-2022 Ambulatory Visit Summary MARCELLE DEUTSCH :1960 Visit Date:08/16/2023 Ambulatory Visit Instructions Your Diagnosis Kidney stone Gross hematuria BPH (benign prostatic hyperplasia) Personal history of kidney stones Former smoker Family history of kidney cancer Tests Performed Urnls Dip Stick Auto w/o Microscopy POC 67638 Your Care Team Attending Physician - Teo [...] Jose Luis THOMAS MD Where: General Surgery [facility] Invalid Interpretation Code [address] [place] [address]- \.br\ Monday 8:40 AM EDT \.br\ With: Ursula Love MD\.br\ Where: [facility] Patient Education 08-16-20 Patient Education Nephrology Dietary [...] Spinach (cooked), rhubarb, beets, sweet potatoes, and Kazakh chard. ? Peanuts. ? Potato chips, irish fries, and baked potatoes with skin on. ? Nuts and nut products. ? Chocolate. ? If you regularly take a diuretic medicine, make sure to eat at least 1 or 2 servings of fruits or vegetables that are high in potassium each day. These include: ? Avocado. ? Banana. ? [place], prune, carrot, or tomato juice. ? Baked [...] fish oil, or vitamin B6. ? Take pisp-ftd-axfpdpb and prescription medicines only as told by your health care provider. These include supplements. What foods should I limit? Limit your in (more content not included)... Normal [facility] Screenson 08-16-2023 Screens [id number] #1.00TIFF Normal [facility] Urology Office/Clinic Noteon 08-16-2023 Urology [...] Modifications. -Increase fluid intake, 90oz/day, clear fluids, lemon/[place] 2. Gross hematuria (R31.0: Gross hematuria) CT [...] (benign prostatic (more content not included)... Normal [facility] Comment on above: Result Comment: [...] Oral contrast amount in ml's: 0 Normal [facility] Consent for Treatmenton 07-17 Consent for Treatment [id number] #1.00TIFF [facility] Ambulatory Visit Summaryon 1 Ambulatory Visit [...] Jose Luis THOMAS MD Where: General Surgery [facility] Invalid Interpretation Code [address] [place] [address]- \.br\ Monday 8:40 AM EDT \.br\ With: Ursula Love MD\.br\ Where: [facility] Nurse Consultation Noteon Nurse Consultation Note [...] influenza virus vaccine, inactivated 07/30/2018 Recorded Normal [facility] URINALYSISOrdered By: Isaiah Garcia on 08-04-2023 Bacteria [...] PM) Normal Negative [facility] UA Auto SS [place].plasma/Lithiu m.RBC (Bld) [Mass ratio] 0-3 /HPF Normal [...] [facility] UA Auto SS Urobilinogen Qn (U) 0.9444368 {Denny'U}/dL Normal 0.0 - 1.0 EU/dL FT UA Auto SS WBC Auto Ql (U) Negative (08/04/23 2:10 PM) Normal Negative [facility] UA Auto SS WBC LM.HPF (Urine sed) [#/Area] 0-5 /HPF Normal 0-5/HPF [facility] UA Auto SS Urinalysison 08-04-2023 Bacteria LM Ql (Urine sed) TRACE Normal Trace [facility] Comment on above: Performed By: #### 1 2942088 ####[facility] [address] [place] [address] Bilirubin Ql (U) Negative Normal Negative [facility] Comment on above: Performed By: #### 1 0379964 ####[facility] [address] [place] [address] Clarity (U) CLEAR Normal Clear [facility] Comment on above: Performed By: #### 1 3034120 ####[facility] [address] [place] [address] Color (U) YELLOW Normal Yellow [facility] Comment on above: Performed By: #### 1 1944830 ####[facility] [address] [place] [address] Crystals LM Ql (Urine sed) Present Normal [facility] Comment on above: Performed By: #### 1 4211548 ####[address] [address] Epithelial cells.squamous LM.HPF (Urine sed) [#/Area] 0-2 Normal 0-2 [facility] Comment on above: Performed By: #### 1 3913786 ####[facility] [address] [place] [address] Glucose Test strip (U) [Mass/Vol] Negative Normal Negative [facility] Comment on above: Performed By: #### 1 0190641 ####[facility] [address] [place] [address] Hemoglobin Ql (U) Negative Normal Negative [facility] Comment on above: Performed By: #### 1 2174689 ####[facility] [address] [place] [address] Ketones (U) [Mass/Vol] Negative Normal Negative [facility] Comment on above: Performed By: #### 1 8974848 ####[facility] [address] [place] [address] [place].plasma/Lithiu m.RBC (Bld) [Mass ratio] 0-3 Normal 0-3 [facility] Comment on above: Performed By: #### 1 8012532 ####[facility] [address] [place] [address] Nitrite Ql (U) Negative Normal Negative [facility] Comment on above: Performed By: #### 1 7399660 ####[address] [address] pH (U) 6.0 [pH] Invalid Interpretation Code 5.0-9.0 [facility] Comment on above: Performed By: #### 1 3326291 ####[address] [address] Protein (U) [Mass/Vol] Negative Normal Negative [facility] Comment on above: Performed By: #### 1 1405458 ####[address] [address] Specific gravity (U) [Rel density] <=1.005 Invalid Interpretation Code 1.005-1.030 [facility] Comment on above: Performed By: #### 1 8945878 ####[address] [address] Type of Urine collection method Clean Catch Normal [facility] Comment on above: Performed By: #### 1 9385441 ####[address] [address] Urobilinogen Qn (U) 0.2 {Denny'U}/dL Normal 0.0-1.0 [facility] Comment on above: Performed By: #### 1 1789187 ####[address] [address] WBC Auto Ql (U) Negative Normal Negative [facility] Comment on above: Performed By: #### 1 0532294 ####[address] [address] WBC LM.HPF (Urine sed) [#/Area] 0-5 Normal 0-5 [facility] Comment on above: Performed By: #### 1 4829504 ####[address] [address] Physician Referralon 023 Physician Referral [id number] #1.00TIFF Normal [facility] Lab Reportson 08-02-2023 Lab Reports [id number] #1.00TIFF Normal [facility] Ambulatory Visit Summaryon 1 Ambulatory Visit Summary MARCELLE DEUTSCH :1960 Visit Date:07/19/2023 Ambulatory Visit Instructions Your Diagnosis BMI 28.0-28.9,adult Non-smoker Hematuria Kidney stone Left flank pain Dysuria Tests Performed Urnls Dip Stick Non-Auto w/o Micrscpy POC 79952 Your Care Team Attending Physician - Juan [...] Appointments Monday 8:00 AM EDT With: Where: [facility] Normal [address] [place] [address]- \.br\ Medications\.br \ What How Much When Why Instructions\.b r\ New tamsulosin (Flomax 0.4 mg Cap) 1 Capsules By Mouth Every day BMI 28.0-28.9,adult Non-smoker Hematuria Kidney stone Left flank pain Dysuria Pickup at [facility]/pharmacy #8786\.br\ Unchanged amlodipine (amLODIPine 5 mg Tab) By [...] day (in the evening)\.br\ Pharmacy Information\.br \ [facility]/pharmacy #[id number]: [address], [place] [phone]\.br\ Test Results\.br\ Urnls Dip Stick Non-Auto w/o Micrscpy POC 04008 (07/19/2023)\.b r\ Bilirubin Urine Dipstick - Negative\.br\ Blood Urine Dipstick - 3+ Large\.br\ Glucose Urine Dipstick - Negative\.br\ Ketones Urine Dipstick - Negative\.br\ Leukocytes Urine Dipstick - Negative\.br\ Nitrite Urine Dipstick - Negative\.br\ Protein Urine Dipstick - Negative\.br\ Specific [place] Urine Dipstick - <=1.005\.br\ Urine Appearance Urine Dipstick - Clear\.br\ Urine Color Urine Dipstick - Light yellow\.br\ Urobilinogen Urine Dipstick - Normal 0.2-1 EU/dl\.br\ pH Urine Dipstick - 7\.br\ Allergies\.br\ penicillins\.br \ Problems\.br\ Ongoing - Any problem that you are currently receiving treatment for.\.br\ BMI 28.0-28.9,adult \.br\ CAD in [place] artery\.br\ Controlled type 2 diabetes mellitus without [...] Dyslipidemia\.b r\ Hypertension\.b r\ Metabolic syndrome\.br\ \.br\ [facility] Ambulatory Visit Summary MARCELLE DEUTSCH :1960 Visit Date:07/19/2023 Ambulatory Visit Instructions Your Diagnosis BMI 28.0-28.9,adult Non-smoker Hematuria Kidney stone Left flank pain Dysuria Tests Performed Urnls Dip Stick Non-Auto w/o Micrscpy POC 15131 Your Care Team Attending Physician - Karen [...] Monday 8:00 AM EDT [facility]: [facility] Normal [address] [place] [address]- \.br\ Medications\.br \ What How Much When Why Instructions\.b r\ New tamsulosin (Flomax 0.4 mg Cap) 1 Capsules By Mouth Every day BMI 28.0-28.9,adult Non-smoker Hematuria Kidney stone Left flank pain Dysuria Pickup at [facility]/pharmacy #[id number]\.br\ Unchanged amlodipine (amLODIPine 5 mg Tab) By [...] (in the evening)\.br\ Pharmacy Information\.br \ [facility]/pharmacy #[id number]: [address], [place] [phone]\.br\ Test Results\.br\ Urnls Dip Stick Non-Auto w/o Micrscpy POC 55902 (07/19/2023)\.b r\ Bilirubin Urine Dipstick - Negative\.br\ Blood Urine Dipstick - 3+ Large\.br\ Glucose Urine Dipstick - Negative\.br\ Ketones Urine Dipstick - Negative\.br\ Leukocytes Urine Dipstick - Negative\.br\ Nitrite Urine Dipstick - Negative\.br\ Protein Urine Dipstick - Negative\.br\ Specific [place] Urine Dipstick - <=1.005\.br\ Urine Appearance Urine Dipstick - Clear\.br\ Urine Color Urine Dipstick - Light yellow\.br\ Urobilinogen Urine Dipstick - Normal 0.2-1 EU/dl\.br\ pH Urine Dipstick - 7\.br\ Allergies\.br\ penicillins\.br \ Problems\.br\ Ongoing - Any problem that you are currently receiving treatment for.\.br\ BMI 28.0-28.9,adult \.br\ CAD in [place] artery\.br\ Controlled type 2 diabetes mellitus without [...] r\ Hypertension\.b r\ Metabolic syndrome\.br\ \.br\ [facility] Family Medicine Office/Clini c Noteon 07-19-2023 [...] Daily, # 10 cap(s), Refills(s) 0, Pharmacy: [facility]/pharmacy #[id number], 178, cm, 07/19/23 11:20:00 EDT, Height/Length Dosing, 89.2, kg, 07/19/23 11:20:00 EDT, Weight Dosing Urnls Dip Stick Non-Auto w/o Micrscpy POC 90083 2. Hematuria (R31.9: Hematuria, unspecified) large blood in urinalysis in office. everything else negative Ordered: tamsulosin, 0.4 mg = 1 cap(s), Oral, Daily, # 10 cap(s), Refills(s) 0, Pharmacy: [facility]/pharmacy #[id number], 178, cm, 07/19/23 11:20:00 EDT, Height/Length Dosing, 89.2, kg, 07/19/23 11:20:00 EDT, Weight Dosing Urnls Dip Stick Non-Auto w/o Micrscpy POC 86218 3. Kidney stone (N20.0: Calculus of kidney) will order flomax. if symptoms worsen will order KUB Ordered: tamsulosin, 0.4 mg = 1 cap(s), Oral, Daily, # 10 cap(s), Refills(s) 0, Pharmacy: [facility]/pharmacy #[id number], 178, cm, 07/19/23 11:20:00 EDT, Height/Length Dosing, 89.2, kg, 07/19/23 11:20:00 EDT, Weight Dosing 4. Dysuria (R30.0: Dysuria) pt states the pain is improving Ordered: tamsulosin, 0.4 mg = 1 cap(s), Oral, Daily, # 10 cap(s), Refills(s) 0, Pharmacy: [facility]/pharmacy #[id number], 178, cm, 07/19/23 11:20:00 EDT, Height/Length Dosing, 89.2, kg, 07/19/23 11:20:00 EDT, Weight Dosing Urnls Dip Stick Non-Auto w/o Micrscpy POC 58333 5. Non-smoker (Z78.9: Other specified health status) continue not smoking Ordered: tamsulosin, 0.4 mg = 1 cap(s), Oral, Daily, # 10 cap(s), Refills(s) 0, Pharmacy: [facility]/pharmacy #6177, 178, cm, 07/19/23 11:20:00 EDT, Height/Length Dosing, 89.2, kg, 07/19/23 11:20:00 EDT, Weight Dosing Urnls Dip Stick Non-Auto w/o Micrscpy POC 29603 6. BMI 28.0-28.9,adult (Z68.28: Body mass index [BMI] 28.0-28.9, adult) BMI education complete Ordered: tamsulosin, 0.4 mg = 1 cap(s), Oral, Daily, # 10 cap(s), Refills(s) 0, Pharmacy: [facility]/pharmacy #[id number], 178, cm, 07/19/23 11:20:00 EDT, Height/Length Dosing, 89.2, kg, 07/19/23 11:20:00 EDT, Weight Dosing Urnls Dip Stick Non-Auto w/o Micrscpy POC 82398 Follow-up No qualifying data available Problem List/Past Medical History Ongoing BMI 28.0-28.9,adult CAD in [place] artery Controlled type 2 diabetes mellitus without [...] Low Risk, (more content not included)... Normal [facility] Comment on above: Result Comment: Elec tronically Signed By: Karen Deleon\.br\Date and Time Signed: 07/19/23 17:48 EDT PSA Free & Totalon 3 Free PSA/Total PSA [Mass fraction] UT Abnormal >=25.0 [facility] Comment on above: Result Comment: [...] SO, 1998; [id number] Performed By: #### 1 [id number], [id number] #### [facility] [address] [place] [address] Free PSA [Mass/Vol] <0.1 Invalid Interpretation Code [facility] System Comment on above: Result Comment: The concentration of free PSA and total PSA determined with assays from different manufacturers can vary due to differences in assay methods and specificity. Values obtained with different senior game developer's assays cannot be used interchangeably. The methodology used to obtain this result was chemiluminescence using [employer]'s Access Hybritech PSA reagent and Access Hybritech free PSA reagent. Performed By: #### 1 [id number], [id number] #### [facility] [address] [place] [address] Prostate specific Ag [Mass/Vol] 0.2 ng/mL Normal 0.1-3.5 [facility] Comment on above: Result Comment: The concentration of PSA determined by different manufacturers can vary due to differences in assay methods and reagent specificity. Values obtained from different assay methods cannot be used interchangeably. The methodology used for this result was chemiluminescence using [employer]'s Access Hybritech PSA reagent. Performed By: #### 1 [id number], [id number] #### [facility] [address] [place] [address] CHEMISTRYOrdered By: Julien merida on 07-04-2023 Albumin DL <= 20 mg/L (U) [Mass/Vol] microgram/mL Normal 0.0 - 19.0 mcg/mL [facility] Remisol Albumin Elph (U) [Mass fraction] mg/dL Invalid Interpretation Code [facility] Remisol Creatinine (U) [Mass/Vol] 17.7 mg/dL Invalid Interpretation Code [facility] Remisol U Prot/Creat Ratio [facility] Invalid Interpretation Code 0.00 - 200.00 [facility] Remisol U Microalbon 07-04-2023 Albumin DL <= 20 mg/L (U) [Mass/Vol] mg/dL Normal 0.0-19.0 [facility] Comment on above: Performed By: #### 1 [id number] ####[facility] [address] [place] [address] U Protein/Creat Ratioon 06-16 Albumin Elph (U) [Mass fraction] <6.0 Invalid Interpretation Code [facility] Comment on above: Result Comment: The reference range and other method performance specifications have not been established for this test; results should be integrated into the clinical context for interpretation. Performed By: #### 1 [id number], [id number] ####[facility] [address] [place] [address] Creatinine (U) [Mass/Vol] 17.7 mg/dL Invalid Interpretation Code [facility] Comment on above: Result Comment: The reference range and other method performance specifications have not been established for this test; results should be integrated into the clinical context for interpretation. Performed By: #### 1 [id number], [id number] ####[facility] [address] [place] [address] U Prot/Creat Ratio [facility] Invalid Interpretation Code .00-200.00 [facility] Comment on above: Performed By: #### 1 [id number], [id number] ####[facility] [address] [place] [address] Ambulatory Visit Summaryon 0 07-03-2023 Ambulatory Visit [...] Appointments Monday 8:00 AM EDT With: Where: [facility] Normal [address] [id number] \.br\ Medications\.br \ What How Much When Instructions\.b r\ Changed omeprazole (omeprazole 20 mg Cap-DR) 1 Capsules By Mouth Every day [facility]up at [facility]\.br\ Unchanged diltiazem (diltiazem 30 mg Tab) See [...] concerns \.br\ Pharmacy Information\.br \ [facility]: [address] [place], [place] [id number] [phone]\.br\ Allergies\.br\ penicillins\.br \ Problems\.br\ Ongoing - Any problem that you are currently receiving treatment for.\.br\ BMI 28.0-28.9,adult \.br\ CAD in [place] artery\.br\ Controlled type 2 diabetes mellitus without complication, without long-term current use of insulin\.br\ Excess ear wax\.br\ GERD without esophagitis\.br \ Longstanding persistent atrial fibrillation\.b r\ Mixed hyperlipidemia\ .br\ Non-smoker\.br\ Primary hypertension\.b r\ Screening for colon cancer\.br\ Screening for prostate cancer\.br\ Historical - Any problem that you are no longer receiving treatment for.\.br\ Atrial fibrillation\.b r\ Dyslipidemia\.b r\ Hypertension\.b r\ Metabolic syndrome\.br\ \.br\ [facility] CHEMISTRYOrdered By: Bobby roman on 07-03-2023 HbA1c (Bld) [Mass fraction] 6.8 % High <=5.9% [facility] ChemAutoSS Family Medicine Office/Clini c Noteon 07-03-2023 Family Medicine Office/Clinic Note HPI Staff Marcelle is a 63 year old male presenting for a full physical exam Health Maintenance: Colonoscopy: coloard 3 years ago, due PSA: ?? Last Labs: [facility] he's unsure when no results in file [...] didn't feel it was a problem email [email or web address] must go on refill omeprazole to [facility] History of Present Illness - Here for [...] Daily, # 30 tab(s), Refills(s) 0, Pharmacy: [facility]/pharmacy #[id number] omeprazole, 20 mg = 1 cap(s), Oral, Daily, # 90 cap(s), Refills(s) 1, Pharmacy: [facility] [employer], 178, cm, 07/03/23 7:24:00 EDT, Height/Length Dosing, 90, kg, 07/03/23 7:24:00 EDT, Weight Dosing - Follow up in 6 months for Welcome to medicare. Follow-up No qualifying data available Problem List/Past Medical History Ongoing BMI 28.0-28.9,adult CAD in [place] artery Controlled type 2 diabetes mellitus without complication, without long-term current use of insulin Excess ear wax GERD without esophagitis Longstanding (more content not included)... Normal [facility] Comment on above: Result Comment: Elec tronically Signed By: Km NIELSON, Ursula Luis.br\Date and Time Signed: 07/03/23 07:50 EDT Formson 07-03-2023 Forms [id number] #1.00CD:127 Normal [facility] Forms [id number]# 1.00CD:127 Normal [facility] [id number] 07-03-2023 HbA1c (Bld) [Mass fraction] 6.8 % High <=5.9 [facility] Comment on above: Performed By: #### 1 [id number], [id number] #### [facility] [address] [id number] Office Visiton 06-21-2023 Follow-up visit [id number] Marcelle Deutsch 1960 M Date Provider Department Center 06/21/2023 BLANKA LOMELI [facility] Family History Problem Relation Age of Onset Coronary artery disease Father Atrial fibrillation Father Heart attack Brother Family Status - Relation Status Age at Father Brother Level of Service:63175 [place] OFFICE/OUTPATIENT ESTABLISHED LOW MDM 20-29 MIN Reason for Visit and Comments: Follow-up [095016] - 6 month F/U Normal [facility] CBC AUTO DIFFon 01-04-2023 BASO # 0.1 103/ul Normal 0.0-0.1 [facility] Comment on above: Performed By: #### C BC #### [facility] [address] [address] [address] Lucia San Basophils/100 WBC (Bld) 1.0 % Normal 0.2-2.0 [facility] Comment on above: Performed By: #### C BC #### [facility] [address] [place] [address] Dr. Lucia San EO # 0.1 103/ul Normal 0.0-0.7 [facility] Comment on above: Performed By: #### C BC #### [facility] [address] [place] [address] Dr. Lucia San Eosinophils/100 WBC (Bld) 2.5 % Normal 0.9-7.0 [facility] Comment on above: Performed By: #### C BC #### [facility] [address] [place] [address] Dr. Lucia San Erythrocyte distribution width (RBC) [Ratio] 17.3 % Critically high 11.0-15.0 [facility] Comment on above: Performed By: #### C BC #### [facility] [address] [place] [address] Dr. Lucia San Hematocrit (Bld) [Volume fraction] 35.2 % Critically low 42.0-54.0 [facility] Comment on above: Performed By: #### C BC #### [facility] [address] [place] [address] Dr. Lucia San Hemoglobin (Bld) [Mass/Vol] 11.3 g/dL Critically low 14.0-18.0 [facility] Comment on above: Performed By: #### C BC #### [facility] [address] [place] [address] Dr. Lucia San IG # 0.02 10e3/ul Normal 0.00-0.03 [facility] Comment on above: Performed By: #### C BC #### [facility] [address] [place] [address] Dr. Lucia San IG % 0.4 % Normal 0.0-0.5 [facility] Comment on above: Performed By: #### C BC #### [facility] [address] [place] [address] Dr. Lucia San LYMPH # 1.6 103/ul Normal 1.2-3.8 [facility] Comment on above: Performed By: #### C BC #### [facility] [address] [place] [address] Dr. Lucia San Lymphocytes/100 WBC (Bld) 30.9 % Normal 20.5-60.0 [facility] Comment on above: Performed By: #### C BC #### [facility] [address] [place] [address] Dr. Lucia San MANUAL DIFF REQ NO Normal [facility] Comment on above: Performed By: #### C BC #### [facility] [address] [place] [address] Dr. Lucia San MCH (RBC) [Entitic mass] 23.9 pg Critically low 25.9-34.0 [facility] Comment on above: Performed By: #### C BC #### [facility] [address] [place] [address] Dr. Lucia San MCHC (RBC) [Mass/Vol] 32.1 g/dL Normal 29.9-35.2 [facility] Comment on above: Performed By: #### C BC #### [facility] [address] [place] [address] Dr. Lucia San MCV (RBC) [Entitic vol] 74.6 fL Critically low 80.0-94.0 [facility] Comment on above: Performed By: #### C BC #### [facility] [address] [place] [address] Dr. Lucia San MONO # 0.5 103/ul Normal 0.3-0.8 [facility] Comment on above: Performed By: #### C BC #### [facility] [address] [place] [address] Dr. Lucia San Monocytes/100 WBC (Bld) 9.1 % Normal 1.7-12.0 [facility] Comment on above: Performed By: #### C BC #### [facility] [address] [place] [address] Dr. Lucia San NEUT # 2.9 103/ul Normal 1.4-6.5 [facility] Comment on above: Performed By: #### C BC #### [facility] [address] [address] [address] Lucia San Neutrophils/100 WBC (Bld) 56.1 % Normal 43.0-75.0 [facility] Comment on above: Performed By: #### C BC #### [facility] [address] [address] [address] Lucia San Platelet mean volume (Bld) [Entitic vol] 11.6 fL Normal 9.5-13.5 [facility] Comment on above: Performed By: #### C BC #### [facility] [address] [address] [address] Lucia San PLT 172 103/ul Normal 150-450 [facility] Comment on above: Performed By: #### C BC #### [facility] [address] [address] [address] Lucia San RBC 4.72 106/ul Normal 4.70-6.10 [facility] Comment on above: Performed By: #### C BC #### [facility] [id number] [address] Lucia San WBC 5.2 103/ul Normal 4.0-11.0 [facility] Comment on above: Performed By: #### C BC #### [facility] [address] [place], [place] [id number] Dr. Lucia San ECHOCARDIO M/2D COMPLETEon 0 01-04-2023 ECHOCARDIO M/2D COMPLETE Patient: MARCELLE DEUTSCH Exam Date: 01/04/2023 : 1960 Gender:M Ordering : DR BLANKA GORE M.D. Admission #: [id number] Family : Order #: [id number] CLICK HERE TO VIEW EXAM ECHOCARDIOGRAM REPORT [...] Area (VTI): 3.28 cm2, 3.28 cm2 Deceleration Buchanan: 0.48 m/s2 Pressure Half-Time: 1.33 s Peak [...] [place] M.D. on 01/04/2023 at 15:00 Normal [facility] GLYCOHEMOGLOBIN A1Con 2022 ADA RECOMMENDATION SEE BELOW Normal [facility] Comment on above: Result Comment: ADA RECOMMENDED LIMIT 4.0 - 6.0 ADA THERAPEUTIC TARGET < 7.0 ACTION SUGGESTED > 7.0 Performed By: #### A 1C #### [facility] [address] [place] [address] Dr. Lucia San HbA1c (Bld) [Mass fraction] 6.9 % Critically high 4.5-6.2 [facility] Comment on above: Performed By: #### A 1C #### [facility] [address] [place] [address] Dr. Lucia San LIPID PROFILEon 01-04-2023 CHOL-HDL RATIO NORM SEE BELOW Normal [facility] Comment on above: Result Comment: 3.3 - 4.4 LOW RISK 4.4 - 7.1 AVERAGE RISK 7.1 - 11.0 MODERATE RISK >11.0 HIGH RISK Performed By: #### L IPID #### [facility] [address] [address] [address] Lucia San Cholesterol [Mass/Vol] 140 mg/dL Normal <=200 [facility] Comment on above: Performed By: #### L IPID #### [facility] [address] [address] [address] Lucia San Cholesterol in HDL [Mass/Vol] 37 mg/dL Critically low 40-60 [facility] Comment on above: Performed By: #### L IPID #### [facility] [address] [address] [address] Lucia San Cholesterol in LDL [Mass/Vol] 80.2 mg/dL Normal [facility] Comment on above: Performed By: #### L IPID #### [facility] [address] [place] [address] Dr. Lucia San Cholesterol.total/Cho lesterol in HDL [Mass ratio] 3.8 {ratio} Normal [facility] Comment on above: Performed By: #### L IPID #### [facility] [address] [place] [address] Dr. Lucia San HDL NORMAL > or = 60 mg/dl - LOW CARDIOVASCULAR RISK <40 mg/dl - HIGH CARDIOVASCULAR RISK Normal [facility] Comment on above: Performed By: #### L IPID #### [facility] [address] [place] [address] Dr. Lucia San LDL CALC NORMAL SEE BELOW Normal [facility] Comment on above: Result Comment: <100 mg/dl OPTIMAL 100 - 129 mg/dl NEAR OR ABOVE OPTIMAL 130 - 159 mg/dl BORDERLINE HIGH 160 - 189 mg/dl HIGH >190 mg/dl VERY HIGH Performed By: #### L IPID #### [facility] [address] [place] [address] Dr. Lucia San Triglyceride [Mass/Vol] 114 mg/dL Normal <=150 [facility] Comment on above: Performed By: #### L IPID #### [facility] [address] [place] [address] Dr. Lucia San VLDL CALC 22.8 mg/dL Normal [facility] Comment on above: Performed By: #### L IPID #### [facility] [address] [place] [address] Dr. Lucia San MICROALBUMIN, RAND URon 12-15 mALB 1.5 mg/L Normal <=30.0 [facility] Comment on above: Performed By: #### M ALBR #### [facility] [address] [place] [address] Dr. Lucia San NM STRESS/REST MULTIon 01-04 NM STRESS/REST MULTI Patient: MARCELLE DEUTSCH Exam Date: 01/04/2023 : 1960 Gender:M Ordering : DR BLANKA GORE M.D. Admission #: [id number] Family : Order #: [id number] CLICK HERE TO VIEW EXAM RADIOLOGY REPORT [...] LOCATION: Basal inferior. Mid-anterior. Mid-inferior. Apical inferior. Hooks. SIZE: Large (5 or more segments). SEVERITY: [...] Guzman MD on 01/04/2023 at 11:17 Normal [facility] PROF 14(COMP METB)on 023 Albumin [Mass/Vol] 4.1 g/dL Normal 3.4-5.0 [facility] Comment on above: Performed By: #### C MP #### [facility] [address] [place] [address] Dr. Lucia San Albumin/Globulin [Mass ratio] 1.7 {ratio} Normal [facility] Comment on above: Performed By: #### C MP #### [facility] [address] [place] [address] Dr. Lucia San ALP [Catalytic activity/Vol] 51 U/L Normal 46-116 [facility] Comment on above: Performed By: #### C MP #### [facility] [address] [place] [address] Dr. Lucia San ALT [Catalytic activity/Vol] 49 U/L Normal 16-63 [facility] Comment on above: Performed By: #### C MP #### [facility] [address] [place] [address] Dr. Lucia San Anion gap [Moles/Vol] 16.6 mmol/L Normal [facility] Comment on above: Performed By: #### C MP #### [facility] [address] [place] [address] Dr. Lucia San AST [Catalytic activity/Vol] 28 U/L Normal 15-37 [facility] Comment on above: Performed By: #### C MP #### [facility] [address] [place] [address] Dr. Lucia San Bilirubin [Mass/Vol] 1.7 mg/dL Critically high 0.2-1.0 [facility] Comment on above: Performed By: #### C MP #### [facility] [address] [place] [address] Dr. Lucia San Calcium [Mass/Vol] 9.2 mg/dL Normal 8.5-10.[address] [facility] Comment on above: Performed By: #### C MP #### [facility] [address] [place] [address] Dr. Lucia San Chloride [Moles/Vol] 100 mmol/L Normal 98-107 [facility] Comment on above: Performed By: #### C MP #### [facility] [address] [place] [address] Dr. Lucia San CO2 [Moles/Vol] 25.9 mmol/L Normal 21.0-32.0 [facility] Comment on above: Performed By: #### C MP #### [facility] [address] [place] [address] Dr. Lucia San Creatinine [Mass/Vol] 1.03 mg/dL Normal 0.70-1.30 [facility] Comment on above: Performed By: #### C MP #### [facility] [address] [place] [address] Dr. Lucia San EGFR-AF PRYDEINIG >60 Normal >=60 [facility] Comment on above: Performed By: #### C MP #### [facility] [address] [place] [address] Dr. Lucia San EGFR-NON AF PRYDEINIG >60 Normal >=60 [facility] Comment on above: Performed By: #### C MP #### [facility] [address] [place] [address] Dr. Lucia San Globulin (S) [Mass/Vol] 2.4 g/dL Normal [facility] Comment on above: Performed By: #### C MP #### [facility] [address] [place] [address] Dr. Lucia San Glucose [Mass/Vol] 151 mg/dL Normal [facility] Comment on above: Performed By: #### C MP #### [facility] [address] [place] [address] Dr. Lucia San Performed By: #### A 1C #### [facility] [address] [place] [address] Dr. Lucia San Potassium [Moles/Vol] 4.5 mmol/L Normal 3.5-5.1 [facility] Comment on above: Performed By: #### C MP #### [facility] [address] [address] [address] Lucia San Protein [Mass/Vol] 6.5 g/dL Normal 6.4-8.2 [facility] Comment on above: Performed By: #### C MP #### [facility] [address] [address] [address] Lucia San Sodium [Moles/Vol] 138 mmol/L Normal 136-[address] [facility] Comment on above: Performed By: #### C MP #### [facility] [address] [address] [address] Lucia San Urea nitrogen [Mass/Vol] 13.0 mg/dL Normal 7.0-18.0 [facility] Comment on above: Performed By: #### C MP #### [facility] [address] [address] [address] Lucia San Urea nitrogen/Creatinine [Mass ratio] 12.6 mg/mg Normal [facility] Comment on above: Performed By: #### C MP #### [facility] [address] [address] [address] Lucia Rondon 02-03-2022 DANIS Office Visit (RADHA) MARCELLE DEUTSCH ([id number]) 1960 M Date Time Provider Department 02/03/22 8:30 AM JANNET GONZALEZ During your visit today, we recorded the following information about you: Pulse Blood pressure Weight Height 60/minute 180/76 85.3 kg 1.765 m Jannet Gonzalez MD 02/03/2022 9:58 AM [facility] Norman Plascencia Department of Cardiovascular Medicine SECTION OF CARDIAC PACING and ELECTROPHYSIOLOGY OUTPATIENT VISIT DATE February 03, 2022 OUTPATIENT VISIT TYPE CONSULTATION PRIMARY CARE PHYSICIAN: Mark Browning DO [address] [place] [address] CHIEF COMPLAINT: PAF HISTORY OF PRESENT ILLNESS [...] he is in SR. He denies syncope. [id number] 3 (HTN, CAD, DM) tolerating Xarelto PAST MEDICAL HISTORY Diagnosis Date - Atrial fibrillation (HCC) 2013 - CAD (coronary artery disease) 09/02/2014 - Diabetes mellitus (HCC) - Dyslipidemia - Hypertension - Metabolic syndrome PAST SURGICAL HISTORY Procedure Laterality Date - AFIB PVI W/COMPL EP STUDY 07/10/2017 - CARDIAC CATH 09/02/2014 [employer] PILOT of proximal RCA. 70% ostial D1. Preserved [...] sweating-No, Frequen (more content not included)... Normal [facility] CNCOon 12-04-2021 CNCO Letter Text Normal [facility] Dermatopathologyon 0 Dermatopathology [facility] Dermatopathology Laboratory [address] [place] [id number] DERMATOPATHOLOGY REPORT Name:MARCELLE DEUTSCH [facility]. Rec #. [id number] Location: [facility] Date of Procedure: 10/02/2020 Race: Unknown Date Received: 10/06/2020 /Sex: 1960 (Age: 60) / M Date Reported: 10/08/2020 Other: Submitting Physician:SONIA GREEN APRN, [employer]-C FINAL DIAGNOSIS A. SKIN, (R) NECK, BIOPSY: [...] is a mayers piece of skin measuring [id number] in aggreg (small). The specimen is inked and embedded in toto. B: Received in formalin is a mayers piece of skin measuring [id number]. The specimen is inked and embedded in toto. ink/10/06/2020 Microscopic Description: A,B: Microscopic examination performed. Normal [facility] Comment on above: Performed By: #### D #### Dermatopathology Vital Signs Date Time Vital Sign Value Performing Clinician Facility 03-14-2024 10:16-0400 Body temperature 97.52 [degF] Ana Spencer [facility] 03-14-2024 10:16-0400 Diastolic blood pressure 85 mm[Hg] Ana Spencer [facility] 03-14-2024 10:16-0400 Heart rate 59 /min Ana Spencer [facility] 03-14-2024 10:16-0400 Mean blood pressure 116 mm[Hg] Ana Spencer [facility] 03-14-2024 10:16-0400 Respiratory rate 16 /min Ana Tj [facility] 03-14-2024 10:16-0400 SaO2% (BldA) [Mass fraction] 99 % Ana Spencer [facility] 03-14-2024 10:16-0400 Systolic blood pressure 179 mm[Hg] Ana Spencer [facility] 02-15-2024 13:10-0400 Blood Pressure Location Ana Spencer [facility] 02-15-2024 13:10-0400 Body temperature 98.06 [degF] Ana Spencer [facility] 02-15-2024 13:10-0400 Diastolic blood pressure 61 mm[Hg] Ana Spencer [facility] 02-15-2024 13:10-0400 Heart rate 62 /min [facility] Tj [facility] 02-15-2024 13:10-0400 Mean blood pressure 77 mm[Hg] Ana Lingke [facility] 02-15-2024 13:10-0400 Respiratory rate 16 /min Ana Lingke [facility] 02-15-2024 13:10-0400 SaO2% (BldA) [Mass fraction] 99 % Ana Lingke [facility] 02-15-2024 13:10-0400 Systolic blood pressure 108 mm[Hg] Ana Spencer [facility] 02-08-2024 13:00-0400 Blood Pressure Location Ana Spencer [facility] 02-08-2024 13:00-0400 Body temperature 98.24 [degF] Ana Lingke [facility] 02-08-2024 13:00-0400 Diastolic blood pressure 82 mm[Hg] Ana Spencer [facility] 02-08-2024 13:00-0400 Heart rate 80 /min Ana Spencer [facility] 02-08-2024 13:00-0400 SaO2% (BldA) [Mass fraction] 100 % Ana Lingke [facility] 02-08-2024 13:00-0400 Systolic blood pressure 142 mm[Hg] Ana Hubbardboske [facility] 01-25-2024 08:58-0400 Diastolic blood pressure 82 mm[Hg] Ana Hubbardboske [facility] 01-25-2024 08:58-0400 Heart rate 65 /min Ana Hubbardboske [facility] 01-25-2024 08:58-0400 Mean blood pressure 118 mm[Hg] Ana Spencer [facility] 01-25-2024 08:58-0400 SaO2% (BldA) [Mass fraction] 99 % Ana Spencer [facility] 01-25-2024 08:58-0400 Systolic blood pressure 190 mm[Hg] Ana Spencer [facility] 08-16-2023 08:21-0400 Blood Pressure Location Shelley Lue [facility] 08-16-2023 08:21-0400 Diastolic blood pressure 83 mm[Hg] Shelley Lue [facility] [facility] 08-16-2023 08:21-0400 Heart rate 69 /min Shelley Lue [facility] 08-16-2023 08:21-0400 Respiratory rate 16 /min Shelley Lue [facility] 08-16-2023 08:21-0400 Systolic blood pressure 166 mm[Hg] Shelley Lue [facility] Encounters Encounter Date Encounter Type Care Provider Facility Start: 07-04-2024 End: 07-04-2024 ambulatory Ana Spencer Facility:[facility] Start: 07-04-2024 End: 07-04-2024 Patient encounter procedure Ana Spencer [facility] Start: 06-27-2024 End: 06-27-2024 Orders Only Jannet Gonzalez MD Work Phone: Cardiology Comment on above: Atrial fibrillation, unspecified type (HCC) (Primary Dx) Start: 2024 End: 2024 ambulatory Ursula Porter Ross Facility:[facility] Start: 06-06-2024 End: 06-06-2024 ambulatory Ana Spencer Facility:[facility] Start: 06-06-2024 End: 06-06-2024 Patient encounter procedure Ana Spencer [facility] Start: 05-09-2024 End: 05-09-2024 ambulatory Ana Spencer Facility:[facility] Start: 05-09-2024 End: 05-09-2024 Patient encounter procedure Ana Spencer [facility] Start: 04-24-2024 End: 05-08-2024 ambulatory Ursula IveyNelly Love Facility:[facility] Start: 04-11-2024 End: 04-11-2024 ambulatory Ana Spencer Facility:[facility] Start: 04-11-2024 End: 04-11-2024 Patient encounter procedure Ana Spencer [facility] Start: 03-26-2024 End: 03-26-2024 ambulatory Ursula Love [facility] Start: 03-22-2024 End: 04-09-2024 ambulatory Ursula IveyNelly Love [facility] Start: 03-14-2024 End: 03-14-2024 ambulatory Ana Spencer Facility:[facility] Start: 03-14-2024 End: 03-14-2024 Patient encounter procedure Ana Spencer [facility] Start: 03-12-2024 End: 03-12-2024 ambulatory Ana Spencer Facility:[facility] Start: 03-12-2024 End: 03-12-2024 Patient encounter procedure Ana Spencer [facility] Start: 02-15-2024 End: 02-15-2024 ambulatory Ana Spencer Facility:[facility] Start: 02-15-2024 End: 02-15-2024 Patient encounter procedure Ana Spencer [facility] Start: 02-08-2024 End: 02-08-2024 ambulatory Ana Spencer Facility:[facility] Start: 02-08-2024 End: 02-08-2024 Patient encounter procedure Ana Spencer [facility] Start: 02-01-2024 End: 02-01-2024 ambulatory Ana Spencer Facility:[facility] Start: 02-01-2024 End: 02-01-2024 Patient encounter procedure Ana Spencer [facility] Start: 01-25-2024 End: 02-07-2024 ambulatory Ursula Love Facility:[facility] Start: 01-25-2024 End: 01-25-2024 Patient encounter procedure Ana Spencer [facility] Start: 01-16-2024 End: 01-16-2024 ambulatory Bharath Melton Facility:[facility] Start: 01-16-2024 End: 01-16-2024 Patient encounter procedure Bharath Melton [facility] Start: 12-29-2023 End: 12-29-2023 ambulatory PARISA GOPAL [facility] Start: 12-28-2023 End: 12-28-2023 ambulatory Ursula Love Facility:[facility] Start: 12-27-2023 End: 12-27-2023 ambulatory Ursula Love Facility:[facility] Start: 12-27-2023 End: 12-27-2023 Patient encounter procedure Ursula Love [facility] Start: 12-19-2023 ambulatory Ursula Love Facility :[id number] Start: 12-18-2023 End: 12-18-2023 Lab Drop off Ursula Love [facility] Start: 12-18-2023 End: 12-18-2023 ambulatory Ursula Love Facility:[facility] Start: 12-18-2023 End: 12-18-2023 ambulatory Ursula Love Facility:[facility] [place] Start: 10-04-2023 End: 10-04-2023 ambulatory Jose Luis R YONIL Facility: [facility] Start: 10-04-2023 End: 10-04-2023 Patient encounter procedure Jose Luis R YONIL [facility] [place] Start: 09-20-2023 End: 09-20-2023 ambulatory Jose Luis R YONIL Facility:CD:[id number] Start: 08-29-2023 End: 08-29-2023 ambulatory Ursula Love Facility: [place] Start: 08-16-2023 End: 08-16-2023 ambulatory Shelley Bruce Facility:[facility] [place] Start: 08-16-2023 End: 08-16-2023 Patient encounter procedure Shelley Bruce [facility] Start: 08-08-2023 ambulatory Jose Luis THOMAS Facility:[facility] Start: 08-07-2023 End: 08-07-2023 ambulatory Ursula Love Facility:[facility] Start: 08-07-2023 End: 08-07-2023 Patient encounter procedure Ursula Love [facility] Start: 08-04-2023 End: 08-04-2023 Lab Drop off Karen L Juan Antonio [facility] Start: 08-04-2023 End: 08-04-2023 ambulatory 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 Karen L Juan Antonio Facility:[facility] Start: 08-03-2023 ambulatory Jose Luis WILLIAM Facility:[facility] Start: 07-19-2023 End: 07-19-2023 ambulatory S[employer] 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 Karen L Juan Antonio Facility:[facility] Start: 07-04-2023 End: 07-04-2023 ambulatory Ursula Love Facility:[facility] Start: 07-04-2023 End: 07-04-2023 Lab Drop off Ursula Love [facility] Start: 07-03-2023 End: 07-03-2023 Lab Drop off Ursula Love [facility] Start: 07-03-2023 End: 07-03-2023 ambulatory Ursula Love Facility:[facility] Start: 06-21-2023 End: 06-21-2023 ambulatory [facility] Start: 01-04-2023 End: 01-05-2023 ambulatory URSULA LOVE Facility: Start: 04-01-2022 End: 04-01-2022 Off-Site [facility] Start: 03-30-2022 End: 03-30-2022 Off-Site [facility] Start: 02-03-2022 Orders Only Jannet Timmons [...] 9:15 AM EST Office Visit Cardiology [id number] Jannet Gonzalez MD [address] [place] [address] Paroxysmal atrial fibrillation (HCC) [I48.0] Cardiology Comment on above: Paroxysmal atrial fi brillation (HCC) [I48.0] Start: 12-19-2024 End: 12-19-2024 ambulatory 12/19/2024 8:30 AM EST Results Only Cardiology [address] [id number] Paroxysmal atrial fibrillation (HCC) [I48.0] Cardiology Comment on above: Paroxysmal atrial fi brillation (HCC) [I48.0] Start: 12-17-2024 ambulatory Ambulatory Facility:[facility] Start: 06-16-2024 Covid-19 Vaccine ( season) Covid-19 Vaccine ( season) [facility] Start: 06-16-2024 Influenza vaccination Influenza Vacc ine (#1) [facility] Start: 10-16-2023 Advance Directive Discussion Advance Directive Discussion [facility] Start: 2023 Pneumococcal Vaccine : 65+ (1 of 1 - PCV) Pneumococcal Vaccine: 65+ (1 of 1 - PCV) [facility] Start: 07-04-2020 DIABETES SCREEN [facility]EN [facility] Start: 07-04-2020 Diabetes Screening Diabetes Screenin g [facility] Start: 2018 RSV Vaccine (1 - 1-d ose 60+ series) RSV Vaccine (1 - 1-dose 60+ series) [facility] Start: 2013 PROSTATE CANCER SCREENING DISCUSSION PROSTATE CANCER SCREENING DISCUSSION [facility] Start: 2013 Prostate specific antigen measurement Prostate Cancer Screening Discussion [facility] Start: 2008 SHINGRIX VACCINE (1 of 2) SHINGRIX VACCINE (1 of 2) [facility] Start: 2003 COLOGUARD (FIT-DNA) COLOGUARD (FIT-D NA) [facility] Start: 2003 Colonoscopy COLONOSCOPY [facility] Start: 2003 COLORECTAL CANCER SCREENING COLORECTAL CANCER SCREENING [facility] Start: [address] COLONOGRAPHY [facility] Start: 2003 FECAL OCCULT BLOOD FECAL OCCULT BLOO D [facility] Start: 2003 Screening for malign ant neoplasm of colon [facility] Start: 2003 SIGMOIDOSCOPY SIGMOIDOSCOPY [facility] Start: 1993 Lipid panel Lipid Screening [facility] Start: 1993 LIPID SCREEN LIPID SCREEN [facility] Start: 1977 Urine microalbumin profile [facility] Start: 1976 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 ANNUAL PCP TEAM CHRONIC DISEASE VISIT [facility] Start: 1976 Anxiety Screening Anxiety Screening [facility] Start: 1976 BP CONTROLLED (<130/80) BP CONTROLLE D (<130/80) [facility] Start: 1976 Depression Screening Depression Scre ening [facility] Start: 1976 Hepatitis B surface antibody level LDL CHOLESTEROL [facility] Start: 1976 HEPATITIS C SCREENING HEPATITIS C [facility] Start: 1976 Hepatitis C screening Hepatitis C [facility] Start: 1976 HIV SCREENING HIV SCREENING [facility] Start: 1970 Adult depression screening assessment DEPRESSION SCREENING [facility] Start: 1958 Abdominal aortic aneurysm screening Abdominal Aortic Aneurysm Screening [facility] End: 02-03-2023 ECG COMPLETE ECG COMPLETE ECG Routine Persistent atrial fibrillation (HCC) 1 Occurrences starting 02/03/2022 until 02/03/2023 [facility] Work Phone: Comment on above: 1 Occurrences starti ng 02/03/2022 until 02/03/2023 End: 06-27-2025 ECG COMPLETE ECG COMPLETE ECG Routine Atrial fibrillation, unspecified type (HCC) 1 Occurrences starting 06/27/2024 until 06/27/2025 [facility] Work Phone: Comment on above: 1 Occurrences starti ng 06/27/2024 until 06/27/2025 [facility] Immunizations Immunization Date Immunization Notes Care Provider Fa cili 08-31-2021 SARS-CoV-2 (COVID-19 ) Ad26 vaccine, recombinant [facility] Comment on above: Result Comment: 2021: [id number] 07-23-2021 influenza virus vaccine, unspecified formulation [facility] 12-23-2020 SARS-CoV-2 (COVID-19 ) Ad26 vaccine, recombinant [facility] 07-30-2018 influenza virus vaccine, unspecified formulation [facility] NEGATED: Highlighted row has not occurred!07-03-2023 influenza virus vaccine, unspecified formulation Ursula [facility] Payers Date Payer Category Payer Private Health Insurance [facility] AARP SUPPLEMENT [id number] 2023-Present [phone] [address] [place] [address] Indemnity [id number] 2023 Medicare MEDICARE MEDICAR E A AND B [id number] 2023-Present [phone] [address] [address] [place] [address] Medicare [id number] 2023 Medicare [id number] 2023 Unknown [id number] 2021 Unknown ANTHPAU BLUE ACCE SS PPO [id number] 2021-Present [phone] [address] [place] [address] PPO [id number] 1959 Unknown [id number] 1958 Unknown [id number] 2.16.840.1.184435.3.579.2. 593 1958 Unknown [id number] 2.16.840.1.405741.3.579.2. 593 1958 Unknown [id number] 2.16.840.1.535640.3.579.2. 727 1958 Unknown [id number] 2.16.840.1.329277.3.579.2. 727 1958 Unknown [id number] 2.16.840.1.005925.3.579.2. 727 1958 Unknown [id number] 2.16.840.1.232966.3.579.2. 727 1958 Unknown [id number] 2.16.840.1.502088.3.579.2. 727 1958 Unknown [id number] 2.16.840.1.227293.3.579.2. 727 1958 Unknown [id number] 2.16.840.1.974990.3.579.2. 727 1958 Unknown [id number] 2.16.840.1.598941.3.579.2. 727 1958 Unknown [id number] 2.16.840.1.042198.3.579.2. 72 1958 Unknown [id number] 2.16.840.1.521646.3.579.2. 1958 Unknown [id number] 2.16.840.1.872560.3.579.2. 72 1958 Unknown [id number] 2.16.840.1.047639.3.579.2. 1958 Unknown [id number] 2.16.840.1.875326.3.579.2. 1958 Unknown [id number] 2.16.840.1.906056.3.579.2. 1958 Unknown [id number] 2.840.1.016298.3.579.2. 1958 Unknown [id number] 2.16.840.1.395357.3.579.2. 1958 Unknown [id number] 2.16.840.1.280690.3.579.2 1958 Unknown [id number] 2.16.840.1.769585.3.579.2. 1958 Unknown [id number] 2.840.1.436872.3.579.2. 1958 Unknown [id number] 2.16.840.1.750026.3.579.2. 72 1958 Unknown [id number] 2.16.840.1.378730.3.579.2. 1958 Unknown [id number] 2.16.840.1.178671.3.579.2. 1958 Unknown [id number] 2.16.840.1.927953.3.579.2. 1958 Unknown [id number] 2.16.840.1.374351.3.579.2. 727 1958 Unknown [id number] 2.16.840.1.093226.3.579.2. 727 1958 Unknown [id number] 2.16.840.1.427067.3.579.2. 727 1958 Unknown [id number] 2.16.840.1.166525.3.579.2. 727 1958 Unknown [id number] 2.16.840.1.492007.3.579.2. 727 1958 Unknown [id number] 2.16.840.1.888636.3.579.2. 727 1958 Unknown [id number] 2.16.840.1.930391.3.579.2. 727 1958 Unknown [id number] 2.16.840.1.355043.3.579.2. 727 1958 Unknown [id number] 2.16.840.1.685516.3.579.2. 727 1958 Unknown [id number] 2.16.840.1.109412.3.579.2. 727 Social History Date Type Detail Facility Start: 08-25-2014 End: 03-26-2024 Tobacco smoking status NHIS Ex-smoker [facility] Comment on above: Quit in 2013 after M I quit age 53 (39 pack years) Start: 10-25-1957 End: 08-09-2014 History of tobacco use Current smoker [facility] Start: 10-25-1955 End: 08-09-2014 History of tobacco use Cigarette Smoker [facility] Start: 08-25-2014 End: 09-23-2020 Cigarettes smoked current (pack per day) - Reported 0.5 [facility] Start: 08-25-2014 Tobacco use and exposure Smokeless tobacco non-user [facility] Start: 02-03-2022 Alcohol intake Current drinke r of alcohol (finding) [facility] Start: 1960 Sex Assigned At Not on file [facility] Start: 01-24-2022 End: 02-03-2022 Exposure to SARS-CoV-2 (event) Not sure [facility] Tobacco smoking status No Smokin g Status Entered [facility] Start: 09-23-2020 End: 02-03-2022 Sex Assigned At Male [facility] Start: 04-01-2022 Tobacco smoking status Never s moked tobacco (finding) [facility] Tobacco smoking status Never Terrell [facility] Comment on above: Quit in [...] 08-16-2023 Functional Status N/A [facility] [place] 04-01-2022 Functional Status Telehealth Patient Oral [facility] Clinical Notes 02-03-2022 to 01-25-2024 RadiologyRadiologyRadiologyRadiologyRadiologyRadiologyLaboratoryRadiologyLaborat oryRadiologyLaboratoryRadiologyLaboratoryRadiologyRadiologyLaboratoryRadiologyLa boratoryRadiologyLaboratoryRadiology Note Date & Type Note Facility 01-25-2024 Hospital Discharge instructions [facility] 01/25/2024 12:17:38 With:Tj BURTON, Ana Rivas, ONC Address: [address] [address] [phone] When: Unknown Comments:cbc, cmp, iron studies in 3mo and 6mofollow-up in 6mo with [employer] [facility] 12-29-2023 Note LDL > 70 therefore c ontinue lipitor 80 mg and will add zetia 10 mg daily Repeat lipid level before next appt in about 3-6 months [facility] 12-29-2023 Note Hypertension is typi jimmie stable with review of his home b/p log. Definitely has white coat syndrome Continue norvasc, clonidine, lisinopril and toprol [facility] 12-29-2023 Note Coronary artery dise ase is stable Continue GDMT- ASA, lipitor, imdur, toprol, and ranexa continue risk factor modifications- heart healthy diet, regular exercise as tolerated and continue all medications. [facility] 12-29-2023 Note Rate stable with top rol Anticoagulation with eliquis and denied any bleeding tendencies. [facility] 12-29-2023 Note Order ABD Aorta US i n 6 months to re-evalulate infrarenal AAA. 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 He also had a 70% stenosis in a diagonal branch (the prior report mentions that it is not amenable to intervention). At that time left-ventricular gram showed normal left ventricular ejection fraction at 60%. 2. Paroxysmal atrial fibrillation, status post ablation in 2017 at the [facility]. He also had prior cardioversion. He [...] episodes of atrial fibrillation. He has a Spartoodia machine that he uses to transmit ECG. [...] 2 seconds. Neurol (more content not included)... [facility] 12-29-2023 Note Patient here for 6 [...] All other systems reviewed and are negative. [facility] 12-29-2023 Note HTN management with goal b/p < 130/80 Monitor b/p at home Routine monitoring- will repeat Echocardiogram in 6 months with f/u with Dr Gore. D/W pt that he is to call 911 for sharp, tearing chest pain or back pain, call office for b/p consistently > 130/80 and he voiced understanding [facility] 08-29-2023 Note Chief Complaint consultation for [...] 28.0-28.9,adult BPH (benign prostatic hyperplasia) CAD in [place] artery Controlled type 2 diabetes mellitus without [...] mg= 2 tab(s (more content not included)... [facility] Comment on above: Result Comment: Yun jay [...] include: ?8 oz (237 mL) of milk, womeduu-kivkzjjqpqcz-xkipw milk, and calcium-fortifiedfruit juice. Calcium-fortified means that [...] ?Spinach (cooked), rhubarb, beets, sweet potatoes, and Kazakh chard. ?Peanuts. ?Potato chips, irish fries, and baked potatoes with skin on. ?Nuts and nut products. ?Chocolate. If you regularly take a diuretic medicine, make sure to eat at least 1 or 2 servings of fruits or vegetables that are high in potassium each day. These include: ?Avocado. ?Banana. ?[place], prune, carrot, or tomato juice. ?Baked potato. [...] magnesium, fish oil, or vitamin B6. Take ynkh-pej-mfrcrsr and prescription medicines only as told by [...] Casseroles. Pizza. Lasagna. Frozen meals. Potato chips. Citizen Of [place] fries. The items listed above may not [...] provider. Document Revised: 06/13/2022 Document Reviewed: 06/13/2022 [employer] Patient Education 2022 mobli. [facility] 08/08/2023 13:37:21 With:Teo NIELSON, SHERRY Nicole, URO Address: When: Unknown Comments:LANDRY [facility] 06-21-2023 Note [place] Cardiology - [facility] Subjective Marcelle Deutsch is a 63 y.o. year old male patient being seen for Follow-up (6 month F/U) Patient Active Problem List Diagnosis Abnormal stress test Atrial fibrillation ([facility]) CAD (coronary artery disease) Coronary [...] of an abnormal stress test that showed [employer] PILOT of the RCA with filling via left to right collaterals. He also had a 70% stenosis in a diagonal branch (the prior report mentions that it is not amenable to intervention). At that time left-ventricular gram showed normal left ventricular ejection fraction at 60%. 2. Paroxysmal atrial fibrillation, status post ablation in 2017 at the [facility]. He also had prior cardioversion. He [...] episodes of atrial fibrillation. He has a vitalclipa machine that he uses to transmit ECG. [...] mg) by mouth (more content not included)... [facility] 01-04-2023 Note CARDIAC STRESS TEST Requesting [...] and reported myocardial perfusion scan findings. [facility] 04-01-2022 Hospital Discharge instructions Patient Education 04/01/2022 [...] quitting, ask your health care provider. Take zgib-lvn-avlhgda and prescription medicines only as told by [...] 10/07/2014 Document Revised: 05/27/2019 Document Reviewed: 05/03/2019 Dexetra Patient Education 2020 mobli. 04/01/2022 13:38:40 Hyperglycemia Hyperglycemia Hyperglycemia occurs when [...] or polycystic ovarian syndrome (PCOS). Being of Northern Irish-Maur[place], -Northern Irish, /, or / descent. What are the [...] these instructions at home: General instructions Take bvnx-tls-ctyyzrm and prescription medicines only as told by [...] 03/28/2002 Document Revised: 06/19/2017 Document Reviewed: 06/19/2017 Dexetra Patient Education 2020 mobli. 04/01/2022 13:38:33 Atrial Fibrillation Atrial Fibrillation Atrial [...] may be diagnosed with: Electrocardiogram (ECG). Ambulatory radiographer cardiac catheterization. This device records your heartbeats for 24 [...] 10/02/2006 Document Revised: 11/22/2018 Document Reviewed: 11/23/2018 Dexetra Patient Education 2020 mobli. 04/01/2022 13:38:29 Pinched Nerve Pinched Nerve A [...] work. Follow these instructions at home: Take hqrv-dho-cilnkxw and prescription medicines only as told by [...] leg, or the back or neck. Take mkte-orr-rnpzdtb and prescription medicines only as told by [...] 09/22/2003 Document Revised: 10/19/2018 Document Reviewed: 10/16/2018 Dexetra Patient Education [employer]. [facility] [place] 02-03-2022 Note HNO ID: [id number] Author: Jannet Gonzalez MD Service: ? Author Type: Physician Type: Progress Notes Filed: 02/03/2022 9:58 AM Note Text: [facility] [place] [facility] Plascencia Department of Cardiovascular Medicine SECTION OF CARDIAC PACING and ELECTROPHYSIOLOGY OUTPATIENT VISIT DATE February 03, 2022 OUTPATIENT VISIT TYPE CONSULTATION PRIMARY CARE PHYSICIAN: Mark Browning DO [address] [place] [address] CHIEF COMPLAINT: PAF HISTORY OF PRESENT ILLNESS [...] he is in SR. He denies syncope. [id number] 3 (HTN, CAD, DM) tolerating Xarelto PAST MEDICAL HISTORY Diagnosis Date - Atrial fibrillation (HCC) 2013 - CAD (coronary artery disease) 09/02/2014 - Diabetes mellitus (HCC) - Dyslipidemia - Hypertension - Metabolic syndrome PAST SURGICAL HISTORY Procedure Laterality Date - AFIB PVI W/COMPL EP STUDY 07/10/2017 - CARDIAC CATH 09/02/2014 [employer] PILOT of proximal RCA. 70% ostial D1. Preserved [...] patient General: L (more content not included)... [facility] Evaluation + Plan note No data available for this section [facility] [place] Evaluation + Plan note Future Appointments Appointment Date:01/03/2024 08:00:00 AM Scheduled Provider: Location:[facility] Appointment Type:FM Medicare Wellness Welcome Appointment Date:01/03/2024 08:40:00 AM Scheduled Provider:Ursula Love MD Location:[facility] Appointment Type: Open Diagnostic Tests PendingPSA Free & Total 07/03/23Microalbumin Level Urine 07/03/23U Protein/Creat Ratio 07/03/23 [facility] Evaluation + Plan note Future Appointments Appointment Date:01/03/2024 08:00:00 AM Scheduled Provider: Location:[facility] Appointment Type:FM Medicare Wellness Welcome Appointment Date:01/03/2024 08:40:00 AM Scheduled Provider:Ursula [facility] Type[facility] Evaluation + Plan note Future Appointments Appointment Date:08/29/2023 02:20:00 PM Scheduled Provider:Jose Luis THOMAS MD [facility] App[facility] Type: Appointment Date:01/03/2024 08:00:00 AM Scheduled Provider: [facility] App[facility] Type:FM Medicare Wellness Welcome Appointment Date:01/03/2024 08:40:00 AM Scheduled Provider:Ursula Love MD [facility] Appointment Type: Open Diagnostic Tests PendingUrine Culture 08/04/23 Future Scheduled TestsCT Abdomen/Pelvis w/o Contrast 08/02/23 [facility] Evaluation + Plan note Future Appointments Appointment Date:08/29/2023 02:20:00 PM Scheduled Provider:Jose Luis THOMAS MD [facility] App[facility] Type: Appointment Date:01/03/2024 08:00:00 AM Scheduled Provider: [facility] Appointment Type:FM Medicare Wellness Welcome Appointment Date:01/03/2024 08:40:00 AM Scheduled Provider:Ursula Love MD [facility] Appointment Type:[facility] Evaluation + Plan note Future Appointments Appointment Date:08/29/2023 02:20:00 PM Scheduled Provider:Jose Luis THOMAS MD [facility] Appointment Type: Appointment Date:01/03/2024 08:00:00 AM Scheduled Provider: Location:[facility] Appointment Type:FM Medicare Wellness Welcome Appointment Date:01/03/2024 08:40:00 AM Scheduled Provider:Ursula Love MD [facility] Appointment Type:[facility] Future Scheduled TestsUS Aorta 08/08/24 [facility] Evaluation + Plan note Future Appointments Appointment Date:01/03/2024 08:00:00 AM Scheduled Provider: [facility] Type:FM Medicare Wellness Welcome Appointment Date:01/03/2024 08:40:00 AM Scheduled Provider:Ursula Love MD Location:[facility] Appointment Type: Open Future Scheduled TestsUS Aorta 08/08/24 [facility] Evaluation + Plan note Future Appointments Appointment Date:12/17/2024 08:00:00 AM Scheduled Provider: Location:[facility] Appointment Type:FM Medicare Wellness Subsequent Diagnostic Tests PendingHCV Antibody RFX to Quant PCR 12/18/23 Future Scheduled TestsCT Chest, Low Dose Screening 12/18/23US Aorta 08/08/24 [facility] Evaluation + Plan note Future Appointments Appointment Date:03/25/2024 10:45:00 AM Scheduled Provider:Ursula Love MD Location:[facility] Appointment Type: Open Appointment Date:12/17/2024 08:00:00 AM Scheduled Provider: Location:[facility] Appointment Type:FM Medicare Wellness Subsequent Future Scheduled TestsUS Aorta 08/08/24 [facility] Evaluation + Plan note Future Appointments Appointment Date:01/25/2024 09:00:00 AM Scheduled Provider:Ana Kumar [facility] Type:ONC Office Visit [facility] ([place]) Appointment Date:03/25/2024 10:45:00 AM Scheduled Provider:Ursula Love MD Location:[facility] Appointment Type: Open Appointment Date:12/17/2024 08:00:00 AM Scheduled Provider: Location:[facility] Appointment Type:FM Medicare Wellness Subsequent Diagnostic Tests PendingImmunofixation Serum 01/16/24Free K+L Lt Chains,Qn,S 01/16/24Protein Electrophoresis 01/16/24 Future Scheduled TestsUS Aorta 08/08/24 [facility] Evaluation + Plan note Future Appointments Appointment Date:02/01/2024 02:30:00 PM Scheduled Provider: Location[facility] Appointment Type:ONC Injection (FT) Appointment Date:02/08/2024 02:30:00 PM Scheduled Provider: [facility] Type:ONC Injection (FT) Appointment Date:02/15/2024 02:00:00 PM Scheduled Provider: Location:[facility] Appointment Type:ONC Injection (FT) Appointment Date:03/14/2024 10:15:00 AM Scheduled Provider:Ana Kumar Location[facility] Appointment Type:ONC Office Visit 30 (FT) Appointment Date:03/14/2024 10:45:00 AM Scheduled Provider: Location[facility] Appointment Type:ONC Injection (FT) Appointment Date:03/25/2024 10:45:00 AM Scheduled Provider:Ursula Love MD [facility]: Open Appointment Date:12/17/2024 08:00:00 AM Scheduled Provider: Location:[facility] Appointment Type: Medicare Wellness Subsequent Future Scheduled TestsCBC w/ Auto Diff 03/21/24Comprehensive Metabolic Panel 03/21/24Ferritin 03/21/24Iron Level 03/21/24Iron Percent Saturation 03/21/24Transferrin 03/21/24US Aorta 08/08/24 [facility] Evaluation + Plan note Future Appointments [...] Date:03/25/2024 10:45:00 AM Scheduled Provider:Ursula Love MD [facility] Type:FM Open Appointment Date:04/11/2024 02:00:00 [...] (FT) Appointment Date:12/17/2024 08:00:00 AM Scheduled Provider: Location:[facility] Appointment Type: Medicare Wellness Subsequent [...] 03/21/24Iron Percent Saturation 03/21/24Transferrin 03/21/24US Aorta 08/08/24 [facility] Evaluation + Plan note Future Appointments Appointment Date:02/15/2024 01:00:00 PM Scheduled Provider: Location:.[facility] Appointment Type:ONC Injectafer (FT) Appointment Date:02/15/2024 02:00:00 PM Scheduled Provider: Location:[facility] Appointment Type:ONC Injection (FT) Appointment Date:03/14/2024 10:15:00 AM Scheduled Provider:Ana Kumar Location[facility] Appointment Type:ONC Office Visit 30 (FT) Appointment Date:03/14/2024 10:45:00 AM Scheduled Provider: Location:[facility] Appointment Type:ONC Injection (FT) Appointment Date:03/25/2024 10:45:00 AM Scheduled Provider:Ursula Love MD Location:[facility] Appointment Type: Open Appointment Date:04/11/2024 [...] (FT) Appointment Date:12/17/2024 08:00:00 AM Scheduled Provider: Location:[facility] Appointment Type: Medicare Wellness Subsequent [...] 03/21/24Iron Percent Saturation 03/21/24Transferrin 03/21/24US Aorta 08/08/24 [facility] Evaluation + Plan note Future Appointments Appointment Date:03/14/2024 10:15:00 AM Scheduled Provider:Ana Kumar [facility] App[facility] Type:ONC Office Visit 30 (FT) Appointment Date:03/14/2024 10:45:00 AM Scheduled Provider: Location:.[facility] Appointment Type:ONC Injection (FT) Appointment Date:03/25/2024 10:45:00 AM Scheduled Provider:Ursula Love MD Location:[facility] Appointment Type:FM Open Appointment Date:04/11/2024 [...] (FT) Appointment Date:12/17/2024 08:00:00 AM Scheduled Provider: Location:[facility] Appointment Type: Medicare Wellness Subsequent [...] 03/11/24Iron Percent Saturation 03/11/24Transferrin 03/11/24US Aorta 08/08/24 [facility] Evaluation + Plan note Future Appointments Appointment Date:03/14/2024 10:15:00 AM Scheduled Provider:Ana Kumar Location[facility] Appointment Type:ONC Office Visit 30 (FT) Appointment Date:03/14/2024 10:45:00 AM Scheduled Provider: Location:.[facility] Appointment Type:ONC Injection (FT) Appointment Date:03/26/2024 10:45:00 AM Scheduled Provider:Ursula Love MD Location:[facility] Appointment Type: Open Appointment Date:04/11/2024 02:00:00 PM Scheduled Provider: [facility] App[facility] Type:ONC Injection (FT) Appointment Date:05/09/2024 02:00:00 [...] (FT) Appointment Date:12/17/2024 08:00:00 AM Scheduled Provider: Location:[facility] Appointment Type: Medicare Wellness Subsequent Appointment Date:12/19/2024 02:15:00 PM Scheduled Provider: Location:[facility] Appointment Type:ONC Injection (FT) Appointment Date:01/16/2025 02:05:00 PM Scheduled Provider: Location:[facility] Appointment Type:ONC Injection (FT) Appointment Date:02/13/2025 02:15:00 PM Scheduled Provider: Location:.[facility] Appointment Type:ONC Injection (FT) Appointment Date:03/13/2025 02:15:00 PM Scheduled Provider: Location:.[facility] Appointment Type:ONC Injection (FT) Future Scheduled TestsUS Aorta 08/08/24 [facility] Evaluation + Plan note Future Appointments Appointment Date:03/26/2024 10:45:00 AM Scheduled Provider:Ursula Love MD Location:[facility] Appointment Type:FM Open Appointment Date:04/11/2024 [...] (FT) Appointment Date:12/17/2024 08:00:00 AM Scheduled Provider: Location:[facility] Appointment Type: Medicare Wellness Subsequent [...] Percent Saturation 09/07/24Transferrin 06/07/24Transferrin 09/07/24US Aorta 08/08/24 [facility] Evaluation + Plan note Future Appointments [...] (FT) Appointment Date:12/17/2024 08:00:00 AM Scheduled Provider: Location:[facility] Appointment Type:FM Medicare Wellness Subsequent [...] Percent Saturation 09/07/24Transferrin 06/07/24Transferrin 09/07/24US Aorta 08/08/24 [facility] Evaluation + Plan note Future Appointments [...] (FT) Appointment Date:12/17/2024 08:00:00 AM Scheduled Provider: Location:[facility] Appointment Type:FM Medicare Wellness Subsequent [...] Percent Saturation 09/07/24Transferrin 06/07/24Transferrin 09/07/24US Aorta 08/08/24 [facility] Evaluation + Plan note Future Appointments [...] (FT) Appointment Date:12/17/2024 08:00:00 AM Scheduled Provider: Location:[facility] Appointment Type: Medicare Wellness Subsequent Appointment [...] Percent Saturation 09/07/24Transferrin 06/07/24Transferrin 09/07/24US Aorta 08/08/24 [facility] Evaluation + Plan note Future Appointments Appointment Date:08/01/2024 02:00:00 PM Scheduled Provider: Location:.[facility] Appointment Type:ONC Injection (FT) Appointment Date:08/29/2024 02:00:00 PM Scheduled Provider: [facility] Appoint[facility] Type:ONC Injection (FT) Appointment Date:09/09/2024 11:00:00 AM Scheduled Provider:Ana Kumar Location[facility] Appointment Type:ONC Office Visit 30 (FT) Appointment Date:09/26/2024 02:00:00 PM Scheduled Provider: [facility] Appointment Type:ONC Injection (FT) Appointment Date:10/24/2024 02:15:00 PM Scheduled Provider: Location:.[facility] Appointment Type:ONC Injection (FT) Appointment Date:11/21/2024 02:15:00 PM Scheduled Provider: Location:.[facility] Appointment Type:ONC Injection (FT) Appointment Date:12/17/2024 08:00:00 AM Scheduled Provider: Location:[facility] Appointment Type: Medicare Wellness Subsequent Appointment [...] Percent Saturation 09/07/24Transferrin 06/07/24Transferrin 09/07/24US Aorta 08/08/24 [facility] Evaluation note Diagnosis Persistent atrial fibrillation (HCC)- Primary [facility]rial [facility] Atrial fibrillation, unspecified type (HCC)- Primary documented in this encounter [facility] Discharge instructions No data available for this [facility] Progress note No data available for this [facility] Reason for referral (narrative)* Outpatient Procedure (Routine) - Authorized Specialty Diagnoses / Procedures Referred By Contac t Referred To Contact [facility] Diagnoses Persistent atrial fibrillation (HCC) Procedures ECG COMPLETE ECG ROUTINE ECG W/LEAST 12 LDS W/I&R Jannet Gonzalez MD [address] [place] [address] [place] [address] Referral ID Status Reason Start Date Expiration Date Visits Requested Visits Authorized [id number] Authorized Auto-Generat ed Referral 02/03/2022 02/03/2023 1 1 [facility] for referral (narrative)* Outpatient Procedure (Routine) - Authorized Specialty Diagnoses / Procedures Referred By Contac t Referred To Contact 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 Advance Directive(s) 07/10/2017 5:38 AM [...] section and content) DATE CREATED AUTHOR 10/08/2020 [facility] DATE CREATED AUTHOR AUTHOR'S ORGANIZ ATION 02/05/2022 [facility] DATE CREATED AUTHOR AUTHOR'S ORGANIZ ATION 01/17/2023 [facility] DATE CREATED AUTHOR AUTHOR'S ORGANIZ ATION 03/12/2024 [employer] [facility] DATE CREATED AUTHOR AUTHOR'S ORGANIZ ATION 03/13/2024 [facility] DATE CREATED AUTHOR AUTHOR'S ORGANIZ ATION 06/05/2024 [facility] DATE CREATED AUTHOR AUTHOR'S ORGANIZ ATION 06/30/2024 [facility] DATE CREATED AUTHOR AUTHOR'S ORGANIZ ATION 07/07/2024 [facility] Source Comments (unrecognize d section and content) In the event this informatio n is protected by the Federal Confidentiality of Alcohol and Drug Abuse Patient Records regulations: The Federal rules restrict any use of the information to criminally investigate or prosecute any alcohol or drug abuse patient.[facility] the event this information is protected by the Federal Confidentiality of Alcohol and Drug Abuse Patient Records regulations: The Federal rules restrict any use of the information to criminally investigate or prosecute any alcohol or drug abuse patient.[facility] Care Teams (unrecognized sec tion and content) Beater Dumper Relationship Specialty Start Date End Date Mark Browning PCP - General Family Practice 08/11/14 Jannet Gonzalez MD [address] [place] [address] Primary Staff Physician Cardiology 02/03/22 Beater Dumper Relationship Specialty Start Date End Date Mark [...] BE BASED ON THE PRIMARY CLINICAL RECORDS. [facility]. provides no warranty or guarantee of the accuracy or completeness of information in this document.
== END 2024-07-10 12:01 | disposition home or self-care (01) ==
LOC: PM 07-11 09:01
PROVIDERS: PCP Family Medicine; Visit Provider Nurse Practitioner
DX: M46.1 Sacroiliitis, not elsewhere classified (principal); M47.816 Spondylosis without myelopathy or radiculopathy, lumbar region; M51.36 Other intervertebral disc degeneration, lumbar region; M48.062 Spinal stenosis, lumbar region with neurogenic claudication; Z51.81 Encounter for therapeutic drug level monitoring; M79.18 Myalgia, other site; I71.40 Abdominal aortic aneurysm, without rupture, unspecified
CPT/HCPCS: 72114; G0463

== ENCOUNTER 2024-07-10 13:51 | Outpatient (OUT) | payer MEDICARE, SELFPAY ==
--- NOTE | 2024-07-10 13:56 | XR_ITS ---
[place] [id number] Patient Name: MARCELLE DEUTSCH MRN: [id number] date: 1960 Sex: M Assigned Patient Location: [facility] Current Patient Location: Accession/Order Number: [id number] Exam Date: 07/10/2024 14:00 Report Date: 07/12/2024 06:46 At the request of: BRICE LEO Procedure: XR lumbar spine 6V w bending EXAMINATION: XR lumbar spine 6V w bending HISTORY: Lumbar spondylosis/stenosis ; chronic low back pain radiating into both hips COMPARISON: No relevant comparison available. FINDINGS: BONES: No fracture, spondylolisthesis, or change in alignment during flexion and extension. Slight left convex curvature of lumbar spine. Mild degenerative facet arthropathy L4-L5, L5-S1. Minimal degenerative changes of the sacroiliac joints. No sclerosis along the sacroiliac margins to suggest sacroiliitis. DISC SPACES: No significant disc height narrowing, subluxation, or endplate abnormality. PARASPINOUS: Aneurysmal dilation and marked atherosclerotic disease of abdominal aorta, 4.2 cm in diameter. OTHER: Negative. XR/XR lumbar spine 6V w bending IMPRESSION: 1. Mild degenerative facet arthropathy. Otherwise unremarkable lumbar spine. 2. Minimal degenerative changes of the sacroiliac joints. 3. Abdominal aortic aneurysm 4.[address] diameter[address] abdomen and pelvis with IV contrast for further evaluation. Electronically authenticated by: JEN FINCH Date: 07/12/2024 06:46
--- OUTSIDE RECORDS SUMMARY | 2024-07-10 14:12 | XMS_ITS | CCD ---
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 Name Role Phone Mark Browning Primary Care Provider Jannet Gonzalez MD Unavailable Ursula Love Primary Care Physician [phone] URSULA LOVE Admitting Unavailable URSULA LOVE Attending Unavailable URSULA LOVE Primary Care Unavailable URSULA LOVE Consulting Unavailable BAO, DR MOSCOSO Admitting Unavailable BAO, DR MOSCOSO Attending Unavailable URSULA LOVE Primary Care Unavailable [place], DR JANNET Parry Consulting Unavailable MOUK[place]USSEIN, DR MOSCOSO Consulting Unavailable URSULA LOVE Consulting Unavailable Ursula Love Primary Care Physician [phone] PARISA HERRON Attending Unavailable BLANKA GORE Attending Unavailable Mark Browning DO Primary Care Provider Jannet Gonzalez MD Unavailable Jose Luis THOMAS Attending Unavailable Jose Luis THOMAS Attending Unavailable Ursula Love Attending Unavailable Ana Spencer Attending Unavailable Ana Spencer Attending Unavailable Ursula Love Referring Unavailable Ursula Love Attending Unavailable Ursula Love Admitting Unavailable Ursula Love Referring Unavailable Ursula Love Attending Unavailable Ursula Love Admitting Unavailable Ana Spencer Attending Unavailable Ana Spencer Admitting Unavailable Juan Antonio, CARRIER DRIVERCarlo Richard Attending Unavailable Ursula Love Attending Unavailable Shelley Bruce Attending Unavailable Ursula Love ENelly Referring Unavailable Bharath Melton Attending Unavailable Geronimo Bharath Admitting Unavailable Ursula Love Attending Unavailable Ursula Love Admitting Unavailable Ursula Love Attending Unavailable Ursula Love Admitting Unavailable Ross, Ursula E. Attending Unavailable Ursula Love E. Attending Unavailable RossUrsula E. Attending Unavailable RossUrsula E. Attending Unavailable RossUrsula E. Attending Unavailable Juan Antonio, CARRIER DRIVER Karen L Attending Unavailable RossUrsula E. Attending Unavailable Ross, Ursula E. Admitting Unavailable Juan Antonio, CARRIER DRIVER Karen L Attending Unavailable Juan Antonio, CARRIER DRIVER Karen L Admitting Unavailable Demboske, Ana Rivas Attending Unavailable Ursula Love E. Referring Unavailable Demboske, Ana Rivas Attending Unavailable Demboske, Ana Rivas Attending Unavailable Ursula Love E. Admitting Unavailable Ursula Love E. Referring Unavailable NILL, Jose Luis R Attending Unavailable Ursula Love E. Attending Unavailable Ursula Love Attending Unavailable Ursula Love. Attending Unavailable Demboske, Ana Rivas Attending Unavailable Demboske, Ana Rivas Attending Unavailable Demboske, Ana Rivas Attending Unavailable Demboske, Ana Rivas Attending Unavailable Demboske, Ana Rivas Admitting Unavailable Demboske, Ana Rivas Attending Unavailable Allergies Allergy Classification Reported Allergen(s) Allergy Type Date of Onset Reaction(s) Facility (20 sources) Penicillins; 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: [penicillins] Propensity to adverse reactions to drug [facility] (1 source) Penicillins Drug allergy (disorder) [facility] (1 source) Penicillins Propensity to adverse reactions to drug 4 [facility] (2 sources) No Known Medication Allergies; 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: [No Known Medication Allergies] Propensity to adverse reactions (disorder) [facility] Repository Medications Current Medications Medication Drug Class(es) Dates Sig (Normalized) Sig (Original) amLODIPine 5 mg oral tablet (20 sources) Dihydropyridine Calcium Channel Josh Start: 04-01-2022 take 1 mg by mouth once daily amLODIPine 5 mg Tab mg tab(s), Oral, Daily, Refills(s) 0 Start Date: 04/01/22 Status: Ordered Comment on above: amlodipine 5 mg tabl et TAKE ONE TABLET BY MOUTH DAILY apixaban 5 mg oral tablet (13 sources) Factor Xa Inhibitor Start: 12-18-2023 take 5 mg by mouth twice daily Eliquis 5 mg, Oral, BID, Refills(s) 0 Start Date: 12/18/23 Status: Ordered aspirin 81 mg oral tablet (20 sources) Platelet Aggregation Inhibitor, Nonsteroidal Anti-inflammatory Drug Start: 08-29-2014 take 81 mg by mouth once daily aspirin 81 mg, Oral, Daily, Refills(s) 0 Start Date: 08/29/14 Status: Ordered Start: 08-29-2014 take 325 mg by mouth once sonya y aspirin 325 mg, Oral, Daily, Refills(s) 0 Start Date: 08/29/14 Status: Ordered atorvastatin 80 mg oral tablet (20 sources) HMG-CoA Reductase Inhibitor Start: 12-19-2022 take 1 tablet by mouth once daily atorvastatin 80 mg Tab 80 mg = 1 tab(s), Oral, Daily, # 90 tab(s), Refills(s) 0 Start Date: 12/19/22 Status: Ordered Comment on above: atorvastatin 80 mg t ablet baclofen 5 mg oral tablet (1 source) gamma-Aminobutyric Acid-ergic Agonist Start: 04-01-2022 End: 05-01-2022 take 1 tablet by mouth three times daily baclofen 5 mg oral tablet 5 mg = 1 tab(s), Oral, TID, X 30 day(s), # 90 tab(s), Refills(s) 0, Pharmacy: [facility]/pharmacy #[id number] Start Date: 04/01/22 Stop Date: 05/01/22 Status: Ordered Centrum Minis Men 50+ oral tablet (11 sources) Start: 12-28-2023 take 1 tablet by mouth once daily Centrum Minis Men 50+ oral tablet 1 tab(s), Oral, Daily, Refill(s) 0 Start Date: 12/28/23 Status: Ordered cloNIDine hydrochloride 0.1 mg oral tablet (20 sources) Central alpha-2 Adrenergic Agonist Start: 04-01-2022 take 1 mg by mouth twice daily cloNIDine 0.1 mg tab mg tab(s), Oral, BID Start Date: 04/01/22 Status: Ordered Comment on above: clonidine HCl 0.1 mg tablet TAKE ONE TABLET BY MOUTH TWICE A DAY dilTIAZem hydrochloride 30 mg oral tablet (20 sources) Calcium Channel Josh Start: 02-03-2022 diltiazem 30 mg Tab See Instructions, take 1-2 orally as needed, Refills(s) 0 Start Date: 9/18/23 Status: Ordered Comment on above: Take 1 tablet by sendy th as needed (1-2 tablets every 6 hours as needed for rapid heart beat (AFIB)). ezetimibe 10 mg oral tablet (4 sources) Dietary Cholesterol Absorption Inhibitor Start: 03-22-2024 take 10 mg by mouth once daily Zetia 10 mg, Oral, Daily, Refills(s) 0 Start Date: 03/22/24 Status: Ordered Glucometer One Touch Ultra 2 (1 source) Start: 2024 Glucometer One Touch Ultra 2 Glucometer One Touch Ultra 2, See Instructions, EA, One Touch Ultra 2 Glucometer, to check BS once daily E11.9, Supply Start Date: 06/11/24 Status: Ordered 24 hr isosorbide mononitrate 120 mg extended release oral tablet (20 sources) Nitrate Vasodilator Start: 12-19-2022 take 1 tablet by mouth once daily in the morning isosorbide mononitrate 120 mg ER Tab 120 mg = 1 tab(s), Oral, qAM, # 90 tab(s), Refills(s) 0 Start Date: 12/19/22 Status: Ordered Comment on above: 120 mg once daily. Isosorbide Dinitrate (1 source) Nitrate Vasodilator Start: 04-01-2022 isosorbide dinitrate Oral, Refills(s) 0 Start Date: 04/01/22 Status: Ordered lisinopril 20 mg oral tablet (20 sources) Angiotensin Converting Enzyme Inhibitor Start: 03-26-2024 lisinopril 20 mg Tab See Instructions, TAKE 1 TABLET DAILY, # 90 tab(s), Refills(s) 1, Pharmacy: [facility]/pharmacy #[id number], 179, cm, 03/26/24 10:53:00 EDT, Height/Length Dosing, 86, kg, 03/26/24 10:53:00 EDT, Weight Dosing Start Date: 03/26/24 Status: Ordered Start: 07-06-2023 lisinopril 20 mg Tab See Instructions, TAKE 1 TABLET DAILY, # 90 tab(s), Refills(s) 1, Pharmacy: [facility], 178, cm, 12/18/23 13:19:00 EST, Height/Length Dosing, 89.1, kg, 12/18/23 13:19:00 EST, Weight Dosing Start Date: 12/19/23 Status: Ordered Start: 04-01-2022 take 1 tablet by sendy th once daily lisinopril 10 mg Tab 10 mg = 1 tab(s), Oral, Daily, # 90 tab(s), Refills(s) 0 Start Date: 04/01/22 Status: Ordered Start: 04-01-2022 take 1 tablet by sendy th once daily lisinopril 20 mg Tab 20 mg = 1 tab(s), Oral, Daily, # 90 tab(s), Refills(s) 1, Pharmacy: [facility], 178, cm, 12/19/22 9:57:00 EST, Height/Length Dosing, 90.4, kg, 12/19/22 9:57:00 EST, Weight Dosing Start Date: 04/25/23 Status: Ordered Comment on above: lisinopril 20 mg tab let TAKE ONE TABLET BY MOUTH ONCE DAILY meloxicam 15 mg oral tablet (1 source) Nonsteroidal Anti-inflammatory Drug Start: 2 take 1 tablet by mouth once daily meloxicam 15 mg oral tablet 15 mg = 1 tab(s), Oral, Daily, # 30 tab(s), Refills(s) 0, Pharmacy: [facility]/pharmacy #[id number] Start Date: 04/01/22 Status: Ordered metFORMIN hydrochloride 500 mg oral tablet (20 sources) Biguanide Start: 4 metformin 500 mg Tab See Instructions, TAKE 2 TABLETS TWICE A DAY, # 360 tab(s), Refills(s) 1, Pharmacy: [facility], 179, cm, 03/26/24 10:53:00 EDT, Height/Length Dosing, 86, kg, 03/26/24 10:53:00 EDT, Weight Dosing Start Date: 06/19/24 Status: Ordered Start: 07-06-2023 metformin 500 mg Tab See Instructions, TAKE 2 TABLETS TWICE A DAY, # 360 tab(s), Refills(s) 1, Pharmacy: [facility], 178, cm, 12/18/23 13:19:00 EST, Height/Length Dosing, 89.1, kg, 12/18/23 13:19:00 EST, Weight Dosing Start Date: 12/19/23 Status: Ordered Start: 04-25-2023 take 2 tablets by mo [facility] twice daily metformin 500 mg Tab 1,000 mg = 2 tab(s), Oral, BID, TAKE TWO TABLETS BY MOUTH TWICE A DAY, # 360 tab(s), Refills(s) 1, Pharmacy: [facility], 178, cm, 12/19/22 9:57:00 EST, Height/Length Dosing, 90.4, kg, 12/19/22 9:57:00 EST, Weight Dosing Start Date: 04/25/23 Status: Ordered Start: 04-01-2022 End: 09-28-2022 take 2 tablets by mouth twice daily metformin 500 mg ER Tab 1,000 mg = 2 tab(s), Oral, BID, X 90 day(s), # 360 tab(s), Refills(s) 1, [facility] Start Date: 04/01/22 Stop Date: 09/28/22 Status: Ordered Comment on above: metformin 500 mg tab [...] Ordered Start: 08-29-2014 take 1 tablet by [facility] once daily Toprol XL 100 mg Tab-ER 100 mg = 1 tab(s), Oral, Daily, Refills(s) 0 Start Date: 08/29/14 Status: Ordered take 1 tablet by [facility] once daily metoprolol succinate ER (TOPROL XL) 200 mg 24 hr tablet Take 200 mg by mouth once daily. Active Comment on above: Take 200 mg by mouth once daily. omeprazole 20 mg delayed release oral capsule (20 sources) Proton Pump Inhibitor Start: 05-06-2024 omeprazole 20 mg Cap-DR See Instructions, TAKE 1 CAPSULE DAILY, # 90 cap(s), Refills(s) 1, Pharmacy: [facility], 179, cm, 03/26/24 10:53:00 EDT, Height/Length Dosing, 86, kg, 03/26/24 10:53:00 EDT, Weight Dosing Start Date: 05/06/24 Status: Ordered Start: 11-20-2023 take 1 capsule by mo [facility] once daily omeprazole 20 mg Cap-DR 20 mg = 1 cap(s), Oral, Daily, # 90 cap(s), Refills(s) 1, Pharmacy: [facility], 178, cm, 08/29/23 14:28:00 EST, Height/Length Dosing, 90.8, kg, 08/29/23 14:28:00 EST, Weight Dosing Start Date: 11/20/23 Status: Ordered Start: 07-03-2023 take 1 capsule by [facility] once daily omeprazole 20 mg Cap-DR 20 mg = 1 cap(s), Oral, Daily, # 90 cap(s), Refills(s) 1, [facility]acy: [facility], 178, cm, 07/03/23 7:24:00 EDT, Height/Length Dosing, 90, kg, 07/03/23 7:24:00 EDT, Weight Dosing Start Date: 07/03/23 Status: Ordered Start: 08-29-2014 End: 09-28-2022 take 1 capsule by mouth once daily omeprazole 20 mg Cap-DR 20 mg = 1 cap(s), Oral, Daily, X 90 day(s), # 90 cap(s), Refills(s) 1, [facility] Start Date: 04/01/22 Stop Date: 09/28/22 Status: Ordered Comment on above: Take 1 capsule by [facility] once daily. ProFe 180 mg oral capsule (8 sources) Start: 12-25-2023 take 1 capsule by mouth once daily ProFe 180 mg oral capsule 180 mg = 1 cap(s), Oral, Daily, # 100 cap(s), Refills(s) 0, Pharmacy: [facility]/pharmacy #[id number], 178, cm, 12/18/23 13:19:00 EST, Height/Length Dosing, 89.1, kg, 12/18/23 13:19:00 EST, Weight Dosing Start Date: 12/25/23 Status: Ordered 12 hr ranolazine 500 mg extended release oral tablet (19 sources) Anti-anginal Start: 12-19-2022 take 2 tablets by mouth twice daily ranolazine 500 mg oral ER Tab 1,000 mg = 2 tab(s), Oral, BID, # 120 tab(s), Refills(s) 0 Start Date: 12/19/22 Status: Ordered rivaroxaban 20 mg oral tablet (9 sources) Factor Xa Inhibitor Start: 07-03-2023 take 1 tablet by mouth once daily in the evening Xarelto 20 mg oral tablet 20 mg = 1 tab(s), Oral, qPM, Refills(s) 0 Start Date: 07/03/23 Status: Ordered Start: 01-21-2019 End: 09-28-2022 Xarelto 20 mg oral tablet 20 mg, Oral, Daily, DVT/PE Treatment and CrCl over 30 ml/min: (start AFTER 15 mg dosing x 21 days), X 180 day(s), # 180 tab(s), Refills(s) 1 Start Date: 04/01/22 Stop Date: 09/28/22 Status: Ordered Comment on above: Take 1 tablet by [...] Daily, # 10 cap(s), Refills(s) 0, Pharmacy: [facility]/pharmacy #[id number], 178, cm, 07/19/23 11:20:00 EDT, Height/Length Dosing, 89.2, kg, 07/19/23 11:20:00 EDT, Weight Dosing Start Date: 07/19/23 Status: Ordered Problems Active Problems Problem Classification Problem Date Documented Da te Episodic/Chronic Abdominal pain (4 sources) Left flank pain 07-19-2023 Episodic Aortic; peripheral; and visceral artery aneurysms (20 sources) Aortic aneurysm; 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: [Abdominal aortic aneurysm] 08-08-2023 Chronic Calculus of urinary tract (20 sources) Kidney stone; 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: [History of calculus of kidney] Onset: 3 07-19-2023 Episodic Cardiac dysrhythmias (20 sources) Persistent atrial fibrillation; 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: [Other persistent atrial fibrillation] Onset: 2 Chronic Coronary atherosclerosis and other heart disease (20 sources) Coronary arteriosclerosis; 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: [Atherosclerotic heart disease of [place] coronary artery without angina pectoris] Onset: 4 10-02-2014 Chronic Deficiency and other anemia (11 sources) Microcytic anemia 12-28-2023 Episodic Deficiency and other anemia (2 sources) Iron deficiency anemia; 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: [Iron deficiency anemia, unspecified] Onset: 4 Episodic Diabetes mellitus without complication (20 sources) Type 2 diabetes mellitus without complications; 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: [Type 2 diabetes mellitus without complication] Onset: 3 Chronic Disorders of lipid metabolism (20 sources) Dyslipidemia; 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: [Hyperlipidemia, unspecified] Onset: 3 08-22-2014 Chronic Esophageal disorders (19 sources) Gastroesophageal reflux disease without esophagitis 07-03-2023 Chronic Essential hypertension (20 sources) Hypertensive disorder; 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: [Essential (primary) hypertension] Onset: 2 08-22-2014 Chronic Genitourinary symptoms and ill-defined conditions (15 sources) Blood in urine; 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: [Dysuria] Onset: 3 07-19-2023 Episodic Hemorrhoids (17 sources) Bleeding external hemorrhoids 08-02-2023 Episodic Hyperplasia of prostate (16 sources) Benign prostatic hypertrophy without outflow obstruction; 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: [Benign prostatic hyperplasia without lower urinary tract symptoms] Onset: 3 Chronic Nutritional deficiencies (1 source) Vitamin B deficiency; 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: [Deficiency of other specified B group vitamins] Onset: 4 Episodic Other and unspecified benign neoplasm (1 source) Benign neoplasm of rectum; 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: [Benign neoplasm of rectum] Onset: 3 Episodic Other and unspecified benign neoplasm (14 sources) Adenomatous polyp of rectum 10-04-2023 Episodic [...] unspecified] Onset: 4 Chronic Other gastrointestinal disorders (11 sources) Splenomegaly 12-28-2023 Episodic Other non-traumatic joint disorders (4 sources) Hip pain 03-26-2024 Episodic Other nutritional; endocrine; and metabolic disorders (20 sources) Metabolic syndrome X; 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: [Metabolic syndrome] 10-11-2021 Chronic Other nutritional; endocrine; and metabolic disorders (2 sources) Obesity 09-01-2014 Chronic Other nutritional; endocrine; and metabolic disorders (19 sources) Overweight in adulthood with body mass index of 25 or more but less than 30 12-19-2022 Episodic Other nutritional; endocrine; and metabolic disorders (14 sources) Overweight 08-29-2023 Episodic Residual codes; unclassified (16 sources) Family history of malignant neoplasm of kidney; 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: [Family history of malignant neoplasm of kidney] Onset: Episodic Screening and history of mental health and substance abuse codes (16 sources) H/O: Disorder; 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: [Personal history of nicotine dependence] Onset: 3 Episodic Unclassified (19 sources) Non-smoker 12-19-2022 Unclassified (20 sources) Patient encounter status 07-03-2023 Unclassified (1 source) Infrarenal abdominal aortic aneurysm, without rupture; 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: [Infrarenal abdominal aortic aneurysm, without rupture] Onset: 4 Unclassified (1 source) Aneurysm of the ascending aorta, without rupture; 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: [Aneurysm of the ascending aorta, without rupture] Onset: 4 Past or Other Problems Problem Classification Problem Date Documented Date Episodic/Chronic Other aftercare (2 sources) Long-term current use of anticoagulant; 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: [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] Onset: 11-28-2017 11-28-2017 Episodic Other screening for suspected conditions (not mental disorders or infectious disease) (3 sources) Cardiovascular stress test abnormal; 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: [Abnormal result of other cardiovascular function study] Onset: 08-25-2014 08-25-2014 Episodic Unclassified (1 source) Infrarenal abdominal aortic aneurysm, without rupture; 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: [Infrarenal abdominal aortic aneurysm, without rupture] Onset: 12-29-2023 Unclassified (1 source) Aneurysm of the ascending aorta, without rupture; 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: [Aneurysm of the ascending aorta, without rupture] Onset: 12-29-2023 Results Test Name Value Interpretation Reference Range Margie starr [facility] 06-28-20 [facility] Case Information Case Priority: None Programs: -- Referral Source: Spray Applicator Referral Reason: Disease management Case Type: Chronic Care Management Risk Score: -- Case Status: Active (December 28, 2023) Date Assigned: December 19, 2023 Assigned By: Christian Hernandez Date Enrolled: December 28, 2023 Assigned Primary Personnel: Christian Hernandez Assigned Secondary Personnel: -- Case Physician: Ursula Love MD Ongoing AAA (abdominal aortic aneurysm) Aortic aneurysm BMI 28.0-28.9,adult BPH (benign prostatic hyperplasia) CAD in [place] artery Controlled type 2 diabetes mellitus without [...] See Instructions Eliquis, 5 mg, Oral, BID Glucometer One Touch Ultra 2, See Instructions isosorbide mononitrate 120 mg ER Tab, 120 mg= 1 tab(s), Oral, qAM Lancets, See Instructions Lancets, See Instructions lisinopril 20 mg Tab, See Instructions, 1 refills metformin 500 mg Tab, See Instructions, 1 refills omeprazole 20 mg Cap-DR, See Instructions One Touch Ultra 2 Test Strips, See Instructions One Touch Ultra 2 Test Strips, See Instructions ranolazine 500 mg oral ER Tab, 1000 mg= 2 tab(s), Oral, BID Toprol XL 100 mg Tab-ER, 200 mg= 2 tab(s), Oral, Daily Zetia, 10 mg, Oral, Daily Allergies penicillins [...] age 53 Years. Household tobacco concerns: No., 03/26/2024 Family History Acute myocardial infarction: Brother. Heart failure: Mother. Screenings and Assessments 12/28/23 08:18:00 Result Name Value Comment [facility] Program Enrollment Verbally agreed to receive [facility] services CCM Written Consent Written consent in progress CCM Verbal Consent By Self 12/28/23 07:00:00 Result Name Value Comment HIPPA Verified Type of Contact In person at home CM Preferred Spoken Language Macedonian CM Preferred Written Language Macedonian Preferred Communication Mode Verbal Ability to Read/Write Able to read, Able to write Preferred Salutation MrNelly Preferred Method of Contact Cell Cell Phone [phone] Best Time to Visit or Contact 7-10 am Best Day to Visit or Contact No preference Appointment Reminders Patient portal, Other secured messaging Preferred Way to Send PHI Patient portal Preferred Mailing Address [address] [place] [id number] Learning Style Pref Patient Verbal explanation Learning [...] Shares bed Support System Spouse/Significant other Primary Director Work of Home Medication Self Current DME at Home No Currently Receiving Skilled Services No Skilled Service Need (more content not included)... Normal [facility] 06-11-20 24 [facility] Case Information Case Priority: None Programs: -- Referral Source: Spray Applicator Referral Reason: Disease management Case Type: Chronic Care Management Risk Score: -- Case Status: Active (December 28, 2023) Date Assigned: December 19, 2023 Assigned By: Christian Hernandez Date Enrolled: December 28, 2023 Assigned Primary Personnel: Christian Hernandez Assigned Secondary Personnel: -- Case Physician: Ursula Love MD Ongoing AAA (abdominal aortic aneurysm) Aortic aneurysm BMI 28.0-28.9,adult BPH (benign prostatic hyperplasia) CAD in [place] artery Controlled type 2 diabetes mellitus without [...] See Instructions Eliquis, 5 mg, Oral, BID Glucometer One Touch Ultra 2, See Instructions isosorbide mononitrate 120 mg ER Tab, 120 mg= 1 tab(s), Oral, qAM Lancets, See Instructions lisinopril 20 mg Tab, See Instructions, 1 refills metformin 500 mg Tab, See Instructions omeprazole 20 mg Cap-DR, See Instructions One Touch Ultra 2 Test Strips, See Instructions ranolazine 500 mg oral ER Tab, 1000 mg= 2 tab(s), Oral, BID Toprol XL 100 mg Tab-ER, 200 mg= 2 tab(s), Oral, Daily Zetia, 10 mg, Oral, Daily Allergies penicillins (Hives) Social History Alcohol Current, Beer, 3-5 times per week, Alcohol use interferes with work or home: No. Drinks more than intended: No. Others hurt by drinking: No. Ready to change: No. Household alcohol concerns: No., 12/18/2023 Employment/School Employed, Work/School description: [employer]. Highest education level: High school. 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 equipment: No., 09/02/2014 Substance Abuse - No Risk, 08/29/2014 Tobacco - No Risk, 08/29/2014 Former smoker, quit more than 30 days ago Tobacco Use:. Never Smokeless Tobacco Use:. Cigarettes, 1 per day. Started age 16.0 Years. Stopped age 53 Years. Household tobacco concerns: No., 03/26/2024 Family History Acute myocardial infarction: Brother. Heart failure: Mother. Screenings and Assessments 12/28/23 08:18:00 Result Name Value Comment [facility] Program Enrollment Verbally agreed to receive [facility] services CCM Written Consent Written consent in progress CCM Verbal Consent By Self 12/28/23 07:00:00 Result Name Value Comment HIPPA Verified Type of Contact In person at home CM Preferred Spoken Language Macedonian CM Preferred Written Language Macedonian Preferred Communication Mode Verbal Ability to Read/Write Able to read, Able to write Preferred Salutation MrNelly Preferred Method of Contact Cell Cell Phone [phone] Best Time to Visit or Contact 7-10 am Best Day to Visit or Contact No preference Appointment Reminders Patient portal, Other secured messaging Preferred Way to Send PHI Patient portal Preferred Mailing Address [address] [place] [address], [facility] Learning Style Pref Patient Verbal explanation Learning [...] Shares bed Support System Spouse/Significant other Primary Director Work of Home Medication Self Current DME at Home No Currently Receiving Skilled Services No Skilled Service Needs Anticipated No Barriers to Care None Home Barriers None (more content not included)... Normal [facility] 36on 06-04-2024 36 Regarding carotid duplex performed on 05/29/2024: MERVAT Kendrick MA Let them know less than 49% stenosis of both carotids- really very good- Continue all meds and we will see them next time Probably a repeat carotid in 1-3 years- unless symptoms Patient made aware via email. [facility] 04-25-20 [facility] Case Information Case Priority: None Programs: -- Referral Source: Spray Applicator Referral Reason: Disease management Case Type: Chronic Care Management Risk Score: -- Case Status: Active (December 28, 2023) Date Assigned: December 19, 2023 Assigned By: Christian Hernandez Date Enrolled: December 28, 2023 Assigned Primary Personnel: Christian Hernandez Assigned Secondary Personnel: -- Case Physician: Km NIELSON, Ursula Leos Ongoing AAA (abdominal aortic aneurysm) Aortic aneurysm BMI 28.0-28.9,adult BPH (benign prostatic hyperplasia) CAD in [place] artery Controlled type 2 diabetes mellitus without [...] Tab-ER, 200 mg= 2 tab(s), Oral, Daily Zetia, 10 mg, Oral, Daily Allergies penicillins (Hives) Social History Alcohol Current, Beer, 3-5 times per week, Alcohol use interferes with work or home: No. Drinks more than intended: No. Others hurt by drinking: No. Ready to change: No. Household alcohol concerns: No., 12/18/2023 Employment/School Employed, Work/School description: [employer]. Highest education level: High school. 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 equipment: No., 09/02/2014 Substance Abuse - No Risk, 08/29/2014 Tobacco - No Risk, 08/29/2014 Former smoker, quit more than 30 days ago Tobacco Use:. Never Smokeless Tobacco Use:. Cigarettes, 1 per day. Started age 16.0 Years. Stopped age 53 Years. Household tobacco concerns: No., 03/26/2024 Family History Acute myocardial infarction: Brother. Heart failure: Mother. Screenings and Assessments 12/28/23 08:18:00 Result Name Value Comment [facility] Program Enrollment Verbally agreed to receive [facility] services CCM Written Consent Written consent in progress CCM Verbal Consent By Self 12/28/23 07:00:00 Result Name Value Comment HIPPA Verified Type of Contact In person at home CM Preferred Spoken Language Macedonian CM Preferred Written Language Macedonian Preferred Communication Mode Verbal Ability to Read/Write Able to read, Able to write Preferred Salutation Mr. Preferred Method of Contact Cell Cell Phone [phone] Best Time to Visit or Contact 7-10 am Best Day to Visit or Contact No preference Appointment Reminders Patient portal, Other secured messaging Preferred Way to Send PHI Patient portal Preferred Mailing Address [address] [place] [address] Learning Style Pref Patient Verbal explanation Learning [...] Shares bed Support System Spouse/Significant other Primary Director Work of Home Medication Self Current DME at Home No Currently Receiving Skilled Services No Skilled Service Needs Anticipated No Barriers to Care None Home Barriers None Employment Status Retired Financial Issues None Sources of Income Socia (more content not included)... Normal [facility] Ambulatory Visit Summaryon 0 03-26-2024 Ambulatory Visit [...] Oncology Monday 8:00 AM EST With: Where: [facility] Kofi Normal [facility] Office/Clini c Noteon 03-26-2024 [...] Daily, # 100 cap(s), Refills(s) 0, Pharmacy: [facility]/pharmacy #[id number], 178, cm, 12/18/23 13:19:00 EST, Height/Length Dosing, 89.1, kg, 12/18/23 13:19:00 EST, Weight Dosing lisinopril, See Instructions, TAKE 1 TABLET DAILY, # 90 tab(s), Refills(s) 1, Pharmacy: [facility]/pharmacy #[id number], 179, cm, 03/26/24 10:53:00 EDT, Height/Length Dosing, 86, kg, 03/26/24 10:53:00 EDT, Weight Dosing Follow-up No qualifying data available Problem List/Past Medical History Ongoing AAA (abdominal aortic aneurysm) Aortic aneurysm BMI 28.0-28.9,adult BPH (benign prostatic hyperplasia) CAD in [place] artery Controlled type 2 diabetes mellitus without [...] Others hurt by (more content not included)... [facility] Comment on above: Result Comment: Elec tronically Signed By: Km NIELSON, Ursula Porter\.br\Date and Time Signed: 03/26/24 16:51 EDT Physician Referralon 024 Physician Referral [id number] #1.00TIFF [facility] Population Healthon 03-22-20 24 Population Health Case Information Case Priority: None Programs: -- Referral Source: [employer] Referral Reason: Disease management Case Type: Chronic Care Management Risk Score: -- Case Status: Active (December 28, 2023) Date Assigned: December 19, 2023 Assigned By: Christian Hernandez Date Enrolled: December 28, 2023 Assigned Primary Personnel: Christian Hernandez Assigned Secondary Personnel: -- Case Physician: Ursula Love MD Problems Ongoing AAA (abdominal aortic aneurysm) Aortic aneurysm BMI 28.0-28.9,adult BPH (benign prostatic hyperplasia) CAD in [place] artery Controlled type 2 diabetes mellitus without [...] Assessments 12/28/23 08:18:00 Result Name Value Comment [facility] Program Enrollment Verbally agreed to receive [facility] services CCM Written Consent Written consent in progress CCM Verbal Consent By Self 12/28/23 07:00:00 Result Name Value Comment HIPPA Verified Type of Contact In person at home CM Preferred Spoken Language Macedonian CM Preferred Written Language Macedonian Preferred Communication Mode Verbal Ability to Read/Write Able to read, Able to write Preferred Salutation Mr. Preferred Method of Contact Cell Cell Phone [phone] Best Time to Visit or Contact 7-10 am Best Day to Visit or Contact No preference Appointment Reminders Patient portal, Other secured messaging Preferred Way to Send PHI Patient portal Preferred Mailing Address [address] [place] [address], [address] Learning Style Pref Patient Verbal explanation Learning [...] Shares bed Support System Spouse/Significant other Primary Director Work of Home Medication Self Current DME at Home No Currently Receiving Skilled Services No Skilled Service Needs Anticipated No Barriers to Care None Home Barriers None Employment Status Retired Financial Issues None Sources of Income Social Security Pat (more content not included)... Normal [facility] Consent for Treatmenton 02-15 Consent for Treatment [id number] #1.00TIFF Normal [facility] Oncology Progress Noteon Oncology Progress Note [...] a colonoscopy done in Sep 2023 at [facility] after positive Cologuard test. This showed [...] Contact Information Tj NATHAN-PEMA, Ana Rivas, ONC [facility] [address] [place] [address]- [phone] Additional Instructions: cbc, cmp, iron studies in 3mo and 6mo follow-up in 6mo with [employer] Medications amLODIPine 5 mg Tab, Oral, Daily [...] (DoT), 100 (more content not included)... Normal [facility] CBC w/ Auto Diffon 4 Acanthocytes LM Ql (Bld) PRESENT Invalid Interpretation Code [facility] Comment on above: Performed By: #### 2 [id number] #### [facility] [address] [place] [address] Anisocytosis Ql (Bld) PRESENT Invalid Interpretation Code [facility] Comment on above: Performed By: #### 2 785401 #### [facility] [address] [place] [address] Basophils/100 WBC (Bld) 0.8 % Normal 0.0-2.0 [facility] Comment on above: Performed By: #### 2 806710 #### [facility] [address] [place] [address] Basophils/Leukocytes Auto (Bld) [Pure # fraction] 0.0 E9/L Normal 0.0-0.2 [facility] Comment on above: Performed By: #### 2 855064 #### [facility] [address] [place] [address] Eosinophils (Bld) [#/Vol] 0.2 E9/L Normal 0.0-0.5 [facility] Comment on above: Performed By: #### 2 389649 #### [facility] [address] [place] [address] Eosinophils/100 WBC (Bld) 3.7 % Normal 0.0-8.0 [facility] Comment on above: Performed By: #### 2 993358 #### [facility] [address] [place] [address] Erythrocyte distribution width (RBC) [Ratio] 27.1 % High 10.9-14.2 [facility] Comment on above: Performed By: #### 2 270979 #### [facility] [address] [place] [address] Hematocrit (Bld) [Volume fraction] 40.0 % Normal 37.7-49.0 [facility] Comment on above: Performed By: #### 2 290570 #### [facility] [address] [place] [address] Hemoglobin (Bld) [Mass/Vol] 13.4 g/dL Low 13.5-17.5 [facility] Comment on above: Performed By: #### 2 500195 #### [facility] [address] [place] [address] Hypochromia Auto Ql (Bld) PRESENT Invalid Interpretation Code [facility] Comment on above: Performed By: #### 2 450136 #### [facility] [address] [place] [address] Lymphocytes (Bld) [#/Vol] 1.6 E9/L Normal 1.0-4.0 [facility] Comment on above: Performed By: #### 2 397418 #### [facility] [address] [place] [address] Lymphocytes/100 WBC (Bld) 32.5 % Normal 14.0-50.0 [facility] Comment on above: Performed By: #### 2 316942 #### [facility] [address] [place] [address] MCH (RBC) [Entitic mass] 27.3 pg Normal 27.0-34.0 [facility] Comment on above: Performed By: #### 2 654529 #### [facility] [address] [place] [address] MCHC (RBC) [Mass/Vol] 33.6 g/dL Normal 31.4-36.0 [facility] Comment on above: Performed By: #### 2 995024 #### [facility] [address] [place] [address] MCV (RBC) [Entitic vol] 81.4 fL Normal 80.0-100.0 [facility] Comment on above: Performed By: #### 2 491098 #### [facility] [address] [place] [address] Monocytes (Bld) [#/Vol] 0.4 E9/L Normal 0.2-1.0 [facility] Comment on above: Performed By: #### 2 494778 #### [facility] [address] [place] [address] Neutrophils (Bld) [#/Vol] 2.7 E9/L Normal 2.0-7.5 [facility] Comment on above: Performed By: #### 2 595067 #### [facility] [address] [place] [address]98[address] Neutrophils/100 WBC (Bld) 55.1 % Normal 36.0-75.0 [facility] Comment on above: Performed By: #### 2 209777 #### [facility] [address] [place] [address] Ovalocytes LM Ql (Bld) PRESENT Invalid Interpretation Code [facility] Comment on above: Performed By: #### 2 746157 #### [facility] [address] [place] [address] Platelet mean volume (Bld) [Entitic vol] 9.9 fL Normal 6.4-10.8 [facility] Comment on above: Performed By: #### 2 262972 #### [facility] [address] [place] [address] Platelets (Bld) [#/Vol] 116.0 E9/L Low 150.0-500.0 [facility] Comment on above: Performed By: #### 2 281714 #### [facility] [address] [place] [address] RBC (Bld) [#/Vol] 4.9 E12/L Normal 4.3-5.9 [facility] Comment on above: Performed By: #### 2 230826 #### [facility] [address] [place] [address] RBC size Nom (Bld) SEE MORPHOLOGY Invalid Interpretation Code [facility] Comment on above: Performed By: #### 2 406705 #### [facility] [address] [place] [address] WBC corrected for nucl RBC Auto (Bld) [#/Vol] 5.0 E9/L Normal 4.0-11.0 [facility] Comment on above: Performed By: #### 2 140546 #### [facility] [address] [place] [address] CHEMISTRYOrdered By: SYSTEM SYSTEM on 03-12-2024 Albumin [...] 03-12-2024 Albumin [Mass/Vol] 4.3 g/dL Normal 3.3-5.0 [facility] Comment on above: Performed By: #### 2 528353 #### [facility] [address] [place] [address] Albumin/Globulin (S) [Mass conc ratio] 2.3 High 1.1-2.2 [facility] Comment on above: Performed By: #### 2 587342 #### [facility] [address] [place] [address] ALP [Catalytic activity/Vol] 54 Int._Unit/L Normal 21-98 [facility] Comment on above: Performed By: #### 2 298776 #### [facility] [address] [place] [address] ALT No additional P-5'-P [Catalytic activity/Vol] 47 Int._Unit/L High 6-46 [facility] Comment on above: Performed By: #### 2 251149 #### [facility] [address] [place] [address] Anion gap [Moles/Vol] 12 mmol/L Normal 6-16 [facility] Comment on above: Performed By: #### 2 447918 #### [facility] [address] [place] [address] AST [Catalytic activity/Vol] 30 Int._Unit/L Normal 5-43 [facility] Comment on above: Performed By: #### 2 022624 #### [facility] [address] [place] [address] Bilirubin [Mass/Vol] 1.8 mg/dL High 0.0-1.1 [facility] Comment on above: Performed By: #### 2 276910 #### [facility] [address] [place] [address] Calcium [Mass/Vol] 9.1 mg/dL Normal 8.9-11.1 [facility] Comment on above: Performed By: #### 2 544468 #### [facility] [address] [place] [address] Chloride [Moles/Vol] 102 mmol/L Normal 101-111 [facility] Comment on above: Performed By: #### 2 580194 #### [facility] [address] [place] [address] CO2 [Moles/Vol] 26 mmol/L Normal 21-31 [facility] Comment on above: Performed By: #### 2 538812 #### [facility] [address] [place] [address] Creatinine [Mass/Vol] 0.8 mg/dL Normal 0.5-1.3 [facility] Comment on above: Performed By: #### 2 838224 #### [facility] [address] [place] [address] Globulin (S) [Mass/Vol] 1.9 g/dL Normal 1.4-4.0 [facility] Comment on above: Performed By: #### 2 847459 #### [facility] [address] [place] [address] Glucose [Mass/Vol] 153 mg/dL Normal 55-199 [facility] Comment on above: Performed By: #### 2 705171 #### [facility] [address] [place] [address] Potassium [Moles/Vol] 4.7 mmol/L Normal 3.5-5.3 [facility] Comment on above: Performed By: #### 2 868553 #### [facility] [address] [place] [address] Protein [Mass/Vol] 6.2 g/dL Normal 6.0-7.8 [facility] Comment on above: Performed By: #### 2 919533 #### [facility] [address] [place] [address] Sodium [Moles/Vol] 135 mmol/L Normal 135-145 [facility] Comment on above: Performed By: #### 2 291269 #### [facility] [address] [place] [address] Urea nitrogen [Mass/Vol] 9 mg/dL Normal 5-21 [facility] Comment on above: Performed By: #### 2 097835 #### [facility] [address] [place] [address] Urea nitrogen/Creatinine [Mass ratio] 11 No Units Normal 10-20 [facility] Comment on above: Performed By: #### 2 724251 #### [facility] [address] [place] [address] Consent for Treatmenton 02-14 Consent for Treatment [id number] #1.00TIFF Normal [facility] Ferritinon 03-12-2024 Ferritin [Mass/Vol] 179 ng/mL Normal 24-336 [facility] Comment on above: Performed By: #### 2 868267 #### [facility] [address] [place] [address] HEMATOLOGYOrdered By: SYSTEM SYSTEM on 03-12-2024 Acanthocytes [...] 03-12-2024 Iron [Mass/Vol] 117 microgram/dL Normal 35-153 [facility] Comment on above: Performed By: #### 2 766474 #### [facility] [address] [place] [address] Iron Saturationon 03-12-2024 Iron binding capacity [Mass/Vol] 326 microgram/dL Normal 250-400 [facility] Comment on above: Performed By: #### 2 439123 #### [facility] [address] [place] [address] Iron saturation [Mass fraction] 36 % Normal 20-50 [facility] Comment on above: Performed By: #### 2 776852 #### [facility] [address] [place] [address] Transferrinon 03-12-2024 Transferrin [Mass/Vol] 233 mg/dL Normal 200-370 [facility] Comment on above: Performed By: #### 2 325743 #### [facility] [address] [place] [address] eGFRon 03-12-2024 eGFR 98 mL/min/1.73 m2 Normal >=59 [facility] Comment on above: Order Comment: Order added by Discern Expert. Performed By: #### 1 [id number] #### [facility] [address] [place] [address] Consent for Treatmenton Consent for Treatment [id number] #1.00TIFF Normal [facility] Consent for Treatmenton 01-15 Consent for Treatment [id number] #1.00TIFF Normal [facility] Consent for Treatmenton 01-14 Consent for Treatment [id number] #1.00TIFF Normal [facility] Consenton 01-31-2024 Consent [id number]#1.00TIFF Normal [facility] Outside Diabetes Eye Examon 01-31-2024 Outside Diabetes Eye Exam [id number] #1.00TIFF Selene Hou [facility] 01-26-20 [facility] [place] Case Information Case Priority: None Programs: -- Referral Source: [employer] Referral Reason: Disease management Case Type: Chronic Care Management Risk Score: -- Case Status: Active (December 28, 2023) Date Assigned: December 19, 2023 Assigned By: Christian Hernandez Date Enrolled: December 28, 2023 Assigned Primary Personnel: Christian Hernandez Assigned Secondary Personnel: -- Case Physician: Km NIELSON, Ursula Leos Ongoing AAA (abdominal aortic aneurysm) Aortic aneurysm BMI 28.0-28.9,adult BPH (benign prostatic hyperplasia) CAD in [place] artery Controlled type 2 diabetes mellitus without [...] No., 12/18/2023 Employment/School Employed, Work/School description: [employer]. Highest education level: High school. 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 Preferred Method of Contact Cell Cell Phone [phone] Best Time to Visit or Contact 7-10 am Best Day to Visit or Contact No preference Appointment Reminders Patient portal, Other secured messaging Preferred Way to Send PHI Patient portal Preferred Mailing Address [address] [place] [address], [address] Learning Style Pref Patient Verbal explanation Learning [...] Shares bed Support System Spouse/Significant other Primary Director Work of Home Medication Self Current DME at Home No Currently Receiving Skilled Services No Skilled Service Needs Anticipated No Barriers to Care None Home Barriers None Employment Status Retired Financial Issues None Sources of Income Social Security Pat (more content not included)... Normal [facility] Consent for Treatmenton 01-14 Consent for Treatment [id number] #1.00TIFF Selene Hou [facility] Oncology Progress Noteon Oncology Progress Note [...] his nasa (more content not included)... Normal [facility] Free K+L Lt Chains,Qn,Son Immunoglobulin light chains.kappa.free (S) [Mass/Vol] 19.0 mg/L Invalid Interpretation Code 3.3-19.4 [facility] Comment on above: Performed By: #### 2 [id number], 4961459, 3570049, 8281117, 7702579, 6749219, 3767463, 7670562, 69370165 ####[facility] [address] [place] [address] Immunoglobulin light chains.kappa.free/Imm unoglobulin light chains.lambda.free (S) [Mass ratio] 1.62 Invalid Interpretation Code 0.26-1.65 [facility] Comment on above: Result Comment: [facility]f [facility]med at: [facility] [address] [place], [place] [id number] PhD Nicole Fang Performed By: #### 2 22219197, 8352750, 4600903, 3540121, 3980641, 7890273, 8298267, 5186307, 23646461 ####[facility] [address] [place] [address] Immunoglobulin light chains.lambda.free [Mass/Vol] 11.7 mg/L Invalid Interpretation Code 5.7-26.3 [facility] Comment on above: Performed By: #### 2 51707315, 2552603, 1971644, 3132510, 6932669, 4789221, 8604858, 6422863, 48400864 ####[address] [place] [address] Immunofixation Serumon 01-16 IgA [Mass/Vol] 87 mg/dL Invalid Interpretation Code 61-437 [facility] Comment on above: Performed By: #### 2 45470342, 5440573, 8095348, 8460380, 8924262, 6340261, 2441438, 1907719, 87304844 ####[address] [place] [address] IgG [Mass/Vol] 406 mg/dL Low 603-1613 [facility] Comment on above: Performed By: #### 2 83361454, 3733938, 5550619, 0617104, 1945407, 5024427, 2935546, 2712638, 65946513 ####[facility] [address] [place] [address] IgM [Mass/Vol] 136 mg/dL Invalid Interpretation Code 20-172 [facility] Comment on above: Result Comment: Perf ormed at: [facility] [address] [place] [address] [id number] PhD Nicole Fang Performed By: #### 2 47817858, 9378698, 0386643, 0894376, 0430264, 5029216, 7865389, 3824136, 66283805 ####[facility] [address] [place] [address] Protein Fractions [Interp] Comment Invalid Interpretation Code [facility] Comment on above: Result Comment: No m onoclonality detected. Performed By: #### 2 01977359, 4748036, 5334565, 7237700, 8965691, 8187030, 0054484, 2412139, 28247793 ####[address] [place] [address] SPEon 01-17-2024 Albumin [Mass/Vol] 3.6 g/dL Invalid Interpretation Code 2.9-4.4 [facility] Comment on above: Performed By: #### 2 38151263, 0539396, 4977192, 7375387, 7131801, 2571269, 1311210, 1659202, 28961020 ####[address] [address] Albumin/Globulin [Mass ratio] 1.8 {ratio} High 0.7-1.7 [facility] Comment on above: Performed By: #### 2 68009289, 7652315, 1108328, 4369756, 0626730, 7756406, 0138899, 7406088, 75123401 ####[address] [address] Alpha 1 globulin Elph [Mass/Vol] 0.2 g/dL Invalid Interpretation Code 0.0-0.4 [facility] Comment on above: Performed By: #### 2 89688458, 0890766, 7134879, 5220970, 9586458, 6795557, 4855518, 1926602, 37691808 ####[address] [place] [address] Alpha 2 globulin Elph [Mass/Vol] 0.6 g/dL Invalid Interpretation Code 0.4-1.0 [facility] Comment on above: Performed By: #### 2 22790601, 7343651, 5764180, 9976565, 2874201, 0818517, 5638640, 9373755, 54713969 ####[facility] [address] [place] [address] Beta globulin Elph [Mass/Vol] 0.8 g/dL Invalid Interpretation Code 0.7-1.3 [facility] Comment on above: Performed By: #### 2 47199388, 1369001, 7716032, 6615935, 2820758, 5296424, 7884689, 6164350, 46042252 ####[facility] [address] [place] [address] Gamma globulin Elph [Mass/Vol] 0.4 g/dL Invalid Interpretation Code 0.4-1.8 [facility] Comment on above: Performed By: #### 2 23902530, 4452216, 9930199, 5074507, 7726192, 2527463, 0962028, 8054622, 78282771 ####[address] [place] [address] Globulin (S) [Mass/Vol] 2.0 g/dL Low 2.2-3.9 [facility] Comment on above: Performed By: #### 2 05099091, 1045030, 5674215, 1895397, 1024247, 2734073, 3549490, 0201034, 85577146 ####[facility] [address] [place] [address] Laboratory comment Harman (Report) Comment Invalid Interpretation Code [facility] Comment on above: Result Comment: Prot ein electrophoresis scan will follow via computer, mail, or flight crew ordnanceman delivery. Performed By: #### 2 00724579, 3933991, 7796217, 6019662, 2576737, 0794778, 7848596, 2764926, 39859917 ####[facility] [address] [place] [address] Protein [Mass/Vol] 5.6 g/dL Low 6.0-8.5 [facility] Comment on above: Performed By: #### 2 22882268, 5606605, 0234144, 8573206, 9180541, 5015502, 0012351, 7169582, 10765189 ####[facility] [address] [place] [address] Protein Fractions [Interp] Comment: Invalid Interpretation Code [facility] Comment on above: Result Comment: SPE shows decreased total protein. Performed at: [address] [id number] PhD Nicole Fang Performed By: #### 2 39675150, 9214356, 3333659, 5980803, 2763434, 6731941, 1688485, 1585500, 16716958 ####[facility] [address] [place] [address] Protein.monoclonal Elph [Mass/Vol] Not Observed Invalid Interpretation Code Not Observed [facility] Comment on above: Performed By: #### 2 42372958, 3858454, 4605251, 3198859, 2391308, 7285958, 2199415, 9445784, 41368398 ####[facility] [address] [place] [address] CHEMISTRYOrdered By: SYSTEM SYSTEM on 01-16-2024 Cobalamin [...] for Treatmenton Consent for Treatment [id number] #1.00TIFF Normal [facility] Ferritinon 01-16-2024 Ferritin [Mass/Vol] 8 ng/mL Low 24-336 [facility] Comment on above: Performed By: #### 2 99961672, 1546442, 8683608, 9988768, 3165184, 7761814, 3948553, 9042537, 50384585 ####[facility] [address] [place] [address] Folateon 01-16-2024 Folate [Mass/Vol] 13.0 ng/mL Normal >=6.7 [facility] Comment on above: Performed By: #### 2 24113506, 1701375, 0617115, 8002722, 5451585, 0953931, 2204390, 3473735, 75609898 ####[facility] [address] [place] [address] Ironon 01-16-2024 Iron [Mass/Vol] 36 microgram/dL Normal 35-153 [facility] Comment on above: Performed By: #### 2 26868843, 6610582, 7551656, 5130847, 7496364, 0731863, 1111112, 0604732, 33086905 #### [facility] [address] [place] [address] Iron Saturationon 01-16-2024 Iron binding capacity [Mass/Vol] 473 microgram/dL High 250-400 [facility] Comment on above: Performed By: #### 2 73225474, 7777195, 0293979, 0848916, 5630098, 5609469, 0432452, 1503495, 39400705 #### [facility] [address] [place] [address] Iron saturation [Mass fraction] 8 % Low 20-50 [facility] Comment on above: Performed By: #### 2 19368517, 7880136, 5591892, 7562294, 0030036, 8849216, 3415487, 0574690, 03573171 #### [facility] [address] [place] [address] Transferrinon 01-16-2024 Transferrin [Mass/Vol] 338 mg/dL Normal 200-370 [facility] Comment on above: Performed By: #### 2 19698729, 0282951, 7118178, 1366831, 9280404, 8082488, 4255988, 5710819, 41539007 #### [facility] [address] [place] [address] Vit B12on 01-16-2024 Cobalamin (Vitamin B12) [Mass/Vol] 213 pg/mL Normal 50-1500 [facility] Comment on above: Performed By: #### 2 06276344, 0924024, 4657440, 4041119, 4731053, 1945485, 9291566, 8945007, 04248764 ####[facility] [address] [place] [address] 36on 01-10-2024 36 Message sent from patient to my email: Kg Mesa hope all is well, I forgot to ask if I???m 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 Some things I???ve read are telling me not to?? Marilyn, are you able to advise on this? Thanks. Normal [facility] Physician Referralon 024 Physician Referral [id number] #1.00TIFF Normal [facility] Office Visiton 12-29-2023 Follow-up visit [id number] Marcelle Deutsch 1960 M Date Provider Department Center 12/29/2023 PARISA MUNGUIA [facility] Family History Problem Relation Age of Onset Coronary artery disease Father Atrial fibrillation Father Heart attack Brother Family Status - Relation Status Age at Father Brother Level of Service:58515 MS OFFICE/OUTPATIENT ESTABLISHED MOD MDM 30 MIN Normal [facility] ED Pat Eduon 12-28-2023 ED Pat Edu Cardiovascular Coronary Artery Disease, Male Coronary artery disease (CAD) is a condition in which the arteries that lead to the heart (coronary arteries) become narrow or blocked. The narrowing or blockage can lead to decreased blood flow to the heart. Prolonged reduced blood flow can cause a heart attack (myocardial infarction, or GA). This condition may also be called coronary [...] these instructions at home: Medicines ? Take maci-hmj-bjdwglr and prescription medicines only as told by [...] use any (more content not included)... Normal [facility] 12-28-19 [facility] [place] Case Information Case Priority: None Programs: -- Referral Source: [employer] Referral Reason: Disease management Case Type: Chronic Care Management Risk Score: -- Case Status: Active (December 28, 2023) Date Assigned: December 19, 2023 Assigned By: Christian Hernandez Date Enrolled: December 28, 2023 Assigned Primary Personnel: Christian Hernandez Assigned Secondary Personnel: -- Case Physician: -- Problems Ongoing AAA (abdominal aortic aneurysm) Aortic aneurysm BMI 28.0-28.9,adult BPH (benign prostatic hyperplasia) CAD in [place] artery Controlled type 2 diabetes mellitus without [...] CCM Program Enrollment Verbally agreed to receive [facility] services CCM Written Consent Written consent in progress CCM Verbal Consent By Self 12/28/23 07:00:00 Result Name Value Comment HIPPA Verified Type of Contact In person at home CM Preferred Spoken Language Macedonian CM Preferred Written Language Macedonian Preferred Communication Mode Verbal Ability to Read/Write Able to read, Able to write Preferred Salutation Preferred Method of Contact Cell Cell Phone [phone] Best Time to Visit or Contact 7-10 am Best Day to Visit or Contact No preference Appointment Reminders Patient portal, Other secured messaging Preferred Way to Send PHI Patient portal Preferred Mailing Address [address] [place] [address] Learning Style Pref Patient Verbal explanation Learning [...] Shares bed Support System Spouse/Significant other Primary Director Work of Home Medication Self Current DME at Home No Currently Receiving Skilled Services No Skilled Service Needs Anticipated No Barriers to Care None Home Barriers None Employment Status Retired Financial Issues None Sources of Income Social Security Patient Account Ser (more content not included)... Normal [facility] Population Health Problems Ongoing AAA (abdominal aortic aneurysm) Aortic aneurysm BMI 28.0-28.9,adult BPH (benign prostatic hyperplasia) CAD in [place] Controlled type 2 diabetes mellitus without [...] - Comments: - - 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 Frequency Status Inker Review educational material - - Not done [...] - Comments: - - 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 Frequency Status Inker Review educational material - - Not done [...] - Comments: - - 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 Frequency Status Inker Review educational material - - Not done [...] - Comments: - - 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 Frequency Status Inker Review educational material - - Not done [...] - Not done - - Selene Hou [facility] CT Chest, Low Dose Screening on [...] (Electronic Signature): 12/27/2023 5:55 pm Signed by: Zcah Bourne MD Transcribed by: LUDWIN Technologist: SB [facility] Consent for Treatmenton 12-14 Consent for Treatment [id number] #1.00TIFF [facility] Family Medicine Office/Clini c Noteon 12-22-2023 [...] of clutter to prevent tripping and/or falling. [place] Advance Directives reviewed, patient has at home, [...] with CDC recommendation that everyone born from 3092[birth year]2573 get tested for Hepatitis C. This is [...] Pack Yea (more content not included)... Normal [facility] Comment on above: Result Comment: Elec tronically Signed By: Ursula Love MD\.br\Date and Time Signed: 12/22/23 11:50 EST\.br\Electronically Co-Signed By: Christian Hernandez\.br\Date and Time Co-Signed: 12/18/23 15:00 EST .Interpretation:on HCV Ab IA Ql Comment Invalid Interpretation Code [facility] Comment on above: Result Comment: Not infected with HCV unless early or acute infection is suspected (which may be delayed in an immunocompromised individual), or other evidence exists to indicate HCV infection. Performed at: [facility] [address] [place], [place] [id number] PhD Nicole Fang Performed By: #### 2 487752, 4420566212, 9125619, 2666488, 3650936376, 274698095, 33460198 ####[facility] [address] [place] [address] HCV Antibody RFX to Quant PC Kavin 12-20-2023 HCV IgG IA Ql Non-Reactive Invalid Interpretation Code Non Reactive [facility] Comment on above: Result Comment: Perf ormed at: [facility] [address] [place], [place] [id number] PhD Nicole Fang Performed By: #### 2 408075, 3051290016, 1403547, 9050162, 7329066707, 980978801, 00260006 ####Ameya [facility] [address] [place] [address] Screenson 12-19-2023 Screens [id number] #1.00TIFF Normal A[facility] Ambulatory Visit Summaryon 0 12-18-2023 Ambulatory [...] 28.0-28.9,adult BPH (benign prostatic hyperplasia) CAD in [place] Controlled type 2 diabetes mellitus without [...] for choosing us for your care. Normal [facility] CBC w/ Auto Diffon 4 Anisocytosis Ql (Bld) PRESENT Invalid Interpretation Code [facility] Comment on above: Performed By: #### 2 332633, 1753206561, 4213551, 5451981, 8794031417, 338642934, 82735784 ####[facility] [address] [place] [address] Basophils/100 WBC (Bld) 0.6 % Normal 0.0-2.0 [facility] Comment on above: Performed By: #### 2 100617, 1667495784, 3226892, 0569045, 8715332390, 042330628, 08442727 ####[facility] [address] [place] [address] Basophils/Leukocytes Auto (Bld) [Pure # fraction] 0.0 E9/L Normal 0.0-0.2 [facility] Comment on above: Performed By: #### 2 088625, 8710316109, 2190504, 9144364, 1580356820, 531839081, 54738833 ####[facility] [address] [place] [address] Eosinophils (Bld) [#/Vol] 0.1 E9/L Normal 0.0-0.5 [facility] Comment on above: Performed By: #### 2 393907, 0591554050, 6753029, 3348312, 3896405864, 063424116, 78700472 ####[address] [address] Eosinophils/100 WBC (Bld) 2.7 % Normal 0.0-8.0 [facility] Comment on above: Performed By: #### 2 985599, 0971568901, 0813904, 8968822, 9233830569, 268174618, 02424021 ####[address] [address] Erythrocyte distribution width (RBC) [Ratio] 17.2 % High 10.9-14.2 [facility] Comment on above: Performed By: #### 2 012141, 6089246328, 5911653, 9448873, 5468763100, 728709258, 18855154 ####[address] [address] Hematocrit (Bld) [Volume fraction] 34.4 % Low 37.7-49.0 [facility] Comment on above: Performed By: #### 2 225634, 1984250207, 4609934, 4573075, 2907774267, 679889948, 42058502 ####[facility] [address] [place] [address] Hemoglobin (Bld) [Mass/Vol] 10.9 g/dL Low 13.5-17.5 [facility] Comment on above: Performed By: #### 2 725616, 6038994462, 1511716, 5779596, 8978692199, 940138724, 58987287 ####[facility] [address] [place] [address] Hypochromia Auto Ql (Bld) PRESENT Invalid Interpretation Code [facility] Comment on above: Performed By: #### 2 182960, 7986164218, 3568177, 2472202, 6647202359, 273349040, 11122852 ####[facility] [address] [place] [address] Lymphocytes (Bld) [#/Vol] 1.3 E9/L Normal 1.0-4.0 [facility] Comment on above: Performed By: #### 2 632363, 2803426356, 4117988, 9728359, 5956044013, 960472575, 11484175 ####[address] [address] Lymphocytes/100 WBC (Bld) 25.8 % Normal 14.0-50.0 [facility] Comment on above: Performed By: #### 2 009463, 5932705745, 8979321, 3683252, 5097392710, 382370681, 71617320 ####[address] [address] MCH (RBC) [Entitic mass] 23.3 pg Low 27.0-34.0 [facility] Comment on above: Performed By: #### 2 414417, 7310816307, 4677183, 0258232, 1246111643, 493570957, 51275291 ####[address] [address] MCHC (RBC) [Mass/Vol] 31.6 g/dL Normal 31.4-36.0 [facility] Comment on above: Performed By: #### 2 397254, 0229803692, 2340961, 0375934, 8869149890, 335405038, 55998992 ####[address] [address] MCV (RBC) [Entitic vol] 73.6 fL Low 80.0-100.0 [facility] Comment on above: Performed By: #### 2 963241, 3520450867, 4996321, 3352856, 3268167373, 012514032, 28070694 ####[address] [address] Microcytes Ql (Bld) PRESENT Invalid Interpretation Code [facility] Comment on above: Performed By: #### 2 437211, 6206540002, 9674881, 8996901, 7574466546, 253683076, 13452791 ####[address] [address] Monocytes (Bld) [#/Vol] 0.4 E9/L Normal 0.2-1.0 [facility] Comment on above: Performed By: #### 2 345771, 9833817850, 0181825, 5180533, 4588637589, 482549483, 74129047 ####[address] [address] Neutrophils (Bld) [#/Vol] 3.2 E9/L Normal 2.0-7.5 [facility] Comment on above: Performed By: #### 2 835695, 5280047168, 5142436, 3148964, 2749448369, 776951080, 04648896 ####[address] [address] Neutrophils/100 WBC (Bld) 63.4 % Normal 36.0-75.0 [facility] Comment on above: Performed By: #### 2 859833, 4028875719, 0199240, 3053459, 6833521398, 312586717, 95089422 ####[address] [address] Ovalocytes LM Ql (Bld) PRESENT Invalid Interpretation Code [facility] Comment on above: Performed By: #### 2 598690, 8835348623, 6487691, 4059265, 3320184549, 627147618, 07075155 ####[place] [address] Platelet mean volume (Bld) [Entitic vol] 10.4 fL Normal 6.4-10.8 [facility] Comment on above: Performed By: #### 2 637059, 1721152173, 8221380, 9561323, 4637240522, 433346413, 30402681 ####[address] [address] Platelets (Bld) [#/Vol] 137.0 E9/L Low 150.0-500.0 [facility] Comment on above: Performed By: #### 2 644868, 6375313637, 5331421, 9738233, 2557115372, 669356217, 03831059 ####[place] [address] Poikilocytosis Auto Ql (Bld) PRESENT Invalid Interpretation Code [facility] Comment on above: Performed By: #### 2 287694, 8537853762, 0542641, 3795285, 6695266231, 376881101, 07160305 ####[address] [address] RBC (Bld) [#/Vol] 4.7 E12/L Normal 4.3-5.9 [facility] Comment on above: Performed By: #### 2 486914, 0150071294, 6900804, 7807005, 0904883334, 896880083, 96656050 ####[place] 3[address]657 WBC corrected for nucl RBC Auto (Bld) [#/Vol] 5.0 E9/L Normal 4.0-11.0 [facility] Comment on above: Performed By: #### 2 280622, 9069414260, 0799746, 0007670, 4858503056, 525362313, 97834710 ####[facility] [address] [place] [address] CHEMISTRYOrdered By: SYSTEM SYSTEM on 12-18-2023 Albumin [...] 12-18-2023 Albumin [Mass/Vol] 4.4 g/dL Normal 3.3-5.0 [facility] Comment on above: Performed By: #### 2 020086, 7848147038, 9695749, 4721247, 9631532400, 538579264, 59233958 ####[facility] [address] [place] [address] Albumin/Globulin (S) [Mass conc ratio] 2.6 High 1.1-2.2 [facility] Comment on above: Performed By: #### 2 860896, 9939846512, 1448091, 1952615, 9045199628, 411159287, 98748082 ####[facility] [address] [place] [address] ALP [Catalytic activity/Vol] 49 Int._Unit/L Normal 21-98 [facility] Comment on above: Performed By: #### 2 141326, 8738215883, 4384544, 0461688, 5517108292, 377156503, 68489649 ####[facility] [address] [place] [address] ALT No additional P-5'-P [Catalytic activity/Vol] 20 Int._Unit/L Normal 6-46 [facility] Comment on above: Performed By: #### 2 976604, 8706577307, 7714988, 3939846, 4840180589, 260129475, 28307092 ####[facility] [address] [place] [address] Anion gap [Moles/Vol] 13 mmol/L Normal 6-16 [facility] Comment on above: Performed By: #### 2 027270, 1873697610, 4401313, 0047985, 3097555469, 536763732, 61713041 ####[place] [address] [place] [address] AST [Catalytic activity/Vol] 17 Int._Unit/L Normal 5-43 [facility] Comment on above: Performed By: #### 2 683995, 1475209439, 0495075, 9958894, 6785304925, 783925052, 10413728 ####[facility] [address] [place] [address] Bilirubin [Mass/Vol] 1.7 mg/dL High 0.0-1.1 [facility] Comment on above: Performed By: #### 2 237834, 5068404259, 1445152, 0404239, 1569077789, 260689559, 03463620 ####[place] [address] [place] [address] Calcium [Mass/Vol] 9.3 mg/dL Normal 8.9-11.1 [facility] Comment on above: Performed By: #### 2 043613, 4956256669, 9705198, 9572742, 8940984880, 228881952, 91024715 ####[facility] [address] [place] [address] Chloride [Moles/Vol] 103 mmol/L Normal 101-111 [facility] Comment on above: Performed By: #### 2 163900, 2192782775, 6478444, 8404290, 6332881220, 316896746, 63021387 ####[facility] [address] [place] [address] CO2 [Moles/Vol] 26 mmol/L Normal 21-31 [facility] Comment on above: Performed By: #### 2 601905, 2196177601, 8098040, 9162556, 3363679202, 796159487, 76284124 ####[facility] [address] [place] [address] Creatinine [Mass/Vol] 0.8 mg/dL Normal 0.5-1.3 [facility] Comment on above: Performed By: #### 2 477643, 1757918952, 1503743, 9989847, 6936917431, 273225980, 49433615 ####[place] [address] [place] [address] Globulin (S) [Mass/Vol] 1.7 g/dL Normal 1.4-4.0 [facility] Comment on above: Performed By: #### 2 017285, 2290590353, 3251326, 7765979, 9744201070, 090568527, 26802081 ####[facility] [address] [place] [address] Glucose [Mass/Vol] 124 mg/dL Normal 55-199 [facility] Comment on above: Performed By: #### 2 144308, 6969990750, 0416634, 1980755, 9001353220, 503096731, 91860879 ####[facility] [address] [place] [address] Potassium [Moles/Vol] 4.0 mmol/L Normal 3.5-5.3 [facility] Comment on above: Performed By: #### 2 834103, 0208691766, 4966840, 5257010, 1130089338, 324802171, 90349421 ####[place] [address] [place] [address] Protein [Mass/Vol] 6.1 g/dL Normal 6.0-7.8 [facility] Comment on above: Performed By: #### 2 026867, 4981629827, 4158222, 1302329, 6267633591, 922668825, 99768156 ####[facility] [address] [place] [address] Sodium [Moles/Vol] 138 mmol/L Normal 135-145 [facility] Comment on above: Performed By: #### 2 516075, 5044175230, 9583560, 2018780, 4114736478, 560819231, 88242111 ####[facility] [address] [place] [address] Urea nitrogen [Mass/Vol] 8 mg/dL Normal 5-21 [facility] Comment on above: Performed By: #### 2 708819, 8841239068, 0688643, 3415818, 9793290271, 202113138, 43063556 ####[facility] [address] [place] [address] Urea nitrogen/Creatinine [Mass ratio] 10 No Units Normal 10-20 [facility] Comment on above: Performed By: #### 2 803992, 8227915817, 9677760, 3203460, 5972150148, 301278596, 18181436 ####[facility] [address] [place] [address] HEMATOLOGYOrdered By: SYSTEM SYSTEM on 12-18-2023 Anisocytosis [...] Normal 4.0 - 11.0 E9/L Remisol Heme IlsC0caj 12-18-2023 HbA1c (Bld) [Mass fraction] 6.9 % High <=5.9 [facility] Comment on above: Performed By: #### 2 293862, 9393482823, 0589955, 0876798, 2722205833, 187119186, 42631420 ####[facility] [address] [place] [address] Lipid Panelon 12-18-2023 Cholesterol [Mass/Vol] 118 mg/dL Low 120-200 [facility] Comment on above: Performed By: #### 2 467132, 1022027478, 6639282, 1377315, 2289482309, 447440378, 61213633 ####[facility] [address] [place] [address] Cholesterol in HDL [Mass/Vol] 37 mg/dL Invalid Interpretation Code [facility] Comment on above: Result Comment: '>= 60 LOW RISK' '<= 40 HIGH RISK' Performed By: #### 2 257786, 5243797544, 6325438, 7718997, 7278336288, 663845500, 74125819 ####[facility] [address] [place] [address] Cholesterol in LDL [Mass/Vol] 72 mg/dL Normal <=129 [facility] Comment on above: Performed By: #### 2 2609[address], 3901637595, 9630143, 5201370, 5308036304, 486019926, 30067548 ####[facility] [address] [place] [address] Cholesterol in VLDL [Mass/Vol] 22 mg/dL Normal 7-40 [facility] Comment on above: Performed By: #### 2 899045, 9890738796, 1454000, 9214392, 0766506530, 802470243, 99979408 ####[facility] [address] [place] [address] Triglyceride [Mass/Vol] 112 mg/dL Normal <=149 [facility] Comment on above: Performed By: #### 2 022956, 4907690765, 0106685, 0420409, 8484980801, 262875992, 47259026 ####[facility] [address] [place] [address] Patient Educationon 12-18-19 Patient Education Cardiovascular Atrial [...] signals of the heart. ? An ambulatory counter top maker to record your heart's activity for a [...] Trouble breathing. (more content not included)... Normal [facility] eGFRon 12-18-2023 eGFR 98 mL/min/1.73 m2 Normal >=59 [facility] Comment on above: Order Comment: Order added by Discern Expert. Performed By: #### 2 097301, 5104334830, 9725650, 7467847, 8513063661, 440440391, 27603227 ####[facility] [address] [place] [address] 36on 11-20-2023 36 Patient emailed me and asked if we had samples of Xarelto. Since he's on Medicare now it's very expensive for him. We haven't had a rep bring samples of Xarelto in about 1 year. I mentioned switching to Eliquis, since we do get samples of that. Ok to send RX for Eliquis 5mg bid? Please advise. Thanks! Normal [facility] Ambulatory Visit Summaryon 1 12-05-2022 Ambulatory Visit [...] Appointments Monday 8:00 AM EDT With: Where: [place] [id number]- \.br\ Medications\.br \ What How Much When [...] BPH (benign prostatic hyperplasia)\.b r\ CAD in [place] artery\.br\ Controlled type 2 diabetes mellitus without [...] choosing us for your care.\.br\ \.br\ [facility] General Surgery Office/Clini c Noteon 10-04-2023 [...] 28.0-28.9,adult BPH (benign prostatic hyperplasia) CAD in [place] artery Controlled type 2 diabetes mellitus without [...] Daily, 08/29/2023 Employment/School Employed, Work/School description: [employer]. Highest education level: High school. 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 Normal [facility] Pathology Noteon 09-27-2023 Pathology Note [id number]#1.00TIFF Normal [facility] Outside Colonoscopyon 2022 Outside Colonoscopy [id number] #1.00TIFF Normal [facility] Lab Reportson 09-21-2023 Lab Reports [id number] #1.00TIFF [facility] Physician Referralon 023 Physician Referral [id number] #1.00TIFF [facility] Physician Referralon 023 Physician Referral [id number]# 1.00TIFF [facility] Consent for Procedure/Surger yon 08-30-2023 Consent for Procedure/Surgery [id number] 8#1.00TIFF [facility] Ambulatory Visit Summaryon 10-29-2022 Ambulatory Visit [...] Monday 8:00 AM EDT With: Where: [facility] Normal [address] [place] [address]- \.br\ Medications\.br \ What How Much When [...] BPH (benign prostatic hyperplasia)\.b r\ CAD in [place]\.br\ Controlled type 2 diabetes mellitus without [...] for choosing us for your care.\.br\ \.br\ [facility] Ambulatory Visit Summaryon 1 10-16-2022 Ambulatory Visit Summary MARCELLE DEUTSCH :1960 Visit Date:08/16/2023 Ambulatory Visit Instructions Your Diagnosis Kidney stone Gross hematuria BPH (benign prostatic hyperplasia) Personal history of kidney stones Former smoker Family history of kidney cancer Tests Performed Urnls Dip Stick Auto w/o Microscopy POC 88995 Your Care Team Attending Physician - Teo NIELSON, Shelley Sidhu Primary Care Physician - Ross Ursula NIELSON Referring Physician - Ursula Love MD This [...] Jose Luis THOMAS MD Where: General Surgery [facility] Invalid Interpretation Code [address] [place] [address]- \.br\ Monday 8:40 AM EDT \.br\ With: Ursula Love MD\.br\ Where: [facility] Patient Education 08-16-20 Patient Education Nephrology Dietary Guidelines to [...] Spinach (cooked), rhubarb, beets, sweet potatoes, and Georgian chard. ? Peanuts. ? Potato chips, turkish fries, and baked potatoes with skin on. ? Nuts and nut products. ? Chocolate. ? If you regularly take a diuretic medicine, make sure to eat at least 1 or 2 servings of fruits or vegetables that are high in potassium each day. These include: ? Avocado. ? Banana. ? [place], prune, carrot, or tomato juice. ? Baked [...] fish oil, or vitamin B6. ? Take nxvs-umh-gjeikrg and prescription medicines only as told by your health care provider. These include supplements. What foods should I limit? Limit your in (more content not included)... Normal [facility] Screenson 08-16-2023 Screens [id number] #1.00TIFF Normal [facility] Urology Office/Clinic Noteon 08-16-2023 Urology Office/Clinic [...] Modifications. -Increase fluid intake, 90oz/day, clear fluids, lemon/[place] 2. Gross hematuria (R31.0: Gross hematuria) CT [...] (benign prostatic (more content not included)... Normal [facility] Comment on above: Result Comment: [...] Oral contrast amount in ml's: 0 Normal [facility] Consent for Treatmenton 07-17 Consent for Treatment [id number] #1.00TIFF [facility] Ambulatory Visit Summaryon 1 Ambulatory Visit [...] Jose Luis THOMAS MD Where: General Surgery [facility] Invalid Interpretation Code [address] [place] [address]- \.br\ Monday 8:40 AM EDT \.br\ With: Ursula Love MD\.br\ Where: [facility] Nurse Consultation Noteon Nurse Consultation Note Physical [...] influenza virus vaccine, inactivated 07/30/2018 Recorded Normal [facility] URINALYSISOrdered By: Isaiah Garcia on 08-04-2023 [...] PM) Normal Negative [facility] UA Auto SS Tornado.plasma/Lithiu m.RBC (Bld) [Mass ratio] 0-3 /HPF Normal [...] [facility] UA Auto SS Urobilinogen Qn (U) 0.2137132 {Denny'U}/dL Normal 0.0 - 1.0 EU/dL FT UA Auto SS WBC Auto Ql (U) Negative (08/04/23 2:10 PM) Normal Negative [facility] UA Auto SS WBC LM.HPF (Urine sed) [#/Area] 0-5 /HPF Normal 0-5/HPF [facility] UA Auto SS Urinalysison 08-04-2023 Bacteria LM Ql (Urine sed) TRACE Normal Trace [facility] Comment on above: Performed By: #### 1 [id number] ####[facility] [address] [place] [address] Bilirubin Ql (U) Negative Normal Negative [facility] Comment on above: Performed By: #### 1 [id number] ####[facility] [address] [place] [address] Clarity (U) CLEAR Normal Clear [facility] Comment on above: Performed By: #### 1 [id number] ####[facility] [address] [place] [address] Color (U) YELLOW Normal Yellow [facility] Comment on above: Performed By: #### 1 [id number] ####[facility] [address] [place] [address] Crystals LM Ql (Urine sed) Present Normal [facility] Comment on above: Performed By: #### 1 [id number] ####[address] [address] Epithelial cells.squamous LM.HPF (Urine sed) [#/Area] 0-2 Normal 0-2 [facility] Comment on above: Performed By: #### 1 [id number] ####[facility] [address] [place] [address] Glucose Test strip (U) [Mass/Vol] Negative Normal Negative [facility] Comment on above: Performed By: #### 1 [id number] ####[facility] [address] [place] [address] Hemoglobin Ql (U) Negative Normal Negative [facility] Comment on above: Performed By: #### 1 [id number] ####[facility] [address] [place] [address] Ketones (U) [Mass/Vol] Negative Normal Negative [facility] Comment on above: Performed By: #### 1 [id number] ####[facility] [address] [place] [address] Tornado.plasma/Lithiu m.RBC (Bld) [Mass ratio] 0-3 Normal 0-3 [facility] Comment on above: Performed By: #### 1 [id number] ####[facility] [address] [place] [address] Nitrite Ql (U) Negative Normal Negative [facility] Comment on above: Performed By: #### 1 [id number] ####[address] [address] pH (U) 6.0 [pH] Invalid Interpretation Code 5.0-9.0 [facility] Comment on above: Performed By: #### 1 [id number] ####[address] [address] Protein (U) [Mass/Vol] Negative Normal Negative [facility] Comment on above: Performed By: #### 1 [id number] ####[address] [address] Specific gravity (U) [Rel density] <=1.005 Invalid Interpretation Code 1.005-1.030 [facility] Comment on above: Performed By: #### 1 [id number] ####[address] [address] Type of Urine collection method Clean Catch Normal [facility] Comment on above: Performed By: #### 1 [id number] ####[address] [address] Urobilinogen Qn (U) 0.2 {Denny'U}/dL Normal 0.0-1.0 [facility] Comment on above: Performed By: #### 1 [id number] ####[address] [address] WBC Auto Ql (U) Negative Normal Negative [facility] Comment on above: Performed By: #### 1 [id number] ####[address] [address] WBC LM.HPF (Urine sed) [#/Area] 0-5 Normal 0-5 [facility] Comment on above: Performed By: #### 1 [id number] ####[address] [address] Physician Referralon 023 Physician Referral [id number] #1.00TIFF Normal [facility] Lab Reportson 08-02-2023 Lab Reports [id number] #1.00TIFF Normal [facility] Ambulatory Visit Summaryon 1 Ambulatory Visit Summary MARCELLE DEUTSCH :1960 Visit Date:07/19/2023 Ambulatory Visit Instructions Your Diagnosis BMI 28.0-28.9,adult Non-smoker Hematuria Kidney stone Left flank pain Dysuria Tests Performed Urnls Dip Stick Non-Auto w/o Micrscpy POC 38746 Your Care Team Attending Physician - Juan Antonio LIVINGSTON, Karen Richard Primary Care Physician - Ursula Love MD [...] Appointments Monday 8:00 AM EDT With: Where: [facility] Normal [address] [place] [address]- \.br\ Medications\.br \ What How Much When Why Instructions\.b r\ New tamsulosin (Flomax 0.4 mg Cap) 1 Capsules By Mouth Every day BMI 28.0-28.9,adult Non-smoker Hematuria Kidney stone Left flank pain Dysuria Pickup at [facility]/pharmacy #[id number]\.br\ Unchanged amlodipine (amLODIPine 5 mg Tab) By [...] day (in the evening)\.br\ Pharmacy Information\.br \ [facility]/pharmacy #[id number]: [address], [place] [phone]\.br\ Test Results\.br\ Urnls Dip Stick Non-Auto w/o Micrscpy POC 83048 (07/19/2023)\.b r\ Bilirubin Urine Dipstick - Negative\.br\ Blood Urine Dipstick - 3+ Large\.br\ Glucose Urine Dipstick - Negative\.br\ Ketones Urine Dipstick - Negative\.br\ Leukocytes Urine Dipstick - Negative\.br\ Nitrite Urine Dipstick - Negative\.br\ Protein Urine Dipstick - Negative\.br\ Specific [place] Urine Dipstick - <=1.005\.br\ Urine Appearance Urine Dipstick - Clear\.br\ Urine Color Urine Dipstick - Light yellow\.br\ Urobilinogen Urine Dipstick - Normal 0.2-1 EU/dl\.br\ pH Urine Dipstick - 7\.br\ Allergies\.br\ penicillins\.br \ Problems\.br\ Ongoing - Any problem that you are currently receiving treatment for.\.br\ BMI 28.0-28.9,adult \.br\ CAD in [place] artery\.br\ Controlled type 2 diabetes mellitus without [...] Dyslipidemia\.b r\ Hypertension\.b r\ Metabolic syndrome\.br\ \.br\ [facility] Ambulatory Visit Summary MARCELLE DEUTSCH :1960 Visit Date:07/19/2023 Ambulatory Visit Instructions Your Diagnosis BMI 28.0-28.9,adult Non-smoker Hematuria Kidney stone Left flank pain Dysuria Tests Performed Urnls Dip Stick Non-Auto w/o Micrscpy POC 86569 Your Care Team Attending Physician - Karen [...] Appointments Monday 8:00 AM EDT With: [facility]: [facility] Normal [address] [place] [address]- \.br\ Medications\.br \ What How Much When Why Instructions\.b r\ New tamsulosin (Flomax 0.4 mg Cap) 1 Capsules By Mouth Every day BMI 28.0-28.9,adult Non-smoker Hematuria Kidney stone Left flank pain Dysuria Pickup at [facility]/pharmacy #[id number]\.br\ Unchanged amlodipine (amLODIPine 5 mg Tab) By [...] (in the evening)\.br\ Pharmacy Information\.br \ [facility]pharmacy #[id number]: [address], [place] [phone]\.br\ Test Results\.br\ Urnls Dip Stick Non-Auto w/o Micrscpy POC 58373 (07/19/2023)\.b r\ Bilirubin Urine Dipstick - Negative\.br\ Blood Urine Dipstick - 3+ Large\.br\ Glucose Urine Dipstick - Negative\.br\ Ketones Urine Dipstick - Negative\.br\ Leukocytes Urine Dipstick - Negative\.br\ Nitrite Urine Dipstick - Negative\.br\ Protein Urine Dipstick - Negative\.br\ Specific [place] Urine Dipstick - <=1.005\.br\ Urine Appearance Urine Dipstick - Clear\.br\ Urine Color Urine Dipstick - Light yellow\.br\ Urobilinogen Urine Dipstick - Normal 0.2-1 EU/dl\.br\ pH Urine Dipstick - 7\.br\ Allergies\.br\ penicillins\.br \ Problems\.br\ Ongoing - Any problem that you are currently receiving treatment for.\.br\ BMI 28.0-28.9,adult \.br\ CAD in [place] artery\.br\ Controlled type 2 diabetes mellitus without [...] r\ Hypertension\.b r\ Metabolic syndrome\.br\ \.br\ [facility] Family Medicine Office/Clini c Noteon 07-19-2023 [...] Daily, # 10 cap(s), Refills(s) 0, Pharmacy: [facility]/pharmacy #[id number], 178, cm, 07/19/23 11:20:00 EDT, Height/Length Dosing, 89.2, kg, 07/19/23 11:20:00 EDT, Weight Dosing Urnls Dip Stick Non-Auto w/o Micrscpy POC 56382 2. Hematuria (R31.9: Hematuria, unspecified) large blood in urinalysis in office. everything else negative Ordered: tamsulosin, 0.4 mg = 1 cap(s), Oral, Daily, # 10 cap(s), Refills(s) 0, Pharmacy: [facility]/pharmacy #[id number], 178, cm, 07/19/23 11:20:00 EDT, Height/Length Dosing, 89.2, kg, 07/19/23 11:20:00 EDT, Weight Dosing Urnls Dip Stick Non-Auto w/o Micrscpy POC 19701 3. Kidney stone (N20.0: Calculus of kidney) will order flomax. if symptoms worsen will order KUB Ordered: tamsulosin, 0.4 mg = 1 cap(s), Oral, Daily, # 10 cap(s), Refills(s) 0, Pharmacy: [facility]/pharmacy #[id number], 178, cm, 07/19/23 11:20:00 EDT, Height/Length Dosing, 89.2, kg, 07/19/23 11:20:00 EDT, Weight Dosing 4. Dysuria (R30.0: Dysuria) pt states the pain is improving Ordered: tamsulosin, 0.4 mg = 1 cap(s), Oral, Daily, # 10 cap(s), Refills(s) 0, Pharmacy: [facility]/pharmacy #[id number], 178, cm, 07/19/23 11:20:00 EDT, Height/Length Dosing, 89.2, kg, 07/19/23 11:20:00 EDT, Weight Dosing Urnls Dip Stick Non-Auto w/o Micrscpy POC 38444 5. Non-smoker (Z78.9: Other specified health status) continue not smoking Ordered: tamsulosin, 0.4 mg = 1 cap(s), Oral, Daily, # 10 cap(s), Refills(s) 0, Pharmacy: [facility]/pharmacy #[id number], 178, cm, 07/19/23 11:20:00 EDT, Height/Length Dosing, 89.2, kg, 07/19/23 11:20:00 EDT, Weight Dosing Urnls Dip Stick Non-Auto w/o Micrscpy POC 78855 6. BMI 28.0-28.9,adult (Z68.28: Body mass index [BMI] 28.0-28.9, adult) BMI education complete Ordered: tamsulosin, 0.4 mg = 1 cap(s), Oral, Daily, # 10 cap(s), Refills(s) 0, Pharmacy: [facility]/pharmacy #[id number], 178, cm, 07/19/23 11:20:00 EDT, Height/Length Dosing, 89.2, kg, 07/19/23 11:20:00 EDT, Weight Dosing Urnls Dip Stick Non-Auto w/o Micrscpy POC 00371 Follow-up No qualifying data available Problem List/Past Medical History Ongoing BMI 28.0-28.9,adult CAD in [place] artery Controlled type 2 diabetes mellitus without [...] penicillins Social History Alcohol - Low Risk, (more content not included)... Normal [facility] Comment on above: Result Comment: Elec tronically Signed By: Karen Deleon\.br\Date and Time Signed: 07/19/23 17:48 EDT PSA Free & Totalon 3 Free PSA/Total PSA [Mass fraction] UT Abnormal >=25.0 [facility] Comment on above: Result Comment: Resu [...] SO, 1998; 279:1542-7 Performed By: #### 1 [id number], [id number] #### [facility] [address] [place] [address] Free PSA [Mass/Vol] <0.1 Invalid Interpretation Code [facility] Comment on above: Result Comment: The concentration of free PSA and total PSA determined with assays from different manufacturers can vary due to differences in assay methods and specificity. Values obtained with different sports broadcaster's assays cannot be used interchangeably. The methodology used to obtain this result was chemiluminescence using Tenisha Amity's Access Hybritech PSA reagent and Access Hybritech free PSA reagent. Performed By: #### 1 [id number], [id number] #### [facility] [address] [place] [address] Prostate specific Ag [Mass/Vol] 0.2 ng/mL Normal 0.1-3.5 [facility] Comment on above: Result Comment: The concentration of PSA determined by different manufacturers can vary due to differences in assay methods and reagent specificity. Values obtained from different assay methods cannot be used interchangeably. The methodology used for this result was chemiluminescence using Tenisha Amity's Access Hybritech PSA reagent. Performed By: #### 1 [id number], [id number] #### [facility] [address] [place] [address] CHEMISTRYOrdered By: Julien merida on 07-04-2023 Albumin DL <= 20 mg/L (U) [Mass/Vol] microgram/mL Normal 0.0 - 19.0 mcg/mL [facility] Remisol Albumin Elph (U) [Mass fraction] mg/dL Invalid Interpretation Code [facility] Remisol Creatinine (U) [Mass/Vol] 17.7 mg/dL Invalid Interpretation Code [facility] Remisol U Prot/Creat Ratio [facility] Invalid Interpretation Code 0.00 - 200.00 [facility] Remisol U Microalbon 07-04-2023 Albumin DL <= 20 mg/L (U) [Mass/Vol] mg/dL Normal 0.0-19.0 [facility] Comment on above: Performed By: #### 1 [id number], [id number] ####[facility] [address] [place] [address] U Protein/Creat Ratioon 06-16 Albumin Elph (U) [Mass fraction] <6.0 Invalid Interpretation Code [facility] Comment on above: Result Comment: The reference range and other method performance specifications have not been established for this test; results should be integrated into the clinical context for interpretation. Performed By: #### 1 [id number], [id number] ####[facility] [address] [place] [address] Creatinine (U) [Mass/Vol] 17.7 mg/dL Invalid Interpretation Code [facility] Comment on above: Result Comment: The reference range and other method performance specifications have not been established for this test; results should be integrated into the clinical context for interpretation. Performed By: #### 1 [id number], [id number] ####[facility] [address] [place] [address] U Prot/Creat Ratio [facility] Invalid Interpretation Code .00-200.00 [facility] Comment on above: Performed By: #### 1 [id number], [id number] ####[facility] [address] [place] [address] Ambulatory Visit Summaryon 0 07-03-2023 Ambulatory Visit [...] Appointments Monday 8:00 AM EDT With: Where: [facility] Normal [address] [id number] \.br\ Medications\.br \ What How Much When Instructions\.b r\ Changed omeprazole (omeprazole 20 mg Cap-DR) 1 Capsules By Mouth Every day Pickup at [address]\.br\ Unchanged diltiazem (diltiazem 30 mg Tab) See [...] concerns \.br\ Pharmacy Information\.br \ [facility]: [address] [place], [place] [id number] [phone]\.br\ Allergies\.br\ penicillins\.br \ Problems\.br\ Ongoing - Any problem that you are currently receiving treatment for.\.br\ BMI 28.0-28.9,adult \.br\ CAD in [place] artery\.br\ Controlled type 2 diabetes mellitus without complication, without long-term current use of insulin\.br\ Excess ear wax\.br\ GERD without esophagitis\.br \ Longstanding persistent atrial fibrillation\.b r\ Mixed hyperlipidemia\ .br\ Non-smoker\.br\ Primary hypertension\.b r\ Screening for colon cancer\.br\ Screening for prostate cancer\.br\ Historical - Any problem that you are no longer receiving treatment for.\.br\ Atrial fibrillation\.b r\ Dyslipidemia\.b r\ Hypertension\.b r\ Metabolic syndrome\.br\ \.br\ [facility] CHEMISTRYOrdered By: Bobby roman on 07-03-2023 HbA1c (Bld) [Mass fraction] 6.8 % High <=5.9% [facility] ChemAutoSS Family Medicine Office/Clini c Noteon 07-03-2023 Family Medicine Office/Clinic Note HPI Staff Marcelle is a 63 year old male presenting for a full physical exam Health Maintenance: Colonoscopy: coloard 3 years ago, due PSA: ?? Last Labs: [facility] he's unsure when no results in [...] didn't feel it was a problem email [email or web address] go on refill omeprazole to [facility] History of Present Illness - Here for [...] Daily, # 30 tab(s), Refills(s) 0, Pharmacy: [facility]/pharmacy #[id number] omeprazole, 20 mg = 1 cap(s), Oral, Daily, # 90 cap(s), Refills(s) 1, Pharmacy: [facility], 178, cm, 07/03/23 7:24:00 EDT, Height/Length Dosing, 90, kg, 07/03/23 7:24:00 EDT, Weight Dosing - Follow up in 6 months for Welcome to medicare. Follow-up No qualifying data available Problem List/Past Medical History Ongoing BMI 28.0-28.9,adult CAD in [place] artery Controlled type 2 diabetes mellitus without complication, without long-term current use of insulin Excess ear wax GERD without esophagitis Longstanding (more content not included)... Normal [facility] Comment on above: Result Comment: Elec tronically Signed By: Km NIELSON, Ursula Luis.br\Date and Time Signed: 07/03/23 07:50 EDT Formson 07-03-2023 Forms [id number] #1.00CD:127 Normal [facility] Forms [id number]# 1.00CD:127 Normal [facility] KasB2qpp 07-03-2023 HbA1c (Bld) [Mass fraction] 6.8 % High <=5.9 [facility] Comment on above: Performed By: #### 1 [id number], [id number] #### [facility] [address] [id number] Office Visiton 06-21-2023 Follow-up visit [id number] Marcelle Deutsch 1960 M Date Provider Department Center 06/21/2023 BLANKA LOMELI [facility] Family History Problem Relation Age of Onset Coronary artery disease Father Atrial fibrillation Father Heart attack Brother Family Status - Relation Status Age at Father Brother Level of Service:70906 MS OFFICE/OUTPATIENT ESTABLISHED LOW MDM 20-29 MIN Reason for Visit and Comments: Follow-up [637168] - 6 month F/U Normal [facility] CBC AUTO DIFFon 01-04-2023 BASO # 0.1 103/ul Normal 0.0-0.1 [facility] Comment on above: Performed By: #### C BC #### [facility] [address] [address] [address] Lucia San Basophils/100 WBC (Bld) 1.0 % Normal 0.2-2.0 [facility] Comment on above: Performed By: #### C BC #### [facility] [address] [place] [address] Dr. Lucia San EO # 0.1 103/ul Normal 0.0-0.7 [facility] Comment on above: Performed By: #### C BC #### [facility] [address] [place] [address] Dr. Lucia San Eosinophils/100 WBC (Bld) 2.5 % Normal 0.9-7.0 [facility] Comment on above: Performed By: #### C BC #### [facility] [address] [place] [address] Dr. Lucia San Erythrocyte distribution width (RBC) [Ratio] 17.3 % Critically high 11.0-15.0 [facility] Comment on above: Performed By: #### C BC #### [facility] [address] [place] [address] Dr. Lucia San Hematocrit (Bld) [Volume fraction] 35.2 % Critically low 42.0-54.0 [facility] Comment on above: Performed By: #### C BC #### [facility] [address] [place] [address] Dr. Lucia San Hemoglobin (Bld) [Mass/Vol] 11.3 g/dL Critically low 14.0-18.0 [facility] Comment on above: Performed By: #### C BC #### [facility] [address] [place] [address] Dr. Lucia San IG # 0.02 10e3/ul Normal 0.00-0.03 [facility] Comment on above: Performed By: #### C BC #### [facility] [address] [place] [address] Dr. Lucia San IG % 0.4 % Normal 0.0-0.5 [facility] Comment on above: Performed By: #### C BC #### [facility] [address] [place] [address] Dr. Lucia San LYMPH # 1.6 103/ul Normal 1.2-3.8 [facility] Comment on above: Performed By: #### C BC #### [facility] [address] [place] [address] Dr. Lucia San Lymphocytes/100 WBC (Bld) 30.9 % Normal 20.5-60.0 [facility] Comment on above: Performed By: #### C BC #### [facility] [address] [place] [address] Dr. Lucia San MANUAL DIFF REQ NO Normal [facility] Comment on above: Performed By: #### C BC #### [facility] [address] [place] [address] Dr. Lucia San MCH (RBC) [Entitic mass] 23.9 pg Critically low 25.9-34.0 [facility] Comment on above: Performed By: #### C BC #### [facility] [address] [place] [address] Dr. Lucia San MCHC (RBC) [Mass/Vol] 32.1 g/dL Normal 29.9-35.2 [facility] Comment on above: Performed By: #### C BC #### [facility] [address] [place] [address] Dr. Lucia San MCV (RBC) [Entitic vol] 74.6 fL Critically low 80.0-94.0 [facility] Comment on above: Performed By: #### C BC #### [facility] [address] [place] [address] Dr. Lucia San MONO # 0.5 103/ul Normal 0.3-0.8 [facility] Comment on above: Performed By: #### C BC #### [facility] [address] [place] [address] Dr. Lucia San Monocytes/100 WBC (Bld) 9.1 % Normal 1.7-12.0 [facility] Comment on above: Performed By: #### C BC #### [facility] [address] [place] [address] Dr. Lucia San NEUT # 2.9 103/ul Normal 1.4-6.5 [facility] Comment on above: Performed By: #### C BC #### [facility] [address] [address] [address] Lucia San Neutrophils/100 WBC (Bld) 56.1 % Normal 43.0-75.0 [facility] Comment on above: Performed By: #### C BC #### [facility] [address] [address] [address] Lucia San Platelet mean volume (Bld) [Entitic vol] 11.6 fL Normal 9.5-13.5 [facility] Comment on above: Performed By: #### C BC #### [facility] [address] [address] [address] Lucia San PLT 172 103/ul Normal 150-450 [facility] Comment on above: Performed By: #### C BC #### [facility] [address] [address] [address] Lucia San RBC 4.72 106/ul Normal 4.70-6.10 [facility] Comment on above: Performed By: #### C BC #### [facility] [address] [id number] Lucia San WBC 5.2 103/ul Normal 4.0-11.0 [facility] Comment on above: Performed By: #### C BC #### [facility] [address] [place], [place] [id number] Dr. Lucia San ECHOCARDIO M/2D COMPLETEon 0 01-04-2023 ECHOCARDIO M/2D COMPLETE Patient: MARCELLE DEUTSCH Exam Date: 01/04/2023 : 1960 Gender:M Ordering : DR BLANKA GORE M.D. Admission #: [id number] Family : Order #: [id number] CLICK HERE TO VIEW EXAM ECHOCARDIOGRAM REPORT [...] Area (VTI): 3.28 cm2, 3.28 cm2 Deceleration [place]: 0.48 m/s2 Pressure Half-Time: 1.33 s Peak [...] [place] M.D. on 01/04/2023 at 15:00 Normal [facility] GLYCOHEMOGLOBIN A1Con 2022 ADA RECOMMENDATION SEE BELOW Normal [facility] Comment on above: Result Comment: ADA RECOMMENDED LIMIT 4.0 - 6.0 ADA THERAPEUTIC TARGET < 7.0 ACTION SUGGESTED > 7.0 Performed By: #### A 1C #### [facility] [address] [place] [address] Dr. Lucia San HbA1c (Bld) [Mass fraction] 6.9 % Critically high 4.5-6.2 [facility] Comment on above: Performed By: #### A 1C #### [facility] [address] [place] [address] Dr. Lucia San LIPID PROFILEon 01-04-2023 CHOL-HDL RATIO NORM SEE BELOW Normal [facility] Comment on above: Result Comment: 3.3 - 4.4 LOW RISK 4.4 - 7.1 AVERAGE RISK 7.1 - 11.0 MODERATE RISK >11.0 HIGH RISK Performed By: #### L IPID #### [facility] [address] [address] [address] Lucia San Cholesterol [Mass/Vol] 140 mg/dL Normal <=200 [facility] Comment on above: Performed By: #### L IPID #### [facility] [address] [address] [address] Lucia San Cholesterol in HDL [Mass/Vol] 37 mg/dL Critically low 40-60 [facility] Comment on above: Performed By: #### L IPID #### [facility] [address] [address] [address] Lucia San Cholesterol in LDL [Mass/Vol] 80.2 mg/dL Normal [facility] Comment on above: Performed By: #### L IPID #### [facility] [address] [place] [address] Dr. Lucia San Cholesterol.total/Cho lesterol in HDL [Mass ratio] 3.8 {ratio} Normal [facility] Comment on above: Performed By: #### L IPID #### [facility] [address] [place] [address] Dr. Lucia San HDL NORMAL > or = 60 mg/dl - LOW CARDIOVASCULAR RISK <40 mg/dl - HIGH CARDIOVASCULAR RISK Normal [facility] Comment on above: Performed By: #### L IPID #### [facility] [address] [place] [address] Dr. Lucia San LDL CALC NORMAL SEE BELOW Normal [facility] Comment on above: Result Comment: <100 mg/dl OPTIMAL 100 - 129 mg/dl NEAR OR ABOVE OPTIMAL 130 - 159 mg/dl BORDERLINE HIGH 160 - 189 mg/dl HIGH >190 mg/dl VERY HIGH Performed By: #### L IPID #### [facility] [address] [place] [address] Dr. Lucia San Triglyceride [Mass/Vol] 114 mg/dL Normal <=150 [facility] Comment on above: Performed By: #### L IPID #### [facility] [address] [place] [address] Dr. Lucia San VLDL CALC 22.8 mg/dL Normal [facility] Comment on above: Performed By: #### L IPID #### [facility] [address] [place] [address] Dr. Lucia San MICROALBUMIN, RAND URon 12-15 mALB 1.5 mg/L Normal <=30.0 [facility] Comment on above: Performed By: #### M ALBR #### [facility] [address] [place] [address] Dr. Lucia San NM STRESS/REST MULTIon 01-04 NM STRESS/REST MULTI Patient: MARCELLE DEUTSCH Exam Date: 01/04/2023 : 1960 Gender:M Ordering : DR BLANKA GORE M.D. Admission #: [id number] Family : Order #: [id number] CLICK HERE TO VIEW EXAM RADIOLOGY REPORT [...] LOCATION: Basal inferior. Mid-anterior. Mid-inferior. Apical inferior. [place]. SIZE: Large (5 or more segments). SEVERITY: [...] Guzman MD on 01/04/2023 at 11:17 Normal [facility] PROF 14(COMP METB)on 023 Albumin [Mass/Vol] 4.1 g/dL Normal 3.4-5.0 [facility] Comment on above: Performed By: #### C MP #### [facility] [address] [place] [address] Dr. Lucia San Albumin/Globulin [Mass ratio] 1.7 {ratio} Normal [facility] Comment on above: Performed By: #### C MP #### [facility] [address] [place] [address] Dr. Lucia San ALP [Catalytic activity/Vol] 51 U/L Normal 46-116 [facility] Comment on above: Performed By: #### C MP #### [facility] [address] [place] [address] Dr. Lucia San ALT [Catalytic activity/Vol] 49 U/L Normal 16-63 [facility] Comment on above: Performed By: #### C MP #### [facility] [address] [place] [address] Dr. Lucia San Anion gap [Moles/Vol] 16.6 mmol/L Normal [facility] [place] [facility] Comment on above: Performed By: #### C MP #### [facility] [address] [place] [address] Dr. Lucia San AST [Catalytic activity/Vol] 28 U/L Normal 15-37 [facility] Comment on above: Performed By: #### C MP #### [facility] [address] [place] [address] Dr. Lucia San Bilirubin [Mass/Vol] 1.7 mg/dL Critically high 0.2-1.0 [facility] Comment on above: Performed By: #### C MP #### [facility] [address] [place] [address] Dr. Lucia San Calcium [Mass/Vol] 9.2 mg/dL Normal 8.5-10.1 [facility] Comment on above: Performed By: #### C MP #### [facility] [address] [place] [address] Dr. Lucia San Chloride [Moles/Vol] 100 mmol/L Normal 98-107 [facility] Comment on above: Performed By: #### C MP #### [facility] [address] [place] [address] Dr. Lucia San CO2 [Moles/Vol] 25.9 mmol/L Normal 21.0-32.0 [facility] Comment on above: Performed By: #### C MP #### [facility] [address] [place] [address] Dr. Lucia San Creatinine [Mass/Vol] 1.03 mg/dL Normal 0.70-1.30 [facility] Comment on above: Performed By: #### C MP #### [facility] [address] [place] [address] Dr. Lucia San EGFR-AF CITIZEN OF [place] >60 Normal >=60 [facility] Comment on above: Performed By: #### C MP #### [facility] [address] [place] [address] Dr. Lucia San EGFR-NON AF CITIZEN OF [place] >60 Normal >=60 [facility] Comment on above: Performed By: #### C MP #### [facility] [address] [place] [address] Dr. Lucia San Globulin (S) [Mass/Vol] 2.4 g/dL Normal [facility] Comment on above: Performed By: #### C MP #### [facility] [address] [place] [address] Dr. Lucia San Glucose [Mass/Vol] 151 mg/dL Normal [facility] Comment on above: Performed By: #### C MP #### [facility] [address] [place] [address] Dr. Lucia San Performed By: #### A 1C #### [facility] [address] [place] [address] Dr. Lucia San Potassium [Moles/Vol] 4.5 mmol/L Normal 3.5-5.1 [facility] Comment on above: Performed By: #### C MP #### [facility] [address] [address] [address] Lucia San Protein [Mass/Vol] 6.5 g/dL Normal 6.4-8.2 [facility] Comment on above: Performed By: #### C MP #### [facility] [address] [address] [address] Lucia San Sodium [Moles/Vol] 138 mmol/L Normal 136-145 [facility] Comment on above: Performed By: #### C MP #### [facility] [address] [address] [address] Lucia San Urea nitrogen [Mass/Vol] 13.0 mg/dL Normal 7.0-18.0 [facility] Comment on above: Performed By: #### C MP #### [facility] [address] [address] [address] Lucia San Urea nitrogen/Creatinine [Mass ratio] 12.6 mg/mg Normal [facility] Comment on above: Performed By: #### C MP #### [facility] [address] [address] [address] Lucia Rondon 02-03-2022 DANIS Office Visit (RADHA) MARCELLE DEUTSCH ([id number]) 1960 M Date Time Provider Department 02/03/22 8:30 AM JANNET GONZALEZ During your visit today, we recorded the following information about you: Pulse Blood pressure Weight Height 60/minute 180/76 85.3 kg 1.765 m Jannet Gonzalez MD 02/03/2022 9:58 AM Counts Include [address] Beds At [facility] Vascular Norman Plascencia Department of Cardiovascular Medicine SECTION OF CARDIAC PACING and ELECTROPHYSIOLOGY OUTPATIENT VISIT DATE February 03, 2022 OUTPATIENT VISIT TYPE CONSULTATION PRIMARY CARE PHYSICIAN: Mark Browning DO [address] [place] [address] CHIEF COMPLAINT: PAF HISTORY OF PRESENT ILLNESS [...] he is in SR. He denies syncope. [id number] (HTN, CAD, DM) tolerating Xarelto PAST MEDICAL HISTORY Diagnosis Date - Atrial fibrillation (HCC) 2013 - CAD (coronary artery disease) 09/02/2014 - Diabetes mellitus (HCC) - Dyslipidemia - Hypertension - Metabolic syndrome PAST SURGICAL HISTORY Procedure Laterality Date - AFIB PVI W/COMPL EP STUDY 07/10/2017 - CARDIAC CATH 09/02/2014 SURVEILLANCE ANALYST of proximal RCA. 70% ostial D1. [...] sweating-No, Frequen (more content not included)... Normal [facility] CNCOon 12-04-2021 CNCO Letter Text Normal [facility] Dermatopathologyon 0 Dermatopathology [facility] Dermatopathology Laboratory [address] [place] [id number] DERMATOPATHOLOGY REPORT Name:MARCELLE DEUTSCH [facility]. Rec #. [id number] Location: [facility] Date of Procedure: 10/02/2020 Race: Unknown Date Received: 10/06/2020 /Sex: 1960 (Age: 60) / M Date Reported: 10/08/2020 Other: Submitting Physician:SONIA GREEN APRN, MOLDER FOAM RUBBER-C FINAL DIAGNOSIS A. SKIN, (R) NECK, BIOPSY: SQUAMOUS CELL CARCINOMA IN SITU, EXTENDING TO THE DEEP AND PERIPHERAL MARGINS IN THESE PLANES OF SECTION. B. SKIN, MID BACK, BIOPSY: NEUROFIBROMA, EXTENDING TO THE DEEP MARGIN IN THESE PLANES OF SECTION. Electronically Signed Out by TC MAZA MD. Electronically Signed Out By TC MAZA MD/BRR By the signature on this report, the individual or group listed as making the Final Interpretation/Diagn osis certifies that they have reviewed this case. Clinical History: A: 0.8x0.5cm ISK vs. other. Biopsy. 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 Biopsy. Specimens Submitted As: A: SKIN, (R) NECK, BIOPSY B: SKIN, MID BACK, BIOPSY Gross Description: A: Received in formalin is a mayers piece of skin measuring [id number] in aggreg (small). The specimen is inked and embedded in toto. B: Received in formalin is a mayers piece of skin measuring [id number]. The specimen is inked and embedded in toto. ink/10/06/2020 Microscopic Description: A,B: Microscopic examination performed. Normal [facility] Comment on above: Performed By: #### D #### Dermatopathology Vital Signs Date Time Vital Sign Value Performing Clinician Facility 03-14-2024 10:16-0400 Body temperature 97.52 [degF] Ana Spencer [facility] 03-14-2024 10:16-0400 Diastolic blood pressure 85 mm[Hg] Ana Spencer [facility] 03-14-2024 10:16-0400 Heart rate 59 /min Ana Spencer [facility] 03-14-2024 10:16-0400 Mean blood pressure 116 mm[Hg] Ana Spencer [facility] 03-14-2024 10:16-0400 Respiratory rate 16 /min Ana Tj [facility] 03-14-2024 10:16-0400 SaO2% (BldA) [Mass fraction] 99 % Ana Spencer [facility] 03-14-2024 10:16-0400 Systolic blood pressure 179 mm[Hg] Ana Spencer [facility] 02-15-2024 13:10-0400 Blood Pressure Location Ana Spencer [facility] 02-15-2024 13:10-0400 Body temperature 98.06 [degF] Ana Spencer [facility] 02-15-2024 13:10-0400 Diastolic blood pressure 61 mm[Hg] Ana Spencer [facility] 02-15-2024 13:10-0400 Heart rate 62 /min [facility] Tj [facility] 02-15-2024 13:10-0400 Mean blood pressure 77 mm[Hg] Ana Lingke [facility] 02-15-2024 13:10-0400 Respiratory rate 16 /min Ana Lingke [facility] 02-15-2024 13:10-0400 SaO2% (BldA) [Mass fraction] 99 % Ana Lingke [facility] 02-15-2024 13:10-0400 Systolic blood pressure 108 mm[Hg] Ana Spencer [facility] 02-08-2024 13:00-0400 Blood Pressure Location Ana Spencer [facility] 02-08-2024 13:00-0400 Body temperature 98.24 [degF] Ana Lingke [facility] 02-08-2024 13:00-0400 Diastolic blood pressure 82 mm[Hg] Ana Spencer [facility] 02-08-2024 13:00-0400 Heart rate 80 /min Ana Spencer [facility] 02-08-2024 13:00-0400 SaO2% (BldA) [Mass fraction] 100 % Ana Lingke [facility] 02-08-2024 13:00-0400 Systolic blood pressure 142 mm[Hg] Ana Hubbardboske [facility] 01-25-2024 08:58-0400 Diastolic blood pressure 82 mm[Hg] Ana Hubbardboske [facility] 01-25-2024 08:58-0400 Heart rate 65 /min Ana Hubbardboske [facility] 01-25-2024 08:58-0400 Mean blood pressure 118 mm[Hg] Ana Spencer [facility] 01-25-2024 08:58-0400 SaO2% (BldA) [Mass fraction] 99 % Ana Spencer [facility] 01-25-2024 08:58-0400 Systolic blood pressure 190 mm[Hg] Ana Spencer [facility] 08-16-2023 08:21-0400 Blood Pressure Location Shelley Lue [facility] 08-16-2023 08:21-0400 Diastolic blood pressure 83 mm[Hg] Shelley Lue [facility] 08-16-2023 08:21-0400 Heart rate 69 /min Shelley Lue [facility] 08-16-2023 08:21-0400 Respiratory rate 16 /min Shelley Lue [facility] 08-16-2023 08:21-0400 Systolic blood pressure 166 mm[Hg] Shelley Lue [facility] Encounters Encounter Date Encounter Type Care Provider Facility Start: 07-04-2024 End: 07-04-2024 ambulatory Ana Spencer Facility:[facility] Start: 07-04-2024 End: 07-04-2024 Patient encounter procedure Ana Spencer [facility] Start: 06-27-2024 End: 06-27-2024 Orders Only Jannet Gonzalez MD Work Phone: Cardiology Comment on above: Atrial fibrillation, unspecified type (HCC) (Primary Dx) Start: 2024 End: 2024 ambulatory Ursula Porter Ross Facility:[facility] Start: 06-06-2024 End: 06-06-2024 ambulatory Ana Spencer Facility:[facility] Start: 06-06-2024 End: 06-06-2024 Patient encounter procedure Ana Spencer [facility] Start: 05-09-2024 End: 05-09-2024 ambulatory Ana Spencer Facility:[facility] Start: 05-09-2024 End: 05-09-2024 Patient encounter procedure Ana Spencer [facility] Start: 04-24-2024 End: 05-08-2024 ambulatory Ursula IveyNelly Love Facility:[facility] Start: 04-11-2024 End: 04-11-2024 ambulatory Ana Spencer Facility:[facility] Start: 04-11-2024 End: 04-11-2024 Patient encounter procedure Ana Spencer [facility] Start: 03-26-2024 End: 03-26-2024 ambulatory [facility]ula [facility] Start: 03-22-2024 End: 04-09-2024 ambulatory Ursula IveyNelly Love [facility] Start: 03-14-2024 End: 03-14-2024 ambulatory Ana Spencer Facility:[facility] Start: 03-14-2024 End: 03-14-2024 Patient encounter procedure Ana Spencer [facility] Start: 03-12-2024 End: 03-12-2024 ambulatory Ana Spencer Facility:[facility] Start: 03-12-2024 End: 03-12-2024 Patient encounter procedure Ana Spencer [facility] Start: 02-15-2024 End: 02-15-2024 ambulatory Ana Spencer Facility:[facility] Start: 02-15-2024 End: 02-15-2024 Patient encounter procedure Ana Spencer [facility] Start: 02-08-2024 End: 02-08-2024 ambulatory Ana Spencer Facility:[facility] Start: 02-08-2024 End: 02-08-2024 Patient encounter procedure Ana Spencer [facility] Start: 02-01-2024 End: 02-01-2024 ambulatory Ana Spenecr Facility:[facility] Start: 02-01-2024 End: 02-01-2024 Patient encounter procedure Ana Spencer [facility] Start: 01-25-2024 End: 02-07-2024 ambulatory Ursula Love Facility:[facility] Start: 01-25-2024 End: 01-25-2024 Patient encounter procedure Ana Spencer [facility] Start: 01-16-2024 End: 01-16-2024 ambulatory Bharath Melton Facility:[facility] Start: 01-16-2024 End: 01-16-2024 Patient encounter procedure Bharath Melton [facility] Start: 12-29-2023 End: 12-29-2023 ambulatory PARISA GOPAL [facility] Start: 12-28-2023 End: 12-28-2023 ambulatory Ursula Love Facility:[facility] Start: 12-27-2023 End: 12-27-2023 ambulatory Ursula Love Facility:[facility] Start: 12-27-2023 End: 12-27-2023 Patient encounter procedure Ursula Love [facility] Start: 12-19-2023 ambulatory Ursula Love Facility :[id number] Start: 12-18-2023 End: 12-18-2023 Lab Drop off Ursula Love [facility] Start: 12-18-2023 End: 12-18-2023 ambulatory Ursula Love Facility:[facility] Start: 12-18-2023 End: 12-18-2023 ambulatory Ursula Love Facility:[facility] [place] Start: 10-04-2023 End: 10-04-2023 ambulatory Jose Luis R YONIL Facility: [facility] Start: 10-04-2023 End: 10-04-2023 Patient encounter procedure Jose Luis R YONIL [facility] Nill[facility]Said [place] Start: 09-20-2023 End: 09-20-2023 ambulatory Jose Luis R YONIL Facility:[id number] Start: 08-29-2023 End: 08-29-2023 ambulatory Ursula Love Facility: [place] Start: 08-16-2023 End: 08-16-2023 ambulatory Shelley Bruce Facility:[facility] [place] Start: 08-16-2023 End: 08-16-2023 Patient encounter procedure Shelley Bruce [facility] Start: 08-08-2023 ambulatory Jose Luis THOMAS Facility:[facility] Start: 08-07-2023 End: 08-07-2023 ambulatory Ursula Love Facility:[facility] Start: 08-07-2023 End: 08-07-2023 Patient encounter procedure Ursula Love [facility] Start: 08-04-2023 End: 08-04-2023 Lab Drop off Karen L Juan Antonio [facility] Start: 08-04-2023 End: 08-04-2023 ambulatory 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 Karen L Juan Antonio Facility:[facility] Start: 08-03-2023 ambulatory Jose Luis WILLIAM Facility:[facility] Start: 07-19-2023 End: 07-19-2023 ambulatory CARRIER DRIVER Karen L Juan Antonio Facility:[facility] Start: 07-04-2023 End: 07-04-2023 ambulatory Ursula Love Facility:[facility] Start: 07-04-2023 End: 07-04-2023 Lab Drop off Ursula Love [facility] Start: 07-03-2023 End: 07-03-2023 Lab Drop off Ursula Love [facility] Start: 07-03-2023 End: 07-03-2023 ambulatory Ursula Love Facility:[facility] Start: 06-21-2023 End: 06-21-2023 ambulatory [facility] Start: 01-04-2023 End: 01-05-2023 ambulatory URSULA LOVE Facility: Start: 04-01-2022 End: 04-01-2022 Off-Site Ursula Love [facility] Start: 03-30-2022 End: 03-30-2022 Off-Site Ursula Love [facility] Start: 02-03-2022 Orders Only Jannet Timmons [...] Treatment Date Care Activity Detail Author Start: 12-19-2024 End: 12-19-2024 Patient encounter procedure 12/19/2024 9:15 AM EST Office Visit Cardiology [address] [id number] Jannet Gonzalez MD [address] [place] [address] Paroxysmal atrial fibrillation (HCC) [I48.0] Cardiology Comment on above: Paroxysmal atrial fi brillation (HCC) [I48.0] Start: 12-19-2024 End: 12-19-2024 ambulatory 12/19/2024 8:30 AM EST Results Only Cardiology [address] [phone] Paroxysmal atrial fibrillation (HCC) [I48.0] Cardiology Comment on above: Paroxysmal atrial fi brillation (HCC) [I48.0] Start: 12-17-2024 ambulatory Ambulatory Facility:[facility] Start: 06-16-2024 Covid-19 Vaccine ( season) Covid-19 Vaccine ( season) [facility] Start: 06-16-2024 Influenza vaccination Influenza Vacc ine (#1) [facility] Start: 10-16-2023 Advance Directive Discussion Advance Directive Discussion [facility] Start: 2023 Pneumococcal Vaccine : 65+ (1 of 1 - PCV) Pneumococcal Vaccine: 65+ (1 of 1 - PCV) [facility] Start: 07-04-2020 DIABETES SCREEN [facility] Start: 07-04-2020 Diabetes Screening Diabetes Screenin g [facility] Start: 2018 RSV Vaccine (1 - 1-d ose 60+ series) RSV Vaccine (1 - 1-dose 60+ series) [facility] Start: 2013 PROSTATE CANCER SCREENING DISCUSSION PROSTATE CANCER SCREENING DISCUSSION [facility] Start: 2013 Prostate specific antigen measurement Prostate Cancer Screening Discussion [facility] Start: 2008 SHINGRIX VACCINE (1 of 2) SHINGRIX VACCINE (1 of 2) [facility] Start: 2003 COLOGUARD (FIT-DNA) COLOGUARD (FIT-D NA) [facility] Start: 2003 Colonoscopy COLONOSCOPY [facility] Start: 2003 COLORECTAL CANCER SCREENING COLORECTAL CANCER SCREENING [facility] Start: [address] COLONOGRAPHY [facility] Start: 2003 FECAL OCCULT BLOOD FECAL OCCULT BLOO D [facility] Start: 2003 Screening for malign ant neoplasm of colon [facility] Start: 2003 SIGMOIDOSCOPY SIGMOIDOSCOPY [facility] Start: 1993 Lipid panel Lipid Screening [facility] Start: 1993 LIPID SCREEN LIPID SCREEN [facility] Start: 1977 Urine microalbumin profile [facility] Start: 1976 ANNUAL PCP 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 DISEASE VISIT ANNUAL PCP TEAM CHRONIC DISEASE VISIT [facility] Start: 1976 Anxiety Screening Anxiety Screening [facility] Start: 1976 BP CONTROLLED (<130/80) BP CONTROLLE D (<130/80) [facility] Start: 1976 Depression Screening Depression Scre ening [facility] Start: 1976 Hepatitis B surface antibody level LDL CHOLESTEROL [facility] Start: 1976 HEPATITIS C SCREENING HEPATITIS C [facility] Start: 1976 Hepatitis C screening Hepatitis C [facility] Start: 1976 HIV SCREENING HIV SCREENING [facility] Start: 1970 Adult depression screening assessment DEPRESSION SCREENING [facility] Start: 1960 Abdominal aortic aneurysm screening Abdominal Aortic Aneurysm Screening [facility] End: 02-03-2023 ECG COMPLETE ECG COMPLETE ECG Routine Persistent atrial fibrillation (HCC) 1 Occurrences starting 02/03/2022 until 02/03/2023 [facility] Work Phone: Comment on above: 1 Occurrences starti ng 02/03/2022 until 02/03/2023 End: 06-27-2025 ECG COMPLETE ECG COMPLETE ECG Routine Atrial fibrillation, unspecified type (HCC) 1 Occurrences starting 06/27/2024 until 06/27/2025 [facility] Work Phone: Comment on above: 1 Occurrences starti ng 06/27/2024 until 06/27/2025 [facility] Immunizations Immunization Date Immunization Notes Care Provider Fa cili 08-31-2021 SARS-CoV-2 (COVID-19 ) Ad26 vaccine, recombinant Ursula Ross [facility] Comment on above: Result Comment: 2021: [id number] 07-23-2021 influenza virus vaccine, unspecified formulation Ursula Km [facility] 12-23-2020 SARS-CoV-2 (COVID-19 ) Ad26 vaccine, recombinant Ursula Ross [facility] 07-30-2018 influenza virus vaccine, unspecified formulation Ursula Ross [facility] NEGATED: Highlighted row has not occurred!07-03-2023 influenza virus vaccine, unspecified formulation Ursula Ross [facility] Kofi Payers Date Payer Category Payer Private Health Insurance [facility] AARP SUPPLEMENT [id number] 2023-Present [phone] [address] [place] [address] Indemnity [id number] 2023 Medicare MEDICARE MEDICAR E A AND B [id number] 2023-Present [phone] [address] [address] [place] [address] Medicare [id number] 2023 Medicare [id number] 2023 Unknown [id number] 2021 Unknown ANTHPAU BLUE ACCE SS PPO [id number] 2021-Present [phone] [address] [place] [address] PPO [id number]. [id number] 1959 Unknown [id number] 1958 Unknown [id number] 2.16.840.1.028594.3.579.2. 593 1958 Unknown [id number] 2.16.840.1.425215.3.579.2. 593 1958 Unknown [id number] 2.16.840.1.742244.3.579.2. 727 1958 Unknown [id number] 2.16.840.1.114233.3.579.2. 727 1958 Unknown [id number] 2.16.840.1.024786.3.579.2. 727 1958 Unknown [id number] 2.16.840.1.437464.3.579.2. 727 1958 Unknown [id number] 2.16.840.1.007519.3.579.2. 727 1958 Unknown [id number] 2.16.840.1.672910.3.579.2. 727 1958 Unknown [id number] 2.16.840.1.021053.3.579.2. 727 1958 Unknown [id number] 2.16.840.1.153157.3.579.2. 727 1958 Unknown [id number] 2.16.840.1.707071.3.579.2. 72 1958 Unknown [id number] 2.16.840.1.057170.3.579.2. 1958 Unknown [id number] 2.16.840.1.522221.3.579.2. 72 1958 Unknown [id number] 2.16.840.1.511979.3.579.2. 1958 Unknown [id number] 2.16.840.1.847512.3.579.2. 1958 Unknown [id number] 2.16.840.1.522669.3.579.2. 1958 Unknown [id number] 2.840.1.640790.3.579.2. 1958 Unknown [id number] 2.16.840.1.046235.3.579.2. 1958 Unknown [id number] 2.16.840.1.451609.3.579.2 1958 Unknown [id number] 2.16.840.1.482323.3.579.2. 1958 Unknown [id number] 2.840.1.380652.3.579.2. 1958 Unknown [id number] 2.16.840.1.264002.3.579.2. 72 1958 Unknown [id number] 2.16.840.1.490426.3.579.2. 1958 Unknown [id number] 2.16.840.1.908134.3.579.2. 1958 Unknown [id number] 2.16.840.1.283919.3.579.2. 1958 Unknown [id number] 2.16.840.1.186773.3.579.2. 727 1958 Unknown [id number] 2.16.840.1.504872.3.579.2. 727 1958 Unknown [id number] 2.16.840.1.450216.3.579.2. 727 1958 Unknown [id number] 2.16.840.1.628021.3.579.2. 727 1958 Unknown [id number] 2.16.840.1.108434.3.579.2. 727 1958 Unknown [id number] 2.16.840.1.115685.3.579.2. 727 1958 Unknown [id number] 2.16.840.1.985602.3.579.2. 727 1958 Unknown [id number] 2.16.840.1.081195.3.579.2. 727 1958 Unknown [id number] 2.16.840.1.752235.3.579.2. 727 1958 Unknown [id number] 2.16.840.1.087932.3.579.2. 727 Social History Date Type Detail Facility Start: 08-25-2014 End: 03-26-2024 Tobacco smoking status NHIS Ex-smoker [facility] Comment on above: Quit in 2013 after M I quit age 53 (39 pack years) Start: 10-25-1957 End: 08-09-2014 History of tobacco use Current smoker [facility] Start: 10-25-1957 End: 08-09-2014 History of tobacco use Cigarette Smoker [facility] Start: 08-25-2014 End: 09-23-2020 Cigarettes smoked current (pack per day) - Reported 0.5 [facility] Start: 08-25-2014 Tobacco use and exposure Smokeless tobacco non-user [facility] Start: 02-03-2022 Alcohol intake Current drinke r of alcohol (finding) [facility] Start: 1960 Sex Assigned At Not on file C [facility] Start: 01-24-2022 End: 02-03-2022 Exposure to SARS-CoV-2 (event) Not sure [facility] Tobacco smoking status No Smokin g Status Entered [facility] Start: 09-23-2020 End: 02-03-2022 Sex Assigned At Male [facility] Start: 04-01-2022 Tobacco smoking status Never s moked tobacco (finding) [facility] Tobacco smoking status Never [facility] Comment on above: Quit in 2013 after M I quit age 53 (39 pack years) Medical Equipment Procedure Code Equipment Code Equipment Origin al Text Equipment Identifier Dates Lancets, See Instructions, EA, Lancets, to check BS once daily E11.9, Supply Start: 2024 Lancets, See Instructions, 100 lancet(s), 0, Lancets, to check BS once daily E11.9, [id number], Supply, 179, cm, 03/26/24 10:53:00 EDT, Height/Length Dosing, 86, kg, 03/26/24 10:53:00 EDT, Weight Dosing Start: 2024 One Touch Ultra 2 Test Strips, See Instructions, Supply Start: 2024 One Touch Ultra 2 Test Strips, See Instructions, 100 strip(s), 0, One Touch Ultra 2 Glucometer Test Strips, to check BS once daily E11.9, [id number], Supply, 179, cm, 03/26/24 10:53:00 EDT, Height/Length Dosing, 86, kg, 03/26/24 10:53:00 EDT, Weight Dosing Start: 2024 Goals Date Patient Goal Desired Activity /State 12-28-2023 Functional Status Date Assessment Result Facility 08-16-2023 Functional Status N/A [facility] [place] 04-01-2022 Functional Status Telehealth Patient Oral [facility] Clinical Notes 02-03-2022 to 01-25-2024 RadiologyRadiologyRadiologyRadiologyRadiologyRadiologyLaboratoryRadiologyLaborat oryRadiologyLaboratoryRadiologyLaboratoryRadiologyRadiologyLaboratoryRadiologyLa boratoryRadiologyLaboratoryRadiology Note Date & Type Note Facility 01-25-2024 Hospital Discharge instructions Follow Up Care 01/25/2024 12:17:38 With:Tj BURTON, Ana Rivas, ONC Address: [address] [address] [phone] When: Unknown Comments:cbc, cmp, iron studies in 3mo and 6mofollow-up in 6mo with [facility] [employer] [facility] 12-29-2023 Note LDL > 70 therefore c ontinue lipitor 80 mg and will add zetia 10 mg daily Repeat lipid level before next appt in about 3-6 months [facility] 12-29-2023 Note Hypertension is typi jimmie stable with review of his home b/p log. Definitely has white coat syndrome Continue norvasc, clonidine, lisinopril and toprol [facility] 12-29-2023 Note Coronary artery dise ase is stable Continue GDMT- ASA, lipitor, imdur, toprol, and ranexa continue risk factor modifications- heart healthy diet, regular exercise as tolerated and continue all medications. [facility] 12-29-2023 Note Rate stable with top rol Anticoagulation with eliquis and denied any bleeding tendencies. [facility] 12-29-2023 Note Order ABD Aorta US i n 6 months to re-evalulate infrarenal AAA. [facility] 12-29-2023 Hospital Discharge instructions Follow Up Care 12/29/2023 11:16:26 With:Tj BURTON, Ana Rivas, ONC Address: [address] [address] [phone] When: Unknown Comments:IV Injectafer x2B12 injections weekly x4, then monthlycbc, cmp, iron studies in 8wksfollow-up in 8wks with [facility] [employer] [facility] 12-29-2023 Note UTP CARDIOLOGY PROGR ESS [...] of an abnormal stress test that showed SURVEILLANCE ANALYST of the RCA with filling via left to right collaterals. He also had a 70% stenosis in a diagonal branch (the prior report mentions that it is not amenable to intervention). At that time left-ventricular gram showed normal left ventricular ejection fraction at 60%. 2. Paroxysmal atrial fibrillation, status post ablation in 2017 at the [facility]. He also had prior cardioversion. He is [...] episodes of atrial fibrillation. He has a App Anniedia machine that he uses to transmit ECG. [...] 2 seconds. Neurol (more content not included)... [facility] 12-29-2023 Note Patient here for 6 m [...] All other systems reviewed and are negative. [facility] 12-29-2023 Note HTN management with goal b/p < 130/80 Monitor b/p at home Routine monitoring- will repeat Echocardiogram in 6 months with f/u with Dr Gore. D/W pt that he is to call 911 for sharp, tearing chest pain or back pain, call office for b/p consistently > 130/80 and he voiced understanding [facility] 08-29-2023 Note Chief Complaint consultation for positive [...] 28.0-28.9,adult BPH (benign prostatic hyperplasia) CAD in [place] artery Controlled type 2 diabetes mellitus without [...] mg= 2 tab(s (more content not included)... [facility] Comment on above: Result Comment: Yun jay Signed By: WILLIAM NIELSON, Jose Luis Jin\Date [...] include: ?8 oz (237 mL) of milk, zgvpndu-dgayltcqglok-gsxqv milk, and calcium-fortifiedfruit juice. Calcium-fortified means that [...] ?Spinach (cooked), rhubarb, beets, sweet potatoes, and Georgian chard. ?Peanuts. ?Potato chips, turkish fries, and baked potatoes with skin on. ?Nuts and nut products. ?Chocolate. If you regularly take a diuretic medicine, make sure to eat at least 1 or 2 servings of fruits or vegetables that are high in potassium each day. These include: ?Avocado. ?Banana. ?[place], prune, carrot, or tomato juice. ?Baked potato. [...] magnesium, fish oil, or vitamin B6. Take jwlm-jpx-ouowvou and prescription medicines only as told by [...] Casseroles. Pizza. Lasagna. Frozen meals. Potato chips. Bangladeshi fries. The items listed above may not [...] provider. Document Revised: 06/13/2022 Document Reviewed: 06/13/2022 [employer] Patient Education 2022 appAttach. Follow Up Care 08/08/2023 13:37:21 With:Teo NIELSON, SHERRY Nicole, URO Address: When: Unknown Comments:LANDRY [facility] 06-21-2023 Note ID Cardiology - [facility] Subjective Marcelle Deutsch is a 63 y.o. year old male patient being seen for Follow-up (6 month F/U) Patient Active Problem List Diagnosis Abnormal stress test Atrial fibrillation ([facility]) CAD (coronary artery disease) Coronary arteriosclerosis Chronic [...] of an abnormal stress test that showed SURVEILLANCE ANALYST of the RCA with filling via left to right collaterals. He also had a 70% stenosis in a diagonal branch (the prior report mentions that it is not amenable to intervention). At that time left-ventricular gram showed normal left ventricular ejection fraction at 60%. 2. Paroxysmal atrial fibrillation, status post ablation in 2017 at the [facility]. He also had prior cardioversion. He is [...] episodes of atrial fibrillation. He has a Arsanisa machine that he uses to transmit ECG. [...] mg) by mouth (more content not included)... [facility] 01-04-2023 Note CARDIAC STRESS TEST Requesting Physician: [...] and reported myocardial perfusion scan findings. [facility] 04-01-2022 Hospital Discharge instructions Patient Education 04/01/2022 [...] quitting, ask your health care provider. Take wppj-fqc-zcrxdqw and prescription medicines only as told by [...] 10/07/2014 Document Revised: 05/27/2019 Document Reviewed: 05/03/2019 [employer] Patient Education 2020 appAttach. 04/01/2022 13:38:40 Hyperglycemia Hyperglycemia Hyperglycemia occurs when [...] or polycystic ovarian syndrome (PCOS). Being of Haitian-Martiniquais, -Haitian, /, or / descent. What are the [...] these instructions at home: General instructions Take izfv-qps-qyugrho and prescription medicines only as told by [...] 03/28/2002 Document Revised: 06/19/2017 Document Reviewed: 06/19/2017 [employer] Patient Education 2020 appAttach. 04/01/2022 13:38:33 Atrial Fibrillation Atrial Fibrillation Atrial [...] may be diagnosed with: Electrocardiogram (ECG). 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 This device records your heartbeats for 24 [...] 10/02/2006 Document Revised: 11/22/2018 Document Reviewed: 11/23/2018 [employer] Patient Education 2020 appAttach. 04/01/2022 13:38:29 Pinched Nerve Pinched Nerve A [...] work. Follow these instructions at home: Take jbsn-ccr-ggclwkg and prescription medicines only as told by [...] leg, or the back or neck. Take kpko-lix-xpzbgbj and prescription medicines only as told by [...] 09/22/2003 Document Revised: 10/19/2018 Document Reviewed: 10/16/2018 [employer] Patient Education miiCard. [facility] [place] 02-03-2022 Note HNO ID: [id number] Author: Jannet Gonzalez MD Service: ? Author Type: Physician Type: Progress Notes Filed: 02/03/2022 9:58 AM Note Text: [facility] [place] Emiliano Plascencia Department of Cardiovascular Medicine SECTION OF CARDIAC PACING and ELECTROPHYSIOLOGY OUTPATIENT VISIT DATE February 03, 2022 OUTPATIENT VISIT TYPE CONSULTATION PRIMARY CARE PHYSICIAN: Mark Browning DO [address] [place] [address] CHIEF COMPLAINT: PAF HISTORY OF PRESENT ILLNESS [...] he is in SR. He denies syncope. [id number] (HTN, CAD, DM) tolerating Xarelto PAST MEDICAL HISTORY Diagnosis Date - Atrial fibrillation (HCC) 2013 - CAD (coronary artery disease) 09/02/2014 - Diabetes mellitus (HCC) - Dyslipidemia - Hypertension - Metabolic syndrome PAST SURGICAL HISTORY Procedure Laterality Date - AFIB PVI W/COMPL EP STUDY 07/10/2017 - CARDIAC CATH 09/02/2014 SURVEILLANCE ANALYST of proximal RCA. 70% ostial D1. [...] patient General: L (more content not included)... [facility] Evaluation + Plan note No data available for this section [facility] [place] Evaluation + Plan note Future Appointments Appointment Date:01/03/2024 08:00:00 AM Scheduled Provider: Location:[facility] Appointment Type:FM Medicare Wellness Welcome Appointment Date:01/03/2024 08:40:00 AM Scheduled Provider:Ursula Love MD Location:[facility] Appointment Type: Open Diagnostic Tests PendingPSA Free & Total 07/03/23Microalbumin Level Urine 07/03/23U Protein/Creat Ratio 07/03/23 [facility] Evaluation + Plan note Future Appointments Appointment Date:01/03/2024 08:00:00 AM Scheduled Provider: Location:[facility] Appointment Type:FM Medicare Wellness Welcome Appointment Date:01/03/2024 08:40:00 AM Scheduled Provider:[facility] Evaluation + Plan note Future Appointments Appointment Date:08/29/2023 02:20:00 PM Scheduled Provider:Jose Luis THOMAS MD [facility] Appoint[facility] Type: Appointment Date:01/03/2024 08:00:00 AM Scheduled Provider: [facility] Type:FM Medicare Wellness Welcome Appointment Date:01/03/2024 08:40:00 AM Scheduled Provider:Ursula Love MD [facility] Type: Open Diagnostic Tests PendingUrine Culture 08/04/23 Future Scheduled TestsCT Abdomen/Pelvis w/o Contrast 08/02/23 [facility] Evaluation + Plan note Future Appointments Appointment Date:08/29/2023 02:20:00 PM Scheduled Provider:Jose Luis THOMAS MD [facility] Appointment Type: Appointment Date:01/03/2024 08:00:00 AM Scheduled Provider: [facility] Type:FM Medicare Wellness Welcome Appointment Date:01/03/2024 08:40:00 AM Scheduled Provider:Ursula Love MD [facility] Evaluation + Plan note Future Appointments Appointment Date:08/29/2023 02:20:00 PM Scheduled Provider:Jose Luis THOMAS MD [facility] Appointment Type: Appointment Date:01/03/2024 08:00:00 AM Scheduled Provider: Location:[facility] Appointment Type:FM Medicare Wellness Welcome Appointment Date:01/03/2024 08:40:00 AM Scheduled Provider:Ursula Love MD [facility] Future Scheduled TestsUS Aorta 08/08/24 [facility] Evaluation + Plan note Future Appointments Appointment Date:01/03/2024 08:00:00 AM Scheduled Provider: [facility] Type[facility]FM Medicare Wellness Welcome Appointment Date:01/03/2024 08:40:00 AM Scheduled Provider:Ursula Love MD Location:[facility] Appointment Type: Open Future Scheduled TestsUS Aorta 08/08/24 [facility] [place] Evaluation + Plan note Future Appointments Appointment Date:12/17/2024 08:00:00 AM Scheduled Provider: Location:[facility] Appointment Type:FM Medicare Wellness Subsequent Diagnostic Tests PendingHCV Antibody RFX to Quant PCR 12/18/23 Future Scheduled TestsCT Chest, Low Dose Screening 12/18/23US Aorta 08/08/24 [facility] Evaluation + Plan note Future Appointments Appointment Date:03/25/2024 10:45:00 AM Scheduled Provider:Ursula Love MD Location:[facility] Appointment Type: Open Appointment Date:12/17/2024 08:00:00 AM Scheduled Provider: Location:[facility] Appointment Type:FM Medicare Wellness Subsequent Future Scheduled TestsUS Aorta 08/08/24 [facility] Evaluation + Plan note Future Appointments Appointment Date:01/25/2024 09:00:00 AM Scheduled Provider:Ana Kumar [facility] Office Visit [facility] ([place]) Appointment Date:03/25/2024 10:45:00 AM Scheduled Provider:Ursula Love MD Location:[facility] Appointment Type: Open Appointment Date:12/17/2024 08:00:00 AM Scheduled Provider: Location:[facility] Appointment Type:FM Medicare Wellness Subsequent Diagnostic Tests PendingImmunofixation Serum 01/16/24Free K+L Lt Chains,Qn,S 01/16/24Protein Electrophoresis 01/16/24 Future Scheduled TestsUS Aorta 08/08/24 [facility] Evaluation + Plan note Future Appointments Appointment Date:02/01/2024 02:30:00 PM Scheduled Provider: Location:.[facility]COLOGY Appointment Type:ONC Injection (FT) Appointment Date:02/08/2024 02:30:00 PM Scheduled Provider: [facility] Type:ONC Injection ([place]) Appointment Date:02/15/2024 02:00:00 PM Scheduled Provider: Location:[facility] Appointment Type:ONC Injection (FT) Appointment Date:03/14/2024 10:15:00 AM Scheduled Provider:Ana Kumar Location:.[facility]COLOG[facility] Appointment Type:ONC Office Visit 30 (FT) Appointment Date:03/14/2024 10:45:00 AM Scheduled Provider: Location:.[facility]COLOG[facility] Appointment Type:ONC Injection (FT) Appointment Date:03/25/2024 10:45:00 AM Scheduled Provider:Ursula Love MD [facility] Type: Open Appointment Date:12/17/2024 08:00:00 AM Scheduled Provider: Location:[facility] Appointment Type: Medicare Wellness Subsequent Future Scheduled TestsCBC w/ Auto Diff 03/21/24Comprehensive Metabolic Panel 03/21/24Ferritin 03/21/24Iron Level 03/21/24Iron Percent Saturation 03/21/24Transferrin 03/21/24US Aorta 08/08/24 [facility] Evaluation + Plan note Future Appointments [...] Date:03/25/2024 10:45:00 AM Scheduled Provider:Ursula Love MD [facility] Type:FM Open Appointment Date:04/11/2024 02:00:00 PM [...] (FT) Appointment Date:12/17/2024 08:00:00 AM Scheduled Provider: Location:[facility] Appointment Type: Medicare Wellness Subsequent Appointment Date:12/19/2024 [...] 03/21/24Iron Percent Saturation 03/21/24Transferrin 03/21/24US Aorta 08/08/24 [facility] Evaluation + Plan note Future Appointments Appointment Date:02/15/2024 01:00:00 PM Scheduled Provider: Location:.[facility]COLOG[facility] Appointment Type:ONC Injectafer (FT) Appointment Date:02/15/2024 02:00:00 PM Scheduled Provider: Location:[facility] Appointment Type:ONC Injection (FT) Appointment Date:03/14/2024 10:15:00 AM Scheduled Provider:Ana Kumar Location:.ONCOLOGY Appointment Type:ONC Office Visit 30 (FT) Appointment Date:03/14/2024 10:45:00 AM Scheduled Provider: Location:[facility] Appointment Type:ONC Injection (FT) Appointment Date:03/25/2024 10:45:00 AM Scheduled Provider:Ursula Love MD Location:[facility] Appointment Type: Open Appointment Date:04/11/2024 02:00:00 PM [...] (FT) Appointment Date:12/17/2024 08:00:00 AM Scheduled Provider: Location:[facility] Appointment Type: Medicare Wellness Subsequent Appointment Date:12/19/2024 [...] 03/21/24Iron Percent Saturation 03/21/24Transferrin 03/21/24US Aorta 08/08/24 [facility] Evaluation + Plan note Future Appointments Appointment Date:03/14/2024 10:15:00 AM Scheduled Provider:Ana Kumar [facility] Type:ONC Office Visit 30 (FT) Appointment Date:03/14/2024 10:45:00 AM Scheduled Provider: Location:.[facility]COLOG[facility] Appointment Type:ONC Injection (FT) Appointment Date:03/25/2024 10:45:00 AM Scheduled Provider:Ursula Love MD Location:[facility] Appointment Type:FM Open Appointment Date:04/11/2024 02:00:00 PM [...] (FT) Appointment Date:12/17/2024 08:00:00 AM Scheduled Provider: Location:[facility] Appointment Type: Medicare Wellness Subsequent Appointment Date:12/19/2024 [...] 03/11/24Iron Percent Saturation 03/11/24Transferrin 03/11/24US Aorta 08/08/24 [facility] Evaluation + Plan note Future Appointments Appointment Date:03/14/2024 10:15:00 AM Scheduled Provider:Ana Kumar Location:.[facility]COLOG[facility] Appointment Type:ONC Office Visit 30 (FT) Appointment Date:03/14/2024 10:45:00 AM Scheduled Provider: Location:.[facility]COLOG[facility] Appointment Type:ONC Injection (FT) Appointment Date:03/26/2024 10:45:00 AM Scheduled Provider:Ursula Love MD Location:[facility] Appointment Type: Open Appointment Date:04/11/2024 02:00:00 PM Scheduled Provider: [facility] Type:ONC Injection (FT) Appointment Date:05/09/2024 02:00:00 [...] (FT) Appointment Date:12/17/2024 08:00:00 AM Scheduled Provider: Location:[facility] Appointment Type: Medicare Wellness Subsequent Appointment Date:12/19/2024 02:15:00 PM Scheduled Provider: Location:[facility] Appointment Type:ONC Injection (FT) Appointment Date:01/16/2025 02:05:00 PM Scheduled Provider: Location:[facility] Appointment Type:ONC Injection (FT) Appointment Date:02/13/2025 02:15:00 PM Scheduled Provider: Location:.ONCOLOGY Appointment Type:ONC Injection (FT) Appointment Date:03/13/2025 02:15:00 PM Scheduled Provider: Location:.ONCOLOGY Appointment Type:ONC Injection (FT) Future Scheduled TestsUS Aorta 08/08/24 [facility] Evaluation + Plan note Future Appointments Appointment Date:03/26/2024 10:45:00 AM Scheduled Provider:Ursula Love MD Location:[facility] Appointment Type:FM Open Appointment Date:04/11/2024 02:00:00 PM [...] (FT) Appointment Date:12/17/2024 08:00:00 AM Scheduled Provider: Location:[facility] Appointment Type: Medicare Wellness Subsequent Appointment Date:12/19/2024 [...] Percent Saturation 09/07/24Transferrin 06/07/24Transferrin 09/07/24US Aorta 08/08/24 [facility] Evaluation + Plan note Future Appointments [...] (FT) Appointment Date:12/17/2024 08:00:00 AM Scheduled Provider: Location:[facility] Appointment Type:FM Medicare Wellness Subsequent Appointment Date:12/19/2024 [...] Percent Saturation 09/07/24Transferrin 06/07/24Transferrin 09/07/24US Aorta 08/08/24 [facility] Evaluation + Plan note Future Appointments [...] (FT) Appointment Date:12/17/2024 08:00:00 AM Scheduled Provider: Location:[facility] Appointment Type:FM Medicare Wellness Subsequent Appointment Date:12/19/2024 [...] Percent Saturation 09/07/24Transferrin 06/07/24Transferrin 09/07/24US Aorta 08/08/24 [facility] Evaluation + Plan note Future Appointments Appointment Date:07/04/2024 02:00:00 PM Scheduled Provider: Location:.ONCOLOGY [...] (FT) Appointment Date:12/17/2024 08:00:00 AM Scheduled Provider: Location:[facility] Kofi Appointment Type: Medicare Wellness Subsequent [...] Percent Saturation 09/07/24Transferrin 06/07/24Transferrin 09/07/24US Aorta 08/08/24 [facility] Evaluation + Plan note Future Appointments Appointment Date:08/01/2024 02:00:00 PM Scheduled Provider: Location:.ONCOLOGY Appointment Type:ONC Injection (FT) Appointment Date:08/29/2024 02:00:00 PM [facility]uled [facility] Type:[facility]C Injection (FT) Appointment Date:09/09/2024 11:00:00 AM Scheduled Provider:Ana Kumar Location:.ONCOLOGY Appointment Type:ONC Office Visit 30 (FT) Appointment Date:09/26/2024 02:00:00 PM Scheduled [facility]: [facility] App[facility] Type:ONC Injection (FT) Appointment Date:10/24/2024 02:15:00 PM Scheduled Provider: Location:.ONCOLOGY Appointment Type:ONC Injection (FT) Appointment Date:11/21/2024 02:15:00 PM Scheduled Provider: Location:.ONCOLOGY Appointment Type:ONC Injection (FT) Appointment Date:12/17/2024 08:00:00 AM Scheduled Provider: Location:[facility] Kofi Appointment Type: Medicare Wellness Subsequent [...] Percent Saturation 09/07/24Transferrin 06/07/24Transferrin 09/07/24US Aorta 08/08/24 [facility] Evaluation note Diagnosis Persistent atrial fibrillation (HCC)- Primary Atrial [facility] Atrial fibrillation, unspecified type (HCC)- Primary documented in this encounter [facility] Discharge instructions No data available for this section [facility] Progress note No data available for this section [facility] Reason for referral (narrative)* Outpatient Procedure (Routine) - Authorized Specialty Diagnoses / Procedures Referred By Contac t Referred To Contact [facility] Diagnoses Persistent atrial fibrillation (HCC) Procedures ECG COMPLETE ECG ROUTINE ECG W/LEAST 12 LDS W/I&R Jannet Gonzalez MD [address] [place] [address] [place] [address] Referral ID Status Reason Start Date Expiration Date Visits Requested Visits Authorized [id number] Authorized Auto-Generat ed Referral 02/03/2022 02/03/2023 1 1 [facility] for referral (narrative)* Outpatient Procedure (Routine) - Authorized Specialty Diagnoses / Procedures Referred By Contac t Referred To Contact [facility] Diagnoses Atrial fibrillation, unspecified type (HCC) Procedures ECG COMPLETE ECG ROUTINE ECG W/LEAST 12 LDS W/I&R Jannet Gonzalez MD [address] [place] [address] [facility] [place] [address] [place] [address] Referral ID Status Reason Start Date Expiration Date Visits Requested Visits Authorized [id number] Authorized Auto-Generat ed Referral 06/27/2024 06/27/2025 1 1 [facility] Summary Purpose Family History No [...] FoundDocuments on File Type Date Recorded Patient 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 Advance Directive(s) 07/10/2017 5:38 AM [...] section and content) DATE CREATED AUTHOR 10/08/2020 [facility] DATE CREATED AUTHOR AUTHOR'S ORGANIZ ATION 02/05/2022 [facility] DATE CREATED AUTHOR AUTHOR'S ORGANIZ ATION 01/17/2023 [facility] DATE CREATED AUTHOR AUTHOR'S ORGANIZ ATION 03/12/2024 [facility] DATE CREATED AUTHOR AUTHOR'S ORGANIZ ATION 03/13/2024 [facility] DATE CREATED AUTHOR AUTHOR'S ORGANIZ ATION 06/05/2024 [facility] DATE CREATED AUTHOR AUTHOR'S ORGANIZ ATION 06/30/2024 [facility] DATE CREATED AUTHOR AUTHOR'S ORGANIZ ATION 07/07/2024 [facility] Source Comments (unrecognize d section and content) In the event this informatio n is protected by the Federal Confidentiality of Alcohol and Drug Abuse Patient Records regulations: The Federal rules restrict any use of the information to criminally investigate or prosecute any alcohol or drug abuse patient.[facility] the event this information is protected by the Federal Confidentiality of Alcohol and Drug Abuse Patient Records regulations: The Federal rules restrict any use of the information to criminally investigate or prosecute any alcohol or drug abuse patient.[facility] Care Teams (unrecognized sec tion and content) 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 [employer] [facility]. provides no warranty or guarantee of the accuracy or completeness of information in this document.
== END 2024-07-10 13:52 | disposition home or self-care (01) ==
LOC: RAD 13:53
PROVIDERS: PCP Family Medicine; Visit Provider Nurse Practitioner
DX: M47.816 Spondylosis without myelopathy or radiculopathy, lumbar region (principal); M48.061 Spinal stenosis, lumbar region without neurogenic claudication; I71.40 Abdominal aortic aneurysm, without rupture, unspecified
CPT/HCPCS: 72114

== ENCOUNTER 2024-07-11 09:06 | Outpatient (OUT) | payer MEDICARE, SELFPAY ==
[2024-07-11 10:04] LABS: Cholesterol 95 mg/dL (<=200); HDL Cholesterol 41 mg/dL (40-60); Triglycerides 71 mg/dL (<=150); VLDL CHOLESTEROL 14.2 mg/dL
[2024-07-11 10:05] LABS: Chol HDL Ratio 2.3
== END 2024-07-11 09:07 | disposition home or self-care (01) ==
LOC: LAB 09:15
PROVIDERS: PCP Family Medicine; Visit Provider Nurse Practitioner
DX: I25.10 Atherosclerotic heart disease of native coronary artery without angina pectoris (principal); E78.5 Hyperlipidemia, unspecified
CPT/HCPCS: 36415; 80061

== ENCOUNTER 2024-07-16 09:08 | Outpatient (OUT) | payer MEDICARE, SELFPAY ==
--- NOTE | 2024-07-16 09:22 | CT_ITS ---
[address] [address] Patient Name: MARCELLE DEUTSCH MRN: [id number] date: 1960 Sex: M Assigned Patient Location: CT Current Patient Location: CT Accession/Order Number: [id number] Exam Date: 07/16/2024 09:35 Report Date: 07/16/2024 10:19 At the request of: BLANKA GORE Procedure: CT abdomen pelvis w con EXAM: CT abdomen pelvis w con HISTORY: Aneurysm Of The Ascending Aorta I71.21 COMPARISON: None. TECHNIQUE: Following intravenous administration of 1 cc of Omnipaque 350, axial soft tissue windows of the abdomen and pelvis were performed with coronal and sagittal reformats. CT dose reduction technique was used including Automated Exposure Control. Findings: ABDOMEN: The liver, gallbladder, spleen, pancreas, and adrenal glands are unremarkable. Mild nonossific bilateral perinephric fat stranding. No renal stones or collecting system dilatation. Within the lower pole of the right kidney there is a 1.0 cm cyst. The visualized portions of the bilateral ureters are nondilated. Evaluation of the bowel is limited given the absence of oral contrast. There are colonic diverticula. No bowel obstruction. The appendix is nondilated. There is aneurysmal dilatation of the infrarenal abdominal aorta measuring upwards of 3.5 cm. There is also aneurysmal dilatation of the proximal left common iliac artery measuring upwards of 2.4 cm. Moderate atherosclerotic disease. No enlarged abdominal lymph nodes nodes or free abdominal fluid. Pelvis: Unremarkable bladder. The prostate is nonenlarged. No enlarged pelvic lymph nodes or free pelvic fluid. No aggressive sclerotic or lytic osseous lesions. Grade 1 anterolisthesis of L5 on S1. Mild multilevel degenerative spondylosis. CT/CT abdomen pelvis w con IMPRESSION: 1. No acute abdominal or pelvic abnormality. 2. Aneurysmal dilatation of the infrarenal abdominal aorta and left common iliac artery. 3. Other nonemergent findings, as described above. Electronically authenticated by: MEGAN JIANG Date: 07/16/2024 10:19
--- NOTE | 2024-07-16 09:22 | CT_ITS ---
[address] [address] Patient Name: MARCELLE DEUTSCH MRN: [id number] date: 1960 Sex: M Assigned Patient Location: CT Current Patient Location: CT Accession/Order Number: [id number] Exam Date: 07/16/2024 09:35 Report Date: 07/16/2024 13:32 At the request of: BLANKA GORE Procedure: CT chest w con EXAMINATION: CT chest w con HISTORY: Aneurysm Of The Ascending Aorta I71.21 COMPARISON: No relevant comparison available. TECHNIQUE: Multi-planar CT images were created with IV contrast. Axial, Coronal, and Sagittal images. Dose reduction techniques were achieved by using automated exposure control and/or adjustment of mA and/or kV according to patient size and/or use of iterative reconstruction technique. FINDINGS: LUNGS: No visible pulmonary disease. PLEURA: No mass, effusion, or pneumothorax. VASCULATURE: Normal postcontrast opacification of the central pulmonary arterial tree with no filling defects LARON: No mass or adenopathy. MEDIASTINUM: No mass or adenopathy. CARDIAC: No enlargement or pericardial effusion Coronary arteries: Heavy calcifications AORTA: 4.2 cm aneurysm of the ascending thoracic aorta. Dilation of the aortic arch up to 3.4 cm. Aneurysm of the descending thoracic aorta measuring up to 4.1 cm. Extensive calcific atherosclerosis with no dissection CHEST WALL: No mass or axillary adenopathy. BONES: No bone lesion or fracture. LIMITED ABDOMEN: No suspicious findings. Limited images of the upper abdomen. OTHER: Negative. CT/CT chest w con IMPRESSION: 4.2 cm ascending thoracic and 4.1 cm descending thoracic aortic aneurysms with underlying calcific atherosclerosis Electronically authenticated by: JANNET MARQUEZ Date: 07/16/2024 13:32
[2024-07-16 09:25] LABS: Estimated GFR (African America >60 (>=60); Estimated GFR (Non-African Ame >60 (>=60)
== END 2024-07-16 09:09 | disposition home or self-care (01) ==
LOC: CT 09:08
PROVIDERS: PCP Family Medicine; Visit Provider Internal Medicine 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al Cardiology
DX: I71.43 Infrarenal abdominal aortic aneurysm, without rupture (principal); I71.21 Aneurysm of the ascending aorta, without rupture; Z01.818 Encounter for other preprocedural examination; I71.23 Aneurysm of the descending thoracic aorta, without rupture
CPT/HCPCS: 36415; 71260; 74177; 82565; Q9967

== ENCOUNTER 2024-07-18 08:42 | Outpatient (OUT) | payer MEDICARE, SELFPAY ==
--- OUTSIDE RECORDS SUMMARY | 2024-07-18 08:47 | XMS_ITS | CCD ---
Author Organization [facility] Care Team Providers Care Conical Mixer Name Role Phone Mark Browning Primary Care Provider Jannet Gonzalez MD Unavailable Ursula Love Primary Care Physician [phone] URSULA LOVE Admitting Unavailable URSULA LOVE Attending Unavailable URSULA LOVE Primary Care Unavailable URSULA LOVE Consulting Unavailable BAO, DR MOSCOSO Admitting Unavailable BAO, DR MOSCOSO Attending Unavailable URSULA LOVE Primary Care Unavailable [place], DR JANNET Parry Consulting Unavailable BAO, DR MOSCOSO Consulting Unavailable URSULA LOVE Consulting Unavailable Ursula Love Primary Care Physician Mark Browning DO Primary Care Provider Jannet Gonzalez MD Unavailable Jose Luis THOMAS Attending Unavailable Jose Luis THOMAS Attending Unavailable Ursula Love Attending Unavailable Ana Spencer Attending Unavailable Ana Spencer Attending Unavailable Ursula Love Referring Unavailable Ursula Love Attending Unavailable Ursula Love Admitting Unavailable Ursula Love Referring Unavailable Ursula Love Attending Unavailable Ursula Love ENelly Admitting Unavailable Ana Spencer Attending Unavailable Ana Spencer Admitting Unavailable Juan Antonio, TAILOR HELPERCarlo Richard Attending Unavailable Ursula Love Attending Unavailable Shelley Bruce Attending Unavailable Ursula Love ENelly Referring Unavailable Adamowsylwia, Bharath Attending Unavailable Seymourowsylwia, Bharath Admitting Unavailable Ursula Love Attending Unavailable Ursula Love ENelly Admitting Unavailable Ross, Ursula E. Attending Unavailable Ross, Ursula E. Admitting Unavailable Ursula Love E. Attending Unavailable Ursula Love E. Attending Unavailable RossUrsula E. Attending Unavailable RossUrsula E. Attending Unavailable Ross, Ursula E. Attending Unavailable Juan Antonio, TAILOR HELPER Karen L Attending Unavailable RossUrsula E. Attending Unavailable Km, Ursula E. Admitting Unavailable Juan Antonio, TAILOR HELPER Karen L Attending Unavailable Juan Antonio, TAILOR HELPER Karen L Admitting Unavailable Demboske, Ana Rivas Attending Unavailable Ursula Love E. Referring Unavailable Demboske, Ana Rivas Attending Unavailable Demboske, Ana Rivas Attending Unavailable Ursula Love ENelly Admitting Unavailable Ursula Love E. Referring Unavailable NILLJose Luis R Attending Unavailable RossUrsula Attending Unavailable Demboske, Ana Rivas Attending Unavailable Demboske, Ana Rivas Attending Unavailable Demboske, Ana Rivas Attending Unavailable Demboske, Ana Rivas Attending Unavailable Demboske, Ana Rivas Admitting Unavailable Demboske, Ana Rivas Attending Unavailable Ursula Love Attending Unavailable Ursula Love Attending Unavailable Ursula Love Attending Unavailable MOUKARBELBLANKA Attending Unavailable GOPAL, PARISA Attending Unavailable Allergies Allergy Classification Reported Allergen(s) Allergy Type Date of Onset Reaction(s) Facility (20 sources) Penicillins; 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: [penicillins] Propensity to adverse reactions to drug 4 [facility] (disorder) [facility] (1 source) Penicillins Drug allergy (disorder) 4 [facility] (1 source) Penicillins Propensity to adverse reactions to drug 4 [facility] (2 sources) No Known Medication Allergies; 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: [No Known Medication Allergies] Propensity to adverse reactions (disorder) [facility] Repository Medications Current Medications Medication Drug Class(es) [...] day(s), # 90 tab(s), Refills(s) 0, Pharmacy: [facility]/pharmacy #[id number] Start Date: 04/01/22 Stop Date: 05/01/22 [...] Refills(s) 0 Start Date: 07/03/23 Status: Ordered Comment on above: Take 1 [...] DAILY, # 90 tab(s), Refills(s) 1, Pharmacy: [facility]/pharmacy #[id number], 179, cm, 03/26/24 10:53:00 EDT, Height/Length Dosing, 86, kg, 03/26/24 10:53:00 EDT, Weight Dosing Start Date: 03/26/24 Status: Ordered Start: 07-06-2023 lisinopril 20 mg Tab See Instructions, TAKE 1 TABLET DAILY, # 90 tab(s), Refills(s) 1, Pharmacy: [facility], 178, cm, 12/18/23 13:19:00 EST, Height/Length Dosing, [...] Daily, # 90 tab(s), Refills(s) 1, Pharmacy: [facility], 178, cm, 12/19/22 9:57:00 EST, [...] Daily, # 30 tab(s), Refills(s) 0, Pharmacy: [facility]/pharmacy #[id number] Start Date: 04/01/22 Status: Ordered metFORMIN hydrochloride 500 mg oral tablet (20 sources) Biguanide Start: 4 metformin 500 mg Tab See Instructions, TAKE 2 TABLETS TWICE A DAY, # 360 tab(s), Refills(s) 1, Pharmacy: [facility], 179, cm, 03/26/24 10:53:00 EDT, Height/Length Dosing, 86, kg, 03/26/24 10:53:00 EDT, Weight Dosing Start Date: 06/19/24 Status: Ordered Start: 07-06-2023 metformin 500 mg Tab See Instructions, TAKE 2 TABLETS TWICE A DAY, # 360 tab(s), Refills(s) 1, Pharmacy: [facility], 178, cm, 12/18/23 13:19:00 EST, Height/Length Dosing, 89.1, kg, 12/18/23 13:19:00 EST, Weight Dosing Start Date: 12/19/23 Status: Ordered Start: 04-25-2023 take 2 tablets by mo uth twice daily metformin 500 mg Tab 1,000 mg = 2 tab(s), Oral, BID, TAKE TWO TABLETS BY MOUTH TWICE A DAY, # 360 tab(s), Refills(s) 1, Pharmacy: [facility], 178, cm, 12/19/22 9:57:00 EST, Height/Length Dosing, 90.4, kg, 12/19/22 9:57:00 EST, Weight Dosing Start Date: 04/25/23 Status: Ordered Start: 04-01-2022 End: 09-28-2022 take 2 tablets by mouth twice daily metformin 500 mg ER Tab 1,000 mg = 2 tab(s), Oral, BID, X 90 day(s), # 360 tab(s), Refills(s) 1, Pharmacy: [facility] Start Date: 04/01/22 Stop [...] DAILY, # 90 cap(s), Refills(s) 1, Pharmacy: [facility], 179, cm, 03/26/24 10:53:00 EDT, Height/Length Dosing, 86, kg, 03/26/24 10:53:00 EDT, Weight Dosing Start Date: 05/06/24 Status: Ordered Start: 11-20-2023 take 1 capsule by mo [facility] once daily omeprazole 20 mg Cap-DR 20 mg = 1 cap(s), Oral, Daily, # 90 cap(s), Refills(s) 1, Pharmacy: [facility], 178, cm, 08/29/23 14:28:00 EST, Height/Length Dosing, 90.8, kg, 08/29/23 14:28:00 EST, Weight Dosing Start Date: 11/20/23 Status: Ordered Start: 07-03-2023 take 1 capsule by [facility] once daily omeprazole 20 mg Cap-DR 20 mg = 1 cap(s), Oral, Daily, # 90 cap(s), Refills(s) 1, Pharmacy: [facility], 178, cm, 07/03/23 7:24:00 EDT, Height/Length Dosing, 90, kg, 07/03/23 7:24:00 EDT, Weight Dosing Start Date: 07/03/23 Status: Ordered Start: 08-29-2014 End: 09-28-2022 take 1 capsule by mouth once daily omeprazole 20 mg Cap-DR 20 mg = 1 cap(s), Oral, Daily, X 90 day(s), # 90 cap(s), Refills(s) 1, Pharmacy: [facility] Start Date: 04/01/22 Stop Date: 09/28/22 Status: Ordered Comment on above: Take 1 capsule by [facility] once daily. ProFe 180 mg oral capsule (8 sources) Start: 12-25-2023 take 1 capsule by mouth once daily ProFe 180 mg oral capsule 180 mg = 1 cap(s), Oral, Daily, # 100 cap(s), Refills(s) 0, Pharmacy: [facility]/pharmacy #[id number], 178, cm, 12/18/23 13:19:00 EST, Height/Length [...] Daily, # 10 cap(s), Refills(s) 0, Pharmacy: [facility]/pharmacy #[id number], 178, cm, 07/19/23 11:20:00 EDT, Height/Length [...] Coronary arteriosclerosis; 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: [Atherosclerotic heart disease of [place] coronary artery without angina pectoris] Onset: 4 [...] sources) Long-term current use of anticoagulant; 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: [longterm (current) use of 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] Onset: 11-28-2017 11-28-2017 Episodic Other screening for suspected conditions (not mental disorders or infectious disease) (3 sources) Cardiovascular stress test abnormal; 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: [Abnormal result of other cardiovascular function study] Onset: 08-25-2014 08-25-2014 Episodic Unclassified (1 source) Infrarenal abdominal aortic aneurysm, without rupture; 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: [Infrarenal abdominal aortic aneurysm, without rupture] Onset: 07-12-2024 Unclassified (1 source) Aneurysm of the ascending aorta, without rupture; 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: [Aneurysm of the ascending aorta, without rupture] Onset: 07-12-2024 Results Test Name Value Interpretation Reference Range Facil ity Office Visiton 07-12-2024 Follow-up visit [id number] Marcelle Deutsch 1960 M Date Provider Department Center 07/12/2024 [id number] GORE WENDY Michaels Family History Problem Relation Age of Onset Coronary artery disease Father Atrial fibrillation Father Heart attack Brother Family Status - Relation Status Age at Father Brother Level of Service:47962 ID OFFICE/OUTPATIENT ESTABLISHED MOD MDM 30 MIN Normal [facility] Orders Onlyon 07-11-2024 Orders Only [id number] Marcelle Deutsch 1960 Date Provider Department Center 07/11/2024 [id number] MONSALVE WENDY Michaels Family History Problem Relation Age of Onset Coronary artery disease Father Atrial fibrillation Father Heart attack Brother Family Status - Relation Status Age at Father Brother Normal [facility] Population Health 06-28-20 [facility] Health Case Information Case Priority: None Programs: -- Referral Source: Corporate Safety Director Referral Reason: Disease management Case Type: Chronic Care Management Risk Score: -- Case Status: Active (December 28, 2023) Date Assigned: December 19, 2023 Assigned By: Christian Hernandez Date Enrolled: December 28, 2023 Assigned Primary Personnel: Christian Hernandez Assigned Secondary Personnel: -- Case Physician: Ursula Love MD Ongoing AAA (abdominal aortic aneurysm) Aortic aneurysm BMI 28.0-28.9,adult BPH (benign prostatic hyperplasia) CAD in [place] artery Controlled type 2 diabetes mellitus without [...] CCM Program Enrollment Verbally agreed to receive [facility] services CCM Written Consent Written consent in progress CCM Verbal Consent By Self 12/28/23 07:00:00 Result Name Value Comment HIPPA Verified Type of Contact In person at home CM Preferred Spoken Language Qatari CM Preferred Written Language Qatari Preferred Communication Mode Verbal Ability to Read/Write Able to read, Able to write Preferred Salutation Preferred Method of Contact Cell Cell Phone [phone] Best Time to Visit or Contact 7-10 am Best Day to Visit or Contact No preference Appointment Reminders Patient portal, Other secured messaging Preferred Way to Send PHI Patient portal Preferred Mailing Address [address] [place] [address], [facility] Learning Style Pref Patient Verbal explanation [...] bed Support System Spouse/Significant other Primary Director Of Estate of Home Medication Self Current DME at Home No Currently Receiving Skilled Services No Skilled Service Need (more content not included)... Normal [facility] 06-11-20 [facility] Case Information Case Priority: None Programs: -- Referral Source: Corporate Safety Director Referral Reason: Disease management Case Type: Chronic Care Management Risk Score: -- Case Status: Active (December 28, 2023) Date Assigned: December 19, 2023 Assigned By: Christian Hernandez Date Enrolled: December 28, 2023 Assigned Primary Personnel: Christian Hernandez Assigned Secondary Personnel: -- Case Physician: Ursula Love MD Ongoing AAA (abdominal aortic aneurysm) Aortic aneurysm BMI 28.0-28.9,adult BPH (benign prostatic hyperplasia) CAD in [place] artery Controlled type 2 diabetes mellitus without [...] CCM Program Enrollment Verbally agreed to receive [facility] services CCM Written Consent Written consent in progress CCM Verbal Consent By Self 12/28/23 07:00:00 Result Name Value Comment HIPPA Verified Type of Contact In person at home CM Preferred Spoken Language Qatari CM Preferred Written Language Qatari Preferred Communication Mode Verbal Ability to Read/Write Able to read, Able to write Preferred Salutation MrNelly Preferred Method of Contact Cell Cell Phone [phone] Best Time to Visit or Contact 7-10 am Best Day to Visit or Contact No preference Appointment Reminders Patient portal, Other secured messaging Preferred Way to Send PHI Patient portal Preferred Mailing Address [address] [place] [address], [phone] Learning Style Pref Patient Verbal explanation Learning [...] bed Support System Spouse/Significant other Primary Director Of Estate of Home Medication Self Current DME at Home No Currently Receiving Skilled Services No Skilled Service Needs Anticipated No Barriers to Care None Home Barriers None (more content not included)... Normal [facility] 36on 06-04-2024 36 Regarding carotid duplex performed on 05/29/2024: MERVAT Kendrick MA Let them know less than 49% stenosis of both carotids- really very good- Continue all meds and we will see them next time Probably a repeat carotid in 1-3 years- unless symptoms Patient made aware via email. Normal [facility] Population Healthon 04-25-20 24 [facility] Health Case Information Case Priority: None Programs: -- Referral Source: Corporate Safety Director Referral Reason: Disease management Case Type: Chronic Care Management Risk Score: -- Case Status: Active (December 28, 2023) Date Assigned: December 19, 2023 Assigned By: Christian Hernandez Date Enrolled: December 28, 2023 Assigned Primary Personnel: Christian Hernandez Assigned Secondary Personnel: -- Case Physician: Ursula Love MD Ongoing AAA (abdominal aortic aneurysm) Aortic aneurysm BMI 28.0-28.9,adult BPH (benign prostatic hyperplasia) CAD in [place] artery Controlled type 2 diabetes mellitus without [...] CCM Program Enrollment Verbally agreed to receive [facility] services CCM Written Consent Written consent in progress CCM Verbal Consent By Self 12/28/23 07:00:00 Result Name Value Comment HIPPA Verified Type of Contact In person at home CM Preferred Spoken Language Qatari CM Preferred Written Language Qatari Preferred Communication Mode Verbal Ability to Read/Write Able to read, Able to write Preferred Salutation MrNelly Preferred Method of Contact Cell Cell Phone [phone] Best Time to Visit or Contact 7-10 am Best Day to Visit or Contact No preference Appointment Reminders Patient portal, Other secured messaging Preferred Way to Send PHI Patient portal Preferred Mailing Address [address] [place] [address], [phone] Learning Style Pref Patient Verbal explanation Learning [...] bed Support System Spouse/Significant other Primary Director Of Estate of Home Medication Self Current DME at Home No Currently Receiving Skilled Services No Skilled Service Needs Anticipated No Barriers to Care None Home Barriers None Employment Status Retired Financial Issues None Sources of Income Socia (more content not included)... Normal [facility] Ambulatory Visit Summaryon 0 03-26-2024 Ambulatory Visit Summary MARCELLE DEUTSCH Maria D :1960 Visit Date:03/26/2024 Ambulatory Visit [...] Oncology 2024 2:15 PM EST With: Where: Oncology Monday 8:00 AM EST With: Where: [facility] [place] Normal [facility] Family Medicine Office/Clini c Noteon 03-26-2024 Family [...] Daily, # 100 cap(s), Refills(s) 0, Pharmacy: [facility]acy #[id number], 178, cm, 12/18/23 13:19:00 EST, Height/Length Dosing, 89.1, kg, 12/18/23 13:19:00 EST, Weight Dosing lisinopril, See Instructions, TAKE 1 TABLET DAILY, # 90 tab(s), Refills(s) 1, Pharmacy: [facility]/pharmacy #[id number], 179, cm, 03/26/24 10:53:00 EDT, Height/Length Dosing, 86, kg, 03/26/24 10:53:00 EDT, Weight Dosing Follow-up No qualifying data available Problem List/Past Medical History Ongoing AAA (abdominal aortic aneurysm) Aortic aneurysm BMI 28.0-28.9,adult BPH (benign prostatic hyperplasia) CAD in [place] artery Controlled type 2 diabetes mellitus without [...] Others hurt by (more content not included)... [facility] Comment on above: Result Comment: Elec tronically Signed By: Ursula Love MD\.br\Date and Time Signed: 03/26/24 16:51 EDT Physician Referralon 024 Physician Referral [id number] #[id number] [facility] Population Healthon 03-22-20 24 Population Health Case Information Case Priority: None Programs: -- Referral Source: Colorist Dyer Referral Reason: Disease management Case Type: Chronic Care Management Risk Score: -- Case Status: Active (December 28, 2023) Date Assigned: December 19, 2023 Assigned By: Christina Hernandez Date Enrolled: December 28, 2023 Assigned Primary Personnel: Christian Hernandez Assigned Secondary Personnel: -- Case Physician: Ross MD, Ursula E. Problems Ongoing AAA (abdominal aortic aneurysm) Aortic aneurysm BMI 28.0-28.9,adult BPH (benign prostatic hyperplasia) CAD in [place] artery Controlled type 2 diabetes mellitus without [...] CCM Program Enrollment Verbally agreed to receive [facility] services CCM Written Consent Written consent in progress CCM Verbal Consent By Self 12/28/23 07:00:00 Result Name Value Comment HIPPA Verified Type of Contact In person at home CM Preferred Spoken Language Qatari CM Preferred Written Language Qatari Preferred Communication Mode Verbal Ability to Read/Write Able to read, Able to write Preferred Salutation MrNelly Preferred Method of Contact Cell Cell Phone [phone] Best Time to Visit or Contact 7-10 am Best Day to Visit or Contact No preference Appointment Reminders Patient portal, Other secured messaging Preferred Way to Send PHI Patient portal Preferred Mailing Address [address] [place] [address] Learning Style Pref Patient Verbal explanation Learning [...] bed Support System Spouse/Significant other Primary Director Of Estate of Home Medication Self Current DME at Home No Currently Receiving Skilled Services No Skilled Service Needs Anticipated No Barriers to Care None Home Barriers None Employment Status Retired Financial Issues None Sources of Income Social Security Pat (more content not included)... Normal [facility] Consent for Treatmenton 02-15 Consent for Treatment [id number] #[id number] Normal [facility] Oncology Progress Noteon Oncology Progress Note Chief [...] a colonoscopy done in Sep 2023 at [facility] after positive Cologuard test. This [...] Contact Information Tj NATHAN-PEMA, Ana Rivas, ONC [facility] [address] [place] [phone] Additional Instructions: cbc, cmp, iron studies in 3mo and 6mo follow-up in 6mo with [employer] Medications amLODIPine 5 mg Tab, Oral, Daily [...] (DoT), 100 (more content not included)... Normal [facility] CBC w/ Auto Diffon 4 Acanthocytes LM Ql (Bld) PRESENT Invalid Interpretation Code [facility] Comment on above: Performed By: #### 2 [id number] #### [facility] [address] [place] [address] Anisocytosis Ql (Bld) PRESENT Invalid Interpretation Code [facility] Comment on above: Performed By: #### 2 [id number] #### [facility] [address] [place] [address] Basophils/100 WBC (Bld) 0.8 % Normal 0.0-2.0 [facility] Comment on above: Performed By: #### 2 [id number] #### [facility] [address] [place] [address] Basophils/Leukocytes Auto (Bld) [Pure # fraction] 0.0 E9/L Normal 0.0-0.2 [facility] Comment on above: Performed By: #### 2 [id number] #### [facility] [address] [place] [address] Eosinophils (Bld) [#/Vol] 0.2 E9/L Normal 0.0-0.5 [facility] Comment on above: Performed By: #### 2 [id number] #### [facility] [address] [place] [address] Eosinophils/100 WBC (Bld) 3.7 % Normal 0.0-8.0 [facility] Comment on above: Performed By: #### 2 [id number] #### [facility] [address] [place] [address] Erythrocyte distribution width (RBC) [Ratio] 27.1 % High 10.9-14.2 [facility] Comment on above: Performed By: #### 2 [id number] #### [facility] [address] [place] [address] Hematocrit (Bld) [Volume fraction] 40.0 % Normal 37.7-49.0 [facility] Comment on above: Performed By: #### 2 [id number] #### [facility] [address] [place] [address] Hemoglobin (Bld) [Mass/Vol] 13.4 g/dL Low 13.5-17.5 [facility] Comment on above: Performed By: #### 2 [id number] #### [facility] [address] [place] [address] Hypochromia Auto Ql (Bld) PRESENT Invalid Interpretation Code [facility] Comment on above: Performed By: #### 2 [id number] #### [facility] [address] [place] [address] Lymphocytes (Bld) [#/Vol] 1.6 E9/L Normal 1.0-4.0 [facility] Comment on above: Performed By: #### 2 [id number] #### [facility] [address] [place] [address] Lymphocytes/100 WBC (Bld) 32.5 % Normal 14.0-50.0 [facility] Comment on above: Performed By: #### 2 [id number] #### [facility] [address] [place] [address] MCH (RBC) [Entitic mass] 27.3 pg Normal 27.0-34.0 [facility] Comment on above: Performed By: #### 2 [id number] #### [facility] [address] [place] [address] MCHC (RBC) [Mass/Vol] 33.6 g/dL Normal 31.4-36.0 [facility] Comment on above: Performed By: #### 2 [id number] #### [facility] [address] [place] [address] MCV (RBC) [Entitic vol] 81.4 fL Normal 80.0-100.0 [facility] Comment on above: Performed By: #### 2 [id number] #### [facility] [address] [place] [address] Monocytes (Bld) [#/Vol] 0.4 E9/L Normal 0.2-1.0 [facility] Comment on above: Performed By: #### 2 [id number] #### [facility] [address] [place] [address] Neutrophils (Bld) [#/Vol] 2.7 E9/L Normal 2.0-7.5 [facility] Comment on above: Performed By: #### 2 [id number] #### [facility] [address] [place] [address] Neutrophils/100 WBC (Bld) 55.1 % Normal 36.0-75.0 [facility] Comment on above: Performed By: #### 2 [id number] #### [facility] [address] [place] [address] Ovalocytes LM Ql (Bld) PRESENT Invalid Interpretation Code [facility] Comment on above: Performed By: #### 2 [id number] #### [facility] [address] [place] [address] Platelet mean volume (Bld) [Entitic vol] 9.9 fL Normal 6.4-10.8 [facility] Comment on above: Performed By: #### 2 [id number] #### [facility] [address] [place] [address] Platelets (Bld) [#/Vol] 116.0 E9/L Low 150.0-500.0 [facility] Comment on above: Performed By: #### 2 [id number] #### [facility] [address] [place] [address] RBC (Bld) [#/Vol] 4.9 E12/L Normal 4.3-5.9 [facility] Comment on above: Performed By: #### 2 [id number] #### [facility] [address] [place] [address] RBC size Nom (Bld) SEE MORPHOLOGY Invalid Interpretation Code [facility] Comment on above: Performed By: #### 2 [id number] #### [facility] Laboratory [address] [place] [address] WBC corrected for nucl RBC Auto (Bld) [#/Vol] 5.0 E9/L Normal 4.0-11.0 [facility] Comment on above: Performed By: #### 2 [id number] #### [facility] [address] [place] [address] CHEMISTRYOrdered By: SYSTEM SYSTEM on 03-12-2024 Albumin [...] 03-12-2024 Albumin [Mass/Vol] 4.3 g/dL Normal 3.3-5.0 [facility] Comment on above: Performed By: #### 2 [id number] #### [facility] [address] [place] [address] Albumin/Globulin (S) [Mass conc ratio] 2.3 High 1.1-2.2 [facility] Comment on above: Performed By: #### 2 779998 #### [facility] [address] [place] [address] ALP [Catalytic activity/Vol] 54 Int._Unit/L Normal 21-98 [facility] Comment on above: Performed By: #### 2 162374 #### [facility] [address] [place] [address] ALT No additional P-5'-P [Catalytic activity/Vol] 47 Int._Unit/L High 6-46 [facility] Comment on above: Performed By: #### 2 023035 #### [facility] [address] [place] [address] Anion gap [Moles/Vol] 12 mmol/L Normal 6-16 [facility] Comment on above: Performed By: #### 2 926916 #### [facility] [address] [place] [address] AST [Catalytic activity/Vol] 30 Int._Unit/L Normal 5-43 [facility] Comment on above: Performed By: #### 2 068147 #### [facility] [address] [place] [address] Bilirubin [Mass/Vol] 1.8 mg/dL High 0.0-1.1 [facility] Comment on above: Performed By: #### 2 149512 #### [facility] [address] [place] [address] Calcium [Mass/Vol] 9.1 mg/dL Normal 8.9-11.1 [facility] Comment on above: Performed By: #### 2 352204 #### [facility] [address] [place] [address] Chloride [Moles/Vol] 102 mmol/L Normal 101-111 [facility] Comment on above: Performed By: #### 2 538113 #### [facility] [address] [place] [address] CO2 [Moles/Vol] 26 mmol/L Normal 21-31 [facility] Comment on above: Performed By: #### 2 932555 #### [facility] [address] [place] [address] Creatinine [Mass/Vol] 0.8 mg/dL Normal 0.5-1.3 [facility] Comment on above: Performed By: #### 2 386545 #### [facility] [address] [place] [address] Globulin (S) [Mass/Vol] 1.9 g/dL Normal 1.4-4.0 [facility] Comment on above: Performed By: #### 2 560599 #### [facility] [address] [place] [address] Glucose [Mass/Vol] 153 mg/dL Normal 55-199 [facility] Comment on above: Performed By: #### 2 436246 #### [facility] [address] [place] [address] Potassium [Moles/Vol] 4.7 mmol/L Normal 3.5-5.3 [facility] Comment on above: Performed By: #### 2 223896 #### [facility] [address] [place] [address] Protein [Mass/Vol] 6.2 g/dL Normal 6.0-7.8 [facility] Comment on above: Performed By: #### 2 448117 #### [facility] [address] [place] [address] Sodium [Moles/Vol] 135 mmol/L Normal 135-145 [facility] Comment on above: Performed By: #### 2 405735 #### [facility] [address] [place] [address] Urea nitrogen [Mass/Vol] 9 mg/dL Normal 5-21 [facility] Comment on above: Performed By: #### 2 759859 #### [facility] [address] [place] [address] Urea nitrogen/Creatinine [Mass ratio] 11 No Units Normal 10-20 [facility] Comment on above: Performed By: #### 2 861395 #### [facility] [address] [place] [address] Consent for Treatmenton 02-14 Consent for Treatment [id number] #1.00TIFF Normal [facility] Ferritinon 03-12-2024 Ferritin [Mass/Vol] 179 ng/mL Normal 24-336 [facility] Comment on above: Performed By: #### 2 188288 #### [facility] [address] [place] [address] HEMATOLOGYOrdered By: SYSTEM SYSTEM on 03-12-2024 Acanthocytes [...] 03-12-2024 Iron [Mass/Vol] 117 microgram/dL Normal 35-153 [facility] Comment on above: Performed By: #### 2 620128 #### [facility] [address] [place] [address] Iron Saturationon 03-12-2024 Iron binding capacity [Mass/Vol] 326 microgram/dL Normal 250-400 [facility] Comment on above: Performed By: #### 2 337816 #### [facility] [address] [place] [address] Iron saturation [Mass fraction] 36 % Normal 20-50 [facility] Comment on above: Performed By: #### 2 663696 #### [facility] [address] [place] [address] Transferrinon 03-12-2024 Transferrin [Mass/Vol] 233 mg/dL Normal 200-370 [facility] Comment on above: Performed By: #### 2 873156 #### [facility] [address] [place] [address] eGFRon 03-12-2024 eGFR 98 mL/min/1.73 m2 Normal >=59 [facility] Comment on above: Order Comment: Order added by Discern Expert. Performed By: #### 1 [id number] #### [facility] [address] [place] [address] Consent for Treatmenton Consent for Treatment [id number] #1.00TIFF Normal [facility] Consent for Treatmenton 01-15 Consent for Treatment [id number] #1.00TIFF Normal [facility] Consent for Treatmenton 01-14 Consent for Treatment [id number] #1.00TIFF [facility] Consenton 01-31-2024 Consent [id number] 7#1.00TIFF [facility] Outside Diabetes Eye Examon 01-31-2024 Outside Diabetes Eye Exam [id number] #1.00TIFF Normal [facility] Population Healthon 01-26-20 24 Population Health Case Information Case Priority: None Programs: -- Referral Source: Colorist Dyer Referral Reason: Disease management Case Type: Chronic Care Management Risk Score: -- Case Status: Active (December 28, 2023) Date Assigned: December 19, 2023 Assigned By: Christian Hernandez Date Enrolled: December 28, 2023 Assigned Primary Personnel: Christian Hernandez Assigned Secondary Personnel: -- Case Physician: Ursula Love MD Ongoing AAA (abdominal aortic aneurysm) Aortic aneurysm BMI 28.0-28.9,adult BPH (benign prostatic hyperplasia) CAD in [place] artery Controlled type 2 diabetes mellitus without [...] CCM Program Enrollment Verbally agreed to receive [facility] services CCM Written Consent Written consent in progress CCM Verbal Consent By Self 12/28/23 07:00:00 Result Name Value Comment HIPPA Verified Type of Contact In person at home CM Preferred Spoken Language Qatari CM Preferred Written Language Qatari Preferred Communication Mode Verbal Ability to Read/Write Able to read, Able to write Preferred Salutation Preferred Method of Contact Cell Cell Phone [phone] Best Time to Visit or Contact 7-10 am Best Day to Visit or Contact No preference Appointment Reminders Patient portal, Other secured messaging Preferred Way to Send PHI Patient portal Preferred Mailing Address [address] [place] [address], [address] Learning Style Pref Patient Verbal explanation Learning [...] bed Support System Spouse/Significant other Primary Director Of Estate of Home Medication Self Current DME at Home No Currently Receiving Skilled Services No Skilled Service Needs Anticipated No Barriers to Care None Home Barriers None Employment Status Retired Financial Issues None Sources of Income Social Security Pat (more content not included)... Normal [facility] Consent for Treatmenton 01-14 Consent for Treatment [id number] #1.00TIFF [facility] Oncology Progress Noteon Oncology Progress Note [...] his nasa (more content not included)... Normal [facility] Free K+L Lt Chains,Qn,Son Immunoglobulin light chains.kappa.free (S) [Mass/Vol] 19.0 mg/L Invalid Interpretation Code 3.3-19.4 [facility] Comment on above: Performed By: #### 2 [id number], 9447593, 9206611, 9120467, 1712479, 0290814, 5231073, 6465459, 09597969 ####[facility] [address] [place] [address] Immunoglobulin light chains.kappa.free/Imm unoglobulin light chains.lambda.free (S) [Mass ratio] 1.62 Invalid Interpretation Code 0.26-1.65 [facility] Comment on above: Result Comment: Perf ormed at: [facility] [address] [id number] PhD Nicole Fang Performed By: #### 2 08041345, 7836441, 2288560, 7081573, 7333212, 1439910, 7466124, 6814726, 20016061 ####[facility] [address] [place] [address] Immunoglobulin light chains.lambda.free [Mass/Vol] 11.7 mg/L Invalid Interpretation Code 5.7-26.3 [facility] Comment on above: Performed By: #### 2 60911620, 5830122, 1195265, 8644129, 1580260, 1648721, 5771648, 4019185, 02080674 ####[facility] [address] [place] [address] Immunofixation Serumon 01-16 IgA [Mass/Vol] 87 mg/dL Invalid Interpretation Code 61-607 [facility] Comment on above: Performed By: #### 2 20615861, 4464537, 3038662, 1024732, 1797242, 4879141, 8846392, 4022312, 12174688 ####[facility] [address] [place] [address] IgG [Mass/Vol] 406 mg/dL Low 603-1613 [facility] Comment on above: Performed By: #### 2 63128280, 0532482, 4460572, 7165410, 9141580, 2365851, 4083425, 0222757, 48568876 ####[facility] [address] [place] [address] IgM [Mass/Vol] 136 mg/dL Invalid Interpretation Code [facility] Comment on above: Result Comment: Perf ormed at: [facility] [address] [id number] PhD Nicole Fang Performed By: #### 2 90565395, 3189516, 9300033, 5289623, 5478720, 4267130, 0867227, 3647500, 45080790 ####[facility] [address] [place] [address] Protein Fractions [Interp] Comment Invalid Interpretation Code [facility] Comment on above: Result Comment: No m onoclonality detected. Performed By: #### 2 55350651, 1779307, 4816818, 5872041, 7585935, 2990154, 3303690, 9405042, 75656610 ####[facility] [address] [place] [address] SPEon 01-17-2024 Albumin [Mass/Vol] 3.6 g/dL Invalid Interpretation Code 2.9-4.4 [facility] Comment on above: Performed By: #### 2 26237581, 4770041, 0573854, 8943924, 5265245, 7078548, 1916231, 9464641, 67904070 ####[facility] [address] [place] [address] Albumin/Globulin [Mass ratio] 1.8 {ratio} High 0.7-1.7 [facility] Comment on above: Performed By: #### 2 57071595, 7272527, 9461189, 7774288, 0734719, 0658850, 4973626, 3695737, 80117685 ####[address] [place] [address] Alpha 1 globulin Elph [Mass/Vol] 0.2 g/dL Invalid Interpretation Code 0.0-0.4 [facility] Comment on above: Performed By: #### 2 03828123, 7290014, 4152925, 4101042, 8277360, 4889093, 0726966, 2442990, 94951742 ####[address] [address] Alpha 2 globulin Elph [Mass/Vol] 0.6 g/dL Invalid Interpretation Code 0.4-1.0 [facility] Comment on above: Performed By: #### 2 20321584, 5350417, 3240120, 0888076, 5873553, 0265389, 3541176, 5579989, 74968675 ####[address] [address] Beta globulin Elph [Mass/Vol] 0.8 g/dL Invalid Interpretation Code 0.7-1.3 [facility] Comment on above: Performed By: #### 2 22553462, 9687045, 9254895, 8041072, 2872530, 7578736, 0273191, 5490328, 69512443 ####[address] [address] Gamma globulin Elph [Mass/Vol] 0.4 g/dL Invalid Interpretation Code 0.4-1.8 [facility] Comment on above: Performed By: #### 2 83860993, 7056501, 1645558, 6100920, 2367789, 0257212, 8456555, 8789234, 36186044 ####[address] [place] [address] Globulin (S) [Mass/Vol] 2.0 g/dL Low 2.2-3.9 [facility] Comment on above: Performed By: #### 2 72458639, 6798910, 4374607, 5989485, 1670644, 5807846, 0521866, 3451931, 57640448 ####[facility] [address] [place] [address] Laboratory comment Harman (Report) Comment Invalid Interpretation Code [facility] Comment on above: Result Comment: Prot ein electrophoresis scan will follow via computer, mail, or spa attendant delivery. Performed By: #### 2 53624881, 4840857, 1389532, 8901944, 0957910, 1256141, 8376635, 9178208, 34311785 ####[facility] [address] [place] [address] Protein [Mass/Vol] 5.6 g/dL Low 6.0-8.5 [facility] Comment on above: Performed By: #### 2 04574649, 3272778, 5055874, 6578911, 1081868, 6748339, 8164926, 6234071, 06267972 ####[facility] [address] [place] [address] Protein Fractions [Interp] Comment: Invalid Interpretation Code [facility] Comment on above: Result Comment: SPE shows decreased total protein. Performed at: [address] [id number] PhD Nicole Fang Performed By: #### 2 81305044, 5188843, 0762909, 0681190, 6267840, 8981714, 4517155, 6775873, 65276564 ####[facility] [address] [place] [address] Protein.monoclonal Elph [Mass/Vol] Not Observed Invalid Interpretation Code Not Observed [facility] Comment on above: Performed By: #### 2 50563478, 0170477, 4881533, 1630900, 5620964, 1966988, 9758481, 9342397, 39053145 ####[facility] [address] [place] [address] CHEMISTRYOrdered By: SYSTEM SYSTEM on 01-16-2024 Cobalamin [...] Consent for Treatmenton 04- Consent for Treatment [id number] #1.00TIFF Normal [facility] Ferritinon 01-16-2024 Ferritin [Mass/Vol] 8 ng/mL Low 24-336 [facility] Comment on above: Performed By: #### 2 49730734, 0905349, 6653433, 6128384, 4620165, 6939399, 9462662, 8236106, 00159487 ####[facility] [address] [place] [address] Folateon 01-16-2024 Folate [Mass/Vol] 13.0 ng/mL Normal >=6.7 [facility] Comment on above: Performed By: #### 2 53349383, 9545803, 0638547, 1835764, 7523580, 3628559, 9486358, 7958428, 22183124 ####[facility] [address] [place] [address] Ironon 01-16-2024 Iron [Mass/Vol] 36 microgram/dL Normal 35-153 [facility] Comment on above: Performed By: #### 2 97618102, 4752097, 5969430, 0161467, 2563071, 3508322, 6674549, 3784530, 43383117 #### [facility] Laboratory [address] [place] [address] Iron Saturationon 01-16-2024 Iron binding capacity [Mass/Vol] 473 microgram/dL High 250-400 [facility] Comment on above: Performed By: #### 2 02521602, 5699515, 2111784, 4205052, 5055615, 3184412, 5046253, 3682403, 59932674 #### [facility] [address] [place] [address] Iron saturation [Mass fraction] 8 % Low 20-50 [facility] Comment on above: Performed By: #### 2 96176122, 5498941, 4989749, 4109175, 4103066, 6218810, 6529764, 1843221, 69689762 #### [facility] [address] [place] [address] Transferrinon 01-16-2024 Transferrin [Mass/Vol] 338 mg/dL Normal 200-370 [facility] Comment on above: Performed By: #### 2 78325717, 8028952, 1421911, 3644460, 1461433, 8261737, 4715670, 4842082, 53991222 #### [facility] [address] [place] [address] Vit B12on 01-16-2024 Cobalamin (Vitamin B12) [Mass/Vol] 213 pg/mL Normal 50-1500 [facility] Comment on above: Performed By: #### 2 59864473, 5697392, 6691302, 0339081, 3419492, 3208544, 3403787, 1375878, 65001169 ####[facility] [address] [place] [address] 36on 01-10-2024 36 Message sent from patient to my email: Kg Mesa hope all is well, I forgot to ask if I???m 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 Some things I???ve read are telling me not to?? Marilyn, are you able to advise on this? Thanks. [facility] Physician Referralon 024 Physician Referral [id number] #1.00TIFF Normal [facility] Office Visiton 12-29-2023 Follow-up visit [id number] Marcelle Deutsch 1960 M Date Provider Department Center 12/29/2023 PARISA MUNGUIA WENDY Michaels Family History Problem Relation Age of Onset Coronary artery disease Father Atrial fibrillation Father Heart attack Brother Family Status - Relation Status Age at Father Brother Level of Service:83211 ID OFFICE/OUTPATIENT ESTABLISHED MOD MDM 30 MIN Normal [facility] ED Pat Eduon 12-28-2023 ED Pat Edu Cardiovascular Coronary Artery Disease, Male Coronary artery disease (CAD) is a condition in which the arteries that lead to the heart (coronary arteries) become narrow or blocked. The narrowing or blockage can lead to decreased blood flow to the heart. Prolonged reduced blood flow can cause a heart attack (myocardial infarction, or TX). This condition may also be called coronary [...] these instructions at home: Medicines ? Take syvn-wnj-zbcgixt and prescription medicines only as told by [...] use any (more content not included)... Normal [facility] 12-28-19 [facility] Case Information Case Priority: None Programs: -- Referral Source: Colorist Dyer Referral Reason: Disease management Case Type: Chronic Care Management Risk Score: -- Case Status: Active (December 28, 2023) Date Assigned: December 19, 2023 Assigned By: Christian Hernandez Date Enrolled: December 28, 2023 Assigned Primary Personnel: Christian Hernandez Assigned Secondary Personnel: -- Case Physician: -- Problems Ongoing AAA (abdominal aortic aneurysm) Aortic aneurysm BMI 28.0-28.9,adult BPH (benign prostatic hyperplasia) CAD in [place] artery Controlled type 2 diabetes mellitus without [...] Assessments 12/28/23 08:18:00 Result Name Value Comment [facility] Program Enrollment Verbally agreed to receive [facility] services [facility] Written Consent Written consent in progress [facility] Verbal Consent By Self 12/28/23 07:00:00 Result Name Value Comment HIPPA Verified Type of Contact In person at home CM Preferred Spoken Language Qatari CM Preferred Written Language Qatari Preferred Communication Mode Verbal Ability to Read/Write Able to read, Able to write Preferred Salutation Mr. Preferred Method of Contact Cell Cell Phone [phone] Best Time to Visit or Contact 7-10 am Best Day to Visit or Contact No preference Appointment Reminders Patient portal, Other secured messaging Preferred Way to Send PHI Patient portal Preferred Mailing Address [address] [place] [address], [address] Learning Style Pref Patient Verbal explanation Learning [...] bed Support System Spouse/Significant other Primary Director Of Estate of Home Medication Self Current DME at Home No Currently Receiving Skilled Services No Skilled Service Needs Anticipated No Barriers to Care None Home Barriers None Employment Status Retired Financial Issues None Sources of Income Social Security Patient Account Ser (more content not included)... Normal [facility] Population Health Problems Ongoing AAA (abdominal aortic aneurysm) Aortic aneurysm BMI 28.0-28.9,adult BPH (benign prostatic hyperplasia) CAD in [place] artery Controlled type 2 diabetes mellitus without [...] - Comments: - - 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 Frequency Status Scallop Shucker Review educational material - - Not done [...] - Comments: - - 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 Frequency Status Scallop Shucker Review educational material - - Not done [...] - Comments: - - 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 Frequency Status Scallop Shucker Review educational material - - Not done [...] - Comments: - - 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 Frequency Status Scallop Shucker Review educational material - - Not done [...] - - Not done - - Normal [facility] CT Chest, Low Dose Screening on 12-27-2023 [...] Bourne MD Transcribed by: LUDWIN Technologist: MEKHI [facility] Consent for Treatmenton 12-14 Consent for Treatment [id number] #1.00TIFF [facility] Family Medicine Office/Clini c Noteon 12-22-2023 [...] Reviewed Medicare preventative services checklist. [facility]-F[facility] Prevention and home safety screening reviewed. Patient denies any falls in last 12 months, voices no worry about falling, exhibits no problems with sitting, standing, or ambulation. Pt voices understanding with keeping walk way area free of clutter to prevent tripping and/or falling. [place] Advance Directives reviewed, patient has at home, [...] PCP visit. Will have labs completed with [facility]. Colonoscopy up to date, due for repeat [...] with CDC recommendation that everyone born from 0661[birth year]121 get tested for Hepatitis C. This is [...] Pack Yea (more content not included)... Normal [facility] Comment on above: Result Comment: Elec tronically Signed By: Ursula Love MD\.br\Date and Time Signed: 12/22/23 11:50 EST\.br\Electronically Co-Signed By: Christian Hernandez.jp\Date and Time Co-Signed: 12/18/23 15:00 EST .Interpretation:on 4 HCV Ab IA Ql Comment Invalid Interpretation Code [facility] Comment on above: Result Comment: Not infected with HCV unless early or acute infection is suspected (which may be delayed in an immunocompromised individual), or other evidence exists to indicate HCV infection. Performed at: [facility] [address] [place], [place] [id number] PhD Nicole Fang Performed By: #### 2 891252, [id number], 8306070, 3771433, 7808537450, 470299474, 29652756 ####[facility] [address] [place] [address] HCV Antibody RFX to Quant PC Kavin 12-20-2023 HCV IgG IA Ql Non-Reactive Invalid Interpretation Code Non Reactive [facility] Comment on above: Result Comment: Perf ormed at: [facility] [address] [place], [place] [id number] PhD Nicole Fang Performed By: #### 2 685262, [id number], 0469550, 9348913, 3250692227, 576628548, 07015804 ####[facility] [address] [place] [address] [place] 12-19-2023 [place] [id number] #1.00TIFF Normal [facility] Ambulatory Visit Summaryon 0 12-18-2023 Ambulatory Visit Summary MARCELLE DEUTSCH :1960 Visit Date:12/18/2023 Ambulatory Visit Instructions Your Diagnosis Longstanding persistent atrial fibrillation GERD without esophagitis Controlled type 2 diabetes mellitus without complication, without long-term current use of insulin Aortic aneurysm BMI 28.0-28.9,adult Former smoker Your Care Team Attending Physician - Urusla Love MD Primary Care Physician - Ursula [...] 28.0-28.9,adult BPH (benign prostatic hyperplasia) CAD in [place] artery Controlled type 2 diabetes mellitus without [...] for choosing us for your care. Normal [facility] CBC w/ Auto Diffon 4 Anisocytosis Ql (Bld) PRESENT Invalid Interpretation Code [facility] Comment on above: Performed By: #### 2 770970, [id number], 2531900, 3975732, 2338284743, 842911798, 14036374 ####[facility] [address] [place] [address] Basophils/100 WBC (Bld) 0.6 % Normal 0.0-2.0 [facility] Comment on above: Performed By: #### 2 856171, 4635336750, 5364292, 4569949, 6420267072, 915671400, 27538324 ####[facility] [address] [place] [address] Basophils/Leukocytes Auto (Bld) [Pure # fraction] 0.0 E9/L Normal 0.0-0.2 [facility] Comment on above: Performed By: #### 2 306318, 1793189162, 3862240, 0568202, 9278560748, 505562311, 05127578 ####[address] [address] Eosinophils (Bld) [#/Vol] 0.1 E9/L Normal 0.0-0.5 [facility] Comment on above: Performed By: #### 2 994777, 2096396220, 7139511, 4062808, 8332114650, 955288269, 70490313 ####[address] [address] Eosinophils/100 WBC (Bld) 2.7 % Normal 0.0-8.0 [facility] Comment on above: Performed By: #### 2 268751, 9067639629, 9458344, 0358042, 7253557066, 609992477, 54602782 ####[address] [address] Erythrocyte distribution width (RBC) [Ratio] 17.2 % High 10.9-14.2 [facility] Comment on above: Performed By: #### 2 612255, 6720732402, 9685411, 3834092, 1663706150, 380478527, 39535493 ####[facility] [address] [place] [address] Hematocrit (Bld) [Volume fraction] 34.4 % Low 37.7-49.0 [facility] Comment on above: Performed By: #### 2 803097, 9990993083, 6419231, 2586596, 0763490116, 215893272, 40585878 ####[address] [place] [address] Hemoglobin (Bld) [Mass/Vol] 10.9 g/dL Low 13.5-17.5 [facility] Comment on above: Performed By: #### 2 895015, 7751494156, 2846233, 4455597, 9009803250, 140567649, 24964429 ####[facility] [address] [place] [address] Hypochromia Auto Ql (Bld) PRESENT Invalid Interpretation Code [facility] Comment on above: Performed By: #### 2 292244, 8129175678, 6997928, 7317469, 5187319813, 766025535, 29857892 ####[address] [address] Lymphocytes (Bld) [#/Vol] 1.3 E9/L Normal 1.0-4.0 [facility] Comment on above: Performed By: #### 2 962475, 9375995311, 2962039, 6088691, 3188203135, 586016394, 09133521 ####[facility] [address] [place] [address] Lymphocytes/100 WBC (Bld) 25.8 % Normal 14.0-50.0 [facility] Comment on above: Performed By: #### 2 116716, 3173069918, 0524007, 5857054, 5759548003, 905120050, 36299795 ####[address] [address] MCH (RBC) [Entitic mass] 23.3 pg Low 27.0-34.0 [facility] Comment on above: Performed By: #### 2 336890, 8894077107, 5237225, 7025035, 4011546055, 514758739, 87058776 ####[address] [address] MCHC (RBC) [Mass/Vol] 31.6 g/dL Normal 31.4-36.0 [facility] Comment on above: Performed By: #### 2 662009, 0265690570, 7292064, 3423407, 9737606408, 229468523, 34031242 ####[address] [address] MCV (RBC) [Entitic vol] 73.6 fL Low 80.0-100.0 [facility] Comment on above: Performed By: #### 2 337942, 0691497061, 4987551, 8718619, 8608277578, 967431671, 39812089 ####[address] [address] Microcytes Ql (Bld) PRESENT Invalid Interpretation Code [facility] Comment on above: Performed By: #### 2 463629, 7183057391, 3526149, 9019451, 1672298096, 837501973, 21599477 ####[address] [address] Monocytes (Bld) [#/Vol] 0.4 E9/L Normal 0.2-1.0 [facility] Comment on above: Performed By: #### 2 280813, 5528325721, 8368055, 0611587, 9798210846, 536531821, 30951571 ####[address] [place] [address] Neutrophils (Bld) [#/Vol] 3.2 E9/L Normal 2.0-7.5 [facility] Comment on above: Performed By: #### 2 088165, 1431660433, 7130995, 9800816, 0041875761, 887210867, 94936373 ####[address] [place] [address] Neutrophils/100 WBC (Bld) 63.4 % Normal 36.0-75.0 [facility] Comment on above: Performed By: #### 2 770958, 3745066623, 5874544, 7797161, 8809149470, 593271268, 50250473 ####[address] [address] Ovalocytes LM Ql (Bld) PRESENT Invalid Interpretation Code [facility] Comment on above: Performed By: #### 2 779923, 3929416937, 6901244, 2836544, 6818717390, 355449418, 11798403 ####[address] [address] Platelet mean volume (Bld) [Entitic vol] 10.4 fL Normal 6.4-10.8 [facility] Comment on above: Performed By: #### 2 272264, 4727284545, 4454960, 6130444, 1296578666, 995403311, 11665144 ####[address] [address] Platelets (Bld) [#/Vol] 137.0 E9/L Low 150.0-500.0 [facility] Comment on above: Performed By: #### 2 605521, 4650381051, 4157197, 5178421, 3760654051, 273896854, 85935144 ####[facility] [address] [place] [address] Poikilocytosis Auto Ql (Bld) PRESENT Invalid Interpretation Code [facility] Comment on above: Performed By: #### 2 765250, 8266591767, 9178970, 2173058, 7038210414, 292070594, 92559768 ####[facility] [address] [place] [address] RBC (Bld) [#/Vol] 4.7 E12/L Normal 4.3-5.9 [facility] Comment on above: Performed By: #### 2 611928, 1833816564, 0599606, 5901161, 8829492180, 171845970, 51688599 ####[facility] [address] [place] [address] WBC corrected for nucl RBC Auto (Bld) [#/Vol] 5.0 E9/L Normal 4.0-11.0 [facility] Comment on above: Performed By: #### 2 270529, 0348245867, 8415867, 8494769, 3140618873, 267965385, 85115345 ####[facility] [address] [place] [address] CHEMISTRYOrdered By: SYSTEM SYSTEM on 12-18-2023 Albumin [...] - 20 Remisol Chem CHEMISTRYOrdered By: Bobby ybarraolasami on 12-18-2023 HbA1c (Bld) [Mass fraction] 6.9 % High <=5.9% [facility] ChemAutoSS CMPon 12-18-2023 Albumin [Mass/Vol] 4.4 g/dL Normal 3.3-5.0 [facility] Comment on above: Performed By: #### 2 566834, 9678362210, 8013248, 2430013, 2958985770, 471341470, 95143780 ####[facility] [address] [place] [address] Albumin/Globulin (S) [Mass conc ratio] 2.6 High 1.1-2.2 [facility] Comment on above: Performed By: #### 2 232155, 7027603832, 9768004, 2421281, 6509817397, 349789604, 10401741 ####[facility] [address] [place] [address] ALP [Catalytic activity/Vol] 49 Int._Unit/L Normal 21-98 [facility] Comment on above: Performed By: #### 2 398398, 6403281007, 6166092, 9457724, 5829726953, 629282962, 57435335 ####[address] [address] ALT No additional P-5'-P [Catalytic activity/Vol] 20 Int._Unit/L Normal 6-46 [facility] Comment on above: Performed By: #### 2 156885, 8863595808, 7973933, 7235642, 0666117059, 065004137, 36239359 ####[facility] [address] [place] [address] Anion gap [Moles/Vol] 13 mmol/L Normal 6-16 [facility] Comment on above: Performed By: #### 2 962163, 9284571033, 8209957, 6913961, 0236736578, 603120829, 56023525 ####[facility] [address] [place] [address] AST [Catalytic activity/Vol] 17 Int._Unit/L Normal 5-43 [facility] Comment on above: Performed By: #### 2 914130, 0546782584, 7164093, 5099502, 9332444900, 283928212, 54561215 ####[facility] [address] [place] [address] Bilirubin [Mass/Vol] 1.7 mg/dL High 0.0-1.1 [facility] Comment on above: Performed By: #### 2 123661, 3623476903, 7627167, 9010647, 8815529840, 618487779, 84475149 ####[facility] [address] [place] [address] Calcium [Mass/Vol] 9.3 mg/dL Normal 8.9-11.1 [facility] Comment on above: Performed By: #### 2 680709, 7441322352, 0271658, 8929864, 1668371421, 800129347, 01612865 ####[facility] [address] [place] [address] Chloride [Moles/Vol] 103 mmol/L Normal 101-111 [facility] Comment on above: Performed By: #### 2 987246, 1209224356, 0688493, 6292323, 1600604163, 310705924, 40478371 ####[facility] [address] [place] [address] CO2 [Moles/Vol] 26 mmol/L Normal 21-31 [facility] Comment on above: Performed By: #### 2 722659, 4998007294, 4634208, 6489103, 5209134958, 962314313, 47710041 ####[facility] [address] [place] [address] Creatinine [Mass/Vol] 0.8 mg/dL Normal 0.5-1.3 [facility] Comment on above: Performed By: #### 2 431723, 9964772499, 1247207, 9513928, 4304999948, 424800715, 56542044 ####[facility] [address] [place] [address] Globulin (S) [Mass/Vol] 1.7 g/dL Normal 1.4-4.0 [facility] Comment on above: Performed By: #### 2 389601, 2863766186, 4050071, 2143110, 8937871584, 506368808, 87137916 ####[facility] [address] [place] [address] Glucose [Mass/Vol] 124 mg/dL Normal 55-199 [facility] Comment on above: Performed By: #### 2 931884, 4297487386, 9805604, 0220420, 7180541026, 999079431, 76057962 ####[facility] [address] [place] [address] Potassium [Moles/Vol] 4.0 mmol/L Normal 3.5-5.3 [facility] Comment on above: Performed By: #### 2 495550, 2611905535, 8808177, 3740725, 3707458406, 248075528, 09144793 ####[address] [place] [address] Protein [Mass/Vol] 6.1 g/dL Normal 6.0-7.8 [facility] Comment on above: Performed By: #### 2 749412, 0038777798, 2524001, 7260196, 9796427361, 699004303, 03590464 ####[facility] [address] [place] [address] Sodium [Moles/Vol] 138 mmol/L Normal 135-145 [facility] Comment on above: Performed By: #### 2 749375, 4330743242, 8354787, 2893794, 9109110692, 224491771, 49938298 ####[facility] [address] [place] [address] Urea nitrogen [Mass/Vol] 8 mg/dL Normal 5-21 [facility] Comment on above: Performed By: #### 2 146519, 0587664248, 0174696, 7576175, 8248533818, 883054532, 29815412 ####[facility] [address] [place] [address] Urea nitrogen/Creatinine [Mass ratio] 10 No Units Normal 10-20 [facility] Comment on above: Performed By: #### 2 000734, 4989133946, 7219951, 3004370, 1075217239, 222705083, 33079475 ####[facility] [address] [place] [address] HEMATOLOGYOrdered By: SYSTEM SYSTEM on 12-18-2023 Anisocytosis [...] Normal 4.0 - 11.0 E9/L Remisol Heme IbrK7flm 12-18-2023 HbA1c (Bld) [Mass fraction] 6.9 % High <=5.9 [facility] Comment on above: Performed By: #### 2 155414, 6495064432, 6870093, 7326103, 3567643780, 125724035, 08995867 ####[facility] [address] [place] [address] Lipid Panelon 12-18-2023 Cholesterol [Mass/Vol] 118 mg/dL Low 120-200 [facility] Comment on above: Performed By: #### 2 278605, 3804556391, 9624539, 5065480, 3019011644, 000723729, 35150981 ####[facility] [address] [place] [address] Cholesterol in HDL [Mass/Vol] 37 mg/dL Invalid Interpretation Code [facility] Comment on above: Result Comment: '>= 60 LOW RISK' '<= 40 HIGH RISK' Performed By: #### 2 291517, 6946333021, 0875195, 6690507, 7991546081, 195002576, 96593580 ####[facility] [address] [place] [address] Cholesterol in LDL [Mass/Vol] 72 mg/dL Normal <=129 [facility] Comment on above: Performed By: #### 2 309233, 1517200924, 9859077, 6077367, 4870971360, 656127723, 42345582 ####[facility] [address] [place] [address] Cholesterol in VLDL [Mass/Vol] 22 mg/dL Normal 7-40 [facility] Comment on above: Performed By: #### 2 238670, 7631265090, 6166384, 4461077, 6414666488, 238024976, 92436200 ####[facility] [address] [place] [address] Triglyceride [Mass/Vol] 112 mg/dL Normal <=149 [facility] Comment on above: Performed By: #### 2 748232, 1242009179, 4962195, 4004401, 8975762417, 249883863, 30415251 ####[facility] [address] [place] [address] Patient Educationon 12-18-19 Patient Education Cardiovascular Atrial [...] signals of the heart. ? An ambulatory drug room operator to record your heart's activity for a [...] Trouble breathing. (more content not included)... Normal [facility] eGFRon 12-18-2023 eGFR 98 mL/min/1.73 m2 Normal >=59 [facility] Comment on above: Order Comment: Order added by Discern Expert. Performed By: #### 2 984377, 4746143514, 7569506, 9907841, 7742757624, 027910452, 34667468 ####[facility] [address] [place] [address] 36on 11-20-2023 36 Patient emailed me and asked if we had samples of Xarelto. Since he's on Medicare now it's very expensive for him. We haven't had a rep bring samples of Xarelto in about 1 year. I mentioned switching to Eliquis, since we do get samples of that. Ok to send RX for Eliquis 5mg bid? Please advise. Thanks! [facility] Ambulatory Visit Summaryon 1 12-05-2022 [...] Appointments Monday 8:00 AM EDT With: Where: [facility] Normal [address] [place] [address]- \.br\ Medications\.br \ What How Much When [...] BPH (benign prostatic hyperplasia)\.b r\ CAD in [place] artery\.br\ Controlled type 2 diabetes mellitus without [...] for choosing us for your care.\.br\ \.br\ [facility] General Surgery Office/Clini c Noteon 10-04-2023 General [...] 28.0-28.9,adult BPH (benign prostatic hyperplasia) CAD in [place] artery Controlled type 2 diabetes mellitus without [...] influenza virus vaccine, inactivated 07/30/[address] [facility] Comment on above: Result Comment: Elec tronically Signed By: WILLIAM NIELSON, Jose Luis Jin\Date and Time Signed: 10/04/23 13:35 EST Reminderson 10-04-2023 Reminders - From: Kori Saldivar LPN To: [facility] - Clinical; Sent: 10/04/2023 13:36:47 EST Show up: 08/21/2026 07:00:00 EST Subject: colonoscopy recall Due Date/Time: 09/20/2026 07:00:00 EST Reminder/Recall Patient due for surveillance colonoscopy 09/20/2026 due to history of tubular adenoma. Normal [facility] Pathology Noteon 09-27-2023 Pathology Note [id number] 4#1.00TIFF Normal [facility] Outside Colonoscopyon 2022 Outside Colonoscopy [id number] #1.00TIFF Normal [facility] Lab Reportson 09-21-2023 Lab Reports [id number] #1.00TIFF Normal [facility] Physician Referralon 023 Physician Referral [id number] #1.00TIFF Normal [facility] Physician Referralon 023 Physician Referral [id number]# 1.00TIFF Normal [facility] Consent for Procedure/Surger yon 08-30-2023 Consent for Procedure/Surgery [id number] 8#1.00TIFF [facility] Ambulatory Visit Summaryon 1 10-29-2022 Ambulatory Visit [...] Appointments Monday 8:00 AM EDT With: Where: [address] [address]- \.br\ Medications\.br \ What How Much When [...] BPH (benign prostatic hyperplasia)\.b r\ CAD in [place] artery\.br\ Controlled type 2 diabetes mellitus without [...] for choosing us for your care.\.br\ \.br\ [facility] Ambulatory Visit Summaryon 1 10-16-2022 Ambulatory Visit Summary MARCELLE DEUTSCH :1960 Visit Date:08/16/2023 Ambulatory Visit Instructions Your Diagnosis Kidney stone Gross hematuria BPH (benign prostatic hyperplasia) Personal history of kidney stones Former smoker Family history of kidney cancer Tests Performed Urnls Dip Stick Auto w/o Microscopy POC 23155 Your Care Team Attending Physician - Shelley [...] Follow-Up Appointments Monday 2:20 PM EST With: WILLIAM NIELSON, Jose Luis Boyd Where: General Surgery [facility]ajuan Kirby Invalid Interpretation Code [address] [place] [address]- \.br\ Monday 8:40 AM EDT \.br\ With: Ursula Love MD\.br\ Where: [facility] Patient Educationon 08-16-20 Patient Education Nephrology [...] Spinach (cooked), rhubarb, beets, sweet potatoes, and American chard. ? Peanuts. ? Potato chips, chinese fries, and baked potatoes with skin on. ? Nuts and nut products. ? Chocolate. ? If you regularly take a diuretic medicine, make sure to eat at least 1 or 2 servings of fruits or vegetables that are high in potassium each day. These include: ? Avocado. ? Banana. ? Young, prune, carrot, or tomato juice. ? Baked [...] fish oil, or vitamin B6. ? Take pkcu-rpc-otpnmio and prescription medicines only as told by your health care provider. These include supplements. What foods should I limit? Limit your in (more content not included)... [facility] [place] 08-16-2023 Screens [id number] #1.00TIFF [facility] Urology Office/Clinic Noteon 08-16-2023 Urology Office/Clinic [...] stones and kidney infections (not culture proven). Aiden (07/17/23) afternoon did pee straight blood for [...] Modifications. -Increase fluid intake, 90oz/day, clear fluids, lemon/pascua yaqui 2. Gross hematuria (R31.0: Gross hematuria) CT [...] (benign prostatic (more content not included)... Normal [facility] Comment on above: Result Comment: Elec tronically Signed By: LuShelley starks MD\.br\Date and Time Signed: 08/16/23 09:03 EDT\.br\Electronically [...] No Oral contrast amount in ml's: 0 [facility] Consent for Treatmenton 2 Consent for Treatment [id number] #1.00TIFF [facility] Ambulatory Visit Summaryon 1 Ambulatory Visit [...] Jose Luis THOMAS MD Where: General Surgery [facility] Invalid Interpretation Code [address] [place] [address]- \.br\ Monday 8:40 AM EDT \.br\ With: Km NIELSON, Ursula Porter\.br\ Where: [facility] Nurse Consultation Noteon Nurse Consultation Note [...] influenza virus vaccine, inactivated 07/30/[address] [facility] URINALYSISOrdered By: Isaiah Garcia on 08-04-2023 Bacteria [...] PM) Normal Negative [facility] UA Auto SS Clarks.plasma/Lithiu m.RBC (Bld) [Mass ratio] 0-3 /HPF Normal [...] PM) Invalid Interpretation Code 1.005 - 1.030 [facility] UA Auto SS UA Spec Desc Clean Catch (08/04/23 2:10 PM) Normal [facility] UA Auto SS Urobilinogen Qn (U) 0.6891144 {Denny'U}/dL Normal 0.0 - 1.0 EU/dL [facility] UA Auto SS WBC Auto Ql (U) Negative (08/04/23 2:10 PM) Normal Negative [facility] UA Auto SS WBC LM.HPF (Urine sed) [#/Area] 0-5 /HPF Normal 0-5/HPF [facility] UA Auto SS Urinalysison 08-04-2023 Bacteria LM Ql (Urine sed) TRACE Normal Trace [facility] Comment on above: Performed By: #### 1 [id number] ####[facility] [address] [place] [address] Bilirubin Ql (U) Negative Normal Negative [facility] Comment on above: Performed By: #### 1 5986788 ####[facility] [address] [place] [address] Clarity (U) CLEAR Normal Clear [facility] Comment on above: Performed By: #### 1 2043667 ####[facility] [address] [place] [address] Color (U) YELLOW Normal Yellow [facility] Comment on above: Performed By: #### 1 2185653 ####[facility] [address] [place] [address] Crystals LM Ql (Urine sed) Present Normal [facility] Comment on above: Performed By: #### 1 6767994 ####[facility] [address] [place] [address] Epithelial cells.squamous LM.HPF (Urine sed) [#/Area] 0-2 Normal 0-2 [facility] Comment on above: Performed By: #### 1 2139170 ####[facility] [address] [place] [address] Glucose Test strip (U) [Mass/Vol] Negative Normal Negative [facility] Comment on above: Performed By: #### 1 2785788 ####[address] [place] [address] Hemoglobin Ql (U) Negative Normal Negative [facility] Comment on above: Performed By: #### 1 6375641 ####[address] [address] Ketones (U) [Mass/Vol] Negative Normal Negative [facility] Comment on above: Performed By: #### 1 6281079 ####[address] [address] Clarks.plasma/Lithiu m.RBC (Bld) [Mass ratio] 0-3 Normal 0-3 [facility] Comment on above: Performed By: #### 1 4396052 ####[address] [address] Nitrite Ql (U) Negative Normal Negative [facility] Comment on above: Performed By: #### 1 2066884 ####[address] [address] pH (U) 6.0 [pH] Invalid Interpretation Code 5.0-9.0 [facility] Comment on above: Performed By: #### 1 0131833 ####[address] [address] Protein (U) [Mass/Vol] Negative Normal Negative [facility] Comment on above: Performed By: #### 1 7080214 ####[address] [address] Specific gravity (U) [Rel density] <=1.005 Invalid Interpretation Code 1.005-1.030 [facility] Comment on above: Performed By: #### 1 1371830 ####[address] [address] Type of Urine collection method Clean Catch Normal [facility] Comment on above: Performed By: #### 1 7886403 ####[address] [address] Urobilinogen Qn (U) 0.2 {Denny'U}/dL Normal 0.0-1.0 [facility] Comment on above: Performed By: #### 1 1586276 ####[facility] [address] [place] [address] WBC Auto Ql (U) Negative Normal Negative [facility] Comment on above: Performed By: #### 1 5208378 ####[facility] [address] [place] [address] WBC LM.HPF (Urine sed) [#/Area] 0-5 Normal 0-5 [facility] Comment on above: Performed By: #### 1 [id number] ####[facility] [address] [place] [address] Physician Referralon 023 Physician Referral [id number] #1.00TIFF Normal [facility] Lab Reportson 08-02-2023 Lab Reports [id number] #1.00TIFF Normal [facility] Ambulatory Visit Summaryon 1 Ambulatory Visit Summary MARCELLE DEUTSCH :1960 Visit Date:07/19/2023 Ambulatory Visit Instructions Your Diagnosis BMI 28.0-28.9,adult Non-smoker Hematuria Kidney stone Left flank pain Dysuria Tests Performed Urnls Dip Stick Non-Auto w/o Micrscpy POC 57064 Your Care Team Attending Physician - Karen [...] Appointments Monday 8:00 AM EDT With: Where: [facility] Normal [address] [id number] \.br\ Medications\.br \ What How Much When Why Instructions\.b r\ New tamsulosin (Flomax 0.4 mg Cap) 1 Capsules By Mouth Every day BMI 28.0-28.9,adult Non-smoker Hematuria Kidney stone Left flank pain Dysuria Pickup at [facility]/pharmacy #[id number]\.br\ Unchanged amlodipine (amLODIPine 5 mg Tab) By [...] day (in the evening)\.br\ Pharmacy Information\.br \ [facility]/pharmacy #[id number]: [address], [place] [phone]\.br\ Test Results\.br\ Urnls Dip Stick Non-Auto w/o Micrscpy POC 22849 (07/19/2023)\.b r\ Bilirubin Urine Dipstick - Negative\.br\ Blood Urine Dipstick - 3+ Large\.br\ Glucose Urine Dipstick - Negative\.br\ Ketones Urine Dipstick - Negative\.br\ Leukocytes Urine Dipstick - Negative\.br\ Nitrite Urine Dipstick - Negative\.br\ Protein Urine Dipstick - Negative\.br\ Specific [place] Urine Dipstick - <=1.005\.br\ Urine Appearance Urine Dipstick - Clear\.br\ Urine Color Urine Dipstick - Light yellow\.br\ Urobilinogen Urine Dipstick - Normal 0.2-1 EU/dl\.br\ pH Urine Dipstick - 7\.br\ Allergies\.br\ penicillins\.br \ Problems\.br\ Ongoing - Any problem that you are currently receiving treatment for.\.br\ BMI 28.0-28.9,adult \.br\ CAD in [place] artery\.br\ Controlled type 2 diabetes mellitus without [...] Dyslipidemia\.b r\ Hypertension\.b r\ Metabolic syndrome\.br\ \.br\ [facility] Ambulatory Visit Summary MARCELLE DEUTSCH :1960 Visit Date:07/19/2023 Ambulatory Visit Instructions Your Diagnosis BMI 28.0-28.9,adult Non-smoker Hematuria Kidney stone Left flank pain Dysuria Tests Performed Urnls Dip Stick Non-Auto w/o Micrscpy POC 80443 Your Care Team Attending Physician - Juan Antonio LIVINGSTON, Karen Richard Primary Care Physician - Km NIELSON, Ursula [...] Appointments Monday 8:00 AM EDT With: Where: [address] \.br\ Medications\.br \ What How Much When Why Instructions\.b r\ New tamsulosin (Flomax 0.4 mg Cap) 1 Capsules By Mouth Every day BMI 28.0-28.9,adult Non-smoker Hematuria Kidney stone Left flank pain Dysuria Pickup at [facility]/pharmacy #[id number]\.br\ Unchanged amlodipine (amLODIPine 5 mg Tab) By [...] day (in the evening)\.br\ Pharmacy Information\.br \ [facility]/pharmacy #[id number]: [address], [place] [phone]\.br\ Test Results\.br\ Urnls Dip Stick Non-Auto w/o Micrscpy POC 99354 (07/19/2023)\.b r\ Bilirubin Urine Dipstick - Negative\.br\ Blood Urine Dipstick - 3+ Large\.br\ Glucose Urine Dipstick - Negative\.br\ Ketones Urine Dipstick - Negative\.br\ Leukocytes Urine Dipstick - Negative\.br\ Nitrite Urine Dipstick - Negative\.br\ Protein Urine Dipstick - Negative\.br\ Specific [place] Urine Dipstick - <=1.005\.br\ Urine Appearance Urine Dipstick - Clear\.br\ Urine Color Urine Dipstick - Light yellow\.br\ Urobilinogen Urine Dipstick - Normal 0.2-1 EU/dl\.br\ pH Urine Dipstick - 7\.br\ Allergies\.br\ penicillins\.br \ Problems\.br\ Ongoing - Any problem that you are currently receiving treatment for.\.br\ BMI 28.0-28.9,adult \.br\ CAD in [place] artery\.br\ Controlled type 2 diabetes mellitus without [...] r\ Hypertension\.b r\ Metabolic syndrome\.br\ \.br\ [facility] Medicine Office/Clini c Noteon 07-19-2023 [facility] Medicine Office/Clinic Note HPI Staff Marcelle [...] Daily, # 10 cap(s), Refills(s) 0, Pharmacy: [facility]/pharmacy #[id number], 178, cm, 07/19/23 11:20:00 EDT, Height/Length Dosing, 89.2, kg, 07/19/23 11:20:00 EDT, Weight Dosing Urnls Dip Stick Non-Auto w/o Micrscpy POC 71540 2. Hematuria (R31.9: Hematuria, unspecified) large blood in urinalysis in office. everything else negative Ordered: tamsulosin, 0.4 mg = 1 cap(s), Oral, Daily, # 10 cap(s), Refills(s) 0, Pharmacy: [facility]/pharmacy #[id number], 178, cm, 07/19/23 11:20:00 EDT, Height/Length Dosing, 89.2, kg, 07/19/23 11:20:00 EDT, Weight Dosing Urnls Dip Stick Non-Auto w/o Micrscpy POC 46455 3. Kidney stone (N20.0: Calculus of kidney) will order flomax. if symptoms worsen will order KUB Ordered: tamsulosin, 0.4 mg = 1 cap(s), Oral, Daily, # 10 cap(s), Refills(s) 0, Pharmacy: [facility]/pharmacy #[id number], 178, cm, 07/19/23 11:20:00 EDT, Height/Length Dosing, 89.2, kg, 07/19/23 11:20:00 EDT, Weight Dosing 4. Dysuria (R30.0: Dysuria) pt states the pain is improving Ordered: tamsulosin, 0.4 mg = 1 cap(s), Oral, Daily, # 10 cap(s), Refills(s) 0, Pharmacy: [facility]/pharmacy #[id number], 178, cm, 07/19/23 11:20:00 EDT, Height/Length Dosing, 89.2, kg, 07/19/23 11:20:00 EDT, Weight Dosing Urnls Dip Stick Non-Auto w/o Micrscpy POC 70365 5. Non-smoker (Z78.9: Other specified health status) continue not smoking Ordered: tamsulosin, 0.4 mg = 1 cap(s), Oral, Daily, # 10 cap(s), Refills(s) 0, Pharmacy: [facility]/pharmacy #[id number], 178, cm, 07/19/23 11:20:00 EDT, Height/Length Dosing, 89.2, kg, 07/19/23 11:20:00 EDT, Weight Dosing Urnls Dip Stick Non-Auto w/o Micrscpy POC 57359 6. BMI 28.0-28.9,adult (Z68.28: Body mass index [BMI] 28.0-28.9, adult) BMI education complete Ordered: tamsulosin, 0.4 mg = 1 cap(s), Oral, Daily, # 10 cap(s), Refills(s) 0, Pharmacy: [facility]/pharmacy #[id number], 178, cm, 07/19/23 11:20:00 EDT, Height/Length Dosing, 89.2, kg, 07/19/23 11:20:00 EDT, Weight Dosing Urnls Dip Stick Non-Auto w/o Micrscpy POC 99578 Follow-up No qualifying data available Problem List/Past Medical History Ongoing BMI 28.0-28.9,adult CAD in [place] artery Controlled type 2 diabetes mellitus without [...] Risk, 08/29/ (more content not included)... Normal [facility] Comment on above: Result Comment: Elec tronically Signed By: Karen Deleon\.jp\Date and Time Signed: 07/19/23 17:48 EDT PSA Free & Totalon 3 Free PSA/Total PSA [Mass fraction] UTC Abnormal >=25.0 [facility] Comment on above: Result Comment: Resu lt [...] SO, 1998; 279:1542-7 Performed By: #### 1 [id number] #### [facility] Laboratory [address] [place] [address] Free PSA [Mass/Vol] <0.[address] [facility] Comment on above: Result Comment: The concentration of free PSA and total PSA determined with assays from different manufacturers can vary due to differences in assay methods and specificity. Values obtained with different compound coating machine offbearer's assays cannot be used interchangeably. The methodology used to obtain this result was chemiluminescence using [employer] Access Hybritech PSA reagent and Access Hybritech free PSA reagent. Performed By: #### 1 [id number], [id number] #### [facility] Laboratory [address] [place] [address] Prostate specific Ag [Mass/Vol] 0.2 ng/mL Normal 0.1-3.5 [facility] Comment on above: Result Comment: The concentration of PSA determined by different manufacturers can vary due to differences in assay methods and reagent specificity. Values obtained from different assay methods cannot be used interchangeably. The methodology used for this result was chemiluminescence using [employer] Access Hybritech PSA reagent. Performed By: #### 1 [id number], [id number] #### [facility] Laboratory [address] [place] [address] CHEMISTRYOrdered By: Julien merida on 07-04-2023 Albumin DL <= 20 mg/L (U) [Mass/Vol] microgram/mL Normal 0.0 - 19.0 mcg/mL [facility] Remisol Albumin Elph (U) [Mass fraction] mg/dL Invalid Interpretation Code [facility] Remisol Creatinine (U) [Mass/Vol] 17.7 mg/dL Invalid Interpretation Code [facility] Remisol U Prot/Creat Ratio [facility] Invalid Interpretation Code 0.00 - 200.00 [facility] Remisol U Microalbon 07-04-2023 Albumin DL <= 20 mg/L (U) [Mass/Vol] mg/dL Normal 0.0-19.0 [facility] Comment on above: Performed By: #### 1 [id number] ####[facility] [address] [place] [address] U Protein/Creat Ratioon 06-16 Albumin Elph (U) [Mass fraction] <6.[address] [facility] Comment on above: Result Comment: The reference range and other method performance specifications have not been established for this test; results should be integrated into the clinical context for interpretation. Performed By: #### 1 [id number], [id number] ####[address] [place] [address] Creatinine (U) [Mass/Vol] 17.7 mg/dL Invalid Interpretation Code [facility] Comment on above: Result Comment: The reference range and other method performance specifications have not been established for this test; results should be integrated into the clinical context for interpretation. Performed By: #### 1 [id number], [id number] ####[facility] [address] [place] [address] U Prot/Creat Ratio [facility] Invalid Interpretation Code .00-200.00 [facility] Comment on above: Performed By: #### 1 [id number], [id number] ####[facility] [address] [place] [address] Ambulatory Visit Summaryon 0 07-03-2023 Ambulatory Visit [...] Appointments Monday 8:00 AM EDT With: Where: [facility] Normal [address] [place] [address]- \.br\ Medications\.br \ What How Much When Instructions\.b r\ Changed omeprazole (omeprazole 20 mg Cap-DR) 1 Capsules By Mouth Every day [facility]up at [facility]\.br\ Unchanged diltiazem (diltiazem 30 mg Tab) See [...] concerns \.br\ Pharmacy Information\.br \ [facility]: [address] [phone]\.br\ Allergies\.br\ penicillins\.br \ Problems\.br\ Ongoing - Any problem that you are currently receiving treatment for.\.br\ BMI 28.0-28.9,adult \.br\ CAD in [place] artery\.br\ Controlled type 2 diabetes mellitus without complication, without long-term current use of insulin\.br\ Excess ear wax\.br\ GERD without esophagitis\.br \ Longstanding persistent atrial fibrillation\.b r\ Mixed hyperlipidemia\ .br\ Non-smoker\.br\ Primary hypertension\.b r\ Screening for colon cancer\.br\ Screening for prostate cancer\.br\ Historical - Any problem that you are no longer receiving treatment for.\.br\ Atrial fibrillation\.b r\ Dyslipidemia\.b r\ Hypertension\.b r\ Metabolic syndrome\.br\ \.br\ [facility] CHEMISTRYOrdered By: Bobby roman on 07-03-2023 HbA1c (Bld) [Mass fraction] 6.8 % High <=5.9% [facility] ChemAutoSS Family Medicine Office/Clini c Noteon 07-03-2023 Family Medicine Office/Clinic Note HPI Staff Marcelle is a 63 year old male presenting for a full physical exam Health Maintenance: Colonoscopy: coloard 3 years ago, due PSA: ?? [facility] he's unsure when no results in [...] didn't feel it was a problem email [email or web address] must go on refill omeprazole to [facility] History of Present Illness - Here for [...] Daily, # 30 tab(s), Refills(s) 0, Pharmacy: [facility]/pharmacy #[id number] omeprazole, 20 mg = 1 cap(s), Oral, Daily, # 90 cap(s), Refills(s) 1, [facility]acy: [facility], 178, cm, 07/03/23 7:24:00 EDT, Height/Length Dosing, 90, kg, 07/03/23 7:24:00 EDT, Weight Dosing - Follow up in 6 months for Welcome to medicare. Follow-up No qualifying data available Problem List/Past Medical History Ongoing BMI 28.0-28.9,adult CAD in [place] artery Controlled type 2 diabetes mellitus without complication, without long-term current use of insulin Excess ear wax GERD without esophagitis Longstanding (more content not included)... Normal [facility] Comment on above: Result Comment: Elec tronically Signed By: Km NIELSON, Ursula Luis.br\Date and Time Signed: 07/03/23 07:50 EDT Formson 07-03-2023 Forms [id number] #1.00CD:[address] [facility] Forms [id number]# 1.00CD:127 [facility] [id number] 07-03-2023 HbA1c (Bld) [Mass fraction] 6.8 % High <=5.9 [facility] Comment on above: Performed By: #### 1 [id number], [id number] #### [facility] Laboratory [address] [place] [address] CBC AUTO DIFFon 01-04-2023 BASO # 0.1 103/ul Normal 0.0-0.1 [facility] Comment on above: Performed By: #### C BC #### [facility] [address] [address] [address] Lucia San Basophils/100 WBC (Bld) 1.0 % Normal 0.2-2.0 [facility] Comment on above: Performed By: #### C BC #### [facility] [address] [address] [address] Lucia San EO # 0.1 103/ul Normal 0.0-0.7 [facility] Comment on above: Performed By: #### C BC #### [facility] [address] [place] [address] Dr. Lucia San Eosinophils/100 WBC (Bld) 2.5 % Normal 0.9-7.0 [facility] Comment on above: Performed By: #### C BC #### [facility] [address] [place] [address] Dr. Lucia San Erythrocyte distribution width (RBC) [Ratio] 17.3 % Critically high 11.0-15.0 [facility] Comment on above: Performed By: #### C BC #### [facility] [address] [place] [address] Dr. Lucia San Hematocrit (Bld) [Volume fraction] 35.2 % Critically low 42.0-54.0 [facility] Comment on above: Performed By: #### C BC #### [facility] [address] [address] [address] Lucia San Hemoglobin (Bld) [Mass/Vol] 11.3 g/dL Critically low 14.0-18.0 [facility] Comment on above: Performed By: #### C BC #### [facility] [address] [place] [address] Dr. Lucia San IG # 0.02 10e3/ul Normal 0.00-0.03 [facility] Comment on above: Performed By: #### C BC #### [facility] [address] [place] [address] Dr. Lucia San IG % 0.4 % Normal 0.0-0.5 [facility] Comment on above: Performed By: #### C BC #### [facility] [address] [place] [address] Dr. Lucia San LYMPH # 1.6 103/ul Normal 1.2-3.8 [facility] Comment on above: Performed By: #### C BC #### [facility] [address] [place] [address] Dr. Lucia San Lymphocytes/100 WBC (Bld) 30.9 % Normal 20.5-60.0 [facility] Comment on above: Performed By: #### C BC #### [facility] [address] [place] [address] Dr. Lucia San MANUAL DIFF REQ NO Normal [facility] Comment on above: Performed By: #### C BC #### [facility] [address] [place] [address] Dr. Lucia San MCH (RBC) [Entitic mass] 23.9 pg Critically low 25.9-34.0 [facility] Comment on above: Performed By: #### C BC #### [facility] [address] [place] [address] Dr. Lucia San MCHC (RBC) [Mass/Vol] 32.1 g/dL Normal 29.9-35.2 [facility] Comment on above: Performed By: #### C BC #### [facility] [address] [place] [address] Dr. Lucia San MCV (RBC) [Entitic vol] 74.6 fL Critically low 80.0-94.0 [facility] Comment on above: Performed By: #### C BC #### [facility] [address] [place] [address] Dr. Lucia San MONO # 0.5 103/ul Normal 0.3-0.8 [facility] Comment on above: Performed By: #### C BC #### [facility] [address] [place] [address] Dr. Lucia San Monocytes/100 WBC (Bld) 9.1 % Normal 1.7-12.0 [facility] Comment on above: Performed By: #### C BC #### [facility] [address] [place] [address] Dr. Lucia San NEUT # 2.9 103/ul Normal 1.4-6.5 [facility] Comment on above: Performed By: #### C BC #### [facility] [address] [place] [address] Dr. Lucia San Neutrophils/100 WBC (Bld) 56.1 % Normal 43.0-75.0 [facility] Comment on above: Performed By: #### C BC #### [facility] [address] [place] [address] Dr. Lucia San Platelet mean volume (Bld) [Entitic vol] 11.6 fL Normal 9.5-13.5 [facility] Comment on above: Performed By: #### C BC #### [facility] [address] [place] [address] Dr. Lucia San PLT 172 103/ul Normal 150-450 [facility] Comment on above: Performed By: #### C BC #### [facility] [address] [place] [address] Dr. Lucia San RBC 4.72 106/ul Normal 4.70-6.10 [facility] Comment on above: Performed By: #### C BC #### [facility] [address] [place] [address] Dr. Lucia San WBC 5.2 103/ul Normal 4.0-11.0 [facility] Comment on above: Performed By: #### C BC #### [facility] [address] [place], [place] [id number] Dr. Lucia aSn ECHOCARDIO M/2D COMPLETEon 0 01-04-2023 ECHOCARDIO M/2D COMPLETE Patient: MARCELLE DEUTSCH Exam Date: 01/04/2023 : 1960 Gender:M Ordering : DR BLANKA GORE M.D. Admission #: [id number] Family : Order #: [id number] CLICK HERE TO VIEW EXAM ECHOCARDIOGRAM REPORT [...] Area (VTI): 3.28 cm2, 3.28 cm2 Deceleration [place]: 0.48 m/s2 Pressure Half-Time: 1.33 s Peak [...] [place] M.D. on 01/04/2023 at 15:00 Normal [facility] GLYCOHEMOGLOBIN A1Con 2022 ADA RECOMMENDATION SEE BELOW Normal [facility] Comment on above: Result Comment: ADA RECOMMENDED LIMIT 4.0 - 6.0 ADA THERAPEUTIC TARGET < 7.0 ACTION SUGGESTED > 7.0 Performed By: #### A 1C #### [facility] [address] [place] [address] Dr. Lucia San HbA1c (Bld) [Mass fraction] 6.9 % Critically high 4.5-6.2 [facility] Comment on above: Performed By: #### A 1C #### [facility] [address] [address] [address] Lucia San LIPID PROFILEon 01-04-2023 CHOL-HDL RATIO NORM SEE BELOW Normal [facility] Comment on above: Result Comment: 3.3 - 4.4 LOW RISK 4.4 - 7.1 AVERAGE RISK 7.1 - 11.0 MODERATE RISK >11.0 HIGH RISK Performed By: #### L IPID #### [facility] [address] [address] [address] Lucia San Cholesterol [Mass/Vol] 140 mg/dL Normal <=200 [facility] Comment on above: Performed By: #### L IPID #### [facility] [address] [address] [address] Lucia San Cholesterol in HDL [Mass/Vol] 37 mg/dL Critically low 40-60 [facility] Comment on above: Performed By: #### L IPID #### [facility] [address] [address] [address] Lucia San Cholesterol in LDL [Mass/Vol] 80.2 mg/dL Normal [facility] Comment on above: Performed By: #### L IPID #### [facility] [address] [address] [address] Lucia San Cholesterol.total/Cho lesterol in HDL [Mass ratio] 3.8 {ratio} Normal [facility] Comment on above: Performed By: #### L IPID #### [facility] [address] [id number] [address] Lucia San HDL NORMAL > or = 60 mg/dl - LOW CARDIOVASCULAR RISK <40 mg/dl - HIGH CARDIOVASCULAR RISK Normal [facility] Comment on above: Performed By: #### L IPID #### [facility] [address] [id number] [address] Lucia San LDL CALC NORMAL SEE BELOW Normal [facility] Comment on above: Result Comment: <100 mg/dl OPTIMAL 100 - 129 mg/dl NEAR OR ABOVE OPTIMAL 130 - 159 mg/dl BORDERLINE HIGH 160 - 189 mg/dl HIGH >190 mg/dl VERY HIGH Performed By: #### L IPID #### [facility] [address] [place] [address] Dr. Lucia San Triglyceride [Mass/Vol] 114 mg/dL Normal <=150 [facility] Comment on above: Performed By: #### L IPID #### [facility] [address] [place] [address] Dr. Lucia San VLDL CALC 22.8 mg/dL Normal [facility] Comment on above: Performed By: #### L IPID #### [facility] [address] [place] [address] Dr. Lucia San MICROALBUMIN, RAND URon 12-15 mALB 1.5 mg/L Normal <=30.0 [facility] Comment on above: Performed By: #### M ALBR #### [facility] [address] [place] [address] Dr. Lucia San NM STRESS/REST MULTIon 01-04 NM STRESS/REST MULTI Patient: MARCELLE DEUTSCH Exam Date: 01/04/2023 : 1960 Gender:M Ordering : DR BLANKA GORE M.D. Admission #: [id number] Family : Order #: [id number] CLICK HERE TO VIEW EXAM RADIOLOGY REPORT [...] LOCATION: Basal inferior. Mid-anterior. Mid-inferior. Apical inferior. [employer]. SIZE: Large (5 or more segments). SEVERITY: [...] Guzman MD on 01/04/2023 at 11:17 Normal [facility] PROF 14(COMP METB)on 023 Albumin [Mass/Vol] 4.1 g/dL Normal 3.4-5.0 [facility] Comment on above: Performed By: #### C MP #### [facility] [address] [place] [address] Dr. Lucia San Albumin/Globulin [Mass ratio] 1.7 {ratio} Normal [facility] Comment on above: Performed By: #### C MP #### [facility] [address] [place] [address] Dr. Lucia San ALP [Catalytic activity/Vol] 51 U/L Normal 46-116 [facility] Comment on above: Performed By: #### C MP #### [facility] [address] [place] [address] Dr. Lucia San ALT [Catalytic activity/Vol] 49 U/L Normal 16-63 [facility] Comment on above: Performed By: #### C MP #### [facility] [address] [place] [address] Dr. Lucia San Anion gap [Moles/Vol] 16.6 mmol/L Normal [facility] Comment on above: Performed By: #### C MP #### [facility] [address] [place] [address] Dr. Lucia San AST [Catalytic activity/Vol] 28 U/L Normal 15-37 [facility] Comment on above: Performed By: #### C MP #### [facility] [address] [address] [address] Lucia San Bilirubin [Mass/Vol] 1.7 mg/dL Critically high 0.2-1.0 [facility] Comment on above: Performed By: #### C MP #### [facility] [address] [address] [address] Lucia San Calcium [Mass/Vol] 9.2 mg/dL Normal 8.5-10.1 [facility] Comment on above: Performed By: #### C MP #### [facility] [address] [address] [address] Lucia San Chloride [Moles/Vol] 100 mmol/L Normal 98-107 [facility] Comment on above: Performed By: #### C MP #### [facility] [address] [address] [address] Lucia San CO2 [Moles/Vol] 25.9 mmol/L Normal 21.0-32.0 [facility] Comment on above: Performed By: #### C MP #### [facility] [address] [address] [address] Lucia San Creatinine [Mass/Vol] 1.03 mg/dL Normal 0.70-1.30 [facility] Comment on above: Performed By: #### C MP #### [facility] [address] [address] [address] Lucia San EGFR-AF PERUVIAN >60 Normal >=60 [facility] Comment on above: Performed By: #### C MP #### [facility] [address] [address] [address] Lucia San EGFR-NON AF PERUVIAN >60 Normal >=60 [facility] Comment on above: Performed By: #### C MP #### [facility] [address] [address] [address] Lucia San Globulin (S) [Mass/Vol] 2.4 g/dL Normal [facility] Comment on above: Performed By: #### C MP #### [facility] [address] [address] [address] Lucia San Glucose [Mass/Vol] 151 mg/dL Normal [facility] Comment on above: Performed By: #### C MP #### [facility] [address] [place] [address] Dr. Lucia San Performed By: #### A 1C #### [facility] [address] [place] [address] Dr. Lucia San Potassium [Moles/Vol] 4.5 mmol/L Normal 3.5-5.1 [facility] Comment on above: Performed By: #### C MP #### [facility] [address] [place] [address] Dr. Lucia San Protein [Mass/Vol] 6.5 g/dL Normal 6.4-8.2 [facility] Comment on above: Performed By: #### C MP #### [facility] [address] [place] [address] Dr. Lucia San Sodium [Moles/Vol] 138 mmol/L Normal 136-145 [facility] Comment on above: Performed By: #### C MP #### [facility] [address] [place] [address] Dr. Lucia San Urea nitrogen [Mass/Vol] 13.0 mg/dL Normal 7.0-18.0 [facility] Comment on above: Performed By: #### C MP #### [facility] [address] [place] [address] Dr. Lucia San Urea nitrogen/Creatinine [Mass ratio] 12.6 mg/mg Normal [facility] Comment on above: Performed By: #### C MP #### [facility] [address] [place] [address] Dr. Lucia Rondon 02-03-2022 DANIS Office Visit (CARDMN) MARCELLE DEUTSCH ([id number]) 1960 M Date Time Provider Department 02/03/22 8:30 AM JANNET GONZALEZ During your visit today, we recorded the following information about you: Pulse Blood pressure Weight Height 60/minute 180/76 85.3 kg 1.765 m Jannet Gonzalez MD 02/03/2022 9:58 AM Signed [facility]ascencia Department of Cardiovascular Medicine SECTION OF CARDIAC PACING and ELECTROPHYSIOLOGY OUTPATIENT VISIT DATE February 03, 2022 OUTPATIENT VISIT TYPE CONSULTATION PRIMARY CARE PHYSICIAN: Mark Browning DO [address] [place] [address] CHIEF COMPLAINT: PAF HISTORY OF PRESENT ILLNESS [...] he is in SR. He denies syncope. [id number] 3 (HTN, CAD, DM) tolerating Xarelto PAST MEDICAL HISTORY Diagnosis Date - Atrial fibrillation (HCC) 2013 - CAD (coronary artery disease) 09/02/2014 - Diabetes mellitus (HCC) - Dyslipidemia - Hypertension - Metabolic syndrome PAST SURGICAL HISTORY Procedure Laterality Date - AFIB PVI W/COMPL EP STUDY 07/10/2017 - CARDIAC CATH 09/02/2014 AIR FILLER of proximal RCA. 70% ostial D1. Preserved [...] Letter Text Normal [facility] Dermatopathologyon Dermatopathology [facility] Dermatopathology Laboratory [address] [place] [id number] DERMATOPATHOLOGY REPORT Name:MARCELLE DEUTSCH [facility]. Rec #. [id number] Location: [facility] Date of Procedure: 10/02/2020 Race: Unknown Date Received: 10/06/2020 /Sex: 1960 (Age: 60) / M Date Reported: 10/08/2020 Other: Submitting Physician:SONIA GREEN APRN, WINDMILL MECHANIC-C FINAL DIAGNOSIS A. SKIN, (R) NECK, BIOPSY: [...] is a mayers piece of skin measuring [id number] in aggreg (small). The specimen is inked and embedded in toto. B: Received in formalin is a mayers piece of skin measuring [id number]. The specimen is inked and embedded in toto. 10/06/2020 Microscopic Description: A,B: Microscopic examination performed. Normal [facility] Comment on above: Performed By: #### D #### Dermatopathology Vital Signs Date Time Vital Sign Value Performing Clinician Facility 03-14-2024 10:16-0400 Body temperature 97.52 [degF] Ana StevieNintex [facility] 03-14-2024 10:16-0400 Diastolic blood pressure 85 mm[Hg] Red Butler [facility] 03-14-2024 10:16-0400 Heart rate 59 /min [facility] 03-14-2024 10:16-0400 Mean blood pressure 116 mm[Hg] Ana [facility] 03-14-2024 10:16-0400 Respiratory rate 16 /min Ana [facility] 03-14-2024 10:16-0400 SaO2% (BldA) [Mass fraction] 99 % Ana [facility] 03-14-2024 10:16-0400 Systolic blood pressure 179 mm[Hg] Red Butler [facility] 02-15-2024 13:10-0400 Blood Pressure Location Red Butler [facility] 02-15-2024 13:10-0400 Body temperature 98.06 [degF] Un[facility] 02-15-2024 13:10-0400 Diastolic blood pressure 61 mm[Hg] Ana Lingke [facility] 02-15-2024 13:10-0400 Heart rate 62 /min Ana Lingke [facility] 02-15-2024 13:10-0400 Mean blood pressure 77 mm[Hg] Ana Lingke [facility] 02-15-2024 13:10-0400 Respiratory rate 16 /min Ana Spencer [facility] 02-15-2024 13:10-0400 SaO2% (BldA) [Mass fraction] 99 % Ana Spencer [facility] 02-15-2024 13:10-0400 Systolic blood pressure 108 mm[Hg] Ana Spencer [facility] 02-08-2024 13:00-0400 Blood Pressure Location Ana Spencer [facility] 02-08-2024 13:00-0400 Body temperature 98.24 [degF] Ana Spencer [facility] 02-08-2024 13:00-0400 Diastolic blood pressure 82 mm[Hg] Ana Lingke [facility] 02-08-2024 13:00-0400 Heart rate 80 /min Ana Lingke [facility] 02-08-2024 13:00-0400 SaO2% (BldA) [Mass fraction] 100 % Ana Hubbardboske [facility] 02-08-2024 13:00-0400 Systolic blood pressure 142 mm[Hg] Ana Lingke [facility] 01-25-2024 08:58-0400 Diastolic blood pressure 82 mm[Hg] Ana Spencer [facility] 01-25-2024 08:58-0400 Heart rate 65 /min Ana Spencer [facility] 01-25-2024 08:58-0400 Mean blood pressure 118 mm[Hg] Ana Spencer [facility] 01-25-2024 08:58-0400 SaO2% (BldA) [Mass fraction] 99 % Ana Spencer [facility] 01-25-2024 08:58-0400 Systolic blood pressure 190 mm[Hg] Ana Spencer [facility] 08-16-2023 08:21-0400 Blood Pressure Location Shelley Lue [facility] 08-16-2023 08:21-0400 Diastolic blood pressure 83 mm[Hg] Shelley Lue [facility] 08-16-2023 08:21-0400 Heart rate 69 /min Shelley Lue [facility] 08-16-2023 08:21-0400 Respiratory rate 16 /min Shelley Lue [facility] 08-16-2023 08:21-0400 Systolic blood pressure 166 mm[Hg] Shelley Lue [facility] Encounters Encounter Date Encounter Type Care Provider Facility Start: 07-12-2024 End: 07-12-2024 ambulatory [facility] Start: 07-04-2024 End: 07-04-2024 ambulatory Ana Spencer Facility:[facility] Start: 07-04-2024 End: 07-04-2024 Patient encounter procedure Ana Spencer [facility] Start: 06-27-2024 End: 07-10-2024 Orders Only Jannet Gonzalez MD Work Phone: Cardiology Comment on above: Atrial fibrillation, unspecified type (HCC) (Primary Dx) Start: 2024 End: 2024 ambulatory Ursula Love Facility:[facility] Start: 06-06-2024 End: 06-06-2024 ambulatory Ana Spencer Facility:[facility] Start: 06-06-2024 End: 06-06-2024 Patient encounter procedure Ana Spencer [facility] Start: 05-09-2024 End: 05-09-2024 ambulatory Ana Spencer Facility:[facility] Start: 05-09-2024 End: 05-09-2024 Patient encounter procedure Ana Spencer [facility] Start: 04-24-2024 End: 05-08-2024 ambulatory [facility] Start: 04-11-2024 End: 04-11-2024 ambulatory Ana Spencer Facility:[facility] Start: 04-11-2024 End: 04-11-2024 Patient encounter procedure Ana Spencer [facility] Start: 03-26-2024 End: 03-26-2024 ambulatory Ursula Love Facility:[facility] Start: 03-22-2024 End: 04-09-2024 ambulatory Ursula Love Facility:[facility] Start: 03-14-2024 End: 03-14-2024 ambulatory Ana Spencer Facility:[facility] Start: 03-14-2024 End: 03-14-2024 Patient encounter procedure Ana Spencer [facility] Start: 03-12-2024 End: 03-12-2024 ambulatory Ana Spencer Facility:[facility] Start: 03-12-2024 End: 03-12-2024 Patient encounter procedure Ana Spencer [facility] Start: 02-15-2024 End: 02-15-2024 ambulatory Ana Spencer Facility:[facility] Start: 02-15-2024 End: 02-15-2024 Patient encounter procedure Ana Spencer [facility] Start: 02-08-2024 End: 02-08-2024 ambulatory Ana Spencer Facility:[facility] Start: 02-08-2024 End: 02-08-2024 Patient encounter procedure Ana Spencer [facility] Start: 02-01-2024 End: 02-01-2024 ambulatory Ana Spencer Facility:[facility] Start: 02-01-2024 End: 02-01-2024 Patient encounter procedure Ana Spencer [facility] Start: 01-25-2024 End: 02-07-2024 ambulatory Ursula Love Facility:[facility] [place] Start: 01-25-2024 End: 01-25-2024 Patient encounter procedure Ana Spencer [facility] Start: 01-16-2024 End: 01-16-2024 ambulatory Bharath Melton Facility:[facility] Start: 01-16-2024 End: 01-16-2024 Patient encounter procedure Bharath Melton [facility] Start: 12-29-2023 End: 12-29-2023 ambulatory PARISA GOPAL [facility] Start: 12-28-2023 End: 12-28-2023 ambulatory Ursula Love Facility:[facility] [place] Start: 12-27-2023 End: 12-27-2023 ambulatory Ursula Love Facility:[facility] Start: 12-27-2023 End: 12-27-2023 Patient encounter procedure Ursula Love [facility] Start: 12-19-2023 ambulatory Ursula Love Facility :[id number] Start: 12-18-2023 End: 12-18-2023 Lab Drop off Ursula Love [facility] Start: 12-18-2023 End: 12-18-2023 ambulatory Ursula Love Facility:[facility] Start: 12-18-2023 End: 12-18-2023 ambulatory Ursula Love Facility:[facility] Start: 10-04-2023 End: 10-04-2023 ambulatory Jose Luis VALLEJOL Facility: [facility] Start: 10-04-2023 End: 10-04-2023 Patient encounter procedure Jose Luis R NILL [facility] Nill[facility] [place] Start: 09-20-2023 End: 09-20-2023 ambulatory Jose Luis R NILL Facility:[id number] Start: 08-29-2023 End: 08-29-2023 ambulatory Ursula Love Facility: [facility] Start: 08-16-2023 End: 08-16-2023 ambulatory Shelley Bruce Facility: [facility] Start: 08-16-2023 End: 08-16-2023 Patient encounter procedure Shelley Bruce [facility] Start: 08-08-2023 ambulatory Jose Luis VALLEJOL Facility:[facility] Start: 08-07-2023 End: 08-07-2023 ambulatory Ursula Love Facility:[facility] Start: 08-07-2023 End: 08-07-2023 Patient encounter procedure Ursula Love [facility] Start: 08-04-2023 End: 08-04-2023 Lab Drop off Karen L Juan Antonio [facility] Start: 08-04-2023 End: 08-04-2023 ambulatory TAILOR HELPER Karen L Juan Antonio Facility:[facility] Start: 08-03-2023 ambulatory Jose Luis VALLEJOL Facility:[facility] Start: 07-19-2023 End: 07-19-2023 ambulatory TAILOR HELPER Karen L Juan Antonio Facility:[facility] Start: 07-04-2023 End: 07-04-2023 ambulatory Ursula Love Facility:[facility] Start: 07-04-2023 End: 07-04-2023 Lab Drop off Ursula Love [facility] Start: 07-03-2023 End: 07-03-2023 Lab Drop off Ursula Love [facility] Start: 07-03-2023 End: 07-03-2023 ambulatory Ursual Love Facility:[facility] Start: 01-04-2023 End: 01-05-2023 ambulatory URSULA LOVE Facility: Start: 04-01-2022 End: 04-01-2022 Off-Site Ursula Love [facility] Start: 03-30-2022 End: 03-30-2022 Off-Site Ursula Love [facility] [place] Start: 02-03-2022 Orders Only Jannet Timmons Work Phone: Cardiology Comment on above: Persistent atrial fi brillation (HCC) (Primary Dx) Procedures Date Procedure Procedure Detail Performing Clinician Start: 09-20-2023 Colonoscopy Jose Luis NI LL Cardiac ablation sys tem (physical object) Shelley Bruce Cardiac catheterization Hernandez aekatia NILL Repair of musculoten dinous cuff of shoulder Jose Luis NILL Rupture of tendon of biceps (disorder) Jose Luis NILL Structure of right s houlder region (body structure) Ursula Love Tonsillectomy Jose Luis NILL Plan of Treatment Date Care Activity Detail Author Start: 12-19-2024 End: 12-19-2024 Patient encounter procedure 12/19/2024 9:15 AM EST Office Visit Cardiology [address] [place] [address] Jannet Gonzalez MD [address] [place] [address] Paroxysmal atrial fibrillation (HCC) [I48.0] Cardiology Comment on above: Paroxysmal atrial fi brillation (HCC) [I48.0] Start: 12-19-2024 End: 12-19-2024 ambulatory 12/19/2024 8:30 AM EST Results Only Cardiology [address] [id number] Paroxysmal atrial fibrillation (HCC) [I48.0] Cardiology Comment on above: Paroxysmal atrial fi brillation (HCC) [I48.0] Start: 12-17-2024 ambulatory Ambulatory Facility:[facility] Start: 06-16-2024 Covid-19 Vaccine () Covid-19 Vaccine () [facility] Start: 06-16-2024 Influenza vaccination Influenza Vacc ine (#1) [facility] Start: 10-16-2023 Advance Directive Discussion Advance Directive Discussion [facility] Start: 2023 Pneumococcal Vaccine : 65+ (1 of 1 - PCV) Pneumococcal Vaccine: 65+ (1 of 1 - PCV) [facility] Start: 07-04-2020 DIABETES SCREEN DIABETES SCREEN [facility] Start: 07-04-2020 Diabetes Screening Diabetes Screenin g [facility] Start: 2018 RSV Vaccine (1 - 1-d ose 60+ series) RSV Vaccine (1 - 1-dose 60+ series) [facility] Start: 2013 PROSTATE CANCER SCREENING DISCUSSION PROSTATE CANCER SCREENING DISCUSSION [facility] Start: 2013 Prostate specific antigen measurement Prostate Cancer Screening Discussion [facility] Start: 2008 SHINGRIX VACCINE (1 of 2) SHINGRIX VACCINE (1 of 2) [facility] Start: 2003 COLOGUARD (FIT-DNA) COLOGUARD (FIT-D NA) [facility] Start: 2003 Colonoscopy COLONOSCOPY [facility] Start: 2003 COLORECTAL CANCER SCREENING COLORECTAL CANCER SCREENING [facility] Start: [address] COLONOGRAPHY [facility] Start: 2003 FECAL OCCULT BLOOD FECAL OCCULT BLOO D [facility] Start: 2003 Screening for malign ant neoplasm of colon [facility] Start: 2003 SIGMOIDOSCOPY SIGMOIDOSCOPY 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 ANNUAL PCP TEAM CHRONIC DISEASE VISIT [facility] Start: 1976 Anxiety Screening Anxiety Screening [facility] Start: 1976 BP CONTROLLED (<130/80) BP CONTROLLE D (<130/80) [facility] Start: 1976 Depression Screening Depression Scre ening [facility] Start: 1976 Hepatitis B surface antibody level LDL CHOLESTEROL [facility] Start: 1976 HEPATITIS C SCREENING HEPATITIS C [facility] Start: 1976 Hepatitis C screening Hepatitis C Sc [facility] Start: 1976 HIV SCREENING HIV SCREENING [facility] Start: 1970 Adult depression screening assessment DEPRESSION SCREENING [facility] Start: 1960 Abdominal aortic aneurysm screening Abdominal Aortic Aneurysm Screening [facility] End: 02-03-2023 ECG COMPLETE ECG COMPLETE ECG Routine Persistent atrial fibrillation (HCC) 1 Occurrences starting 02/03/2022 until 02/03/2023 [facility] Work Phone: Comment on above: 1 Occurrences starti ng 02/03/2022 until 02/03/2023 End: 06-27-2025 ECG COMPLETE ECG COMPLETE ECG Routine Atrial fibrillation, unspecified type (HCC) 1 Occurrences starting 06/27/2024 until 06/27/2025 [facility] Work Phone: Comment on above: 1 Occurrences starti ng 06/27/2024 until [facility] Immunization Date Immunization Notes Care Provider Fa latoya 08-31-2021 SARS-CoV-2 (COVID-19 ) Ad26 vaccine, recombinant Ursula Ross [facility] Comment on above: Result Comment: 2021: [id number] 07-23-2021 influenza virus vaccine, unspecified formulation Ursulahiram Love [facility] 12-23-2020 SARS-CoV-2 (COVID-19 ) Ad26 vaccine, recombinant Ursula Ross [facility] 07-30-2018 influenza virus vaccine, unspecified formulation Ursula Hoseanna [facility] NEGATED: Highlighted row has not occurred!07-03-2023 influenza virus vaccine, unspecified formulation Ursula Hoseanna [facility] Payers Date Payer Category Payer Private Health Insurance [facility] AARP SUPPLEMENT [id number] 2023-Present [phone] [address] [place] [address] Indemnity [id number] 2023 Medicare MEDICARE MEDICAR E A AND B [id number] 2023-Present [phone] [place] [address] Medicare [id number] 2023 Medicare [id number] 2023 Unknown [id number] 2021 Unknown ANTHEM BLUE ACCE SS PPO [id number] 2021-Present [phone] [address] [place] [address] PPO [id number] 1959 Unknown [id number] 1960 Unknown [id number] 2.16.840.1.914864.3.579.2. 593 1958 Unknown [id number] 2.16.840.1.351988.3.579.2. 593 1958 Unknown [id number] 2.16.840.1.927222.3.579.2. 727 1958 Unknown [id number] 2.16.840.1.472445.3.579.2. 727 1958 Unknown [id number] 2.16.840.1.423013.3.579.2. 727 1958 Unknown [id number] 2.16.840.1.938515.3.579.2. 727 1958 Unknown [id number] 2.16.840.1.251525.3.579.2. 727 1958 Unknown [id number] 2.16.840.1.726041.3.579.2. 72 1960 Unknown [id number] 2.16.840.1.461692.3.579.2. 1960 Unknown [id number] 2.16.840.1.877060.3.579.2. 1958 Unknown [id number] 2.16.840.1.011340.3.579.2. 1960 Unknown [id number] 2.16.840.1.820444.3.579.2. 1960 Unknown [id number] 2.16.840.1.330311.3.579.2. 1960 Unknown [id number] 2.840.1.566873.3.579.2. 1960 Unknown [id number] 2.16.840.1.773904.3.579.2. 1960 Unknown [id number] 2.16.840.1.133962.3.579.2. 1960 Unknown [id number] 2.16840.1.634705.3.579.2. 1960 Unknown [id number] 2.16840.1.449387.3.579.2. 1958 Unknown [id number] 2.16.840.1.318489.3.579.2. 1958 Unknown [id number] 2.16.840.1.862726.3.579.2. 1958 Unknown [id number] 2.16.840.1.642482.3.579.2. 1958 Unknown [id number] 2.16.840.1.824282.3.579.2. 1958 Unknown [id number] 2.16.840.1.233110.3.579.2. 727 1958 Unknown [id number] 2.16.840.1.974921.3.579.2. 727 1958 Unknown [id number] 2.16.840.1.858079.3.579.2. 727 1958 Unknown [id number] 2.16.840.1.833262.3.579.2. 727 1958 Unknown [id number] 2.16.840.1.357672.3.579.2. 727 1958 Unknown [id number] 2.16.840.1.987885.3.579.2. 72 1958 Unknown [id number] 2.16.840.1.225533.3.579.2. 72 1958 Unknown [id number] 2.16.840.1.881703.3.579.2. 727 1958 Unknown [id number] 2.16.840.1.506833.3.579.2. 727 1958 Unknown [id number] 2.16.840.1.094961.3.579.2. 727 1958 Unknown [id number] 2.16.840.1.974907.3.579.2. 727 1958 Unknown [id number] 2.16.840.1.404516.3.579.2. 727 1958 Unknown [id number] 2.16.840.1.470305.3.579.2. 727 1960 Unknown [id number] 2.16.840.1.923020.3.579.2. 727 Social History Date Type Detail Facility Start: 08-25-2014 End: 03-26-2024 Tobacco smoking status SDIS Ex-smoker [facility] Comment on above: Quit in 2013 after M I quit age 53 (39 pack years) Start: 10-25-1955 End: 08-09-2014 History of tobacco use Current smoker [facility] Start: 10-25-1955 End: 08-09-2014 History of tobacco use Cigarette Smoker [facility] Start: 08-25-2014 End: 09-23-2020 Cigarettes smoked current (pack per day) - Reported 0.5 [facility] Start: 08-25-2014 Tobacco use and exposure Smokeless tobacco non-user [facility] Start: 02-03-2022 Alcohol intake Current drinke r of alcohol (finding) [facility] Start: 1960 Sex Assigned At Not on file [facility] Start: 01-24-2022 End: 02-03-2022 Exposure to SARS-CoV-2 (event) Not sure [facility] Tobacco smoking status No Smokin g Status Entered [facility] Start: 09-23-2020 End: 02-03-2022 Sex Assigned At Male [facility] Start: 04-01-2022 Tobacco smoking status Never s moked tobacco (finding) [facility] Tobacco smoking status Never [facility] Comment on above: Quit in 2013 after [...] 08-16-2023 Functional Status N/A [facility] 04-01-2022 Functional Status Telehealth Patient Oral [facility] [place] Clinical Notes 02-03-2022 to 07-12-2024 RadiologyRadiologyRadiologyRadiologyRadiologyRadiologyLaboratoryRadiologyLaborat oryRadiologyLaboratoryRadiologyLaboratoryRadiologyRadiologyLaboratoryRadiologyLa boratoryRadiologyLaboratoryRadiology Note Date & Type Note Facility 07-12-2024 Note [place] [facility] Subjective Marcelel Deutsch is a 64 y.o. year old male patient being seen for 6 mo follow up CAD, PAF, AAA. Still takes cardizem PRN for episodes of afib. Denies chest pain and SOB. He was started on baclofen yesterday and wants to know if this is ok for him to take. Patient Active Problem List Diagnosis Abnormal stress test Atrial fibrillation (CMS/HCC) CAD (coronary artery disease) Coronary arteriosclerosis Chronic anticoagulation Dyslipidemia Hypertension Metabolic syndrome Aneurysm of ascending aorta without rupture (CMS/HCC) Aortic aneurysm (CMS/HCC) BMI 28.0-28.9,adult BPH (benign prostatic hyperplasia) Controlled type 2 diabetes mellitus without complication, without long-term current use of insulin (CMS/HCC) Dysuria Excess ear wax External bleeding hemorrhoids Family history of kidney cancer Former smoker GERD without esophagitis Gross hematuria Hematuria Kidney stone Left flank pain Longstanding persistent atrial fibrillation (CMS/HCC) Mixed hyperlipidemia Overweight Personal history of kidney stones Positive colorectal cancer screening using Cologuard test Tubular adenoma of rectum AAA (abdominal aortic aneurysm) (CMS/HCC) Hip pain, bilateral Microcytic anemia Spleen enlarged Family History Problem Relation Name Age of Onset Coronary artery disease Father Atrial fibrillation Father Heart attack Brother Social History Tobacco Use Smoking status: Former Types: Cigarettes Quit date: 2014 Years since quittin.7 Smokeless tobacco: Never Substance Use Topics Alcohol use: Yes Comment: occasional HPI He is a 64 yo man with prior history of: 1. CAD s/p cardiac cath in 2013 in the setting of an abnormal stress test that showed AIR FILLER of the RCA with filling via left to right collaterals. He also had a 70% stenosis in a diagonal branch (the prior report mentions that it is not amenable to intervention). At that time left-ventricular gram showed normal left ventricular ejection fraction at 60%. 2. Paroxysmal atrial fibrillation, status post ablation in 2017 at the [facility]. He also had prior cardioversion. He is currently maintained on eliquis. 3. Hypertension: He reports that he has elevated blood pressure every time he goes to the doctor's office or even when he checks it himself at home. His blood pressure has been controlled at home, with average of 123/74. 4. Aneurysm of the ascending and descending aorta. In the past few months when I saw him at last visit in November 2022 he was having symptoms of angina with stress and exertion. I had added Ranexa. I checked a stress test that did not show ischemia. His echocardiogram showed preserved ventricular and valvular function. He does not have shortness of breath, palpitations. He has no lower extremity edema. He does not have claudication. He gets occasional episodes of atrial fibrillation. He has a [employer] machine that he uses to transmit ECG. This shows AF episodes that later revert to SR. He reports that 1 he is having atrial fibrillation he gets severe symptoms of angina. He takes Cardizem 60 mg as needed and this controls the atrial fibrillation but he feels very bad while in atrial fibrillation. He is interested in exploring options for further therapy. Review of Systems Cardiovascular: Positive for palpitations (intermittent episodes of afib). Musculoskeletal: Positive for back pain and joint pain. All other systems reviewed and are negative. Objective Visit Vitals BP 180/82 (BP Location: Left arm, Patient Position: Sitting) Pulse 59 Ht 1.778 m (5' 10 ) Wt 83.9 kg (185 lb) SpO2 98% BMI 26.54 kg/m??? Smoking Status Former BSA 2.04 m??? Physical Exam Constitutional: Appearance: He is [...] and oriented to person, place, and time. Psychiat (more content not included)... [facility] 01-25-2024 Hospital Discharge instructions Follow Up Care 01/25/2024 12:17:38 With:Tj BURTON, Ana Rivas, ONC Address: [facility] [address] [place] [phone] When: Unknown Comments:cbc, cmp, iron studies in 3mo and 6mofollow-up in 6mo with WINDMILL MECHANIC [facility] 12-29-2023 Note LDL > 70 therefore c ontinue lipitor 80 mg and will add zetia 10 mg daily Repeat lipid level before next appt in about 3-6 months [facility] 12-29-2023 Note Hypertension is typi jimmie stable with review of his home b/p log. Definitely has white coat syndrome Continue norvasc, clonidine, lisinopril and toprol [facility] 12-29-2023 Note Coronary artery dise ase is stable Continue GDMT- ASA, lipitor, imdur, toprol, and ranexa continue risk factor modifications- heart healthy diet, regular exercise as tolerated and continue all medications. [facility] 12-29-2023 Note Rate stable with top rol Anticoagulation with eliquis and denied any bleeding tendencies. [facility] 12-29-2023 Note Order ABD Aorta US i n 6 months to re-evalulate infrarenal AAA. [facility] 12-29-2023 Hospital Discharge instructions Follow Up Care 12/29/2023 11:16:26 With:Tj NATHAN-PEMA, Ana Rivas, ONC Address: [facility] [address] [place] [address] [place] [address]- [phone] When: Unknown Comments:IV Injectafer x2B12 injections weekly x4, then monthlycbc, cmp, iron studies in 8wksfollow-up in 8wks with WINDMILL MECH[employer] [facility] 12-29-2023 Note UTP CARDIOLOGY PROGR ESS [...] of an abnormal stress test that showed AIR FILLER of the RCA with filling via left to right collaterals. He also had a 70% stenosis in a diagonal branch (the prior report mentions that it is not amenable to intervention). At that time left-ventricular gram showed normal left ventricular ejection fraction at 60%. 2. Paroxysmal atrial fibrillation, status post ablation in 2017 at the [facility]. He also had prior cardioversion. He is [...] episodes of atrial fibrillation. He has a [employer] machine that he uses to transmit ECG. [...] 2 seconds. Neurol (more content not included)... [facility] 12-29-2023 Note Patient here for 6 [...] All other systems reviewed and are negative. [facility] 12-29-2023 Note HTN management with goal b/p < 130/80 Monitor b/p at home Routine monitoring- will repeat Echocardiogram in 6 months with f/u with Dr Gore. D/W pt that he is to call 911 for sharp, tearing chest pain or back pain, call office for b/p consistently > 130/80 and he voiced understanding [facility] 08-29-2023 Note Chief Complaint consultation for [...] 28.0-28.9,adult BPH (benign prostatic hyperplasia) CAD in [place] artery Controlled type 2 diabetes mellitus without [...] mg= 2 tab(s (more content not included)... [facility] Comment on above: Result Comment: Elec tronically [...] include: ?8 oz (237 mL) of milk, urrdjxy-qzobvgypitgc-bxbaf milk, and calcium-fortifiedfruit juice. Calcium-fortified means that [...] ?Spinach (cooked), rhubarb, beets, sweet potatoes, and American chard. ?Peanuts. ?Potato chips, chinese fries, and baked potatoes with skin on. ?Nuts and nut products. ?Chocolate. If you regularly take a diuretic medicine, make sure to eat at least 1 or 2 servings of fruits or vegetables that are high in potassium each day. These include: ?Avocado. ?Banana. ?Young, prune, carrot, or tomato juice. ?Baked potato. [...] magnesium, fish oil, or vitamin B6. Take qwmb-ayk-dloosyv and prescription medicines only as told by [...] Casseroles. Pizza. Lasagna. Frozen meals. Potato chips. Mauritanian fries. The items listed above may not [...] provider. Document Revised: 06/13/2022 Document Reviewed: 06/13/2022 [email or web address] Patient Education 2022 [facility] [facility]. Follow Up Care 08/08/2023 13:37:21 With:Teo NIELSON, Shelley Sidhu, URL, URO Address: When: Unknown Comments:PRN [facility] 01-04-2023 Note CARDIAC STRESS TEST [...] interpreted and reported myocardial perfusion scan findings. [facility] 04-01-2022 Hospital Discharge instructions Patient Education [...] quitting, ask your health care provider. Take tlnr-uxs-ajdjbdv and prescription medicines only as told by [...] 10/07/2014 Document Revised: 05/27/2019 Document Reviewed: 05/03/2019 [email or web address] Patient Education 2020 [employer] [facility]. 04/01/2022 13:38:40 Hyperglycemia Hyperglycemia Hyperglycemia occurs when [...] or polycystic ovarian syndrome (PCOS). Being of [place]-, -[place], /, or / descent. What are the [...] these instructions at home: General instructions Take heaz-rwo-nnpemhx and prescription medicines only as told by [...] 03/28/2002 Document Revised: 06/19/2017 Document Reviewed: 06/19/2017 [email or web address] Patient Education 2020 [employer] [facility]. 04/01/2022 13:38:33 Atrial Fibrillation Atrial Fibrillation Atrial [...] may be diagnosed with: Electrocardiogram (ECG). Ambulatory drug room operator. This device records your heartbeats for 24 [...] 10/02/2006 Document Revised: 11/22/2018 Document Reviewed: 11/23/2018 [email or web address] Patient Education 2020 [facility] [facility]. 04/01/2022 13:38:29 Pinched Nerve Pinched Nerve A [...] work. Follow these instructions at home: Take unas-vhj-ohathky and prescription medicines only as told by [...] leg, or the back or neck. Take jdwc-gev-pjohedb and prescription medicines only as told by [...] 09/22/2003 Document Revised: 10/19/2018 Document Reviewed: 10/16/2018 [email or web address] Patient Education 2020 [facility] [employer]. [facility] [place] [facility] 02-03-2022 Note HNO ID: [id number] Author: Jannet Gonzalez MD Service: ? Author Type: Physician Type: Progress Notes Filed: 02/03/2022 9:58 AM Note Text: [facility]asc[facility] Department of Cardiovascular Medicine SECTION OF CARDIAC PACING and ELECTROPHYSIOLOGY OUTPATIENT VISIT DATE February 03, 2022 OUTPATIENT VISIT TYPE CONSULTATION PRIMARY CARE PHYSICIAN: Mark Browning DO [address] [place] [address] CHIEF COMPLAINT: PAF HISTORY OF PRESENT ILLNESS [...] he is in SR. He denies syncope. [id number] 3 (HTN, CAD, DM) tolerating Xarelto PAST MEDICAL HISTORY Diagnosis Date - Atrial fibrillation (HCC) 2013 - CAD (coronary artery disease) 09/02/2014 - Diabetes mellitus (HCC) - Dyslipidemia - Hypertension - Metabolic syndrome PAST SURGICAL HISTORY Procedure Laterality Date - AFIB PVI W/COMPL EP STUDY 07/10/2017 - CARDIAC CATH 09/02/2014 AIR FILLER of proximal RCA. 70% ostial D1. Preserved [...] note No data available for this section [facility] [place] Evaluation + Plan note Future Appointments Appointment Date:01/03/2024 08:00:00 AM Scheduled Provider: Location:[facility] Appointment Type: Medicare Wellness Welcome Appointment Date:01/03/2024 08:40:00 AM Scheduled Provider:Ursula Love MD Location:[facility] Appointment Type: Open Diagnostic Tests PendingPSA Free & Total 07/03/23Microalbumin Level Urine 07/03/23U Protein/Creat Ratio 9/18/23 [facility] Evaluation + Plan note Future Appointments Appointment Date:01/03/2024 08:00:00 AM Scheduled Provider: Location:[facility] Appointment Type:FM Medicare Wellness Welcome Appointment Date:01/03/2024 08:40:00 AM Scheduled Provider:Ursula Love MD Location:[facility] Appointment Type:[facility] + Plan note Future Appointments Appointment Date:08/29/2023 02:20:00 PM Scheduled Provider:Jose Luis THOMAS MD Location:[facility] Appointment Type: Appointment Date:01/03/2024 08:00:00 AM Scheduled Provider: Location:[facility] Appointment Type:FM Medicare Wellness [facility] Appointment Date:01/03/2024 08:40:00 AM Scheduled Provider:Ursula Love MD Location:[facility] Appointment Type: Open Diagnostic Tests PendingUrine Culture 08/04/23 Future Scheduled TestsCT Abdomen/Pelvis w/o Contrast 08/02/23 [facility] Evaluation + Plan note Future Appointments Appointment Date:08/29/2023 02:20:00 PM Scheduled Provider:Jose Luis THOMAS MD Location:[facility] Appointment Type: Appointment Date:01/03/2024 08:00:00 AM Scheduled Provider[facility] Type:FM Medicare Wellness [facility] Appointment Date:01/03/2024 08:40:00 AM Scheduled Provider:Ursula Love MD Location:[facility] Appointment Type:[facility] Evaluation + Plan note Future Appointments Appointment Date:08/29/2023 02:20:00 PM Scheduled Provider:Jose Luis THOMAS MD Location:[facility] Appointment Type: Appointment Date:01/03/2024 08:00:00 AM Scheduled Provider: Location:[facility] Appointment Type:FM Medicare Wellness Welcome Appointment Date:01/03/2024 08:40:00 AM Scheduled Provider:Ursula Love MD [facility] Type: Open Future Scheduled TestsUS Aorta 08/08/24 [facility] Evaluation + Plan note Future Appointments Appointment Date:01/03/2024 08:00:00 AM Scheduled Provider: Location:[facility] Appointment Type:FM Medicare Wellness Welcome Appointment Date:01/03/2024 08:40:00 AM Scheduled Provider:Ursula Love MD Location:[facility] Appointment Type: Open Future Scheduled TestsUS Aorta 08/08/24 [facility] [place] Evaluation + Plan note Future Appointments Appointment Date:12/17/2024 08:00:00 AM Scheduled Provider: Location:[facility] Appointment Type:FM Medicare Wellness Subsequent Diagnostic Tests PendingHCV Antibody RFX to Quant PCR 12/18/23 Future Scheduled TestsCT Chest, Low Dose Screening 12/18/23US Aorta 08/08/24 [facility] Evaluation + Plan note Future Appointments Appointment Date:03/25/2024 10:45:00 AM Scheduled Provider:Ursula Love MD Location:[facility] Appointment Type: Open Appointment Date:12/17/2024 08:00:00 AM Scheduled Provider: Location:[facility] Appointment Type:FM Medicare Wellness Subsequent Future Scheduled TestsUS Aorta 08/08/24 [facility] Evaluation + Plan note Future Appointments Appointment Date:01/25/2024 09:00:00 AM Scheduled Provider:Ana Kumar [facility]ONC Office Visit [facility] ([place]) Appointment Date:03/25/2024 10:45:00 AM Scheduled Provider:Ursula Love MD Location:[facility] Appointment Type: Open Appointment Date:12/17/2024 08:00:00 AM Scheduled Provider: Location:[facility] Appointment Type:FM Medicare Wellness Subsequent Diagnostic Tests PendingImmunofixation Serum 01/16/24Free K+L Lt Chains,Qn,S 01/16/24Protein Electrophoresis 01/16/24 Future Scheduled TestsUS Aorta 08/08/24 [facility] Evaluation + Plan note Future Appointments [...] Scheduled Provider:Ursula Love MD Location:[facility] Appointment Type:FM Open Appointment Date:12/17/2024 08:00:00 AM Scheduled Provider: Location:[facility] Appointment Type: Medicare Wellness Subsequent Future Scheduled TestsCBC w/ Auto Diff 03/21/24Comprehensive Metabolic Panel 03/21/24Ferritin 03/21/24Iron Level 03/21/24Iron Percent Saturation 03/21/24Transferrin 03/21/24US Aorta 08/08/24 [facility] Evaluation + Plan note Future Appointments [...] Scheduled Provider:Ursula Love MD Location:[facility] Appointment Type:FM Open Appointment Date:04/11/2024 [...] (FT) Appointment Date:12/17/2024 08:00:00 AM Scheduled Provider: Location:[facility] Appointment Type: Medicare Wellness Subsequent [...] 03/21/24Iron Percent Saturation 03/21/24Transferrin 03/21/24US Aorta 08/08/24 [facility] Evaluation + Plan note Future Appointments Appointment Date:02/15/2024 01:00:00 PM Scheduled Provider: Location:.ONCOLOGY Appointment Type:ONC Injectafer (FT) Appointment Date:02/15/2024 02:00:00 PM Scheduled Provider: Location:.[facility]COL[facility] Appointment Type:ONC Injection (FT) Appointment Date:03/14/2024 10:15:00 AM Scheduled Provider:Ana Kumar Location:.[facility]COLOG[facility] Appointment Type:ONC Office Visit 30 (FT) Appointment Date:03/14/2024 10:45:00 AM Scheduled Provider: Location:.[facility]COLOG[facility] Appointment Type:ONC Injection (FT) Appointment Date:03/25/2024 10:45:00 AM Scheduled Provider:[facility]ula [facility] Open Appointment Date:04/11/2024 02:00:00 [...] (FT) Appointment Date:12/17/2024 08:00:00 AM Scheduled Provider: Location:[facility] Appointment Type: Medicare Wellness Subsequent [...] 03/21/24Iron Percent Saturation 03/21/24Transferrin 03/21/24US Aorta 08/08/24 [facility] Evaluation + Plan note Future Appointments Appointment Date:03/14/2024 10:15:00 AM Scheduled Provider:Ana Kumar Location:.ONCOLOGY Appointment Type:ONC Office Visit 30 (FT) Appointment Date:03/14/2024 10:45:00 AM Scheduled Provider: Location:.ONCOLOGY Appointment Type:ONC Injection (FT) Appointment Date:03/25/2024 10:45:00 AM Scheduled Provider:Ursula Love MD Location:[facility] Appointment Type: Open Appointment Date:04/11/2024 [...] (FT) Appointment Date:12/17/2024 08:00:00 AM Scheduled Provider: Location:[facility] Appointment Type: Medicare Wellness Subsequent [...] 03/11/24Iron Percent Saturation 03/11/24Transferrin 03/11/24US Aorta 08/08/24 [facility] Evaluation + Plan note Future Appointments Appointment Date:03/14/2024 10:15:00 AM Scheduled Provider:Ana Kumar Location:.ONCOLOGY Appointment Type:ONC Office Visit 30 (FT) Appointment Date:03/14/2024 10:45:00 AM Scheduled Provider: Location:.ONCOLOGY Appointment Type:ONC Injection (FT) Appointment Date:03/26/2024 10:45:00 AM Scheduled Provider:Ursula Love MD Location:[facility] Appointment Type:FM Open Appointment Date:04/11/2024 [...] (FT) Appointment Date:12/17/2024 08:00:00 AM Scheduled Provider: Location:[facility] Appointment Type: Medicare Wellness Subsequent Appointment Date:12/19/2024 02:15:00 PM Scheduled Provider: Location:[facility] Appointment Type:ONC Injection (FT) Appointment Date:01/16/2025 02:05:00 PM Scheduled Provider: Location:[facility] Appointment Type:ONC Injection (FT) Appointment Date:02/13/2025 02:15:00 PM Scheduled Provider: Location:[facility] Appointment Type:ONC Injection (FT) Appointment Date:03/13/2025 02:15:00 PM Scheduled Provider: Location:[facility] Appointment Type:ONC Injection (FT) Future Scheduled TestsUS Aorta 08/08/24 [facility] Evaluation + Plan note Future Appointments Appointment Date:03/26/2024 10:45:00 AM Scheduled Provider:Ursula Love MD Location:[facility] Appointment Type:FM Open Appointment Date:04/11/2024 [...] (FT) Appointment Date:12/17/2024 08:00:00 AM Scheduled Provider: Location:[facility] Appointment Type:FM Medicare Wellness Subsequent [...] Percent Saturation 09/07/24Transferrin 06/07/24Transferrin 09/07/24US Aorta 08/08/24 [facility] Evaluation + Plan note Future Appointments [...] (FT) Appointment Date:12/17/2024 08:00:00 AM Scheduled Provider: Location:[facility] Appointment Type: Medicare Wellness Subsequent [...] Percent Saturation 09/07/24Transferrin 06/07/24Transferrin 09/07/24US Aorta 08/08/24 [facility] Evaluation + Plan note Future Appointments [...] (FT) Appointment Date:12/17/2024 08:00:00 AM Scheduled Provider: Location:[facility] Appointment Type: Medicare Wellness Subsequent Appointment Date:12/19/2024 [...] Percent Saturation 09/07/24Transferrin 06/07/24Transferrin 09/07/24US Aorta 08/08/24 [facility] Evaluation + Plan note Future Appointments [...] (FT) Appointment Date:12/17/2024 08:00:00 AM Scheduled Provider: Location:[facility] Appointment Type:FM Medicare Wellness Subsequent Appointment Date:12/19/2024 [...] Percent Saturation 09/07/24Transferrin 06/07/24Transferrin 09/07/24US Aorta 08/08/24 [facility] Evaluation + Plan note Future Appointments [...] (FT) Appointment Date:12/17/2024 08:00:00 AM Scheduled Provider: Location:[facility] Appointment Type:FM Medicare Wellness Subsequent Appointment Date:12/19/2024 02:15:00 PM Scheduled Provider: Location:.ONCOLOGY Appointment Type:ONC Injection (FT) Appointment Date:01/16/2025 02:05:00 PM Scheduled Provider: Location:[facility] Appointment Type:ONC Injection (FT) Appointment Date:02/13/2025 02:15:00 PM Scheduled Provider: Location:.ONCOLOGY Appointment Type:ONC Injection (FT) Appointment Date:03/13/2025 02:15:00 PM Scheduled Provider: Location:[facility] Appointment Type:ONC Injection (FT) Future Scheduled TestsCBC w/ Auto Diff 06/07/24CBC w/ Auto Diff 09/07/24Comprehensive Metabolic Panel 06/07/24Comprehensive Metabolic Panel 09/07/24Ferritin 06/07/24Ferritin 09/07/24Iron Level 06/07/24Iron Level 09/07/24Iron Percent Saturation 06/07/24Iron Percent Saturation 09/07/24Transferrin 06/07/24Transferrin 09/07/24US Aorta 08/08/24 [facility] Evaluation note Diagnosis Persistent atrial fibrillation (HCC)- Primary [facility] Atrial fibrillation, unspecified type (HCC)- Primary documented in this encounter [facility] Discharge instructions No data available for this section [facility] Progress note No data available for this section [facility] Reason for referral (narrative)* Outpatient Procedure (Routine) - Authorized Specialty Diagnoses / Procedures Referred By Contac t [facility] Diagnoses Persistent atrial fibrillation (HCC) Procedures ECG COMPLETE ECG ROUTINE ECG W/LEAST 12 LDS W/I&R Jannet Gonzalez MD [address] [place] [address] [facility] [address] [address] Referral ID Status Reason Start Date Expiration Date Visits Requested Visits Authorized [id number] Authorized Auto-Generat ed Referral 02/03/2022 02/03/2023 1 1 [facility] for referral (narrative)* Outpatient Procedure (Routine) - Authorized Specialty Diagnoses / Procedures Referred By Contac t Referred To [facility] Diagnoses Atrial fibrillation, unspecified type (HCC) Procedures ECG COMPLETE ECG ROUTINE ECG W/LEAST 12 LDS W/I&R Jannet Gonzalez MD [address] [place] [address] [facility] [place] [address] [place] [address] Referral ID Status Reason Start Date Expiration Date Visits Requested Visits Authorized [id number] Authorized Auto-Generat ed Referral 06/27/2024 06/27/2025 1 1 [facility] Summary Purpose Family History No Family [...] History Records FoundNo Family History Records Found Advance Directives No Advanced Directives Records FoundDocuments on File 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 Advance Directive(s) 07/10/2017 5:38 AM [...] section and content) DATE CREATED AUTHOR 10/08/2020 [facility] [place] DATE CREATED AUTHOR AUTHOR'S ORGANIZ ATION 02/05/2022 [facility] DATE CREATED AUTHOR AUTHOR'S ORGANIZ ATION 01/17/2023 [facility] DATE CREATED AUTHOR AUTHOR'S ORGANIZ ATION 03/12/2024 [facility] DATE CREATED AUTHOR AUTHOR'S ORGANIZ ATION 03/13/2024 [facility] DATE CREATED AUTHOR AUTHOR'S ORGANIZ ATION 06/30/2024 [facility] DATE CREATED AUTHOR AUTHOR'S ORGANIZ ATION 07/12/2024 [facility] DATE CREATED AUTHOR AUTHOR'S ORGANIZ ATION 07/15/2024 [facility] Source Comments (unrecognize d section and content) In the event this informatio n is protected by the Federal Confidentiality of Alcohol and Drug Abuse Patient Records regulations: The Federal rules restrict any use of the information to criminally investigate or prosecute any alcohol or drug abuse patient.[facility] the event this information is protected by the Federal Confidentiality of Alcohol and Drug Abuse Patient Records regulations: The Federal rules restrict any use of the information to criminally investigate or prosecute any alcohol or drug abuse patient.[facility] Care Teams (unrecognized sec tion and content) Conical Mixer Relationship Specialty Start Date End Date Mark Browning PCP - General Family Practice 08/11/14 Jannet Gonzalez MD [address] [place] [address] Primary Staff Physician Cardiology 02/03/22 Conical Mixer Relationship Specialty Start Date End Date Mark [...] BE BASED ON THE PRIMARY CLINICAL RECORDS. [employer] [facility]. provides no warranty or guarantee of the accuracy or completeness of information in this document.
--- NOTE | 2024-07-18 08:55 | P.CN_ITS ---
Consult Note: HPI Data of Consult Patient: known to practice within the last 3 years Requesting Physician: Love Snow NP Primary Care Provider: URSULA LOVE Consult Narrative Reason for consult: chronic hip pain Narrative: Donny Doherty a pleasant 64 year old male presents for evaluation of chronic bilateral hip pain. Pt has a hx of mild hip OA. Recently underwent right and left hip injections with Dr Newman with 1 month of improvement per pt. Patient rating pain 0/10 but increasing to 8/10 burning ache increasing with standing wa lking, lying on his side, stairs, bending, activity, and sleeping flat. Patient has a hx of cervical DDD and radiculopathy, recently underwent lumbar xray which shows multilevel facet arthropathy but no significant DDD. patient cannot take NSAIDs as he is on ASA and eliquis. engaged in daily HEP without improvement. utilizing tylenol PM with little to no relief. Patients biggest complaint is inability to sleep due to pain. denies numbness tingling or weakness to BLE. cc:: CC: Love Snow NP Review of Systems ROS Status of ROS 10 or more systems reviewed and unremark able except as noted in history and below Musculoskeletal Reports: back pain and joint pain [facility] Medical History (Updated 07/18/24 @ 08:56 by Love Snow NP) Arthritis ?M19.90 - Unspecified osteoarthritis, unspecified site (ICD-10) Vitamin B12 deficiency (dietary) anemia ?D51.8 - Other vitamin B12 deficiency anemias (ICD-10) Iron deficiency anemia ?D50.9 - Iron deficiency anemia, unspecified (ICD-10) Tear of distal tendon of biceps ?S46.219A - Strain of muscle, fascia and tendon of other parts of biceps, unspecified arm, initial encounter (ICD-10) History of heart attack ?I25.2 - Old myocardial infarction (ICD-10) Hypertension ?I10 - Essential (primary) hypertension (ICD-10) Positive colorectal cancer screening using Cologuard test ?R19.5 - Other fecal abnormalities (ICD-10) Hyperlipidemia ?E78.5 - Hyperlipidemia, unspecified (ICD-10) Atrial fibrillation ?I48.91 - Unspecified atrial fibrillation (ICD-10) Kidney stone ?N20.0 - Calculus of kidney (ICD-10) GERD (gastroesophageal reflux disease) ?K21.9 - Gastro-esophageal reflux disease without esophagitis (ICD-10) External bleeding hemorrhoids ?K64.4 - Residual hemorrhoidal skin tags (ICD-10) Dysuria ?R30.0 - Dysuria (ICD-10) Type 2 diabetes mellitus ?E11.9 - Type 2 diabetes mellitus without complications (ICD-10) CAD (coronary artery disease) ?I25.10 - Atherosclerotic heart disease of [place] coronary artery without angina pectoris (ICD-10) Aortic aneurysm ?I71.9 - Aortic aneurysm of unspecified site, without rupture (ICD-10) Surgical History History of tonsillectomy ?Z90.89 - Acquired absence of other organs (ICD-10) H/O repair of rotator cuff ?Z98.890 - Other specified postprocedural states (ICD-10) H/O cardiac catheterization ?Z98.890 - Other specified postprocedural states (ICD-10) H/O cardiac radiofrequency ablation ?Z98.890 - Other specified postprocedural states (ICD-10) Tear of biceps tendon ?S46.219A - Strain of muscle, fascia and tendon of other parts of biceps, unspecified arm, initial encounter (ICD-10) Family History Other Family history of myocardial infarction Heart failure Social History Within the past year, how often did you have a drink containing alcohol: 4 or more times a week Within the past year, how many standard drinks containing alcohol did you have on a typical day: 1 or 2 Within the past year, how often did you have six or more drinks on one occasion: never Total score: 0 Score interpretation: Questions 2 and 3 are 0. It can be assumed that the patient's drinking is below the recommended limits. However, please confirm the accuracy of the patient's alcohol intake over the last few months. 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 [employer] Known occupational exposures/hazards: No Highest level of school completed/degree received: high school graduate Meds Home Medications and Allergies Home Medications ?Medication ?Instructions ?Recorded ?Confirmed ?Type amlodipine 5 mg tablet 5 mg PO DAILY 09/11/23 04/17/24 History aspirin 81 mg chewable tablet 81 mg PO DAILY 09/11/23 04/17/24 History atorvastatin 80 mg tablet 80 mg PO DAILY 09/11/23 04/17/24 History clonidine 0.1 mg PO BID 09/11/23 04/17/24 History diltiazem HCl 30 mg PO DAILY PRN atrial 09/11/23 04/17/24 History fibrillation isosorbide mononitrate 120 mg 120 mg PO QAM 09/11/23 04/17/24 History tablet,extended release 24 hr lisinopril 20 mg tablet 20 mg PO DAILY 09/11/23 04/17/24 History metformin 500 mg tablet 1,000 mg PO BID 09/11/23 04/17/24 History metoprolol succinate 100 mg 200 mg PO DAILY 09/11/23 04/17/24 History tablet,extended release 24 hr (Toprol XL) omeprazole 20 mg capsule,delayed 20 mg PO DAILY 09/11/23 04/17/24 History release ranolazine 500 mg tablet,extended 500 mg PO BID 09/11/23 04/17/24 History release,12 hr apixaban 5 mg tablet (Eliquis) 5 mg PO BID 04/16/24 04/17/24 History ezetimibe 10 mg tablet 10 mg PO DAILY 04/16/24 04/17/24 History Allergies Allergy/AdvReac Type Severity Reaction Status Date / Time Penicillins AdvReac Mild Rash Verified 04/17/24 10:46 Exam Constitutional Documenting provider has reviewed patient's vital signs: yes Common normals: no apparent distress, oriented x3, healthy appearing, alert and well nourished General appearance: cooperative [facility] Common normals: normocephalic, hearing grossly normal bilaterally and moist oral mucous membranes Head and scalp: normocephalic Eye Common normals: PERRL Pupil: PERRL Neck & C-Spine Common normals: full ROM General: normal visual inspection Chest Common normals: inspection of chest normal Respiratory Common normals: normal respiratory effort, no retractions and no use of accessory muscles Back & Pelvis Lumbar spine/lower back: lumbar ROM normal, pain with ROM, lumbar spinal tenderness and straight leg raise negative bilaterally; no paraspinal muscle tenderness and no paraspinal muscle spasm Sacroiliac joints: SI joint(s) abnormal Other: left and right SIJ positive shelby(patricks), gaenslens, thigh thrust, compression test no radiculopathy on exam, strength 5/5 in BLE, sensation intact BLE mild tenderness to bilateral GTB mild pain with internal and external log roll of right hip negative on left hip Extremity Common normals: normal to inspection and full ROM Right lower extremity: no findings for hip joint Left lower extremity: no findings for hip joint Neuro Common normals: oriented x3, CN's II-XII intact bilaterally, moves all extremities, no focal motor deficits, no sensory deficits noted and deep tendon reflexes 2+ bilaterally Sensorium/orientation: alert Motor exam: strength 5/5 throughout and no movement abnormalities noted Psych Common normals: mental status grossly normal, thought process normal, cooperative, affect normal, speech normal and activity/motor behavior normal Speech: normal speech Thought process: normal thought process Results Imaging Lumbar Xray: Attestation: I have reviewed the pertinent imaging results. Radiologist's impression: BONES: No fracture, spondylolisthesis, or change in alignment during flexion and extension. Slight left convex curvature of lumbar spine. Mild degenerative facet arthropathy L4-L5, L5-S1. Minimal degenerative changes of the sacroiliac joints. No sclerosis along the sacroiliac margins to suggest sacroiliitis. DISC SPACES: No significant disc height narrowing, subluxation, or endplate abnormality. PARASPINOUS: Aneurysmal dilation and marked atherosclerotic disease of abdominal aorta, 4.2 cm in diameter. OTHER: Negative. Additional Findings Additional findings: If on a controlled substance or opioids, I have checked an [place] report on this patient and there are no aberrancies noted in the prescribing history.??If on a controlled substance or opioid a drug screen was completed and reviewed within the last year, and if there has not been a drug screen completed we ordered one today to monitor higher risk, state monitored pain medication use. As part of providing excellent, safe, comprehensive care, the following was completed at our patient's visit: 1. A medication reconciliation and review to ensure accurate knowledge of current/active medications, including asking our patients to inform us about any [id number] medications or herbal remedies/nutritional supplements/alternative remedies. 2. A review to specifically ensure our patients have had annual screening for screening for depression, screening for tobacco use, and screening for unhealthy alcohol use. For concerning screenings had a discussion with the patient, provided patient education, and recommended follow-up with primary care provider when appropriate. If patient noted with a risk of falling, they received education on strength, gait, and balance training to prevent future risk of fal ling. Assessment and Plan Assessment and Plan (1) Lumbar spondylosis: (2) Sacroiliac joint dysfunction: (3) Lumbar stenosis with neurogenic claudication: (4) Myofascial pain: (5) Encounter for medication monitoring: Plan proceed with bilateral SIJ injection for sacroiliac joint dysfunction, to be completed under fluoroscopy. risks vs benefits reviewed continue f/u with orthopedics as planned update lumbar MRI without contrast to assess lumbar spine for stenosis as patient has symptoms consistent with NC stop baclofen, has found no benefit start hydrocodone-acetaminophen 5-325mg daily as needed moderate to severe pain, 3 day trial. risks vs benefits reviewed f/u after SIJ injection
== END 2024-07-18 08:43 | disposition home or self-care (01) ==
LOC: PM 08:42
PROVIDERS: PCP Family Medicine; Visit Provider Nurse Practitioner
DX: M47.816 Spondylosis without myelopathy or radiculopathy, lumbar region (principal); M53.3 Sacrococcygeal disorders, not elsewhere classified; M48.062 Spinal stenosis, lumbar region with neurogenic claudication; M79.18 Myalgia, other site; Z51.81 Encounter for therapeutic drug level monitoring; Z79.899 Other long term (current) drug therapy
CPT/HCPCS: G0463

== ENCOUNTER 2024-07-26 07:31 | Outpatient (OUT) | payer MEDICARE, SELFPAY ==
--- OUTSIDE RECORDS SUMMARY | 2024-07-26 07:34 | XMS_ITS | CCD ---
Author Organization [facility] Care Team Providers Care Dredge Or Barge Shore Hand Name Role Phone Mark Browning Primary Care Provider Jannet Gonzalez MD Unavailable Ursula Love Primary Care Physician URSULA LOVE Admitting Unavailable URSULA LOVE Attending Unavailable URSULA LOVE Primary Care Unavailable URSULA LOVE Consulting Unavailable BAO, DR MOSCOSO Admitting Unavailable BAO, DR MOSCOSO Attending Unavailable URSULA LOVE Primary Care Unavailable [place], DR JANNET Parry Consulting Unavailable BAO, DR MOSCOSO Consulting Unavailable URSULA LOVE Consulting Unavailable Ursula Love Primary Care Physician [phone] Mark Browning DO Primary Care Provider Jannet [...] Unavailable Ana Spencer Admitting Unavailable Juan Antonio, APNCarlo Richard Attending Unavailable Ursula Love Attending Unavailable Shelley Bruce Attending Unavailable Ursula Love ENelly Referring Unavailable Adamowsylwia, Bharath Attending Unavailable Seymourowsylwia, Bharath Admitting Unavailable Ursula Love Attending Unavailable Ursula Love ENelly Admitting Unavailable Ross, Ursula E. Attending Unavailable Ross, Ursula E. Admitting Unavailable Ursula Love E. Attending Unavailable RossUrsula E. Attending Unavailable RossUrsula E. Attending Unavailable RossUrsula E. Attending Unavailable Ross, Ursula E. Attending Unavailable Juan Antonio, APN Karen L Attending Unavailable Ross, Ursula E. Attending Unavailable Ross, Ursula E. Admitting Unavailable Juan Antonio, APN Karen L Attending Unavailable Juan Antonio, APN Karen L Admitting Unavailable Demboske, Ana Rivas Attending Unavailable Ursula Love E. Referring Unavailable Demboske, Ana Rivas Attending Unavailable Demboske, Ana Rivas Attending Unavailable Ursula Love ENelly Admitting Unavailable Ursula Love E. Referring Unavailable NILL, Jose Luis R Attending Unavailable RossUrsula Attending Unavailable Demboske, Ana Rivas Attending Unavailable Demboske, Ana Rivas Attending Unavailable Demboske, Ana Rivas Attending Unavailable Demboske, Ana Rivas Attending Unavailable Demboske, Ana Rivas Admitting Unavailable Demboske, Ana Rivas Attending Unavailable Ursula Love Attending Unavailable Ursula Love Attending Unavailable Ursula Love Attending Unavailable GOPAL, PARISA Attending Unavailable MOUKARBELBLANKA Attending Unavailable Allergies Allergy Classification Reported Allergen(s) Allergy Type Date of Onset Reaction(s) Facility (20 sources) Penicillins; 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: [penicillins] Propensity to adverse reactions to drug 4 Hayder Dobson (disorder) [facility] (1 source) Penicillins Drug allergy (disorder) 4 [facility] (1 source) Penicillins Propensity to adverse reactions to drug 4 [facility] (2 sources) No Known Medication Allergies; 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: [No Known Medication Allergies] Propensity to adverse reactions (disorder) [facility] Repository Medications Current Medications Medication Drug Class(es) [...] # 90 tab(s), Refills(s) 0, Pharmacy: [facility]/pharmacy #[id number] Start Date: 04/01/22 Stop [...] # 90 tab(s), Refills(s) 1, Pharmacy: [facility]/pharmacy #[id number], 179, cm, 03/26/24 10:53:00 EDT, Height/Length Dosing, 86, kg, 03/26/24 10:53:00 EDT, Weight Dosing Start Date: 03/26/24 Status: Ordered Start: 07-06-2023 lisinopril 20 mg Tab See Instructions, TAKE 1 TABLET DAILY, # 90 tab(s), Refills(s) 1, Pharmacy: [facility], 178, cm, 12/18/23 13:19:00 EST, Height/Length Dosing, [...] Daily, # 90 tab(s), Refills(s) 1, Pharmacy: [facility], 178, cm, 12/19/22 9:57:00 EST, Height/Length [...] # 30 tab(s), Refills(s) 0, Pharmacy: [facility]/pharmacy #[id number] Start Date: 04/01/22 Status: Ordered metFORMIN hydrochloride 500 mg oral tablet (20 sources) Biguanide Start: 4 metformin 500 mg Tab See Instructions, TAKE 2 TABLETS TWICE A DAY, # 360 tab(s), Refills(s) 1, Pharmacy: [facility], 179, cm, 03/26/24 10:53:00 EDT, Height/Length Dosing, 86, kg, 03/26/24 10:53:00 EDT, Weight Dosing Start Date: 06/19/24 Status: Ordered Start: 07-06-2023 metformin 500 mg Tab See Instructions, TAKE 2 TABLETS TWICE A DAY, # 360 tab(s), Refills(s) 1, Pharmacy: [facility], 178, cm, 12/18/23 13:19:00 EST, Height/Length Dosing, 89.1, kg, 12/18/23 13:19:00 EST, Weight Dosing Start Date: 12/19/23 Status: Ordered Start: 04-25-2023 take 2 tablets by mo uth twice daily metformin 500 mg Tab 1,000 mg = 2 tab(s), Oral, BID, TAKE TWO TABLETS BY MOUTH TWICE A DAY, # 360 tab(s), Refills(s) 1, Pharmacy: [facility], 178, cm, 12/19/22 9:57:00 EST, Height/Length Dosing, 90.4, kg, 12/19/22 9:57:00 EST, Weight Dosing Start Date: 04/25/23 Status: Ordered Start: 04-01-2022 End: 09-28-2022 take 2 tablets by mouth twice daily metformin 500 mg ER Tab 1,000 mg = 2 tab(s), Oral, BID, X 90 day(s), # 360 tab(s), Refills(s) 1, Pharmacy: [facility] Start Date: 04/01/22 Stop [...] DAILY, # 90 cap(s), Refills(s) 1, Pharmacy: [facility], 179, cm, 03/26/24 10:53:00 EDT, Height/Length Dosing, 86, kg, 03/26/24 10:53:00 EDT, Weight Dosing Start Date: 05/06/24 Status: Ordered Start: 11-20-2023 take 1 capsule by mo [facility] once daily omeprazole 20 mg Cap-DR 20 mg = 1 cap(s), Oral, Daily, # 90 cap(s), Refills(s) 1, Pharmacy: [facility], 178, cm, 08/29/23 14:28:00 EST, Height/Length Dosing, 90.8, kg, 08/29/23 14:28:00 EST, Weight Dosing Start Date: 11/20/23 Status: Ordered Start: 07-03-2023 take 1 capsule by [facility] once daily omeprazole 20 mg Cap-DR 20 mg = 1 cap(s), Oral, Daily, # 90 cap(s), Refills(s) 1, Pharmacy: [facility], 178, cm, 07/03/23 7:24:00 EDT, Height/Length Dosing, 90, kg, 07/03/23 7:24:00 EDT, Weight Dosing Start Date: 07/03/23 Status: Ordered Start: 08-29-2014 End: 09-28-2022 take 1 capsule by mouth once daily omeprazole 20 mg Cap-DR 20 mg = 1 cap(s), Oral, Daily, X 90 day(s), # 90 cap(s), Refills(s) 1, Pharmacy: [facility] Start Date: 04/01/22 Stop Date: 09/28/22 Status: Ordered Comment on above: Take 1 capsule by [facility] once daily. 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 The best treatment is to control blood pressure. I want him to obtain a 24 hour ambulatory blood pressure monitoring. Once I obtain the result we can decide on adjusting his treatment. Also, we need to have him bring his BP machine to check it. Patient made aware via email. I told him I would figure out the 24 hour blood pressure monitor next week and get back to him. Dr. Gore, do you know how we go about ordering this and what it all entails? Thanks. [facility] Orders Onlyon 07-15-2024 Orders Only [id number] Marcelle Deutsch 1960 [facility] Provider Department Center 07/15/2024 ALESHA BERNARDO WENDY Michaels Family History Problem Relation Age of Onset Coronary artery disease Father Atrial fibrillation Father Heart attack Brother Family Status - Relation Status Age at Father Brother [facility] Office Visiton 07-12-2024 Follow-up visit [id number] Marcelle Deutsch 1960 Date Provider Department Center 07/12/2024 367-BLANKA GORE WENDY Michaels Family History Problem Relation Age of Onset Coronary artery disease Father Atrial fibrillation Father Heart attack Brother Family Status - Relation Status Age at Father Brother Level of Service:17770 IN OFFICE/OUTPATIENT ESTABLISHED MOD MDM 30 MIN [facility] Orders Onlyon 07-11-2024 Orders Only [id number] Marcelle Deutsch 1960 Date Provider Department Center 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 Family History Problem Relation Age of Onset Coronary artery disease Father Atrial fibrillation Father Heart attack Brother Family Status - Relation Status Age at Father Brother Normal [facility] 06-28-20 [facility] Case Information Case Priority: None Programs: -- Referral Source: Tool Maintenance Technician Referral Reason: Disease management Case Type: Chronic Care Management Risk Score: -- Case Status: Active (December 28, 2023) Date Assigned: December 19, 2023 Assigned By: Christian Hernandez Date Enrolled: December 28, 2023 Assigned Primary Personnel: Christian Hernandez Assigned Secondary Personnel: -- Case Physician: Ursula Love MD Ongoing AAA (abdominal aortic aneurysm) Aortic aneurysm BMI 28.0-28.9,adult BPH (benign prostatic hyperplasia) CAD in [place] artery Controlled type 2 diabetes mellitus without [...] Assessments 12/28/23 08:18:00 Result Name Value Comment [facility] Program Enrollment Verbally agreed to receive [facility] services CCM Written Consent Written consent in progress CCM Verbal Consent By Self 12/28/23 07:00:00 Result Name Value Comment HIPPA Verified Type of Contact In person at home CM Preferred Spoken Language [place]ese CM Preferred Written Language [place]ese Preferred Communication Mode Verbal Ability to Read/Write Able to read, Able to write Preferred Salutation MrNelly Preferred Method of Contact Cell Cell Phone [phone] Best Time to Visit or Contact 7-10 am Best Day to Visit or Contact No preference Appointment Reminders Patient portal, Other secured messaging Preferred Way to Send [facility] Patient portal Preferred Mailing Address [address] [place] [address], [phone] Learning Style Pref Patient Verbal explanation Learning [...] Shares bed Support System Spouse/Significant other Primary Presser Automatic of Home Medication Self Current DME at Home No Currently Receiving Skilled Services No Skilled Service Need (more content not included)... Normal [facility] 06-11-20 24 [facility] Case Information Case Priority: None Programs: -- Referral Source: Tool Maintenance Technician Referral Reason: Disease management Case Type: Chronic Care Management Risk Score: -- Case Status: Active (December 28, 2023) Date Assigned: December 19, 2023 Assigned By: Christian Hernandez Date Enrolled: December 28, 2023 Assigned Primary Personnel: Christian Hernandez Assigned Secondary Personnel: -- Case Physician: Ursula Love MD Ongoing AAA (abdominal aortic aneurysm) Aortic aneurysm BMI 28.0-28.9,adult BPH (benign prostatic hyperplasia) CAD in [place] artery Controlled type 2 diabetes mellitus without [...] concerns: No., 12/18/2023 Employment/School Employed, Work/School description: [employer]. Highest education level: High school. [...] CCM Program Enrollment Verbally agreed to receive [facility] services CCM Written Consent Written consent in progress CCM Verbal Consent By Self 12/28/23 07:00:00 Result Name Value Comment HIPPA Verified Type of Contact In person at home CM Preferred Spoken Language [place] CM Preferred Written Language [place]ese Preferred Communication Mode Verbal Ability to Read/Write Able to read, Able to write Preferred Salutation Mr. Preferred Method of Contact Cell Cell Phone [phone] Best Time to Visit or Contact 7-10 am Best Day to Visit or Contact No preference Appointment Reminders Patient portal, Other secured messaging Preferred Way to Send [facility] Patient portal Preferred Mailing Address [address] [place] [address] Learning Style Pref Patient Verbal explanation Learning [...] Shares bed Support System Spouse/Significant other Primary Presser Automatic of Home Medication Self Current DME at Home No Currently Receiving Skilled Services No Skilled Service Needs Anticipated No Barriers to Care None Home Barriers None (more content not included)... Normal [facility] 36on 06-04-2024 36 Regarding carotid duplex performed on 05/29/2024: MERVAT Kendrick MA Let them know less than 49% stenosis of both carotids- really very good- Continue all meds and we will see them next time Probably a repeat carotid in 1-3 years- unless symptoms Patient made aware via email. [facility] 04-25-20 [facility] Case Information Case Priority: None Programs: -- Referral Source: Tool Maintenance Technician Referral Reason: Disease management Case Type: Chronic Care Management Risk Score: -- Case Status: Active (December 28, 2023) Date Assigned: December 19, 2023 Assigned By: Christian Hernandez Date Enrolled: December 28, 2023 Assigned Primary Personnel: Christian Hernandez Assigned Secondary Personnel: -- Case Physician: Ursula Love MD Ongoing AAA (abdominal aortic aneurysm) Aortic aneurysm BMI 28.0-28.9,adult BPH (benign prostatic hyperplasia) CAD in [place] artery Controlled type 2 diabetes mellitus without [...] Assessments 12/28/23 08:18:00 Result Name Value Comment [facility] Program Enrollment Verbally agreed to receive [facility] services CCM Written Consent Written consent in progress CCM Verbal Consent By Self 12/28/23 07:00:00 Result Name Value Comment HIPPA Verified Type of Contact In person at home CM Preferred Spoken Language [place]ese CM Preferred Written Language [place]ese Preferred Communication Mode Verbal Ability to Read/Write Able to read, Able to write Preferred Salutation Mr. Preferred Method of Contact Cell Cell Phone [phone] Best Time to Visit or Contact 7-10 am Best Day to Visit or Contact No preference Appointment Reminders Patient portal, Other secured messaging Preferred Way to Send [facility] Patient portal Preferred Mailing Address [address] [place] [address], [phone] Learning Style Pref Patient Verbal explanation Learning [...] Shares bed Support System Spouse/Significant other Primary Presser Automatic of Home Medication Self Current DME at Home No Currently Receiving Skilled Services No Skilled Service Needs Anticipated No Barriers to Care None Home Barriers None Employment Status Retired Financial Issues None Sources of Income Socia (more content not included)... Normal [facility] Ambulatory Visit Summaryon 0 03-26-2024 Ambulatory Visit [...] Oncology Monday 8:00 AM EST With: Where: [facility] [place] Normal [facility] Family Medicine Office/Clini c Noteon 03-26-2024 Family [...] # 100 cap(s), Refills(s) 0, Pharmacy: [facility]/pharmacy #[id number], 178, cm, 12/18/23 13:19:00 EST, Height/Length Dosing, 89.1, kg, 12/18/23 13:19:00 EST, Weight Dosing lisinopril, See Instructions, TAKE 1 TABLET DAILY, # 90 tab(s), Refills(s) 1, Pharmacy: [facility]/pharmacy #[id number], 179, cm, 03/26/24 10:53:00 EDT, Height/Length Dosing, 86, kg, 03/26/24 10:53:00 EDT, Weight Dosing Follow-up No qualifying data available Problem List/Past Medical History Ongoing AAA (abdominal aortic aneurysm) Aortic aneurysm BMI 28.0-28.9,adult BPH (benign prostatic hyperplasia) CAD in [place] artery Controlled type 2 diabetes mellitus without [...] Others hurt by (more content not included)... [facility] Comment on above: Result Comment: Elec tronically Signed By: Km NIELSON, Ursula Porter\.br\Date and Time Signed: 03/26/24 16:51 EDT Physician Referralon 024 Physician Referral [id number] #[id number] [facility] Population Healthon 03-22-20 24 Population [facility] Case Information Case Priority: None Programs: -- Referral Source: Embroiderer Hand Referral Reason: Disease management Case Type: Chronic Care Management Risk Score: -- Case Status: Active (December 28, 2023) Date Assigned: December 19, 2023 Assigned By: Christian Hernandez Date Enrolled: December 28, 2023 Assigned Primary Personnel: Christian Hernandez Assigned Secondary Personnel: -- Case Physician: Ursula Love MD Problems Ongoing AAA (abdominal aortic aneurysm) Aortic aneurysm BMI 28.0-28.9,adult BPH (benign prostatic hyperplasia) CAD in [place] artery Controlled type 2 diabetes mellitus without [...] Assessments 12/28/23 08:18:00 Result Name Value Comment [facility] Program Enrollment Verbally agreed to receive [facility] services CCM Written Consent Written consent in progress [facility] Verbal Consent By Self 12/28/23 07:00:00 Result Name Value Comment HIPPA Verified Type of Contact In person at home CM Preferred Spoken Language [place]ese CM Preferred Written Language [place]ese Preferred Communication Mode Verbal Ability to Read/Write Able to read, Able to write Preferred Salutation Mr. Preferred Method of Contact Cell Cell Phone [phone] Best Time to Visit or Contact 7-10 am Best Day to Visit or Contact No preference Appointment Reminders Patient portal, Other secured messaging Preferred Way to Send PHI Patient portal Preferred Mailing Address [address] [place] [address], [phone] Learning Style Pref Patient Verbal explanation Learning [...] Shares bed Support System Spouse/Significant other Primary Presser Automatic of Home Medication Self Current DME at Home No Currently Receiving Skilled Services No Skilled Service Needs Anticipated No Barriers to Care None Home Barriers None Employment Status Retired Financial Issues None Sources of Income Social Security Pat (more content not included)... Normal [facility] Consent for Treatmenton 02-15 Consent for Treatment [id number] #[id number] Normal [facility] Oncology Progress Noteon Oncology Progress Note Chief Complaint b12 Deficiency; no concerns blood pressure at home 111/62 Diagnoses 1. Iron deficiency anemia (D50.9: Iron deficiency anemia, unspecified) 2. Intestinal malabsorption (K90.9: Intestinal malabsorption, unspecified) 3. B12 deficiency (E53.8: Deficiency of other specified B group vitamins) Oncological History/ROS/PE/Asses sment and Plan Mr. Deustch is a 63 year old male former [...] a colonoscopy done in Sep 2023 at [facility] after positive Cologuard test. This showed a [...] Contact Information Tj NATHAN-, Ana Rivas, ONC [facility] [address] [place] [phone] Additional Instructions: cbc, cmp, iron studies in 3mo and 6mo follow-up in 6mo with [facility] Medications amLODIPine 5 mg Tab, Oral, Daily [...] (DoT), 100 (more content not included)... Normal [facility] CBC w/ Auto Diffon 4 Acanthocytes LM Ql (Bld) PRESENT Invalid Interpretation Code [facility] Comment on above: Performed By: #### 2 [id number] #### [facility] [address] [place] [address] Anisocytosis Ql (Bld) PRESENT Invalid Interpretation Code [facility] Comment on above: Performed By: #### 2 [id number] #### [facility] [address] [place] [address] Basophils/100 WBC (Bld) 0.8 % Normal 0.0-2.0 [facility] Comment on above: Performed By: #### 2 [id number] #### [facility] [address] [place] [address] Basophils/Leukocytes Auto (Bld) [Pure # fraction] 0.0 E9/L Normal 0.0-0.2 [facility] Comment on above: Performed By: #### 2 [id number] #### [facility] [address] [place] [address] Eosinophils (Bld) [#/Vol] 0.2 E9/L Normal 0.0-0.5 [facility] Comment on above: Performed By: #### 2 [id number] #### [facility] [address] [place] [address] Eosinophils/100 WBC (Bld) 3.7 % Normal 0.0-8.0 [facility] Comment on above: Performed By: #### 2 [id number] #### [facility] [address] [place] [address] Erythrocyte distribution width (RBC) [Ratio] 27.1 % High 10.9-14.2 [facility] Comment on above: Performed By: #### 2 [id number] #### [facility] [address] [place] [address] Hematocrit (Bld) [Volume fraction] 40.0 % Normal 37.7-49.0 [facility] Comment on above: Performed By: #### 2 [id number] #### [facility] [address] [place] [address] Hemoglobin (Bld) [Mass/Vol] 13.4 g/dL Low 13.5-17.5 [facility] Comment on above: Performed By: #### 2 [id number] #### [facility] [address] [place] [address] Hypochromia Auto Ql (Bld) PRESENT Invalid Interpretation Code [facility] Comment on above: Performed By: #### 2 [id number] #### [facility] [address] [place] [address] Lymphocytes (Bld) [#/Vol] 1.6 E9/L Normal 1.0-4.0 [facility] Comment on above: Performed By: #### 2 [id number] #### [facility] [address] [place] [address] Lymphocytes/100 WBC (Bld) 32.5 % Normal 14.0-50.0 [facility] Comment on above: Performed By: #### 2 [id number] #### [facility] [address] [place] [address] MCH (RBC) [Entitic mass] 27.3 pg Normal 27.0-34.0 [facility] Comment on above: Performed By: #### 2 [id number] #### [facility] [address] [place] [address] MCHC (RBC) [Mass/Vol] 33.6 g/dL Normal 31.4-36.0 [facility] Comment on above: Performed By: #### 2 [id number] #### [facility] [address] [place] [address] MCV (RBC) [Entitic vol] 81.4 fL Normal 80.0-100.0 [facility] Comment on above: Performed By: #### 2 [id number] #### [facility] [address] [place] [address] Monocytes (Bld) [#/Vol] 0.4 E9/L Normal 0.2-1.0 [facility] Comment on above: Performed By: #### 2 [id number] #### [facility] [address] [place] [address] Neutrophils (Bld) [#/Vol] 2.7 E9/L Normal 2.0-7.5 [facility] Comment on above: Performed By: #### 2 [id number] #### [facility] [address] [place] [address] Neutrophils/100 WBC (Bld) 55.1 % Normal 36.0-75.0 [facility] Comment on above: Performed By: #### 2 [id number] #### [facility] [address] [place] [address] Ovalocytes LM Ql (Bld) PRESENT Invalid Interpretation Code [facility] Comment on above: Performed By: #### 2 [id number] #### [facility] [address] [place] [address] Platelet mean volume (Bld) [Entitic vol] 9.9 fL Normal 6.4-10.8 [facility] [facility] Comment on above: Performed By: #### 2 [id number] #### [facility] [address] [place] [address] Platelets (Bld) [#/Vol] 116.0 E9/L Low 150.0-500.0 [facility] Comment on above: Performed By: #### 2 713860 #### [facility] [address] [place] [address] RBC (Bld) [#/Vol] 4.9 E12/L Normal 4.3-5.9 [facility] Comment on above: Performed By: #### 2 180443 #### [facility] [address] [place] [address] RBC size Nom (Bld) SEE MORPHOLOGY Invalid Interpretation Code [facility] Comment on above: Performed By: #### 2 377005 #### [facility] [address] [place] [address] WBC corrected for nucl RBC Auto (Bld) [#/Vol] 5.0 E9/L Normal 4.0-11.0 [facility] Comment on above: Performed By: #### 2 685875 #### [facility] [address] [place] [address] CHEMISTRYOrdered By: SYSTEM SYSTEM on 03-12-2024 Albumin [...] 03-12-2024 Albumin [Mass/Vol] 4.3 g/dL Normal 3.3-5.0 [facility] Comment on above: Performed By: #### 2 346724 #### [facility] [address] [place] [address] Albumin/Globulin (S) [Mass conc ratio] 2.3 High 1.1-2.2 [facility] Comment on above: Performed By: #### 2 771007 #### [facility] [address] [place] [address] ALP [Catalytic activity/Vol] 54 Int._Unit/L Normal 21-98 [facility] Comment on above: Performed By: #### 2 618964 #### [facility] [address] [place] [address] ALT No additional P-5'-P [Catalytic activity/Vol] 47 Int._Unit/L High 6-46 [facility] Comment on above: Performed By: #### 2 553427 #### [facility] [address] [place] [address] Anion gap [Moles/Vol] 12 mmol/L Normal 6-16 [facility] Comment on above: Performed By: #### 2 793850 #### [facility] [address] [place] [address] AST [Catalytic activity/Vol] 30 Int._Unit/L Normal 5-43 [facility] Comment on above: Performed By: #### 2 596974 #### [facility] [address] [place] [address] Bilirubin [Mass/Vol] 1.8 mg/dL High 0.0-1.1 [facility] Comment on above: Performed By: #### 2 977913 #### [facility] [address] [place] [address] Calcium [Mass/Vol] 9.1 mg/dL Normal 8.9-11.1 [facility] Comment on above: Performed By: #### 2 227543 #### [facility] [address] [place] [address] Chloride [Moles/Vol] 102 mmol/L Normal 101-111 [facility] Comment on above: Performed By: #### 2 145921 #### [facility] [address] [place] [address] CO2 [Moles/Vol] 26 mmol/L Normal 21-31 [facility] Comment on above: Performed By: #### 2 374794 #### [facility] [address] [place] [address] Creatinine [Mass/Vol] 0.8 mg/dL Normal 0.5-1.3 [facility] Comment on above: Performed By: #### 2 044528 #### [facility] [address] [place] [address] Globulin (S) [Mass/Vol] 1.9 g/dL Normal 1.4-4.0 [facility] Comment on above: Performed By: #### 2 409402 #### [facility] [address] [place] [address] Glucose [Mass/Vol] 153 mg/dL Normal 55-199 [facility] Comment on above: Performed By: #### 2 708601 #### [facility] [address] [place] [address] Potassium [Moles/Vol] 4.7 mmol/L Normal 3.5-5.3 [facility] Comment on above: Performed By: #### 2 418707 #### [facility] [address] [place] [address] Protein [Mass/Vol] 6.2 g/dL Normal 6.0-7.8 [facility] Comment on above: Performed By: #### 2 436875 #### [facility] [address] [place] [address] Sodium [Moles/Vol] 135 mmol/L Normal 135-145 [facility] Comment on above: Performed By: #### 2 213473 #### [facility] [address] [place] [address] Urea nitrogen [Mass/Vol] 9 mg/dL Normal 5-21 [facility] Comment on above: Performed By: #### 2 171953 #### [facility] [address] [place] [address] Urea nitrogen/Creatinine [Mass ratio] 11 No Units Normal 10-20 [facility] Comment on above: Performed By: #### 2 550210 #### [facility] [address] [place] [address] Consent for Treatmenton 02-14 Consent for Treatment [id number] #1.00TIFF Normal [facility] Ferritinon 03-12-2024 Ferritin [Mass/Vol] 179 ng/mL Normal 24-336 [facility] Comment on above: Performed By: #### 2 527946 #### [facility] [address] [place] [address] HEMATOLOGYOrdered By: SYSTEM SYSTEM on 03-12-2024 Acanthocytes [...] 4.0 - 11.0 E9/L Remisol Heme Ironon 05-28-2024 Iron [Mass/Vol] 117 microgram/dL Normal 35-153 [facility] Comment on above: Performed By: #### 2 963998 #### [facility] [address] [place] [address] Iron Saturationon 03-12-2024 Iron binding capacity [Mass/Vol] 326 microgram/dL Normal 250-400 [facility] Comment on above: Performed By: #### 2 972448 #### [facility] [address] [place] [address] Iron saturation [Mass fraction] 36 % Normal 20-50 [facility] Comment on above: Performed By: #### 2 926333 #### [facility] [address] [place] [address] Transferrinon 03-12-2024 Transferrin [Mass/Vol] 233 mg/dL Normal 200-370 [facility] Comment on above: Performed By: #### 2 678510 #### [facility] [address] [place] [address] eGFRon 03-12-2024 eGFR 98 mL/min/1.73 m2 Normal >=59 [facility] Comment on above: Order Comment: Order added by Discern Expert. Performed By: #### 1 [id number] #### [facility] [address] [place] [address] Consent for Treatmenton Consent for Treatment [id number] #1.00TIFF Normal [facility] Consent for Treatmenton 01-15 Consent for Treatment [id number] #1.00TIFF Normal [facility] Consent for Treatmenton 01-14 Consent for Treatment [id number] #1.00TIFF Normal [facility] Consenton 01-31-2024 Consent [id number]#1.00TIFF Normal [facility] Outside Diabetes Eye Examon 01-31-2024 Outside Diabetes Eye Exam [id number] #1.00TIFF [facility] Population Healthon 01-26-20 Population Health Case Information Case Priority: None Programs: -- Referral Source: Embroiderer Hand Referral Reason: Disease management Case Type: Chronic Care Management Risk Score: -- Case Status: Active (December 28, 2023) Date Assigned: December 19, 2023 Assigned By: Christian Hernandez Date Enrolled: December 28, 2023 Assigned Primary Personnel: Christian Hernandez Assigned Secondary Personnel: -- Case Physician: Km NIELSON, Ursula Leos Ongoing AAA (abdominal aortic aneurysm) Aortic aneurysm BMI 28.0-28.9,adult BPH (benign prostatic hyperplasia) CAD in [place] artery Controlled type 2 diabetes mellitus without [...] Assessments 12/28/23 08:18:00 Result Name Value Comment [facility] Program Enrollment Verbally agreed to receive [facility] services CCM Written Consent Written consent in progress CCM Verbal Consent By Self 12/28/23 07:00:00 Result Name Value Comment HIPPA Verified Type of Contact In person at home CM Preferred Spoken Language [place] CM Preferred Written Language [place] Preferred Communication Mode Verbal Ability to Read/Write Able to read, Able to write Preferred Salutation Mr. Preferred Method of Contact Cell Cell Phone [phone] Best Time to Visit or Contact 7-10 am Best Day to Visit or Contact No preference Appointment Reminders Patient portal, Other secured messaging Preferred Way to Send PHI Patient portal Preferred Mailing Address [address] [place] [address], [address] Learning Style Pref Patient Verbal explanation Learning [...] Shares bed Support System Spouse/Significant other Primary Presser Automatic of Home Medication Self Current DME at Home No Currently Receiving Skilled Services No Skilled Service Needs Anticipated No Barriers to Care None Home Barriers None Employment Status Retired Financial Issues None Sources of Income Social Security Pat (more content not included)... Normal [facility] Consent for Treatmenton 01-14 Consent for Treatment [id number] #1.00TIFF [facility] [...] his nasa (more content not included)... Normal [facility] Free K+L Lt Chains,Qn,Son Immunoglobulin light chains.kappa.free (S) [Mass/Vol] 19.0 mg/L Invalid Interpretation Code 3.3-19.4 [facility] Comment on above: Performed By: #### 2 [id number], 4497278, 7550172, 2848825, 8062607, 1359007, 2028438, 3704424, 90393196 ####[facility] [address] [place] [address] Immunoglobulin light chains.kappa.free/Imm unoglobulin light chains.lambda.free (S) [Mass ratio] 1.62 Invalid Interpretation Code 0.26-1.65 [facility] Comment on above: Result Comment: [facility]med at: [facility] [address], [place] [id number] PhD Nicole Fang Performed By: #### 2 97585550, 1512548, 7678457, 9130872, 1559203, 7697557, 1532061, 9806908, 97760114 ####[facility] [address] [place] [address] Immunoglobulin light chains.lambda.free [Mass/Vol] 11.7 mg/L Invalid Interpretation Code 5.7-26.3 [facility] Comment on above: Performed By: #### 2 56300022, 8846676, 1269618, 2977518, 9586163, 2637770, 1760229, 3651522, 69044468 ####[facility] [address] [place] [address] Immunofixation Serumon 01-16 IgA [Mass/Vol] 87 mg/dL Invalid Interpretation Code 61-437 [facility] Comment on above: Performed By: #### 2 89787301, 4781987, 7296734, 8350444, 5361908, 3568942, 2970240, 8183888, 49382262 ####[facility] [address] [place] [address] IgG [Mass/Vol] 406 mg/dL Low 603-1613 [facility] Comment on above: Performed By: #### 2 36509373, 3456429, 6805721, 6148737, 0600225, 1081169, 8940219, 0682271, 18722658 ####[facility] [address] [place] [address] IgM [Mass/Vol] 136 mg/dL Invalid Interpretation Code 20-172 [facility] Comment on above: Result Comment: Perf ormed at: [facility] [address], [place] [id number] PhD Nicole Fang Performed By: #### 2 13663104, 8559231, 0370774, 9825812, 6858163, 6562451, 5128858, 0231558, 00596571 ####[facility] [address] [place] [address] Protein Fractions [Interp] Comment Invalid Interpretation Code [facility] Comment on above: Result Comment: No m onoclonality detected. Performed By: #### 2 30964622, 3031109, 6590058, 5079716, 5987842, 8733186, 9815677, 7449962, 08726135 ####[address] [place] [address] SPEon 01-17-2024 Albumin [Mass/Vol] 3.6 g/dL Invalid Interpretation Code 2.9-4.4 [facility] Comment on above: Performed By: #### 2 81397659, 7441224, 4458904, 3139863, 4307210, 3881679, 3329495, 0579938, 49555601 ####[address] [place] [address] Albumin/Globulin [Mass ratio] 1.8 {ratio} High 0.7-1.7 [facility] Comment on above: Performed By: #### 2 53591885, 9685434, 4406613, 3448326, 8598161, 5327451, 6014655, 3139621, 96522922 ####[address] [place] [address] Alpha 1 globulin Elph [Mass/Vol] 0.2 g/dL Invalid Interpretation Code 0.0-0.4 [facility] Comment on above: Performed By: #### 2 46342505, 6913845, 7567588, 5283678, 7530209, 4402708, 4897065, 8576577, 87618863 ####[address] [place] [address] Alpha 2 globulin Elph [Mass/Vol] 0.6 g/dL Invalid Interpretation Code 0.4-1.0 [facility] Comment on above: Performed By: #### 2 38986135, 0533081, 0192329, 6039520, 4299943, 6649529, 1974598, 7659585, 77203883 ####[facility] [address] [place] [address] Beta globulin Elph [Mass/Vol] 0.8 g/dL Invalid Interpretation Code 0.7-1.3 [facility] Comment on above: Performed By: #### 2 06925738, 2166977, 2874466, 3929204, 6122099, 7029162, 8935430, 7158943, 39078036 ####[facility] [address] [place] [address] Gamma globulin Elph [Mass/Vol] 0.4 g/dL Invalid Interpretation Code 0.4-1.8 [facility] Comment on above: Performed By: #### 2 60447089, 0770266, 6118974, 6976657, 8234781, 3171113, 9267437, 9539131, 05670155 ####[address] [place] [address] Globulin (S) [Mass/Vol] 2.0 g/dL Low 2.2-3.9 [facility] Comment on above: Performed By: #### 2 56986566, 3111511, 7501529, 1676502, 3135267, 5935895, 2588344, 6547837, 54610194 ####[facility] [address] [place] [address] Laboratory comment Harman (Report) Comment Invalid Interpretation Code [facility] Comment on above: Result Comment: Prot ein electrophoresis scan will follow via computer, mail, or marketing/sales person delivery. Performed By: #### 2 65200897, 4712574, 5546168, 8657804, 1647583, 8923082, 5310572, 0809212, 47536611 ####[address] [place] [address] Protein [Mass/Vol] 5.6 g/dL Low 6.0-8.5 [facility] Comment on above: Performed By: #### 2 79586930, 1990951, 3714273, 5948042, 0307154, 3770804, 4121692, 8394892, 97640496 ####[facility] [address] [place] [address] Protein Fractions [Interp] Comment: Invalid Interpretation Code [facility] Comment on above: Result Comment: SPE shows decreased total protein. Performed at: [facility] [address] [place] [address] [id number] PhD Nicole Fang Performed By: #### 2 15188811, 9934769, 5109965, 9746951, 3157656, 3438548, 3176424, 4633131, 47144333 ####[facility] [address] [place] [address] Protein.monoclonal Elph [Mass/Vol] Not Observed Invalid Interpretation Code Not Observed [facility] Comment on above: Performed By: #### 2 06870521, 4402272, 7224821, 4241034, 6807675, 2276800, 3892156, 1551582, 27980615 ####[facility] [address] [place] [address] CHEMISTRYOrdered By: SYSTEM SYSTEM on 01-16-2024 Cobalamin [...] for Treatmenton Consent for Treatment [id number] #1.00TIFF Normal [facility] Ferritinon 01-16-2024 Ferritin [Mass/Vol] 8 ng/mL Low 24-336 [facility] Comment on above: Performed By: #### 2 96869206, 9334439, 1093283, 4670265, 9274944, 0962807, 2157532, 0657842, 82817468 ####[facility] [address] [place] [address] Folateon 01-16-2024 Folate [Mass/Vol] 13.0 ng/mL Normal >=6.7 [facility] Comment on above: Performed By: #### 2 91583495, 5896401, 6260026, 9020149, 5302853, 6720480, 7614612, 2510763, 40286266 ####[facility] [address] [place] [address] Ironon 01-16-2024 Iron [Mass/Vol] 36 microgram/dL Normal 35-153 [facility] Comment on above: Performed By: #### 2 87537118, 9040775, 9848674, 2074500, 2575810, 4203786, 2269706, 6063940, 97759741 #### [facility] [address] [place] [address] Iron Saturationon 01-16-2024 Iron binding capacity [Mass/Vol] 473 microgram/dL High 250-400 [facility] Comment on above: Performed By: #### 2 01620751, 4052261, 5700590, 0191826, 2919030, 1083207, 5609112, 9814323, 68239468 #### [facility] [address] [place] [address] Iron saturation [Mass fraction] 8 % Low 20-50 [facility] Comment on above: Performed By: #### 2 93858010, 7452795, 8378456, 3133257, 8518896, 9766879, 5370904, 8923021, 63788864 #### [facility] [address] [place] [address] Transferrinon 01-16-2024 Transferrin [Mass/Vol] 338 mg/dL Normal 200-370 [facility] Comment on above: Performed By: #### 2 94747916, 0489280, 1148895, 6021945, 7107075, 1686493, 8078661, 2957898, 29194584 #### [facility] [address] [place] [address] Vit B12on 01-16-2024 Cobalamin (Vitamin B12) [Mass/Vol] 213 pg/mL Normal 50-1500 [facility] Comment on above: Performed By: #### 2 03820407, 6095801, 9259666, 3260547, 2981816, 0348386, 7709173, 4356952, 15275784 ####[facility] [address] [place] [address] 36on 01-10-2024 36 Message sent from patient to my email: Kg Mesa hope all is well, I forgot to ask if I???m 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 Some things I???ve read are telling me not to?? Marilyn, are you able to advise on this? Thanks. Normal [facility] Physician Referralon 024 Physician Referral [id number] #1.00TIFF Normal [facility] Office Visiton 12-29-2023 Follow-up visit [id number] Marcelle Deutsch 1960 M Date Provider Department Center 12/29/2023 PARISA MUNGUIA [facility] Family History Problem Relation Age of Onset Coronary artery disease Father Atrial fibrillation Father Heart attack Brother Family Status - Relation Status Age at Father Brother Level of Service:83385 IN OFFICE/OUTPATIENT ESTABLISHED MOD MDM 30 MIN Normal [facility] ED Pat Eduon 12-28-2023 ED Pat Edu Cardiovascular Coronary Artery Disease, Male Coronary artery disease (CAD) is a condition in which the arteries that lead to the heart (coronary arteries) become narrow or blocked. The narrowing or blockage can lead to decreased blood flow to the heart. Prolonged reduced blood flow can cause a heart attack (myocardial infarction, or AK). This condition may also be called coronary [...] these instructions at home: Medicines ? Take owfh-uxv-kytpddg and prescription medicines only as told by [...] use any (more content not included)... Normal [facility] 12-28-19 24 Population [facility] Case Information Case Priority: None Programs: -- Referral Source: Embroiderer Hand Referral Reason: Disease management Case Type: Chronic Care Management Risk Score: -- Case Status: Active (December 28, 2023) Date Assigned: December 19, 2023 Assigned By: Christian Hernandez Date Enrolled: December 28, 2023 Assigned Primary Personnel: Christian Hernandez Assigned Secondary Personnel: -- Case Physician: -- Problems Ongoing AAA (abdominal aortic aneurysm) Aortic aneurysm BMI 28.0-28.9,adult BPH (benign prostatic hyperplasia) CAD in [place] artery Controlled type 2 diabetes mellitus without [...] CCM Program Enrollment Verbally agreed to receive [facility] services CCM Written Consent Written consent in progress CCM Verbal Consent By Self 12/28/23 07:00:00 Result Name Value Comment HIPPA Verified Type of Contact In person at home CM Preferred Spoken Language [place] CM Preferred Written Language [place] Preferred Communication Mode Verbal Ability to Read/Write Able to read, Able to write Preferred Salutation Preferred Method of Contact Cell Cell Phone [phone] Best Time to Visit or Contact 7-10 am Best Day to Visit or Contact No preference Appointment Reminders Patient portal, Other secured messaging Preferred Way to Send PHI Patient portal Preferred Mailing Address [address] [place] [address] Learning Style Pref Patient Verbal explanation Learning [...] Shares bed Support System Spouse/Significant other Primary Presser Automatic of Home Medication Self Current DME at Home No Currently Receiving Skilled Services No Skilled Service Needs Anticipated No Barriers to Care None Home Barriers None Employment Status Retired Financial Issues None Sources of Income Social Security Patient Account Ser (more content not included)... Normal [facility] Population Health Problems Ongoing AAA (abdominal aortic aneurysm) Aortic aneurysm BMI 28.0-28.9,adult BPH (benign prostatic hyperplasia) CAD in [place] artery Controlled type 2 diabetes mellitus without [...] - Comments: - - 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 Frequency Status Data Security Consultant Review educational material - - Not [...] - Comments: - - 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 Frequency Status Data Security Consultant Review educational material - - Not [...] - Comments: - - 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 Frequency Status Data Security Consultant Review educational material - - Not [...] - Comments: - - 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 Frequency Status Data Security Consultant Review educational material - - Not [...] - - Not done - - Selene [facility] CT Chest, Low Dose Screening [...] Bourne MD Transcribed by: LUDWIN Technologist: MEKHI Normal [facility] Consent for Treatmenton 12-14 Consent for Treatment [id number] #1.00TIFF [facility] Family Medicine Office/Clini c Noteon 12-22-2023 [...] of clutter to prevent tripping and/or falling. [place] Advance Directives reviewed, patient has at home, [...] PCP visit. Will have labs completed with [facility]. Colonoscopy up to date, due for repeat [...] with CDC recommendation that everyone born from [birth year]25 get tested for Hepatitis C. This is [...] Pack Yea (more content not included)... Normal [facility] Comment on above: Result Comment: Elec tronically Signed By: Ursula Love MD\.br\Date and Time Signed: 12/22/23 11:50 EST\.br\Electronically Co-Signed By: Christian Hernandez\.br\Date and Time Co-Signed: 12/18/23 15:00 EST .Interpretation:on HCV Ab IA Ql Comment Invalid Interpretation Code [facility] Comment on above: Result Comment: Not infected with HCV unless early or acute infection is suspected (which may be delayed in an immunocompromised individual), or other evidence exists to indicate HCV infection. Performed at: [facility] [address], [place] [id number] PhD Nicole Fang Performed By: #### 2 069869, [id number], 4998557, 7099761, 5467421198, 018969174, 02320784 ####[facility] [address] [place] [address] HCV Antibody RFX to Quant PC Kavin 12-20-2023 HCV IgG IA Ql Non-Reactive Invalid Interpretation Code Non Reactive [facility] Comment on above: Result Comment: Perf ormed at: [facility] [address], [place] [id number] PhD Nicole Fang Performed By: #### 2 795053, [id number], 7572078, 1219550, 4054453724, 987109168, 07505505 ####[facility] [address] [place] [address] Screenson 12-19-2023 Screens [id number] #1.00TIFF Normal [facility] [...] 28.0-28.9,adult BPH (benign prostatic hyperplasia) CAD in [place] tribe artery Controlled type 2 diabetes mellitus without [...] for choosing us for your care. Normal [facility] CBC w/ Auto Diffon 4 Anisocytosis Ql (Bld) PRESENT Invalid Interpretation Code [facility] Comment on above: Performed By: #### 2 207783, [id number], 4848746, 5459525, 9716768456, 648968790, 39223619 ####[facility] [address] [place] [address] Basophils/100 WBC (Bld) 0.6 % Normal 0.0-2.0 [facility] Comment on above: Performed By: #### 2 537512, 9735576538, 1340094, 6207351, 8870972808, 543963231, 55337877 ####[facility] [address] [place] [address] Basophils/Leukocytes Auto (Bld) [Pure # fraction] 0.0 E9/L Normal 0.0-0.2 [facility] Comment on above: Performed By: #### 2 303175, 5156747272, 7713445, 7653626, 2069714693, 693143325, 87020265 ####[address] [address] Eosinophils (Bld) [#/Vol] 0.1 E9/L Normal 0.0-0.5 [facility] Comment on above: Performed By: #### 2 935125, 0162102375, 5706183, 9567927, 6812380363, 941680277, 19724063 ####[address] [address] Eosinophils/100 WBC (Bld) 2.7 % Normal 0.0-8.0 [facility] Comment on above: Performed By: #### 2 619088, 3077961231, 3518145, 1111913, 0332670286, 497900746, 53770825 ####[address] [address] Erythrocyte distribution width (RBC) [Ratio] 17.2 % High 10.9-14.2 [facility] Comment on above: Performed By: #### 2 527813, 8294235780, 3237531, 2825732, 1872447946, 479626370, 54566460 ####[address] [address] Hematocrit (Bld) [Volume fraction] 34.4 % Low 37.7-49.0 [facility] Comment on above: Performed By: #### 2 151570, 4248153792, 5699655, 8903991, 7262119436, 184994233, 73230351 ####[address] [address] Hemoglobin (Bld) [Mass/Vol] 10.9 g/dL Low 13.5-17.5 [facility] Comment on above: Performed By: #### 2 294745, 8238426442, 2260793, 6752340, 1189655149, 451652532, 42379189 ####[address] [place] [address] Hypochromia Auto Ql (Bld) PRESENT Invalid Interpretation Code [facility] Comment on above: Performed By: #### 2 872426, 5407480065, 3398955, 2488864, 8295206501, 473467220, 66494376 ####[address] [address] Lymphocytes (Bld) [#/Vol] 1.3 E9/L Normal 1.0-4.0 [facility] Comment on above: Performed By: #### 2 010607, 7220466998, 3055682, 8731707, 6253812490, 181479302, 29715730 ####[address] [address] Lymphocytes/100 WBC (Bld) 25.8 % Normal 14.0-50.0 [facility] Comment on above: Performed By: #### 2 289447, 1369955722, 3732061, 7984575, 3996419561, 401405573, 20922516 ####[address] [address] MCH (RBC) [Entitic mass] 23.3 pg Low 27.0-34.0 [facility] Comment on above: Performed By: #### 2 098024, 1566351706, 4900683, 0016292, 3908282393, 195581145, 50432662 ####[address] [address] MCHC (RBC) [Mass/Vol] 31.6 g/dL Normal 31.4-36.0 [facility] Comment on above: Performed By: #### 2 741306, 6759385844, 0628295, 2361186, 8505791481, 694672716, 79719187 ####[facility] [address] [place] [address] MCV (RBC) [Entitic vol] 73.6 fL Low 80.0-100.0 [facility] Comment on above: Performed By: #### 2 622847, 9062762732, 2507745, 5041404, 7821872810, 410172407, 27944563 ####[address] [place] [address] Microcytes Ql (Bld) PRESENT Invalid Interpretation Code [facility] Comment on above: Performed By: #### 2 273511, 2814096551, 0543443, 1206519, 8470328072, 801873716, 41181644 ####[address] [address] Monocytes (Bld) [#/Vol] 0.4 E9/L Normal 0.2-1.0 [facility] Comment on above: Performed By: #### 2 944946, 6598478684, 3461672, 0584211, 3173424407, 496884138, 23202523 ####[address] [address] Neutrophils (Bld) [#/Vol] 3.2 E9/L Normal 2.0-7.5 [facility] Comment on above: Performed By: #### 2 988653, 5214922814, 8816807, 9034821, 5945813102, 324295977, 31986695 ####[address] [address] Neutrophils/100 WBC (Bld) 63.4 % Normal 36.0-75.0 [facility] Comment on above: Performed By: #### 2 310539, 2520575138, 6043829, 8026864, 1951314575, 186789111, 57435523 ####[address] [address] Ovalocytes LM Ql (Bld) PRESENT Invalid Interpretation Code [facility] Comment on above: Performed By: #### 2 608015, 0098903845, 3504845, 0380644, 9064954701, 697872398, 33590629 ####[facility] [address] [place] Platelet mean volume (Bld) [Entitic vol] 10.4 fL Normal 6.4-10.8 [facility] Comment on above: Performed By: #### 2 136101, 0591101181, 1966029, 9299457, 8207264031, 581901933, 49020740 ####[address] [place] [address] Platelets (Bld) [#/Vol] 137.0 E9/L Low 150.0-500.0 [facility] Comment on above: Performed By: #### 2 538331, 5209047793, 3948627, 6903489, 9643317448, 817334791, 47297725 ####[address] [address] Poikilocytosis Auto Ql (Bld) PRESENT Invalid Interpretation Code [facility] Comment on above: Performed By: #### 2 335398, 7835568248, 1528822, 1176615, 8812089178, 704011375, 82159403 ####[address] [address] RBC (Bld) [#/Vol] 4.7 E12/L Normal 4.3-5.9 [facility] Comment on above: Performed By: #### 2 758052, 7316316121, 9065090, 8001343, 0681412648, 183299677, 50391397 ####[address] [address] WBC corrected for nucl RBC Auto (Bld) [#/Vol] 5.0 E9/L Normal 4.0-11.0 [facility] Comment on above: Performed By: #### 2 129416, 7812182335, 6730276, 7667419, 8126373550, 067962342, 89577537 ####[facility] [address] [place] [address] CHEMISTRYOrdered By: SYSTEM SYSTEM on 12-18-2023 Albumin [...] (Bld) [Mass fraction] 6.9 % High <=5.9% [facility] ChemAutoSS CMPon 12-18-2023 Albumin [Mass/Vol] 4.4 g/dL Normal 3.3-5.0 [facility] Comment on above: Performed By: #### 2 350736, 7976737886, 6467737, 2902421, 9651637706, 176954891, 95954574 ####[facility] [address] [place] [address] Albumin/Globulin (S) [Mass conc ratio] 2.6 High 1.1-2.2 [facility] Comment on above: Performed By: #### 2 586070, 7663155717, 2523973, 4978129, 8150986535, 912646621, 87373329 ####[facility] [address] [place] [address] ALP [Catalytic activity/Vol] 49 Int._Unit/L Normal 21-98 [facility] Comment on above: Performed By: #### 2 559412, 6980464116, 5013402, 3080741, 8387687332, 407951961, 53746404 ####[facility] [address] [place] [address] ALT No additional P-5'-P [Catalytic activity/Vol] 20 Int._Unit/L Normal 6-46 [facility] Comment on above: Performed By: #### 2 155945, 2953776779, 6631809, 1219750, 4388522659, 836014965, 37882844 ####[facility] [address] [place] [address] Anion gap [Moles/Vol] 13 mmol/L Normal 6-16 [facility] Comment on above: Performed By: #### 2 647915, 8283205590, 4192594, 0491570, 2491418318, 228773178, 12575195 ####[address] [place] [address] AST [Catalytic activity/Vol] 17 Int._Unit/L Normal 5-43 [facility] Comment on above: Performed By: #### 2 805052, 8829637851, 5098530, 7948334, 5571352436, 360682983, 59229295 ####[facility] [address] [place] [address] Bilirubin [Mass/Vol] 1.7 mg/dL High 0.0-1.1 [facility] Comment on above: Performed By: #### 2 259527, 7047541053, 8230307, 4116765, 3139194728, 754244744, 28364793 ####[facility] [address] [place] [address] Calcium [Mass/Vol] 9.3 mg/dL Normal 8.9-11.1 [facility] Comment on above: Performed By: #### 2 936852, 1264425905, 0747871, 7938900, 9306188911, 316186706, 65282508 ####[facility] [address] [place] [address] Chloride [Moles/Vol] 103 mmol/L Normal 101-111 [facility] Comment on above: Performed By: #### 2 313599, 1234212619, 6779818, 9116949, 4842047373, 618501489, 41438143 ####[facility] [address] [place] [address] CO2 [Moles/Vol] 26 mmol/L Normal 21-31 [facility] Comment on above: Performed By: #### 2 378530, 5795811210, 6372417, 3612693, 7141449372, 732122993, 61188523 ####[facility] [address] [place] [address] Creatinine [Mass/Vol] 0.8 mg/dL Normal 0.5-1.3 [facility] Comment on above: Performed By: #### 2 150017, 9420577431, 5651175, 7385799, 8270591199, 784152991, 81708024 ####[address] [address] Globulin (S) [Mass/Vol] 1.7 g/dL Normal 1.4-4.0 [facility] Comment on above: Performed By: #### 2 542138, 0721589479, 5241070, 2425446, 9508339212, 350562754, 58367521 ####[address] [address] Glucose [Mass/Vol] 124 mg/dL Normal 55-199 [facility] Comment on above: Performed By: #### 2 930146, 8781585131, 8297202, 3166344, 8931427106, 538101970, 50247804 ####[address] [place] [address] Potassium [Moles/Vol] 4.0 mmol/L Normal 3.5-5.3 [facility] Comment on above: Performed By: #### 2 296714, 4244415805, 1706961, 4149569, 0239591474, 763944441, 93217128 ####[address] [place] [address] Protein [Mass/Vol] 6.1 g/dL Normal 6.0-7.8 [facility] Comment on above: Performed By: #### 2 963327, 6365501371, 7256598, 0389979, 9983363141, 979894222, 07210335 ####[facility] [address] [place] [address] Sodium [Moles/Vol] 138 mmol/L Normal 135-145 [facility] Comment on above: Performed By: #### 2 018206, 2753831790, 2352558, 0287187, 0616616886, 835005800, 22366807 ####[facility] [address] [place] [address] Urea nitrogen [Mass/Vol] 8 mg/dL Normal 5-21 [facility] Comment on above: Performed By: #### 2 657965, 8161490662, 9667256, 8107479, 1660959100, 878598174, 05873617 ####[facility] [address] [place] [address] Urea nitrogen/Creatinine [Mass ratio] 10 No Units Normal 10-20 [facility] Comment on above: Performed By: #### 2 635527, 0893906689, 0407139, 9858063, 9218182263, 064834843, 72089676 ####[facility] [address] [place] [address] HEMATOLOGYOrdered By: SYSTEM SYSTEM on 12-18-2023 Anisocytosis [...] Normal 4.0 - 11.0 E9/L Remisol Heme NaaO8dio 12-18-2023 HbA1c (Bld) [Mass fraction] 6.9 % High <=5.9 [facility] Comment on above: Performed By: #### 2 681550, 7433306823, 1546211, 4182809, 2562244470, 085893349, 99883851 ####[facility] [address] [place] [address] Lipid Panelon 12-18-2023 Cholesterol [Mass/Vol] 118 mg/dL Low 120-200 [facility] Comment on above: Performed By: #### 2 576968, 8187852252, 5703077, 9544428, 7023124983, 530170630, 64489150 ####[facility] [address] [place] [address] Cholesterol in HDL [Mass/Vol] 37 mg/dL Invalid Interpretation Code [facility] Comment on above: Result Comment: '>= 60 LOW RISK' '<= 40 HIGH RISK' Performed By: #### 2 229313, 7141301958, 0772124, 3095964, 6325020936, 590789792, 36879217 ####[facility] [address] [place] [address] Cholesterol in LDL [Mass/Vol] 72 mg/dL Normal <=129 [facility] Comment on above: Performed By: #### 2 833513, 8658716512, 2388254, 3019637, 0251861494, 624939416, 74249142 ####[facility] [address] [place] [address] Cholesterol in VLDL [Mass/Vol] 22 mg/dL Normal 7-40 [facility] Comment on above: Performed By: #### 2 177703, 2782257086, 8229520, 7703320, 9861922023, 702444265, 96798737 ####[facility] [address] [place] [address] Triglyceride [Mass/Vol] 112 mg/dL Normal <=149 [facility] Comment on above: Performed By: #### 2 313125, 4852692637, 0988374, 7346674, 8723126688, 486350546, 01221079 ####[facility] [address] [place] [address] Patient Educationon 12-18-19 24 Patient Education Cardiovascular [...] signals of the heart. ? An ambulatory front desk monitor to record your heart's activity for [...] Trouble breathing. (more content not included)... Normal [facility] eGFRon 12-18-2023 eGFR 98 mL/min/1.73 m2 Normal >=59 [facility] Comment on above: Order Comment: Order added by Discern Expert. Performed By: #### 2 725993, 9649377199, 0941348, 6843206, 8728110003, 862307428, 18835280 ####[facility] [address] [place] [address] 36on 11-20-2023 36 Patient emailed me and asked if we had samples of Xarelto. Since he's on Medicare now it's very expensive for him. We haven't had a rep bring samples of Xarelto in about 1 year. I mentioned switching to Eliquis, since we do get samples of that. Ok to send RX for Eliquis 5mg bid? Please advise. Thanks! Normal [facility] Ambulatory Visit Summaryon 1 12-05-2022 Ambulatory [...] Appointments Monday 8:00 AM EDT With: Where: [place] [id number]- \.br\ Medications\.br \ What How Much When [...] BPH (benign prostatic hyperplasia)\.b r\ CAD in [place] artery\.br\ Controlled type 2 diabetes mellitus without [...] choosing us for your care.\.br\ \.br\ [facility] General Surgery Office/Clini [...] 28.0-28.9,adult BPH (benign prostatic hyperplasia) CAD in [place] artery Controlled type 2 diabetes mellitus without [...] tronically Signed By: WILLIAM NIELSON, Jose Luis Boyd\neptali\Date and Time Signed: 10/04/23 13:35 EST Reminderson 10-04-2023 Reminders - From: Kori Saldivar LPN To: N - Clinical; Sent: 10/04/2023 13:36:47 EST Show up: 08/21/2026 07:00:00 EST Subject: colonoscopy recall Due Date/Time: 09/20/2026 07:00:00 EST Reminder/Recall Patient due for surveillance colonoscopy 09/20/2026 due to history of tubular adenoma. Normal [facility] Pathology Noteon 09-27-2023 Pathology Note [id number] 4#1.00TIFF Normal [facility] Outside Colonoscopyon 2022 Outside Colonoscopy [id number] #1.00TIFF Normal [facility] Lab Reportson 09-21-2023 Lab Reports [id number] #1.00TIFF Normal [facility] Physician Referralon 023 Physician Referral [id number] #1.00TIFF [facility] Physician Referralon 023 Physician Referral [id number]# 1.00TIFF [facility] Consent for Procedure/Surger yon 08-30-2023 Consent for Procedure/Surgery [id number] 8#1.00TIFF [facility] Ambulatory Visit Summaryon 10-29-2022 Ambulatory Visit [...] Monday 8:00 AM EDT With: Where: [facility] Normal [address] [place] [address]- \.br\ Medications\.br \ What How Much When [...] BPH (benign prostatic hyperplasia)\.b r\ CAD in [place] artery\.br\ Controlled type 2 diabetes mellitus without [...] for choosing us for your care.\.br\ \.br\ [facility] Ambulatory Visit Summaryon 10-16-2022 Ambulatory Visit Summary MARCELLE DEUTSCH :1960 Visit Date:08/16/2023 Ambulatory Visit Instructions Your Diagnosis Kidney stone Gross hematuria BPH (benign prostatic hyperplasia) Personal history of kidney stones Former smoker Family history of kidney cancer Tests Performed Urnls Dip Stick Auto w/o Microscopy POC [address] Your Care Team Attending Physician - Teo [...] Jose Luis THOMAS MD Where: General Surgery [facility] Invalid Interpretation Code [address] [place] [address]- \.br\ Monday 8:40 AM EDT \.br\ With: Ursula Love MD\.br\ Where: [facility] Patient Educationon 08-16-20 Patient Education Nephrology Dietary [...] Spinach (cooked), rhubarb, beets, sweet potatoes, and Syrian chard. ? Peanuts. ? Potato chips, faroese fries, and baked potatoes with skin on. ? Nuts and nut products. ? Chocolate. ? If you regularly take a diuretic medicine, make sure to eat at least 1 or 2 servings of fruits or vegetables that are high in potassium each day. These include: ? Avocado. ? Banana. ? Licking, prune, carrot, or tomato juice. ? Baked [...] fish oil, or vitamin B6. ? Take extk-chy-ggcvmqv and prescription medicines only as told by your health care provider. These include supplements. What foods should I limit? Limit your in (more content not included)... Normal [facility] Screenson 08-16-2023 Screens [id number] #1.00TIFF Normal [facility] Urology Office/Clinic Noteon 08-16-2023 Urology Office/Clinic Note [...] Modifications. -Increase fluid intake, 90oz/day, clear fluids, lemon/[place] 2. Gross hematuria (R31.0: Gross hematuria) CT [...] (benign prostatic (more content not included)... Normal [facility] Comment on above: Result Comment: Elec tronically Signed By: Shelley Bruce MD\.br\Date and Time Signed: 08/16/23 09:03 EDT\.br\Electronically Co-Signed By: Ale Parekh\.br\Date and Time Co-Signed: 08/16/23 08:[address] Abdomen/Pelvis w/o [place] evens 08-07-2023 CT Abdomen/Pelvis w/o Contrast Exam Date/Time: [...] No Oral contrast amount in ml's: 0 [facility] Consent for Treatmenton 10-2 Consent for Treatment [id number] #1.00TIFF [facility] Ambulatory Visit Summaryon [...] Jose Luis THOMAS MD Where: General Surgery [facility] Invalid Interpretation Code [address] [place] [address]- \.br\ Monday 8:40 AM EDT \.br\ With: Ursula Love MD\.br\ Where: [facility] Nurse Consultation Noteon Nurse Consultation Note Physical [...] influenza virus vaccine, inactivated 07/30/2018 Recorded Normal [facility] URINALYSISOrdered By: Isaiah Garcia on [...] PM) Normal Negative [facility] UA Auto SS [place].plasma/Lithiu m.RBC (Bld) [Mass ratio] 0-3 /HPF Normal [...] [facility] UA Auto SS Urobilinogen Qn (U) 0.6045003 {Denny'U}/dL Normal 0.0 - 1.0 EU/dL [facility] UA Auto SS WBC Auto Ql (U) Negative (08/04/23 2:10 PM) Normal Negative [facility] UA Auto SS WBC LM.HPF (Urine sed) [#/Area] 0-5 /HPF Normal 0-5/HPF [facility] UA Auto SS Urinalysison 08-04-2023 Bacteria LM Ql (Urine sed) TRACE Normal Trace [facility] Comment on above: Performed By: #### 1 4076063 ####[facility] [address] [place] [address] Bilirubin Ql (U) Negative Normal Negative [facility] Comment on above: Performed By: #### 1 1360519 ####[facility] [address] [facility] [place] [address] Clarity (U) CLEAR Normal Clear [facility] Comment on above: Performed By: #### 1 1530239 ####[facility] [address] [place] [address] Color (U) YELLOW Normal Yellow [facility] Comment on above: Performed By: #### 1 0082863 ####[facility] [address] [place] [address] Crystals LM Ql (Urine sed) Present Normal [facility] Comment on above: Performed By: #### 1 3219443 ####[address] [address] Epithelial cells.squamous LM.HPF (Urine sed) [#/Area] 0-2 Normal 0-2 [facility] Comment on above: Performed By: #### 1 1768615 ####[facility] [address] [place] [address] Glucose Test strip (U) [Mass/Vol] Negative Normal Negative [facility] Comment on above: Performed By: #### 1 3268639 ####[address] [address] Hemoglobin Ql (U) Negative Normal Negative [facility] Comment on above: Performed By: #### 1 2875028 ####[facility] [address] [place] [address] Ketones (U) [Mass/Vol] Negative Normal Negative [facility] Comment on above: Performed By: #### 1 9175838 ####[facility] [address] [place] [address] [place].plasma/Lithiu m.RBC (Bld) [Mass ratio] 0-3 Normal 0-3 [facility] Comment on above: Performed By: #### 1 5803938 ####[facility] [address] [place] [address] Nitrite Ql (U) Negative Normal Negative [facility] Comment on above: Performed By: #### 1 6999865 ####[address] [address] pH (U) 6.0 [pH] Invalid Interpretation Code 5.0-9.0 [facility] Comment on above: Performed By: #### 1 6595454 ####[address] [address] Protein (U) [Mass/Vol] Negative Normal Negative [facility] Comment on above: Performed By: #### 1 6974155 ####[address] [address] Specific gravity (U) [Rel density] <=1.005 Invalid Interpretation Code 1.005-1.030 [facility] Comment on above: Performed By: #### 1 4104925 ####[address] [address] Type of Urine collection method Clean Catch Normal [facility] Comment on above: Performed By: #### 1 0799108 ####[address] [address] Urobilinogen Qn (U) 0.2 {Denny'U}/dL Normal 0.0-1.0 [facility] Comment on above: Performed By: #### 1 7885605 ####[address] [address] WBC Auto Ql (U) Negative Normal Negative [facility] Comment on above: Performed By: #### 1 9368839 ####[address] [address] WBC LM.HPF (Urine sed) [#/Area] 0-5 Normal 0-5 [facility] Comment on above: Performed By: #### 1 2164997 ####[address] [address] Physician Referralon 023 Physician Referral [id number] #1.00TIFF Normal [facility] Lab Reportson 08-02-2023 Lab Reports [id number] #1.00TIFF Normal [facility] Ambulatory Visit Summaryon 1 Ambulatory Visit Summary MARCELLE DEUTSCH :1960 Visit Date:07/19/2023 Ambulatory Visit Instructions Your Diagnosis BMI 28.0-28.9,adult Non-smoker Hematuria Kidney stone Left flank pain Dysuria Tests Performed Urnls Dip Stick Non-Auto w/o Micrscpy POC 47003 Your Care Team Attending Physician - Juan [...] Appointments Monday 8:00 AM EDT With: Where: [facility] [address] [place] [address]- \.br\ Medications\.br \ What How Much When Why Instructions\.b r\ New tamsulosin (Flomax 0.4 mg Cap) 1 Capsules By Mouth Every day BMI 28.0-28.9,adult Non-smoker Hematuria Kidney stone Left flank pain Dysuria Pickup at [facility]/pharmacy #2250\.br\ Unchanged amlodipine (amLODIPine 5 mg Tab) By [...] (in the evening)\.br\ Pharmacy Information\.br \ [facility]/pharmacy #[id number]: [address], [place] [id number] [phone]\.br\ Test Results\.br\ Urnls Dip Stick Non-Auto w/o Micrscpy POC 91816 (07/19/2023)\.b r\ Bilirubin Urine Dipstick - Negative\.br\ Blood Urine Dipstick - 3+ Large\.br\ Glucose Urine Dipstick - Negative\.br\ Ketones Urine Dipstick - Negative\.br\ Leukocytes Urine Dipstick - Negative\.br\ Nitrite Urine Dipstick - Negative\.br\ Protein Urine Dipstick - Negative\.br\ Specific [place] Urine Dipstick - <=1.005\.br\ Urine Appearance Urine Dipstick - Clear\.br\ Urine Color Urine Dipstick - Light yellow\.br\ Urobilinogen Urine Dipstick - Normal 0.2-1 EU/dl\.br\ pH Urine Dipstick - 7\.br\ Allergies\.br\ penicillins\.br \ Problems\.br\ Ongoing - Any problem that you are currently receiving treatment for.\.br\ BMI 28.0-28.9,adult \.br\ CAD in [place] artery\.br\ Controlled type 2 diabetes mellitus without [...] Dyslipidemia\.b r\ Hypertension\.b r\ Metabolic syndrome\.br\ \.br\ [facility] Ambulatory Visit Summary MARCELLE DEUTSCH :1960 Visit Date:07/19/2023 Ambulatory Visit Instructions Your Diagnosis BMI 28.0-28.9,adult Non-smoker Hematuria Kidney stone Left flank pain Dysuria Tests Performed Urnls Dip Stick Non-Auto w/o Micrscpy POC 82783 Your Care Team Attending Physician - Karen [...] Monday 8:00 AM EDT With: Where: [facility] Normal [address] [place] [address]- \.br\ Medications\.br \ What How Much When Why Instructions\.b r\ New tamsulosin (Flomax 0.4 mg Cap) 1 Capsules By Mouth Every day BMI 28.0-28.9,adult Non-smoker Hematuria Kidney stone Left flank pain Dysuria Pickup at [facility]/pharmacy #[id number]\.br\ Unchanged amlodipine (amLODIPine 5 mg Tab) By [...] (in the evening)\.br\ Pharmacy Information\.br \ [facility]/pharmacy #[id number]: [address], [place] [phone]\.br\ Test Results\.br\ Urnls Dip Stick Non-Auto w/o Micrscpy POC 63993 (07/19/2023)\.b r\ Bilirubin Urine Dipstick - Negative\.br\ Blood Urine Dipstick - 3+ Large\.br\ Glucose Urine Dipstick - Negative\.br\ Ketones Urine Dipstick - Negative\.br\ Leukocytes Urine Dipstick - Negative\.br\ Nitrite Urine Dipstick - Negative\.br\ Protein Urine Dipstick - Negative\.br\ Specific [place] Urine Dipstick - <=1.005\.br\ Urine Appearance Urine Dipstick - Clear\.br\ Urine Color Urine Dipstick - Light yellow\.br\ Urobilinogen Urine Dipstick - Normal 0.2-1 EU/dl\.br\ pH Urine Dipstick - 7\.br\ Allergies\.br\ penicillins\.br \ Problems\.br\ Ongoing - Any problem that you are currently receiving treatment for.\.br\ BMI 28.0-28.9,adult \.br\ CAD in [place] artery\.br\ Controlled type 2 diabetes mellitus without [...] Daily, # 10 cap(s), Refills(s) 0, Pharmacy: [facility]/pharmacy #[id number], 178, cm, 07/19/23 11:20:00 EDT, Height/Length Dosing, 89.2, kg, 07/19/23 11:20:00 EDT, Weight Dosing Urnls Dip Stick Non-Auto w/o Micrscpy POC 91236 2. Hematuria (R31.9: Hematuria, unspecified) large blood in urinalysis in office. everything else negative Ordered: tamsulosin, 0.4 mg = 1 cap(s), Oral, Daily, # 10 cap(s), Refills(s) 0, Pharmacy: [facility]/pharmacy #[id number], 178, cm, 07/19/23 11:20:00 EDT, Height/Length Dosing, 89.2, kg, 07/19/23 11:20:00 EDT, Weight Dosing Urnls Dip Stick Non-Auto w/o Micrscpy POC 06443 3. Kidney stone (N20.0: Calculus of kidney) will order flomax. if symptoms worsen will order KUB Ordered: tamsulosin, 0.4 mg = 1 cap(s), Oral, Daily, # 10 cap(s), Refills(s) 0, Pharmacy: [facility]/pharmacy #[id number], 178, cm, 07/19/23 11:20:00 EDT, Height/Length Dosing, 89.2, kg, 07/19/23 11:20:00 EDT, Weight Dosing 4. Dysuria (R30.0: Dysuria) pt states the pain is improving Ordered: tamsulosin, 0.4 mg = 1 cap(s), Oral, Daily, # 10 cap(s), Refills(s) 0, Pharmacy: [facility]/pharmacy #[id number], 178, cm, 07/19/23 11:20:00 EDT, Height/Length Dosing, 89.2, kg, 07/19/23 11:20:00 EDT, Weight Dosing Urnls Dip Stick Non-Auto w/o Micrscpy POC 72315 5. Non-smoker (Z78.9: Other specified health status) continue not smoking Ordered: tamsulosin, 0.4 mg = 1 cap(s), Oral, Daily, # 10 cap(s), Refills(s) 0, Pharmacy: [facility]/pharmacy #[id number], 178, cm, 07/19/23 11:20:00 EDT, Height/Length Dosing, 89.2, kg, 07/19/23 11:20:00 EDT, Weight Dosing Urnls Dip Stick Non-Auto w/o Micrscpy POC 97791 6. BMI 28.0-28.9,adult (Z68.28: Body mass index [BMI] 28.0-28.9, adult) BMI education complete Ordered: tamsulosin, 0.4 mg = 1 cap(s), Oral, Daily, # 10 cap(s), Refills(s) 0, Pharmacy: [facility]/pharmacy #[id number], 178, cm, 07/19/23 11:20:00 EDT, Height/Length Dosing, 89.2, kg, 07/19/23 11:20:00 EDT, Weight Dosing Urnls Dip Stick Non-Auto w/o Micrscpy POC 39142 Follow-up No qualifying data available Problem List/Past Medical History Ongoing BMI 28.0-28.9,adult CAD in [place] artery Controlled type 2 diabetes mellitus without [...] Low Risk, (more content not included)... Normal [facility] Comment on above: Result Comment: Elec tronically Signed By: Karen Deleon\.br\Date and Time Signed: 07/19/23 17:48 EDT PSA Free & Totalon 3 Free PSA/Total PSA [Mass fraction] UTC Abnormal >=25.0 [facility] Comment on above: Result Comment: Resu lt [...] SO, 1998; 279:1542-7 Performed By: #### 1 [id number] #### [facility] Laboratory [address] [place] [address] Free PSA [Mass/Vol] <0.1 Invalid Interpretation Code [facility] Comment on above: Result Comment: The concentration of free PSA and total PSA determined with assays from different manufacturers can vary due to differences in assay methods and specificity. Values obtained with different brown sourer's assays cannot be used interchangeably. The methodology used to obtain this result was chemiluminescence using [employer]'s Access Hybritech PSA reagent and Access Hybritech free PSA reagent. Performed By: #### 1 [id number], [id number] #### [facility] [address] [place] [address] Prostate specific Ag [Mass/Vol] 0.2 ng/mL Normal 0.1-3.5 [facility] Comment on above: Result Comment: The concentration of PSA determined by different manufacturers can vary due to differences in assay methods and reagent specificity. Values obtained from different assay methods cannot be used interchangeably. The methodology used for this result was chemiluminescence using [employer]'s Access Hybritech PSA reagent. Performed By: #### 1 [id number], [id number] #### [facility] [address] [place] [address] CHEMISTRYOrdered By: Julien merida on 07-04-2023 Albumin DL <= 20 mg/L (U) [Mass/Vol] microgram/mL Normal 0.0 - 19.0 mcg/mL [facility] Remisol Albumin Elph (U) [Mass fraction] mg/dL Invalid Interpretation Code [facility] Remisol Creatinine (U) [Mass/Vol] 17.7 mg/dL Invalid Interpretation Code [facility] Remisol U Prot/Creat Ratio [facility] Invalid Interpretation Code 0.00 - 200.00 [facility] Remisol U Microalbon 07-04-2023 Albumin DL <= 20 mg/L (U) [Mass/Vol] mg/dL Normal 0.0-19.0 [facility] Comment on above: Performed By: #### 1 [id number] ####[facility] [address] [place] [address] U Protein/Creat Ratioon 06-16 Albumin Elph (U) [Mass fraction] <6.0 Invalid Interpretation Code [facility] Comment on above: Result Comment: The reference range and other method performance specifications have not been established for this test; results should be integrated into the clinical context for interpretation. Performed By: #### 1 [id number], [id number] ####[facility] [address] [place] [address] Creatinine (U) [Mass/Vol] 17.7 mg/dL Invalid Interpretation Code [facility] Comment on above: Result Comment: The reference range and other method performance specifications have not been established for this test; results should be integrated into the clinical context for interpretation. Performed By: #### 1 [id number], [id number] ####[facility] [address] [place] [address] U Prot/Creat Ratio [facility] Invalid Interpretation Code .00-200.00 [facility] Comment on above: Performed By: #### 1 [id number], [id number] ####[facility] [address] [place] [address] Ambulatory Visit Summaryon 0 07-03-2023 Ambulatory Visit [...] Appointments Monday 8:00 AM EDT With: Where: [place] [id number] \.br\ Medications\.br \ What How Much When Instructions\.b r\ Changed omeprazole (omeprazole 20 mg Cap-DR) 1 Capsules By Mouth Every day Pickup at [facility]\.br\ Unchanged diltiazem (diltiazem 30 mg Tab) See [...] or concerns \.br\ Pharmacy Information\.br \ [facility]: [address] [place] [phone]\.br\ Allergies\.br\ penicillins\.br \ Problems\.br\ Ongoing - Any problem that you are currently receiving treatment for.\.br\ BMI 28.0-28.9,adult \.br\ CAD in [place] artery\.br\ Controlled type 2 diabetes mellitus without [...] r\ Hypertension\.b r\ Metabolic syndrome\.br\ \.br\ [facility] CHEMISTRYOrdered By: Bobby roman on 07-03-2023 HbA1c (Bld) [Mass fraction] 6.8 % High <=5.9% [facility] ChemAutoSS Family Medicine Office/Clini c Noteon 07-03-2023 [...] didn't feel it was a problem email [email or web address] must go on refill omeprazole to [facility] colon [place] History of Present Illness - Here for [...] # 30 tab(s), Refills(s) 0, Pharmacy: [facility]/pharmacy #[id number] omeprazole, 20 mg = 1 cap(s), Oral, Daily, # 90 cap(s), Refills(s) 1, Pharmacy: [facility], 178, cm, 07/03/23 7:24:00 EDT, Height/Length Dosing, 90, kg, 07/03/23 7:24:00 EDT, Weight Dosing - Follow up in 6 months for Welcome to medicare. Follow-up No qualifying data available Problem List/Past Medical History Ongoing BMI 28.0-28.9,adult CAD in [place] artery Controlled type 2 diabetes mellitus without complication, without long-term current use of insulin Excess ear wax GERD without esophagitis Longstanding (more content not included)... Normal [facility] Comment on above: Result Comment: Elec tronically Signed By: Km NIELSON, Ursula Luis.br\Date and Time Signed: 07/03/23 07:50 EDT [employer] 07-03-2023 Forms [id number] #1.00CD:127 Normal [facility] Forms [id number]# 1.00CD:127 Normal [facility] [id number] 07-03-2023 HbA1c (Bld) [Mass fraction] 6.8 % High <=5.9 [facility] Comment on above: Performed By: #### 1 [id number] #### [facility] Laboratory [address] [place] [address] CBC AUTO DIFFon 01-04-2023 BASO # 0.1 103/ul Normal 0.0-0.1 [facility] Comment on above: Performed By: #### C BC #### [facility] [address] [place] [address] Dr. Lucia San Basophils/100 WBC (Bld) 1.0 % Normal 0.2-2.0 [facility] Comment on above: Performed By: #### C BC #### [facility] [address] [place] [address] Dr. Lucia San EO # 0.1 103/ul Normal 0.0-0.7 [facility] Comment on above: Performed By: #### C BC #### [facility] [address] [place] [address] Dr. Lucia San Eosinophils/100 WBC (Bld) 2.5 % Normal 0.9-7.0 [facility] Comment on above: Performed By: #### C BC #### [facility] [address] [place] [address] Dr. Lucia San Erythrocyte distribution width (RBC) [Ratio] 17.3 % Critically high 11.0-15.0 [facility] Comment on above: Performed By: #### C BC #### [facility] [address] [place] [address] Dr. Lucia San Hematocrit (Bld) [Volume fraction] 35.2 % Critically low 42.0-54.0 [facility] Comment on above: Performed By: #### C BC #### [facility] [address] [place] [address] Dr. Lucia San Hemoglobin (Bld) [Mass/Vol] 11.3 g/dL Critically low 14.0-18.0 [facility] Comment on above: Performed By: #### C BC #### [facility] [address] [place] [address] Dr. Lucia San IG # 0.02 10e3/ul Normal 0.00-0.03 [facility] Comment on above: Performed By: #### C BC #### [facility] [address] [place] [address] Dr. Lucia San IG % 0.4 % Normal 0.0-0.5 [facility] Comment on above: Performed By: #### C BC #### [facility] [address] [place] [address] Dr. Lucia San LYMPH # 1.6 103/ul Normal 1.2-3.8 [facility] Comment on above: Performed By: #### C BC #### [facility] [address] [place] [address] Dr. Lucia San Lymphocytes/100 WBC (Bld) 30.9 % Normal 20.5-60.0 [facility] Comment on above: Performed By: #### C BC #### [facility] [address] [place] [address] Dr. Lucia San MANUAL DIFF REQ NO Normal [facility] Comment on above: Performed By: #### C BC #### [facility] [address] [place] [address] Dr. Lucia San MCH (RBC) [Entitic mass] 23.9 pg Critically low 25.9-34.0 [facility] Comment on above: Performed By: #### C BC #### [facility] [address] [place] [address] Dr. Lucia San MCHC (RBC) [Mass/Vol] 32.1 g/dL Normal 29.9-35.2 [facility] Comment on above: Performed By: #### C BC #### [facility] [address] [place] [address] Dr. Lucia San MCV (RBC) [Entitic vol] 74.6 fL Critically low 80.0-94.0 [facility] Comment on above: Performed By: #### C BC #### [facility] [address] [place] [address] Dr. Lucia San MONO # 0.5 103/ul Normal 0.3-0.8 [facility] Comment on above: Performed By: #### C BC #### [facility] [address] [place] [address] Dr. Lucia San Monocytes/100 WBC (Bld) 9.1 % Normal 1.7-12.0 [facility] Comment on above: Performed By: #### C BC #### [facility] [address] [place] [address] Dr. Lucia San NEUT # 2.9 103/ul Normal 1.4-6.5 [facility] Comment on above: Performed By: #### C BC #### [facility] [address] [place] [address] Dr. Lucia San Neutrophils/100 WBC (Bld) 56.1 % Normal 43.0-75.0 [facility] Comment on above: Performed By: #### C BC #### [facility] [address] [place] [address] Dr. Lucia San Platelet mean volume (Bld) [Entitic vol] 11.6 fL Normal 9.5-13.5 [facility] Comment on above: Performed By: #### C BC #### [facility] [address] [place] [address] [address] Lucia San PLT 172 103/ul Normal 150-450 [facility] Comment on above: Performed By: #### C BC #### [facility] [address] [place], [place] [address] Dr. Lucia San RBC 4.72 106/ul Normal 4.70-6.10 [facility] Comment on above: Performed By: #### C BC #### [facility] [address] [place], [place] [address] Dr. Lucia San WBC 5.2 103/ul Normal 4.0-11.0 [facility] Comment on above: Performed By: #### C BC #### [facility] [address] [place] [id number] Lucia San ECHOCARDIO M/2D COMPLETEon 0 01-04-2023 ECHOCARDIO M/2D COMPLETE Patient: MARCELLE DEUTSCH Exam Date: 01/04/2023 : 1960 Gender:M Ordering : DR BLANKA GORE M.D. Admission #: [id number] Family : Order #: [id number] CLICK HERE TO VIEW EXAM ECHOCARDIOGRAM REPORT [...] Area (VTI): 3.28 cm2, 3.28 cm2 Deceleration Brooks: 0.48 m/s2 Pressure Half-Time: 1.33 s Peak [...] [place] M.D. on 01/04/2023 at 15:00 Normal [facility] GLYCOHEMOGLOBIN A1Con 2022 ADA RECOMMENDATION SEE BELOW Normal [facility] Comment on above: Result Comment: ADA RECOMMENDED LIMIT 4.0 - 6.0 ADA THERAPEUTIC TARGET < 7.0 ACTION SUGGESTED > 7.0 Performed By: #### A 1C #### [facility] [address] [place] [address] Dr. Lucia San HbA1c (Bld) [Mass fraction] 6.9 % Critically high 4.5-6.2 [facility] Comment on above: Performed By: #### A 1C #### [facility] [address] [place] [address] Dr. Lucia San LIPID PROFILEon 01-04-2023 CHOL-HDL RATIO NORM SEE BELOW Normal [facility] Comment on above: Result Comment: 3.3 - 4.4 LOW RISK 4.4 - 7.1 AVERAGE RISK 7.1 - 11.0 MODERATE RISK >11.0 HIGH RISK Performed By: #### L IPID #### [facility] [address] [place] [address] [address] Lucia San Cholesterol [Mass/Vol] 140 mg/dL Normal <=200 [facility] Comment on above: Performed By: #### L IPID #### [facility] [address] [place] [address] Dr. Lucia San Cholesterol in HDL [Mass/Vol] 37 mg/dL Critically low 40-60 [facility] Comment on above: Performed By: #### L IPID #### [facility] [address] [place] [address] Dr. Lucia San Cholesterol in LDL [Mass/Vol] 80.2 mg/dL Normal [facility] Comment on above: Performed By: #### L IPID #### [facility] [address] [place] [address] [address] Lucia San Cholesterol.total/Cho lesterol in HDL [Mass ratio] 3.8 {ratio} Normal [facility] Comment on above: Performed By: #### L IPID #### [facility] [address] [place] [address] Dr. Lucia San HDL NORMAL > or = 60 mg/dl - LOW CARDIOVASCULAR RISK <40 mg/dl - HIGH CARDIOVASCULAR RISK Normal [facility] Comment on above: Performed By: #### L IPID #### [facility] [address] [place] [address] Dr. Lucia San LDL CALC NORMAL SEE BELOW Normal [facility] Comment on above: Result Comment: <100 mg/dl OPTIMAL 100 - 129 mg/dl NEAR OR ABOVE OPTIMAL 130 - 159 mg/dl BORDERLINE HIGH 160 - 189 mg/dl HIGH >190 mg/dl VERY HIGH Performed By: #### L IPID #### [facility] [address] [place] [address] Dr. Lucia San Triglyceride [Mass/Vol] 114 mg/dL Normal <=150 [facility] Comment on above: Performed By: #### L IPID #### [facility] [address] [place] [address] Dr. Lucia San VLDL CALC 22.8 mg/dL Normal [facility] Comment on above: Performed By: #### L IPID #### [facility] [address] [place] [address] Dr. Lucia San MICROALBUMIN, RAND URon 03-2 mALB 1.5 mg/L Normal <=30.0 [facility] Comment on above: Performed By: #### M ALBR #### [facility] [address] [place] [id number] Lucia San NM STRESS/REST MULTIon 01-04 NM STRESS/REST MULTI Patient: MARCELLE DEUTSCH Exam Date: 01/04/2023 : 1960 Gender:M Ordering : DR BLANKA GORE M.D. Admission #: [id number] Family : Order #: [id number] CLICK HERE TO VIEW EXAM RADIOLOGY REPORT [...] LOCATION: Basal inferior. Mid-anterior. Mid-inferior. Apical inferior. [place]. SIZE: Large (5 or more segments). SEVERITY: [...] MD on 01/04/2023 at 11:17 Normal [facility] PROF 14(COMP METB)on 023 Albumin [Mass/Vol] 4.1 g/dL Normal 3.4-5.0 [facility] Comment on above: Performed By: #### C #### [facility] [address] [place] [address] Dr. Lucia San Albumin/Globulin [Mass ratio] 1.7 {ratio} Normal [facility] Comment on above: Performed By: #### C MP #### [facility] [address] [place] [address] Dr. Lucia San ALP [Catalytic activity/Vol] 51 U/L Normal 46-116 [facility] Comment on above: Performed By: #### C MP #### [facility] [address] [place] [address] Dr. Lucia San ALT [Catalytic activity/Vol] 49 U/L Normal 16-63 [facility] Comment on above: Performed By: #### C MP #### [facility] [address] [place] [address] Dr. Lucia San Anion gap [Moles/Vol] 16.6 mmol/L Normal [facility] Comment on above: Performed By: #### C MP #### [facility] [address] [place] [address] Dr. Lucia San AST [Catalytic activity/Vol] 28 U/L Normal 15-37 [facility] Comment on above: Performed By: #### C MP #### [facility] [address] [place] [address] Dr. Lucia San Bilirubin [Mass/Vol] 1.7 mg/dL Critically high 0.2-1.0 [facility] Comment on above: Performed By: #### C MP #### [facility] [address] [place] [address] Dr. Lucia San Calcium [Mass/Vol] 9.2 mg/dL Normal 8.5-10.1 [facility] Comment on above: Performed By: #### C MP #### [facility] [address] [place] [address] Dr. Lucia San Chloride [Moles/Vol] 100 mmol/L Normal 98-107 [facility] Comment on above: Performed By: #### C MP #### [facility] [address] [place] [address] Dr. Lucia San CO2 [Moles/Vol] 25.9 mmol/L Normal 21.0-32.0 [facility] Comment on above: Performed By: #### C MP #### [facility] [address] [place] [address] Dr. Lucia San Creatinine [Mass/Vol] 1.03 mg/dL Normal 0.70-1.30 [facility] Comment on above: Performed By: #### C MP #### [facility] [address] [place] [address] [address] Lucia San EGFR-AF PALESTINIAN >60 Normal >=60 [facility] Comment on above: Performed By: #### C MP #### [facility] [address] [place] [address] Dr. Lucia San EGFR-NON AF PALESTINIAN >60 Normal >=60 [facility] Comment on above: Performed By: #### C MP #### [facility] [address] [place] [address] Dr. Lucia San Globulin (S) [Mass/Vol] 2.4 g/dL Normal [facility] Comment on above: Performed By: #### C MP #### [facility] [address] [place] [address] Dr. Lucia San Glucose [Mass/Vol] 151 mg/dL Normal [facility] Comment on above: Performed By: #### C MP #### [facility] [address] [place] [address] Dr. Lucia San Performed By: #### A 1C #### [facility] [address] [place] [address] Dr. Lucia San Potassium [Moles/Vol] 4.5 mmol/L Normal 3.5-5.1 [facility] Comment on above: Performed By: #### C MP #### [facility] [address] [place] [address] Dr. Lucia San Protein [Mass/Vol] 6.5 g/dL Normal 6.4-8.2 [facility] Comment on above: Performed By: #### C MP #### [facility] [address] [place] [address] Dr. Lucia San Sodium [Moles/Vol] 138 mmol/L Normal 136-145 [facility] Comment on above: Performed By: #### C MP #### [facility] [address] [place] [address] [address] Lucia San Urea nitrogen [Mass/Vol] 13.0 mg/dL Normal 7.0-18.0 [facility] Comment on above: Performed By: #### C MP #### [facility] [address] [place] [address] [address] Lucia San Urea nitrogen/Creatinine [Mass ratio] 12.6 mg/mg Normal [facility] Comment on above: Performed By: #### C MP #### [facility] [address] [place] [address] [address] Lucia San CNOVon 02-03-2022 CNOV Office Visit (CARDMN) MARCELLE DEUTSCH ([id number]) 1960 M Date Time Provider Department 02/03/22 8:30 AM JANNET GONZALEZ During your visit today, we recorded the following information about you: Pulse Blood pressure Weight Height 60/minute 180/76 85.3 kg 1.765 m Jannet Gonzalez MD 02/03/2022 9:58 AM Signed [facility] Department of Cardiovascular Medicine SECTION OF CARDIAC PACING and ELECTROPHYSIOLOGY OUTPATIENT VISIT DATE February 03, 2022 OUTPATIENT VISIT TYPE CONSULTATION PRIMARY CARE PHYSICIAN: Mark Browning DO [address] [place] [address] CHIEF COMPLAINT: PAF HISTORY OF PRESENT ILLNESS [...] he is in SR. He denies syncope. [id number] (HTN, CAD, DM) tolerating Xarelto PAST MEDICAL HISTORY Diagnosis Date - Atrial fibrillation (HCC) 2013 - CAD (coronary artery disease) 09/02/2014 - Diabetes mellitus (HCC) - Dyslipidemia - Hypertension - Metabolic syndrome PAST SURGICAL HISTORY Procedure Laterality Date - AFIB PVI W/COMPL EP STUDY 07/10/2017 - CARDIAC CATH 09/02/2014 SEDIMENTATIONIST of proximal RCA. 70% ostial D1. Preserved [...] sweating-No, Frequen (more content not included)... Normal [facility] CNCOon 12-04-2021 CNCO Letter Text Normal [facility] Dermatopathologyon Dermatopathology [facility] Dermatopathology Laboratory [address] [place] [id number] DERMATOPATHOLOGY REPORT Name:MARCELLE DEUTSCH Rec #. [id number] Location: [facility] Date of Procedure: 10/02/2020 Race: Unknown Date Received: 10/06/2020 /Sex: 1960 (Age: 60) / M Date Reported: 10/08/2020 Other: Submitting Physician:SONIA GREEN APRN, ACTIMIZE ARCHITECT-C FINAL DIAGNOSIS A. SKIN, (R) NECK, BIOPSY: [...] is a mayers piece of skin measuring [id number] in aggreg (small). The specimen is inked and embedded in toto. B: Received in formalin is a mayers piece of skin measuring [id number]. The specimen is inked and embedded in toto. ink/10/06/2020 Microscopic Description: A,B: Microscopic examination performed. Normal [facility] Comment on above: Performed By: #### D #### Dermatopathology Vital Signs Date Time Vital Sign Value Performing Clinician Facility 03-14-2024 10:16040 Body temperature 97.52 [degF] Ana Lingdick [facility] 03-14-2024 10:16-0400 Diastolic blood pressure 85 mm[Hg] Ana Spencer [facility] 03-14-2024 10:16-0400 Heart rate 59 /min Ana Lingke [facility] 03-14-2024 10:16-0400 Mean blood pressure 116 mm[Hg] Ana Spencer [facility] 03-14-2024 10:16-0400 Respiratory rate 16 /min Ana Spencer [facility] 03-14-2024 10:16-0400 SaO2% (BldA) [Mass fraction] 99 % Ana Spencer [facility] 03-14-2024 10:16-0400 Systolic blood pressure 179 mm[Hg] Ana Spencer [facility] 02-15-2024 13:10-0400 Blood Pressure Location Ana Spencer [facility] 02-15-2024 13:10-0400 Body temperature 98.06 [degF] Ana Spencer [facility] 02-15-2024 13:10-0400 Diastolic blood pressure 61 mm[Hg] Ana Spencer [facility] 02-15-2024 13:10-0400 Heart rate 62 /min Ana Spencer [facility] 02-15-2024 13:10-0400 Mean blood pressure 77 mm[Hg] Ana Lingke [facility] 02-15-2024 13:10-0400 Respiratory rate 16 /min Ana Lingke [facility] 02-15-2024 13:10-0400 SaO2% (BldA) [Mass fraction] 99 % Ana Lingke [facility] 02-15-2024 13:10-0400 Systolic blood pressure 108 mm[Hg] Ana Hubbardboske [facility] 02-08-2024 13:00-0400 Blood Pressure Location Ana Hubbardboske [facility] 02-08-2024 13:00-0400 Body temperature 98.24 [degF] Ana Lingke [facility] 02-08-2024 13:00-0400 Diastolic blood pressure 82 mm[Hg] Ana Hubbardboske [facility] 02-08-2024 13:00-0400 Heart rate 80 /min Ana Lingke [facility] 02-08-2024 13:00-0400 SaO2% (BldA) [Mass fraction] 100 % Ana Lingke [facility] 02-08-2024 13:00-0400 Systolic blood pressure 142 mm[Hg] Ana Lingke [facility] 01-25-2024 08:58-0400 Diastolic blood pressure 82 mm[Hg] Ana Lingke [facility] 01-25-2024 08:58-0400 Heart rate 65 /min Ana Lingke [facility] 01-25-2024 08:58-0400 Mean blood pressure 118 mm[Hg] Ana Hubbardboske [facility] 01-25-2024 08:58-0400 SaO2% (BldA) [Mass fraction] 99 % Ana Hubbardboske [facility] 01-25-2024 08:58-0400 Systolic blood pressure 190 mm[Hg] Ana Hubbardboske [facility] 08-16-2023 08:21-0400 Blood Pressure Location Shelley Lue [facility] 08-16-2023 08:21-0400 Diastolic blood pressure 83 mm[Hg] Shelley Lue [facility] 08-16-2023 08:21-0400 Heart rate 69 /min Shelley Lue [facility] 08-16-2023 08:21-0400 Respiratory rate 16 /min Shelley Lue [facility] 08-16-2023 08:21-0400 Systolic blood pressure 166 mm[Hg] Shelley Lue [facility] Encounters Encounter Date Encounter Type Care Provider Facility Start: 07-12-2024 End: 07-12-2024 ambulatory [facility] Start: 07-04-2024 End: 07-04-2024 ambulatory Ana Spencer Facility[facility] Start: 07-04-2024 End: 07-04-2024 Patient encounter procedure Ana Spencer [facility] Start: 06-27-2024 End: 07-10-2024 Orders Only Jannet Gonzalez MD Work Phone: Cardiology Comment on above: Atrial fibrillation, unspecified type (HCC) (Primary Dx) Start: 2024 End: 2024 ambulatory Ursula Love Facility:[facility] Start: 06-06-2024 End: 06-06-2024 ambulatory Ana Spencer Facility:[facility] Start: 06-06-2024 End: 06-06-2024 Patient encounter procedure Ana Spencer [facility] Start: 05-09-2024 End: 05-09-2024 ambulatory Ana Spencer Facility:[facility] Start: 05-09-2024 End: 05-09-2024 Patient encounter procedure Ana Spencer [facility] Start: 04-24-2024 End: 05-08-2024 ambulatory Ursula Love [facility] Start: 04-11-2024 End: 04-11-2024 ambulatory Ana Spencer Facility:[facility] Start: 04-11-2024 End: 04-11-2024 Patient encounter procedure Ana Spencer [facility] Start: 03-26-2024 End: 03-26-2024 ambulatory Ursula Love Facility:[facility] Start: 03-22-2024 End: 04-09-2024 ambulatory Ursula Love [facility] Start: 03-14-2024 End: 03-14-2024 ambulatory Ana Spencer Facility:[facility] Start: 03-14-2024 End: 03-14-2024 Patient encounter procedure Ana Spencer [facility] Start: 03-12-2024 End: 03-12-2024 ambulatory Ana Spencer Facility:[facility] Start: 03-12-2024 End: 03-12-2024 Patient encounter procedure Ana Spencer [facility] Start: 02-15-2024 End: 02-15-2024 ambulatory Ana Spencer Facility:[facility] Start: 02-15-2024 End: 02-15-2024 Patient encounter procedure Ana Spencer [facility] Start: 02-08-2024 End: 02-08-2024 ambulatory Ana Spencer Facility:[facility] Start: 02-08-2024 End: 02-08-2024 Patient encounter procedure Ana Spencer [facility] Start: 02-01-2024 End: 02-01-2024 ambulatory Ana Spencer Facility:[facility] Start: 02-01-2024 End: 02-01-2024 Patient encounter procedure Ana Spencer [facility] Start: 01-25-2024 End: 02-07-2024 ambulatory Ursula Love Facility:[facility] Start: 01-25-2024 End: 01-25-2024 Patient encounter procedure Ana Spencer [facility] Start: 01-16-2024 End: 01-16-2024 ambulatory Bharathjose david Melton Facility:[facility] Start: 01-16-2024 End: 01-16-2024 Patient encounter procedure Bharathjose david Ahujalulisylwia [facility] Start: 12-29-2023 End: 12-29-2023 ambulatory [facility] Start: 12-28-2023 End: 12-28-2023 ambulatory Ursula Love Facility:[facility] Start: 12-27-2023 End: 12-27-2023 ambulatory Ursula Love Facility:[facility] Start: 12-27-2023 End: 12-27-2023 Patient encounter procedure Ursula Love [facility] Start: 12-19-2023 ambulatory Ursula Love Facility :[id number] Start: 12-18-2023 End: 12-18-2023 Lab Drop off Ursula Love [facility] Start: 12-18-2023 End: 12-18-2023 ambulatory Ursula Love Facility:[facility] Start: 12-18-2023 End: 12-18-2023 ambulatory Ursula Love Facility:[facility] Start: 10-04-2023 End: 10-04-2023 ambulatory Jose Luis R NILL Facility: [place] Start: 10-04-2023 End: 10-04-2023 Patient encounter procedure Jose Luis R NILL [facility] Nill/Said Kof[facility] Start: 09-20-2023 End: 09-20-2023 ambulatory Jose Luis R YONIL Facility:[id number] Start: 08-29-2023 End: 08-29-2023 ambulatory Ursula Love Facility:[facility] Start: 08-16-2023 End: 08-16-2023 ambulatory Shelley Bruce Facility:[facility] Start: 08-16-2023 End: 08-16-2023 Patient encounter procedure Shelley Bruce [facility] Start: 08-08-2023 ambulatory Jose Luis WILLIAM Facility:[facility] Start: 08-07-2023 End: 08-07-2023 ambulatory Ursula Love Facility:[facility] Start: 08-07-2023 End: 08-07-2023 Patient encounter procedure Ursula Love [facility] Start: 08-04-2023 End: 08-04-2023 Lab Drop off Karen L Juan Antonio [facility] Start: 08-04-2023 End: 08-04-2023 ambulatory APN Karen L Juan Antonio Facility:[facility] Start: 08-03-2023 ambulatory Jose Luis NILL Facility:[facility] [place] Start: 07-19-2023 End: 07-19-2023 ambulatory APN Karen L Juan Antonio Facility[facility] Start: 07-04-2023 End: 07-04-2023 ambulatory Ursula Love Facility:[facility] Start: 07-04-2023 End: 07-04-2023 Lab Drop off Ursula Love [facility] Start: 07-03-2023 End: 07-03-2023 Lab Drop off Ursula Love [facility] Start: 07-03-2023 End: 07-03-2023 ambulatory Ursula Love Facility:[facility] Start: 01-04-2023 End: 01-05-2023 ambulatory URSULA LOVE Facility: Start: 04-01-2022 End: 04-01-2022 Off-Site Ursula Love [facility] Start: 03-30-2022 End: 03-30-2022 Off-Site Ursula Love [facility] Start: 02-03-2022 Orders Only Jannet Timmons Work Phone: Cardiology Comment on above: Persistent atrial fi brillation (HCC) (Primary Dx) Procedures Date Procedure Procedure Detail Performing Clinician Start: 09-20-2023 Colonoscopy Jose Luis NI LL Cardiac ablation sys tem (physical object) Shelley Teo Cardiac catheterization Hernandez ael NILL Repair of musculoten dinous cuff of shoulder Jose Luis NILL Rupture of tendon of biceps (disorder) Jose Luis NILL Structure of right s houlder region (body structure) Ursula Love Tonsillectomy Jose Luis NILL Plan of Treatment Date Care Activity Detail Author Start: 12-19-2024 End: 12-19-2024 Patient encounter procedure 12/19/2024 9:15 AM EST Office Visit Cardiology [address] [id number] Jannet Gonzalez MD [address] [place] [address] Paroxysmal atrial fibrillation (HCC) [I48.0] Cardiology Comment on above: Paroxysmal atrial fi brillation (HCC) [I48.0] Start: 12-19-2024 End: 12-19-2024 ambulatory 12/19/2024 8:30 AM EST Results Only Cardiology [address] [id number] Paroxysmal atrial fibrillation (HCC) [I48.0] Cardiology Comment on above: Paroxysmal atrial fi brillation (HCC) [I48.0] Start: 12-17-2024 ambulatory Ambulatory Facility:[facility] Start: 06-16-2024 Covid-19 Vaccine ( season) Covid-19 Vaccine ( season) [facility] Start: 06-16-2024 Influenza vaccination Influenza Vacc ine (#1) [facility] Start: 10-16-2023 Advance Directive Discussion Advance Directive Discussion [facility] Start: 2023 Pneumococcal Vaccine : 65+ (1 of 1 - PCV) Pneumococcal Vaccine: 65+ (1 of 1 - PCV) [facility] Start: 07-04-2020 DIABET[facility]EN [facility] Start: 07-04-2020 Diabetes Screening Diabetes Screenin g [facility] Start: 2018 RSV Vaccine (1 - 1-d ose 60+ series) RSV Vaccine (1 - 1-dose 60+ series) [facility] Start: 2013 PROSTATE CANCER SCREENING DISCUSSION PROSTATE CANCER SCREENING DISCUSSION [facility] Start: 2013 Prostate specific antigen measurement Prostate Cancer Screening Discussion [facility] Start: 2008 SHINGRIX VACCINE (1 of 2) SHINGRIX VACCINE (1 of 2) [facility] Start: 2003 COLOGUARD (FIT-DNA) COLOGUARD (FIT-D NA) [facility] Start: 2003 Colonoscopy COLONOSCOPY [facility] Start: 2003 COLORECTAL CANCER SCREENING COLORECTAL CANCER SCREENING [facility] Start: [address] COLONOGRAPHY [facility] Start: 2003 FECAL OCCULT BLOOD FECAL OCCULT BLOO D [facility] Start: 2003 Screening for malign ant neoplasm of colon [facility] Start: 2003 SIGMOIDOSCOPY SIGMOIDOSCOPY [facility] Start: 1993 Lipid panel Lipid Screening [facility] Start: 1993 LIPID SCREEN LIPID SCREEN [facility] Start: 1977 Urine microalbumin profile [facility] Start: 1976 ANNUAL PCP TEAM IOS PROGRAMMER SARAH DISEASE VISIT ANNUAL PCP TEAM CHRONIC DISEASE VISIT [facility] Start: 1976 Anxiety Screening Anxiety Screening [facility] Start: 1976 BP CONTROLLED (<130/80) BP CONTROLLE D (<130/80) [facility] Start: 1976 Depression Screening Depression Scre ening [facility] Start: 1976 Hepatitis B surface antibody level LDL CHOLESTEROL [facility] Start: 1976 HEPATITIS C SCREENING HEPATITIS C [facility] Start: 1976 Hepatitis C screening Hepatitis C [facility] Start: 1976 HIV SCREENING HIV SCREENING [facility] Start: 1970 Adult depression screening assessment DEPRESSION SCREENING [facility] Start: 1958 Abdominal aortic aneurysm screening Abdominal Aortic Aneurysm Screening [facility] End: 02-03-2023 ECG COMPLETE ECG COMPLETE ECG Routine Persistent atrial fibrillation (HCC) 1 Occurrences starting 02/03/2022 until 02/03/2023 [facility] Work Phone: Comment on above: 1 Occurrences starti ng 02/03/2022 until 02/03/2023 End: 06-27-2025 ECG COMPLETE ECG COMPLETE ECG Routine Atrial fibrillation, unspecified type (HCC) 1 Occurrences starting 06/27/2024 until 06/27/2025 [facility] Work Phone: Comment on above: 1 Occurrences starti ng 06/27/2024 until 06/27/2025 [facility] Immun[facility] Immunization Date Immunization Notes Care Provider Elliot rahman 08-31-2021 SARS-CoV-2 (COVID-19 ) Ad26 vaccine, recombinant Ursula Love [facility] Comment on above: Result Comment: 2021: [id number] 07-23-2021 influenza virus vaccine, unspecified formulation Ursula Love [facility] 12-23-2020 SARS-CoV-2 (COVID-19 ) Ad26 vaccine, recombinant Ursula Love [facility] 07-30-2018 influenza virus vaccine, unspecified formulation Ursula Love [facility] NEGATED: Highlighted row has not occurred!07-03-2023 influenza virus vaccine, unspecified formulation Ursula Love [facility] Payers Date Payer Category Payer Private Health Insurance [facility] AARP SUPPLEMENT [id number] 2023-Present [phone] [address] [place] [address] Indemnity [id number] 2023 Medicare MEDICARE MEDICAR E A AND B [id number] 2023-Present [phone] [place] [address] Medicare [id number] 2023 Medicare [id number] 2023 Unknown [id number] 2021 Unknown ANTHEM BLUE ACCE SS PPO [id number] 2021-Present [phone] [address] [place] [address] O [id number]. [id number] 1959 Unknown [id number] 1960 Unknown [id number] 2.16.840.1.446649.3.579.2. 593 1958 Unknown [id number] 2.16.840.1.848411.3.579.2. 593 1958 Unknown [id number] 2.16.840.1.951527.3.579.2. 727 1958 Unknown [id number] 2.16.840.1.465032.3.579.2. 727 1958 Unknown [id number] 2.16.840.1.262375.3.579.2. 727 1958 Unknown [id number] 2.16.840.1.596115.3.579.2. 727 1958 Unknown [id number] 2.16.840.1.421114.3.579.2. 727 1958 Unknown [id number] 2.16.840.1.706163.3.579.2. 727 1958 Unknown [id number] 2.16.840.1.733623.3.579.2. 727 1958 Unknown [id number] 2.16.840.1.098866.3.579.2. 727 1958 Unknown [id number] 2.16.840.1.652873.3.579.2. 727 1958 Unknown [id number] 2.16.840.1.187731.3.579.2. 727 1958 Unknown [id number] 2.16.840.1.026388.3.579.2. 727 1958 Unknown [id number] 2.16.840.1.051615.3.579.2. 727 1958 Unknown [id number] 2.16.840.1.720671.3.579.2. 727 1958 Unknown [id number] 2.16.840.1.902132.3.579.2. 72 1958 Unknown [id number] 2.16.840.1.141804.3.579.2. 72 1958 Unknown [id number] 2.16.840.1.800297.3.579.2. 72 1958 Unknown [id number] 2.16.840.1.086461.3.579.2. 1958 Unknown [id number] 2.16.840.1.690052.3.579.2. 1958 Unknown [id number] 2.16.840.1.830271.3.579.2. 1958 Unknown [id number] 2.16.840.1.690712.3.579.2. 72 1958 Unknown [id number] 2.16.840.1.278545.3.579.2. 1958 Unknown [id number] 2.16.840.1.034590.3.579.2. 72 1958 Unknown [id number] 2.16.840.1.883075.3.579.2. 72 1958 Unknown [id number] 2.16.840.1.079366.3.579.2. 72 1958 Unknown [id number] 2.16.840.1.918278.3.579.2. 1958 Unknown [id number] 2.16.840.1.311992.3.579.2. 72 1958 Unknown [id number] 2.16.840.1.348752.3.579.2. 1958 Unknown [id number] 2.16.840.1.549567.3.579.2. 727 1958 Unknown [id number] 2.16.840.1.916281.3.579.2. 727 1958 Unknown [id number] 2.16.840.1.549036.3.579.2. 727 1958 Unknown [id number] 2.16.840.1.641264.3.579.2. 727 1958 Unknown [id number] 2.16.840.1.707006.3.579.2. 72 1958 Unknown [id number] 2.16.840.1.636219.3.579.2. 727 1960 Unknown [id number] 2.16.840.1.381726.3.579.2. 727 Social History Date Type Detail Facility Start: 08-25-2014 End: 03-26-2024 Tobacco smoking status NHIS Ex-smoker [facility] Comment on above: Quit in 2013 after M I quit age 53 (39 pack years) Start: 10-25-1957 End: 08-09-2014 History of tobacco use Current smoker [facility] Start: 10-25-1955 End: 08-09-2014 History of tobacco use Cigarette Smoker [facility] Start: 08-25-2014 End: 09-23-2020 Cigarettes smoked current (pack per day) - Reported 0.5 [facility] Start: 08-25-2014 Tobacco use and exposure Smokeless tobacco non-user [facility] Start: 02-03-2022 Alcohol intake Current drinke r of alcohol (finding) [facility] Start: 1960 Sex Assigned At Not on file [facility] Start: 01-24-2022 End: 02-03-2022 Exposure to SARS-CoV-2 (event) Not sure [facility] Tobacco smoking status No Smokin g Status Entered [facility] Start: 09-23-2020 End: 02-03-2022 Sex Assigned At Male [facility] Start: 04-01-2022 Tobacco smoking status Never s moked tobacco (finding) [facility] Tobacco smoking status Never [facility] Comment on above: Quit in [...] 08-16-2023 Functional Status N/A [facility] 04-01-2022 Functional Status Telehealth Patient Oral [facility] Clinical Notes 02-03-2022 to 07-12-2024 RadiologyRadiologyRadiologyRadiologyRadiologyRadiologyLaboratoryRadiologyLaborat oryRadiologyLaboratoryRadiologyLaboratoryRadiologyRadiologyLaboratoryRadiologyLa boratoryRadiologyLaboratoryRadiology Note Date & Type Note Facility 07-12-2024 Note [facility] Subjective Marcelle Deutsch is a 64 y.o. year old [...] Types: Cigarettes Quit date: 2013 Years since quittin.7 Smokeless tobacco: Never Substance Use Topics Alcohol use: Yes Comment: occasional HPI He is a 64 yo man with prior history of: 1. CAD s/p cardiac cath in 2013 in the setting of an abnormal stress test that showed SEDIMENTATIONIST of the RCA with filling via left to right collaterals. He also had a 70% stenosis in a diagonal branch (the prior report mentions that it is not amenable to intervention). At that time left-ventricular gram showed normal left ventricular ejection fraction at 60%. 2. Paroxysmal atrial fibrillation, status post ablation in 2017 at the [facility]. He also had prior cardioversion. He is [...] and time. Psychiat (more content not included)... [facility] 01-25-2024 Hospital Discharge instructions Follow Up Care 01/25/2024 12:17:38 With:Tj BURTON, Ana Rivas, ONC Address: [address] [phone] When: Unknown Comments:cbc, cmp, iron studies in 3mo and 6mofollow-up in 6mo with ACTIMIZE ARCHITECT [facility] 12-29-2023 Note LDL > 70 therefore c ontinue lipitor 80 mg and will add zetia 10 mg daily Repeat lipid level before next appt in about 3-6 months [facility] 12-29-2023 Note Hypertension is typi jimmie stable with review of his home b/p log. Definitely has white coat syndrome Continue norvasc, clonidine, lisinopril and toprol [facility] 12-29-2023 Note Coronary artery dise ase is stable Continue GDMT- ASA, lipitor, imdur, toprol, and ranexa continue risk factor modifications- heart healthy diet, regular exercise as tolerated and continue all medications. [facility] 12-29-2023 Note Rate stable with top rol Anticoagulation with eliquis and denied any bleeding tendencies. [facility] 12-29-2023 Note Order ABD Aorta US i n 6 months to re-evalulate infrarenal AAA. [facility] 12-29-2023 Hospital Discharge instructions Follow Up Care 12/29/2023 11:16:26 With:Tj BURTON, Ana Rivas, ONC Address: [address] [address] [phone] When: Unknown Comments:IV Injectafer x2B12 injections weekly x4, then monthlycbc, cmp, iron studies in 8wksfollow-up in 8wks with ACTIMIZE ARCHITECT [facility] 12-29-2023 Note [facility] CARDI[facility] PROGR ESS NOTE [...] of an abnormal stress test that showed SEDIMENTATIONIST of the RCA with filling via left to right collaterals. He also had a 70% stenosis in a diagonal branch (the prior report mentions that it is not amenable to intervention). At that time left-ventricular gram showed normal left ventricular ejection fraction at 60%. 2. Paroxysmal atrial fibrillation, status post ablation in 2017 at the [facility]. He also had prior cardioversion. He is [...] episodes of atrial fibrillation. He has a [employer] machine that he uses to transmit ECG. [...] 2 seconds. Neurol (more content not included)... [facility] 12-29-2023 Note Patient here for 6 [...] All other systems reviewed and are negative. [facility] 12-29-2023 Note HTN management with goal b/p < 130/80 Monitor b/p at home Routine monitoring- will repeat Echocardiogram in 6 months with f/u with Dr Gore. D/W pt that he is to call 911 for sharp, tearing chest pain or back pain, call office for b/p consistently > 130/80 and he voiced understanding [facility] 08-29-2023 Note Chief Complaint consultation for [...] 28.0-28.9,adult BPH (benign prostatic hyperplasia) CAD in [place] artery Controlled type 2 diabetes mellitus without [...] mg= 2 tab(s (more content not included)... [facility] Comment on above: Result Comment: Elec tronically Signed By: WILLIAM NIELSON, Jose Luis Boyd\neptali\Date and Time Signed: 08/29/23 15:00 EST 08-16-2023 [...] include: ?8 oz (237 mL) of milk, vqtbmom-pfdysoucebaf-rboix milk, and calcium-fortifiedfruit juice. Calcium-fortified means that [...] ?Spinach (cooked), rhubarb, beets, sweet potatoes, and Syrian chard. ?Peanuts. ?Potato chips, faroese fries, and baked potatoes with skin on. ?Nuts and nut products. ?Chocolate. If you regularly take a diuretic medicine, make sure to eat at least 1 or 2 servings of fruits or vegetables that are high in potassium each day. These include: ?Avocado. ?Banana. ?Licking, prune, carrot, or tomato juice. ?Baked potato. [...] magnesium, fish oil, or vitamin B6. Take qeof-wrz-iswbjiy and prescription medicines only as told by [...] Casseroles. Pizza. Lasagna. Frozen meals. Potato chips. Bengali fries. The items listed above may not [...] provider. Document Revised: 06/13/2022 Document Reviewed: 06/13/2022 [employer] Patient Education 2022 [employer]. Follow Up Care 08/08/2023 13:37:21 With:Teo NIELSON, Shelley Sidhu, URL, URO Address: When: Unknown Comments:LANDRY [facility] 01-04-2023 Note CARDIAC STRESS TEST Requesting [...] and reported myocardial perfusion scan findings. [facility] 04-01-2022 Hospital Discharge instructions Patient [...] quitting, ask your health care provider. Take qqfv-sko-lvhxgds and prescription medicines only as told by [...] 10/07/2014 Document Revised: 05/27/2019 Document Reviewed: 05/03/2019 [employer] Patient Education 2020 [employer]. 04/01/2022 13:38:40 Hyperglycemia Hyperglycemia Hyperglycemia occurs when [...] or polycystic ovarian syndrome (PCOS). Being of [place], /, or / descent. What are the [...] these instructions at home: General instructions Take dzrr-hky-wkzukbc and prescription medicines only as told by [...] 03/28/2002 Document Revised: 06/19/2017 Document Reviewed: 06/19/2017 [employer] Patient Education 2020 [employer]. 04/01/2022 13:38:33 Atrial Fibrillation Atrial Fibrillation Atrial [...] may be diagnosed with: Electrocardiogram (ECG). Ambulatory front desk monitor. This device records your heartbeats for [...] 10/02/2006 Document Revised: 11/22/2018 Document Reviewed: 11/23/2018 [employer] Patient Education 2020 [employer]. 04/01/2022 13:38:29 Pinched Nerve Pinched Nerve A [...] work. Follow these instructions at home: Take qims-wyj-rcafawb and prescription medicines only as told by [...] leg, or the back or neck. Take hxrl-gtz-fdzhclg and prescription medicines only as told by [...] 09/22/2003 Document Revised: 10/19/2018 Document Reviewed: 10/16/2018 [employer] Patient Education 2020 [employer] [facility] 02-03-2022 Note HNO ID: [id number] Author: Jannet Gonzalez MD Service: ? Author Type: Physician Type: Progress Notes Filed: 02/03/2022 9:58 AM Note Text: [facility] Department of Cardiovascular Medicine SECTION OF CARDIAC PACING and ELECTROPHYSIOLOGY OUTPATIENT VISIT DATE February 03, 2022 OUTPATIENT VISIT TYPE CONSULTATION PRIMARY CARE PHYSICIAN: Mark Browning, [address] [place] [address] CHIEF COMPLAINT: PAF HISTORY OF PRESENT ILLNESS [...] he is in SR. He denies syncope. [id number] 3 (HTN, CAD, DM) tolerating Xarelto PAST MEDICAL HISTORY Diagnosis Date - Atrial fibrillation (HCC) 2013 - CAD (coronary artery disease) 09/02/2014 - Diabetes mellitus (HCC) - Dyslipidemia - Hypertension - Metabolic syndrome PAST SURGICAL HISTORY Procedure Laterality Date - AFIB PVI W/COMPL EP STUDY 07/10/2017 - CARDIAC CATH 09/02/2014 SEDIMENTATIONIST of proximal RCA. 70% ostial D1. Preserved [...] patient General: L (more content not included)... [facility] Evaluation + Plan note No data available for this section [facility] [place] Evaluation + Plan note Future Appointments Appointment Date:01/03/2024 08:00:00 AM Scheduled Provider: Location:[facility] Appointment Type:FM Medicare Wellness Welcome Appointment Date:01/03/2024 08:40:00 AM Scheduled Provider:Ursula Love MD Location:[facility] Appointment Type: Open Diagnostic Tests PendingPSA Free & Total 07/03/23Microalbumin Level Urine 07/03/23U Protein/Creat Ratio 07/03/23 [facility] Evaluation + Plan note Future Appointments Appointment Date:01/03/2024 08:00:00 AM Scheduled Provider: Location:[facility] Appointment Type:FM Medicare Wellness Welcome Appointment Date:01/03/2024 08:40:00 AM Scheduled Provider:Ursula Love MD Location:[facility] Appointment Type: Open [facility] Evaluation + Plan note Future Appointments Appointment Date:08/29/2023 02:20:00 PM Scheduled Provider:Jose Luis THOMAS MD [facility]: Appointment Date:01/03/2024 08:00:00 AM Scheduled Provider: Location:[facility] Appointment Type:FM Medicare Well[facility] Appoint[facility] Date:01/03/2024 08:40:00 AM Scheduled Provider:Ursula Love MD Location:[facility] Appointment Type:FM Open Diagnostic Tests PendingUrine Culture 08/04/23 Future Scheduled TestsCT Abdomen/Pelvis w/o Contrast 08/02/23 [facility] Evaluation + Plan note Future Appointments Appointment Date:08/29/2023 02:20:00 PM Scheduled Provider:Jose Luis THOMAS MD Location:[facility] Appointment Type:[facility] Appointment Date:01/03/2024 08:00:00 AM Scheduled Provider: Location:[facility] Appointment Type: Medicare Wellness Welcome Appointment Date:01/03/2024 08:40:00 AM Scheduled Provider:Ursula Love MD Location:[facility] Appointment Type: Open [facility] Evaluation + Plan note Future Appointments Appointment Date:08/29/2023 02:20:00 PM Scheduled Provider:Jose Luis THOMAS MD Location:[facility] Appointment Type:[facility] Appointment Date:01/03/2024 08:00:00 AM Scheduled Provider: Location:[facility] Appointment Type: Medicare Wellness Welcome Appointment Date:01/03/2024 08:40:00 AM Scheduled Provider:Ursula Love MD Location:[facility] Appointment Type: Open Future Scheduled TestsUS Aorta 08/08/24 [facility] Evaluation + Plan note Future Appointments Appointment Date:01/03/2024 08:00:00 AM Scheduled Provider: Location:[facility] Appointment Type:FM Medicare Wellness Welcome Appointment Date:01/03/2024 08:40:00 AM Scheduled Provider:Ursula Love MD Location:[facility] Appointment Type: Open Future Scheduled TestsUS Aorta 08/08/24 [facility] [place] Evaluation + Plan note Future Appointments Appointment Date:12/17/2024 08:00:00 AM Scheduled Provider: Location:[facility] Appointment Type:FM Medicare Wellness Subsequent Diagnostic Tests PendingHCV Antibody RFX to Quant PCR 12/18/23 Future Scheduled TestsCT Chest, Low Dose Screening 12/18/23US Aorta 08/08/24 [facility] Evaluation + Plan note Future Appointments Appointment Date:03/25/2024 10:45:00 AM Scheduled Provider:Ursula Love MD Location:[facility] Appointment Type: Open Appointment Date:12/17/2024 08:00:00 AM Scheduled Provider: Location:[facility] Appointment Type: Medicare Wellness Subsequent Future Scheduled TestsUS Aorta 08/08/24 [facility] Evaluation + Plan note Future Appointments Appointment Date:01/25/2024 09:00:00 AM Scheduled Provider:Ana Kumar Location[facility] Appointment Type:ONC Office Visit New 45 (FT) Appointment Date:03/25/2024 10:45:00 AM Scheduled Provider:Ursula Love MD Location:[facility] Appointment Type: Open Appointment Date:12/17/2024 08:00:00 AM Scheduled Provider: Location:[facility] Appointment Type:FM Medicare Wellness Subsequent Diagnostic Tests PendingImmunofixation Serum 01/16/24Free K+L Lt Chains,Qn,S 01/16/24Protein Electrophoresis 01/16/24 Future Scheduled TestsUS Aorta 08/08/24 [facility] Evaluation + Plan note Future Appointments Appointment [...] 10:45:00 AM Scheduled Provider:Ursula Love MD Location:[facility] Appointment Type: Open Appointment Date:12/17/2024 08:00:00 AM Scheduled Provider: Location:[facility] Appointment Type:FM Medicare Wellness Subsequent Future Scheduled TestsCBC w/ Auto Diff 03/21/24Comprehensive Metabolic Panel 03/21/24Ferritin 03/21/24Iron Level 03/21/24Iron Percent Saturation 03/21/24Transferrin 03/21/24US Aorta 08/08/24 [facility] Evaluation + Plan note Future Appointments Appointment [...] 10:45:00 AM Scheduled Provider:Ursula Love MD Location:[facility] Appointment Type:FM Open Appointment Date:04/11/2024 02:00:00 [...] (FT) Appointment Date:12/17/2024 08:00:00 AM Scheduled Provider: Location:[facility] Appointment Type: Medicare Wellness Subsequent Appointment Date:12/19/2024 02:15:00 PM Scheduled Provider: Location:[facility] Appointment Type:ONC Injection (FT) Appointment Date:01/16/2025 02:05:00 PM Scheduled Provider: Location:[facility] Appointment Type:ONC Injection (FT) Appointment Date:02/13/2025 02:15:00 PM Scheduled Provider: Location:[facility] Appointment Type:ONC Injection (FT) Appointment Date:03/13/2025 02:15:00 PM Scheduled Provider: Location:[facility] Appointment Type:ONC Injection (FT) Future Scheduled TestsCBC w/ Auto Diff 03/21/24Comprehensive Metabolic Panel 03/21/24Ferritin 03/21/24Iron Level 03/21/24Iron Percent Saturation 03/21/24Transferrin 03/21/24US Aorta 08/08/24 [facility] Evaluation + Plan note Future Appointments Appointment Date:02/15/2024 01:00:00 PM Scheduled Provider: Location:[facility] Appointment Type:ONC Injectafer (FT) Appointment Date:02/15/2024 02:00:00 PM Scheduled Provider: Location[facility] Appointment Type:ONC Injection (FT) Appointment Date:03/14/2024 10:15:00 AM Scheduled Provider:Ana Kumar Location[facility] Appointment Type:ONC Office Visit 30 (FT) Appointment Date:03/14/2024 10:45:00 AM Scheduled Provider: Location[facility] Appointment Type:ONC Injection (FT) Appointment Date:03/25/2024 10:45:00 AM Scheduled Provider:Ursula Love MD Location:[facility] Appointment Type:FM Open Appointment Date:04/11/2024 02:00:00 [...] (FT) Appointment Date:12/17/2024 08:00:00 AM Scheduled Provider: Location:[facility] Appointment Type: Medicare Wellness Subsequent Appointment [...] 03/21/24Iron Percent Saturation 03/21/24Transferrin 03/21/24US Aorta 08/08/24 [facility] Evaluation + Plan note Future Appointments Appointment Date:03/14/2024 10:15:00 AM Scheduled Provider:Ana Kumar Location[facility] Appointment Type:ONC Office Visit 30 (FT) Appointment Date:03/14/2024 10:45:00 AM Scheduled Provider: Location[facility] Appointment Type:ONC Injection (FT) Appointment Date:03/25/2024 10:45:00 AM Scheduled Provider:Ursula Love MD Location:[facility] Appointment Type: Open Appointment Date:04/11/2024 02:00:00 [...] (FT) Appointment Date:12/17/2024 08:00:00 AM Scheduled Provider: Location:[facility] Appointment Type: Medicare Wellness Subsequent Appointment [...] 03/11/24Iron Percent Saturation 03/11/24Transferrin 03/11/24US Aorta 08/08/24 [facility] Evaluation + Plan note Future Appointments Appointment Date:03/14/2024 10:15:00 AM Scheduled Provider:Ana Kumar Location[facility] Appointment Type:ONC Office Visit 30 (FT) Appointment Date:03/14/2024 10:45:00 AM Scheduled Provider: Location[facility] Appointment Type:ONC Injection (FT) Appointment Date:03/26/2024 10:45:00 AM Scheduled Provider:Ursula Love MD Location:[facility] Appointment Type:FM Open Appointment Date:04/11/2024 02:00:00 [...] (FT) Appointment Date:12/17/2024 08:00:00 AM Scheduled Provider: Location:[facility] Appointment Type: Medicare Wellness Subsequent Appointment Date:12/19/2024 02:15:00 PM Scheduled Provider: Location:[facility] Appointment Type:ONC Injection (FT) Appointment Date:01/16/2025 02:05:00 PM Scheduled Provider: Location:[facility] Appointment Type:ONC Injection (FT) Appointment Date:02/13/2025 02:15:00 PM Scheduled Provider: Location:[facility] Appointment Type:ONC Injection (FT) Appointment Date:03/13/2025 02:15:00 PM Scheduled Provider: Location:[facility] Appointment Type:ONC Injection (FT) [facility] 08[facility]24 [facility] Evaluation + Plan note Future Appointments Appointment Date:03/26/2024 10:45:00 AM Scheduled Provider:Ursula Love MD Location:[facility] Appointment Type: Open Appointment Date:04/11/2024 02:00:00 [...] (FT) Appointment Date:12/17/2024 08:00:00 AM Scheduled Provider: Location:[facility] Appointment Type: Medicare Wellness Subsequent Appointment Date:12/19/2024 02:15:00 PM Scheduled Provider: Location:[facility] Appointment Type:ONC Injection (FT) Appointment Date:01/16/2025 02:05:00 PM Scheduled Provider: Location:[facility] Appointment Type:ONC Injection (FT) Appointment Date:02/13/2025 02:15:00 PM Scheduled Provider: Location:[facility] Appointment Type:ONC Injection (FT) Appointment Date:03/13/2025 02:15:00 PM Scheduled Provider: Location:[facility] Appointment Type:ONC Injection (FT) Future Scheduled TestsCBC w/ Auto Diff 06/07/24CBC w/ Auto Diff 09/07/24Comprehensive Metabolic Panel 06/07/24Comprehensive Metabolic Panel 09/07/24Ferritin 06/07/24Ferritin 09/07/24Iron Level 06/07/24Iron Level 09/07/24Iron Percent Saturation 06/07/24Iron Percent Saturation 09/07/24Transferrin 06/07/24Transferrin 09/07/24US Aorta 08/08/24 [facility] Evaluation + Plan note Future Appointments Appointment Date:05/09/2024 02:00:00 PM Scheduled Provider: Location:[facility] Appointment Type:ONC Injection (FT) Appointment Date:06/06/2024 02:00:00 PM Scheduled Provider: Location:[facility] Appointment Type:ONC Injection (FT) Appointment Date:07/04/2024 02:00:00 PM Scheduled Provider: Location[facility] Appointment Type:ONC Injection (FT) Appointment Date:08/01/2024 02:00:00 PM Scheduled Provider: Location:[facility] Appointment Type:ONC Injection (FT) Appointment Date:08/29/2024 02:00:00 PM Scheduled Provider: Location:[facility] Appointment Type:ONC Injection (FT) Appointment Date:09/09/2024 11:00:00 AM Scheduled Provider:Ana Kumar Location:[facility] Appointment Type:ONC Office Visit 30 (FT) Appointment Date:09/26/2024 02:00:00 PM Scheduled Provider: Location[facility] Appointment Type:ONC Injection (FT) Appointment Date:10/24/2024 02:15:00 PM Scheduled Provider: Location:[facility] Appointment Type:ONC Injection (FT) Appointment Date:11/21/2024 02:15:00 PM Scheduled Provider: Location:[facility] Appointment Type:ONC Injection (FT) Appointment Date:12/17/2024 08:00:00 AM Scheduled Provider: Location:[facility] Appointment Type:FM Medicare Wellness Subsequent Appointment Date:12/19/2024 02:15:00 PM Scheduled Provider: Location:[facility] Appointment Type:ONC Injection (FT) Appointment Date:01/16/2025 02:05:00 PM Scheduled Provider: Location:[facility] Appointment Type:ONC Injection (FT) Appointment Date:02/13/2025 02:15:00 PM Scheduled Provider: Location:[facility] Appointment Type:ONC Injection (FT) Appointment Date:03/13/2025 02:15:00 PM Scheduled Provider: Location:[facility] Appointment Type:ONC Injection (FT) Future Scheduled TestsCBC w/ Auto Diff 06/07/24CBC w/ Auto Diff 09/07/24Comprehensive Metabolic Panel 06/07/24Comprehensive Metabolic Panel 09/07/24Ferritin 06/07/24Ferritin 09/07/24Iron Level 06/07/24Iron Level 09/07/24Iron Percent Saturation 06/07/24Iron Percent Saturation 09/07/24Transferrin 06/07/24Transferrin 09/07/24US Aorta 08/08/24 [facility] Evaluation + Plan note Future Appointments Appointment Date:06/06/2024 02:00:00 PM Scheduled Provider: Location[facility] Appointment Type:ONC Injection (FT) Appointment Date:07/04/2024 02:00:00 PM Scheduled Provider: Location:[facility] Appointment Type:ONC Injection (FT) Appointment Date:08/01/2024 02:00:00 [...] (FT) Appointment Date:12/17/2024 08:00:00 AM Scheduled Provider: Location:[facility] Appointment Type:FM Medicare Wellness Subsequent Appointment [...] Percent Saturation 09/07/24Transferrin 06/07/24Transferrin 09/07/24US Aorta 08/08/24 [facility] Evaluation + Plan note Future Appointments Appointment [...] (FT) Appointment Date:12/17/2024 08:00:00 AM Scheduled Provider: Location:[facility] Appointment Type:FM Medicare Wellness Subsequent Appointment [...] Percent Saturation 09/07/24Transferrin 06/07/24Transferrin 09/07/24US Aorta 08/08/24 [facility] Evaluation + Plan note Future Appointments Appointment Date:08/01/2024 02:00:00 PM Scheduled Provider: Location:[facility] Appointment Type:ONC Injection (FT) Appointment Date:08/29/2024 02:00:00 PM Scheduled Provider: Location:[facility] Appointment Type:ONC Injection (FT) Appointment Date:09/09/2024 11:00:00 AM Scheduled Provider:Ana Kumar Location[facility] Appointment Type:ONC Office Visit 30 (FT) Appointment Date:09/26/2024 02:00:00 PM Scheduled Provider: Location:[facility] Appointment Type:ONC Injection (FT) Appointment Date:10/24/2024 02:15:00 PM Scheduled Provider: Location[facility] Appointment Type:ONC Injection (FT) Appointment Date:11/21/2024 02:15:00 PM Scheduled Provider: Location:[facility] Appointment Type:ONC Injection (FT) Appointment Date:12/17/2024 08:00:00 AM Scheduled Provider: Location:[facility] Appointment Type:FM Medicare Wellness Subsequent Appointment [...] Percent Saturation 09/07/24Transferrin 06/07/24Transferrin 09/07/24US Aorta 08/08/24 [facility] Evaluation note Diagnosis Persistent atrial fibrillation (HCC)- Primary [facility]rial [facility] Atrial [facility], unspecified type (HCC)- [facility] No data available for this section [facility] [place] Progress note No data available for this section [facility] [place] Reason for referral (narrative)* Outpatient Procedure (Routine) - Authorized Specialty Diagnoses / Procedures Referred By Contac t Referred To Contact [facility] Diagnoses Persistent atrial fibrillation (HCC) Procedures ECG COMPLETE ECG ROUTINE ECG W/LEAST 12 LDS W/I&[place] [address] [place] [id number] [address] Referral ID Status Reason Start Date Expiration Date Visits Requested Visits Authorized [id number] Authorized Auto-Generat ed Referral 02/03/2022 02/03/2023 1 1 [facility] for referral (narrative)* Outpatient Procedure (Routine) - Authorized Specialty Diagnoses / Procedures Referred By Contac t Referred To Contact [facility] Diagnoses Atrial fibrillation, unspecified type (HCC) Procedures ECG COMPLETE ECG ROUTINE ECG W/LEAST 12 LDS W/I&R Jannet Gonzalez MD [address] [place] [address] [place] [address] Referral ID Status Reason Start Date Expiration Date Visits Requested Visits Authorized [id number] Authorized Auto-Generat ed Referral 06/27/2024 06/27/2025 1 1 [facility] Summary Purpose Family History No Family History [...] FoundDocuments on File Type Date Recorded 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 Advance Directive(s) 07/10/2017 5:38 AM [...] section and content) DATE CREATED AUTHOR 10/08/2020 [facility] DATE CREATED AUTHOR AUTHOR'S ORGANIZ ATION 02/05/2022 [facility] DATE CREATED AUTHOR AUTHOR'S ORGANIZ ATION 01/17/2023 [facility] DATE CREATED AUTHOR AUTHOR'S ORGANIZ ATION 03/12/2024 [facility] DATE CREATED AUTHOR AUTHOR'S ORGANIZ ATION 03/13/2024 [facility] DATE CREATED AUTHOR AUTHOR'S ORGANIZ ATION 06/30/2024 [facility] DATE CREATED AUTHOR AUTHOR'S ORGANIZ ATION 07/12/2024 [facility] DATE CREATED AUTHOR AUTHOR'S ORGANIZ ATION 07/19/2024 [facility] Source Comments (unrecognize d section and content) In the event this informatio n is protected by the Federal Confidentiality of Alcohol and Drug Abuse Patient Records regulations: The Federal rules restrict any use of the information to criminally investigate or prosecute any alcohol or drug abuse patient.[facility] the event this information is protected by the Federal Confidentiality of Alcohol and Drug Abuse Patient Records regulations: The Federal rules restrict any use of the information to criminally investigate or prosecute any alcohol or drug abuse patient.[facility] Care Teams (unrecognized sec tion and content) [facility] Relationship Specialty Start Date End Date Mark Browning PCP - General Family Practice 08/11/14 Jannet Gonzalez MD [address] [place] [address] Primary Staff Physician Cardiology 02/03/22 [facility] Relationship Specialty Start Date End Date Mark [...] BE BASED ON THE PRIMARY CLINICAL RECORDS. [facility] [employer] [facility]. provides no warranty or guarantee of the accuracy or completeness of information in this document.
--- NOTE | 2024-07-26 07:38 | MR_ITS ---
[place] [id number] Patient Name: MARCELLE DEUTSCH MRN: [id number] date: 1960 Sex: M Assigned Patient Location: MRI Current Patient Location: Accession/Order Number: [id number] Exam Date: 07/26/2024 07:51 Report Date: 07/28/2024 05:40 At the request of: BRICE LEO Procedure: MR lumbar spine wo con EXAMINATION: MR lumbar spine wo con HISTORY: Spinal Stenosis, Lumbar Spondylosis COMPARISON: No relevant comparison available. TECHNIQUE: A variety of imaging planes and parameters were utilized for visualization of suspected pathology. FINDINGS: For the purposes of numbering, sagittal T2 image # 8 extends from the T12 vertebral body superiorly to the S3 level inferiorly. PARASPINAL AREA: Aneurysmal dilation of distal abdominal aorta, 4.2 x 3.1 cm extending into left common iliac artery. BONES: No fracture, pars defect, or osseous lesion. CORD/CAUDA EQUINA: Normal caliber, contour, and signal intensity. DISC LEVELS: 12-L1: No significant disc/facet abnormality, spinal stenosis, or foraminal stenosis. L1-L2: Early degenerative disc disease is present without focal protrusion or neural impingement. L2-L3: Early degenerative disc disease is present without focal protrusion or neural impingement. L3-L4: Mild diffuse disc bulging without significant loss of disc height. Minimal central canal and foraminal narrowing. L4-L5: Early DJD. Mild degenerative facet arthropathy. L5-S1: Moderate right, mild left foramen narrowing. Mild diffuse disc bulging without disc height reduction or significant disc desiccation. Mild degenerative facet arthropathy. MR/MR lumbar spine wo con IMPRESSION: 1. Mild degenerative changes. No specific findings to account for patient's symptoms. Electronically authenticated by: JEN FINCH Date: 07/28/2024 05:40
== END 2024-07-26 07:32 | disposition home or self-care (01) ==
LOC: MRI 07:31
PROVIDERS: PCP Family Medicine; Visit Provider Nurse Practitioner
DX: M47.816 Spondylosis without myelopathy or radiculopathy, lumbar region (principal); M48.062 Spinal stenosis, lumbar region with neurogenic claudication
CPT/HCPCS: 72148

== ENCOUNTER 2024-07-29 08:52 | Day surgery (SDC) | payer MEDICARE, SELFPAY ==
--- OUTSIDE RECORDS SUMMARY | 2024-07-29 09:06 | XMS_ITS | CCD ---
Author Organization [facility] Care Team Providers Care Inspector Purchased Parts Name Role Phone Mark Browning Primary Care Provider [phone] Jannet Gonzalez MD Unavailable Ursula Love Primary Care Physician URSULA LOVE Admitting Unavailable URSULA LOVE Attending Unavailable URSULA LOVE Primary Care Unavailable URSULA LOVE Consulting Unavailable BAO, DR MOSCOSO Admitting Unavailable BAO, DR MOSCOSO Attending Unavailable URSULA LOVE Primary Care Unavailable WYNNE, DR JANNET Parry Consulting Unavailable BAO, DR [...] Unavailable Ana Spencer Admitting Unavailable Juan Antonio, RETAIL LOSS PREVENTION INVESTIGATORCarlo Richard Attending Unavailable Ursula Love Attending Unavailable [...] Ross, Ursula E. Attending Unavailable Juan Antonio, RETAIL LOSS PREVENTION INVESTIGATOR Karen L Attending Unavailable Ross, Ursula E. Attending Unavailable Ross, Ursula E. Admitting Unavailable Juan Antonio, RETAIL LOSS PREVENTION INVESTIGATOR Karen L Attending Unavailable Juan Antonio, RETAIL LOSS PREVENTION INVESTIGATOR Karen L Admitting Unavailable Demboske, Ana Rivas [...] reactions to drug 4 Hayder Dobson (disorder) [facility] (1 source) Penicillins Drug allergy (disorder) 4 [facility] (1 source) Penicillins Propensity to adverse reactions to drug 4 [facility] (2 sources) No Known Medication Allergies; 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: [No Known Medication Allergies] Propensity to adverse reactions (disorder) [facility] Repository Medications Current Medications Medication Drug [...] day(s), # 90 tab(s), Refills(s) 0, Pharmacy: [facility]/pharmacy #[id number] Start Date: 04/01/22 Stop Date: [...] DAILY, # 90 tab(s), Refills(s) 1, Pharmacy: [facility]/pharmacy #[id number], 179, cm, 03/26/24 10:53:00 EDT, Height/Length Dosing, 86, kg, 03/26/24 10:53:00 EDT, Weight Dosing Start Date: 03/26/24 Status: Ordered Start: 07-06-2023 lisinopril 20 mg Tab See Instructions, TAKE 1 TABLET DAILY, # 90 tab(s), Refills(s) 1, Pharmacy: [facility], 178, cm, 12/18/23 13:19:00 EST, Height/Length Dosing, [...] Daily, # 90 tab(s), Refills(s) 1, Pharmacy: [facility], 178, cm, 12/19/22 9:57:00 [...] Daily, # 30 tab(s), Refills(s) 0, Pharmacy: [facility]/pharmacy #[id number] Start Date: 04/01/22 Status: Ordered metFORMIN hydrochloride 500 mg oral tablet (20 sources) Biguanide Start: 4 metformin 500 mg Tab See Instructions, TAKE 2 TABLETS TWICE A DAY, # 360 tab(s), Refills(s) 1, Pharmacy: [facility], 179, cm, 03/26/24 10:53:00 EDT, Height/Length Dosing, 86, kg, 03/26/24 10:53:00 EDT, Weight Dosing Start Date: 06/19/24 Status: Ordered Start: 07-06-2023 metformin 500 mg Tab See Instructions, TAKE 2 TABLETS TWICE A DAY, # 360 tab(s), Refills(s) 1, Pharmacy: [facility], 178, cm, 12/18/23 13:19:00 EST, Height/Length Dosing, 89.1, kg, 12/18/23 13:19:00 EST, Weight Dosing Start Date: 12/19/23 Status: Ordered Start: 04-25-2023 take 2 tablets by mo uth twice daily metformin 500 mg Tab 1,000 mg = 2 tab(s), Oral, BID, TAKE TWO TABLETS BY MOUTH TWICE A DAY, # 360 tab(s), Refills(s) 1, Pharmacy: [email or web address], 178, cm, 12/19/22 9:57:00 EST, Height/Length Dosing, 90.4, kg, 12/19/22 9:57:00 EST, Weight Dosing Start Date: 04/25/23 Status: Ordered Start: 04-01-2022 End: 09-28-2022 take 2 tablets by mouth twice daily metformin 500 mg ER Tab 1,000 mg = 2 tab(s), Oral, BID, X 90 day(s), # 360 tab(s), Refills(s) 1, Pharmacy: [facility] Start Date: 04/01/22 Stop [...] DAILY, # 90 cap(s), Refills(s) 1, Pharmacy: [facility], 179, cm, 03/26/24 10:53:00 EDT, Height/Length Dosing, 86, kg, 03/26/24 10:53:00 EDT, Weight Dosing Start Date: 05/06/24 Status: Ordered Start: 11-20-2023 take 1 capsule by mo [facility] once daily omeprazole 20 mg Cap-DR 20 mg = 1 cap(s), Oral, Daily, # 90 cap(s), Refills(s) 1, Pharmacy: [facility], 178, cm, 08/29/23 14:28:00 EST, Height/Length Dosing, 90.8, kg, 08/29/23 14:28:00 EST, Weight Dosing Start Date: 11/20/23 Status: Ordered Start: 07-03-2023 [facility] 1 [facility] omeprazole 20 mg Cap-DR 20 mg = 1 cap(s), Oral, Daily, # 90 cap(s), Refills(s) 1, Pharmacy: [facility], 178, cm, 07/03/23 7:24:00 EDT, Height/Length Dosing, 90, kg, 07/03/23 7:24:00 EDT, Weight Dosing Start Date: 07/03/23 Status: Ordered Start: 08-29-2014 End: 09-28-2022 take 1 capsule by mouth once daily omeprazole 20 mg Cap-DR 20 mg = 1 cap(s), Oral, Daily, X 90 day(s), # 90 cap(s), Refills(s) 1, Pharmacy: [facility] Start Date: 04/01/22 Stop Date: 09/28/22 Status: Ordered Comment on above: Take 1 [facility]. 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 Thanks. [facility] Orders Onlyon 07-15-2024 Orders Only [id number] Marcelle Deutsch 1960 [facility] Provider Department Center 07/15/2024 ALESHA BERNARDO WENDY Michaels Family History Problem Relation Age of Onset Coronary artery disease Father Atrial fibrillation Father Heart attack Brother Family Status - Relation Status Age at Father Brother [facility] Office Visiton 07-12-2024 Follow-up visit [id number] Marcelle Deutsch 1960 Date Provider Department Center 07/12/2024 [id number]-[id number] GORE WENDY Michaels Family History Problem Relation Age of Onset Coronary artery disease Father Atrial fibrillation Father Heart attack Brother Family Status - Relation Status Age at Father Brother Level of Service:02991 [place] OFFICE/OUTPATIENT ESTABLISHED MOD MDM 30 MIN [facility] Orders Onlyon 07-11-2024 Orders Only [id number] Marcelle Deutsch 1960 Date Provider Department Center 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 Family History Problem Relation Age of Onset Coronary artery disease Father Atrial fibrillation Father Heart attack Brother Family Status - Relation Status Age at Father Brother Normal [facility] 06-28-20 [facility] Case Information Case Priority: None Programs: -- Referral Source: Academic Adviser Referral Reason: Disease management Case Type: Chronic Care Management Risk Score: -- Case Status: Active (December 28, 2023) Date Assigned: December 19, 2023 Assigned By: Christian Hernandez Date Enrolled: December 28, 2023 Assigned Primary Personnel: Christian Hernandez Assigned Secondary Personnel: -- Case Physician: Ursula Love MD Ongoing AAA (abdominal aortic aneurysm) Aortic aneurysm BMI 28.0-28.9,adult BPH (benign prostatic hyperplasia) 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 Controlled type 2 diabetes mellitus without [...] Assessments 12/28/23 08:18:00 Result Name Value Comment [facility] Program Enrollment Verbally agreed to receive [facility] services CCM Written Consent Written consent in progress CCM Verbal Consent By Self 12/28/23 07:00:00 Result Name Value Comment HIPPA Verified Type of Contact In person at home CM Preferred Spoken Language Honduran CM Preferred Written Language Honduran Preferred Communication Mode Verbal Ability to Read/Write Able to read, Able to write Preferred Salutation MrNelly Preferred Method of Contact Cell Cell Phone [phone] Best Time to Visit or Contact 7-10 am Best Day to Visit or Contact No preference Appointment Reminders Patient portal, Other secured messaging Preferred Way to Send [facility] Patient portal Preferred Mailing Address [address] [place] [address], [phone] Learning Style Pref Patient Verbal explanation Learning [...] Shares bed Support System Spouse/Significant other Primary [place] Fisher of Home Medication Self Current DME at Home No Currently Receiving Skilled Services No Skilled Service Need (more content not included)... Normal [facility] 06-11-20 24 [facility] Case Information Case Priority: None Programs: -- Referral Source: Academic Adviser Referral Reason: Disease management Case Type: Chronic Care Management Risk Score: -- Case Status: Active (December 28, 2023) Date Assigned: December 19, 2023 Assigned By: Christian Hernandez Date Enrolled: December 28, 2023 Assigned Primary Personnel: Christian Hernandez Assigned Secondary Personnel: -- Case Physician: Ursula Love MD Ongoing AAA (abdominal aortic aneurysm) Aortic aneurysm BMI 28.0-28.9,adult BPH (benign prostatic hyperplasia) 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 Controlled type 2 diabetes mellitus without [...] CCM Program Enrollment Verbally agreed to receive [facility] services CCM Written Consent Written consent in progress CCM Verbal Consent By Self 12/28/23 07:00:00 Result Name Value Comment HIPPA Verified Type of Contact In person at home CM Preferred Spoken Language Honduran CM Preferred Written Language Honduran Preferred Communication Mode Verbal Ability to Read/Write Able to read, Able to write Preferred Salutation Mr. Preferred Method of Contact Cell Cell Phone [phone] Best Time to Visit or Contact 7-10 am Best Day to Visit or Contact No preference Appointment Reminders Patient portal, Other secured messaging Preferred Way to Send [facility] Patient portal Preferred Mailing Address [address] [place] [address] Learning Style Pref Patient Verbal explanation Learning [...] Shares bed Support System Spouse/Significant other Primary [place] Fisher of Home Medication Self Current DME at Home No Currently Receiving Skilled Services No Skilled Service Needs Anticipated No Barriers to Care None Home Barriers None (more content not included)... Normal [facility] 36on 06-04-2024 36 Regarding carotid duplex performed on 05/29/2024: MERVAT Kendrick MA Let them know less than 49% stenosis of both carotids- really very good- Continue all meds and we will see them next time Probably a repeat carotid in 1-3 years- unless symptoms Patient made aware via email. [facility] 04-25-20 [facility] Case Information Case Priority: None Programs: -- Referral Source: Academic Adviser Referral Reason: Disease management Case Type: Chronic Care Management Risk Score: -- Case Status: Active (December 28, 2023) Date Assigned: December 19, 2023 Assigned By: Christian Hernandez Date Enrolled: December 28, 2023 Assigned Primary Personnel: Christian Hernandez Assigned Secondary Personnel: -- Case Physician: Ursula Love MD Ongoing AAA (abdominal aortic aneurysm) Aortic aneurysm BMI 28.0-28.9,adult BPH (benign prostatic hyperplasia) 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 Preferred Method of Contact Cell Cell Phone [phone] Best Time to Visit or Contact 7-10 am Best Day to Visit or Contact No preference Appointment Reminders Patient portal, Other secured messaging Preferred Way to Send [facility] Patient portal Preferred Mailing Address [address] [place] [address], [phone] Learning Style Pref Patient Verbal explanation Learning [...] Shares bed Support System Spouse/Significant other Primary [place] Fisher of Home Medication Self Current DME at Home No Currently Receiving Skilled Services No Skilled Service Needs Anticipated No Barriers to Care None Home Barriers None Employment Status Retired Financial Issues None Sources of Income Socia (more content not included)... Normal [facility] Ambulatory Visit Summaryon 0 03-26-2024 Ambulatory [...] Oncology Monday 8:00 AM EST With: Where: [facility] [place] Normal [facility] Family Medicine Office/Clini c Noteon 03-26-2024 [...] # 100 cap(s), Refills(s) 0, Pharmacy: [facility]/pharmacy #[id number], 178, cm, 12/18/23 13:19:00 EST, Height/Length Dosing, 89.1, kg, 12/18/23 13:19:00 EST, Weight Dosing lisinopril, See Instructions, TAKE 1 TABLET DAILY, # 90 tab(s), Refills(s) 1, Pharmacy: [facility]/pharmacy #[id number], 179, cm, 03/26/24 10:53:00 EDT, Height/Length Dosing, 86, kg, 03/26/24 10:53:00 EDT, Weight Dosing Follow-up No qualifying data available Problem List/Past Medical History Ongoing AAA (abdominal aortic aneurysm) Aortic aneurysm BMI 28.0-28.9,adult BPH (benign prostatic hyperplasia) 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 Controlled type 2 diabetes mellitus without [...] Others hurt by (more content not included)... [facility] Comment on above: Result Comment: Elec tronically Signed By: Km NIELSON, Ursula Porter\.br\Date and Time Signed: 03/26/24 16:51 EDT Physician Referralon 024 Physician Referral [id number] #[id number] [facility] Population Healthon 03-22-20 24 Population Health Case Information Case Priority: None Programs: -- Referral Source: Rn Imcu Referral Reason: Disease management Case Type: Chronic Care Management Risk Score: -- Case Status: Active (December 28, 2023) Date Assigned: December 19, 2023 Assigned By: Christian Hernandez Date Enrolled: December 28, 2023 Assigned Primary Personnel: Christian Hernandez Assigned Secondary Personnel: -- Case Physician: Ursula Love MD Problems Ongoing AAA (abdominal aortic aneurysm) Aortic aneurysm BMI 28.0-28.9,adult BPH (benign prostatic hyperplasia) 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 Controlled type 2 diabetes mellitus without [...] Assessments 12/28/23 08:18:00 Result Name Value Comment [facility] Program Enrollment Verbally agreed to receive [facility] services CCM Written Consent Written consent in progress [facility] Verbal Consent By Self 12/28/23 07:00:00 Result Name Value Comment HIPPA Verified Type of Contact In person at home CM Preferred Spoken Language Honduran CM Preferred Written Language Honduran Preferred Communication Mode Verbal Ability to Read/Write Able to read, Able to write Preferred Salutation Mr. Preferred Method of Contact Cell Cell Phone [phone] Best Time to Visit or Contact 7-10 am Best Day to Visit or Contact No preference Appointment Reminders Patient portal, Other secured messaging Preferred Way to Send PHI Patient portal Preferred Mailing Address [address] [place] [address], [phone] Learning Style Pref Patient Verbal explanation Learning [...] Shares bed Support System Spouse/Significant other Primary Pot Fisher of Home Medication Self Current DME at Home No Currently Receiving Skilled Services No Skilled Service Needs Anticipated No Barriers to Care None Home Barriers None Employment Status Retired Financial Issues None Sources of Income Social Security Pat (more content not included)... Normal [facility] Consent for Treatmenton 02-15 Consent for Treatment [id number] #[id number] Normal [facility] Oncology Progress Noteon Oncology Progress Note [...] a colonoscopy done in Sep 2023 at [facility] after positive Cologuard test. This showed [...] Contact Information Tj NATHAN-, Ana Rivas, ONC [facility] [address] [place] [phone] Additional Instructions: cbc, cmp, iron studies in 3mo and 6mo follow-up in 6mo with EXPERIMENTAL PREFLIGHT MECHANIC Medications amLODIPine 5 mg Tab, Oral, [...] (DoT), 100 (more content not included)... Normal [facility] CBC w/ Auto Diffon 4 Acanthocytes LM Ql (Bld) PRESENT Invalid Interpretation Code [facility] Comment on above: Performed By: #### 2 [id number] #### [facility] [address] [place] [address] Anisocytosis Ql (Bld) PRESENT Invalid Interpretation Code [facility] Comment on above: Performed By: #### 2 [id number] #### [facility] [address] [place] [address] Basophils/100 WBC (Bld) 0.8 % Normal 0.0-2.0 [facility] Comment on above: Performed By: #### 2 [id number] #### [facility] [address] [place] [address] Basophils/Leukocytes Auto (Bld) [Pure # fraction] 0.0 E9/L Normal 0.0-0.2 [facility] Comment on above: Performed By: #### 2 [id number] #### [facility] [address] [place] [address] Eosinophils (Bld) [#/Vol] 0.2 E9/L Normal 0.0-0.5 [facility] Comment on above: Performed By: #### 2 [id number] #### [facility] [address] [place] [address] Eosinophils/100 WBC (Bld) 3.7 % Normal 0.0-8.0 [facility] Comment on above: Performed By: #### 2 [id number] #### [facility] [address] [place] [address] Erythrocyte distribution width (RBC) [Ratio] 27.1 % High 10.9-14.2 [facility] Comment on above: Performed By: #### 2 [id number] #### [facility] [address] [place] [address] Hematocrit (Bld) [Volume fraction] 40.0 % Normal 37.7-49.0 [facility] Comment on above: Performed By: #### 2 [id number] #### [facility] [address] [place] [address] Hemoglobin (Bld) [Mass/Vol] 13.4 g/dL Low 13.5-17.5 [facility] Comment on above: Performed By: #### 2 [id number] #### [facility] [address] [place] [address] Hypochromia Auto Ql (Bld) PRESENT Invalid Interpretation Code [facility] Comment on above: Performed By: #### 2 [id number] #### [facility] [address] [place] [address] Lymphocytes (Bld) [#/Vol] 1.6 E9/L Normal 1.0-4.0 [facility] Comment on above: Performed By: #### 2 [id number] #### [facility] [address] [place] [address] Lymphocytes/100 WBC (Bld) 32.5 % Normal 14.0-50.0 [facility] Comment on above: Performed By: #### 2 [id number] #### [facility] [address] [place] [address] MCH (RBC) [Entitic mass] 27.3 pg Normal 27.0-34.0 [facility] Comment on above: Performed By: #### 2 [id number] #### [facility] [address] [place] [address] MCHC (RBC) [Mass/Vol] 33.6 g/dL Normal 31.4-36.0 [facility] Comment on above: Performed By: #### 2 [id number] #### [facility] [address] [place] [address] MCV (RBC) [Entitic vol] 81.4 fL Normal 80.0-100.0 [facility] Comment on above: Performed By: #### 2 [id number] #### [facility] [address] [place] [address] Monocytes (Bld) [#/Vol] 0.4 E9/L Normal 0.2-1.0 [facility] Comment on above: Performed By: #### 2 [id number] #### [facility] [address] [place] [address] Neutrophils (Bld) [#/Vol] 2.7 E9/L Normal 2.0-7.5 [facility] Comment on above: Performed By: #### 2 [id number] #### [facility] [address] [place] [address] Neutrophils/100 WBC (Bld) 55.1 % Normal 36.0-75.0 [facility] Comment on above: Performed By: #### 2 [id number] #### [facility] [address] [place] [address] Ovalocytes LM Ql (Bld) PRESENT Invalid Interpretation Code [facility] Comment on above: Performed By: #### 2 [id number] #### [facility] [address] [place] [address] Platelet mean volume (Bld) [Entitic vol] 9.9 fL Normal 6.4-10.8 [facility] Comment on above: Performed By: #### 2 [id number] #### [facility] [address] [place] [address] Platelets (Bld) [#/Vol] 116.0 E9/L Low 150.0-500.0 [facility] Comment on above: Performed By: #### 2 [id number] #### [facility] [address] [place] [address] RBC (Bld) [#/Vol] 4.9 E12/L Normal 4.3-5.9 [facility] Comment on above: Performed By: #### 2 [id number] #### [facility] [address] [place] [address] RBC size Nom (Bld) SEE MORPHOLOGY Invalid Interpretation Code [facility] Comment on above: Performed By: #### 2 [id number] #### [facility] [address] [place] [address] WBC corrected for nucl RBC Auto (Bld) [#/Vol] 5.0 E9/L Normal 4.0-11.0 [facility] Comment on above: Performed By: #### 2 [id number] #### [facility] [address] [place] [address] CHEMISTRYOrdered By: SYSTEM SYSTEM on 03-12-2024 Albumin [...] 03-12-2024 Albumin [Mass/Vol] 4.3 g/dL Normal 3.3-5.0 [facility] Comment on above: Performed By: #### 2 [id number] #### [facility] [address] [place] [address] Albumin/Globulin (S) [Mass conc ratio] 2.3 High 1.1-2.2 [facility] Comment on above: Performed By: #### 2 [id number] #### [facility] [address] [place] [address] ALP [Catalytic activity/Vol] 54 Int._Unit/L Normal 21-98 [facility] Comment on above: Performed By: #### 2 [id number] #### [facility] [address] [place] [address] ALT No additional P-5'-P [Catalytic activity/Vol] 47 Int._Unit/L High 6-46 [facility] Comment on above: Performed By: #### 2 [id number] #### [facility] [address] [place] [address] Anion gap [Moles/Vol] 12 mmol/L Normal 6-16 [facility] Comment on above: Performed By: #### 2 [id number] #### [facility] [address] [place] [address] AST [Catalytic activity/Vol] 30 Int._Unit/L Normal 5-43 [facility] Comment on above: Performed By: #### 2 [id number] #### [facility] [address] [place] [address] Bilirubin [Mass/Vol] 1.8 mg/dL High 0.0-1.1 [facility] Comment on above: Performed By: #### 2 [id number] #### [facility] [address] [place] [address] Calcium [Mass/Vol] 9.1 mg/dL Normal 8.9-11.1 [facility] Comment on above: Performed By: #### 2 [id number] #### [facility] [address] [place] [address] Chloride [Moles/Vol] 102 mmol/L Normal 101-111 [facility] Comment on above: Performed By: #### 2 [id number] #### [facility] [address] [place] [address] CO2 [Moles/Vol] 26 mmol/L Normal 21-31 [facility] Comment on above: Performed By: #### 2 [id number] #### [facility] [address] [place] [address] Creatinine [Mass/Vol] 0.8 mg/dL Normal 0.5-1.3 [facility] Comment on above: Performed By: #### 2 [id number] #### [facility] [address] [place] [address] Globulin (S) [Mass/Vol] 1.9 g/dL Normal 1.4-4.0 [facility] Comment on above: Performed By: #### 2 853146 #### [facility] [address] [place] [address] Glucose [Mass/Vol] 153 mg/dL Normal 55-199 [facility] Comment on above: Performed By: #### 2 078644 #### [facility] [address] [place] [address] Potassium [Moles/Vol] 4.7 mmol/L Normal 3.5-5.3 [facility] Comment on above: Performed By: #### 2 600193 #### [facility] [address] [place] [address] Protein [Mass/Vol] 6.2 g/dL Normal 6.0-7.8 [facility] Comment on above: Performed By: #### 2 304749 #### [facility] [address] [place] [address] Sodium [Moles/Vol] 135 mmol/L Normal 135-145 [facility] Comment on above: Performed By: #### 2 119536 #### [facility] [address] [place] [address] Urea nitrogen [Mass/Vol] 9 mg/dL Normal 5-21 [facility] Comment on above: Performed By: #### 2 955635 #### [facility] [address] [place] [address] Urea nitrogen/Creatinine [Mass ratio] 11 No Units Normal 10-20 [facility] Comment on above: Performed By: #### 2 326627 #### [facility] [address] [place] [address] Consent for Treatmenton 02-14 Consent for Treatment [id number] #1.00TIFF Normal [facility] Ferritinon 03-12-2024 Ferritin [Mass/Vol] 179 ng/mL Normal 24-336 [facility] Comment on above: Performed By: #### 2 480791 #### [facility] [address] [place] [address] HEMATOLOGYOrdered By: SYSTEM SYSTEM on 03-12-2024 Acanthocytes [...] 05-28-2024 Iron [Mass/Vol] 117 microgram/dL Normal 35-153 [facility] Comment on above: Performed By: #### 2 221110 #### [facility] [address] [place] [address] Iron Saturationon 03-12-2024 Iron binding capacity [Mass/Vol] 326 microgram/dL Normal 250-400 [facility] Comment on above: Performed By: #### 2 853648 #### [facility] [address] [place] [address] Iron saturation [Mass fraction] 36 % Normal 20-50 [facility] Comment on above: Performed By: #### 2 765704 #### [facility] [address] [place] [address] Transferrinon 03-12-2024 Transferrin [Mass/Vol] 233 mg/dL Normal 200-370 [facility] Comment on above: Performed By: #### 2 309967 #### [facility] [address] [place] [address] eGFRon 03-12-2024 eGFR 98 mL/min/1.73 m2 Normal >=59 [facility] Comment on above: Order Comment: Order added by Discern Expert. Performed By: #### 1 9081788 #### [facility] [address] [place] [address] Consent for Treatmenton Consent for Treatment [id number] 40 [id number] #1.00TIFF Normal [facility] Consent for Treatmenton 01-15 Consent for Treatment [id number] 40 [id number] #1.00TIFF Normal [facility] Consent for Treatmenton 01-14 Consent for Treatment [id number] 40 [id number] #1.00TIFF Normal [facility] Consenton 01-31-2024 Consent [id number]#1.00TIFF Normal [facility] Outside Diabetes Eye Examon 01-31-2024 Outside Diabetes Eye Exam [id number] #1.00TIFF Selene Hou [facility] Population Healthon 01-26-20 Population Health Case Information Case Priority: None Programs: -- Referral Source: Rn Imcu Referral Reason: Disease management Case Type: Chronic Care Management Risk Score: -- Case Status: Active (December 28, 2023) Date Assigned: December 19, 2023 Assigned By: Christian Hernandez Date Enrolled: December 28, 2023 Assigned Primary Personnel: Christian Hernandez Assigned Secondary Personnel: -- Case Physician: Km NIELSON, Ursula Leos Ongoing AAA (abdominal aortic aneurysm) Aortic aneurysm BMI 28.0-28.9,adult BPH (benign prostatic hyperplasia) 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 Preferred Method of Contact Cell Cell Phone [phone] Best Time to Visit or Contact 7-10 am Best Day to Visit or Contact No preference Appointment Reminders Patient portal, Other secured messaging Preferred Way to Send PHI Patient portal Preferred Mailing Address [address] [place] [address], [address] Learning Style Pref Patient Verbal explanation Learning [...] Shares bed Support System Spouse/Significant other Primary Pot Fisher of Home Medication Self Current DME at Home No Currently Receiving Skilled Services No Skilled Service Needs Anticipated No Barriers to Care None Home Barriers None Employment Status Retired Financial Issues None Sources of Income Social Security Pat (more content not included)... Normal [facility] Consent for Treatmenton 01-14 Consent for Treatment [id number] #1.00TIFF Selene Hou [facility] Oncology Progress Noteon Oncology Progress Note Diagnoses [...] his nasa (more content not included)... Normal [facility] Free K+L Lt Chains,Qn,Son Immunoglobulin light chains.kappa.free (S) [Mass/Vol] 19.0 mg/L Invalid Interpretation Code 3.3-19.4 [facility] Comment on above: Performed By: #### 2 [id number], 7161827, 7875240, 8599706, 9877376, 0624861, 0376267, 5223890, 39736136 ####[facility] [address] [place] [address] Immunoglobulin light chains.kappa.free/Imm unoglobulin light chains.lambda.free (S) [Mass ratio] 1.62 Invalid Interpretation Code 0.26-1.65 [facility] Comment on above: Result Comment: Perf ormed at: [facility] [address] [place], [place] [id number] PhD Nicole Fang Performed By: #### 2 08348968, 2546694, 4459341, 5170756, 6664477, 0218761, 6613939, 3110338, 45620174 ####[facility] [address] [place] [address] Immunoglobulin light chains.lambda.free [Mass/Vol] 11.7 mg/L Invalid Interpretation Code 5.7-26.3 [facility] Comment on above: Performed By: #### 2 66549512, 5232061, 3787305, 1600353, 1837724, 6522501, 8779668, 5960540, 48263470 ####[facility] [address] [place] [address] Immunofixation Serumon 01-16 IgA [Mass/Vol] 87 mg/dL Invalid Interpretation Code 61-437 [facility] Comment on above: Performed By: #### 2 68442814, 2602033, 3732279, 3586986, 4761455, 1997005, 6812607, 9813720, 23121227 ####[facility] [address] [place] [address] IgG [Mass/Vol] 406 mg/dL Low 603-1613 [facility] Comment on above: Performed By: #### 2 32078906, 4553191, 2353780, 2964438, 7455676, 8358476, 2532010, 9420248, 09022179 ####[facility] [address] [place] [address] IgM [Mass/Vol] 136 mg/dL Invalid Interpretation Code 20-172 [facility] Comment on above: Result Comment: Perf ormed at: [facility] [address] [place], [place] [id number] PhD Nicole Fang Performed By: #### 2 94778795, 6759600, 2331689, 1327535, 9917926, 8357880, 7460478, 6737984, 63897198 ####[facility] [address] [place] [address] Protein Fractions [Interp] Comment Invalid Interpretation Code [facility] Comment on above: Result Comment: No m onoclonality detected. Performed By: #### 2 14350009, 0007380, 0625863, 0185852, 1862965, 2904637, 3183400, 6756878, 76851881 ####[address] [place] [address] SPEon 01-17-2024 Albumin [Mass/Vol] 3.6 g/dL Invalid Interpretation Code 2.9-4.4 [facility] Comment on above: Performed By: #### 2 71281186, 9492111, 0205381, 2464961, 5059156, 6168783, 3150715, 9745796, 32854127 ####[address] [place] [address] Albumin/Globulin [Mass ratio] 1.8 {ratio} High 0.7-1.7 [facility] Comment on above: Performed By: #### 2 17864275, 7942190, 0554335, 1528079, 0037107, 2497639, 8943437, 6648490, 33332765 ####[address] [place] [address] Alpha 1 globulin Elph [Mass/Vol] 0.2 g/dL Invalid Interpretation Code 0.0-0.4 [facility] Comment on above: Performed By: #### 2 57519226, 6569843, 7842067, 6029106, 8661423, 6810354, 3625442, 2199383, 34488553 ####[address] [place] [address] Alpha 2 globulin Elph [Mass/Vol] 0.6 g/dL Invalid Interpretation Code 0.4-1.0 [facility] Comment on above: Performed By: #### 2 79523901, 9389210, 2970804, 7038320, 1893430, 1719320, 6187672, 8145476, 47257777 ####[facility] [address] [place] [address] Beta globulin Elph [Mass/Vol] 0.8 g/dL Invalid Interpretation Code 0.7-1.3 [facility] Comment on above: Performed By: #### 2 11656007, 8512584, 5148310, 8424476, 3823371, 7846036, 0537085, 9292517, 13063216 ####[facility] [address] [place] [address] Gamma globulin Elph [Mass/Vol] 0.4 g/dL Invalid Interpretation Code 0.4-1.8 [facility] Comment on above: Performed By: #### 2 95723088, 6372782, 9743320, 5000909, 6736344, 9839454, 5601568, 5574033, 72920162 ####[address] [place] [address] Globulin (S) [Mass/Vol] 2.0 g/dL Low 2.2-3.9 [facility] Comment on above: Performed By: #### 2 88436384, 3906601, 7235301, 3285133, 7052026, 7908947, 1265213, 6400120, 12110898 ####[facility] [address] [place] [address] Laboratory comment Harman (Report) Comment Invalid Interpretation Code [facility] Comment on above: Result Comment: Prot ein electrophoresis scan will follow via computer, mail, or account relationship manager delivery. Performed By: #### 2 55861914, 7978360, 5202915, 7811343, 6029464, 3453562, 4398102, 7093417, 12071688 ####[address] [place] [address] Protein [Mass/Vol] 5.6 g/dL Low 6.0-8.5 [facility] Comment on above: Performed By: #### 2 83097207, 4854457, 9797816, 0292777, 1896034, 8517989, 0888185, 5358704, 68872784 ####[facility] [address] [place] [address] Protein Fractions [Interp] Comment: Invalid Interpretation Code [facility] Comment on above: Result Comment: SPE shows decreased total protein. Performed at: [facility] [address] [place] [address] [id number] PhD Nicole Fang Performed By: #### 2 10229574, 6840938, 9620675, 8848237, 4713725, 4892968, 6620715, 8669622, 53784568 ####[facility] [address] [place] [address] Protein.monoclonal Elph [Mass/Vol] Not Observed Invalid Interpretation Code Not Observed [facility] Comment on above: Performed By: #### 2 41643857, 0369681, 5651985, 4399397, 9582682, 7335073, 5586959, 5146855, 89103378 ####[facility] [address] [place] [address] CHEMISTRYOrdered By: SYSTEM SYSTEM on 01-16-2024 Cobalamin [...] for Treatmenton Consent for Treatment [id number] #1.00TIFF Normal [facility] Ferritinon 01-16-2024 Ferritin [Mass/Vol] 8 ng/mL Low 24-336 [facility] Comment on above: Performed By: #### 2 62139147, 2202484, 0825695, 3154706, 2708123, 3200374, 5051759, 9275640, 36975706 ####[facility] [address] [place] [address] Folateon 01-16-2024 Folate [Mass/Vol] 13.0 ng/mL Normal >=6.7 [facility] Comment on above: Performed By: #### 2 78429871, 3538050, 8250181, 5747194, 4248774, 1237555, 2601052, 6569296, 29541643 ####[facility] [address] [place] [address] Ironon 01-16-2024 Iron [Mass/Vol] 36 microgram/dL Normal 35-153 [facility] Comment on above: Performed By: #### 2 67466640, 3860445, 8197267, 3634435, 8988265, 3124874, 1226889, 6894061, 52019049 #### [facility] [address] [place] [address] Iron Saturationon 01-16-2024 Iron binding capacity [Mass/Vol] 473 microgram/dL High 250-400 [facility] Comment on above: Performed By: #### 2 32193323, 5290889, 7570479, 2738733, 5104866, 7123908, 7455400, 6735552, 07626953 #### [facility] [address] [place] [address] Iron saturation [Mass fraction] 8 % Low 20-50 [facility] Comment on above: Performed By: #### 2 11222684, 7573038, 3783165, 2245891, 4702498, 4151510, 6701138, 7980281, 68552955 #### [facility] [address] [place] [address] Transferrinon 01-16-2024 Transferrin [Mass/Vol] 338 mg/dL Normal 200-370 [facility] Comment on above: Performed By: #### 2 31630822, 4671590, 8437276, 4855581, 1510983, 0017610, 5773455, 0958817, 58242923 #### [facility] [address] [place] [address] Vit B12on 01-16-2024 Cobalamin (Vitamin B12) [Mass/Vol] 213 pg/mL Normal 50-1500 [facility] Comment on above: Performed By: #### 2 89946718, 7213339, 8796026, 0397389, 8878330, 2004666, 2223356, 8136077, 54456426 ####[facility] [address] [place] [address] 36on 01-10-2024 36 Message sent from patient to my email: Kg Mesa hope all is well, I forgot to ask if I???m 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 Some things I???ve read are telling me not to?? Marilyn, are you able to advise on this? Thanks. Normal [facility] Physician Referralon 024 Physician Referral [id number] #1.00TIFF Normal [facility] Office Visiton 12-29-2023 Follow-up visit [id number] Marcelle Deutsch 1960 M Date Provider Department Center 12/29/2023 PARISA MUNGUIA [facility] Family History Problem Relation Age of Onset Coronary artery disease Father Atrial fibrillation Father Heart attack Brother Family Status - Relation Status Age at Father Brother Level of Service:[address] [place] OFFICE/OUTPATIENT ESTABLISHED MOD MDM 30 MIN Normal [facility] ED Pat Eduon 12-28-2023 ED Pat Edu Cardiovascular Coronary Artery Disease, Male Coronary artery disease (CAD) is a condition in which the arteries that lead to the heart (coronary arteries) become narrow or blocked. The narrowing or blockage can lead to decreased blood flow to the heart. Prolonged reduced blood flow can cause a heart attack (myocardial infarction, or ID). This condition may also be called coronary [...] these instructions at home: Medicines ? Take zspu-gyb-kkvvzsf and prescription medicines only as told by [...] use any (more content not included)... 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 Controlled type 2 diabetes mellitus without [...] CCM Program Enrollment Verbally agreed to receive [facility] services CCM Written Consent Written consent in progress CCM Verbal Consent By Self 12/28/23 07:00:00 Result Name Value Comment HIPPA Verified Type of Contact In person at home CM Preferred Spoken Language Honduran CM Preferred Written Language Honduran Preferred Communication Mode Verbal Ability to Read/Write Able to read, Able to write Preferred Salutation Preferred Method of Contact Cell Cell Phone [phone] Best Time to Visit or Contact 7-10 am Best Day to Visit or Contact No preference Appointment Reminders Patient portal, Other secured messaging Preferred Way to Send PHI Patient portal Preferred Mailing Address [address] [place] [address] Learning Style Pref Patient Verbal explanation Learning [...] Shares bed Support System Spouse/Significant other Primary Pot Fisher of Home Medication Self Current DME at Home No Currently Receiving Skilled Services No Skilled Service Needs Anticipated No Barriers to Care None Home Barriers None Employment Status Retired Financial Issues None Sources of Income Social Security Patient Account Ser (more content not included)... 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 Controlled type 2 diabetes mellitus without [...] - Comments: - - 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 Frequency Status Manager Mortgage Review educational material - - Not done [...] - Comments: - - 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 Frequency Status Manager Mortgage Review educational material - - Not done [...] - Comments: - - 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 Frequency Status Manager Mortgage Review educational material - - Not done [...] - Comments: - - 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 Frequency Status Manager Mortgage Review educational material - - Not done [...] - - Not done - - Selene [facility] CT Chest, Low Dose Screening on [...] MD Transcribed by: LUDWIN Technologist: MEKHI Normal [facility] Consent for Treatmenton 12-14 Consent for Treatment [id number] #1.00TIFF [facility] Family Medicine Office/Clini c Noteon 12-22-2023 [...] PCP visit. Will have labs completed with [facility]. Colonoscopy up to date, due for repeat [...] with CDC recommendation that everyone born from [birth year]14[birth year]66 get tested for Hepatitis C. This is [...] Pack Yea (more content not included)... Normal [facility] Comment on above: Result Comment: Elec tronically Signed By: Ursula Love MD\.br\Date and Time Signed: 12/22/23 11:50 EST\.br\Electronically Co-Signed By: Christian Hernandez\.br\Date and Time Co-Signed: 12/18/23 15:00 EST .Interpretation:on HCV Ab IA Ql Comment Invalid Interpretation Code [facility] Comment on above: Result Comment: Not infected with HCV unless early or acute infection is suspected (which may be delayed in an immunocompromised individual), or other evidence exists to indicate HCV infection. Performed at: [facility] [address] [place], [place] [id number] [id number] PhD Nicole Fang Performed By: #### 2 751246, 9414111656, 8752127, 0573430, 0354047495, 031231274, 53659562 ####[facility] [address] [place] [address] HCV Antibody RFX to Quant PC Kavin 12-20-2023 HCV IgG IA Ql Non-Reactive Invalid Interpretation Code Non Reactive [facility] Comment on above: Result Comment: Perf ormed at: [facility] [address] [place], [place] [id number] PhD Nicole Fang Performed By: #### 2 573974, 7266896865, 8217035, 4534127, 8162914893, 075079000, 32876938 ####[facility] [address] [place] [address] Screenson 12-19-2023 Screens [id number] #1.00TIFF Normal [facility] Ambulatory Visit Summaryon 0 12-18-2023 Ambulatory [...] 28.0-28.9,adult BPH (benign prostatic hyperplasia) 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 Normal [facility] CBC w/ Auto Diffon 4 Anisocytosis Ql (Bld) PRESENT Invalid Interpretation Code [facility] Comment on above: Performed By: #### 2 233945, 6125795080, 9655822, 3038872, 4399072044, 461924822, 38209184 ####[facility] [address] [place] [address] Basophils/100 WBC (Bld) 0.6 % Normal 0.0-2.0 [facility] Comment on above: Performed By: #### 2 900111, 6344607130, 8411156, 5894030, 1392244066, 614328145, 44963053 ####[facility] [address] [place] [address] Basophils/Leukocytes Auto (Bld) [Pure # fraction] 0.0 E9/L Normal 0.0-0.2 [facility] Comment on above: Performed By: #### 2 413446, 5220488044, 8140182, 2255797, 2612048597, 817402227, 93314200 ####[address] [address] Eosinophils (Bld) [#/Vol] 0.1 E9/L Normal 0.0-0.5 [facility] Comment on above: Performed By: #### 2 528993, 0644387421, 1239416, 0022599, 0606228630, 353324253, 24608940 ####[address] [address] Eosinophils/100 WBC (Bld) 2.7 % Normal 0.0-8.0 [facility] Comment on above: Performed By: #### 2 960789, 8603097067, 6546219, 0311854, 7069605077, 713991069, 33955090 ####[address] [address] Erythrocyte distribution width (RBC) [Ratio] 17.2 % High 10.9-14.2 [facility] Comment on above: Performed By: #### 2 377311, 8817916272, 1899798, 1743569, 3517015168, 630593354, 62547323 ####[address] [address] Hematocrit (Bld) [Volume fraction] 34.4 % Low 37.7-49.0 [facility] Comment on above: Performed By: #### 2 045156, 7813879841, 0518254, 6148528, 8891307640, 068737672, 54247382 ####[address] [address] Hemoglobin (Bld) [Mass/Vol] 10.9 g/dL Low 13.5-17.5 [facility] Comment on above: Performed By: #### 2 351219, 9265674757, 6132846, 4421749, 8967642230, 684512123, 05500143 ####[address] [place] [address] Hypochromia Auto Ql (Bld) PRESENT Invalid Interpretation Code [facility] Comment on above: Performed By: #### 2 675178, 7241646090, 9429636, 4192154, 9505262311, 549664321, 70264671 ####[address] [address] Lymphocytes (Bld) [#/Vol] 1.3 E9/L Normal 1.0-4.0 [facility] Comment on above: Performed By: #### 2 694043, 6277963448, 3313448, 6639051, 2327089495, 930595986, 70004252 ####[address] [address] Lymphocytes/100 WBC (Bld) 25.8 % Normal 14.0-50.0 [facility] Comment on above: Performed By: #### 2 784975, 1108709842, 0053150, 0241451, 7171995156, 804424887, 57191869 ####[address] [address] MCH (RBC) [Entitic mass] 23.3 pg Low 27.0-34.0 [facility] Comment on above: Performed By: #### 2 750438, 7666183615, 7914076, 6855070, 7737186583, 508779170, 33844283 ####[address] [address] MCHC (RBC) [Mass/Vol] 31.6 g/dL Normal 31.4-36.0 [facility] Comment on above: Performed By: #### 2 073963, 8499798370, 0676411, 3517773, 7228537560, 231128274, 70893968 ####[facility] [address] [place] [address] MCV (RBC) [Entitic vol] 73.6 fL Low 80.0-100.0 [facility] Comment on above: Performed By: #### 2 834492, 9202399427, 6430853, 3779029, 0006156677, 036278897, 10512275 ####[address] [place] [address] Microcytes Ql (Bld) PRESENT Invalid Interpretation Code [facility] Comment on above: Performed By: #### 2 056262, 3980793723, 9635178, 4396938, 3974518494, 495340778, 22707565 ####[address] [address] Monocytes (Bld) [#/Vol] 0.4 E9/L Normal 0.2-1.0 [facility] Comment on above: Performed By: #### 2 434516, 1857096756, 0339552, 0426751, 9649218889, 803150690, 22386550 ####[address] [address] Neutrophils (Bld) [#/Vol] 3.2 E9/L Normal 2.0-7.5 [facility] Comment on above: Performed By: #### 2 503067, [id number], 0058486, 8697822, 2505358693, 605805458, 58952417 ####[address] [address] Neutrophils/100 WBC (Bld) 63.4 % Normal 36.0-75.0 [facility] Comment on above: Performed By: #### 2 491610, 0510699123, 1525210, 4015775, 4686998517, 310786409, 34473834 ####[address] [address] Ovalocytes LM Ql (Bld) PRESENT Invalid Interpretation Code [facility] Comment on above: Performed By: #### 2 827378, 9519528920, 3829326, 1681831, 3591265815, 578530069, 22848956 ####[facility] [address]257 Platelet mean volume (Bld) [Entitic vol] 10.4 fL Normal 6.4-10.8 [facility] Comment on above: Performed By: #### 2 232396, 7579315097, 1277469, 9601311, 0263598702, 712057608, 51241698 ####[address] [place] [address] Platelets (Bld) [#/Vol] 137.0 E9/L Low 150.0-500.0 [facility] Comment on above: Performed By: #### 2 691956, 9308508943, 0352670, 2976448, 0492219271, 571405468, 54811725 ####[address] [address] Poikilocytosis Auto Ql (Bld) PRESENT Invalid Interpretation Code [facility] Comment on above: Performed By: #### 2 485597, 5270427759, 1362110, 7922611, 7966608795, 821950956, 92137191 ####[address] [address] RBC (Bld) [#/Vol] 4.7 E12/L Normal 4.3-5.9 [facility] Comment on above: Performed By: #### 2 243809, 2153778286, 4577466, 0295096, 9878474057, 985480594, 52967678 ####[address] [address] WBC corrected for nucl RBC Auto (Bld) [#/Vol] 5.0 E9/L Normal 4.0-11.0 [facility] Comment on above: Performed By: #### 2 827062, 5189360130, 9407591, 6987043, 5615156813, 756391820, 89828386 ####[facility] [address] [place] [address] CHEMISTRYOrdered By: SYSTEM SYSTEM on 12-18-2023 Albumin [...] (Bld) [Mass fraction] 6.9 % High <=5.9% [facility] ChemAutoSS CMPon 12-18-2023 Albumin [Mass/Vol] 4.4 g/dL Normal 3.3-5.0 [facility] Comment on above: Performed By: #### 2 108430, 9811512355, 5142903, 8993852, 3530091347, 363856630, 97674945 ####[facility] [address] [place] [address] Albumin/Globulin (S) [Mass conc ratio] 2.6 High 1.1-2.2 [facility] Comment on above: Performed By: #### 2 133057, 9173646488, 2447074, 8266534, 5122521984, 064202721, 36412033 ####[facility] [address] [place] [address] ALP [Catalytic activity/Vol] 49 Int._Unit/L Normal 21-98 [facility] Comment on above: Performed By: #### 2 030720, 0212488322, 9547001, 0812876, 5551992588, 413670224, 26013527 ####[facility] [address] [place] [address] ALT No additional P-5'-P [Catalytic activity/Vol] 20 Int._Unit/L Normal 6-46 [facility] Comment on above: Performed By: #### 2 176868, 4094706503, 1352157, 9260149, 3698532450, 939829790, 74065764 ####[facility] [address] [place] [address] Anion gap [Moles/Vol] 13 mmol/L Normal 6-16 [facility] [place] [facility] Comment on above: Performed By: #### 2 348415, 5213023440, 7061538, 1437614, 4763076716, 238514983, 61241018 ####[address] [place] [address] AST [Catalytic activity/Vol] 17 Int._Unit/L Normal 5-43 [facility] Comment on above: Performed By: #### 2 380200, 5962926198, 1359030, 6533418, 1551490436, 358945097, 59076844 ####[facility] [address] [place] [address] Bilirubin [Mass/Vol] 1.7 mg/dL High 0.0-1.1 [facility] Comment on above: Performed By: #### 2 536836, 5865393788, 2429780, 9939680, 4348854200, 440555702, 53927669 ####[facility] [address] [place] [address] Calcium [Mass/Vol] 9.3 mg/dL Normal 8.9-11.1 [facility] Comment on above: Performed By: #### 2 837676, 0273678996, 5108134, 4036965, 1711589091, 348583673, 76735491 ####[facility] [address] [place] [address] Chloride [Moles/Vol] 103 mmol/L Normal 101-111 [facility] Comment on above: Performed By: #### 2 677141, 8985163254, 3904122, 1013919, 9786862222, 316302361, 66901296 ####[facility] [address] [place] [address] CO2 [Moles/Vol] 26 mmol/L Normal 21-31 [facility] Comment on above: Performed By: #### 2 802134, 9273617420, 5934850, 6679351, 6336214843, 881734795, 19239913 ####[facility] [address] [place] [address] Creatinine [Mass/Vol] 0.8 mg/dL Normal 0.5-1.3 [facility] [place] [facility] Comment on above: Performed By: #### 2 238890, 0817703344, 5179009, 9937122, 7028837622, 869971142, 37625858 ####[address] [address] Globulin (S) [Mass/Vol] 1.7 g/dL Normal 1.4-4.0 [facility] Comment on above: Performed By: #### 2 932213, 1118397201, 7056829, 7120272, 8237580434, 578918445, 23560110 ####[address] [address] Glucose [Mass/Vol] 124 mg/dL Normal 55-199 [facility] Comment on above: Performed By: #### 2 275097, 3710363306, 8032957, 5184258, 0340772101, 950605185, 79877173 ####[address] [place] [address] Potassium [Moles/Vol] 4.0 mmol/L Normal 3.5-5.3 [facility] [place] [facility] Comment on above: Performed By: #### 2 113926, 9998783934, 7731673, 4152285, 8697687085, 619373719, 53671300 ####[address] [place] [address] Protein [Mass/Vol] 6.1 g/dL Normal 6.0-7.8 [facility] Comment on above: Performed By: #### 2 786935, 9529882758, 6168100, 7363496, 0370755878, 824654656, 20791858 ####[facility] [address] [place] [address] Sodium [Moles/Vol] 138 mmol/L Normal 135-145 [facility] Comment on above: Performed By: #### 2 058446, 7564365924, 3325559, 7626997, 3458711874, 700924824, 51696803 ####[facility] [address] [place] [address] Urea nitrogen [Mass/Vol] 8 mg/dL Normal 5-21 [facility] Comment on above: Performed By: #### 2 910227, 7667099906, 0439640, 8077018, 6371039043, 966865543, 71366241 ####[facility] [address] [place] [address] Urea nitrogen/Creatinine [Mass ratio] 10 No Units Normal 10-20 [facility] Comment on above: Performed By: #### 2 006990, 1264873630, 4289886, 1941707, 7261160658, 620409052, 82778969 ####[facility] [address] [place] [address] HEMATOLOGYOrdered By: SYSTEM SYSTEM on 12-18-2023 Anisocytosis [...] Normal 4.0 - 11.0 E9/L Remisol Heme [id number] 12-18-2023 HbA1c (Bld) [Mass fraction] 6.9 % High <=5.9 [facility] Comment on above: Performed By: #### 2 219478, 3117114011, 7219655, 8801816, 8502709924, 515023079, 60481308 ####[facility] [address] [place] [address] Lipid Panelon 12-18-2023 Cholesterol [Mass/Vol] 118 mg/dL Low 120-200 [facility] Comment on above: Performed By: #### 2 873736, 9637683291, 2953106, 4148075, 6792323085, 012953128, 21090504 ####[facility] [address] [place] [address] Cholesterol in HDL [Mass/Vol] 37 mg/dL Invalid Interpretation Code [facility] Comment on above: Result Comment: '>= 60 LOW RISK' '<= 40 HIGH RISK' Performed By: #### 2 037901, 7683956472, 5534985, 9312533, 5302976221, 321167587, 18380529 ####[facility] [address] [place] [address] Cholesterol in LDL [Mass/Vol] 72 mg/dL Normal <=129 [facility] Comment on above: Performed By: #### 2 159327, 0844676430, 4530094, 5668405, 9389814623, 994261694, 24083538 ####[facility] [address] [place] [address] Cholesterol in VLDL [Mass/Vol] 22 mg/dL Normal 7-40 [facility] Comment on above: Performed By: #### 2 630093, 5356206123, 1867430, 2767225, 3609432837, 451299953, 09533496 ####[facility] [address] [place] [address] Triglyceride [Mass/Vol] 112 mg/dL Normal <=149 [facility] Comment on above: Performed By: #### 2 964083, 4653186668, 0984656, 3119613, 8273013143, 127573186, 87932172 ####[facility] [address] [place] [address] Patient Educationon 12-18-19 24 Patient Education Cardiovascular [...] signals of the heart. ? An ambulatory miniature set builder to record your heart's activity for a [...] Trouble breathing. (more content not included)... Normal [facility] eGFRon 12-18-2023 eGFR 98 mL/min/1.73 m2 Normal >=59 [facility] Comment on above: Order Comment: Order added by Discern Expert. Performed By: #### 2 294928, 2790784977, 2037858, 2436880, 1092427811, 466134789, 51728633 ####[facility] [address] [place] [address] 36on 11-20-2023 36 Patient emailed me and asked if we had samples of Xarelto. Since he's on Medicare now it's very expensive for him. We haven't had a rep bring samples of Xarelto in about 1 year. I mentioned switching to Eliquis, since we do get samples of that. Ok to send RX for Eliquis 5mg bid? Please advise. Thanks! 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 Normal [facility] Pathology Noteon 09-27-2023 Pathology Note [id number] 4#1.00TIFF Normal [facility] Outside Colonoscopyon 2022 Outside Colonoscopy [id number] #1.00TIFF Normal [facility] Lab Reportson 09-21-2023 Lab Reports [id number] #1.00TIFF Normal [facility] Physician Referralon 023 Physician Referral [id number] #1.00TIFF [facility] Physician Referralon 023 Physician Referral [id number]# 1.00TIFF [facility] Consent for Procedure/Surger yon 08-30-2023 Consent for Procedure/Surgery [id number] 8#1.00TIFF [facility] Ambulatory Visit Summaryon 10-29-2022 Ambulatory Visit [...] Monday 8:00 AM EDT With: Where: [facility] Normal [address] [place] [address]- \.br\ Medications\.br \ What How Much When [...] BPH (benign prostatic hyperplasia)\.b r\ 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\.br\ Controlled type 2 diabetes mellitus without [...] for choosing us for your care.\.br\ \.br\ [facility] Ambulatory Visit Summaryon 10-16-2022 Ambulatory Visit Summary MARCELLE DEUTSCH :1960 Visit Date:08/16/2023 Ambulatory Visit Instructions Your Diagnosis Kidney stone Gross hematuria BPH (benign prostatic hyperplasia) Personal history of kidney stones Former smoker Family history of kidney cancer Tests Performed Urnls Dip Stick Auto w/o Microscopy POC 238[address] Your Care Team Attending Physician - Teo [...] Jose Luis THOMAS MD Where: General Surgery [facility] Invalid Interpretation Code [address] [place] [address]- \.br\ Monday 8:40 AM EDT \.br\ With: Ursula Love MD\.br\ Where: [facility] Patient Educationon 08-16-20 Patient Education Nephrology Dietary [...] Spinach (cooked), rhubarb, beets, sweet potatoes, and Norwegian chard. ? Peanuts. ? Potato chips, uzbek fries, and baked potatoes with skin on. ? Nuts and nut products. ? Chocolate. ? If you regularly take a diuretic medicine, make sure to eat at least 1 or 2 servings of fruits or vegetables that are high in potassium each day. These include: ? Avocado. ? Banana. ? Canadian, prune, carrot, or tomato juice. ? Baked [...] fish oil, or vitamin B6. ? Take yvzl-xgw-tcyewod and prescription medicines only as told by your health care provider. These include supplements. What foods should I limit? Limit your in (more content not included)... Normal [facility] Screenson 08-16-2023 Screens [id number] #1.00TIFF Normal [facility] Urology Office/Clinic Noteon 08-16-2023 Urology Office/Clinic Note [...] Modifications. -Increase fluid intake, 90oz/day, clear fluids, lemon/[place] 2. Gross hematuria (R31.0: Gross hematuria) CT [...] (benign prostatic (more content not included)... Normal [facility] Comment on above: Result Comment: Elec [...] No Oral contrast amount in ml's: 0 [facility] Consent for Treatmenton 10-2 Consent for Treatment [id number] #1.00TIFF [facility] Ambulatory Visit Summaryon 1 Ambulatory Visit [...] Jose Luis THOMAS MD Where: General Surgery [facility] Invalid Interpretation Code [address] [place] [address]- \.br\ Monday 8:40 AM EDT \.br\ With: Ursula Love MD\.br\ Where: [facility] Nurse Consultation Noteon Nurse Consultation Note Physical [...] influenza virus vaccine, inactivated 07/30/2018 Recorded Normal [facility] URINALYSISOrdered By: Isaiah Garcia on 08-04-2023 [...] PM) Normal Negative [facility] UA Auto SS [place].plasma/Lithiu m.RBC (Bld) [Mass ratio] 0-3 /HPF Normal [...] [facility] UA Auto SS Urobilinogen Qn (U) 0.8467972 {Denny'U}/dL Normal 0.0 - 1.0 EU/dL [facility] UA Auto SS WBC Auto Ql (U) Negative (08/04/23 2:10 PM) Normal Negative [facility] UA Auto SS WBC LM.HPF (Urine sed) [#/Area] 0-5 /HPF Normal 0-5/HPF [facility] UA Auto SS Urinalysison 08-04-2023 Bacteria LM Ql (Urine sed) TRACE Normal Trace [facility] Comment on above: Performed By: #### 1 [id number] ####[facility] [address] [place] [address] Bilirubin Ql (U) Negative Normal Negative [facility] Comment on above: Performed By: #### 1 0960456 ####[facility] [address] [place] [address] Clarity (U) CLEAR Normal Clear [facility] Comment on above: Performed By: #### 1 8662039 ####[facility] [address] [place] [address] Color (U) YELLOW Normal Yellow [facility] Comment on above: Performed By: #### 1 4885903 ####[facility] [address] [place] [address] Crystals LM Ql (Urine sed) Present Normal [facility] Comment on above: Performed By: #### 1 2171488 ####[address] [address] Epithelial cells.squamous LM.HPF (Urine sed) [#/Area] 0-2 Normal 0-2 [facility] Comment on above: Performed By: #### 1 7892418 ####[facility] [address] [place] [address] Glucose Test strip (U) [Mass/Vol] Negative Normal Negative [facility] Comment on above: Performed By: #### 1 6293462 ####[address] [address] Hemoglobin Ql (U) Negative Normal Negative [facility] Comment on above: Performed By: #### 1 1295156 ####[facility] [address] [place] [address] Ketones (U) [Mass/Vol] Negative Normal Negative [facility] Comment on above: Performed By: #### 1 4320415 ####[facility] [address] [place] [address] [place].plasma/Lith[place] m.RBC (Bld) [Mass ratio] 0-3 Normal 0-3 [facility] Comment on above: Performed By: #### 1 9984737 ####[facility] [address] [place] [address] Nitrite Ql (U) Negative Normal Negative [facility] Comment on above: Performed By: #### 1 1837859 ####[address] [address] pH (U) 6.0 [pH] Invalid Interpretation Code 5.0-9.0 [facility] Comment on above: Performed By: #### 1 8046140 ####[address] [address] Protein (U) [Mass/Vol] Negative Normal Negative [facility] Comment on above: Performed By: #### 1 0873156 ####[address] [address] Specific gravity (U) [Rel density] <=1.005 Invalid Interpretation Code 1.005-1.030 [facility] Comment on above: Performed By: #### 1 4872334 ####[address] [address] Type of Urine collection method Clean Catch Normal [facility] Comment on above: Performed By: #### 1 5705947 ####[address] [address] Urobilinogen Qn (U) 0.2 {Denny'U}/dL Normal 0.0-1.0 [facility] Comment on above: Performed By: #### 1 6978930 ####[address] [address] WBC Auto Ql (U) Negative Normal Negative [facility] Comment on above: Performed By: #### 1 8292532 ####[address] [address] WBC LM.HPF (Urine sed) [#/Area] 0-5 Normal 0-5 [facility] Comment on above: Performed By: #### 1 4931826 ####[address] [address] Physician Referralon 023 Physician Referral [id number] #1.00TIFF Normal [facility] Lab Reportson 08-02-2023 Lab Reports [id number] #1.00TIFF Normal [facility] Ambulatory Visit Summaryon 1 Ambulatory Visit Summary MARCELLE DEUTSCH :1960 Visit Date:07/19/2023 Ambulatory Visit Instructions Your Diagnosis BMI 28.0-28.9,adult Non-smoker Hematuria Kidney stone Left flank pain Dysuria Tests Performed Urnls Dip Stick Non-Auto w/o Micrscpy POC 46196 Your Care Team Attending Physician - Juan Antonio LIVINGSTON, Kaern Richard Primary Care Physician - Km NIELSON, [...] Appointments Monday 8:00 AM EDT With: Where: [facility] [address] [place] [address]- \.br\ Medications\.br \ What How Much When Why Instructions\.b r\ New tamsulosin (Flomax 0.4 mg Cap) 1 Capsules By Mouth Every day BMI 28.0-28.9,adult Non-smoker Hematuria Kidney stone Left flank pain Dysuria Pickup at [facility]/pharmacy #[id number]\.br\ Unchanged amlodipine (amLODIPine 5 mg Tab) By [...] day (in the evening)\.br\ Pharmacy Information\.br \ [facility]/pharmacy #[id number]: [address], [place] [id number] [phone]\.br\ Test Results\.br\ Urnls Dip Stick Non-Auto w/o Micrscpy POC 43195 (07/19/2023)\.b r\ Bilirubin Urine Dipstick - Negative\.br\ Blood Urine Dipstick - 3+ Large\.br\ Glucose Urine Dipstick - Negative\.br\ Ketones Urine Dipstick - Negative\.br\ Leukocytes Urine Dipstick - Negative\.br\ Nitrite Urine Dipstick - Negative\.br\ Protein Urine Dipstick - Negative\.br\ Specific [place] Urine Dipstick - <=1.005\.br\ Urine Appearance Urine Dipstick - Clear\.br\ Urine Color Urine Dipstick - Light yellow\.br\ Urobilinogen Urine Dipstick - Normal 0.2-1 EU/dl\.br\ pH Urine Dipstick - 7\.br\ Allergies\.br\ penicillins\.br \ Problems\.br\ Ongoing - Any problem that you are currently receiving treatment for.\.br\ BMI 28.0-28.9,adult \.br\ 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\.br\ Controlled type 2 diabetes mellitus without [...] Dyslipidemia\.b r\ Hypertension\.b r\ Metabolic syndrome\.br\ \.br\ [facility] Ambulatory Visit Summary MARCELLE DEUTSCH :1960 Visit Date:07/19/2023 Ambulatory Visit Instructions Your Diagnosis BMI 28.0-28.9,adult Non-smoker Hematuria Kidney stone Left flank pain Dysuria Tests Performed Urnls Dip Stick Non-Auto w/o Micrscpy POC 84683 Your Care Team Attending Physician - Karen [...] Monday 8:00 AM EDT With: Where: [facility] Normal [address] [place] [address]- \.br\ Medications\.br \ What How Much When Why Instructions\.b r\ New tamsulosin (Flomax 0.4 mg Cap) 1 Capsules By Mouth Every day BMI 28.0-28.9,adult Non-smoker Hematuria Kidney stone Left flank pain Dysuria Pickup at [facility]/pharmacy #[id number]\.br\ Unchanged amlodipine (amLODIPine 5 mg Tab) By [...] day (in the evening)\.br\ Pharmacy Information\.br \ [facility]/pharmacy #[id number]: [address], [place] [phone]\.br\ Test Results\.br\ Urnls Dip Stick Non-Auto w/o Micrscpy POC 85148 (07/19/2023)\.b r\ Bilirubin Urine Dipstick - Negative\.br\ Blood Urine Dipstick - 3+ Large\.br\ Glucose Urine Dipstick - Negative\.br\ Ketones Urine Dipstick - Negative\.br\ Leukocytes Urine Dipstick - Negative\.br\ Nitrite Urine Dipstick - Negative\.br\ Protein Urine Dipstick - Negative\.br\ Specific [place] Urine Dipstick - <=1.005\.br\ Urine Appearance Urine Dipstick - Clear\.br\ Urine Color Urine Dipstick - Light yellow\.br\ Urobilinogen Urine Dipstick - Normal 0.2-1 EU/dl\.br\ pH Urine Dipstick - 7\.br\ Allergies\.br\ penicillins\.br \ Problems\.br\ Ongoing - Any problem that you are currently receiving treatment for.\.br\ BMI 28.0-28.9,adult \.br\ 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 Hematuria (R31.9: Hematuria, unspecified) large blood in urinalysis in office. everything else negative Ordered: tamsulosin, 0.4 mg = 1 cap(s), Oral, Daily, # 10 cap(s), Refills(s) 0, Pharmacy: [facility]/pharmacy #[id number], 178, cm, 07/19/23 11:20:00 EDT, Height/Length Dosing, 89.2, kg, 07/19/23 11:20:00 EDT, Weight Dosing Urnls Dip Stick Non-Auto w/o Micrscpy POC 80238 3. Kidney stone (N20.0: Calculus of kidney) will order flomax. if symptoms worsen will order KUB Ordered: tamsulosin, 0.4 mg = 1 cap(s), Oral, Daily, # 10 cap(s), Refills(s) 0, Pharmacy: [facility]/pharmacy #[id number], 178, cm, 07/19/23 11:20:00 EDT, Height/Length Dosing, 89.2, kg, 07/19/23 11:20:00 EDT, Weight Dosing 4. Dysuria (R30.0: Dysuria) pt states the pain is improving Ordered: tamsulosin, 0.4 mg = 1 cap(s), Oral, Daily, # 10 cap(s), Refills(s) 0, Pharmacy: [facility]/pharmacy #[id number], 178, cm, 07/19/23 11:20:00 EDT, Height/Length Dosing, 89.2, kg, 07/19/23 11:20:00 EDT, Weight Dosing Urnls Dip Stick Non-Auto w/o Micrscpy POC 04759 5. Non-smoker (Z78.9: Other specified health status) continue not smoking Ordered: tamsulosin, 0.4 mg = 1 cap(s), Oral, Daily, # 10 cap(s), Refills(s) 0, Pharmacy: [facility]/pharmacy #6177, 178, cm, 07/19/23 11:20:00 EDT, Height/Length Dosing, 89.2, kg, 07/19/23 11:20:00 EDT, Weight Dosing Urnls Dip Stick Non-Auto w/o Micrscpy POC 36658 6. 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 Normal [facility] Comment on above: Result Comment: Elec tronically Signed By: Karen Deleon\.br\Date and Time Signed: 07/19/23 17:48 EDT PSA Free & Totalon 3 Free PSA/Total PSA [Mass fraction] UTC Abnormal >=25.0 [facility] Comment on above: Result Comment: Resu [...] SO, 1998; 279:1542-7 Performed By: #### 1 [id number], [id number] #### [facility] [address] [place] [address] Free PSA [Mass/Vol] <0.1 Invalid Interpretation Code [facility] Comment on above: Result Comment: The concentration of free PSA and total PSA determined with assays from different manufacturers can vary due to differences in assay methods and specificity. Values obtained with different beef grinder's assays cannot be used interchangeably. The methodology used to obtain this result was chemiluminescence using Tenisha Decisyon's Access Hybritech PSA reagent and Access Hybritech free PSA reagent. Performed By: #### 1 [id number] #### [facility] [address] [place] [address] Prostate specific Ag [Mass/Vol] 0.2 ng/mL Normal 0.1-3.5 [facility] Comment on above: Result Comment: The concentration of PSA determined by different manufacturers can vary due to differences in assay methods and reagent specificity. Values obtained from different assay methods cannot be used interchangeably. The methodology used for this result was chemiluminescence using Tenisha Decisyon's Access Hybritech PSA reagent. Performed By: #### 1 [id number], [id number] #### [facility] [address] [place] [address] CHEMISTRYOrdered By: Julien merida on 07-04-2023 Albumin DL <= 20 mg/L (U) [Mass/Vol] microgram/mL Normal 0.0 - 19.0 mcg/mL [facility] Remisol Albumin Elph (U) [Mass fraction] mg/dL Invalid Interpretation Code [facility] Remisol Creatinine (U) [Mass/Vol] 17.7 mg/dL Invalid Interpretation Code [facility] Remisol U Prot/Creat Ratio [facility] Invalid Interpretation Code 0.00 - 200.00 [facility] Remisol U Microalbon 07-04-2023 Albumin DL <= 20 mg/L (U) [Mass/Vol] mg/dL Normal 0.0-19.0 [facility] Comment on above: Performed By: #### 1 [id number] ####[facility] [address] [place] [address] U Protein/Creat Ratioon 06-16 Albumin Elph (U) [Mass fraction] <6.0 Invalid Interpretation Code [facility] Comment on above: Result Comment: The reference range and other method performance specifications have not been established for this test; results should be integrated into the clinical context for interpretation. Performed By: #### 1 [id number], [id number] ####[facility] [address] [place] [address] Creatinine (U) [Mass/Vol] 17.7 mg/dL Invalid Interpretation Code [facility] Comment on above: Result Comment: The reference range and other method performance specifications have not been established for this test; results should be integrated into the clinical context for interpretation. Performed By: #### 1 [id number], [id number] ####[facility] [address] [place] [address] U Prot/Creat Ratio [facility] Invalid Interpretation Code .00-200.00 [facility] Comment on above: Performed By: #### 1 [id number] ####[facility] [address] [place] [address] Ambulatory Visit Summaryon 0 07-03-2023 Ambulatory Visit [...] Appointments Monday 8:00 AM EDT With: Where: [place] [id number]- \.br\ Medications\.br \ What How Much When Instructions\.b r\ Changed omeprazole (omeprazole 20 mg Cap-DR) 1 Capsules By Mouth Every day Pickup at [facility]\.br\ Unchanged diltiazem (diltiazem 30 mg Tab) See [...] or concerns \.br\ Pharmacy Information\.br \ [facility]: [address] [place] [address] [phone]\.br\ Allergies\.br\ penicillins\.br \ Problems\.br\ Ongoing - Any problem that you are currently receiving treatment for.\.br\ BMI 28.0-28.9,adult \.br\ 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 Last Labs: [facility] he's unsure when no results in file [...] didn't feel it was a problem email [email or web address] must go on refill omeprazole to [facility] [employer] History of Present Illness - Here for [...] Daily, # 30 tab(s), Refills(s) 0, Pharmacy: [facility]/pharmacy #[id number] omeprazole, 20 mg = 1 cap(s), Oral, Daily, # 90 cap(s), Refills(s) 1, Pharmacy: [facility], 178, cm, 07/03/23 7:24:00 EDT, Height/Length Dosing, 90, kg, 07/03/23 7:24:00 EDT, Weight Dosing - Follow up in 6 months for Welcome to medicare. 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 Normal [facility] Comment on above: Result Comment: Elec tronically Signed By: Km NIELSON, Ursula Luis.br\Date and Time Signed: 07/03/23 07:50 EDT Formson 07-03-2023 Forms [id number] #1.00CD:127 Normal [facility] Forms [id number]# 1.00CD:127 Normal [facility] [id number] 07-03-2023 HbA1c (Bld) [Mass fraction] 6.8 % High <=5.9 [facility] Comment on above: Performed By: #### 1 [id number] #### [facility] [address] [place] [address] CBC AUTO DIFFon 01-04-2023 BASO # 0.1 103/ul Normal 0.0-0.1 [facility] Comment on above: Performed By: #### C BC #### [facility] [address] [place] [address] Dr. Lucia San Basophils/100 WBC (Bld) 1.0 % Normal 0.2-2.0 [facility] Comment on above: Performed By: #### C BC #### [facility] [address] [place] [address] Dr. Lucia San EO # 0.1 103/ul Normal 0.0-0.7 [facility] Comment on above: Performed By: #### C BC #### [facility] [address] [place] [address] Dr. Lucia San Eosinophils/100 WBC (Bld) 2.5 % Normal 0.9-7.0 [facility] Comment on above: Performed By: #### C BC #### [facility] [address] [place] [address] Dr. Lucia San Erythrocyte distribution width (RBC) [Ratio] 17.3 % Critically high 11.0-15.0 [facility] Comment on above: Performed By: #### C BC #### [facility] [address] [place] [address] Dr. Lucia San Hematocrit (Bld) [Volume fraction] 35.2 % Critically low 42.0-54.0 [facility] Comment on above: Performed By: #### C BC #### [facility] [address] [place] [address] Dr. Lucia San Hemoglobin (Bld) [Mass/Vol] 11.3 g/dL Critically low 14.0-18.0 [facility] Comment on above: Performed By: #### C BC #### [facility] [address] [place] [address] Dr. Lucia San IG # 0.02 10e3/ul Normal 0.00-0.03 [facility] Comment on above: Performed By: #### C BC #### [facility] [address] [place] [address] Dr. Lucia San IG % 0.4 % Normal 0.0-0.5 [facility] Comment on above: Performed By: #### C BC #### [facility] [address] [place] [address] Dr. Lucia San LYMPH # 1.6 103/ul Normal 1.2-3.8 [facility] Comment on above: Performed By: #### C BC #### [facility] [address] [place] [address] Dr. Lucia San Lymphocytes/100 WBC (Bld) 30.9 % Normal 20.5-60.0 [facility] Comment on above: Performed By: #### C BC #### [facility] [address] [place] [address] Dr. Lucia San MANUAL DIFF REQ NO Normal [facility] Comment on above: Performed By: #### C BC #### [facility] [address] [place] [address] Dr. Lucia San MCH (RBC) [Entitic mass] 23.9 pg Critically low 25.9-34.0 [facility] Comment on above: Performed By: #### C BC #### [facility] [address] [place] [address] Dr. Lucia San MCHC (RBC) [Mass/Vol] 32.1 g/dL Normal 29.9-35.2 [facility] Comment on above: Performed By: #### C BC #### [facility] [address] [place] [address] Dr. Lucia San MCV (RBC) [Entitic vol] 74.6 fL Critically low 80.0-94.0 [facility] Comment on above: Performed By: #### C BC #### [facility] [address] [place] [address] Dr. Lucia San MONO # 0.5 103/ul Normal 0.3-0.8 [facility] Comment on above: Performed By: #### C BC #### [facility] [address] [place] [address] Dr. Lucia San Monocytes/100 WBC (Bld) 9.1 % Normal 1.7-12.0 [facility] Comment on above: Performed By: #### C BC #### [facility] [address] [place] [address] Dr. Lucia San NEUT # 2.9 103/ul Normal 1.4-6.5 [facility] Comment on above: Performed By: #### C BC #### [facility] [address] [place] [address] Dr. Lucia San Neutrophils/100 WBC (Bld) 56.1 % Normal 43.0-75.0 [facility] Comment on above: Performed By: #### C BC #### [facility] [address] [place] [address] Dr. Lucia San Platelet mean volume (Bld) [Entitic vol] 11.6 fL Normal 9.5-13.5 [facility] Comment on above: Performed By: #### C BC #### [facility] [address] [place] [address] [address] Lucia San PLT 172 103/ul Normal 150-450 [facility] Comment on above: Performed By: #### C BC #### [facility] [address] [place], [place] [address] Dr. Lucia San RBC 4.72 106/ul Normal 4.70-6.10 [facility] Comment on above: Performed By: #### C BC #### [facility] [address] [place], [place] [address] Dr. Lucia San WBC 5.2 103/ul Normal 4.0-11.0 [facility] Comment on above: Performed By: #### C BC #### [facility] [address] [place] [id number] Lucia San ECHOCARDIO M/2D COMPLETEon 0 01-04-2023 ECHOCARDIO M/2D COMPLETE Patient: MARCELLE DEUTSCH Exam Date: 01/04/2023 : 1960 Gender:M Ordering : DR BLANKA GORE M.D. Admission #: [id number] Family : Order #: [id number] CLICK HERE TO VIEW EXAM ECHOCARDIOGRAM REPORT [...] Area (VTI): 3.28 cm2, 3.28 cm2 Deceleration [place]: 0.48 m/s2 Pressure Half-Time: 1.33 s Peak [...] [place] M.D. on 01/04/2023 at 15:00 Normal [facility] GLYCOHEMOGLOBIN A1Con 2022 ADA RECOMMENDATION SEE BELOW Normal [facility] Comment on above: Result Comment: ADA RECOMMENDED LIMIT 4.0 - 6.0 ADA THERAPEUTIC TARGET < 7.0 ACTION SUGGESTED > 7.0 Performed By: #### A 1C #### [facility] [address] [place] [address] Dr. Lucia San HbA1c (Bld) [Mass fraction] 6.9 % Critically high 4.5-6.2 [facility] Comment on above: Performed By: #### A 1C #### [facility] [address] [place] [address] Dr. Lucia San LIPID PROFILEon 01-04-2023 CHOL-HDL RATIO NORM SEE BELOW Normal [facility] Comment on above: Result Comment: 3.3 - 4.4 LOW RISK 4.4 - 7.1 AVERAGE RISK 7.1 - 11.0 MODERATE RISK >11.0 HIGH RISK Performed By: #### L IPID #### [facility] [address] [place] [address] [address] Lucia San Cholesterol [Mass/Vol] 140 mg/dL Normal <=200 [facility] Comment on above: Performed By: #### L IPID #### [facility] [address] [place] [address] Dr. Lucia San Cholesterol in HDL [Mass/Vol] 37 mg/dL Critically low 40-60 [facility] Comment on above: Performed By: #### L IPID #### [facility] [address] [place] [address] Dr. Lucia San Cholesterol in LDL [Mass/Vol] 80.2 mg/dL Normal [facility] Comment on above: Performed By: #### L IPID #### [facility] [address] [place] [address] [address] Lucia San Cholesterol.total/Cho lesterol in HDL [Mass ratio] 3.8 {ratio} Normal [facility] Comment on above: Performed By: #### L IPID #### [facility] [address] [place] [address] Dr. Lucia San HDL NORMAL > or = 60 mg/dl - LOW CARDIOVASCULAR RISK <40 mg/dl - HIGH CARDIOVASCULAR RISK Normal [facility] Comment on above: Performed By: #### L IPID #### [facility] [address] [place] [address] Dr. Lucia San LDL CALC NORMAL SEE BELOW Normal [facility] Comment on above: Result Comment: <100 mg/dl OPTIMAL 100 - 129 mg/dl NEAR OR ABOVE OPTIMAL 130 - 159 mg/dl BORDERLINE HIGH 160 - 189 mg/dl HIGH >190 mg/dl VERY HIGH Performed By: #### L IPID #### [facility] [address] [place] [address] Dr. Lucia San Triglyceride [Mass/Vol] 114 mg/dL Normal <=150 [facility] Comment on above: Performed By: #### L IPID #### [facility] [address] [place] [address] Dr. Lucia San VLDL CALC 22.8 mg/dL Normal [facility] Comment on above: Performed By: #### L IPID #### [facility] [address] [place] [address] Dr. Lucia San MICROALBUMIN, RAND URon 03-2 mALB 1.5 mg/L Normal <=30.0 [facility] Comment on above: Performed By: #### M ALBR #### [facility] [address] [place] [id number] Lucia San NM STRESS/REST MULTIon 01-04 NM STRESS/REST MULTI Patient: MARCELLE DEUTSCH Exam Date: 01/04/2023 : 1960 Gender:M Ordering : DR BLANKA GORE M.D. Admission #: [id number] Family : Order #: [id number] CLICK HERE TO VIEW EXAM RADIOLOGY REPORT [...] LOCATION: Basal inferior. Mid-anterior. Mid-inferior. Apical inferior. [place]. SIZE: Large (5 or more segments). SEVERITY: [...] MD on 01/04/2023 at 11:17 Normal [facility] PROF 14(COMP METB)on 023 Albumin [Mass/Vol] 4.1 g/dL Normal 3.4-5.[address] [facility] Comment on above: Performed By: #### C #### [facility] [address] [place] [address] Dr. Lucia San Albumin/Globulin [Mass ratio] 1.7 {ratio} Normal [facility] Comment on above: Performed By: #### C MP #### [facility] [address] [place] [address] Dr. Lucia San ALP [Catalytic activity/Vol] 51 U/L Normal 46-116 [facility] Comment on above: Performed By: #### C MP #### [facility] [address] [place] [address] Dr. Lucia San ALT [Catalytic activity/Vol] 49 U/L Normal 16-63 [facility] Comment on above: Performed By: #### C MP #### [facility] [address] [place] [address] Dr. Lucia San Anion gap [Moles/Vol] 16.6 mmol/L Normal [facility] Comment on above: Performed By: #### C MP #### [facility] [address] [place] [address] Dr. Lucia San AST [Catalytic activity/Vol] 28 U/L Normal 15-37 [facility] Comment on above: Performed By: #### C MP #### [facility] [address] [place] [address] Dr. Lucia San Bilirubin [Mass/Vol] 1.7 mg/dL Critically high 0.2-1.0 [facility] Comment on above: Performed By: #### C MP #### [facility] [address] [place] [address] Dr. Lucia San Calcium [Mass/Vol] 9.2 mg/dL Normal 8.5-10.[address] [facility] Comment on above: Performed By: #### C MP #### [facility] [address] [place] [address] Dr. Lucia San Chloride [Moles/Vol] 100 mmol/L Normal 98-107 [facility] Comment on above: Performed By: #### C MP #### [facility] [address] [place] [address] Dr. Lucia San CO2 [Moles/Vol] 25.9 mmol/L Normal 21.0-32.0 [facility] Comment on above: Performed By: #### C MP #### [facility] [address] [place] [address] Dr. Lucia San Creatinine [Mass/Vol] 1.03 mg/dL Normal 0.70-1.30 [facility] Comment on above: Performed By: #### C MP #### [facility] [address] [place] [address] [address] Lucia San EGFR-AF CHILEAN >60 Normal >=60 [facility] Comment on above: Performed By: #### C MP #### [facility] [address] [place] [address] Dr. Lucia San EGFR-NON AF CHILEAN >60 Normal >=60 [facility] Comment on above: Performed By: #### C MP #### [facility] [address] [place] [address] Dr. Lucia San Globulin (S) [Mass/Vol] 2.4 g/dL Normal [facility] Comment on above: Performed By: #### C MP #### [facility] [address] [place] [address] Dr. Lucia San Glucose [Mass/Vol] 151 mg/dL Normal [facility] Comment on above: Performed By: #### C MP #### [facility] [address] [place] [address] Dr. Lucia San Performed By: #### A 1C #### [facility] [address] [place] [address] Dr. Lucia San Potassium [Moles/Vol] 4.5 mmol/L Normal 3.5-5.1 [facility] Comment on above: Performed By: #### C MP #### [facility] [address] [place] [address] Dr. Lucia San Protein [Mass/Vol] 6.5 g/dL Normal 6.4-8.2 [facility] Comment on above: Performed By: #### C MP #### [facility] [address] [place] [address] Dr. Lucia San Sodium [Moles/Vol] 138 mmol/L Normal 136-[address] [facility] Comment on above: Performed By: #### C MP #### [facility] [address] [place] [address] [address] Lucia San Urea nitrogen [Mass/Vol] 13.0 mg/dL Normal 7.0-18.0 [facility] Comment on above: Performed By: #### C MP #### [facility] [address] [place] [address] [address] Lucia San Urea nitrogen/Creatinine [Mass ratio] 12.6 mg/mg Normal [facility] Comment on above: Performed By: #### C MP #### [facility] [address] [place] [address] [address] Lucia San CNOVon 02-03-2022 CNOV Office Visit (CARDMN) MARCELLE DEUTSCH ([id number]) 1960 M Date Time Provider Department 02/03/22 8:30 AM JANNET GONZALEZ During your visit today, we recorded the following information about you: Pulse Blood pressure Weight Height 60/minute 180/76 85.3 kg 1.765 m Jannet Gonzalez MD 02/03/2022 9:58 AM Signed [facility] [place] Emiliano Plascencia Department of Cardiovascular Medicine SECTION OF CARDIAC PACING and ELECTROPHYSIOLOGY OUTPATIENT VISIT DATE February 03, 2022 OUTPATIENT VISIT TYPE CONSULTATION PRIMARY CARE PHYSICIAN: Mark Browning DO [address] [place] [address] CHIEF COMPLAINT: PAF HISTORY OF PRESENT ILLNESS [...] he is in SR. He denies syncope. [id number] (HTN, CAD, DM) tolerating Xarelto PAST MEDICAL HISTORY Diagnosis Date - Atrial fibrillation (HCC) 2013 - CAD (coronary artery disease) 09/02/2014 - Diabetes mellitus (HCC) - Dyslipidemia - Hypertension - Metabolic syndrome PAST SURGICAL HISTORY Procedure Laterality Date - AFIB PVI W/COMPL EP STUDY 07/10/2017 - CARDIAC CATH 09/02/2014 RN ED of proximal RCA. 70% ostial D1. Preserved [...] Letter Text Normal [facility] Dermatopathologyon Dermatopathology [facility] D[facility] [address] [place] [id number] DERMATOPATHOLOGY REPORT Name:MARCELLE DEUTSCH Rec #. [id number] Location: [facility] Date of Procedure: 10/02/2020 Race: Unknown Date Received: 10/06/2020 /Sex: 1960 (Age: 60) / M Date Reported: 10/08/2020 Other: Submitting Physician:SONIA GREEN APRN, EXPERIMENTAL PREFLIGHT MECHANIC-C FINAL DIAGNOSIS A. SKIN, (R) NECK, [...] is a mayers piece of skin measuring 2x3d0kk in aggreg (small). The specimen is inked and embedded in toto. B: Received in formalin is a mayers piece of skin measuring [id number]. The specimen is inked and embedded in toto. ink/10/06/2020 Microscopic Description: A,B: Microscopic examination performed. Normal [facility] Comment on above: Performed By: #### D #### Dermatopathology Vital Signs Date Time Vital Sign Value Performing Clinician Facility 03-14-2024 10:16040 Body temperature 97.52 [degF] Ana Lingdick [facility] 03-14-2024 10:16-0400 Diastolic blood pressure 85 mm[Hg] Ana Spencer [facility] 03-14-2024 10:16-0400 Heart rate 59 /min Ana Lingke [facility] 03-14-2024 10:16-0400 Mean blood pressure 116 mm[Hg] Ana Spencer [facility] 03-14-2024 10:16-0400 Respiratory rate 16 /min Ana Spencer [facility] 03-14-2024 10:16-0400 SaO2% (BldA) [Mass fraction] 99 % Ana Spencer [facility] 03-14-2024 10:16-0400 Systolic blood pressure 179 mm[Hg] Ana Spencer [facility] 02-15-2024 13:10-0400 Blood Pressure Location Ana Spencer [facility] 02-15-2024 13:10-0400 Body temperature 98.06 [degF] Ana Spencer [facility] 02-15-2024 13:10-0400 Diastolic blood pressure 61 mm[Hg] Ana Spencer [facility] 02-15-2024 13:10-0400 Heart rate 62 /min Ana Spencer [facility] 02-15-2024 13:10-0400 Mean blood pressure 77 mm[Hg] Ana Lingke [facility] 02-15-2024 13:10-0400 Respiratory rate 16 /min Ana Lingke [facility] 02-15-2024 13:10-0400 SaO2% (BldA) [Mass fraction] 99 % Ana Lingke [facility] 02-15-2024 13:10-0400 Systolic blood pressure 108 mm[Hg] Ana Hubbardboske [facility] 02-08-2024 13:00-0400 Blood Pressure Location Ana Hubbardboske [facility] 02-08-2024 13:00-0400 Body temperature 98.24 [degF] Ana Lingke [facility] 02-08-2024 13:00-0400 Diastolic blood pressure 82 mm[Hg] nAa Hubbardboske [facility] 02-08-2024 13:00-0400 Heart rate 80 /min Ana Lingke [facility] 02-08-2024 13:00-0400 SaO2% (BldA) [Mass fraction] 100 % Ana Lingke [facility] 02-08-2024 13:00-0400 Systolic blood pressure 142 mm[Hg] Ana Lingke [facility] 01-25-2024 08:58-0400 Diastolic blood pressure 82 mm[Hg] Ana Lingke [facility] 01-25-2024 08:58-0400 Heart rate 65 /min Ana Lingke [facility] 01-25-2024 08:58-0400 Mean blood pressure 118 mm[Hg] Ana Hubbardboske [facility] 01-25-2024 08:58-0400 SaO2% (BldA) [Mass fraction] 99 % Ana Hubbardboske [facility] 01-25-2024 08:58-0400 Systolic blood pressure 190 mm[Hg] Ana Hubbardboske [facility] 08-16-2023 08:21-0400 Blood Pressure Location Shelley L[facility] 08-16-2023 08:21-0400 Diastolic blood pressure 83 mm[Hg] Shelley Lue [facility] 08-16-2023 08:21-0400 Heart rate 69 /min [facility] [facility] 08-16-2023 08:21-0400 Respiratory rate 16 /min Shelley Lue [facility] 08-16-2023 08:21-0400 Systolic blood pressure 166 mm[Hg] Shelley Lue [facility] Encounters Encounter Date Encounter Type Care Provider Facility Start: 07-12-2024 End: 07-12-2024 ambulatory [facility] Start: 07-04-2024 End: 07-04-2024 ambulatory Ana Spencer Facility[facility] Start: 07-04-2024 End: 07-04-2024 Patient encounter procedure Ana Spencer [facility] Start: 06-27-2024 End: 07-10-2024 Orders Only Jannet Gonzalez MD Work Phone: Cardiology Comment on above: Atrial fibrillation, unspecified type (HCC) (Primary Dx) Start: 2024 End: 2024 ambulatory Ursula Love Facility[facility] Start: 06-06-2024 End: 06-06-2024 ambulatory Ana Spencer Facility:[facility] Start: 06-06-2024 End: 06-06-2024 Patient encounter procedure Ana Spencer [facility] Start: 05-09-2024 End: 05-09-2024 ambulatory Ana Spencer Facility:[facility] Start: 05-09-2024 End: 05-09-2024 Patient encounter procedure Ana Spencer [facility] Start: 04-24-2024 End: 05-08-2024 ambulatory Ursula Love Facility:[facility] Start: 04-11-2024 End: 04-11-2024 ambulatory Ana Spencer Facility:[facility] Start: 04-11-2024 End: 04-11-2024 Patient encounter procedure Ana Spencer [facility] Start: 03-26-2024 End: 03-26-2024 ambulatory Ursula Love Facility:[facility] Start: 03-22-2024 End: 04-09-2024 ambulatory Ursula Love Facility:[facility] [place] [facility] Start: 03-14-2024 End: 03-14-2024 ambulatory Ana Spencer Facility:[facility] Start: 03-14-2024 End: 03-14-2024 Patient encounter procedure Ana Spencer [facility] Start: 03-12-2024 End: 03-12-2024 ambulatory Ana Spencer Facility:[facility] Start: 03-12-2024 End: 03-12-2024 Patient encounter procedure Ana Spencer [facility] Start: 02-15-2024 End: 02-15-2024 ambulatory Ana Spencer Facility:[facility] Start: 02-15-2024 End: 02-15-2024 Patient encounter procedure Ana Spencer [facility] Start: 02-08-2024 End: 02-08-2024 ambulatory Ana Spencer Facility:[facility] Start: 02-08-2024 End: 02-08-2024 Patient encounter procedure Ana Spencer [facility] Start: 02-01-2024 End: 02-01-2024 ambulatory Ana Spencer Facility:[facility] Start: 02-01-2024 End: 02-01-2024 Patient encounter procedure Ana Spencer [facility] Start: 01-25-2024 End: 02-07-2024 ambulatory Ursula Love Facility:[facility] Start: 01-25-2024 End: 01-25-2024 Patient encounter procedure Ana Spencer [facility] Start: 01-16-2024 End: 01-16-2024 ambulatory Bharathjose david Melton Facility:[facility] Start: 01-16-2024 End: 01-16-2024 Patient encounter procedure Bharathjose david hAujalulisylwia [facility] Start: 12-29-2023 End: 12-29-2023 ambulatory [facility] Start: 12-28-2023 End: 12-28-2023 ambulatory Ursula Love Facility:[facility] Start: 12-27-2023 End: 12-27-2023 ambulatory Ursula Love Facility:[facility] Start: 12-27-2023 End: 12-27-2023 Patient encounter procedure Ursula Love [facility] Start: 12-19-2023 ambulatory Ursula Love Facility :[id number] Start: 12-18-2023 End: 12-18-2023 Lab Drop off Ursula Love [facility] Start: 12-18-2023 End: 12-18-2023 ambulatory Ursula Love Facility:[facility] Start: 12-18-2023 End: 12-18-2023 ambulatory Ursula Love Facility:[facility] Start: 10-04-2023 End: 10-04-2023 ambulatory Jose Luis R NILL Facility: [facility] Start: 10-04-2023 End: 10-04-2023 Patient encounter procedure Jose Luis R NILL [facility] Nill/Said [facility] Start: 09-20-2023 End: 09-20-2023 ambulatory Jose Luis R YONIL Facility:[id number] Start: 08-29-2023 End: 08-29-2023 ambulatory Ursula Love Facility:[facility] Start: 08-16-2023 End: 08-16-2023 ambulatory Shelley Bruce Facility:[facility] Start: 08-16-2023 End: 08-16-2023 Patient encounter procedure Shelley Bruce [facility] Start: 08-08-2023 ambulatory Jose Luis WILLIAM Facility:[facility] Start: 08-07-2023 End: 08-07-2023 ambulatory Ursula Love Facility:[facility] Start: 08-07-2023 End: 08-07-2023 Patient encounter procedure Ursula Love [facility] Start: 08-04-2023 End: 08-04-2023 Lab Drop off Karen L Juan Antonio [facility] Start: 08-04-2023 End: 08-04-2023 ambulatory RETAIL LOSS PREVENTION INVESTIGATOR Karen L Juan Antonio Facility:[facility] Start: 08-03-2023 ambulatory Jose Luis NILL Facility:[facility] Start: 07-19-2023 End: 07-19-2023 ambulatory RETAIL LOSS PREVENTION INVESTIGATOR Karen L Juan Antonio [facility] Start: 07-04-2023 End: 07-04-2023 ambulatory Ursula Love Facility:[facility] Start: 07-04-2023 End: 07-04-2023 Lab Drop off Ursula Love [facility] Start: 07-03-2023 End: 07-03-2023 Lab Drop off Ursula Love [facility] Start: 07-03-2023 End: 07-03-2023 ambulatory Ursula Love Facility:[facility] Start: 01-04-2023 End: 01-05-2023 ambulatory URSUAL LOVE Facility: Start: 04-01-2022 End: 04-01-2022 Off-Site Ursula Love [facility] Start: 03-30-2022 End: 03-30-2022 Off-Site Ursula Love [facility] Start: 02-03-2022 Orders Only Jannet Timmons [...] 9:15 AM EST Office Visit Cardiology [address] [id number] Jannet Gonzalez MD [address] [place] [address] Paroxysmal atrial fibrillation (HCC) [I48.0] Cardiology Comment on above: Paroxysmal atrial fi brillation (HCC) [I48.0] Start: 12-19-2024 End: 12-19-2024 ambulatory 12/19/2024 8:30 AM EST Results Only Cardiology [address] [phone] Paroxysmal atrial fibrillation (HCC) [I48.0] Cardiology Comment on above: Paroxysmal atrial fi brillation (HCC) [I48.0] Start: 12-17-2024 ambulatory Ambulatory Facility:[facility] Start: 06-16-2024 Covid-19 Vaccine ( season) Covid-19 Vaccine ( season) [facility] Start: 06-16-2024 Influenza vaccination Influenza Vacc ine (#1) [facility] Start: 10-16-2023 Advance Directive Discussion Advance Directive Discussion [facility] Start: 2023 Pneumococcal Vaccine : 65+ (1 of 1 - PCV) Pneumococcal Vaccine: 65+ (1 of 1 - PCV) [facility] Start: 07-04-2020 DIABET[facility] SCREEN [facility]EN [facility] Start: 07-04-2020 Diabetes Screening Diabetes Screenin g [facility] Start: 2018 RSV Vaccine (1 - 1-d ose 60+ series) RSV Vaccine (1 - 1-dose 60+ series) [facility] Start: 2013 PROSTATE CANCER SCREENING DISCUSSION PROSTATE CANCER SCREENING DISCUSSION [facility] Start: 2013 Prostate specific antigen measurement Prostate Cancer Screening Discussion [facility] Start: 2008 SHINGRIX VACCINE (1 of 2) SHINGRIX VACCINE (1 of 2) [facility] Start: 2003 COLOGUARD (FIT-DNA) COLOGUARD (FIT-D NA) [facility] Start: 2003 Colonoscopy COLONOSCOPY [facility] Start: 2003 COLORECTAL CANCER SCREENING COLORECTAL CANCER SCREENING [facility] Start: [address] COLONOGRAPHY [facility] Start: 2003 FECAL OCCULT BLOOD FECAL OCCULT BLOO D [facility] Start: 2003 Screening for malign ant neoplasm of colon [facility] Start: 2003 SIGMOIDOSCOPY SIGMOIDOSCOPY [facility] Start: 1993 Lipid panel Lipid Screening [facility] Start: 1993 LIPID SCREEN LIPID SCREEN [facility] Start: 1977 Urine microalbumin profile [facility] Start: 1976 ANNUAL PCP TEAM FORMAT PROOFREADER SARAH DISEASE VISIT ANNUAL PCP TEAM CHRONIC DISEASE VISIT [facility] Start: 1976 Anxiety Screening Anxiety Screening [facility] Start: 1976 BP CONTROLLED (<130/80) BP CONTROLLE D (<130/80) [facility] Start: 1976 Depression Screening Depression Scre ening [facility] Start: 1976 Hepatitis B surface antibody level LDL CHOLESTEROL [facility] Start: 1976 HEPATITIS C SCREENING HEPATITIS C SC [facility] Start: 1976 Hepatitis C screening Hepatitis C [facility] Start: 1976 HIV SCREENING HIV SCREENING [facility] Start: 1970 Adult depression screening assessment DEPRESSION SCREENING [facility] Start: 1958 Abdominal aortic aneurysm screening Abdominal Aortic Aneurysm Screening [facility] End: 02-03-2023 ECG COMPLETE ECG COMPLETE ECG Routine Persistent atrial fibrillation (HCC) 1 Occurrences starting 02/03/2022 until 02/03/2023 [facility] Work Phone: Comment on above: 1 Occurrences starti ng 02/03/2022 until 02/03/2023 End: 06-27-2025 ECG COMPLETE ECG COMPLETE ECG Routine Atrial fibrillation, unspecified type (HCC) 1 Occurrences starting 06/27/2024 until 06/27/2025 [facility] Work Phone: Comment on above: 1 Occurrences starti ng 06/27/2024 until 06/27/2025 [facility] Immunization Date Immunization Notes Care Provider Elliot rahman 08-31-2021 SARS-CoV-2 (COVID-19 ) Ad26 vaccine, recombinant Ursula Love [facility] Comment on above: Result Comment: 2021: [id number] 07-23-2021 influenza virus vaccine, unspecified formulation Ursula Love [facility] 12-23-2020 SARS-CoV-2 (COVID-19 ) Ad26 vaccine, recombinant Ursula Love [facility] 07-30-2018 influenza virus vaccine, unspecified formulation Ursula Love [facility] NEGATED: Highlighted row has not occurred!07-03-2023 influenza virus vaccine, unspecified formulation Ursula Love [facility] Payers Date Payer Category Payer Private Health Insurance [facility] AARP SUPPLEMENT [id number] 2023-Present [phone] [address] [place] [address] Indemnity [id number] 2023 Medicare MEDICARE MEDICAR E A AND B [id number] 2023-Present [phone] [place] [address] Medicare [id number] 2023 Medicare [id number] 2023 Unknown [id number] 2021 Unknown [employer]M BLUE ACCE SS PPO [id number] 2021-Present [phone] [address] [place] [address] O [id number]. [id number] 1959 Unknown [id number] 1958 Unknown [id number] 2.16.840.1.034288.3.579.2. 593 1958 Unknown [id number] 2.16.840.1.551861.3.579.2. 593 1958 Unknown [id number] 2.16.840.1.482088.3.579.2. 727 1958 Unknown [id number] 2.16.840.1.899221.3.579.2. 727 1958 Unknown [id number] 2.16.840.1.031430.3.579.2. 727 1958 Unknown [id number] 2.16.840.1.199965.3.579.2. 727 1958 Unknown [id number] 2.16.840.1.695860.3.579.2. 727 1958 Unknown [id number] 2.16.840.1.831682.3.579.2. 727 1958 Unknown [id number] 2.16.840.1.515215.3.579.2. 727 1958 Unknown [id number] 2.16.840.1.093263.3.579.2. 727 1958 Unknown [id number] 2.16.840.1.717049.3.579.2. 727 1958 Unknown [id number] 2.16.840.1.523219.3.579.2. 727 1958 Unknown [id number] 2.16.840.1.837745.3.579.2. 727 1958 Unknown [id number] 2.16.840.1.795996.3.579.2. 727 1958 Unknown [id number] 2.16.840.1.069753.3.579.2. 727 1958 Unknown [id number] 2.16.840.1.723140.3.579.2. 72 1958 Unknown [id number] 2.16.840.1.495681.3.579.2. 72 1958 Unknown [id number] 2.16.840.1.966597.3.579.2. 72 1958 Unknown [id number] 2.16.840.1.828731.3.579.2. 1958 Unknown [id number] 2.16.840.1.125804.3.579.2. 1958 Unknown [id number] 2.16.840.1.619424.3.579.2. 1958 Unknown [id number] 2.16.840.1.705900.3.579.2. 72 1958 Unknown [id number] 2.16.840.1.677859.3.579.2. 1958 Unknown [id number] 2.16.840.1.637328.3.579.2. 72 1958 Unknown [id number] 2.16.840.1.346416.3.579.2. 72 1958 Unknown [id number] 2.16.840.1.153842.3.579.2. 72 1958 Unknown [id number] 2.16.840.1.172716.3.579.2. 1958 Unknown [id number] 2.16.840.1.227525.3.579.2. 72 1958 Unknown [id number] 2.16.840.1.582179.3.579.2. 1958 Unknown [id number] 2.16.840.1.444760.3.579.2. 727 1958 Unknown [id number] 2.16.840.1.232675.3.579.2. 727 1958 Unknown [id number] 2.16.840.1.058063.3.579.2. 727 1958 Unknown [id number] 2.16.840.1.015063.3.579.2. 727 1958 Unknown [id number] 2.16.840.1.076163.3.579.2. 72 1958 Unknown [id number] 2.16.840.1.971435.3.579.2. 727 1958 Unknown [id number] 2.16.840.1.653374.3.579.2. 727 Social History Date Type Detail Facility Start: 08-25-2014 End: 03-26-2024 Tobacco smoking status NHIS Ex-smoker [facility] Comment on above: Quit in 2013 after M I quit age 53 (39 pack years) Start: [birth year]25-1957 End: 08-09-2014 History of tobacco use Current smoker [facility] Start: 10-25-1955 End: 08-09-2014 History of tobacco use Cigarette Smoker [facility] Start: 08-25-2014 End: 09-23-2020 Cigarettes smoked current (pack per day) - Reported 0.5 [facility] Start: 08-25-2014 Tobacco use and exposure Smokeless tobacco non-user [facility] Start: 02-03-2022 Alcohol intake Current drinke r of alcohol (finding) [facility] Start: 1960 Sex Assigned At Not on file [facility] Start: 01-24-2022 End: 02-03-2022 Exposure to SARS-CoV-2 (event) Not sure [facility] Tobacco smoking status No Smokin g Status Entered [facility] Start: 09-23-2020 End: 02-03-2022 Sex Assigned At Male [facility] Start: 04-01-2022 Tobacco smoking status Never s moked tobacco (finding) [facility] Tobacco smoking status Never [facility] Comment on above: Quit in [...] 08-16-2023 Functional Status N/A [facility] 04-01-2022 Functional Status Telehealth Patient [facility] Clinical Notes 02-03-2022 to 07-12-2024 RadiologyRadiologyRadiologyRadiologyRadiologyRadiologyLaboratoryRadiologyLaborat oryRadiologyLaboratoryRadiologyLaboratoryRadiologyRadiologyLaboratoryRadiologyLa boratoryRadiologyLaboratoryRadiology Note Date & Type Note Facility 07-12-2024 Note [facility] Subjective Marcelle Deutsch is a 64 [...] of an abnormal stress test that showed RN ED of the RCA with filling via left to right collaterals. He also had a 70% stenosis in a diagonal branch (the prior report mentions that it is not amenable to intervention). At that time left-ventricular gram showed normal left ventricular ejection fraction at 60%. 2. Paroxysmal atrial fibrillation, status post ablation in 2017 at the [facility]. He also had prior cardioversion. [...] and time. Psychiat (more content not included)... [facility] 01-25-2024 Hospital Discharge instructions Follow Up Care 01/25/2024 12:17:38 With:Tj BURTON, Ana Rivas, ONC Address: [address] [address] [phone] When: Unknown Comments:cbc, cmp, iron studies in 3mo and 6mofollow-up in 6mo with EXPERIMENTAL PREFLIGHT MECHANIC [facility] 12-29-2023 Note LDL > 70 therefore c ontinue lipitor 80 mg and will add zetia 10 mg daily Repeat lipid level before next appt in about 3-6 months [facility] 12-29-2023 Note Hypertension is typi jimmie stable with review of his home b/p log. Definitely has white coat syndrome Continue norvasc, clonidine, lisinopril and toprol [facility] 12-29-2023 Note Coronary artery dise ase is stable Continue GDMT- ASA, lipitor, imdur, toprol, and ranexa continue risk factor modifications- heart healthy diet, regular exercise as tolerated and continue all medications. [facility] 12-29-2023 Note Rate stable with top rol Anticoagulation with eliquis and denied any bleeding tendencies. [facility] 12-29-2023 Note Order ABD Aorta US i n 6 months to re-evalulate infrarenal AAA. 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 He also had a 70% stenosis in a diagonal branch (the prior report mentions that it is not amenable to intervention). At that time left-ventricular gram showed normal left ventricular ejection fraction at 60%. 2. Paroxysmal atrial fibrillation, status post ablation in 2017 at the [facility]. He also had prior cardioversion. [...] episodes of atrial fibrillation. He has a [employer] machine that he uses to transmit ECG. [...] 2 seconds. Neurol (more content not included)... [facility] 12-29-2023 Note Patient here for [...] All other systems reviewed and are negative. [facility] 12-29-2023 Note HTN management with goal b/p < 130/80 Monitor b/p at home Routine monitoring- will repeat Echocardiogram in 6 months with f/u with Dr Gore. D/W pt that he is to call 911 for sharp, tearing chest pain or back pain, call office for b/p consistently > 130/80 and he voiced understanding [facility] 08-29-2023 Note Chief Complaint consultation [...] 28.0-28.9,adult BPH (benign prostatic hyperplasia) 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 Controlled type 2 diabetes mellitus without [...] mg= 2 tab(s (more content not included)... [facility] Comment on above: Result Comment: Elec [...] include: ?8 oz (237 mL) of milk, ecuotth-ryylzmlqkkam-bhrfr milk, and calcium-fortifiedfruit juice. Calcium-fortified means that [...] ?Spinach (cooked), rhubarb, beets, sweet potatoes, and Norwegian chard. ?Peanuts. ?Potato chips, uzbek fries, and baked potatoes with skin on. ?Nuts and nut products. ?Chocolate. If you regularly take a diuretic medicine, make sure to eat at least 1 or 2 servings of fruits or vegetables that are high in potassium each day. These include: ?Avocado. ?Banana. ?Canadian, prune, carrot, or tomato juice. ?Baked potato. [...] magnesium, fish oil, or vitamin B6. Take kwwr-xto-aumiygu and prescription medicines only as told by [...] Casseroles. Pizza. Lasagna. Frozen meals. Potato chips. Greenlandic fries. The items listed above may not [...] provider. Document Revised: 06/13/2022 Document Reviewed: 06/13/2022 [employer] Patient Education 2022 [employer]. Follow Up Care 08/08/2023 13:37:21 With:Teo NIELSON, Shelley Sidhu, URL, URO Address: When: Unknown Comments:LANDRY [facility] 01-04-2023 Note CARDIAC STRESS TEST Requesting [...] and reported myocardial perfusion scan findings. [facility] 04-01-2022 Hospital Discharge instructions Patient Education [...] quitting, ask your health care provider. Take yisy-cww-awjttrq and prescription medicines only as told by [...] 10/07/2014 Document Revised: 05/27/2019 Document Reviewed: 05/03/2019 [employer] Patient Education 2020 [employer]. 04/01/2022 13:38:40 Hyperglycemia Hyperglycemia Hyperglycemia occurs when [...] or polycystic ovarian syndrome (PCOS). Being of Cambodian-, -Cambodian, /, or / descent. What are the [...] these instructions at home: General instructions Take hyfj-cdi-afutfnk and prescription medicines only as told by [...] 03/28/2002 Document Revised: 06/19/2017 Document Reviewed: 06/19/2017 [employer] Patient Education 2020 [employer]. 04/01/2022 13:38:33 Atrial Fibrillation Atrial Fibrillation Atrial [...] may be diagnosed with: Electrocardiogram (ECG). 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 This device records your heartbeats for 24 [...] 10/02/2006 Document Revised: 11/22/2018 Document Reviewed: 11/23/2018 [employer] Patient Education 2020 [employer]. 04/01/2022 13:38:29 Pinched Nerve Pinched Nerve A [...] work. Follow these instructions at home: Take rjxd-dzf-qbjofbu and prescription medicines only as told by [...] leg, or the back or neck. Take eslm-rij-zhixrzl and prescription medicines only as told by [...] 09/22/2003 Document Revised: 10/19/2018 Document Reviewed: 10/16/2018 [employer] Patient Education 2020 [employer] [facility] 02-03-2022 Note HNO ID: [id number] Author: Jannet Gonzalez MD Service: ? Author Type: Physician Type: Progress Notes Filed: 02/03/2022 9:58 AM Note Text: [facility] [place] Emiliano Plascencia Department of Cardiovascular Medicine SECTION OF CARDIAC PACING and ELECTROPHYSIOLOGY OUTPATIENT VISIT DATE February 03, 2022 OUTPATIENT VISIT TYPE CONSULTATION PRIMARY CARE PHYSICIAN: Mark Browning, [address] [place] [address] CHIEF COMPLAINT: PAF HISTORY OF PRESENT ILLNESS [...] he is in SR. He denies syncope. [id number] 3 (HTN, CAD, DM) tolerating Xarelto PAST MEDICAL HISTORY Diagnosis Date - Atrial fibrillation (HCC) 2013 - CAD (coronary artery disease) 09/02/2014 - Diabetes mellitus (HCC) - Dyslipidemia - Hypertension - Metabolic syndrome PAST SURGICAL HISTORY Procedure Laterality Date - AFIB PVI W/COMPL EP STUDY 07/10/2017 - CARDIAC CATH 09/02/2014 RN ED of proximal RCA. 70% ostial D1. Preserved [...] note No data available for this section [facility] [place] Evaluation + Plan note Future Appointments Appointment Date:01/03/2024 08:00:00 AM Scheduled Provider: Location:[facility] Appointment Type:FM Medicare Wellness Welcome Appointment Date:01/03/2024 08:40:00 AM Scheduled Provider:Ursula Love MD Location:[facility] Appointment Type: Open Diagnostic Tests PendingPSA Free & Total 07/03/23Microalbumin Level Urine 07/03/23U Protein/Creat Ratio 07/03/23 [facility] Evaluation + Plan note Future Appointments Appointment Date:01/03/2024 08:00:00 AM Scheduled Provider: Location:[facility] Appointment Type:FM Medicare Wellness Welcome Appointment Date:01/03/2024 08:40:00 AM Scheduled Provider:Ursula Love MD Location:[facility] Appointment Type: Open [facility] Evaluation + Plan note Future Appointments Appointment Date:08/29/2023 02:20:00 PM Scheduled Provider:Jose Luis THOMAS MD [facility] Appointment Type: Appointment Date:01/03/2024 08:00:00 AM Scheduled Provider: Location:[facility] App[facility]ment Type:[facility] Appoint[facility] Date:01/03/2024 08:40:00 AM Scheduled Provider:Ursula Love MD Location:[facility] Appointment Type:FM Open Diagnostic Tests PendingUrine Culture 08/04/23 Future Scheduled TestsCT Abdomen/Pelvis w/o Contrast 08/02/23 [facility] Evaluation + Plan note Future Appointments Appointment Date:08/29/2023 02:20:00 PM Scheduled Provider:Jose Luis THOMAS MD Location:[facility] Appointment Type:[facility] Appointment Date:01/03/2024 08:00:00 AM Scheduled Provider: Location:[facility] Appointment Type: Medicare Wellness Welcome Appointment Date:01/03/2024 08:40:00 AM Scheduled Provider:Ursula Love MD Location:[facility] Appointment Type: Open [facility] Evaluation + Plan note Future Appointments Appointment Date:08/29/2023 02:20:00 PM Scheduled Provider:Jose Luis THOMAS MD Location:[facility] Appointment Type:[facility] Appointment Date:01/03/2024 08:00:00 AM Scheduled Provider: Location:[facility] Appointment Type: Medicare Wellness Welcome Appointment Date:01/03/2024 08:40:00 AM Scheduled Provider:Ursula Love MD Location:[facility] Appointment Type: Open Future Scheduled TestsUS Aorta 08/08/24 [facility] Evaluation + Plan note Future Appointments Appointment Date:01/03/2024 08:00:00 AM Scheduled Provider: Location:[facility] Appointment Type:FM Medicare Wellness Welcome Appointment Date:01/03/2024 08:40:00 AM Scheduled Provider:Ursula oLve MD Location:[facility] Appointment Type: Open Future Scheduled TestsUS Aorta 08/08/24 [facility] [place] Evaluation + Plan note Future Appointments Appointment Date:12/17/2024 08:00:00 AM Scheduled Provider: Location:[facility] Appointment Type:FM Medicare Wellness Subsequent Diagnostic Tests PendingHCV Antibody RFX to Quant PCR 12/18/23 Future Scheduled TestsCT Chest, Low Dose Screening 12/18/23US Aorta 08/08/24 [facility] Evaluation + Plan note Future Appointments Appointment Date:03/25/2024 10:45:00 AM Scheduled Provider:Ursula Love MD Location:[facility] Appointment Type: Open Appointment Date:12/17/2024 08:00:00 AM Scheduled Provider: Location:[facility] Appointment Type: Medicare Wellness Subsequent Future Scheduled TestsUS Aorta 08/08/24 [facility] Evaluation + Plan note Future Appointments Appointment Date:01/25/2024 09:00:00 AM Scheduled Provider:Ana Kumar [facility] Type:ONC Office Visit New 45 (FT) Appointment Date:03/25/2024 10:45:00 AM Scheduled Provider:Ursula Love MD Location:[facility] Appointment Type: Open Appointment Date:12/17/2024 08:00:00 AM Scheduled Provider: Location:[facility] Appointment Type:FM Medicare Wellness Subsequent Diagnostic Tests PendingImmunofixation Serum 01/16/24Free K+L Lt Chains,Qn,S 01/16/24Protein Electrophoresis 01/16/24 Future Scheduled TestsUS Aorta 08/08/24 [facility] Evaluation + Plan [...] 10:45:00 AM Scheduled Provider:Ursula Love MD Location:[facility] Appointment Type: Open Appointment Date:12/17/2024 08:00:00 AM Scheduled Provider: Location:[facility] Appointment Type:FM Medicare Wellness Subsequent Future Scheduled TestsCBC w/ Auto Diff 03/21/24Comprehensive Metabolic Panel 03/21/24Ferritin 03/21/24Iron Level 03/21/24Iron Percent Saturation 03/21/24Transferrin 03/21/24US Aorta 08/08/24 [facility] Evaluation + Plan [...] 10:45:00 AM Scheduled Provider:Ursula Love MD Location:[facility] Appointment Type:FM Open Appointment Date:04/11/2024 02:00:00 [...] Appointment Date:12/17/2024 08:00:00 AM Scheduled Provider: Location:[facility] Appointment Type: Medicare Wellness Subsequent Appointment Date:12/19/2024 02:15:00 PM Scheduled Provider: [facility] Type:ONC Injection (FT) Appointment Date:01/16/2025 02:05:00 PM Scheduled Provider: [facility] Type:ONC Injection (FT) Appointment Date:02/13/2025 02:15:00 PM Scheduled Provider: [facility] Type:ONC Injection (FT) Appointment Date:03/13/2025 02:15:00 PM Scheduled Provider: [facility] App[facility] Type:ONC Injection (FT) Future Scheduled TestsCBC w/ Auto Diff 03/21/24Comprehensive Metabolic Panel 03/21/24Ferritin 03/21/24Iron Level 03/21/24Iron Percent Saturation 03/21/24Transferrin 03/21/24US Aorta 08/08/24 [facility] Evaluation + Plan note Future Appointments Appointment Date:02/15/2024 01:00:00 PM Scheduled Provider: [facility] App[facility] Type:ONC Injectafer (FT) Appointment Date:02/15/2024 02:00:00 PM Scheduled Provider: Location:.[facility] Appointment Type:ONC Injection (FT) Appointment Date:03/14/2024 10:15:00 AM Scheduled Provider:Ana Kumar Location:.[facility] Appointment Type:ONC Office Visit 30 (FT) Appointment Date:03/14/2024 10:45:00 AM Scheduled Provider: Location:.[facility] Appointment Type:ONC Injection (FT) Appointment Date:03/25/2024 10:45:00 AM Scheduled Provider:Ursula Love MD Location:[facility] Appointment Type:FM Open Appointment Date:04/11/2024 02:00:00 [...] Appointment Date:12/17/2024 08:00:00 AM Scheduled Provider: Location:[facility] Appointment Type: Medicare Wellness Subsequent Appointment [...] 03/21/24Iron Percent Saturation 03/21/24Transferrin 03/21/24US Aorta 08/08/24 [facility] Evaluation + Plan note Future Appointments Appointment Date:03/14/2024 10:15:00 AM Scheduled Provider:Ana Kumar Location:.[facility]COL[facility] Appointment Type:ONC Office Visit 30 (FT) Appointment Date:03/14/2024 10:45:00 AM Scheduled Provider: Location:.[facility]COL[facility] Appointment Type:ONC Injection (FT) Appointment Date:03/25/2024 10:45:00 AM Scheduled Provider:Ursula Love MD Location:[facility] Appointment Type: Open Appointment Date:04/11/2024 02:00:00 [...] Appointment Date:12/17/2024 08:00:00 AM Scheduled Provider: Location:[facility] Appointment Type: Medicare Wellness Subsequent Appointment [...] 03/11/24Iron Percent Saturation 03/11/24Transferrin 03/11/24US Aorta 08/08/24 [facility] Evaluation + Plan note Future Appointments Appointment Date:03/14/2024 10:15:00 AM Scheduled Provider:Ana Kumar Location:.[facility]COL[facility] Appointment Type:ONC Office Visit 30 (FT) Appointment Date:03/14/2024 10:45:00 AM Scheduled Provider: Location:.[facility]COL[facility] Appointment Type:ONC Injection (FT) Appointment Date:03/26/2024 10:45:00 AM Scheduled Provider:Ursula Love MD Location:[facility] Appointment Type:FM Open Appointment Date:04/11/2024 02:00:00 [...] Appointment Date:12/17/2024 08:00:00 AM Scheduled Provider: Location:[facility] Appointment Type: Medicare Wellness Subsequent Appointment Date:12/19/2024 02:15:00 PM Scheduled Provider: Location:[facility] Appointment Type:ONC Injection (FT) Appointment Date:01/16/2025 02:05:00 PM Scheduled Provider: Location:[facility] Appointment Type:ONC Injection (FT) Appointment Date:02/13/2025 02:15:00 PM Scheduled Provider: Location:[facility] Appointment Type:ONC Injection (FT) Appointment Date:03/13/2025 02:15:00 PM Scheduled Provider: Location:[facility] Appointment Type:ONC Injection (FT) Future Scheduled [facility] 08/08/24 [facility] Evaluation + Plan note Future Appointments Appointment Date:03/26/2024 10:45:00 AM Scheduled Provider:Ursula Love MD Location:[facility] Appointment Type: Open Appointment Date:04/11/2024 02:00:00 [...] (FT) Appointment Date:12/17/2024 08:00:00 AM Scheduled Provider: Location:[facility] Appointment Type: Medicare Wellness Subsequent Appointment Date:12/19/2024 02:15:00 PM Scheduled Provider: [facility] Type:ONC Injection (FT) Appointment Date:01/16/2025 02:05:00 PM Scheduled Provider: [facility] App[facility] Type:ONC Injection (FT) Appointment Date:02/13/2025 02:15:00 PM Scheduled Provider: [facility] App[facility] Type:ONC Injection (FT) Appointment Date:03/13/2025 02:15:00 PM Scheduled Provider: [facility] App[facility] Type:ONC Injection (FT) Future Scheduled TestsCBC w/ Auto Diff 06/07/24CBC w/ Auto Diff 09/07/24Comprehensive Metabolic Panel 06/07/24Comprehensive Metabolic Panel 09/07/24Ferritin 06/07/24Ferritin 09/07/24Iron Level 06/07/24Iron Level 09/07/24Iron Percent Saturation 06/07/24Iron Percent Saturation 09/07/24Transferrin 06/07/24Transferrin 09/07/24US Aorta 08/08/24 [facility] Evaluation + Plan note Future Appointments Appointment Date:05/09/2024 02:00:00 PM Scheduled Provider: [facility] App[facility] Type:ONC Injection (FT) Appointment Date:06/06/2024 02:00:00 PM Scheduled Provider: [facility] App[facility] Type:ONC Injection (FT) Appointment Date:07/04/2024 02:00:00 PM Scheduled Provider: Location:.ONCOLOG[facility] Appointment Type:ONC Injection (FT) Appointment Date:08/01/2024 02:00:00 PM Scheduled Provider: [facility] App[facility] Type:ONC Injection (FT) Appointment Date:08/29/2024 02:00:00 PM Scheduled Provider: [facility] App[facility] Type:ONC Injection (FT) Appointment Date:09/09/2024 11:00:00 AM Scheduled Provider:Ana Kumar Location:[facility] Appointment Type:ONC Office Visit 30 (FT) Appointment Date:09/26/2024 02:00:00 PM Scheduled Provider: Location:.ONCOLOG[facility] Appointment Type:ONC Injection (FT) Appointment Date:10/24/2024 02:15:00 PM Scheduled Provider: [facility] App[facility] Type:ONC Injection (FT) Appointment Date:11/21/2024 02:15:00 PM Scheduled Provider: [facility] Appoint[facility] Type:ONC Injection (FT) Appointment Date:12/17/2024 08:00:00 AM Scheduled Provider: Location:[facility] Appointment Type:FM Medicare Wellness Subsequent Appointment Date:12/19/2024 02:15:00 PM Scheduled Provider: [facility] Appoint[facility] Type:ONC Injection (FT) Appointment Date:01/16/2025 02:05:00 PM Scheduled Provider: [facility] Appoint[facility] Type:ONC Injection (FT) Appointment Date:02/13/2025 02:15:00 PM Scheduled Provider: [facility] Appoint[facility] Type:ONC Injection (FT) Appointment Date:03/13/2025 02:15:00 PM Scheduled Provider: [facility] Appoint[facility] Type:ONC Injection (FT) Future Scheduled TestsCBC w/ Auto Diff 06/07/24CBC w/ Auto Diff 09/07/24Comprehensive Metabolic Panel 06/07/24Comprehensive Metabolic Panel 09/07/24Ferritin 06/07/24Ferritin 09/07/24Iron Level 06/07/24Iron Level 09/07/24Iron Percent Saturation 06/07/24Iron Percent Saturation 09/07/24Transferrin 06/07/24Transferrin 09/07/24US Aorta 08/08/24 [facility] Evaluation + Plan note Future Appointments Appointment Date:06/06/2024 02:00:00 PM Scheduled Provider: Location:.ONCOLOGY Appointment Type:ONC Injection (FT) Appointment Date:07/04/2024 02:00:00 PM Scheduled Provider: [facility] Appoint[facility] Type:ONC Injection (FT) Appointment Date:08/01/2024 02:00:00 [...] Appointment Date:12/17/2024 08:00:00 AM Scheduled Provider: Location:[facility] Appointment Type:FM Medicare Wellness Subsequent Appointment [...] Percent Saturation 09/07/24Transferrin 06/07/24Transferrin 09/07/24US Aorta 08/08/24 [facility] Evaluation + Plan [...] Appointment Date:12/17/2024 08:00:00 AM Scheduled Provider: Location:[facility] Appointment Type:FM Medicare Wellness Subsequent Appointment [...] Percent Saturation 09/07/24Transferrin 06/07/24Transferrin 09/07/24US Aorta 08/08/24 [facility] Evaluation + Plan [...] Appointment Date:12/17/2024 08:00:00 AM Scheduled Provider: Location:[facility] Appointment Type:FM Medicare Wellness Subsequent Appointment [...] Percent Saturation 09/07/24Transferrin 06/07/24Transferrin 09/07/24US Aorta 08/08/24 [facility] Evaluation note Diagnosis Persistent atrial fibrillation (HCC)- Primary [facility]rial [facility] Atrial [facility], unspecified type (HCC)- [facility] No data available for this section [facility] Progress note No data available for this section [facility] Reason for referral (narrative)* Outpatient Procedure (Routine) - Authorized Specialty Diagnoses / Procedures Referred By Contac t Referred To Contact [facility] Diagnoses Persistent atrial fibrillation (HCC) Procedures ECG COMPLETE ECG ROUTINE ECG W/LEAST 12 LDS W/I&[place] [address] [place] [id number] [address] Referral ID Status Reason Start Date Expiration Date Visits Requested Visits Authorized [id number] Authorized Auto-Generat ed Referral 02/03/2022 02/03/2023 1 1 [facility] for referral (narrative)* Outpatient Procedure (Routine) - Authorized Specialty Diagnoses / Procedures Referred By Contac t Referred To Contact [facility] Diagnoses Atrial fibrillation, unspecified type (HCC) Procedures ECG COMPLETE ECG ROUTINE ECG W/LEAST 12 LDS W/I&R Jannet Gonzalez MD [address] [place] [address] [place] [address] Referral ID Status Reason Start Date Expiration Date Visits Requested Visits Authorized [id number] Authorized Auto-Generat ed Referral 06/27/2024 06/27/2025 1 1 [facility] Summary Purpose Family History No Family [...] FoundDocuments on File Type Date Recorded Patient Flatwork Tier Expl anation Advance Directive(s) 07/10/2017 5:38 AM [...] section and content) DATE CREATED AUTHOR 10/08/2020 [facility] DATE CREATED AUTHOR AUTHOR'S ORGANIZ ATION 02/05/2022 [facility] DATE CREATED AUTHOR AUTHOR'S ORGANIZ ATION 01/17/2023 [facility] DATE CREATED AUTHOR AUTHOR'S ORGANIZ ATION 03/12/2024 [facility] DATE CREATED AUTHOR AUTHOR'S ORGANIZ ATION 03/13/2024 [facility] DATE CREATED AUTHOR AUTHOR'S ORGANIZ ATION 06/30/2024 [facility] DATE CREATED AUTHOR AUTHOR'S ORGANIZ ATION 07/12/2024 [facility] DATE CREATED AUTHOR AUTHOR'S ORGANIZ ATION 07/19/2024 [facility] Source Comments (unrecognize d section and content) In the event this informatio n is protected by the Federal Confidentiality of Alcohol and Drug Abuse Patient Records regulations: The Federal rules restrict any use of the information to criminally investigate or prosecute any alcohol or drug abuse patient.[facility] the event this information is protected by the Federal Confidentiality of Alcohol and Drug Abuse Patient Records regulations: The Federal rules restrict any use of the information to criminally investigate or prosecute any alcohol or drug abuse patient.[facility] Care Teams (unrecognized sec tion and content) [employer] Relationship Specialty Start Date End Date Mark Browning PCP - General Family Practice 08/11/14 Jannet Gonzalze MD [address] [place] [address] Primary Staff Physician Cardiology 02/03/22 [employer] Relationship Specialty Start Date End Date Mark [...] BE BASED ON THE PRIMARY CLINICAL RECORDS. [facility] RAP Index [facility]. provides no warranty or guarantee of the accuracy or completeness of information in this document.
[2024-07-29 09:21] VITALS: BP 199/86; PULSE 80; TEMP 36.7; O2SAT 98
[2024-07-29 09:29] LABS: Glucometer 124 mg/dL (74-106)
[2024-07-29 10:08] VITALS: BP 217/107; BP 220/101; PULSE 85; PULSE 87; O2SAT 96; O2SAT 97
[2024-07-29] MEDS: BUPIVACAINE HCL 0.25% PF 25 MG/10 ML VIAL 5 ML INJ (10:09)
[2024-07-29] MEDS: IOHEXOL 240 MG/ML - 10 ML VIAL INJ (10:10)
[2024-07-29] MEDS: LIDOCAINE HCL 2% 400 MG/20 ML MDV 15 ML INJ (10:10)
[2024-07-29] MEDS: TRIAMCINOLONE ACETONIDE 40 MG/ML VIAL INJ (10:10)
--- NOTE | 2024-07-29 10:11 | W.PM.PROCNOT ---
Date of procedure: 07/29/24 Pre-op diagnosis: Pain due to bilateral sacroiliitis Post-op diagnosis: same as pre-op Procedure: Procedure: Bilateral sacroiliac joint injection Medications: Bupivacaine 0.25% 3cc, kenalog 40mg x2 After informed consent was obtained, the patient was brought to the medical procedure unit and placed in the prone position, when a timeout was completed verifying correct patient, procedure, site, positioning, implant, and/or special equipment.? The skin overlying the area was prepped and draped in standard sterile fashion using alcohol.? A 25-gauge needle was inserted towards the left sacroiliac joint under direct fluoroscopic imaging.? Needle tip was advanced until the joint was encountered.? We instilled a total of 2 mL of solution.? The same procedure was then completed on the right side.? Postoperatively needles were removed.? The patient tolerated the procedure well without complication.? The patient reported reduction in pain symptoms postoperatively. Anesthesia: Local Surgeon: Leonora Camacho Pathology: none sent Condition: stable Disposition: no change
== END 2024-07-29 10:15 | disposition home or self-care (01) ==
LOC: SURGOUT 08:54
PROVIDERS: PCP Family Medicine; Visit Provider Anesthesiology
DX: M46.1 Sacroiliitis, not elsewhere classified (principal)
CPT/HCPCS: 27096; 36415; 82948; J0665; J3301; Q9966

== ENCOUNTER 2024-08-08 08:50 | Outpatient (OUT) | payer MEDICARE, SELFPAY ==
--- OUTSIDE RECORDS SUMMARY | 2024-08-08 09:04 | XMS_ITS | CCD ---
Author Organization [facility] Care Team Providers Care Guyline Operator Name Role Phone Mark Browning Primary Care Provider Jannet Gonzalez MD Unavailable Ursula Love Primary Care Physician URSULA LOVE Admitting Unavailable URSULA LOVE Attending Unavailable URSULA LOVE Primary Care Unavailable URSULA LOVE Consulting Unavailable BAO, DR MOSCOSO Admitting Unavailable BAO, DR MOSCOSO Attending Unavailable URSULA LOVE Primary Care Unavailable PUTNEY, DR JANNET Parry Consulting Unavailable BAO, DR MOSCOSO Consulting Unavailable URUSLA LOVE Consulting Unavailable Ursula Love Primary Care Physician Mark Browning DO Primary Care Provider Jannet Gonzalez MD Unavailable Ana Spencer Attending Unavailable Ursula Love Attending Unavailable Ursula Love Attending Unavailable Ursula Love Attending Unavailable Ursula Love Attending Unavailable Ursula Love Attending Unavailable Ursula Love Attending Unavailable Ana Spencer Attending Unavailable Ana Spencer Attending Unavailable Ana Spencer Attending Unavailable Ana Spencer Attending Unavailable Ana Spencer Admitting Unavailable Ana Spencer Attending Unavailable Juan Antonio, MATHEMATICAL ENGINEER Karen L Admitting Unavailable Juan Antonio, MATHEMATICAL ENGINEER Karen L Attending Unavailable Ana Spencer Attending Unavailable Ana Spencer Attending Unavailable Ursula Love Attending Unavailable Ursula Love Attending Unavailable Ursula Love Attending Unavailable Bharath Melton Admitting Unavailable Bharath Melton Attending Unavailable DemboskeAna Attending Unavailable Demboske, Ana Evelyn Attending Unavailable Dembosdick, Ana Rivas Attending Unavailable Km, Ursula E. Referring Unavailable Ross, Ursula E. Attending Unavailable Ross, Ursula E. Referring Unavailable Ross, Ursula E. Admitting Unavailable Ross, Ursula E. Admitting Unavailable NILL, Jose Luis Boyd Attending Unavailable Km, Ursula E. Referring Unavailable NILL, Jose Luis Boyd Attending Unavailable NILL, Jose Luis Boyd Attending Unavailable Juan Antonio, MATHEMATICAL ENGINEERCarlo Richard Attending Unavailable LueShelley Attending Unavailable Ross, Ursula E. Referring Unavailable Ross, Ursula E. Attending Unavailable Ross, Ursula E. Attending Unavailable Ross, Ursula E. Attending Unavailable Ross, Ursula E. Referring Unavailable Ross, Ursual E. Admitting Unavailable Ross, Ursula E. Attending Unavailable Demboske, Naa Evelyn Admitting Unavailable Demboske, Ana Evelyn Attending Unavailable Km, Ursula E. Attending Unavailable Km, Ursula E. Admitting Unavailable BLANKA ERAZO Attending Unavailable GOPALPARISA Attending Unavailable Allergies Allergy Classification Reported Allergen(s) Allergy Type Date of Onset Reaction(s) Facility (20 sources) Penicillins; 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: [penicillins] Propensity to adverse reactions to drug 4 [facility]ckenna (disorder) [facility] (1 source) Penicillins Drug allergy (disorder) 4 [facility] (1 source) Penicillins Propensity to adverse reactions to drug 4 [facility] (2 sources) No Known Medication Allergies; 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: [No Known Medication Allergies] Propensity to adverse reactions (disorder) [facility] Repository Medications Current Medications Medication [...] MOUTH DAILY apixaban 5 mg oral tablet (14 sources) Factor Xa Inhibitor Start: 12-18-2023 take [...] day(s), # 90 tab(s), Refills(s) 0, Pharmacy: [facility]/pharmacy #[id number] Start Date: 04/01/22 Stop Date: 05/01/22 Status: Ordered Centrum Minis Men 50+ oral tablet (12 sources) Start: 12-28-2023 take 1 tablet by [...] beat (AFIB)). ezetimibe 10 mg oral tablet (5 sources) Dietary Cholesterol Absorption Inhibitor Start: 03-22-2024 [...] DAILY, # 90 tab(s), Refills(s) 1, Pharmacy: [facility]/pharmacy #[id number], 179, cm, 03/26/24 10:53:00 EDT, Height/Length Dosing, 86, kg, 03/26/24 10:53:00 EDT, Weight Dosing Start Date: 03/26/24 Status: Ordered Start: 04-01-2022 take 1 tablet by sendy th once daily lisinopril 10 mg Tab 10 mg = 1 tab(s), Oral, Daily, # 90 tab(s), Refills(s) 0 Start Date: 04/01/22 Status: Ordered Start: 04-01-2022 lisinopril 20 mg Tab See Instructions, TAKE 1 TABLET DAILY, # 90 tab(s), Refills(s) 1, Pharmacy: [facility], 178, cm, 12/18/23 13:19:00 EST, Height/Length Dosing, 89.1, kg, 12/18/23 13:19:00 EST, Weight Dosing Start Date: 12/19/23 Status: Ordered Comment on above: lisinopril 20 mg tab let TAKE ONE TABLET BY MOUTH ONCE DAILY meloxicam 15 mg oral tablet (1 source) Nonsteroidal Anti-inflammatory Drug Start: 2 take 1 tablet by mouth once daily meloxicam 15 mg oral tablet 15 mg = 1 tab(s), Oral, Daily, # 30 tab(s), Refills(s) 0, Pharmacy: [facility]/pharmacy #[id number] Start Date: 04/01/22 Status: Ordered metFORMIN hydrochloride 500 mg oral tablet (20 sources) Biguanide Start: 4 metformin 500 mg Tab See Instructions, TAKE 2 TABLETS TWICE A DAY, # 360 tab(s), Refills(s) 1, Pharmacy: [facility], 179, cm, 03/26/24 10:53:00 EDT, Height/Length Dosing, 86, kg, 03/26/24 10:53:00 EDT, Weight Dosing Start Date: 06/19/24 Status: Ordered Start: 07-06-2023 metformin 500 mg Tab See Instructions, TAKE 2 TABLETS TWICE A DAY, # 360 tab(s), Refills(s) 1, Pharmacy: [facility], 178, cm, 12/18/23 13:19:00 EST, Height/Length Dosing, 89.1, kg, 12/18/23 13:19:00 EST, Weight Dosing Start Date: 12/19/23 Status: Ordered Start: 04-25-2023 take 2 tablets by tn ut twice daily metformin 500 mg Tab 1,000 mg = 2 tab(s), Oral, BID, TAKE TWO TABLETS BY MOUTH TWICE A DAY, # 360 tab(s), Refills(s) 1, Pharmacy: [facility], 178, cm, 12/19/22 9:57:00 EST, Height/Length Dosing, 90.4, kg, 12/19/22 9:57:00 EST, Weight Dosing Start Date: 04/25/23 Status: Ordered Start: 04-01-2022 End: 09-28-2022 take 2 tablets by mouth twice daily metformin 500 mg ER Tab 1,000 mg = 2 tab(s), Oral, BID, X 90 day(s), # 360 tab(s), Refills(s) 1, Pharmacy: [facility] [...] DAILY, # 90 cap(s), Refills(s) 1, Pharmacy: [facility], 179, cm, 03/26/24 10:53:00 EDT, Height/Length Dosing, 86, kg, 03/26/24 10:53:00 EDT, Weight Dosing Start Date: 05/06/24 Status: Ordered Start: 11-20-2023 take 1 capsule by mo [facility] once daily omeprazole 20 mg Cap-DR 20 mg = 1 cap(s), Oral, Daily, # 90 cap(s), Refills(s) 1, Pharmacy: [facility], 178, cm, 08/29/23 14:28:00 EST, Height/Length Dosing, 90.8, kg, 08/29/23 14:28:00 EST, Weight Dosing Start Date: 11/20/23 Status: Ordered Start: 07-03-2023 take 1 capsule by mo [facility] once daily omeprazole 20 mg Cap-DR 20 mg = 1 cap(s), Oral, Daily, # 90 cap(s), Refills(s) 1, [facility]acy: [facility], 178, cm, 07/03/23 7:24:00 EDT, Height/Length Dosing, [...] Comment on above: Take 1 capsule by [facility] once daily. ProFe 180 mg oral capsule (8 sources) Start: 12-25-2023 take 1 capsule by mouth once daily ProFe 180 mg oral capsule 180 mg = 1 cap(s), Oral, Daily, # 100 cap(s), Refills(s) 0, Pharmacy: [facility]/pharmacy #[id number], 178, cm, 12/18/23 13:19:00 EST, Height/Length Dosing, 89.1, kg, 12/18/23 13:19:00 EST, Weight Dosing Start Date: 12/25/23 Status: Ordered 12 hr ranolazine 500 mg extended release oral tablet (20 sources) Anti-anginal Start: 12-19-2022 take 2 tablets [...] Daily, # 10 cap(s), Refills(s) 0, Pharmacy: [facility]/pharmacy #[id number], 178, cm, 07/19/23 11:20:00 EDT, [...] Coronary arteriosclerosis; 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: [Atherosclerotic heart disease of [place] coronary artery without angina pectoris] Onset: 4 10-02-2014 Chronic Deficiency and other anemia (12 sources) Microcytic anemia 12-28-2023 Episodic Deficiency and other anemia (2 sources) Iron deficiency anemia; 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: [Iron deficiency anemia, unspecified] Onset: 4 Episodic Diabetes mellitus without complication (20 sources) Type 2 diabetes mellitus without complications; 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: [Type 2 diabetes mellitus without complication] Onset: 3 Chronic Disorders of lipid metabolism (20 sources) Dyslipidemia; 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: [Hyperlipidemia, unspecified] Onset: 3 08-22-2014 Chronic Esophageal disorders (20 sources) Gastroesophageal reflux disease without esophagitis 07-03-2023 Chronic Essential hypertension (20 sources) Hypertensive disorder; 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: [Essential (primary) hypertension] Onset: 2 08-22-2014 Chronic Genitourinary symptoms and ill-defined conditions (15 sources) Blood in urine; 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: [Dysuria] Onset: 3 07-19-2023 Episodic Hemorrhoids (18 sources) Bleeding external hemorrhoids 08-02-2023 Episodic Hyperplasia of prostate (17 sources) Benign prostatic hypertrophy without outflow obstruction; 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: [Benign prostatic hyperplasia without lower urinary tract symptoms] Onset: 3 Chronic Nutritional deficiencies (1 source) Vitamin B deficiency; 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: [Deficiency of other specified B group vitamins] Onset: 4 Episodic Other and unspecified benign neoplasm (1 source) Benign neoplasm of rectum; 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: [Benign neoplasm of rectum] Onset: 3 Episodic Other and unspecified benign neoplasm (15 sources) Adenomatous polyp of rectum 10-04-2023 Episodic [...] unspecified] Onset: 4 Chronic Other gastrointestinal disorders (12 sources) Splenomegaly 12-28-2023 Episodic Other non-traumatic joint disorders (5 sources) Hip pain 03-26-2024 Episodic Other nutritional; endocrine; and metabolic disorders (20 sources) Metabolic syndrome X; 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: [Metabolic syndrome] 10-11-2021 Chronic Other nutritional; endocrine; and metabolic disorders (2 sources) Obesity 09-01-2014 Chronic Other nutritional; endocrine; and metabolic disorders (20 sources) Overweight in adulthood with body mass index of 25 or more but less than 30 12-19-2022 Episodic Other nutritional; endocrine; and metabolic disorders (15 sources) Overweight 08-29-2023 Episodic Residual codes; unclassified (17 sources) Family history of malignant neoplasm of kidney; 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: [Family history of malignant neoplasm of kidney] Onset: 3 Episodic Screening and history of mental health and substance abuse codes (17 sources) H/O: Disorder; 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: [Personal history of nicotine dependence] Onset: 3 Episodic Unclassified (20 sources) Non-smoker 12-19-2022 Unclassified (20 sources) Patient [...] sources) Long-term current use of anticoagulant; 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 Explained that patient would need to come to [facility] to have 24hr BP monitor placed. Options for returning would depend on when patient was coming to have it placed. Bonita was going to call and speak with patient and let me know. Normal [facility] Ambulatory Visit Summaryon 1 Ambulatory Visit Summary Ambulatory Visit Summary MARCELLE DOHERTY :1960 Visit Date:08/01/2024 Ambulatory Visit Instructions Your Diagnosis CAD in [place] artery Controlled type 2 diabetes mellitus without complication, without long-term current use of insulin GERD without esophagitis Longstanding persistent atrial fibrillation Mixed hyperlipidemia Primary hypertension Hip pain, bilateral BMI 25.0-25.9,adult Over weight Former smoker Pain in left hip These Are Your Goals Complications of CAD Avoided 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s: Review educational material - Done complete testing as directed per provider - Progressing keep follow up appointments as scheduled - Progressing maintain a healthy weight- avoid foods high in saturated fat and trans fat, sugar and sodium - Progressing Reduce A1c and prevent complications assoc with diabetes: 07/03/23 6.8%, 12/18/23 6.9% - Not met 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s: Complete testing as [...] - Progressing Report unrelieved symptoms to provider or to ED as needed - Progressing Review educational material - Done Take Medications as Prescribed - Progressing try to reduce or limit alcohol intake - Progressing Blood Pressure Maintained Within Therapeutic Range - [...] Love MD This Is Your Medications List Misc Prescription (Glucometer One Touch Ultra 2) Misc Prescription (Lancets) Misc Prescription (Lancets) Misc Prescription (One Touch Ultra 2 Test Strips) Misc Prescription (One Touch Ultra 2 Test Strips) amlodipine (amLODIPine 5 mg Tab) apixaban (Eliquis) [...] Tear of biceps tendon, Tonsillectomy. Discharge Vitals Temperature (Temporal Artery) 36.7 ?C Heart Rate (Peripheral) 64 Respiratory Rate 16 Blood Pressure 180/76 Height 179 cm Height 70 in Weight 82.9 kg Weight 182.38 lb BMI 25.87 What to do next Scheduled Follow-Up Appointments [...] Oncology Monday 8:00 AM EST With: Where: [address] [address] 2024 2:15 PM EST With: Where: [facility] 2024 2:05 PM EDT With: Where: [facility] 2024 9:15 AM EDT With: Km NIELSON, Ursula Porter Where: [address] [address]- 2024 2:15 PM EDT With: Where: [facility] 2024 2:15 PM EDT With: Where: [facility] Medications What How Much When Instructions Unchanged amlodipine (amLODIPine 5 mg Tab) By Mouth Every day Unchanged apixaban (Eliquis) 5 Milligram By Mouth 2 times a day Unchanged aspirin 81 Milligram By Mouth Every day Unchanged atorvastatin (atorvastatin 80 mg Tab) 1 Tablets By Mouth Every day Unchanged clonidine (cloNIDine 0.1 mg tab) By Mouth 2 times a day Unchanged diltiazem (diltiazem 30 mg Tab) See instructions take 1-2 orally as needed Unchanged ezetimibe (Zetia) 10 Milligram By Mouth Every day Unchanged isosorbide mononitrate (isosorbide mononitrate 120 mg ER Tab) 1 Tablets By Mouth Once a da (more content not included)... Normal [facility] Family Medicine Office/Clini c Noteon 08-01-2024 Family Medicine Office/Clinic Note Family Medicine Office/Clinic Note HPI Staff Marcelle is a 64 year old male presenting to discuss blood sugars Hgb A1C %: 6.9 % High (12/18/23 14:20:00) questions/concerns: on monday had kenalog 40mg X 2 injected in back sugars been elevated since. Was told the steroids can do this but if it ever got above [address] Has a thoracic and abd aneurysm, they are under the threshold and have stayed stable in the last year heart dr said if BP spikes it's not good, was elevated for his back injections and this is upsetting him. History of Present Illness - See staff HPI Review of Systems PHQ Score Initial Depression Screen Score: 0 SCORE Physical Exam Vitals & Measurements T: 36.7 ?C(Temporal Artery) HR: 64(Peripheral) RR: 16 BP: 124/76 SpO2: 99% HT: 70 in HT: 179 cm WT: 82.9 kg WT: 182.38 lb BMI: 25.87 General: alert, no acute distress ENMT: oral mucosa moist Cardiovascular:irreg ular rate and rhythm, normal peripheral perfusion Respiratory: Lungs clear to auscultation, respirations non labored Extremities: no deformity, no trauma Neurological: oriented x 4, level of consciousness appropriate for age, CN II-XII intact, motor strength equal & normal bilaterally, speech normal Abdomen: Soft, Non-tender, Non-distended, + Bowel sounds Assessment/Plan 1. CAD in [place] artery (I25.10: Atherosclerotic heart disease of [place] coronary artery without angina pectoris) Continue monitoring cardiac status with periodic evaluations and maintain current management plan. Reassurance provided regarding stability of cardiac health. Ordered: Body Mass Index (BMI) documented 3008F Current tobacco non-user 1036F Depression Screening Negative 3352F Most recent diastolic blood pressure <80 mm Hg 3078F Most recent systolic blood pressure >= 140 mm Hg 3077F Patient screen for fall risk: no falls in last year or 1 fall with no injury in last year 1101F 2. Controlled type 2 diabetes mellitus without complication, without long-term current use of insulin (E11.9: Type 2 diabetes mellitus without complications) Monitor fluctuations in glucose levels, particularly following steroid administration. Encourage continued physical activity to manage hyperglycemia episodes effectively. Discussed dietary impacts of specific foods on glucose levels. Ordered: Body Mass Index (BMI) documented 3008F Current tobacco non-user 1036F Depression Screening Negative 3352F Most recent diastolic blood pressure <80 mm Hg 3078F Most recent systolic blood pressure >= 140 mm Hg 3077F Patient screen for fall risk: no falls in last year or 1 fall with no injury in last year 1101F 3. GERD without esophagitis (K21.9: Gastro-esophageal reflux disease without esophagitis) Well controlled. Ordered: Body Mass Index (BMI) documented 3008F Current tobacco non-user 1036F Depression Screening Negative 3352F Most recent diastolic blood pressure <80 mm Hg 3078F Most recent systolic blood pressure >= 140 mm Hg 3077F Patient screen for fall risk: no falls in last year or 1 fall with no injury in last year 1101F 4. Longstanding persistent atrial fibrillation (I48.11: Longstanding persistent atrial fibrillation) Maintain current surveillance strategy for atrial fibrillation. Ordered: Body Mass Index (BMI) documented 3008F Current tobacco non-user 1036F Depression Screening Negative 3352F Most recent diastolic blood pressure <80 mm Hg 3078F Most recent systolic blood pressure >= 140 mm Hg 3077F Patient screen for fall risk: no falls in last year or 1 fall with no injury in last year 1101F 5. Mixed hyperlipidemia (E78.2: Mixed hyperlipidemia) Evaluate lipid profile and continue statin therapy for optimal control. Reinforce importance of dietary modifications. Ordered: Body Mass Index (BMI) documented 3008F Current tobacco non-user 1036F Depression Screening Negative 3352F Most recent diastolic blood pressure <80 mm Hg 3078F Most recent systolic blood pressure >= 140 mm Hg 3077F Patient screen for fall risk: no falls in last year or 1 fall with no injury in last year 1101F 6. Primary hypertension (I10: Essential (primary) hypertension) Continued home blood pressure monitoring recommended. Educate patient on appropriate lifestyle modifications. Consider adjusting antihypertensive therapy if home readings reflect sustained elevation. Ordered: Body Mass Index (BMI) documented 3008F Current tobacco non-user 1036F Depression Screening Negative 3352F Most recent diastolic blood pressure <80 mm Hg 3078F Most recent systolic blood pressure >= 140 mm Hg 3077F Patient screen for fall risk: no falls in last year or 1 fall with no injury in last year 1101F 7. Hip pain, bilateral (M25.551: Pain in right hip) Address with further assessment if conservative measures do not sustain relief. Current improvement noted post-injection suggests management is beneficial. Ordered: Body Mass Index (BMI) documented 3008F Current tobacco (more content not included)... Normal [facility] Comment on above: Result Comment: Elec tronically Signed By: Ursula Love MD\.br\Date and Time Signed: 08/01/24 11:31 EDT [facility] 07-31-20 [facility] Case Information Case Priority: None Programs: -- Referral Source: Legal Cashier Referral Reason: Disease management Case Type: Chronic Care Management Risk Score: -- Case Status: Active (December 28, 2023) Date Assigned: December 19, 2023 Assigned By: Christian Hernandez Date Enrolled: December 28, 2023 Assigned Primary Personnel: Christian Hernandez Assigned Secondary Personnel: -- Case Physician: Ursula Love MD Problems Ongoing AAA (abdominal aortic aneurysm) Aortic aneurysm BMI 28.0-28.9,adult BPH (benign prostatic hyperplasia) CAD in [place] artery Controlled type 2 diabetes mellitus without [...] Assessments 12/28/23 08:18:00 Result Name Value Comment [facility] Program Enrollment Verbally agreed to receive [facility] services CCM Written Consent Written consent in progress CCM Verbal Consent By Self 12/28/23 07:00:00 Result Name Value Comment HIPPA Verified Type of Contact In person at home CM Preferred Spoken Language Central African CM Preferred Written Language Central African Preferred Communication Mode Verbal Ability to Read/Write Able to read, Able to write Preferred Salutation Preferred Method of Contact Cell Cell Phone [phone] Best Time to Visit or Contact 7-10 am Best Day to Visit or Contact No preference Appointment Reminders Patient portal, Other secured messaging Preferred Way to Send PHI Patient portal Preferred Mailing Address [address] [place] [address], [address] Learning Style Pref Patient Verbal explanation Learning [...] Shares bed Support System Spouse/Significant other Primary Predatory Game Hunter of Home Medication Self Current DME at Home No Currently Receiving Skilled Services No Skilled Service Need (more content not included)... Normal [facility] 36on 07-19-[address] results from [...] week and get back to him. Dr. Erazo, do you know how we go about ordering this and what it all entails? Thanks. [facility] Orders Onlyon 07-15-2024 Orders Only [id number] Marcelle Doherty 1960 M Date Provider Department Center 07/15/2024 ALESHA BERNARDO [facility] Family History Problem Relation Age of Onset Coronary artery disease Father Atrial fibrillation Father Heart attack Brother Family Status - Relation Status Age at Father Brother Normal [facility] Office Visiton 07-12-2024 Follow-up visit [id number] Marcelle Doherty 1960 M Date Provider Department Center 07/12/2024 Yvonne-BLANKA ERAZO [facility]END[facility] Family History Problem Relation Age of Onset Coronary artery disease Father Atrial fibrillation Father Heart attack Brother Family Status - Relation Status Age at Father Brother Level of Service:20215 SC OFFICE/OUTPATIENT ESTABLISHED MOD MDM 30 MIN [facility] Orders Onlyon 07-11-2024 Orders Only [id number] Marcelle Doherty 1960 Date Provider Department Center 07/11/2024 [id number] MONSALVE WENDY [facility] Family History Problem Relation Age of Onset Coronary artery disease Father Atrial fibrillation Father Heart attack Brother Family Status - Relation Status Age at Father Brother [facility] 06-28-20 [facility] Case Information Case Priority: None Programs: -- Referral Source: Legal Cashier Referral Reason: Disease management Case Type: Chronic Care Management Risk Score: -- Case Status: Active (December 28, 2023) Date Assigned: December 19, 2023 Assigned By: Christian Hernandez Date Enrolled: December 28, 2023 Assigned Primary Personnel: Christian Hernandez Assigned Secondary Personnel: -- Case Physician: Ursula Love MD Ongoing AAA (abdominal aortic aneurysm) Aortic aneurysm BMI 28.0-28.9,adult BPH (benign prostatic hyperplasia) CAD in [place] artery Controlled type 2 diabetes mellitus without [...] CCM Program Enrollment Verbally agreed to receive [facility] services CCM Written Consent Written consent in progress CCM Verbal Consent By Self 12/28/23 07:00:00 Result Name Value Comment HIPPA Verified Type of Contact In person at home CM Preferred Spoken Language Central African CM Preferred Written Language Central African Preferred Communication Mode Verbal Ability to Read/Write Able to read, Able to write Preferred Salutation MrNelly Preferred Method of Contact Cell Cell Phone [phone] Best Time to Visit or Contact 7-10 am Best Day to Visit or Contact No preference Appointment Reminders Patient portal, Other secured messaging Preferred Way to Send PHI Patient portal Preferred Mailing Address [address] [place] [address], [id number] Learning Style Pref Patient Verbal explanation Learning [...] Shares bed Support System Spouse/Significant other Primary Predatory Game Hunter of Home Medication Self Current DME at Home No Currently Receiving Skilled Services No Skilled Service Need (more content not included)... Normal [facility] 06-11-20 [facility] Case Information Case Priority: None Programs: -- Referral Source: Legal Cashier Referral Reason: Disease management Case Type: Chronic Care Management Risk Score: -- Case Status: Active (December 28, 2023) Date Assigned: December 19, 2023 Assigned By: Christian Hernandez Date Enrolled: December 28, 2023 Assigned Primary Personnel: Christian Hernandez Assigned Secondary Personnel: -- Case Physician: Ursula Love MD Ongoing AAA (abdominal aortic aneurysm) Aortic aneurysm BMI 28.0-28.9,adult BPH (benign prostatic hyperplasia) CAD in [place] artery Controlled type 2 diabetes mellitus without [...] Assessments 12/28/23 08:18:00 Result Name Value Comment [facility] Program Enrollment Verbally agreed to receive [facility] services CCM Written Consent Written consent in progress CCM Verbal Consent By Self 12/28/23 07:00:00 Result Name Value Comment HIPPA Verified Type of Contact In person at home CM Preferred Spoken Language Central African CM Preferred Written Language Central African Preferred Communication Mode Verbal Ability to Read/Write Able to read, Able to write Preferred Salutation MrNelly Preferred Method of Contact Cell Cell Phone [phone] Best Time to Visit or Contact 7-10 am Best Day to Visit or Contact No preference Appointment Reminders Patient portal, Other secured messaging Preferred Way to Send PHI Patient portal Preferred Mailing Address [address] [place] [address], [phone] Learning Style Pref Patient Verbal explanation Learning [...] Shares bed Support System Spouse/Significant other Primary Predatory Game Hunter of Home Medication Self Current DME at Home No Currently Receiving Skilled Services No Skilled Service Needs Anticipated No Barriers to Care None Home Barriers None (more content not included)... Normal [facility] 36on 06-04-2024 36 Regarding carotid duplex performed on 05/29/2024: MERVAT Kendrick MA Let them know less than 49% stenosis of both carotids- really very good- Continue all meds and we will see them next time Probably a repeat carotid in 1-3 years- unless symptoms Patient made aware via email. Normal [facility] 04-25-20 24 [facility] Case Information Case Priority: None Programs: -- Referral Source: Legal Cashier Referral Reason: Disease management Case Type: Chronic Care Management Risk Score: -- Case Status: Active (December 28, 2023) Date Assigned: December 19, 2023 Assigned By: Christian Hernandez Date Enrolled: December 28, 2023 Assigned Primary Personnel: Christian Hernandez Assigned Secondary Personnel: -- Case Physician: Km NIELSON, Ursula Leos Ongoing AAA (abdominal aortic aneurysm) Aortic aneurysm BMI 28.0-28.9,adult BPH (benign prostatic hyperplasia) CAD in [place] artery Controlled type 2 diabetes mellitus without [...] CCM Program Enrollment Verbally agreed to receive [facility] services CCM Written Consent Written consent in progress CCM Verbal Consent By Self 12/28/23 07:00:00 Result Name Value Comment HIPPA Verified Type of Contact In person at home CM Preferred Spoken Language Central African CM Preferred Written Language Central African Preferred Communication Mode Verbal Ability to Read/Write Able to read, Able to write Preferred Salutation Preferred Method of Contact Cell Cell Phone [phone] Best Time to Visit or Contact 7-10 am Best Day to Visit or Contact No preference Appointment Reminders Patient portal, Other secured messaging Preferred Way to Send PHI Patient portal Preferred Mailing Address [address] [place] [address], [phone] Learning Style Pref Patient Verbal explanation Learning [...] Shares bed Support System Spouse/Significant other Primary Predatory Game Hunter of Home Medication Self Current DME at Home No Currently Receiving Skilled Services No Skilled Service Needs Anticipated No Barriers to Care None Home Barriers None Employment Status Retired Financial Issues None Sources of Income Socia (more content not included)... Normal [facility] Ambulatory Visit Summaryon 0 03-26-2024 Ambulatory Visit Summary MARCELLE DOHERTY :1960 Visit Date:03/26/2024 Ambulatory Visit Instructions Your [...] Oncology Monday 8:00 AM EST With: Where: [facility]on 03-26-2024 Family [...] Daily, # 100 cap(s), Refills(s) 0, Pharmacy: [facility]/pharmacy #[id number], 178, cm, 12/18/23 13:19:00 EST, Height/Length Dosing, 89.1, kg, 12/18/23 13:19:00 EST, Weight Dosing lisinopril, See Instructions, TAKE 1 TABLET DAILY, # 90 tab(s), Refills(s) 1, Pharmacy: [facility]/pharmacy #[id number], 179, cm, 03/26/24 10:53:00 EDT, Height/Length Dosing, 86, kg, 03/26/24 10:53:00 EDT, Weight Dosing Follow-up No qualifying data available Problem List/Past Medical History Ongoing AAA (abdominal aortic aneurysm) Aortic aneurysm BMI 28.0-28.9,adult BPH (benign prostatic hyperplasia) CAD in [place] artery Controlled type 2 diabetes mellitus without [...] more than intended: No. Others hurt by dr (more content not included)... [facility] Comment on above: Result Comment: Elec tronically Signed By: Ursula Love MD\.br\Date and Time Signed: 03/26/24 16:51 EDT Physician Referralon 024 Physician Referral [id number] #1.00TIFF [facility] Population Healthon 03-22-20 24 Population Health Case Information Case Priority: None Programs: -- Referral Source: Pluck Separator Referral Reason: Disease management Case Type: Chronic Care Management Risk Score: -- Case Status: Active (December 28, 2023) Date Assigned: December 19, 2023 Assigned By: Christian Hernandez Date Enrolled: December 28, 2023 Assigned Primary Personnel: Christian Hernandez Assigned Secondary Personnel: -- Case Physician: Ursula Love MD Problems Ongoing AAA (abdominal aortic aneurysm) Aortic aneurysm BMI 28.0-28.9,adult BPH (benign prostatic hyperplasia) CAD in [place] artery Controlled type 2 diabetes mellitus without [...] CCM Program Enrollment Verbally agreed to receive [facility] services CCM Written Consent Written consent in progress CCM Verbal Consent By Self 12/28/23 07:00:00 Result Name Value Comment HIPPA Verified Type of Contact In person at home CM Preferred Spoken Language Central African CM Preferred Written Language Central African Preferred Communication Mode Verbal Ability to Read/Write Able to read, Able to write Preferred Salutation Preferred Method of Contact Cell Cell Phone [phone] Best Time to Visit or Contact 7-10 am Best Day to Visit or Contact No preference Appointment Reminders Patient portal, Other secured messaging Preferred Way to Send PHI Patient portal Preferred Mailing Address [address] [place] [address], [facility] Learning Style Pref Patient Verbal explanation [...] Shares bed Support System Spouse/Significant other Primary Predatory Game Hunter of Home Medication Self Current DME at Home No Currently Receiving Skilled Services No Skilled Service Needs Anticipated No Barriers to Care None Home Barriers None Employment Status Retired Financial Issues None Sources of Income Social Security Pat (more content not included)... Normal [facility] Consent for Treatmenton 02-15 Consent for Treatment [id number] #1.00TIFF [facility] Oncology Progress Noteon Oncology Progress Note Chief Complaint b12 Deficiency; no concerns blood pressure at home 111/62 Diagnoses 1. Iron deficiency anemia (D50.9: Iron deficiency anemia, unspecified) 2. Intestinal malabsorption (K90.9: Intestinal malabsorption, unspecified) 3. B12 deficiency (E53.8: Deficiency of other specified B group vitamins) Oncological History/ROS/PE/Asses sment and Plan Mr. Doherty is a 63 year old male former [...] a colonoscopy done in Sep 2023 at [facility] after positive Cologuard test. This showed a [...] Contact Information Tj NATHAN-PEMA, Ana Rivas, ONC [facility] [address] [place] [phone] Additional Instructions: cbc, cmp, iron studies in 3mo and 6mo follow-up in 6mo with [employer] Medications amLODIPine 5 mg Tab, Oral, Daily [...] (DoT), 100 (more content not included)... Normal [facility] CBC w/ Auto Diffon 4 Acanthocytes LM Ql (Bld) PRESENT Invalid Interpretation Code [facility] Comment on above: Performed By: #### 2 [id number] #### [facility] Laboratory [address] [place] [address] Anisocytosis Ql (Bld) PRESENT Invalid Interpretation Code [facility] Comment on above: Performed By: #### 2 [id number] #### [facility] [address] [place] [address] Basophils/100 WBC (Bld) 0.8 % Normal 0.0-2.0 [facility] Comment on above: Performed By: #### 2 [id number] #### [facility] [address] [place] [address] Basophils/Leukocytes Auto (Bld) [Pure # fraction] 0.0 E9/L Normal 0.0-0.2 [facility] Comment on above: Performed By: #### 2 [id number] #### [facility] [address] [place] [address] Eosinophils (Bld) [#/Vol] 0.2 E9/L Normal 0.0-0.5 [facility] Comment on above: Performed By: #### 2 344306 #### [facility] [address] [place] [address] Eosinophils/100 WBC (Bld) 3.7 % Normal 0.0-8.0 [facility] Comment on above: Performed By: #### 2 [id number] #### [facility] [address] [place] [address] Erythrocyte distribution width (RBC) [Ratio] 27.1 % High 10.9-14.2 [facility] Comment on above: Performed By: #### 2 800551 #### [facility] [address] [place] [address] Hematocrit (Bld) [Volume fraction] 40.0 % Normal 37.7-49.0 [facility] Comment on above: Performed By: #### 2 143777 #### [facility] [address] [place] [address] Hemoglobin (Bld) [Mass/Vol] 13.4 g/dL Low 13.5-17.5 [facility] Comment on above: Performed By: #### 2 377363 #### [facility] [address] [place] [address] Hypochromia Auto Ql (Bld) PRESENT Invalid Interpretation Code [facility] Comment on above: Performed By: #### 2 260444 #### [facility] [address] [place] [address] Lymphocytes (Bld) [#/Vol] 1.6 E9/L Normal 1.0-4.0 [facility] Comment on above: Performed By: #### 2 178139 #### [facility] [address] [place] [address] Lymphocytes/100 WBC (Bld) 32.5 % Normal 14.0-50.0 [facility] Comment on above: Performed By: #### 2 170963 #### [facility] [address] [place] [address] MCH (RBC) [Entitic mass] 27.3 pg Normal 27.0-34.0 [facility] Comment on above: Performed By: #### 2 755086 #### [facility] [address] [place] [address] MCHC (RBC) [Mass/Vol] 33.6 g/dL Normal 31.4-36.0 [facility] Comment on above: Performed By: #### 2 005582 #### [facility] [address] [place] [address] MCV (RBC) [Entitic vol] 81.4 fL Normal 80.0-100.0 [facility] Comment on above: Performed By: #### 2 053108 #### [facility] [address] [place] [address] Monocytes (Bld) [#/Vol] 0.4 E9/L Normal 0.2-1.0 [facility] Comment on above: Performed By: #### 2 641309 #### [facility] [address] [place] [address] Neutrophils (Bld) [#/Vol] 2.7 E9/L Normal 2.0-7.5 [facility] Comment on above: Performed By: #### 2 459463 #### [facility] [address] [place] [address] Neutrophils/100 WBC (Bld) 55.1 % Normal 36.0-75.0 [facility] Comment on above: Performed By: #### 2 487491 #### [facility] [address] [place] [address] Ovalocytes LM Ql (Bld) PRESENT Invalid Interpretation Code [facility] Comment on above: Performed By: #### 2 375600 #### [facility] [address] [place] [address] Platelet mean volume (Bld) [Entitic vol] 9.9 fL Normal 6.4-10.8 [facility] Comment on above: Performed By: #### 2 576756 #### [facility] [address] [place] [address] Platelets (Bld) [#/Vol] 116.0 E9/L Low 150.0-500.0 [facility] Comment on above: Performed By: #### 2 243098 #### [facility] [address] [place] [address] RBC (Bld) [#/Vol] 4.9 E12/L Normal 4.3-5.9 [facility] Comment on above: Performed By: #### 2 086508 #### [facility] [address] [place] [address] RBC size Nom (Bld) SEE MORPHOLOGY Invalid Interpretation Code [facility] Comment on above: Performed By: #### 2 214342 #### [facility] [address] [place] [address] WBC corrected for nucl RBC Auto (Bld) [#/Vol] 5.0 E9/L Normal 4.0-11.0 [facility] Comment on above: Performed By: #### 2 999405 #### [facility] [address] [place] [address] CHEMISTRYOrdered By: SYSTEM SYSTEM on 03-12-2024 Albumin [...] 03-12-2024 Albumin [Mass/Vol] 4.3 g/dL Normal 3.3-5.0 [facility] Comment on above: Performed By: #### 2 015147 #### [facility] [address] [place] [address] Albumin/Globulin (S) [Mass conc ratio] 2.3 High 1.1-2.2 [facility] Comment on above: Performed By: #### 2 810726 #### [facility] [address] [place] [address] ALP [Catalytic activity/Vol] 54 Int._Unit/L Normal 21-98 [facility] Comment on above: Performed By: #### 2 983290 #### [facility] [address] [place] [address] ALT No additional P-5'-P [Catalytic activity/Vol] 47 Int._Unit/L High 6-46 [facility] Comment on above: Performed By: #### 2 394876 #### [facility] [address] [place] [address] Anion gap [Moles/Vol] 12 mmol/L Normal 6-16 [facility] Comment on above: Performed By: #### 2 883399 #### [facility] [address] [place] [address] AST [Catalytic activity/Vol] 30 Int._Unit/L Normal 5-43 [facility] Comment on above: Performed By: #### 2 793988 #### [facility] [address] [place] [address] Bilirubin [Mass/Vol] 1.8 mg/dL High 0.0-1.1 [facility] Comment on above: Performed By: #### 2 312099 #### [facility] [address] [place] [address] Calcium [Mass/Vol] 9.1 mg/dL Normal 8.9-11.1 [facility] Comment on above: Performed By: #### 2 921007 #### [facility] [address] [place] [address] Chloride [Moles/Vol] 102 mmol/L Normal 101-111 [facility] Comment on above: Performed By: #### 2 452746 #### [facility] [address] [place] [address] CO2 [Moles/Vol] 26 mmol/L Normal 21-31 [facility] Comment on above: Performed By: #### 2 109897 #### [facility] [address] [place] [address] Creatinine [Mass/Vol] 0.8 mg/dL Normal 0.5-1.3 [facility] Comment on above: Performed By: #### 2 715679 #### [facility] [address] [place] [address] Globulin (S) [Mass/Vol] 1.9 g/dL Normal 1.4-4.0 [facility] Comment on above: Performed By: #### 2 004847 #### [facility] [address] [place] [address] Glucose [Mass/Vol] 153 mg/dL Normal 55-199 [facility] Comment on above: Performed By: #### 2 367572 #### [facility] [address] [place] [address] Potassium [Moles/Vol] 4.7 mmol/L Normal 3.5-5.3 [facility] Comment on above: Performed By: #### 2 582464 #### [facility] [address] [place] [address] Protein [Mass/Vol] 6.2 g/dL Normal 6.0-7.8 [facility] Comment on above: Performed By: #### 2 449565 #### [facility] [address] [place] [address] Sodium [Moles/Vol] 135 mmol/L Normal 135-145 [facility] Comment on above: Performed By: #### 2 727254 #### [facility] [address] [place] [address] Urea nitrogen [Mass/Vol] 9 mg/dL Normal 5-21 [facility] Comment on above: Performed By: #### 2 027015 #### [facility] [address] [place] [address] Urea nitrogen/Creatinine [Mass ratio] 11 No Units Normal 10-20 [facility] Comment on above: Performed By: #### 2 805671 #### [facility] [address] [place] [address] Consent for Treatmenton 02-14 Consent for Treatment [id number] #1.00TIFF Normal [facility] Ferritinon 03-12-2024 Ferritin [Mass/Vol] 179 ng/mL Normal 24-336 [facility] Comment on above: Performed By: #### 2 [id number] #### [facility] [address] [place] [address] HEMATOLOGYOrdered By: SYSTEM SYSTEM on 03-12-2024 Acanthocytes [...] 03-12-2024 Iron [Mass/Vol] 117 microgram/dL Normal 35-153 [facility] Comment on above: Performed By: #### 2 846779 #### [facility] [address] [place] [address] Iron Saturationon 03-12-2024 Iron binding capacity [Mass/Vol] 326 microgram/dL Normal 250-400 [facility] Comment on above: Performed By: #### 2 315273 #### [facility] [address] [place] [address] Iron saturation [Mass fraction] 36 % Normal 20-50 [facility] Comment on above: Performed By: #### 2 057917 #### [facility] [address] [place] [address] Transferrinon 03-12-2024 Transferrin [Mass/Vol] 233 mg/dL Normal 200-370 [facility] Comment on above: Performed By: #### 2 914766 #### [facility] [address] [place] [address] eGFRon 03-12-2024 eGFR 98 mL/min/1.73 m2 Normal >=59 [facility] Comment on above: Order Comment: Order added by Discern Expert. Performed By: #### 1 [id number] #### [facility] [address] [place] [address] Consent for Treatmenton Consent for Treatment [id number] #1.00TIFF [facility] Consent for Treatmenton 01-15 Consent for Treatment [id number] #1.00TIFF [facility] Consent for Treatmenton 01-14 Consent for Treatment [id number] #1.00TIFF [facility] Consenton 01-31-2024 Consent [id number]#1.00TIFF [facility] Outside Diabetes Eye Examon 01-31-2024 Outside Diabetes Eye Exam [id number] #1.00TIFF [facility] Population Healthon 01-26-20 [facility] Case Information Case Priority: None Programs: -- Referral Source: Pluck Separator Referral Reason: Disease management Case Type: Chronic Care Management Risk Score: -- Case Status: Active (December 28, 2023) Date Assigned: December 19, 2023 Assigned By: Christian Hernandez Date Enrolled: December 28, 2023 Assigned Primary Personnel: Christian Hernandez Assigned Secondary Personnel: -- Case Physician: Km NIELSON, Ursula Leos Ongoing AAA (abdominal aortic aneurysm) Aortic aneurysm BMI 28.0-28.9,adult BPH (benign prostatic hyperplasia) CAD in [place] artery Controlled type 2 diabetes mellitus without [...] CCM Program Enrollment Verbally agreed to receive [facility] services CCM Written Consent Written consent in progress CCM Verbal Consent By Self 12/28/23 07:00:00 Result Name Value Comment HIPPA Verified Type of Contact In person at home CM Preferred Spoken Language Central African CM Preferred Written Language Central African Preferred Communication Mode Verbal Ability to Read/Write Able to read, Able to write Preferred Salutation Preferred Method of Contact Cell Cell Phone [phone] Best Time to Visit or Contact 7-10 am Best Day to Visit or Contact No preference Appointment Reminders Patient portal, Other secured messaging Preferred Way to Send PHI Patient portal Preferred Mailing Address [address] [place] [address], [address] Learning Style Pref Patient Verbal explanation Learning [...] Shares bed Support System Spouse/Significant other Primary Predatory Game Hunter of Home Medication Self Current DME at Home No Currently Receiving Skilled Services No Skilled Service Needs Anticipated No Barriers to Care None Home Barriers None Employment Status Retired Financial Issues None Sources of Income Social Security Pat (more content not included)... Normal [facility] Consent for Treatmenton 01-14 Consent for Treatment [id number] #1.00TIFF Normal [facility] Oncology Progress Noteon Oncology Progress [...] Transferrin Oncological History/ROS/PE/Asses sment and Plan Mr. Doherty is a 63 year old male former [...] his nasa (more content not included)... Normal [facility] Free K+L Lt Chains,Qn,Son Immunoglobulin light chains.kappa.free (S) [Mass/Vol] 19.0 mg/L Invalid Interpretation Code 3.3-19.4 [facility] Comment on above: Performed By: #### 2 241783, 0697585, 4959590, 1437144, 1126352, 9169887, 9369965, [id number], [id number] ####[facility] [address] [place] [address] Immunoglobulin light chains.kappa.free/Imm unoglobulin light chains.lambda.free (S) [Mass ratio] 1.62 Invalid Interpretation Code 0.26-1.65 [facility] Comment on above: Result Comment: Perf ormed at: [facility] [address] [id number] PhD Nicole Fang Performed By: #### 2 647649, 9665203, 0118044, 7419724, 8839811, 8976365, 5705737, [id number], [id number] ####[facility] [address] [place] [address] Immunoglobulin light chains.lambda.free [Mass/Vol] 11.7 mg/L Invalid Interpretation Code 5.7-26.3 [facility] Comment on above: Performed By: #### 2 147158, 5816847, 4633762, 1498905, 8069025, 9797317, 2134501, [id number], [id number] ####[facility] [address] [place] [address] Immunofixation Serumon 01-16 IgA [Mass/Vol] 87 mg/dL Invalid Interpretation Code 61-437 [facility] Comment on above: Performed By: #### 2 633980, 8448649, 0278708, 9181534, 9572960, 9869946, 8423683, 97240676, 237551841 ####[facility] [address] [place] [address] IgG [Mass/Vol] 406 mg/dL Low 603-1613 [facility] Comment on above: Performed By: #### 2 052121, 4960547, 8556914, 1598778, 4431297, 3033144, 2419502, 96934653, 502952405 ####[facility] [address] [place] [address] IgM [Mass/Vol] 136 mg/dL Invalid Interpretation Code [facility] Comment on above: Result Comment: Perf ormed at: [facility] [address] [id number] PhD Nicole Fang Performed By: #### 2 156099, 7638823, 8595786, 4912107, 7713986, 7911602, 3500962, 26361244, 273650178 ####[facility] [address] [place] [address] Protein Fractions [Interp] Comment Invalid Interpretation Code [facility] Comment on above: Result Comment: No m onoclonality detected. Performed By: #### 2 490761, 8461632, 3473948, 8862372, 1537468, 5702946, 0559325, 32537958, 765522919 ####[facility] [address] [place] [address] SPEon 01-17-2024 Albumin [Mass/Vol] 3.6 g/dL Invalid Interpretation Code 2.9-4.4 [facility] Comment on above: Performed By: #### 2 076709, 6373125, 8781469, 2596241, 9539469, 3353813, 0489025, 83198641, 419088577 ####[facility] [address] [place] [address] Albumin/Globulin [Mass ratio] 1.8 {ratio} High 0.7-1.7 [facility] Comment on above: Performed By: #### 2 741740, 9821488, 9339000, 9144654, 5366270, 2478287, 1327909, 61082172, 934625309 ####[facility] [address] [place] [address] Alpha 1 globulin Elph [Mass/Vol] 0.2 g/dL Invalid Interpretation Code 0.0-0.4 [facility] Comment on above: Performed By: #### 2 163727, 8505177, 6881554, 1300254, 0351874, 0188924, 1028347, 06459092, 212205362 ####[address] [place] [address] Alpha 2 globulin Elph [Mass/Vol] 0.6 g/dL Invalid Interpretation Code 0.4-1.0 [facility] Comment on above: Performed By: #### 2 896740, 7452696, 2179123, 7472193, 2231574, 3836880, 5422226, 70796266, 897372359 ####[address] [address] Beta globulin Elph [Mass/Vol] 0.8 g/dL Invalid Interpretation Code 0.7-1.3 [facility] Comment on above: Performed By: #### 2 084967, 6414133, 8073370, 3467473, 8511731, 8537010, 7168896, 95691512, 992913519 ####[address] [address] Gamma globulin Elph [Mass/Vol] 0.4 g/dL Invalid Interpretation Code 0.4-1.8 [facility] Comment on above: Performed By: #### 2 083754, 3148243, 8663681, 5141073, 6047819, 8567515, 9034608, 65428843, 975315552 ####[address] [place] [address] Globulin (S) [Mass/Vol] 2.0 g/dL Low 2.2-3.9 [facility] Comment on above: Performed By: #### 2 051945, 0513553, 0462254, 4305073, 2681076, 2752856, 7069623, 40638554, 325121679 ####[address] [place] [address] Laboratory comment Harman (Report) Comment Invalid Interpretation Code [facility] Comment on above: Result Comment: Prot ein electrophoresis scan will follow via computer, mail, or band cutting machine operator delivery. Performed By: #### 2 607570, 1814550, 7994109, 6036901, 2759482, 4466912, 5064996, 20940445, 691307235 ####[facility] [address] [place] [address] Protein [Mass/Vol] 5.6 g/dL Low 6.0-8.5 [facility] Comment on above: Performed By: #### 2 092033, 9422172, 2940863, 4550788, 2878982, 1037905, 3802575, 04543325, 415336520 ####[facility] [address] [place] [address] Protein Fractions [Interp] Comment: Invalid Interpretation Code [facility] Comment on above: Result Comment: SPE shows decreased total protein. Performed at: [address] [id number] PhD Nicole Fang Performed By: #### 2 744642, 3272880, 9173421, 1396038, 5378624, 8725070, 6007465, 02334396, 126427098 ####[facility] [address] [place] [address] Protein.monoclonal Elph [Mass/Vol] Not Observed Invalid Interpretation Code Not Observed [facility] Comment on above: Performed By: #### 2 921552, 9020536, 8807177, 3954503, 9526161, 9504213, 8024484, 40123417, 490728852 ####[facility] [address] [place] [address] CHEMISTRYOrdered By: SYSTEM SYSTEM on 01-16-2024 Cobalamin [...] for Treatmenton Consent for Treatment [id number] #1.00TIFF Normal [facility] Ferritinon 01-16-2024 Ferritin [Mass/Vol] 8 ng/mL Low 24-336 [facility] Comment on above: Performed By: #### 2 138430, 1779489, 5714752, 1438538, 5738164, 0227432, 4818015, 14449548, 320035796 ####[facility] [address] [place] [address] Folateon 01-16-2024 Folate [Mass/Vol] 13.0 ng/mL Normal >=6.7 [facility] Comment on above: Performed By: #### 2 370034, 8268566, 5538416, 8617282, 2374363, 9105889, 0780750, 83617780, 306761067 ####[facility] [address] [place] [address] Ironon 01-16-2024 Iron [Mass/Vol] 36 microgram/dL Normal 35-153 [facility] Comment on above: Performed By: #### 2 829878, 7409198, 2733095, 7522081, 3889470, 8498055, 9288426, 30494547, 599181108 #### [facility] Laboratory [address] [place] [address] Iron Saturationon 01-16-2024 Iron binding capacity [Mass/Vol] 473 microgram/dL High 250-400 [facility] Comment on above: Performed By: #### 2 325278, 5917848, 3352613, 4622389, 9792320, 5124479, 4304617, 04477387, 109512489 #### [facility] [address] [place] [address] Iron saturation [Mass fraction] 8 % Low 20-50 [facility] Comment on above: Performed By: #### 2 673460, 9394999, 6807216, 6368318, 1131148, 6707041, 0556950, 95108220, 082673286 #### [facility] [address] [place] [address] Transferrinon 01-16-2024 Transferrin [Mass/Vol] 338 mg/dL Normal 200-370 [facility] Comment on above: Performed By: #### 2 637993, 8767057, 3598864, 7906036, 9690095, 1164031, 6632152, 09009318, 960420303 #### [facility] [address] [place] [address] Vit B12on 01-16-2024 Cobalamin (Vitamin B12) [Mass/Vol] 213 pg/mL Normal 50-1500 [facility] Comment on above: Performed By: #### 2 929482, 9904572, 6888072, 3024880, 4772033, 3285743, 2682875, 73838865, 083443660 ####[facility] [address] [place] [address] 36on 01-10-2024 36 Message sent from patient to my email: Kg Mesa hope all is well, I forgot to ask if I???m 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 Some things I???ve read are telling me not to?? Marilyn, are you able to advise on this? Thanks. Normal [facility] Physician Referralon 024 Physician Referral [id number] #1.00TIFF Normal [facility] Office Visiton 12-29-2023 Follow-up visit [id number] Marcelle Doherty 1960 M Date Provider Department Center 12/29/2023 PARISA MUNGUIA WENDY Michaels Family History Problem Relation Age of Onset Coronary artery disease Father Atrial fibrillation Father Heart attack Brother Family Status - Relation Status Age at Father Brother Level of Service:33469 SC OFFICE/OUTPATIENT ESTABLISHED MOD MDM 30 MIN Normal [facility] ED Pat Eduon 12-28-2023 ED [facility] Cardiovascular Coronary Artery Disease, Male Coronary artery disease (CAD) is a condition in which the arteries that lead to the heart (coronary arteries) become narrow or blocked. The narrowing or blockage can lead to decreased blood flow to the heart. Prolonged reduced blood flow can cause a heart attack (myocardial infarction, or [place]). This condition may also be called coronary [...] these instructions at home: Medicines ? Take zgcv-zks-njsxaja and prescription medicines only as told by [...] use any (more content not included)... Normal [facility] 12-28-19 [facility][Note 3] Case Information Case Priority: None Programs: -- Referral Source: Pluck Separator Referral Reason: Disease management Case Type: Chronic Care Management Risk Score: -- Case Status: Active (December 28, 2023) Date Assigned: December 19, 2023 Assigned By: Christian Hernandez Date Enrolled: December 28, 2023 Assigned Primary Personnel: Christian Hernandez Assigned Secondary Personnel: -- Case Physician: -- Problems Ongoing AAA (abdominal aortic aneurysm) Aortic aneurysm BMI 28.0-28.9,adult BPH (benign prostatic hyperplasia) CAD in [place] artery Controlled type 2 diabetes mellitus without [...] Assessments 12/28/23 08:18:00 Result Name Value Comment [facility] Program Enrollment Verbally agreed to receive [facility] services [facility] Written Consent Written consent in progress [facility] Verbal Consent By Self 12/28/23 07:00:00 Result Name Value Comment HIPPA Verified Type of Contact In person at home CM Preferred Spoken Language Central African CM Preferred Written Language [place] African Preferred Communication Mode Verbal Ability to Read/Write Able to read, Able to write Preferred Salutation Mr. 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 Normal [facility] Population Health Problems Ongoing AAA (abdominal aortic aneurysm) Aortic aneurysm BMI 28.0-28.9,adult BPH (benign prostatic hyperplasia) CAD in [place] artery Controlled type 2 diabetes mellitus without [...] - Comments: - - 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 Frequency Status Prism Inspector Review educational material - - Not done [...] - Comments: - - 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 Frequency Status Prism Inspector Review educational material - - Not done [...] - Comments: - - 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 Frequency Status Prism Inspector Review educational material - - Not done [...] - Comments: - - 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 Frequency Status Prism Inspector Review educational material - - Not done [...] - - Not done - - Selene [facility] CT Chest, Low Dose Screening [...] Bourne MD Transcribed by: LUDWIN Technologist: MEKHI Morton [facility] Consent for Treatmenton 12-14 Consent for Treatment [id number] #1.00TIFF [facility] Office/Clini c Noteon 12-22-2023 [...] of clutter to prevent tripping and/or falling. [place] Advance Directives reviewed, patient has at home, [...] PCP visit. Will have labs completed with [facility]. Colonoscopy up to date, due for repeat [...] with CDC recommendation that everyone born from 2051[birth year]9991 get tested for Hepatitis C. This is [...] Pack Yea (more content not included)... Normal [facility] Comment on above: Result Comment: Elec tronically Signed By: Ursula Love MD\.br\Date and Time Signed: 12/22/23 11:50 EST\.br\Electronically Co-Signed By: Christian Hernandez.br\Date and Time Co-Signed: 12/18/23 15:00 EST .Interpretation:on 4 HCV Ab IA Ql Comment Invalid Interpretation Code [facility] Comment on above: Result Comment: Not infected with HCV unless early or acute infection is suspected (which may be delayed in an immunocompromised individual), or other evidence exists to indicate HCV infection. Performed at: [facility] [address] [place], [place] [id number] PhD Nicole Fang Performed By: #### 2 523351, 5914653638, 6580831, 9512118, 9866601100, 099695669, 84163835 ####[facility] [address] [place] [address] HCV Antibody RFX to Quant PC Kavin 12-20-2023 HCV IgG IA Ql Non-Reactive Invalid Interpretation Code Non Reactive [facility] Comment on above: Result Comment: Perf ormed at: [facility] [address] [place], [place] [id number] PhD Nicole Fang Performed By: #### 2 454514, 1017035804, 7883633, 5458637, 6099067877, 918481181, 69514331 ####[facility] [address] [place] [address] Screenson 12-19-2023 Screens [id number] #1.00TIFF Normal [facility] Ambulatory Visit Summaryon 0 12-18-2023 Ambulatory Visit Summary MARCELLE DOHERTY :1960 Visit Date:12/18/2023 Ambulatory Visit Instructions Your [...] 28.0-28.9,adult BPH (benign prostatic hyperplasia) CAD in [place] artery Controlled type 2 diabetes mellitus without [...] for choosing us for your care. Normal [facility] CBC w/ Auto Diffon 4 Anisocytosis Ql (Bld) PRESENT Invalid Interpretation Code [facility] Comment on above: Performed By: #### 2 578383, 5995064427, 5330853, 5259107, 8624181403, 287403177, 11760786 ####[facility] [address] [place] [address] Basophils/100 WBC (Bld) 0.6 % Normal 0.0-2.0 [facility] Comment on above: Performed By: #### 2 562900, 3517541675, 9887055, 7160585, 9165464402, 626605169, 15068895 ####[facility] [address] [place] [address] Basophils/Leukocytes Auto (Bld) [Pure # fraction] 0.0 E9/L Normal 0.0-0.2 [facility] Comment on above: Performed By: #### 2 874044, 3300829896, 1283538, 3078505, 1827334000, 417385190, 62437105 ####[facility] [address] [place] [address] Eosinophils (Bld) [#/Vol] 0.1 E9/L Normal 0.0-0.5 [facility] Comment on above: Performed By: #### 2 473749, 3413158180, 6123342, 9419351, 8939589796, 328368565, 74668942 ####[facility] [address] [place] [address] Eosinophils/100 WBC (Bld) 2.7 % Normal 0.0-8.0 [facility] Comment on above: Performed By: #### 2 196071, 4716294882, 4077682, 2031909, 2234386523, 471059768, 09484374 ####[address] [place] [address] Erythrocyte distribution width (RBC) [Ratio] 17.2 % High 10.9-14.2 [facility] Comment on above: Performed By: #### 2 607546, 5320255968, 0441029, 1999624, 8905011439, 172478341, 77140631 ####[address] [place] [address] Hematocrit (Bld) [Volume fraction] 34.4 % Low 37.7-49.0 [facility] Comment on above: Performed By: #### 2 793927, 1277877118, 8767989, 4061380, 6797487862, 957892793, 90303915 ####[address] [place] [address] Hemoglobin (Bld) [Mass/Vol] 10.9 g/dL Low 13.5-17.5 [facility] Comment on above: Performed By: #### 2 071019, 3957859564, 8711281, 6227717, 4092112702, 439678042, 62462661 ####[address] [address] Hypochromia Auto Ql (Bld) PRESENT Invalid Interpretation Code [facility] Comment on above: Performed By: #### 2 017685, 6203562008, 4649066, 0522709, 7158551911, 442679656, 27635315 ####[address] [address] Lymphocytes (Bld) [#/Vol] 1.3 E9/L Normal 1.0-4.0 [facility] Comment on above: Performed By: #### 2 629856, 9895820109, 5212427, 8565950, 8273578336, 384621369, 84140379 ####[address] [address] Lymphocytes/100 WBC (Bld) 25.8 % Normal 14.0-50.0 [facility] Comment on above: Performed By: #### 2 984159, 6217103840, 4935186, 7146760, 7453116663, 365963886, 68606992 ####[address] [place] [address] MCH (RBC) [Entitic mass] 23.3 pg Low 27.0-34.0 [facility] Comment on above: Performed By: #### 2 582621, 2475104947, 5250817, 1924041, 9273272902, 893379515, 44395966 ####[address] [address] MCHC (RBC) [Mass/Vol] 31.6 g/dL Normal 31.4-36.0 [facility] Comment on above: Performed By: #### 2 949621, 7179562052, 3388249, 1526581, 4887129565, 713489004, 24662323 ####[address] [address] MCV (RBC) [Entitic vol] 73.6 fL Low 80.0-100.0 [facility] Comment on above: Performed By: #### 2 389740, 7868331267, 9509503, 2843164, 6298020821, 023578120, 83311701 ####[address] [address] Microcytes Ql (Bld) PRESENT Invalid Interpretation Code [facility] Comment on above: Performed By: #### 2 425632, 4891026012, 4166263, 8016858, 5544330816, 133835522, 98629181 ####[address] [address] Monocytes (Bld) [#/Vol] 0.4 E9/L Normal 0.2-1.0 [facility] Comment on above: Performed By: #### 2 066474, 4355853703, 7038876, 2573568, 9824846614, 230891190, 80044245 ####[address] [address] Neutrophils (Bld) [#/Vol] 3.2 E9/L Normal 2.0-7.5 [facility] Comment on above: Performed By: #### 2 678870, 6647436021, 5478624, 5904848, 6757301510, 328997596, 74899326 ####[address] [place] [address] Neutrophils/100 WBC (Bld) 63.4 % Normal 36.0-75.0 [facility] Comment on above: Performed By: #### 2 700976, 0047253343, 3957519, 4330537, 6031112543, 609394502, 88364582 ####[address] [address] Ovalocytes LM Ql (Bld) PRESENT Invalid Interpretation Code [facility] Comment on above: Performed By: #### 2 128144, 6333961959, 3520229, 2697087, 6487219376, 808870724, 69939318 ####[address] [address] Platelet mean volume (Bld) [Entitic vol] 10.4 fL Normal 6.4-10.8 [facility] Comment on above: Performed By: #### 2 629735, 8175475194, 4784516, 0652560, 3711840148, 919403118, 84835279 ####[address] [address] Platelets (Bld) [#/Vol] 137.0 E9/L Low 150.0-500.0 [facility] Comment on above: Performed By: #### 2 044499, 5599820507, 7731743, 2854052, 0326866703, 033132200, 94616561 ####[address] [place] [address] Poikilocytosis Auto Ql (Bld) PRESENT Invalid Interpretation Code [facility] Comment on above: Performed By: #### 2 489881, 8547296812, 4883282, 3698100, 0523609937, 757607933, 95844736 ####[facility] [address] [place] [address] RBC (Bld) [#/Vol] 4.7 E12/L Normal 4.3-5.9 [facility] Comment on above: Performed By: #### 2 500321, 1553914655, 2909341, 2880100, 6285502144, 497272851, 43576000 ####[facility] [address] [place] [address] WBC corrected for nucl RBC Auto (Bld) [#/Vol] 5.0 E9/L Normal 4.0-11.0 [facility] Comment on above: Performed By: #### 2 401305, 2391284221, 8339468, 6416052, 3132897466, 280272059, 49739738 ####[facility] [address] [place] [address] CHEMISTRYOrdered By: SYSTEM SYSTEM on 12-18-2023 Albumin [...] (Bld) [Mass fraction] 6.9 % High <=5.9% [facility] ChemAutoSS CMPon 12-18-2023 Albumin [Mass/Vol] 4.4 g/dL Normal 3.3-5.0 [facility] Comment on above: Performed By: #### 2 285056, 0524633457, 7721207, 7028063, 7621369152, 012488346, 75342102 ####[facility] [address] [place] [address] Albumin/Globulin (S) [Mass conc ratio] 2.6 High 1.1-2.2 [facility] Comment on above: Performed By: #### 2 335108, 7508710062, 6982427, 6046528, 6987617575, 507368606, 03287966 ####[facility] [address] [place] [address] ALP [Catalytic activity/Vol] 49 Int._Unit/L Normal 21-98 [facility] Comment on above: Performed By: #### 2 717850, 0563763866, 9400277, 7181142, 2983712914, 049924629, 57637482 ####[facility] [address] [place] [address] ALT No additional P-5'-P [Catalytic activity/Vol] 20 Int._Unit/L Normal 6-46 [facility] Comment on above: Performed By: #### 2 089864, 7538750725, 9584618, 8481361, 4272209697, 909844839, 00225586 ####[facility] [address] [place] [address] Anion gap [Moles/Vol] 13 mmol/L Normal 6-16 [facility] Comment on above: Performed By: #### 2 849946, 8885561183, 8388483, 6806289, 4272470650, 743859301, 75157084 ####[facility] [address] [place] [address] AST [Catalytic activity/Vol] 17 Int._Unit/L Normal 5-43 [facility] Comment on above: Performed By: #### 2 318290, 3858349298, 4221757, 6410762, 2506305959, 577454593, 20687411 ####[facility] [address] [place] [address] Bilirubin [Mass/Vol] 1.7 mg/dL High 0.0-1.1 [facility] Comment on above: Performed By: #### 2 443564, 2588640021, 8137473, 4508874, 7126017676, 957335052, 06477669 ####[facility] [address] [place] [address] Calcium [Mass/Vol] 9.3 mg/dL Normal 8.9-11.1 [facility] Comment on above: Performed By: #### 2 382383, 8599010051, 4172285, 3832094, 2077266423, 755952778, 37478149 ####[facility] [address] [place] [address] Chloride [Moles/Vol] 103 mmol/L Normal 101-111 [facility] Comment on above: Performed By: #### 2 444895, 4167217037, 5463343, 8036405, 8585024028, 198744639, 61041105 ####[address] [address] CO2 [Moles/Vol] 26 mmol/L Normal 21-31 [facility] Comment on above: Performed By: #### 2 257039, 3255004456, 2132109, 8530006, 2722277996, 466933163, 58721301 ####[facility] [address] [place] [address] Creatinine [Mass/Vol] 0.8 mg/dL Normal 0.5-1.3 [facility] Comment on above: Performed By: #### 2 056595, 9244585612, 9839607, 0166501, 3390397665, 984231700, 18438746 ####[facility] [address] [place] [address] Globulin (S) [Mass/Vol] 1.7 g/dL Normal 1.4-4.0 [facility] Comment on above: Performed By: #### 2 188902, 2504707284, 9634649, 0288363, 3996782339, 645231045, 80793684 ####[facility] [address] [place] [address] Glucose [Mass/Vol] 124 mg/dL Normal 55-199 [facility] Comment on above: Performed By: #### 2 477547, 1741259229, 1324371, 7451996, [id number], [id number], [id number] ####[facility] [address] [place] [address] Potassium [Moles/Vol] 4.0 mmol/L Normal 3.5-5.3 [facility] Comment on above: Performed By: #### 2 687432, [id number], 2384608, 9887323, [id number], 982984788, 34831067 ####[facility] [address] [place] [address] Protein [Mass/Vol] 6.1 g/dL Normal 6.0-7.8 [facility] Comment on above: Performed By: #### 2 824155, [id number], 4162306, 8577787, 7413962243, 086326510, 50081002 ####[facility] [address] [place] [address] Sodium [Moles/Vol] 138 mmol/L Normal 135-145 [facility] Comment on above: Performed By: #### 2 438355, [id number], 9721799, 1721211, 6962971671, 909362511, 79542724 ####[facility] [address] [place] [address] Urea nitrogen [Mass/Vol] 8 mg/dL Normal 5-21 [facility] Comment on above: Performed By: #### 2 930640, [id number], 5652238, 4503082, 7125645660, 783069333, 93320305 ####[facility] [address] [place] [address] Urea nitrogen/Creatinine [Mass ratio] 10 No Units Normal 10-20 [facility] Comment on above: Performed By: #### 2 677813, [id number], 3286037, 1446581, 8480227369, 810432440, 07799730 ####[facility] [address] [place] [address] HEMATOLOGYOrdered By: SYSTEM SYSTEM on 12-18-2023 Anisocytosis [...] Normal 4.0 - 11.0 E9/L Remisol Heme SzcD0dlo 12-18-2023 HbA1c (Bld) [Mass fraction] 6.9 % High <=5.9 [facility] Comment on above: Performed By: #### 2 160331, [id number], 5220677, 3132546, 3955037239, 496990181, 84575940 ####[facility] [address] [place] [address] Lipid Panelon 12-18-2023 Cholesterol [Mass/Vol] 118 mg/dL Low 120-200 [facility] Comment on above: Performed By: #### 2 039230, [id number], 2533152, 0437362, 7554655757, 160459495, 58296199 ####[facility] [address] [place] [address] Cholesterol in HDL [Mass/Vol] 37 mg/dL Invalid Interpretation Code [facility] Comment on above: Result Comment: '>= 60 LOW RISK' '<= 40 HIGH RISK' Performed By: #### 2 193898, [id number], 8509028, 3132365, 8036330035, 444495518, 70472807 ####[facility] [address] [facility] [address] Cholesterol in LDL [Mass/Vol] 72 mg/dL Normal <=129 [facility] Comment on above: Performed By: #### 2 837220, [id number], 1886186, 8203373, 5602349351, 447377880, 42944885 ####[facility] [address] [facility] [address] Cholesterol in VLDL [Mass/Vol] 22 mg/dL Normal 7-40 [facility] Comment on above: Performed By: #### 2 852012, 8984986312, 2192901, 5151166, 8219496558, 474733879, 59949964 ####[facility] [address] [facility] [address] Triglyceride [Mass/Vol] 112 mg/dL Normal <=149 [facility] Comment on above: Performed By: #### 2 573951, 6953022757, 5815069, 0208552, 8404785289, 061640683, 39691912 ####[facility] [address] [place] [address] Patient Educationon 12-18-19 24 Patient Education Cardiovascular [...] heart. ? An ambulatory quality assurance monitor final to record your heart's activity for a [...] Trouble breathing. (more content not included)... Normal [facility] eGFRon 12-18-2023 eGFR 98 mL/min/1.73 m2 Normal >=59 [facility] Comment on above: Order Comment: Order added by Discern Expert. Performed By: #### 2 977724, [id number], 1946085, 6780609, 2922682751, 842219334, 56247305 ####[facility] [address] [place] [address] 36on 11-20-2023 36 Patient emailed me and asked if we had samples of Xarelto. Since he's on Medicare now it's very expensive for him. We haven't had a rep bring samples of Xarelto in about 1 year. I mentioned switching to Eliquis, since we do get samples of that. Ok to send RX for Eliquis 5mg bid? Please advise. Thanks! Normal [facility] Ambulatory Visit Summaryon 1 12-05-2022 Ambulatory Visit Summary MARCELLE DOHERTY :1960 Visit Date:10/04/2023 Ambulatory Visit Instructions Your [...] 8:00 AM EDT With: Where: [facility] Datil Normal [address] [place] [address]- \.br\ Medications\.br \ What How Much When [...] BPH (benign prostatic hyperplasia)\.b r\ CAD in [place] artery\.br\ Controlled type 2 diabetes mellitus without [...] choosing us for your care.\.br\ \.br\ [facility] General Surgery Office/Clini c Noteon 10-04-2023 General [...] 28.0-28.9,adult BPH (benign prostatic hyperplasia) CAD in [place] artery Controlled type 2 diabetes mellitus without [...] influenza virus vaccine, inactivated 07/30/2018 Recorded Normal [facility] Comment on above: Result Comment: [...] due to history of tubular adenoma. Normal [facility] Pathology Noteon 09-27-2023 Pathology Note [id number] 4#1.00TIFF [facility] Outside Colonoscopyon 2022 Outside Colonoscopy [id number] #1.00TIFF [facility] Lab Reportson 09-21-2023 Lab Reports [id number] #1.00TIFF [facility] Physician Referralon 023 Physician Referral [id number] #1.00TIFF [facility] Physician Referralon 023 Physician Referral [id number]# 1.00TIFF [facility] Consent for Procedure/Surger yon 08-30-2023 Consent for Procedure/Surgery [id number] 8#1.00TIFF [facility] Ambulatory Visit Summaryon 10-29-2022 Ambulatory Visit Summary MARCELLE DOHERTY :1960 Visit Date:08/29/2023 Ambulatory Visit Instructions Your [...] Appointments Monday 8:00 AM EDT With: Where: [place] [address]- \.br\ Medications\.br \ What How Much When [...] BPH (benign prostatic hyperplasia)\.b r\ CAD in [place] artery\.br\ Controlled type 2 diabetes mellitus without [...] for choosing us for your care.\.br\ \.br\ [facility] Ambulatory Visit Summaryon 1 10-16-2022 Ambulatory Visit Summary MARCELLE DOHERTY :1960 Visit Date:08/16/2023 Ambulatory Visit Instructions Your Diagnosis Kidney stone Gross hematuria BPH (benign prostatic hyperplasia) Personal history of kidney stones Former smoker Family history of kidney cancer Tests Performed Urnls Dip Stick Auto w/o Microscopy POC [id number] Your Care Team Attending Physician - Shelley [...] Jose Luis THOMAS MD Where: General Surgery [facility] Invalid Interpretation Code [address] [place] [address]- \.br\ Monday 8:40 AM EDT \.br\ With: Km NIELSON, Ursula Porter\.br\ Where: [facility] Patient Educationon 08-16-20 [...] Spinach (cooked), rhubarb, beets, sweet potatoes, and Irish chard. ? Peanuts. ? Potato chips, lithuanian fries, and baked potatoes with skin on. ? Nuts and nut products. ? Chocolate. ? If you regularly take a diuretic medicine, make sure to eat at least 1 or 2 servings of fruits or vegetables that are high in potassium each day. These include: ? Avocado. ? Banana. ? Quentin, prune, carrot, or tomato juice. ? Baked [...] fish oil, or vitamin B6. ? Take jvps-ahd-mcbtuqr and prescription medicines only as told by your health care provider. These include supplements. What foods should I limit? Limit your in (more content not included)... Normal [facility] Screenson 08-16-2023 Screens [id number] #1.00TIFF Normal [facility] Urology Office/Clinic Noteon 08-16-2023 Urology [...] call PCP 08/01/23 requesting xrays. (Nothing on Datil) CT ap wo 08/07/23 UA 08/04/23 PSA [...] call PCP 08/01/23 requesting xrays. (Nothing on Datil) CT AP w/o Con 08/07/23 - no [...] Modifications. -Increase fluid intake, 90oz/day, clear fluids, lemon/hoh 2. Gross hematuria (R31.0: Gross hematuria) CT [...] prostatic (more content not included)... Normal [facility] Comment on above: Result Comment: Elec tronically Signed By: Teo NIELSON, Shelley Sidhu\.br\Date and Time Signed: 08/16/23 09:03 EDT\.br\Electronically Co-Signed [...] No Oral contrast amount in ml's: 0 [facility] Consent for Treatmenton 07-17 Consent for Treatment [id number] #1.00TIFF [facility] Ambulatory Visit Summaryon 1 Ambulatory Visit Summary MARCELLE DOHERTY Maria D :1960 Visit Date:08/04/2023 Ambulatory Visit Instructions Your Care Team Attending Physician - Karen Deleon Primary Care Physician - Ursula Love MD. [...] Luis THOMAS MD Where: General Surgery [facility] Invalid Interpretation Code [address] [place] [address]- \.br\ Monday 8:40 AM EDT \.br\ With: Km NIELSON, Ursula Porter\.br\ Where: [facility] Nurse Consultation Noteon [...] influenza virus vaccine, inactivated 07/30/2018 Recorded Normal [facility] URINALYSISOrdered By: Isaiah Garcia on [...] PM) Normal Negative [facility] UA Auto SS Surry.plasma/Lithiu m.RBC (Bld) [Mass ratio] 0-3 /HPF Normal [...] Desc Clean Catch (08/04/23 2:10 PM) Normal [facility] UA Auto SS Urobilinogen Qn (U) 0.4051896 {Denny'U}/dL Normal 0.0 - 1.0 EU/dL [facility] UA Auto SS WBC Auto Ql (U) Negative (08/04/23 2:10 PM) Normal Negative [facility] UA Auto SS WBC LM.HPF (Urine sed) [#/Area] 0-5 /HPF Normal 0-5/HPF [facility] UA Auto SS Urinalysison 08-04-2023 Bacteria LM Ql (Urine sed) TRACE Normal Trace [facility] Comment on above: Performed By: #### 1 [id number] ####[facility] [address] [place] [address] Bilirubin Ql (U) Negative Normal Negative [facility] Comment on above: Performed By: #### 1 [id number] ####[address] [address] Clarity (U) CLEAR Normal Clear [facility] Comment on above: Performed By: #### 1 5748815 ####[facility] [address] [place] [address] Color (U) YELLOW Normal Yellow [facility] Comment on above: Performed By: #### 1 1392622 ####[facility] [address] [place] [address] Crystals LM Ql (Urine sed) Present Normal [facility] Comment on above: Performed By: #### 1 3977569 ####[facility] [address] [place] [address] Epithelial cells.squamous LM.HPF (Urine sed) [#/Area] 0-2 Normal 0-2 [facility] Comment on above: Performed By: #### 1 9356628 ####[facility] [address] [place] [address] Glucose Test strip (U) [Mass/Vol] Negative Normal Negative [facility] Comment on above: Performed By: #### 1 2303114 ####[facility] [address] [place] [address] Hemoglobin Ql (U) Negative Normal Negative [facility] Comment on above: Performed By: #### 1 0985530 ####[facility] [address] [place] [address] Ketones (U) [Mass/Vol] Negative Normal Negative [facility] Comment on above: Performed By: #### 1 9209529 ####[facility] [address] [place] [address] Surry.plasma/Lithiu m.RBC (Bld) [Mass ratio] 0-3 Normal 0-3 [facility] Comment on above: Performed By: #### 1 2029425 ####[facility] [address] [place] [address] Nitrite Ql (U) Negative Normal Negative [facility] Comment on above: Performed By: #### 1 [id number] ####[address] [address] pH (U) 6.0 [pH] Invalid Interpretation Code 5.0-9.0 [facility] Comment on above: Performed By: #### 1 [id number] ####[facility] [address] [place] [address] Protein (U) [Mass/Vol] Negative Normal Negative [facility] Comment on above: Performed By: #### 1 6162472 ####[address] [address] Specific gravity (U) [Rel density] <=1.005 Invalid Interpretation Code 1.005-1.030 [facility] Comment on above: Performed By: #### 1 2984153 ####[facility] [address] [place] [address] Type of Urine collection method Clean Catch Normal [facility] Comment on above: Performed By: #### 1 4672029 ####[facility] [address] [place] [address] Urobilinogen Qn (U) 0.2 {Denny'U}/dL Normal 0.0-1.0 [facility] Comment on above: Performed By: #### 1 0124843 ####[facility] [address] [place] [address] WBC Auto Ql (U) Negative Normal Negative [facility] Comment on above: Performed By: #### 1 2172247 ####[facility] [address] [place] [address] WBC LM.HPF (Urine sed) [#/Area] 0-5 Normal 0-5 [facility] Comment on above: Performed By: #### 1 1572075 ####[facility] [address] [place] [address] Physician Referralon 023 Physician Referral [id number] #1.00TIFF Normal [facility] CHEMISTRYOrdered By: Julien merida on 07-04-2023 Albumin DL <= 20 mg/L (U) [Mass/Vol] microgram/mL Normal 0.0 - 19.0 mcg/mL [facility] Remisol Albumin Elph (U) [Mass fraction] mg/dL Invalid Interpretation Code [facility] Remisol Creatinine (U) [Mass/Vol] 17.7 mg/dL Invalid Interpretation Code [facility] Remisol U Prot/Creat Ratio [facility] Invalid Interpretation Code 0.00 - 200.00 [facility] Remisol CHEMISTRYOrdered By: Bobby roman on 07-03-2023 HbA1c (Bld) [Mass fraction] 6.8 % High <=5.9% [facility] ChemAutoSS CBC AUTO DIFFon 01-04-2023 BASO # 0.1 103/ul Normal 0.0-0.1 [facility] Comment on above: Performed By: #### C BC #### [facility] [address] [address] [address] Lucia San Basophils/100 WBC (Bld) 1.0 % Normal 0.2-2.0 [facility] Comment on above: Performed By: #### C BC #### [facility] [address] [place], [place] [address] Dr. Lucia San EO # 0.1 103/ul Normal 0.0-0.7 [facility] Comment on above: Performed By: #### C BC #### [facility] [address] [place] [address] Dr. Lucia San Eosinophils/100 WBC (Bld) 2.5 % Normal 0.9-7.0 [facility] Comment on above: Performed By: #### C BC #### [facility] [address] [place] [address] Dr. Lucia San Erythrocyte distribution width (RBC) [Ratio] 17.3 % Critically high 11.0-15.0 [facility] Comment on above: Performed By: #### C BC #### [facility] [address] [place] [address] Dr. Lucia San Hematocrit (Bld) [Volume fraction] 35.2 % Critically low 42.0-54.0 [facility] Comment on above: Performed By: #### C BC #### [facility] [address] [place] [address] Dr. Lucia San Hemoglobin (Bld) [Mass/Vol] 11.3 g/dL Critically low 14.0-18.0 [facility] Comment on above: Performed By: #### C BC #### [facility] [address] [place] [address] Dr. Lucia San IG # 0.02 10e3/ul Normal 0.00-0.03 [facility] Comment on above: Performed By: #### C BC #### [facility] [address] [place] [address] Dr. Lucia San IG % 0.4 % Normal 0.0-0.5 [facility] Comment on above: Performed By: #### C BC #### [facility] [address] [place] [address] Dr. Lucia San LYMPH # 1.6 103/ul Normal 1.2-3.8 [facility] Comment on above: Performed By: #### C BC #### [facility] [address] [place] [address] Dr. Lucia San Lymphocytes/100 WBC (Bld) 30.9 % Normal 20.5-60.0 [facility] Comment on above: Performed By: #### C BC #### [facility] [address] [place] [address] Dr. Lucia San MANUAL DIFF REQ NO Normal [facility] Comment on above: Performed By: #### C BC #### [facility] [address] [place] [address] Dr. Lucia San MCH (RBC) [Entitic mass] 23.9 pg Critically low 25.9-34.0 [facility] Comment on above: Performed By: #### C BC #### [facility] [address] [place] [address] Dr. Lucia San MCHC (RBC) [Mass/Vol] 32.1 g/dL Normal 29.9-35.2 [facility] Comment on above: Performed By: #### C BC #### [facility] [address] [place] [address] Dr. Lucia San MCV (RBC) [Entitic vol] 74.6 fL Critically low 80.0-94.0 [facility] Comment on above: Performed By: #### C BC #### [facility] [address] [place] [address] Dr. Lucia San MONO # 0.5 103/ul Normal 0.3-0.8 [facility] Comment on above: Performed By: #### C BC #### [facility] [address] [place] [address] Dr. Lucia San Monocytes/100 WBC (Bld) 9.1 % Normal 1.7-12.0 [facility] Comment on above: Performed By: #### C BC #### [facility] [address] [place] [address] Dr. Lucia San NEUT # 2.9 103/ul Normal 1.4-6.5 [facility] Comment on above: Performed By: #### C BC #### [facility] [address] [place] [address] Dr. Lucia San Neutrophils/100 WBC (Bld) 56.1 % Normal 43.0-75.0 [facility] Comment on above: Performed By: #### C BC #### [facility] [address] [address] [address] Lucia San Platelet mean volume (Bld) [Entitic vol] 11.6 fL Normal 9.5-13.5 [facility] Comment on above: Performed By: #### C BC #### [facility] [address] [address] [address] Lucia San PLT 172 103/ul Normal 150-450 [facility] Comment on above: Performed By: #### C BC #### [facility] [address] [address] [address] Lucia San RBC 4.72 106/ul Normal 4.70-6.10 [facility] Comment on above: Performed By: #### C BC #### [facility] [address] [address] [address] Lucia San WBC 5.2 103/ul Normal 4.0-11.0 [facility] Comment on above: Performed By: #### C BC #### [facility] [address] [place] [address] Dr. Lucia San ECHOCARDIO M/2D COMPLETEon 0 01-04-2023 ECHOCARDIO M/2D COMPLETE Patient: MACRELLE DOHERTY Exam Date: 01/04/2023 : 1960 Gender:M Ordering : DR BLANKA ERAZO M.D. Admission #: [id number] Family : Order #: [id number] CLICK HERE TO VIEW EXAM ECHOCARDIOGRAM REPORT [...] Area (VTI): 3.28 cm2, 3.28 cm2 Deceleration [place]: 0.48 m/s2 Pressure Half-Time: 1.33 s Peak [...] [place] M.D. on 01/04/2023 at 15:00 Normal [facility] GLYCOHEMOGLOBIN A1Con 2022 ADA RECOMMENDATION SEE BELOW Normal [facility] Comment on above: Result Comment: ADA RECOMMENDED LIMIT 4.0 - 6.0 ADA THERAPEUTIC TARGET < 7.0 ACTION SUGGESTED > 7.0 Performed By: #### A 1C #### [facility] [address] [place] [address] Dr. Lucia San HbA1c (Bld) [Mass fraction] 6.9 % Critically high 4.5-6.2 [facility] Comment on above: Performed By: #### A 1C #### [facility] [address] [place] [address] Dr. Lucia San LIPID PROFILEon 01-04-2023 CHOL-HDL RATIO NORM SEE BELOW Normal [facility] Comment on above: Result Comment: 3.3 - 4.4 LOW RISK 4.4 - 7.1 AVERAGE RISK 7.1 - 11.0 MODERATE RISK >11.0 HIGH RISK Performed By: #### L IPID #### [facility] [address] [place] [address] Dr. Lucia San Cholesterol [Mass/Vol] 140 mg/dL Normal <=200 [facility] Comment on above: Performed By: #### L IPID #### [facility] [address] [address] [address] Lucia San Cholesterol in HDL [Mass/Vol] 37 mg/dL Critically low 40-60 [facility] Comment on above: Performed By: #### L IPID #### [facility] [address] [address] [address] Lucia San Cholesterol in LDL [Mass/Vol] 80.2 mg/dL Normal [facility] Comment on above: Performed By: #### L IPID #### [facility] [address] [address] [address] Lucia San Cholesterol.total/Cho lesterol in HDL [Mass ratio] 3.8 {ratio} Normal [facility] Comment on above: Performed By: #### L IPID #### [facility] [address] [address] [address] Lucia San HDL NORMAL > or = 60 mg/dl - LOW CARDIOVASCULAR RISK <40 mg/dl - HIGH CARDIOVASCULAR RISK Normal [facility] Comment on above: Performed By: #### L IPID #### [facility] [address] [address] [address] Lucia San LDL CALC NORMAL SEE BELOW Normal [facility] Comment on above: Result Comment: <100 mg/dl OPTIMAL 100 - 129 mg/dl NEAR OR ABOVE OPTIMAL 130 - 159 mg/dl BORDERLINE HIGH 160 - 189 mg/dl HIGH >190 mg/dl VERY HIGH Performed By: #### L IPID #### [facility] [address] [address] [address] Lucia San Triglyceride [Mass/Vol] 114 mg/dL Normal <=150 [facility] Comment on above: Performed By: #### L IPID #### [facility] [address] [address] [address] Lucia San VLDL CALC 22.8 mg/dL Normal [facility] Comment on above: Performed By: #### L IPID #### [facility] [address] [address] [address] Lucia San MICROALBUMIN, RAND URon 03-2 mALB 1.5 mg/L Normal <=30.0 [facility] Comment on above: Performed By: #### M ALBR #### [facility] [address] [place], [place] [address] Dr. Lucia San NM STRESS/REST MULTIon 01-04 NM STRESS/REST MULTI Patient: MARCELLE DOHERTY Exam Date: 01/04/2023 : 1960 Gender:M Ordering : DR BLANKA ERAZO M.D. Admission #: [id number] Family : Order #: [id number] CLICK HERE TO VIEW EXAM RADIOLOGY REPORT [...] LOCATION: Basal inferior. Mid-anterior. Mid-inferior. Apical inferior. Sayre. SIZE: Large (5 or more segments). SEVERITY: [...] Guzman MD on 01/04/2023 at 11:17 Normal [facility] PROF 14(COMP METB)on 023 Albumin [Mass/Vol] 4.1 g/dL Normal 3.4-5.0 [facility] Comment on above: Performed By: #### C MP #### [facility] [address] [place] [address] Dr. Lucia San Albumin/Globulin [Mass ratio] 1.7 {ratio} Normal [facility] Comment on above: Performed By: #### C MP #### [facility] [address] [address] [address] Lucia San ALP [Catalytic activity/Vol] 51 U/L Normal 46-116 [facility] Comment on above: Performed By: #### C MP #### [facility] Laboratory [address] [place] [address] Dr. Lucia San ALT [Catalytic activity/Vol] 49 U/L Normal 16-63 [facility] Comment on above: Performed By: #### C MP #### [facility] [address] [place] [address] Dr. Lucia San Anion gap [Moles/Vol] 16.6 mmol/L Normal [facility] Comment on above: Performed By: #### C MP #### [facility] [address] [place] [address] Dr. Lucia San AST [Catalytic activity/Vol] 28 U/L Normal 15-37 [facility] Comment on above: Performed By: #### C MP #### [facility] [address] [place] [address] Dr. Lucia San Bilirubin [Mass/Vol] 1.7 mg/dL Critically high 0.2-1.0 [facility] Comment on above: Performed By: #### C MP #### [facility] [address] [address] [address] Lucia San Calcium [Mass/Vol] 9.2 mg/dL Normal 8.5-10.1 [facility] Comment on above: Performed By: #### C MP #### [facility] [address] [place] [address] Dr. Lucia San Chloride [Moles/Vol] 100 mmol/L Normal 98-107 [facility] Comment on above: Performed By: #### C MP #### [facility] [address] [address] [address] Lucia San CO2 [Moles/Vol] 25.9 mmol/L Normal 21.0-32.0 [facility] Comment on above: Performed By: #### C MP #### [facility] [address] [address] [address] Lucia San Creatinine [Mass/Vol] 1.03 mg/dL Normal 0.70-1.30 [facility] Comment on above: Performed By: #### C MP #### [facility] [address] [address] [address] Lucia San EGFR-AF CONGOLESE >60 Normal >=60 [facility] Comment on above: Performed By: #### C MP #### [facility] [address] [place] [address] Dr. Lucia San EGFR-NON AF CONGOLESE >60 Normal >=60 [facility] Comment on above: Performed By: #### C MP #### [facility] [address] [place] [address] Dr. Lucia San Globulin (S) [Mass/Vol] 2.4 g/dL Normal [facility] Comment on above: Performed By: #### C MP #### [facility] [address] [place] [address] Dr. Luica San Glucose [Mass/Vol] 151 mg/dL Normal [facility] Comment on above: Performed By: #### C MP #### [facility] [address] [place] [address] Dr. Lucia San Performed By: #### A 1C #### [facility] [address] [address] [address] Lucia San Potassium [Moles/Vol] 4.5 mmol/L Normal 3.5-5.1 [facility] Comment on above: Performed By: #### C MP #### [facility] [address] [place] [address] Dr. Lucia San Protein [Mass/Vol] 6.5 g/dL Normal 6.4-8.2 [facility] Comment on above: Performed By: #### C MP #### [facility] [address] [address] [address] Lucia San Sodium [Moles/Vol] 138 mmol/L Normal 136-145 [facility] Comment on above: Performed By: #### C MP #### [facility] [address] [address] [address] Lucia San Urea nitrogen [Mass/Vol] 13.0 mg/dL Normal 7.0-18.0 [facility] Comment on above: Performed By: #### C MP #### [facility] [address] [address] [address] Lucia aSn Urea nitrogen/Creatinine [Mass ratio] 12.6 mg/mg Normal [facility] Comment on above: Performed By: #### C MP #### [facility] [address] [address] [address] Lucia Rondon 02-03-2022 CNOV Office Visit (CARDMN) MARCELLE DOHERTY ([id number]) 1960 M Date Time Provider Department 02/03/22 8:30 AM JANNET GONZALEZ During your visit today, we recorded the following information about you: Pulse Blood pressure Weight Height 60/minute 180/76 85.3 kg 1.765 m Jannet Gonzalez MD 02/03/2022 9:58 AM Signed [facility]asc[facility] Department of Cardiovascular Medicine SECTION OF CARDIAC PACING and ELECTROPHYSIOLOGY OUTPATIENT VISIT DATE February 03, 2022 OUTPATIENT VISIT TYPE CONSULTATION PRIMARY CARE PHYSICIAN: Mark Browning DO [address] [place] [address] CHIEF COMPLAINT: PAF HISTORY OF PRESENT ILLNESS (includes edited nursing intake history): Cardiac consultation at the request of Dr. Hina Green.A copy of this consultation note will be provided to the requesting physician by way of shared Medical record or letter to requesting physician via US mail. Marcelle Doherty is a 61 y/o male who presents [...] he is in SR. He denies syncope. [id number] (HTN, CAD, DM) tolerating Xarelto PAST MEDICAL HISTORY Diagnosis Date - Atrial fibrillation (HCC) 2013 - CAD (coronary artery disease) 09/02/2014 - Diabetes mellitus (HCC) - Dyslipidemia - Hypertension - Metabolic syndrome PAST SURGICAL HISTORY Procedure Laterality Date - AFIB PVI W/COMPL EP STUDY 07/10/2017 - CARDIAC CATH 09/02/2014 HOSPITAL ADMITTING CLERK of proximal RCA. 70% ostial D1. Preserved [...] sweating-No, Frequen (more content not included)... Normal [facility] CNCOon 12-04-2021 CNCO Letter Text Normal [facility] Dermatopathologyon 0 Dermatopathology [facility] Dermatopathology Laboratory [address] [place] [id number] DERMATOPATHOLOGY REPORT Name:MARCELLE DOHERTY [facility]. Rec #. [id number] Location: ADE Date of Procedure: 10/02/2020 Race: Unknown Date Received: 10/06/2020 /Sex: 1960 (Age: 60) / M Date Reported: 10/08/2020 Other: Submitting Physician:SONIA GREEN APRN, DIRECTOR AIRPORT-C FINAL DIAGNOSIS A. SKIN, (R) NECK, BIOPSY: [...] is a mayers piece of skin measuring [id number] in aggreg (small). The specimen is inked and embedded in toto. B: Received in formalin is a mayers piece of skin measuring [id number]. The specimen is inked and embedded in toto. ink/10/06/2020 Microscopic Description: A,B: Microscopic examination performed. Normal [facility] Comment on above: Performed By: #### D #### Dermatopathology Vital Signs Date Time Vital Sign Value Performing Clinician Facility 03-14-2024 10:16-0400 Body temperature 97.52 [degF] Ana Spencer [facility] 03-14-2024 10:16-0400 Diastolic blood pressure 85 mm[Hg] Ana Lingke [facility] 03-14-2024 10:16-0400 Heart rate 59 /min Ana Lingke [facility] 03-14-2024 10:16-0400 Mean blood pressure 116 mm[Hg] Ana Spencer [facility] 03-14-2024 10:16-0400 Respiratory rate 16 /min Ana Spencer [facility] 03-14-2024 10:16-0400 SaO2% (BldA) [Mass fraction] 99 % Ana Spencer [facility] 03-14-2024 10:16-0400 Systolic blood pressure 179 mm[Hg] Ana Spencer [facility] 02-15-2024 13:10-0400 Blood Pressure Location Ana Spencer [facility] 02-15-2024 13:10-0400 Body temperature 98.06 [degF] Ana Spencer [facility] 02-15-2024 13:10-0400 Diastolic blood pressure 61 mm[Hg] Ana Lingke [facility] 02-15-2024 13:10-0400 Heart rate 62 /min Ana Lingke [facility] 02-15-2024 13:10-0400 Mean blood pressure 77 mm[Hg] Ana Lingke [facility] 02-15-2024 13:10-0400 Respiratory rate 16 /min Ana Lingke [facility] 02-15-2024 13:10-0400 SaO2% (BldA) [Mass fraction] 99 % Ana Spencer [facility] 02-15-2024 13:10-0400 Systolic blood pressure 108 mm[Hg] Ana Lingke [facility] 02-08-2024 13:00-0400 Blood Pressure Location Ana Spencer [facility] 02-08-2024 13:00-0400 Body temperature 98.24 [degF] Ana Spencer [facility] 02-08-2024 13:00-0400 Diastolic blood pressure 82 mm[Hg] Ana Spencer [facility] 02-08-2024 13:00-0400 Heart rate 80 /min Ana Spencer [facility] 02-08-2024 13:00-0400 SaO2% (BldA) [Mass fraction] 100 % Ana Spencer [facility] 02-08-2024 13:00-0400 Systolic blood pressure 142 mm[Hg] Ana Spencer [facility] 01-25-2024 08:58-0400 Diastolic blood pressure 82 mm[Hg] Ana Spencer [facility] 01-25-2024 08:58-0400 Heart rate 65 /min Ana Hubbardboske [facility] 01-25-2024 08:58-0400 Mean blood pressure 118 mm[Hg] Ana Hubbardboske [facility] 01-25-2024 08:58-0400 SaO2% (BldA) [Mass fraction] 99 % Ana Lingke [facility] 01-25-2024 08:58-0400 Systolic blood pressure 190 mm[Hg] Ana Spencer [facility] 08-16-2023 08:21-0400 Blood Pressure Location Shelley Lue [facility] 08-16-2023 08:21-0400 Diastolic blood pressure 83 mm[Hg] Shelley Lue [facility] 08-16-2023 08:21-0400 Heart rate 69 /min Shelley Lue [facility] 08-16-2023 08:21-0400 Respiratory rate 16 /min Shelley Lue [facility] 08-16-2023 08:21-0400 Systolic blood pressure 166 mm[Hg] Shelley Lue [facility] Encounters Encounter Date Encounter Type Care Provider Facility Start: 08-01-2024 End: 08-01-2024 ambulatory Ana Spencer Facility:[facility] Start: 08-01-2024 End: 08-01-2024 Patient encounter procedure Ana Spencer [facility] Start: 08-01-2024 End: 08-01-2024 ambulatory Ursula Love Facility:[facility] Start: 07-12-2024 End: 07-12-[address] [facility] Start: 07-04-2024 End: 07-04-2024 ambulatory Ana Spencer Facility:[facility] Start: 07-04-2024 End: 07-04-2024 Patient encounter procedure Ana Spencer [facility] Start: 06-27-2024 End: 07-10-2024 Orders Only Jannet Gonzalez MD Work Phone: Cardiology Comment on above: Atrial fibrillation, unspecified type (HCC) (Primary Dx) Start: 2024 End: 2024 ambulatory Ursula IveyNelly Km Facility:[facility] Start: 06-06-2024 End: 06-06-2024 ambulatory Ana Spencer Facility:[facility] Start: 06-06-2024 End: 06-06-2024 Patient encounter procedure Ana Spencer [facility] Start: 05-09-2024 End: 05-09-2024 ambulatory Ana Spencer Facility:[facility] Start: 05-09-2024 End: 05-09-2024 Patient encounter procedure Ana Spencer [facility] Start: 04-24-2024 End: 05-08-2024 ambulatory Ursula Love Facility:[facility] Start: 04-11-2024 End: 04-11-2024 ambulatory Ana Spencer Facility:[facility] Start: 04-11-2024 End: 04-11-2024 Patient encounter procedure Ana Spencer [facility] Start: 03-26-2024 End: 03-26-2024 ambulatory Ursula IveyNelly Km Facility:[facility] Start: 03-22-2024 End: 04-09-2024 ambulatory Ursula IveyNelly Km Facility:[facility] Start: 03-14-2024 End: 03-14-2024 ambulatory Ana Spencer Facility:[facility] Start: 03-14-2024 End: 03-14-2024 Patient encounter procedure Ana Spencer [facility] Start: 03-12-2024 End: 03-12-2024 ambulatory Ana Spencer Facility:[facility] Start: 03-12-2024 End: 03-12-2024 Patient encounter procedure Ana Spencer [facility] Start: 02-15-2024 End: 02-15-2024 ambulatory Ana Spencer Facility:[facility] Start: 02-15-2024 End: 02-15-2024 Patient encounter procedure Ana Spencer [facility] Start: 02-08-2024 End: 02-08-2024 ambulatory Ana Spencer Facility:[facility] Start: 02-08-2024 End: 02-08-2024 Patient encounter procedure Ana Spencer [facility] Start: 02-01-2024 End: 02-01-2024 ambulatory Ana Spencer Facility:[facility] Start: 02-01-2024 End: 02-01-2024 Patient encounter procedure Ana Spencer [facility] Start: 01-25-2024 End: 02-07-2024 ambulatory Ursula Love Facility:[facility] Start: 01-25-2024 End: 01-25-2024 Patient encounter procedure Ana Spencer [facility] Start: 01-16-2024 End: 01-16-2024 ambulatory Bharath Melton Facility:[facility] Start: 01-16-2024 End: 01-16-2024 Patient encounter procedure Bharath Melton [facility] Start: 12-29-2023 End: 12-29-[facility] Start: 12-28-2023 End: 12-28-2023 ambulatory Ursula Love Facility:[facility] Start: 12-27-2023 End: 12-27-2023 ambulatory Ursula IveyNelly Love Facility:[facility] Start: 12-27-2023 End: 12-27-2023 Patient encounter procedure Ursula Love [facility] Start: 12-19-2023 ambulatory Ursula UcheNelly Km Facility :[id number] Start: 12-18-2023 End: 12-18-2023 Lab Drop off Ursula Love [facility] Start: 12-18-2023 End: 12-18-2023 ambulatory Ursula Love Facility:[facility] Start: 12-18-2023 End: 12-18-2023 ambulatory Ursula IveyNelly Km Facility:[facility] Start: 10-04-2023 End: 10-04-2023 ambulatory Jose Luis R NILL Facility: [facility] Start: 10-04-2023 End: 10-04-2023 Patient encounter procedure Jose Luis R NILL [facility] Nill/S[facility] Start: 09-20-2023 End: 09-20-2023 ambulatory Jose Luis R NILL Facility:[id number] Start: 08-29-2023 End: 08-29-2023 ambulatory Jose Luis R NILL Facility: [facility] Start: 08-16-2023 End: 08-16-2023 ambulatory Shelley Bruce Facility: [facility] Start: 08-16-2023 End: 08-16-2023 Patient encounter procedure Shelley Bruce [facility] Start: 08-08-2023 ambulatory MATHEMATICAL ENGINEER Karen Ceron y:[facility] Start: 08-07-2023 End: 08-07-2023 ambulatory Ursula Love Facility:[facility] Start: 08-07-2023 End: 08-07-2023 Patient encounter procedure Ursula Love [facility] Start: 08-04-2023 End: 08-04-2023 Lab Drop off Karen L Juan Antonio [facility] Start: 08-04-2023 End: 08-04-2023 ambulatory MATHEMATICAL ENGINEER Karen L Juan Antonio Facility:[facility] Start: 08-03-2023 ambulatory MATHEMATICAL ENGINEER Karen Juan Antonio Facilit y:ESTEPHANIA Kirby Start: 07-04-2023 End: 07-04-2023 Lab Drop off Ursula Love [facility] Start: 07-03-2023 End: 07-03-2023 Lab Drop off Ursula Love [facility] Start: 01-04-2023 End: 01-05-2023 ambulatory URSULA LOVE Facility: Start: 04-01-2022 End: 04-01-2022 Off-Site Ursula Love [facility] Start: 03-30-2022 End: 03-30-2022 Off-Site Ursula Love [facility] Start: 02-03-2022 Orders Only Jannet Timmons Work Phone: Cardiology Comment on above: Persistent atrial fi brillation (HCC) (Primary Dx) Procedures Date Procedure Procedure Detail Performing Clinician Start: 09-20-2023 Colonoscopy Jose Luis RIVERA Cardiac ablation sys tem (physical object) Shelley Bruce Cardiac catheterization Hernandez ael NILL Repair of musculoten dinous cuff of shoulder Jose Luis VALLEJOL Rupture of tendon of biceps (disorder) Jose Luis VALLEJOJose Manuel Structure of right s houlder region (body structure) Ursula Love Tonsillectomy Jose Luis VALLEJOJose Manuel Plan of Treatment Date Care Activity Detail Author Start: 01-30-2025 ambulatory Ambulatory Facility:[facility] Start: 12-19-2024 End: 12-19-2024 Patient encounter procedure 12/19/2024 9:15 AM EST Office Visit Cardiology [address] [id number] Jannet Gonzalez MD [address] [place] [address] Paroxysmal atrial fibrillation (HCC) [I48.0] Cardiology Comment on above: Paroxysmal atrial fi brillation (HCC) [I48.0] Start: 12-19-2024 End: 12-19-2024 ambulatory 12/19/2024 8:30 AM EST Results Only Cardiology [address] [id number] Paroxysmal atrial fibrillation (HCC) [I48.0] Cardiology Comment on above: Paroxysmal atrial fi brillation (HCC) [I48.0] Start: 12-17-2024 ambulatory Ambulatory Facility:[facility] Start: 06-16-2024 Covid-19 Vaccine ( season) Covid-19 Vaccine ( season) [facility] Start: 06-16-2024 Influenza vaccination Influenza Vacc ine (#1) [facility] Start: 10-16-2023 Advance Directive Discussion Advance Directive Discussion [facility] Start: 2023 Pneumococcal Vaccine : 65+ (1 of 1 - PCV) Pneumococcal Vaccine: 65+ (1 of 1 - PCV) [facility] Start: 07-04-2020 DIABETES SCREEN DIABETES SCREEN [facility] Start: 07-04-2020 Diabetes Screening Diabetes Screenin g [facility] Start: 2018 RSV Vaccine (1 - 1-d ose 60+ series) RSV Vaccine (1 - 1-dose 60+ series) [facility] Start: 2013 PROSTATE CANCER SCREENING DISCUSSION PROSTATE CANCER SCREENING DISCUSSION [facility] Start: 2013 Prostate specific antigen measurement Prostate Cancer Screening Discussion [facility] Start: 2008 SHINGRIX VACCINE (1 of 2) SHINGRIX VACCINE (1 of 2) [facility] Start: 2003 COLOGUARD (FIT-DNA) COLOGUARD (FIT-D NA) [facility] Start: 2003 Colonoscopy COLONOSCOPY [facility] Start: 2003 COLORECTAL CANCER SCREENING COLORECTAL CANCER SCREENING [facility] Start: [address] COLONOGRAPHY [facility] Start: 2003 FECAL OCCULT BLOOD FECAL OCCULT BLOO D [facility] Start: 2003 Screening for malign ant neoplasm of colon [facility] Start: 2003 SIGMOIDOSCOPY SIGMOIDOSCOPY [facility] Start: 1993 Lipid panel Lipid Screening [facility] Start: 1993 LIPID SCREEN LIPID SCREEN [facility] Start: 1977 Urine microalbumin profile [facility] Start: 1976 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 SARAH DISEASE VISIT ANNUAL PCP TEAM CHRONIC DISEASE VISIT [facility] Start: 1976 Anxiety Screening Anxiety Screening [facility] Start: 1976 BP CONTROLLED (<130/80) BP CONTROLLE D (<130/80) [facility] Start: 1976 Depression Screening Depression Scre ening [facility] Start: 1976 Hepatitis B surface antibody level LDL CHOLESTEROL [facility] Start: 1976 HEPATITIS C SCREENING HEPATITIS C [facility] Start: 1976 Hepatitis C screening Hepatitis C [facility] Start: 1976 HIV SCREENING HIV SCREENING [facility] Start: 1970 Adult depression screening assessment DEPRESSION SCREENING [facility] Start: 1960 Abdominal aortic aneurysm screening Abdominal Aortic Aneurysm Screening [facility] End: 02-03-2023 ECG COMPLETE ECG COMPLETE ECG Routine Persistent atrial fibrillation (HCC) 1 Occurrences starting 02/03/2022 until 02/03/2023 [facility] Work Phone: Comment on above: 1 Occurrences starti ng 02/03/2022 until 02/03/2023 End: 06-27-2025 ECG COMPLETE ECG COMPLETE ECG Routine Atrial fibrillation, unspecified type (HCC) 1 Occurrences starting 06/27/2024 until 06/27/2025 [facility] Work Phone: Comment on above: 1 Occurrences starti ng 06/27/2024 until 06/27/2025 [facility] c Immunizations Immunization Date Immunization Notes Care Provider Fa cility 08-31-2021 SARS-CoV-2 (COVID-19 ) Ad26 vaccine, recombinant Ursula Love [facility] Comment on above: Result Comment: 2021: [id number] 07-23-2021 influenza virus vaccine, unspecified formulation Ursula Love [facility] 12-23-2020 SARS-CoV-2 (COVID-19 ) Ad26 vaccine, recombinant Ursula Love [facility] 07-30-2018 influenza virus vaccine, unspecified formulation Ursula Love [facility] NEGATED: Highlighted row has not occurred!07-03-2023 influenza virus vaccine, unspecified formulation Ursula Love [facility] Payers Date Payer Category Payer Private Health Insurance [facility] AARP SUPPLEMENT [id number] 2023-Present [phone] [address] [place] [address] Indemnity [id number] 2023 Medicare MEDICARE MEDICAR E A AND B [id number] 2023-Present [phone] [place] [address] Medicare [id number] 2023 Medicare [id number] 2023 Unknown [id number] 2021 Unknown SHELLIE LAWRENCE SS PPO [id number] 2021-Present [phone] [address] [place] [address] PPO [id number] 1959 Unknown [id number] 1960 Unknown [id number] 2.16.840.1.245189.3.579.2. 593 1958 Unknown [id number] 2.16.840.1.157700.3.579.2. 593 1958 Unknown [id number] 2.16.840.1.039314.3.579.2. 727 1958 Unknown [id number] 2.16.840.1.421200.3.579.2. 727 1958 Unknown [id number] 2.16.840.1.212577.3.579.2. 727 1958 Unknown [id number] 2.16.840.1.572159.3.579.2. 727 1958 Unknown [id number] 2.16.840.1.462603.3.579.2. 727 1958 Unknown [id number] 2.16.840.1.432789.3.579.2. 727 1958 Unknown [id number] 2.16.840.1.260409.3.579.2. 727 1958 Unknown [id number] 2.16.840.1.544870.3.579.2. 727 1958 Unknown [id number] 2.16.840.1.110492.3.579.2. 727 8 Unknown [id number] 2.16.840.1.099934.3.579.2. 72 1958 Unknown [id number] 2.16840.1.027989.3.579.2. 1958 Unknown [id number] 2.16.840.1.264147.3.579.2. 1958 Unknown [id number] 2.16.840.1.624136.3.579.2. 1958 Unknown [id number] 2..840.1.637550.3.579.2. 1958 Unknown [id number] 2.840.1.673667.3.579.2. 1958 Unknown [id number] 2.840.1.122521.3.579.2 1958 Unknown [id number] 2.840.1.778303.3.579.2. 1958 Unknown [id number] 2.840.1.772057.3.579.2 1958 Unknown [id number] 2.840.1.350108.3.579.2. 1958 Unknown [id number] 2.840.1.563884.3.579.2. 1960 Unknown [id number] 2.16840.1.999328.3.579.2. 1958 Unknown [id number] 2.16.840.1.529079.3.579.2. 1958 Unknown [id number] 2.16.840.1.735726.3.579.2. 1958 Unknown [id number] 2.16.840.1.065293.3.579.2. 1958 Unknown [id number] 2.16.840.1.590275.3.579.2. 727 1958 Unknown [id number] 2.16.840.1.795858.3.579.2. 727 1958 Unknown [id number] 2.16.840.1.119487.3.579.2. 727 1958 Unknown [id number] 2.16.840.1.657186.3.579.2. 727 1958 Unknown [id number] 2.16.840.1.615564.3.579.2. 72 1958 Unknown [id number] 2.16.840.1.687960.3.579.2. 72 1958 Unknown [id number] 2.16.840.1.480340.3.579.2. 72 1958 Unknown [id number] 2.16.840.1.745501.3.579.2. 72 1958 Unknown [id number] 2.16.840.1.760304.3.579.2. 727 Social History Date Type Detail Facility Start: 08-25-2014 End: 08-01-2024 Tobacco smoking status NHIS Ex-smoker [facility] Comment on above: Quit in 2013 after M I quit age 53 (39 pack years) Start: 10-25-1955 End: 08-09-2014 History of tobacco use Current smoker [facility] Start: 10-25-1955 End: 08-09-2014 History of tobacco use Cigarette Smoker [facility] Start: 08-25-2014 End: 09-23-2020 Cigarettes smoked current (pack per day) - Reported [facility].5 [facility] [facility] Start: 08-25-2014 Tobacco use and exposure Smokeless tobacco non-user [facility] Start: 02-03-2022 Alcohol intake Current drinke r of alcohol (finding) [facility] Start: 1960 Sex Assigned At Not on file [facility] Start: 01-24-2022 End: 02-03-2022 Exposure to SARS-CoV-2 (event) Not sure [facility] Tobacco smoking status No Smokin g Status Entered [facility] Start: 09-23-2020 End: 02-03-2022 Sex Assigned At Male [facility] Start: 04-01-2022 Tobacco smoking status Never s moked tobacco (finding) [facility] Tobacco smoking status Never [facility] Comment on above: Quit in 2013 after M I quit age 53 (39 pack years) Medical Equipment Procedure Code Equipment Code Equipment Origin al Text Equipment Identifier Dates Lancets, See Instructions, EA, Lancets, to check BS once daily E11.9, Supply Start: 2024 Lancets, See Instructions, 100 lancet(s), 0, Lancets, to check BS once daily E11.9, [id number], Supply, 179, cm, 03/26/24 10:53:00 EDT, Height/Length Dosing, 86, kg, 03/26/24 10:53:00 EDT, Weight Dosing Start: 2024 One Touch Ultra 2 Test Strips, See Instructions, Supply Start: 2024 One Touch Ultra 2 Test Strips, See Instructions, 100 strip(s), 0, One Touch Ultra 2 Glucometer Test Strips, to check BS once daily E11.9, [id number], Supply, 179, cm, 03/26/24 10:53:00 EDT, Height/Length Dosing, 86, kg, 03/26/24 10:53:00 EDT, Weight Dosing Start: 2024 One Touch Ultra 2 Test Strips, See Instructions, 100 strip(s), 0, One Touch Ultra 2 Glucometer Test Strips, to check BS once daily E11.9, [id number], Supply, 179, cm, 03/26/24 10:53:00 EDT, Height/Length Dosing, 86, kg, 03/26/24 10:53:00 EDT, Weight Dosing Start: 2024 Goals Date Patient Goal Desired Activity /State 12-28-2023 Functional Status Date Assessment Result Facility 08-16-2023 Functional Status N/A [facility] 04-01-2022 Functional Status Telehealth Patient Oral [facility] Clinical Notes 02-03-2022 to 07-12-2024 RadiologyRadiologyRadiologyRadiologyRadiologyRadiologyLaboratoryRadiologyLaborat oryRadiologyLaboratoryRadiologyLaboratoryRadiologyRadiologyLaboratoryRadiologyLa boratoryRadiologyLaboratoryRadiology Note Date & Type Note Facility 07-12-2024 Note [place] [facility]iology - [facility] Subjective Marcelle Doherty is a 64 y.o. year old male [...] of an abnormal stress test that showed HOSPITAL ADMITTING CLERK of the RCA with filling via left to right collaterals. He also had a 70% stenosis in a diagonal branch (the prior report mentions that it is not amenable to intervention). At that time left-ventricular gram showed normal left ventricular ejection fraction at 60%. 2. Paroxysmal atrial fibrillation, status post ablation in 2017 at the [facility]. He also had prior cardioversion. He [...] episodes of atrial fibrillation. He has a SuccessTSMa machine that he uses to transmit ECG. [...] and time. Psychiat (more content not included)... [facility] 01-25-2024 Hospital Discharge instructions Follow Up Care 01/25/2024 12:17:38 With:Tj BURTON, Ana Rivas, ONC Address: [facility] [address] [place] [phone]- [phone] When: Unknown Comments:cbc, cmp, iron studies in 3mo and 6mofollow-up in 6mo with DIRECTOR AIRPORT [facility] 12-29-2023 Note LDL > 70 therefore c ontinue lipitor 80 mg and will add zetia 10 mg daily Repeat lipid level before next appt in about 3-6 months [facility] 12-29-2023 Note Hypertension is typi jimmie stable with review of his home b/p log. Definitely has white coat syndrome Continue norvasc, clonidine, lisinopril and toprol [facility] 12-29-2023 Note Coronary artery dise ase is stable Continue GDMT- ASA, lipitor, imdur, toprol, and ranexa continue risk factor modifications- heart healthy diet, regular exercise as tolerated and continue all medications. [facility] 12-29-2023 Note Rate stable with top rol Anticoagulation with eliquis and denied any bleeding tendencies. [facility] 12-29-2023 Note Order ABD Aorta US i n 6 months to re-evalulate infrarenal AAA. [facility] 12-29-2023 Hospital Discharge instructions Follow Up Care 12/29/2023 11:16:26 With:Tj BURTON, Ana Rivas, ONC Address: [facility] [place] [address]- [phone] When: Unknown Comments:IV Injectafer x2B12 injections weekly x4, then monthlycbc, cmp, iron studies in 8wksfollow-up in 8wks with DIRECTOR AIRPORT [facility] 12-29-2023 Note Patient here for 6 m [...] All other systems reviewed and are negative. [facility] 12-29-2023 Note [facility] CARDIOLOGY PROGR ESS NOTE HPI: Marcelle Doherty is a 63 y.o. male here for [...] and are negative. Previous HPI per Dr Erazo HPI He is a 63 yo man with prior history of: 1. CAD s/p cardiac cath in 2013 in the setting of an abnormal stress test that showed HOSPITAL ADMITTING CLERK of the RCA with filling via left to right collaterals. He also had a 70% stenosis in a diagonal branch (the prior report mentions that it is not amenable to intervention). At that time left-ventricular gram showed normal left ventricular ejection fraction at 60%. 2. Paroxysmal atrial fibrillation, status post ablation in 2017 at the [facility]. He also had prior cardioversion. He [...] episodes of atrial fibrillation. He has a SuccessTSMa machine that he uses to transmit ECG. [...] 2 seconds. Neurol (more content not included)... [facility] 12-29-2023 Note HTN management with goal b/p < 130/80 Monitor b/p at home Routine monitoring- will repeat Echocardiogram in 6 months with f/u with Dr Erazo. D/W pt that he is to call 911 for sharp, tearing chest pain or back pain, call office for b/p consistently > 130/80 and he voiced understanding [facility] 08-29-2023 Note Chief Complaint consultation [...] 28.0-28.9,adult BPH (benign prostatic hyperplasia) CAD in [place] artery Controlled type 2 diabetes mellitus without [...] mg= 2 tab(s (more content not included)... [facility] Comment on above: Result Comment: [...] include: ?8 oz (237 mL) of milk, dvsiwdj-kxccfpehutrz-xhwfz milk, and calcium-fortifiedfruit juice. Calcium-fortified means that [...] ?Spinach (cooked), rhubarb, beets, sweet potatoes, and Irish chard. ?Peanuts. ?Potato chips, lithuanian fries, and baked potatoes with skin on. ?Nuts and nut products. ?Chocolate. If you regularly take a diuretic medicine, make sure to eat at least 1 or 2 servings of fruits or vegetables that are high in potassium each day. These include: ?Avocado. ?Banana. ?Quentin, prune, carrot, or tomato juice. ?Baked potato. [...] magnesium, fish oil, or vitamin B6. Take hepe-dxw-becnbbd and prescription medicines only as told by [...] Casseroles. Pizza. Lasagna. Frozen meals. Potato chips. Zambian fries. The items listed above may not [...] provider. Document Revised: 06/13/2022 Document Reviewed: 06/13/2022 [employer] Patient Education 2022 [employer]. Follow Up Care 08/08/2023 13:37:21 With:Teo NIELSON, Shelley Sidhu, URL, URO Address: When: Unknown Comments:PRN [facility] 01-04-2023 Note CARDIAC STRESS TEST Requesting Physician: Blanka Erazo M.D. Procedure Date:01/04/2023 PERFORMING PHYSICIAN: Geoff White [...] and reported myocardial perfusion scan findings. [facility] 04-01-2022 Hospital Discharge instructions Patient Education [...] quitting, ask your health care provider. Take ravu-dpx-bsegkqy and prescription medicines only as told by [...] 10/07/2014 Document Revised: 05/27/2019 Document Reviewed: 05/03/2019 [employer] Patient Education 2020 [employer]. 04/01/2022 13:38:40 Hyperglycemia Hyperglycemia Hyperglycemia occurs when [...] or polycystic ovarian syndrome (PCOS). Being of Malaysian-, -Malaysian, /, or / descent. What are the [...] these instructions at home: General instructions Take bbui-mel-gxlimwk and prescription medicines only as told by [...] 03/28/2002 Document Revised: 06/19/2017 Document Reviewed: 06/19/2017 [employer] Patient Education 2020 [employer]. 04/01/2022 13:38:33 Atrial Fibrillation Atrial Fibrillation Atrial [...] with: Electrocardiogram (ECG). Ambulatory quality assurance monitor final. This device records your heartbeats for 24 [...] 10/02/2006 Document Revised: 11/22/2018 Document Reviewed: 11/23/2018 [employer] Patient Education 2020 [employer]. 04/01/2022 13:38:29 Pinched Nerve Pinched Nerve A [...] work. Follow these instructions at home: Take bxiz-shv-cvflhgd and prescription medicines only as told by [...] leg, or the back or neck. Take umln-yiq-iwabutm and prescription medicines only as told by [...] 09/22/2003 Document Revised: 10/19/2018 Document Reviewed: 10/16/2018 [employer] Patient Education 2020 [employer]. [facility] [place] 02-03-2022 Note HNO ID: [id number] Author: Jannet Gonzalez MD Service: ? Author Type: Physician Type: Progress Notes Filed: 02/03/2022 9:58 AM Note Text: [facility] Emiliano Plascencia Department of Cardiovascular Medicine SECTION OF CARDIAC PACING and ELECTROPHYSIOLOGY OUTPATIENT VISIT DATE February 03, 2022 OUTPATIENT VISIT TYPE CONSULTATION PRIMARY CARE PHYSICIAN: Mark Browning DO [address] [id number] CHIEF COMPLAINT: PAF HISTORY OF PRESENT ILLNESS (includes edited nursing intake history): Cardiac consultation at the request of Dr. Hina Green.A copy of this consultation note will be provided to the requesting physician by way of shared Medical record or letter to requesting physician via US mail. Marcelle Doherty is a 61 y/o male who presents [...] he is in SR. He denies syncope. [id number] 3 (HTN, CAD, DM) tolerating Xarelto PAST MEDICAL HISTORY Diagnosis Date - Atrial fibrillation (HCC) 2013 - CAD (coronary artery disease) 09/02/2014 - Diabetes mellitus (HCC) - Dyslipidemia - Hypertension - Metabolic syndrome PAST SURGICAL HISTORY Procedure Laterality Date - AFIB PVI W/COMPL EP STUDY 07/10/2017 - CARDIAC CATH 09/02/2014 HOSPITAL ADMITTING CLERK of proximal RCA. 70% ostial D1. Preserved [...] patient General: L (more content not included)... [facility] Evaluation + Plan note No data available for this section [facility] Evaluation + Plan note Future Appointments Appointment Date:01/03/2024 08:00:00 AM Scheduled Provider: [facility] Medicare Wellness Welcome Appointment Date:01/03/2024 08:40:00 AM Scheduled Provider:Ursula Love MD Location:[facility] Appointment Type: Open Diagnostic Tests PendingPSA Free & Total 07/03/23Microalbumin Level Urine 07/03/23U Protein/Creat Ratio 07/03/23 [facility] Evaluation + Plan note Future Appointments Appointment Date:01/03/2024 08:00:00 AM Scheduled Provider: [facility] Type:FM Medicare Wellness Welcome Appointment Date:01/03/2024 08:40:00 AM Scheduled Provider:Ursula Love MD Location:[facility] note Future Appointments Appointment Date:08/29/2023 02:20:00 PM Scheduled Provider:Jose Luis THOMAS MD [facility]: Appointment Date:01/03/2024 08:00:00 AM Scheduled Provider: Location:[facility] Appointment Type:FM Medicare Wellness Welcome Appointment Date:01/03/2024 08:40:00 AM Scheduled Provider:Ursula Love MD [facility] Type: Open Diagnostic Tests PendingUrine Culture 08/04/23 Future Scheduled TestsCT Abdomen/Pelvis w/o Contrast 08/02/23 [facility] Evaluation + Plan note Future Appointments Appointment Date:08/29/2023 02:20:00 PM Scheduled Provider:Jose Luis THOMAS MD Location:[facility] Appointment Type: Appointment Date:01/03/2024 08:00:00 AM Scheduled Provider: Location:[facility] Appointment Type:FM Medicare Wellness Welcome Appointment Date:01/03/2024 08:40:00 AM Scheduled Provider:Ursula Love MD Location:[facility] Appointment Type[facility] + Plan note Future Appointments Appointment Date:08/29/2023 02:20:00 PM Scheduled Provider:Jose Luis THOMAS MD Location:[facility] Appointment Type: Appointment Date:01/03/2024 08:00:00 AM Scheduled Provider: Location:[facility] Appointment Type:FM Medicare Wellness Welcome Appointment Date:01/03/2024 08:40:00 AM Scheduled Provider:Ursula Love MD Location:[facility] Appointment Type: Open Future Scheduled TestsUS Aorta 08/08/24 [facility] Evaluation + Plan note Future Appointments Appointment Date:01/03/2024 08:00:00 AM Scheduled Provider: [facility] Type:FM Medicare Wellness Welcome Appointment Date:01/03/2024 08:40:00 AM Scheduled Provider:Ursula Love MD Location:[facility] Appointment Type: Open Future Scheduled TestsUS Aorta 08/08/24 [facility] Evaluation + Plan note Future Appointments Appointment Date:12/17/2024 08:00:00 AM Scheduled Provider: Location:[facility] Appointment Type:FM Medicare Wellness Subsequent Diagnostic Tests PendingHCV Antibody RFX to Quant PCR 12/18/23 Future Scheduled TestsCT Chest, Low Dose Screening 12/18/23US Aorta 08/08/24 [facility] Evaluation + Plan note Future Appointments Appointment Date:03/25/2024 10:45:00 AM Scheduled Provider:Ursula Love MD Location:[facility] Appointment Type: Open Appointment Date:12/17/2024 08:00:00 AM Scheduled Provider: Location:[facility] Appointment Type:FM Medicare Wellness Subsequent Future Scheduled TestsUS Aorta 08/08/24 [facility] Evaluation + Plan note Future Appointments Appointment Date:01/25/2024 09:00:00 AM Scheduled Provider:Ana Kmuar [facility] App[facility] Type:ONC Office Visit [facility] ([place]) Appointment Date:03/25/2024 10:45:00 AM Scheduled Provider:Ursula Love MD Location:[facility] Appointment Type: Open Appointment Date:12/17/2024 08:00:00 AM Scheduled Provider: Location:[facility] Appointment Type:FM Medicare Wellness Subsequent Diagnostic Tests PendingImmunofixation Serum 01/16/24Free K+L Lt Chains,Qn,S 01/16/24Protein Electrophoresis 01/16/24 Future Scheduled TestsUS Aorta 08/08/24 [facility] Evaluation + Plan note Future Appointments Appointment Date:02/01/2024 02:30:00 PM Scheduled Provider: Location:.ONCOLOGY Appointment Type:ONC Injection ([place]) Appointment Date:02/08/2024 02:30:00 PM Scheduled Provider: [facility] Appointment Type:ONC Injection ([place]) Appointment Date:02/15/2024 02:00:00 PM Scheduled Provider: [facility] Appointment Type:ONC Injection ([place]) Appointment Date:03/14/2024 10:15:00 AM Scheduled Provider:Ana Kumar Location:.ONCOLOGY Appointment Type:ONC Office Visit 30 ([place]) Appointment Date:03/14/2024 10:45:00 AM Scheduled Provider: Location:.ONCOLOG[facility] Appointment Type:ONC Injection ([place]) Appointment Date:03/25/2024 10:45:00 AM Scheduled Provider:rUsula Love MD Location:[facility] Appointment Type:FM Open Appointment Date:12/17/2024 08:00:00 AM Scheduled Provider: Location:[facility] Appointment Type: Medicare Wellness Subsequent Future Scheduled TestsCBC w/ Auto Diff 03/21/24Comprehensive Metabolic Panel 03/21/24Ferritin 03/21/24Iron Level 03/21/24Iron Percent Saturation 03/21/24Transferrin 03/21/24US Aorta 08/08/24 [facility] Evaluation + Plan note Future Appointments Appointment [...] 10:45:00 AM Scheduled Provider:Ursula Love MD [facility] Type:FM Open Appointment Date:04/11/2024 02:00:00 [...] (FT) Appointment Date:12/17/2024 08:00:00 AM Scheduled Provider: Location:[facility] Appointment Type:FM Medicare Wellness Subsequent Appointment Date:12/19/2024 [...] Aorta 08/08/24 [facility] Evaluation + Plan note Future Appointments Appointment Date:02/15/2024 01:00:00 PM Scheduled Provider: Location:.ONCOLOGY Appointment Type:ONC Injectafer ([place]) Appointment Date:02/15/2024 02:00:00 PM Scheduled Provider: Location:[facility] Appointment Type:ONC Injection ([place]) Appointment Date:03/14/2024 10:15:00 AM Scheduled Provider:Ana Kumar Location:.ONCOLOG[facility] Appointment Type:ONC Office Visit 30 ([place]) Appointment Date:03/14/2024 10:45:00 AM Scheduled Provider: Location:[facility] Appointment Type:ONC Injection ([place]) Appointment Date:03/25/2024 10:45:00 AM Scheduled Provider:Ursula Love MD Location:[facility] Appointment Type: Open Appointment Date:04/11/2024 02:00:00 PM [...] (FT) Appointment Date:12/17/2024 08:00:00 AM Scheduled Provider: Location:[facility] Appointment Type: Medicare Wellness Subsequent Appointment Date:12/19/2024 [...] Aorta 08/08/24 [facility] Evaluation + Plan note Future Appointments Appointment Date:03/14/2024 10:15:00 AM Scheduled Provider:Ana Kumar Location:.ONCOLOG[facility] Appointment Type:ONC Office Visit 30 ([place]) Appointment Date:03/14/2024 10:45:00 AM Scheduled Provider: Location:.ONCOLOG[facility] Appointment Type:ONC Injection ([place]) Appointment Date:03/25/2024 10:45:00 AM Scheduled Provider:Ursula Love MD [facility] Type:FM Open Appointment Date:04/11/2024 02:00:00 [...] (FT) Appointment Date:12/17/2024 08:00:00 AM Scheduled Provider: Location:[facility] Appointment Type:FM Medicare Wellness Subsequent Appointment Date:12/19/2024 [...] Aorta 08/08/24 [facility] Evaluation + Plan note Future Appointments Appointment Date:03/14/2024 10:15:00 AM Scheduled Provider:Ana Kumar Location:.ONCOLOG[facility] Appointment Type:ONC Office Visit 30 ([place]) Appointment Date:03/14/2024 10:45:00 AM Scheduled Provider: Location:.ONCOLOG[facility] Appointment Type:ONC Injection ([place]) Appointment Date:03/26/2024 10:45:00 AM Scheduled Provider:Ursula Love MD Location:[facility] Appointment Type: Open Appointment Date:04/11/2024 02:00:00 PM [...] (FT) Appointment Date:12/17/2024 08:00:00 AM Scheduled Provider: Location:[facility] Appointment Type: Medicare Wellness Subsequent Appointment Date:12/19/2024 02:15:00 PM Scheduled Provider: Location:[facility] Appointment Type:ONC Injection ([place]) Appointment Date:01/16/2025 02:05:00 PM Scheduled Provider: Location:.ONCOL[facility] Appointment Type:ONC Injection ([place]) Appointment Date:02/13/2025 02:15:00 PM Scheduled Provider: Location:.ONCOLOGY Appointment Type:ONC Injection ([place]) Appointment Date:03/13/2025 02:15:00 PM Scheduled Provider: Location:.ONCOLOG[facility] Appointment Type:ONC Injection ([place]) Future [facility] 08[facility] Evaluation + Plan note Future Appointments Appointment Date:03/26/2024 10:45:00 AM Scheduled Provider:Ursula Love MD Location:[facility] Appointment Type:FM Open Appointment Date:04/11/2024 02:00:00 PM [...] (FT) Appointment Date:12/17/2024 08:00:00 AM Scheduled Provider: Location:[facility] Appointment Type: Medicare Wellness Subsequent Appointment Date:12/19/2024 [...] Aorta 08/08/24 [facility] Evaluation + Plan note Future Appointments Appointment [...] (FT) Appointment Date:12/17/2024 08:00:00 AM Scheduled Provider: Location:[facility] Appointment Type:FM Medicare Wellness Subsequent Appointment Date:12/19/2024 [...] Aorta 08/08/24 [facility] Evaluation + Plan note Future Appointments Appointment [...] (FT) Appointment Date:12/17/2024 08:00:00 AM Scheduled Provider: Location:[facility] Appointment Type: Medicare Wellness Subsequent Appointment Date:12/19/2024 [...] Aorta 08/08/24 [facility] Evaluation + Plan note Future Appointments Appointment [...] (FT) Appointment Date:12/17/2024 08:00:00 AM Scheduled Provider: Location:[facility] Appointment Type: Medicare Wellness Subsequent Appointment Date:12/19/2024 [...] Aorta 08/08/24 [facility] Evaluation + Plan note Future Appointments Appointment [...] (FT) Appointment Date:12/17/2024 08:00:00 AM Scheduled Provider: Location:[facility] Appointment Type: Medicare Wellness Subsequent Appointment Date:12/19/2024 [...] Aorta 08/08/24 [facility] Evaluation + Plan note Future Appointments Appointment Date:08/29/2024 02:00:00 PM Scheduled Provider: Location:.ONCOLOGY [...] (FT) Appointment Date:12/17/2024 08:00:00 AM Scheduled Provider: Location:[facility] Appointment Type: Medicare Wellness Subsequent Appointment Date:12/19/2024 02:15:00 PM Scheduled Provider: Location:.ONCOLOGY Appointment Type:ONC Injection ([place]) Appointment Date:01/16/2025 02:05:00 PM Scheduled Provider: Location:.ONCOLOGY Appointment Type:ONC Injection ([place]) Appointment Date:01/30/2025 09:15:00 AM Scheduled Provider:Ursula Love MD Location:[facility] Appointment Type: Open Appointment Date:02/13/2025 02:15:00 PM Scheduled Provider: Location:.ONCOL[facility] Appointment Type:ONC Injection ([place]) Appointment Date:03/13/2025 02:15:00 PM Scheduled Provider: Location:.ONCOLOGY Appointment Type:ONC Injection ([place]) Future Scheduled TestsCBC w/ Auto Diff 06/07/24CBC w/ Auto Diff 09/07/24Comprehensive Metabolic Panel 06/07/24Comprehensive Metabolic Panel 09/07/24Ferritin 06/07/24Ferritin 09/07/24Iron Level 06/07/24Iron Level 09/07/24Iron Percent Saturation 06/07/24Iron Percent Saturation 09/07/24Transferrin 06/07/24Transferrin 09/07/24US Aorta 08/08/24 [facility] Evaluation note Diagnosis Persistent atrial fibrillation (HCC)- Primary Atrial fibrillation [facility] Atrial fibrillation, unspecified type (HCC)- Primary documented in this encounter [facility] Discharge instructions No data available for this section [facility] Progress note No data available for this section [facility] Reason for referral (narrative)* Outpatient Procedure (Routine) - Authorized Specialty Diagnoses / Procedures Referred By Contac t Referred To Contact [facility] [place] Diagnoses Persistent atrial fibrillation (HCC) Procedures ECG COMPLETE ECG ROUTINE ECG W/LEAST 12 LDS W/I&R Jannet Gonzalez MD [address] [place] [address] [place] [address] Referral ID Status Reason Start Date Expiration Date Visits Requested Visits Authorized [id number] Authorized Auto-Generat ed Referral 02/03/2022 02/03/2023 [address] [facility] for referral (narrative)* Outpatient Procedure (Routine) - Authorized Specialty Diagnoses / Procedures Referred By Contac t Referred To Contact [facility] [place] Diagnoses Atrial fibrillation, unspecified type (HCC) Procedures ECG COMPLETE ECG ROUTINE ECG W/LEAST 12 LDS W/I&R Jannet Gonzalez MD [address] [place] [address] [facility] [address] [place] [address] Referral ID Status Reason Start Date Expiration Date Visits Requested Visits Authorized [id number] Authorized Auto-Generat ed Referral 06/27/2024 06/27/2025 1 1 [facility] Summary Purpose Family History No Family [...] FoundDocuments on File Type Date 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 DATE CREATED AUTHOR AUTHOR'S ORGANIZ ATION 08/05/2024 [facility] Source Comments (unrecognize d section and content) In the event this informatio n is protected by the Federal Confidentiality of Alcohol and Drug Abuse Patient Records regulations: The Federal rules restrict any use of the information to criminally investigate or prosecute any alcohol or drug abuse patient.[facility] the event this information is protected by the Federal Confidentiality of Alcohol and Drug Abuse Patient Records regulations: The Federal rules restrict any use of the information to criminally investigate or prosecute any alcohol or drug abuse patient.[facility] Care Teams (unrecognized sec tion and content) Guyline Operator Relationship Specialty Start Date End Date Mark Browning PCP - General Family Practice 08/11/14 Jannet Gonzalez MD [address] [place] [address] Primary Staff Physician Cardiology 02/03/22 Guyline Operator Relationship Specialty Start Date End Date Mark [...] BE BASED ON THE PRIMARY CLINICAL RECORDS. [facility]. provides no warranty or guarantee of the accuracy or completeness of information in this document.
--- NOTE | 2024-08-08 09:21 | PM.CN ---
Consult Note: HPI Data of Consult Patient: known to practice within the last 3 years Requesting Physician: Love Snow NP Primary Care Provider: URSULA LOVE Consult Narrative Reason for consult: chronic hip pain Narrative: Donny Doherty a pleasant 64 year old male presents for evaluation of chronic bilateral hip pain. Pt has a hx of mild hip OA. Recently underwent right and left hip injections with Dr Newman with 1 month of improvement per pt. Previously was rating pain 0/10 but increasing to 8/10 burning ache increasing with standing walking, lying on his side, stairs, bending, activity, and sleeping flat. Patient has a hx of cervical DDD and radiculopathy, recently underwent lumbar xray which shows multilevel facet arthropathy but no significant DDD. patient cannot take NSAIDs as he is on ASA and eliquis. engaged in daily HEP without improvement. utilizing tylenol PM with little to no relief. Patients biggest complaint is inability to sleep due to pain. denies numbness tingling or weakness to BLE. recently underwent bilateral sij injection with 100% improvement ongoing, significant improvement in ability to sleep and walk without pain. pain 0/10 increasing to 0/10. cc:: CC: Love Snow NP Review of Systems ROS Status of ROS 10 or more systems reviewed and unremarkable except as noted in history and below Musculoskeletal Denies: back pain or joint pain PFSH [facility] Medical History (Updated 07/18/24 @ 08:56 by Love Snow NP) Arthritis ?M19.90 - Unspecified osteoarthritis, unspecified site (ICD-10) Vitamin B12 deficiency (dietary) anemia ?D51.8 - Other vitamin B12 deficiency anemias (ICD-10) Iron deficiency anemia ?D50.9 - Iron deficiency anemia, unspecified (ICD-10) Tear of distal tendon of biceps ?S46.219A - Strain of muscle, fascia and tendon of other parts of biceps, unspecified arm, initial encounter (ICD-10) History of heart attack ?I25.2 - Old myocardial infarction (ICD-10) Hypertension ?I10 - Essential (primary) hypertension (ICD-10) Positive colorectal cancer screening using Cologuard test ?R19.5 - Other fecal abnormalities (ICD-10) Hyperlipidemia ?E78.5 - Hyperlipidemia, unspecified (ICD-10) Atrial fibrillation ?I48.91 - Unspecified atrial fibrillation (ICD-10) Kidney stone ?N20.0 - Calculus of kidney (ICD-10) GERD (gastroesophageal reflux disease) ?K21.9 - Gastro-esophageal reflux disease without esophagitis (ICD-10) External bleeding hemorrhoids ?K64.4 - Residual hemorrhoidal skin tags (ICD-10) Dysuria ?R30.0 - Dysuria (ICD-10) Type 2 diabetes mellitus ?E11.9 - Type 2 diabetes mellitus without complications (ICD-10) CAD (coronary artery disease) ?I25.10 - Atherosclerotic heart disease of [place] coronary artery without angina pectoris (ICD-10) Aortic aneurysm ?I71.9 - Aortic aneurysm of unspecified site, without rupture (ICD-10) Surgical History History of tonsillectomy ?Z90.89 - Acquired absence of other organs (ICD-10) H/O repair of rotator cuff ?Z98.890 - Other specified postprocedural states (ICD-10) H/O cardiac catheterization ?Z98.890 - Other specified postprocedural states (ICD-10) H/O cardiac radiofrequency ablation ?Z98.890 - Other specified postprocedural states (ICD-10) Tear of biceps tendon ?S46.219A - Strain of muscle, fascia and tendon of other parts of biceps, unspecified arm, initial encounter (ICD-10) Family History Other Family history of myocardial infarction Heart failure Social History Within the past year, how often did you have a drink containing alcohol: 4 or more times a week Within the past year, how many standard drinks containing alcohol did you have on a typical day: 1 or 2 Within the past year, how often did you have six or more drinks on one occasion: never Total score: 0 Score interpretation: Questions 2 and 3 are 0. It can be assumed that the patient's drinking is below the recommended limits. However, please confirm the accuracy of the patient's alcohol intake over the last few months. 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 [employer] Known occupational exposures/hazards: No Highest level of school completed/degree received: high school graduate Meds Home Medications and Allergies Home Medications ?Medication ?Instructions ?Recorded ?Confirmed ?Type amlodipine 5 mg tablet 5 mg PO DAILY 09/11/23 07/29/24 History aspirin 81 mg chewable tablet 81 mg PO DAILY 09/11/23 07/29/24 History atorvastatin 80 mg tablet 80 mg PO DAILY 09/11/23 07/29/24 History clonidine 0.1 mg PO BID 09/11/23 07/29/24 History diltiazem HCl 30 mg PO DAILY PRN atrial 09/11/23 07/29/24 History fibrillation isosorbide mononitrate 120 mg 120 mg PO QAM 09/11/23 07/29/24 History tablet,extended release 24 hr lisinopril 20 mg tablet 20 mg PO DAILY 09/11/23 07/29/24 History metformin 500 mg tablet 1,000 mg PO BID 09/11/23 07/29/24 History metoprolol succinate 100 mg 200 mg PO DAILY 09/11/23 07/29/24 History tablet,extended release 24 hr (Toprol XL) omeprazole 20 mg capsule,delayed 20 mg PO DAILY 09/11/23 07/29/24 History release ranolazine 500 mg tablet,extended 500 mg PO BID 09/11/23 07/29/24 History release,12 hr apixaban 5 mg tablet (Eliquis) 5 mg PO BID 04/16/24 07/29/24 History ezetimibe 10 mg tablet 10 mg PO DAILY 04/16/24 07/29/24 History hydrocodone 5 mg-acetaminophen 325 1 tab PO BID PRN pain #3 tabs 07/18/24 07/29/24 Rx mg tablet Allergies Allergy/AdvReac Type Severity Reaction Status Date / Time Penicillins AdvReac Mild Rash Verified 07/29/24 09:29 Exam Constitutional Documenting provider has reviewed patient's vital signs: yes Common normals: no apparent distress, oriented x3, healthy appearing, alert and well nourished General appearance: cooperative [facility] Common normals: normocephalic, hearing grossly normal bilaterally and moist oral mucous membranes Head and scalp: normocephalic Eye Common normals: PERRL Pupil: PERRL Neck & C-Spine Common normals: full ROM General: normal visual inspection Chest Common normals: inspection of chest normal Respiratory Common normals: normal respiratory effort, no retractions and no use of accessory muscles Back & Pelvis Lumbar spine/lower back: lumbar ROM normal and straight leg raise negative bilaterally; no pain with ROM, no lumbar spinal tenderness, no paraspinal muscle tenderness and no paraspinal muscle spasm Sacroiliac joints: SI joints normal Other: left and right SIJ negative shelby(patricks), gaenslens, thigh thrust, compression test no radiculopathy on exam, strength 5/5 in BLE, sensation intact BLE no tenderness to bilateral GTB no pain with internal and external log roll of right hip negative on left hip Extremity Common normals: normal to inspection and full ROM Right lower extremity: no findings for hip joint Left lower extremity: no findings for hip joint Neuro Common normals: oriented x3, CN's II-XII intact bilaterally, moves all extremities, no focal motor deficits, no sensory deficits noted and deep tendon reflexes 2+ bilaterally Sensorium/orientation: alert Motor exam: strength 5/5 throughout and no movement abnormalities noted Psych Common normals: mental status grossly normal, thought process normal, cooperative, affect normal, speech normal and activity/motor behavior normal Speech: normal speech Thought process: normal thought process Results Imaging lumbar mri: Attestation: I have reviewed the pertinent imaging results. Radiologist's impression: 12-L1: No significant disc/facet abnormality, spinal stenosis, or foraminal stenosis. L1-L2: Early degenerative disc disease is present without focal protrusion or neural impingement. L2-L3: Early degenerative disc disease is present without focal protrusion or neural impingement. L3-L4: Mild diffuse disc bulging without significant loss of disc height. Minimal central canal and foraminal narrowing. L4-L5: Early DJD. Mild degenerative facet arthropathy. L5-S1: Moderate right, mild left foramen narrowing. Mild diffuse disc bulging without disc height reduction or significant disc desiccation. Mild degenerative facet arthropathy. Assessment and Plan Assessment and Plan (1) Sacroiliac joint dysfunction: (2) Lumbar degenerative disc disease: (3) Lumbar spondylosis: Plan significant ongoing improvement from bilateral SIJ injection f/u 3 months/PRN
== END 2024-08-08 08:51 | disposition home or self-care (01) ==
LOC: PM 08:50
PROVIDERS: PCP Family Medicine; Visit Provider Nurse Practitioner
DX: M53.3 Sacrococcygeal disorders, not elsewhere classified (principal); M51.369 Other intervertebral disc degeneration, lumbar region without mention of lumbar back pain or lower extremity pain; M47.816 Spondylosis without myelopathy or radiculopathy, lumbar region
CPT/HCPCS: G0463

== ENCOUNTER 2024-10-01 11:10 | Outpatient (OUT) | payer MEDICARE, SELFPAY ==
--- OUTSIDE RECORDS SUMMARY | 2024-10-01 11:35 | XMS_ITS | CCD ---
Author Organization 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 Name Role Phone Mark Browning Primary Care Provider Jannet Gonzalez MD Unavailable Ursula Love Primary Care Physician [phone] URSULA LOVE Admitting Unavailable URSULA LOVE Attending Unavailable URSULA LOVE Primary Care Unavailable URSULA LOVE Consulting Unavailable BAO, DR MOSCOSO Admitting Unavailable BAO, DR MOSCOSO Attending Unavailable URSULA LOVE Primary Care Unavailable [place], DR JANNET Parry Consulting Unavailable BAO, DR MOSCOSO Consulting Unavailable URSULA LOVE Consulting Unavailable Ursula Love Primary Care Physician Mark Browning DO Primary Care Provider Jannet Gonzalez MD Unavailable Doug NIELSON, Leonora Raphael Attending Unavailable Ursula Love Attending Unavailable Ursula Love Attending Unavailable Ursula Love Attending Unavailable Ursula Love Attending Unavailable Ana Spencer Attending Unavailable StevieboskeAna Attending Unavailable Ana Spencer Attending Unavailable Ana Spencer Admitting Unavailable Demboske, Ana Rivas Attending Unavailable Demboske, Ana Rivas Admitting Unavailable Demboske, Ana Evelyn Attending Unavailable DemboskeAna Attending Unavailable DemboskeAna Attending Unavailable DemAna brunson Attending Unavailable Ana Spencer Referring Unavailable Ana Spencer Attending Unavailable Ursula Love Attending Unavailable Ursula Love Attending Unavailable Ursula Love Attending Unavailable JOHN PAUL ELDRIDGE Attending Unavailable MOUKARBDARRIAN, BLANKA Attending Unavailable PARISA HERRON Attending Unavailable Demboske, Ana Rivas Attending Unavailable Demboske, Ana Rivas Admitting Unavailable Demboske, Ana Rivas Attending Unavailable Ursula Love Attending Unavailable Ursula Love Attending Unavailable Ursula Love. Attending Unavailable Demboske, Ana Rivas Attending Unavailable Ursula Love Admitting Unavailable Ursula Love Attending Unavailable Ursula Love Referring Unavailable Demboske, Ana Rivas Admitting Unavailable Demboske, Ana Rivas Attending Unavailable Adamowicz, Bharath Admitting Unavailable Adamowicz, Bharath Attending Unavailable Ursula Love Admitting Unavailable Ursula Love Attending Unavailable Stevieboske, Ana Rivas Attending Unavailable Ursula Love ENelly Referring Unavailable Demboske, Ana Rivas Attending Unavailable Demboske, Ana Rivas Attending Unavailable Demboske, Ana Rivas Attending Unavailable Ursula Love Admitting Unavailable NILJose Luis Richard Attending Unavailable Ursula Love Attending Unavailable Ursula Love Attending Unavailable Ursula Love Attending Unavailable Allergies Allergy Classification Reported Allergen(s) Allergy Type Date of Onset Reaction(s) Facility (20 sources) Penicillins; 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: [penicillins] Propensity to adverse reactions to drug 4 Hives Weal (disorder) [facility] (1 source) Penicillins Drug allergy (disorder) 4 [facility] (1 source) Penicillins Propensity to adverse reactions to drug 4 [facility] (3 sources) No Known Medication Allergies; 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: [No Known Medication Allergies] Propensity to adverse reactions (disorder) [facility] Repository Medications Current Medications Medication Drug Class(es) [...] MOUTH DAILY apixaban 5 mg oral tablet (18 sources) Factor Xa Inhibitor Start: 12-18-2023 take [...] day(s), # 90 tab(s), Refills(s) 0, Pharmacy: [facility]/pharmacy #[id number] Start Date: 04/01/22 Stop Date: 05/01/22 Status: Ordered Centrum Minis Men 50+ oral tablet (16 sources) Start: 12-28-2023 take 1 tablet by [...] beat (AFIB)). ezetimibe 10 mg oral tablet (9 sources) Dietary Cholesterol Absorption Inhibitor Start: 03-22-2024 [...] (20 sources) Angiotensin Converting Enzyme Inhibitor Start: 04-01-2022 take 1 tablet by mouth once daily lisinopril 10 mg Tab 10 mg = 1 tab(s), Oral, Daily, # 90 tab(s), Refills(s) 0 Start Date: 04/01/22 Status: Ordered Start: 04-01-2022 lisinopril 20 mg Tab See Instructions, TAKE 1 TABLET DAILY, # 90 tab(s), Refills(s) 1, Pharmacy: [facility]/pharmacy #[id number], 179, cm, 03/26/24 10:53:00 EDT, Height/Length Dosing, 86, kg, 03/26/24 10:53:00 EDT, Weight Dosing Start Date: 03/26/24 Status: Ordered Comment on above: lisinopril 20 mg tab let TAKE ONE TABLET BY MOUTH ONCE DAILY meloxicam 15 mg oral tablet (1 source) Nonsteroidal Anti-inflammatory Drug Start: 2 take 1 tablet by mouth once daily meloxicam 15 mg oral tablet 15 mg = 1 tab(s), Oral, Daily, # 30 tab(s), Refills(s) 0, Pharmacy: [facility]/pharmacy #[id number] Start Date: 04/01/22 Status: Ordered metFORMIN hydrochloride 500 mg oral tablet (20 sources) Biguanide Start: 4 metformin 500 mg Tab See Instructions, TAKE 2 TABLETS TWICE A DAY, # 360 tab(s), Refills(s) 1, Pharmacy: [facility], 179, cm, 03/26/24 10:53:00 EDT, Height/Length Dosing, 86, kg, 03/26/24 10:53:00 EDT, Weight Dosing Start Date: 06/19/24 Status: Ordered Start: 07-06-2023 metformin 500 mg Tab See Instructions, TAKE 2 TABLETS TWICE A DAY, # 360 tab(s), Refills(s) 1, [facility]: [facility], 178, cm, 12/18/23 13:19:00 EST, Height/Length Dosing, 89.1, kg, 12/18/23 13:19:00 EST, Weight Dosing Start Date: 12/19/23 Status: Ordered Start: 04-25-2023 take 2 tablets by mo uth twice daily metformin 500 mg Tab 1,000 mg = 2 tab(s), Oral, BID, TAKE TWO TABLETS BY MOUTH TWICE A DAY, # 360 tab(s), Refills(s) 1, Pharmacy: [facility], 178, cm, 12/19/22 9:57:00 EST, Height/Length Dosing, 90.4, kg, 12/19/22 9:57:00 EST, Weight Dosing Start Date: 04/25/23 Status: Ordered Start: 04-01-2022 End: 09-28-2022 take 2 tablets by mouth twice daily metformin 500 mg ER Tab 1,000 mg = 2 tab(s), Oral, BID, X 90 day(s), # 360 tab(s), Refills(s) 1, Pharmacy: [facility] Start Date: 04/01/22 Stop [...] DAILY, # 90 cap(s), Refills(s) 1, Pharmacy: [facility], 179, cm, 03/26/24 10:53:00 EDT, Height/Length Dosing, 86, kg, 03/26/24 10:53:00 EDT, Weight Dosing Start Date: 05/06/24 Status: Ordered Start: 11-20-2023 take 1 capsule by [facility] once daily omeprazole 20 mg Cap-DR 20 mg = 1 cap(s), Oral, Daily, # 90 cap(s), Refills(s) 1, Pharmacy: [facility], 178, cm, 08/29/23 14:28:00 EST, Height/Length Dosing, 90.8, kg, 08/29/23 14:28:00 EST, Weight Dosing Start Date: 11/20/23 Status: Ordered Start: 07-03-2023 take 1 capsule by [facility] once daily omeprazole 20 mg Cap-DR 20 mg = 1 cap(s), Oral, Daily, # 90 cap(s), Refills(s) 1, Pharmacy: [facility], 178, cm, 07/03/23 7:24:00 EDT, Height/Length Dosing, 90, kg, 07/03/23 7:24:00 EDT, Weight Dosing Start Date: 07/03/23 Status: Ordered Start: 08-29-2014 End: 09-28-2022 take 1 capsule by mouth once daily omeprazole 20 mg Cap-DR 20 mg = 1 cap(s), Oral, Daily, X 90 day(s), # 90 cap(s), Refills(s) 1, Pharmacy: [facility] Start Date: 04/01/22 Stop Date: 09/28/22 Status: Ordered Comment on above: Take 1 capsule by [facility] once daily. ProFe 180 mg oral capsule (8 sources) Start: 12-25-2023 take 1 capsule by mouth once daily ProFe 180 mg oral capsule 180 mg = 1 cap(s), Oral, Daily, # 100 cap(s), Refills(s) 0, Pharmacy: [facility]/pharmacy #[id number], 178, cm, 12/18/23 13:19:00 EST, [...] Daily, # 10 cap(s), Refills(s) 0, Pharmacy: [facility]/pharmacy #[id number], 178, cm, 07/19/23 11:20:00 EDT, [...] Coronary arteriosclerosis; 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: [Atherosclerotic heart disease of [place] coronary artery without angina pectoris] Onset: 4 10-02-2014 Chronic Deficiency and other anemia (16 sources) Microcytic anemia 12-28-2023 Episodic Deficiency and other anemia (3 sources) Iron deficiency anemia; 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: [Iron deficiency [...] 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: [Dysuria] Onset: 3 07-19-2023 Episodic Hemorrhoids (20 sources) Bleeding external hemorrhoids 08-02-2023 Episodic Hyperplasia of prostate (20 sources) Benign prostatic hypertrophy without outflow obstruction; 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: [Benign prostatic hyperplasia without lower urinary tract symptoms] Onset: 3 Chronic Nutritional deficiencies (1 source) Vitamin B deficiency; 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: [Deficiency of other specified B group vitamins] Onset: 4 Episodic Other and unspecified benign neoplasm (1 source) Benign neoplasm of rectum; 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: [Benign neoplasm of rectum] Onset: 3 Episodic Other and unspecified benign neoplasm (19 sources) Adenomatous polyp of rectum 10-04-2023 Episodic [...] unspecified] Onset: 4 Chronic Other gastrointestinal disorders (16 sources) Splenomegaly 12-28-2023 Episodic Other non-traumatic joint disorders (9 sources) Hip pain 03-26-2024 Episodic Other nutritional; [...] endocrine; and metabolic disorders (19 sources) Overweight 08-29-2023 Episodic Residual codes; unclassified (20 sources) Family history of malignant neoplasm of kidney; 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: [Family history of malignant neoplasm of kidney] Onset: 3 Episodic Screening and history of mental health and substance abuse codes (20 sources) H/O: Disorder; 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: [Personal history of nicotine dependence] Onset: 3 Episodic Unclassified (20 sources) Non-smoker 12-19-2022 Unclassified (20 sources) Patient encounter status 07-03-2023 Unclassified (2 sources) Other persistent atrial fibrillation; 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: [Other persistent atrial fibrillation] Onset: 3 Unclassified (1 source) Infrarenal abdominal aortic aneurysm, without rupture; 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: [Infrarenal abdominal aortic aneurysm, without rupture] Onset: 4 Unclassified (1 source) Aneurysm of the ascending aorta, without rupture; 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: [Aneurysm of the ascending aorta, without rupture] Onset: 4 Past or Other Problems Problem Classification Problem Date Documented Date Episodic/Chronic Other aftercare (2 sources) Long-term current use of anticoagulant; 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: [alf (current) use of 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] Onset: 11-28-2017 11-28-2017 [...] Results Test Name Value Interpretation Reference [facility] 09-27-20 Population [facility] Case Information Case Priority: None Programs: -- Referral Source: [employer] Technician Referral Reason: Disease management Case Type: Chronic Care Management Risk Score: -- Case Status: Active (December 28, 2023) Date Assigned: December 19, 2023 Assigned By: Christian Hernandez Date Enrolled: December 28, 2023 Assigned Primary Personnel: Christian Hernandez Assigned Secondary Personnel: -- Case Physician: Ursula Love MD Ongoing AAA (abdominal aortic aneurysm) Aortic aneurysm BMI 28.0-28.9,adult BPH (benign prostatic hyperplasia) CAD in [place] artery Controlled type 2 diabetes mellitus without [...] Daily Allergies penicillins (Hives) Social History Alcohol Current. Beer. 3-5 times per week., 07/31/2024 Employment/School Employed, Work/School description: [employer]. Highest education level: High school. 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 equipment: No., 09/02/2014 Substance Abuse - No Risk, 08/29/2014 Never., 07/31/2024 Tobacco - No Risk, 08/29/2014 Former smoker, quit more than 30 days ago Tobacco Use:. Household tobacco concerns: No., 09/09/2024 Family History Acute myocardial infarction: Brother. Heart failure: Mother. Screenings and Assessments 12/28/23 08:18:00 Result Name Value Comment CCM Program Enrollment Verbally agreed to receive CCM services CCM Written Consent Written consent in progress CCM Verbal Consent By Self 12/28/23 07:00:00 Result Name Value Comment HIPPA Verified Type of Contact In person at home CM Preferred Spoken Language Uruguayan CM Preferred Written Language Uruguayan Preferred Communication Mode Verbal Ability to Read/Write Able to read, Able to write Preferred Salutation Preferred Method of Contact Cell Cell Phone [phone] Best Time to Visit or Contact 7-10 am Best Day to Visit or Contact No preference Appointment Reminders Patient portal, Other secured messaging Preferred Way to Send PHI Patient portal Preferred Mailing Address [address] [place] [address] Learning Style Pref Patient Verbal explanation Learning [...] Shares bed Support System Spouse/Significant other Primary Roll Finisher of Home Medication Self Current DME at Home No Currently Receiving Skilled Services No Skilled Service Needs Anticipated No Barriers to Care None Home Barriers None Employment Status Retired Financial Issues None Sources of Income Social Security Patient Account Services Referral No Pt/CG Understand Health Plan Benefits Yes Benefits Adequate for the Members Needs Yes Rate Your Physical He (more content not included)... Normal [facility] Prep for Procedureon 024 Prep for Procedure [id number] DohertyMarcelle 1960 M Date Provider Department Center 09/11/2024 [facility] Family History Problem Relation Age of Onset Coronary artery disease Father Atrial fibrillation Father Heart attack Brother Family Status - Relation Status Age at Father Brother Normal [facility] Office Visiton 09-10-2024 Follow-up visit [id number] Marcelle Doherty 1960 M Date Provider Department Center 09/10/2024 241-[facility] Family History Problem Relation Age of Onset Coronary artery disease Father Atrial fibrillation Father Heart attack Brother Family Status - Relation Status Age at Father Brother Level of Service:06193 IN OFFICE/OUTPATIENT ESTABLISHED LOW MDM 20 MIN Reason for Visit and Comments: Follow-up [[id number]] - A Fib management Normal [facility] CBC w/ Auto Diffon 4 Basophils/100 WBC (Bld) 0.6 % Normal 0.0-2.0 [facility] Comment on above: Performed By: #### 2 [id number] #### [facility] [address] [place] [address] Basophils/Leukocytes Auto (Bld) [Pure # fraction] 0.0 E9/L Normal 0.0-0.2 [facility] Comment on above: Performed By: #### 2 [id number] #### [facility] [address] [place] [address] Eosinophils (Bld) [#/Vol] 0.1 E9/L Normal 0.0-0.5 [facility] Comment on above: Performed By: #### 2 [id number] #### [facility] [address] [place] [address] Eosinophils/100 WBC (Bld) 1.7 % Normal 0.0-8.0 [facility] Comment on above: Performed By: #### 2 [id number] #### [facility] [address] [place] [address] Erythrocyte distribution width (RBC) [Ratio] 13.9 % Normal 10.9-14.2 [facility] Comment on above: Performed By: #### 2 [id number] #### [facility] [address] [place] [address] Hematocrit (Bld) [Volume fraction] 39.6 % Normal 37.7-49.0 [facility] Comment on above: Performed By: #### 2 [id number] #### [facility] [address] [place] [address] Hemoglobin (Bld) [Mass/Vol] 14.0 g/dL Normal 13.5-17.5 [facility] Comment on above: Performed By: #### 2 [id number] #### [facility] [address] [place] [address] Lymphocytes (Bld) [#/Vol] 1.5 E9/L Normal 1.0-4.0 [facility] Comment on above: Performed By: #### 2 [id number] #### [facility] [address] [place] [address] Lymphocytes/100 WBC (Bld) 28.4 % Normal 14.0-50.0 [facility] Comment on above: Performed By: #### 2 193027 #### [facility] [address] [place] [address] MCH (RBC) [Entitic mass] 31.9 pg Normal 27.0-34.0 [facility] Comment on above: Performed By: #### 2 [id number] #### [facility] [address] [place] [address] MCHC (RBC) [Mass/Vol] 35.3 g/dL Normal 31.4-36.0 [facility] Comment on above: Performed By: #### 2 [id number] #### [facility] [address] [place] [address] MCV (RBC) [Entitic vol] 90.5 fL Normal 80.0-100.0 [facility] Comment on above: Performed By: #### 2 [id number] #### [facility] [address] [place] [address] Monocytes (Bld) [#/Vol] 0.6 E9/L Normal 0.2-1.0 [facility] Comment on above: Performed By: #### 2 [id number] #### [facility] [address] [place] [address] Neutrophils (Bld) [#/Vol] 3.2 E9/L Normal 2.0-7.5 [facility] Comment on above: Performed By: #### 2 [id number] #### [facility] [address] [place] [address] Neutrophils/100 WBC (Bld) 58.2 % Normal 36.0-75.0 [facility] Comment on above: Performed By: #### 2 [id number] #### [facility] [address] [place] [address] Platelet mean volume (Bld) [Entitic vol] 9.3 fL Normal 6.4-10.8 [facility] Comment on above: Performed By: #### 2 [id number] #### [facility] [address] [place] [address] Platelets (Bld) [#/Vol] 144.0 E9/L Low 150.0-500.0 [facility] Comment on above: Performed By: #### 2 [id number] #### [facility] [address] [place] [address] RBC (Bld) [#/Vol] 4.4 E12/L Normal 4.3-5.9 [facility] Comment on above: Performed By: #### 2 [id number] #### [facility] [address] [place] [address] WBC corrected for nucl RBC Auto (Bld) [#/Vol] 5.4 E9/L Normal 4.0-11.0 [facility] Comment on above: Performed By: #### 2 [id number] #### [facility] [address] [place] [address] CHEMISTRYOrdered By: SYSTEM SYSTEM on 09-04-2024 Albumin [Mass/Vol] 4.2 g/dL Normal 3.3 - 5.0 gm/dL R emisol Chem Albumin/Globulin [Mass ratio] 2.5 {ratio} High 1.1 - 2.2 [facility] Chem ALP [Catalytic activity/Vol] 53 [iU]/d Normal 21 - 98 Int._Unit/L [facility] Chem ALT No additional P-5'-P [Catalytic activity/Vol] 41 [iU]/d Normal 6 - 46 Int._Unit/L [facility] Chem Anion gap [Moles/Vol] 12 mmol/L Normal 6 - 16 mEq/L R emisol Chem AST [Catalytic activity/Vol] 23 [iU]/d Normal 5 - 43 Int._Unit/L [facility] Chem Bilirubin [Mass/Vol] 1.6 mg/dL High 0.0 - 1.1 mg/dL [facility] Chem Calcium [Mass/Vol] 9.4 mg/dL Normal 8.9 - 11. 1 mg/dL [facility] Chloride [Moles/Vol] 99 mmol/L Low 101 - 1 11 mmol/L [facility] Chem CO2 [Moles/Vol] 28 mmol/L Normal 21 - 31 mmol/L Remis ol Chem Creatinine [Mass/Vol] 0.8 mg/dL Normal 0.5 - 1.3 mg/d L [facility] Chem eGFR 97 mL/min/1.73 m2 Normal >=59mL/min /1.73 m2 [facility] Ferritin [Mass/Vol] 146 ng/mL Normal 24 - 336 ng/mL R emisol Chem Globulin (S) [Mass/Vol] 1.7 g/dL Normal 1.4 - 4.0 gm/dL [facility] Glucose [Mass/Vol] 121 mg/dL Normal 55 - 199 mg/dL Re misol Chem Iron [Mass/Vol] 118 ug/dL Normal 35 - 153 mcg/dL Richard modesto Chem Iron binding capacity [Mass/Vol] 309 ug/dL Normal 250 - 400 mcg/dL Rem[facility] Chem Iron saturation [Mass fraction] 38 % Normal 20 - 50 % [facility] Chem Potassium [Moles/Vol] 4.4 mmol/L Normal 3.5 - 5.3 mmol/L [facility] Chem Protein [Mass/Vol] 5.9 g/dL Low 6.0 - 7.8 gm/dL R emisol Chem Sodium [Moles/Vol] 135 mmol/L Normal 135 - 145 mmol/L [facility] Chem Transferrin [Mass/Vol] 221 mg/dL Normal 200 - 370 mg/dL [facility] Chem Urea nitrogen [Mass/Vol] 13 mg/dL Normal 5 - 21 mg/dL [facility] Chem Urea nitrogen/Creatinine [Mass ratio] 16 mg/mg Normal 10 - 20 [facility] Chem CMPon 09-04-2024 Albumin [Mass/Vol] 4.2 g/dL Normal 3.3-5.0 [facility] Comment on above: Performed By: #### 2 [id number] #### [facility] [address] [place] [address] Albumin/Globulin (S) [Mass conc ratio] 2.5 High 1.1-2.2 [facility] Comment on above: Performed By: #### 2 [id number] #### [facility] [address] [place] [address] ALP [Catalytic activity/Vol] 53 Int._Unit/L Normal 21-98 [facility] Comment on above: Performed By: #### 2 [id number] #### [facility] [address] [place] [address] ALT No additional P-5'-P [Catalytic activity/Vol] 41 Int._Unit/L Normal 6-46 [facility] Comment on above: Performed By: #### 2 [id number] #### [facility] [address] [place] [address] Anion gap [Moles/Vol] 12 mmol/L Normal 6-16 [facility] Comment on above: Performed By: #### 2 [id number] #### [facility] [address] [place] [address] AST [Catalytic activity/Vol] 23 Int._Unit/L Normal 5-43 [facility] Comment on above: Performed By: #### 2 [id number] #### [facility] [address] [place] [address] Bilirubin [Mass/Vol] 1.6 mg/dL High 0.0-1.1 [facility] Comment on above: Performed By: #### 2 [id number] #### [facility] [address] [place] [address] Calcium [Mass/Vol] 9.4 mg/dL Normal 8.9-11.1 [facility] Comment on above: Performed By: #### 2 [id number] #### [facility] [address] [place] [address] Chloride [Moles/Vol] 99 mmol/L Low 101-111 [facility] Comment on above: Performed By: #### 2 [id number] #### [facility] [address] [place] [address] CO2 [Moles/Vol] 28 mmol/L Normal 21-31 [facility] Comment on above: Performed By: #### 2 [id number] #### [facility] [address] [place] [address] Creatinine [Mass/Vol] 0.8 mg/dL Normal 0.5-1.3 [facility] Comment on above: Performed By: #### 2 [id number] #### [facility] [address] [place] [address] Globulin (S) [Mass/Vol] 1.7 g/dL Normal 1.4-4.0 [facility] Comment on above: Performed By: #### 2 [id number] #### [facility] [address] [place] [address] Glucose [Mass/Vol] 121 mg/dL Normal 55-199 [facility] Comment on above: Performed By: #### 2 [id number] #### [facility] [address] [place] [address] Potassium [Moles/Vol] 4.4 mmol/L Normal 3.5-5.3 [facility] Comment on above: Performed By: #### 2 [id number] #### [facility] [address] [place] [address] Protein [Mass/Vol] 5.9 g/dL Low 6.0-7.8 [facility] Comment on above: Performed By: #### 2 [id number] #### [facility] [address] [place] [address] Sodium [Moles/Vol] 135 mmol/L Normal 135-145 [facility] Comment on above: Performed By: #### 2 093695 #### [facility] [address] [place] [address] Urea nitrogen [Mass/Vol] 13 mg/dL Normal 5-21 [facility] Comment on above: Performed By: #### 2 063290 #### [facility] [address] [place] [address] Urea nitrogen/Creatinine [Mass ratio] 16 No Units Normal 10-20 [facility] Comment on above: Performed By: #### 2 [id number] #### [facility] [address] [place] [address] Ferritinon 11-20-2024 Ferritin [Mass/Vol] 146 ng/mL Normal 24-336 [facility] Comment on above: Performed By: #### 2 [id number] #### [facility] [address] [place] [address] HEMATOLOGYOrdered By: SYSTEM SYSTEM on 09-04-2024 Basophils/100 WBC (Bld) 0.6 % Normal 0.0 - 2.0 % Rem[facility] Heme Basophils/Leukocytes Auto (Bld) [Pure # fraction] 0.0 E9/L Normal 0.0 - 0.2 E9/L [facility]e Eosinophils (Bld) [#/Vol] 0.1 E9/L Normal 0.0 - 0.5 E9/L [facility]e Eosinophils/100 WBC (Bld) 1.7 % Normal 0.0 - 8.0 % [facility] Erythrocyte distribution width (RBC) [Ratio] 13.9 % Normal 10.9 - 14.2 % [facility] Hematocrit (Bld) [Volume fraction] 39.6 % Normal 37.7 - 49.0 % [facility] Hemoglobin (Bld) [Mass/Vol] 14.0 g/dL Normal 13.5 - 17.5 gm/dL [facility] Lymphocytes (Bld) [#/Vol] 1.5 E9/L Normal 1.0 - 4.0 E9/L [facility] Lymphocytes/100 WBC (Bld) 28.4 % Normal 14.0 - 50.0 % [facility] MCH (RBC) [Entitic mass] 31.9 pg Normal 27.0 - 34.0 pg Remisol Heme MCHC (RBC) [Mass/Vol] 35.3 g/dL Normal 31.4 - 36.0 gm/dL [facility]e MCV (RBC) [Entitic vol] 90.5 fL Normal 80.0 - 100.0 fL [facility] Monocytes (Bld) [#/Vol] 0.6 E9/L Normal 0.2 - 1.0 E9/L [facility] Monocytes/100 WBC (Bld) 11.1 % Normal 4.0 - 14.0 % [facility] Neutrophils (Bld) [#/Vol] 3.2 E9/L Normal 2.0 - 7.5 E9/L [facility] Neutrophils/100 WBC (Bld) 58.2 % Normal 36.0 - 75.0 % [facility] Platelet mean volume (Bld) [Entitic vol] 9.3 fL Normal 6.4 - 10.8 fL [facility] Platelets (Bld) [#/Vol] 144.0 E9/L Low 150.0 - 500.0 E9/L Remisol Heme RBC (Bld) [#/Vol] 4.4 E12/L Normal 4.3 - 5.9 E12/L Re misol Heme WBC corrected for nucl RBC Auto (Bld) [#/Vol] 5.4 E9/L Normal 4.0 - 11.0 E9/L Remisol Heme Ironon 09-04-2024 Iron [Mass/Vol] 118 microgram/dL Normal 35-153 [facility] Comment on above: Performed By: #### 2 [id number] #### [facility] [address] [place] [address] Iron Saturationon 09-04-2024 Iron binding capacity [Mass/Vol] 309 microgram/dL Normal 250-400 [facility] Comment on above: Performed By: #### 2 [id number] #### [facility] [address] [place] [address] Iron saturation [Mass fraction] 38 % Normal 20-50 [facility] Comment on above: Performed By: #### 2 [id number] #### [facility] [address] [place] [address] Transferrinon 09-04-2024 Transferrin [Mass/Vol] 221 mg/dL Normal 200-370 [facility] Comment on above: Performed By: #### 2 [id number] #### [facility] [address] [place] [address] eGFRon 09-04-2024 eGFR 97 mL/min/1.73 m2 Normal >=59 [facility] Comment on above: Performed By: #### 1 [id number] #### [facility] [address] [place] [address] 36on 08-02-2024 36 Late entry Spoke with Bonita 07/23/24. Explained that patient would need to come to [facility] to have 24hr BP monitor placed. Options for returning would depend on when patient was coming to have it placed. Bonita was going to call and speak with patient and let me know. [facility] Ambulatory Visit Summaryon 1 Ambulatory Visit Summary Ambulatory Visit Summary MARCELLE DOHERTY :1960 Visit Date:08/01/2024 Ambulatory Visit Instructions Your Diagnosis CAD in [place] artery Controlled type 2 diabetes mellitus without [...] Oncology Monday 8:00 AM EST With: Where: [address] [address]- 2024 2:15 PM EST With: Where: [facility] 2024 2:05 PM EDT With: Where: Oncology 2024 9:15 AM EDT With: Km INELSON, Ursula Porter Where: [address] [place] [address]- February. 2024 2:15 PM EDT With: Where: [facility] February. 2024 2:15 PM EDT With: Where: [facility] [...] a da (more content not included)... Normal [facility] Family Medicine Office/Clini c Noteon 08-01-2024 Family [...] + Bowel sounds Assessment/Plan 1. CAD in [place] artery (I25.10: Atherosclerotic heart disease of [place] coronary artery without angina pectoris) Continue monitoring [...] Current tobacco (more content not included)... Normal [facility] Comment on above: Result Comment: Elec tronically Signed By: Ursula Love MD\.br\Date and Time Signed: [facility]01[facility] Case Information Case Priority: None Programs: -- Referral Source: Planetarium Sky Show Technician Referral Reason: Disease management Case Type: Chronic Care Management Risk Score: -- Case Status: Active (December 28, 2023) Date Assigned: December 19, 2023 Assigned By: Christian Hernandez Date Enrolled: December 28, 2023 Assigned Primary Personnel: Christian Hernandez Assigned Secondary Personnel: -- Case Physician: Ursula Love MD Problems Ongoing AAA (abdominal aortic aneurysm) Aortic aneurysm BMI 28.0-28.9,adult BPH (benign prostatic hyperplasia) CAD in [place] artery Controlled type 2 diabetes mellitus without [...] CCM Program Enrollment Verbally agreed to receive [facility] services CCM Written Consent Written consent in progress CCM Verbal Consent By Self 12/28/23 07:00:00 Result Name Value Comment HIPPA Verified Type of Contact In person at home CM Preferred Spoken Language Uruguayan CM Preferred Written Language Uruguayan Preferred Communication Mode Verbal Ability to Read/Write Able to read, Able to write Preferred Salutation Preferred Method of Contact Cell Cell Phone [phone] Best Time to Visit or Contact 7-10 am Best Day to Visit or Contact No preference Appointment Reminders Patient portal, Other secured messaging Preferred Way to Send PHI Patient portal Preferred Mailing Address [address] [place] [address], [phone] Learning Style Pref Patient Verbal explanation Learning [...] Shares bed Support System Spouse/Significant other Primary Roll Finisher of Home Medication Self Current DME at Home No Currently Receiving Skilled Services No Skilled Service Need (more content not included)... Normal [facility] 36on 07-19-[address] results from [...] this and what it all entails? Thanks. Normal [facility] Orders Onlyon 07-15-2024 Orders Only [id number] Marcelle Doherty 1960 Date Provider Department Center 07/15/2024 895-ALESHA [facility]ON [facility] Family History Problem Relation Age of Onset Coronary artery disease Father Atrial fibrillation Father Heart attack Brother Family Status - Relation Status Age at Father Brother Normal [facility] Office Visiton 07-12-2024 Follow-up visit [id number] Marcelle Doherty 1960 Date Provider Department Center 07/12/2024 Yvonne-BLANKA ERAZO [facility] Family History Problem Relation Age of Onset Coronary artery disease Father Atrial fibrillation Father Heart attack Brother Family Status - Relation Status Age at Father Brother Level of Service:13975 IN OFFICE/OUTPATIENT ESTABLISHED MOD MDM 30 MIN Normal [facility] Orders Onlyon 07-11-2024 Orders Only [id number] Marcelle Doherty 1960 Date Provider Department Center 07/11/2024 3204-BUTCH MONSALVE [facility] Family History Problem Relation Age of Onset Coronary artery disease Father Atrial fibrillation Father Heart attack Brother Family Status - Relation Status Age at Father Brother Normal [facility] Population Healthon 06-28-20 Population [facility] Population Health Case Information Case Priority: None Programs: -- Referral Source: Planetarium Sky Show Technician Referral Reason: Disease management Case Type: Chronic Care Management Risk Score: -- Case Status: Active (December 28, 2023) Date Assigned: December 19, 2023 Assigned By: Christian Hernandez Date Enrolled: December 28, 2023 Assigned Primary Personnel: Christian Hernandez Assigned Secondary Personnel: -- Case Physician: Ursula Love MD Ongoing AAA (abdominal aortic aneurysm) Aortic aneurysm BMI 28.0-28.9,adult BPH (benign prostatic hyperplasia) CAD in [place] artery Controlled type 2 diabetes mellitus without [...] CCM Program Enrollment Verbally agreed to receive [facility] services CCM Written Consent Written consent in progress CCM Verbal Consent By Self 12/28/23 07:00:00 Result Name Value Comment HIPPA Verified Type of Contact In person at home CM Preferred Spoken Language U[place]ayan CM Preferred Written Language [place]ayan Preferred Communication Mode Verbal Ability to Read/Write Able to read, Able to write Preferred Salutation MrNelly Preferred Method of Contact Cell Cell Phone [phone] Best Time to Visit or Contact 7-10 am Best Day to Visit or Contact No preference Appointment Reminders Patient portal, Other secured messaging Preferred Way to Send PHI Patient portal Preferred Mailing Address [address] [place] [address], [facility] Learning Style Pref Patient Verbal explanation [...] Shares bed Support System Spouse/Significant other Primary Roll Finisher of Home Medication Self Current DME at Home No Currently Receiving Skilled Services No Skilled Service Need (more content not included)... Normal [facility] 06-11-20 [facility] Case Information Case Priority: None Programs: -- Referral Source: Planetarium Sky Show Technician Referral Reason: Disease management Case Type: Chronic Care Management Risk Score: -- Case Status: Active (December 28, 2023) Date Assigned: December 19, 2023 Assigned By: Christian Hernandez Date Enrolled: December 28, 2023 Assigned Primary Personnel: Christian Hernandez Assigned Secondary Personnel: -- Case Physician: Km NIELSON, Ursula Leos Ongoing AAA (abdominal aortic aneurysm) Aortic aneurysm BMI 28.0-28.9,adult BPH (benign prostatic hyperplasia) CAD in [place] artery Controlled type 2 diabetes mellitus without [...] CCM Program Enrollment Verbally agreed to receive [facility] services CCM Written Consent Written consent in progress CCM Verbal Consent By Self 12/28/23 07:00:00 Result Name Value Comment HIPPA Verified Type of Contact In person at home CM Preferred Spoken Language Uruguayan CM Preferred Written Language [place]ayan Preferred Communication Mode Verbal Ability to Read/Write Able to read, Able to write Preferred Salutation MrNelly Preferred Method of Contact Cell Cell Phone [phone] Best Time to Visit or Contact 7-10 am Best Day to Visit or Contact No preference Appointment Reminders Patient portal, Other secured messaging Preferred Way to Send PHI Patient portal Preferred Mailing Address [address] [place] [address], [phone] Learning Style Pref Patient Verbal explanation Learning [...] Shares bed Support System Spouse/Significant other Primary Roll Finisher of Home Medication Self Current DME at Home No Currently Receiving Skilled Services No Skilled Service Needs Anticipated No Barriers to Care None Home Barriers None (more content not included)... Normal [facility] 36on 06-04-2024 36 Regarding carotid duplex performed on 05/29/2024: MERVAT Kendrick MA Let them know less than 49% stenosis of both carotids- really very good- Continue all meds and we will see them next time Probably a repeat carotid in 1-3 years- unless symptoms Patient made aware via email. Normal [facility] Population Healthon 04-25-20 24 [facility] Case Information Case Priority: None Programs: -- Referral Source: Planetarium Sky Show Technician Referral Reason: Disease management Case Type: Chronic Care Management Risk Score: -- Case Status: Active (December 28, 2023) Date Assigned: December 19, 2023 Assigned By: Christian Hernandez Date Enrolled: December 28, 2023 Assigned Primary Personnel: Christian Hernandez Assigned Secondary Personnel: -- Case Physician: Ursula Love MD Ongoing AAA (abdominal aortic aneurysm) Aortic aneurysm BMI 28.0-28.9,adult BPH (benign prostatic hyperplasia) CAD in [place] artery Controlled type 2 diabetes mellitus without [...] CCM Program Enrollment Verbally agreed to receive [facility] services CCM Written Consent Written consent in progress CCM Verbal Consent By Self 12/28/23 07:00:00 Result Name Value Comment HIPPA Verified Type of Contact In person at home CM Preferred Spoken Language Uruguayan CM Preferred Written Language Uruguayan Preferred Communication Mode Verbal Ability to Read/Write Able to read, Able to write Preferred Salutation Preferred Method of Contact Cell Cell Phone [phone] Best Time to Visit or Contact 7-10 am Best Day to Visit or Contact No preference Appointment Reminders Patient portal, Other secured messaging Preferred Way to Send PHI Patient portal Preferred Mailing Address [address] [place] [address], [phone] Learning Style Pref Patient Verbal explanation Learning [...] Shares bed Support System Spouse/Significant other Primary Roll Finisher of Home Medication Self Current DME at Home No Currently Receiving Skilled Services No Skilled Service Needs Anticipated No Barriers to Care None Home Barriers None Employment Status Retired Financial Issues None Sources of Income Socia (more content not included)... Normal [facility] Ambulatory Visit Summaryon 0 03-26-2024 Ambulatory Visit [...] 2024 2:15 PM EST With: Where: Oncology Monday. 2024 8:00 AM EST With: Where: [facility] Medicine [place] Normal [facility] Medicine Office/Clini c Noteon 03-26-2024 Family Medicine [...] Daily, # 100 cap(s), Refills(s) 0, Pharmacy: [facility]/pharmacy #[id number], 178, cm, 12/18/23 13:19:00 EST, Height/Length Dosing, 89.1, kg, 12/18/23 13:19:00 EST, Weight Dosing lisinopril, See Instructions, TAKE 1 TABLET DAILY, # 90 tab(s), Refills(s) 1, Pharmacy: [facility]/pharmacy #[id number], 179, cm, 03/26/24 10:53:00 EDT, Height/Length Dosing, 86, kg, 03/26/24 10:53:00 EDT, Weight Dosing Follow-up No qualifying data available Problem List/Past Medical History Ongoing AAA (abdominal aortic aneurysm) Aortic aneurysm BMI 28.0-28.9,adult BPH (benign prostatic hyperplasia) CAD in [place] artery Controlled type 2 diabetes mellitus without [...] Others hurt by (more content not included)... [facility] Comment on above: Result Comment: Elec tronically Signed By: Ursula Love MD\.br\Date and Time Signed: 03/26/24 16:51 EDT Physician Referralon 024 Physician Referral [id number] #1.00TIFF [facility] Population Healthon 03-22-20 24 Population Health Case Information Case Priority: None Programs: -- Referral Source: Food Storeroom Clerk Referral Reason: Disease management Case Type: Chronic Care Management Risk Score: -- Case Status: Active (December 28, 2023) Date Assigned: December 19, 2023 Assigned By: Christian Hernandez Date Enrolled: December 28, 2023 Assigned Primary Personnel: Christian Hernandez Assigned Secondary Personnel: -- Case Physician: Ursula Love MD Ongoing AAA (abdominal aortic aneurysm) Aortic aneurysm BMI 28.0-28.9,adult BPH (benign prostatic hyperplasia) CAD in [place] artery Controlled type 2 diabetes mellitus without [...] person at home CM Preferred Spoken Language Uruguayan CM Preferred Written Language [place]ayan Preferred Communication Mode Verbal Ability to Read/Write Able to read, Able to write Preferred Salutation MrNelly Preferred Method of Contact Cell Cell Phone [phone] Best Time to Visit or Contact 7-10 am Best Day to Visit or Contact No preference Appointment Reminders Patient portal, Other secured messaging Preferred Way to Send PHI Patient portal Preferred Mailing Address [address] [place] [address] Learning Style Pref Patient Verbal explanation Learning [...] Shares bed Support System Spouse/Significant other Primary Roll Finisher of Home Medication Self Current DME at Home No Currently Receiving Skilled Services No Skilled Service Needs Anticipated No Barriers to Care None Home Barriers None Employment Status Retired Financial Issues None Sources of Income Social Security Pat (more content not included)... Normal [facility] Consent for Treatmenton 02-15 Consent for Treatment [id number] #1.00TIFF [facility] Oncology Progress Noteon Oncology Progress Note [...] a colonoscopy done in Sep 2023 at [facility] after positive Cologuard test. This showed [...] Contact Information Tj NATHAN-PEMA, Ana Rivas, ONC [facility] [address] [place] [phone] Additional Instructions: cbc, cmp, iron studies in 3mo and 6mo follow-up in 6mo with NETWORK SECURITY ARCHITECT Medications amLODIPine 5 mg Tab, Oral, [...] (DoT), 100 (more content not included)... Normal [facility] CBC w/ Auto Diffon 4 Acanthocytes LM Ql (Bld) PRESENT Invalid Interpretation Code [facility] Comment on above: Performed By: #### 2 [id number] #### [facility] [address] [place] [address] Anisocytosis Ql (Bld) PRESENT Invalid Interpretation Code [facility] Comment on above: Performed By: #### 2 [id number] #### [facility] [address] [place] [address] Basophils/100 WBC (Bld) 0.8 % Normal 0.0-2.0 [facility] Comment on above: Performed By: #### 2 [id number] #### [facility] [address] [place] [address] Basophils/Leukocytes Auto (Bld) [Pure # fraction] 0.0 E9/L Normal 0.0-0.2 [facility] Comment on above: Performed By: #### 2 [id number] #### [facility] [address] [place] [address] Eosinophils (Bld) [#/Vol] 0.2 E9/L Normal 0.0-0.5 [facility] Comment on above: Performed By: #### 2 [id number] #### [facility] [address] [place] [address] Eosinophils/100 WBC (Bld) 3.7 % Normal 0.0-8.0 [facility] Comment on above: Performed By: #### 2 [id number] #### [facility] [address] [place] [address] Erythrocyte distribution width (RBC) [Ratio] 27.1 % High 10.9-14.2 [facility] Comment on above: Performed By: #### 2 [id number] #### [facility] [address] [place] [address] Hematocrit (Bld) [Volume fraction] 40.0 % Normal 37.7-49.0 [facility] Comment on above: Performed By: #### 2 [id number] #### [facility] [address] [place] [address] Hemoglobin (Bld) [Mass/Vol] 13.4 g/dL Low 13.5-17.5 [facility] Comment on above: Performed By: #### 2 [id number] #### [facility] [address] [place] [address] Hypochromia Auto Ql (Bld) PRESENT Invalid Interpretation Code [facility] Comment on above: Performed By: #### 2 [id number] #### [facility] [address] [place] [address] Lymphocytes (Bld) [#/Vol] 1.6 E9/L Normal 1.0-4.0 [facility] Comment on above: Performed By: #### 2 [id number] #### [facility] [address] [place] [address] Lymphocytes/100 WBC (Bld) 32.5 % Normal 14.0-50.0 [facility] Comment on above: Performed By: #### 2 [id number] #### [facility] [address] [place] [address] MCH (RBC) [Entitic mass] 27.3 pg Normal 27.0-34.0 [facility] Comment on above: Performed By: #### 2 [id number] #### [facility] [address] [place] [address] MCHC (RBC) [Mass/Vol] 33.6 g/dL Normal 31.4-36.0 [facility] Comment on above: Performed By: #### 2 618195 #### [facility] [address] [place] [address] MCV (RBC) [Entitic vol] 81.4 fL Normal 80.0-100.0 [facility] Comment on above: Performed By: #### 2 655954 #### [facility] [address] [place] [address] Monocytes (Bld) [#/Vol] 0.4 E9/L Normal 0.2-1.0 [facility] Comment on above: Performed By: #### 2 497461 #### [facility] [address] [place] [address] Neutrophils (Bld) [#/Vol] 2.7 E9/L Normal 2.0-7.5 [facility] Comment on above: Performed By: #### 2 [id number] #### [facility] [address] [place] [address] Neutrophils/100 WBC (Bld) 55.1 % Normal 36.0-75.0 [facility] Comment on above: Performed By: #### 2 239008 #### [facility] [address] [place] [address] Ovalocytes LM Ql (Bld) PRESENT Invalid Interpretation Code [facility] Comment on above: Performed By: #### 2 [id number] #### [facility] [address] [place] [address] Platelet mean volume (Bld) [Entitic vol] 9.9 fL Normal 6.4-10.8 [facility] Comment on above: Performed By: #### 2 815141 #### [facility] [address] [place] [address] Platelets (Bld) [#/Vol] 116.0 E9/L Low 150.0-500.0 [facility] Comment on above: Performed By: #### 2 [id number] #### [facility] [address] [place] [address] RBC (Bld) [#/Vol] 4.9 E12/L Normal 4.3-5.9 [facility] Comment on above: Performed By: #### 2 [id number] #### [facility] [address] [place] [address] RBC size Nom (Bld) SEE MORPHOLOGY Invalid Interpretation Code [facility] Comment on above: Performed By: #### 2 [id number] #### [facility] [address] [place] [address] WBC corrected for nucl RBC Auto (Bld) [#/Vol] 5.0 E9/L Normal 4.0-11.0 [facility] Comment on above: Performed By: #### 2 [id number] #### [facility] [address] [place] [address] CHEMISTRYOrdered By: SYSTEM SYSTEM on 03-12-2024 Albumin [...] 03-12-2024 Albumin [Mass/Vol] 4.3 g/dL Normal 3.3-5.0 [facility] Comment on above: Performed By: #### 2 270459 #### [facility] [address] [place] [address] Albumin/Globulin (S) [Mass conc ratio] 2.3 High 1.1-2.2 [facility] Comment on above: Performed By: #### 2 298630 #### [facility] [address] [place] [address] ALP [Catalytic activity/Vol] 54 Int._Unit/L Normal 21-98 [facility] Comment on above: Performed By: #### 2 074218 #### [facility] [address] [place] [address] ALT No additional P-5'-P [Catalytic activity/Vol] 47 Int._Unit/L High 6-46 [facility] Comment on above: Performed By: #### 2 [id number] #### [facility] [address] [place] [address] Anion gap [Moles/Vol] 12 mmol/L Normal 6-16 [facility] Comment on above: Performed By: #### 2 [id number] #### [facility] [address] [place] [address] AST [Catalytic activity/Vol] 30 Int._Unit/L Normal 5-43 [facility] Comment on above: Performed By: #### 2 108668 #### [facility] [address] [place] [address] Bilirubin [Mass/Vol] 1.8 mg/dL High 0.0-1.1 [facility] Comment on above: Performed By: #### 2 444187 #### [facility] [address] [place] [address] Calcium [Mass/Vol] 9.1 mg/dL Normal 8.9-11.1 [facility] Comment on above: Performed By: #### 2 771287 #### [facility] [address] [place] [address] Chloride [Moles/Vol] 102 mmol/L Normal 101-111 [facility] Comment on above: Performed By: #### 2 [id number] #### [facility] [address] [place] [address] CO2 [Moles/Vol] 26 mmol/L Normal 21-31 [facility] Comment on above: Performed By: #### 2 800194 #### [facility] [address] [place] [address] Creatinine [Mass/Vol] 0.8 mg/dL Normal 0.5-1.3 [facility] Comment on above: Performed By: #### 2 493258 #### [facility] [address] [place] [address] Globulin (S) [Mass/Vol] 1.9 g/dL Normal 1.4-4.0 [facility] Comment on above: Performed By: #### 2 [id number] #### [facility] [address] [place] [address] Glucose [Mass/Vol] 153 mg/dL Normal 55-199 [facility] Comment on above: Performed By: #### 2 067364 #### [facility] [address] [place] [address] Potassium [Moles/Vol] 4.7 mmol/L Normal 3.5-5.3 [facility] Comment on above: Performed By: #### 2 [id number] #### [facility] [address] [place] [address] Protein [Mass/Vol] 6.2 g/dL Normal 6.0-7.8 [facility] Comment on above: Performed By: #### 2 [id number] #### [facility] [address] [place] [address] Sodium [Moles/Vol] 135 mmol/L Normal 135-145 [facility] Comment on above: Performed By: #### 2 616558 #### [facility] [address] [place] [address] Urea nitrogen [Mass/Vol] 9 mg/dL Normal 5-21 [facility] Comment on above: Performed By: #### 2 [id number] #### [facility] [address] [place] [address] Urea nitrogen/Creatinine [Mass ratio] 11 No Units Normal 10-20 [facility] Comment on above: Performed By: #### 2 667754 #### [facility] [address] [place] [address] Consent for Treatmenton 02-14 Consent for Treatment [id number] #1.00TIFF Normal [facility] Ferritinon 03-12-2024 Ferritin [Mass/Vol] 179 ng/mL Normal 24-336 [facility] Comment on above: Performed By: #### 2 [id number] #### [facility] [address] [place] [address] HEMATOLOGYOrdered By: SYSTEM SYSTEM on 03-12-2024 Acanthocytes [...] 03-12-2024 Iron [Mass/Vol] 117 microgram/dL Normal 35-153 [facility] Comment on above: Performed By: #### 2 [id number] #### [facility] [address] [place] [address] Iron Saturationon 03-12-2024 Iron binding capacity [Mass/Vol] 326 microgram/dL Normal 250-400 [facility] Comment on above: Performed By: #### 2 [id number] #### [facility] [address] [place] [address] Iron saturation [Mass fraction] 36 % Normal 20-50 [facility] Comment on above: Performed By: #### 2 445033 #### [facility] [address] [place] [address] Transferrinon 03-12-2024 Transferrin [Mass/Vol] 233 mg/dL Normal 200-370 [facility] Comment on above: Performed By: #### 2 926437 #### [facility] [address] [place] [address] eGFRon 03-12-2024 eGFR 98 mL/min/1.73 m2 Normal >=59 [facility] Comment on above: Order Comment: Order added by Discern Expert. Performed By: #### 1 [id number] #### [facility] [address] [place] [address] Consent for Treatmenton Consent for Treatment [id number] #1.00TIFF Normal [facility] Consent for Treatmenton 01-15 Consent for Treatment [id number] #1.00TIFF Normal [facility] Consent for Treatmenton 01-14 Consent for Treatment [id number] #1.00TIFF [facility] Consenton 01-31-2024 Consent [id number]#1.00TIFF [facility] Outside Diabetes Eye Examon 01-31-2024 Outside Diabetes Eye Exam [id number] #1.00TIFF [facility] Population Healthon 01-26-20 24 Population Health Case Information Case Priority: None Programs: -- Referral Source: Food Storeroom Clerk Referral Reason: Disease management Case Type: Chronic Care Management Risk Score: -- Case Status: Active (December 28, 2023) Date Assigned: December 19, 2023 Assigned By: Christian Hernandez Date Enrolled: December 28, 2023 Assigned Primary Personnel: Christian Hernandez Assigned Secondary Personnel: -- Case Physician: Ursula Love MD Ongoing AAA (abdominal aortic aneurysm) Aortic aneurysm BMI 28.0-28.9,adult BPH (benign prostatic hyperplasia) CAD in [place] artery Controlled type 2 diabetes mellitus without [...] CCM Program Enrollment Verbally agreed to receive [facility] services CCM Written Consent Written consent in progress CCM Verbal Consent By Self 12/28/23 07:00:00 Result Name Value Comment HIPPA Verified Type of Contact In person at home CM Preferred Spoken Language Uruguayan CM Preferred Written Language Uruguayan Preferred Communication Mode Verbal Ability to Read/Write Able to read, Able to write Preferred Salutation MrNelly Preferred Method of Contact Cell Cell Phone [phone] Best Time to Visit or Contact 7-10 am Best Day to Visit or Contact No preference Appointment Reminders Patient portal, Other secured messaging Preferred Way to Send PHI Patient portal Preferred Mailing Address [address] [place] [address], [address] Learning Style Pref Patient Verbal explanation Learning [...] Shares bed Support System Spouse/Significant other Primary Roll Finisher of Home Medication Self Current DME at Home No Currently Receiving Skilled Services No Skilled Service Needs Anticipated No Barriers to Care None Home Barriers None Employment Status Retired Financial Issues None Sources of Income Social Security Pat (more content not included)... Normal [facility] Consent for Treatmenton 01-14 Consent for Treatment [id number] #1.00TIFF Normal [facility] Oncology Progress Noteon Oncology Progress Note Diagnoses [...] his nasa (more content not included)... Normal [facility] Free K+L Lt Chains,Qn,Son Immunoglobulin light chains.kappa.free (S) [Mass/Vol] 19.0 mg/L Invalid Interpretation Code 3.3-19.4 [facility] Comment on above: Performed By: #### 2 [id number], 6644296, 2840753, 5485497506, 986665862, 43805863, 5908707 #### [facility] [address] [place] [address] Immunoglobulin light chains.kappa.free/Imm unoglobulin light chains.lambda.free (S) [Mass ratio] 1.62 Invalid Interpretation Code 0.26-1.65 [facility] Comment on above: Result Comment: Perf ormed at: [facility] [address] [id number] PhD Nicole Fang Performed By: #### 2 694934382, 2261728, 7931269, 9974252845, 674104900, 46589222, 6679687 #### [facility] [address] [place] [address] Immunoglobulin light chains.lambda.free [Mass/Vol] 11.7 mg/L Invalid Interpretation Code 5.7-26.3 [facility] Comment on above: Performed By: #### 2 [id number], 1075664, 9546155, 1182845310, 583309013, 28992626, 9273759 #### [facility] [address] [place] [address] Immunofixation Serumon 01-16 IgA [Mass/Vol] 87 mg/dL Invalid Interpretation Code 61437 [facility] Comment on above: Performed By: #### 2 649238984, 5726027, 7209882, 9102922057, 702562686, 19397381, 0871574 #### [facility] [address] [place] [address] IgG [Mass/Vol] 406 mg/dL Low 603-1613 [facility] Comment on above: Performed By: #### 2 187964036, 8730607, 9235334, 8491232158, 997109448, 27696851, 8719184 #### [facility] [address] [place] [address] IgM [Mass/Vol] 136 mg/dL Invalid Interpretation Code 20-172 [facility] Comment on above: Result Comment: Perf ormed at: [facility] [address] [id number] PhD Nicole Fang Performed By: #### 2 042716540, 6991232, 6117756, 7579141122, 276962774, 00888824, 6243000 #### [facility] [address] [place] [address] Protein Fractions [Interp] Comment Invalid Interpretation Code [facility] Comment on above: Result Comment: No m onoclonality detected. Performed By: #### 2 927493292, 3654157, 0679608, 4114454477, 784653078, 37458589, 2384489 #### [facility] [address] [place] [address] SPEon 01-17-2024 Albumin [Mass/Vol] 3.6 g/dL Invalid Interpretation Code 2.9-4.4 [facility] Comment on above: Performed By: #### 2 390278417, 5592127, 4270150, 5693886830, 704359967, 02197030, 8558765 #### [facility] [address] [place] [address] Albumin/Globulin [Mass ratio] 1.8 {ratio} High 0.7-1.7 [facility] Comment on above: Performed By: #### 2 303925285, 6606587, 0563367, 3182812588, 947884445, 48252771, 5975757 #### [facility] [address] [place] [address] Alpha 1 globulin Elph [Mass/Vol] 0.2 g/dL Invalid Interpretation Code 0.0-0.4 [facility] Comment on above: Performed By: #### 2 009943167, 3061650, 9023762, 0563620057, 302231202, 88129452, 9675068 #### [facility] [address] [place] [address] Alpha 2 globulin Elph [Mass/Vol] 0.6 g/dL Invalid Interpretation Code 0.4-1.0 [facility] Comment on above: Performed By: #### 2 951275779, 0234493, 3682473, 7544156256, 197964860, 62824830, 7774105 #### [facility] [address] [place] [address] Beta globulin Elph [Mass/Vol] 0.8 g/dL Invalid Interpretation Code 0.7-1.3 [facility] Comment on above: Performed By: #### 2 474614039, 3831529, 9028866, 8009697497, 100611668, 81983347, 3290661 #### [facility] [address] [place] [address] Gamma globulin Elph [Mass/Vol] 0.4 g/dL Invalid Interpretation Code 0.4-1.8 [facility] Comment on above: Performed By: #### 2 765045691, 9393909, 3007043, 5688726336, 610226129, 37977704, 4861419 #### [facility] [address] [place] [address] Globulin (S) [Mass/Vol] 2.0 g/dL Low 2.2-3.9 [facility] Comment on above: Performed By: #### 2 116847868, 0675275, 9069753, 5659318766, 146728905, 17519065, 6892437 #### [facility] [address] [place] [address] Laboratory comment Harman (Report) Comment Invalid Interpretation Code [facility] Comment on above: Result Comment: Prot ein electrophoresis scan will follow via computer, mail, or medart operator delivery. Performed By: #### 2 832589274, 1878178, 5673711, 4475118415, 244393275, 37934389, 4159826 #### [facility] [address] [place] [address] Protein [Mass/Vol] 5.6 g/dL Low 6.0-8.5 [facility] Comment on above: Performed By: #### 2 564823576, 7413164, 3803834, 4883672671, 028981288, 42921087, 3070959 #### [facility] [address] [place] [address] Protein Fractions [Interp] Comment: Invalid Interpretation Code [facility] Comment on above: Result Comment: SPE shows decreased total protein. Performed at: [address] [id number] PhD Nicole Fang Performed By: #### 2 540002144, 9871321, 2399332, 2373816086, 170788611, 87712477, 8910264 #### [facility] [address] [place] [address] Protein.monoclonal Elph [Mass/Vol] Not Observed Invalid Interpretation Code Not Observed [facility] Comment on above: Performed By: #### 2 664185535, 1865206, 9221936, 9838977895, 818827363, 17948871, 6280053 #### [facility] [address] [place] [address] CHEMISTRYOrdered By: SYSTEM SYSTEM on 01-16-2024 Cobalamin [...] 370 mg/dL Remisol Chem Consent for Treatmenton 04-0 Consent for Treatment [id number] #1.00TIFF Normal [facility] Ferritinon 01-16-2024 Ferritin [Mass/Vol] 8 ng/mL Low 24-336 [facility] Comment on above: Performed By: #### 2 390623772, 0687925, 1799793, 1357088466, 838647566, 36194677, 9003917 #### [facility] [address] [place] [address] Folateon 01-16-2024 Folate [Mass/Vol] 13.0 ng/mL Normal >=6.7 [facility] Comment on above: Performed By: #### 2 888693258, 2758358, 9012839, 5137610020, 075688912, 01702354, 7100187 #### [facility] [address] [place] [address] Ironon 01-16-2024 Iron [Mass/Vol] 36 microgram/dL Normal 35-153 [facility] Comment on above: Performed By: #### 2 376795, 0036250, 1898949, 1592398, 9443751, 8438444, 1585767, 11482123, 386315824 #### [facility] [address] [place] [address] Iron Saturationon 01-16-2024 Iron binding capacity [Mass/Vol] 473 microgram/dL High 250-400 [facility] Comment on above: Performed By: #### 2 095755, 2224750, 3640666, 2133278, 0241600, 2424669, 3319879, 72201412, 501709283 #### [facility] [address] [place] [address] Iron saturation [Mass fraction] 8 % Low 20-50 [facility] Comment on above: Performed By: #### 2 860479, 7900582, 5572947, 8229898, 3570778, 4218263, 0047632, 12259921, 821320626 #### [facility] [address] [place] [address] Transferrinon 01-16-2024 Transferrin [Mass/Vol] 338 mg/dL Normal 200-370 [facility] Comment on above: Performed By: #### 2 972729, 1842282, 4310249, 0479908, 0249221, 2395143, 2405133, 26860137, 487744477 #### [facility] [address] [place] [address] Vit B12on 01-16-2024 Cobalamin (Vitamin B12) [Mass/Vol] 213 pg/mL Normal 50-1500 [facility] Comment on above: Performed By: #### 2 997321559, 4439536, 3899283, 2039759364, 415772654, 37776399, 1470252 #### [facility] [address] [place] [address] 36on 01-10-2024 36 Message sent from patient to my email: Kg Mesa hope all is well, I forgot to ask if I???m 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 Some things I???ve read are telling me not to?? Marilyn, are you able to advise on this? Thanks. Normal [facility] Physician Referralon 024 Physician Referral [id number] #1.00TIFF Normal [facility] Office Visiton 12-29-2023 Follow-up visit [id number] Marcelle Doherty 1960 M Date Provider Department Center 12/29/2023 [facility] Family History Problem Relation Age of Onset Coronary artery disease Father Atrial fibrillation Father Heart attack Brother Family Status - Relation Status Age at Father Brother Level of Service:20918 IN OFFICE/OUTPATIENT ESTABLISHED MOD MDM 30 MIN Normal [facility] ED Lulu Hugginson 12-28-2023 [facility] Joseluis Cardiovascular Coronary Artery Disease, Male Coronary artery [...] these instructions at home: Medicines ? Take ulse-lsf-vwzbdoo and prescription medicines only as told by [...] use any (more content not included)... 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 Referral Reason: Disease management Case Type: Chronic Care Management Risk Score: -- Case Status: Active (December 28, 2023) Date Assigned: December 19, 2023 Assigned By: Christian Hernandez Date Enrolled: December 28, 2023 Assigned Primary Personnel: Christian Hernandez Assigned Secondary Personnel: -- Case Physician: -- Problems Ongoing AAA (abdominal aortic aneurysm) Aortic aneurysm BMI 28.0-28.9,adult BPH (benign prostatic hyperplasia) CAD in [place] artery Controlled type 2 diabetes mellitus without [...] CCM Program Enrollment Verbally agreed to receive [facility] services CCM Written Consent Written consent in progress CCM Verbal Consent By Self 12/28/23 07:00:00 Result Name Value Comment HIPPA Verified Type of Contact In person at home CM Preferred Spoken Language Uruguayan CM Preferred Written Language [place]ayan Preferred Communication Mode Verbal Ability to Read/Write Able to read, Able to write Preferred Salutation Mr. Preferred Method of Contact Cell Cell Phone [phone] Best Time to Visit or Contact 7-10 am Best Day to Visit or Contact No preference Appointment Reminders Patient portal, Other secured messaging Preferred Way to Send PHI Patient portal Preferred Mailing Address [address] [place] [address], [address] Learning Style Pref Patient Verbal explanation Learning [...] Shares bed Support System Spouse/Significant other Primary Roll Finisher of Home Medication Self Current DME at Home No Currently Receiving Skilled Services No Skilled Service Needs Anticipated No Barriers to Care None Home Barriers None Employment Status Retired Financial Issues None Sources of Income Social Security Patient Account Ser (more content not included)... 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 Covering Contractor Review educational material - - Not done [...] - Comments: - - 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 Frequency 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 Covering Contractor Review educational material - - Not done [...] - - Not done - - Selene [facility] CT Chest, Low Dose Screening on 12-27-2023 [...] MD Transcribed by: LUDWIN Technologist: MEKHI Morton [facility] Consent for Treatmenton 12-14 Consent for Treatment [id number] #1.00TIFF [facility] Family Medicine Office/Clini c Noteon 12-22-2023 Family Medicine Office/Clinic Note Chief Complaint Welcome to Medicare Vist HPI Staff Marcelle is a 63 year old male presenting for follow up medicare wellness Patient complains of hip/shoulder pain /10. Inquires if he may have arthritis. Patient [...] of clutter to prevent tripping and/or falling. [place] Advance Directives reviewed, patient has at home, [...] PCP visit. [place] [facility] Colonoscopy up to date, due for repeat [...] with CDC recommendation that everyone born from 3664-5662 get tested for Hepatitis C. This is [...] Pack Yea (more content not included)... Normal [facility] Comment on above: Result Comment: Elec tronically Signed By: Ursula Love MD\.br\Date and Time Signed: 12/22/23 11:50 EST\.br\Electronically Co-Signed By: Christian Hernandez.br\Date and Time Co-Signed: 12/18/23 15:00 EST .Interpretation:on 4 HCV Ab IA Ql Comment Invalid Interpretation Code [facility] Comment on above: Result Comment: Not infected with HCV unless early or acute infection is suspected (which may be delayed in an immunocompromised individual), or other evidence exists to indicate HCV infection. Performed at: [facility] [id number] PhD Nicole Fang Performed By: #### 2 [id number], 9283726, 1391796, 5304097842, 214011671, 47625031, 0286781 #### [facility] [address] [place] [address] HCV Antibody RFX to Quant PC Kavin 12-20-2023 HCV IgG IA Ql Non-Reactive Invalid Interpretation Code Non Reactive [facility] Comment on above: Result Comment: Perf ormed at: [facility] [address] [id number] PhD Nicole Fang Performed By: #### 2 810589458, 1071183, 9593637, 5077126347, 261255199, 76050722, 3533380 #### [facility] [address] [place] [address] Screenson 12-19-2023 Screens [id number] #1.00TIFF Normal [facility] Ambulatory Visit Summaryon 0 12-18-2023 Ambulatory Visit [...] 28.0-28.9,adult BPH (benign prostatic hyperplasia) CAD in [place] artery Controlled type 2 diabetes mellitus without [...] for choosing us for your care. Normal [facility] CBC w/ Auto Diffon 4 Anisocytosis Ql (Bld) PRESENT Invalid Interpretation Code [facility] Comment on above: Performed By: #### 2 583931096, 3419621, 9890315, 9606982999, 873479632, 60628417, 0204813 #### [facility] [address] [place] [address] Basophils/100 WBC (Bld) 0.6 % Normal 0.0-2.0 [facility] Comment on above: Performed By: #### 2 081370549, 1042246, 4283807, 9080979573, 252344591, 50472180, 4964398 #### [facility] [address] [place] [address] Basophils/Leukocytes Auto (Bld) [Pure # fraction] 0.0 E9/L Normal 0.0-0.2 [facility] Comment on above: Performed By: #### 2 612229178, 0178865, 2632090, 1054248836, 182393913, 59019941, 1400500 #### [facility] [address] [place] [address] Eosinophils (Bld) [#/Vol] 0.1 E9/L Normal 0.0-0.5 [facility] Comment on above: Performed By: #### 2 838994808, 2141891, 9464573, 4540605283, 169566738, 22237637, 2707565 #### [facility] [address] [place] [address] Eosinophils/100 WBC (Bld) 2.7 % Normal 0.0-8.0 [facility] Comment on above: Performed By: #### 2 719392091, 4779394, 9711376, 1973882609, 352561761, 51011038, 8463947 #### [facility] [address] [place] [address] Erythrocyte distribution width (RBC) [Ratio] 17.2 % High 10.9-14.2 [facility] Comment on above: Performed By: #### 2 477608083, 2164442, 9196718, 6799204165, 009923006, 76679068, 4544442 #### [facility] [address] [place] [address] Hematocrit (Bld) [Volume fraction] 34.4 % Low 37.7-49.0 [facility] Comment on above: Performed By: #### 2 341652481, 1455954, 6230887, 4018149167, 491709491, 62437914, 5075001 #### [facility] [address] [place] [address] Hemoglobin (Bld) [Mass/Vol] 10.9 g/dL Low 13.5-17.5 [facility] Comment on above: Performed By: #### 2 863874535, 9821108, 3994168, 9080552544, 037647297, 69372397, 2660938 #### [facility] [address] [place] [address] Hypochromia Auto Ql (Bld) PRESENT Invalid Interpretation Code [facility] Comment on above: Performed By: #### 2 181099609, 5145174, 2104051, 6093545516, 650344144, 68030309, 1059700 #### [facility] [address] [place] [address] Lymphocytes (Bld) [#/Vol] 1.3 E9/L Normal 1.0-4.0 [facility] Comment on above: Performed By: #### 2 180706659, 2153305, 2543060, 8444627762, 143098661, 15870946, 2543519 #### [facility] [address] [place] [address] Lymphocytes/100 WBC (Bld) 25.8 % Normal 14.0-50.0 [facility] Comment on above: Performed By: #### 2 352442779, 4880229, 7102570, 4747915990, 524898586, 63524094, 1456188 #### [facility] [address] [place] [address] MCH (RBC) [Entitic mass] 23.3 pg Low 27.0-34.0 [facility] Comment on above: Performed By: #### 2 653230613, 1859230, 3141273, 5072313773, 856177751, 57940739, 2400058 #### [facility] [address] [place] [address] MCHC (RBC) [Mass/Vol] 31.6 g/dL Normal 31.4-36.0 [facility] Comment on above: Performed By: #### 2 161814263, 5719503, 6889104, 6959885564, 801500206, 70455723, 5370540 #### [facility] [address] [place] [address] MCV (RBC) [Entitic vol] 73.6 fL Low 80.0-100.0 [facility] Comment on above: Performed By: #### 2 283566465, 7806595, 6993621, 3279351690, 291549093, 13885162, 6271434 #### [facility] [address] [place], [place] [address] Microcytes Ql (Bld) PRESENT Invalid Interpretation Code [facility] Comment on above: Performed By: #### 2 727227475, 5666621, 9689977, 2144500000, 938154592, 04124680, 1312080 #### [facility] [address] [place] [address] Monocytes (Bld) [#/Vol] 0.4 E9/L Normal 0.2-1.0 [facility] Comment on above: Performed By: #### 2 085098688, 9250857, 0719227, 4883931043, 692587893, 22679087, 7100388 #### [facility] [address] [place] [address] Neutrophils (Bld) [#/Vol] 3.2 E9/L Normal 2.0-7.5 [facility] Comment on above: Performed By: #### 2 946664106, 1945794, 6372708, 0230668100, 184757377, 83003486, 6585936 #### [facility] [address] [place] [address] Neutrophils/100 WBC (Bld) 63.4 % Normal 36.0-75.0 [facility] Comment on above: Performed By: #### 2 690799008, 3374321, 5952251, 6619361562, 901030059, 67538960, 1618057 #### [facility] [address] [place] [address] Ovalocytes LM Ql (Bld) PRESENT Invalid Interpretation Code [facility] Comment on above: Performed By: #### 2 537546913, 7157538, 0602123, 8575289143, 932920301, 31528490, 9642265 #### [facility] [address] [place] [address] Platelet mean volume (Bld) [Entitic vol] 10.4 fL Normal 6.4-10.8 [facility] Comment on above: Performed By: #### 2 285066542, 6460322, 7402988, 1039449354, 655816908, 81427254, 0745347 #### [facility] [address] [place] [address] Platelets (Bld) [#/Vol] 137.0 E9/L Low 150.0-500.0 [facility] Comment on above: Performed By: #### 2 097210661, 1094132, 2246183, 8376016232, 034807827, 73871878, 3116405 #### [facility] [address] [place] [address] Poikilocytosis Auto Ql (Bld) PRESENT Invalid Interpretation Code [facility] Comment on above: Performed By: #### 2 349753497, 0293800, 1059934, 3468278199, 922618869, 08097129, 1958377 #### [facility] [address] [place] [address] RBC (Bld) [#/Vol] 4.7 E12/L Normal 4.3-5.9 [facility] Comment on above: Performed By: #### 2 [id number], 1952575, 5397869, 2026435910, 037455760, 32150510, 7558931 #### [facility] [address] [place] [address] WBC corrected for nucl RBC Auto (Bld) [#/Vol] 5.0 E9/L Normal 4.0-11.0 [facility] Comment on above: Performed By: #### 2 [id number], 5953733, 4821083, 2013427210, 978503995, 01834810, 6265027 #### [facility] [address] [place] [address] CHEMISTRYOrdered By: SYSTEM SYSTEM on 12-18-2023 Albumin [...] (Bld) [Mass fraction] 6.9 % High <=5.9% [facility] ChemAutoSS CMPon 12-18-2023 Albumin [Mass/Vol] 4.4 g/dL Normal 3.3-5.0 [facility] Comment on above: Performed By: #### 2 [id number], 1108288, 6280242, 5638020881, 073649775, 16453534, 2938812 #### [facility] [address] [place] [address] Albumin/Globulin (S) [Mass conc ratio] 2.6 High 1.1-2.2 [facility] Comment on above: Performed By: #### 2 [id number], 7713926, 8522151, 5479872044, 878302141, 31523737, 7198113 #### [facility] [address] [place] [address] ALP [Catalytic activity/Vol] 49 Int._Unit/L Normal 21-98 [facility] Comment on above: Performed By: #### 2 [id number], 8678208, 5614251, 6020630577, 675734673, 07542018, 5627543 #### [facility] [address] [place] [address] ALT No additional P-5'-P [Catalytic activity/Vol] 20 Int._Unit/L Normal 6-46 [facility] Comment on above: Performed By: #### 2 [id number], 2135628, 1532571, 4695172585, 963350880, 97224927, 0273112 #### [facility] [address] [place], [place] [address] Anion gap [Moles/Vol] 13 mmol/L Normal 6-16 [facility] Comment on above: Performed By: #### 2 [id number], 8142977, 6278487, 9566275215, 123904173, 35909493, 3342674 #### [facility] [address] [place] [address] AST [Catalytic activity/Vol] 17 Int._Unit/L Normal 5-43 [facility] Comment on above: Performed By: #### 2 [id number], 9330223, 0037608, 3037503112, 965613677, 54620213, 1425230 #### [facility] [address] [place] [address] Bilirubin [Mass/Vol] 1.7 mg/dL High 0.0-1.1 [facility] Comment on above: Performed By: #### 2 [id number], 7472741, 4653052, 2191763304, 450684928, 50992012, 1207890 #### [facility] [address] [place] [address] Calcium [Mass/Vol] 9.3 mg/dL Normal 8.9-11.1 [facility] Comment on above: Performed By: #### 2 [id number], 3481658, 0920292, 1350410042, 041705999, 51741658, 9317863 #### [facility] [address] [place] [address] Chloride [Moles/Vol] 103 mmol/L Normal 101-111 [facility] Comment on above: Performed By: #### 2 [id number], 5259160, 7427880, 1949262341, 869333473, 88237118, 6845727 #### [facility] [address] [place] [address] CO2 [Moles/Vol] 26 mmol/L Normal 21-31 [facility] Comment on above: Performed By: #### 2 [id number], 3866813, 7549099, 4530106879, 803900966, 12211863, 3422695 #### [facility] [address] [place] [address] Creatinine [Mass/Vol] 0.8 mg/dL Normal 0.5-1.3 [facility] Comment on above: Performed By: #### 2 [id number], 5025482, 3528765, 7943452540, 422530270, 99841595, 0867235 #### [facility] [address] [place] [address] Globulin (S) [Mass/Vol] 1.7 g/dL Normal 1.4-4.0 [facility] Comment on above: Performed By: #### 2 [id number], 9843644, 3484581, 9655910940, 611916111, 05734079, 4492492 #### [facility] [address] [place] [address] Glucose [Mass/Vol] 124 mg/dL Normal 55-199 [facility] Comment on above: Performed By: #### 2 [id number], 7838074, 1339653, 2403050175, 785466872, 60902099, 6340046 #### [facility] [address] [place] [address] Potassium [Moles/Vol] 4.0 mmol/L Normal 3.5-5.3 [facility] Comment on above: Performed By: #### 2 397926623, 9882180, 3678244, 3825193568, 559741575, 83713950, 8716314 #### [facility] [address] [place] [address] Protein [Mass/Vol] 6.1 g/dL Normal 6.0-7.8 [facility] Comment on above: Performed By: #### 2 [id number], 1603526, 5092471, 9341563846, 207537783, 77714029, 9288621 #### [facility] [address] [place] [address] Sodium [Moles/Vol] 138 mmol/L Normal 135-145 [facility] Comment on above: Performed By: #### 2 109154163, 0802731, 3756056, 2796810512, 030395972, 15833294, 2969538 #### [facility] [address] [place] [address] Urea nitrogen [Mass/Vol] 8 mg/dL Normal 5-21 [facility] Comment on above: Performed By: #### 2 155146725, 8891625, 3584908, 2416042312, 757828583, 07821342, 4753560 #### [facility] [address] [place] [address] Urea nitrogen/Creatinine [Mass ratio] 10 No Units Normal 10-20 [facility] Comment on above: Performed By: #### 2 [id number], 7061959, 1855149, 8920992681, 118517369, 99733583, 4982070 #### [facility] [address] [place] [address] HEMATOLOGYOrdered By: SYSTEM SYSTEM on 12-18-2023 Anisocytosis [...] Normal 4.0 - 11.0 E9/L Remisol Heme [id number] 12-18-2023 HbA1c (Bld) [Mass fraction] 6.9 % High <=5.9 [facility] Comment on above: Performed By: #### 2 [id number], 8435235, 1746585, 6084127647, 510646202, 82007616, 1679755 #### [facility] [address] [place] [address] Lipid Panelon 12-18-2023 Cholesterol [Mass/Vol] 118 mg/dL Low 120-200 [facility] Comment on above: Performed By: #### 2 [id number], 0894391, 5744902, 0015079307, 747728896, 63178318, 3808911 #### [facility] [address] [place] [address] Cholesterol in HDL [Mass/Vol] 37 mg/dL Invalid Interpretation Code [facility] Comment on above: Result Comment: '>= 60 LOW RISK' '<= 40 HIGH RISK' Performed By: #### 2 357264496, 3256249, 3256738, 9264847786, 130576747, 78882974, 5397487 #### [facility] [address] [place] [address] Cholesterol in LDL [Mass/Vol] 72 mg/dL Normal <=129 [facility] Comment on above: Performed By: #### 2 855922085, 1392103, 3837616, 5722669096, 401005623, 31880853, 0059659 #### [facility] [address] [place] [address] Cholesterol in VLDL [Mass/Vol] 22 mg/dL Normal 7-40 [facility] Comment on above: Performed By: #### 2 [id number], 9790272, 0525578, 6187184692, 969661982, 02226616, 9501801 #### [facility] [address] [place] [address] Triglyceride [Mass/Vol] 112 mg/dL Normal <=149 [facility] Comment on above: Performed By: #### 2 646735367, 2481524, 7152227, 9446262038, 727191222, 41148502, 8140714 #### [facility] [address] [place] [address] Patient Educationon 12-18-19 Patient Education Cardiovascular Atrial [...] signals of the heart. ? An ambulatory serging machine operator automatic to record your heart's activity for a [...] Trouble breathing. (more content not included)... Normal [facility] eGFRon 12-18-2023 eGFR 98 mL/min/1.73 m2 Normal >=59 [facility] Comment on above: Order Comment: Order added by Discern Expert. Performed By: #### 2 [id number], 6876205, 9440549, 7276891828, 520662181, 02299556, 1434949 #### [facility] [address] [place] [address] 36on 11-20-2023 36 Patient emailed me and asked if we had samples of Xarelto. Since he's on Medicare now it's very expensive for him. We haven't had a rep bring samples of Xarelto in about 1 year. I mentioned switching to Eliquis, since we do get samples of that. Ok to send RX for Eliquis 5mg bid? Please advise. Thanks! Normal [facility] Ambulatory Visit Summaryon 1 12-05-2022 Ambulatory Visit [...] Appointments Monday 8:00 AM EDT With: Where: [facility] [place] Normal [address] [place], [place] [id number]- \.br\ Medications\.br \ What How Much When [...] BPH (benign prostatic hyperplasia)\.b r\ CAD in [place] artery\.br\ Controlled type 2 diabetes mellitus without [...] [facility] Office/Clini c Noteon 12-20-2023 General Surgery Office/Clinic Note Chief Complaint colonoscopy [...] 28.0-28.9,adult BPH (benign prostatic hyperplasia) CAD in [place] artery Controlled type 2 diabetes mellitus without [...] Comment: Elec tronically Signed By: WILLIAM NIELSON, Jsoe Luis Jin\Date and Time Signed: 10/04/23 13:35 EST Reminderson 10-04-2023 Reminders - From: Kori Saldivar LPN To: N - Clinical; Sent: 10/04/2023 13:36:47 EST Show up: 08/21/2026 07:00:00 EST Subject: colonoscopy recall Due Date/Time: 09/20/2026 07:00:00 EST Reminder/Recall Patient due for surveillance colonoscopy 09/20/2026 due to history of tubular adenoma. Normal [facility] URINALYSISOrdered By: Isaiah Garcia on 08-04-2023 [...] PM) Normal Negative [facility] UA Auto SS [place].plasma/Lithiu m.RBC (Bld) [Mass ratio] 0-3 /HPF Normal 0-3/HPF [facility] UA Auto SS Nitrite Ql (U) Negative (08/04/23 2:10 PM) Normal Negative [facility] UA Auto SS pH (U) 6.0 *NA* (08/04/23 2:10 PM) Invalid Interpretation Code 5.0 - 9.0 [facility] UA Auto SS Protein (U) [Mass/Vol] Negative (08/04/23 2:10 PM) Normal Negative [facility] UA Auto SS Specific gravity (U) [Rel density] <=1.005 *NA* (08/04/23 2:10 PM) Invalid Interpretation Code 1.005 - 1.030 [facility] UA Auto SS UA Spec Desc Clean Catch (08/04/23 2:10 PM) Normal [facility] UA Auto SS Urobilinogen Qn (U) 0.3033474 {Denny'U}/dL Normal 0.0 - 1.0 EU/dL [facility] UA Auto SS WBC Auto Ql (U) Negative (08/04/23 2:10 PM) Normal Negative [facility] UA Auto SS WBC LM.HPF (Urine sed) [#/Area] 0-5 /HPF Normal 0-5/HPF [facility] UA Auto SS CHEMISTRYOrdered By: Julien merida on 07-04-2023 Albumin DL <= 20 mg/L (U) [Mass/Vol] microgram/mL Normal 0.0 - 19.0 mcg/mL [facility] Remisol Albumin Elph (U) [Mass fraction] mg/dL Invalid Interpretation Code [facility] Remisol Creatinine (U) [Mass/Vol] 17.7 mg/dL Invalid Interpretation Code [facility] Remisol U Prot/Creat Ratio [facility] Invalid Interpretation Code 0.00 - 200.00 [facility] Remisol CHEMISTRYOrdered By: Bobby roman on 07-03-2023 HbA1c (Bld) [Mass fraction] 6.8 % High <=5.9% [facility] ChemAutoSS CBC AUTO DIFFon 01-04-2023 BASO # 0.1 103/ul Normal 0.0-0.1 [facility] Comment on above: Performed By: #### C BC #### [facility] [address] [place], [place] [address] Dr. Lucia San Basophils/100 WBC (Bld) 1.0 % Normal 0.2-2.0 [facility] Comment on above: Performed By: #### C BC #### [facility] [address] [place], [place] [address] Dr. Lucia San EO # 0.1 103/ul Normal 0.0-0.7 [facility] Comment on above: Performed By: #### C BC #### [facility] [address] [place] [address] Dr. Lucia San Eosinophils/100 WBC (Bld) 2.5 % Normal 0.9-7.0 [facility] Comment on above: Performed By: #### C BC #### [facility] [address] [place] [address] Dr. Lucia San Erythrocyte distribution width (RBC) [Ratio] 17.3 % Critically high 11.0-15.0 [facility] Comment on above: Performed By: #### C BC #### [facility] [address] [place] [address] Dr. Lucia San Hematocrit (Bld) [Volume fraction] 35.2 % Critically low 42.0-54.0 [facility] Comment on above: Performed By: #### C BC #### [facility] [address] [place] [address] Dr. Lucia San Hemoglobin (Bld) [Mass/Vol] 11.3 g/dL Critically low 14.0-18.0 [facility] Comment on above: Performed By: #### C BC #### [facility] [address] [place] [address] Dr. Lucia San IG # 0.02 10e3/ul Normal 0.00-0.03 [facility] Comment on above: Performed By: #### C BC #### [facility] [address] [place] [address] Dr. Lucia San IG % 0.4 % Normal 0.0-0.5 [facility] Comment on above: Performed By: #### C BC #### [facility] [address] [place] [address] Dr. Lucia San LYMPH # 1.6 103/ul Normal 1.2-3.8 [facility] Comment on above: Performed By: #### C BC #### [facility] [address] [place] [address] Dr. Lucia San Lymphocytes/100 WBC (Bld) 30.9 % Normal 20.5-60.0 [facility] Comment on above: Performed By: #### C BC #### [facility] [address] [place] [address] Dr. Lucia San MANUAL DIFF REQ NO Normal [facility] Comment on above: Performed By: #### C BC #### [facility] [address] [place] [address] Dr. Lucia San MCH (RBC) [Entitic mass] 23.9 pg Critically low 25.9-34.0 [facility] Comment on above: Performed By: #### C BC #### [facility] [address] [place] [address] Dr. Lucia San MCHC (RBC) [Mass/Vol] 32.1 g/dL Normal 29.9-35.2 [facility] Comment on above: Performed By: #### C BC #### [facility] [address] [place] [address] Dr. Lucia San MCV (RBC) [Entitic vol] 74.6 fL Critically low 80.0-94.0 [facility] Comment on above: Performed By: #### C BC #### [facility] [address] [place] [address] Dr. Lucia San MONO # 0.5 103/ul Normal 0.3-0.8 [facility] Comment on above: Performed By: #### C BC #### [facility] [address] [place] [address] Dr. Lucia San Monocytes/100 WBC (Bld) 9.1 % Normal 1.7-12.0 [facility] Comment on above: Performed By: #### C BC #### [facility] [address] [place] [address] Dr. Lucia San NEUT # 2.9 103/ul Normal 1.4-6.5 [facility] Comment on above: Performed By: #### C BC #### [facility] [address] [place] [address] Dr. Lucia San Neutrophils/100 WBC (Bld) 56.1 % Normal 43.0-75.0 [facility] Comment on above: Performed By: #### C BC #### [facility] [address] [place] [address] [address] Lucia San Platelet mean volume (Bld) [Entitic vol] 11.6 fL Normal 9.5-13.5 [facility] Comment on above: Performed By: #### C BC #### [facility] [address] [place] [address] [address] Lucia San PLT 172 103/ul Normal 150-450 [facility] Comment on above: Performed By: #### C BC #### [facility] [address] [place] [address] [address] Lucia San RBC 4.72 106/ul Normal 4.70-6.10 [facility] Comment on above: Performed By: #### C BC #### [facility] [address] [place] [address] [address] Lucia San WBC 5.2 103/ul Normal 4.0-11.0 [facility] Comment on above: Performed By: #### C BC #### [facility] [address] [place] [address] [address] Lucia San ECHOCARDIO M/2D COMPLETEon 0 01-04-2023 ECHOCARDIO M/2D COMPLETE Patient: MARCELLE DOHERTY Exam Date: 01/04/2023 : 1960 Gender:M Ordering : DR BLANKA ERAZO M.D. Admission #: [id number] Family : Order #: [id number] CLICK HERE TO VIEW EXAM ECHOCARDIOGRAM REPORT [...] Area (VTI): 3.28 cm2, 3.28 cm2 Deceleration [place]: 0.48 m/s2 Pressure Half-Time: 1.33 s Peak [...] [place] M.D. on 01/04/2023 at 15:00 Normal [facility] GLYCOHEMOGLOBIN A1Con 2022 ADA RECOMMENDATION SEE BELOW Normal [facility] Comment on above: Result Comment: ADA RECOMMENDED LIMIT 4.0 - 6.0 ADA THERAPEUTIC TARGET < 7.0 ACTION SUGGESTED > 7.0 Performed By: #### A 1C #### [facility] [address] [place] [address] Dr. Lucia San HbA1c (Bld) [Mass fraction] 6.9 % Critically high 4.5-6.2 [facility] Comment on above: Performed By: #### A 1C #### [facility] [address] [place] [address] Dr. Lucia San LIPID PROFILEon 01-04-2023 CHOL-HDL RATIO NORM SEE BELOW Normal [facility] Comment on above: Result Comment: 3.3 - 4.4 LOW RISK 4.4 - 7.1 AVERAGE RISK 7.1 - 11.0 MODERATE RISK >11.0 HIGH RISK Performed By: #### L IPID #### [facility] [address] [place] [address] Dr. Lucia San Cholesterol [Mass/Vol] 140 mg/dL Normal <=200 [facility] Comment on above: Performed By: #### L IPID #### [facility] [address] [place] [address] [address] Lucia San Cholesterol in HDL [Mass/Vol] 37 mg/dL Critically low 40-60 [facility] Comment on above: Performed By: #### L IPID #### [facility] [address] [place] [address] [address] Lucia San Cholesterol in LDL [Mass/Vol] 80.2 mg/dL Normal [facility] Comment on above: Performed By: #### L IPID #### [facility] [address] [place] [address] [address] Lucia San Cholesterol.total/Cho lesterol in HDL [Mass ratio] 3.8 {ratio} Normal [facility] Comment on above: Performed By: #### L IPID #### [facility] [address] [place] [address] [address] Lucia San HDL NORMAL > or = 60 mg/dl - LOW CARDIOVASCULAR RISK <40 mg/dl - HIGH CARDIOVASCULAR RISK Normal [facility] Comment on above: Performed By: #### L IPID #### [facility] [address] [place] [address] [address] Lucia San LDL CALC NORMAL SEE BELOW Normal [facility] Comment on above: Result Comment: <100 mg/dl OPTIMAL 100 - 129 mg/dl NEAR OR ABOVE OPTIMAL 130 - 159 mg/dl BORDERLINE HIGH 160 - 189 mg/dl HIGH >190 mg/dl VERY HIGH Performed By: #### L IPID #### [facility] [address] [place] [address] [address] Lucia San Triglyceride [Mass/Vol] 114 mg/dL Normal <=150 [facility] Comment on above: Performed By: #### L IPID #### [facility] [address] [place] [address] [address] Lucia San VLDL CALC 22.8 mg/dL Normal [facility] Comment on above: Performed By: #### L IPID #### [facility] [address] [place] [address] [address] Lucia San MICROALBUMIN, RAND URon 03-3 mALB 1.5 mg/L Normal <=30.0 [facility] Comment on above: Performed By: #### M ALBR #### [facility] [address] [place], [place] [address] Dr. Lucia San NM STRESS/REST MULTIon 01-04 NM STRESS/REST MULTI Patient: MARCELLE DOHERTY Exam Date: 01/04/2023 : 1960 Gender:M Ordering : DR BLANKA ERAZO M.D. Admission #: [id number] Family : Order #: [id number] CLICK HERE TO VIEW EXAM RADIOLOGY REPORT [...] LOCATION: Basal inferior. Mid-anterior. Mid-inferior. Apical inferior. [place]. SIZE: Large (5 or more segments). SEVERITY: [...] MD on 01/04/2023 at 11:14 Approved by: Jannte Guzman MD on 01/04/2023 at 11:17 Normal [facility] PROF 14(COMP METB)on 023 Albumin [Mass/Vol] 4.1 g/dL Normal 3.4-5.0 [facility] Comment on above: Performed By: #### C MP #### [facility] [address] [place] [address] Dr. Lucia San Albumin/Globulin [Mass ratio] 1.7 {ratio} Normal [facility] Comment on above: Performed By: #### C MP #### [facility] [address] [place] [address] [address] Lucia San ALP [Catalytic activity/Vol] 51 U/L Normal 46-116 [facility] Comment on above: Performed By: #### C MP #### [facility] [address] [place] [address] Dr. Lucia San ALT [Catalytic activity/Vol] 49 U/L Normal 16-63 [facility] Comment on above: Performed By: #### C MP #### [facility] [address] [place] [address] Dr. Lucia San Anion gap [Moles/Vol] 16.6 mmol/L Normal [facility] Comment on above: Performed By: #### C MP #### [facility] [address] [place] [address] Dr. Lucia San AST [Catalytic activity/Vol] 28 U/L Normal 15-37 [facility] Comment on above: Performed By: #### C MP #### [facility] [address] [place] [address] Dr. Lucia San Bilirubin [Mass/Vol] 1.7 mg/dL Critically high 0.2-1.0 [facility] Comment on above: Performed By: #### C MP #### [facility] [address] [place] [address] Dr. Lucia San Calcium [Mass/Vol] 9.2 mg/dL Normal 8.5-10.1 [facility] Comment on above: Performed By: #### C MP #### [facility] [address] [place] [address] Dr. Lucia San Chloride [Moles/Vol] 100 mmol/L Normal 98-107 [facility] Comment on above: Performed By: #### C MP #### [facility] [address] [place] [address] [address] Lucia San CO2 [Moles/Vol] 25.9 mmol/L Normal 21.0-32.0 [facility] Comment on above: Performed By: #### C MP #### [facility] [address] [place] [address] [address] Lucia San Creatinine [Mass/Vol] 1.03 mg/dL Normal 0.70-1.30 [facility] Comment on above: Performed By: #### C MP #### [facility] [address] [place] [address] [address] Lucia San EGFR-AF IRISH >60 Normal >=60 [facility] Comment on above: Performed By: #### C MP #### [facility] [address] [place] [address] Dr. Lucia San EGFR-NON AF IRISH >60 Normal >=60 [facility] Comment on above: Performed By: #### C MP #### [facility] [address] [place] [address] Dr. Lucia San Globulin (S) [Mass/Vol] 2.4 g/dL Normal [facility] Comment on above: Performed By: #### C MP #### [facility] [address] [place] [address] Dr. Lucia San Glucose [Mass/Vol] 151 mg/dL Normal [facility] Comment on above: Performed By: #### C MP #### [facility] [address] [place] [address] Dr. Lucia San Performed By: #### A 1C #### [facility] [address] [place] [address] [address] Lucia San Potassium [Moles/Vol] 4.5 mmol/L Normal 3.5-5.1 [facility] Comment on above: Performed By: #### C MP #### [facility] [address] [place] [address] [address] Lucia San Protein [Mass/Vol] 6.5 g/dL Normal 6.4-8.2 [facility] Comment on above: Performed By: #### C MP #### [facility] [address] [place] [address] [address] Lucia San Sodium [Moles/Vol] 138 mmol/L Normal 136-145 [facility] Comment on above: Performed By: #### C MP #### [facility] [address] [place] [address] [address] Lucia San Urea nitrogen [Mass/Vol] 13.0 mg/dL Normal 7.0-18.0 [facility] Comment on above: Performed By: #### C MP #### [facility] [address] [place] [address] [address] Lucia San Urea nitrogen/Creatinine [Mass ratio] 12.6 mg/mg Normal [facility] Comment on above: Performed By: #### C MP #### [facility] [address] [place] [address] [address] Lucia Rondon 02-03-2022 CN Office Visit (CARDMN) MARCELLE DOHERTY ([id number]) 1960 M Date Time Provider Department 02/03/22 8:30 AM JANNET GONZALEZ During your visit today, we recorded the following information about you: Pulse Blood pressure Weight Height 60/minute 180/76 85.3 kg 1.765 m Jannet Gonzalez MD 02/03/2022 9:58 AM Signed [facility] Emiliano Plascencia Department of Cardiovascular Medicine SECTION OF CARDIAC PACING and ELECTROPHYSIOLOGY OUTPATIENT VISIT DATE February 03, 2022 OUTPATIENT VISIT TYPE CONSULTATION PRIMARY CARE PHYSICIAN: Mark Browning DO [address] [place] [address] CHIEF COMPLAINT: PAF HISTORY OF PRESENT ILLNESS [...] he is in SR. He denies syncope. 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 70% ostial D1. Preserved [...] sweating-No, Frequen (more content not included)... Normal [facility] 12-04-2021 [facility] Letter Text Normal [facility] 0 Dermatopathology [facility] Dermatopathology Laboratory [address] [place] [id number] DERMATOPATHOLOGY REPORT Name:MARCELLE DOHERTY [facility]. Rec #. [id number] Location: [facility] Date of Procedure: 10/02/2020 Race: Unknown Date Received: 10/06/2020 /Sex: 1960 (Age: 60) / M Date Reported: 10/08/2020 Other: Submitting Physician:SONIA GREEN APRN, NETWORK SECURITY ARCHITECT-C FINAL DIAGNOSIS A. SKIN, (R) NECK, [...] is a mayers piece of skin measuring [id number] in aggreg (small). The specimen is inked and embedded in toto. B: Received in formalin is a mayers piece of skin measuring [id number]. The specimen is inked and embedded in toto. ink/10/06/2020 Microscopic Description: A,B: Microscopic examination performed. Normal [facility] Comment on above: Performed By: #### D #### Dermatopathology Vital Signs Date Time Vital Sign Value Performing Clinician Facility 09-09-2024 11:18-0500 Body temperature 98.06 [degF] Ana Demboske [facility] 09-09-2024 11:18-0500 Diastolic blood pressure 87 mm[Hg] Ana Hubbardboske [facility] 09-09-2024 11:18-0500 Heart rate 72 /min Ana Hubbardboske [facility] 09-09-2024 11:18-0500 Mean blood pressure 119 mm[Hg] Ana Hubbardboske [facility] 09-09-2024 11:18-0500 Respiratory rate 18 /min Ana Lingke [facility] 09-09-2024 11:18-0500 SaO2% (BldA) [Mass fraction] 98 % Ana Lingke [facility] 09-09-2024 11:18-0500 Systolic blood pressure 183 mm[Hg] Ana Lingke [facility] 03-14-2024 10:16-0400 Body temperature 97.52 [degF] Ana Hubbardboske [facility] 03-14-2024 10:16-0400 Diastolic blood pressure 85 mm[Hg] Ana Hubbardboske [facility] 03-14-2024 10:16-0400 Heart rate 59 /min Ana Hubbardboske [facility] 03-14-2024 10:16-0400 Mean blood pressure 116 mm[Hg] Ana Hubbardboske [facility] 03-14-2024 10:16-0400 Respiratory rate 16 /min Ana Hubbardboske [facility] 03-14-2024 10:16-0400 SaO2% (BldA) [Mass fraction] 99 % Ana Lingke [facility] 03-14-2024 10:16-0400 Systolic blood pressure 179 mm[Hg] Ana Lingke [facility] 02-15-2024 13:10-0400 Blood Pressure Location Ana Spencer [facility] 02-15-2024 13:10-0400 Body temperature 98.06 [degF] Ana Spencer [facility] 02-15-2024 13:10-0400 Diastolic blood pressure 61 mm[Hg] Ana Spencer [facility] 02-15-2024 13:10-0400 Heart rate 62 /min Ana Spencer [facility] 02-15-2024 13:10-0400 Mean blood pressure 77 mm[Hg] Ana Spencer [facility] 02-15-2024 13:10-0400 Respiratory rate 16 /min Ana Spencer [facility] 02-15-2024 13:10-0400 SaO2% (BldA) [Mass fraction] 99 % Ana Specner [facility] 02-15-2024 13:10-0400 Systolic blood pressure 108 mm[Hg] Ana Spencer [facility] 02-08-2024 13:00-0400 Blood Pressure Location Ana Spencer [facility] 02-08-2024 13:00-0400 Body temperature 98.24 [degF] Ana Spencer [facility] 02-08-2024 13:00-0400 Diastolic blood pressure 82 mm[Hg] Ana Spencer [facility] 02-08-2024 13:00-0400 Heart rate 80 /min Ana Hubbardboske [facility] 02-08-2024 13:00-0400 SaO2% (BldA) [Mass fraction] 100 % Ana Hubbardboske [facility] 02-08-2024 13:00-0400 Systolic blood pressure 142 mm[Hg] Ana Hubbardboske [facility] 01-25-2024 08:58-0400 Diastolic blood pressure 82 mm[Hg] Ana Hubbardboske [facility] 01-25-2024 08:58-0400 Heart rate 65 /min Ana Hubbardboske [facility] 01-25-2024 08:58-0400 Mean blood pressure 118 mm[Hg] Ana Hubbardboske [facility] 01-25-2024 08:58-0400 SaO2% (BldA) [Mass fraction] 99 % Ana Spencer [facility] 01-25-2024 08:58-0400 Systolic blood pressure 190 mm[Hg] Ana Hubbardboske [facility] 08-16-2023 08:21-0400 Blood Pressure Location Shelley Lue [facility] 08-16-2023 08:21-0400 Diastolic blood pressure 83 mm[Hg] Shelley Lue [facility] 08-16-2023 08:21-0400 Heart rate 69 /min Shelley Lue [facility] 08-16-2023 08:21-0400 Respiratory rate 16 /min Shelley Lue [facility] 08-16-2023 08:210400 Systolic blood pressure 166 mm[Hg] Shelley Bruce [facility] Encounters Encounter Date Encounter Type Care Provider Facility Start: 09-26-2024 End: 09-26-2024 ambulatory Aan Spencer [facility] Start: 09-26-2024 End: 09-26-2024 Patient encounter procedure Ana Spencer [facility] Start: 09-10-2024 End: 09-10-2024 ambulatory [facility] Start: 09-09-2024 End: 09-09-2024 ambulatory Ana Spencer Facility[facility] Start: 09-09-2024 End: 09-09-2024 Patient encounter procedure Ana Spencer [facility] Start: 09-04-2024 End: 09-04-2024 ambulatory Ana Spencer Facility[facility] Start: 09-04-2024 End: 09-04-2024 Patient encounter procedure Ana Spencer [facility] Start: 08-29-2024 End: 08-29-2024 ambulatory Ana Spencer Facility[facility] Start: 08-29-2024 End: 08-29-2024 Patient encounter procedure Ana Spencer [facility] Start: 08-01-2024 End: 08-01-2024 ambulatory Ana Spencer Facility:[facility] Start: 08-01-2024 End: 08-01-2024 Patient encounter procedure Ana Spencer [facility] Start: 08-01-2024 End: 08-01-2024 ambulatory Ursula Love [facility] Start: 07-31-2024 End: 08-08-2024 ambulatory Ursula IveyNelly Km Facility:[facility] Start: 07-29-2024 End: 07-29-2024 ambulatory Leonora Camacho MD Facility:[facility] Start: 07-12-2024 End: 07-12-2024 ambulatory [facility] Start: 07-04-2024 End: 07-04-2024 ambulatory Ana Spencer Facility[facility] Start: 07-04-2024 End: 07-04-2024 Patient encounter procedure Ana Spencer [facility] Start: 06-27-2024 End: 07-10-2024 Orders Only Jannet Gonzalez MD Work Phone: Cardiology Comment on above: Atrial fibrillation, unspecified type (HCC) (Primary Dx) Start: 2024 End: 2024 ambulatory Ursula Charlotte Love Facility:[facility] Start: 06-06-2024 End: 06-06-2024 ambulatory Ana Spencer Facility:[facility] Start: 06-06-2024 End: 06-06-2024 Patient encounter procedure Ana Spencer [facility] Start: 05-09-2024 End: 05-09-2024 ambulatory Ana Spencer Facility:[facility] Start: 05-09-2024 End: 05-09-2024 Patient encounter procedure Ana Spencer [facility] Start: 04-24-2024 End: 05-08-2024 ambulatory Ursula Charlotte Km Facility[facility] Start: 04-11-2024 End: 04-11-2024 ambulatory Ana Spencer Facility:[facility] Start: 04-11-2024 End: 04-11-2024 Patient encounter procedure Ana Spencer [facility] Start: 03-26-2024 End: 03-26-2024 ambulatory Ursula Love Facility:[facility] Start: 03-22-2024 End: 04-09-2024 ambulatory Ursula oLve Facility:[facility] Start: 03-14-2024 End: 03-14-2024 ambulatory Ana Spencer Facility:[facility] Start: 03-14-2024 End: 03-14-2024 Patient encounter procedure Ana Spencer [facility] Start: 03-12-2024 End: 03-12-2024 ambulatory Ana Spencer Facility:[facility] Start: 03-12-2024 End: 03-12-2024 Patient encounter procedure Ana Spencer [facility] Start: 02-15-2024 End: 02-15-2024 ambulatory Ana Spencer Facility[facility] Start: 02-15-2024 End: 02-15-2024 Patient encounter procedure Ana Spencer [facility] Start: 02-08-2024 End: 02-08-2024 ambulatory Ana Spencer Facility[facility] Start: 02-08-2024 End: 02-08-2024 Patient encounter procedure Ana Spencer [facility] Start: 02-01-2024 End: 02-01-2024 ambulatory Ana Spencer Facility:[facility] Start: 02-01-2024 End: 02-01-2024 Patient encounter procedure Ana Spencer [facility] Start: 01-25-2024 End: 02-07-2024 ambulatory Ursula Love Facility[facility] Start: 01-25-2024 End: 01-25-2024 Patient encounter procedure Ana Spencer [facility] Start: 01-16-2024 End: 01-16-2024 ambulatory Bharath Melton Facility:[facility] Start: 01-16-2024 End: 01-16-2024 Patient encounter procedure Bharath Melton [facility] Start: 12-29-2023 End: 12-29-2023 ambulatory PARISA [facility] Start: 12-28-2023 End: 12-28-2023 ambulatory Ursula Love Facility:[facility] Start: 12-27-2023 End: 12-27-2023 ambulatory Ursula Love Facility[facility] Start: 12-27-2023 End: 12-27-2023 Patient encounter procedure Ursula Love [facility] Start: 12-19-2023 ambulatory Ursula Love Facility :CD:[id number] Start: 12-18-2023 End: 12-18-2023 Lab Drop off Ursula Love [facility] Start: 12-18-2023 End: 12-18-2023 ambulatory Ursula Love Facility[facility] Start: 12-18-2023 End: 12-18-2023 ambulatory Ursula Love Facility:[facility] Start: 10-04-2023 End: 10-04-2023 ambulatory Jose Luis THOMAS Facility: [facility] Start: 10-04-2023 End: 10-04-2023 Patient encounter procedure Jose Luis Boyd NILL [facility] Nill[facility] Start: 08-16-2023 End: 08-16-2023 Patient encounter procedure Shelley Bruce [facility] Start: 08-07-2023 End: 08-07-2023 Patient encounter procedure Ursula Love [facility] Start: 08-04-2023 End: 08-04-2023 Lab Drop off Karen Romano [facility] Start: 07-04-2023 End: 07-04-2023 Lab Drop off Ursula Love [facility] Start: 07-03-2023 End: 07-03-2023 Lab Drop off Ursula Love [facility] Start: 01-04-2023 End: 01-05-2023 ambulatory URSULA LOVE Facility:[facility] Start: 04-01-2022 End: 04-01-2022 Off-Site Ursula Love [facility] Start: 03-30-2022 End: 03-30-2022 Off-Site Ursula Love [facility] Start: 02-03-2022 Orders Only Jannet Timmons Work Phone: Cardiology Comment on above: Persistent atrial fi brillation (HCC) (Primary Dx) Procedures Date Procedure Procedure Detail Performing Clinician Start: 09-20-2023 Colonoscopy Jose Luis NI LL Cardiac ablation sys tem (physical object) Shelley Bruce Cardiac catheterization Hernandez ael NILL Repair of musculoten dinous cuff of shoulder Jose Luis VALLEJOJose Manuel Rupture of tendon of biceps (disorder) Jose Luis THOMAS Structure of right s houlder region (body structure) Ursula Love Tonsillectomy Jose Luis THOMAS Plan of Treatment Date Care Activity Detail Author Start: 01-30-2025 ambulatory Ambulatory Facility:[facility] Start: 12-19-2024 End: 12-19-2024 Patient encounter procedure 12/19/2024 9:15 AM EST Office Visit Cardiology [id number] Jannet Gonzalez MD [address] [place] [address] Paroxysmal atrial fibrillation (HCC) [I48.0] Cardiology Comment on above: Paroxysmal atrial fi brillation (HCC) [I48.0] Start: 12-19-2024 End: 12-19-2024 ambulatory 12/19/2024 8:30 AM EST Results Only Cardiology [address] [place] [address] Paroxysmal atrial fibrillation (HCC) [I48.0] Cardiology Comment on above: Paroxysmal atrial fi brillation (HCC) [I48.0] Start: 12-17-2024 ambulatory Ambulatory Facility:[facility] Start: 06-16-2024 Covid-19 Vaccine ( season) Covid-19 Vaccine ( season) [facility] Start: 06-16-2024 Influenza vaccination Influenza Vacc ine (#1) [facility] Start: 10-16-2023 Advance Directive Discussion Advance Directive Discussion [facility] Start: 2023 Pneumococcal Vaccine : 65+ (1 of 1 - PCV) Pneumococcal Vaccine: 65+ (1 of 1 - PCV) [facility] Start: 07-04-2020 DIABETES SCREEN DIABETES SCREEN [facility] Start: 07-04-2020 Diabetes Screening Diabetes Screenin g [facility] Start: 2018 RSV Vaccine (1 - 1-d ose 60+ series) RSV Vaccine (1 - 1-dose 60+ series) [facility] Start: 2013 PROSTATE CANCER SCREENING DISCUSSION PROSTATE CANCER SCREENING DISCUSSION [facility] Start: 2013 Prostate specific antigen measurement Prostate Cancer Screening Discussion [facility] Start: 2008 SHINGRIX VACCINE (1 of 2) SHINGRIX VACCINE (1 of 2) [facility] Start: 2003 COLOGUARD (FIT-DNA) COLOGUARD (FIT-D NA) [facility] Start: 2003 Colonoscopy COLONOSCOPY [facility] Start: 2003 COLORECTAL CANCER SCREENING COLORECTAL CANCER SCREENING [facility] Start: [address] COLONOGRAPHY [facility] Start: 2003 FECAL OCCULT BLOOD FECAL OCCULT BLOO D [facility] Start: 2003 Screening for malign ant neoplasm of colon [facility] Start: 2003 SIGMOIDOSCOPY SIGMOIDOSCOPY [facility] Start: 1993 Lipid panel Lipid Screening [facility] Start: 1993 LIPID SCREEN LIPID SCREEN [facility] Start: 1977 Urine microalbumin profile [facility] Start: 1976 ANNUAL PCP TEAM ART INSTALLER SARAH DISEASE VISIT ANNUAL PCP TEAM CHRONIC DISEASE VISIT [facility] Start: 1976 Anxiety Screening Anxiety Screening [facility] Start: 1976 BP CONTROLLED (<130/80) BP CONTROLLE D (<130/80) [facility] Start: 1976 Depression Screening Depression Scre ening [facility] Start: 1976 Hepatitis B surface antibody level LDL CHOLESTEROL [facility] Start: 1976 HEPATITIS C SCREENING HEPATITIS C [facility] Start: 1976 Hepatitis C screening Hepatitis C [facility] Start: 1976 HIV SCREENING HIV SCREENING [facility] Start: 1970 Adult depression screening assessment DEPRESSION SCREENING [facility] Start: 1960 Abdominal aortic aneurysm screening Abdominal Aortic Aneurysm Screening [facility] End: 02-03-2023 ECG COMPLETE ECG COMPLETE ECG Routine Persistent atrial fibrillation (HCC) 1 Occurrences starting 02/03/2022 until 02/03/2023 [facility] Work Phone: Comment on above: 1 Occurrences starti ng 02/03/2022 until 02/03/2023 End: 06-27-2025 ECG COMPLETE ECG COMPLETE ECG Routine Atrial fibrillation, unspecified type (HCC) 1 Occurrences starting 06/27/2024 until 06/27/2025 [facility] Work Phone: Comment on above: 1 Occurrences starti ng 06/27/2024 until 06/27/2025 [facility] Immunizations Immunization Date Immunization Notes Care Provider Fa cility 08-31-2021 SARS-CoV-2 (COVID-19 ) Ad26 vaccine, recombinant Ursula Ross [facility] Comment on above: Result Comment: 2021: [id number] 07-23-2021 influenza virus vaccine, unspecified formulation Ursula Love [facility] 12-23-2020 SARS-CoV-2 (COVID-19 ) Ad26 vaccine, recombinant Ursulahiram Love [facility] 07-30-2018 influenza virus vaccine, unspecified formulation Ursula Love [facility] NEGATED: Highlighted row has not occurred!07-03-2023 influenza virus vaccine, unspecified formulation Ursula Love [facility] Payers Date Payer Category Payer Private Health Insurance [facility] AARP SUPPLEMENT [id number] 2023-Present [phone] [address] [place] [address] Indemnity [id number] 2023 Unknown 2023 Medicare [id number]. [id number] 2023 Medicare [id number] 2023 Unknown [id number] 2021 Unknown SHELLIE BARRIOS PPO [id number] 2021-Present [phone] [address] [place] [address] PPO [id number]. [id number] 1959 Unknown [id number] 1958 Unknown [id number] 2.16.840.1.315329.3.579.2. 593 1958 Unknown [id number] 2.16.840.1.171646.3.579.2. 593 1958 Unknown [id number] 2.16.840.1.213198.3.579.2. 196 1958 Unknown [id number] 2.16.840.1.284635.3.579.2. 727 1958 Unknown [id number] 2.16.840.1.453073.3.579.2. 727 1958 Unknown [id number] 2.16.840.1.558480.3.579.2. 727 1958 Unknown [id number] 2.16.840.1.651254.3.579.2. 727 1958 Unknown [id number] 2.16.840.1.031968.3.579.2. 727 1958 Unknown [id number] 2.16.840.1.697967.3.579.2. 727 1958 Unknown [id number] 2.16.840.1.671779.3.579.2. 727 1958 Unknown [id number] 2.16.840.1.861562.3.579.2. 727 1958 Unknown [id number] 2.16.840.1.488886.3.579.2. 727 1958 Unknown [id number] 2.16.840.1.898755.3.579.2. 1958 Unknown [id number] 2.16.840.1.443139.3.579.2. 727 1958 Unknown [id number] 2.16.840.1.540841.3.579.2. 1958 Unknown [id number] 2.16.840.1.287843.3.579.2. 1958 Unknown [id number] 2.16.840.1.795168.3.579.2. 1958 Unknown [id number] 2.16.840.1.371830.3.579.2. 1958 Unknown [id number] 2.16.840.1.972290.3.579.2. 1958 Unknown [id number] 2.16.840.1.285267.3.579.2. 1958 Unknown [id number] 2.16.840.1.399636.3.579.2. 1958 Unknown [id number] 2.16.840.1.498326.3.579.2. 1958 Unknown [id number] 2.16.840.1.545699.3.579.2. 72 1958 Unknown [id number] 2.16.840.1.867982.3.579.2. 72 1958 Unknown [id number] 2.16.840.1.206347.3.579.2. 1958 Unknown [id number] 2.16.840.1.456084.3.579.2. 72 1958 Unknown [id number] 2.16.840.1.845153.3.579.2. 727 1958 Unknown [id number] 2.16.840.1.269864.3.579.2. 727 1958 Unknown [id number] 2.16.840.1.716521.3.579.2. 727 1958 Unknown [id number] 2.16.840.1.499198.3.579.2. 727 1958 Unknown [id number] 2.16.840.1.233037.3.579.2. 72 1958 Unknown [id number] 2.16.840.1.218869.3.579.2. 72 1958 Unknown [id number] 2.16.840.1.825644.3.579.2. 727 1958 Unknown [id number] 2.16.840.1.762363.3.579.2. 72 1958 Unknown [id number] 2.16.840.1.638838.3.579.2. 727 Social History Date Type Detail Facility Start: 08-25-2014 End: 09-09-2024 Tobacco smoking status NHIS Ex-smoker [facility] Comment on above: Quit in 2013 after M I quit age 53 (39 pack years) Start: 10-25-1955 End: 08-09-2014 History of tobacco use Current smoker [facility] Start: 10-25-1955 End: 08-09-2014 History of tobacco use Cigarette Smoker [facility] Start: 08-25-2014 End: 09-23-2020 Cigarettes smoked current (pack per day) - Reported 0.5 [facility] Start: 08-25-2014 Tobacco use and exposure Smokeless tobacco non-user [facility] Start: 02-03-2022 Alcohol intake Current drinke r of alcohol (finding) [facility] Start: 1960 Sex Assigned At Not on file C [facility] Start: 01-24-2022 End: 02-03-2022 Exposure to SARS-CoV-2 (event) Not sure [facility] Tobacco smoking status No [facility]okin g [facility] Start: 09-23-2020 End: 02-03-2022 Sex Assigned At Male [facility] Start: 04-01-2022 Tobacco smoking status Never s moked tobacco (finding) [facility] Tobacco smoking status Never [facility] Comment on above: Quit in 2013 after M I quit age 53 (39 pack years) Medical Equipment Procedure Code Equipment Code Equipment Origin al Text Equipment Identifier Dates Lancets, See Instructions, EA, Lancets, to check BS once daily E11.9, Supply Start: 2024 Lancets, See Instructions, 100 lancet(s), 0, Lancets, to check BS once daily E11.9, [id number], Supply, 179, cm, 03/26/24 10:53:00 EDT, Height/Length Dosing, 86, kg, 03/26/24 10:53:00 EDT, Weight Dosing Start: 2024 One Touch Ultra 2 Test Strips, See Instructions, Supply Start: 2024 One Touch Ultra 2 Test Strips, See Instructions, 100 strip(s), 0, One Touch Ultra 2 Glucometer Test Strips, to check BS once daily E11.9, [id number], Supply, 179, cm, 03/26/24 10:53:00 EDT, Height/Length Dosing, 86, kg, 03/26/24 10:53:00 EDT, Weight Dosing Start: 2024 One Touch Ultra 2 Test Strips, See Instructions, 100 strip(s), 0, One Touch Ultra 2 Glucometer Test Strips, to check BS once daily E11.9, [id number], Supply, 179, cm, 03/26/24 10:53:00 EDT, Height/Length Dosing, 86, kg, 03/26/24 10:53:00 EDT, Weight Dosing Start: 2024 One Touch Ultra 2 Test Strips, See Instructions, 100 strip(s), 0, One Touch Ultra 2 Glucometer Test Strips, to check BS once daily E11.9, [id number], Supply, 179, cm, 03/26/24 10:53:00 EDT, Height/Length Dosing, 86, kg, 03/26/24 10:53:00 EDT, Weight Dosing Start: 2024 One Touch Ultra 2 Test Strips, See Instructions, 100 strip(s), 0, One Touch Ultra 2 Glucometer Test Strips, to check BS once daily E11.9, [id number], Supply, 179, cm, 03/26/24 10:53:00 EDT, Height/Length Dosing, 86, kg, 03/26/24 10:53:00 EDT, Weight Dosing Start: 2024 One Touch Ultra 2 Test Strips, See Instructions, 100 strip(s), 0, One Touch Ultra 2 Glucometer Test Strips, to check BS once daily E11.9, [id number], Supply, 179, cm, 03/26/24 10:53:00 EDT, Height/Length Dosing, 86, kg, 03/26/24 10:53:00 EDT, Weight Dosing Start: 2024 One Touch Ultra 2 Test Strips, See Instructions, 100 strip(s), 0, One Touch Ultra 2 Glucometer Test Strips, to check BS once daily E11.9, [id number], Supply, 179, cm, 03/26/24 10:53:00 EDT, Height/Length Dosing, 86, kg, 03/26/24 10:53:00 EDT, Weight Dosing Start: 2024 Goals Date Patient Goal Desired Activity /State 12-28-2023 Functional Status Date Assessment Result Facility 08-16-2023 Functional Status N/A [facility] 04-01-2022 Functional Status Telehealth Patient [facility] [place] Clinical Notes 02-03-2022 to 09-10-2024 RadiologyRadiologyRadiologyRadiologyRadiologyRadiologyLaboratoryRadiologyLaborat oryRadiologyLaboratoryRadiologyLaboratoryRadiologyRadiologyLaboratoryRadiologyLa boratoryRadiologyLaboratoryRadiology Note Date & Type Note Facility 09-10-2024 Note [facility] 09-10-2024 Note [place] [facility] [place] [facility] Reason for visit: Afib Prior HPI: Marcelle Doherty is a 64 y.o. 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 PHAN. There is a history of prior A-fib ablation done at [facility] on 07/10/2017 by and was noted to have atrial flutter subsequently which was converted by cardioversion to sinus rhythm on 07/28/2017. Since then he has been following up with Jannet Gonzalez at [facility]. He is currently maintained on metoprolol and propafenone and he takes them on an as-needed basis along with Cardizem for rate control. There is a note of have A-fib for recurrence in 2020 which converted on his own. Given the recurrence of atrial fibrillation he was started on amiodarone which she could not tolerate and hence this was stopped. His frequency of A-fib recurrences since then increased with episodes lasting up to 30 minutes and is quite symptomatic with this. His [id number] score is 3 with risk factors of hypertension CAD and diabetes and is on Xarelto for this. I had previously seen him on 11/26/2021 and had recc ablation but due to financial reasons, chose to use Amio at that time. He reports that 1 he is having atrial fibrillation he gets severe symptoms of angina. He takes Cardizem 60 mg as needed and this controls the atrial fibrillation but he feels very bad while in atrial fibrillation. He is interested in exploring options for ablation now, ' Pulse check SR PMH: Past Medical History: Diagnosis Date CAD (coronary artery disease) Hypertension PAF (paroxysmal atrial fibrillation) ([facility]) PSH: Past Surgical History: Procedure Laterality Date CARDIAC CATHETERIZATION SH: Social Determinants of Health Tobacco Use: Medium Risk (09/10/2024) Patient History Smoking Tobacco Use: Former Smokeless Tobacco Use: Never Passive Exposure: Not on file Alcohol Use: Not on file Financial Resource Strain: Not on file Food Insecurity: Not on file Transportation Needs: Not on file Physical Activity: Not on file Stress: Not on file Social Connections: Not on file Intimate Partner Violence: Unknown (12/07/2023) [place] Safety & [place] Fear of Current or Ex-Partner: Not on file Emotionally Abused: Not on file Physically Abused: Not on file Sexually Abused: Not on file Physically or Sexually Abused: Not on file Depression: Not on file Housing Stability: Not on file Utilities: Not on file Health Literacy: Not on file Allergies: Allergies Allergen Reactions Penicillins Hives Weight: 79.8kg Visit Vitals BP 180/90 (BP Location: Left arm, Patient Position: Sitting, BP Cuff Size: Adult) Pulse 66 Resp 12 Ht 1.778 m (5' 10 ) Wt 79.8 kg (176 lb) SpO2 98% BMI 25.25 kg/m??? Smoking Status Former BSA 1.99 m??? Meds: Current Outpatient Medications on File Prior to Visit Medication Sig Dispense Refill amLODIPine (Norvasc) 5 mg tablet TAKE 1 TABLET EVERY MORNING 90 tablet 3 apixaban (Eliquis) 5 mg tablet Take 1 tablet (5 mg) by mouth in the morning and at bedtime. 60 tablet 11 aspirin 81 mg chewable tablet aspirin 81 mg chewable tablet atorvastatin (Lipitor) 80 mg tablet TAKE 1 TABLET AT BEDTIME 90 tablet 3 cloNIDine (Catapres) 0.1 mg tablet TAKE 1 TABLET IN THE MORNING AND AT BEDTIME 180 tablet 3 dilTIAZem (Cardizem) 30 mg immediate release tablet Take 1 tablet (30 mg) by mouth if needed (for palpitations/afib). (Patient taking differently: Take 60 mg by mouth if needed (for palpitations/afib).) 90 tablet 1 ezetimibe (Zetia) 10 mg tablet Take 1 tablet (10 mg) by mouth once daily as directed. 90 tablet 3 isosorbide mononitrate ER (Imdur) 120 mg 24 hr tablet TAKE 1 TABLET ONCE DAILY ASDIRECTED. DO NOT CRUSH OR CHEW. 90 tablet 3 lisinopril 20 mg tablet [...] DR capsule omeprazole 20 mg capsule,delayed release ranolazine (Ranexa) 500 mg 12 hr tablet Take 1 tablet (500 mg) by mouth in the morning and at bedtime. Do not crush, chew, or split. 180 tablet 3 [DISCONTINUED] baclofen (Lioresal) 10 mg tablet Take 10 mg by mouth two times daily. [DISCONTINUED] Pro Fe 180 mg iron capsule Take by mouth in the morning. No current facility-administered medications on file prior to visit. ROS: Cardio Basic Cardiovascular Symptoms: no lightheadedness, no leg edema, no syncope, no orthopnea, no PND, no claudication, Constitutional Constitutional: no fever, no night sweats, no significant weight gain, no significant weight loss, no exercise intolerance Eyes Eyes: no dry eyes, (more content not included)... [facility] 09-09-2024 Note Oncology Progress No te Chief Complaint Follow up on anemia and B-12 def. no specific questions or concerns today. Diagnoses 1. Iron deficiency anemia (D50.9: Iron deficiency anemia, unspecified) Ordered: ONC Office Visit 30 Min Orders: CBC w/ Auto Diff Comprehensive Metabolic Panel Ferritin Iron Level Iron Percent Saturation ONC Office Visit 20 Min Transferrin Oncological History/ROS/PE/Assessment and Plan Mr. Doherty is a 63 [...] a colonoscopy done in Sep 2023 at [facility] after positive Cologuard test. This showed [...] his home for the summer labs improved 09/09/24 is doing well, energy has been good overall and he remains active denies shortness of breath. Only time he gets chest pain is when he has an episode of a fib denies muscle cramps or restless legs feels like his hands get cold a lot. Denies any numbness or tingling denies dizziness. Every so often will still have lightheadedness in the morning with bending over eating and drinking ok, has been eating healthy and lost some weight intentionally has had injections that have helped his back pain significantly no ice cravings no other changes. Labs with stable plt, bili. Iron studies and hgb WNL Physical Exam General: No acute distress. Respiratory: Respirations are non-labored, Symmetrical chest wall expansion [...] to near normal and symptoms are improved Aug 2024 iron studies remain WNL, no new concerns. Will repeat labs with follow-up in 6mo, sooner if needed B12 deficiency January 2024 labs with B12 at 213. Initiated weekly injections x4, switched to monthly February 2024 Continue monthly Paraproteins ok previously Platelets and LFTs remain stable Follow-up With When Contact Information Tj NATHAN-PEMA, Ana Rivas, ONC [facility] [address] [place] [phone]- [phone] Additional Instructions: continue b12 injections monthly cbc, cmp, iron (more content not included)... [facility] 07-12-2024 Note [place] [facility] [place] [facility] Subjective Marcelle Doherty is a [...] of an abnormal stress test that showed PUBLIC HE[employer] 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 of the RCA with filling via left to right collaterals. He also had a 70% stenosis in a diagonal branch (the prior report mentions that it is not amenable to intervention). At that time left-ventricular gram showed normal left ventricular ejection fraction at 60%. 2. Paroxysmal atrial fibrillation, status post ablation in 2017 at the [facility]. He also had prior cardioversion. He is [...] episodes of atrial fibrillation. He has a [employer] machine that he uses to transmit ECG. [...] and time. Psychiat (more content not included)... [facility] 03-20-2024 Hospital Discharge instructions Follow Up Care 03/20/2024 09:48:36 With:Ana Kumar, ONC Address: [address] [phone] [phone] When: Unknown Comments:continue b12 injections monthlycbc, cmp, iron studies in 6mofollow-up in 6mo [facility] 01-25-2024 Hospital Discharge instructions Follow Up Care 01/25/2024 12:17:38 With:Ana Kumar, ONC Address: [address] [phone] [phone] When: Unknown Comments:cbc, cmp, iron studies in 3mo and 6mofollow-up in 6mo with NETWORK SECURITY ARCHITECT [facility] 12-29-2023 Note LDL > 70 therefore c ontinue lipitor 80 mg and will add zetia 10 mg daily Repeat lipid level before next appt in about 3-6 months [facility] 12-29-2023 Note Hypertension is typi jimmie stable with review of his home b/p log. Definitely has white coat syndrome Continue norvasc, clonidine, lisinopril and toprol [facility] 12-29-2023 Note Coronary artery dise ase is stable Continue GDMT- ASA, lipitor, imdur, toprol, and ranexa continue risk factor modifications- heart healthy diet, regular exercise as tolerated and continue all medications. [facility] 12-29-2023 Note Rate stable with top rol Anticoagulation with eliquis and denied any bleeding tendencies. [facility] 12-29-2023 Note Order ABD Aorta US i n 6 months to re-evalulate infrarenal AAA. [facility] 12-29-2023 Hospital Discharge instructions Follow Up Care 12/29/2023 11:16:26 With:Tj BURTON, Ana Rivas, ONC Address: [facility] [address] [place] [phone] When: Unknown Comments:IV Injectafer x2B12 injections weekly x4, then monthlycbc, cmp, iron studies in 8wksfollow-up in 8wks with NETWORK SECURITY ARCHITECT [facility] 12-29-2023 Note UTP CARDIOLOGY PROGR [...] of an abnormal stress test that showed PUBLIC HEALTH 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 of the RCA with filling via left to right collaterals. He also had a 70% stenosis in a diagonal branch (the prior report mentions that it is not amenable to intervention). At that time left-ventricular gram showed normal left ventricular ejection fraction at 60%. 2. Paroxysmal atrial fibrillation, status post ablation in 2017 at the [facility]. He also had prior cardioversion. He is [...] episodes of atrial fibrillation. He has a [employer] machine that he uses to transmit ECG. [...] 2 seconds. Neurol (more content not included)... [facility] 12-29-2023 Note Patient here for 6 m [...] All other systems reviewed and are negative. [facility] 12-29-2023 Note HTN management with goal b/p < 130/80 Monitor b/p at home Routine monitoring- will repeat Echocardiogram in 6 months with f/u with Dr Erazo. D/W pt that he is to call 911 for sharp, tearing chest pain or back pain, call office for b/p consistently > 130/80 and he voiced understanding [facility] 08-16-2023 Hospital Discharge instructions Patient Education 08/16/2023 [...] include: ?8 oz (237 mL) of milk, jksnxaf-ywjkwtdoswch-ywfey milk, and calcium-fortifiedfruit juice. Calcium-fortified means that [...] ?Spinach (cooked), rhubarb, beets, sweet potatoes, and Turkish chard. ?Peanuts. ?Potato chips, kazakh fries, and baked potatoes with skin on. ?Nuts and nut products. ?Chocolate. If you regularly take a diuretic medicine, make sure to eat at least 1 or 2 servings of fruits or vegetables that are high in potassium each day. These include: ?Avocado. ?Banana. ?[place], prune, carrot, or tomato juice. ?Baked potato. [...] magnesium, fish oil, or vitamin B6. Take icut-dbw-wywbzwa and prescription medicines only as told by [...] Casseroles. Pizza. Lasagna. Frozen meals. Potato chips. Maltese fries. The items listed above may not [...] provider. Document Revised: 06/13/2022 Document Reviewed: 06/13/2022 [employer] Patient Education 2022 [employer]. Follow Up Care 08/08/2023 13:37:21 With:Teo NIELSON, Shelley Sidhu, URL, URO Address: When: Unknown Comments:PRN [facility] 01-04-2023 Note CARDIAC STRESS TEST [...] interpreted and reported myocardial perfusion scan findings. [facility] 04-01-2022 Hospital Discharge instructions Patient Education [...] quitting, ask your health care provider. Take ctna-ini-gnqwoas and prescription medicines only as told by [...] 10/07/2014 Document Revised: 05/27/2019 Document Reviewed: 05/03/2019 [employer] Patient Education 2020 [employer]. 04/01/2022 13:38:40 Hyperglycemia Hyperglycemia Hyperglycemia occurs when [...] or polycystic ovarian syndrome (PCOS). Being of Prydein[place]-, -P[place]dein[place], /, or / descent. What are the [...] these instructions at home: General instructions Take muzn-gsw-mertdyj and prescription medicines only as told by [...] 03/28/2002 Document Revised: 06/19/2017 Document Reviewed: 06/19/2017 [employer] Patient Education 2020 [employer] 04/01/2022 13:38:33 Atrial Fibrillation Atrial Fibrillation Atrial [...] may be diagnosed with: Electrocardiogram (ECG). Ambulatory serging machine operator automatic. This device records your heartbeats for 24 [...] 10/02/2006 Document Revised: 11/22/2018 Document Reviewed: 11/23/2018 [employer] Patient Education 2020 [employer]. 04/01/2022 13:38:29 Pinched Nerve Pinched Nerve A [...] work. Follow these instructions at home: Take bcnz-ysm-hpouest and prescription medicines only as told by [...] leg, or the back or neck. Take aiib-jam-icpucrp and prescription medicines only as told by [...] 09/22/2003 Document Revised: 10/19/2018 Document Reviewed: 10/16/2018 [employer] Patient Education 2020 [employer]. [facility] [place] 02-03-2022 Note HNO ID: [id number] Author: Jannet Gonzalez MD Service: ? Author Type: Physician Type: Progress Notes Filed: 02/03/2022 9:58 AM Note Text: [facility] Emiliano Plascencia Department of Cardiovascular Medicine SECTION OF CARDIAC PACING and ELECTROPHYSIOLOGY OUTPATIENT VISIT DATE February 03, 2022 OUTPATIENT VISIT TYPE CONSULTATION PRIMARY CARE PHYSICIAN: Mark Browning DO [address] [place] [address] CHIEF COMPLAINT: PAF HISTORY OF PRESENT ILLNESS [...] he is in SR. He denies syncope. [id number] 3 (HTN, CAD, DM) tolerating Xarelto PAST MEDICAL HISTORY Diagnosis Date - Atrial fibrillation (HCC) 2013 - CAD (coronary artery disease) 09/02/2014 - Diabetes mellitus (HCC) - Dyslipidemia - Hypertension - Metabolic syndrome PAST SURGICAL HISTORY Procedure Laterality Date - AFIB PVI W/COMPL EP STUDY 07/10/2017 - CARDIAC CATH 09/02/2014 PUBLIC HEALTH 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 of proximal RCA. 70% ostial D1. Preserved [...] patient General: L (more content not included)... [facility] Evaluation + Plan note No data available for this section [facility] [place] Evaluation + Plan note Future Appointments Appointment Date:01/03/2024 08:00:00 AM Scheduled Provider: [facility] Type: Medicare Wellness Welcome Appointment Date:01/03/2024 08:40:00 AM Scheduled Provider:Ursula Love MD Location:[facility] Appointment Type: Open Diagnostic Tests PendingPSA Free & Total 07/03/23Microalbumin Level Urine 07/03/23U Protein/Creat Ratio 07/03/23 [facility] Evaluation + Plan note Future Appointments Appointment Date:01/03/2024 08:00:00 AM Scheduled Provider: Location:[facility] Appointment Type:FM Medicare Wellness Welcome Appointment Date:01/03/2024 08:40:00 AM Scheduled Provider:Ursula Love MD Location:[facility] Appointment Type:[facility] Evaluation + Plan note Future Appointments Appointment Date:08/29/2023 02:20:00 PM Scheduled Provider:Jose Luis THOMAS MD Location:[facility] Appointment Type: Appointment Date:01/03/2024 08:00:00 AM Scheduled Provider: Location:[facility] Appointment Type:FM Medicare Wellness Welcome Appointment Date:01/03/2024 08:40:00 AM Scheduled Provider:Ursula Love MD [facility] Appointment Type: Open Diagnostic Tests PendingUrine Culture 08/04/23 Future Scheduled TestsCT Abdomen/Pelvis w/o Contrast 08/02/23 [facility] Evaluation + Plan note Future Appointments Appointment Date:08/29/2023 02:20:00 PM Scheduled Provider:Jose Luis [facility]AS [facility] Type: Appointment Date:01/03/2024 08:00:00 AM Scheduled Provider: [facility] Appoint[facility] Type:FM Medicare Wellness [facility] Appointment Date:01/03/2024 08:40:00 AM Scheduled Provider:Ursula Love MD Location:[facility] Appointment Type:[facility] Evaluation + Plan note Future Appointments Appointment Date:08/29/2023 02:20:00 PM Scheduled Provider:Jose Luis THOMAS MD [facility] App[facility] Type: Appointment Date:01/03/2024 08:00:00 AM Scheduled Provider: Location:[facility] Appointment Type:FM Medicare Wellness Welcome Appointment Date:01/03/2024 08:40:00 AM Scheduled Provider:Ursula Love MD Location:[facility] Appointment Type: Open Future Scheduled TestsUS Aorta 08/08/24 [facility] Evaluation + Plan note Future Appointments Appointment Date:01/03/2024 08:00:00 AM Scheduled Provider: Location:[facility] Appointment Type:FM Medicare Wellness Welcome Appointment Date:01/03/2024 08:40:00 AM Scheduled Provider:Ursula Love MD Location:[facility] Appointment Type: Open Future Scheduled TestsUS Aorta 08/08/24 [facility] Evaluation + Plan note Future Appointments Appointment Date:12/17/2024 08:00:00 AM Scheduled Provider: Location:[facility] Appointment Type:FM Medicare Wellness Subsequent Diagnostic Tests PendingHCV Antibody RFX to Quant PCR 12/18/23 Future Scheduled TestsCT Chest, Low Dose Screening 12/18/23US Aorta 08/08/24 [facility] Evaluation + Plan note Future Appointments Appointment Date:03/25/2024 10:45:00 AM Scheduled Provider:Ursula Love MD Location:[facility] Appointment Type: Open Appointment Date:12/17/2024 08:00:00 AM Scheduled Provider: Location:[facility] Appointment Type:FM Medicare Wellness Subsequent Future Scheduled TestsUS Aorta 08/08/24 [facility] Evaluation + Plan note Future Appointments Appointment Date:01/25/2024 09:00:00 AM Scheduled Provider:Ana Kumar Location:.ONCOLOGY Appointment Type:ONC Office Visit [facility] () Appointment Date:03/25/2024 10:45:00 AM Scheduled Provider:Ursula Love MD Location:[facility] Appointment Type: Open Appointment Date:12/17/2024 08:00:00 AM Scheduled Provider: Location:[facility] Appointment Type:FM Medicare Wellness Subsequent Diagnostic Tests PendingImmunofixation Serum 01/16/24Free K+L Lt Chains,Qn,S 01/16/24Protein Electrophoresis 01/16/24 Future Scheduled TestsUS Aorta 08/08/24 [facility] Evaluation + Plan note Future Appointments Appointment Date:02/01/2024 02:30:00 PM Scheduled Provider: Location:[facility] Appointment Type:ONC Injection (FT) Appointment Date:02/08/2024 02:30:00 PM Scheduled Provider: Location:.ONCOLOGY Appointment Type:ONC Injection (FT) Appointment Date:02/15/2024 02:00:00 PM Scheduled Provider: Location:.ONCOLOGY Appointment Type:ONC Injection (FT) Appointment Date:03/14/2024 10:15:00 AM Scheduled Provider:Ana Kumar Location:.ONCOLOGY Appointment Type:ONC Office Visit 30 (FT) Appointment Date:03/14/2024 10:45:00 AM Scheduled Provider: Location:.ONCOLOGY Appointment Type:ONC Injection (FT) Appointment Date:03/25/2024 10:45:00 AM Scheduled Provider:Ursula Love MD Location:[facility] Appointment Type: Open Appointment Date:12/17/2024 08:00:00 AM Scheduled Provider: Location:[facility] Appointment Type: Medicare Wellness Subsequent Future Scheduled TestsCBC w/ Auto Diff 03/21/24Comprehensive Metabolic Panel 03/21/24Ferritin 03/21/24Iron Level 03/21/24Iron Percent Saturation 03/21/24Transferrin 03/21/24US Aorta 08/08/24 [facility] Evaluation + Plan note Future Appointments Appointment Date:02/08/2024 01:30:00 PM Scheduled Provider: Location:.ONCOLOGY Appointment Type:ONC Injectafer (FT) Appointment Date:02/08/2024 02:30:00 PM Scheduled Provider: Location:.ONCOLOGY Appointment Type:ONC Injection (FT) Appointment Date:02/15/2024 01:00:00 PM Scheduled Provider: Location:.ONCOLOGY Appointment Type:ONC Injectafer (FT) Appointment Date:02/15/2024 02:00:00 PM Scheduled Provider: Location:.ONCOLOGY Appointment Type:ONC Injection (FT) Appointment Date:03/14/2024 10:15:00 AM Scheduled Provider:Ana Kumra Location:.ONCOLOGY Appointment Type:ONC Office Visit 30 (FT) Appointment Date:03/14/2024 10:45:00 AM Scheduled Provider: Location:.ONCOLOGY Appointment Type:ONC Injection (FT) Appointment Date:03/25/2024 10:45:00 AM Scheduled Provider:Ursula Love MD Location:[facility] Appointment Type:FM Open Appointment Date:04/11/2024 02:00:00 [...] Appointment Date:12/17/2024 08:00:00 AM Scheduled Provider: Location:[facility] Appointment Type: Medicare Wellness Subsequent Appointment [...] 03/21/24Iron Percent Saturation 03/21/24Transferrin 03/21/24US Aorta 08/08/24 [facility] Evaluation + Plan note Future [...] 10:45:00 AM Scheduled Provider:Ursula Love MD Location:[facility] Appointment Type:FM Open Appointment Date:04/11/2024 02:00:00 [...] Appointment Date:12/17/2024 08:00:00 AM Scheduled Provider: Location:[facility] Appointment Type: Medicare Wellness Subsequent Appointment [...] 03/21/24Iron Percent Saturation 03/21/24Transferrin 03/21/24US Aorta 08/08/24 [facility] Evaluation + Plan note Future Appointments Appointment Date:03/14/2024 10:15:00 AM Scheduled Provider:Ana Kumar Location:.ONCOLOGY Appointment Type:ONC Office Visit 30 (FT) Appointment Date:03/14/2024 10:45:00 AM Scheduled Provider: Location:.ONCOLOGY Appointment Type:ONC Injection (FT) Appointment Date:03/25/2024 10:45:00 AM Scheduled Provider:Ursula Love MD Location:[facility] Appointment Type: Open Appointment Date:04/11/2024 02:00:00 [...] Appointment Date:12/17/2024 08:00:00 AM Scheduled Provider: Location:[facility] Appointment Type: Medicare Wellness Subsequent Appointment [...] 03/11/24Iron Percent Saturation 03/11/24Transferrin 03/11/24US Aorta 08/08/24 [facility] Evaluation + Plan note Future Appointments Appointment Date:03/14/2024 10:15:00 AM Scheduled Provider:Ana Kumar Location:.ONCOLOGY Appointment Type:ONC Office Visit 30 (FT) Appointment Date:03/14/2024 10:45:00 AM Scheduled Provider: Location:.ONCOLOGY Appointment Type:ONC Injection (FT) Appointment Date:03/26/2024 10:45:00 AM Scheduled Provider:Ursula Love MD Location:[facility] Appointment Type: Open Appointment Date:04/11/2024 02:00:00 [...] Appointment Date:12/17/2024 08:00:00 AM Scheduled Provider: Location:[facility] Appointment Type: Medicare Wellness Subsequent Appointment Date:12/19/2024 02:15:00 PM Scheduled Provider: Location:.ONCOLOGY Appointment Type:ONC Injection (FT) Appointment Date:01/16/2025 02:05:00 PM Scheduled Provider: Location:FT.ONCOLOGY Appointment Type:ONC Injection (FT) Appointment Date:02/13/2025 02:15:00 PM Scheduled Provider: Location:.ONCOLOGY Appointment Type:ONC Injection (FT) Appointment Date:03/13/2025 02:15:00 PM Scheduled Provider: Location:.ONCOLOGY Appointment Type:ONC Injection (FT) Future Scheduled TestsUS Aorta 08/08/24 [facility] Evaluation + Plan note Future Appointments Appointment Date:03/26/2024 10:45:00 AM Scheduled Provider:Ursula Love MD Location:[facility] Appointment Type: Open Appointment Date:04/11/2024 02:00:00 [...] Appointment Date:12/17/2024 08:00:00 AM Scheduled Provider: Location:[facility] Appointment Type:FM Medicare Wellness Subsequent Appointment [...] Percent Saturation 09/07/24Transferrin 06/07/24Transferrin 09/07/24US Aorta 08/08/24 [facility] Evaluation + Plan note Future [...] (FT) Appointment Date:12/17/2024 08:00:00 AM Scheduled Provider: Location:[facility] [place] Appointment Type:FM Medicare Wellness Subsequent Appointment Date:12/19/2024 [...] Percent Saturation 09/07/24Transferrin 06/07/24Transferrin 09/07/24US Aorta 08/08/24 [facility] Evaluation + Plan note Future [...] (FT) Appointment Date:12/17/2024 08:00:00 AM Scheduled Provider: Location:[facility] [place] Appointment Type: Medicare Wellness Subsequent [...] Percent Saturation 09/07/24Transferrin 06/07/24Transferrin 09/07/24US Aorta 08/08/24 [facility] Evaluation + Plan note Future Appointments Appointment Date:07/04/2024 02:00:00 PM [facility]uled [facility] (FT) Appointment Date:08/01/2024 02:00:00 PM Scheduled Provider: Location:.ONCOLOGY Appointment Type:ONC Injection (FT) Appointment Date:08/29/2024 02:00:00 PM [facility]uled [facility]: [facility] Type:ONC Injection (FT) Appointment Date:09/09/2024 11:00:00 AM Scheduled Provider:Ana Kumar Location:.ONCOLOGY Appointment Type:ONC Office Visit 30 (FT) Appointment Date:09/26/2024 02:00:00 PM Scheduled Provider: Location:.ONCOLOGY Appointment Type:ONC Injection (FT) Appointment Date:10/24/2024 02:15:00 PM Scheduled Provider: Location:.ONCOLOGY Appointment Type:ONC Injection (FT) Appointment Date:11/21/2024 02:15:00 PM Scheduled Provider: Location:.ONCOLOGY Appointment Type:ONC Injection (FT) Appointment Date:12/17/2024 08:00:00 AM Scheduled Provider: Location:[facility] [place] Appointment Type:FM Medicare Wellness Subsequent [...] Percent Saturation 09/07/24Transferrin 06/07/24Transferrin 09/07/24US Aorta 08/08/24 [facility] Evaluation + Plan note Future Appointments Appointment Date:08/01/2024 02:00:00 PM Scheduled Provider: Location:.[facility]COLOGY Appointment Type:ONC Injection (FT) Appointment Date:08/29/2024 02:00:00 PM [facility]uled [facility] Type:[facility]C Injection (FT) Appointment Date:09/09/2024 11:00:00 AM Scheduled Provider:Ana Kumar [facility] Type:ONC Office Visit 30 (FT) Appointment Date:09/26/2024 02:00:00 PM Scheduled [facility]: [facility] Type:ONC Injection (FT) Appointment Date:10/24/2024 02:15:00 PM Scheduled [facility]: [facility] Type:ONC Injection (FT) Appointment Date:11/21/2024 02:15:00 PM Scheduled Provider: Location:.ONCOLOGY Appointment Type:ONC Injection (FT) Appointment Date:12/17/2024 08:00:00 AM Scheduled Provider: Location:[facility] [place] Appointment Type:FM Medicare Wellness Subsequent [...] Percent Saturation 09/07/24Transferrin 06/07/24Transferrin 09/07/24US Aorta 08/08/24 [facility] Evaluation + Plan note Future [...] (FT) Appointment Date:12/17/2024 08:00:00 AM Scheduled Provider: Location:[facility] [place] Appointment Type: Medicare Wellness Subsequent Appointment Date:12/19/2024 02:15:00 PM Scheduled Provider: Location:.ONCOLOGY Appointment Type:ONC Injection (FT) Appointment Date:01/16/2025 02:05:00 PM Scheduled Provider: Location:.ONCOLOGY Appointment Type:ONC Injection (FT) Appointment Date:01/30/2025 09:15:00 AM Scheduled Provider:Ursula Love MD Location:[facility] Appointment Type:FM Open Appointment Date:02/13/2025 02:15:00 PM Scheduled [facility]: [facility] Type:ONC Injection (FT) Appointment Date:03/13/2025 02:15:00 PM Scheduled Provider: Location:.ONCOLOGY Appointment Type:ONC Injection (FT) Future Scheduled TestsCBC w/ Auto Diff 06/07/24CBC w/ Auto Diff 09/07/24Comprehensive Metabolic Panel 06/07/24Comprehensive Metabolic Panel 09/07/24Ferritin 06/07/24Ferritin 09/07/24Iron Level 06/07/24Iron Level 09/07/24Iron Percent Saturation 06/07/24Iron Percent Saturation 09/07/24Transferrin 06/07/24Transferrin 09/07/24US Aorta 08/08/24 [facility] Evaluation + Plan note Future Appointments Appointment Date:09/09/2024 11:00:00 AM Scheduled Provider:Ana Kumar [facility] Type:ONC Office Visit 30 (FT) Appointment Date:09/26/2024 02:00:00 PM Scheduled Provider: Location:.ONCOLOGY Appointment Type:ONC Injection (FT) Appointment Date:10/24/2024 02:15:00 PM Scheduled Provider: Location:.ONCOLOGY Appointment Type:ONC Injection (FT) Appointment Date:11/21/2024 02:15:00 PM Scheduled Provider: Location:.[facility]COLOGY Appointment Type:ONC Injection (FT) Appointment Date:12/17/2024 08:00:00 AM Scheduled Provider: Location:[facility] Appointment Type: Medicare Wellness Subsequent Appointment Date:12/19/2024 02:15:00 PM Scheduled Provider: Location:.ONCOLOGY Appointment Type:ONC Injection (FT) Appointment Date:01/16/2025 02:05:00 PM Scheduled Provider: Location:.ONCOLOGY Appointment Type:ONC Injection (FT) Appointment Date:01/30/2025 09:15:00 AM Scheduled Provider:Ursula Love MD Location:[facility] Appointment Type: Open Appointment Date:02/13/2025 02:15:00 PM Scheduled Provider: Location:.ONCOLOGY Appointment Type:ONC Injection (FT) Appointment Date:03/13/2025 02:15:00 PM Scheduled Provider: Location:.ONCOLOGY Appointment Type:ONC Injection (FT) Future Scheduled TestsCBC w/ Auto Diff 06/07/24CBC w/ Auto Diff 09/07/24Comprehensive Metabolic Panel 06/07/24Comprehensive Metabolic Panel 09/07/24Ferritin 06/07/24Ferritin 09/07/24Iron Level 06/07/24Iron Level 09/07/24Iron Percent Saturation 06/07/24Iron Percent Saturation 09/07/24Transferrin 06/07/24Transferrin 09/07/24US Aorta 08/08/24 [facility] Evaluation + Plan note Future Appointments Appointment Date:09/09/2024 11:00:00 AM Scheduled Provider:Ana Kumar Location:.ONCOLOGY Appointment Type:ONC Office Visit 30 (FT) Appointment Date:09/26/2024 02:00:00 PM Scheduled Provider: Location:.ONCOLOGY Appointment Type:ONC Injection (FT) Appointment Date:10/24/2024 02:15:00 PM Scheduled Provider: Location:.ONCOLOGY Appointment Type:ONC Injection (FT) Appointment Date:11/21/2024 02:15:00 PM Scheduled Provider: Location:.ONCOLOGY Appointment Type:ONC Injection (FT) Appointment Date:12/17/2024 08:00:00 AM Scheduled Provider: Location:[facility] Appointment Type: Medicare Wellness Subsequent Appointment Date:12/19/2024 02:15:00 PM Scheduled Provider: Location:.ONCOLOGY Appointment Type:ONC Injection (FT) Appointment Date:01/16/2025 02:05:00 PM Scheduled Provider: Location:.ONCOLOGY Appointment Type:ONC Injection (FT) Appointment Date:01/30/2025 09:15:00 AM Scheduled Provider:[facility]: Open Appointment Date:02/13/2025 02:15:00 PM Scheduled Provider: Location:.ONCOLOGY Appointment Type:ONC Injection (FT) Appointment Date:03/13/2025 02:15:00 PM Scheduled Provider: Location:.ONCOLOGY Appointment Type:ONC Injection (FT) Future Scheduled TestsCBC w/ Auto Diff 06/07/24Comprehensive Metabolic Panel 06/07/24Ferritin 06/07/24Iron Level 06/07/24Iron Percent Saturation 06/07/24Transferrin 06/07/24US Aorta 08/08/24 [facility] Evaluation + Plan note Future Appointments Appointment Date:09/26/2024 02:00:00 PM Scheduled Provider: Location:.ONCOLOGY Appointment Type:ONC Injection (FT) Appointment Date:10/24/2024 02:15:00 PM Scheduled Provider: Location:.ONCOLOGY Appointment Type:ONC Injection (FT) Appointment Date:11/21/2024 02:15:00 PM Scheduled Provider: Location:.ONCOLOGY Appointment Type:ONC Injection (FT) Appointment Date:12/17/2024 08:00:00 AM Scheduled Provider: Location:[facility] Appointment Type: Medicare Wellness Subsequent Appointment Date:12/19/2024 02:15:00 PM Scheduled Provider: Location:.ONCOLOGY Appointment Type:ONC Injection (FT) Appointment Date:01/16/2025 02:05:00 PM Scheduled Provider: Location:.ONCOLOGY Appointment Type:ONC Injection (FT) Appointment Date:01/30/2025 09:15:00 AM Scheduled Provider:Ursula Love MD Location:[facility] Appointment Type:FM Open Appointment Date:02/13/2025 02:00:00 PM Scheduled Provider:Ana Kumar Location:.ONCOLOGY Appointment Type:ONC Office Visit 20 (FT) Appointment Date:02/13/2025 02:15:00 PM Scheduled Provider: Location:.ONCOLOGY Appointment Type:ONC Injection (FT) Appointment Date:03/13/2025 02:15:00 PM Scheduled Provider: Location:.ONCOLOGY Appointment Type:ONC Injection (FT) Future Scheduled TestsCBC w/ Auto Diff 06/07/24CBC w/ Auto Diff 03/09/25Comprehensive Metabolic Panel 06/07/24Comprehensive Metabolic Panel 03/09/25Ferritin 06/07/24Ferritin 03/09/25Iron Level 06/07/24Iron Level 03/09/25Iron Percent Saturation 06/07/24Iron Percent Saturation 03/09/25Transferrin 06/07/24Transferrin 03/09/25US Aorta 08/08/24 [facility] Evaluation + Plan note Future Appointments Appointment Date:10/23/2024 02:30:00 PM Scheduled Provider: Location:.ONCOLOGY Appointment Type:ONC Injection (FT) Appointment Date:11/21/2024 02:15:00 PM Scheduled Provider: Location:.ONCOLOGY Appointment Type:ONC Injection (FT) Appointment Date:12/17/2024 08:00:00 AM Scheduled Provider: Location:[facility] Appointment Type: Medicare Wellness Subsequent Appointment Date:12/19/2024 02:15:00 PM Scheduled Provider: Location:.ONCOLOGY Appointment Type:ONC Injection (FT) Appointment Date:01/16/2025 02:05:00 PM Scheduled Provider: Location:.ONCOLOGY Appointment Type:ONC Injection (FT) Appointment Date:01/30/2025 09:15:00 AM Scheduled Provider:Ursula Love MD Location:[facility] Appointment Type:FM Open Appointment Date:02/13/2025 02:00:00 PM Scheduled Provider:Ana Kumar Location:.ONCOLOGY Appointment Type:ONC Office Visit 20 (FT) Appointment Date:02/13/2025 02:15:00 PM Scheduled Provider: Location:.ONCOLOGY Appointment Type:ONC Injection (FT) Appointment Date:03/13/2025 02:15:00 PM Scheduled Provider: Location:.ONCOLOGY Appointment Type:ONC Injection (FT) Future Scheduled TestsCBC w/ Auto Diff 06/07/24CBC w/ Auto Diff 03/09/25Comprehensive Metabolic Panel 06/07/24Comprehensive Metabolic Panel 03/09/25Ferritin 06/07/24Ferritin 03/09/25Iron Level 06/07/24Iron Level 03/09/25Iron Percent Saturation 06/07/24Iron Percent Saturation 03/09/25Transferrin 06/07/24Transferrin 03/09/25US Aorta 08/08/24 [facility] Evaluation note Diagnosis Persistent atrial fibrillation (HCC)- Primary Atrial [facility] Atrial fibrillation, unspecified type (HCC)- [facility] No data available for this section [facility] Medicine [place] Progress note No data available for this section [facility] Reason for referral (narrative)* Outpatient Procedure (Routine) - Authorized Specialty Diagnoses / Procedures Referred By Contac t Referred To Contact [facility] Diagnoses Persistent atrial fibrillation (HCC) Procedures ECG COMPLETE ECG ROUTINE ECG W/LEAST 12 LDS W/I&R Jannet Gonzalez MD [address] [place] [address] [address] Referral ID Status Reason Start Date Expiration Date Visits Requested Visits Authorized [id number] Authorized Auto-Generat ed Referral 02/03/2022 02/03/2023 1 1 [facility] Outpatient Procedure (Routine) - Authorized Specialty Diagnoses / Procedures Referred By Contac t Referred To Contact [facility] Diagnoses Atrial fibrillation, unspecified type (HCC) Procedures ECG COMPLETE ECG ROUTINE ECG W/LEAST 12 LDS W/I&R Jannet Gonzalez MD [address] [place] [address] [address] Referral ID Status Reason Start Date Expiration Date Visits Requested Visits Authorized [id number] Authorized Auto-Generat ed Referral 06/27/2024 06/27/2025 1 1 [facility] Summary Purpose Family History No [...] FoundDocuments on File Type Date Recorded 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 Advance Directive(s) 07/10/2017 5:38 AM [...] section and content) DATE CREATED AUTHOR 10/08/2020 [facility] DATE CREATED AUTHOR AUTHOR'S ORGANIZ ATION 02/05/2022 [facility] DATE CREATED AUTHOR AUTHOR'S ORGANIZ ATION 01/17/2023 [facility] DATE CREATED AUTHOR AUTHOR'S ORGANIZ ATION 03/12/2024 [facility] DATE CREATED AUTHOR AUTHOR'S ORGANIZ ATION 03/13/2024 [facility] DATE CREATED AUTHOR AUTHOR'S ORGANIZ ATION 08/14/2024 [facility] DATE CREATED AUTHOR AUTHOR'S ORGANIZ ATION 09/07/2024 [facility] DATE CREATED AUTHOR AUTHOR'S ORGANIZ ATION 09/11/2024 [facility] DATE CREATED AUTHOR AUTHOR'S ORGANIZ ATION 09/16/2024 [facility] DATE CREATED AUTHOR AUTHOR'S ORGANIZ ATION 09/29/2024 [facility] Source Comments (unrecognize d section and content) In the event this informatio n is protected by the Federal Confidentiality of Alcohol and Drug Abuse Patient Records regulations: The Federal rules restrict any use of the information to criminally investigate or prosecute any alcohol or drug abuse patient.[facility] the event this information is protected by the Federal Confidentiality of Alcohol and Drug Abuse Patient Records regulations: The Federal rules restrict any use of the information to criminally investigate or prosecute any alcohol or drug abuse patient.[facility] Care Teams (unrecognized sec tion and content) [employer]ractor Dist[employer] Relationship Specialty Start Date End Date Mark Browning PCP - General Family Practice 08/11/14 Jannet Gonzalez MD [address] [place] [address] Primary Staff Physician Cardiology 02/03/22 [employer] Relationship Specialty Start Date End Date Mark [...] BE BASED ON THE PRIMARY CLINICAL RECORDS. [employer] provides no warranty or guarantee of the accuracy or completeness of information in this document.
[2024-10-01 11:48] LABS: Basophils Absolute Auto 0.1 10^3/uL (0.0-0.1); Basophils Percent Auto 1.1 % (0.2-2.0); Eosinophils Absolute Auto 0.1 10^3/uL (0.0-0.7); Eosinophils Percent Auto 1.9 % (0.9-7.0); Hematocrit 37.7 % (42.0-54.0); Hemoglobin 13.2 g/dL (14.0-18.0); Immature Granulocytes Abs Auto 0.07 10^3/uL (0.00-0.03); Immature Granulocytes Pct Auto 1.5 % (0.0-0.5); Lymphocytes Absolute Auto 0.8 10^3/uL (1.2-3.8); Lymphocytes Percent Auto 16.6 % (20.5-60.0); Mean Corpuscular Hemoglobin 32.2 pg (25.9-34.0); Monocytes Absolute Auto 0.5 10^3/uL (0.3-0.8); Monocytes Percent Auto 9.8 % (1.7-12.0); Neutrophils Absolute Auto 3.3 10^3/uL (1.4-6.5); Neutrophils Percent Auto 69.1 % (43.0-75.0); Platelet Count 103 10^3/uL (150-450); Red Cell Distribution Width 14.4 % (11.0-15.0); White Blood Count 4.7 10^3/uL (4.0-11.0)
[2024-10-01 12:15] LABS: Anion Gap 11.8; Calcium 8.9 mg/dL (8.5-10.1); Carbon Dioxide 29.5 mmol/L (21.0-32.0); Chloride 103 mmol/L (98-107); Estimated GFR (African America >60 (>=60 mL/min/1.73m^2); Estimated GFR (Non-African Ame >60 (>=60 mL/min/1.73m^2); Glucose 129 mg/dL (74-106); Potassium 4.3 mmol/L (3.5-5.1); Sodium 140 mmol/L (136-145)
== END 2024-10-01 11:11 | disposition home or self-care (01) ==
LOC: LAB 11:21
PROVIDERS: PCP Family Medicine; Visit Provider Internal Medicine Cardiovascular Disease
DX: I48.0 Paroxysmal atrial fibrillation (principal)
CPT/HCPCS: 36415; 80048; 85025

== ENCOUNTER 2024-11-07 07:54 | Outpatient (OUT) | payer MEDICARE, SELFPAY ==
--- OUTSIDE RECORDS SUMMARY | 2024-11-07 07:59 | XMS_ITS | CCD ---
Author Organization [facility] Team Providers Care Personal Lines Sales Executive Name Role Phone Mark Browning Primary Care Provider Jannet Gonzalez MD Unavailable Ursula Love Primary Care Physician URSULA LOVE Admitting Unavailable URSULA LOVE Attending Unavailable URSULA LOVE Primary Care Unavailable URSULA LOVE Consulting Unavailable MOUKAHUSSEIN, DR MOSCOSO Admitting Unavailable MOUKARBDARRIAN, DR MOSCOSO Attending Unavailable URSULA LOVE Primary Care Unavailable KOOTENAI, DR JANNET Parry Consulting Unavailable MOUKARBEL, DR MOSCOSO Consulting Unavailable URSULA LOVE Consulting Unavailable Ursula Love Primary Care Physician Mark Browning DO Primary Care Provider Jannet Gonzalez MD Unavailable Doug NIELSON, Leonora Raphael Attending Unavailable Ursula Love Attending Unavailable Ursula Love Attending Unavailable Ursula Love Attending Unavailable Ursula Love Attending Unavailable Ana Spencer Attending Unavailable SteviebosAna jennings Attending Unavailable SteviebosAna jennings Attending Unavailable DembosAna jennings Admitting Unavailable DemboskeAna Attending Unavailable Ana Spencer Admitting Unavailable DemAna brunson Attending Unavailable DemAna brunson Attending Unavailable DemAna brunson Attending Unavailable Ana Spencer Attending Unavailable Ana Spencer Referring Unavailable Ana Spencer Attending Unavailable Ursula Love Attending Unavailable Ursula Love Attending Unavailable Ursula Love Attending Unavailable Ursula Love Attending Unavailable Ursula Love Attending Unavailable Ursula Love Attending Unavailable Ursula Love Attending Unavailable Tj, Ana Rivas Attending Unavailable Ursula Love Referring Unavailable Ursula Love Admitting Unavailable Ursula Love Attending Unavailable Dembosdick, Ana Rivas Admitting Unavailable Demboske, Ana Rivas Attending Unavailable Ursula Love Attending Unavailable Ursula Love Admitting Unavailable Adamowicz, Bharath Admitting Unavailable Adamowicz, Bharath Attending Unavailable Tj, Ana Rivas Attending Unavailable Ursula Love Referring Unavailable Demboske, Ana Rivas Attending Unavailable Demboske, Ana Rivas Attending Unavailable Demboske, Ana Rivas Attending Unavailable Ursula Love Admitting Unavailable Ursula Love Attending Unavailable Ursula Love Attending Unavailable GOPAL, PARISA Attending Unavailable MOUKARBEL, BLANKA Attending Unavailable JAZMYN, JOHN PAUL Attending Unavailable JAZMYN, JOHN PAUL Attending Unavailable Demboske, Ana Rivas Attending Unavailable Demboske, Ana Rivas Attending Unavailable Steviebosdick, Ana Rivas Admitting Unavailable MD Ursula Love Attending Unavailable Dembosdick, Ana Rivas Attending Unavailable Allergies Allergy Classification Reported Allergen(s) Allergy Type Date of Onset Reaction(s) Facility (20 sources) Penicillins; 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: [penicillins] Propensity to adverse reactions to drug 4 Hives, Weal (disorder) [facility] (1 source) Penicillins Drug allergy (disorder) 4 [facility] (1 source) Penicillins Propensity to adverse reactions to drug 4 [facility] (3 sources) No Known Medication Allergies; 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: [No Known Medication Allergies] Propensity to adverse reactions (disorder) [facility] (1 source) Penicillin; 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: [penicillins] Drug Allergy Weal (disorder) [facility] Medications Current Medications Medication Drug Class(es) Dates [...] MOUTH DAILY apixaban 5 mg oral tablet (19 sources) Factor Xa Inhibitor Start: 12-18-2023 take [...] day(s), # 90 tab(s), Refills(s) 0, Pharmacy: [facility]/pharmacy #[id number] Start Date: 04/01/22 Stop Date: 05/01/22 Status: Ordered Centrum Minis Men 50+ oral tablet (17 sources) Start: 12-28-2023 take 1 tablet by [...] beat (AFIB)). ezetimibe 10 mg oral tablet (10 sources) Dietary Cholesterol Absorption Inhibitor Start: 03-22-2024 [...] DAILY, # 90 tab(s), Refills(s) 1, Pharmacy: [facility]/pharmacy #[id number], 179, cm, 03/26/24 10:53:00 EDT, [...] Daily, # 30 tab(s), Refills(s) 0, Pharmacy: [facility]/pharmacy #[id number] Start Date: 04/01/22 Status: Ordered metFORMIN hydrochloride 500 mg oral tablet (20 sources) Biguanide Start: 5 metformin 500 mg Tab See Instructions, TAKE 2 TABLETS TWICE A DAY, # 360 tab(s), Refills(s) 1, Pharmacy: [facility], 179, cm, 09/09/24 11:22:00 EST, Height/Length Dosing, 79.8, kg, 09/09/24 11:22:00 EST, Weight Dosing Start Date: 10/17/24 Status: Ordered Start: 06-19-2024 metformin 500 mg Tab See Instructions, TAKE 2 TABLETS TWICE A DAY, # 360 tab(s), Refills(s) 1, Pharmacy: [facility], 179, cm, 03/26/24 10:53:00 EDT, Height/Length Dosing, 86, kg, 03/26/24 10:53:00 EDT, Weight Dosing Start Date: 06/19/24 Status: Ordered Start: 07-06-2023 metformin 500 mg Tab See Instructions, TAKE 2 TABLETS TWICE A DAY, # 360 tab(s), Refills(s) 1, Pharmacy: [facility], 178, cm, 12/18/23 13:19:00 EST, Height/Length Dosing, 89.1, kg, 12/18/23 13:19:00 EST, Weight Dosing Start Date: 12/19/23 Status: Ordered Start: 04-25-2023 take 2 tablets by mo uth twice daily metformin 500 mg Tab 1,000 mg = 2 tab(s), Oral, BID, TAKE TWO TABLETS BY MOUTH TWICE A DAY, # 360 tab(s), Refills(s) 1, Pharmacy: [facility], 178, cm, 12/19/22 9:57:00 EST, Height/Length Dosing, 90.4, kg, 12/19/22 9:57:00 EST, Weight Dosing Start Date: 04/25/23 Status: Ordered Start: 04-01-2022 End: 09-28-2022 take 2 tablets by mouth twice daily metformin 500 mg ER Tab 1,000 mg = 2 tab(s), Oral, BID, X 90 day(s), # 360 tab(s), Refills(s) 1, Pharmacy: [facility] Start Date: 04/01/22 Stop [...] DAILY, # 90 cap(s), Refills(s) 1, Pharmacy: [facility], 179, cm, 03/26/24 10:53:00 EDT, Height/Length Dosing, 86, kg, 03/26/24 10:53:00 EDT, Weight Dosing Start Date: 05/06/24 Status: Ordered Start: 11-20-2023 take 1 capsule by mo [facility] once daily omeprazole 20 mg Cap-DR 20 mg = 1 cap(s), Oral, Daily, # 90 cap(s), Refills(s) 1, Pharmacy: [facility], 178, cm, 08/29/23 14:28:00 EST, Height/Length Dosing, 90.8, kg, 08/29/23 14:28:00 EST, Weight Dosing Start Date: 11/20/23 Status: Ordered Start: 07-03-2023 take 1 capsule by [facility] once daily omeprazole 20 mg Cap-DR 20 mg = 1 cap(s), Oral, Daily, # 90 cap(s), Refills(s) 1, Pharmacy: [facility], 178, cm, 07/03/23 7:24:00 EDT, Height/Length Dosing, 90, kg, 07/03/23 7:24:00 EDT, Weight Dosing Start Date: 07/03/23 Status: Ordered Start: 08-29-2014 End: 09-28-2022 take 1 capsule by mouth once daily omeprazole 20 mg Cap-DR 20 mg = 1 cap(s), Oral, Daily, X 90 day(s), # 90 cap(s), Refills(s) 1, Pharmacy: [facility] Start Date: 04/01/22 Stop Date: 09/28/22 Status: Ordered Comment on above: Take 1 capsule by [facility] once daily. ProFe 180 mg oral capsule (8 sources) Start: 12-25-2023 take 1 capsule by mouth once daily ProFe 180 mg oral capsule 180 mg = 1 cap(s), Oral, Daily, # 100 cap(s), Refills(s) 0, Pharmacy: [facility]/pharmacy #[id number], 178, cm, 12/18/23 13:19:00 EST, [...] Daily, # 10 cap(s), Refills(s) 0, Pharmacy: [facility]/pharmacy #[id number], 178, cm, 07/19/23 11:20:00 EDT, [...] Coronary arteriosclerosis; 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: [Atherosclerotic heart disease of knik coronary artery without angina pectoris] Onset: 4 10-02-2014 Chronic Deficiency and other anemia (17 sources) Microcytic anemia 12-28-2023 Episodic Deficiency and [...] 3 Episodic Other and unspecified benign neoplasm (20 sources) Adenomatous polyp of rectum 10-04-2023 Episodic [...] unspecified] Onset: 4 Chronic Other gastrointestinal disorders (17 sources) Splenomegaly 12-28-2023 Episodic Other non-traumatic joint disorders (10 sources) Hip pain 03-26-2024 Episodic Other nutritional; [...] endocrine; and metabolic disorders (20 sources) Overweight 08-29-2023 Episodic Residual codes; unclassified [...] sources) Long-term current use of anticoagulant; 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: [halfway (current) use of 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] Onset: 11-28-2017 11-28-2017 [...] Results Test Name Value Interpretation Reference Range Facility Office Visiton 10-01-2024 Follow-up visit [id number] Marcelle Deutsch 1960 M Date Provider Department Center 10/01/2024 [facility] Family History Problem Relation Age of Onset Coronary artery disease Father Atrial fibrillation Father Heart attack Brother Family Status - Relation Status Age at Father Brother Level of Service:28877 NE OFFICE/OUTPATIENT ESTABLISHED MOD MDM 30 MIN Normal [facility] 09-27-20 [facility] Case Information Case Priority: None Programs: -- Referral Source: Auto Self Service Station Attendant Referral Reason: Disease management Case Type: Chronic Care Management Risk Score: -- Case Status: Active (December 28, 2023) Date Assigned: December 19, 2023 Assigned By: Christian Hernandez Date Enrolled: December 28, 2023 Assigned Primary Personnel: Christian Hernandez Assigned Secondary Personnel: -- Case Physician: Ursula Love MD Ongoing AAA (abdominal aortic aneurysm) Aortic aneurysm BMI 28.0-28.9,adult BPH (benign prostatic hyperplasia) 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 Highest education level: High school. 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 equipment: No., 09/02/2014 Substance Abuse - No Risk, 08/29/2014 Never., 07/31/2024 Tobacco - No Risk, 08/29/2014 Former smoker, quit more than 30 days ago Tobacco Use:. Household tobacco concerns: No., 09/09/2024 Family History Acute myocardial infarction: Brother. Heart failure: Mother. Screenings and Assessments 12/28/23 08:18:00 Result Name Value Comment [facility] Program Enrollment Verbally agreed to receive [facility] services CCM Written Consent Written consent in progress CCM Verbal Consent By Self 12/28/23 07:00:00 Result Name Value Comment [facility]IPPA Verified Type of Contact In person at home CM Preferred Spoken Language Vietnamese CM Preferred Written Language Vietnamese Preferred Communication Mode Verbal Ability to Read/Write Able to read, Able to write Preferred Salutation Mr. Preferred Method of Contact Cell Cell Phone [phone] Best Time to Visit or Contact 7-10 am Best Day to Visit or Contact No preference Appointment Reminders Patient portal, Other secured messaging Preferred Way to Send PHI Patient portal Preferred Mailing Address [address] [place] [address], [id number] Learning Style Pref Patient Verbal explanation Learning [...] Shares bed Support System Spouse/Significant other Primary Table Games Shift Manager of Home Medication Self Current DME [...] Physical He (more content not included)... Normal [facility] Prep for Procedureon 024 Prep for Procedure [id number] Marcelle Deutsch 1960 M Date Provider Department Center 09/11/2024 [facility] Family History Problem Relation Age of Onset Coronary artery disease Father Atrial fibrillation Father Heart attack Brother Family Status - Relation Status Age at Father Brother Normal [facility] Office Visiton 09-10-2024 Follow-up visit [id number] Marcelle Deutsch 1960 M Date Provider Department Center 09/10/2024 [facility] Family History Problem Relation Age of Onset Coronary artery disease Father Atrial fibrillation Father Heart attack Brother Family Status - Relation Status Age at Father Brother Level of Service:[id number] NE OFFICE/OUTPATIENT ESTABLISHED LOW MDM 20 MIN Reason for Visit and Comments: Follow-up [[id number]] - A Fib management Normal [facility] CBC w/ Auto Diffon 4 Basophils/100 WBC (Bld) 0.6 % Normal 0.0-2.0 [facility] Comment on above: Performed By: #### 2 [id number] #### [facility] [address] [place] [address] Basophils/Leukocytes Auto (Bld) [Pure # fraction] 0.0 E9/L Normal 0.0-0.2 [facility] Comment on above: Performed By: #### 2 [id number] #### [facility] [address] [place] [address] Eosinophils (Bld) [#/Vol] 0.1 E9/L Normal 0.0-0.5 [facility] Comment on above: Performed By: #### 2 [id number] #### [facility] [address] [place] [address] Eosinophils/100 WBC (Bld) 1.7 % Normal 0.0-8.0 [facility] Comment on above: Performed By: #### 2 [id number] #### [facility] [address] [place] [address] Erythrocyte distribution width (RBC) [Ratio] 13.9 % Normal 10.9-14.2 [facility] Comment on above: Performed By: #### 2 [id number] #### [facility] [address] [place] [address] Hematocrit (Bld) [Volume fraction] 39.6 % Normal 37.7-49.0 [facility] Comment on above: Performed By: #### 2 [id number] #### [facility] [address] [place] [address] Hemoglobin (Bld) [Mass/Vol] 14.0 g/dL Normal 13.5-17.5 [facility] Comment on above: Performed By: #### 2 [id number] #### [facility] [address] [place] [address] Lymphocytes (Bld) [#/Vol] 1.5 E9/L Normal 1.0-4.0 [facility] Comment on above: Performed By: #### 2 [id number] #### [facility] [address] [place] [address] Lymphocytes/100 WBC (Bld) 28.4 % Normal 14.0-50.0 [facility] Comment on above: Performed By: #### 2 [id number] #### [facility] [address] [place] [address] MCH (RBC) [Entitic mass] 31.9 pg Normal 27.0-34.0 [facility] Comment on above: Performed By: #### 2 [id number] #### [facility] [address] [place] [address] MCHC (RBC) [Mass/Vol] 35.3 g/dL Normal 31.4-36.0 [facility] Comment on above: Performed By: #### 2 [id number] #### [facility] [address] [place] [address] MCV (RBC) [Entitic vol] 90.5 fL Normal 80.0-100.0 [facility] Comment on above: Performed By: #### 2 615346 #### [facility] [address] [place] [address] Monocytes (Bld) [#/Vol] 0.6 E9/L Normal 0.2-1.0 [facility] Comment on above: Performed By: #### 2 625140 #### [facility] [address] [place] [address] Neutrophils (Bld) [#/Vol] 3.2 E9/L Normal 2.0-7.5 [facility] Comment on above: Performed By: #### 2 532276 #### [facility] [address] [place] [address] Neutrophils/100 WBC (Bld) 58.2 % Normal 36.0-75.0 [facility] Comment on above: Performed By: #### 2 [id number] #### [facility] [address] [place] [address] Platelet mean volume (Bld) [Entitic vol] 9.3 fL Normal 6.4-10.8 [facility] Comment on above: Performed By: #### 2 [id number] #### [facility] [address] [place] [address] Platelets (Bld) [#/Vol] 144.0 E9/L Low 150.0-500.0 [facility] Comment on above: Performed By: #### 2 [id number] #### [facility] [address] [place] [address] RBC (Bld) [#/Vol] 4.4 E12/L Normal 4.3-5.9 [facility] Comment on above: Performed By: #### 2 [id number] #### [facility] [address] [place] [address] WBC corrected for nucl RBC Auto (Bld) [#/Vol] 5.4 E9/L Normal 4.0-11.0 [facility] Comment on above: Performed By: #### 2 725630 #### [facility] [address] [place] [address] CHEMISTRYOrdered By: SYSTEM SYSTEM on 09-04-2024 Albumin [Mass/Vol] 4.2 g/dL Normal 3.3 - 5.0 gm/dL [facility] Chem Albumin/Globulin [Mass ratio] 2.5 {ratio} High [...] Bilirubin [Mass/Vol] 1.6 mg/dL High 0.0 - 1 .1 mg/dL [facility] Calcium [Mass/Vol] 9.4 mg/dL Normal 8.9 - 11. 1 mg/dL [facility] Chloride [Moles/Vol] 99 mmol/L Low 101 - 1 11 mmol/L [facility] CO2 [Moles/Vol] 28 mmol/L Normal 21 - 31 mmol/L [facility] Creatinine [Mass/Vol] 0.8 mg/dL Normal 0.5 - 1.3 mg/dL [facility] eGFR 97 mL/min/1.73 m2 Normal >=59mL/min /1 .73 m2 [facility] Ferritin [Mass/Vol] 146 ng/mL Normal 24 - 336 ng/mL [facility] Globulin (S) [Mass/Vol] 1.7 g/dL Normal 1.4 - 4.0 gm/dL [facility] Glucose [Mass/Vol] 121 mg/dL Normal 55 - 199 mg/dL [facility] Iron [Mass/Vol] 118 ug/dL Normal 35 - 153 mcg/dL [facility] Iron binding capacity [Mass/Vol] 309 ug/dL Normal 250 - 400 mcg/dL [facility] Iron saturation [Mass fraction] 38 % Normal 20 - 50 % [facility] Potassium [Moles/Vol] 4.4 mmol/L Normal 3.5 - 5.3 mmol/L [facility] Protein [Mass/Vol] 5.9 g/dL Low 6.0 - 7.8 gm/dL [facility] Sodium [Moles/Vol] 135 mmol/L Normal 135 - 145 mmol/L [facility] Transferrin [Mass/Vol] 221 mg/dL Normal 200 - 370 mg/dL [facility] Urea nitrogen [Mass/Vol] 13 mg/dL Normal 5 - 21 mg/dL [facility] Urea nitrogen/Creatinine [Mass ratio] 16 mg/mg Normal - [facility] CMPon 09-04-2024 Albumin [Mass/Vol] 4.2 g/dL Normal 3.3-5.0 [facility] Comment on above: Performed By: #### 2 [id number] #### [facility] [address] [place] [address] Albumin/Globulin (S) [Mass conc ratio] 2.5 High 1.1-2.2 [facility] Comment on above: Performed By: #### 2 [id number] #### [facility] [address] [place] [address] ALP [Catalytic activity/Vol] 53 Int._Unit/L Normal 21-98 [facility] Comment on above: Performed By: #### 2 [id number] #### [facility] [address] [place] [address] ALT No additional P-5'-P [Catalytic activity/Vol] 41 Int._Unit/L Normal 6-46 [facility] Comment on above: Performed By: #### 2 [id number] #### [facility] [address] [place] [address] Anion gap [Moles/Vol] 12 mmol/L Normal 6-16 [facility] Comment on above: Performed By: #### 2 [id number] #### [facility] [address] [place] [address] AST [Catalytic activity/Vol] 23 Int._Unit/L Normal 5-43 [facility] Comment on above: Performed By: #### 2 833002 #### [facility] [address] [place] [address] Bilirubin [Mass/Vol] 1.6 mg/dL High 0.0-1.1 [facility] Comment on above: Performed By: #### 2 593186 #### [facility] [address] [place] [address] Calcium [Mass/Vol] 9.4 mg/dL Normal 8.9-11.1 [facility] Comment on above: Performed By: #### 2 [id number] #### [facility] [address] [place] [address] Chloride [Moles/Vol] 99 mmol/L Low 101-111 [facility] Comment on above: Performed By: #### 2 983527 #### [facility] [address] [place] [address] CO2 [Moles/Vol] 28 mmol/L Normal 21-31 [facility] Comment on above: Performed By: #### 2 447145 #### [facility] [address] [place] [address] Creatinine [Mass/Vol] 0.8 mg/dL Normal 0.5-1.3 [facility] Comment on above: Performed By: #### 2 560881 #### [facility] [address] [place] [address] Globulin (S) [Mass/Vol] 1.7 g/dL Normal 1.4-4.0 [facility] Comment on above: Performed By: #### 2 529383 #### [facility] [address] [place] [address] Glucose [Mass/Vol] 121 mg/dL Normal 55-199 [facility] Comment on above: Performed By: #### 2 534252 #### [facility] [address] [place] [address] Potassium [Moles/Vol] 4.4 mmol/L Normal 3.5-5.3 [facility] Comment on above: Performed By: #### 2 285545 #### [facility] [address] [place] [address] Protein [Mass/Vol] 5.9 g/dL Low 6.0-7.8 [facility] Comment on above: Performed By: #### 2 674113 #### [facility] [address] [place] [address] Sodium [Moles/Vol] 135 mmol/L Normal 135-145 [facility] Comment on above: Performed By: #### 2 195913 #### [facility] [address] [place] [address] Urea nitrogen [Mass/Vol] 13 mg/dL Normal 5- [facility] Comment on above: Performed By: #### 2 293914 #### [facility] [address] [place] [address] Urea nitrogen/Creatinine [Mass ratio] 16 No Units Normal - [facility] Comment on above: Performed By: #### 2 [id number] #### [facility] [address] [place] [address] Ferritinon 09-04-2024 Ferritin [Mass/Vol] 146 ng/mL Normal 24-336 [facility] Comment on above: Performed By: #### 2 [id number] #### [facility] [address] [place] [address] HEMATOLOGYOrdered By: SYSTEM SYSTEM on 09-04-2024 Basophils/100 [...] 4.4 E12/L Normal 4.3 - 5.9 E12/L Rem[facility] Heme WBC corrected for nucl RBC Auto (Bld) [#/Vol] 5.4 E9/L Normal 4.0 - 11.0 E9/L [facility] Heme Ironon 09-04-2024 Iron [Mass/Vol] 118 microgram/dL Normal 35-153 [facility] Comment on above: Performed By: #### 2 [id number] #### [facility] [address] [place] [address] Iron Saturationon 09-04-2024 Iron binding capacity [Mass/Vol] 309 microgram/dL Normal 250-400 [facility] Comment on above: Performed By: #### 2 [id number] #### [facility] [address] [place] [address] Iron saturation [Mass fraction] 38 % Normal 20-50 [facility] Comment on above: Performed By: #### 2 [id number] #### [facility] [address] [place] [address] Transferrinon 09-04-2024 Transferrin [Mass/Vol] 221 mg/dL Normal 200-370 [facility] Comment on above: Performed By: #### 2 [id number] #### [facility] [address] [place] [address] eGFRon 09-04-2024 eGFR 97 mL/min/1.73 m2 Normal >=59 [facility] Comment on above: Performed By: #### 1 [id number] #### [facility] [address] [place] [address] 36on 08-02-2024 36 Late entry Spoke with Bonita 07/23/24. Explained that patient would need to come to [facility] to have 24hr BP monitor placed. Options for returning would depend on when patient was coming to have it placed. Bonita was going to call and speak with patient and let me know. 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 Normal [facility] Family Medicine Office/Clini c Noteon 08-01-2024 Family Medicine Office/Clinic Note Family Medicine Office/Clinic Note HPI Staff Marcelle is a 64 year old male presenting to discuss blood sugars Hgb A1C %: 6.9 % High (03/04/24 14:20:00) questions/concerns: on monday had kenalog 40mg [...] no acute distress ENMT: oral mucosa moist Cardiovascular:irregu lar rate and rhythm, normal peripheral perfusion Respiratory: Lungs clear to auscultation, respirations non labored Extremities: no deformity, no trauma Neurological: oriented x 4, level of consciousness appropriate for age, CN II-XII intact, motor strength equal & normal bilaterally, speech normal Abdomen: Soft, Non-tender, Non-distended, + Bowel sounds Assessment/Plan 1. 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 Normal [facility] Comment on above: Result Comment: Elec tronically Signed By: Km NIELSON, Ursula Porter\.br\Date and Time Signed: 08/01/24 11:31 EDT [facility] 07-31-20 [facility] Case Information Case Priority: None Programs: -- Referral Source: Auto Self Service Station Attendant Referral Reason: Disease management Case Type: Chronic Care Management Risk Score: -- Case Status: Active (December 28, 2023) Date Assigned: December 19, 2023 Assigned By: Christian Hernandez Date Enrolled: December 28, 2023 Assigned Primary Personnel: Christian Hernandez Assigned Secondary Personnel: -- Case Physician: Ursula Love MD Ongoing AAA (abdominal aortic aneurysm) Aortic aneurysm BMI 28.0-28.9,adult BPH (benign prostatic hyperplasia) 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 Controlled type 2 diabetes mellitus without [...] Assessments 12/28/23 08:18:00 Result Name Value Comment [facility] Program Enrollment Verbally agreed to receive [facility] services CCM Written Consent Written consent in progress CCM Verbal Consent By Self 12/28/23 07:00:00 Result Name Value Comment HIPPA Verified Type of Contact In person at home CM Preferred Spoken Language Vietnamese CM Preferred Written Language Vietnamese Preferred Communication Mode Verbal Ability to Read/Write Able to read, Able to write Preferred Salutation MrNelly Preferred Method of Contact Cell Cell Phone [phone] Best Time to Visit or Contact 7-10 am Best Day to Visit or Contact No preference Appointment Reminders Patient portal, Other secured messaging Preferred Way to Send PHI Patient portal Preferred Mailing Address [address] [place] [address], [address] Learning Style Pref Patient Verbal explanation Learning [...] Shares bed Support System Spouse/Significant other Primary Table Games Shift Manager of Home Medication Self Current DME at Home No Currently Receiving Skilled Services No Skilled Service Need (more content not included)... Normal [facility] 36on 07-19-[address] results from [...] this and what it all entails? Thanks. [facility] Orders Onlyon 07-15-2024 Orders Only [id number] Marcelle Deutsch 1960 Date Provider Department Center 07/15/2024 ALESHA BERNARDO Family History Problem Relation Age of Onset Coronary artery disease Father Atrial fibrillation Father Heart attack Brother Family Status - Relation Status Age at Father Brother [facility] Office Visiton 07-12-2024 Follow-up visit [id number] Lim 1960 Date Provider Department Center 07/12/2024 367-BLANKA GORE Family History Problem Relation Age of Onset Coronary artery disease Father Atrial fibrillation Father Heart attack Brother Family Status - Relation Status Age at Father Brother Level of Service:02452 NE OFFICE/OUTPATIENT ESTABLISHED MOD MDM 30 MIN [facility] Orders Onlyon 07-11-2024 Orders Only [id number] Marcelle Deutsch 1960 Date Provider Department Center 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 Family History Problem Relation Age of Onset Coronary artery disease Father Atrial fibrillation Father Heart attack Brother Family Status - Relation Status Age at Father Brother [facility] Population Health 06-28-20 Population [facility] Population Health Case Information Case Priority: None Programs: -- Referral Source: Auto Self Service Station Attendant Referral Reason: Disease management Case Type: Chronic Care Management Risk Score: -- Case Status: Active (December 28, 2023) Date Assigned: December 19, 2023 Assigned By: Christian Hernandez Date Enrolled: December 28, 2023 Assigned Primary Personnel: Christian Hernandez Assigned Secondary Personnel: -- Case Physician: Ursula Love MD Ongoing AAA (abdominal aortic aneurysm) Aortic aneurysm BMI 28.0-28.9,adult BPH (benign prostatic hyperplasia) 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 Preferred Method of Contact Cell Cell Phone [phone] Best Time to Visit or Contact 7-10 am Best Day to Visit or Contact No preference Appointment Reminders Patient portal, Other secured messaging Preferred Way to Send PHI Patient portal Preferred Mailing Address [address] [place] [address] Learning Style Pref Patient Verbal explanation Learning [...] Shares bed Support System Spouse/Significant other Primary Table Games Shift Manager of Home Medication Self Current DME at Home No Currently Receiving Skilled Services No Skilled Service Need (more content not included)... Normal [facility] 06-11-20 Population [facility] Population Health Case Information Case Priority: None Programs: -- Referral Source: Auto Self Service Station Attendant Referral Reason: Disease management Case Type: Chronic Care Management Risk Score: -- Case Status: Active (December 28, 2023) Date Assigned: December 19, 2023 Assigned By: Christian Hernandez Date Enrolled: December 28, 2023 Assigned Primary Personnel: Christian Hernandez Assigned Secondary Personnel: -- Case Physician: Ursula Love MD Ongoing AAA (abdominal aortic aneurysm) Aortic aneurysm BMI 28.0-28.9,adult BPH (benign prostatic hyperplasia) 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 Controlled type 2 diabetes mellitus without [...] CCM Program Enrollment Verbally agreed to receive [facility] services CCM Written Consent Written consent in progress CCM Verbal Consent By Self 12/28/23 07:00:00 Result Name Value Comment HIPPA Verified Type of Contact In person at home CM Preferred Spoken Language Vietnamese CM Preferred Written Language Vietnamese Preferred Communication Mode Verbal Ability to Read/Write Able to read, Able to write Preferred Salutation Preferred Method of Contact Cell Cell Phone [phone] Best Time to Visit or Contact 7-10 am Best Day to Visit or Contact No preference Appointment Reminders Patient portal, Other secured messaging Preferred Way to Send PHI Patient portal Preferred Mailing Address [address] [place] [address] Learning Style Pref Patient Verbal explanation Learning [...] Shares bed Support System Spouse/Significant other Primary Table Games Shift Manager of Home Medication Self Current DME at Home No Currently Receiving Skilled Services No Skilled Service Needs Anticipated No Barriers to Care None Home Barriers None (more content not included)... Normal [facility] 36on 06-04-2024 36 Regarding carotid duplex performed on 05/29/2024: MERVAT Kendrick MA Let them know less than 49% stenosis of both carotids- really very good- Continue all meds and we will see them next time Probably a repeat carotid in 1-3 years- unless symptoms Patient made aware via email. Normal [facility] Population Health 04-25-20 [facility] Health Case Information Case Priority: None Programs: -- Referral Source: Auto Self Service Station Attendant Referral Reason: Disease management Case Type: Chronic Care Management Risk Score: -- Case Status: Active (December 28, 2023) Date Assigned: December 19, 2023 Assigned By: Christian Hernandez Date Enrolled: December 28, 2023 Assigned Primary Personnel: Christian Hernandez Assigned Secondary Personnel: -- Case Physician: Ursula Love MD Ongoing AAA (abdominal aortic aneurysm) Aortic aneurysm BMI 28.0-28.9,adult BPH (benign prostatic hyperplasia) 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. Highest education level: High school. 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 Preferred Method of Contact Cell Cell Phone [phone] Best Time to Visit or Contact 7-10 am Best Day to Visit or Contact No preference Appointment Reminders Patient portal, Other secured messaging Preferred Way to Send PHI Patient portal Preferred Mailing Address [address] [place] [address] Learning Style Pref Patient Verbal explanation Learning [...] Shares bed Support System Spouse/Significant other Primary Table Games Shift Manager of Home Medication Self Current DME at Home No Currently Receiving Skilled Services No Skilled Service Needs Anticipated No Barriers to Care None Home Barriers None Employment Status Retired Financial Issues None Sources of Income Socia (more content not included)... Normal [facility] Ambulatory Visit Summaryon 0 03-26-2024 Ambulatory [...] Care Team Attending Physician - Ursula Love MD. Primary Care Physician - Ursula Love MD. [...] 2:00 PM EDT With: Where: [facility] , 2023 2:00 PM EST With: Where: [facility] Monday, 2023 11:00 AM EST With: Tj BURTON, Ana Rivas Where: [facility] 2023 2:00 PM EST With: Where: [facility] 2024 2:15 PM EST With: Where: [facility] 2024 2:15 PM EST With: Where: [facility] Monday 8:00 AM EST With: Where: [facility] Kofi Normal [facility] Family Medicine Office/Clini c Noteon 03-26-2024 [...] Daily, # 100 cap(s), Refills(s) 0, Pharmacy: [facility]/pharmacy #[id number], 178, cm, 12/18/23 13:19:00 EST, Height/Length Dosing, 89.1, kg, 12/18/23 13:19:00 EST, Weight Dosing lisinopril, See Instructions, TAKE 1 TABLET DAILY, # 90 tab(s), Refills(s) 1, Pharmacy: [facility]/pharmacy #[id number], 179, cm, 03/26/24 10:53:00 EDT, Height/Length Dosing, 86, kg, 03/26/24 10:53:00 EDT, Weight Dosing Follow-up No qualifying data available Problem List/Past Medical History Ongoing AAA (abdominal aortic aneurysm) Aortic aneurysm BMI 28.0-28.9,adult BPH (benign prostatic hyperplasia) 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 Normal [facility] Comment on above: Result Comment: Elec tronically Signed By: Km NIELSON, Ursula Porter\.br\Date and Time Signed: 03/26/24 16:51 EDT Physician Referralon 024 Physician Referral [id number] .[id number] Normal [facility] Population Healthon 03-22-20 24 Population Health Case Information Case Priority: None Programs: -- Referral Source: Head Of Art Referral Reason: Disease management Case Type: Chronic Care Management Risk Score: -- Case Status: Active (December 28, 2023) Date Assigned: December 19, 2023 Assigned By: Christian Hernandez Date Enrolled: December 28, 2023 Assigned Primary Personnel: Christian Hernandez Assigned Secondary Personnel: -- Case Physician: Ursula Love MD Problems Ongoing AAA (abdominal aortic aneurysm) Aortic aneurysm BMI 28.0-28.9,adult BPH (benign prostatic hyperplasia) 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 Preferred Method of Contact Cell Cell Phone [phone] Best Time to Visit or Contact 7-10 am Best Day to Visit or Contact No preference Appointment Reminders Patient portal, Other secured messaging Preferred Way to Send PHI Patient portal Preferred Mailing Address [address] [place] [address], [address] Learning Style Pref Patient Verbal explanation Learning [...] Shares bed Support System Spouse/Significant other Primary Table Games Shift Manager of Home Medication Self Current DME at Home No Currently Receiving Skilled Services No Skilled Service Needs Anticipated No Barriers to Care None Home Barriers None Employment Status Retired Financial Issues None Sources of Income Social Security Pat (more content not included)... Normal [facility] Consent for Treatmenton 02-15 Consent for Treatment [id number] .[id number] Normal [facility] Oncology Progress Noteon Oncology Progress Note Chief Complaint b12 Deficiency; no concerns blood pressure at home 111/62 Diagnoses 1. Iron deficiency anemia (D50.9: Iron deficiency anemia, unspecified) 2. Intestinal malabsorption (K90.9: Intestinal malabsorption, unspecified) 3. B12 deficiency (E53.8: Deficiency of other specified B group vitamins) Oncological History/ROS/PE/Assess ment and Plan Mr. Deutsch is a 63 [...] a colonoscopy done in Sep 2023 at [facility] after positive Cologuard test. This showed a [...] Contact Information Tj NATHAN-PEMA, Ana Rivas, ONC [facility] [address] [place] [phone] Additional Instructions: cbc, cmp, iron studies in 3mo and 6mo follow-up in 6mo with PROBATION AND PATROL AGENT Medications amLODIPine 5 mg Tab, Oral, Daily [...] (DoT), 100 (more content not included)... Normal [facility] CBC w/ Auto Diffon 4 Acanthocytes LM Ql (Bld) PRESENT Invalid Interpretation Code [facility] Comment on above: Performed By: #### 2 [id number] #### [facility] [address] [place] [address] Anisocytosis Ql (Bld) PRESENT Invalid Interpretation Code [facility] Comment on above: Performed By: #### 2 [id number] #### [facility] [address] [place] [address] Basophils/100 WBC (Bld) 0.8 % Normal 0.0-2.0 [facility] Comment on above: Performed By: #### 2 [id number] #### [facility] [address] [place] [address] Basophils/Leukocytes Auto (Bld) [Pure # fraction] 0.0 E9/L Normal 0.0-0.2 [facility] Comment on above: Performed By: #### 2 [id number] #### [facility] [address] [place] [address] Eosinophils (Bld) [#/Vol] 0.2 E9/L Normal 0.0-0.5 [facility] Comment on above: Performed By: #### 2 [id number] #### [facility] [address] [place] [address] Eosinophils/100 WBC (Bld) 3.7 % Normal 0.0-8.0 [facility] Comment on above: Performed By: #### 2 [id number] #### [facility] [address] [place] [address] Erythrocyte distribution width (RBC) [Ratio] 27.1 % High 10.9-14.2 [facility] Comment on above: Performed By: #### 2 [id number] #### [facility] [address] [place] [address] Hematocrit (Bld) [Volume fraction] 40.0 % Normal 37.7-49.0 [facility] Comment on above: Performed By: #### 2 [id number] #### [facility] [address] [place] [address] Hemoglobin (Bld) [Mass/Vol] 13.4 g/dL Low 13.5-17.5 [facility] Comment on above: Performed By: #### 2 [id number] #### [facility] [address] [place] [address] Hypochromia Auto Ql (Bld) PRESENT Invalid Interpretation Code [facility] Comment on above: Performed By: #### 2 [id number] #### [facility] [address] [place] [address] Lymphocytes (Bld) [#/Vol] 1.6 E9/L Normal 1.0-4.0 [facility] Comment on above: Performed By: #### 2 [id number] #### [facility] [address] [place] [address] Lymphocytes/100 WBC (Bld) 32.5 % Normal 14.0-50.0 [facility] Comment on above: Performed By: #### 2 [id number] #### [facility] [address] [place] [address] MCH (RBC) [Entitic mass] 27.3 pg Normal 27.0-34.0 [facility] Comment on above: Performed By: #### 2 [id number] #### [facility] [address] [place] [address] MCHC (RBC) [Mass/Vol] 33.6 g/dL Normal 31.4-36.0 [facility] Comment on above: Performed By: #### 2 [id number] #### [facility] [address] [place] [address] MCV (RBC) [Entitic vol] 81.4 fL Normal 80.0-100.0 [facility] Comment on above: Performed By: #### 2 [id number] #### [facility] [address] [place] [address] Monocytes (Bld) [#/Vol] 0.4 E9/L Normal 0.2-1.0 [facility] Comment on above: Performed By: #### 2 [id number] #### [facility] [address] [place] [address] Neutrophils (Bld) [#/Vol] 2.7 E9/L Normal 2.0-7.5 [facility] Comment on above: Performed By: #### 2 [id number] #### [facility] [address] [place] [address] Neutrophils/100 WBC (Bld) 55.1 % Normal 36.0-75.0 [facility] Comment on above: Performed By: #### 2 297154 #### [facility] [address] [place] [address] Ovalocytes LM Ql (Bld) PRESENT Invalid Interpretation Code [facility] Comment on above: Performed By: #### 2 [id number] #### [facility] [address] [place] [address] Platelet mean volume (Bld) [Entitic vol] 9.9 fL Normal 6.4-10.8 [facility] Comment on above: Performed By: #### 2 [id number] #### [facility] [address] [place] [address] Platelets (Bld) [#/Vol] 116.0 E9/L Low 150.0-500.0 [facility] Comment on above: Performed By: #### 2 [id number] #### [facility] [address] [place] [address] RBC (Bld) [#/Vol] 4.9 E12/L Normal 4.3-5.9 [facility] Comment on above: Performed By: #### 2 [id number] #### [facility] [address] [place] [address] RBC size Nom (Bld) SEE MORPHOLOGY Invalid Interpretation Code [facility] Comment on above: Performed By: #### 2 [id number] #### [facility] [address] [place] [address] WBC corrected for nucl RBC Auto (Bld) [#/Vol] 5.0 E9/L Normal 4.0-11.0 [facility] Comment on above: Performed By: #### 2 [id number] #### [facility] [address] [place] [address] CHEMISTRYOrdered By: SYSTEM SYSTEM on 03-12-2024 Albumin [Mass/Vol] 4.3 g/dL Normal 3.3 - 5.0 gm/dL [facility] Chem Albumin/Globulin [Mass ratio] 2.3 {ratio} High [...] Bilirubin [Mass/Vol] 1.8 mg/dL High 0.0 - 1 .1 mg/dL [facility] Calcium [Mass/Vol] 9.1 mg/dL Normal 8.9 - 11. 1 mg/dL [facility] Chloride [Moles/Vol] 102 mmol/L Normal 101 - 1 11 mmol/L [facility] CO2 [Moles/Vol] 26 mmol/L Normal 21 - 31 mmol/L [facility] Creatinine [Mass/Vol] 0.8 mg/dL Normal 0.5 - 1.3 mg/dL [facility] eGFR 98 mL/min/1.73 m2 Normal >=59mL/min /1 .73 m2 [facility] Ferritin [Mass/Vol] 179 ng/mL Normal 24 - 336 ng/mL [facility] Globulin (S) [Mass/Vol] 1.9 g/dL Normal 1.4 - 4.0 gm/dL [facility] Glucose [Mass/Vol] 153 mg/dL Normal 55 - 199 mg/dL [facility] Iron [Mass/Vol] 117 ug/dL Normal 35 - 153 mcg/dL [facility] Iron binding capacity [Mass/Vol] 326 ug/dL Normal 250 - 400 mcg/dL [facility] Iron saturation [Mass fraction] 36 % Normal 20 - 50 % [facility] Potassium [Moles/Vol] 4.7 mmol/L Normal 3.5 - 5.3 mmol/L [facility] Protein [Mass/Vol] 6.2 g/dL Normal 6.0 - 7.8 gm/dL [facility] Sodium [Moles/Vol] 135 mmol/L Normal 135 - 145 mmol/L [facility] Transferrin [Mass/Vol] 233 mg/dL Normal 200 - 370 mg/dL [facility] Urea nitrogen [Mass/Vol] 9 mg/dL Normal 5 - 21 mg/dL [facility] Urea nitrogen/Creatinine [Mass ratio] 11 mg/mg Normal 10 - 20 [facility] CMPon 03-12-2024 Albumin [Mass/Vol] 4.3 g/dL Normal 3.3-5.0 [facility] Comment on above: Performed By: #### 2 [id number] #### [facility] [address] [place] [address] Albumin/Globulin (S) [Mass conc ratio] 2.3 High 1.1-2.2 [facility] Comment on above: Performed By: #### 2 [id number] #### [facility] [address] [place] [address] ALP [Catalytic activity/Vol] 54 Int._Unit/L Normal 21-98 [facility] Comment on above: Performed By: #### 2 [id number] #### [facility] [address] [place] [address] ALT No additional P-5'-P [Catalytic activity/Vol] 47 Int._Unit/L High 6-46 [facility] Comment on above: Performed By: #### 2 [id number] #### [facility] [address] [place] [address] Anion gap [Moles/Vol] 12 mmol/L Normal 6-16 [facility] Comment on above: Performed By: #### 2 [id number] #### [facility] [address] [place] [address] AST [Catalytic activity/Vol] 30 Int._Unit/L Normal 5-43 [facility] Comment on above: Performed By: #### 2 [id number] #### [facility] [address] [place] [address] Bilirubin [Mass/Vol] 1.8 mg/dL High 0.0-1.1 [facility] Comment on above: Performed By: #### 2 [id number] #### [facility] [address] [place] [address] Calcium [Mass/Vol] 9.1 mg/dL Normal 8.9-11.1 [facility] Comment on above: Performed By: #### 2 [id number] #### [facility] [address] [place] [address] Chloride [Moles/Vol] 102 mmol/L Normal 101-111 [facility] Comment on above: Performed By: #### 2 [id number] #### [facility] [address] [place] [address] CO2 [Moles/Vol] 26 mmol/L Normal 21-31 [facility] Comment on above: Performed By: #### 2 [id number] #### [facility] [address] [place] [address] Creatinine [Mass/Vol] 0.8 mg/dL Normal 0.5-1.3 [facility] Comment on above: Performed By: #### 2 [id number] #### [facility] [address] [place] [address] Globulin (S) [Mass/Vol] 1.9 g/dL Normal 1.4-4.0 [facility] Comment on above: Performed By: #### 2 [id number] #### [facility] [address] [place] [address] Glucose [Mass/Vol] 153 mg/dL Normal 55-199 [facility] Comment on above: Performed By: #### 2 [id number] #### [facility] [address] [place] [address] Potassium [Moles/Vol] 4.7 mmol/L Normal 3.5-5.3 [facility] Comment on above: Performed By: #### 2 [id number] #### [facility] [address] [place] [address] Protein [Mass/Vol] 6.2 g/dL Normal 6.0-7.8 [facility] Comment on above: Performed By: #### 2 [id number] #### [facility] [address] [place] [address] Sodium [Moles/Vol] 135 mmol/L Normal 135-145 [facility] Comment on above: Performed By: #### 2 [id number] #### [facility] [address] [place] [address] Urea nitrogen [Mass/Vol] 9 mg/dL Normal 5-21 [facility] Comment on above: Performed By: #### 2 191600 #### [facility] [address] [place] [address] Urea nitrogen/Creatinine [Mass ratio] 11 No Units Normal 10-20 [facility] Comment on above: Performed By: #### 2 [id number] #### [facility] [address] [place] [address] Consent for Treatmenton 02-14 Consent for Treatment [id number] Normal [facility] Ferritinon 03-12-2024 Ferritin [Mass/Vol] 179 ng/mL Normal 24-336 [facility] Comment on above: Performed By: #### 2 [id number] #### [facility] [address] [place] [address] HEMATOLOGYOrdered By: SYSTEM SYSTEM on 03-12-2024 Acanthocytes [...] 4.9 E12/L Normal 4.3 - 5.9 E12/L [facility] Heme RBC size Nom (Bld) SEE MORPHOLOGY *NA* (03/12/24 8:44 AM) Invalid Interpretation Code [facility] Heme WBC corrected for nucl RBC Auto (Bld) [#/Vol] 5.0 E9/L Normal 4.0 - 11.0 E9/L [facility] Heme Ironon 03-12-2024 Iron [Mass/Vol] 117 microgram/dL Normal 35-153 [facility] Comment on above: Performed By: #### 2 [id number] #### [facility] [address] [place] [address] Iron Saturationon 03-12-2024 Iron binding capacity [Mass/Vol] 326 microgram/dL Normal 250-400 [facility] Comment on above: Performed By: #### 2 [id number] #### [facility] [address] [place] [address] Iron saturation [Mass fraction] 36 % Normal 20-50 [facility] Comment on above: Performed By: #### 2 504762 #### [facility] [address] [place] [address] Transferrinon 03-12-2024 Transferrin [Mass/Vol] 233 mg/dL Normal 200-370 [facility] Comment on above: Performed By: #### 2 491740 #### [facility] [address] [place] [address] eGFRon 03-12-2024 eGFR 98 mL/min/1.73 m2 Normal >=59 [facility] Comment on above: Order Comment: Order added by Discern Expert. Performed By: #### 1 [id number] #### [facility] [address] [place] [address] Consent for Treatmenton Consent for Treatment [id number]#1 .00TIFF [facility] Consent for Treatmenton 01-15 Consent for Treatment [id number] 404 [id number]#1 .00TIFF [facility] Consent for Treatmenton 01-14 Consent for Treatment [id number] 404 [id number]#1 .00TIFF [facility] Consenton 01-31-2024 Consent [id number]# 1.00TIFF [facility] Outside Diabetes Eye Examon 01-31-2024 Outside Diabetes Eye Exam [id number]#1 .00TIFF [facility] Population Healthon 01-26-20 Population Health Case Information Case Priority: None Programs: -- Referral Source: Head Of Art Referral Reason: Disease management Case Type: Chronic Care Management Risk Score: -- Case Status: Active (December 28, 2023) Date Assigned: December 19, 2023 Assigned By: Christian Hernandez Date Enrolled: December 28, 2023 Assigned Primary Personnel: Christian Hernandez Assigned Secondary Personnel: -- Case Physician: Ursula Love MD Ongoing AAA (abdominal aortic aneurysm) Aortic aneurysm BMI 28.0-28.9,adult BPH (benign prostatic hyperplasia) 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 Controlled type 2 diabetes mellitus without [...] CCM Program Enrollment Verbally agreed to receive [facility] services CCM Written Consent Written consent in progress CCM Verbal Consent By Self 12/28/23 07:00:00 Result Name Value Comment HIPPA Verified Type of Contact In person at home CM Preferred Spoken Language Vietnamese CM Preferred Written Language Vietnamese Preferred Communication Mode Verbal Ability to Read/Write Able to read, Able to write Preferred Salutation MrNelly Preferred Method of Contact Cell Cell Phone [phone] Best Time to Visit or Contact 7-10 am Best Day to Visit or Contact No preference Appointment Reminders Patient portal, Other secured messaging Preferred Way to Send PHI Patient portal Preferred Mailing Address [address] [place] [address] Learning Style Pref Patient Verbal explanation Learning [...] Shares bed Support System Spouse/Significant other Primary Table Games Shift Manager of Home Medication Self Current DME at Home No Currently Receiving Skilled Services No Skilled Service Needs Anticipated No Barriers to Care None Home Barriers None Employment Status Retired Financial Issues None Sources of Income Social Security Pat (more content not included)... Normal [facility] Consent for Treatmenton 01-14 Consent for Treatment [id number]#1 .00TIFF Normal [facility] Oncology Progress Noteon Oncology Progress Note [...] Iron Level Iron Percent Saturation Transferrin Oncological History/ROS/PE/Assess ment and Plan Mr. Deutsch is a 63 [...] his nasa (more content not included)... Normal [facility] Free K+L Lt Chains,Qn,Son Immunoglobulin light chains.kappa.free (S) [Mass/Vol] 19.0 mg/L Invalid Interpretation Code 3.3-19.4 [facility] Comment on above: Performed By: #### 2 298331, 5469549, 6559562, 5740532, 6922050, 0427741, 0468269, 71597054, 550490087 ####[facility] [address] [place] [address] Immunoglobulin light chains.kappa.free/Immu noglobulin light chains.lambda.free (S) [Mass ratio] 1.62 Invalid Interpretation Code 0.26-1.65 [facility] Comment on above: Result Comment: Perf ormed at: [facility] [address] [id number] PhD Nicole Fang Performed By: #### 2 282918, 9155255, 2249156, 6478167, 0982168, 1733368, 4311706, 94010840, 690216691 ####[facility] [address] [place] [address] Immunoglobulin light chains.lambda.free [Mass/Vol] 11.7 mg/L Invalid Interpretation Code 5.7-26.3 [facility] Comment on above: Performed By: #### 2 621941, 2354129, 3598199, 6954406, 1341469, 0097833, 5549596, 02598494, 120542925 ####[facility] [address] [place] [address] Immunofixation Serumon 01-16 IgA [Mass/Vol] 87 mg/dL Invalid Interpretation Code 61-437 [facility] Comment on above: Performed By: #### 2 713982, 0698591, 9465293, 3578703, 9815715, 5130142, 4459072, 44006338, 872625920 ####[facility] [address] [place] [address] IgG [Mass/Vol] 406 mg/dL Low 603-1613 [facility] Comment on above: Performed By: #### 2 808750, 7324073, 1139412, 4683793, 9706821, 3587741, 8614007, 38627505, 183535590 ####[facility] [address] [place] [address] IgM [Mass/Vol] 136 mg/dL Invalid Interpretation Code 20-172 [facility] Comment on above: Result Comment: Perf ormed at: [facility] [place] [address] [place], [place] [id number] PhD Nicole Fang Performed By: #### 2 214075, 3747238, 6467485, 5185826, 2860135, 1104636, 3237287, 87556206, 971531069 ####[facility] [address] [place] [address] Protein Fractions [Interp] Comment Invalid Interpretation Code [facility] Comment on above: Result Comment: No m onoclonality detected. Performed By: #### 2 708653, 4913645, 6433002, 8257223, 8411401, 4695720, 2419900, 97367736, 979100153 ####[facility] [address] [place] [address] SPEon 01-17-2024 Albumin [Mass/Vol] 3.6 g/dL Invalid Interpretation Code 2.9-4.4 [facility] Comment on above: Performed By: #### 2 863207, 7581648, 3038529, 1719514, 0888144, 6010167, 3659830, 90329028, 143753745 ####[address] [place] [address] Albumin/Globulin [Mass ratio] 1.8 {ratio} High 0.7-1.7 [facility] Comment on above: Performed By: #### 2 744633, 6604369, 3925785, 3676670, 5997681, 9653029, 1712414, 39717633, 646177999 ####[address] [place] [address] Alpha 1 globulin Elph [Mass/Vol] 0.2 g/dL Invalid Interpretation Code 0.0-0.4 [facility] Comment on above: Performed By: #### 2 517223, 0640129, 4501969, 1002734, 8924830, 0029040, 2275242, 48589533, 532620236 ####[address] [place] [address] Alpha 2 globulin Elph [Mass/Vol] 0.6 g/dL Invalid Interpretation Code 0.4-1.0 [facility] Comment on above: Performed By: #### 2 068234, 7083040, 8055445, 3581685, 3541271, 8541864, 5879013, 45303013, 394736611 ####[address] [place] [address] Beta globulin Elph [Mass/Vol] 0.8 g/dL Invalid Interpretation Code 0.7-1.3 [facility] Comment on above: Performed By: #### 2 232027, 0712806, 7410736, 1077695, 2501077, 4552689, 9973078, 39103717, 455969285 ####[facility] [address] [place] [address] Gamma globulin Elph [Mass/Vol] 0.4 g/dL Invalid Interpretation Code 0.4-1.8 [facility] Comment on above: Performed By: #### 2 408429, 0425086, 9413963, 2238388, 6136038, 6720307, 7049499, 46601505, 756155602 ####[facility] [address] [place] [address] Globulin (S) [Mass/Vol] 2.0 g/dL Low 2.2-3.9 [facility] Comment on above: Performed By: #### 2 370776, 0418672, 6023884, 4031367, 9539544, 8259065, 4336558, 97418569, 200978251 ####[facility] [address] [place] [address] Laboratory comment Harman (Report) Comment Invalid Interpretation Code [facility] Comment on above: Result Comment: Prot ein electrophoresis scan will follow via computer, mail, or poultry dresser delivery. Performed By: #### 2 410193, 3770450, 5753427, 8866707, 7116389, 4690339, 9119146, 79532346, 794813310 ####[facility] [address] [place] [address] Protein [Mass/Vol] 5.6 g/dL Low 6.0-8.5 [facility] Comment on above: Performed By: #### 2 804624, 1350186, 9506527, 9681234, 1141677, 0247727, 8561784, 07609920, 746557926 ####[facility] [address] [place] [address] Protein Fractions [Interp] Comment: Invalid Interpretation Code [facility] Comment on above: Result Comment: SPE shows decreased total protein. Performed at: [facility] [address] [place], [place] [id number] PhD Nicole Fang Performed By: #### 2 328243, 0714885, 3877797, 0732839, 7757821, 3695702, 1954787, 02080087, 542737401 ####[facility] [address] [place] [address] Protein.monoclonal Elph [Mass/Vol] Not Observed Invalid Interpretation Code Not Observed [facility] Comment on above: Performed By: #### 2 564430, 9931138, 8218306, 0600563, 1759345, 4974014, 3103610, 28867548, 315537345 ####[facility] [address] [place] [address] CHEMISTRYOrdered By: SYSTEM SYSTEM on 01-16-2024 Cobalamin (Vitamin B12) [Mass/Vol] 213 pg/mL Normal 50 - 1500 pg/mL Remisol Chem Ferritin [Mass/Vol] 8 ng/mL Low 24 - 336 ng/mL Remisol Chem Folate [Mass/Vol] 13.0 ng/mL Normal >=6.7ng/mL Remisol Chem Iron [Mass/Vol] 36 ug/dL Normal 35 - 153 mcg/dL Remisol Chem Iron binding capacity [Mass/Vol] 473 ug/dL High 250 - 400 mcg/dL Remisol Chem Iron saturation [Mass fraction] 8 % Low 20 - 50 % Remisol Chem Transferrin [Mass/Vol] 338 mg/dL Normal 200 - 370 mg/dL Remisol Chem Consent for Treatmenton Consent for Treatment [id number] 404 [id number]#1 .00TIFF Normal [facility] Ferritinon 01-16-2024 Ferritin [Mass/Vol] 8 ng/mL Low 24-336 [facility] Comment on above: Performed By: #### 2 895028, 1529500, 7094959, 5976019, 7874928, 6179201, 5335796, 62773925, 914635033 ####[facility] [address] [place] [address] Folateon 01-16-2024 Folate [Mass/Vol] 13.0 ng/mL Normal >=6.7 [facility] Comment on above: Performed By: #### 2 199167, 3983185, 2822140, 5467636, 2826790, 2049552, 3198227, 04476359, 254794337 ####[facility] [address] [place] [address] Ironon 01-16-2024 Iron [Mass/Vol] 36 microgram/dL Normal 35-153 [facility] Comment on above: Performed By: #### 2 655955, 8859780, 3637066, 3370107, 2565320, 2714726, 2154388, 53400000, 442773221 ####[facility] [address] [place] [address] Iron Saturationon 01-16-2024 Iron binding capacity [Mass/Vol] 473 microgram/dL High 250-400 [facility] Comment on above: Performed By: #### 2 501044, 6478693, 0642800, 8046639, 3304595, 1592039, 3425496, 93345540, 695069530 ####[facility] [address] [place] [address] Iron saturation [Mass fraction] 8 % Low 20-50 [facility] Comment on above: Performed By: #### 2 711393, 2694345, 3440577, 5852103, 4057982, 7082767, 2687199, 91809811, 869580436 ####[facility] [address] [place] [address] Transferrinon 01-16-2024 Transferrin [Mass/Vol] 338 mg/dL Normal 200-370 [facility] Comment on above: Performed By: #### 2 517135, 6778806, 5711204, 8753207, 3656548, 3750809, 4180877, 47657052, 440854362 ####[facility] [address] [place] [address] Vit B12on 01-16-2024 Cobalamin (Vitamin B12) [Mass/Vol] 213 pg/mL Normal 50-1500 [facility] Comment on above: Performed By: #### 2 475493, 5765187, 5134387, 1386607, 6552475, 6661347, 6111373, 97157699, 093149756 ####[facility] [address] [place] [address] 36on 01-10-2024 36 Message sent from patient to my email: Kg Mesa hope all is well, I forgot to ask if I???m 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 Some things I???ve read are telling me not to?? Marilyn, are you able to advise on this? Thanks. Normal [facility] Physician Referralon 024 Physician Referral [id number] .00TIFF Normal [facility] Office Visiton 12-29-2023 Follow-up visit [id number] Marcelle Deutsch 1960 M Date Provider Department Center 12/29/2023 PARISA MUNGUIA Family History Problem Relation Age of Onset Coronary artery disease Father Atrial fibrillation Father Heart attack Brother Family Status - Relation Status Age at Father Brother Level of Service:02477 NE OFFICE/OUTPATIENT ESTABLISHED MOD MDM 30 MIN Normal [facility] ED Pat Eduon 12-28-2023 ED Pat Edu Cardiovascular Coronary Artery Disease, Male Coronary artery disease (CAD) is a condition in which the arteries that lead to the heart (coronary arteries) become narrow or blocked. The narrowing or blockage can lead to decreased blood flow to the heart. Prolonged reduced blood flow can cause a heart attack (myocardial infarction, or MD). This condition may also be called coronary [...] these instructions at home: Medicines ? Take jtdb-rmm-tcmxrjh and prescription medicines only as told by [...] use any (more content not included)... Normal [facility] 12-28-19 Population Health Case Information Case Priority: None Programs: -- Referral Source: Head Of Art Referral Reason: Disease management Case Type: Chronic Care Management Risk Score: -- Case Status: Active (December 28, 2023) Date Assigned: December 19, 2023 Assigned By: Christian Hernandez Date Enrolled: December 28, 2023 Assigned Primary Personnel: Christian Hernandez Assigned Secondary Personnel: -- Case Physician: -- Problems Ongoing AAA (abdominal aortic aneurysm) Aortic aneurysm BMI 28.0-28.9,adult BPH (benign prostatic hyperplasia) 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 material - - Not done [...] - Comments: - - 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 Will have labs completed with [facility]. Colonoscopy up to date, due for repeat 2025. Reviewed pain symptoms with patient: Patient reports left shoulder and right hip pain, takes Tylenol and used Biofreeze as needed, states effective. Patient does home exercises, states it is beneficial. Reviewed all outside providers that patient follows. Last visit summary notes available in chart and/or have been requested. Follow up scheduled, TBD AWV has been scheduled, 12/17/2024 Abnormal findings [...] with CDC recommendation that everyone born from [birth year] get tested for Hepatitis C. This is [...] (more content not included)... Normal [facility] Comment on above: Result Comment: Elec tronically Signed By: Km NIELSON, Ursula Porter\.br\Date and Time Signed: 12/22/23 11:50 EST\.br\Electronically Co-Signed By: Christian Hernandez\.br\Date and Time Co-Signed: 12/18/23 15:00 EST .Interpretation:on HCV Ab IA Ql Comment Invalid Interpretation Code [facility] Comment on above: Result Comment: Not infected with HCV unless early or acute infection is suspected (which may be delayed in an immunocompromised individual), or other evidence exists to indicate HCV infection. Performed at: [facility] [address] [place] [address] [id number] PhD Nicole Fang Performed By: #### 2 [id number], 8198531, 3722779, 1030338848, 342016214, 33177827, 7588209 ####[facility] [address] [place] [address] HCV Antibody RFX to Quant PC Kavin 12-20-2023 HCV IgG IA Ql Non-Reactive Invalid Interpretation Code Non Reactive [facility] Comment on above: Result Comment: [facility]f [facility]med at: [facility] [address] [place] [address] [id number] PhD Nicole Fang Performed By: #### 2 100530620, 8528621, 8094557, 9925061996, 826353903, 63680537, 3954801 ####[facility] [address] [place] [address] Screenson 12-19-2023 Screens [id number] .00TIFF Normal [facility] Ambulatory Visit Summaryon 0 12-18-2023 Ambulatory Visit [...] 28.0-28.9,adult BPH (benign prostatic hyperplasia) 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 Normal [facility] CBC w/ Auto Diffon 4 Anisocytosis Ql (Bld) PRESENT Invalid Interpretation Code [facility] Comment on above: Performed By: #### 2 159055956, 2953495, 0999401, 0586726735, 911925574, 14340331, 6303344 ####[facility] [address] [place] [address] Basophils/100 WBC (Bld) 0.6 % Normal 0.0-2.0 [facility] Comment on above: Performed By: #### 2 443328852, 3724893, 0365335, 0532271615, 036415095, 97862260, 6661661 ####[facility] [address] [place] [address] Basophils/Leukocytes Auto (Bld) [Pure # fraction] 0.0 E9/L Normal 0.0-0.2 [facility] Comment on above: Performed By: #### 2 347653736, 7739100, 5496248, 7487257511, 211083518, 12845473, 0909946 ####[facility] [address] [place] [address] Eosinophils (Bld) [#/Vol] 0.1 E9/L Normal 0.0-0.5 [facility] Comment on above: Performed By: #### 2 893944116, 3765781, 7728774, 4061944472, 423256751, 33558440, 1665954 ####[address] [place] [address] Eosinophils/100 WBC (Bld) 2.7 % Normal 0.0-8.0 [facility] Comment on above: Performed By: #### 2 073871663, 7061663, 9169341, 1720057964, 814066280, 37685989, 6889503 ####[address] [address] Erythrocyte distribution width (RBC) [Ratio] 17.2 % High 10.9-14.2 [facility] Comment on above: Performed By: #### 2 424360427, 3193809, 1497728, 3853316343, 298956926, 00090351, 1664545 ####[address] [address] Hematocrit (Bld) [Volume fraction] 34.4 % Low 37.7-49.0 [facility] Comment on above: Performed By: #### 2 731787018, 8034109, 2458235, 7932578474, 428296770, 39434703, 6176624 ####[address] [place] [address] Hemoglobin (Bld) [Mass/Vol] 10.9 g/dL Low 13.5-17.5 [facility] Comment on above: Performed By: #### 2 374299526, 7850752, 9161946, 2815857707, 133959168, 29471133, 8755057 ####[address] [place] [address] Hypochromia Auto Ql (Bld) PRESENT Invalid Interpretation Code [facility] Comment on above: Performed By: #### 2 999547244, 7674170, 9238676, 1979545583, 281996882, 39295693, 9700115 ####[address] [address] Lymphocytes (Bld) [#/Vol] 1.3 E9/L Normal 1.0-4.0 [facility] Comment on above: Performed By: #### 2 474490544, 0750937, 0751678, 2377280115, 957925611, 26290848, 9335011 ####[address] [address] Lymphocytes/100 WBC (Bld) 25.8 % Normal 14.0-50.0 [facility] Comment on above: Performed By: #### 2 385313028, 0746735, 6516200, 0295768948, 482015197, 03038270, 1632930 ####[facility] [address] [place] [address] MCH (RBC) [Entitic mass] 23.3 pg Low 27.0-34.0 [facility] Comment on above: Performed By: #### 2 616320760, 8713100, 2536019, 7363887053, 041126802, 60437436, 4168179 ####[facility] [address] [place] [address] MCHC (RBC) [Mass/Vol] 31.6 g/dL Normal 31.4-36.0 [facility] Comment on above: Performed By: #### 2 677307390, 7693295, 8822829, 2766805189, 418024519, 48413384, 5836893 ####[address] [address] MCV (RBC) [Entitic vol] 73.6 fL Low 80.0-100.0 [facility] Comment on above: Performed By: #### 2 486097878, 9073631, 4169416, 0181594159, 080861326, 99875080, 9337471 ####[address] [address] Microcytes Ql (Bld) PRESENT Invalid Interpretation Code [facility] Comment on above: Performed By: #### 2 407528352, 1623783, 8284804, 2134722944, 598416774, 85958076, 9884193 ####[address] [address] Monocytes (Bld) [#/Vol] 0.4 E9/L Normal 0.2-1.0 [facility] Comment on above: Performed By: #### 2 122128537, 8667344, 6573981, 2134100340, 571120968, 04141481, 9604708 ####[address] [address] Neutrophils (Bld) [#/Vol] 3.2 E9/L Normal 2.0-7.5 [facility] Comment on above: Performed By: #### 2 472915324, 0976908, 4490266, 4697557171, 712048926, 51543070, 4678384 ####[address] [address] Neutrophils/100 WBC (Bld) 63.4 % Normal 36.0-75.0 [facility] Comment on above: Performed By: #### 2 860729429, 4251659, 3077311, 1973986661, 975486153, 68305450, 3122135 ####[address] [address] Ovalocytes LM Ql (Bld) PRESENT Invalid Interpretation Code [facility] Comment on above: Performed By: #### 2 570838078, 0541815, 9284831, 6030828047, 674687152, 58666535, 3037414 ####[address] [place] [address] Platelet mean volume (Bld) [Entitic vol] 10.4 fL Normal 6.4-10.8 [facility] Comment on above: Performed By: #### 2 406923113, 5797337, 8413700, 7182595531, 698753091, 32072390, 4136956 ####[address] [address] Platelets (Bld) [#/Vol] 137.0 E9/L Low 150.0-500.0 [facility] Comment on above: Performed By: #### 2 512218044, 6710826, 4018862, 3099720309, 652446121, 17861077, 4829233 ####[address] [address] Poikilocytosis Auto Ql (Bld) PRESENT Invalid Interpretation Code [facility] Comment on above: Performed By: #### 2 002790201, 7046734, 4228960, 9777068433, 793902228, 83481722, [id number] ####[address] [address] RBC (Bld) [#/Vol] 4.7 E12/L Normal 4.3-5.9 [facility] Comment on above: Performed By: #### 2 [id number], 1940370, 5751631, 0650970823, 431941448, 37574764, 8772125 ####[address] [address] WBC corrected for nucl RBC Auto (Bld) [#/Vol] 5.0 E9/L Normal 4.0-11.0 [facility] Comment on above: Performed By: #### 2 [id number], 7192281, 4467949, 3085018305, 549081360, 40559394, 9048045 ####[address] [address] CHEMISTRYOrdered By: SYSTEM SYSTEM on 12-18-2023 Albumin [Mass/Vol] 4.4 g/dL Normal 3.3 - 5.0 gm/dL Remisol Chem Albumin/Globulin [Mass ratio] 2.6 {ratio} High [...] Bilirubin [Mass/Vol] 1.7 mg/dL High 0.0 - 1 .1 mg/dL Remisol Chem Calcium [Mass/Vol] 9.3 mg/dL [...] 26 mmol/L Normal 21 - 31 mmol/L Remisol Chem Creatinine [Mass/Vol] 0.8 mg/dL Normal 0.5 - 1.3 mg/dL Remisol Chem eGFR 98 mL/min/1.73 m2 Normal >=59mL/min /1 .73 m2 Remisol Chem Globulin (S) [Mass/Vol] 1.7 g/dL Normal 1.4 - 4.0 gm/dL Remisol Chem Glucose [Mass/Vol] 124 mg/dL Normal 55 - 199 mg/dL Remisol Chem Potassium [Moles/Vol] 4.0 mmol/L Normal 3.5 - 5.3 mmol/L Remisol Chem Protein [Mass/Vol] 6.1 g/dL Normal 6.0 - 7.8 gm/dL Remisol Chem Sodium [Moles/Vol] 138 mmol/L Normal 135 - 145 mmol/L [facility] Chem Triglyceride [Mass/Vol] 112 mg/dL Normal <=149mg/dL Remisol Chem Urea nitrogen [Mass/Vol] 8 mg/dL Normal 5 - 21 mg/dL [facility] Chem Urea nitrogen/Creatinine [Mass ratio] 10 mg/mg Normal 10 - 20 Remisol Chem CHEMISTRYOrdered By: Bobby roman on 12-18-2023 HbA1c (Bld) [Mass fraction] 6.9 % High <=5.9% [facility] ChemAutoSS CMPon 12-18-2023 Albumin [Mass/Vol] 4.4 g/dL Normal 3.3-5.0 [facility] Comment on above: Performed By: #### 2 [id number], 3041699, 6587267, 8025349213, 611152359, 75695378, 5204336 ####[facility] [address] [place] [address] Albumin/Globulin (S) [Mass conc ratio] 2.6 High 1.1-2.2 [facility] Comment on above: Performed By: #### 2 [id number], 2499330, 6650350, 5799674565, 887852869, 27581025, 9920063 ####[facility] [address] [place] [address] ALP [Catalytic activity/Vol] 49 Int._Unit/L Normal 21-98 [facility] Comment on above: Performed By: #### 2 [id number], 4074507, 9491898, 9766219813, 040665850, 45286743, 7515332 ####[facility] [address] [place] [address] ALT No additional P-5'-P [Catalytic activity/Vol] 20 Int._Unit/L Normal 6-46 [facility] Comment on above: Performed By: #### 2 [id number], 7549842, 2957572, 9023841134, 783458645, 69030359, 6376703 ####[facility] [address] [place] [address] Anion gap [Moles/Vol] 13 mmol/L Normal 6-16 [facility] Comment on above: Performed By: #### 2 [id number], 1345202, 0327364, 4695080764, 059678482, 54491784, 0781161 ####[facility] [address] [place] [address] AST [Catalytic activity/Vol] 17 Int._Unit/L Normal 5-43 [facility] Comment on above: Performed By: #### 2 [id number], 2767640, 7610861, 3298066685, 501674882, 14861920, 0087166 ####[address] [place] [address] Bilirubin [Mass/Vol] 1.7 mg/dL High 0.0-1.1 [facility] Comment on above: Performed By: #### 2 [id number], 7852240, 9468954, 0540884042, 611976482, 11467619, 4036885 ####[facility] [address] [place] [address] Calcium [Mass/Vol] 9.3 mg/dL Normal 8.9-11.1 [facility] Comment on above: Performed By: #### 2 750207027, 5751142, 9336515, 7981152721, 763827464, 63088130, 5330937 ####[facility] [address] [place] [address] Chloride [Moles/Vol] 103 mmol/L Normal 101-111 [facility] Comment on above: Performed By: #### 2 [id number], 0265338, 2739790, 0467679894, 033060646, 77060210, 0964849 ####[facility] [address] [place] [address] CO2 [Moles/Vol] 26 mmol/L Normal 21-31 [facility] Comment on above: Performed By: #### 2 101594403, 2256314, 9694496, 5571570374, 766553350, 51621778, 0039310 ####[facility] [address] [place] [address] Creatinine [Mass/Vol] 0.8 mg/dL Normal 0.5-1.3 [facility] Comment on above: Performed By: #### 2 495394715, 7303826, 0141857, 9420733877, 140684491, 01046466, 7180047 ####[facility] [address] [place] [address] Globulin (S) [Mass/Vol] 1.7 g/dL Normal 1.4-4.0 [facility] Comment on above: Performed By: #### 2 [id number], 5769057, 9548911, 9139217018, 732585083, 42690329, 5530296 ####[facility] [address] [place] [address] Glucose [Mass/Vol] 124 mg/dL Normal 55-199 [facility] Comment on above: Performed By: #### 2 426149529, 1762750, 1523607, 5852021617, 058955963, 07705455, 1039200 ####[facility] [address] [place] [address] Potassium [Moles/Vol] 4.0 mmol/L Normal 3.5-5.3 [facility] Comment on above: Performed By: #### 2 878283011, 8845169, 0617044, 2597398810, 929589655, 69140475, 3285906 ####[facility] [address] [place] [address] Protein [Mass/Vol] 6.1 g/dL Normal 6.0-7.8 [facility] Comment on above: Performed By: #### 2 214186729, 6474658, 0922617, 9542207498, 532862580, 88802757, 0523727 ####[facility] [address] [place] [address] Sodium [Moles/Vol] 138 mmol/L Normal 135-145 [facility] Comment on above: Performed By: #### 2 000662262, 6702790, 2096670, 4892082057, 619476436, 28689673, 3638821 ####[facility] [address] [place] [address] Urea nitrogen [Mass/Vol] 8 mg/dL Normal 5-21 [facility] Comment on above: Performed By: #### 2 638111264, 1387137, 2954554, 4370681623, 946451472, 14736323, 8066940 ####[facility] [address] [place] [address] Urea nitrogen/Creatinine [Mass ratio] 10 No Units Normal 10-20 [facility] Comment on above: Performed By: #### 2 957604351, 4705549, 3436708, 9252540985, 387612929, 09857389, 8130798 ####[facility] [address] [place] [address] HEMATOLOGYOrdered By: SYSTEM SYSTEM on 12-18-2023 Anisocytosis [...] 4.7 E12/L Normal 4.3 - 5.9 E12/L Remisol Heme WBC corrected for nucl RBC Auto (Bld) [#/Vol] 5.0 E9/L Normal 4.0 - 11.0 E9/L Remisol Heme [id number] 12-18-2023 HbA1c (Bld) [Mass fraction] 6.9 % High <=5.9 [facility] Comment on above: Performed By: #### 2 200470641, 4827627, 5884968, 7555544737, 391501892, 16897934, 3774184 ####[facility] [address] [facility] [place] [address] Lipid Panelon 12-18-2023 Cholesterol [Mass/Vol] 118 mg/dL Low 120-200 [facility] Comment on above: Performed By: #### 2 [id number], 1461922, 8287553, 0125834265, 049129366, 51337931, 3204423 ####[facility] [address] [place] [address] Cholesterol in HDL [Mass/Vol] 37 mg/dL Invalid Interpretation Code [facility] Comment on above: Result Comment: '>= 60 LOW RISK' '<= 40 HIGH RISK' Performed By: #### 2 914478814, 9702969, 1903960, 8273532193, 699873763, 39264907, 6078844 ####[facility] [address] [place] [address] Cholesterol in LDL [Mass/Vol] 72 mg/dL Normal <=129 [facility] Comment on above: Performed By: #### 2 093904473, 1955180, 9089369, 4671413380, 879935333, 78785875, 2626375 ####[facility] [address] [place] [address] Cholesterol in VLDL [Mass/Vol] 22 mg/dL Normal 7-40 [facility] Comment on above: Performed By: #### 2 247089974, 0144690, 4332726, 7909404875, 016405138, 52733380, 2467061 ####[facility] [address] [place] [address] Triglyceride [Mass/Vol] 112 mg/dL Normal <=149 [facility] Comment on above: Performed By: #### 2 547750117, 1186673, 2166577, 6013248449, 418015017, 83915825, 3798513 ####[facility] [address] [place] [address] Patient Educationon 12-18-19 Patient Education Cardiovascular Atrial [...] signals of the heart. ? An ambulatory manager cardiac to record your heart's activity for [...] (more content not included)... Normal [facility] eGFRon 12-18-2023 eGFR 98 mL/min/1.73 m2 Normal >=59 [facility] Comment on above: Order Comment: Order added by Discern Expert. Performed By: #### 2 [id number], 2029094, 9523125, 2926652584, 344026864, 81187302, 6673349 ####[facility] [address] [place] [address] 36on 11-20-2023 36 Patient emailed me and asked if we had samples of Xarelto. Since he's on Medicare now it's very expensive for him. We haven't had a rep bring samples of Xarelto in about 1 year. I mentioned switching to Eliquis, since we do get samples of that. Ok to send RX for Eliquis 5mg bid? Please advise. Thanks! Normal [facility] URINALYSISOrdered By: Isaiah Garcia on 08-04-2023 Bacteria [...] (Urine sed) [#/Area] 0-2 /HPF Normal 0-2/HPF [facility]A Aut o SS Glucose Test strip (U) [Mass/Vol] Negative (08/04/23 2:10 PM) Normal Negative [facility] UA Auto SS Hemoglobin Ql (U) Negative (08/04/23 2:10 PM) Normal Negative [facility] UA Auto SS Ketones (U) [Mass/Vol] Negative (08/04/23 2:10 PM) Normal Negative [facility] UA Auto SS Eads.plasma/Eads .RBC (Bld) [Mass ratio] 0-3 /HPF Normal 0-3/HPF [facility] UA Auto SS Nitrite Ql (U) Negative (08/04/23 2:10 PM) Normal Negative [facility] UA Auto SS pH (U) 6.0 *NA* (08/04/23 2:10 PM) Invalid Interpretation Code 5.0 - 9.0 [facility] Auto SS Protein (U) [Mass/Vol] Negative (08/04/23 2:10 PM) Normal Negative [facility] UA Auto SS Specific gravity (U) [Rel density] <=1.005 *NA* (08/04/23 2:10 PM) Invalid Interpretation Code 1.005 - 1.030 [facility] UA Auto SS UA Spec Desc Clean Catch (08/04/23 2:10 PM) Normal [facility] UA Auto SS Urobilinogen Qn (U) 0.2189933 {Denny'U}/dL Normal 0.0 - 1.0 EU/dL [facility] UA Auto SS WBC Auto Ql (U) Negative (08/04/23 2:10 PM) Normal Negative [facility] UA Auto SS WBC LM.HPF (Urine sed) [#/Area] 0-5 /HPF Normal 0-5/HPF [facility] UA Auto SS CHEMISTRYOrdered By: Julien merida on 07-04-2023 Albumin DL <= 20 mg/L (U) [Mass/Vol] microgram/mL Normal 0.0 - 19.0 mcg/mL [facility] Remisol Albumin Elph (U) [Mass fraction] mg/dL Invalid Interpretation Code [facility] Remisol Creatinine (U) [Mass/Vol] 17.7 mg/dL Invalid Interpretation Code [facility] Remisol U Prot/Creat Ratio UTC Invalid Interpretation Code 0.00 - 200.00 [facility] Remisol CHEMISTRYOrdered By: Bobby roman on 07-03-2023 HbA1c (Bld) [Mass fraction] 6.8 % High <=5.9% [facility] ChemAutoSS CBC AUTO DIFFon 01-04-2023 BASO # 0.1 103/ul Normal 0.0-0.1 [facility] Comment on above: Performed By: #### C BC #### [facility] [address] [address] [address] Lucia San Basophils/100 WBC (Bld) 1.0 % Normal 0.2-2.0 [facility] Comment on above: Performed By: #### C BC #### [facility] [address] [address] [address] Lucia San EO # 0.1 103/ul Normal 0.0-0.7 [facility] Comment on above: Performed By: #### C BC #### [facility] [address] [address] [address] Lucia San Eosinophils/100 WBC (Bld) 2.5 % Normal 0.9-7.0 [facility] Comment on above: Performed By: #### C BC #### [facility] [address] [address] [address] Lucia San Erythrocyte distribution width (RBC) [Ratio] 17.3 % Critically high 11.0-15.0 [facility] Comment on above: Performed By: #### C BC #### [facility] [address] [address] [address] Lucia San Hematocrit (Bld) [Volume fraction] 35.2 % Critically low 42.0-54.0 [facility] Comment on above: Performed By: #### C BC #### [facility] [address] [address] [address] Lucia San Hemoglobin (Bld) [Mass/Vol] 11.3 g/dL Critically low 14.0-18.0 [facility] Comment on above: Performed By: #### C BC #### [facility] [address] [address] [address] Lucia San IG # 0.02 10e3/ul Normal 0.00-0.03 [facility] Comment on above: Performed By: #### C BC #### [facility] [address] [place] [address] Dr. Lucia San IG % 0.4 % Normal 0.0-0.5 [facility] Comment on above: Performed By: #### C BC #### [facility] [address] [place] [address] Dr. Lucia San LYMPH # 1.6 103/ul Normal 1.2-3.8 [facility] Comment on above: Performed By: #### C BC #### [facility] [address] [place] [address] Dr. Lucia San Lymphocytes/100 WBC (Bld) 30.9 % Normal 20.5-60.0 [facility] Comment on above: Performed By: #### C BC #### [facility] [address] [place] [address] Dr. Lucia San MANUAL DIFF REQ NO Normal [facility] Comment on above: Performed By: #### C BC #### [facility] [address] [place] [address] Dr. Lucia San MCH (RBC) [Entitic mass] 23.9 pg Critically low 25.9-34.0 [facility] Comment on above: Performed By: #### C BC #### [facility] [address] [place] [address] Dr. Lucia San MCHC (RBC) [Mass/Vol] 32.1 g/dL Normal 29.9-35.2 [facility] Comment on above: Performed By: #### C BC #### [facility] [address] [place] [address] Dr. Lucai San MCV (RBC) [Entitic vol] 74.6 fL Critically low 80.0-94.0 [facility] Comment on above: Performed By: #### C BC #### [facility] [address] [place] [address] Dr. Lucia San MONO # 0.5 103/ul Normal 0.3-0.8 [facility] Comment on above: Performed By: #### C BC #### [facility] [address] [address] [address] Lucia San Monocytes/100 WBC (Bld) 9.1 % Normal 1.7-12.0 [facility] Comment on above: Performed By: #### C BC #### [facility] [address] [address] [address] Lucia San NEUT # 2.9 103/ul Normal 1.4-6.5 [facility] Comment on above: Performed By: #### C BC #### [facility] [address] [place] [address] Dr. Lucia San Neutrophils/100 WBC (Bld) 56.1 % Normal 43.0-75.0 [facility] Comment on above: Performed By: #### C BC #### [facility] [address] [place] [address] Dr. Lucia San Platelet mean volume (Bld) [Entitic vol] 11.6 fL Normal 9.5-13.5 [facility] Comment on above: Performed By: #### C BC #### [facility] [address] [place] [address] Dr. Lucia San PLT 172 103/ul Normal 150-[address] [facility] Comment on above: Performed By: #### C BC #### [facility] [address] [place] [address] Dr. Lucia San RBC 4.72 106/ul Normal 4.70-6.[address] [facility] Comment on above: Performed By: #### C BC #### [facility] [address] [place] [address] Dr. Lucia San WBC 5.2 103/ul Normal 4.0-11.[address] [facility] Comment on above: Performed By: #### C BC #### [facility] [address] [place] [address] Dr. Lucia San ECHOCARDIO M/2D COMPLETEon 0 01-04-2023 ECHOCARDIO M/2D COMPLETE Patient: MARCELLE DEUTSCH Exam Date: 01/04/2023 : 1960 Gender:M Ordering : DR BLANKA GORE M.D. Admission #: [id number] Family : Order #: [id number] CLICK HERE TO VIEW EXAM ECHOCARDIOGRAM REPORT [...] Area (VTI): 3.28 cm2, 3.28 cm2 Deceleration [place]: 0.48 m/s2 Pressure Half-Time: 1.33 s Peak [...] [place] M.D. on 01/04/2023 at 15:00 Normal [facility] GLYCOHEMOGLOBIN A1Con 2022 ADA RECOMMENDATION SEE BELOW Normal [facility] Comment on above: Result Comment: ADA RECOMMENDED LIMIT 4.0 - 6.0 ADA THERAPEUTIC TARGET < 7.0 ACTION SUGGESTED > 7.0 Performed By: #### A 1C #### [facility] [address] [place] [address] Dr. Lucia San HbA1c (Bld) [Mass fraction] 6.9 % Critically high 4.5-6.2 [facility] Comment on above: Performed By: #### A 1C #### [facility] [address] [address] [address] Lucia San LIPID PROFILEon 01-04-2023 CHOL-HDL RATIO NORM SEE BELOW Normal [facility] Comment on above: Result Comment: 3.3 - 4.4 LOW RISK 4.4 - 7.1 AVERAGE RISK 7.1 - 11.0 MODERATE RISK >11.0 HIGH RISK Performed By: #### L IPID #### [facility] [address] [address] [address] Lucia San Cholesterol [Mass/Vol] 140 mg/dL Normal <=200 [facility] Comment on above: Performed By: #### L IPID #### [facility] [address] [address] [address] Lucia San Cholesterol in HDL [Mass/Vol] 37 mg/dL Critically low 40-60 [facility] Comment on above: Performed By: #### L IPID #### [facility] [address] [address] [address] Lucia San Cholesterol in LDL [Mass/Vol] 80.2 mg/dL Normal [facility] Comment on above: Performed By: #### L IPID #### [facility] [address] [address] [address] Lucia San Cholesterol.total/Chol esterol in HDL [Mass ratio] 3.8 {ratio} Normal [facility] Comment on above: Performed By: #### L IPID #### [facility] [address] [address] [address] Lucia San HDL NORMAL > or = 60 mg/dl - LO W CARDIOVASCULAR RISK <40 mg/dl - HIGH CARDIOVASCULAR RISK Normal [facility] Comment on above: Performed By: #### L IPID #### [facility] [address] [address] [address] Lucia San LDL CALC NORMAL SEE BELOW Normal [facility] Comment on above: Result Comment: <100 mg/dl OPTIMAL 100 - 129 mg/dl NEAR OR ABOVE OPTIMAL 130 - 159 mg/dl BORDERLINE HIGH 160 - 189 mg/dl HIGH >190 mg/dl VERY HIGH Performed By: #### L IPID #### [facility] [address] [place] [address] Dr. Lucia San Triglyceride [Mass/Vol] 114 mg/dL Normal <=150 [facility] Comment on above: Performed By: #### L IPID #### [facility] [address] [place] [address] Dr. Lucia San VLDL CALC 22.8 mg/dL Normal [facility] Comment on above: Performed By: #### L IPID #### [facility] [address] [place] [address] Dr. Lucia San MICROALBUMIN, RAND URon - mALB 1.5 mg/L Normal <=30.0 [facility] Comment on above: Performed By: #### M ALBR #### [facility] [address] [place] [address] Dr. Lucia San NM STRESS/REST MULTIon 01-04 NM STRESS/REST MULTI Patient: MARCELLE DEUTSCH Exam Date: 01/04/2023 : 1960 Gender:M Ordering : DR BLANKA GORE M.D. Admission #: [id number] Family : Order #: [id number] CLICK HERE TO VIEW EXAM RADIOLOGY REPORT [...] LOCATION: Basal inferior. Mid-anterior. Mid-inferior. Apical inferior. [place]. SIZE: Large (5 or more segments). SEVERITY: [...] Guzman MD on 01/04/2023 at 11:17 Normal [facility] PROF 14(COMP METB)on 023 Albumin [Mass/Vol] 4.1 g/dL Normal 3.4-5.0 [facility] Comment on above: Performed By: #### C MP #### [facility] [address] [place] [address] Dr. Lucia San Albumin/Globulin [Mass ratio] 1.7 {ratio} Normal [facility] Comment on above: Performed By: #### C MP #### [facility] [address] [place] [address] Dr. Lucia San ALP [Catalytic activity/Vol] 51 U/L Normal 46-116 [facility] Comment on above: Performed By: #### C MP #### [facility] [address] [place] [address] Dr. Lucia San ALT [Catalytic activity/Vol] 49 U/L Normal 16-63 [facility] Comment on above: Performed By: #### C MP #### [facility] [address] [place] [address] Dr. Lucia San Anion gap [Moles/Vol] 16.6 mmol/L Normal [facility] Comment on above: Performed By: #### C MP #### [facility] [address] [place] [address] Dr. Lucia San AST [Catalytic activity/Vol] 28 U/L Normal 15-37 [facility] Comment on above: Performed By: #### C MP #### [facility] [address] [address] [address] Lucia San Bilirubin [Mass/Vol] 1.7 mg/dL Critically high 0.2-1.0 [facility] Comment on above: Performed By: #### C MP #### [facility] [address] [address] [address] Lucia San Calcium [Mass/Vol] 9.2 mg/dL Normal 8.5-10.1 [facility] Comment on above: Performed By: #### C MP #### [facility] [address] [place] [address] Dr. Lucia San Chloride [Moles/Vol] 100 mmol/L Normal 98-107 [facility] Comment on above: Performed By: #### C MP #### [facility] [address] [place] [address] Dr. Lucia San CO2 [Moles/Vol] 25.9 mmol/L Normal 21.0-32.0 [place] Comment on above: Performed By: #### C MP #### [facility] [address] [place] [address] Dr. Lucia San Creatinine [Mass/Vol] 1.03 mg/dL Normal 0.70-1.30 [facility] Comment on above: Performed By: #### C MP #### [facility] [address] [place] [address] Dr. Lucia San EGFR-AF LITHUANIAN >60 Normal >=[address] [facility] Comment on above: Performed By: #### C MP #### [facility] [address] [place] [address] Dr. Lucia San EGFR-NON AF LITHUANIAN >60 Normal >=60 [facility] Comment on above: Performed By: #### C MP #### [facility] [address] [place] [address] Dr. Lucia San Globulin (S) [Mass/Vol] 2.4 g/dL Normal [facility] Comment on above: Performed By: #### C MP #### [facility] [address] [place] [address] Dr. Lucia San Glucose [Mass/Vol] 151 mg/dL Normal [facility] Comment on above: Performed By: #### C MP #### [facility] [address] [place] [address] Dr. Lucia San Performed By: #### A 1C #### [facility] [address] [place] [address] Dr. Lucia San Potassium [Moles/Vol] 4.5 mmol/L Normal 3.5-5.1 [facility] Comment on above: Performed By: #### C MP #### [facility] [address] [place] [address] Dr. Lucia San Protein [Mass/Vol] 6.5 g/dL Normal 6.4-8.2 [facility] Comment on above: Performed By: #### C MP #### [facility] [address] [place] [address] Dr. Lucia San Sodium [Moles/Vol] 138 mmol/L Normal 136-145 [facility] Comment on above: Performed By: #### C MP #### [facility] [address] [place] [address] Dr. Lucia San Urea nitrogen [Mass/Vol] 13.0 mg/dL Normal 7.0-18.0 [facility] Comment on above: Performed By: #### C MP #### [facility] [address] [place] [address] Dr. Lucia San Urea nitrogen/Creatinine [Mass ratio] 12.6 mg/mg Normal [facility] Comment on above: Performed By: #### C MP #### [facility] [address] [place] [address] Dr. Lucia Rondon 02-03-2022 CNOV Office Visit (CARDMN ) MARCELLE DEUTSCH ([id number]) 1960 M Date Time Provider Department 02/03/22 8:30 AM JANNET GONZALEZ During your visit today, we recorded the following information about you: Pulse Blood pressure Weight Height 60/minute 180/76 85.3 kg 1.765 m Jannet Gonzalez MD 02/03/2022 9:58 AM Signed [facility] [place] Emiliano Plascencia Department of Cardiovascular Medicine SECTION OF CARDIAC PACING and ELECTROPHYSIOLOGY OUTPATIENT VISIT DATE February 03, 2022 OUTPATIENT VISIT TYPE CONSULTATION PRIMARY CARE PHYSICIAN: Mark Browning DO [address] [place] [address] CHIEF COMPLAINT: PAF HISTORY OF PRESENT ILLNESS [...] he is in SR. He denies syncope. [id number] 3 (HTN, CAD, DM) tolerating Xarelto PAST MEDICAL HISTORY Diagnosis Date - Atrial fibrillation (HCC) 2013 - CAD (coronary artery disease) 09/02/2014 - Diabetes mellitus (HCC) - Dyslipidemia - Hypertension - Metabolic syndrome PAST SURGICAL HISTORY Procedure Laterality Date - AFIB PVI W/COMPL EP STUDY 07/10/2017 - CARDIAC CATH 09/02/2014 CAT SCAN TECH of proximal RCA. 70% ostial D1. Preserved [...] habits-No, Blood in stool, Dark black stools-No. Neurological/Psychiat [place]: Weakness, paralysis-No, Numbness-yes, Tingling-yes, Tremor-No, Nervousness or anxiety-No, Depressed mood-No, Memory loss-No. Skin: Rash-No, Itching-No. Hematological: Easy bruising-yes, Easy bleeding-yes. Endocrine: Heat or cold intolerance-yes, Excessive sweating-No, Frequen (more content not included)... Normal [facility] CNCOon 12-04-2021 CNCO Letter Text Normal [facility] Dermatopathologyon 0 Dermatopathology [facility] Dermatopathology Laboratory [address] [place] [id number] DERMATOPATHOLOGY REPORT Name:MARCELLE DEUTSCH. Rec #. [id number] Location: [facility] Date of Procedure: 10/02/2020 Race: Unknown Date Received: 10/06/2020 /Sex: 1960 (Age: 60) / M Date Reported: 10/08/2020 Other: Submitting Physician:SONIA GREEN APRN, PROBATION AND PATROL AGENT-C FINAL DIAGNOSIS A. SKIN, (R) NECK, BIOPSY: [...] or group listed as making the Final Interpretation/Diagno sis certifies that they have reviewed this case. Clinical History: A: 0.8x0.5cm ISK vs. other. Biopsy. 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 Biopsy. Specimens Submitted As: A: SKIN, (R) NECK, BIOPSY B: SKIN, MID BACK, BIOPSY Gross Description: A: Received in formalin is a mayers piece of skin measuring [id number] in aggreg (small). The specimen is inked and embedded in toto. B: Received in formalin is a mayers piece of skin measuring [id number]. The specimen is inked and embedded in toto. ink/10/06/2020 Microscopic Description: A,B: Microscopic examination performed. Normal [facility] Comment on above: Performed By: #### D #### Dermatopathology Vital Signs Date Time Vital Sign Value Performing Clinician Facility 09-09-2024 11:18-0500 Body temperature 98.06 [degF] [facility] 09-09-2024 11:18-0500 Diastolic blood pressure 87 mm[Hg] [facility] 09-09-2024 11:18-0500 Heart rate 72 /min [facility] [employer] [facility] 09-09-2024 11:18-0500 Mean blood pressure 119 mm[Hg] [facility] 09-09-2024 11:18-0500 Respiratory rate 18 /min Ana [employer] [facility] 09-09-2024 11:18-0500 SaO2% (BldA) [Mass fraction] 98 % [facility] [employer] [facility] 09-09-2024 11:18-0500 Systolic blood pressure 183 mm[Hg] [facility] 03-14-2024 10:16-0400 Body temperature 97.52 [degF] Ana [employer] [facility] 03-14-2024 10:16-0400 Diastolic blood pressure 85 mm[Hg] Ana Lingke [facility] 03-14-2024 10:16-0400 Heart rate 59 /min Ana Hubbardboske [facility] 03-14-2024 10:16-0400 Mean blood pressure 116 mm[Hg] Ana Hubbardboske [facility] 03-14-2024 10:16-0400 Respiratory rate 16 /min Ana Spencer [facility] 03-14-2024 10:16-0400 SaO2% (BldA) [Mass fraction] 99 % Ana Lingke [facility] 03-14-2024 10:16-0400 Systolic blood pressure 179 mm[Hg] Ana Hubbardboske [facility] 02-15-2024 13:10-0400 Blood Pressure Location Ana Spencer [facility] 02-15-2024 13:10-0400 Body temperature 98.06 [degF] Ana Lingke [facility] 02-15-2024 13:10-0400 Diastolic blood pressure 61 mm[Hg] Ana Hubbardboske [facility] 02-15-2024 13:10-0400 Heart rate 62 /min Ana Lingke [facility] 02-15-2024 13:10-0400 Mean blood pressure 77 mm[Hg] Ana Hubbardboske [facility] 02-15-2024 13:10-0400 Respiratory rate 16 /min Ana Hubbardboske [facility] 02-15-2024 13:10-0400 SaO2% (BldA) [Mass fraction] 99 % Ana Lingke [facility] 02-15-2024 13:10-0400 Systolic blood pressure 108 mm[Hg] Ana Hubbardboske [facility] 02-08-2024 13:00-0400 Blood Pressure Location Ana Lingke [facility] 02-08-2024 13:00-0400 Body temperature 98.24 [degF] Ana Spencer [facility] 02-08-2024 13:00-0400 Diastolic blood pressure 82 mm[Hg] Ana Hubbardboske [facility] 02-08-2024 13:00-0400 Heart rate 80 /min Ana Lingke [facility] 02-08-2024 13:00-0400 SaO2% (BldA) [Mass fraction] 100 % Ana Spencer [facility] 02-08-2024 13:00-0400 Systolic blood pressure 142 mm[Hg] Ana Lingke [facility] 01-25-2024 08:58-0400 Diastolic blood pressure 82 mm[Hg] Ana Hubbardboske [facility] 01-25-2024 08:58-0400 Heart rate 65 /min Ana Lingke [facility] 01-25-2024 08:58-0400 Mean blood pressure 118 mm[Hg] Ana Hubbardboske [facility] 01-25-2024 08:58-0400 SaO2% (BldA) [Mass fraction] 99 % Ana Hubbardboske [facility] 01-25-2024 08:58-0400 Systolic blood pressure 190 mm[Hg] Ana Demboske [facility] 08-16-2023 08:21-0400 Blood Pressure Location Shelley Lue [facility] 08-16-2023 08:21-0400 Diastolic blood pressure 83 mm[Hg] Shelley Lue [facility] 08-16-2023 08:21-0400 Heart rate 69 /min Shelley Lue [facility] 08-16-2023 08:21-0400 Respiratory rate 16 /min Shelley Lue [facility] 08-16-2023 08:21-0400 Systolic blood pressure 166 mm[Hg] Shelley Lue [facility] Encounters Encounter Date Encounter Type Care Provider Facility Start: 10-24-2024 End: 10-24-2024 ambulatory Ana Spencer Facility:[facility] Start: 10-24-2024 End: 10-24-2024 Patient encounter procedure Ana Spencer [facility] Start: 10-01-2024 End: 10-01-2024 ambulatory [facility] Start: 09-26-2024 End: 10-07-2024 ambulatory MD Ursula Love Facility:[facility] Start: 09-26-2024 End: 09-26-2024 Patient encounter procedure Ana Spencer [facility] Start: 09-10-2024 End: 09-10-2024 ambulatory [facility] Start: 09-09-2024 End: 09-09-2024 ambulatory Ana Spencer Facility:[facility] Start: 09-09-2024 End: 09-09-2024 Patient encounter procedure Ana Spnecer [facility] Start: 09-04-2024 End: 09-04-2024 ambulatory Ana Spencer Facility:[facility] Start: 09-04-2024 End: 09-04-2024 Patient encounter procedure Ana Spencer [facility] Start: 08-29-2024 End: 08-29-2024 ambulatory Ana Spencer Facility:[facility] Start: 08-29-2024 End: 08-29-2024 Patient encounter procedure Ana Spencer [facility] Start: 08-01-2024 End: 08-01-2024 ambulatory Ana Spencer Facility:[facility] Start: 08-01-2024 End: 08-01-2024 Patient encounter procedure Ana Spencer [facility] Start: 08-01-2024 End: 08-01-2024 ambulatory Ursula Love Facility:[facility] Start: 07-31-2024 End: 08-08-2024 ambulatory Ursula Love Facility:[facility] Start: 07-29-2024 End: 07-29-2024 ambulatory Leonora Camacho MD Facility:[facility] Start: 07-12-2024 End: 07-12-2024 ambulatory [facility] Start: 07-04-2024 End: 07-04-2024 ambulatory Ana Spencer Facility:[facility] Start: 07-04-2024 End: 07-04-2024 Patient encounter procedure Ana Spencer [facility] Start: 06-27-2024 End: 07-10-2024 Orders Only Jannet Gonzalez MD Work Phone: Cardiology Comment on above: Atrial fibrillation, unspecified type (HCC) (Primary Dx) Start: 2024 End: 2024 ambulatory Ursula IveyNelly mK Facility:[facility] Start: 06-06-2024 End: 06-06-2024 ambulatory Ana Spencer Facility:[facility] Start: 06-06-2024 End: 06-06-2024 Patient encounter procedure Ana Spencer [facility] Start: 05-09-2024 End: 05-09-2024 ambulatory Ana Spencer Facility:[facility] Start: 05-09-2024 End: 05-09-2024 Patient encounter procedure Ana Spencer [facility] Start: 04-24-2024 End: 05-08-2024 ambulatory Ursula Love Facility:[facility] Start: 04-11-2024 End: 04-11-2024 ambulatory Ana Spencer Facility:[facility] Start: 04-11-2024 End: 04-11-2024 Patient encounter procedure Ana Spencer [facility] Start: 03-26-2024 End: 03-26-2024 ambulatory Ursula IveyNelly Km Facility:[facility] Start: 03-22-2024 End: 04-09-2024 ambulatory Ursula IveyNelly Km Facility:[facility] Start: 03-14-2024 End: 03-14-2024 ambulatory Ana Spencer Facility:[facility] Start: 03-14-2024 End: 03-14-2024 Patient encounter procedure Ana Spencer [facility] Start: 03-12-2024 End: 03-12-2024 ambulatory Ana Spencer Facility:[facility] Start: 03-12-2024 End: 03-12-2024 Patient encounter procedure Ana Spencer [facility] Start: 02-15-2024 End: 02-15-2024 ambulatory Ana Spencer Facility:[facility] Start: 02-15-2024 End: 02-15-2024 Patient encounter procedure Ana Spencer [facility] Start: 02-08-2024 End: 02-08-2024 ambulatory Ana Spencer Facility:[facility] Start: 02-08-2024 End: 02-08-2024 Patient encounter procedure Ana Spencer [facility] Start: 02-01-2024 End: 02-01-2024 ambulatory Ana Spencer Facility:[facility] Start: 02-01-2024 End: 02-01-2024 Patient encounter procedure Ana Spencer [facility] Start: 01-25-2024 End: 02-07-2024 ambulatory Ursula Love Facility:[facility] Start: 01-25-2024 End: 01-25-2024 Patient encounter procedure Ana Spencer [facility] Start: 01-16-2024 End: 01-16-2024 ambulatory Bharath Melton Facility:[facility] Start: 01-16-2024 End: 01-16-2024 Patient encounter procedure Bharath Melton [facility] Start: 12-29-2023 End: 12-29-2023 [facility] Start: 12-28-2023 End: 12-28-2023 ambulatory Ursula Love Facility:[facility] Start: 12-27-2023 End: 12-27-2023 ambulatory Ursula Love Facility:[facility] Start: 12-27-2023 End: 12-27-2023 Patient encounter procedure Ursula Love [facility] Start: 12-19-2023 ambulatory Ursula Love Facility ::[id number] Start: 12-18-2023 End: 12-18-2023 Lab Drop off Ursula Love [facility] Start: 12-18-2023 End: 12-18-2023 ambulatory Ursula Love Facility:[facility] Start: 12-18-2023 End: 12-18-2023 ambulatory Ursula Love Facility:[facility] Start: 10-04-2023 End: 10-04-2023 Patient encounter procedure Jose Luis THOMAS [facility] Start: 08-16-2023 End: 08-16-2023 Patient encounter procedure Shelley Bruce [facility] Start: 08-07-2023 End: 08-07-2023 Patient encounter procedure Ursula Love [facility] Start: 08-04-2023 End: 08-04-2023 Lab Drop off Karen Romano [facility] Start: 07-04-2023 End: 07-04-2023 Lab Drop off Ursula Lvoe [facility] Start: 07-03-2023 End: 07-03-2023 Lab Drop off Ursula Love [facility] Start: 01-04-2023 End: 01-05-2023 ambulatory URSULA LOVE Facility:[facility] Start: 04-01-2022 End: 04-01-2022 Off-Site Ursula Love [facility] Start: 03-30-2022 End: 03-30-2022 Off-Site Ursula Love [facility] Start: 02-03-2022 Orders Only Jannet Timmons [...] (body structure) Ursula Love Tonsillectomy Jose Luis NILJose Manuel Plan of Treatment Date Care Activity Detail Author Start: 01-30-2025 ambulatory Ambulatory Facility:[facility] Start: 12-19-2024 End: 12-19-2024 Patient encounter procedure 12/19/2024 9:15 AM EST Office Visit Cardiology [address] [id number] Jannet Gonzalez MD [address] [place] [address] Paroxysmal atrial fibrillation (HCC) [I48.0] Cardiology Comment on above: Paroxysmal atrial fi brillation (HCC) [I48.0] Start: 12-19-2024 End: 12-19-2024 ambulatory 12/19/2024 8:30 AM EST Results Only Cardiology [address] [place] [address] Paroxysmal atrial fibrillation (HCC) [I48.0] Cardiology Comment on above: Paroxysmal atrial fi brillation (HCC) [I48.0] Start: 12-17-2024 ambulatory Ambulatory Facility:[facility] Start: 06-16-2024 Covid-19 Vaccine () Covid-19 Vaccine () [facility] Start: 06-16-2024 Influenza vaccination Influenza Vacc ine (#1) [facility] Start: 10-16-2023 Advance Directive Discussion Advance Directive Discussion [facility] Start: 2023 Pneumococcal Vaccine : 65+ (1 of 1 - PCV) Pneumococcal Vaccine: 65+ (1 of 1 - PCV) [facility] Start: 07-04-2020 DIABETES SCREEN DIABETES SCREEN [facility] Start: 07-04-2020 Diabetes Screening Diabetes Screenin g [facility] Start: 2018 RSV Vaccine (1 - 1-d ose 60+ series) RSV Vaccine (1 - 1-dose 60+ series) [facility] Start: 2013 PROSTATE CANCER SCREENING DISCUSSION PROSTATE CANCER SCREENING DISCUSSION [facility] Start: 2013 Prostate specific antigen measurement Prostate Cancer Screening Discussion [facility] Start: 2008 SHINGRIX VACCINE (1 of 2) SHINGRIX VACCINE (1 of 2) [facility] Start: 2003 COLOGUARD (FIT-DNA) COLOGUARD (FIT-D NA) [facility] Start: 2003 Colonoscopy COLONOSCOPY [facility] Start: 2003 COLORECTAL CANCER SCREENING COLORECTAL CANCER SCREENING [facility] Start: [address] COLONOGRAPHY [facility] Start: 2003 FECAL OCCULT BLOOD FECAL OCCULT BLOO D [facility] Start: 2003 Screening for malign ant neoplasm of colon [facility] Start: 2003 SIGMOIDOSCOPY SIGMOIDOSCOPY [facility] Start: 1993 Lipid panel Lipid Screening [facility] Start: 1993 LIPID SCREEN LIPID SCREEN [facility] Start: 1977 Urine microalbumin profile [facility] Start: 1976 ANNUAL PCP TEAM EARLY HEAD START DIRECTOR SARAH DISEASE VISIT ANNUAL PCP TEAM CHRONIC DISEASE VISIT [facility] Start: 1976 Anxiety Screening Anxiety Screening [facility] Start: 1976 BP CONTROLLED (<130/80) BP CONTROLLE D (<130/80) [facility] Start: 1976 Depression Screening Depression Scre ening [facility] Start: 1976 Hepatitis B surface antibody level LDL CHOLESTEROL [facility] Start: 1976 HEPATITIS C SCREENING HEPATITIS C [facility] Start: 1976 Hepatitis C screening Hepatitis C Sc [facility] Start: 1976 HIV SCREENING HIV SCREENING [facility] Start: 1970 Adult depression screening assessment DEPRESSION SCREENING [facility] Start: 1958 Abdominal aortic aneurysm screening Abdominal Aortic Aneurysm Screening [facility] End: 02-03-2023 ECG COMPLETE ECG COMPLETE ECG Routine Persistent atrial fibrillation (HCC) 1 Occurrences starting 02/03/2022 until 02/03/2023 [facility] Work Phone: Comment on above: 1 Occurrences starti ng 02/03/2022 until 02/03/2023 End: 06-27-2025 ECG COMPLETE ECG COMPLETE ECG Routine Atrial fibrillation, unspecified type (HCC) 1 Occurrences starting 06/27/2024 until 06/27/2025 [facility] Work Phone: Comment on above: 1 Occurrences [facility]i ng [facility]27[facility]2024 [facility] Immunization Date Immunization Notes Care Provider Fa cilipenelope 08-31-2021 SARS-CoV-2 (COVID-19 ) Ad26 vaccine, recombinant Ursula Love [facility] Comment on above: Result Comment: 2021: [id number] 07-23-2021 influenza virus vaccine, unspecified formulation Ursula Love [facility] 12-23-2020 SARS-CoV-2 (COVID-19 ) Ad26 vaccine, recombinant Ursula Love [facility] 07-30-2018 influenza virus vaccine, unspecified formulation Ursula Love [facility] NEGATED: Highlighted row has not occurred!07-03-2023 influenza virus vaccine, unspecified formulation Ursula Love [facility] Payers Date Payer Category Payer Private Health Insurance [facility] AAR SUPPLEMENT [id number] 2023-Present [phone] [address] [place] [address] Indemnity [id number] 2023 Unknown 2023 Medicare [id number] 2023 Medicare [id number] 2023 Unknown [id number] 2021 Unknown [employer] BLUE ACCE SS PPO [id number] 2021-Present [phone] [address] [place] [address] PPO [id number] 1959 Unknown [id number] 1958 Unknown [id number] 2.16.840.1.349940.3.579.2. 593 1958 Unknown [id number] 2.16.840.1.854334.3.579.2. 593 1958 Unknown [id number] 2.16.840.1.497680.3.579.2. 196 1958 Unknown [id number] 2.16.840.1.326355.3.579.2. 727 1958 Unknown [id number] 2.16.840.1.839180.3.579.2. 72 1958 Unknown [id number] 2.16.840.1.588902.3.579.2. 72 1958 Unknown [id number] 2.16.840.1.799150.3.579.2. 72 1958 Unknown [id number] 2.16.840.1.366976.3.579.2. 1958 Unknown [id number] 2.16.840.1.363237.3.579.2. 1958 Unknown [id number] 2.16.840.1.488411.3.579.2. 1958 Unknown [id number] 2.16.840.1.670282.3.579.2. 72 1958 Unknown [id number] 2.16.840.1.826638.3.579.2. 1958 Unknown [id number] 2.16.840.1.040006.3.579.2. 72 1958 Unknown [id number] 2.16.840.1.180091.3.579.2. 1958 Unknown [id number] 2.16.840.1.977600.3.579.2. 72 1958 Unknown [id number] 2.16.840.1.963159.3.579.2. 72 1958 Unknown [id number] 2.16.840.1.875997.3.579.2. 72 1958 Unknown [id number] 2.16.840.1.490950.3.579.2. 72 1958 Unknown [id number] 2.16.840.1.357436.3.579.2. 727 1958 Unknown [id number] 2.16.840.1.420153.3.579.2. 1958 Unknown [id number] 2.16.840.1.371644.3.579.2. 72 1958 Unknown [id number] 2.16.840.1.166494.3.579.2. 72 1958 Unknown [id number] 2.16.840.1.288292.3.579.2. 72 1958 Unknown [id number] 2.16840.1.598801.3.579.2. 1958 Unknown [id number] 2.840.1.113903.3.579.2. 1958 Unknown [id number] 2.840.1.981184.3.579.2. 1958 Unknown [id number] 2.16840.1.685857.3.579.2. 1958 Unknown [id number] 2.840.1.723053.3.579.2. 1958 Unknown [id number] 2.840.1.011910.3.579.2. 1958 Unknown [id number] 2.16840.1.539296.3.579.2. 72 1958 Unknown [id number] 2.16.840.1.770827.3.579.2. 72 1958 Unknown [id number] 2.16840.1.768409.3.579.2. 1958 Unknown [id number] 2.16.840.1.464913.3.579.2. 72 1958 Unknown [id number] 2.16840.1.971701.3.579.2 1958 Unknown [id number] 2.16.840.1.766736.3.579.2. 727 1958 Unknown [id number] 2.16.840.1.317718.3.579.2. 727 Social History Date Type Detail Facility Start: 08-25-2014 End: 09-09-2024 Tobacco smoking status NHIS Ex-smoker [facility] Comment on above: Quit in 2013 after M I quit age 53 (39 pack years) Start: [birth year]-25-1957 End: 08-09-2014 History of tobacco use Current smoker [facility] Start: 10-25-1957 End: 08-09-2014 History of tobacco use Cigarette Smoker [facility] Start: 08-25-2014 End: 09-23-2020 Cigarettes smoked current (pack per day) - Reported 0.5 [facility] Start: 08-25-2014 Tobacco use and exposure Smokeless tobacco non-user [facility] Start: 02-03-2022 Alcohol intake Current drinke r of alcohol (finding) [facility] Start: 1960 Sex Assigned At Not on file C [facility] Start: 01-24-2022 End: 02-03-2022 Exposure to SARS-CoV-2 (event) Not sure [facility] Tobacco smoking status No Smokin g Status Entered [facility] Start: 09-23-2020 End: 02-03-2022 Sex Assigned At Male [facility] Start: 04-01-2022 Tobacco smoking status Never s moked tobacco (finding) [facility] Tobacco smoking status Never [facility] Comment on above: Quit in 2013 after M I quit age 53 (39 pack years) Medical Equipment Procedure Code Equipment Code Equipment Origin al Text Equipment Identifier Dates Lancets, See Instructions, EA, Lancets, to check BS once daily E11.9, Supply Start: 2024 Lancets, See Instructions, 100 lancet(s), 0, Lancets, to check BS once daily E11.9, [id number], Supply, 179, cm, 03/26/24 10:53:00 EDT, Height/Length Dosing, 86, kg, 03/26/24 10:53:00 EDT, Weight Dosing Start: 2024 One Touch Ultra 2 Test Strips, See Instructions, Supply Start: 2024 One Touch Ultra 2 Test Strips, See Instructions, 100 strip(s), 0, One Touch Ultra 2 Glucometer Test Strips, to check BS once daily E11.9, [id number], Supply, 179, cm, 03/26/24 10:53:00 EDT, Height/Length Dosing, 86, kg, 03/26/24 10:53:00 EDT, Weight Dosing Start: 2024 One Touch Ultra 2 Test Strips, See Instructions, 100 strip(s), 0, One Touch Ultra 2 Glucometer Test Strips, to check BS once daily E11.9, [id number], Supply, 179, cm, 03/26/24 10:53:00 EDT, Height/Length Dosing, 86, kg, 03/26/24 10:53:00 EDT, Weight Dosing Start: 2024 One Touch Ultra 2 Test Strips, See Instructions, 100 strip(s), 0, One Touch Ultra 2 Glucometer Test Strips, to check BS once daily E11.9, [id number], Supply, 179, cm, 03/26/24 10:53:00 EDT, Height/Length Dosing, 86, kg, 03/26/24 10:53:00 EDT, Weight Dosing Start: 2024 One Touch Ultra 2 Test Strips, See Instructions, 100 strip(s), 0, One Touch Ultra 2 Glucometer Test Strips, to check BS once daily E11.9, [id number], Supply, 179, cm, 03/26/24 10:53:00 EDT, Height/Length Dosing, 86, kg, 03/26/24 10:53:00 EDT, Weight Dosing Start: 2024 One Touch Ultra 2 Test Strips, See Instructions, 100 strip(s), 0, One Touch Ultra 2 Glucometer Test Strips, to check BS once daily E11.9, [id number], Supply, 179, cm, 03/26/24 10:53:00 EDT, Height/Length Dosing, 86, kg, 03/26/24 10:53:00 EDT, Weight Dosing Start: 2024 One Touch Ultra 2 Test Strips, See Instructions, 100 strip(s), 0, One Touch Ultra 2 Glucometer Test Strips, to check BS once daily E11.9, [id number], Supply, 179, cm, 03/26/24 10:53:00 EDT, Height/Length Dosing, 86, kg, 03/26/24 10:53:00 EDT, Weight Dosing Start: 2024 lancets, See Instructions, lancet(s), use lancet to monitor BS daily- E11.9, Supply Start: 10-17-2024 lancets, See Instructions, 100 lancet(s), 1, use lancet to monitor BS once daily- E11.9, [id number], Supply, 179, cm, 09/09/24 11:22:00 EST, Height/Length Dosing, 79.8, kg, 09/09/24 11:22:00 EST, Weight Dosing Start: 10-17-2024 One Touch Ultra 2 Test Strips, See Instructions, 100 strip(s), 0, One Touch Ultra 2 Glucometer Test Strips, to check BS once daily E11.9, [id number], Supply, 179, cm, 09/09/24 11:22:00 EST, Height/Length Dosing, 79.8, kg, 09/09/24 11:22:00 EST, Weight Dosing Start: 10-17-2024 Goals Date Patient Goal Desired Activity /State 12-28-2023 Functional Status Date Assessment Result Facility 08-16-2023 Functional Status N/A [facility] 04-01-2022 Functional Status Telehealth Patient Fish [facility] [place] Clinical Notes 02-03-2022 to 10-01-2024 RadiologyRadiologyRadiologyRadiologyRadiologyRadiologyLaboratoryRadiologyLaborat oryRadiologyLaboratoryRadiologyLaboratoryRadiologyRadiologyLaboratoryRadiologyLa boratoryRadiologyLaboratoryRadiology Note Date & Type Note Facility 10-01-2024 Note [place] Electrophysiology Consult Note [place] [facility]iology - [facility] Reason for visit: Afib 10/01/24 Patient here for H&P prior to afib ablation scheduled on 10/03/2024. Denies chest pain, SOB, and bleeding on Eliquis. Prior HPI: Marcelle Deutsch is a 64 y.o. year old with past medical history of CAD with CAT SCAN TECH of the RCA and a 70% ostial D1 lesion, diabetes mellitus type 2, hypertension AAA has been previously seen by Dr. PHAN. There is a history of prior A-fib ablation done at [facility] on 07/10/2017 by and was noted to have atrial flutter subsequently which was converted by cardioversion to sinus rhythm on 07/28/2017. Since then he has been following up with Jannet Gonzalez at [facility]. He is currently maintained on metoprolol and [...] and is quite symptomatic with this. His [id number] score is 3 with risk factors of [...] SR PMH: Past Medical History: Diagnosis Date Abnormal ECG Allergic rhinitis Arrhythmia CAD (coronary artery disease) Diabetes mellitus (CMS/HCC) GERD (gastroesophageal reflux disease) Hyperlipidemia Hypertension Irregular heart beat PAF (paroxysmal atrial fibrillation) (CMS/HCC) PSH: Past Surgical History: Procedure Laterality Date AV NODE ABLATION BICEPS TENDON REPAIR CARDIAC CATHETERIZATION ROTATOR CUFF REPAIR TONSILLECTOMY SH: Social Determinants of Health Tobacco Use: Medium Risk (10/01/2024) Patient History Smoking Tobacco Use: Former Smokeless Tobacco Use: Never Passive Exposure: Not on file Alcohol Use: Not on file Financial Resource Strain: Not on file Food Insecurity: Not on file Transportation Needs: Not on file Physical Activity: Not on file Stress: Not on file Social Connections: Not on file Intimate Partner Violence: Unknown (12/07/2023) [place] Safety & Environment Fear of Current or Ex-Partner: Not on file Emotionally Abused: Not on file Physically Abused: Not on file Sexually Abused: Not on file Physically or Sexually Abused: Not on file Depression: Not on file Housing Stability: Not on file Utilities: Not on file Health Literacy: Not on file Allergies: Allergies Allergen Reactions Penicillins Hives Weight: 80.7kg Visit Vitals BP (!) 182/82 (BP Location: Left arm, Patient Position: Sitting) Pulse 70 Ht 1.778 m (5' 10 ) Wt 80.7 kg (178 lb) SpO2 97% BMI 25.54 kg/m??? Smoking Status Former BSA 2 m??? Meds: Current Outpatient Medications on File [...] Take 1 tablet (500 mg) by mouth two times daily. Do not crush, chew, or split. 180 tablet 3 No current facility-administered medications on file prior to visit. ROS: Review of Systems Cardiovascular: Positive for palpitations (intermittent episodes of afib). Musculoskeletal: Positive for back pain (more content not included)... [facility] 09-10-2024 Note [facility] 09-10-2024 Note [place] Electrophysiology Consult Note [place] Cardiology [facility] Reason for visit: Afib Prior HPI: Marcelle Deutsch is a 64 y.o. year old with past medical history of CAD with CAT SCAN TECH of the RCA and a 70% ostial D1 lesion, diabetes mellitus type 2, hypertension AAA has been previously seen by Dr. PHAN. There is a history of prior A-fib ablation done at [facility] on 07/10/2017 by and was noted to have atrial flutter subsequently which was converted by cardioversion to sinus rhythm on 07/28/2017. Since then he has been following up with Jannet Gonzalez at [facility]. He is currently maintained on metoprolol and [...] and is quite symptomatic with this. His [id number] score is 3 with risk factors of [...] artery disease) Hypertension PAF (paroxysmal atrial fibrillation) (CMS/HCC) PSH: Past Surgical History: Procedure Laterality Date [...] on file Intimate Partner Violence: Unknown (12/07/2023) [place] Safety & Environment Fear of Current or [...] no dry eyes, (more content not included)... [facility] 09-09-2024 Note Oncology Progress No te Chief Complaint Follow up on anemia and B-12 def. no specific questions or concerns today. Diagnoses 1. Iron deficiency anemia (D50.9: Iron deficiency anemia, unspecified) Ordered: ONC Office Visit 30 Min Orders: CBC w/ Auto Diff Comprehensive Metabolic Panel Ferritin Iron Level Iron Percent Saturation ONC Office Visit 20 Min Transferrin Oncological History/ROS/PE/Assessment and Plan Mr. Deutsch is a 63 [...] a colonoscopy done in Sep 2023 at [facility] after positive Cologuard test. This showed a [...] Contact Information Tj NATHAN-, Ana Rivas, ONC [facility] [address] [place] [phone] Additional Instructions: continue b12 injections monthly cbc, cmp, iron (more content not included)... [facility] 07-12-2024 Note [place] Cardiology - [facility] Subjective Marcelle Deutsch is a 64 y.o. [...] Types: Cigarettes Quit date: 2013 Years since quittin. Smokeless tobacco: Never Substance Use Topics Alcohol use: Yes Comment: occasional HPI He is a 64 yo man with prior history of: 1. CAD s/p cardiac cath in 2013 in the setting of an abnormal stress test that showed CAT SCAN TECH of the RCA with filling via left to right collaterals. He also had a 70% stenosis in a diagonal branch (the prior report mentions that it is not amenable to intervention). At that time left-ventricular gram showed normal left ventricular ejection fraction at 60%. 2. Paroxysmal atrial fibrillation, status post ablation in 2017 at the [facility]. He also had prior cardioversion. He is [...] episodes of atrial fibrillation. 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 [...] and time. Psychiat (more content not included)... [facility] 03-20-2024 Hospital Discharge instructions Follow Up Care 03/20/2024 09:48:36 With:Tj BURTON, Ana Rivas, ONC Address: [address] [phone] When: Unknown Comments:continue b12 injections monthlycbc, cmp, iron studies in 6mofollow-up in 6mo [facility] 01-25-2024 Hospital Discharge instructions Follow Up Care 01/25/2024 12:17:38 With:Tj BURTON, Ana Rivas, ONC Address: [address] [phone] When: Unknown Comments:cbc, cmp, iron studies in 3mo and 6mofollow-up in 6mo with PROBATION AND PATROL AGENT [facility] 12-29-2023 Note LDL > 70 therefore c ontinue lipitor 80 mg and will add zetia 10 mg daily Repeat lipid level before next appt in about 3-6 months [facility] 12-29-2023 Note Hypertension is typi jimmie stable with review of his home b/p log. Definitely has white coat syndrome Continue norvasc, clonidine, lisinopril and toprol [facility] 12-29-2023 Note Coronary artery dise ase is stable Continue GDMT- ASA, lipitor, imdur, toprol, and ranexa continue risk factor modifications- heart healthy diet, regular exercise as tolerated and continue all medications. [facility] 12-29-2023 Note Rate stable with top rol Anticoagulation with eliquis and denied any bleeding tendencies. [facility] 12-29-2023 Note Order ABD Aorta US i n 6 months to re-evalulate infrarenal AAA. [facility] 12-29-2023 Hospital Discharge instructions Follow Up Care 12/29/2023 11:16:26 With:Tj BURTON, Ana Rivas, ONC Address: [address] [phone] When: Unknown Comments:IV Injectafer x2B12 injections weekly x4, then monthlycbc, cmp, iron studies in 8wksfollow-up in 8wks with PROBATION AND PATROL AGENT [facility] 12-29-2023 Note UTP CARDIOLOGY PROGR ESS [...] of an abnormal stress test that showed CAT SCAN TECH of the RCA with filling via left to right collaterals. He also had a 70% stenosis in a diagonal branch (the prior report mentions that it is not amenable to intervention). At that time left-ventricular gram showed normal left ventricular ejection fraction at 60%. 2. Paroxysmal atrial fibrillation, status post ablation in 2017 at the [facility]. He also had prior cardioversion. He is [...] episodes of atrial fibrillation. 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 [...] 2 seconds. Neurol (more content not included)... [facility] 12-29-2023 Note Patient here for 6 m [...] All other systems reviewed and are negative. [facility] 12-29-2023 Note HTN management with goal b/p < 130/80 Monitor b/p at home Routine monitoring- will repeat Echocardiogram in 6 months with f/u with Dr Gore. D/W pt that he is to call 911 for sharp, tearing chest pain or back pain, call office for b/p consistently > 130/80 and he voiced understanding [facility] 08-16-2023 Hospital Discharge instructions Patient Education 08/16/2023 [...] include: ?8 oz (237 mL) of milk, oyprkmu-uxwofqaqluko-rsinz milk, and calcium-fortifiedfruit juice. Calcium-fortified means that [...] ?Spinach (cooked), rhubarb, beets, sweet potatoes, and Serbian chard. ?Peanuts. ?Potato chips, eritrean fries, and baked potatoes with skin on. ?Nuts and nut products. ?Chocolate. If you regularly take a diuretic medicine, make sure to eat at least 1 or 2 servings of fruits or vegetables that are high in potassium each day. These include: ?Avocado. ?Banana. ?Knott, prune, carrot, or tomato juice. ?Baked potato. [...] magnesium, fish oil, or vitamin B6. Take kuil-tkv-eaiysgh and prescription medicines only as told by [...] Casseroles. Pizza. Lasagna. Frozen meals. Potato chips. [place] Citizen fries. The items listed above may not [...] provider. Document Revised: 06/13/2022 Document Reviewed: 06/13/2022 [employer] Patient Education 2022 [employer]. Follow Up Care 08/08/2023 13:37:21 With:Teo NIELSON, Shelley Sidhu, NORAL, URO Address: When: Unknown Comments:LANDRY [facility] 01-04-2023 Note CARDIAC STRESS TEST Requesting Physician: [...] and reported myocardial perfusion scan findings. [facility] 04-01-2022 Hospital Discharge instructions Patient Education [...] quitting, ask your health care provider. Take puby-ydg-synjmrx and prescription medicines only as told by [...] 10/07/2014 Document Revised: 05/27/2019 Document Reviewed: 05/03/2019 [employer] Patient Education 2020 [employer]. 04/01/2022 13:38:40 Hyperglycemia Hyperglycemia Hyperglycemia occurs when [...] these instructions at home: General instructions Take qjrw-iud-tdochbc and prescription medicines only as told by [...] 03/28/2002 Document Revised: 06/19/2017 Document Reviewed: 06/19/2017 [employer] Patient Education 2020 [employer]. 04/01/2022 13:38:33 Atrial Fibrillation Atrial Fibrillation Atrial [...] may be diagnosed with: Electrocardiogram (ECG). Ambulatory manager cardiac. This device records your heartbeats for [...] 10/02/2006 Document Revised: 11/22/2018 Document Reviewed: 11/23/2018 [employer] Patient Education 2020 [employer] 04/01/2022 13:38:29 Pinched Nerve Pinched Nerve [...] work. Follow these instructions at home: Take xwbp-bqw-ixtitgj and prescription medicines only as told by [...] leg, or the back or neck. Take ukvw-prb-towbgxg and prescription medicines only as told by [...] 09/22/2003 Document Revised: 10/19/2018 Document Reviewed: 10/16/2018 [employer] Patient Education 2020 [employer]. [facility] [place] [employer] 02-03-2022 Note HNO ID: [id number] Author: Jannet Gonzalez MD Service: ? Author Type: Physician Type: Progress Notes Filed: 02/03/2022 9:58 AM Note Text: [facility] [place] Emiliano Plascencia Department of Cardiovascular Medicine SECTION OF CARDIAC PACING and ELECTROPHYSIOLOGY OUTPATIENT VISIT DATE February 03, 2022 OUTPATIENT VISIT TYPE CONSULTATION PRIMARY CARE PHYSICIAN: Mark Browning DO [address] [place] [address] CHIEF COMPLAINT: PAF HISTORY OF PRESENT ILLNESS [...] he is in SR. He denies syncope. [id number] 3 (HTN, CAD, DM) tolerating Xarelto PAST MEDICAL HISTORY Diagnosis Date - Atrial fibrillation (HCC) 2013 - CAD (coronary artery disease) 09/02/2014 - Diabetes mellitus (HCC) - Dyslipidemia - Hypertension - Metabolic syndrome PAST SURGICAL HISTORY Procedure Laterality Date - AFIB PVI W/COMPL EP STUDY 07/10/2017 - CARDIAC CATH 09/02/2014 CAT SCAN TECH of proximal RCA. 70% ostial D1. Preserved [...] General: L (more content not included)... [facility] Evaluation + Plan note No data available for this section [facility] [place] Evaluation + Plan note Future Appointments Appointment Date:01/03/2024 08:00:00 AM Scheduled Provider: [facility] Type:FM Medicare Wellness Welcome Appointment Date:01/03/2024 08:40:00 AM Scheduled Provider:Ursula Love MD [facility] Type:FM Open Diagnostic Tests PendingPSA Free & Total 07/03/23Microalbumin Level Urine 07/03/23U Protein/Creat Ratio 07/03/23 [facility] Evaluation + Plan note Future Appointments Appointment Date:01/03/2024 08:00:00 AM Scheduled Provider: Location:[facility] Appointment Type:FM Medicare Wellness Welcome Appointment Date:01/03/2024 08:40:00 AM Scheduled Provider:Ursula Love MD [facility] Type[facility] Evaluation + Plan note Future Appointments Appointment Date:08/29/2023 02:20:00 PM Scheduled Provider:Jose Luis THOMAS MD [facility]: Appointment Date:01/03/2024 08:00:00 AM Scheduled Provider: [facility] Type:FM Medicare Wellness Welcome Appointment Date:01/03/2024 08:40:00 AM Scheduled Provider:Ursula Love MD [facility] Appoint[facility] Type:FM Open Diagnostic Tests PendingUrine Culture 08/04/23 Future Scheduled TestsCT Abdomen/Pelvis w/o Contrast 08/02/23 [facility] Evaluation + Plan note Future Appointments Appointment Date:08/29/2023 02:20:00 PM Scheduled Provider:Jose Luis THOMAS MD [facility] Type: Appointment Date:01/03/2024 08:00:00 AM Scheduled Provider: [facility] Type:FM Medicare Wellness Welcome Appointment Date:01/03/2024 08:40:00 AM Scheduled Provider:Ursula Love MD Location:[facility] Appointment Type: Open [facility] Evaluation + Plan note Future Appointments Appointment Date:08/29/2023 02:20:00 PM Scheduled Provider:Jose Luis THOMAS MD Location:[facility] Appointment Type:[place] [address] Appointment Date:01/03/2024 08:00:00 AM Scheduled Provider: Location:[facility] Appointment Type: Medicare Wellness Welcome Appointment Date:01/03/2024 08:40:00 AM Scheduled Provider:Ursula Love MD Location:[facility] Appointment Type: Open Future Scheduled TestsUS Aorta 08/08/24 [facility] Evaluation + Plan note Future Appointments Appointment Date:01/03/2024 08:00:00 AM Scheduled Provider: Location:[facility] Appointment Type:FM Medicare Wellness Welcome Appointment Date:01/03/2024 08:40:00 AM Scheduled Provider:Ursula Love MD Location:[facility] Appointment Type: Open Future Scheduled TestsUS Aorta 08/08/24 [facility] [place] Evaluation + Plan note Future Appointments Appointment Date:12/17/2024 08:00:00 AM Scheduled Provider: Location:[facility] Appointment Type:FM Medicare Wellness Subsequent Diagnostic Tests PendingHCV Antibody RFX to Quant PCR 12/18/23 Future Scheduled TestsCT Chest, Low Dose Screening 12/18/23US Aorta 08/08/24 [facility] Evaluation + Plan note Future Appointments Appointment Date:03/25/2024 10:45:00 AM Scheduled Provider:Ursula Love MD Location:[facility] Appointment Type: Open Appointment Date:12/17/2024 08:00:00 AM Scheduled Provider: Location:[facility] Appointment Type:FM Medicare Wellness Subsequent Future Scheduled TestsUS Aorta 08/08/24 [facility] Evaluation + Plan note Future Appointments Appointment Date:01/25/2024 09:00:00 AM Scheduled Provider:Ana Kumar Location:[facility] Appointment Type:ONC Office Visit New 45 (FT) Appointment Date:03/25/2024 10:45:00 AM Scheduled Provider:Ursula Love MD Location:[facility] Appointment Type: Open Appointment Date:12/17/2024 08:00:00 AM Scheduled Provider: Location:[facility] Appointment Type: Medicare Wellness Subsequent Diagnostic Tests PendingImmunofixation Serum 01/16/24Free K+L Lt Chains,Qn,S 01/16/24Protein Electrophoresis 01/16/24 Future Scheduled TestsUS Aorta 08/08/24 [facility] Evaluation + Plan note Future Appointments [...] 03/21/24Iron Percent Saturation 03/21/24Transferrin 03/21/24US Aorta 08/08/24 [facility] Evaluation + Plan note Future Appointments [...] 10:45:00 AM Scheduled Provider:Ursula Love MD [facility] App[facility] Type:FM Open Appointment Date:04/11/2024 02:00:00 PM [...] 03/21/24Iron Percent Saturation 03/21/24Transferrin 03/21/24US Aorta 08/08/24 [facility] Evaluation + Plan note Future Appointments Appointment Date:02/15/2024 01:00:00 PM Scheduled Provider: Location:.ONCOLOGY Appointment Type:ONC Injectafer (FT) Appointment Date:02/15/2024 02:00:00 PM Scheduled Provider: Location:.ONCOLOGY Appointment Type:ONC Injection (FT) Appointment Date:03/14/2024 10:15:00 AM Scheduled Provider:Ana Kumar Location:.ONCOLOGY Appointment Type:ONC Office Visit 30 (FT) Appointment Date:03/14/2024 10:45:00 AM Scheduled Provider: Location:.ONCOLOGY Appointment Type:ONC Injection (FT) Appointment Date:03/25/2024 10:45:00 AM Scheduled Provider:Ursula Love MD [facility] Type:FM Open Appointment Date:04/11/2024 [...] Appointment Date:12/17/2024 08:00:00 AM Scheduled Provider: [facility] Appointment Type:FM Medicare Wellness Subsequent Appointment Date:12/19/2024 [...] 03/21/24Iron Percent Saturation 03/21/24Transferrin 03/21/24US Aorta 08/08/24 [facility] Evaluation + Plan note Future Appointments [...] 03/11/24Iron Percent Saturation 03/11/24Transferrin 03/11/24US Aorta 08/08/24 [facility] Evaluation + Plan note Future Appointments [...] Appointment Type:ONC Injection (FT) [facility]US [facility] 08/[facility] Evaluation + Plan note Future Appointments [...] Percent Saturation 09/07/24Transferrin 06/07/24Transferrin 09/07/24US Aorta 08/08/24 [facility] Evaluation + Plan note Future Appointments [...] (FT) Appointment Date:12/17/2024 08:00:00 AM Scheduled Provider: Location:[facility] Appointment Type: Medicare Wellness Subsequent Appointment Date:12/19/2024 02:15:00 PM Scheduled Provider: Location:.ONCOLOGY Appointment Type:ONC Injection (FT) Appointment Date:01/16/2025 02:05:00 PM Scheduled Provider: Location:.ONCOLOGY Appointment Type:ONC Injection (FT) Appointment Date:02/13/2025 02:15:00 PM Scheduled Provider: Location:.ONCOLOGY Appointment Type:ONC Injection (FT) Appointment Date:03/13/2025 02:15:00 PM Scheduled [facility] Type:[facility]C Injection (FT) Future Scheduled TestsCBC w/ Auto Diff 06/07/24CBC w/ Auto Diff 09/07/24Comprehensive Metabolic Panel 06/07/24Comprehensive Metabolic Panel 09/07/24Ferritin 06/07/24Ferritin 09/07/24Iron Level 06/07/24Iron Level 09/07/24Iron Percent Saturation 06/07/24Iron Percent Saturation 09/07/24Transferrin 06/07/24Transferrin 09/07/24US Aorta 08/08/24 [facility] Evaluation + Plan note Future Appointments Appointment Date:06/06/2024 02:00:00 PM Scheduled Provider: Location:.ONCOLOGY Appointment Type:ONC Injection (FT) Appointment Date:07/04/2024 02:00:00 PM Scheduled Provider: Location:.ONCOLOGY Appointment Type:ONC Injection (FT) Appointment Date:08/01/2024 02:00:00 PM Scheduled [facility] Type:ONC Injection (FT) Appointment Date:08/29/2024 02:00:00 PM Scheduled Provider: Location:.ONCOLOGY Appointment Type:ONC Injection (FT) Appointment Date:09/09/2024 11:00:00 AM Scheduled Provider:Ana Kumar [facility] Type:ONC Office Visit 30 (FT) Appointment [...] Percent Saturation 09/07/24Transferrin 06/07/24Transferrin 09/07/24US Aorta 08/08/24 [facility] Evaluation + Plan note Future Appointments [...] (FT) Appointment Date:12/17/2024 08:00:00 AM Scheduled Provider: Location:[facility] Appointment Type:FM Medicare Wellness Subsequent [...] Percent Saturation 09/07/24Transferrin 06/07/24Transferrin 09/07/24US Aorta 08/08/24 [facility] Evaluation + Plan note Future Appointments [...] (FT) Appointment Date:12/17/2024 08:00:00 AM Scheduled Provider: Location:[facility] [place] Appointment Type:FM Medicare Wellness Subsequent Appointment Date:12/19/2024 02:15:00 PM Scheduled Provider: Location:.ONCOLOGY Appointment Type:ONC Injection (FT) Appointment Date:01/16/2025 02:05:00 PM Scheduled Provider: Location:.ONCOLOGY Appointment Type:ONC Injection (FT) Appointment Date:02/13/2025 02:15:00 PM Scheduled Provider: Location:.ONCOLOGY Appointment Type:ONC Injection (FT) Appointment Date:03/13/2025 02:15:00 PM Scheduled [facility] Type:ONC Injection (FT) Future Scheduled TestsCBC w/ Auto Diff 06/07/24CBC w/ Auto Diff 09/07/24Comprehensive Metabolic Panel 06/07/24Comprehensive Metabolic Panel 09/07/24Ferritin 06/07/24Ferritin 09/07/24Iron Level 06/07/24Iron Level 09/07/24Iron Percent Saturation 06/07/24Iron Percent Saturation 09/07/24Transferrin 06/07/24Transferrin 09/07/24US Aorta 08/08/24 [facility] Evaluation + Plan note Future Appointments [...] Date:01/30/2025 09:15:00 AM Scheduled Provider:Ursula Love MD Location:[facility] Appointment Type: Open Appointment Date:02/13/2025 02:15:00 PM Scheduled Provider: Location:.ONCOLOGY Appointment Type:ONC Injection (FT) Appointment Date:03/13/2025 02:15:00 PM Scheduled [facility]: [facility] Type:ONC Injection (FT) Future Scheduled TestsCBC w/ Auto Diff 06/07/24CBC w/ Auto Diff 09/07/24Comprehensive Metabolic Panel 06/07/24Comprehensive Metabolic Panel 09/07/24Ferritin 06/07/24Ferritin 09/07/24Iron Level 06/07/24Iron Level 09/07/24Iron Percent Saturation 06/07/24Iron Percent Saturation 09/07/24Transferrin 06/07/24Transferrin 09/07/24US Aorta 08/08/24 [facility] Evaluation + Plan note Future Appointments [...] Date:01/30/2025 09:15:00 AM Scheduled Provider:Ursula Love MD Location:[facility] Appointment Type: Open Appointment Date:02/13/2025 02:15:00 PM Scheduled Provider: Location:.ONCOLOGY Appointment Type:ONC Injection (FT) Appointment Date:03/13/2025 02:15:00 PM Scheduled [facility]: [facility] Type:ONC Injection (FT) Future Scheduled TestsCBC w/ Auto Diff 06/07/24CBC w/ Auto Diff 09/07/24Comprehensive Metabolic Panel 06/07/24Comprehensive Metabolic Panel 09/07/24Ferritin 06/07/24Ferritin 09/07/24Iron Level 06/07/24Iron Level 09/07/24Iron Percent Saturation 06/07/24Iron Percent Saturation 09/07/24Transferrin 06/07/24Transferrin 09/07/24US Aorta 08/08/24 [facility] Evaluation + Plan note Future Appointments [...] Date:01/30/2025 09:15:00 AM Scheduled Provider:Ursula Love MD [facility]: Open Appointment Date:02/13/2025 02:15:00 PM Scheduled Provider: Location:.ONCOLOGY Appointment Type:ONC Injection (FT) Appointment Date:03/13/2025 02:15:00 PM Scheduled Provider: Location:.ONCOLOGY Appointment Type:ONC Injection (FT) Future Scheduled TestsCBC w/ Auto Diff 06/07/24Comprehensive Metabolic Panel 06/07/24Ferritin 06/07/24Iron Level 06/07/24Iron Percent Saturation 06/07/24Transferrin 06/07/24US Aorta 08/08/24 [facility] Evaluation + Plan note Future Appointments [...] Date:01/30/2025 09:15:00 AM Scheduled Provider:Ursula Love MD Location:[facility] Appointment Type: Open Appointment Date:02/13/2025 02:00:00 PM Scheduled Provider:Ana Kumar Location:.ONCOLOGY Appointment Type:ONC Office Visit 20 (FT) Appointment Date:02/13/2025 02:15:00 PM Scheduled [facility] Type:ONC Injection (FT) Appointment Date:03/13/2025 02:15:00 PM Scheduled Provider: [facility] Type:ONC Injection (FT) Future Scheduled TestsCBC w/ Auto Diff 06/07/24CBC w/ Auto Diff 03/09/25Comprehensive Metabolic Panel 06/07/24Comprehensive Metabolic Panel 03/09/25Ferritin 06/07/24Ferritin 03/09/25Iron Level 06/07/24Iron Level 03/09/25Iron Percent Saturation 06/07/24Iron Percent Saturation 03/09/25Transferrin 06/07/24Transferrin 03/09/25US Aorta 08/08/24 [facility] Evaluation + Plan note Future Appointments Appointment Date:10/23/2024 02:30:00 PM Scheduled Provider: Location:.ONCOLOGY Appointment Type:ONC Injection (FT) Appointment Date:11/21/2024 02:15:00 PM Scheduled Provider: Location:.ONCOLOGY Appointment Type:ONC Injection (FT) Appointment Date:12/17/2024 08:00:00 AM Scheduled Provider: Location:[facility] Appointment Type: Medicare Wellness Subsequent Appointment Date:12/19/2024 02:15:00 PM Scheduled [facility]: [facility] Type:ONC Injection (FT) Appointment Date:01/16/2025 02:05:00 PM Scheduled Provider: [facility] Type:ONC Injection (FT) Appointment Date:01/30/2025 09:15:00 AM Scheduled Provider:Ursula Love MD Location:[facility] Appointment Type: Open Appointment Date:02/13/2025 02:00:00 PM Scheduled Provider:Ana Kumar Location:FT.ONCOLOGY Appointment Type:ONC Office Visit 20 (FT) Appointment Date:02/13/2025 02:15:00 PM Scheduled [facility]: [facility] Type:ONC Injection (FT) Appointment Date:03/13/2025 02:15:00 PM Scheduled Provider: [facility] Type:ONC Injection (FT) Future Scheduled TestsCBC w/ Auto Diff 06/07/24CBC w/ Auto Diff 03/09/25Comprehensive Metabolic Panel 06/07/24Comprehensive Metabolic Panel 03/09/25Ferritin 06/07/24Ferritin 03/09/25Iron Level 06/07/24Iron Level 03/09/25Iron Percent Saturation 06/07/24Iron Percent Saturation 03/09/25Transferrin 06/07/24Transferrin 03/09/25US Aorta 08/08/24 [facility] Evaluation + Plan note Future Appointments Appointment Date:11/21/2024 02:15:00 PM Scheduled Provider: Location:.ONCOLOGY Appointment Type:ONC Injection (FT) Appointment Date:12/17/2024 08:00:00 AM Scheduled Provider: Location:[facility] Appointment Type: Medicare Wellness Subsequent Appointment Date:12/19/2024 02:15:00 PM Scheduled Provider: [facility] Type:ONC Injection (FT) Appointment Date:01/16/2025 02:05:00 PM Scheduled Provider: [facility] Type:ONC Injection (FT) Appointment Date:01/30/2025 09:15:00 AM Scheduled Provider:Ursula Love MD Location:[facility] Appointment Type: Open Appointment Date:02/13/2025 02:00:00 PM Scheduled Provider:Ana Kumar [facility] Type:ONC Office Visit 20 (FT) Appointment Date:02/13/2025 02:15:00 PM Scheduled Provider: [facility] Type:ONC Injection (FT) Appointment Date:03/13/2025 02:15:00 PM Scheduled Provider: Location:.ONCOLOGY Appointment Type:ONC Injection (FT) Future Scheduled TestsCBC w/ Auto Diff 06/07/24CBC w/ Auto Diff 03/09/25Comprehensive Metabolic Panel 06/07/24Comprehensive Metabolic Panel 03/09/25Ferritin 06/07/24Ferritin 03/09/25Iron Level 06/07/24Iron Level 03/09/25Iron Percent Saturation 06/07/24Iron Percent Saturation 03/09/25Transferrin 06/07/24Transferrin 03/09/25US Aorta 08/08/24 [facility] Evaluation note Diagnosis Persistent atrial fibrillation (HCC)- Primary Atrial fibrillation [facility] Diagnosis Atrial fibrillation, unspecified type (HCC)- Primary documented in this encounter [facility] Discharge instructions No data available for this section [facility] [place] Progress note No data available for this section [facility] Medicine [place] Reason for referral (narrative)* Outpatient Procedure (Routine) - Authorized Specialty Diagnoses / Procedures Referred By Kameron t Referred To Contact [facility] Diagnoses Persistent atrial fibrillation (HCC) Procedures ECG COMPLETE ECG ROUTINE ECG W/LEAST 12 LDS W/I&R Jannet Gonzalez MD [address] [place] [address] [address] Referral ID Status Reason Start Date Expiration Date Visits Requested Visits Authorized [id number] Authorized Auto-Generat ed Referral 02/03/2022 02/03/2023 1 1 [facility] for referral (narrative)* Outpatient Procedure (Routine) - Authorized Specialty Diagnoses / Procedures Referred By Contac t Referred To Contact [facility] Diagnoses Atrial fibrillation, unspecified type (HCC) Procedures ECG COMPLETE ECG ROUTINE ECG W/LEAST 12 LDS W/I&R Jannet Gonzalez MD [address] [place] [address] [facility] [address] [address] Referral ID Status Reason Start Date Expiration Date Visits Requested Visits Authorized [id number] Authorized Auto-Generat ed Referral 06/27/2024 06/27/2025 1 1 [facility] Summary Purpose Family History No Family [...] FoundDocuments on File Type Date 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 Advance Directive(s) 07/10/2017 5:38 AM [...] section and content) DATE CREATED AUTHOR 10/08/2020 [facility] DATE CREATED AUTHOR AUTHOR'S ORGANIZ ATION 02/05/2022 [facility] DATE CREATED AUTHOR AUTHOR'S ORGANIZ ATION 01/17/2023 [facility] DATE CREATED AUTHOR AUTHOR'S ORGANIZ ATION 03/12/2024 [facility] DATE CREATED AUTHOR AUTHOR'S ORGANIZ ATION 03/13/2024 [facility] DATE CREATED AUTHOR AUTHOR'S ORGANIZ ATION 08/14/2024 [facility] DATE CREATED AUTHOR AUTHOR'S ORGANIZ ATION 09/07/2024 [facility] DATE CREATED AUTHOR AUTHOR'S ORGANIZ ATION 09/11/2024 [facility] DATE CREATED AUTHOR AUTHOR'S ORGANIZ ATION 10/04/2024 [facility] DATE CREATED AUTHOR AUTHOR'S ORGANIZ ATION 10/05/2024 [facility] DATE CREATED AUTHOR AUTHOR'S ORGANIZ ATION 10/29/2024 [facility] Source Comments (unrecognize d section and content) In the event this informatio n is protected by the Federal Confidentiality of Alcohol and Drug Abuse Patient Records regulations: The Federal rules restrict any use of the information to criminally investigate or prosecute any alcohol or drug abuse patient.[facility] the event this information is protected by the Federal Confidentiality of Alcohol and Drug Abuse Patient Records regulations: The Federal rules restrict any use of the information to criminally investigate or prosecute any alcohol or drug abuse patient.[facility] Care Teams (unrecognized sec tion and content) Personal Lines Sales Executive Relationship Specialty Start Date End Date Mark Browning PCP - General Family Practice 08/11/14 Jannet Gonzalez MD [address] [place] [address] Primary Staff Physician Cardiology 02/03/22 Personal Lines Sales Executive Relationship Specialty Start Date End Date Mark Browning PCP - General Family Medicine 08/11/14 Jannet [...] BE BASED ON THE PRIMARY CLINICAL RECORDS. [facility] [employer] [facility]. provides no warranty or guarantee of the accuracy or completeness of information in this document.
--- NOTE | 2024-11-07 08:17 | PM.CN ---
Consult Note: HPI Data of Consult Patient: known to practice within the last 3 years Requesting Physician: Love Snow NP Primary Care Provider: URSULA LOVE Consult Narrative Reason for consult: chronic hip pain Narrative: Donny Doherty a pleasant 64 year old male presents for evaluation of chronic bilateral hip pain. failed previous intra-articular hip injections. has failed to benefit from 6 weeks of PT/provider guided HEP, head, ice, tylenol, cannot take NSAIDs as he is on eliquis. Pain 3/10 burning increasing to 8/10 with all activity. previous bilateral SIJ injection provided >50% improvement for 3 months and pt would like to repeat. USHA 24%. cc:: CC: Love Snow NP Review of Systems ROS Status of ROS 10 or more systems reviewed and unremarkable except as noted in history and below Musculoskeletal Reports: joint pain; Denies: back pain PFSH [facility] Medical History (Updated 07/18/24 @ 08:56 by Love Snow NP) Arthritis ?M19.90 - Unspecified osteoarthritis, unspecified site (ICD-10) Vitamin B12 deficiency (dietary) anemia ?D51.8 - Other vitamin B12 deficiency anemias (ICD-10) Iron deficiency anemia ?D50.9 - Iron deficiency anemia, unspecified (ICD-10) Tear of distal tendon of biceps ?S46.219A - Strain of muscle, fascia and tendon of other parts of biceps, unspecified arm, initial encounter (ICD-10) History of heart attack ?I25.2 - Old myocardial infarction (ICD-10) Hypertension ?I10 - Essential (primary) hypertension (ICD-10) Positive colorectal cancer screening using Cologuard test ?R19.5 - Other fecal abnormalities (ICD-10) Hyperlipidemia ?E78.5 - Hyperlipidemia, unspecified (ICD-10) Atrial fibrillation ?I48.91 - Unspecified atrial fibrillation (ICD-10) Kidney stone ?N20.0 - Calculus of kidney (ICD-10) GERD (gastroesophageal reflux disease) ?K21.9 - Gastro-esophageal reflux disease without esophagitis (ICD-10) External bleeding hemorrhoids ?K64.4 - Residual hemorrhoidal skin tags (ICD-10) Dysuria ?R30.0 - Dysuria (ICD-10) Type 2 diabetes mellitus ?E11.9 - Type 2 diabetes mellitus without complications (ICD-10) CAD (coronary artery disease) ?I25.10 - Atherosclerotic heart disease of [place] coronary artery without angina pectoris (ICD-10) Aortic aneurysm ?I71.9 - Aortic aneurysm of unspecified site, without rupture (ICD-10) Surgical History History of tonsillectomy ?Z90.89 - Acquired absence of other organs (ICD-10) H/O repair of rotator cuff ?Z98.890 - Other specified postprocedural states (ICD-10) H/O cardiac catheterization ?Z98.890 - Other specified postprocedural states (ICD-10) H/O cardiac radiofrequency ablation ?Z98.890 - Other specified postprocedural states (ICD-10) Tear of biceps tendon ?S46.219A - Strain of muscle, fascia and tendon of other parts of biceps, unspecified arm, initial encounter (ICD-10) Family History Other Family history of myocardial infarction Heart failure Social History Within the past year, how often did you have a drink containing alcohol: 4 or more times a week Within the past year, how many standard drinks containing alcohol did you have on a typical day: 1 or 2 Within the past year, how often did you have six or more drinks on one occasion: never Total score: 0 Score interpretation: Questions 2 and 3 are 0. It can be assumed that the patient's drinking is below the recommended limits. However, please confirm the accuracy of the patient's alcohol intake over the last few months. 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 [employer] Known occupational exposures/hazards: No Highest level of school completed/degree received: high school graduate Meds Home Medications and Allergies Home Medications ?Medication ?Instructions ?Recorded ?Confirmed ?Type amlodipine 5 mg tablet 5 mg PO DAILY 09/11/23 07/29/24 History aspirin 81 mg chewable tablet 81 mg PO DAILY 09/11/23 07/29/24 History atorvastatin 80 mg tablet 80 mg PO DAILY 09/11/23 07/29/24 History clonidine 0.1 mg PO BID 09/11/23 07/29/24 History diltiazem HCl 30 mg PO DAILY PRN atrial 09/11/23 07/29/24 History fibrillation isosorbide mononitrate 120 mg 120 mg PO QAM 09/11/23 07/29/24 History tablet,extended release 24 hr lisinopril 20 mg tablet 20 mg PO DAILY 09/11/23 07/29/24 History metformin 500 mg tablet 1,000 mg PO BID 09/11/23 07/29/24 History metoprolol succinate 100 mg 200 mg PO DAILY 09/11/23 07/29/24 History tablet,extended release 24 hr (Toprol XL) omeprazole 20 mg capsule,delayed 20 mg PO DAILY 09/11/23 07/29/24 History release ranolazine 500 mg tablet,extended 500 mg PO BID 09/11/23 07/29/24 History release,12 hr apixaban 5 mg tablet (Eliquis) 5 mg PO BID 04/16/24 07/29/24 History ezetimibe 10 mg tablet 10 mg PO DAILY 04/16/24 07/29/24 History hydrocodone 5 mg-acetaminophen 325 1 tab PO BID PRN pain #3 tabs 07/18/24 07/29/24 Rx mg tablet Allergies Allergy/AdvReac Type Severity Reaction Status Date / Time Penicillins AdvReac Mild Rash Verified 07/29/24 09:29 Exam Constitutional Documenting provider has reviewed patient's vital signs: yes Common normals: no apparent distress, oriented x3, healthy appearing, alert and well nourished General appearance: cooperative [facility] Common normals: normocephalic, hearing grossly normal bilaterally and moist oral mucous membranes Head and scalp: normocephalic Eye Common normals: PERRL Pupil: PERRL Neck & C-Spine Common normals: full ROM General: normal visual inspection Chest Common normals: inspection of chest normal Respiratory Common normals: normal respiratory effort, no retractions and no use of accessory muscles Back & Pelvis Lumbar spine/lower back: lumbar ROM normal and straight leg raise negative bilaterally; no pain with ROM, no lumbar spinal tenderness, no paraspinal muscle tenderness and no paraspinal muscle spasm Sacroiliac joints: SI joint(s) abnormal Other: left and right SIJ positive shelby(patricks), gaenslens, thigh thrust, compression test no tenderness to bilateral GTB negative internal/external rotation of bilateral hips Extremity Common normals: normal to inspection and full ROM Right lower extremity: no findings for hip joint Left lower extremity: no findings for hip joint Neuro Common normals: oriented x3, CN's II-XII intact bilaterally, moves all extremities, no focal motor deficits, no sensory deficits noted and deep tendon reflexes 2+ bilaterally Sensorium/orientation: alert Motor exam: strength 5/5 throughout and no movement abnormalities noted Psych Common normals: mental status grossly normal, thought process normal, cooperative, affect normal, speech normal and activity/motor behavior normal Speech: normal speech Thought process: normal thought process Results Imaging lumbar mri: Attestation: I have reviewed the pertinent imaging results. Radiologist's impression: 12-L1: No significant disc/facet abnormality, spinal stenosis, or foraminal stenosis. L1-L2: Early degenerative disc disease is present without focal protrusion or neural impingement. L2-L3: Early degenerative disc disease is present without focal protrusion or neural impingement. L3-L4: Mild diffuse disc bulging without significant loss of disc height. Minimal central canal and foraminal narrowing. L4-L5: Early DJD. Mild degenerative facet arthropathy. L5-S1: Moderate right, mild left foramen narrowing. Mild diffuse disc bulging without disc height reduction or significant disc desiccation. Mild degenerative facet arthropathy. Additional Findings Additional findings: If on a controlled substance or opioids, I have checked an [place] report on this patient and there are no aberrancies noted in the prescribing history.??If on a controlled substance or opioid a drug screen was completed and reviewed within the last year, and if there has not been a drug screen completed we ordered one today to monitor higher risk, state monitored pain medication use. As part of providing excellent, safe, comprehensive care, the following was completed at our patient's visit: 1. A medication reconciliation and review to ensure accurate knowledge of current/active medications, including asking our patients to inform us about any [id number] medications or herbal remedies/nutritional supplements/alternative remedies. 2. A review to specifically ensure our patients have had annual screening for screening for depression, screening for tobacco use, and screening for unhealthy alcohol use. For concerning screenings had a discussion with the patient, provided patient education, and recommended follow-up with primary care provider when appropriate. If patient noted with a risk of falling, they received education on strength, gait, and balance training to prevent future risk of falling. Portions of this note may have been carried over from the previous visit and updated as appropriate. Please note this office utilizes paper charting in addition to the electronic medical record. A list of current medications, vitals, and PMH is available there as the clinical staff outside of myself do not have access to [employer] charting during the clinic day operations. As part of providing quality comprehensive care the current medications, vitals, and PMH were reviewed in the paper chart. Assessment and Plan Assessment and Plan (1) Sacroiliac joint dysfunction: (2) Lumbar degenerative disc disease: (3) Lumbar spondylosis: Plan repeat bilateral SIJ injections under fluoroscopy, previous injections provided >50% improvement for 3 months continue HEP as tolerated continue PRN tylenol f/u after injection, however pt going to [place] so he will f/u when he returns
== END 2024-11-07 07:55 | disposition home or self-care (01) ==
LOC: PM 07:54
PROVIDERS: PCP Family Medicine; Visit Provider Nurse Practitioner
DX: M53.3 Sacrococcygeal disorders, not elsewhere classified (principal); M51.369 Other intervertebral disc degeneration, lumbar region without mention of lumbar back pain or lower extremity pain; M47.816 Spondylosis without myelopathy or radiculopathy, lumbar region
CPT/HCPCS: G0463

== ENCOUNTER 2024-11-12 09:30 | Outpatient (OUT) | payer MEDICARE, SELFPAY ==
[2024-11-12 09:59] LABS: Basophils Percent Auto 0.3 % (0.2-2.0); Eosinophils Absolute Auto 0.2 10^3/uL (0.0-0.7); Eosinophils Percent Auto 2.7 % (0.9-7.0); Hematocrit 40.7 % (42.0-54.0); Hemoglobin 13.6 g/dL (14.0-18.0); Immature Granulocytes Abs Auto 0.03 10^3/uL (0.00-0.03); Immature Granulocytes Pct Auto 0.5 % (0.0-0.5); Lymphocytes Absolute Auto 1.3 10^3/uL (1.2-3.8); Lymphocytes Percent Auto 22.9 % (20.5-60.0); Mean Corpuscular HGB Conc 33.4 g/dL (29.9-35.2); Mean Corpuscular Hemoglobin 31.3 pg (25.9-34.0); Mean Corpuscular Volume 93.8 fL (80.0-94.0); Mean Platelet Volume 10.9 fL (9.5-13.5); Monocytes Absolute Auto 0.5 10^3/uL (0.3-0.8); Monocytes Percent Auto 8.2 % (1.7-12.0); Neutrophils Absolute Auto 3.8 10^3/uL (1.4-6.5); Neutrophils Percent Auto 65.4 % (43.0-75.0); Platelet Count 141 10^3/uL (150-450); Red Blood Count 4.34 10^6/uL (4.70-6.10); Red Cell Distribution Width 12.9 % (11.0-15.0); White Blood Count 5.9 10^3/uL (4.0-11.0)
[2024-11-12 10:29] LABS: Anion Gap 9.2; BUN Creatinine Ratio 9.9; Carbon Dioxide 30.6 mmol/L (21.0-32.0); Chloride 101 mmol/L (98-107); Estimated GFR (African America >60 (>=60 mL/min/1.73m^2); Estimated GFR (Non-African Ame >60 (>=60 mL/min/1.73m^2); Glucose 134 mg/dL (74-106); Potassium 4.8 mmol/L (3.5-5.1); Sodium 136 mmol/L (136-145)
== END 2024-11-12 09:31 | disposition home or self-care (01) ==
LOC: LAB 09:33
PROVIDERS: PCP Family Medicine; Visit Provider Internal Medicine Cardiovascular Disease
DX: I48.0 Paroxysmal atrial fibrillation (principal)
CPT/HCPCS: 36415; 80048; 85025

== ENCOUNTER 2024-11-18 08:33 | Day surgery (SDC) | payer MEDICARE, SELFPAY ==
--- OUTSIDE RECORDS SUMMARY | 2024-11-18 08:55 | XMS_ITS | CCD ---
Author Organization [facility] Care Team Providers Care Grades 7 8 Tutor Name Role Phone Mark Browning Primary Care Provider Jannet Gonzalez MD Unavailable Ursula Love Primary Care Physician URSULA LOVE Admitting Unavailable URSULA LOVE Attending Unavailable URSULA LOVE Primary Care Unavailable URSULA LOVE Consulting Unavailable BAO, DR MOSCOSO Admitting Unavailable BAO, DR MOSCOSO Attending Unavailable URSULA LOVE Primary Care Unavailable BRANFORD, DR JANNET Parry Consulting Unavailable BAO, DR [...] Demboske, Ana Rivas Attending Unavailable Demboske, Ana Evelyn Admitting Unavailable Demboske, Ana Evelyn Attending Unavailable Demboske, Ana Evelyn Attending Unavailable DemboskeAna Attending Unavailable DemsolakeAna Attending Unavailable Ana Spencer Referring Unavailable Ana Spencer Attending Unavailable Ursula Love Attending Unavailable Ursula Love Attending Unavailable Ursula Love Attending Unavailable Ursula Love Attending Unavailable Ursula Love Attending Unavailable Ursula Love Attending Unavailable Ursula Love Attending Unavailable Demboske, Ana Rivas Attending Unavailable Ursula Love ENelly Referring Unavailable Ursula Love Admitting Unavailable Ursula Love Attending Unavailable Demboske, Ana Rivas Admitting Unavailable Demboske, Ana Rivas Attending Unavailable Ursula Love Attending Unavailable RossUrsula Admitting Unavailable Adamowicz, Bharath Admitting Unavailable Adamowicz, Bharath Attending Unavailable Demboske, Ana Rivas Attending Unavailable RossUrsula Referring Unavailable Demboske, Ana Rivas Attending Unavailable Demboske, Ana Rivas Attending Unavailable Demboske, Ana Rivas Attending Unavailable RossUrsula Admitting Unavailable RossUrsula Attending Unavailable RossUrsula Attending Unavailable Demboske, Ana Rivas Attending Unavailable Demboske, Ana Rivas Attending Unavailable Demboske, Ana Rivas Admitting Unavailable MD Ursula Love Attending Unavailable Demboske, Ana Rivas Attending Unavailable GOPAL, PARISA Attending Unavailable JAZMYN, ULISES Referring Unavailable JAZMYN, ULISES Referring Unavailable JAZMYN, ULISES Attending Unavailable JAZMYN, ULISES Admitting Unavailable JAZMYN, ULISES Attending Unavailable JAZMYN, ULISES Attending Unavailable MOUKARBELBLANKA Attending Unavailable Allergies Allergy Classification Reported Allergen(s) Allergy Type Date of Onset Reaction(s) Facility (20 sources) Penicillins; 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: [penicillins] Propensity to adverse reactions to drug 4 Hives, Weal (disorder) [facility] (1 source) Penicillins Drug allergy (disorder) 4 [facility] (1 source) Penicillins Propensity to adverse reactions to drug 4 [facility] (3 sources) No Known Medication Allergies; 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: [No Known Medication Allergies] Propensity to adverse reactions (disorder) [facility] Rep[facility] (1 source) Penicillin; 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: [penicillins] Drug Allergy Weal (disorder) [facility] [place] Medications Current Medications Medication Drug Class(es) Dates [...] day(s), # 90 tab(s), Refills(s) 0, Pharmacy: [facility]/pharmacy #[id number] Start Date: 04/01/22 Stop Date: 05/01/22 Status: [...] DAILY, # 90 tab(s), Refills(s) 1, Pharmacy: [facility]/pharmacy #[id number], 179, cm, 03/26/24 10:53:00 EDT, Height/Length Dosing, [...] Daily, # 30 tab(s), Refills(s) 0, Pharmacy: [facility]/pharmacy #[id number] Start Date: 04/01/22 Status: Ordered metFORMIN hydrochloride 500 mg oral tablet (20 sources) Biguanide Start: 5 metformin 500 mg Tab See Instructions, TAKE 2 TABLETS TWICE A DAY, # 360 tab(s), Refills(s) 1, Pharmacy: [facility], 179, cm, 09/09/24 11:22:00 EST, Height/Length Dosing, 79.8, kg, 09/09/24 11:22:00 EST, Weight Dosing Start Date: 10/17/24 Status: Ordered Start: 06-19-2024 metformin 500 mg Tab See Instructions, TAKE 2 TABLETS TWICE A DAY, # 360 tab(s), Refills(s) 1, Pharmacy: [facility], 179, cm, 03/26/24 10:53:00 EDT, Height/Length Dosing, 86, kg, 03/26/24 10:53:00 EDT, Weight Dosing Start Date: 06/19/24 Status: Ordered Start: 07-06-2023 metformin 500 mg Tab See Instructions, TAKE 2 TABLETS TWICE A DAY, # 360 tab(s), Refills(s) 1, Pharmacy: [facility], 178, cm, 12/18/23 13:19:00 EST, Height/Length Dosing, 89.1, kg, 12/18/23 13:19:00 EST, Weight Dosing Start Date: 12/19/23 Status: Ordered Start: 04-25-2023 take 2 tablets by mo uth twice daily metformin 500 mg Tab 1,000 mg = 2 tab(s), Oral, BID, TAKE TWO TABLETS BY MOUTH TWICE A DAY, # 360 tab(s), Refills(s) 1, Pharmacy: [facility], 178, cm, 12/19/22 9:57:00 EST, Height/Length Dosing, 90.4, kg, 12/19/22 9:57:00 EST, Weight Dosing Start Date: 04/25/23 Status: Ordered Start: 04-01-2022 End: 09-28-2022 take 2 tablets by mouth twice daily metformin 500 mg ER Tab 1,000 mg = 2 tab(s), Oral, BID, X 90 day(s), # 360 tab(s), Refills(s) 1, Pharmacy: [facility] Start Date: 04/01/22 Stop [...] DAILY, # 90 cap(s), Refills(s) 1, Pharmacy: [facility], 179, cm, 03/26/24 10:53:00 EDT, Height/Length Dosing, 86, kg, 03/26/24 10:53:00 EDT, Weight Dosing Start Date: 05/06/24 Status: Ordered Start: 11-20-2023 take 1 capsule by mo [facility] once daily omeprazole 20 mg Cap-DR 20 mg = 1 cap(s), Oral, Daily, # 90 cap(s), Refills(s) 1, Pharmacy: [facility], 178, cm, 08/29/23 14:28:00 EST, Height/Length Dosing, 90.8, kg, 08/29/23 14:28:00 EST, Weight Dosing Start Date: 11/20/23 Status: Ordered Start: 07-03-2023 take 1 capsule by mo [facility] once daily omeprazole 20 mg Cap-DR 20 mg = 1 cap(s), Oral, Daily, # 90 cap(s), Refills(s) 1, Pharmacy: [facility], 178, cm, 07/03/23 7:24:00 EDT, Height/Length Dosing, 90, kg, 07/03/23 7:24:00 EDT, Weight Dosing Start Date: 07/03/23 Status: Ordered Start: 08-29-2014 End: 09-28-2022 take 1 capsule by mouth once daily omeprazole 20 mg Cap-DR 20 mg = 1 cap(s), Oral, Daily, X 90 day(s), # 90 cap(s), Refills(s) 1, [facility] Start Date: 04/01/22 Stop Date: 09/28/22 Status: Ordered Comment on above: Take 1 capsule by [facility] once daily. ProFe 180 mg oral capsule (8 sources) Start: 12-25-2023 take 1 capsule by mouth once daily ProFe 180 mg oral capsule 180 mg = 1 cap(s), Oral, Daily, # 100 cap(s), Refills(s) 0, Pharmacy: [facility]/pharmacy #[id number], 178, cm, 12/18/23 13:19:00 [...] Daily, # 10 cap(s), Refills(s) 0, Pharmacy: [facility]/pharmacy #[id number], 178, cm, 07/19/23 11:20:00 [...] Coronary arteriosclerosis; 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: [Atherosclerotic heart disease of [place] coronary artery without angina pectoris] Onset: 4 [...] sources) Long-term current use of anticoagulant; 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: [senior care (current) use of 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] Onset: 11-28-2017 [...] Test Name Value Interpretation Reference Range Facility [facility] 11-14-2024 [facility] Electrophysiology Consult Note [place] [facility] Reason for visit: Afib 11/14/24 Pt here for Afib ablation 10/01/24 Patient here for H&P prior to afib ablation scheduled on 10/03/2024. Denies chest pain, SOB, and bleeding on Eliquis. Prior HPI: Marcelle Doherty is a 64 y.o. 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 PHAN. There is a history of prior A-fib ablation done at [facility] on 07/10/2017 by and was noted to have atrial flutter subsequently which was converted by cardioversion to sinus rhythm on 07/28/2017. Since then he has been following up with Jannet Gonzalez at [facility]. He is currently maintained on metoprolol and [...] and is quite symptomatic with this. His [id number] score is 3 with risk factors of [...] Determinants of Health Tobacco Use: Medium Risk (11/14/2024) Patient History Smoking Tobacco Use: Former Smokeless Tobacco Use: Never Passive Exposure: Not on file Alcohol Use: Not on file Financial Resource Strain: Not on file Food Insecurity: Not on file Transportation Needs: Not on file Physical Activity: Not on file Stress: Not on file Social Connections: Not on file Intimate Partner Violence: Unknown (12/07/2023) [place] Safety & Environment Fear of Current or Ex-Partner: Not on file Emotionally Abused: Not on file Physically Abused: Not on file Sexually Abused: Not on file Physically or Sexually Abused: Not on file Depression: Not on file Housing Stability: Not on file Utilities: Not on file Health Literacy: Not on file Allergies: Allergies Allergen Reactions Penicillins Hives Weight: 80.7kg Visit Vitals BP (!) 190/73 (BP Location: Right arm, Patient Position: Sitting) Pulse 70 Temp 36.3 ???C (97.3 ???F) (Temporal) Resp 18 SpO2 100% Smoking Status Former Meds: No current facility-administered medications on file prior to encounter. Current Outpatient Medications on File Prior to Encounter Medication Sig Dispense Refill apixaban (Eliquis) 5 mg tablet Take 1 tablet (5 mg) by mouth in the morning and at bedtime. 60 tablet 11 aspirin 81 mg chewable tablet aspirin 81 mg chewable tablet dilTIAZem (Cardizem) 30 mg immediate release tablet Take 1 tablet (30 mg) by mouth if needed (for palpitations/afib). (Patient taking differently: Take 60 mg by mouth if needed (for palpitations/afib).) 90 tablet 1 metFORMIN (Glucophage) 500 mg tablet metformin 500 mg tablet TAKE TWO TABLETS BY MOUTH TWICE A DAY ROS: Review of Systems Cardiovascular: Positive for palpitations (intermittent episodes of afib). Musculoskeletal: Positive for back pain and joint pain. All other systems reviewed and are negative. Physical Exam: Constitutional General Appearance: well-nourished, well-developed, appears stated age Level of Distress: comfortable Psychiatric Mental Status: alert, normal affect Orientation: oriented to time, place, and person Insight: good judgement Eyes Lids and Conjunctivae: non-injected, no xanthelasma ENMT Ears: no lesions on external ear Nose: no lesions on external nose Oropharynx: no cyanosis, no pallor Neck Neck: supple, trachea midline Carotid Arteries: bilateral normal upstroke, no bruits Jugular Veins: normal jugular venous pressure Thyroid: not enlarged Lungs Respiratory Effort: unlabored Chest Exam: normal curvature, no thoracic deformity Auscultation: clear, no wheezing, no rales, no rhonchi Cardiovascular Rate And Rhythm: reg (more content not included)... [facility] NURSNOTEon 11-14-2024 NURSNOTE Bob catheter removed per order. Patient tolerated well. No bleeding or soreness at site. Dressing to right groin also remains clean, dry and intact, no drainage or swelling noted. Site soft, no pain currently. Patient and patient's were advised to look for sudden dizziness, a feeling of having to pass out, fast heart rate or any bleeding and to call 911 if any of these occur at home. They were also advised that in case of any heavy bleeding beginning at home to hold pressure and call 911 also. No questions at this time, patient slowly getting dressed and ready for discharge. [facility] MARIE Received report from JENNIFER Davis. Patient has been flat for the 2 hour specified time and has been sitting upright at HOB 30. No bleeding noted at site, no swelling or tenderness. Patient is alert, oriented, eating crackers and drinking water, speaking with family. Will wait for another check before removing bob catheter and allowing patient to discharge per order. [facility] MARIE Photogrammetrist reviewed AVS with patient and at bedside, all questions answered. Patient signed AVS, copy given to . [facility] POCT GLUCOSE METER UNSOLICIT ED RESULTSon 11-14-2024 Glucose [Mass/Vol] 134 mg/dL High 70-105 [facility] Comment on above: Order Comment: Waive d Testing in the ED is performed under the ED CLIA certificate #[id number]. Result Comment: dspe ars Performed By: #### L [id number] ####[facility] ([facility]AKER)[address] [place] [address] Glucose [Mass/Vol] 150 mg/dL High 70-105 [facility] Comment on above: Order Comment: Waive d Testing in the ED is performed under the ED CLIA certificate #[id number]. Result Comment: [email or web address] [email or web address] Performed By: #### L [id number] ####[facility] ([employer])[address] [place] [address] PROTIME-INRon 11-14-2024 INR IN PPP BY COAGULATION ASSAY 1.06 Normal 0.90-1.10 [facility] Comment on above: Result Comment: ACCC P RECOMMENDED INR FOR WARFARIN THERAPY CONDITION INR PROPHYLAXIS OF VENOUS THROMBOSIS 2-3 (HIGH-RISK SURGERY) TREATMENT OF VENOUS THROMBOSIS 2-3 TREATMENT OF PULMONARY EMBOLISM 2-3 PREVENTION OF SYSTEMIC EMBOLISM: 2-3 ACUTE MYOCARDIAL INFARCTION TISSUE HEART VALVES VALVULAR HEART DISEASE ATRIAL FIBRILLATION RECURRENT SYSTEMIC EMBOLISM MECHANICAL HEART VALVE 2.5-3.5 FROM: ORAL ANTICOAGULANTS. MECHANISM OF ACTION, CLINICAL EFFECTIVENESS, AND OPTIMAL THERAPEUTIC RANGE. CHEST 1995;108:231S-246S. Performed By: #### L [id number] ####[facility] ([employer])[address] [place] [address] PROTHROMBIN TIME (PT) IN PPP BY COAGULATION ASSAY 13.8 Seconds Normal 12.3-14.8 [facility] Comment on above: Performed By: #### L [id number] ####[facility] ([employer])[address] [place] [address] Office Visiton 10-01-2024 Follow-up visit [id number] Marcelle Doherty 1960 [facility] Provider Department Center 10/01/2024 ULISES MATHEW [facility] Family History Problem Relation Age of Onset Coronary artery disease Father Atrial fibrillation Father Heart attack Brother Family Status - Relation Status Age at Father Brother Level of Service:59484 OK OFFICE/OUTPATIENT ESTABLISHED MOD MDM 30 MIN Normal [facility] 09-27-20 [facility] Case Information Case Priority: None Programs: -- Referral Source: [employer] Supervisor Referral Reason: Disease management Case Type: Chronic Care Management Risk Score: -- Case Status: Active (December 28, 2023) Date Assigned: December 19, 2023 Assigned By: Christian Hernandez Date Enrolled: December 28, 2023 Assigned Primary Personnel: Christian Hernandez Assigned Secondary Personnel: -- Case Physician: Ursula Love MD Ongoing AAA (abdominal aortic aneurysm) Aortic aneurysm BMI 28.0-28.9,adult BPH (benign prostatic hyperplasia) CAD in [place] artery Controlled type 2 diabetes mellitus without [...] person at home CM Preferred Spoken Language Uzbek CM Preferred Written Language Uzbek Preferred Communication Mode Verbal Ability to Read/Write Able to read, Able to write Preferred Salutation Mr. Preferred Method of Contact Cell Cell Phone [phone] Best Time to Visit or Contact 7-10 am Best Day to Visit or Contact No preference Appointment Reminders Patient portal, Other secured messaging Preferred Way to Send PHI Patient portal Preferred Mailing Address [address] [place] [address] Learning Style Pref Patient Verbal explanation Learning [...] Shares bed Support System Spouse/Significant other Primary Operator Assistant I Cementing of Home Medication Self Current DME at [...] Physical He (more content not included)... Normal [facility] Prep for Procedureon 024 Prep for Procedure [id number] Marcelle Doherty 1960 M Date Provider Department Center 09/11/2024 [facility] Family History Problem Relation Age of Onset Coronary artery disease Father Atrial fibrillation Father Heart attack Brother Family Status - Relation Status Age at Father Brother Normal [facility] Office Visiton 09-10-2024 Follow-up visit [id number] Marcelle Doherty 1960 M Date Provider Department Center 09/10/2024 [facility] Family History Problem Relation Age of Onset Coronary artery disease Father Atrial fibrillation Father Heart attack Brother Family Status - Relation Status Age at Father Brother Level of Service:66547 OK OFFICE/OUTPATIENT ESTABLISHED LOW MDM 20 MIN Reason for Visit and Comments: Follow-up [831299] - A Fib management Normal [facility] CBC w/ Auto Diffon 4 Basophils/100 WBC (Bld) 0.6 % Normal 0.0-2.0 [facility] Comment on above: Performed By: #### 2 [id number] #### [facility] [address] [place] [address] Basophils/Leukocytes Auto (Bld) [Pure # fraction] 0.0 E9/L Normal 0.0-0.2 [facility] Comment on above: Performed By: #### 2 [id number] #### [facility] [address] [place] [address] Eosinophils (Bld) [#/Vol] 0.1 E9/L Normal 0.0-0.5 [facility] Comment on above: Performed By: #### 2 [id number] #### [facility] [address] [place] [address] Eosinophils/100 WBC (Bld) 1.7 % Normal 0.0-8.0 [facility] Comment on above: Performed By: #### 2 [id number] #### [facility] [address] [place] [address] Erythrocyte distribution width (RBC) [Ratio] 13.9 % Normal 10.9-14.2 [facility] Comment on above: Performed By: #### 2 [id number] #### [facility] [address] [place] [address] Hematocrit (Bld) [Volume fraction] 39.6 % Normal 37.7-49.0 [facility] Comment on above: Performed By: #### 2 [id number] #### [facility] [address] [place] [address] Hemoglobin (Bld) [Mass/Vol] 14.0 g/dL Normal 13.5-17.5 [facility] Comment on above: Performed By: #### 2 [id number] #### [facility] [address] [place] [address] Lymphocytes (Bld) [#/Vol] 1.5 E9/L Normal 1.0-4.0 [facility] Comment on above: Performed By: #### 2 485508 #### [facility] [address] [place] [address] Lymphocytes/100 WBC (Bld) 28.4 % Normal 14.0-50.0 [facility] Comment on above: Performed By: #### 2 [id number] #### [facility] [address] [place] [address] MCH (RBC) [Entitic mass] 31.9 pg Normal 27.0-34.0 [facility] Comment on above: Performed By: #### 2 [id number] #### [facility] [address] [place] [address] MCHC (RBC) [Mass/Vol] 35.3 g/dL Normal 31.4-36.0 [facility] Comment on above: Performed By: #### 2 107670 #### [facility] [address] [place] [address] MCV (RBC) [Entitic vol] 90.5 fL Normal 80.0-100.0 [facility] Comment on above: Performed By: #### 2 180702 #### [facility] [address] [place] [address] Monocytes (Bld) [#/Vol] 0.6 E9/L Normal 0.2-1.0 [facility] Comment on above: Performed By: #### 2 552725 #### [facility] [address] [place] [address] Neutrophils (Bld) [#/Vol] 3.2 E9/L Normal 2.0-7.5 [facility] Comment on above: Performed By: #### 2 136883 #### [facility] [address] [place] [address] Neutrophils/100 WBC (Bld) 58.2 % Normal 36.0-75.0 [facility] Comment on above: Performed By: #### 2 946085 #### [facility] [address] [place] [address] Platelet mean volume (Bld) [Entitic vol] 9.3 fL Normal 6.4-10.8 [facility] Comment on above: Performed By: #### 2 150931 #### [facility] [address] [place] [address] Platelets (Bld) [#/Vol] 144.0 E9/L Low 150.0-500.0 [facility] Comment on above: Performed By: #### 2 304017 #### [facility] [address] [place] [address] RBC (Bld) [#/Vol] 4.4 E12/L Normal 4.3-5.9 [facility] Comment on above: Performed By: #### 2 847694 #### [facility] [address] [place] [address] WBC corrected for nucl RBC Auto (Bld) [#/Vol] 5.4 E9/L Normal 4.0-11.0 [facility] Comment on above: Performed By: #### 2 [id number] #### [facility] [address] [place] [address] CHEMISTRYOrdered By: SYSTEM SYSTEM on 09-04-2024 Albumin [...] [Mass ratio] 16 mg/mg Normal 10 - Remisol Chem CMPon 09-04-2024 Albumin [Mass/Vol] 4.2 g/dL Normal 3.3-5.0 [facility] Comment on above: Performed By: #### 2 [id number] #### [facility] [address] [place] [address] Albumin/Globulin (S) [Mass conc ratio] 2.5 High 1.1-2.2 [facility] Comment on above: Performed By: #### 2 135385 #### [facility] [address] [place] [address] ALP [Catalytic activity/Vol] 53 Int._Unit/L Normal 21-98 [facility] Comment on above: Performed By: #### 2 095326 #### [facility] [address] [place] [address] ALT No additional P-5'-P [Catalytic activity/Vol] 41 Int._Unit/L Normal 6-46 [facility] Comment on above: Performed By: #### 2 024240 #### [facility] [address] [place] [address] Anion gap [Moles/Vol] 12 mmol/L Normal 6-16 [facility] Comment on above: Performed By: #### 2 022846 #### [facility] [address] [place] [address] AST [Catalytic activity/Vol] 23 Int._Unit/L Normal 5-43 [facility] Comment on above: Performed By: #### 2 385362 #### [facility] [address] [place] [address] Bilirubin [Mass/Vol] 1.6 mg/dL High 0.0-1.1 [facility] Comment on above: Performed By: #### 2 915268 #### [facility] [address] [place] [address] Calcium [Mass/Vol] 9.4 mg/dL Normal 8.9-11.1 [facility] Comment on above: Performed By: #### 2 615520 #### [facility] [address] [place] [address] Chloride [Moles/Vol] 99 mmol/L Low 101-111 [facility] Comment on above: Performed By: #### 2 535662 #### [facility] [address] [place] [address] CO2 [Moles/Vol] 28 mmol/L Normal 21-31 [facility] Comment on above: Performed By: #### 2 181795 #### [facility] [address] [place] [address] Creatinine [Mass/Vol] 0.8 mg/dL Normal 0.5-1.3 [facility] Comment on above: Performed By: #### 2 136426 #### [facility] [address] [place] [address] Globulin (S) [Mass/Vol] 1.7 g/dL Normal 1.4-4.0 [facility] Comment on above: Performed By: #### 2 104912 #### [facility] [address] [place] [address] Glucose [Mass/Vol] 121 mg/dL Normal 55-199 [facility] Comment on above: Performed By: #### 2 112418 #### [facility] [address] [place] [address] Potassium [Moles/Vol] 4.4 mmol/L Normal 3.5-5.3 [facility] Comment on above: Performed By: #### 2 355062 #### [facility] [address] [place] [address] Protein [Mass/Vol] 5.9 g/dL Low 6.0-7.8 [facility] Comment on above: Performed By: #### 2 136625 #### [facility] [address] [place] [address] Sodium [Moles/Vol] 135 mmol/L Normal 135-145 [facility] Comment on above: Performed By: #### 2 153166 #### [facility] [address] [place] [address] Urea nitrogen [Mass/Vol] 13 mg/dL Normal 5-21 [facility] Comment on above: Performed By: #### 2 [id number] #### [facility] [address] [place] [address] Urea nitrogen/Creatinine [Mass ratio] 16 No Units Normal 10-20 [facility] Comment on above: Performed By: #### 2 [id number] #### [facility] [address] [place] [address] Ferritinon 09-04-2024 Ferritin [Mass/Vol] 146 ng/mL Normal 24-336 [facility] Comment on above: Performed By: #### 2 [id number] #### [facility] [address] [place] [address] HEMATOLOGYOrdered By: SYSTEM SYSTEM on 09-04-2024 Basophils/100 [...] 09-04-2024 Iron [Mass/Vol] 118 microgram/dL Normal 35-153 [facility] Comment on above: Performed By: #### 2 [id number] #### [facility] [address] [place] [address] Iron Saturationon 09-04-2024 Iron binding capacity [Mass/Vol] 309 microgram/dL Normal 250-400 [facility] Comment on above: Performed By: #### 2 [id number] #### [facility] [address] [place] [address] Iron saturation [Mass fraction] 38 % Normal 20-50 [facility] Comment on above: Performed By: #### 2 [id number] #### [facility] [address] [place] [address] Transferrinon 09-04-2024 Transferrin [Mass/Vol] 221 mg/dL Normal 200-370 [facility] Comment on above: Performed By: #### 2 [id number] #### [facility] [address] [place] [address] eGFRon 09-04-2024 eGFR 97 mL/min/1.73 m2 Normal >=59 [facility] Comment on above: Performed By: #### 1 [id number] #### [facility] [address] [place] [address] 36on 08-02-2024 36 Late entry Spoke with Bonita 07/23/24. Explained that patient would need to come to [facility] to have 24hr BP monitor placed. Options for returning would depend on when patient was coming to have it placed. Bonita was going to call and speak with patient and let me know. [facility] Ambulatory Visit Summaryon 1 Ambulatory Visit Summary Ambulatory Visit Summary MARCELLE DOHERTY :1960 Visit Date:08/01/2024 Ambulatory Visit Instructions Your Diagnosis CAD in [place] artery Controlled type 2 diabetes mellitus without [...] Oncology 2023 2:00 PM EST With: Where: Oncology Monday 11:00 AM EST With: Tj BURTON, Ana Evelyn Where: Oncology 2023 2:00 PM EST With: Where: [facility] 2024 2:15 PM EST With: Where: [facility] 2024 2:15 PM EST With: Where: [facility] Monday 8:00 AM EST With: Where: [address] [address]- 2024 2:15 PM EST With: Where: [facility] 2024 2:05 PM EDT With: Where: [facility] 2024 9:15 AM EDT With: Ursula Love MD Where: [address] [address]- 2024 2:15 PM EDT With: Where: FT [...] a da (more content not included)... Normal [facility] Family Medicine Office/Clini c Noteon [...] + Bowel sounds Assessment/Plan 1. CAD in [place] artery (I25.10: Atherosclerotic heart disease of [place] coronary artery without angina pectoris) Continue monitoring [...] Current tobacco (more content not included)... Normal [facility] Comment on above: Result Comment: Elec tronically Signed By: Km NIELSON, Ursula Luis.br\Date and Time Signed: 08/01/24 11:31 EDT [facility] 07-31-20 [facility] Case Information Case Priority: None Programs: -- Referral Source: [employer] Super[employer] Referral Reason: Disease management Case Type: Chronic Care Management Risk Score: -- Case Status: Active (December 28, 2023) Date Assigned: December 19, 2023 Assigned By: Christian Hernandez Date Enrolled: December 28, 2023 Assigned Primary Personnel: Christian Hernandez Assigned Secondary Personnel: -- Case Physician: Ursula Love MD Ongoing AAA (abdominal aortic aneurysm) Aortic aneurysm BMI 28.0-28.9,adult BPH (benign prostatic hyperplasia) CAD in [place] artery Controlled type 2 diabetes mellitus without [...] person at home CM Preferred Spoken Language Uzbek CM Preferred Written Language Uzbek Preferred Communication Mode Verbal Ability to Read/Write Able to read, Able to write Preferred Salutation Mr. Preferred Method of Contact Cell Cell Phone [phone] Best Time to Visit or Contact 7-10 am Best Day to Visit or Contact No preference Appointment Reminders Patient portal, Other secured messaging Preferred Way to Send PHI Patient portal Preferred Mailing Address [address] [place] [address] Learning Style Pref Patient Verbal explanation Learning [...] Shares bed Support System Spouse/Significant other Primary Operator Assistant I Cementing of Home Medication Self Current DME at Home No Currently Receiving Skilled Services No Skilled Service Need (more content not included)... Normal [facility] 36on 07-19-[address] [...] this and what it all entails? Thanks. [facility] Orders Onlyon 07-15-2024 Orders Only [id number] ChasMarcelle Maria D 1960 M Date Provider Department Center 07/15/2024 Aba5ALESHA MILES Family History Problem Relation Age of Onset Coronary artery disease Father Atrial fibrillation Father Heart attack Brother Family Status - Relation Status Age at Father Brother [facility] Office Visiton 07-12-2024 Follow-up visit [id number] DohertyMarcelle 1960 Date Provider Department Center 07/12/2024 [id number] ERAZO WENDY Michaels Family History Problem Relation Age of Onset Coronary artery disease Father Atrial fibrillation Father Heart attack Brother Family Status - Relation Status Age at Father Brother Level of Service:30458 OK OFFICE/OUTPATIENT ESTABLISHED MOD MDM 30 MIN [facility] Orders Onlyon 07-11-2024 Orders Only [id number] DohertyMarcelle Maria D 1960 Date Provider Department Center 07/11/2024 [id number] MONSALVE Family History Problem Relation Age of Onset Coronary artery disease Father Atrial fibrillation Father Heart attack Brother Family Status - Relation Status Age at Father Brother [facility] Population Healthon 06-28-20 Population Health Population Health Case Information Case Priority: None Programs: -- Referral Source: [employer] Supervisor Referral Reason: Disease management Case Type: Chronic Care Management Risk Score: -- Case Status: Active (December 28, 2023) Date Assigned: December 19, 2023 Assigned By: Christian Hernandez Date Enrolled: December 28, 2023 Assigned Primary Personnel: Christian Hernandez Assigned Secondary Personnel: -- Case Physician: Ursula Love MD Ongoing AAA (abdominal aortic aneurysm) Aortic aneurysm BMI 28.0-28.9,adult BPH (benign prostatic hyperplasia) CAD in [place] artery Controlled type 2 diabetes mellitus without [...] person at home CM Preferred Spoken Language Uzbek CM Preferred Written Language Uzbek Preferred Communication Mode Verbal Ability to Read/Write Able to read, Able to write Preferred Salutation MrNelly Preferred Method of Contact Cell Cell Phone [phone] Best Time to Visit or Contact 7-10 am Best Day to Visit or Contact No preference Appointment Reminders Patient portal, Other secured messaging Preferred Way to Send PHI Patient portal Preferred Mailing Address [address] [place] [address], [address] Learning Style Pref Patient Verbal explanation Learning [...] Shares bed Support System Spouse/Significant other Primary Operator Assistant I Cementing of Home Medication Self Current DME at Home No Currently Receiving Skilled Services No Skilled Service Need (more content not included)... Normal [facility] 06-11-20 [facility] Case Information Case Priority: None Programs: -- Referral Source: [employer] Supervisor Referral Reason: Disease management Case Type: Chronic Care Management Risk Score: -- Case Status: Active (December 28, 2023) Date Assigned: December 19, 2023 Assigned By: Christian Hernandez Date Enrolled: December 28, 2023 Assigned Primary Personnel: Christian Hernandez Assigned Secondary Personnel: -- Case Physician: Ursula Love MD Problems Ongoing AAA (abdominal aortic aneurysm) Aortic aneurysm BMI 28.0-28.9,adult BPH (benign prostatic hyperplasia) CAD in [place] artery Controlled type 2 diabetes mellitus without [...] person at home CM Preferred Spoken Language Uzbek CM Preferred Written Language Uzbek Preferred Communication Mode Verbal Ability to Read/Write Able to read, Able to write Preferred Salutation MrNelly Preferred Method of Contact Cell Cell Phone [phone] Best Time to Visit or Contact 7-10 am Best Day to Visit or Contact No preference Appointment Reminders Patient portal, Other secured messaging Preferred Way to Send PHI Patient portal Preferred Mailing Address [address] [place] [address] Learning Style Pref Patient Verbal explanation Learning [...] Shares bed Support System Spouse/Significant other Primary Operator Assistant I Cementing of Home Medication Self Current DME at Home No Currently Receiving Skilled Services No Skilled Service Needs Anticipated No Barriers to Care None Home Barriers None (more content not included)... Normal [facility] 36on 06-04-2024 36 Regarding carotid duplex performed on 05/29/2024: MERVAT Kendrick MA Let them know less than 49% stenosis of both carotids- really very good- Continue all meds and we will see them next time Probably a repeat carotid in 1-3 years- unless symptoms Patient made aware via email. Normal [facility] Population Healthon 04-25-20 24 Population Health Population Health Case Information Case Priority: None Programs: -- Referral Source: [employer] Supervisor Referral Reason: Disease management Case Type: Chronic Care Management Risk Score: -- Case Status: Active (December 28, 2023) Date Assigned: December 19, 2023 Assigned By: Christian Hernandez Date Enrolled: December 28, 2023 Assigned Primary Personnel: Christian Hernandez Assigned Secondary Personnel: -- Case Physician: Ursula Love MD Ongoing AAA (abdominal aortic aneurysm) Aortic aneurysm BMI 28.0-28.9,adult BPH (benign prostatic hyperplasia) CAD in [place] artery Controlled type 2 diabetes mellitus without [...] person at home CM Preferred Spoken Language Uzbek CM Preferred Written Language Uzbek Preferred Communication Mode Verbal Ability to Read/Write Able to read, Able to write Preferred Salutation MrNelly Preferred Method of Contact Cell Cell Phone [phone] Best Time to Visit or Contact 7-10 am Best Day to Visit or Contact No preference Appointment Reminders Patient portal, Other secured messaging Preferred Way to Send PHI Patient portal Preferred Mailing Address [address] [place] [address] Learning Style Pref Patient Verbal explanation Learning [...] Shares bed Support System Spouse/Significant other Primary Operator Assistant I Cementing of Home Medication Self Current DME at Home No Currently Receiving Skilled Services No Skilled Service Needs Anticipated No Barriers to Care None Home Barriers None Employment Status Retired Financial Issues None Sources of Income Socia (more content not included)... Normal [facility] Ambulatory Visit Summaryon 0 03-26-2024 [...] Oncology Monday 8:00 AM EST With: Where: [facility] [place] Normal [facility] Family Medicine Office/Clini c Noteon [...] Daily, # 100 cap(s), Refills(s) 0, Pharmacy: [facility]/pharmacy #[id number], 178, cm, 12/18/23 13:19:00 EST, Height/Length Dosing, 89.1, kg, 12/18/23 13:19:00 EST, Weight Dosing lisinopril, See Instructions, TAKE 1 TABLET DAILY, # 90 tab(s), Refills(s) 1, Pharmacy: [facility]/pharmacy #[id number], 179, cm, 03/26/24 10:53:00 EDT, Height/Length Dosing, 86, kg, 03/26/24 10:53:00 EDT, Weight Dosing Follow-up No qualifying data available Problem List/Past Medical History Ongoing AAA (abdominal aortic aneurysm) Aortic aneurysm BMI 28.0-28.9,adult BPH (benign prostatic hyperplasia) CAD in [place] artery Controlled type 2 diabetes mellitus without [...] by dr (more content not included)... Normal [facility] Comment on above: Result Comment: Elec tronically Signed By: Km NIELSON, Ursula Porter\.br\Date and Time Signed: 03/26/24 16:51 EDT Physician Referralon 024 Physician Referral [id number] .[id number] Selene [facility] Population Healthon 03-22-20 24 Population Health Case Information Case Priority: None Programs: -- Referral Source: Hospital Liaison Referral Reason: Disease management Case Type: Chronic Care Management Risk Score: -- Case Status: Active (December 28, 2023) Date Assigned: December 19, 2023 Assigned By: Christian Hernandez Date Enrolled: December 28, 2023 Assigned Primary Personnel: Christian Hernandez Assigned Secondary Personnel: -- Case Physician: Ursula Love MD Ongoing AAA (abdominal aortic aneurysm) Aortic aneurysm BMI 28.0-28.9,adult BPH (benign prostatic hyperplasia) CAD in [place] artery Controlled type 2 diabetes mellitus without [...] person at home CM Preferred Spoken Language Uzbek CM Preferred Written Language Uzbek Preferred Communication Mode Verbal Ability to Read/Write Able to read, Able to write Preferred Salutation MrNelly Preferred Method of Contact Cell Cell Phone [phone] Best Time to Visit or Contact 7-10 am Best Day to Visit or Contact No preference Appointment Reminders Patient portal, Other secured messaging Preferred Way to Send PHI Patient portal Preferred Mailing Address [address] [place] [address], [address] Learning Style Pref Patient Verbal explanation Learning [...] Shares bed Support System Spouse/Significant other Primary Operator Assistant I Cementing of Home Medication Self Current DME at Home No Currently Receiving Skilled Services No Skilled Service Needs Anticipated No Barriers to Care None Home Barriers None Employment Status Retired Financial Issues None Sources of Income Social Security Pat (more content not included)... Normal [facility] Consent for Treatmenton 02-15 Consent for Treatment [id number] Normal [facility] Oncology Progress Noteon Oncology Progress Note Chief Complaint b12 Deficiency; no concerns blood pressure at home 111/62 Diagnoses 1. Iron deficiency anemia (D50.9: Iron deficiency anemia, unspecified) 2. Intestinal malabsorption (K90.9: Intestinal malabsorption, unspecified) 3. B12 deficiency (E53.8: Deficiency of other specified B group vitamins) Oncological History/ROS/PE/Assess ment and Plan Mr. Doherty is a 63 [...] a colonoscopy done in Sep 2023 at [facility] after positive Cologuard test. This showed [...] stable Follow-up With When Contact Information Tj BURTON, Ana Rivas, ONC [facility] [address] [place] [phone] Additional Instructions: cbc, cmp, iron studies in 3mo and 6mo follow-up in 6mo with MEDICAL ASSISTANT Medications amLODIPine 5 mg Tab, Oral, Daily [...] (DoT), 100 (more content not included)... Normal [facility] CBC w/ Auto Diffon 4 Acanthocytes LM Ql (Bld) PRESENT Invalid Interpretation Code [facility] Comment on above: Performed By: #### 2 [id number] #### [facility] [address] [place] [address] Anisocytosis Ql (Bld) PRESENT Invalid Interpretation Code [facility] Comment on above: Performed By: #### 2 [id number] #### [facility] [address] [place] [address] Basophils/100 WBC (Bld) 0.8 % Normal 0.0-2.0 [facility] Comment on above: Performed By: #### 2 [id number] #### [facility] [address] [place] [address] Basophils/Leukocytes Auto (Bld) [Pure # fraction] 0.0 E9/L Normal 0.0-0.2 [facility] Comment on above: Performed By: #### 2 [id number] #### [facility] [address] [place] [address] Eosinophils (Bld) [#/Vol] 0.2 E9/L Normal 0.0-0.5 [facility] Comment on above: Performed By: #### 2 [id number] #### [facility] [address] [place] [address] Eosinophils/100 WBC (Bld) 3.7 % Normal 0.0-8.0 [facility] Comment on above: Performed By: #### 2 490262 #### [facility] [address] [place] [address] Erythrocyte distribution width (RBC) [Ratio] 27.1 % High 10.9-14.2 [facility] Comment on above: Performed By: #### 2 [id number] #### [facility] [address] [place] [address] Hematocrit (Bld) [Volume fraction] 40.0 % Normal 37.7-49.0 [facility] Comment on above: Performed By: #### 2 474398 #### [facility] [address] [place] [address] Hemoglobin (Bld) [Mass/Vol] 13.4 g/dL Low 13.5-17.5 [facility] Comment on above: Performed By: #### 2 079689 #### [facility] [address] [place] [address] Hypochromia Auto Ql (Bld) PRESENT Invalid Interpretation Code [facility] Comment on above: Performed By: #### 2 382007 #### [facility] [address] [place] [address] Lymphocytes (Bld) [#/Vol] 1.6 E9/L Normal 1.0-4.0 [facility] Comment on above: Performed By: #### 2 546399 #### [facility] [address] [place] [address] Lymphocytes/100 WBC (Bld) 32.5 % Normal 14.0-50.0 [facility] Comment on above: Performed By: #### 2 807083 #### [facility] [address] [place] [address] MCH (RBC) [Entitic mass] 27.3 pg Normal 27.0-34.0 [facility] Comment on above: Performed By: #### 2 444906 #### [facility] [address] [place] [address] MCHC (RBC) [Mass/Vol] 33.6 g/dL Normal 31.4-36.0 [facility] Comment on above: Performed By: #### 2 748475 #### [facility] [address] [place] [address] MCV (RBC) [Entitic vol] 81.4 fL Normal 80.0-100.0 [facility] Comment on above: Performed By: #### 2 [id number] #### [facility] [address] [place] [address] Monocytes (Bld) [#/Vol] 0.4 E9/L Normal 0.2-1.0 [facility] Comment on above: Performed By: #### 2 467323 #### [facility] [address] [place] [address] Neutrophils (Bld) [#/Vol] 2.7 E9/L Normal 2.0-7.5 [facility] Comment on above: Performed By: #### 2 771073 #### [facility] [address] [place] [address] Neutrophils/100 WBC (Bld) 55.1 % Normal 36.0-75.0 [facility] Comment on above: Performed By: #### 2 361412 #### [facility] [address] [place] [address] Ovalocytes LM Ql (Bld) PRESENT Invalid Interpretation Code [facility] Comment on above: Performed By: #### 2 [id number] #### [facility] [address] [place] [address] Platelet mean volume (Bld) [Entitic vol] 9.9 fL Normal 6.4-10.8 [facility] Comment on above: Performed By: #### 2 062108 #### [facility] [address] [place] [address] Platelets (Bld) [#/Vol] 116.0 E9/L Low 150.0-500.0 [facility] Comment on above: Performed By: #### 2 643809 #### [facility] [address] [place] [address] RBC (Bld) [#/Vol] 4.9 E12/L Normal 4.3-5.9 [facility] Comment on above: Performed By: #### 2 416515 #### [facility] [address] [place] [address] RBC size Nom (Bld) SEE MORPHOLOGY Invalid Interpretation Code [facility] Comment on above: Performed By: #### 2 [id number] #### [facility] [address] [place] [address] WBC corrected for nucl RBC Auto (Bld) [#/Vol] 5.0 E9/L Normal 4.0-11.0 [facility] Comment on above: Performed By: #### 2 609535 #### [facility] [address] [place] [address] CHEMISTRYOrdered By: SYSTEM SYSTEM on 03-12-2024 Albumin [...] 03-12-2024 Albumin [Mass/Vol] 4.3 g/dL Normal 3.3-5.0 [facility] Comment on above: Performed By: #### 2 845762 #### [facility] [address] [place] [address] Albumin/Globulin (S) [Mass conc ratio] 2.3 High 1.1-2.2 [facility] Comment on above: Performed By: #### 2 458555 #### [facility] [address] [place] [address] ALP [Catalytic activity/Vol] 54 Int._Unit/L Normal 21-98 [facility] Comment on above: Performed By: #### 2 743426 #### [facility] [address] [place] [address] ALT No additional P-5'-P [Catalytic activity/Vol] 47 Int._Unit/L High 6-46 [facility] Comment on above: Performed By: #### 2 645376 #### [facility] [address] [place] [address] Anion gap [Moles/Vol] 12 mmol/L Normal 6-16 [facility] Comment on above: Performed By: #### 2 641357 #### [facility] [address] [place] [address] AST [Catalytic activity/Vol] 30 Int._Unit/L Normal 5-43 [facility] Comment on above: Performed By: #### 2 891881 #### [facility] [address] [place] [address] Bilirubin [Mass/Vol] 1.8 mg/dL High 0.0-1.1 [facility] Comment on above: Performed By: #### 2 830745 #### [facility] [address] [place] [address] Calcium [Mass/Vol] 9.1 mg/dL Normal 8.9-11.1 [facility] Comment on above: Performed By: #### 2 820381 #### [facility] [address] [place] [address] Chloride [Moles/Vol] 102 mmol/L Normal 101-111 [facility] Comment on above: Performed By: #### 2 699963 #### [facility] [address] [place] [address] CO2 [Moles/Vol] 26 mmol/L Normal 21-31 [facility] Comment on above: Performed By: #### 2 903547 #### [facility] [address] [place] [address] Creatinine [Mass/Vol] 0.8 mg/dL Normal 0.5-1.3 [facility] Comment on above: Performed By: #### 2 329029 #### [facility] [address] [place] [address] Globulin (S) [Mass/Vol] 1.9 g/dL Normal 1.4-4.0 [facility] Comment on above: Performed By: #### 2 743766 #### [facility] [address] [place] [address] Glucose [Mass/Vol] 153 mg/dL Normal 55-199 [facility] Comment on above: Performed By: #### 2 953546 #### [facility] [address] [place] [address] Potassium [Moles/Vol] 4.7 mmol/L Normal 3.5-5.3 [facility] Comment on above: Performed By: #### 2 407913 #### [facility] [address] [place] [address] Protein [Mass/Vol] 6.2 g/dL Normal 6.0-7.8 [facility] Comment on above: Performed By: #### 2 987550 #### [facility] [address] [place] [address] Sodium [Moles/Vol] 135 mmol/L Normal 135-145 [facility] Comment on above: Performed By: #### 2 665625 #### [facility] [address] [place] [address] Urea nitrogen [Mass/Vol] 9 mg/dL Normal 5-21 [facility] Comment on above: Performed By: #### 2 499672 #### [facility] [address] [place] [address] Urea nitrogen/Creatinine [Mass ratio] 11 No Units Normal 10-20 [facility] Comment on above: Performed By: #### 2 220391 #### [facility] [address] [place] [address] Consent for Treatmenton 02-14 Consent for Treatment [id number]#1 .00TIFF Normal [facility] Ferritinon 03-12-2024 Ferritin [Mass/Vol] 179 ng/mL Normal 24-336 [facility] Comment on above: Performed By: #### 2 [id number] #### [facility] Laboratory [address] [place] [address] HEMATOLOGYOrdered By: SYSTEM SYSTEM on 03-12-2024 Acanthocytes [...] Normal 35-153 [facility] Comment on above: Performed By: #### 2 032332 #### [facility] Laboratory [address] [place] [address] Iron Saturationon 03-12-2024 Iron binding capacity [Mass/Vol] 326 microgram/dL Normal 250-400 [facility] Comment on above: Performed By: #### 2 070149 #### [facility] [address] [place] [address] Iron saturation [Mass fraction] 36 % Normal 20-50 [facility] Comment on above: Performed By: #### 2 678367 #### [facility] [address] [place] [address] Transferrinon 03-12-2024 Transferrin [Mass/Vol] 233 mg/dL Normal 200-370 [facility] Comment on above: Performed By: #### 2 193996 #### [facility] [address] [place] [address] eGFRon 03-12-2024 eGFR 98 mL/min/1.73 m2 Normal >=59 [facility] Comment on above: Order Comment: Order added by Discern Expert. Performed By: #### 1 [id number] #### [facility] [address] [place] [address] Consent for Treatmenton Consent for Treatment [id number] 405 [id number]#1 .00TIFF Normal [facility] Consent for Treatmenton 01-15 Consent for Treatment [id number] 404 [id number]#1 .00TIFF Normal [facility] Consent for Treatmenton 01-14 Consent for Treatment [id number] 404 [id number]#1 .00TIFF Normal [facility] Consenton 01-31-2024 Consent [id number]# 1.00TIFF Normal [facility] Outside Diabetes Eye Examon 01-31-2024 Outside Diabetes Eye Exam [id number]#1 .00TIFF Normal [facility] Population Healthon 01-26-20 24 Population Health Case Information Case Priority: None Programs: -- Referral Source: Hospital Liaison Referral Reason: Disease management Case Type: Chronic Care Management Risk Score: -- Case Status: Active (December 28, 2023) Date Assigned: December 19, 2023 Assigned By: Christian Hernandez Date Enrolled: December 28, 2023 Assigned Primary Personnel: Christian Hernandez Assigned Secondary Personnel: -- Case Physician: Ursula Love MD Ongoing AAA (abdominal aortic aneurysm) Aortic aneurysm BMI 28.0-28.9,adult BPH (benign prostatic hyperplasia) CAD in [place] artery Controlled type 2 diabetes mellitus without [...] person at home CM Preferred Spoken Language Uzbek CM Preferred Written Language Uzbek Preferred Communication Mode Verbal Ability to Read/Write Able to read, Able to write Preferred Salutation Preferred Method of Contact Cell Cell Phone [phone] Best Time to Visit or Contact 7-10 am Best Day to Visit or Contact No preference Appointment Reminders Patient portal, Other secured messaging Preferred Way to Send PHI Patient portal Preferred Mailing Address [address] [place] [address] Learning Style Pref Patient Verbal explanation Learning [...] Shares bed Support System Spouse/Significant other Primary Operator Assistant I Cementing of Home Medication Self Current DME at Home No Currently Receiving Skilled Services No Skilled Service Needs Anticipated No Barriers to Care None Home Barriers None Employment Status Retired Financial Issues None Sources of Income Social Security Pat (more content not included)... Normal [facility] Consent for Treatmenton 01-14 Consent for Treatment [id number] 404 [id number]#1 .00TIFF Normal [facility] Oncology Progress Noteon Oncology Progress [...] Transferrin Oncological History/ROS/PE/Assess ment and Plan Mr. Doherty is a 63 [...] his nasa (more content not included)... Normal [facility] Free K+L Lt Chains,Qn,Son Immunoglobulin light chains.kappa.free (S) [Mass/Vol] 19.0 mg/L Invalid Interpretation Code 3.3-19.4 [facility] Comment on above: Performed By: #### 2 752733, 9426895, 5322070, 3694487, 4478609, 2265882, 6812159, 44672863, 233152041 ####[facility] [address] [place] [address] Immunoglobulin light chains.kappa.free/Immu noglobulin light chains.lambda.free (S) [Mass ratio] 1.62 Invalid Interpretation Code 0.26-1.65 [facility] Comment on above: Result Comment: Perf ormed at: [facility] [address], [place] [id number] PhD Nicole Fang Performed By: #### 2 419175, 2693769, 8597004, 7843922, 4756531, 4132085, 9266523, 17887443, 737956371 ####[facility] [address] [place] [address] Immunoglobulin light chains.lambda.free [Mass/Vol] 11.7 mg/L Invalid Interpretation Code 5.7-26.3 [facility] Comment on above: Performed By: #### 2 695334, 7651911, 4817636, 3354090, 5074235, 6723668, 1514609, 57807051, 288630790 ####[facility] [address] [place] [address] Immunofixation Serumon 01-16 IgA [Mass/Vol] 87 mg/dL Invalid Interpretation Code 61-437 [facility] Comment on above: Performed By: #### 2 003542, 1509220, 8940008, 2242819, 3308735, 7592625, 4462474, 27401421, 963098226 ####[facility] [address] [place] [address] IgG [Mass/Vol] 406 mg/dL Low 603-1613 [facility] Comment on above: Performed By: #### 2 479905, 1932897, 9403935, 0504083, 5772706, 2083808, 7161082, 31278257, 534593353 ####[facility] [address] [place] [address] IgM [Mass/Vol] 136 mg/dL Invalid Interpretation Code 20-172 [facility] Comment on above: Result Comment: Perf ormed at: [facility] [address] [id number] PhD Nicole Fang Performed By: #### 2 434660, 3340066, 0895943, 7486851, 9725703, 9512460, 8229036, 04542370, 490205044 ####[facility] [address] [place] [address] Protein Fractions [Interp] Comment Invalid Interpretation Code [facility] Comment on above: Result Comment: No m onoclonality detected. Performed By: #### 2 307498, 1224888, 7171062, 3504965, 2734924, 7341350, 2279136, 88757291, 927212732 ####[facility] [address] [place] [address] SPEon 01-17-2024 Albumin [Mass/Vol] 3.6 g/dL Invalid Interpretation Code 2.9-4.4 [facility] Comment on above: Performed By: #### 2 316260, 6860484, 8119567, 9699379, 7189723, 8388096, 5360758, 11562363, 066962405 ####[address] [place] [address] Albumin/Globulin [Mass ratio] 1.8 {ratio} High 0.7-1.7 [facility] Comment on above: Performed By: #### 2 081424, 0140023, 0156528, 1622964, 3996109, 9044180, 9493818, 52863076, 244150839 ####[address] [address] Alpha 1 globulin Elph [Mass/Vol] 0.2 g/dL Invalid Interpretation Code 0.0-0.4 [facility] Comment on above: Performed By: #### 2 124707, 3994862, 4828844, 8691747, 3827341, 9144614, 3649217, 75342116, 152658842 ####[address] [place] [address] Alpha 2 globulin Elph [Mass/Vol] 0.6 g/dL Invalid Interpretation Code 0.4-1.0 [facility] Comment on above: Performed By: #### 2 835293, 8964544, 5758558, 0159300, 4621147, 8875461, 6661902, 24416602, 516788968 ####[address] [place] [address] Beta globulin Elph [Mass/Vol] 0.8 g/dL Invalid Interpretation Code 0.7-1.3 [facility] Comment on above: Performed By: #### 2 931981, 9368362, 7715736, 9639145, 7334453, 0130124, 8769741, 60453289, 819108905 ####[facility] [address] [place] [address] Gamma globulin Elph [Mass/Vol] 0.4 g/dL Invalid Interpretation Code 0.4-1.8 [facility] Comment on above: Performed By: #### 2 169110, 1669191, 2799796, 5531513, 1003617, 6854586, 8926370, 70316188, 486351566 ####[facility] [address] [place] [address] Globulin (S) [Mass/Vol] 2.0 g/dL Low 2.2-3.9 [facility] Comment on above: Performed By: #### 2 057717, 7922828, 3803805, 0832991, 8615229, 8058875, 9973508, 20271515, 062844254 ####[facility] [address] [place] [address] Laboratory comment Harman (Report) Comment Invalid Interpretation Code [facility] Comment on above: Result Comment: Prot ein electrophoresis scan will follow via computer, mail, or ware server delivery. Performed By: #### 2 603042, 5748010, 0384249, 3025453, 1295917, 2820635, 4976339, 41350318, 450308077 ####[facility] [address] [place] [address] Protein [Mass/Vol] 5.6 g/dL Low 6.0-8.5 [facility] Comment on above: Performed By: #### 2 255157, 1484258, 6174079, 8518853, 3242345, 0707751, 3683779, 48817022, 435577823 ####[address] [place] [address] Protein Fractions [Interp] Comment: Invalid Interpretation Code [facility] Comment on above: Result Comment: SPE shows decreased total protein. Performed at: [address] [id number] PhD Nicole Fang Performed By: #### 2 421679, 3765083, 5913408, 9381731, 7995071, 3284081, 6480799, 71380024, 126190957 ####[facility] [address] [place] [address] Protein.monoclonal Elph [Mass/Vol] Not Observed Invalid Interpretation Code Not Observed [facility] Comment on above: Performed By: #### 2 418136, 5294952, 1233110, 8808690, 9070943, 4589022, 6217902, 69021116, 359342704 ####[facility] [address] [place] [address] CHEMISTRYOrdered By: SYSTEM SYSTEM on 01-16-2024 Cobalamin [...] for Treatmenton Consent for Treatment [id number] 404 [id number]#1 .00TIFF Normal [facility] Ferritinon 01-16-2024 Ferritin [Mass/Vol] 8 ng/mL Low 24-[address] [facility] Comment on above: Performed By: #### 2 261098, 2263852, 5476263, 7830142, 3862537, 9073224, 5120808, 44143550, 967321443 ####[facility] [address] [place] [address] Folateon 01-16-2024 Folate [Mass/Vol] 13.0 ng/mL Normal >=6.7 [facility] Comment on above: Performed By: #### 2 480428, 6573412, 3791745, 1141405, 5391169, 5357401, 6866305, 84076920, 810541078 ####[facility] [address] [place] [address] Ironon 01-16-2024 Iron [Mass/Vol] 36 microgram/dL Normal 35-153 [facility] Comment on above: Performed By: #### 2 520442, 0979979, 8272648, 0628203, 8288172, 0727739, 5839631, 90659461, 943352539 ####[facility] [address] [place] [address] Iron Saturationon 01-16-2024 Iron binding capacity [Mass/Vol] 473 microgram/dL High 250-400 [facility] Comment on above: Performed By: #### 2 293816, 4408780, 6170038, 4570079, 6560913, 4198781, 7194472, 83367679, 288061508 ####[facility] [address] [place] [address] Iron saturation [Mass fraction] 8 % Low 20-50 [facility] Comment on above: Performed By: #### 2 841876, 6381562, 9606415, 5617758, 1266379, 6697640, 5246471, 25723572, 819493471 ####[facility] [address] [place] [address] Transferrinon 01-16-2024 Transferrin [Mass/Vol] 338 mg/dL Normal 200-370 [facility] Comment on above: Performed By: #### 2 000734, 3296935, 4208293, 4456786, 0645577, 6855715, 8575294, 70206683, 687383949 ####[facility] [address] [place] [address] Vit B12on 01-16-2024 Cobalamin (Vitamin B12) [Mass/Vol] 213 pg/mL Normal 50-1500 [facility] Comment on above: Performed By: #### 2 543117, 7597546, 4917452, 5459677, 4152836, 3884123, 2602161, 29799114, 065786903 ####[facility] [address] [place] [address] 36on 01-10-2024 36 Message sent from patient [...] [facility] 024 Physician Referral [id number] .00TIFF Normal [facility] Office Visiton 12-29-2023 Follow-up visit [id number] Marcelle Doherty 1960 M Date Provider Department Center 12/29/2023 PARISA MUNGUIA [facility] Family History Problem Relation Age of Onset Coronary artery disease Father Atrial fibrillation Father Heart attack Brother Family Status - Relation Status Age at Father Brother Level of Service:06983 [place] OFFICE/OUTPATIENT ESTABLISHED MOD MDM 30 MIN Normal [facility] ED Pat Eduon 12-28-2023 ED Pat Edu Cardiovascular Coronary Artery Disease, Male Coronary artery disease (CAD) is a condition in which the arteries that lead to the heart (coronary arteries) become narrow or blocked. The narrowing or blockage can lead to decreased blood flow to the heart. Prolonged reduced blood flow can cause a heart attack (myocardial infarction, or AR). This condition may also be called coronary [...] these instructions at home: Medicines ? Take khfc-spf-bldjgxk and prescription medicines only as told by [...] any (more content not included)... Normal [facility] 12-28-19 Population Health Case Information Case Priority: None Programs: -- Referral Source: Hospital Liaison Referral Reason: Disease management Case Type: Chronic Care Management Risk Score: -- Case Status: Active (December 28, 2023) Date Assigned: December 19, 2023 Assigned By: Christian Hernandez Date Enrolled: December 28, 2023 Assigned Primary Personnel: Christian Hernandez Assigned Secondary Personnel: -- Case Physician: -- Problems Ongoing AAA (abdominal aortic aneurysm) Aortic aneurysm BMI 28.0-28.9,adult BPH (benign prostatic hyperplasia) CAD in [place] artery Controlled type 2 diabetes mellitus without [...] person at home CM Preferred Spoken Language Uzbek CM Preferred Written Language Uzbek Preferred Communication Mode Verbal Ability to Read/Write Able to read, Able to write Preferred Salutation Mr. Preferred Method of Contact Cell Cell Phone [phone] Best Time to Visit or Contact 7-10 am Best Day to Visit or Contact No preference Appointment Reminders Patient portal, Other secured messaging Preferred Way to Send PHI Patient portal Preferred Mailing Address [address] [place] [address], [facility] Learning Style Pref Patient Verbal [...] Shares bed Support System Spouse/Significant other Primary Operator Assistant I Cementing of Home Medication Self Current DME at Home No Currently Receiving Skilled Services No Skilled Service Needs Anticipated No Barriers to Care None Home Barriers None Employment Status Retired Financial Issues None Sources of Income Social Security Patient Account Ser (more content not included)... Normal [facility] Population Health Problems Ongoing AAA (abdominal aortic aneurysm) Aortic aneurysm BMI 28.0-28.9,adult BPH (benign prostatic hyperplasia) CAD in [place] artery Controlled type 2 diabetes mellitus without [...] - Comments: - - 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 Frequency Status Viscose Department Worker Review educational material - - Not done [...] - Comments: - - 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 Frequency Status Viscose Department Worker Review educational material - - Not done [...] - Comments: - - 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 Frequency Status Viscose Department Worker Review educational material - - Not done [...] - Comments: - - 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 Frequency Status Viscose Department Worker Review educational material - - Not done [...] - - Not done - - Selene [facility] CT Chest, Low Dose Screening [...] Love FINAL REPORT Dictated: 12/27/2023 5:55 pm Signer Zach NIELSON Signed (Electronic Signature): 12/27/2023 5:55 pm Signed by: Zach Bourne MD Transcribed by: LUDWIN Technologist: MEKHI [facility] Consent for Treatmenton 12-14 Consent for Treatment [id number]#1 .00TIFF [facility] Family Medicine Office/Clini c Noteon [...] clutter to prevent tripping and/or falling. [place] Advance Directives reviewed, patient has at home, [...] PCP visit. Will have labs completed with [facility]. Colonoscopy up to date, [...] with CDC recommendation that everyone born from 2417[birth year]0244 get tested for Hepatitis C. This is [...] Pack Yea (more content not included)... Normal [facility] Comment on above: Result Comment: Elec tronically Signed By: Ursula Love MD\.br\Date and Time Signed: 12/22/23 11:50 EST\.br\Electronically Co-Signed By: Christian Hernandez\.br\Date and Time Co-Signed: 12/18/23 15:00 EST .Interpretation:on HCV Ab IA Ql Comment Invalid Interpretation Code [facility] Comment on above: Result Comment: Not infected with HCV unless early or acute infection is suspected (which may be delayed in an immunocompromised individual), or other evidence exists to indicate HCV infection. Performed at: [facility] [id number] PhD Nicole Fang Performed By: #### 2 388924159, 5227869, 2742912, 1585654673, 684236187, 12948923, 8775446 ####[facility] [address] [place] [address] HCV Antibody RFX to Quant PC Kavin 12-20-2023 HCV IgG IA Ql Non-Reactive Invalid Interpretation Code Non Reactive [facility] Comment on above: Result Comment: Perf ormed at: [facility] [id number] PhD Nicole Fang Performed By: #### 2 957691688, 0101694, 9315045, 3818164236, 493924780, 74040570, 4822182 ####[facility] [address] [place] [address] Screenson 12-19-2023 Screens [id number]#1 .00TIFF Normal [facility] Ambulatory Visit Summaryon 0 12-18-2023 [...] 28.0-28.9,adult BPH (benign prostatic hyperplasia) CAD in [place] artery Controlled type 2 diabetes mellitus without [...] for choosing us for your care. Normal [facility] CBC w/ Auto Diffon 4 Anisocytosis Ql (Bld) PRESENT Invalid Interpretation Code [facility] Comment on above: Performed By: #### 2 392480168, 4873904, 4709399, 8898100596, 780835487, 54352563, 7116787 ####[facility] [address] [place] [address] Basophils/100 WBC (Bld) 0.6 % Normal 0.0-2.0 [facility] Comment on above: Performed By: #### 2 481887244, 0593888, 0528274, 7697827177, 086938124, 63486026, 0481574 ####[facility] [address] [place] [address] Basophils/Leukocytes Auto (Bld) [Pure # fraction] 0.0 E9/L Normal 0.0-0.2 [facility] Comment on above: Performed By: #### 2 854740285, 0511636, 7760204, 5054192726, 394507917, 42853527, 6043811 ####[facility] [address] [place] [address] Eosinophils (Bld) [#/Vol] 0.1 E9/L Normal 0.0-0.5 [facility] Comment on above: Performed By: #### 2 854577231, 0805079, 9021344, 4913230462, 078188901, 38453053, 6270472 ####[address] [place] [address] Eosinophils/100 WBC (Bld) 2.7 % Normal 0.0-8.0 [facility] Comment on above: Performed By: #### 2 850033472, 2785497, 4506318, 7024587370, 479173385, 25753762, 7523741 ####[address] Erythrocyte distribution width (RBC) [Ratio] 17.2 % High 10.9-14.2 [facility] Comment on above: Performed By: #### 2 430164776, 5066348, 2875221, 0604361810, 244186108, 39609276, 3980004 ####[address] Hematocrit (Bld) [Volume fraction] 34.4 % Low 37.7-49.0 [facility] Comment on above: Performed By: #### 2 600934936, 9875254, 3087962, 7373783042, 415758703, 74373388, 5332501 ####[address] [address] Hemoglobin (Bld) [Mass/Vol] 10.9 g/dL Low 13.5-17.5 [facility] Comment on above: Performed By: #### 2 053206239, 4556257, 2852121, 9388261622, 716930983, 61968852, 8157068 ####[facility] [address] [place] [address] Hypochromia Auto Ql (Bld) PRESENT Invalid Interpretation Code [facility] Comment on above: Performed By: #### 2 124644258, 9431671, 4112274, 7052180591, 187289310, 89019689, 1140744 ####[address] [address] Lymphocytes (Bld) [#/Vol] 1.3 E9/L Normal 1.0-4.0 [facility] Comment on above: Performed By: #### 2 642892271, 8639766, 8445425, 8026247993, 751317238, 70730149, 4604721 ####[address] [address] Lymphocytes/100 WBC (Bld) 25.8 % Normal 14.0-50.0 [facility] Comment on above: Performed By: #### 2 147224563, 6868734, 5879386, 8765215843, 822386409, 95325905, 1835051 ####[address] [address] MCH (RBC) [Entitic mass] 23.3 pg Low 27.0-34.0 [facility] Comment on above: Performed By: #### 2 637032280, 4333737, 3261544, 6838061855, 964972877, 15116923, 0459496 ####[address] [address] MCHC (RBC) [Mass/Vol] 31.6 g/dL Normal 31.4-36.0 [facility] Comment on above: Performed By: #### 2 491349022, 4280086, 6453320, 7422947518, 410392225, 35255809, 3742429 ####[address] [address] MCV (RBC) [Entitic vol] 73.6 fL Low 80.0-100.0 [facility] Comment on above: Performed By: #### 2 531502151, 0197642, 6318045, 4420291822, 643067947, 00594980, 0087472 ####[facility] [address] [place] [address] Microcytes Ql (Bld) PRESENT Invalid Interpretation Code [facility] Comment on above: Performed By: #### 2 536929330, 8531408, 3022973, 9170519860, 533711186, 14169790, 4285082 ####[address] [address] Monocytes (Bld) [#/Vol] 0.4 E9/L Normal 0.2-1.0 [facility] Comment on above: Performed By: #### 2 381408474, 0096694, 8268655, 3794361915, 555571436, 40431886, 6917502 ####[address] [address] Neutrophils (Bld) [#/Vol] 3.2 E9/L Normal 2.0-7.5 [facility] Comment on above: Performed By: #### 2 301594107, 1858065, 9534075, 8737197024, 284078383, 14365973, 7134472 ####[address] [address] Neutrophils/100 WBC (Bld) 63.4 % Normal 36.0-75.0 [facility] Comment on above: Performed By: #### 2 737803389, 3071280, 5886741, 0145799084, 082260839, 39040730, 7076152 ####[facility] [address] [place] [address] Ovalocytes LM Ql (Bld) PRESENT Invalid Interpretation Code [facility] Comment on above: Performed By: #### 2 561706374, 2956936, 7033010, 4027178468, 899378137, 21549169, 2822387 ####[address] [place] [address] Platelet mean volume (Bld) [Entitic vol] 10.4 fL Normal 6.4-10.8 [facility] Comment on above: Performed By: #### 2 941832256, 6617184, 2199254, 6229962591, 579248911, 71799029, 8585535 ####[facility] [address] [place] [address] Platelets (Bld) [#/Vol] 137.0 E9/L Low 150.0-500.0 [facility] Comment on above: Performed By: #### 2 737035025, 9430571, 8831811, 8280727560, 580682613, 91073629, 7694590 ####[facility] [address] [place] [address] Poikilocytosis Auto Ql (Bld) PRESENT Invalid Interpretation Code [facility] Comment on above: Performed By: #### 2 271264684, 1081994, 4769734, 9136401591, 791944825, 68514860, 7756146 ####[facility] [address] [place] [address] RBC (Bld) [#/Vol] 4.7 E12/L Normal 4.3-5.9 [facility] Comment on above: Performed By: #### 2 754831429, 9397230, 7712147, 6798561967, 476767277, 50054352, 7899049 ####[facility] [address] [place] [address] WBC corrected for nucl RBC Auto (Bld) [#/Vol] 5.0 E9/L Normal 4.0-11.0 [facility] Comment on above: Performed By: #### 2 831674361, 6160118, 9167810, 8094504273, 734682066, 50515585, 7324198 ####[facility] [address] [place] [address] CHEMISTRYOrdered By: SYSTEM SYSTEM on 12-18-2023 Albumin [...] (Bld) [Mass fraction] 6.9 % High <=5.9% [facility] ChemAutoSS CMPon 12-18-2023 Albumin [Mass/Vol] 4.4 g/dL Normal 3.3-5.0 [facility] Comment on above: Performed By: #### 2 [id number], 8738206, 5114449, 2406598091, 372994446, 47618974, 0980704 ####[facility] [address] [place] [address] Albumin/Globulin (S) [Mass conc ratio] 2.6 High 1.1-2.2 [facility] Comment on above: Performed By: #### 2 [id number], 1792353, 2159526, 9493048121, 062309455, 18745939, 9000139 ####[facility] [address] [place] [address] ALP [Catalytic activity/Vol] 49 Int._Unit/L Normal 21-98 [facility] Comment on above: Performed By: #### 2 [id number], 1263490, 5197783, 4754269538, 092932401, 08919240, 2671337 ####[facility] [address] [place] [address] ALT No additional P-5'-P [Catalytic activity/Vol] 20 Int._Unit/L Normal 6-46 [facility] Comment on above: Performed By: #### 2 [id number], 1219148, 4894381, 8529009986, 408027058, 04022531, 0737545 ####[facility] [address] [place] [address] Anion gap [Moles/Vol] 13 mmol/L Normal 6-16 [facility] Comment on above: Performed By: #### 2 152363916, 5763444, 2384770, 0170553579, 909202122, 48882700, 1077272 ####[facility] [address] [place] [address] AST [Catalytic activity/Vol] 17 Int._Unit/L Normal 5-43 [facility] Comment on above: Performed By: #### 2 [id number], 9727078, 5334379, 8843250646, 815417398, 74134536, 5872000 ####[facility] [address] [place] [address] Bilirubin [Mass/Vol] 1.7 mg/dL High 0.0-1.1 [facility] Comment on above: Performed By: #### 2 956357647, 3902920, 5927558, 3282560951, 141290886, 17952074, 5982101 ####[facility] [address] [place] [address] Calcium [Mass/Vol] 9.3 mg/dL Normal 8.9-11.1 [facility] Comment on above: Performed By: #### 2 135238143, 6341792, 6401651, 8542359482, 108157278, 30717744, 3699045 ####[facility] [address] [place] [address] Chloride [Moles/Vol] 103 mmol/L Normal 101-111 [facility] Comment on above: Performed By: #### 2 792494021, 1887130, 6841956, 9383642414, 868745235, 90038192, 6163303 ####[facility] [address] [place] [address] CO2 [Moles/Vol] 26 mmol/L Normal 21-31 [facility] Comment on above: Performed By: #### 2 118963315, 5467042, 1018051, 1167678167, 404236428, 28581388, 0037952 ####[facility] [address] [place] [address] Creatinine [Mass/Vol] 0.8 mg/dL Normal 0.5-1.3 [facility] Comment on above: Performed By: #### 2 326659903, 1880791, 6857831, 1956937869, 747619683, 64486848, 5022284 ####[facility] [address] [place] [address] Globulin (S) [Mass/Vol] 1.7 g/dL Normal 1.4-4.0 [facility] Comment on above: Performed By: #### 2 506341731, 5776562, 5531265, 8069019024, 348320013, 20156260, 5075909 ####[address] [address] Glucose [Mass/Vol] 124 mg/dL Normal 55-199 [facility] Comment on above: Performed By: #### 2 644973884, 0544986, 0759997, 4891605580, 278541076, 43956933, 2486112 ####[address] [address] Potassium [Moles/Vol] 4.0 mmol/L Normal 3.5-5.3 [facility] Comment on above: Performed By: #### 2 406991588, 5055371, 6998343, 1112257360, 392708707, 11364913, 8067133 ####[address] [place] [address] Protein [Mass/Vol] 6.1 g/dL Normal 6.0-7.8 [facility] Comment on above: Performed By: #### 2 059525109, 8800870, 4968841, 8269209982, 780146910, 74147141, 8569291 ####[facility] [address] [place] [address] Sodium [Moles/Vol] 138 mmol/L Normal 135-145 [facility] Comment on above: Performed By: #### 2 469243489, 9374926, 4617884, 1026962670, 130319927, 50923391, 7853571 ####[facility] [address] [place] [address] Urea nitrogen [Mass/Vol] 8 mg/dL Normal 5-21 [facility] Comment on above: Performed By: #### 2 499421448, 7751604, 8460126, 3816279295, 116604086, 03013275, 0698208 ####[facility] [address] [place] [address] Urea nitrogen/Creatinine [Mass ratio] 10 No Units Normal 10-20 [facility] Comment on above: Performed By: #### 2 131394532, 8712255, 8891482, 6675872839, 945387562, 84477122, 5155335 ####[facility] [address] [place] [address] HEMATOLOGYOrdered By: SYSTEM SYSTEM on 12-18-2023 Anisocytosis [...] Normal 4.0 - 11.0 E9/L Remisol Heme [id number] 12-18-2023 HbA1c (Bld) [Mass fraction] 6.9 % High <=5.9 [facility] Comment on above: Performed By: #### 2 [id number], 0871925, 9855427, 6663624042, 332943570, 95317274, 2111296 ####[facility] [address] [place] [address] Lipid Panelon 12-18-2023 Cholesterol [Mass/Vol] 118 mg/dL Low 120-200 [facility] Comment on above: Performed By: #### 2 795033946, 9372485, 5938183, 9391523189, 632158021, 15252869, 1106299 ####[facility] [address] [place] [address] Cholesterol in HDL [Mass/Vol] 37 mg/dL Invalid Interpretation Code [facility] Comment on above: Result Comment: '>= 60 LOW RISK' '<= 40 HIGH RISK' Performed By: #### 2 260644948, 0519325, 9404319, 7706040568, 654410871, 99445221, 2882351 ####[facility] [address] [place] [address] Cholesterol in LDL [Mass/Vol] 72 mg/dL Normal <=129 [facility] Comment on above: Performed By: #### 2 337059769, 9458606, 2533562, 0665343584, 015386991, 04434607, 2987546 ####[facility] [address] [place] [address] Cholesterol in VLDL [Mass/Vol] 22 mg/dL Normal 7-40 [facility] Comment on above: Performed By: #### 2 392477250, 8007497, 1511676, 5275610089, 000711544, 79527634, 4159931 ####[facility] [address] [place] [address] Triglyceride [Mass/Vol] 112 mg/dL Normal <=149 [facility] Comment on above: Performed By: #### 2 884839579, 5290203, 1155476, 3628443852, 733275367, 09502212, 3163798 ####[facility] [address] [place] [address] Patient Educationon 12-18-19 Patient Education Cardiovascular Atrial [...] signals of the heart. ? An ambulatory plastic welder to record your heart's activity for a [...] Trouble breathing. (more content not included)... Normal [facility] eGFRon 12-18-2023 eGFR 98 mL/min/1.73 m2 Normal >=59 [facility] Comment on above: Order Comment: Order added by Discern Expert. Performed By: #### 2 390789954, 2265553, 3107802, 6902261505, 889288034, 65858834, 4392926 ####[facility] [address] [place] [address] 36on 11-20-2023 36 Patient emailed me and asked if we had samples of Xarelto. Since he's on Medicare now it's very expensive for him. We haven't had a rep bring samples of Xarelto in about 1 year. I mentioned switching to Eliquis, since we do get samples of that. Ok to send RX for Eliquis 5mg bid? Please advise. Thanks! [facility] URINALYSISOrdered By: Isaiah Garcia on [...] PM) Normal Negative [facility] UA Auto SS [place].plasma/[place] .RBC (Bld) [Mass ratio] 0-3 /HPF Normal [...] [facility] UA Auto SS Urobilinogen Qn (U) 0.9147290 {Denny'U}/dL Normal 0.0 - 1.0 EU/dL [facility] [...] Interpretation Code [facility] Remisol U Prot/Creat Ratio [facility] Invalid Interpretation Code 0.00 - 200.00 [facility] Remisol CHEMISTRYOrdered By: Bobby roman on 07-03-2023 HbA1c (Bld) [Mass fraction] 6.8 % High <=5.9% [facility] ChemAutoSS CBC AUTO DIFFon 01-04-2023 BASO # 0.1 103/ul Normal 0.0-0.1 [facility] Comment on above: Performed By: #### C BC #### [facility] [address] [address] [address] Lucia San Basophils/100 WBC (Bld) 1.0 % Normal 0.2-2.0 [facility] Comment on above: Performed By: #### C BC #### [facility] [address] [address] [address] Lucia San EO # 0.1 103/ul Normal 0.0-0.7 [facility] Comment on above: Performed By: #### C BC #### [facility] [address] [place] [address] Dr. Lucia San Eosinophils/100 WBC (Bld) 2.5 % Normal 0.9-7.0 [facility] Comment on above: Performed By: #### C BC #### [facility] [address] [place] [address] Dr. Lucia San Erythrocyte distribution width (RBC) [Ratio] 17.3 % Critically high 11.0-15.0 [facility] Comment on above: Performed By: #### C BC #### [facility] [address] [place] [address] Dr. Lucia San Hematocrit (Bld) [Volume fraction] 35.2 % Critically low 42.0-54.0 [facility] Comment on above: Performed By: #### C BC #### [facility] [address] [place] [address] Dr. Lucia San Hemoglobin (Bld) [Mass/Vol] 11.3 g/dL Critically low 14.0-18.0 [facility] Comment on above: Performed By: #### C BC #### [facility] [address] [place] [address] Dr. Lucia San IG # 0.02 10e3/ul Normal 0.00-0.03 [facility] Comment on above: Performed By: #### C BC #### [facility] [address] [place] [address] Dr. Lucia aSn IG % 0.4 % Normal 0.0-0.5 [facility] Comment on above: Performed By: #### C BC #### [facility] [address] [place] [address] Dr. Lucia San LYMPH # 1.6 103/ul Normal 1.2-3.8 [facility] Comment on above: Performed By: #### C BC #### [facility] [address] [place] [address] Dr. Lucia San Lymphocytes/100 WBC (Bld) 30.9 % Normal 20.5-60.0 [facility] Comment on above: Performed By: #### C BC #### [facility] [address] [place] [address] Dr. Lucia San MANUAL DIFF REQ NO Normal [facility] Comment on above: Performed By: #### C BC #### [facility] [address] [place] [address] Dr. Lucia San MCH (RBC) [Entitic mass] 23.9 pg Critically low 25.9-34.0 [facility] Comment on above: Performed By: #### C BC #### [facility] [address] [place] [address] Dr. Lucia San MCHC (RBC) [Mass/Vol] 32.1 g/dL Normal 29.9-35.2 [facility] Comment on above: Performed By: #### C BC #### [facility] [address] [place] [address] Dr. Lucia San MCV (RBC) [Entitic vol] 74.6 fL Critically low 80.0-94.0 [facility] Comment on above: Performed By: #### C BC #### [facility] [address] [place] [address] Dr. Lucia San MONO # 0.5 103/ul Normal 0.3-0.8 [facility] Comment on above: Performed By: #### C BC #### [facility] [address] [place] [address] Dr. Lucia San Monocytes/100 WBC (Bld) 9.1 % Normal 1.7-12.0 [facility] Comment on above: Performed By: #### C BC #### [facility] [address] [place] [address] Dr. Lucia San NEUT # 2.9 103/ul Normal 1.4-6.5 [facility] Comment on above: Performed By: #### C BC #### [facility] [address] [place] [address] Dr. Lucia San Neutrophils/100 WBC (Bld) 56.1 % Normal 43.0-75.0 [facility] Comment on above: Performed By: #### C BC #### [facility] [address] [place] [address] Dr. Lucia San Platelet mean volume (Bld) [Entitic vol] 11.6 fL Normal 9.5-13.5 [facility] Comment on above: Performed By: #### C BC #### [facility] [address] [place] [address] Dr. Lucia San PLT 172 103/ul Normal 150-450 [facility] Comment on above: Performed By: #### C BC #### [facility] [address] [place] [address] Dr. Lucia San RBC 4.72 106/ul Normal 4.70-6.10 [facility] Comment on above: Performed By: #### C BC #### [facility] [address] [place] [address] Dr. Lucia San WBC 5.2 103/ul Normal 4.0-11.0 [facility] Comment on above: Performed By: #### C BC #### [facility] [address] [place] [address] Dr. Lucia San ECHOCARDIO M/2D COMPLETEon 0 01-04-2023 ECHOCARDIO M/2D COMPLETE Patient: MARCELLE DOHERTY Exam Date: 01/04/2023 : 1960 Gender:M Ordering : DR BLANKA ERAZO M.D. Admission #: [id number] Family : Order #: [id number] CLICK HERE TO VIEW EXAM ECHOCARDIOGRAM REPORT [...] Area (VTI): 3.28 cm2, 3.28 cm2 Deceleration Craig: 0.48 m/s2 Pressure Half-Time: 1.33 s Peak [...] [place] M.D. on 01/04/2023 at 15:[address] [facility] GLYCOHEMOGLOBIN A1Con 2022 ADA RECOMMENDATION SEE BELOW Normal [facility] Comment on above: Result Comment: ADA RECOMMENDED LIMIT 4.0 - 6.0 ADA THERAPEUTIC TARGET < 7.0 ACTION SUGGESTED > 7.0 Performed By: #### A 1C #### [facility] [address] [place] [address] Dr. Lucia San HbA1c (Bld) [Mass fraction] 6.9 % Critically high 4.5-6.2 [facility] Comment on above: Performed By: #### A 1C #### [facility] [address] [address] [address] Lucia San LIPID PROFILEon 01-04-2023 CHOL-HDL RATIO NORM SEE BELOW Normal [facility] Comment on above: Result Comment: 3.3 - 4.4 LOW RISK 4.4 - 7.1 AVERAGE RISK 7.1 - 11.0 MODERATE RISK >11.0 HIGH RISK Performed By: #### L IPID #### [facility] [address] [address] [address] Lucia San Cholesterol [Mass/Vol] 140 mg/dL Normal <=200 [facility] Comment on above: Performed By: #### L IPID #### [facility] [address] [address] [address] Lucia San Cholesterol in HDL [Mass/Vol] 37 mg/dL Critically low 40-60 [facility] Comment on above: Performed By: #### L IPID #### [facility] [address] [address] [address] Lucia San Cholesterol in LDL [Mass/Vol] 80.2 mg/dL Normal [facility] Comment on above: Performed By: #### L IPID #### [facility] [address] [address] [address] Lucia San Cholesterol.total/Chol esterol in HDL [Mass ratio] 3.8 {ratio} Normal [facility] Comment on above: Performed By: #### L IPID #### [facility] [address] [address] [address] Lucia San HDL NORMAL > or = 60 mg/dl - LO W CARDIOVASCULAR RISK <40 mg/dl - HIGH CARDIOVASCULAR RISK Normal [facility] Comment on above: Performed By: #### L IPID #### [facility] [address] [address] [address] Lucia San LDL CALC NORMAL SEE BELOW Normal [facility] Comment on above: Result Comment: <100 mg/dl OPTIMAL 100 - 129 mg/dl NEAR OR ABOVE OPTIMAL 130 - 159 mg/dl BORDERLINE HIGH 160 - 189 mg/dl HIGH >190 mg/dl VERY HIGH Performed By: #### L IPID #### [facility] [address] [address] [address] Lucia San Triglyceride [Mass/Vol] 114 mg/dL Normal <=150 [facility] Comment on above: Performed By: #### L IPID #### [facility] [address] [address] [address] Lucia San VLDL CALC 22.8 mg/dL Normal [facility] Comment on above: Performed By: #### L IPID #### [facility] [address] [address] [address] Lucia San MICROALBUMIN, RAND URon 12-15 mALB 1.5 mg/L Normal <=30.0 [facility] Comment on above: Performed By: #### M ALBR #### [facility] [address] [place] [address] Dr. Lucia San NM STRESS/REST MULTIon 01-04 NM STRESS/REST MULTI Patient: MARCELLE DOHERTY Exam Date: 01/04/2023 : 1960 Gender:M Ordering : DR BLANKA ERAZO M.D. Admission #: [id number] Family : Order #: [id number] CLICK HERE TO VIEW EXAM RADIOLOGY REPORT [...] LOCATION: Basal inferior. Mid-anterior. Mid-inferior. Apical inferior. [place]. SIZE: Large (5 or more segments). SEVERITY: [...] Guzman MD on 01/04/2023 at 11:[address] [facility] PROF 14(COMP METB)on 023 Albumin [Mass/Vol] 4.1 g/dL Normal 3.4-5.0 [facility] Comment on above: Performed By: #### C MP #### [facility] [address] [place] [address] Dr. Lucia San Albumin/Globulin [Mass ratio] 1.7 {ratio} Normal [facility] Comment on above: Performed By: #### C MP #### [facility] [address] [place] [address] Dr. Lucia San ALP [Catalytic activity/Vol] 51 U/L Normal 46-116 [facility] Comment on above: Performed By: #### C MP #### [facility] [address] [place] [address] Dr. Lucia San ALT [Catalytic activity/Vol] 49 U/L Normal 16-63 [facility] Comment on above: Performed By: #### C MP #### [facility] [address] [place] [address] Dr. Lucia San Anion gap [Moles/Vol] 16.6 mmol/L Normal [facility] Comment on above: Performed By: #### C MP #### [facility] [address] [place] [address] Dr. Lucia San AST [Catalytic activity/Vol] 28 U/L Normal 15-37 [facility] Comment on above: Performed By: #### C MP #### [facility] [address] [address] [address] Lucia San Bilirubin [Mass/Vol] 1.7 mg/dL Critically high 0.2-1.0 [facility] Comment on above: Performed By: #### C MP #### [facility] [address] [address] [address] Lucia San Calcium [Mass/Vol] 9.2 mg/dL Normal 8.5-10.1 [facility] Comment on above: Performed By: #### C MP #### [facility] [address] [address] [address] Lucia San Chloride [Moles/Vol] 100 mmol/L Normal 98-107 [facility] Comment on above: Performed By: #### C MP #### [facility] [address] [place] [address] Dr. Lucia San CO2 [Moles/Vol] 25.9 mmol/L Normal 21.0-32.0 [facility] Comment on above: Performed By: #### C MP #### [facility] [address] [place] [address] Dr. Lucia San Creatinine [Mass/Vol] 1.03 mg/dL Normal 0.70-1.30 [facility] Comment on above: Performed By: #### C MP #### [facility] [address] [place] [address] Dr. Lucia San EGFR-AF BHUTANESE >60 Normal >=60 [facility] Comment on above: Performed By: #### C MP #### [facility] [address] [place] [address] Dr. Lucia San EGFR-NON AF BHUTANESE >60 Normal >=60 [facility] Comment on above: Performed By: #### C MP #### [facility] [address] [place] [address] Dr. Lucia San Globulin (S) [Mass/Vol] 2.4 g/dL Normal [facility] Comment on above: Performed By: #### C MP #### [facility] [address] [place] [address] Dr. Lucia San Glucose [Mass/Vol] 151 mg/dL Normal [facility] Comment on above: Performed By: #### C MP #### [facility] [address] [place] [address] Dr. Lucia San Performed By: #### A 1C #### [facility] [address] [place] [address] Dr. Lucia San Potassium [Moles/Vol] 4.5 mmol/L Normal 3.5-5.1 [facility] Comment on above: Performed By: #### C MP #### [facility] [address] [place] [address] Dr. Lucia San Protein [Mass/Vol] 6.5 g/dL Normal 6.4-8.2 [facility] Comment on above: Performed By: #### C MP #### [facility] [address] [place] [address] Dr. Lucia San Sodium [Moles/Vol] 138 mmol/L Normal 136-145 [facility] Comment on above: Performed By: #### C MP #### [facility] [address] [place] [address] Dr. Lucia San Urea nitrogen [Mass/Vol] 13.0 mg/dL Normal 7.0-18.0 [facility] Comment on above: Performed By: #### C MP #### [facility] [address] [place] [address] Dr. Lucia San Urea nitrogen/Creatinine [Mass ratio] 12.6 mg/mg Normal [facility] Comment on above: Performed By: #### C MP #### [facility] [address] [place] [address] Dr. Lucia Rondon 02-03-2022 DANIS Office Visit (CARDMN ) MARCELLE DOHERTY ([id number]) 1960 M Date Time Provider Department 02/03/22 8:30 AM JANNET GONZALEZ During your visit today, we recorded the following information about you: Pulse Blood pressure Weight Height 60/minute 180/76 85.3 kg 1.765 m Jannet Gonzalez MD 02/03/2022 9:58 AM Signed [facility] [place] Emiliano Plascencia Department of Cardiovascular Medicine SECTION OF CARDIAC PACING and ELECTROPHYSIOLOGY OUTPATIENT VISIT DATE February 03, 2022 OUTPATIENT VISIT TYPE CONSULTATION PRIMARY CARE PHYSICIAN: Mark Browning DO [address] [id number] CHIEF COMPLAINT: PAF HISTORY OF PRESENT ILLNESS [...] he is in SR. He denies syncope. 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 70% ostial D1. Preserved [...] (more content not included)... Normal [facility] CNCOon 12-04-2021 CNCO Letter Text Normal [facility] Dermatopathologyon 0 Dermatopathology [facility] Dermatopathology Laboratory [address] [place] [id number] DERMATOPATHOLOGY REPORT Name:MARCELLE DOHERTY [facility]. Rec #. [id number] Location: [facility] Date of Procedure: 10/02/2020 Race: Unknown Date Received: 10/06/2020 /Sex: 1960 (Age: 60) / M Date Reported: 10/08/2020 Other: Submitting Physician:SONIA GREEN APRN, MEDICAL ASSISTANT-C FINAL DIAGNOSIS A. SKIN, (R) NECK, BIOPSY: [...] is a mayers piece of skin measuring [id number] in aggreg (small). The specimen is inked and embedded in toto. B: Received in formalin is a mayers piece of skin measuring [id number]. The specimen is inked and embedded in toto. 10/06/2020 Microscopic Description: A,B: Microscopic examination performed. Normal [facility] Comment on above: Performed By: #### D #### Dermatopathology Vital Signs Date Time Vital Sign Value Performing Clinician Facility 09-09-2024 11:18-0500 Body temperature 98.06 [degF] [facility] [employer] [facility] 09-09-2024 11:18-0500 Diastolic blood pressure 87 mm[Hg] [place] [facility] 09-09-2024 11:18-0500 Heart rate 72 /min [facility] [employer] [facility] 09-09-2024 11:18-0500 Mean blood pressure 119 mm[Hg] [facility] 09-09-2024 11:18-0500 Respiratory rate 18 /min [facility] [employer] [facility] 09-09-2024 11:18-0500 SaO2% (BldA) [Mass fraction] 98 % [facility] [employer] [facility] 09-09-2024 11:18-0500 Systolic blood pressure 183 mm[Hg] [facility] 03-14-2024 10:16-0400 Body temperature 97.52 [degF] [facility] 03-14-2024 10:16-0400 Diastolic blood pressure 85 mm[Hg] [facility] 03-14-2024 10:16-0400 Heart rate 59 /min [facility] [facility] 03-14-2024 10:16-0400 Mean blood pressure 116 mm[Hg] Ana [facility] 03-14-2024 10:16-0400 Respiratory rate 16 /min Ana [facility] 03-14-2024 10:16-0400 SaO2% (BldA) [Mass fraction] 99 % Ana Lingke [facility] 03-14-2024 10:16-0400 Systolic blood pressure 179 mm[Hg] Ana Lingke [facility] 02-15-2024 13:10-0400 Blood Pressure Location Ana Spencer [facility] 02-15-2024 13:10-0400 Body temperature 98.06 [degF] Ana Spencer [facility] 02-15-2024 13:10-0400 Diastolic blood pressure 61 mm[Hg] Ana Hubbardboske [facility] 02-15-2024 13:10-0400 Heart rate 62 /min Ana Lingke [facility] 02-15-2024 13:10-0400 Mean blood pressure 77 mm[Hg] Ana Hubbardboske [facility] 02-15-2024 13:10-0400 Respiratory rate 16 /min Ana Hubbardboske [facility] 02-15-2024 13:10-0400 SaO2% (BldA) [Mass fraction] 99 % Ana Lingke [facility] 02-15-2024 13:10-0400 Systolic blood pressure 108 mm[Hg] Ana Hubbardboske [facility] 02-08-2024 13:00-0400 Blood Pressure Location Ana Lingke [facility] 02-08-2024 13:00-0400 Body temperature 98.24 [degF] Ana Lingke [facility] 02-08-2024 13:00-0400 Diastolic blood pressure 82 mm[Hg] Ana Lingke [facility] 02-08-2024 13:00-0400 Heart rate 80 /min Ana Lingke [facility] 02-08-2024 13:00-0400 SaO2% (BldA) [Mass fraction] 100 % Ana Hubbardboske [facility] 02-08-2024 13:00-0400 Systolic blood pressure 142 mm[Hg] Ana Lingke [facility] 01-25-2024 08:58-0400 Diastolic blood pressure 82 mm[Hg] Ana Lingke [facility] 01-25-2024 08:58-0400 Heart rate 65 /min Ana Lingke [facility] 01-25-2024 08:58-0400 Mean blood pressure 118 mm[Hg] Ana Hubbardboske [facility] 01-25-2024 08:58-0400 SaO2% (BldA) [Mass fraction] 99 % Ana Hubbardboske [facility] 01-25-2024 08:58-0400 Systolic blood pressure 190 mm[Hg] Ana Hubbardboske [facility] 08-16-2023 08:21-0400 Blood Pressure Location Shelley Lue [facility] 08-16-2023 08:21-0400 Diastolic blood pressure 83 mm[Hg] Shelley Lue [facility] 08-16-2023 08:21-0400 Heart rate 69 /min Shelley Lue [facility] 08-16-2023 08:21-0400 Respiratory rate 16 /min Shelley Lue [facility] 08-16-2023 08:21-0400 Systolic blood pressure 166 mm[Hg] Shelley Lue [facility] Encounters Encounter Date Encounter Type Care Provider Facility Start: 11-14-2024 ambulatory [facility] Start: 11-14-2024 End: 11-14-2024 ambulatory [facility] Start: 10-24-2024 End: 10-24-2024 ambulatory Ana Hubbardboy Facility:[facility] Start: 10-24-2024 End: 10-24-2024 Patient encounter procedure Ana Hubbardsoladick [facility] Start: 10-01-2024 End: 10-01-2024 ambulatory [facility] Start: 09-26-2024 End: 10-07-2024 ambulatory MD Ursula Love Facility:[facility] Start: 09-26-2024 End: 09-26-2024 Patient encounter procedure Ana Hubbardsoladick [facility] Start: 09-10-2024 End: 09-10-2024 ambulatory [facility] Start: 09-09-2024 End: 09-09-2024 ambulatory Ana Spencer Facility:[facility] Start: 09-09-2024 End: 09-09-2024 Patient encounter procedure Ana Spencer [facility] Start: 09-04-2024 End: 09-04-2024 ambulatory Ana Spencer Facility:[facility] Start: 09-04-2024 End: 09-04-2024 Patient encounter procedure Ana Spencer [facility] Start: 08-29-2024 End: 08-29-2024 ambulatory Ana Spencer Facility:[facility] Start: 08-29-2024 End: 08-29-2024 Patient encounter procedure Ana Spencer [facility] Start: 08-01-2024 End: 08-01-2024 ambulatory Ana Spencer Facility:[facility] Start: 08-01-2024 End: 08-01-2024 Patient encounter procedure Ana Spencer [facility] Start: 08-01-2024 End: 08-01-2024 ambulatory Ursula Love Facility:[facility] Start: 07-31-2024 End: 08-08-2024 ambulatory Ursula Love Facility:[facility] [place] Start: 07-29-2024 End: 07-29-2024 ambulatory Leonora Camacho MD Facility: [facility] Start: 07-12-2024 End: 07-12-2024 ambulatory [facility] Start: 07-04-2024 End: 07-04-2024 ambulatory Ana Spencer Facility:[facility] Start: 07-04-2024 End: 07-04-2024 Patient encounter procedure Ana Spencer [facility] Start: 06-27-2024 End: 07-10-2024 Orders Only Jannet Gonzalez MD Work Phone: Cardiology Comment on above: Atrial fibrillation, unspecified type (HCC) (Primary Dx) Start: 2024 End: 2024 ambulatory Ursula Love Facility:[facility] [place] Start: 06-06-2024 End: 06-06-2024 ambulatory Ana Spencer Facility:[facility] Start: 06-06-2024 End: 06-06-2024 Patient encounter procedure Ana Spencer [facility] Start: 05-09-2024 End: 05-09-2024 ambulatory Ana Spencer Facility:[facility] Start: 05-09-2024 End: 05-09-2024 Patient encounter procedure Ana Spencer [facility] Start: 04-24-2024 End: 05-08-2024 ambulatory Ursula Love Facility:[facility] [place] Start: 04-11-2024 End: 04-11-2024 ambulatory Ana Spencer Facility:[facility] Start: 04-11-2024 End: 04-11-2024 Patient encounter procedure Ana Spencer [facility] Start: 03-26-2024 End: 03-26-2024 ambulatory Ursula Love Facility: [facility] [place] Start: 03-22-2024 End: 04-09-2024 ambulatory Ursula Love Facility:[facility] Start: 03-14-2024 End: 03-14-2024 ambulatory Ana Spencer Facility:[facility] Start: 03-14-2024 End: 03-14-2024 Patient encounter procedure Ana Spencer [facility] Start: 03-12-2024 End: 03-12-2024 ambulatory Ana Spencer Facility:[facility] Start: 03-12-2024 End: 03-12-2024 Patient encounter procedure Ana Spencer [facility] Start: 02-15-2024 End: 02-15-2024 ambulatory Ana Spencer Facility:[facility] Start: 02-15-2024 End: 02-15-2024 Patient encounter procedure Ana Spencer [facility] Start: 02-08-2024 End: 02-08-2024 ambulatory Ana Spencer Facility:[facility] Start: 02-08-2024 End: 02-08-2024 Patient encounter procedure Ana Spencer [facility] Start: 02-01-2024 End: 02-01-2024 ambulatory Ana Spencer Facility:[facility] Start: 02-01-2024 End: 02-01-2024 Patient encounter procedure Ana Spencer [facility] Start: 01-25-2024 End: 02-07-2024 ambulatory Ursula Love Facility:[facility] Start: 01-25-2024 End: 01-25-2024 Patient encounter procedure Ana Spencer [facility] Start: 01-16-2024 End: 01-16-2024 ambulatory Bharath Melton Facility:[facility] Start: 01-16-2024 End: 01-16-2024 Patient encounter procedure Bharath Melton [facility] Start: 12-29-2023 End: 12-29-2023 ambulatory PARISA [facility] Start: 12-28-2023 End: 12-28-2023 ambulatory Ursula Love Facility:[facility] Start: 12-27-2023 End: 12-27-2023 ambulatory Ursula IveyNelly Km Facility:[facility] Start: 12-27-2023 End: 12-27-2023 Patient encounter procedure Ursula IveyNelly Km [facility] Start: 12-19-2023 ambulatory Ursula IveyNelly Km Facility ::[id number] Start: 12-18-2023 End: 12-18-2023 Lab Drop off Ursula Love [facility] Start: 12-18-2023 End: 12-18-2023 ambulatory Ursula IveyNelly Km Facility:[facility] Start: 12-18-2023 End: 12-18-2023 ambulatory Ursula Love Facility:[facility] Start: 10-04-2023 End: 10-04-2023 Patient encounter procedure Jose Luis THOMAS [facility] [place] Start: 08-16-2023 End: 08-16-2023 Patient encounter procedure [facility] Start: 08-07-2023 End: 08-07-2023 Patient encounter procedure Ursula Love [facility] Start: 08-04-2023 End: 08-04-2023 Lab Drop off Karen Romano [facility] Start: 07-04-2023 End: 07-04-2023 Lab Drop off Ursula Love [facility] Start: 07-03-2023 End: 07-03-2023 Lab Drop off Ursula Love [facility] Start: 01-04-2023 End: 01-05-2023 ambulatory URSULA LOVE [...] Cardiac ablation sys tem (physical object) Shelley Nortonraudel Cardiac catheterization Hernandez THOMAS Repair of musculoten dinous cuff of shoulder Jose Luis NILL Rupture of tendon of biceps (disorder) Jose Luis VALLEJOL Structure of right s houlder region (body structure) Ursula Love Tonsillectomy Jose Luis THOMAS Plan of Treatment Date Care Activity Detail Author Start: 01-30-2025 ambulatory Ambulatory Facility:[facility] Start: 12-19-2024 End: 12-19-2024 Patient encounter procedure 12/19/2024 9:15 AM EST Office Visit Cardiology [address] [id number] Jannet Gonzalez MD [address] [place] [address] Paroxysmal atrial fibrillation (HCC) [I48.0] Cardiology Comment on above: Paroxysmal atrial fi brillation (HCC) [I48.0] Start: 12-19-2024 End: 12-19-2024 ambulatory 12/19/2024 8:30 AM EST Results Only Cardiology [address] [place] [address] Paroxysmal atrial fibrillation (HCC) [I48.0] Cardiology Comment on above: Paroxysmal atrial fi brillation (HCC) [I48.0] Start: 12-17-2024 ambulatory Ambulatory Facility:[facility] Start: 06-16-2024 Covid-19 Vaccine ( season) Covid-19 Vaccine () [facility] Start: 06-16-2024 Influenza vaccination Influenza Vacc ine (#1) [facility] Start: 10-16-2023 Advance Directive Discussion Advance Directive Discussion [facility] Start: 2023 Pneumococcal Vaccine : 65+ (1 of 1 - PCV) Pneumococcal Vaccine: 65+ (1 of 1 - PCV) [facility] Start: 07-04-2020 DIABETES SCREEN DIABETES SCREEN [facility] Start: 07-04-2020 Diabetes Screening Diabetes Screenin g [facility] Start: 2018 RSV Vaccine (1 - 1-d ose 60+ series) RSV Vaccine (1 - 1-dose 60+ series) [facility] Start: 2013 PROSTATE CANCER SCREENING DISCUSSION PROSTATE CANCER SCREENING DISCUSSION [facility] Start: 2013 Prostate specific antigen measurement Prostate Cancer Screening Discussion [facility] Start: 2008 SHINGRIX VACCINE (1 of 2) SHINGRIX VACCINE (1 of 2) [facility] Start: 2003 COLOGUARD (FIT-DNA) COLOGUARD (FIT-D NA) [facility] Start: 2003 Colonoscopy COLONOSCOPY [facility] Start: 2003 COLORECTAL CANCER SCREENING COLORECTAL CANCER SCREENING [facility] Start: [address] COLONOGRAPHY [facility] Start: 2003 FECAL OCCULT BLOOD FECAL OCCULT BLOO D [facility] Start: 2003 Screening for malign ant neoplasm of colon [facility] Start: 2003 SIGMOIDOSCOPY SIGMOIDOSCOPY [facility] Start: 1993 Lipid panel Lipid Screening [facility] Start: 1993 LIPID SCREEN LIPID SCREEN [facility] Start: 1977 Urine microalbumin profile [facility] Start: 1976 ANNUAL PCP TEAM PONY EDGER SARAH DISEASE VISIT ANNUAL PCP TEAM CHRONIC DISEASE VISIT [facility] Start: 1976 Anxiety Screening Anxiety Screening [facility] Start: 1976 BP CONTROLLED (<130/80) BP CONTROLLE D (<130/80) [facility] Start: 1976 Depression Screening Depression Scre ening [facility] Start: 1976 Hepatitis B surface antibody level LDL CHOLESTEROL [facility] Start: 1976 HEPATITIS C SCREENING HEPATITIS C [facility] Start: 1976 Hepatitis C screening Hepatitis C Sc [facility] Start: 1976 HIV SCREENING HIV SCREENING [facility] Start: 1970 Adult depression screening assessment DEPRESSION SCREENING [facility] Start: 1958 Abdominal aortic aneurysm screening Abdominal Aortic Aneurysm Screening [facility] End: 02-03-2023 ECG COMPLETE ECG COMPLETE ECG Routine Persistent atrial fibrillation (HCC) 1 Occurrences starting 02/03/2022 until 02/03/2023 [facility] Work Phone: Comment on above: 1 Occurrences starti ng 02/03/2022 until 02/03/2023 End: 06-27-2025 ECG COMPLETE ECG COMPLETE ECG Routine Atrial fibrillation, unspecified type (HCC) 1 Occurrences starting 06/27/2024 until 06/27/2025 [facility] Work Phone: Comment on above: 1 Occurrences starti ng 06/27/2024 until 06/27/2025 [facility] Immun[facility] Immunization Date Immunization Notes Care Provider Fa cilipenelope 08-31-2021 SARS-CoV-2 (COVID-19 ) Ad26 vaccine, recombinant Ursula Love [facility] Comment on above: Result Comment: 2021: [id number] 07-23-2021 influenza virus vaccine, unspecified formulation Ursula Love [facility] 12-23-2020 SARS-CoV-2 (COVID-19 ) Ad26 vaccine, recombinant Ursula Love [facility] 07-30-2018 influenza virus vaccine, unspecified formulation Ursula Love [facility] NEGATED: Highlighted row has not occurred!07-03-2023 influenza virus vaccine, unspecified formulation Ursula Love [facility] Payers Date Payer Category Payer Private Health Insurance [facility] AARP SUPPLEMENT [id number] 2023-Present [phone] [address] [place] [address] Indemnity [id number] 2023 Unknown 2023 Medicare [id number] 2023 Medicare [id number] 2023 Unknown [id number] 2021 Unknown ANTHEM BLUE ACCE SS PPO [id number] 2021-Present [phone] [address] [place] [address] PPO [id number] 1959 Unknown [id number] 1958 Unknown [id number] 2.16.840.1.433767.3.579.2. 593 1958 Unknown [id number] 2.16.840.1.435016.3.579.2. 593 1958 Unknown [id number] 2.16.840.1.845993.3.579.2. 196 1958 Unknown [id number] 2.16.840.1.614102.3.579.2. 72 1958 Unknown [id number] 2.16.840.1.010433.3.579.2. 727 1958 Unknown [id number] 2.16.840.1.925127.3.579.2. 72 1958 Unknown [id number] 2.16.840.1.791581.3.579.2. 72 1958 Unknown [id number] 2.16.840.1.777271.3.579.2. 1958 Unknown [id number] 2.16.840.1.023638.3.579.2. 72 1958 Unknown [id number] 2.16.840.1.734658.3.579.2. 72 1958 Unknown [id number] 2.16.840.1.321511.3.579.2. 72 1958 Unknown [id number] 2.16.840.1.210295.3.579.2. 72 1958 Unknown [id number] 2.16.840.1.361692.3.579.2. 72 1958 Unknown [id number] 2.16.840.1.177664.3.579.2. 72 1958 Unknown [id number] 2.16.840.1.597691.3.579.2. 72 1958 Unknown [id number] 2.16.840.1.444606.3.579.2. 72 1958 Unknown [id number] 2.16.840.1.723323.3.579.2. 72 1958 Unknown [id number] 2.16.840.1.524234.3.579.2. 727 1958 Unknown [id number] 2.16.840.1.481742.3.579.2. 72 1958 Unknown [id number] 2.16.840.1.722984.3.579.2. 1958 Unknown [id number] 2.16.840.1.013276.3.579.2. 72 1958 Unknown [id number] 2.16.840.1.793820.3.579.2. 1958 Unknown [id number] 2.16840.1.330097.3.579.2. 1958 Unknown [id number] 2.16840.1.752022.3.579.2. 1958 Unknown [id number] 2.840.1.370670.3.579.2. 1958 Unknown [id number] 2.840.1.479402.3.579.2. 1958 Unknown [id number] 2.16840.1.103689.3.579.2. 1958 Unknown [id number] 2.840.1.549271.3.579.2. 1958 Unknown [id number] 2.840.1.740738.3.579.2. 1958 Unknown [id number] 2.16840.1.903327.3.579.2. 72 1958 Unknown [id number] 2.16.840.1.947114.3.579.2. 1958 Unknown [id number] 2.16.840.1.214094.3.579.2. 1958 Unknown [id number] 2.16840.1.887153.3.579.2. 1958 Unknown [id number] 2.16840.1.011783.3.579.2. 727 1958 Unknown [id number] 2.16.840.1.660586.3.579.2. 727 1958 Unknown [id number] 2.16.840.1.506142.3.579.2. 727 Social History Date Type Detail Facility Start: 08-25-2014 End: 09-09-2024 Tobacco smoking status NHIS Ex-smoker [facility] Comment on above: Quit in 2013 after M I quit age 53 (39 pack years) Start: [birth year]-25-1957 End: 08-09-2014 History of tobacco use Current smoker [facility] Start: 10-25-1955 End: 08-09-2014 History of tobacco use Cigarette Smoker [facility] Start: 08-25-2014 End: 09-23-2020 Cigarettes smoked current (pack per day) - Reported 0.5 [facility] Start: 08-25-2014 Tobacco use and exposure Smokeless tobacco non-user [facility] Start: 02-03-2022 Alcohol intake Current drinke r of alcohol (finding) [facility] Start: 1960 Sex Assigned At Not on file C [facility] Start: 01-24-2022 End: 02-03-2022 Exposure to SARS-CoV-2 (event) Not sure [facility] Tobacco smoking status No Smokin g Status Entered [facility] Start: 09-23-2020 End: 02-03-2022 Sex Assigned At Male [facility] Start: 04-01-2022 Tobacco smoking status Never s moked tobacco (finding) [facility] Tobacco smoking status Never [facility] Comment on above: Quit in 2013 after M I quit age 53 (39 pack years) Medical Equipment Procedure Code Equipment Code Equipment Origin al Text Equipment Identifier Dates Lancets, See Instructions, EA, Lancets, to check BS once daily E11.9, Supply Start: 2024 Lancets, See Instructions, 100 lancet(s), 0, Lancets, to check BS once daily E11.9, [id number], Supply, 179, cm, 03/26/24 10:53:00 EDT, Height/Length Dosing, 86, kg, 03/26/24 10:53:00 EDT, Weight Dosing Start: 2024 One Touch Ultra 2 Test Strips, See Instructions, Supply Start: 2024 One Touch Ultra 2 Test Strips, See Instructions, 100 strip(s), 0, One Touch Ultra 2 Glucometer Test Strips, to check BS once daily E11.9, Fe[id number], Supply, 179, cm, 03/26/24 10:53:00 EDT, Height/Length Dosing, 86, kg, 03/26/24 10:53:00 EDT, Weight Dosing Start: 2024 One Touch Ultra 2 Test Strips, See Instructions, 100 strip(s), 0, One Touch Ultra 2 Glucometer Test Strips, to check BS once daily E11.9, [id number], Supply, 179, cm, 03/26/24 10:53:00 EDT, Height/Length Dosing, 86, kg, 03/26/24 10:53:00 EDT, Weight Dosing Start: 2024 One Touch Ultra 2 Test Strips, See Instructions, 100 strip(s), 0, One Touch Ultra 2 Glucometer Test Strips, to check BS once daily E11.9, [id number], Supply, 179, cm, 03/26/24 10:53:00 EDT, Height/Length Dosing, 86, kg, 03/26/24 10:53:00 EDT, Weight Dosing Start: 2024 One Touch Ultra 2 Test Strips, See Instructions, 100 strip(s), 0, One Touch Ultra 2 Glucometer Test Strips, to check BS once daily E11.9, [id number], Supply, 179, cm, 03/26/24 10:53:00 EDT, Height/Length Dosing, 86, kg, 03/26/24 10:53:00 EDT, Weight Dosing Start: 2024 One Touch Ultra 2 Test Strips, See Instructions, 100 strip(s), 0, One Touch Ultra 2 Glucometer Test Strips, to check BS once daily E11.9, Fe[id number], Supply, 179, cm, 03/26/24 10:53:00 EDT, Height/Length Dosing, 86, kg, 03/26/24 10:53:00 EDT, Weight Dosing Start: 2024 One Touch Ultra 2 Test Strips, See Instructions, 100 strip(s), 0, One Touch Ultra 2 Glucometer Test Strips, to check BS once daily E11.9, [id number], Supply, 179, cm, 03/26/24 10:53:00 EDT, Height/Length Dosing, 86, kg, 03/26/24 10:53:00 EDT, Weight Dosing Start: 2024 lancets, See Instructions, lancet(s), use lancet to monitor BS daily- E11.9, Supply Start: 10-17-2024 lancets, See Instructions, 100 lancet(s), 1, use lancet to monitor BS once daily- E11.9, Fe[id number], Supply, 179, cm, 09/09/24 11:22:00 EST, Height/Length Dosing, 79.8, kg, 09/09/24 11:22:00 EST, Weight Dosing Start: 10-17-2024 One Touch Ultra 2 Test Strips, See Instructions, 100 strip(s), 0, One Touch Ultra 2 Glucometer Test Strips, to check BS once daily E11.9, Fe[id number], Supply, 179, cm, 09/09/24 11:22:00 EST, Height/Length Dosing, 79.8, kg, 09/09/24 11:22:00 EST, Weight Dosing Start: 10-17-2024 Goals Date Patient Goal Desired Activity /State 12-28-2023 Functional Status Date Assessment Result Facility 08-16-2023 Functional Status N/A [facility] 04-01-2022 Functional Status Telehealth Patient [facility] Clinical Notes 02-03-2022 to 11-14-2024 RadiologyRadiologyRadiologyRadiologyRadiologyRadiologyLaboratoryRadiologyLaborat oryRadiologyLaboratoryRadiologyLaboratoryRadiologyRadiologyLaboratoryRadiologyMulti[facility] HospitalRadiologyLaboratoryRadiology Note Date & Type Note Facility 11-14-2024 Note ATRIAL FIBRILLATION ABLATION PROCEDURE NOTE DATE OF PROCEDURE: 11/14/2024 PERFORMING PHYSICIAN: Dr. Ulises Eldridge HEEL SANDER RUBBER:JOCELYN CONSENT: Patient NAME OF THE PROCEDURE: Pulmonary Vein Isolation and Comprehensive EP study. INDICATIONS FOR PROCEDURE: 1. Persistent atrial fibrillation. 2. History of prior PVI ablation. FLUROSCOPY: 3.2minute/ 21mGy. EBL: 25cc SPECIMEN REMOVED: None PROCEDURES PERFORMED: 1. Sonosite guided venous access as noted below and images stored in PACS. 2. Comprehensive EP study and catheter ablation for persistent atrial fibrillation through the pulmonary vein isolation technique. This includes right atrial recording and pacing, His bundle recording and right ventricular recording and pacing. 3. Intracardiac EP 3D mapping. 4. Intracardiac echocardiogram 5. Left atrial and coronary sinus recording and pacing to assess ablation results. 6. Left heart pressure measurements and LV pacing and recording. 7. Induction of arrhythmia and testing of ablation results using intravenous adenosine infusion. 8. Fluroscopy. INDICATION: 64year old with past medical history of CAD with AEROBICS TEACHER of the RCA and a 70% ostial D1 lesion, diabetes mellitus type 2, hypertension AAA has been previously seen by Dr. PHAN. There is a history of prior A-fib ablation (RF-PVI) done at [facility] on 07/10/2017 by and was noted to have atrial flutter subsequently which was converted by cardioversion to sinus rhythm on 07/28/2017. Since then he has been following up with Jannet Gonzalez at [facility]. He is currently maintained on metoprolol and propafenone and he takes them on an as-needed basis along with Cardizem for rate control. There is a note of have A-fib for recurrence in 2020 which converted on his own. Given the recurrence of atrial fibrillation he was started on amiodarone which he could not tolerate and hence this was stopped. His frequency of A-fib recurrences since then increased with episodes lasting up to 30 minutes and is quite symptomatic with this. His [id number] score is 3 with risk factors of hypertension CAD and diabetes and is on Xarelto for this. I had previously seen him on 11/26/2021 and had recc ablation but due to financial reasons, chose to use Amio at that time. He has presented for repeat ablation to come off antiarrythmic. PROCEDURE NOTE: On the day of presentation, he was noted to be in SR and so LINNETTE was deferred. Risks, benefits and alternatives of the procedure were discussed with the patient and family who agreed to proceed. Please refer to my consult note for details of the discussion and of indications. The patient was prepped and draped following which four venous access was procured on right side as noted below. Ultrasound was used to determine the course and patency of the femoral veins on both sides and they were noted to be patent and the image stored in PACS. After infiltration with 1% lidocaine, 4 venous sheaths were placed in the right. RFV: 8Fx3, [employer] ThermoCool SF Bi-Directional over SL1/ Vizigo, SL1: Octoray,, CS Catheter (EZ Steer). 9F: ICE catheter. Following venous access, heparin bolus was given followed by continuous intravenous drip to target ACT around 350. An intracardiac ultrasound catheter was inserted into the right atrium to examine the right atrial anatomy, atrial septum, pulmonary vein anatomy and to monitor for pericardial effusion and guide transseptal access. The LA and RA was normal size. At baseline, there was no pericardial effusion and no FAIZA clot but noted a very prominent Coumadin ridge. The septum was thick and there was limited area for crossing into the LA. Transeptal access was procured with ICE guidance using a SL-1 sheath and Mariola needle. Following this, Octoray, catheter was advanced and the multipolar mapping performed of the LA creating a geometry as well as bipolar voltage assessment was made. The LA was noted to be healthy with LIPV, LSPV and RSPV was noted to have signals and RIPV was likely isolated. There was singificant scarring in the posterior LA. After FAM geometry was performed, a 2nd transseptal was performed with an SL1 sheath using a Mariola needle. Following transseptal, the SL1 sheath was removed and Vizigo sheath was advanced over which the ablation catheter ST-SF thermocol ablation catheter was advanced. Ablation was then performed. A cooling catheter was advanced to the middle of the LA to cool to 4C. Ablation was performed using 40 hendrickson for 10-12s in the anterior LA and 5-8seconds in the posterior wall and roof area. After completion of the left sided WACA, no signals were noted in the LSPV or LIPV and entrance block was noted. After this, I proceeded to perform ablation of the right-sided vein. Following right WACA, the veins were isolated. I ensured that on the anterior aspect of right WACA and in fran area, phrenic capture was ruled out before any ablation was perf (more content not included)... [facility] 10-01-[place] [facility] Reason for visit: Afib 10/01/24 Patient here for H&P prior to afib ablation scheduled on 10/03/2024. Denies chest pain, SOB, and bleeding on Eliquis. Prior HPI: Marcelle Doherty is a 64 y.o. 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 PHAN. There is a history of prior A-fib ablation done at [facility] on 07/10/2017 by and was noted to have atrial flutter subsequently which was converted by cardioversion to sinus rhythm on 07/28/2017. Since then he has been following up with Jannet Gonzalez at [facility]. He is currently maintained on metoprolol and [...] and is quite symptomatic with this. His [id number] score is 3 with risk factors of [...] on file Intimate Partner Violence: Unknown (12/07/2023) [place] Safety [place] Fear of Current or [...] for back pain (more content not included)... [facility] 09-10-2024 Note [facility] 09-10-2024 [place] - [facility] Reason for visit: Afib Prior HPI: Marcelle Doherty is a 64 y.o. 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 PHAN. There is a history of prior A-fib ablation done at [facility] on 07/10/2017 by and was noted to have atrial flutter subsequently which was converted by cardioversion to sinus rhythm on 07/28/2017. Since then he has been following up with Jannet Gonzalez at [facility]. He is currently maintained on metoprolol and [...] and is quite symptomatic with this. His [id number] score is 3 with risk factors of [...] artery disease) Hypertension PAF (paroxysmal atrial fibrillation) ([facility]) PSH: Past Surgical History: Procedure Laterality Date [...] on file Intimate Partner Violence: Unknown (12/07/2023) [place] Fear of Current or [...] no dry eyes, (more content not included)... [facility] 09-09-2024 Note Oncology Progress No te Chief [...] a colonoscopy done in Sep 2023 at [facility] after positive Cologuard test. This showed [...] Contact Information Tj NATHAN-PEMA, Ana Rivas, ONC [facility] [address] [place] [address] [phone] Additional Instructions: continue b12 injections monthly cbc, cmp, iron (more content not included)... [facility] 07-12-2024 Note [place] - [facility] Subjective Marcelle Doherty is a 64 [...] of an abnormal stress test that showed AEROBICS TEACHER of the RCA with filling via left to right collaterals. He also had a 70% stenosis in a diagonal branch (the prior report mentions that it is not amenable to intervention). At that time left-ventricular gram showed normal left ventricular ejection fraction at 60%. 2. Paroxysmal atrial fibrillation, status post ablation in 2017 at the [facility]. He also had prior cardioversion. [...] episodes of atrial fibrillation. He has a Chaordixa machine that he uses to transmit ECG. [...] and time. Psychiat (more content not included)... [facility] 03-20-2024 Hospital Discharge instructions Follow Up Care 03/20/2024 09:48:36 With:Tj BURTON, Ana Rivas, ONC Address: [place] [id number]- [phone] When: Unknown Comments:continue b12 injections monthlycbc, cmp, iron studies in 6mofollow-up in 6mo [facility] 01-25-2024 Hospital Discharge instructions Follow Up Care 01/25/2024 12:17:38 With:Tj BURTON, Ana Rivas, ONC Address: [address] [address] [phone] When: Unknown Comments:cbc, cmp, iron studies in 3mo and 6mofollow-up in 6mo with MEDICAL ASSISTANT [facility] 12-29-2023 Note LDL > 70 therefore c [...] 11:16:26 With:Tj BURTON, Ana Rivas, ONC Address: [facility] [place] [address]- [phone] When: Unknown Comments:IV Injectafer x2B12 injections weekly x4, then monthlycbc, cmp, iron studies in 8wksfollow-up in 8wks with MEDICAL ASSISTANT [facility] 12-29-2023 Note [facility] CARDIOLOGY PROGR ESS NOTE [...] of an abnormal stress test that showed AEROBICS TEACHER of the RCA with filling via left to right collaterals. He also had a 70% stenosis in a diagonal branch (the prior report mentions that it is not amenable to intervention). At that time left-ventricular gram showed normal left ventricular ejection fraction at 60%. 2. Paroxysmal atrial fibrillation, status post ablation in 2017 at the [facility]. He also had prior cardioversion. [...] episodes of atrial fibrillation. He has a Chaordixa machine that he uses to transmit ECG. [...] content not included)... [facility] 12-29-2023 Note Patient here for 6 [...] and are negative. [facility] 12-29-2023 Note HTN management with goal b/p < 130/80 Monitor b/p at home Routine monitoring- will repeat Echocardiogram in 6 months with f/u with Dr Erazo. D/W pt that he is to call 911 for sharp, tearing chest pain or back pain, call office for b/p consistently > 130/80 and he voiced understanding [facility] 08-16-2023 Hospital Discharge instructions Patient Education 08/16/2023 [...] include: ?8 oz (237 mL) of milk, nefbvrc-nuroejmauqwn-nebyk milk, and calcium-fortifiedfruit juice. Calcium-fortified means that [...] ?Spinach (cooked), rhubarb, beets, sweet potatoes, and Lithuanian chard. ?Peanuts. ?Potato chips, singaporean fries, and baked potatoes with skin on. ?Nuts and nut products. ?Chocolate. If you regularly take a diuretic medicine, make sure to eat at least 1 or 2 servings of fruits or vegetables that are high in potassium each day. These include: ?Avocado. ?Banana. ?Davey, prune, carrot, or tomato juice. ?Baked potato. [...] magnesium, fish oil, or vitamin B6. Take zeaa-unc-ulzbpfk and prescription medicines only as told by [...] Casseroles. Pizza. Lasagna. Frozen meals. Potato chips. Indonesian fries. The items listed above may not [...] provider. Document Revised: 06/13/2022 Document Reviewed: 06/13/2022 [employer] Patient Education 2022 [employer] [facility] 08/08/2023 13:37:21 With:Teo NIELSON, Shelley Sidhu, URL, URO Address: When: Unknown Comments:LANDRY [facility] 01-04-2023 Note CARDIAC STRESS TEST Requesting [...] and reported myocardial perfusion scan findings. [facility] 04-01-2022 Hospital Discharge instructions Patient Education 04/01/2022 [...] quitting, ask your health care provider. Take vedr-ufa-nljlhfu and prescription medicines only as told by [...] 10/07/2014 Document Revised: 05/27/2019 Document Reviewed: 05/03/2019 [employer] Patient Education 2020 [employer] 04/01/2022 13:38:40 Hyperglycemia Hyperglycemia Hyperglycemia occurs when [...] or polycystic ovarian syndrome (PCOS). Being of Malawian-Andorran, -Malawian, /, or / descent. What are the [...] these instructions at home: General instructions Take qbuf-wea-cspzsqe and prescription medicines only as told by [...] 03/28/2002 Document Revised: 06/19/2017 Document Reviewed: 06/19/2017 [employer] Patient Education 2020 [employer] 04/01/2022 13:38:33 Atrial Fibrillation Atrial Fibrillation [...] may be diagnosed with: Electrocardiogram (ECG). Ambulatory plastic welder. This device records your heartbeats for 24 [...] 10/02/2006 Document Revised: 11/22/2018 Document Reviewed: 11/23/2018 [employer] Patient Education 2020 [employer] 04/01/2022 13:38:29 Pinched Nerve Pinched Nerve [...] work. Follow these instructions at home: Take tvcr-qet-mwlokrz and prescription medicines only as told by [...] leg, or the back or neck. Take ixki-nbr-vrwpqwm and prescription medicines only as told by [...] 09/22/2003 Document Revised: 10/19/2018 Document Reviewed: 10/16/2018 [employer] Patient Education [address] [employer] [facility] [place] 02-03-2022 Note HNO ID: [id number] Author: Jannet Gonzalez MD Service: ? Author Type: Physician Type: Progress Notes Filed: 02/03/2022 9:58 AM Note Text: [facility] [place] Emiliano Plascencia Department of Cardiovascular Medicine SECTION OF CARDIAC PACING and ELECTROPHYSIOLOGY OUTPATIENT VISIT DATE February 03, 2022 OUTPATIENT VISIT TYPE CONSULTATION PRIMARY CARE PHYSICIAN: Mark Browning DO [address] [place] [address] CHIEF COMPLAINT: PAF HISTORY OF PRESENT ILLNESS [...] he is in SR. He denies syncope. [id number] 3 (HTN, CAD, DM) tolerating Xarelto PAST MEDICAL HISTORY Diagnosis Date - Atrial fibrillation (HCC) 2013 - CAD (coronary artery disease) 09/02/2014 - Diabetes mellitus (HCC) - Dyslipidemia - Hypertension - Metabolic syndrome PAST SURGICAL HISTORY Procedure Laterality Date - AFIB PVI W/COMPL EP STUDY 07/10/2017 - CARDIAC CATH 09/02/2014 AEROBICS TEACHER of proximal RCA. 70% ostial D1. Preserved [...] L (more content not included)... [facility] Evaluation + Plan note No data available for this section [facility] Evaluation + Plan note Future Appointments Appointment Date:01/03/2024 08:00:00 AM Scheduled Provider: Location:[facility] Appointment Type:FM Medicare Wellness Welcome Appointment Date:01/03/2024 08:40:00 AM Scheduled Provider:Ursula Love MD Location:[facility] Appointment Type: Open Diagnostic Tests PendingPSA Free & Total 07/03/23Microalbumin Level Urine 07/03/23U Protein/Creat Ratio 07/03/23 [facility] Evaluation + Plan note Future Appointments Appointment Date:01/03/2024 08:00:00 AM Scheduled Provider: Location:[facility] Appointment Type:FM Medicare Wellness Welcome Appointment Date:01/03/2024 08:40:00 AM Scheduled Provider:Ursula Love MD Location:[facility] Appointment Type: Open [facility] Evaluation + Plan note Future Appointments Appointment Date:08/29/2023 02:20:00 PM Scheduled Provider:Jose Luis THOMAS MD Location:[facility] Appointment Type: Appointment Date:01/03/2024 08:00:00 AM Scheduled Provider: Location:[facility] Appointment Type:FM Medicare Wellness Welcome Appointment Date:01/03/2024 08:40:00 AM Scheduled Provider:Ursula Love MD Location:[facility] Appointment Type:FM Open Diagnostic Tests PendingUrine Culture 08/04/23 Future Scheduled TestsCT Abdomen/Pelvis w/o Contrast 08/02/23 [facility] Evaluation + Plan note Future Appointments Appointment Date:08/29/2023 02:20:00 PM Scheduled Provider:Jose Luis THOMAS MD Location:[facility] Appointment Type:[facility] Appointment Date:01/03/2024 08:00:00 AM Scheduled Provider: Location:[facility] Appointment Type:FM Medicare Wellness Welcome Appointment Date:01/03/2024 08:40:00 AM Scheduled Provider:Ursula Love MD Location:[facility] Appointment Type:[facility] Evaluation + Plan note Future Appointments Appointment Date:08/29/2023 02:20:00 PM Scheduled Provider:Jose Luis THOMAS MD Location:[facility] Appointment Type:[facility] Appointment Date:01/03/2024 08:00:00 AM Scheduled Provider: Location:[facility] Appointment Type:FM Medicare Wellness Welcome Appointment Date:01/03/2024 08:40:00 AM Scheduled Provider:Ursula Love MD Location:[facility] Appointment Type: Open Future Scheduled TestsUS Aorta 08/08/24 [facility] Evaluation + Plan note Future Appointments Appointment Date:01/03/2024 08:00:00 AM Scheduled Provider: Location:[facility] Appointment Type:[facility] Appointment Date:01/03/2024 08:40:00 AM Scheduled Provider:Ursula Love MD Location:[facility] Appointment Type: Open Future Scheduled TestsUS Aorta 08/08/24 [facility] [place] Evaluation + Plan note Future Appointments Appointment Date:12/17/2024 08:00:00 AM Scheduled Provider: Location:[facility] Appointment Type:FM Medicare Wellness Subsequent Diagnostic Tests PendingHCV Antibody RFX to Quant PCR 12/18/23 Future Scheduled TestsCT Chest, Low Dose Screening 12/18/23US Aorta 08/08/24 [facility] Evaluation + Plan note Future Appointments Appointment Date:03/25/2024 10:45:00 AM Scheduled Provider:Ursula Love MD Location:[facility] Appointment Type: Open Appointment Date:12/17/2024 08:00:00 AM Scheduled Provider: Location:[facility] Appointment Type: Medicare Wellness Subsequent Future Scheduled TestsUS Aorta 08/08/24 [facility] Evaluation + Plan note Future Appointments Appointment Date:01/25/2024 09:00:00 AM Scheduled Provider:Ana Kumar [facility] Type:ONC Office Visit New 45 (FT) Appointment Date:03/25/2024 10:45:00 AM Scheduled Provider:Ursula Love MD Location:[facility] Appointment Type: Open Appointment Date:12/17/2024 08:00:00 AM Scheduled Provider: Location:[facility] Appointment Type:FM Medicare Wellness Subsequent Diagnostic Tests PendingImmunofixation Serum 01/16/24Free K+L Lt Chains,Qn,S 01/16/24Protein Electrophoresis 01/16/24 Future Scheduled TestsUS Aorta 08/08/24 [facility] Evaluation + Plan note Future Appointments Appointment Date:02/01/2024 02:30:00 PM Scheduled Provider: Location:.ONCOLOGY Appointment Type:ONC Injection (FT) Appointment Date:02/08/2024 02:30:00 PM Scheduled Provider: [facility] Type:ONC Injection (FT) Appointment Date:02/15/2024 02:00:00 PM Scheduled Provider: Location:.ONCOLOGY Appointment Type:ONC Injection (FT) Appointment Date:03/14/2024 10:15:00 AM Scheduled Provider:Ana Kumar Location:.ONCOLOGY Appointment Type:ONC Office Visit 30 (FT) Appointment Date:03/14/2024 10:45:00 AM Scheduled Provider: Location:.ONCOLOGY Appointment Type:ONC Injection (FT) Appointment Date:03/25/2024 10:45:00 AM Scheduled Provider:Ursula Love MD Location:[facility] Appointment Type: Open Appointment Date:12/17/2024 08:00:00 AM Scheduled Provider: Location:[facility] Appointment Type: Medicare Wellness Subsequent Future Scheduled TestsCBC w/ Auto Diff 03/21/24Comprehensive Metabolic Panel 03/21/24Ferritin 03/21/24Iron Level 03/21/24Iron Percent Saturation 03/21/24Transferrin 03/21/24US Aorta 08/08/24 [facility] Evaluation + Plan note Future Appointments Appointment [...] Date:03/25/2024 10:45:00 AM Scheduled Provider:Ursula Love MD Location:[facility] Appointment Type:FM Open Appointment Date:04/11/2024 [...] (FT) Appointment Date:12/17/2024 08:00:00 AM Scheduled Provider: Location:[facility] Appointment Type:FM Medicare Wellness Subsequent [...] 03/21/24Iron Percent Saturation 03/21/24Transferrin 03/21/24US Aorta 08/08/24 [facility] Evaluation + Plan note Future Appointments Appointment Date:02/15/2024 01:00:00 PM Scheduled Provider: Location:.ONCOLOGY Appointment Type:ONC Injectafer (FT) Appointment Date:02/15/2024 02:00:00 PM Scheduled Provider: Location:.ONCOLOGY Appointment Type:ONC Injection (FT) Appointment Date:03/14/2024 10:15:00 AM Scheduled Provider:Ana Kumar Location:.ONCOLOGY Appointment Type:ONC Office Visit 30 (FT) Appointment Date:03/14/2024 10:45:00 AM Scheduled Provider: Location:.ONCOLOGY Appointment Type:ONC Injection (FT) Appointment Date:03/25/2024 10:45:00 AM Scheduled Provider:[facility] Open Appointment Date:04/11/2024 [...] (FT) Appointment Date:12/17/2024 08:00:00 AM Scheduled Provider: Location:[facility] Appointment Type:FM Medicare Wellness Subsequent [...] 03/21/24Iron Percent Saturation 03/21/24Transferrin 03/21/24US Aorta 08/08/24 [facility] Evaluation + Plan note Future Appointments Appointment Date:03/14/2024 10:15:00 AM Scheduled Provider:Ana Kumar Location:.ONCOLOGY Appointment Type:ONC Office Visit 30 (FT) Appointment Date:03/14/2024 10:45:00 AM Scheduled Provider: Location:.ONCOLOGY Appointment Type:ONC Injection (FT) Appointment Date:03/25/2024 10:45:00 AM Scheduled Provider:Ursula Love MD Location:[facility] Appointment Type:FM Open Appointment Date:04/11/2024 [...] (FT) Appointment Date:12/17/2024 08:00:00 AM Scheduled Provider: Location:[facility] Appointment Type: Medicare Wellness Subsequent [...] 03/11/24Iron Percent Saturation 03/11/24Transferrin 03/11/24US Aorta 08/08/24 [facility] Evaluation + Plan note Future Appointments Appointment Date:03/14/2024 10:15:00 AM Scheduled Provider:Ana Kumar Location:.ONCOLOGY Appointment Type:ONC Office Visit 30 (FT) Appointment Date:03/14/2024 10:45:00 AM Scheduled Provider: Location:.ONCOLOGY Appointment Type:ONC Injection (FT) Appointment Date:03/26/2024 10:45:00 AM Scheduled Provider:Ursula Love MD Location:[facility] Appointment Type:FM Open Appointment Date:04/11/2024 [...] (FT) Appointment Date:12/17/2024 08:00:00 AM Scheduled Provider: Location:[facility] Appointment Type: Medicare Wellness Subsequent Appointment Date:12/19/2024 02:15:00 PM Scheduled Provider: Location:.ONCOLOGY Appointment Type:ONC Injection (FT) Appointment Date:01/16/2025 02:05:00 PM Scheduled Provider: Location:[facility] Appointment Type:ONC Injection (FT) Appointment Date:02/13/2025 02:15:00 PM Scheduled Provider: Location:[facility] Appointment Type:ONC Injection (FT) Appointment Date:03/13/2025 02:15:00 PM Scheduled Provider: Location:[facility] Appointment Type:ONC Injection (FT) Future Scheduled TestsUS Aorta 08/08/24 [facility] Evaluation + Plan note Future Appointments Appointment Date:03/26/2024 10:45:00 AM Scheduled Provider:Ursula Love MD Location:[facility] Appointment Type: Open Appointment Date:04/11/2024 [...] (FT) Appointment Date:12/17/2024 08:00:00 AM Scheduled Provider: Location:[facility] Appointment Type: Medicare Wellness Subsequent Appointment Date:12/19/2024 02:15:00 PM Scheduled Provider: [facility] Type:ONC Injection (FT) Appointment Date:01/16/2025 02:05:00 PM Scheduled Provider: [facility] Type:ONC Injection (FT) Appointment Date:02/13/2025 02:15:00 PM Scheduled Provider: [facility] Type:ONC Injection (FT) Appointment Date:03/13/2025 02:15:00 PM Scheduled Provider: [facility] Type:ONC Injection (FT) Future Scheduled TestsCBC w/ Auto Diff 06/07/24CBC w/ Auto Diff 09/07/24Comprehensive Metabolic Panel 06/07/24Comprehensive Metabolic Panel 09/07/24Ferritin 06/07/24Ferritin 09/07/24Iron Level 06/07/24Iron Level 09/07/24Iron Percent Saturation 06/07/24Iron Percent Saturation 09/07/24Transferrin 06/07/24Transferrin 09/07/24US Aorta 08/08/24 [facility] Evaluation + Plan note Future Appointments Appointment Date:05/09/2024 02:00:00 PM Scheduled Provider: [facility] Type:ONC Injection (FT) Appointment Date:06/06/2024 02:00:00 PM Scheduled Provider: Location:.ONCOLOGY Appointment Type:ONC Injection (FT) Appointment Date:07/04/2024 02:00:00 PM Scheduled Provider: Location:.ONCOLOGY Appointment Type:ONC Injection (FT) Appointment Date:08/01/2024 02:00:00 PM Scheduled Provider: [facility] Type:ONC Injection (FT) Appointment Date:08/29/2024 02:00:00 PM Scheduled Provider: [facility] Type:ONC Injection (FT) Appointment Date:09/09/2024 11:00:00 AM Scheduled Provider:Ana Kumar [facility] Type:ONC Office Visit 30 (FT) Appointment Date:09/26/2024 02:00:00 PM Scheduled Provider: Location:.ONCOLOGY Appointment Type:ONC Injection (FT) Appointment Date:10/24/2024 02:15:00 PM Scheduled Provider: Location:.ONCOLOGY Appointment Type:ONC Injection (FT) Appointment Date:11/21/2024 02:15:00 PM Scheduled Provider: Location:.ONCOLOGY Appointment Type:ONC Injection (FT) Appointment Date:12/17/2024 08:00:00 AM Scheduled Provider: Location:[facility] Appointment Type: Medicare Wellness Subsequent [...] Percent Saturation 09/07/24Transferrin 06/07/24Transferrin 09/07/24US Aorta 08/08/24 [facility] Evaluation + Plan note Future Appointments Appointment [...] (FT) Appointment Date:12/17/2024 08:00:00 AM Scheduled Provider[facility] Type:FM Medicare Wellness Subsequent Appointment Date:12/19/2024 [...] Percent Saturation 09/07/24Transferrin 06/07/24Transferrin 09/07/24US Aorta 08/08/24 [facility] Evaluation + Plan note Future Appointments Appointment [...] (FT) Appointment Date:12/17/2024 08:00:00 AM Scheduled Provider: Location:[facility] Appointment Type:FM Medicare Wellness Subsequent [...] Percent Saturation 09/07/24Transferrin 06/07/24Transferrin 09/07/24US Aorta 08/08/24 [facility] Evaluation + Plan note Future Appointments Appointment [...] (FT) Appointment Date:12/17/2024 08:00:00 AM Scheduled Provider: Location:[facility] Appointment Type:FM Medicare Wellness Subsequent [...] Percent Saturation 09/07/24Transferrin 06/07/24Transferrin 09/07/24US Aorta 08/08/24 [facility] Evaluation + Plan note Future Appointments Appointment [...] (FT) Appointment Date:12/17/2024 08:00:00 AM Scheduled Provider: Location:[facility] Appointment Type: Medicare Wellness Subsequent Appointment Date:12/19/2024 02:15:00 PM Scheduled Provider: Location:.[facility] Appointment Type:ONC Injection (FT) Appointment Date:01/16/2025 02:05:00 PM Scheduled Provider: Location:.[facility] Appointment Type:ONC Injection (FT) Appointment Date:01/30/2025 09:15:00 AM Scheduled Provider:Ursula Love MD Location:[facility] Appointment Type: Open Appointment Date:02/13/2025 02:15:00 PM Scheduled Provider: Location:.[facility] Appointment Type:ONC Injection (FT) Appointment Date:03/13/2025 02:15:00 PM Scheduled Provider: Location:.[facility] Appointment Type:ONC Injection (FT) Future Scheduled TestsCBC w/ Auto Diff 06/07/24CBC w/ Auto Diff 09/07/24Comprehensive Metabolic Panel 06/07/24Comprehensive Metabolic Panel 09/07/24Ferritin 06/07/24Ferritin 09/07/24Iron Level 06/07/24Iron Level 09/07/24Iron Percent Saturation 06/07/24Iron Percent Saturation 09/07/24Transferrin 06/07/24Transferrin 09/07/24US Aorta 08/08/24 [facility] Evaluation + Plan note Future Appointments Appointment Date:09/09/2024 11:00:00 AM Scheduled Provider:Ana Kumar Location:[facility] Appointment Type:ONC Office Visit 30 (FT) Appointment Date:09/26/2024 02:00:00 PM Scheduled Provider: Location:.[facility] Appointment Type:ONC Injection (FT) Appointment Date:10/24/2024 02:15:00 PM Scheduled Provider: Location:.[facility] Appointment Type:ONC Injection (FT) Appointment Date:11/21/2024 02:15:00 PM Scheduled Provider: Location:.[facility] Appointment Type:ONC Injection (FT) Appointment Date:12/17/2024 08:00:00 AM Scheduled Provider: Location:[facility] Appointment Type:FM Medicare Wellness Subsequent Appointment Date:12/19/2024 02:15:00 PM Scheduled Provider: Location:.[facility] Appointment Type:ONC Injection (FT) Appointment Date:01/16/2025 02:05:00 PM Scheduled Provider: Location:.[facility] Appointment Type:ONC Injection (FT) Appointment Date:01/30/2025 09:15:00 AM Scheduled Provider:Ursula Love MD Location:[facility] Appointment Type:FM Open Appointment Date:02/13/2025 02:15:00 PM Scheduled Provider: Location:.[facility] Appointment Type:ONC Injection (FT) Appointment Date:03/13/2025 02:15:00 PM Scheduled Provider: Location:.[facility] Appointment Type:ONC Injection (FT) Future Scheduled TestsCBC w/ Auto Diff 06/07/24CBC w/ Auto Diff 09/07/24Comprehensive Metabolic Panel 06/07/24Comprehensive Metabolic Panel 09/07/24Ferritin 06/07/24Ferritin 09/07/24Iron Level 06/07/24Iron Level 09/07/24Iron Percent Saturation 06/07/24Iron Percent Saturation 09/07/24Transferrin 06/07/24Transferrin 09/07/24US Aorta 08/08/24 [facility] Evaluation + Plan note Future Appointments Appointment Date:09/09/2024 11:00:00 AM Scheduled Provider:Ana Kumar Location:[facility] Appointment Type:ONC Office Visit 30 (FT) Appointment Date:09/26/2024 02:00:00 PM Scheduled Provider: Location:.[facility] Appointment Type:ONC Injection (FT) Appointment Date:10/24/2024 02:15:00 PM Scheduled Provider: Location:.[facility] Appointment Type:ONC Injection (FT) Appointment Date:11/21/2024 02:15:00 PM Scheduled Provider: Location:.[facility] Appointment Type:ONC Injection (FT) Appointment Date:12/17/2024 08:00:00 AM Scheduled Provider: Location:[facility] Appointment Type: Medicare Wellness Subsequent Appointment Date:12/19/2024 02:15:00 PM Scheduled Provider: Location:.[facility] Appointment Type:ONC Injection (FT) Appointment Date:01/16/2025 02:05:00 PM Scheduled Provider: Location:.[facility] Appointment Type:ONC Injection (FT) Appointment Date:01/30/2025 09:15:00 AM Scheduled Provider:Ursula Love MD Location:[facility] Appointment Type: Open Appointment Date:02/13/2025 02:15:00 PM Scheduled Provider: Location:.[facility] Appointment Type:ONC Injection (FT) Appointment Date:03/13/2025 02:15:00 PM Scheduled Provider: Location:.[facility] Appointment Type:ONC Injection (FT) Future Scheduled TestsCBC w/ Auto Diff 06/07/24Comprehensive Metabolic Panel 06/07/24Ferritin 06/07/24Iron Level 06/07/24Iron Percent Saturation 06/07/24Transferrin 06/07/24US Aorta 08/08/24 [facility] Evaluation + Plan note Future Appointments Appointment Date:09/26/2024 02:00:00 PM Scheduled Provider: Location:.[facility] Appointment Type:ONC Injection (FT) Appointment Date:10/24/2024 02:15:00 PM Scheduled Provider: Location:.[facility] Appointment Type:ONC Injection (FT) Appointment Date:11/21/2024 02:15:00 PM Scheduled Provider: Location:.[facility] Appointment Type:ONC Injection (FT) Appointment Date:12/17/2024 08:00:00 AM Scheduled Provider: Location:[facility] Appointment Type: Medicare Wellness Subsequent Appointment Date:12/19/2024 02:15:00 PM Scheduled Provider: Location:.[facility] Appointment Type:ONC Injection (FT) Appointment Date:01/16/2025 02:05:00 PM Scheduled Provider: Location:.[facility] Appointment Type:ONC Injection (FT) Appointment Date:01/30/2025 09:15:00 AM Scheduled Provider:Ursula Love MD Location:[facility] Appointment Type: Open Appointment Date:02/13/2025 02:00:00 PM Scheduled Provider:[facility] Type:ONC Office Visit 20 (FT) Appointment Date:02/13/2025 02:15:00 PM Scheduled Provider: Location:.[facility] Appointment Type:ONC Injection (FT) Appointment Date:03/13/2025 02:15:00 PM Scheduled Provider: Location:.[facility] Appointment Type:ONC Injection (FT) Future Scheduled TestsCBC w/ Auto Diff 06/07/24CBC w/ Auto Diff 03/09/25Comprehensive Metabolic Panel 06/07/24Comprehensive Metabolic Panel 03/09/25Ferritin 06/07/24Ferritin 03/09/25Iron Level 06/07/24Iron Level 03/09/25Iron Percent Saturation 06/07/24Iron Percent Saturation 03/09/25Transferrin 06/07/24Transferrin 03/09/25US Aorta 08/08/24 [facility] Evaluation + Plan note Future Appointments Appointment Date:10/23/2024 02:30:00 PM Scheduled Provider: Location:.[facility]COL[facility] Appointment Type:ONC Injection (FT) Appointment Date:11/21/2024 02:15:00 PM Scheduled Provider: Location:.[facility] Appointment Type:ONC Injection (FT) Appointment Date:12/17/2024 08:00:00 AM Scheduled Provider: Location:[facility] Appointment Type: Medicare Wellness Subsequent Appointment Date:12/19/2024 02:15:00 PM Scheduled Provider: Location:.[facility] Appointment Type:ONC Injection (FT) Appointment Date:01/16/2025 02:05:00 PM Scheduled [facility] Type:ONC Injection (FT) Appointment Date:01/30/2025 09:15:00 AM Scheduled Provider:[facility] Appointment Date:02/13/2025 02:00:00 PM Scheduled Provider:Ana Kumar Location:.[facility]COL[facility] Appointment Type:ONC Office Visit 20 (FT) Appointment Date:02/13/2025 02:15:00 PM Scheduled Provider: Location:.[facility] Appointment Type:ONC Injection (FT) Appointment Date:03/13/2025 02:15:00 PM Scheduled [facility]: [facility] Type:ONC Injection (FT) Future Scheduled TestsCBC w/ Auto Diff 06/07/24CBC w/ Auto Diff 03/09/25Comprehensive Metabolic Panel 06/07/24Comprehensive Metabolic Panel 03/09/25Ferritin 06/07/24Ferritin 03/09/25Iron Level 06/07/24Iron Level 03/09/25Iron Percent Saturation 06/07/24Iron Percent Saturation 03/09/25Transferrin 06/07/24Transferrin 03/09/25US Aorta 08/08/24 [facility] Evaluation + Plan note Future Appointments Appointment Date:11/21/2024 02:15:00 PM Scheduled [facility]: [facility] Type:ONC Injection (FT) Appointment Date:12/17/2024 08:00:00 AM Scheduled Provider: Location:[facility] Appointment Type: Medicare Wellness Subsequent Appointment Date:12/19/2024 02:15:00 PM Scheduled Provider: [facility] Type:ONC Injection (FT) Appointment Date:01/16/2025 02:05:00 PM Scheduled Provider: [facility] Type:ONC Injection (FT) Appointment Date:01/30/2025 09:15:00 AM Scheduled Provider:Ursula Love MD Location:[facility] Appointment Type: Open Appointment Date:02/13/2025 02:00:00 PM [...] Percent Saturation 03/09/25Transferrin 06/07/24Transferrin 03/09/25US Aorta 08/08/24 [facility] Evaluation note Diagnosis Persistent atrial fibrillation (HCC)- Primary Atrial fibrillation [facility] Atrial fibrillation, unspecified type (HCC)- Primary documented in this encounter [facility] Discharge instructions No data available for this [facility] Progress note No data available for this [facility] Reason for referral (narrative)* Outpatient Procedure (Routine) - Authorized Specialty Diagnoses / Procedures Referred By Contac t Referred To Contact [facility] Diagnoses Persistent atrial fibrillation (HCC) Procedures ECG COMPLETE ECG ROUTINE ECG W/LEAST 12 LDS W/I&R Jannet Gonzalez MD [address] [place] [address] [facility] [id number] [place] [address] Referral ID Status Reason Start Date Expiration Date Visits Requested Visits Authorized [id number] Authorized Auto-Generat ed Referral 02/03/2022 02/03/2023 1 1 [facility] for referral (narrative)* Outpatient Procedure (Routine) - Authorized Specialty Diagnoses / Procedures Referred By Contac t Referred To Contact [facility] Diagnoses Atrial fibrillation, unspecified type (HCC) Procedures ECG COMPLETE ECG ROUTINE ECG W/LEAST 12 LDS W/I&R Jannet Gonzalez MD [address] [place] [address] [facility] [address] [place] [id number] Referral ID Status Reason Start Date Expiration Date Visits Requested Visits Authorized [id number] Authorized Auto-Generat ed Referral 06/27/2024 06/27/2025 1 1 [facility] Summary Purpose Family History No [...] FoundDocuments on File Type Date 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 Advance Directive(s) 07/10/2017 5:38 AM [...] section and content) DATE CREATED AUTHOR 10/08/2020 [facility] DATE CREATED AUTHOR AUTHOR'S ORGANIZ ATION 02/05/2022 [facility] DATE CREATED AUTHOR AUTHOR'S ORGANIZ ATION 01/17/2023 [facility] DATE CREATED AUTHOR AUTHOR'S ORGANIZ ATION 03/12/2024 [facility] DATE CREATED AUTHOR AUTHOR'S ORGANIZ ATION 03/13/2024 [facility] DATE CREATED AUTHOR AUTHOR'S ORGANIZ ATION 08/14/2024 [facility] DATE CREATED AUTHOR AUTHOR'S ORGANIZ ATION 09/07/2024 [facility] DATE CREATED AUTHOR AUTHOR'S ORGANIZ ATION 09/11/2024 [facility] DATE CREATED AUTHOR AUTHOR'S ORGANIZ ATION 10/04/2024 [facility] DATE CREATED AUTHOR AUTHOR'S ORGANIZ ATION 10/29/2024 [facility] DATE CREATED AUTHOR AUTHOR'S ORGANIZ ATION 11/16/2024 [facility] Source Comments (unrecognize d section and content) In the event this informatio n is protected by the Federal Confidentiality of Alcohol and Drug Abuse Patient Records regulations: The Federal rules restrict any use of the information to criminally investigate or prosecute any alcohol or drug abuse patient.[facility] the event this information is protected by the Federal Confidentiality of Alcohol and Drug Abuse Patient Records regulations: The Federal rules restrict any use of the information to criminally investigate or prosecute any alcohol or drug abuse patient.[facility] Care Teams (unrecognized sec tion and content) Grades 7 8 Tutor Relationship Specialty Start Date End Date Mark Browning PCP - General Family Practice 08/11/14 Jannet Gonzalez MD [address] [place] [address] Primary Staff Physician Cardiology 02/03/22 Grades 7 8 Tutor Relationship Specialty Start Date End Date Mark [...] BE BASED ON THE PRIMARY CLINICAL RECORDS. [facility] [employer] [facility]. provides no warranty or guarantee of the accuracy or completeness of information in this document.
[2024-11-18 08:56] VITALS: BP 174/77; PULSE 64; TEMP 36.5; O2SAT 99
[2024-11-18 09:01] LABS: Glucometer 130 mg/dL (74-106)
[2024-11-18 09:21] VITALS: BP 205/98; PULSE 68; O2SAT 98
[2024-11-18 09:22] VITALS: BP 207/98; PULSE 70; O2SAT 98
[2024-11-18] MEDS: BUPIVACAINE HCL 0.25% PF 25 MG/10 ML VIAL 2 ML INJ (09:25)
--- NOTE | 2024-11-18 09:25 | W.PM.PROCNOT ---
Date of procedure: 11/18/24 Pre-op diagnosis: Pain due to bilateral sacroiliitis Post-op diagnosis: same as pre-op Procedure: Procedure: Bilateral sacroiliac joint injection Medications: Bupivacaine 0.25% 3cc, depomedrol 40mg x2 After informed consent was obtained, the patient was brought to the medical procedure unit and placed in the prone position, when a timeout was completed verifying correct patient, procedure, site, positioning, implant, and/or special equipment.? The skin overlying the area was prepped and draped in standard sterile fashion using alcohol.? A 25-gauge needle was inserted towards the left sacroiliac joint under direct fluoroscopic imaging.? Needle tip was advanced until the joint was encountered.? We instilled a total of 2 mL of solution.? The same procedure was then completed on the right side.? Postoperatively needles were removed.? The patient tolerated the procedure well without complication.? The patient reported reduction in pain symptoms postoperatively. Anesthesia: Local Surgeon: Leonora Camacho Pathology: none sent Condition: stable Disposition: no change
[2024-11-18] MEDS: METHYLPREDNISOLONE ACETATE 40 MG/ML VIAL INJ (09:26)
[2024-11-18] MEDS: LIDOCAINE HCL 2% 400 MG/20 ML MDV INJ (09:26)
[2024-11-18] MEDS: IOHEXOL 240 MG/ML - 10 ML VIAL 12 MG INJ (09:26)
== END 2024-11-18 09:29 | disposition home or self-care (01) ==
PROVIDERS: PCP Family Medicine; Visit Provider Anesthesiology
DX: M46.1 Sacroiliitis, not elsewhere classified (principal); E11.9 Type 2 diabetes mellitus without complications; Z79.84 Long term (current) use of oral hypoglycemic drugs
CPT/HCPCS: 27096; 36415; 82948; J0665; J1010; Q9966

== ENCOUNTER 2024-12-25 07:59 | Outpatient (OUT) | payer MEDICARE, SELFPAY ==
--- OUTSIDE RECORDS SUMMARY | 2024-12-25 08:06 | XMS_ITS | CCD ---
Author Organization [facility] Care Team Providers Care Director Surface Transportation Name Role Phone Mark Browning Primary Care Provider [phone] Jannet Gonzalez MD Unavailable Ursula Love Primary Care Physician [phone] URSULA LOVE Admitting Unavailable URSULA LOVE Attending Unavailable URSULA LOVE Primary Care Unavailable URSULA LOVE Consulting Unavailable BAO, DR MOSCOSO Admitting Unavailable BAO, DR MOSCOSO Attending Unavailable URSULA LOVE Primary Care Unavailable LOA, DR POWER V Consulting Unavailable BAO, DR MOSCOSO Consulting Unavailable URSULA LOVE Consulting Unavailable Ursula Love Primary Care Physician [phone] Mark Browning DO Primary Care Provider Jannet Gonzalez MD Unavailable Ursula Love Attending Unavailable Ursula Love Attending Unavailable Ursula Love Attending Unavailable Ursula Love Attending Unavailable Ana Spencer Attending Unavailable SteviebosAna jennings Attending Unavailable DemboskeAna Attending Unavailable DemboskeAna Admitting Unavailable DemboskeAna Attending Unavailable DemboskeAna Admitting Unavailable Demboske, Ana Rivas Attending Unavailable DemboskeAna Evelyn Attending Unavailable Demboske, Ana Evelyn Attending Unavailable Demboske, Ana Rivas Attending Unavailable DemsolakeAna Referring Unavailable AnuradhakeAna Attending Unavailable Ursula Love Attending Unavailable Ursula Love Attending Unavailable Ursula Love Attending Unavailable Ursula Love Attending Unavailable Ursula Love Attending Unavailable Ursula Love Attending Unavailable Ursula Love Attending Unavailable Anuradhadick, Ana Rivas Attending Unavailable Ursula Love Referring Unavailable Ursula Love Admitting Unavailable Ursula Love Attending Unavailable Demboske, Ana Rivas Admitting Unavailable Demboske, Ana Rivas Attending Unavailable Ursula Love Attending Unavailable Ursula Love Admitting Unavailable Adamowicz, Bharath Admitting Unavailable Adamowicz, Bharath Attending Unavailable Demboske, Ana Rivas Attending Unavailable Ursula Love Referring Unavailable Demboske, Ana Rivas Attending Unavailable Demboske, Ana Rivas Attending Unavailable Demboske, Ana Rivas Attending Unavailable Ursula Love Admitting Unavailable Ursula Love Attending Unavailable Ursula Love Attending Unavailable Doug NIELSON, Leonora Raphael Attending Unavailable Doug NIELSON, Leonora Raphael Attending Unavailable PARISA HERRON Attending Unavailable JAZMYN, ULISES Referring Unavailable JAZMYN, ULISES Referring Unavailable JAZMYN, ULISES Attending Unavailable JAZMYNULISES Admitting Unavailable MOUKARBBLANKA COLMENARES Attending Unavailable JAZMYN, ULISES Attending Unavailable JAZMYN, ULISES Attending Unavailable Demboske, Ana Rivas Admitting Unavailable Demboy, Ana Rivas Attending Unavailable MD Ursula Love Attending Unavailable MD Ursula Love Attending Unavailable Demboske, Ana Rivas Attending Unavailable Demboske, Ana Rivas Attending Unavailable Demboske, Ana Rivas Attending Unavailable Demboske, Ana Rivas Attending Unavailable Allergies Allergy Classification Reported Allergen(s) Allergy Type Date of Onset Reaction(s) Facility (20 sources) Penicillins; 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: [penicillins] Propensity to adverse reactions to drug 4 Hives, Weal (disorder) [facility] (1 source) Penicillins Drug allergy (disorder) 4 [facility] (1 source) Penicillins Propensity to adverse reactions to drug 4 [facility] (3 sources) No Known Medication Allergies; 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: [No Known Medication Allergies] Propensity to adverse reactions (disorder) [facility] (2 sources) Penicillin; 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: [penicillins] Drug Allergy Weal (disorder) [facility] Medications Current Medications Medication Drug Class(es) Dates [...] MOUTH DAILY apixaban 5 mg oral tablet (20 sources) Factor Xa Inhibitor Start: 12-18-2023 take [...] # 90 tab(s), Refills(s) 0, Pharmacy: [facility]pharmacy #[id number] Start Date: 04/01/22 Stop Date: 05/01/22 Status: Ordered Centrum Minis Men 50+ oral tablet (18 sources) Start: 12-28-2023 take 1 tablet by [...] beat (AFIB)). ezetimibe 10 mg oral tablet (11 sources) Dietary Cholesterol Absorption Inhibitor Start: 03-22-2024 [...] DAILY, # 90 tab(s), Refills(s) 1, [id number] 179, cm, 03/26/24 10:53:00 EDT, Height/Length [...] Daily, # 30 tab(s), Refills(s) 0, [id number] Start Date: 04/01/22 Status: Ordered metFORMIN hydrochloride 500 mg oral tablet (20 sources) Biguanide Start: 5 metformin 500 mg Tab See Instructions, TAKE 2 TABLETS TWICE A DAY, # 360 tab(s), Refills(s) 1, Pharmacy: [facility], 179, cm, 09/09/24 11:22:00 EST, Height/Length Dosing, 79.8, kg, 09/09/24 11:22:00 EST, Weight Dosing Start Date: 10/17/24 Status: Ordered Start: 06-19-2024 metformin 500 mg Tab See Instructions, TAKE 2 TABLETS TWICE A DAY, # 360 tab(s), Refills(s) 1, Pharmacy: [facility], 179, cm, 03/26/24 10:53:00 EDT, Height/Length Dosing, 86, kg, 03/26/24 10:53:00 EDT, Weight Dosing Start Date: 06/19/24 Status: Ordered Start: 07-06-2023 metformin 500 mg Tab See Instructions, TAKE 2 TABLETS TWICE A DAY, # 360 tab(s), Refills(s) 1, Pharmacy: [facility], 178, cm, 12/18/23 13:19:00 EST, Height/Length Dosing, 89.1, kg, 12/18/23 13:19:00 EST, Weight Dosing Start Date: 12/19/23 Status: Ordered Start: 04-25-2023 take 2 tablets by mo [facility] twice daily metformin 500 mg Tab 1,000 mg = 2 tab(s), Oral, BID, TAKE TWO TABLETS BY MOUTH TWICE A DAY, # 360 tab(s), Refills(s) 1, Pharmacy: [facility], 178, cm, 12/19/22 9:57:00 EST, Height/Length Dosing, 90.4, kg, 12/19/22 9:57:00 EST, Weight Dosing Start Date: 04/25/23 Status: Ordered Start: 04-01-2022 End: 09-28-2022 take 2 tablets by mouth twice daily metformin 500 mg ER Tab 1,000 mg = 2 tab(s), Oral, BID, X 90 day(s), # 360 tab(s), Refills(s) 1, Pharmacy: [facility] Start Date: 04/01/22 Stop [...] DAILY, # 90 cap(s), Refills(s) 1, Pharmacy: [facility], 179, cm, 03/26/24 10:53:00 EDT, Height/Length Dosing, 86, kg, 03/26/24 10:53:00 EDT, Weight Dosing Start Date: 05/06/24 Status: Ordered Start: 11-20-2023 take 1 capsule by mo uth once daily omeprazole 20 mg Cap-DR 20 mg = 1 cap(s), Oral, Daily, # 90 cap(s), Refills(s) 1, Pharmacy: [facility], 178, cm, 08/29/23 14:28:00 EST, Height/Length Dosing, 90.8, kg, 08/29/23 14:28:00 EST, Weight Dosing Start Date: 11/20/23 Status: Ordered Start: 07-03-2023 take 1 capsule by mo ut once daily omeprazole 20 mg Cap-DR 20 mg = 1 cap(s), Oral, Daily, # 90 cap(s), Refills(s) 1, Pharmacy: [facility], 178, cm, 07/03/23 7:24:00 EDT, Height/Length Dosing, 90, kg, 07/03/23 7:24:00 EDT, Weight Dosing Start Date: 07/03/23 Status: Ordered Start: 08-29-2014 End: 09-28-2022 take 1 capsule by mouth once daily omeprazole 20 mg Cap-DR 20 mg = 1 cap(s), Oral, Daily, X 90 day(s), # 90 cap(s), Refills(s) 1, [email or web address] Start Date: 04/01/22 Stop Date: 09/28/22 Status: Ordered Comment on above: Take 1 capsule by mo uth once daily. ProFe 180 mg oral capsule (8 sources) Start: 12-25-2023 take 1 capsule by mouth once daily ProFe 180 mg oral capsule 180 mg = 1 cap(s), Oral, Daily, # 100 cap(s), Refills(s) 0, Pharmacy: [facility]/pharmacy #[id number], 178, cm, 12/18/23 13:19:00 EST, Height/Length [...] # 10 cap(s), Refills(s) 0, Pharmacy: [facility]/pharmacy #[id number], 178, cm, 07/19/23 11:20:00 EDT, Height/Length [...] Coronary arteriosclerosis; 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: [Atherosclerotic heart disease of [place] coronary artery without angina pectoris] Onset: 4 10-02-2014 Chronic Deficiency and other anemia (18 sources) Microcytic anemia 12-28-2023 Episodic Deficiency and [...] unspecified] Onset: 4 Chronic Other gastrointestinal disorders (18 sources) Splenomegaly 12-28-2023 Episodic Other non-traumatic joint disorders (11 sources) Hip pain 03-26-2024 Episodic Other nutritional; [...] sources) Long-term current use of anticoagulant; 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 HPon 11-14-2024 [facility] Electrophysiology Consult Note [place] Cardiology [facility] Reason for visit: Afib 11/14/24 Pt here for Afib ablation 10/01/24 Patient here for H&P prior to afib ablation scheduled on 10/03/2024. Denies chest pain, SOB, and bleeding on Eliquis. Prior HPI: Marcelle Doherty is a 64 y.o. 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 PHAN. There is a history of prior A-fib ablation done at [facility] on 07/10/2017 by and was noted to have atrial flutter subsequently which was converted by cardioversion to sinus rhythm on 07/28/2017. Since then he has been following up with Jannet Gonzalez at [facility]. He is currently maintained on metoprolol [...] and is quite symptomatic with this. His [id number] score is 3 with risk factors of [...] Arrhythmia CAD (coronary artery disease) Diabetes mellitus ([facility]) GERD (gastroesophageal reflux disease) Hyperlipidemia Hypertension Irregular heart beat PAF (paroxysmal atrial fibrillation) ([facility]) PSH: Past Surgical History: Procedure Laterality Date [...] on file Intimate Partner Violence: Unknown (12/07/2023) [place] Safety & Environment Fear of Current or [...] And Rhythm: reg (more content not included)... [facility] SAINOTUcheon 11-14-2024 SAINOTUche Bob catheter removed per order. Patient tolerated [...] slowly getting dressed and ready for discharge. [facility] TUCKER Received report from JENNIFER Davis. Patient has been flat for the 2 hour specified time and has been sitting upright at HOB 30. No bleeding noted at site, no swelling or tenderness. Patient is alert, oriented, eating crackers and drinking water, speaking with family. Will wait for another check before removing bob catheter and allowing patient to discharge per order. [facility] TUCKER Rod Pointer reviewed AVS with patient and at bedside, all questions answered. Patient signed AVS, copy given to . Normal [facility] POCT GLUCOSE METER UNSOLICIT ED RESULTSon 11-14-2024 Glucose [Mass/Vol] 134 mg/dL High 70-105 [facility] Comment on above: Order Comment: Waive d Testing in the ED is performed under the ED CLIA certificate #[id number]. Result Comment: dspe ars Performed By: #### L [id number] ####[facility] LAB (BEAKER)[address] [place] [address] Glucose [Mass/Vol] 150 mg/dL High 70-105 [facility] Comment on above: Order Comment: Waive d Testing in the ED is performed under the ED CLIA certificate #[id number]. Result Comment: [email or web address] Performed By: #### L [id number] ####[facility] LAB (BEAKER)[address] [place] [address] PROTIME-INRon 11-14-2024 INR IN PPP BY COAGULATION ASSAY 1.06 Normal 0.90-1.[address] [facility] Comment on above: Result Comment: ACCC P [...] CHEST 1995;108:[id number]-246S. Performed By: #### L [id number] ####[facility] (BEAKER)[address] [place] [address] PROTHROMBIN TIME (PT) IN PPP BY COAGULATION ASSAY 13.8 Seconds Normal 12.3-14.[address] [facility] Comment on above: Performed By: #### L [id number] ####[facility] (BEAKER)[address] [place] [address] Prep for Procedureon 025 Prep for Procedure [id number] Lim 1960 [facility] Provider Department Center 11/14/2024 [facility] [place] [facility] Family History Problem Relation Age of Onset Coronary artery disease Father Atrial fibrillation Father Heart attack Brother Family Status - Relation Status Age at Father Brother Normal [facility] Anesthesiaon 10-03-2024 Anesthesia [id number] Lim 1960 [facility] Provider Department Center 10/03/2024 [facility] [place] [facility] Family History Problem Relation Age of Onset Coronary artery disease Father Atrial fibrillation Father Heart attack Brother Family Status - Relation Status Age at Father Brother Normal [facility] Office Visiton 10-01-2024 Follow-up visit [id number] Lim 1960 [facility] Provider Department Center 10/01/2024 [facility] Family History Problem Relation Age of Onset Coronary artery disease Father Atrial fibrillation Father Heart attack Brother Family Status - Relation Status Age at Father Brother Level of Service:[id number] [place] OFFICE/OUTPATIENT ESTABLISHED MOD MDM 30 MIN Normal [facility] Population Healthon 09-27-20 24 Population Health Population Health Case Information Case Priority: None Programs: -- Referral Source: Field Assembly Supervisor Referral Reason: Disease management Case Type: [...] 28.0-28.9,adult BPH (benign prostatic hyperplasia) CAD in [place] artery Controlled type 2 diabetes mellitus without [...] person at home CM Preferred Spoken Language Sur[place]e CM Preferred Written Language [place]e Preferred Communication Mode Verbal Ability to Read/Write Able to read, Able to write Preferred Salutation Preferred Method of Contact Cell Cell Phone [phone] Best Time to Visit or Contact 7-10 am Best Day to Visit or Contact No preference Appointment Reminders Patient portal, Other secured messaging Preferred Way to Send PHI Patient portal Preferred Mailing Address [address] [place] [address], [facility] Learning Style Pref Patient Verbal explanation [...] Shares bed Support System Spouse/Significant other Primary Cloud Physicist of Home Medication Self Current DME at [...] Physical He (more content not included)... Normal [facility] Prep for Procedureon 024 Prep for Procedure [id number] Marcelle Doherty Maria D 1960 Date Provider Department Center 09/11/2024 1987-[facility] [place] [facility] Family History Problem Relation Age of Onset Coronary artery disease Father Atrial fibrillation Father Heart attack Brother Family Status - Relation Status Age at Father Brother Normal [facility] Office Visiton 09-10-2024 Follow-up visit [id number] DohertyMarcelle 1960 Date Provider Department Center 09/10/2024 [facility] Family History Problem Relation Age of Onset Coronary artery disease Father Atrial fibrillation Father Heart attack Brother Family Status - Relation Status Age at Father Brother Level of Service:69633 [place] OFFICE/OUTPATIENT ESTABLISHED LOW MDM 20 MIN Reason for Visit and Comments: Follow-up [[id number]] - A Fib management Normal [facility] CBC w/ Auto Diffon 4 Basophils/100 WBC (Bld) 0.6 % Normal 0.0-2.0 [facility] Comment on above: Performed By: #### 2 [id number] #### [facility] [address] [place] [address] Basophils/Leukocytes Auto (Bld) [Pure # fraction] 0.0 E9/L Normal 0.0-0.2 [facility] Comment on above: Performed By: #### 2 [id number] #### [facility] [address] [place] [address] Eosinophils (Bld) [#/Vol] 0.1 E9/L Normal 0.0-0.5 [facility] Comment on above: Performed By: #### 2 [id number] #### [facility] [address] [place] [address] Eosinophils/100 WBC (Bld) 1.7 % Normal 0.0-8.0 [facility] Comment on above: Performed By: #### 2 [id number] #### [facility] [address] [place] [address] Erythrocyte distribution width (RBC) [Ratio] 13.9 % Normal 10.9-14.2 [facility] Comment on above: Performed By: #### 2 [id number] #### [facility] [address] [place] [address] Hematocrit (Bld) [Volume fraction] 39.6 % Normal 37.7-49.0 [facility] Comment on above: Performed By: #### 2 [id number] #### [facility] [address] [place] [address] Hemoglobin (Bld) [Mass/Vol] 14.0 g/dL Normal 13.5-17.5 [facility] Comment on above: Performed By: #### 2 [id number] #### [facility] [address] [place] [address] Lymphocytes (Bld) [#/Vol] 1.5 E9/L Normal 1.0-4.0 [facility] Comment on above: Performed By: #### 2 [id number] #### [facility] [address] [place] [address] Lymphocytes/100 WBC (Bld) 28.4 % Normal 14.0-50.0 [facility] Comment on above: Performed By: #### 2 [id number] #### [facility] [address] [place] [address] MCH (RBC) [Entitic mass] 31.9 pg Normal 27.0-34.0 [facility] Comment on above: Performed By: #### 2 [id number] #### [facility] [address] [place] [address] MCHC (RBC) [Mass/Vol] 35.3 g/dL Normal 31.4-36.0 [facility] Comment on above: Performed By: #### 2 [id number] #### [facility] [address] [place] [address] MCV (RBC) [Entitic vol] 90.5 fL Normal 80.0-100.0 [facility] Comment on above: Performed By: #### 2 [id number] #### [facility] [address] [place] [address] Monocytes (Bld) [#/Vol] 0.6 E9/L Normal 0.2-1.0 [facility] Comment on above: Performed By: #### 2 [id number] #### [facility] [address] [place] [address] Neutrophils (Bld) [#/Vol] 3.2 E9/L Normal 2.0-7.5 [facility] Comment on above: Performed By: #### 2 [id number] #### [facility] [address] [place] [address] Neutrophils/100 WBC (Bld) 58.2 % Normal 36.0-75.0 [facility] Comment on above: Performed By: #### 2 [id number] #### [facility] [address] [place] [address] Platelet mean volume (Bld) [Entitic vol] 9.3 fL Normal 6.4-10.8 [facility] Comment on above: Performed By: #### 2 817509 #### [facility] [address] [place] [address] Platelets (Bld) [#/Vol] 144.0 E9/L Low 150.0-500.0 [facility] Comment on above: Performed By: #### 2 641678 #### [facility] [address] [place] [address] RBC (Bld) [#/Vol] 4.4 E12/L Normal 4.3-5.9 [facility] Comment on above: Performed By: #### 2 [id number] #### [facility] [address] [place] [address] WBC corrected for nucl RBC Auto (Bld) [#/Vol] 5.4 E9/L Normal 4.0-11.0 [facility] Comment on above: Performed By: #### 2 249193 #### [facility] [address] [place] [address] CHEMISTRYOrdered By: SYSTEM SYSTEM on 09-04-2024 Albumin [...] 09-04-2024 Albumin [Mass/Vol] 4.2 g/dL Normal 3.3-5.0 [facility] Comment on above: Performed By: #### 2 195990 #### [facility] [address] [place] [address] Albumin/Globulin (S) [Mass conc ratio] 2.5 High 1.1-2.2 [facility] Comment on above: Performed By: #### 2 [id number] #### [facility] [address] [place] [address] ALP [Catalytic activity/Vol] 53 Int._Unit/L Normal 21-98 [facility] Comment on above: Performed By: #### 2 166855 #### [facility] [address] [place] [address] ALT No additional P-5'-P [Catalytic activity/Vol] 41 Int._Unit/L Normal 6-46 [facility] Comment on above: Performed By: #### 2 875784 #### [facility] [address] [place] [address] Anion gap [Moles/Vol] 12 mmol/L Normal 6-16 [facility] Comment on above: Performed By: #### 2 653110 #### [facility] [address] [place] [address] AST [Catalytic activity/Vol] 23 Int._Unit/L Normal 5-43 [facility] Comment on above: Performed By: #### 2 [id number] #### [facility] [address] [place] [address] Bilirubin [Mass/Vol] 1.6 mg/dL High 0.0-1.1 [facility] Comment on above: Performed By: #### 2 251025 #### [facility] [address] [place] [address] Calcium [Mass/Vol] 9.4 mg/dL Normal 8.9-11.1 [facility] Comment on above: Performed By: #### 2 340254 #### [facility] [address] [place] [address] Chloride [Moles/Vol] 99 mmol/L Low 101-111 [facility] Comment on above: Performed By: #### 2 558617 #### [facility] [address] [place] [address] CO2 [Moles/Vol] 28 mmol/L Normal 21-31 [facility] Comment on above: Performed By: #### 2 547069 #### [facility] [address] [place] [address] Creatinine [Mass/Vol] 0.8 mg/dL Normal 0.5-1.3 [facility] Comment on above: Performed By: #### 2 870874 #### [facility] [address] [place] [address] Globulin (S) [Mass/Vol] 1.7 g/dL Normal 1.4-4.0 [facility] Comment on above: Performed By: #### 2 [id number] #### [facility] [address] [place] [address] Glucose [Mass/Vol] 121 mg/dL Normal 55-199 [facility] Comment on above: Performed By: #### 2 342896 #### [facility] [address] [place] [address] Potassium [Moles/Vol] 4.4 mmol/L Normal 3.5-5.3 [facility] Comment on above: Performed By: #### 2 534352 #### [facility] [address] [place] [address] Protein [Mass/Vol] 5.9 g/dL Low 6.0-7.8 [facility] Comment on above: Performed By: #### 2 765731 #### [facility] [address] [place] [address] Sodium [Moles/Vol] 135 mmol/L Normal 135-145 [facility] Comment on above: Performed By: #### 2 736032 #### [facility] [address] [place] [address] Urea nitrogen [Mass/Vol] 13 mg/dL Normal 5-21 [facility] Comment on above: Performed By: #### 2 [id number] #### [facility] [address] [place] [address] Urea nitrogen/Creatinine [Mass ratio] 16 No Units Normal 10-20 [facility] Comment on above: Performed By: #### 2 027846 #### [facility] [address] [place] [address] Ferritinon 09-04-2024 Ferritin [Mass/Vol] 146 ng/mL Normal 24-336 [facility] Comment on above: Performed By: #### 2 189932 #### [facility] [address] [place] [address] HEMATOLOGYOrdered By: SYSTEM SYSTEM on 09-04-2024 Basophils/100 [...] 09-04-2024 Iron [Mass/Vol] 118 microgram/dL Normal 35-153 [facility] Comment on above: Performed By: #### 2 256019 #### [facility] [address] [place] [address] Iron Saturationon 09-04-2024 Iron binding capacity [Mass/Vol] 309 microgram/dL Normal 250-400 [facility] Comment on above: Performed By: #### 2 787691 #### [facility] [address] [place] [address] Iron saturation [Mass fraction] 38 % Normal 20-50 [facility] Comment on above: Performed By: #### 2 795894 #### [facility] [address] [place] [address] Transferrinon 09-04-2024 Transferrin [Mass/Vol] 221 mg/dL Normal 200-370 [facility] Comment on above: Performed By: #### 2 458258 #### [facility] [address] [place] [address] eGFRon 09-04-2024 eGFR 97 mL/min/1.73 m2 Normal >=59 [facility] Comment on above: Performed By: #### 1 [id number] #### [facility] [address] [place] [address] 36on 08-02-2024 36 Late entry Spoke with Bonita 07/23/24. Explained that patient would need to come to [facility] to have 24hr BP monitor placed. Options for returning would depend on when patient was coming to have it placed. Bonita was going to call and speak with patient and let me know. [facility] Ambulatory Visit Summaryon 1 Ambulatory Visit Summary Ambulatory Visit Summary MARCELLE DOHERTY :1960 Visit Date:08/01/2024 Ambulatory Visit Instructions Your Diagnosis CAD in [place] artery Controlled type 2 diabetes mellitus without [...] Monday 11:00 AM EST With: Tj BURTON, nAa Rivas Where: [facility] 2023 2:00 PM EST With: Where: [facility] 2024 2:15 PM EST With: Where: [facility] 2024 2:15 PM EST With: Where: [facility] Monday 8:00 AM EST With: Where: [address] [address]- 2024 2:15 PM EST With: Where: [facility] 2024 2:05 PM EDT With: Where: [facility] 2024 9:15 AM EDT With: Km NIELSON, Ursula Porter Where: [id number] [place] [address]- 2024 2:15 PM EDT With: Where: [facility] [...] a da (more content not included)... Normal [facility] Family Medicine Office/Clini c Noteon [...] + Bowel sounds Assessment/Plan 1. CAD in [place] artery (I25.10: Atherosclerotic heart disease of [place] coronary artery without angina pectoris) Continue monitoring [...] Current tobacco (more content not included)... Normal [facility] Comment on above: Result Comment: Elec tronically Signed By: Ursula Love MD\.br\Date and Time Signed: 08/01/24 11:[address] [facility] 07-31-20 [facility] Case Information Case Priority: None Programs: -- Referral Source: Field Assembly Supervisor Referral Reason: Disease management Case Type: Chronic Care Management Risk Score: -- Case Status: Active (December 28, 2023) Date Assigned: December 19, 2023 Assigned By: Christian Hernandez Date Enrolled: December 28, 2023 Assigned Primary Personnel: Christian Hernandez Assigned Secondary Personnel: -- Case Physician: Ursula Love MD Problems Ongoing AAA (abdominal aortic aneurysm) Aortic aneurysm BMI 28.0-28.9,adult BPH (benign prostatic hyperplasia) CAD in [place] artery Controlled type 2 diabetes mellitus without [...] No., 12/18/2023 Employment/School Employed, Work/School description: [employer]. Highest education level: High school. 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 [...] CCM Program Enrollment Verbally agreed to receive [facility] services CCM Written Consent Written consent in progress CCM Verbal Consent By Self 12/28/23 07:00:00 Result Name Value Comment HIPPA Verified Type of Contact In person at home CM Preferred Spoken Language Surinamese CM Preferred Written Language Surinamese Preferred Communication Mode Verbal Ability to Read/Write Able to read, Able to write Preferred Salutation MrNelly Preferred Method of Contact Cell Cell Phone [phone] Best Time to Visit or Contact 7-10 am Best Day to Visit or Contact No preference Appointment Reminders Patient portal, Other secured messaging Preferred Way to Send PHI Patient portal Preferred Mailing Address [address] [place] [address] Learning Style Pref Patient Verbal explanation Learning [...] Shares bed Support System Spouse/Significant other Primary Cloud Physicist of Home Medication Self Current DME at Home No Currently Receiving Skilled Services No Skilled Service Need (more content not included)... Normal [facility] 36on 07-19-[address] results [...] this and what it all entails? Thanks. [facility] Orders Onlyon 09-30-2024 Orders Only [id number] Marcelle Doherty 1960 M Date Provider Department Center 07/15/2024 895-ALESHA DAMON [facility] Family History Problem Relation Age of Onset Coronary artery disease Father Atrial fibrillation Father Heart attack Brother Family Status - Relation Status Age at Father Brother Normal [facility] Office Visiton 07-12-2024 Follow-up visit [id number] Marcelle Doherty 1960 Date Provider Department Center 07/12/2024 Yvonne-BLANKA ERAZO [facility] Family History Problem Relation Age of Onset Coronary artery disease Father Atrial fibrillation Father Heart attack Brother Family Status - Relation Status Age at Father Brother Level of Service:20049 [place] OFFICE/OUTPATIENT ESTABLISHED MOD MDM 30 MIN Normal [facility] Orders Onlyon 07-11-2024 Orders Only [id number] Marcelle Doherty 1960 Date Provider Department Center 07/11/2024 3204-BUTCH MONSALVE [facility] Family History Problem Relation Age of Onset Coronary artery disease Father Atrial fibrillation Father Heart attack Brother Family Status - Relation Status Age at Father Brother Normal [facility] Population Health 06-28-20 Population [facility] Population Health Case Information Case Priority: None Programs: -- Referral Source: Field Assembly Supervisor Referral Reason: Disease management Case Type: Chronic Care Management Risk Score: -- Case Status: Active (December 28, 2023) Date Assigned: December 19, 2023 Assigned By: Christian Hernandez Date Enrolled: December 28, 2023 Assigned Primary Personnel: Christian Hernandez Assigned Secondary Personnel: -- Case Physician: Ursula Love MD Ongoing AAA (abdominal aortic aneurysm) Aortic aneurysm BMI 28.0-28.9,adult BPH (benign prostatic hyperplasia) CAD in [place] artery Controlled type 2 diabetes mellitus without [...] CCM Program Enrollment Verbally agreed to receive [facility] services CCM Written Consent Written consent in progress CCM Verbal Consent By Self 12/28/23 07:00:00 Result Name Value Comment HIPPA Verified Type of Contact In person at home CM Preferred Spoken Language Surinamese CM Preferred Written Language Sur[place]amese Preferred Communication Mode Verbal Ability to Read/Write Able to read, Able to write Preferred Salutation Preferred Method of Contact Cell Cell Phone [phone] Best Time to Visit or Contact 7-10 am Best Day to Visit or Contact No preference Appointment Reminders Patient portal, Other secured messaging Preferred Way to Send PHI Patient portal Preferred Mailing Address [address] [place] [address], [facility] Learning Style Pref Patient Verbal explanation [...] Shares bed Support System Spouse/Significant other Primary Cloud Physicist of Home Medication Self Current DME at Home No Currently Receiving Skilled Services No Skilled Service Need (more content not included)... Normal [facility] 06-11-20 [facility] Case Information Case Priority: None Programs: -- Referral Source: Field Assembly Supervisor Referral Reason: Disease management Case Type: Chronic Care Management Risk Score: -- Case Status: Active (December 28, 2023) Date Assigned: December 19, 2023 Assigned By: Christian Hernandez Date Enrolled: December 28, 2023 Assigned Primary Personnel: Christian Hernandez Assigned Secondary Personnel: -- Case Physician: Ursula Love MD Ongoing AAA (abdominal aortic aneurysm) Aortic aneurysm BMI 28.0-28.9,adult BPH (benign prostatic hyperplasia) CAD in [place] artery Controlled type 2 diabetes mellitus without [...] CCM Program Enrollment Verbally agreed to receive [facility] services CCM Written Consent Written consent in progress CCM Verbal Consent By Self 12/28/23 07:00:00 Result Name Value Comment HIPPA Verified Type of Contact In person at home CM Preferred Spoken Language Surinamese CM Preferred Written Language Surinamese Preferred Communication Mode Verbal Ability to Read/Write Able to read, Able to write Preferred Salutation MrNelly Preferred Method of Contact Cell Cell Phone [phone] Best Time to Visit or Contact 7-10 am Best Day to Visit or Contact No preference Appointment Reminders Patient portal, Other secured messaging Preferred Way to Send PHI Patient portal Preferred Mailing Address [address] [place] [address], [phone] Learning Style Pref Patient Verbal explanation Learning [...] Shares bed Support System Spouse/Significant other Primary Cloud Physicist of Home Medication Self Current DME at Home No Currently Receiving Skilled Services No Skilled Service Needs Anticipated No Barriers to Care None Home Barriers None (more content not included)... Normal [facility] 36on 06-04-2024 36 Regarding carotid duplex performed on 05/29/2024: MERVAT Kendrick MA Let them know less than 49% stenosis of both carotids- really very good- Continue all meds and we will see them next time Probably a repeat carotid in 1-3 years- unless symptoms Patient made aware via email. Normal [facility] Population Healthon 04-25-20 24 [facility] Case Information Case Priority: None Programs: -- Referral Source: Field Assembly Supervisor Referral Reason: Disease management Case Type: Chronic Care Management Risk Score: -- Case Status: Active (December 28, 2023) Date Assigned: December 19, 2023 Assigned By: Christian Hernandez Date Enrolled: December 28, 2023 Assigned Primary Personnel: Christian Hernandez Assigned Secondary Personnel: -- Case Physician: Ursula Love MD Ongoing AAA (abdominal aortic aneurysm) Aortic aneurysm BMI 28.0-28.9,adult BPH (benign prostatic hyperplasia) CAD in [place] artery Controlled type 2 diabetes mellitus without [...] CCM Program Enrollment Verbally agreed to receive [facility] services CCM Written Consent Written consent in progress CCM Verbal Consent By Self 12/28/23 07:00:00 Result Name Value Comment HIPPA Verified Type of Contact In person at home CM Preferred Spoken Language Surinamese CM Preferred Written Language [place]amese Preferred Communication Mode Verbal Ability to Read/Write Able to read, Able to write Preferred Salutation MrNelly Preferred Method of Contact Cell Cell Phone [phone] Best Time to Visit or Contact 7-10 am Best Day to Visit or Contact No preference Appointment Reminders Patient portal, Other secured messaging Preferred Way to Send PHI Patient portal Preferred Mailing Address [address] [place] [address], [phone] Learning Style Pref Patient Verbal explanation Learning [...] Shares bed Support System Spouse/Significant other Primary Cloud Physicist of Home Medication Self Current DME at Home No Currently Receiving Skilled Services No Skilled Service Needs Anticipated No Barriers to Care None Home Barriers None Employment Status Retired Financial Issues None Sources of Income Socia (more content not included)... Normal [facility] Ambulatory Visit Summaryon 0 03-26-2024 Ambulatory Visit Summary MARCELLE DOHERTY Maria D :1960 Visit Date:03/26/2024 Ambulatory Visit [...] Oncology Monday 8:00 AM EST With: Where: [facility] [place] Normal [facility] Family Medicine Office/Clini c Noteon 03-26-2024 [...] # 100 cap(s), Refills(s) 0, Pharmacy: [facility]/pharmacy #[id number], 178, cm, 12/18/23 13:19:00 EST, Height/Length Dosing, 89.1, kg, 12/18/23 13:19:00 EST, Weight Dosing lisinopril, See Instructions, TAKE 1 TABLET DAILY, # 90 tab(s), Refills(s) 1, Pharmacy: [facility]/pharmacy #[id number], 179, cm, 03/26/24 10:53:00 EDT, Height/Length Dosing, 86, kg, 03/26/24 10:53:00 EDT, Weight Dosing Follow-up No qualifying data available Problem List/Past Medical History Ongoing AAA (abdominal aortic aneurysm) Aortic aneurysm BMI 28.0-28.9,adult BPH (benign prostatic hyperplasia) CAD in [place] artery Controlled type 2 diabetes mellitus without [...] Others hurt by (more content not included)... [facility] Comment on above: Result Comment: Elec tronically Signed By: Ursula Love MD\.br\Date and Time Signed: 03/26/24 16:51 EDT Physician Referralon 024 Physician Referral [id number] .00TIFF [facility] Population Healthon 03-22-20 24 Population Health Case Information Case Priority: None Programs: -- Referral Source: Heating Fixture Tender Referral Reason: Disease management Case Type: Chronic Care Management Risk Score: -- Case Status: Active (December 28, 2023) Date Assigned: December 19, 2023 Assigned By: Christian Hernandez Date Enrolled: December 28, 2023 Assigned Primary Personnel: Christian Hernandez Assigned Secondary Personnel: -- Case Physician: Ross MD, Ursula E. Problems Ongoing AAA (abdominal aortic aneurysm) Aortic aneurysm BMI 28.0-28.9,adult BPH (benign prostatic hyperplasia) CAD in [place] artery Controlled type 2 diabetes mellitus without [...] CCM Program Enrollment Verbally agreed to receive [facility] services CCM Written Consent Written consent in progress CCM Verbal Consent By Self 12/28/23 07:00:00 Result Name Value Comment HIPPA Verified Type of Contact In person at home CM Preferred Spoken Language Surinamese CM Preferred Written Language Surinamese Preferred Communication Mode Verbal Ability to Read/Write Able to read, Able to write Preferred Salutation MrNelly Preferred Method of Contact Cell Cell Phone [phone] Best Time to Visit or Contact 7-10 am Best Day to Visit or Contact No preference Appointment Reminders Patient portal, Other secured messaging Preferred Way to Send PHI Patient portal Preferred Mailing Address [address] [place] [address], [facility] Learning Style Pref Patient Verbal explanation [...] Shares bed Support System Spouse/Significant other Primary Cloud Physicist of Home Medication Self Current DME at Home No Currently Receiving Skilled Services No Skilled Service Needs Anticipated No Barriers to Care None Home Barriers None Employment Status Retired Financial Issues None Sources of Income Social Security Pat (more content not included)... Normal [facility] Consent for Treatmenton 02-15 Consent for Treatment [id number] [facility] Oncology Progress Noteon Oncology Progress Note [...] a colonoscopy done in Sep 2023 at [facility] after positive Cologuard test. This showed a [...] Contact Information Tj NATHAN-PEMA, Ana Rivas, ONC [facility] [address] [place] [address] [place] [address] [phone] Additional Instructions: cbc, cmp, iron studies in 3mo and 6mo follow-up in 6mo with ACCREDITATION MANAGER Medications amLODIPine 5 mg Tab, Oral, Daily [...] 100 (more content not included)... Normal [facility] CBC w/ Auto Diffon 4 Acanthocytes LM Ql (Bld) PRESENT Invalid Interpretation Code [facility] Comment on above: Performed By: #### 2 [id number] #### [facility] [address] [place] [address] Anisocytosis Ql (Bld) PRESENT Invalid Interpretation Code [facility] Comment on above: Performed By: #### 2 [id number] #### [facility] [address] [place] [address] Basophils/100 WBC (Bld) 0.8 % Normal 0.0-2.0 [facility] Comment on above: Performed By: #### 2 [id number] #### [facility] [address] [place] [address] Basophils/Leukocytes Auto (Bld) [Pure # fraction] 0.0 E9/L Normal 0.0-0.2 [facility] Comment on above: Performed By: #### 2 [id number] #### [facility] [address] [place] [address] Eosinophils (Bld) [#/Vol] 0.2 E9/L Normal 0.0-0.5 [facility] Comment on above: Performed By: #### 2 [id number] #### [facility] [address] [place] [address] Eosinophils/100 WBC (Bld) 3.7 % Normal 0.0-8.0 [facility] Comment on above: Performed By: #### 2 [id number] #### [facility] [address] [place] [address] Erythrocyte distribution width (RBC) [Ratio] 27.1 % High 10.9-14.2 [facility] Comment on above: Performed By: #### 2 [id number] #### [facility] [address] [place] [address] Hematocrit (Bld) [Volume fraction] 40.0 % Normal 37.7-49.0 [facility] Comment on above: Performed By: #### 2 [id number] #### [facility] [address] [place] [address] Hemoglobin (Bld) [Mass/Vol] 13.4 g/dL Low 13.5-17.5 [facility] Comment on above: Performed By: #### 2 [id number] #### [facility] [address] [place] [address] Hypochromia Auto Ql (Bld) PRESENT Invalid Interpretation Code [facility] Comment on above: Performed By: #### 2 [id number] #### [facility] [address] [place] [address] Lymphocytes (Bld) [#/Vol] 1.6 E9/L Normal 1.0-4.0 [facility] Comment on above: Performed By: #### 2 [id number] #### [facility] [address] [place] [address] Lymphocytes/100 WBC (Bld) 32.5 % Normal 14.0-50.0 [facility] Comment on above: Performed By: #### 2 [id number] #### [facility] [address] [place] [address] MCH (RBC) [Entitic mass] 27.3 pg Normal 27.0-34.0 [facility] Comment on above: Performed By: #### 2 [id number] #### [facility] [address] [place] [address] MCHC (RBC) [Mass/Vol] 33.6 g/dL Normal 31.4-36.0 [facility] Comment on above: Performed By: #### 2 [id number] #### [facility] [address] [place] [address] MCV (RBC) [Entitic vol] 81.4 fL Normal 80.0-100.0 [facility] Comment on above: Performed By: #### 2 [id number] #### [facility] [address] [place] [address] Monocytes (Bld) [#/Vol] 0.4 E9/L Normal 0.2-1.0 [facility] Comment on above: Performed By: #### 2 [id number] #### [facility] [address] [place] [address] Neutrophils (Bld) [#/Vol] 2.7 E9/L Normal 2.0-7.5 [facility] Comment on above: Performed By: #### 2 [id number] #### [facility] [address] [place] [address] Neutrophils/100 WBC (Bld) 55.1 % Normal 36.0-75.0 [facility] Comment on above: Performed By: #### 2 [id number] #### [facility] [address] [place] [address] Ovalocytes LM Ql (Bld) PRESENT Invalid Interpretation Code [facility] Comment on above: Performed By: #### 2 [id number] #### [facility] [address] [place] [address] Platelet mean volume (Bld) [Entitic vol] 9.9 fL Normal 6.4-10.8 [facility] Comment on above: Performed By: #### 2 [id number] #### [facility] [address] [place] [address] Platelets (Bld) [#/Vol] 116.0 E9/L Low 150.0-500.0 [facility] Comment on above: Performed By: #### 2 [id number] #### [facility] [address] [place] [address] RBC (Bld) [#/Vol] 4.9 E12/L Normal 4.3-5.9 [facility] Comment on above: Performed By: #### 2 [id number] #### [facility] [address] [place] [address] RBC size Nom (Bld) SEE MORPHOLOGY Invalid Interpretation Code [facility] Comment on above: Performed By: #### 2 [id number] #### [facility] [address] [place] [address] WBC corrected for nucl RBC Auto (Bld) [#/Vol] 5.0 E9/L Normal 4.0-11.0 [facility] Comment on above: Performed By: #### 2 630755 #### [facility] [address] [place] [address] CHEMISTRYOrdered By: SYSTEM SYSTEM on 03-12-2024 Albumin [...] Albumin [Mass/Vol] 4.3 g/dL Normal 3.3-5.0 [facility] Comment on above: Performed By: #### 2 490694 #### [facility] [address] [place] [address] Albumin/Globulin (S) [Mass conc ratio] 2.3 High 1.1-2.2 [facility] Comment on above: Performed By: #### 2 [id number] #### [facility] [address] [place] [address] ALP [Catalytic activity/Vol] 54 Int._Unit/L Normal 21-98 [facility] Comment on above: Performed By: #### 2 [id number] #### [facility] [address] [place] [address] ALT No additional P-5'-P [Catalytic activity/Vol] 47 Int._Unit/L High 6-46 [facility] Comment on above: Performed By: #### 2 [id number] #### [facility] [address] [place] [address] Anion gap [Moles/Vol] 12 mmol/L Normal 6-16 [facility] Comment on above: Performed By: #### 2 [id number] #### [facility] [address] [place] [address] AST [Catalytic activity/Vol] 30 Int._Unit/L Normal 5-43 [facility] Comment on above: Performed By: #### 2 [id number] #### [facility] [address] [place] [address] Bilirubin [Mass/Vol] 1.8 mg/dL High 0.0-1.1 [facility] Comment on above: Performed By: #### 2 111879 #### [facility] [address] [place] [address] Calcium [Mass/Vol] 9.1 mg/dL Normal 8.9-11.1 [facility] Comment on above: Performed By: #### 2 [id number] #### [facility] [address] [place] [address] Chloride [Moles/Vol] 102 mmol/L Normal 101-111 [facility] Comment on above: Performed By: #### 2 [id number] #### [facility] [address] [place] [address] CO2 [Moles/Vol] 26 mmol/L Normal 21-31 [facility] Comment on above: Performed By: #### 2 483735 #### [facility] [address] [place] [address] Creatinine [Mass/Vol] 0.8 mg/dL Normal 0.5-1.3 [facility] Comment on above: Performed By: #### 2 [id number] #### [facility] [address] [place] [address] Globulin (S) [Mass/Vol] 1.9 g/dL Normal 1.4-4.0 [facility] Comment on above: Performed By: #### 2 994347 #### [facility] [address] [place] [address] Glucose [Mass/Vol] 153 mg/dL Normal 55-199 [facility] Comment on above: Performed By: #### 2 113990 #### [facility] [address] [place] [address] Potassium [Moles/Vol] 4.7 mmol/L Normal 3.5-5.3 [facility] Comment on above: Performed By: #### 2 185439 #### [facility] [address] [place] [address] Protein [Mass/Vol] 6.2 g/dL Normal 6.0-7.8 [facility] Comment on above: Performed By: #### 2 989913 #### [facility] [address] [place] [address] Sodium [Moles/Vol] 135 mmol/L Normal 135-145 [facility] Comment on above: Performed By: #### 2 809766 #### [facility] [address] [place] [address] Urea nitrogen [Mass/Vol] 9 mg/dL Normal 5-21 [facility] Comment on above: Performed By: #### 2 [id number] #### [facility] [address] [place] [address] Urea nitrogen/Creatinine [Mass ratio] 11 No Units Normal 10-20 [facility] Comment on above: Performed By: #### 2 512888 #### [facility] [address] [place] [address] Consent for Treatmenton 02-14 Consent for Treatment [id number] [facility] Ferritinon 03-12-2024 Ferritin [Mass/Vol] 179 ng/mL Normal 24-336 [facility] Comment on above: Performed By: #### 2 741215 #### [facility] [address] [place] [address] HEMATOLOGYOrdered By: SYSTEM SYSTEM on 03-12-2024 Acanthocytes [...] 03-12-2024 Iron [Mass/Vol] 117 microgram/dL Normal 35-153 [facility] Comment on above: Performed By: #### 2 [id number] #### [facility] [address] [place] [address] Iron Saturationon 03-12-2024 Iron binding capacity [Mass/Vol] 326 microgram/dL Normal 250-400 [facility] Comment on above: Performed By: #### 2 [id number] #### [facility] [address] [place] [address] Iron saturation [Mass fraction] 36 % Normal 20-50 [facility] Comment on above: Performed By: #### 2 [id number] #### [facility] [address] [place] [address] Transferrinon 03-12-2024 Transferrin [Mass/Vol] 233 mg/dL Normal 200-370 [facility] Comment on above: Performed By: #### 2 055440 #### [facility] [address] [place] [address] eGFRon 03-12-2024 eGFR 98 mL/min/1.73 m2 Normal >=59 [facility] Comment on above: Order Comment: Order added by Discern Expert. Performed By: #### 1 [id number] #### [facility] [address] [place] [address] Consent for Treatmenton Consent for Treatment [id number] [facility] Consent for Treatmenton 01-15 Consent for Treatment [id number] [facility] Consent for Treatmenton 01-14 Consent for Treatment [id number] [facility] Consenton 01-31-2024 Consent [id number]# 1.00TIFF [facility] Outside Diabetes Eye Examon 01-31-2024 Outside Diabetes Eye Exam [id number]#1 .00TIFF [facility] Population Healthon 01-26-20 24 Population Health Case Information Case Priority: None Programs: -- Referral Source: Heating Fixture Tender Referral Reason: Disease management Case Type: Chronic Care Management Risk Score: -- Case Status: Active (December 28, 2023) Date Assigned: December 19, 2023 Assigned By: Christian Hernandez Date Enrolled: December 28, 2023 Assigned Primary Personnel: Christian Hernandez Assigned Secondary Personnel: -- Case Physician: Ursula Love MD Ongoing AAA (abdominal aortic aneurysm) Aortic aneurysm BMI 28.0-28.9,adult BPH (benign prostatic hyperplasia) CAD in [place] artery Controlled type 2 diabetes mellitus without [...] CCM Program Enrollment Verbally agreed to receive [facility] services CCM Written Consent Written consent in progress CCM Verbal Consent By Self 12/28/23 07:00:00 Result Name Value Comment HIPPA Verified Type of Contact In person at home CM Preferred Spoken Language Surinamese CM Preferred Written Language Surinamese Preferred Communication Mode Verbal Ability to Read/Write Able to read, Able to write Preferred Salutation MrNelly Preferred Method of Contact Cell Cell Phone [phone] Best Time to Visit or Contact 7-10 am Best Day to Visit or Contact No preference Appointment Reminders Patient portal, Other secured messaging Preferred Way to Send PHI Patient portal Preferred Mailing Address [address] [place] [address], [address] Learning Style Pref Patient Verbal explanation Learning [...] Shares bed Support System Spouse/Significant other Primary Cloud Physicist of Home Medication Self Current DME at Home No Currently Receiving Skilled Services No Skilled Service Needs Anticipated No Barriers to Care None Home Barriers None Employment Status Retired Financial Issues None Sources of Income Social Security Pat (more content not included)... Normal [facility] Consent for Treatmenton 01-14 Consent for Treatment [id number]#1 .00TIFF [facility] Oncology Progress Noteon Oncology Progress Note [...] nasa (more content not included)... Normal [facility] Free K+L Lt Chains,Qn,Son Immunoglobulin light chains.kappa.free (S) [Mass/Vol] 19.0 mg/L Invalid Interpretation Code 3.3-19.4 [facility] Comment on above: Performed By: #### 2 130851, 3029976, 3327064, 8044412, 4792838, 1860970, 4396931, 75840298, 314707393 ####[facility] [address] [place] [address] Immunoglobulin light chains.kappa.free/Immu noglobulin light chains.lambda.free (S) [Mass ratio] 1.62 Invalid Interpretation Code 0.26-1.65 [facility] Comment on above: Result Comment: Perf ormed at: [facility] [address] [id number] PhD Nicole Fang Performed By: #### 2 091301, 5078225, 3885617, 4641167, 9839569, 2423088, 0259316, 87789705, 377494696 ####[facility] [address] [place] [address] Immunoglobulin light chains.lambda.free [Mass/Vol] 11.7 mg/L Invalid Interpretation Code 5.7-26.3 [facility] Comment on above: Performed By: #### 2 788707, 6923990, 7626418, 9925218, 8392220, 8422735, 0845466, 45682186, 394592889 ####[facility] [address] [place] [address] Immunofixation Serumon 01-16 IgA [Mass/Vol] 87 mg/dL Invalid Interpretation Code 61-019 [facility] Comment on above: Performed By: #### 2 252614, 6173757, 3598879, 0609841, 4771247, 8736172, 9987593, 42985179, 737272130 ####[facility] [address] [place] [address] IgG [Mass/Vol] 406 mg/dL Low 603-1613 [facility] Comment on above: Performed By: #### 2 110817, 9578618, 3185933, 1521770, 4798355, 8190137, 0466142, 31548631, 960680667 ####[facility] [address] [place] [address] IgM [Mass/Vol] 136 mg/dL Invalid Interpretation Code [facility] Comment on above: Result Comment: Perf ormed at: [facility] [address] [id number] PhD Nicole Fang Performed By: #### 2 217004, 2821251, 8880382, 4484405, 7843450, 6928489, 8910284, 04013428, 376129438 ####[facility] [address] [place] [address] Protein Fractions [Interp] Comment Invalid Interpretation Code [facility] Comment on above: Result Comment: No m onoclonality detected. Performed By: #### 2 147816, 9474593, 0739637, 5429391, 0838134, 6844927, 8599356, 27999212, 515662611 ####[facility] [address] [place] [address] SPEon 01-17-2024 Albumin [Mass/Vol] 3.6 g/dL Invalid Interpretation Code 2.9-4.4 [facility] Comment on above: Performed By: #### 2 698754, 4959828, 0716872, 0207470, 4244009, 7872555, 2892465, 61250332, 229621211 ####[facility] [address] [place] [address] Albumin/Globulin [Mass ratio] 1.8 {ratio} High 0.7-1.7 [facility] Comment on above: Performed By: #### 2 471911, 0062364, 8264125, 3030437, 8367233, 1965148, 6791215, 19085882, 008664001 ####[address] [place] [address] Alpha 1 globulin Elph [Mass/Vol] 0.2 g/dL Invalid Interpretation Code 0.0-0.4 [facility] Comment on above: Performed By: #### 2 032426, 3983089, 2924888, 1184891, 8416400, 8420712, 1447178, 05319796, 915811733 ####[address] [place] [address] Alpha 2 globulin Elph [Mass/Vol] 0.6 g/dL Invalid Interpretation Code 0.4-1.0 [facility] Comment on above: Performed By: #### 2 370743, 3655781, 5503423, 8383068, 6763668, 2585257, 7622661, 66510042, 222117963 ####[address] [address] Beta globulin Elph [Mass/Vol] 0.8 g/dL Invalid Interpretation Code 0.7-1.3 [facility] Comment on above: Performed By: #### 2 073397, 9652294, 1103822, 6398275, 9697586, 0735451, 0845065, 15889214, 871396380 ####[address] [address] Gamma globulin Elph [Mass/Vol] 0.4 g/dL Invalid Interpretation Code 0.4-1.8 [facility] Comment on above: Performed By: #### 2 270466, 9234090, 3322995, 3646463, 7008141, 1120298, 4925417, 55562295, 898923972 ####[address] [place] [address] Globulin (S) [Mass/Vol] 2.0 g/dL Low 2.2-3.9 [facility] Comment on above: Performed By: #### 2 483539, 2238184, 4473426, 6740510, 1492261, 3182236, 2002952, 62464036, 906628182 ####[facility] [address] [place] [address] Laboratory comment Harman (Report) Comment Invalid Interpretation Code [facility] Comment on above: Result Comment: Prot ein electrophoresis scan will follow via computer, mail, or lean engineer delivery. Performed By: #### 2 052008, 9054487, 8306307, 1684463, 2901895, 2800176, 6244411, 11853369, 699941555 ####[facility] [address] [place] [address] Protein [Mass/Vol] 5.6 g/dL Low 6.0-8.5 [facility] Comment on above: Performed By: #### 2 381401, 3654072, 0202292, 1929206, 6243972, 9073045, 3050830, 88622588, 198688570 ####[facility] [address] [place] [address] Protein Fractions [Interp] Comment: Invalid Interpretation Code [facility] Comment on above: Result Comment: SPE shows decreased total protein. Performed at: [address] [id number] PhD Nicole Fang Performed By: #### 2 380212, 8146840, 6974137, 4528685, 7754647, 4579385, 3673878, 01692483, 783356111 ####[facility] [address] [place] [address] Protein.monoclonal Elph [Mass/Vol] Not Observed Invalid Interpretation Code Not Observed [facility] Comment on above: Performed By: #### 2 462875, 2596367, 5369923, 0059557, 2289337, 4174600, 5936475, 57571675, 085992515 ####[facility] [address] [place] [address] CHEMISTRYOrdered By: SYSTEM SYSTEM on 01-16-2024 Cobalamin [...] for Treatmenton Consent for Treatment [id number]#[address] [facility] Ferritinon 01-16-2024 Ferritin [Mass/Vol] 8 ng/mL Low 24-336 [facility] Comment on above: Performed By: #### 2 523116, 0381961, 8491479, 7238392, 7981859, 7802826, 3589725, 93946897, 128042008 ####[facility] [address] [place] [address] Folateon 01-16-2024 Folate [Mass/Vol] 13.0 ng/mL Normal >=6.7 [facility] Comment on above: Performed By: #### 2 971276, 8938957, 6237720, 7156026, 9931590, 5408399, 1133091, 50842205, 393472137 ####[facility] [address] [place] [address] Ironon 01-16-2024 Iron [Mass/Vol] 36 microgram/dL Normal 35-153 [facility] Comment on above: Performed By: #### 2 885432, 9884258, 6123249, 6901680, 0947782, 4935744, 8802472, 55422165, 348039629 ####[facility] [address] [place] [address] Iron Saturationon 01-16-2024 Iron binding capacity [Mass/Vol] 473 microgram/dL High 250-400 [facility] Comment on above: Performed By: #### 2 391013, 2955483, 4494280, 1903494, 7790914, 7573885, 6388308, 73562863, 031691358 ####[facility] [address] [place] [address] Iron saturation [Mass fraction] 8 % Low 20-50 [facility] Comment on above: Performed By: #### 2 721235, 8370360, 6833265, 2172014, 9313265, 7883143, 8831597, 70185338, 224368163 ####[facility] [address] [place] [address] Transferrinon 01-16-2024 Transferrin [Mass/Vol] 338 mg/dL Normal 200-370 [facility] Comment on above: Performed By: #### 2 990588, 2790846, 0163929, 9839682, 1930022, 1519540, 6236824, 57467145, 067949016 ####[facility] [address] [place] [address] Vit B12on 01-16-2024 Cobalamin (Vitamin B12) [Mass/Vol] 213 pg/mL Normal 50-1500 [facility] Comment on above: Performed By: #### 2 828919, 6120660, 6608453, 7302812, 0345968, 7179875, 4541258, 23388554, 273016622 ####[facility] [address] [place] [address] 36on 01-10-2024 36 Message sent from patient to my email: Kg Mesa hope all is well, I forgot to ask if I???m 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 Some things I???ve read are telling me not to?? Marilyn, are you able to advise on this? Thanks. [facility] Physician Referralon 024 Physician Referral [id number]#1 .00TIFF Normal [facility] Office Visiton 12-29-2023 Follow-up visit [id number] Marcelle Doherty 1960 M Date Provider Department Center 12/29/2023 [facility]ILDA [facility] Family History Problem Relation Age of Onset Coronary artery disease Father Atrial fibrillation Father Heart attack Brother Family Status - Relation Status Age at Father Brother Level of Service:03765 [place] OFFICE/OUTPATIENT ESTABLISHED MOD MDM 30 MIN Normal [facility] ED Pat Eduon 12-28-2023 ED [...] these instructions at home: Medicines ? Take afvq-kli-rxpnwsr and prescription medicines only as told by [...] use any (more content not included)... 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 Source: Heating Fixture Tender Referral Reason: Disease management Case Type: Chronic Care Management Risk Score: -- Case Status: Active (December 28, 2023) Date Assigned: December 19, 2023 Assigned By: Christian Hernandez Date Enrolled: December 28, 2023 Assigned Primary Personnel: Christian Hernandez Assigned Secondary Personnel: -- Case Physician: -- Problems Ongoing AAA (abdominal aortic aneurysm) Aortic aneurysm BMI 28.0-28.9,adult BPH (benign prostatic hyperplasia) CAD in [place] artery Controlled type 2 diabetes mellitus without [...] Assessments 12/28/23 08:18:00 Result Name Value Comment [facility] Program Enrollment Verbally agreed to receive [facility] services CCM Written Consent Written consent in progress CCM Verbal Consent By Self 12/28/23 07:00:00 Result Name Value Comment HIPPA Verified Type of Contact In person at home CM Preferred Spoken Language Surinamese CM Preferred Written Language Sur[place]amese Preferred Communication Mode Verbal Ability to Read/Write Able to read, Able to write Preferred Salutation Preferred Method of Contact Cell Cell Phone [phone] Best Time to Visit or Contact 7-10 am Best Day to Visit or Contact No preference Appointment Reminders Patient portal, Other secured messaging Preferred Way to Send PHI Patient portal Preferred Mailing Address [address] [place] [address], [address] Learning Style Pref Patient Verbal explanation Learning [...] Shares bed Support System Spouse/Significant other Primary Cloud Physicist of Home Medication Self Current DME at Home No Currently Receiving Skilled Services No Skilled Service Needs Anticipated No Barriers to Care None Home Barriers None Employment Status Retired Financial Issues None Sources of Income Social Security Patient Account Ser (more content not included)... Normal [facility] Population Health Problems Ongoing AAA (abdominal aortic aneurysm) Aortic aneurysm BMI 28.0-28.9,adult BPH (benign prostatic hyperplasia) CAD in [place] artery Controlled type 2 diabetes mellitus without [...] - Comments: - - 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 Frequency Status Technical Sourcing Recruiter Review educational material - - Not done [...] - Comments: - - 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 Frequency Status Technical Sourcing Recruiter Review educational material - - Not done [...] - Comments: - - 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 Frequency Status Technical Sourcing Recruiter Review educational material - - Not done [...] - Comments: - - 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 Frequency Status Technical Sourcing Recruiter Review educational material - - Not done [...] - - Not done - - [facility]ene [facility] CT Chest, Low Dose Screening on [...] Bourne MD Transcribed by: LUDWIN Technologist: SB Normal [facility] Consent for Treatmenton 12-14 Consent for Treatment [id number]#[address] [facility] Family Medicine Office/Clini c Noteon 12-22-2023 [...] were given. Reviewed Medicare preventative services checklist. [facility] Prevention and home safety screening reviewed. Patient denies any falls in last 12 months, voices no worry about falling, exhibits no problems with sitting, standing, or ambulation. Pt voices understanding with keeping walk way area free of clutter to prevent tripping and/or falling. [place] Advance Directives reviewed, patient has at home, [...] PCP visit. Will have labs completed with [facility]. Colonoscopy up to date, due for repeat [...] with CDC recommendation that everyone born from 2151[birth year]0203 get tested for Hepatitis C. This is [...] Yea (more content not included)... Normal [facility] Comment on above: Result Comment: Elec tronically Signed By: Ursula Love MD\.br\Date and Time Signed: 12/22/23 11:50 EST\.br\Electronically Co-Signed By: Christian Hernandez.jp\Date and Time Co-Signed: 12/18/23 15:00 EST .Interpretation:on 4 HCV Ab IA Ql Comment Invalid Interpretation Code [facility] Comment on above: Result Comment: Not infected with HCV unless early or acute infection is suspected (which may be delayed in an immunocompromised individual), or other evidence exists to indicate HCV infection. Performed at: [facility] [id number] [id number] PhD Nicole Fang Performed By: #### 2 408722570, 2492955, 2510675, 2108031107, 851345759, 81352245, 2533613 ####[facility] [address] [place] [address] HCV Antibody RFX to Quant PC Kavin 12-20-2023 HCV IgG IA Ql Non-Reactive Invalid Interpretation Code Non Reactive [facility] Comment on above: Result Comment: Perf ormed at: [facility] [id number] PhD Nicole Fang Performed By: #### 2 883837846, 7553953, 9170928, 9365454119, 309044390, 71037341, 9846613 ####[facility] [address] [place] [address] Screenson 12-19-2023 Screens [id number] [facility] Ambulatory Visit Summaryon 0 12-18-2023 Ambulatory [...] 28.0-28.9,adult BPH (benign prostatic hyperplasia) CAD in [place] artery Controlled type 2 diabetes mellitus without [...] choosing us for your care. Normal [facility] CBC w/ Auto Diffon 4 Anisocytosis Ql (Bld) PRESENT Invalid Interpretation Code [facility] Comment on above: Performed By: #### 2 110423314, 8081042, 7378979, 8182437371, 862163143, 32574626, 9542638 ####[facility] [address] [place] [address] Basophils/100 WBC (Bld) 0.6 % Normal 0.0-2.0 [facility] Comment on above: Performed By: #### 2 269823590, 2801744, 7711253, 0365608506, 172947004, 97693650, 0696739 ####[address] [address] Basophils/Leukocytes Auto (Bld) [Pure # fraction] 0.0 E9/L Normal 0.0-0.2 [facility] Comment on above: Performed By: #### 2 709650472, 0210337, 3030433, 2244729540, 856303830, 17011421, 7248827 ####[address] [address] Eosinophils (Bld) [#/Vol] 0.1 E9/L Normal 0.0-0.5 [facility] Comment on above: Performed By: #### 2 398519952, 5179794, 5252809, 4972583595, 279324877, 06534840, 5536764 ####[address] [place] [address] Eosinophils/100 WBC (Bld) 2.7 % Normal 0.0-8.0 [facility] Comment on above: Performed By: #### 2 098537851, 9519756, 1317812, 6424484145, 551026157, 84522382, 0241013 ####[address] [place] [address] Erythrocyte distribution width (RBC) [Ratio] 17.2 % High 10.9-14.2 [facility] Comment on above: Performed By: #### 2 961966385, 7923192, 8654497, 3462920599, 954860740, 17898379, 7132837 ####[address] [place] 6[address]157 Hematocrit (Bld) [Volume fraction] 34.4 % Low 37.7-49.0 [facility] Comment on above: Performed By: #### 2 323917366, 5146973, 2723403, 8854883224, 394071956, 04688092, 2759165 ####[address] [address] Hemoglobin (Bld) [Mass/Vol] 10.9 g/dL Low 13.5-17.5 [facility] Comment on above: Performed By: #### 2 610803507, 8721418, 9349695, 5902794408, 442528927, 85724877, 9120388 ####[address] [address] Hypochromia Auto Ql (Bld) PRESENT Invalid Interpretation Code [facility] Comment on above: Performed By: #### 2 658749157, 8666807, 6099188, 2127752504, 636830636, 44522472, 9648637 ####[address] [address] Lymphocytes (Bld) [#/Vol] 1.3 E9/L Normal 1.0-4.0 [facility] Comment on above: Performed By: #### 2 065183471, 2504012, 9445130, 5012213921, 264983360, 47068598, 5741059 ####[address] [address] Lymphocytes/100 WBC (Bld) 25.8 % Normal 14.0-50.0 [facility] Comment on above: Performed By: #### 2 443856965, 2262073, 3674839, 1325544460, 717490729, 45355875, 8863458 ####[address] [address] MCH (RBC) [Entitic mass] 23.3 pg Low 27.0-34.0 [facility] Comment on above: Performed By: #### 2 058949008, 4201831, 2114534, 2537994185, 943850251, 58554719, 1444410 ####[address] [address] MCHC (RBC) [Mass/Vol] 31.6 g/dL Normal 31.4-36.0 [facility] Comment on above: Performed By: #### 2 385926667, 0288748, 4702348, 8526386640, 824174476, 44642748, 2422994 ####[address] [address] MCV (RBC) [Entitic vol] 73.6 fL Low 80.0-100.0 [facility] Comment on above: Performed By: #### 2 868245288, 9034317, 6613502, 6213791144, 043949359, 43590296, 7263985 ####[address] [address] Microcytes Ql (Bld) PRESENT Invalid Interpretation Code [facility] Comment on above: Performed By: #### 2 822162186, 4312151, 4795705, 2360164238, 253069379, 59765728, 1993682 ####[address] [address] Monocytes (Bld) [#/Vol] 0.4 E9/L Normal 0.2-1.0 [facility] Comment on above: Performed By: #### 2 571048974, 2577266, 2765775, 0388434883, 494697328, 03376399, 5395052 ####[facility] [address] [place] [address] Neutrophils (Bld) [#/Vol] 3.2 E9/L Normal 2.0-7.5 [facility] Comment on above: Performed By: #### 2 217613378, 1426804, 3442579, 3411276586, 291004127, 63971039, 3777525 ####[address] [place] [address] Neutrophils/100 WBC (Bld) 63.4 % Normal 36.0-75.0 [facility] Comment on above: Performed By: #### 2 795961764, 0743826, 9392531, 4075721123, 907221077, 45769389, 1663637 ####[address] [address] Ovalocytes LM Ql (Bld) PRESENT Invalid Interpretation Code [facility] Comment on above: Performed By: #### 2 918696006, 5005126, 6783705, 1839166030, 628914366, 08500350, 0521168 ####[address] [place] [address] Platelet mean volume (Bld) [Entitic vol] 10.4 fL Normal 6.4-10.8 [facility] Comment on above: Performed By: #### 2 317660404, 9067334, 3140394, 8367658418, 094909605, 19178361, 7092015 ####[address] [place] [address] Platelets (Bld) [#/Vol] 137.0 E9/L Low 150.0-500.0 [facility] Comment on above: Performed By: #### 2 707350627, 1156315, 9907469, 6273249946, 335364071, 74831083, 6365110 ####[facility] [address] [place] [address] Poikilocytosis Auto Ql (Bld) PRESENT Invalid Interpretation Code [facility] Comment on above: Performed By: #### 2 771717084, 9718853, 7443010, 0087704134, 544259468, 31341867, 6823320 ####[facility] [address] [place] [address] RBC (Bld) [#/Vol] 4.7 E12/L Normal 4.3-5.9 [facility] Comment on above: Performed By: #### 2 755308916, 3928048, 6493501, 4806921120, 207830334, 53214244, 1166725 ####[facility] [address] [place] [address] WBC corrected for nucl RBC Auto (Bld) [#/Vol] 5.0 E9/L Normal 4.0-11.0 [facility] Comment on above: Performed By: #### 2 359942818, 1297524, 6565774, 9250380487, 640489915, 69998719, 9312689 ####[facility] [address] [place] [address] CHEMISTRYOrdered By: SYSTEM SYSTEM on 12-18-2023 Albumin [...] (Bld) [Mass fraction] 6.9 % High <=5.9% [facility] ChemAutoSS CMPon 12-18-2023 Albumin [Mass/Vol] 4.4 g/dL Normal 3.3-5.0 [facility] Comment on above: Performed By: #### 2 640688891, 7025178, 5402318, 2438807588, 857830032, 56918970, 2875316 ####[address] [place] [address] Albumin/Globulin (S) [Mass conc ratio] 2.6 High 1.1-2.2 [facility] Comment on above: Performed By: #### 2 477864170, 7107838, 5795270, 7234041617, 251866943, 69217183, 9693729 ####[address] [address] ALP [Catalytic activity/Vol] 49 Int._Unit/L Normal 21-98 [facility] Comment on above: Performed By: #### 2 563701219, 9228521, 3446760, 2633495077, 705299431, 19451516, 2965031 ####[address] [address] ALT No additional P-5'-P [Catalytic activity/Vol] 20 Int._Unit/L Normal 6-46 [facility] Comment on above: Performed By: #### 2 881007752, 3211047, 2267948, 4683684436, 988598635, 87389836, 3243312 ####[address] [address] Anion gap [Moles/Vol] 13 mmol/L Normal 6-16 [facility] Comment on above: Performed By: #### 2 295747948, 7412756, 2508820, 7212533699, 810504246, 40987547, 1313365 ####[address] [address] AST [Catalytic activity/Vol] 17 Int._Unit/L Normal 5-43 [facility] Comment on above: Performed By: #### 2 347966920, 8878936, 3594791, 3346640967, 468512534, 10793137, 4635840 ####[facility] [address] [place] [address] Bilirubin [Mass/Vol] 1.7 mg/dL High 0.0-1.1 [facility] Comment on above: Performed By: #### 2 112480447, 9991734, 2946625, 8761380685, 149560487, 57892241, 8412352 ####[facility] [address] [place] [address] Calcium [Mass/Vol] 9.3 mg/dL Normal 8.9-11.1 [facility] Comment on above: Performed By: #### 2 957605088, 7312180, 3755432, 1965587833, 962297537, 04057569, 3525884 ####[facility] [address] [place] [address] Chloride [Moles/Vol] 103 mmol/L Normal 101-111 [facility] Comment on above: Performed By: #### 2 072149501, 9434917, 4308219, 7822091200, 622851279, 47782989, 3971993 ####[facility] [address] [place] [address] CO2 [Moles/Vol] 26 mmol/L Normal 21-31 [facility] Comment on above: Performed By: #### 2 805917519, 7165424, 3049762, 7224096530, 483896429, 87562225, 5590212 ####[facility] [address] [place] [address] Creatinine [Mass/Vol] 0.8 mg/dL Normal 0.5-1.3 [facility] Comment on above: Performed By: #### 2 124224946, 8547481, 9185147, 6874630978, 848811208, 30357025, 7347165 ####[facility] [facility] [address] [place] [address] Globulin (S) [Mass/Vol] 1.7 g/dL Normal 1.4-4.0 [facility] Comment on above: Performed By: #### 2 [id number], [id number], 9783315, [id number], [id number], 53719164, 2498165 ####[facility] [address] [place] [address] Glucose [Mass/Vol] 124 mg/dL Normal 55-199 [facility] Comment on above: Performed By: #### 2 [id number], 7655036, 3037787, [id number], 646174757, 67691285, 9859362 ####[facility] [address] [place] [address] Potassium [Moles/Vol] 4.0 mmol/L Normal 3.5-5.3 [facility] Comment on above: Performed By: #### 2 [id number], 7645479, 8344341, [id number], 990229767, 01765909, 1870486 ####[facility] [address] [place] [address] Protein [Mass/Vol] 6.1 g/dL Normal 6.0-7.8 [facility] Comment on above: Performed By: #### 2 [id number], 2058733, 4910338, [id number], 129607392, 78152237, 9593690 ####[facility] [address] [place] [address] Sodium [Moles/Vol] 138 mmol/L Normal 135-145 [facility] Comment on above: Performed By: #### 2 [id number], 2658227, 4700995, 8069567752, 636409695, 16829452, 0080839 ####[facility] [address] [place] [address] Urea nitrogen [Mass/Vol] 8 mg/dL Normal 5-21 [facility] Comment on above: Performed By: #### 2 [id number], 9258892, 0019447, 1302130972, 105970766, 98020011, 6706005 ####[facility] [address] [place] [address] Urea nitrogen/Creatinine [Mass ratio] 10 No Units Normal 10-20 [facility] Comment on above: Performed By: #### 2 [id number], 8551258, 6585472, 8137210884, 438816980, 94321638, 5378991 ####[facility] [address] [place] [address] HEMATOLOGYOrdered By: SYSTEM SYSTEM on 12-18-2023 Anisocytosis [...] Normal 4.0 - 11.0 E9/L Remisol Heme [id number] 12-18-2023 HbA1c (Bld) [Mass fraction] 6.9 % High <=5.9 [facility] Comment on above: Performed By: #### 2 [id number], 2690220, 4617048, [id number], 537580798, 19978818, 6315303 ####[facility] [address] [place] [address] Lipid Panelon 12-18-2023 Cholesterol [Mass/Vol] 118 mg/dL Low 120-200 [facility] Comment on above: Performed By: #### 2 [id number], 3387112, 2556665, 4263880321, 639699382, 63339045, 8523308 ####[facility] [address] [place] [address] Cholesterol in HDL [Mass/Vol] 37 mg/dL Invalid Interpretation Code [facility] Comment on above: Result Comment: '>= 60 LOW RISK' '<= 40 HIGH RISK' Performed By: #### 2 [id number], 3092155, 8873982, 4760916311, 140360525, 60918835, 5627009 ####[facility] [address] [place] [address] Cholesterol in LDL [Mass/Vol] 72 mg/dL Normal <=129 [facility] Comment on above: Performed By: #### 2 [id number], 7267679, 7013784, 5298997153, 967071109, 59647028, 6096170 ####[facility] [address] [place] [address] Cholesterol in VLDL [Mass/Vol] 22 mg/dL Normal 7-40 [facility] Comment on above: Performed By: #### 2 [id number], 8238338, 7464305, 5939779969, 988157737, 53663077, 0386936 ####[facility] [address] [place] [address] Triglyceride [Mass/Vol] 112 mg/dL Normal <=149 [facility] Comment on above: Performed By: #### 2 [id number], 9900060, 4072029, 4650777669, 712742447, 77184975, 1537477 ####[facility] [address] [place] [address] Patient Educationon 12-18-19 Patient Education Cardiovascular Atrial [...] signals of the heart. ? An ambulatory record maker to record your heart's activity for [...] breathing. (more content not included)... Normal [facility] eGFRon 12-18-2023 eGFR 98 mL/min/1.73 m2 Normal >=59 [facility] Comment on above: Order Comment: Order added by Discern Expert. Performed By: #### 2 [id number], 2493693, 6502764, [id number], 965344191, 76533892, 6037985 ####[facility] [address] [place] [id number] URINALYSISOrdered By: Isaiah Garcia on 08-04-2023 Bacteria [...] PM) Normal Negative [facility] UA Auto SS [place].plasma/[place] .RBC (Bld) [Mass ratio] 0-3 /HPF Normal [...] [facility] UA Auto SS Urobilinogen Qn (U) 0.6266812 {Denny'U}/dL Normal 0.0 - 1.0 EU/dL [facility] UA Auto SS WBC Auto Ql (U) Negative (08/04/23 2:10 PM) Normal Negative [facility] UA Auto SS WBC LM.HPF (Urine sed) [#/Area] 0-5 /HPF Normal 0-5/HPF [facility] UA Auto SS CHEMISTRYOrdered By: Julien merida on 07-04-2023 Albumin DL <= 20 mg/L (U) [Mass/Vol] microgram/mL Normal 0.0 - 19.0 mcg/mL [facility] Remisol Albumin Elph (U) [Mass fraction] mg/dL Invalid Interpretation Code [facility] Remisol Creatinine (U) [Mass/Vol] 17.7 mg/dL Invalid Interpretation Code [facility] Remisol U Prot/Creat Ratio [facility] Invalid Interpretation Code 0.00 - 200.00 [facility] Remisol CHEMISTRYOrdered By: Bobby ybarraolasami on 07-03-2023 HbA1c (Bld) [Mass fraction] 6.8 % High <=5.9% [facility] ChemAutoSS CBC AUTO DIFFon 01-04-2023 BASO # 0.1 103/ul Normal 0.0-0.1 [facility] Comment on above: Performed By: #### C BC #### [facility] [address] [place] [address] Dr. Lucia San Basophils/100 WBC (Bld) 1.0 % Normal 0.2-2.0 [facility] Comment on above: Performed By: #### C BC #### [facility] [address] [place] [address] Dr. Lucia San EO # 0.1 103/ul Normal 0.0-0.7 [facility] Comment on above: Performed By: #### C BC #### [facility] [address] [place] [address] [address] Lucia San Eosinophils/100 WBC (Bld) 2.5 % Normal 0.9-7.0 [facility] Comment on above: Performed By: #### C BC #### [facility] [address] [place] [address] Dr. Lucia San Erythrocyte distribution width (RBC) [Ratio] 17.3 % Critically high 11.0-15.0 [facility] Comment on above: Performed By: #### C BC #### [facility] [address] [place] [address] Dr. Lucia San Hematocrit (Bld) [Volume fraction] 35.2 % Critically low 42.0-54.0 [facility] Comment on above: Performed By: #### C BC #### [facility] [address] [place] [address] Dr. Lucia San Hemoglobin (Bld) [Mass/Vol] 11.3 g/dL Critically low 14.0-18.0 [facility] Comment on above: Performed By: #### C BC #### [facility] [address] [place] [address] Dr. Lucia San IG # 0.02 10e3/ul Normal 0.00-0.03 [facility] Comment on above: Performed By: #### C BC #### [facility] [address] [place] [address] Dr. Lucia San IG % 0.4 % Normal 0.0-0.5 [facility] Comment on above: Performed By: #### C BC #### [facility] [address] [place] [address] Dr. Lucia San LYMPH # 1.6 103/ul Normal 1.2-3.8 [facility] Comment on above: Performed By: #### C BC #### [facility] [address] [place] [address] Dr. Lucia San Lymphocytes/100 WBC (Bld) 30.9 % Normal 20.5-60.0 [facility] Comment on above: Performed By: #### C BC #### [facility] [address] [place] [address] Dr. Lucia San MANUAL DIFF REQ NO Normal [facility] Comment on above: Performed By: #### C BC #### [facility] [address] [place] [address] Dr. Lucia San MCH (RBC) [Entitic mass] 23.9 pg Critically low 25.9-34.0 [facility] Comment on above: Performed By: #### C BC #### [facility] [address] [address] [address] Lucia San MCHC (RBC) [Mass/Vol] 32.1 g/dL Normal 29.9-35.2 [facility] Comment on above: Performed By: #### C BC #### [facility] [address] [address] [address] Lucia San MCV (RBC) [Entitic vol] 74.6 fL Critically low 80.0-94.0 [facility] Comment on above: Performed By: #### C BC #### [facility] [address] [place] [address] Dr. Lucia San MONO # 0.5 103/ul Normal 0.3-0.8 [facility] Comment on above: Performed By: #### C BC #### [facility] [address] [place] [address] Dr. Lucia San Monocytes/100 WBC (Bld) 9.1 % Normal 1.7-12.0 [facility] Comment on above: Performed By: #### C BC #### [facility] [address] [place] [address] Dr. Lucia San NEUT # 2.9 103/ul Normal 1.4-6.5 [facility] Comment on above: Performed By: #### C BC #### [facility] [address] [place] [address] Dr. Lucia San Neutrophils/100 WBC (Bld) 56.1 % Normal 43.0-75.0 [facility] Comment on above: Performed By: #### C BC #### [facility] [address] [address] [address] Lucia San Platelet mean volume (Bld) [Entitic vol] 11.6 fL Normal 9.5-13.5 [facility] Comment on above: Performed By: #### C BC #### [facility] [address] [place] [address] [address] Lucia San PLT 172 103/ul Normal 150-450 [facility] Comment on above: Performed By: #### C BC #### [facility] [address] [place], [place] [address] Dr. Lucia San RBC 4.72 106/ul Normal 4.70-6.10 [facility] Comment on above: Performed By: #### C BC #### [facility] [address] [place], [place] [address] Dr. Lucia San WBC 5.2 103/ul Normal 4.0-11.0 [facility] Comment on above: Performed By: #### C BC #### [facility] [address] [place], [place] [address] Dr. Lucia San ECHOCARDIO M/2D COMPLETEon 0 01-04-2023 ECHOCARDIO M/2D COMPLETE Patient: MARCELLE DOHERTY Exam Date: 01/04/2023 : 1960 Gender:M Ordering : DR BLANKA ERAZO M.D. Admission #: [id number] Family : Order #: [id number] CLICK HERE TO VIEW EXAM ECHOCARDIOGRAM REPORT [...] Area (VTI): 3.28 cm2, 3.28 cm2 Deceleration Ripley: 0.48 m/s2 Pressure Half-Time: 1.33 s Peak [...] [place] M.D. on 01/04/2023 at 15:00 Normal [facility] GLYCOHEMOGLOBIN A1Con 2022 ADA RECOMMENDATION SEE BELOW Normal [facility] Comment on above: Result Comment: ADA RECOMMENDED LIMIT 4.0 - 6.0 ADA THERAPEUTIC TARGET < 7.0 ACTION SUGGESTED > 7.0 Performed By: #### A 1C #### [facility] [address] [place] [address] Dr. Lucia San HbA1c (Bld) [Mass fraction] 6.9 % Critically high 4.5-6.2 [facility] Comment on above: Performed By: #### A 1C #### [facility] [address] [place] [address] Dr. Lucia San LIPID PROFILEon 01-04-2023 CHOL-HDL RATIO NORM SEE BELOW Normal [facility] Comment on above: Result Comment: 3.3 - 4.4 LOW RISK 4.4 - 7.1 AVERAGE RISK 7.1 - 11.0 MODERATE RISK >11.0 HIGH RISK Performed By: #### L IPID #### [facility] [address] [place] [address] Dr. Lucia San Cholesterol [Mass/Vol] 140 mg/dL Normal <=200 [facility] Comment on above: Performed By: #### L IPID #### [facility] [address] [place] [address] Dr. Lucia San Cholesterol in HDL [Mass/Vol] 37 mg/dL Critically low 40-60 [facility] Comment on above: Performed By: #### L IPID #### [facility] [address] [place] [address] Dr. Lucia San Cholesterol in LDL [Mass/Vol] 80.2 mg/dL Normal [facility] Comment on above: Performed By: #### L IPID #### [facility] [address] [place] [address] [address] Lucia San Cholesterol.total/Chol esterol in HDL [Mass ratio] 3.8 {ratio} Normal [facility] Comment on above: Performed By: #### L IPID #### [facility] [address] [place] [id number] Lucia San HDL NORMAL > or = 60 mg/dl - LO W CARDIOVASCULAR RISK <40 mg/dl - HIGH CARDIOVASCULAR RISK Normal [facility] Comment on above: Performed By: #### L IPID #### [facility] [address] [place] [address] [address] Lucia San LDL CALC NORMAL SEE BELOW Normal [facility] Comment on above: Result Comment: <100 mg/dl OPTIMAL 100 - 129 mg/dl NEAR OR ABOVE OPTIMAL 130 - 159 mg/dl BORDERLINE HIGH 160 - 189 mg/dl HIGH >190 mg/dl VERY HIGH Performed By: #### L IPID #### [facility] [address] [place] [address] [address] Lucia San Triglyceride [Mass/Vol] 114 mg/dL Normal <=150 [facility] Comment on above: Performed By: #### L IPID #### [facility] [address] [place] [address] [address] Lucia aSn VLDL CALC 22.8 mg/dL Normal [facility] Comment on above: Performed By: #### L IPID #### [facility] [address] [id number] Lucia San MICROALBUMIN, RAND URon - mALB 1.5 mg/L Normal <=30.0 [facility] Comment on above: Performed By: #### M ALBR #### [facility] [address] [id number] Lucia San NM STRESS/REST MULTIon 01-04 NM STRESS/REST MULTI Patient: MARCELLE DOHERTY Exam Date: 01/04/2023 : 1960 Gender:M Ordering : DR BLANKA ERAZO M.D. Admission #: [id number] Family : Order #: [id number] CLICK HERE TO VIEW EXAM RADIOLOGY REPORT [...] LOCATION: Basal inferior. Mid-anterior. Mid-inferior. Apical inferior. [place]. SIZE: Large (5 or more segments). SEVERITY: [...] Guzman MD on 01/04/2023 at 11:17 Normal [facility] PROF 14(COMP METB)on 023 Albumin [Mass/Vol] 4.1 g/dL Normal 3.4-5.0 [facility] Comment on above: Performed By: #### C MP #### [facility] [address] [place] [address] Dr. Lucia San Albumin/Globulin [Mass ratio] 1.7 {ratio} Normal [facility] Comment on above: Performed By: #### C MP #### [facility] [address] [place] [address] Dr. Lucia San ALP [Catalytic activity/Vol] 51 U/L Normal 46-116 [facility] Comment on above: Performed By: #### C MP #### [facility] [address] [place] [address] [address] Lucia San ALT [Catalytic activity/Vol] 49 U/L Normal 16-63 [facility] Comment on above: Performed By: #### C MP #### [facility] [address] [place] [address] [address] Lucia San Anion gap [Moles/Vol] 16.6 mmol/L Normal [facility] Comment on above: Performed By: #### C MP #### [facility] [address] [address] [address] Lucia San AST [Catalytic activity/Vol] 28 U/L Normal 15-37 [facility] Comment on above: Performed By: #### C MP #### [facility] [address] [address] [address] Lucia San Bilirubin [Mass/Vol] 1.7 mg/dL Critically high 0.2-1.0 [facility] Comment on above: Performed By: #### C MP #### [facility] [address] [place] [address] Dr. Lucia San Calcium [Mass/Vol] 9.2 mg/dL Normal 8.5-10.1 [facility] Comment on above: Performed By: #### C MP #### [facility] [address] [address] [address] Lucia San Chloride [Moles/Vol] 100 mmol/L Normal 98-107 [facility] Comment on above: Performed By: #### C MP #### [facility] [address] [place] [address] [address] Lucia San CO2 [Moles/Vol] 25.9 mmol/L Normal 21.0-32.0 [facility] Comment on above: Performed By: #### C MP #### [facility] [address] [address] [address] Lucia San Creatinine [Mass/Vol] 1.03 mg/dL Normal 0.70-1.30 [facility] Comment on above: Performed By: #### C MP #### [facility] [address] [place] [address] Dr. Lucia San EGFR-AF ARGENTINE >60 Normal >=60 [facility] Comment on above: Performed By: #### C MP #### [facility] [address] [place] [address] Dr. Lucia San EGFR-NON AF ARGENTINE >60 Normal >=60 [facility] Comment on above: Performed By: #### C MP #### [facility] [address] [place] [address] Dr. Lucia San Globulin (S) [Mass/Vol] 2.4 g/dL Normal [facility] Comment on above: Performed By: #### C MP #### [facility] [address] [place] [address] Dr. Lucia San Glucose [Mass/Vol] 151 mg/dL Normal [facility] Comment on above: Performed By: #### C MP #### [facility] [address] [place] [address] Dr. Lucia San Performed By: #### A 1C #### [facility] [address] [place] [address] Dr. Lucia San Potassium [Moles/Vol] 4.5 mmol/L Normal 3.5-5.1 [facility] Comment on above: Performed By: #### C MP #### [facility] [address] [place] [address] Dr. Lucia San Protein [Mass/Vol] 6.5 g/dL Normal 6.4-8.2 [facility] Comment on above: Performed By: #### C MP #### [facility] [address] [place] [address] Dr. Lucia San Sodium [Moles/Vol] 138 mmol/L Normal 136-145 [facility] Comment on above: Performed By: #### C MP #### [facility] [address] [place] [address] Dr. Lucia San Urea nitrogen [Mass/Vol] 13.0 mg/dL Normal 7.0-18.0 [facility] Comment on above: Performed By: #### C MP #### [facility] [address] [address] [address] Lucia San Urea nitrogen/Creatinine [Mass ratio] 12.6 mg/mg Normal [facility] Comment on above: Performed By: #### C MP #### [facility] [address] [address] [address] Lucia San CNOVon 02-03-2022 CNOV Office Visit (CARDMN ) DOHERTYMARCELLE WASHINGTON ([id number]) 1960 M Date Time Provider Department 02/03/22 8:30 AM JANNET GONZALEZ During your visit today, we recorded the following information about you: Pulse Blood pressure Weight Height 60/minute 180/76 85.3 kg 1.765 m Jannet Gonzalez MD 02/03/2022 9:58 AM Signed [facility] Department of Cardiovascular Medicine SECTION OF CARDIAC PACING and ELECTROPHYSIOLOGY OUTPATIENT VISIT DATE February 03, 2022 OUTPATIENT VISIT TYPE CONSULTATION PRIMARY CARE PHYSICIAN: Mark Browning DO [facility] [place] [address] CHIEF COMPLAINT: PAF HISTORY OF PRESENT ILLNESS [...] he is in SR. He denies syncope. 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 70% ostial D1. Preserved [...] sweating-No, Frequen (more content not included)... Normal [facility] CNCOon 12-04-2021 CNCO Letter Text Normal [facility] Dermatopathologyon Dermatopathology [facility] [address] [place] [id number] DERMATOPATHOLOGY REPORT Name:LA NENA MARCELLE [facility] Rec #. [id number] Location: [facility] Date of Procedure: 10/02/2020 Race: Unknown Date Received: 10/06/2020 /Sex: 1960 (Age: 60) / M Date Reported: 10/08/2020 Other: Submitting Physician:SONIA GREEN APRN, ACCREDITATION MANAGER-C FINAL DIAGNOSIS A. SKIN, (R) NECK, BIOPSY: SQUAMOUS CELL CARCINOMA IN SITU, EXTENDING TO THE DEEP AND PERIPHERAL MARGINS IN THESE PLANES OF SECTION. B. SKIN, MID BACK, BIOPSY: NEUROFIBROMA, EXTENDING TO THE DEEP MARGIN IN THESE PLANES OF SECTION. Electronically Signed Out by TC MAZA MD. Electronically Signed Out By TC MAZA MD/BRADLEY By the signature on this report, the individual or group listed as making the Final Interpretation/Diagno sis certifies that they have reviewed this case. Clinical History: A: 0.8x0.5cm ISK vs. other. Biopsy. 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 Biopsy. Specimens Submitted As: A: SKIN, (R) NECK, BIOPSY B: SKIN, MID BACK, BIOPSY Gross Description: A: Received in formalin is a mayers piece of skin measuring [id number] in aggreg (small). The specimen is inked and embedded in toto. B: Received in formalin is a mayers piece of skin measuring [id number]. The specimen is inked and embedded in toto. ink/10/06/2020 Microscopic Description: A,B: Microscopic examination performed. Normal [facility] Comment on above: Performed By: #### D #### Dermatopathology Vital Signs Date Time Vital Sign Value Performing Clinician Facility 09-09-2024 11:18-0500 Body temperature 98.06 [degF] Ana Spencer [facility] 09-09-2024 11:18-0500 Diastolic blood pressure 87 mm[Hg] Ana Spencer [facility] 09-09-2024 11:18-0500 Heart rate 72 /min Ana Tj [facility] 09-09-2024 11:18-0500 Mean blood pressure 119 mm[Hg] Ana Spencer [facility] 09-09-2024 11:18-0500 Respiratory rate 18 /min Ana Lingke [facility] 09-09-2024 11:18-0500 SaO2% (BldA) [Mass fraction] 98 % Ana Spencer [facility] 09-09-2024 11:18-0500 Systolic blood pressure 183 mm[Hg] Ana Spencer [facility] 03-14-2024 10:16-0400 Body temperature 97.52 [degF] Ana Spencer [facility] 03-14-2024 10:16-0400 Diastolic blood pressure 85 mm[Hg] Ana Spencer [facility] 03-14-2024 10:16-0400 Heart rate 59 /min Ana Spencer [facility] 03-14-2024 10:16-0400 Mean blood pressure 116 mm[Hg] Ana Spencer [facility] 03-14-2024 10:16-0400 Respiratory rate 16 /min Ana Spencer [facility] 03-14-2024 10:16-0400 SaO2% (BldA) [Mass fraction] 99 % Ana Spencer [facility] 03-14-2024 10:16-0400 Systolic blood pressure 179 mm[Hg] Ana Hubbardboske [facility] 02-15-2024 13:10-0400 Blood Pressure Location Ana Hubbardboske [facility] 02-15-2024 13:10-0400 Body temperature 98.06 [degF] Ana Lingke [facility] 02-15-2024 13:10-0400 Diastolic blood pressure 61 mm[Hg] Ana Hubbardboske [facility] 02-15-2024 13:10-0400 Heart rate 62 /min Ana Lingke [facility] 02-15-2024 13:10-0400 Mean blood pressure 77 mm[Hg] Ana Lingke [facility] 02-15-2024 13:10-0400 Respiratory rate 16 /min Ana Lingke [facility] 02-15-2024 13:10-0400 SaO2% (BldA) [Mass fraction] 99 % Ana Lingke [facility] 02-15-2024 13:10-0400 Systolic blood pressure 108 mm[Hg] Ana Lingke [facility] 02-08-2024 13:00-0400 Blood Pressure Location Ana Hubbardboske [facility] 02-08-2024 13:00-0400 Body temperature 98.24 [degF] Ana Lingke [facility] 02-08-2024 13:00-0400 Diastolic blood pressure 82 mm[Hg] Ana Lingke [facility] 02-08-2024 13:00-0400 Heart rate 80 /min Ana Hubbardboske [facility] 02-08-2024 13:00-0400 SaO2% (BldA) [Mass fraction] 100 % Ana Hubbardboske [facility] 02-08-2024 13:00-0400 Systolic blood pressure 142 mm[Hg] Ana Hubbardboske [facility] 01-25-2024 08:58-0400 Diastolic blood pressure 82 mm[Hg] Ana Spencer [facility] 01-25-2024 08:58-0400 Heart rate 65 /min Ana Spencer [facility] 01-25-2024 08:58-0400 Mean blood pressure 118 mm[Hg] Ana Spencer [facility] 01-25-2024 08:58-0400 SaO2% (BldA) [Mass fraction] 99 % Ana Spencer [facility] 01-25-2024 08:58-0400 Systolic blood pressure 190 mm[Hg] Ana Spencer [facility] 08-16-2023 08:21-0400 Blood Pressure Location Shelley [facility] 08-16-2023 08:21-0400 Diastolic blood pressure 83 mm[Hg] Shelley Lue [facility] 08-16-2023 08:21-0400 Heart rate 69 /min Shelley L[facility] 08-16-2023 08:21-0400 Respiratory rate 16 /min Shelley L[facility] 08-16-2023 08:21-0400 Systolic blood pressure 166 mm[Hg] Shelley [facility] Encounters Encounter Date Encounter Type Care Provider Facility Start: 12-19-2024 End: 12-19-2024 ambulatory Ana Hubbardboy [facility] Start: 11-21-2024 End: 11-21-2024 ambulatory Ana Piresie Tj Facility:[facility] Start: 11-21-2024 End: 11-21-2024 Patient encounter procedure Ana Hubbardsoladick [facility] Start: 11-18-2024 End: 11-18-2024 ambulatory Leonora Camacho MD Facility:[place] Start: 11-14-2024 ambulatory [facility] Start: 11-14-2024 End: 11-14-2024 ambulatory [facility] Start: 10-24-2024 End: 10-24-2024 ambulatory Ana Hubbardsoladick Facility:[facility] Start: 10-24-2024 End: 10-24-2024 Patient encounter procedure Ana Hubbardsoladick [facility] Start: 10-01-2024 End: 10-01-2024 ambulatory [facility] Start: 09-26-2024 End: 10-07-2024 ambulatory MD Ursula Love Facility:[facility] Start: 09-26-2024 End: 09-26-2024 Patient encounter procedure Ana Spencer [facility] Start: 09-10-2024 End: 09-10-2024 ambulatory [facility] Start: 09-09-2024 End: 09-09-2024 ambulatory Ana Spencer Facility:[facility] Start: 09-09-2024 End: 09-09-2024 Patient encounter procedure Ana Hubbardsoladick [facility] Start: 09-04-2024 End: 09-04-2024 ambulatory Ana Hubbardsoladick Facility:[facility] Start: 09-04-2024 End: 09-04-2024 Patient encounter procedure Ana Hubbardsoladick [facility] Start: 08-29-2024 End: 08-29-2024 ambulatory Ana Spencer Facility:[facility] Start: 08-29-2024 End: 08-29-2024 Patient encounter procedure Ana Spencer [facility] Start: 08-01-2024 End: 08-01-2024 ambulatory Ana Spencer Facility:[facility] Start: 08-01-2024 End: 08-01-2024 Patient encounter procedure Ana Spencer [facility] Start: 08-01-2024 End: 08-01-2024 ambulatory Ursula Love Facility:[facility] Start: 07-31-2024 End: 08-08-2024 ambulatory Ursula Love Facility:[facility] Start: 07-29-2024 End: 07-29-2024 ambulatory Leonora Camacho MD Facility: [facility] Start: 07-12-2024 End: 07-12-2024 ambulatory [facility] Start: 07-04-2024 End: 07-04-2024 ambulatory Ana Spencer Facility:[facility] Start: 07-04-2024 End: 07-04-2024 Patient encounter procedure Ana Spencer [facility] Start: 06-27-2024 End: 07-10-2024 Orders Only Jannet Gonzalez MD Work Phone: Cardiology Comment on above: Atrial fibrillation, unspecified type (HCC) (Primary Dx) Start: 2024 End: 2024 ambulatory Ursula Love Facility: [facility] Start: 06-06-2024 End: 06-06-2024 ambulatory Ana Spencer Facility:[facility] Start: 06-06-2024 End: 06-06-2024 Patient encounter procedure Ana Spencer [facility] Start: 05-09-2024 End: 05-09-2024 ambulatory Ana Spencer Facility:[facility] Start: 05-09-2024 End: 05-09-2024 Patient encounter procedure Ana Spencer [facility] Start: 04-24-2024 End: 05-08-2024 ambulatory Ursula Love Facility:[facility] Start: 04-11-2024 End: 04-11-2024 ambulatory Ana Spencer Facility:[facility] Start: 04-11-2024 End: 04-11-2024 Patient encounter procedure Ana Spencer [facility] Start: 03-26-2024 End: 03-26-2024 ambulatory Ursula Love Facility:[facility] Start: 03-22-2024 End: 04-09-2024 ambulatory Ursula Love Facility:[facility] Start: 03-14-2024 End: 03-14-2024 ambulatory Ana Spencer Facility:[facility] Start: 03-14-2024 End: 03-14-2024 Patient encounter procedure Ana Spencer [facility] Start: 03-12-2024 End: 03-12-2024 ambulatory Ana Spencer Facility:[facility] Start: 03-12-2024 End: 03-12-2024 Patient encounter procedure Ana Spencer [facility] Start: 02-15-2024 End: 02-15-2024 ambulatory Ana Spencer Facility:[facility] Start: 02-15-2024 End: 02-15-2024 Patient encounter procedure Ana Spencer [facility] Start: 02-08-2024 End: 02-08-2024 ambulatory Ana Spencer Facility:[facility] Start: 02-08-2024 End: 02-08-2024 Patient encounter procedure Ana Spencer [facility] Start: 02-01-2024 End: 02-01-2024 ambulatory Ana Spencer Facility:[facility] Start: 02-01-2024 End: 02-01-2024 Patient encounter procedure Ana Spencer [facility] Start: 01-25-2024 End: 02-07-2024 ambulatory Ursula Love Facility:[facility] Start: 01-25-2024 End: 01-25-2024 Patient encounter procedure Ana Spencer [facility] Start: 01-16-2024 End: 01-16-2024 ambulatory Bharath Melton Facility:[facility] Start: 01-16-2024 End: 01-16-2024 Patient encounter procedure Bharath Melton [facility] Start: 12-29-2023 End: 12-29[facility]20[facility] Start: 12-28-2023 End: 12-28-2023 ambulatory [facility] Start: 12-27-2023 End: 12-27-2023 ambulatory Ursula Love Facility:[facility] Start: 12-27-2023 End: 12-27-2023 Patient encounter procedure Ursula Love [facility] Start: 12-19-2023 ambulatory Ursula Love Facility :[id number] Start: 12-18-2023 End: 12-18-2023 Lab Drop off Ursula Love [facility] Start: 12-18-2023 End: 12-18-2023 ambulatory Ursula Love Facility:[facility] Start: 12-18-2023 End: 12-18-2023 ambulatory Ursula Love Facility:[facility] Start: 10-04-2023 End: 10-04-2023 Patient encounter procedure Jose Luis THOMAS General Surgery Nill[facility] Start: 08-16-2023 End: 08-16-2023 Patient encounter procedure Shelley Bruce [facility] Start: 08-07-2023 End: 08-07-2023 Patient encounter procedure Ursula Love [facility] Start: 08-04-2023 End: 08-04-2023 Lab Drop off Karen Romano [facility] Start: 07-04-2023 End: 07-04-2023 Lab Drop off Ursula Love [facility] Start: 07-03-2023 End: 07-03-2023 Lab Drop off Ursula Love [facility] Start: 01-04-2023 End: 01-05-2023 ambulatory URSULA LOVE Facility: Start: 04-01-2022 End: 04-01-2022 Off-Site Ursula Love [facility] Start: 03-30-2022 End: 03-30-2022 Off-Site Ursula Love [facility] Start: 02-03-2022 Orders Only Jannet Timmons [...] 9:15 AM EST Office Visit Cardiology [address] [place] [address] Jannet Gonzalez MD [address] [place] [address] Paroxysmal atrial fibrillation (HCC) [I48.0] Cardiology Comment on above: Paroxysmal atrial fi brillation (HCC) [I48.0] Start: 12-19-2024 End: 12-19-2024 ambulatory 12/19/2024 8:30 AM EST Results Only Cardiology [address] [id number] Paroxysmal atrial fibrillation (HCC) [I48.0] Cardiology Comment on above: Paroxysmal atrial fi brillation (HCC) [I48.0] Start: 12-17-2024 ambulatory Ambulatory Facility:[facility] Start: 06-16-2024 Covid-19 Vaccine ( season) Covid-19 Vaccine ( season) [facility] Start: 06-16-2024 Influenza vaccination Influenza Vacc ine (#1) [facility] Start: 10-16-2023 Advance Directive Discussion Advance Directive Discussion [facility] Start: 2023 Pneumococcal Vaccine : 65+ (1 of 1 - PCV) Pneumococcal Vaccine: 65+ (1 of 1 - PCV) [facility] Start: 07-04-2020 DIABETES SCREEN DIABETES SCREEN [facility] Start: 07-04-2020 Diabetes Screening Diabetes Screenin g [facility] Start: 2018 RSV Vaccine (1 - 1-d ose 60+ series) RSV Vaccine (1 - 1-dose 60+ series) [facility] Start: 2013 PROSTATE CANCER SCREENING DISCUSSION PROSTATE CANCER SCREENING DISCUSSION [facility] Start: 2013 Prostate specific antigen measurement Prostate Cancer Screening Discussion [facility] Start: 2008 SHINGRIX VACCINE (1 of 2) SHINGRIX VACCINE (1 of 2) [facility] Start: 2003 COLOGUARD (FIT-DNA) COLOGUARD (FIT-D NA) [facility] Start: 2003 Colonoscopy COLONOSCOPY [facility] Start: 2003 COLORECTAL CANCER SCREENING COLORECTAL CANCER SCREENING [facility] Start: [address] COLONOGRAPHY [facility] Start: 2003 FECAL OCCULT BLOOD FECAL OCCULT BLOO D [facility] Start: 2003 Screening for malign ant neoplasm of colon [facility] Start: 2003 SIGMOIDOSCOPY SIGMOIDOSCOPY [facility] Start: 1993 Lipid panel Lipid Screening [facility] Start: 1993 LIPID SCREEN LIPID SCREEN [facility] Start: 1977 Urine microalbumin profile [facility] Start: 1976 ANNUAL PCP TEAM WIRE [employer] SARAH DISEASE VISIT ANNUAL PCP TEAM CHRONIC DISEASE VISIT [facility] Start: 1976 Anxiety Screening Anxiety Screening [facility] Start: 1976 BP CONTROLLED (<130/80) BP CONTROLLE D (<130/80) [facility] Start: 1976 Depression Screening Depression Scre ening [facility] Start: 1976 Hepatitis B surface antibody level LDL CHOLESTEROL [facility] Start: 1976 HEPATITIS C SCREENING HEPATITIS C [facility] Start: 1976 Hepatitis C screening Hepatitis C [facility] Start: 1976 HIV SCREENING HIV SCREENING [facility] Start: 1970 Adult depression screening assessment DEPRESSION SCREENING [facility] Start: 1958 Abdominal aortic aneurysm screening Abdominal Aortic Aneurysm Screening [facility] End: 02-03-2023 ECG COMPLETE ECG COMPLETE ECG Routine Persistent atrial fibrillation (HCC) 1 Occurrences starting 02/03/2022 until 02/03/2023 [facility] Work Phone: Comment on above: 1 Occurrences starti ng 02/03/2022 until 02/03/2023 End: 06-27-2025 ECG COMPLETE ECG COMPLETE ECG Routine Atrial fibrillation, unspecified type (HCC) 1 Occurrences starting 06/27/2024 until 06/27/2025 [facility] Work Phone: Comment on above: 1 Occurrences starti ng 06/27/2024 [facility] Immunization Date Immunization Notes Care Provider Fa [facility] 08-31-2021 SARS-CoV-2 (COVID-19 ) Ad26 vaccine, recombinant Ursula Ross [facility] Comment on above: Result Comment: 2021: [id number] 07-23-2021 influenza virus vaccine, unspecified formulation Ursual Love [facility] 12-23-2020 SARS-CoV-2 (COVID-19 ) Ad26 vaccine, recombinant Ursula Ross [facility] 07-30-2018 influenza virus vaccine, unspecified formulation Ursula Km [facility] NEGATED: Highlighted row has not occurred!07-03-2023 influenza virus vaccine, unspecified formulation Ursula Love [facility] Payers Date Payer Category Payer Private Health Insurance [facility] AARP SUPPLEMENT [id number] 2023-Present [phone] [address] [place] [address] Indemnity [id number] 2023 Unknown 2023 Medicare [id number] 2023 Medicare [id number] 2023 Unknown [id number] 2021 Unknown [employer]M BLUE ACCE SS PPO [id number] 2021-Present [phone] [address] [place] [address] PPO [id number]. [id number] 1959 Unknown [id number] 1958 Unknown [id number] 2.16.840.1.525093.3.579.2. 593 1958 Unknown [id number] 2.16.840.1.075953.3.579.2. 593 1958 Unknown [id number] 2.16.840.1.416340.3.579.2. 727 1958 Unknown [id number] 2.16.840.1.006495.3.579.2. 727 1958 Unknown [id number] 2.16.840.1.596609.3.579.2. 727 1958 Unknown [id number] 2.16.840.1.768622.3.579.2. 727 1958 Unknown [id number] 2.16.840.1.983983.3.579.2. 727 1958 Unknown [id number] 2.16.840.1.333500.3.579.2. 727 1958 Unknown [id number] 2.16.840.1.512707.3.579.2. 727 1958 Unknown [id number] 2.16.840.1.128803.3.579.2. 72 1958 Unknown [id number] 2.16.840.1.189403.3.579.2. 72 1958 Unknown [id number] 2.16.840.1.594113.3.579.2. 1958 Unknown [id number] 2.16.840.1.384392.3.579.2. 72 1958 Unknown [id number] 2.16.840.1.176314.3.579.2. 1958 Unknown [id number] 2.16.840.1.045694.3.579.2. 72 1958 Unknown [id number] 2.16.840.1.968964.3.579.2. 72 1958 Unknown [id number] 2.16.840.1.042240.3.579.2. 727 1958 Unknown [id number] 2.16.840.1.964454.3.579.2. 72 1958 Unknown [id number] 2.16.840.1.741952.3.579.2. 72 1958 Unknown [id number] 2.16.840.1.921549.3.579.2. 72 1958 Unknown [id number] 2.16.840.1.980613.3.579.2. 72 1958 Unknown [id number] 2.16.840.1.922284.3.579.2. 72 1958 Unknown [id number] 2.16.840.1.889929.3.579.2. 727 1958 Unknown [id number] 2.16.840.1.576429.3.579.2. 72 1958 Unknown [id number] 2.16.840.1.488322.3.579.2. 72 1958 Unknown [id number] 2.16.840.1.276943.3.579.2. 72 1958 Unknown [id number] 2.16.840.1.047555.3.579.2. 1958 Unknown [id number] 2.16.840.1.557910.3.579.2. 1958 Unknown [id number] 2.16.840.1.121478.3.579.2. 1958 Unknown [id number] 2.16.840.1.190709.3.579.2. 1958 Unknown [id number] 2.16.840.1.422055.3.579.2. 1958 Unknown [id number] 2.16.840.1.106867.3.579.2. 1958 Unknown [id number] 2.16.840.1.587779.3.579.2. 1958 Unknown [id number] 2.16.840.1.347465.3.579.2. 1958 Unknown [id number] 2.16.840.1.639101.3.579.2. 1958 Unknown [id number] 2.16.840.1.903981.3.579.2. 1958 Unknown [id number] 2.16.840.1.482284.3.579.2. 1958 Unknown [id number] 2.16.840.1.053628.3.579.2. 727 1958 Unknown [id number] 2.16.840.1.292533.3.579.2. 727 1958 Unknown [id number] 2.16.840.1.044603.3.579.2. 727 Social History Date Type Detail Facility Start: 08-25-2014 End: 09-09-2024 Tobacco smoking status NHIS Ex-smoker [facility] Comment on above: Quit in 2013 after M I quit age 53 (39 pack years) Start: [birth year]-25-1957 End: 08-09-2014 History of tobacco use Current smoker [facility] Start: 10-25-1955 End: 08-09-2014 History of tobacco use Cigarette Smoker [facility] Start: 08-25-2014 End: 09-23-2020 Cigarettes smoked current (pack per day) - Reported 0.5 [facility] Start: 08-25-2014 Tobacco use and exposure Smokeless tobacco non-user [facility] Start: 02-03-2022 Alcohol intake Current drinke r of alcohol (finding) [facility] Start: 1960 Sex Assigned At Not on file [facility] Start: 01-24-2022 End: 02-03-2022 Exposure to SARS-CoV-2 (event) Not sure [facility] Tobacco smoking status No Smokin g Status Entered [facility] Start: 09-23-2020 End: 02-03-2022 Sex Assigned At Male [facility] Start: 04-01-2022 Tobacco smoking status Never s moked tobacco (finding) [facility] Tobacco smoking status Never [facility] Comment on above: Quit in 2013 after M I quit age 53 (39 pack years) Medical Equipment Procedure Code Equipment Code Equipment Origin al Text Equipment Identifier Dates Lancets, See Instructions, EAMayte, to check BS once daily E11.9, Supply Start: 2024 Lancets, See Instructions, 100 lancet(s), 0, Lancets, to check BS once daily E11.9, [id number], Supply, 179, cm, 03/26/24 10:53:00 EDT, [...] Strips, to check BS once daily E11.9, [id number], Supply, 179, cm, 03/26/24 10:53:00 EDT, Height/Length Dosing, 86, kg, 03/26/24 10:53:00 EDT, Weight Dosing Start: 2024 One Touch Ultra 2 Test Strips, See Instructions, 100 strip(s), 0, One Touch Ultra 2 Glucometer Test Strips, to check BS once daily E11.9, [id number], Supply, 179, cm, 03/26/24 10:53:00 EDT, Height/Length Dosing, 86, kg, 03/26/24 10:53:00 EDT, Weight Dosing Start: 2024 One Touch Ultra 2 Test Strips, See Instructions, 100 strip(s), 0, One Touch Ultra 2 Glucometer Test Strips, to check BS once daily E11.9, [id number], Supply, 179, cm, 03/26/24 10:53:00 EDT, Height/Length Dosing, 86, kg, 03/26/24 10:53:00 EDT, Weight Dosing Start: 2024 One Touch Ultra 2 Test Strips, See Instructions, 100 strip(s), 0, One Touch Ultra 2 Glucometer Test Strips, to check BS once daily E11.9, [id number], Supply, 179, cm, 03/26/24 10:53:00 EDT, Height/Length Dosing, 86, kg, 03/26/24 10:53:00 EDT, Weight Dosing Start: 2024 One Touch Ultra 2 Test Strips, See Instructions, 100 strip(s), 0, One Touch Ultra 2 Glucometer Test Strips, to check BS once daily E11.9, [id number], Supply, 179, cm, 03/26/24 10:53:00 EDT, Height/Length Dosing, 86, kg, 03/26/24 10:53:00 EDT, Weight Dosing Start: 2024 lancets, See Instructions, lancet(s), use lancet to monitor BS daily- E11.9, Supply Start: 10-17-2024 lancets, See Instructions, 100 lancet(s), 1, use lancet to monitor BS once daily- E11.9, [id number], Supply, 179, cm, 09/09/24 11:22:00 EST, Height/Length Dosing, 79.8, kg, 09/09/24 11:22:00 EST, Weight Dosing Start: 10-17-2024 One Touch Ultra 2 Test Strips, See Instructions, 100 strip(s), 0, One Touch Ultra 2 Glucometer Test Strips, to check BS once daily E11.9, [id number], Supply, 179, cm, 09/09/24 11:22:00 EST, Height/Length Dosing, 79.8, kg, 09/09/24 11:22:00 EST, Weight Dosing Start: 10-17-2024 lancets, See Instructions, lancet(s), use lancet to monitor BS daily- E11.9, Supply Start: 10-17-2024 lancets, See Instructions, 100 lancet(s), 1, use lancet to monitor BS once daily- E11.9, [id number], Supply, 179, cm, 09/09/24 11:22:00 EST, Height/Length Dosing, 79.8, kg, 09/09/24 11:22:00 EST, Weight Dosing Start: 10-17-2024 One Touch Ultra 2 Test Strips, See Instructions, 100 strip(s), 0, One Touch Ultra 2 Glucometer Test Strips, to check BS once daily E11.9, [id number], Supply, 179, cm, 09/09/24 11:22:00 EST, Height/Length Dosing, 79.8, kg, 09/09/24 11:22:00 EST, Weight Dosing Start: 10-17-2024 Goals Date Patient Goal Desired Activity /State 12-28-2023 Functional Status Date Assessment Result Facility 08-16-2023 Functional Status N/A [facility] 04-01-2022 Functional Status Telehealth Patient [facility] [place] Clinical Notes 02-03-2022 to 11-14-2024 RadiologyRadiologyRadiologyRadiologyRadiologyRadiologyLaboratoryRadiologyLaborat oryRadiologyLaboratoryRadiologyLaboratoryRadiologyRadiologyLaboratoryRadiologyLa boratoryRadiologyLaboratoryRadiology Note Date & Type Note Facility 11-14-2024 Note Patient: Marcelle washington Procedure Summary Date: 11/14/24 Room / Location: [facility] CUT OFF [facility] / [facility] VASCULAR LAB (Cath) Anesthesia Start: 828 Anesthesia Stop: 1117 Procedure: Ablation a-fib paroxysmal Diagnosis: Paroxysmal atrial fibrillation (CMS/HCC) (Paroxysmal atrial fibrillation (CMS/HCC) [I48.0]) Providers: Ulises Eldridge MD Responsible Provider: Luisa Allison MD Anesthesia Type: general ASA Status: 3 Anesthesia Type: general Vitals Value Taken Time BP 125/62 11/14/24 1231 Temp 36.1 ???C (97 ???F) 11/14/24 1116 Pulse 63 11/14/24 1242 Resp 14 11/14/24 1242 SpO2 98 % 11/14/24 1242 Vitals shown include unfiled device data. Anesthesia Post Evaluation Patient location during evaluation: PACU Patient participation: complete - patient participated Level of consciousness: awake and alert Pain management: adequate Multimodal analgesia pain management approach Airway patency: patent Two or more strategies used to mitigate risk of obstructive sleep apnea Cardiovascular status: hemodynamically stable Respiratory status: acceptable, room air, spontaneous ventilation and nonlabored ventilation Hydration status: euvolemic Patient is hemodynamically stable and is able to be discharged from PACU per anesthesia protocol. There were no known notable events for this encounter. [facility] 11-14-2024 Note ATRIAL FIBRILLATION ABLATION PROCEDURE NOTE DATE OF PROCEDURE: 11/14/2024 PERFORMING PHYSICIAN: Dr. Ulises Eldridge INSTRUCTIONAL SPECIALIST:JOCELYN CONSENT: Patient NAME OF THE PROCEDURE: Pulmonary [...] with past medical history of CAD with STEM ROLLER OPERATOR of the RCA and a 70% ostial D1 lesion, diabetes mellitus type 2, hypertension AAA has been previously seen by Dr. PHAN. There is a history of prior A-fib ablation (RF-PVI) done at [facility] on 07/10/2017 by and was noted to have atrial flutter subsequently which was converted by cardioversion to sinus rhythm on 07/28/2017. Since then he has been following up with Jannet Gonzalez at [facility]. He is currently maintained on metoprolol [...] and is quite symptomatic with this. His [id number] score is 3 with risk factors of [...] ablation was perf (more content not included)... [facility] 11-14-2024 Note Arterial Line: Date/Time: 11/14/2024 7:40 AM An arterial line was placed in the pre-op for the following indication(s): continuous blood pressure monitoring and blood sampling needed. A 20 gauge (size), 1 and 3/4 inch (length), Arrow (type) catheter was placed, Seldinger technique used , into the Right radial artery, secured by Tegaderm (and biodesc). Events: patient tolerated procedure well with no complications. Medications Administered lidocaine (XYLOCAINE) 1 % SubQ - infiltration 5 mL - 11/14/2024 7:40:00 AM Staffing Performed: resident/CHUCK WAGON COOK/CAA Anesthesiologist: Luisa Allison MD Resident/CHUCK WAGON COOK: Shayy Galvin MD Performed by: Shayy Galvin MD Authorized by: Luisa Allison MD [facility] 11-14-2024 Note Airway Date/Time: 11/14/2024 8:34 AM Urgency: elective General Information and Staff Patient location during procedure: OR Anesthesiologist: Luisa Allison MD Resident/CHUCK WAGON COOK/CAA: Shayy Galvin MD Performed: resident/CHUCK WAGON COOK/CAA Indications and Patient Condition Indications for airway management: anesthesia Spontaneous Ventilation: absent Sedation level: deep Preoxygenated: yes Mask difficulty assessment: 1 - vent by mask Final Airway Details Final airway type: endotracheal airway Successful airway: ETT Cuffed: yes Successful intubation technique: direct laryngoscopy Facilitating devices/methods: intubating stylet and anterior pressure/BURP Endotracheal tube insertion site: oral Blade: Kay Blade size: #4 ETT size (mm): 7.5 Cormack-Lehane Classification: grade III - view of epiglottis only Placement verified by: capnometry Measured from: lips ETT to lips (cm): 22 Number of attempts at approach: 1 Number of other approaches attempted: [address] [facility] 11-14-2024 Note Patient: Marcelle washington Procedure Information Date/Time: 11/14/24 0800 Procedure: Ablation a-fib paroxysmal Location: [facility] CUT OFF [facility] 1 EP / [facility] VASCULAR LAB (Cath) Providers: Ulises Eldridge MD Relevant Problems Cardio Tolerates >4 METS without chest pain or SOB. However, experiences chest pain with afib episodes or extreme cold weather. EF 60%. Ascending aortic aneurysm measuring 4.1 cm. Abdominal aortic aneurysm 3.5 cm CAD with STEM ROLLER OPERATOR of RCA, well collateralized. OM1 with 70% stenosis. 2x previous stents in 2013. (+) AAA (abdominal aortic aneurysm) (CMS/HCC) (+) Aneurysm of ascending aorta without rupture (CMS/HCC) (+) Aortic aneurysm (CMS/HCC) (+) Atrial fibrillation (CMS/HCC) (+) CAD (coronary artery disease) (+) Coronary arteriosclerosis (+) External bleeding hemorrhoids (+) Hypertension (+) Longstanding persistent atrial fibrillation (CMS/HCC) Endo Fasting glucose within normal limits. (+) Controlled type 2 diabetes mellitus without complication, without long-term current use of insulin (CMS/HCC) GI GERD Controlled (+) GERD without esophagitis /Renal (+) Kidney stone Other (+) Spleen enlarged Clinical information reviewed: Tobacco Allergies Meds Med Hx Surg Hx Fam Hx Soc Hx Physical Exam Airway Mallampati: II TM distance: >3 FB Neck ROM: full Cardiovascular - normal exam Dental - normal exam Pulmonary - normal exam Abdominal - normal exam Anesthesia Plan ASA 3 general (GETA with standard ASA monitors. A line. 2x PIV. Central femoral line to be placed my surgeon. Esophageal cooling device.) The patient is not a current smoker. (Prior smoker of 50+ years) Patient did not smoke on day of procedure. Education provided regarding risk of obstructive sleep apnea. intravenous induction Postoperative administration of opioids is intended. Trial extubation is planned. Anesthetic plan and risks discussed with patient. Use of blood products discussed with patient who consented to blood products. Plan discussed with attending. Additional Equipment Requests [facility] 10-01-2024 Note [place] Electrophysiology Consult Note [place] Cardiology [facility] Reason for visit: Afib 10/01/24 Patient here for H&P prior to afib ablation scheduled on 10/03/2024. Denies chest pain, SOB, and bleeding on Eliquis. Prior HPI: Marcelle Doherty is a 64 y.o. 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 PHAN. There is a history of prior A-fib ablation done at [facility] on 07/10/2017 by and was noted to have atrial flutter subsequently which was converted by cardioversion to sinus rhythm on 07/28/2017. Since then he has been following up with Jannet Gonzalez at [facility]. He is currently maintained on metoprolol [...] and is quite symptomatic with this. His [id number] score is 3 with risk factors of [...] on file Intimate Partner Violence: Unknown (12/07/2023) [place] Safety & Environment Fear of Current or [...] for back pain (more content not included)... [facility] 09-10-2024 Note [facility] 09-10-2024 Note [place] Electrophysiology Consult Note [place] Cardiology [facility] Reason for visit: Afib Prior HPI: Marcelle Doherty is a 64 y.o. 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 PHAN. There is a history of prior A-fib ablation done at [facility] on 07/10/2017 by and was noted to have atrial flutter subsequently which was converted by cardioversion to sinus rhythm on 07/28/2017. Since then he has been following up with Jannet Gonzalez at [facility]. He is currently maintained on metoprolol [...] and is quite symptomatic with this. His [id number] score is 3 with risk factors of [...] on file Intimate Partner Violence: Unknown (12/07/2023) [place] Safety & Environment Fear of Current or [...] no dry eyes, (more content not included)... [facility] 09-09-2024 Note Oncology Progress No te Chief [...] a colonoscopy done in Sep 2023 at [facility] after positive Cologuard test. This showed a [...] Contact Information Tj NATHAN-PEMA, Ana Rivas, ONC [facility] [address] [place] [phone]- [phone] Additional Instructions: continue b12 injections monthly cbc, cmp, iron (more content not included)... [facility] 07-12-2024 Note [place] Cardiology - [facility] Subjective Marcelle Doherty is a 64 [...] of an abnormal stress test that showed STEM ROLLER OPERATOR of the RCA with filling via left to right collaterals. He also had a 70% stenosis in a diagonal branch (the prior report mentions that it is not amenable to intervention). At that time left-ventricular gram showed normal left ventricular ejection fraction at 60%. 2. Paroxysmal atrial fibrillation, status post ablation in [address] [facility]. He also had prior cardioversion. He [...] and time. Psychiat (more content not included)... [facility] 03-20-2024 Hospital Discharge instructions Follow Up Care 03/20/2024 09:48:36 With:Tj BURTON, Ana Rivas, ONC Address: [address] [address] [phone] When: Unknown Comments:continue b12 injections monthlycbc, cmp, iron studies in 6mofollow-up in 6mo [facility] 01-25-2024 Hospital Discharge instructions Follow Up Care 01/25/2024 12:17:38 With:Tj BURTON, Ana Rivas, ONC Address: [address] [address]- [phone] When: Unknown Comments:cbc, cmp, iron studies in 3mo and 6mofollow-up in 6mo with ACCREDITATION MANAGER [facility] 12-29-2023 Note LDL > 70 therefore c ontinue lipitor 80 mg and will add zetia 10 mg daily Repeat lipid level before next appt in about 3-[address] [facility] 12-29-2023 Note Hypertension is typi jimmie stable with review of his home b/p log. Definitely has white coat syndrome Continue norvasc, clonidine, lisinopril and toprol [facility] 12-29-2023 Note Coronary artery dise ase is stable Continue GDMT- ASA, lipitor, imdur, toprol, and ranexa continue risk factor modifications- heart healthy diet, regular exercise as tolerated and continue all medications. [facility] 12-29-2023 Note Rate stable with top rol Anticoagulation with eliquis and denied any bleeding tendencies. [facility] 12-29-2023 Note Order ABD Aorta US i n 6 months to re-evalulate infrarenal AAA. [facility] 12-29-2023 Hospital Discharge instructions Follow Up Care 12/29/2023 11:16:26 With:Tj BURTON, Ana Rivas, ONC Address: [address] [address] [phone] When: Unknown Comments:IV Injectafer x2B12 injections weekly x4, then monthlycbc, cmp, iron studies in 8wksfollow-up in 8wks with ACCREDITATION MANAGER [facility] 12-29-2023 Note [facility] CARDIOLOGY PROGR [...] of an abnormal stress test that showed STEM ROLLER OPERATOR of the RCA with filling via left to right collaterals. He also had a 70% stenosis in a diagonal branch (the prior report mentions that it is not amenable to intervention). At that time left-ventricular gram showed normal left ventricular ejection fraction at 60%. 2. Paroxysmal atrial fibrillation, status post ablation in [address] [facility]. He also had prior cardioversion. He [...] episodes of atrial fibrillation. He has a [employer] machine that he uses to transmit [...] 2 seconds. Neurol (more content not included)... [facility] 12-29-2023 Note Patient here for [...] All other systems reviewed and are negative. [facility] 12-29-2023 Note HTN management with goal b/p < 130/80 Monitor b/p at home Routine monitoring- will repeat Echocardiogram in 6 months with f/u with Dr Erazo. D/W pt that he is to call 911 for sharp, tearing chest pain or back pain, call office for b/p consistently > 130/80 and he voiced understanding [facility] 08-16-2023 Hospital Discharge instructions Patient Education 08/16/2023 [...] include: ?8 oz (237 mL) of milk, drvcmod-kinddmbihhet-kwwpy milk, and calcium-fortifiedfruit juice. Calcium-fortified means that [...] ?Spinach (cooked), rhubarb, beets, sweet potatoes, and Qatari chard. ?Peanuts. ?Potato chips, belizean fries, and baked potatoes with skin on. ?Nuts and nut products. ?Chocolate. If you regularly take a diuretic medicine, make sure to eat at least 1 or 2 servings of fruits or vegetables that are high in potassium each day. These include: ?Avocado. ?Banana. ?[place], prune, carrot, or tomato juice. ?Baked potato. [...] magnesium, fish oil, or vitamin B6. Take wqvj-tez-wjxgzan and prescription medicines only as told by [...] Casseroles. Pizza. Lasagna. Frozen meals. Potato chips. Portuguese fries. The items listed above may not [...] provider. Document Revised: 06/13/2022 Document Reviewed: 06/13/2022 [employer] Patient Education 2022 [employer]. [facility] 08/08/2023 13:37:21 With:Teo NIELSON, SHERRY Nicole, URO Address: When: Unknown Comments:PRN [facility] 01-04-2023 Note CARDIAC STRESS TEST Requesting Physician: [...] and reported myocardial perfusion scan findings. [facility] 04-01-2022 Hospital Discharge instructions Patient Education 04/01/2022 [...] quitting, ask your health care provider. Take sieh-ieq-qljoihg and prescription medicines only as told by [...] 10/07/2014 Document Revised: 05/27/2019 Document Reviewed: 05/03/2019 [employer] Patient Education 2020 [employer]. 04/01/2022 13:38:40 Hyperglycemia Hyperglycemia Hyperglycemia occurs when [...] or polycystic ovarian syndrome (PCOS). Being of Citizen Of [place] Citizen, -Citizen Of [place], /, or / descent. What are the [...] these instructions at home: General instructions Take mdro-myc-wqnolzw and prescription medicines only as told by [...] 03/28/2002 Document Revised: 06/19/2017 Document Reviewed: 06/19/2017 [employer] Patient Education 2020 [employer]. 04/01/2022 13:38:33 Atrial Fibrillation Atrial Fibrillation Atrial [...] may be diagnosed with: Electrocardiogram (ECG). Ambulatory record maker. This device records your heartbeats for [...] 10/02/2006 Document Revised: 11/22/2018 Document Reviewed: 11/23/2018 [employer] Patient Education 2020 [employer]. 04/01/2022 13:38:29 Pinched Nerve Pinched Nerve A [...] work. Follow these instructions at home: Take odhg-lcb-phfegij and prescription medicines only as told by [...] leg, or the back or neck. Take ifhc-odi-ztuxlut and prescription medicines only as told by [...] 09/22/2003 Document Revised: 10/19/2018 Document Reviewed: 10/16/2018 [employer] Patient Education 2020 [employer]. [facility] [place] 02-03-2022 Note HNO ID: [id number] Author: Jannet Gonzalez MD Service: ? Author Type: Physician Type: Progress Notes Filed: 02/03/2022 9:58 AM Note Text: [facility] Department of Cardiovascular Medicine SECTION OF CARDIAC PACING and ELECTROPHYSIOLOGY OUTPATIENT VISIT DATE February 03, 2022 OUTPATIENT VISIT TYPE CONSULTATION PRIMARY CARE PHYSICIAN: Mark Browning DO [address] [place] [address] CHIEF COMPLAINT: PAF HISTORY OF PRESENT ILLNESS [...] he is in SR. He denies syncope. [id number] 3 (HTN, CAD, DM) tolerating Xarelto PAST MEDICAL HISTORY Diagnosis Date - Atrial fibrillation (HCC) 2013 - CAD (coronary artery disease) 09/02/2014 - Diabetes mellitus (HCC) - Dyslipidemia - Hypertension - Metabolic syndrome PAST SURGICAL HISTORY Procedure Laterality Date - AFIB PVI W/COMPL EP STUDY 07/10/2017 - CARDIAC CATH 09/02/2014 STEM ROLLER OPERATOR of proximal RCA. 70% ostial D1. Preserved [...] patient General: L (more content not included)... [facility] Evaluation + Plan note No data available for this section [facility] [place] Evaluation + Plan note Future Appointments Appointment Date:01/03/2024 08:00:00 AM Scheduled Provider: [facility] Type:FM Medicare Wellness Welcome Appointment Date:01/03/2024 08:40:00 AM Scheduled Provider:Ursula Love MD [facility] Type:FM Open Diagnostic Tests PendingPSA Free & Total 07/03/23Microalbumin Level Urine 07/03/23U Protein/Creat Ratio 07/03/23 [facility] Evaluation + Plan note Future Appointments Appointment Date:01/03/2024 08:00:00 AM Scheduled Provider: [facility] Type:FM Medicare Wellness Welcome Appointment Date:01/03/2024 08:40:00 AM Scheduled Provider:Ursula Love MD Location:[facility] Appointment Type:[facility] Evaluation + Plan note Future Appointments Appointment Date:08/29/2023 02:20:00 PM Scheduled Provider:Jose Luis THOMAS MD [facility] Type: Appointment Date:01/03/2024 08:00:00 AM Scheduled Provider: [facility] Type:FM Medicare Wellness Welcome Appointment Date:01/03/2024 08:40:00 AM Scheduled Provider:Ursula Love MD Location:[facility] Appointment Type:FM Open Diagnostic Tests PendingUrine Culture 08/04/23 Future Scheduled TestsCT Abdomen/Pelvis w/o Contrast 08/02/23 [facility] Evaluation + Plan note Future Appointments Appointment Date:08/29/2023 02:20:00 PM Scheduled Provider:Jose Luis THOMAS MD [facility] Type: 30 Appointment Date:01/03/2024 08:00:00 AM Scheduled Provider: [facility] App[facility] Type:FM Medicare Wellness Welcome Appointment Date:01/03/2024 08:40:00 AM Scheduled Provider:Ursula Love MD [facility] Type:[facility] Evaluation + Plan note Future Appointments Appointment Date:08/29/2023 02:20:00 PM Scheduled Provider:Jose Luis THOMAS MD Location:[facility] Appointment Type: Appointment Date:01/03/2024 08:00:00 AM Scheduled Provider: Location:[facility] Appointment Type: Medicare Wellness Welcome Appointment Date:01/03/2024 08:40:00 AM Scheduled Provider:Ursula Love MD Location:[facility] Appointment Type: Open Future Scheduled TestsUS Aorta 08/08/24 [facility] Evaluation + Plan note Future Appointments Appointment Date:01/03/2024 08:00:00 AM Scheduled Provider: Location:[facility] Appointment Type:FM Medicare Wellness Welcome Appointment Date:01/03/2024 08:40:00 AM Scheduled Provider:Ursula Love MD Location:[facility] Appointment Type: Open Future Scheduled TestsUS Aorta 08/08/24 [facility] [place] Evaluation + Plan note Future Appointments Appointment Date:12/17/2024 08:00:00 AM Scheduled Provider: Location:[facility] Appointment Type:FM Medicare Wellness Subsequent Diagnostic Tests PendingHCV Antibody RFX to Quant PCR 12/18/23 Future Scheduled TestsCT Chest, Low Dose Screening 12/18/23US Aorta 08/08/24 [facility] Evaluation + Plan note Future Appointments Appointment Date:03/25/2024 10:45:00 AM Scheduled Provider:Ursula Love MD Location:[facility] Appointment Type: Open Appointment Date:12/17/2024 08:00:00 AM Scheduled Provider: Location:[facility] Appointment Type:FM Medicare Wellness Subsequent Future Scheduled TestsUS Aorta 08/08/24 [facility] Evaluation + Plan note Future Appointments Appointment Date:01/25/2024 09:00:00 AM Scheduled Provider:Ana Kumar Location:.ONCOLOGY Appointment Type:ONC Office Visit [facility] () Appointment Date:03/25/2024 10:45:00 AM Scheduled Provider:Ursula Love MD Location:[facility] Appointment Type: Open Appointment Date:12/17/2024 08:00:00 AM Scheduled Provider: Location:[facility] Appointment Type: Medicare Wellness Subsequent Diagnostic Tests PendingImmunofixation Serum 01/16/24Free K+L Lt Chains,Qn,S 01/16/24Protein Electrophoresis 01/16/24 Future Scheduled TestsUS Aorta 08/08/24 [facility] Evaluation + Plan note Future Appointments Appointment Date:02/01/2024 02:30:00 PM Scheduled Provider: [facility] Type:ONC Injection (FT) Appointment Date:02/08/2024 02:30:00 PM Scheduled Provider: Location:.ONCOLOGY Appointment Type:ONC Injection (FT) Appointment Date:02/15/2024 02:00:00 PM Scheduled Provider: Location:.ONCOLOGY Appointment Type:ONC Injection (FT) Appointment Date:03/14/2024 10:15:00 AM Scheduled Provider:Ana Kumar Location:.ONCOLOGY Appointment Type:ONC Office Visit 30 (FT) Appointment Date:03/14/2024 10:45:00 AM Scheduled Provider: [facility] App[facility] Type:ONC Injection (FT) Appointment Date:03/25/2024 10:45:00 AM Scheduled Provider:Ursula Love MD Location:[facility] Appointment Type: Open Appointment Date:12/17/2024 08:00:00 AM Scheduled Provider: Location:[facility] Appointment Type:FM Medicare Wellness Subsequent Future Scheduled TestsCBC w/ Auto Diff 03/21/24Comprehensive Metabolic Panel 03/21/24Ferritin 03/21/24Iron Level 03/21/24Iron Percent Saturation 03/21/24Transferrin 03/21/24US Aorta 08/08/24 [facility] Evaluation + Plan note Future Appointments Appointment Date:02/08/2024 01:30:00 PM Scheduled Provider: [facility] App[facility] Type:ONC Injectafer (FT) Appointment Date:02/08/2024 02:30:00 PM Scheduled Provider: [facility] Type:ONC Injection (FT) Appointment Date:02/15/2024 01:00:00 PM Scheduled Provider: Location:[facility] Appointment Type:ONC Injectafer (FT) Appointment Date:02/15/2024 02:00:00 PM Scheduled Provider: Location:[facility] Appointment Type:ONC Injection (FT) Appointment Date:03/14/2024 10:15:00 AM Scheduled Provider:Ana Kumar Location:.ONCOLOGY Appointment Type:ONC Office Visit 30 (FT) Appointment Date:03/14/2024 10:45:00 AM Scheduled Provider: Location:[facility] Appointment Type:ONC Injection (FT) Appointment Date:03/25/2024 10:45:00 AM Scheduled Provider:Ursula Love MD Location:[facility] Appointment Type: Open Appointment Date:04/11/2024 [...] (FT) Appointment Date:12/17/2024 08:00:00 AM Scheduled Provider: Location:[facility] Appointment Type:FM Medicare Wellness Subsequent [...] 03/21/24Iron Percent Saturation 03/21/24Transferrin 03/21/24US Aorta 08/08/24 [facility] Evaluation + Plan note Future Appointments Appointment Date:02/15/2024 01:00:00 PM Scheduled Provider: Location:.ONCOLOGY Appointment Type:ONC Injectafer (FT) Appointment Date:02/15/2024 02:00:00 PM Scheduled Provider: Location:.ONCOLOGY Appointment Type:ONC Injection (FT) Appointment Date:03/14/2024 10:15:00 AM Scheduled Provider:Ana Kumar Location:.ONCOLOGY Appointment Type:ONC Office Visit 30 (FT) Appointment Date:03/14/2024 10:45:00 AM Scheduled Provider: Location:.ONCOL[facility] Appointment Type:ONC Injection (FT) Appointment Date:03/25/2024 10:45:00 AM Scheduled Provider:[facility] Open Appointment Date:04/11/2024 02:00:00 [...] (FT) Appointment Date:12/17/2024 08:00:00 AM Scheduled Provider: Location:[facility] Appointment Type: Medicare Wellness Subsequent [...] 03/21/24Iron Percent Saturation 03/21/24Transferrin 03/21/24US Aorta 08/08/24 [facility] Evaluation + Plan note Future Appointments Appointment Date:03/14/2024 10:15:00 AM Scheduled Provider:Ana Kumar Location:.ONCOLOGY Appointment Type:ONC Office Visit 30 (FT) Appointment Date:03/14/2024 10:45:00 AM Scheduled Provider: Location:.ONCOL[facility]Y Appointment Type:ONC Injection (FT) Appointment Date:03/25/2024 10:45:00 AM Scheduled Provider:Ursula Love MD Location:[facility] Appointment Type: Open Appointment Date:04/11/2024 [...] (FT) Appointment Date:12/17/2024 08:00:00 AM Scheduled Provider: Location:[facility] Appointment Type:FM Medicare Wellness Subsequent [...] 03/11/24Iron Percent Saturation 03/11/24Transferrin 03/11/24US Aorta 08/08/24 [facility] Evaluation + Plan note Future Appointments Appointment Date:03/14/2024 10:15:00 AM Scheduled Provider:Ana Kumar Location:.ONCOLOGY Appointment Type:ONC Office Visit 30 (FT) Appointment Date:03/14/2024 10:45:00 AM Scheduled Provider: Location:.ONCOLOGY Appointment Type:ONC Injection (FT) Appointment Date:03/26/2024 10:45:00 AM Scheduled Provider:Ursula Love MD Location:[facility] Appointment Type:FM Open Appointment Date:04/11/2024 [...] (FT) Appointment Date:12/17/2024 08:00:00 AM Scheduled Provider: Location:[facility] Appointment Type: Medicare Wellness Subsequent Appointment Date:12/19/2024 02:15:00 PM Scheduled Provider: Location:.ONCOL[facility]Y Appointment Type:ONC Injection (FT) Appointment Date:01/16/2025 02:05:00 PM Scheduled Provider: Location:.ONCOLOGY Appointment Type:ONC Injection (FT) Appointment Date:02/13/2025 02:15:00 PM Scheduled Provider: Location:[facility] Appointment Type:ONC Injection (FT) Appointment Date:03/13/2025 02:15:00 PM Scheduled Provider: Location:[facility] Appointment Type:ONC Injection (FT) Future Scheduled TestsUS Aorta 08/08/24 [facility] Evaluation + Plan note Future Appointments Appointment Date:03/26/2024 10:45:00 AM Scheduled Provider:Ursula Love [facility]:FM Open Appointment Date:04/11/2024 02:00:00 [...] (FT) Appointment Date:12/17/2024 08:00:00 AM Scheduled Provider: Location:[facility] Appointment Type: Medicare Wellness Subsequent [...] Percent Saturation 09/07/24Transferrin 06/07/24Transferrin 09/07/24US Aorta 08/08/24 [facility] Evaluation + Plan note Future [...] (FT) Appointment Date:12/17/2024 08:00:00 AM Scheduled Provider: Location:[facility] Appointment Type:FM Medicare Wellness Subsequent [...] Percent Saturation 09/07/24Transferrin 06/07/24Transferrin 09/07/24US Aorta 08/08/24 [facility] Evaluation + Plan note Future [...] (FT) Appointment Date:12/17/2024 08:00:00 AM Scheduled Provider: Location:[facility] Appointment Type: Medicare Wellness Subsequent Appointment Date:12/19/2024 02:15:00 PM Scheduled Provider: Location:.ONCOLOGY Appointment Type:ONC Injection (FT) Appointment Date:01/16/2025 02:05:00 PM Scheduled Provider: Location:.ONCOLOGY Appointment Type:ONC Injection (FT) Appointment Date:02/13/2025 02:15:00 PM Scheduled Provider: Location:.ONCOLOGY Appointment Type:ONC Injection (FT) Appointment Date:03/13/2025 02:15:00 PM Scheduled Provider: [facility] App[facility] Type:ONC Injection (FT) Future Scheduled TestsCBC w/ Auto Diff 06/07/24CBC w/ Auto Diff 09/07/24Comprehensive Metabolic Panel 06/07/24Comprehensive Metabolic Panel 09/07/24Ferritin 06/07/24Ferritin 09/07/24Iron Level 06/07/24Iron Level 09/07/24Iron Percent Saturation 06/07/24Iron Percent Saturation 09/07/24Transferrin 06/07/24Transferrin 09/07/24US Aorta 08/08/24 [facility] Evaluation + Plan note Future Appointments Appointment Date:07/04/2024 02:00:00 PM Scheduled Provider: [facility] App[facility] Type:ONC Injection (FT) Appointment Date:08/01/2024 02:00:00 PM Scheduled Provider: [facility] App[facility] Type:ONC Injection (FT) Appointment Date:08/29/2024 [...] (FT) Appointment Date:12/17/2024 08:00:00 AM Scheduled Provider: Location:[facility] Appointment Type: Medicare Wellness Subsequent [...] Percent Saturation 09/07/24Transferrin 06/07/24Transferrin 09/07/24US Aorta 08/08/24 [facility] Evaluation + Plan note Future [...] (FT) Appointment Date:12/17/2024 08:00:00 AM Scheduled Provider: Location:[facility] Appointment Type:FM Medicare Wellness Subsequent Appointment Date:12/19/2024 02:15:00 PM Scheduled Provider: [facility] Appoint[facility] Type:ONC Injection (FT) Appointment Date:01/16/2025 [...] Percent Saturation 09/07/24Transferrin 06/07/24Transferrin 09/07/24US Aorta 08/08/24 [facility] Evaluation + Plan note Future [...] (FT) Appointment Date:12/17/2024 08:00:00 AM Scheduled Provider: Location:[facility] Appointment Type: Medicare Wellness Subsequent Appointment Date:12/19/2024 02:15:00 PM Scheduled Provider: [facility] App[facility]ment Type:ONC Injection (FT) Appointment Date:01/16/2025 02:05:00 PM Scheduled Provider: [facility] Appointment Type:ONC Injection (FT) Appointment Date:01/30/2025 09:15:00 AM Scheduled Provider:Ursula Love MD Location:[facility] Appointment Type: Open Appointment Date:02/13/2025 02:15:00 PM Scheduled Provider: Location:.ONCOLOGY Appointment Type:ONC Injection (FT) Appointment Date:03/13/2025 02:15:00 PM Scheduled Provider: [facility] Appointment Type:ONC Injection (FT) Future Scheduled TestsCBC w/ Auto Diff 06/07/24CBC w/ Auto Diff 09/07/24Comprehensive Metabolic Panel 06/07/24Comprehensive Metabolic Panel 09/07/24Ferritin 06/07/24Ferritin 09/07/24Iron Level 06/07/24Iron Level 09/07/24Iron Percent Saturation 06/07/24Iron Percent Saturation 09/07/24Transferrin 06/07/24Transferrin 09/07/24US Aorta 08/08/24 [facility] Evaluation + Plan note Future Appointments Appointment Date:09/09/2024 11:00:00 AM Scheduled Provider:Ana Kumar [facility] Appointment Type:ONC Office Visit 30 (FT) Appointment Date:09/26/2024 02:00:00 PM Scheduled Provider: Location:.ONCOLOGY Appointment Type:ONC Injection (FT) Appointment Date:10/24/2024 02:15:00 PM Scheduled Provider: Location:.ONCOLOGY Appointment Type:ONC Injection (FT) Appointment Date:11/21/2024 02:15:00 PM Scheduled Provider: Location:.ONCOLOGY Appointment Type:ONC Injection (FT) Appointment Date:12/17/2024 08:00:00 AM Scheduled Provider: Location:[facility] Appointment Type: Medicare Wellness Subsequent Appointment Date:12/19/2024 02:15:00 PM Scheduled Provider: Location:.ONCOLOGY Appointment Type:ONC Injection (FT) Appointment Date:01/16/2025 02:05:00 PM Scheduled Provider: Location:.ONCOLOGY Appointment Type:ONC Injection (FT) Appointment Date:01/30/2025 09:15:00 AM Scheduled Provider:Ursula Love MD Location:[facility] Appointment Type:FM Open Appointment Date:02/13/2025 02:15:00 PM Scheduled Provider: [facility] Appointment Type:ONC Injection (FT) Appointment Date:03/13/2025 02:15:00 PM Scheduled Provider: Location:.ONCOLOGY Appointment Type:ONC Injection (FT) Future Scheduled TestsCBC w/ Auto Diff 06/07/24CBC w/ Auto Diff 09/07/24Comprehensive Metabolic Panel 06/07/24Comprehensive Metabolic Panel 09/07/24Ferritin 06/07/24Ferritin 09/07/24Iron Level 06/07/24Iron Level 09/07/24Iron Percent Saturation 06/07/24Iron Percent Saturation 09/07/24Transferrin 06/07/24Transferrin 09/07/24US Aorta 08/08/24 [facility] Evaluation + Plan note Future Appointments Appointment Date:09/09/2024 11:00:00 AM Scheduled Provider:Ana Kumar Location:.ONCOLOGY Appointment Type:ONC Office Visit 30 (FT) Appointment Date:09/26/2024 02:00:00 PM Scheduled Provider: Location:.ONCOLOGY Appointment Type:ONC Injection (FT) Appointment Date:10/24/2024 02:15:00 PM Scheduled Provider: Location:.ONCOLOGY Appointment Type:ONC Injection (FT) Appointment Date:11/21/2024 02:15:00 PM Scheduled Provider: Location:.ONCOLOGY Appointment Type:ONC Injection (FT) Appointment Date:12/17/2024 08:00:00 AM Scheduled Provider: Location:[facility] Appointment Type:FM Medicare Wellness Subsequent Appointment Date:12/19/2024 02:15:00 PM Scheduled Provider: Location:.ONCOLOGY Appointment Type:ONC Injection (FT) Appointment Date:01/16/2025 02:05:00 PM Scheduled Provider: Location:.ONCOLOGY Appointment Type:ONC Injection (FT) Appointment Date:01/30/2025 09:15:00 AM Scheduled Provider:Ursula Love MD Location:[facility] Appointment Type: Open Appointment Date:02/13/2025 02:15:00 PM Scheduled Provider: Location:.ONCOLOGY Appointment Type:ONC Injection (FT) Appointment Date:03/13/2025 02:15:00 PM Scheduled Provider: Location:.ONCOLOGY Appointment Type:ONC Injection (FT) Future Scheduled TestsCBC w/ Auto Diff 06/07/24Comprehensive Metabolic Panel 06/07/24Ferritin 06/07/24Iron Level 06/07/24Iron Percent Saturation 06/07/24Transferrin 06/07/24US Aorta 08/08/24 [facility] Evaluation + Plan note Future Appointments Appointment Date:09/26/2024 02:00:00 PM Scheduled Provider: Location:.ONCOLOGY Appointment Type:ONC Injection (FT) Appointment Date:10/24/2024 02:15:00 PM Scheduled Provider: Location:.ONCOLOGY Appointment Type:ONC Injection (FT) Appointment Date:11/21/2024 02:15:00 PM Scheduled Provider: Location:.ONCOLOGY Appointment Type:ONC Injection (FT) Appointment Date:12/17/2024 08:00:00 AM Scheduled Provider: Location:[facility] Appointment Type: Medicare Wellness Subsequent Appointment Date:12/19/2024 02:15:00 PM Scheduled Provider: Location:.ONCOLOGY Appointment Type:ONC Injection (FT) Appointment Date:01/16/2025 02:05:00 PM Scheduled Provider: Location:.ONCOLOGY Appointment Type:ONC Injection (FT) Appointment Date:01/30/2025 09:15:00 AM Scheduled Provider:Ursula Love MD [facility]: Open Appointment Date:02/13/2025 02:00:00 PM [...] Percent Saturation 03/09/25Transferrin 06/07/24Transferrin 03/09/25US Aorta 08/08/24 [facility] Evaluation + Plan note Future Appointments Appointment Date:10/23/2024 02:30:00 PM Scheduled Provider: Location:.ONCOLOGY Appointment Type:ONC Injection (FT) Appointment Date:11/21/2024 02:15:00 PM Scheduled Provider: Location:.ONCOLOGY Appointment Type:ONC Injection (FT) Appointment Date:12/17/2024 08:00:00 AM Scheduled Provider: Location:[facility] Appointment Type: Medicare Wellness Subsequent Appointment Date:12/19/2024 02:15:00 PM Scheduled Provider: Location:.ONCOLOGY Appointment Type:ONC Injection (FT) Appointment Date:01/16/2025 02:05:00 PM Scheduled Provider: Location:.ONCOLOGY Appointment Type:ONC Injection (FT) Appointment Date:01/30/2025 09:15:00 AM Scheduled Provider:Ursula Love MD Location:[facility] Appointment Type:FM Open Appointment Date:02/13/2025 02:00:00 PM [...] Percent Saturation 03/09/25Transferrin 06/07/24Transferrin 03/09/25US Aorta 08/08/24 [facility] Evaluation + Plan note Future Appointments Appointment Date:11/21/2024 02:15:00 PM Scheduled Provider: Location:.ONCOLOGY Appointment Type:ONC Injection (FT) Appointment Date:12/17/2024 08:00:00 AM Scheduled Provider: Location:[facility] Appointment Type: Medicare Wellness Subsequent Appointment Date:12/19/2024 02:15:00 PM Scheduled Provider: Location:.ONCOLOGY Appointment Type:ONC Injection (FT) Appointment Date:01/16/2025 02:05:00 PM Scheduled Provider: [facility] Appointment Type:ONC Injection (FT) Appointment Date:01/30/2025 09:15:00 AM Scheduled Provider:Ursula Love MD Location:[facility] Appointment Type: Open Appointment Date:02/13/2025 [...] Percent Saturation 03/09/25Transferrin 06/07/24Transferrin 03/09/25US Aorta 08/08/24 [facility] Evaluation + Plan note Future Appointments Appointment Date:12/17/2024 08:00:00 AM Scheduled Provider: Location:[facility] Appointment Type:FM Medicare Wellness Subsequent Appointment Date:12/19/2024 02:15:00 PM Scheduled Provider: Location:.ONCOLOGY Appointment Type:ONC Injection (FT) Appointment Date:01/16/2025 02:05:00 PM Scheduled Provider: Location:.ONCOLOGY Appointment Type:ONC Injection (FT) Appointment Date:01/30/2025 09:15:00 AM Scheduled Provider:Ursula Love MD Location:[facility] Appointment Type:FM Open Appointment Date:02/13/2025 02:00:00 PM [...] Percent Saturation 03/09/25Transferrin 06/07/24Transferrin 03/09/25US Aorta 08/08/24 [facility] Evaluation note Diagnosis Persistent atrial fibrillation (HCC)- Primary Atrial fibrillation documented in this encounter [facility] [place] [facility] Diagnosis Atrial fibrillation, unspecified type (HCC)- Primary documented in this encounter [facility] Discharge instructions No data available for this section [facility] [place] Progress note No data available for this section [facility] [place] Reason for referral (narrative)* Outpatient Procedure (Routine) - Authorized Specialty Diagnoses / Procedures Referred By Contac t Referred To Contact [facility] Diagnoses Persistent atrial fibrillation (HCC) Procedures ECG COMPLETE ECG ROUTINE ECG W/LEAST 12 LDS W/I&R Jannet Gonzalez MD [address] [place] [address] [address] Referral ID Status Reason Start Date Expiration Date Visits Requested Visits Authorized [id number] Authorized Auto-Generat ed Referral 02/03/2022 02/03/2023 1 1 [facility] (n[facility]ative)* Outpatient Procedure (Routine) - Authorized Specialty Diagnoses / Procedures Referred By Contac t Referred To Contact 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 DATE CREATED AUTHOR AUTHOR'S ORGANIZ ATION 02/05/2022 [facility] DATE CREATED AUTHOR AUTHOR'S ORGANIZ ATION 01/17/2023 [facility] DATE CREATED AUTHOR AUTHOR'S ORGANIZ ATION 03/12/2024 [facility] DATE CREATED AUTHOR AUTHOR'S ORGANIZ ATION 03/13/2024 [facility] DATE CREATED AUTHOR AUTHOR'S ORGANIZ ATION 09/07/2024 [facility] DATE CREATED AUTHOR AUTHOR'S ORGANIZ ATION 09/11/2024 [facility] DATE CREATED AUTHOR AUTHOR'S ORGANIZ ATION 10/04/2024 [facility] DATE CREATED AUTHOR AUTHOR'S ORGANIZ ATION 11/22/2024 [facility] DATE CREATED AUTHOR AUTHOR'S ORGANIZ ATION 11/24/2024 [facility] DATE CREATED AUTHOR AUTHOR'S ORGANIZ ATION 12/21/2024 [facility] Source Comments (unrecognize d section and content) In the event this informatio n is protected by the Federal Confidentiality of Alcohol and Drug Abuse Patient Records regulations: The Federal rules restrict any use of the information to criminally investigate or prosecute any alcohol or drug abuse patient.[facility] the event this information is protected by the Federal Confidentiality of Alcohol and Drug Abuse Patient Records regulations: The Federal rules restrict any use of the information to criminally investigate or prosecute any alcohol or drug abuse patient.[facility] Care Teams (unrecognized sec tion and content) Director Surface Transportation Relationship Specialty Start Date End Date Mark Browning PCP - General Family Practice 08/11/14 Jannet Gonzalez MD [address] [place] [address] Primary Staff Physician Cardiology 02/03/22 Director Surface Transportation Relationship Specialty Start Date End Date Mark [...] BE BASED ON THE PRIMARY CLINICAL RECORDS. [employer] [facility]. provides no warranty or guarantee of the accuracy or completeness of information in this document.
--- NOTE | 2024-12-25 08:13 | P.CN_ITS ---
Consult Note: HPI Data of Consult Patient: known to practice within the last 3 years Requesting Physician: Love Snow NP Primary Care Provider: URSULA LOVE Consult Narrative Reason for consult: chronic hip pain Narrative: Donny Doherty a pleasant 64 year old male presents for evaluation of chronic bilateral hip pain. failed previous intra-articular hip injections. has failed to benefit from 6 weeks of PT/provider guided HEP, head, ice, tylenol, cannot take NSAIDs as he is on eliquis. Recently underwent bilateral SIJ injection with 90% improvement for 3 weeks, now reporting >80% improvement in the right and >50% improvement in the left. Pain today /0 increasing with sleep and activity. USHA 10%. cc:: CC: Love Snow NP Review of Systems ROS Status of ROS 10 or more systems reviewed and unremark able except as noted in history and below Musculoskeletal Reports: joint pain; Denies: back pain PFSH [facility] Medical History (Updated 07/18/24 @ 08:56 by Love Snow NP) Arthritis ?M19.90 - Unspecified osteoarthritis, unspecified site (ICD-10) Vitamin B12 deficiency (dietary) anemia ?D51.8 - Other vitamin B12 deficiency anemias (ICD-10) Iron deficiency anemia ?D50.9 - Iron deficiency anemia, unspecified (ICD-10) Tear of distal tendon of biceps ?S46.219A - Strain of muscle, fascia and tendon of other parts of biceps, unspecified arm, initial encounter (ICD-10) History of heart attack ?I25.2 - Old myocardial infarction (ICD-10) Hypertension ?I10 - Essential (primary) hypertension (ICD-10) Positive colorectal cancer screening using Cologuard test ?R19.5 - Other fecal abnormalities (ICD-10) Hyperlipidemia ?E78.5 - Hyperlipidemia, unspecified (ICD-10) Atrial fibrillation ?I48.91 - Unspecified atrial fibrillation (ICD-10) Kidney stone ?N20.0 - Calculus of kidney (ICD-10) GERD (gastroesophageal reflux disease) ?K21.9 - Gastro-esophageal reflux disease without esophagitis (ICD-10) External bleeding hemorrhoids ?K64.4 - Residual hemorrhoidal skin tags (ICD-10) Dysuria ?R30.0 - Dysuria (ICD-10) Type 2 diabetes mellitus ?E11.9 - Type 2 diabetes mellitus without complications (ICD-10) CAD (coronary artery disease) ?I25.10 - Atherosclerotic heart disease of [place] coronary artery without angina pectoris (ICD-10) Aortic aneurysm ?I71.9 - Aortic aneurysm of unspecified site, without rupture (ICD-10) Surgical History History of tonsillectomy ?Z90.89 - Acquired absence of other organs (ICD-10) H/O repair of rotator cuff ?Z98.890 - Other specified postprocedural states (ICD-10) H/O cardiac catheterization ?Z98.890 - Other specified postprocedural states (ICD-10) H/O cardiac radiofrequency ablation ?Z98.890 - Other specified postprocedural states (ICD-10) Tear of biceps tendon ?S46.219A - Strain of muscle, fascia and tendon of other parts of biceps, unspecified arm, initial encounter (ICD-10) Family History Other Family history of myocardial infarction Heart failure Social History Within the past year, how often did you have a drink containing alcohol: 4 or more times a week Within the past year, how many standard drinks containing alcohol did you have on a typical day: 1 or 2 Within the past year, how often did you have six or more drinks on one occasion: never Total score: 0 Score interpretation: Questions 2 and 3 are 0. It can be assumed that the patient's drinking is below the recommended limits. However, please confirm the accuracy of the patient's alcohol intake over the last few months. 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 [employer] Known occupational exposures/hazards: No Highest level of school completed/degree received: high school graduate Meds Home Medications and Allergies Home Medications ?Medication ?Instructions ?Recorded ?Confirmed ?Type amlodipine 5 mg tablet 5 mg PO DAILY 09/11/23 11/18/24 History atorvastatin 80 mg tablet 80 mg PO DAILY 09/11/23 11/18/24 History clonidine 0.1 mg PO BID 09/11/23 11/18/24 History diltiazem HCl 30 mg PO DAILY PRN atrial 09/11/23 11/18/24 History fibrillation isosorbide mononitrate 120 mg 120 mg PO QAM 09/11/23 11/18/24 History tablet,extended release 24 hr lisinopril 20 mg tablet 20 mg PO DAILY 09/11/23 11/18/24 History metformin 500 mg tablet 1,000 mg PO BID 09/11/23 11/18/24 History metoprolol succinate 100 mg 200 mg PO DAILY 09/11/23 11/18/24 History tablet,extended release 24 hr (Toprol XL) omeprazole 20 mg capsule,delayed 20 mg PO DAILY 09/11/23 11/18/24 History release ranolazine 500 mg tablet,extended 500 mg PO BID 09/11/23 11/18/24 History release,12 hr apixaban 5 mg tablet (Eliquis) 5 mg PO BID 04/16/24 11/18/24 History ezetimibe 10 mg tablet 10 mg PO DAILY 04/16/24 11/18/24 History hydrocodone 5 mg-acetaminophen 325 1 tab PO BID PRN pain #3 tabs 07/18/24 11/18/24 Rx mg tablet Allergies Allergy/AdvReac Type Severity Reaction Status Date / Time Penicillins AdvReac Mild Rash Verified 11/18/24 09:01 Exam Constitutional Documenting provider has reviewed patient's vital signs: yes Common normals: no apparent distress, oriented x3, healthy appearing, alert and well nourished General appearance: cooperative [facility] Common normals: normocephalic, hearing grossly normal bilaterally and moist oral mucous membranes Head and scalp: normocephalic Eye Common normals: PERRL Pupil: PERRL Neck & C-Spine Common normals: full ROM General: normal visual inspection Chest Common normals: inspection of chest normal Respiratory Common normals: normal respiratory effort, no retractions and no use of accessory muscles Back & Pelvis Lumbar spine/lower back: lumbar ROM normal and straight leg raise negative bilaterally; no pain with ROM, no lumbar spinal tenderness, no paraspinal muscle tenderness and no paraspinal muscle spasm Sacroiliac joints: SI joint(s) abnormal Other: mildly positive on left, negative right shelby(patricks), gaenslens, thigh thrust, compression test no tenderness to bilateral GTB negative internal/external rotation of bilateral hips mild tenderness over left middle cluneal nerve Extremity Common normals: normal to inspection and full ROM Right lower extremity: no findings for hip joint Left lower extremity: no findings for hip joint Neuro Common normals: oriented x3, CN's II-XII intact bilaterally, moves all extremities, no focal motor deficits, no sensory deficits noted and deep tendon reflexes 2+ bilaterally Sensorium/orientation: alert Motor exam: strength 5/5 throughout and no movement abnormalities noted Psych Common normals: mental status grossly normal, thought process normal, cooperative, affect normal, speech normal and activity/motor behavior normal Speech: normal speech Thought process: normal thought process Results Imaging lumbar mri: Attestation: I have reviewed the pertinent imaging results. Radiologist's impression: 12-L1: No significant disc/facet abnormality, spinal stenosis, or foraminal stenosis. L1-L2: Early degenerative disc disease is present without focal protrusion or neural impingement. L2-L3: Early degenerative disc disease is present without focal protrusion or neural impingement. L3-L4: Mild diffuse disc bulging without significant loss of disc height. Minimal central canal and foraminal narrowing. L4-L5: Early DJD. Mild degenerative facet arthropathy. L5-S1: Moderate right, mild left foramen narrowing. Mild diffuse disc bulging without disc height reduction or significant disc desiccation. Mild degenerative facet arthropathy. Additional Findings Additional findings: If on a controlled substance or opioids, I have checked an [place] report on this patient and there are no aberrancies noted in the prescribing history.??If on a controlled substance or opioid a drug screen was completed and reviewed within the last year, and if there has not been a drug screen completed we ordered one today to monitor higher risk, state monitored pain medication use. As part of providing excellent, safe, comprehensive care, the following was completed at our patient's visit: 1. A medication reconciliation and review to ensure accurate knowledge of current/active medications, including asking our patients to inform us about any [id number] medications or herbal remedies/nutritional supplements/alternative remedies. 2. A review to specifically ensure our patients have had annual screening for screening for depression, screening for tobacco use, and screening for unhealthy alcohol use. For concerning screenings had a discussion with the patient, provided patient education, and recommended follow-up with primary care provider when appropriate. If patient noted with a risk of falling, they received education on strength, gait, and balance training to prevent future risk of falling. Portions of this note may have been carried over from the previous visit and updated as appropriate. Please note this office utilizes paper charting in addition to the electronic medical record. A list of current medications, vitals, and PMH is available there as the clinical staff outside of myself do not have access to [facility] charting during the clinic day operations. As part of providing quality comprehensive care the current medications, vitals, and PMH were reviewed in the paper chart. Assessment and Plan Assessment and Plan (1) Sacroiliac joint dysfunction: Assessment and Plan: >50% improvement in pain and functional ability (2) Sacroiliitis: Plan continue HEP as tolerated continue otc tylenol, avoid nsaids with eliquis f/u PRN
== END 2024-12-25 08:00 | disposition home or self-care (01) ==
PROVIDERS: PCP Family Medicine; Visit Provider Nurse Practitioner
DX: M53.3 Sacrococcygeal disorders, not elsewhere classified (principal); M46.1 Sacroiliitis, not elsewhere classified
CPT/HCPCS: G0463

== ENCOUNTER 2025-07-18 13:08 | Outpatient (OUT) | payer MEDICARE, SELFPAY ==
--- OUTSIDE RECORDS SUMMARY | 2025-07-18 13:15 | XMS_ITS | CCD ---
Author Organization [facility] Care Team Providers Care Physical Education Department Chair Name Role Phone Michael Green Primary Care Provider [phone] Jannet Gonzalez MD Unavailable Ursula Love Primary Care Physician URSULA LOVE Admitting Unavailable URSULA LOVE Attending Unavailable URSULA LOVE Primary Care Unavailable URSULA LOVE Consulting Unavailable BAO, DR MOSCOSO Admitting Unavailable BAO, DR MOSCOSO Attending Unavailable URSULA LOVE Primary Care Unavailable WEST, DR JANNET Parry Consulting Unavailable BAO, DR MOSCOSO Consulting Unavailable URSULA LOVE Consulting Unavailable Ursula Love Primary Care Physician [phone] Michael Green DO Primary Care Provider Jannet Gonzalez MD Unavailable Doug NIELSON, Leonora Raphael Attending Unavailable Doug NIELSON, Leonora Raphael Attending Unavailable MD Ursula Love Attending Unavailable MD Ursula Love Attending Unavailable MD Ursula Love Attending Unavailable MD Ursula Love Attending Unavailable Ana Spencer Attending Unavailable Ana Spencer Attending Unavailable Ana Spencer Attending Unavailable Ana Spencer Admitting Unavailable Ana Spencer Attending Unavailable Ana pSencer Evelyn Admitting Unavailable Ana Spencer Evelyn Attending Unavailable Ana Spencer Attending Unavailable Ana Spencer Attending Unavailable Ana Spencer Attending Unavailable Ana Spencer Referring Unavailable Ana Spencer Attending Unavailable MD Ursula Love Attending Unavailable MD Ursula Love Attending Unavailable MD Ursula Love Attending Unavailable Ana Spencer Attending Unavailable Ursula Love Attending Unavailable Ursula Love Attending Unavailable Ursula Love Attending Unavailable Ursula Love Attending Unavailable Ursula Love Attending Unavailable Ursula Love. Attending Unavailable Demboske, Ana Rivas Attending Unavailable Demboske, Ana Rivas Attending Unavailable Anuradhake, Ana Rivas Attending Unavailable Ursula Love Admitting Unavailable Ursula Love Attending Unavailable Demboske, Ana Rivas Admitting Unavailable Demboske, Ana Rivas Attending Unavailable Demboy, Ana Rivas Attending Unavailable Ursula Love MD Primary Care Provider [phone] Ursula Love MD Primary Care Provider ULISES ELDRIDGE Admitting Unavailable ULISES ELDRIDGE Attending Unavailable ULISES ELDRIDGE Referring Unavailable YVES DEVLIN Attending Unavailable BLANKA ERAZO Attending Unavailable ULISES ELDRIDGE Attending Unavailable ULISES ELDRIDGE Attending Unavailable YVES DEVLIN Attending Unavailable ULISES ELDRIDGE Referring Unavailable Ursula Love MD Primary Care Provider SONIA BAUTISTA Attending Unavailable SONIA BAUTISTA Attending Unavailable HUMERA SYED Admitting Unavailable HUMERA SYED Attending Unavailable HUMERA SYED Referring Unavailable URSULA LOVE Primary Care Unavailable HUMERA SYED Attending Unavailable MICHAEL GREEN Primary Care Unavailab le JODEE, ADAM Attending Unavailable URSULA LOVE Primary Care Unavailable URSULA LOVE Primary Care Unavailable HUMERA SYED Referring Unavailable URSULA LOVE Primary Care Unavailable JODEE, ADAM Admitting Unavailable JODEE, ADAM Attending Unavailable JODEE, ADAM Referring Unavailable URSULA LOVE E Primary Care Unavailable Ursula Love Attending Unavailable Ursula Love Admitting Unavailable Ursula Love Attending Unavailable Juan Antonio, MOBILE HEAVY EQUIPMENT OPERATOR Karen L Attending Unavailable Juan Antonio, MOBILE HEAVY EQUIPMENT OPERATOR Karen L Attending Unavailable Juan Antonio, MOBILE HEAVY EQUIPMENT OPERATOR Karen L Attending Unavailable Demboske, Ana Rivas Attending Unavailable Allergies Allergy Classification Reported Allergen(s) Allergy Type Date of Onset Reaction(s) Facility (20 sources) Penicillins; 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: [penicillins] Propensity to adverse reactions to drug 11-10-201 4 Hives, Weal (disorder) [facility] (1 source) Penicillins Drug allergy (disorder) 4 [facility] (1 source) Penicillins Propensity to adverse reactions to drug 4 [facility] (10 sources) Penicillin; 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: [penicillins] Drug Allergy 4 Weal (disorder), [facility] [place] (4 sources) No Known Medication Allergies; 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: [No Known Medication Allergies] Propensity to adverse reactions (disorder) [facility] Repository (4 sources) Penicillins Propensity to adverse reactions to drug 4 [facility] Medications Current Medications Medication Drug Class(es) Dates Sig (Normalized) Sig (Original) acetaminophen 325 mg / HYDROcodone bitartrate 5 mg oral tablet (5 sources) Opioid Agonist Start: 07-18-2024 take 1 tablet by mouth every twenty-four hours as needed HYDROcodone-acet aminophen ([place]) 5-325 MG tablet Take 1 tablet by mouth Daily as needed 07/18/2024 Active amLODIPine 5 mg oral tablet (20 sources) Dihydropyridine Calcium Channel Chip Start: 04-01-2022 amLODIPine (Norvasc) 5 MG tablet Take 5 mg by mouth 10/17/2024 Active Comment on above: amlodipine 5 mg tabl et TAKE ONE TABLET BY MOUTH DAILY apixaban 5 mg oral tablet (20 sources) Factor Xa Inhibitor Start: 11-20-2023 apixaban (ELIQUIS) 5 mg tab(s) Take 5 mg by mouth. 11/20/2023 Active aspirin 81 mg oral tablet (20 sources) Platelet Aggregation Inhibitor, Nonsteroidal Anti-inflammatory Drug Start: 08-29-2014 take 81 mg by mouth once daily aspirin 81 mg, Oral, Daily, Refills(s) 0 Start Date: 08/29/14 Status: Ordered Repeat number: 1 Start: 08-29-2014 take 325 mg by mouth once sonya y aspirin 325 mg, Oral, Daily, Refills(s) 0 Start Date: 08/29/14 Status: Ordered atorvastatin 80 mg oral tablet (20 sources) HMG-CoA Reductase Inhibitor Start: 12-19-2022 take 1 tablet by mouth at bedtime atorvastatin (Lipitor) 80 MG tablet Take 80 mg by mouth at bedtime 10/17/2024 Active Comment on above: atorvastatin 80 mg t ablet baclofen 10 mg oral tablet (6 sources) gamma-Aminobutyric Acid-ergic Agonist Start: 07-11-2024 take 1 tablet by mouth twice daily as needed baclofen (Lioresal) 10 MG tablet Take 10 mg by mouth 2 (two) times a day as needed 07/11/2024 Active Start: 04-01-2022 End: 05-01-2022 take 1 tablet by mouth three times daily baclofen 5 mg oral tablet 5 mg = 1 tab(s), Oral, TID, X 30 day(s), # 90 tab(s), Refills(s) 0, Pharmacy: [facility]/pharmacy #[id number] Start Date: 04/01/22 Stop Date: 05/01/22 Status: Ordered Centrum Minis Men 50+ oral tablet (20 sources) Start: 12-28-2023 take 1 tablet by mouth once daily Centrum Minis Men 50+ oral tablet 1 tab(s), Oral, Daily, Refill(s) 0 Start Date: 12/28/23 Status: Ordered Repeat number: 1 Start: 12-28-2023 take 1 tablet by sendy th once daily Centrum Minis Men 50+ oral tablet 1 tab(s), Oral, Daily, Refill(s) 0 Start Date: 12/28/23 Status: Ordered cloNIDine hydrochloride 0.1 mg oral tablet (20 sources) Central alpha-2 Adrenergic Agonist Start: 04-01-2022 cloNIDine (Catapres) 0.1 MG tablet TAKE 1 TABLET IN THE MORNING AND AT BEDTIME 10/17/2024 Active Comment on above: clonidine HCl 0.1 mg tablet TAKE ONE TABLET BY MOUTH TWICE A DAY dilTIAZem hydrochloride 30 mg oral tablet (20 sources) Calcium Channel Chip Start: 02-03-2022 dilTIAZem (CARDIZEM) 30 mg tablet Take 1 tablet by mouth as needed (1-2 tablets every 6 hours as needed for rapid heart beat (AFIB)). 60 tablet 3 02/03/2022 Active Comment on above: Take 1 tablet by sendy th as needed (1-2 tablets every 6 hours as needed for rapid heart beat (AFIB)). ezetimibe 10 mg oral tablet (19 sources) Dietary Cholesterol Absorption Inhibitor Start: 03-22-2024 End: 10-17-2025 ezetimibe (Zetia) 10 MG tablet Take 10 mg by mouth 10/17/2024 10/17/2025 Active famotidine 20 mg oral tablet (5 sources) Histamine-2 Receptor Antagonist Start: 11-14-2024 take 1 tablet by mouth in the morning famotidine (Pepcid) 20 MG tablet Take 20 mg by mouth in the morning and 20 mg before bedtime. 11/14/2024 Active Glucometer One Touch Ultra 2 (1 source) Start: 2024 Glucometer One Touch Ultra 2 Glucometer One Touch Ultra 2, See Instructions, EA, One Touch Ultra 2 Glucometer, to check BS once daily E11.9, Supply Start Date: 06/11/24 Status: Ordered 24 hr isosorbide mononitrate 120 mg extended release oral tablet (20 sources) Nitrate Vasodilator Start: 12-19-2022 isosorbide mononitrate ER (Imdur) 120 MG 24 hr tablet Take 120 mg by mouth 10/17/2024 Active Comment on above: 120 mg once daily. Isosorbide Dinitrate (1 source) Nitrate Vasodilator Start: 04-01-2022 isosorbide dinitrate Oral, Refills(s) 0 Start Date: 04/01/22 Status: Ordered ketorolac tromethamine 5 mg/ml ophthalmic solution (3 sources) Nonsteroidal Anti-inflammatory Drug, Cyclooxygenase Inhibitor Start: 03-19-2025 keTORolac (ACULAR) 0.5 % ophthalmic solution Use one drop in operative eye as directed by Dr. Syed starting tomorrow. 5 mL 03/19/2025 Active lisinopril 20 mg oral tablet (20 sources) Angiotensin Converting Enzyme Inhibitor Start: 04-01-2022 take 1 tablet by mouth once daily lisinopril 10 mg Tab 10 mg = 1 tab(s), Oral, Daily, # 90 tab(s), Refills(s) 0 Start Date: 04/01/22 Status: Ordered Start: 04-01-2022 End: 10-17-2025 lisinopril 20 MG tablet Take 20 mg by mouth 03/26/2024 10/17/2025 Active Comment on above: lisinopril 20 mg tab let TAKE ONE TABLET BY MOUTH ONCE DAILY meloxicam 15 mg oral tablet (1 source) Nonsteroidal Anti-inflammatory Drug Start: 2 take 1 tablet by mouth once daily meloxicam 15 mg oral tablet 15 mg = 1 tab(s), Oral, Daily, # 30 tab(s), Refills(s) 0, Pharmacy: [facility]/pharmacy #[id number] Start Date: 04/01/22 Status: Ordered metFORMIN hydrochloride 500 mg oral tablet (20 sources) Biguanide Start: 5 take 2 tablets by mouth twice daily metFORMIN (Glucophage) 500 MG tablet metformin 500 mg tablet TAKE TWO TABLETS BY MOUTH TWICE A DAY 10/17/2024 Active Start: 06-19-2024 metformin 500 mg Tab See Instructions, TAKE 2 TABLETS TWICE A DAY, # 360 tab(s), Refills(s) 1, Pharmacy: [facility], 179, cm, 03/26/24 10:53:00 EDT, Height/Length Dosing, 86, kg, 03/26/24 10:53:00 EDT, Weight Dosing Start Date: 06/19/24 Status: Ordered Start: 07-06-2023 metformin 500 mg Tab See Instructions, TAKE 2 TABLETS TWICE A DAY, # 360 tab(s), Refills(s) 1, Pharmacy: [facility], 178, cm, 12/18/23 13:19:00 EST, Height/Length Dosing, 89.1, kg, 12/18/23 13:19:00 EST, Weight Dosing Start Date: 12/19/23 Status: Ordered Start: 04-25-2023 take 2 tablets by [facility] twice daily metformin 500 mg Tab 1,000 mg = 2 tab(s), Oral, BID, TAKE TWO TABLETS BY MOUTH TWICE A DAY, # 360 tab(s), Refills(s) 1, Pharmacy: [facility], 178, cm, 12/19/22 9:57:00 EST, Height/Length Dosing, 90.4, kg, 12/19/22 9:57:00 EST, Weight Dosing Start Date: 04/25/23 Status: Ordered Start: 04-01-2022 End: 09-28-2022 take 2 tablets by mouth twice daily metformin 500 mg ER Tab 1,000 mg = 2 tab(s), Oral, BID, X 90 day(s), # 360 tab(s), Refills(s) 1, Pharmacy: [facility] Start Date: 04/01/22 Stop Date: 09/28/22 Status: Ordered Comment on above: metformin 500 mg tab let TAKE TWO TABLETS BY MOUTH TWICE A DAY 24 hr metoprolol succinate 200 mg extended release oral tablet (20 sources) beta-Adrenergic Chip Start: 10-17-2024 take 1 tablet by mouth every twenty-four hours metoprolol succinate XL (Toprol-XL) 200 MG 24 hr tablet Take 200 mg by mouth 10/17/2024 Active Start: 08-29-2014 take 2 tablets by [facility] once daily Toprol XL 100 mg Tab-ER 200 mg = 2 tab(s), Oral, Daily, Refills(s) 0 Start Date: 08/29/14 Status: Ordered Repeat number: 1 Start: 08-29-2014 take 1 tablet by sendy once daily Toprol XL 100 mg Tab-ER 100 mg = 1 tab(s), Oral, Daily, Refills(s) 0 Start Date: 08/29/14 Status: Ordered take 1 tablet by sendy once daily metoprolol succinate ER (TOPROL XL) 200 mg 24 hr tablet Take 200 mg by mouth once daily. Active Comment on above: Take 200 mg by mouth once daily. ofloxacin 3 mg/ml ophthalmic solution (4 sources) Quinolone Antimicrobial Start: 03-12-20 25 take 1 drop(s) into the eye(s) four times daily ofloxacin (OCUFLOX) 0.3 % ophthalmic solution Use 1 drop in the operative eye 4 times a day starting the day before surgery 5 mL 03/12/2025 Active omeprazole 20 mg delayed release oral capsule (20 sources) Proton Pump Inhibitor Start: 08-29-20 14 End: 10-17-19 26 take 1 capsule by mouth once daily omeprazole (PRILOSEC) 20 mg capsule Take 1 capsule by mouth once daily. 90 capsule 3 12/19/2018 Active Comment on above: Take 1 capsule by [facility] once daily. prednisoLONE acetate 10 mg/ml ophthalmic suspension (3 sources) Corticosteroid Start: 03-19-20 25 prednisoLONE acetate (PRED FORTE) 1 % ophthalmic suspension Use one drop in operative eye as directed by Dr. Syed starting tomorrow. 03/19/2025 Active ProFe 180 mg oral capsule (8 sources) Start: 12-25-19 take 1 capsule by mouth once daily ProFe 180 mg oral capsule 180 mg = 1 cap(s), Oral, Daily, # 100 cap(s), Refills(s) 0, Pharmacy: [facility]/pharmacy #[id number], 178, cm, 12/18/23 13:19:00 EST, Height/Length Dosing, 89.1, kg, 12/18/23 13:19:00 EST, Weight Dosing Start Date: 12/25/23 Status: Ordered 12 hr ranolazine 500 mg extended release oral tablet (20 sources) Anti-anginal Start: 10-17-19 End: 10-17-19 ranolazine ER (RANEXA) 500 mg 12 hr tablet Take 500 mg by mouth. 10/17/2024 10/17/2025 Active Start: 12-19-2022 take 2 tablets by mo [facility] twice daily ranolazine 500 mg oral ER Tab 1,000 mg = 2 tab(s), Oral, BID, # 120 tab(s), Refills(s) 0 Start Date: 12/19/22 Status: Ordered Quantity: 120.0 Unit: tab(s) Repeat number: 1 rivaroxaban 20 mg oral tablet (10 sources) Factor Xa Inhibitor Start: 01-21-2019 End: 03-12-2025 take 1 tablet by mouth once daily in the evening Xarelto 20 mg oral tablet 20 mg = 1 tab(s), Oral, qPM, Refills(s) 0 Start Date: 07/03/23 Status: Ordered Comment on above: Take 1 tablet by [facility] once daily. simvastatin 40 mg oral tablet (2 sources) HMG-CoA Reductase Inhibitor Start: 08-29-2014 take 1 tablet by mouth once daily at bedtime Zocor 40 mg Tab 40 mg = 1 tab(s), Oral, Once a day (at bedtime), Refills(s) 0 Start Date: 08/29/14 Status: Ordered tamsulosin hydrochloride 0.4 mg oral capsule (2 sources) alpha-Adrenergic Chip Start: 07-19-2023 take 1 capsule by mouth once daily Flomax 0.4 mg Cap 0.4 mg = 1 cap(s), Oral, Daily, # 10 cap(s), Refills(s) 0, Pharmacy: [facility]/pharmacy #[id number], 178, cm, 07/19/23 11:20:00 EDT, Height/Length Dosing, 89.2, kg, 07/19/23 11:20:00 EDT, Weight Dosing Start Date: 07/19/23 Status: Ordered Problems Active Problems Problem Classification Problem Date Documented Da te Episodic/Chronic Abdominal pain (4 sources) Left flank pain 07-19-2023 Episodic Aortic; peripheral; and visceral artery aneurysms (20 sources) Aortic aneurysm; 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: [Abdominal aortic aneurysm] Onset: 5 08-08-2023 Chronic Calculus of urinary tract (20 sources) Kidney stone; 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: [History of calculus of kidney] Onset: 3 07-19-2023 Episodic Cardiac dysrhythmias (20 sources) Persistent atrial fibrillation; 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: [Other persistent atrial fibrillation] Onset: 2 Chronic Cataract (14 sources) Senile combined form cataract of right eye; 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: [Combined forms of age-related cataract, right eye] Onset: 5 03-06-2025 Chronic Coagulation and hemorrhagic disorders (2 sources) Thrombocytopenic disorder 01-29-2025 Chronic Comment on above: added per 01/29/2025 query response. Coronary atherosclerosis and other heart disease (20 sources) Coronary arteriosclerosis; 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: [Atherosclerotic heart disease of [place] coronary artery without angina pectoris] Onset: 4 10-02-2014 Chronic Deficiency and other anemia (20 sources) Microcytic anemia 12-28-2023 Episodic Deficiency and other anemia (3 sources) Iron deficiency anemia; 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: [Iron deficiency anemia, unspecified] Onset: 4 Episodic Diabetes mellitus without complication (20 sources) Type 2 diabetes mellitus without complications; 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: [Type 2 diabetes mellitus without complication] Onset: 3 Chronic Comment on above: linked DM with HLD p er OP CDI policy. Disorders of lipid metabolism (20 sources) Dyslipidemia; 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: [Hyperlipidemia, unspecified] Onset: 4 08-22-2014 Chronic Esophageal disorders (20 sources) Gastroesophageal reflux disease without esophagitis; 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: [Gastroesophageal reflux disease] Onset: 5 07-03-2023 Chronic Essential hypertension (20 sources) Hypertensive disorder; 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: [Essential (primary) hypertension] Onset: 4 08-22-2014 Chronic Genitourinary symptoms and ill-defined conditions [...] Adenomatous polyp of rectum 10-04-2023 Episodic Other and unspecified benign neoplasm (2 sources) Melanocytic nevus of trunk; 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: [Melanocytic nevi of trunk] 02-25-2025 Episodic Other and unspecified benign neoplasm (2 sources) Melanocytic nevus of left lower limb; 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: [Melanocytic nevi of left lower limb, including hip] 02-25-2025 Episodic Other circulatory disease (2 sources) Spider nevus; 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: [Nevus, non-neoplastic] 02-25-2025 Episodic Other ear and sense organ disorders (6 sources) Impacted cerumen 07-03-2023 Episodic Other eye disorders (4 sources) Bilateral posterior vitreous detachment; 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: [Vitreous degeneration, bilateral] Onset: 5 03-06-2025 Chronic Other eye disorders (1 source) Vitreous degeneration, bilateral; 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: [PVD (posterior vitreous detachment), bilateral] Onset: 5 Chronic Other eye disorders (4 sources) Tear film insufficiency of bilateral eyes; 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: [Dry eye syndrome of bilateral lacrimal glands] Onset: 5 03-06-2025 Episodic Other eye disorders (1 source) H/O: R cataract extraction; 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: [Cataract extraction status, right eye] 04-03-2025 Episodic Other eye disorders (1 source) Cataract extraction status, right eye; 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: [S/P cataract extraction and insertion of intraocular lens, right] Onset: 5 Episodic Other eye disorders (1 source) Dry eye syndrome of bilateral lacrimal glands; 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: [Insufficiency of tear film of both eyes] Onset: 5 Episodic Other gastrointestinal disorders (2 sources) Intestinal malabsorption; 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: [Intestinal malabsorption, unspecified] Onset: 4 Chronic Other gastrointestinal disorders (20 sources) Splenomegaly 12-28-2023 Episodic Other non-traumatic joint disorders (14 sources) Hip pain 03-26-2024 Episodic Other nutritional; [...] metabolic disorders (20 sources) Overweight 08-29-2023 Episodic Other skin disorders (2 sources) Actinic keratosis; 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: [Actinic keratosis] 02-25-2025 Episodic Other skin disorders (2 sources) Seborrheic keratosis; 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: [Other seborrheic keratosis] 02-25-2025 Episodic Other skin disorders (4 sources) Inflamed seborrheic keratosis; 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: [Inflamed seborrheic keratosis] 02-25-2025 Episodic Residual codes; unclassified (20 sources) Family history of malignant neoplasm of kidney; 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: [Family history of malignant neoplasm of kidney] Onset: 3 Episodic Residual codes; unclassified (1 source) Other specified postprocedural states; 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: [Hx of LASIK] Onset: 5 Episodic Retinal detachments; defects; vascular occlusion; and retinopathy (7 sources) Nonexudative age-related macular degeneration; 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: [Nonexudative age-related macular degeneration, bilateral, early dry stage] Onset: 5 01-29-2025 Chronic Comment on above: noted in 01/29/2024 Diabetic Eye Exam page 1. added per OP CDI policy. Screening and history of mental health and substance abuse codes (20 sources) H/O: Disorder; 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: [Personal history of nicotine dependence] Onset: 3 Episodic Unclassified (20 sources) Non-smoker 12-19-2022 Unclassified (20 sources) Patient encounter status 07-03-2023 Unclassified (3 sources) Other persistent atrial fibrillation; 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: [Other persistent atrial fibrillation] Onset: 4 Unclassified (1 source) Infrarenal abdominal aortic aneurysm, without rupture; 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: [Infrarenal abdominal aortic aneurysm, without rupture] Onset: 4 Unclassified (1 source) Aneurysm of the ascending aorta, without rupture; 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: [Aneurysm of the ascending aorta, without rupture] Onset: 4 Unclassified (1 source) Abdominal aortic aneurysm (AAA) without rupture, unspecified part; 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: [Abdominal aortic aneurysm (AAA) without rupture, unspecified part] Onset: 5 Past or Other Problems Problem Classification Problem Date Documented Date Episodic/Chronic Other aftercare (6 sources) Long-term current use of anticoagulant; 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: [group home (current) use of 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] Onset: 11-28-2017 11-28-2017 Episodic Other screening for suspected conditions (not mental disorders or infectious disease) (7 sources) Cardiovascular stress test abnormal; 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: [Abnormal result of other cardiovascular function study] Onset: 08-25-2014 Resolved: 03-12-2025 08-25-2014 Episodic Unclassified (1 source) Infrarenal abdominal aortic aneurysm, without rupture; 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: [Infrarenal abdominal aortic aneurysm, without rupture] Onset: 07-12-2024 Unclassified (1 source) Aneurysm of the ascending aorta, without rupture; 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: [Aneurysm of the ascending aorta, without rupture] Onset: 07-12-2024 Results Test Name Value Interpretation Reference Range 05-02-20 25 [facility] Case Information Case Priority: None Programs: -- Referral Source: International Tax Manager Referral Reason: Disease management Case Type: Chronic Care Management Risk Score: -- Case Status: Active (December 28, 2023) Date Assigned: December 19, 2023 Assigned By: Christian Hernandez Date Enrolled: December 28, 2023 Assigned Primary Personnel: Christian Hernandez Assigned Secondary Personnel: -- Case Physician: Ursula Love MD Ongoing AAA (abdominal aortic aneurysm) Aortic aneurysm BMI 25.0-25.9,adult BPH (benign prostatic hyperplasia) CAD in [place] artery Controlled type 2 diabetes mellitus without complication, without long-term current use of insulin 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 External bleeding hemorrhoids Family history of kidney cancer Former smoker GERD without esophagitis Hip pain, bilateral Longstanding persistent atrial fibrillation Microcytic anemia Mixed hyperlipidemia Non-smoker Overweight Personal history of kidney stones Primary hypertension Screening for colon cancer Spleen enlarged Thrombocytopenia Tubular adenoma of rectum Type 2 diabetes mellitus with hyperlipidemia Historical Atrial fibrillation Dyslipidemia Hypertension Metabolic syndrome Procedure/Surgical History Cardiac ablation system (11/13/2024), Colonoscopy (09/20/2023), Cardiac catheterization, Rotator cuff repair, Tear of biceps tendon, Tonsillectomy. Home Medications amLODIPine 5 mg Tab, Oral, Daily atorvastatin 80 mg Tab, 80 mg= 1 tab(s), Oral, Daily Centrum Minis Men 50+ oral tablet, 1 tab(s), Oral, Daily cloNIDine 0.1 mg tab, Oral, BID diltiazem 30 mg Tab, See Instructions Eliquis, 5 mg, Oral, BID isosorbide mononitrate 120 mg ER Tab, 120 mg= 1 tab(s), Oral, qAM lancets, See Instructions lancets, See Instructions, 1 refills lisinopril 20 mg Tab, See Instructions, 1 refills metformin 500 mg Tab, See Instructions, 3 refills omeprazole 20 mg Cap-DR, See Instructions One Touch Ultra 2 Test Strips, See Instructions ranolazine 500 mg oral ER Tab, 1000 mg= 2 tab(s), Oral, BID Toprol XL 100 mg Tab-ER, 200 mg= 2 tab(s), Oral, Daily Zetia, 10 mg, Oral, Daily Allergies penicillins (Hives) Social History Alcohol Current, Beer, 1-2 times per week, Previous treatment: None. Alcohol use interferes with work or home: No. Drinks more than intended: No. Others hurt by drinking: No. Ready to change: No. Household alcohol concerns: No., 01/30/2025 Employment/School Employed, Work/School description: [employer]. Highest education level: High school. 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 equipment: No., 09/02/2014 Substance Abuse - No Risk, 08/29/2014 Never, 01/30/2025 Tobacco - No Risk, 08/29/2014 Former smoker, quit more than 30 days ago Tobacco Use:. Never Smokeless Tobacco Use:. Cigarettes, Household tobacco concerns: No. Yes, 02/13/2025 Family History Acute myocardial infarction: Brother. Heart failure: Mother. Screenings and Assessments 12/28/23 08:18:00 Result Name Value Comment CCM Program Enrollment Verbally agreed to receive [facility] services CCM Written Consent Written consent obtained [facility] Verbal Consent By Self 12/28/23 07:00:00 Result Name Value Comment HIPPA Verified Type of Contact In person at home CM Preferred Spoken Language Swiss CM Preferred Written Language Swiss Preferred Communication Mode Verbal Ability to Read/Write Able to read, Able to write Preferred Salutation MrNelly Preferred Method of Contact Cell Cell Phone [phone] Best Time to Visit or Contact 7-10 am Best Day to Visit or Contact No preference Appointment Reminders Patient portal, Other secured messaging Preferred Way to Send PHI Patient portal Preferred Mailing Address [address] [place] [address], 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 Normal [facility] ANES POSTPROC EVALon 025 ANES POSTPROC EVAL HNO ID: [id number] Author: ULISES CARROLL II, DO Service: Anesthesiology Author Type: Anesthesiologist Type: Anesthesia Postprocedure Evaluation Filed: 04/07/2025 12:50 Note Text: POST ANESTHESIA EVALUATION NOTE : 1960 Procedure Summary Date: 04/07/25 Room / Location: [place] [address] / [facility] Anesthesia Start: 1008 Anesthesia Stop: 1025 Procedures: PHACOEMULSIFICATION CATARACT IMPLANT INTRAOCULAR LENS W/O ENDOSCOPIC CYCLOPHOTOCOAGULATION (Left: Eye) OPHTHALMIC BIOMETRY BY PARTIAL COHERENCE INTERFEROMETRY W/INTRAOCULAR LENS POWER CALCULATION (Left: Eye) Diagnosis: Combined forms of age-related cataract of left eye (Combined forms of age-related cataract of left eye [H25.812]) Surgeons: Adam Ellsworth V, MD Responsible Provider: Ulises Carroll II, DO Anesthesia Type: MAC ASA Status: 3 Anesthesia Type: MAC Last Vitals Vitals Value Taken Time BP 122/58 04/07/25 1026 Temp 36.3 ?C (97.4 ?F) 04/07/25 1026 Pulse 55 04/07/25 1026 Resp 16 04/07/25 1026 SpO2 98 % 04/07/25 1026 Post Anesthesia Patient Status Patient Evaluation: PACU. PACU/ICU Patient Condition: stable. Neurological Status: aware and responsive. Pulmonary Status: breathing comfortably on room air Airway Control: returned to baseline unsupported. Cardiovascular Status: stable. Pain Management: clinically adequate Postoperative Hydration: acceptable. Intraoperative Events: no significant anesthesia events Post Operative Nausea/Vomiting Status: no significant post operative nausea or vomiting Recommendation: continue current plan of care. Anesthesia Observations No Documentation SIGNATURE: Ulises Carroll II, DO PATIENT NAME: Marcelle Doherty DATE: April 07, 2025 TIME: 12:50 PM CSN: [id number] Normal [facility] ANES PRE-OPon 04-07-2025 ANES PRE-OP HNO ID: [id number] Author: ULISES CARROLL II, DO Service: Anesthesiology Author Type: Anesthesiologist Type: Anesthesia Preprocedure Evaluation Filed: 04/07/2025 09:12 Note Text: ANESTHESIOLOGY DAY OF SURGERY NOTE : 1960 Procedure Information Date/Time: 04/07/2525 Procedures: PHACOEMULSIFICATION CATARACT IMPLANT INTRAOCULAR LENS W/O ENDOSCOPIC CYCLOPHOTOCOAGULATION (Left: Eye) OPHTHALMIC BIOMETRY BY PARTIAL COHERENCE INTERFEROMETRY W/INTRAOCULAR LENS POWER CALCULATION (Left: Eye) Location: [place] [address] / [facility] Surgeons: Adam Ellsworth V, MD Estimated body mass index is 27.2 kg/m? as calculated from the following: Height as of 03/12/25: 177.8 cm (5' 10 ). Weight as of 03/12/25: 86 kg (189 lb 9.5 oz). Most recent hematocrit and potassium results: Hematocrit 45.5 07/04/2017 Potassium 4.7 07/04/2017 Relevant Problems CARDIO (+) AAA (abdominal aortic aneurysm) (+) Atrial fibrillation (HCC) (+) CAD (coronary artery disease) (+) Hypertension ENDO (+) Type 2 diabetes mellitus without retinopathy (HCC) GI (+) GERD (gastroesophageal reflux disease) I - PHYSICAL EVALUATION AIRWAY Patient intubated: No. Tracheostomy tube not present Mallampati: III. TM distance: >3 FB. Neck ROM: limited extension. Mouth opening: adequate. Short neck: no. Thick neck: no Dailey present: yes Additional exam findings: yes. CARDIOVASCULAR Rhythm: regular Rate: normal PULMONARY Breath sounds clear to auscultation. Other findings: crowns. II - ANESTHESIA PLAN ASA Score: 3 Anesthetic Plan: MAC The patient is not a current smoker. NPO Status: adequate Beta Chip Monitoring Plan Monitoring plan: standard ASA. Post Procedure Analgesic Plan Postoperative analgesic plan: parenteral or oral opioids. Informed Consent Anesthetic risks, benefits, alternatives, personnel and consent discussed: yes. Patient / Responsible Green Party agrees to proceed: yes Patient / Surrogate agrees to blood products: Yes Vitals Value Taken Time BP 195/90 04/07/25 0859 Pulse 68 04/07/25 0859 Resp 16 04/07/25 0859 Temp 36.6 ?C (97.9 ?F) 04/07/25 0859 SpO2 100 % 04/07/25 0859 Facility-Administered Medications as of 04/07/2025 Medication Dose Route Frequency - NaCl 0.9% iv infusion 30 mL/hr INTRAVENOUS CONTINUOUS - [COMPLETED] lidocaine 4% 1 drop ophthalmic solution (XYLOCAINE) 1 drop LEFT EYE q 5 MIN - [COMPLETED] PHENYLephrine 2.5 % 1 drop (AK-DILATE, EVERETT-SYNEPHRINE) 1 drop LEFT EYE EVERY 5 MINUTES X 3 DOSES - [COMPLETED] tropicamide 1 % 1 drop (MYDRIACYL) 1 drop LEFT EYE EVERY 5 MINUTES X 3 DOSES - cyclopentolate 1 % 1 drop (CYCLOGYL) 1 drop LEFT EYE Pre-Op PRN - [COMPLETED] keTORolac 0.5 % 1 drop (ACULAR) 1 drop LEFT EYE q 5 MIN - [COMPLETED] Povidone-Iodine 5 % 30 mL ophth soln (BETADINE) 30 mL LEFT EYE ONCE - [COMPLETED] balanced salt 15 mL (BSS) 15 mL LEFT EYE ONCE Outpatient Medications as of 04/07/2025 Medication Sig - prednisoLONE acetate (PRED FORTE) 1 % ophthalmic suspension Use one drop in operative eye as directed by Dr. Syed starting tomorrow. - keTORolac (ACULAR) 0.5 % ophthalmic solution Use one drop in operative eye as directed by Dr. Syed starting tomorrow. - ofloxacin (OCUFLOX) 0.3 % ophthalmic solution Use 1 drop in the operative eye 4 times a day starting the day before surgery - apixaban (ELIQUIS) 5 mg tab(s) Take 5 mg by mouth. - ranolazine ER (RANEXA) 500 mg 12 hr tablet Take 500 mg by mouth. - amLODIPine (NORVASC) 5 mg tablet amlodipine 5 mg tablet TAKE ONE TABLET BY MOUTH DAILY - atorvastatin (LIPITOR) 80 mg tablet atorvastatin 80 mg tablet - cloNIDine HCl (CATAPRES) 0.1 mg tablet clonidine HCl 0.1 mg tablet TAKE ONE TABLET BY MOUTH TWICE A DAY - isosorbide mononitrate ER (IMDUR) 120 mg 24 hr tablet 120 mg once daily. - lisinopril (ZESTRIL, PRINIVIL) 20 mg tablet lisinopril 20 mg tablet TAKE ONE TABLET BY MOUTH ONCE DAILY - metFORMIN (GLUCOPHAGE) 500 mg tablet metformin 500 mg tablet TAKE TWO TABLETS BY MOUTH TWICE A DAY - metoprolol succinate ER (TOPROL XL) 200 mg 24 hr tablet Take 200 mg by mouth once daily. - omeprazole (PRILOSEC) 20 mg capsule Take 1 capsule by mouth once daily. - dilTIAZem (CARDIZEM) 30 mg tablet Take 1 tablet by mouth as needed (1-2 tablets every 6 hours as needed for rapid heart beat (AFIB)). I have interviewed and examined the patient. I have reviewed the medical record and/or the pre-anesthesia evaluation, pertinent labs, and test results. This contains updated information obtained within 48 hours of Surgery/Procedure. SIGNATURE: Ulises Carroll II, DO PATIENT NAME: Marcelle Doherty DATE: April 07, 2025 TIME: 9:11 AM CSN: [id number] [facility] OPERATIVE NOon 04-07-2025 OPERATIVE NO HNO ID: [id number] Author: ADAM ELLSWORTH MD Service: Ophthalmology Author Type: Physician Type: Operative Report Filed: 04/07/2025 10:31 Note Text: OPERATIVE REPORT DATE OF SERVICE: April 07, 2025 PRIMARY SURGEON: Adam Ellsworth M.D. TOURING PRODUCTION MANAGER: None [Any nurse listed as assisting or otherwise participating in this patient's care in the operating room has solely performed the duties of a circulating nurse.] Procedure(s) (LRB): PHACOEMULSIFICATION CATARACT IMPLANT INTRAOCULAR LENS W/O ENDOSCOPIC CYCLOPHOTOCOAGULATION (Left) OPHTHALMIC BIOMETRY BY PARTIAL COHERENCE INTERFEROMETRY W/INTRAOCULAR LENS POWER CALCULATION (Left) ANESTHESIA: Topical with monitored anesthesia care. PREOPERATIVE DIAGNOSIS: Combined cataract POSTOPERATIVE DIAGNOSIS: Combined cataract, presbyopia OPERATIVE INDICATIONS: BAT 20/60 OPERATIVE PROCEDURE: The patient was admitted to the operating suite where an IV and BP, EKG, and O2 monitors were placed. The operative eye was pretreated with 2.5% tropicamide and 1% phenylephrine eye drops. The operative eye was confirmed and marked. The intended Intraocular lens model and power circled on the patient's source document was confirmed to match the intraocular lens model and power selected from the Intraocular lens consignment, in accordance with hospital intraocular lens verification policy. Nasal oxygen was administered. With the patient in the supine position, topical lidocaine 4% was placed in the eye. The patient was then prepped and draped in the usual sterile fashion for intraocular surgery. After a time-out confirming correct patient using two unique identifiers, correct eye, correct operation, presence of allergies, correct implant, and implant sterility date, an eyelid speculum was placed. Under the operating microscope a beveled clear corneal incision was created temporally with a [place] blade then a 2.4 mm keratome. The anterior chamber was reformed with Viscoat, after which the anterior capsule was opened centrally. Using the Utrata forceps a continuous curvilinear capsulorrhexis of approximately 5.5 mm round was created. Gentle hydrodissection was accomplished using preservative-free lidocaine on a 27-gauge cannula. Using the Sandro phacoemulsification unit with the Kelman curved tip, the anterior chamber was entered and the nucleus was removed while it was in the bag. The epinuclear ring was dissected into several segments, then removed using the phacoemulsification unit set to the desired aspiration flow rate and ultrasound parameters. It was necessary to use chopper forceps at various intervals to aid in the fragmentation of the dense lens material. Great care was taken not to violate the posterior capsule. The silicone-tipped I and A instrument was used to remove the cortex and buff off any remaining cataractous material from the posterior capsule. The capsular bag was then reformed with Discovisc and the following Intraocular lens implant Implant Name Type Inv. Item Serial No. Buffer Automatic Lot No. LRB No. Used Action Model No. [id number] [employer] - [id number] Intraocular Lens [id number] [employer] [id number] [employer] Left 1 Implanted [id number] was inserted through the lips of the wound into the capsular bag. I have reviewed the images and report from the Ophthalmic Biometry April 07, 2025 to determine the Intraocular lens Power Calculation for the IOL lens implant. I have interpreted and agree with the calculation of the IOL as listed above. Using the I and A instrument, the Discovisc was removed from the anterior chamber and capsular bag, and the implant was centered. Moxifloxacin 0.5mg in 0.1 mL normal saline was introduced into the anterior chamber through the clear corneal incision using a 30 gauge cannula. The wound was checked and found to be watertight. At the end of the procedure, the cornea was clear, the anterior chamber was deep and clear, the pupil was round, the implant was centered within the capsular bag, and the posterior capsule was intact. The eyelid speculum was removed and prednisolone acetate 1% and timolol 0.5% eye drops were administered. A shield was affixed over the eye and the patient was sent to the recovery room, leaving the operating room in excellent condition. ESTIMATED BLOOD LOSS: <1mL SPECIMEN: None FINDINGS: Age-related cataract COMPLICATIONS: None Incision/Procedure Start Time: 10:15 AM Incision Close/Procedure End Time: 10:22 AM - [facility] Adam ELLSWORTH MD [facility] No Panel Informationon 03-31 [facility] ANES POSTPROC EVALon 025 ANES POSTPROC EVAL HNO ID: [id number] Author: NICOLA DAY MD Service: Anesthesiology Author Type: Physician Type: Anesthesia Postprocedure Evaluation Filed: 03/19/2025 11:04 Note Text: POST ANESTHESIA EVALUATION NOTE : 1960 Procedure Summary Date: 03/19/25 Room / Location: [address] Anesthesia Start: 934 Anesthesia Stop: 952 Procedures: PHACOEMULSIFICATION CATARACT IMPLANT INTRAOCULAR LENS W/O ENDOSCOPIC CYCLOPHOTOCOAGULATION (Right: Eye) OPHTHALMIC BIOMETRY BY PARTIAL COHERENCE INTERFEROMETRY W/INTRAOCULAR LENS POWER CALCULATION (Right: Eye) Diagnosis: Combined forms of age-related cataract of right eye Hx of LASIK Type 2 diabetes mellitus without retinopathy (HCC) Nonexudative age-related macular degeneration, bilateral, early dry 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 PVD (posterior vitreous detachment), bilateral (Combined forms of age-related cataract of right eye [H25.811]) (Hx of LASIK [Z98.890]) (Type 2 diabetes mellitus without retinopathy (HCC) [E11.9]) (Nonexudative age-related macular degeneration, bilateral, early dry stage [H35.3131]) (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]) (PVD (posterior vitreous detachment), bilateral [H43.813]) Surgeons: Humera Syed MD Responsible Provider: Nicola Day MD Anesthesia Type: MAC ASA Status: 3 Anesthesia Type: MAC Last Vitals Vitals Value Taken Time BP 120/65 03/19/25 0957 Temp 36.1 ?C (97 ?F) 03/19/25 0956 HR SpO2 60 03/19/25 0957 Resp 16 03/19/25 0957 SpO2 96 % 03/19/25 0957 Post Anesthesia Patient Status Patient Evaluation: PACU. PACU/ICU Patient Condition: stable. Anticipated Disposition: phase 2 then home. Neurological Status: aware and responsive. Pulmonary Status: breathing comfortably on room air Airway Control: returned to baseline unsupported. Cardiovascular Status: stable. Pain Management: clinically adequate - multimodal analgesia pain management approach Postoperative Hydration: acceptable. Intraoperative Events: no significant anesthesia events Recommendation: continue current plan of care. Anesthesia Observations No Documentation SIGNATURE: Nicola Day MD PATIENT NAME: Marcelle Doherty DATE: March 19, 2025 TIME: 11:04 AM CSN: [id number] Normal [facility] ANES PRE-OPon 03-19-2025 ANES PRE-OP HNO ID: [id number] Author: NICOLA DAY MD Service: Anesthesiology Author Type: Physician Type: Anesthesia Preprocedure Evaluation Filed: 03/19/2025 09:34 Note Text: ANESTHESIOLOGY DAY OF SURGERY NOTE : 1960 Procedure Information Date/Time: 03/19/25 1000 Procedures: PHACOEMULSIFICATION CATARACT IMPLANT INTRAOCULAR LENS W/O ENDOSCOPIC CYCLOPHOTOCOAGULATION (Right: Eye) OPHTHALMIC BIOMETRY BY PARTIAL COHERENCE INTERFEROMETRY W/INTRAOCULAR LENS POWER CALCULATION (Right: Eye) Location: [address] Surgeons: Humera Syed MD Estimated body mass index is 27.2 kg/m? as calculated from the following: Height as of 03/12/25: 177.8 cm (5' 10 ). Weight as of 03/12/25: 86 kg (189 lb 9.5 oz). Most recent hematocrit and potassium results: Hematocrit 45.5 07/04/2017 Potassium 4.7 07/04/2017 Relevant Problems CARDIO (+) AAA (abdominal aortic aneurysm) (+) Atrial fibrillation (HCC) (+) CAD (coronary artery disease) (+) Hypertension ENDO (+) Type 2 diabetes mellitus without retinopathy (HCC) GI (+) GERD (gastroesophageal reflux disease) I - PHYSICAL EVALUATION AIRWAY Patient intubated: No. Tracheostomy tube not present Mallampati: II. TM distance: >3 FB. Neck ROM: full ROM without neurological symptoms. Mouth opening: adequate. Short neck: no. Thick neck: no Dailey present: yes DENTAL Dental findings: teeth intact. Additional exam findings: no II - ANESTHESIA PLAN ASA Score: 3 Anesthetic Plan: MAC NPO Status: adequate Beta Chip Monitoring Plan Monitoring plan: standard ASA. Post Procedure Analgesic Plan Postoperative analgesic plan: parenteral or oral opioids and multimodal analgesia. Informed Consent Anesthetic risks, benefits, alternatives, personnel and consent discussed: yes. Patient / Responsible Green Party agrees to proceed: yes Patient / Surrogate agrees to blood products: blood products not planned Significant changes in the patient condition since the History and Physical, not otherwise documented in primary service progress note: no. Vitals Value Taken Time BP 177/85 03/19/25916 Pulse 70 03/19/25916 Resp 16 03/19/25916 Temp 36.3 ?C (97.3 ?F) 03/19/25916 SpO2 98 % 03/19/25916 Facility-Administered Medications as of 03/19/2025 Medication Dose Route Frequency NaCl 0.9% iv infusion 30 mL/hr INTRAVENOUS CONTINUOUS [COMPLETED] tetracaine (PF) 0.5 % 2 drop (OPTICAINE) 2 drop RIGHT EYE EVERY 5 MINUTES X 3 DOSES [COMPLETED] PHENYLephrine 2.5 % 1 drop (AK-DILATE, EVERETT-SYNEPHRINE) 1 drop RIGHT EYE EVERY 5 MINUTES X 3 DOSES [COMPLETED] tropicamide 1 % 1 drop (MYDRIACYL) 1 drop RIGHT EYE EVERY 5 MINUTES X 3 DOSES cyclopentolate 1 % 1 drop (CYCLOGYL) 1 drop RIGHT EYE Pre-Op PRN [COMPLETED] keTORolac 0.5 % 1 drop (ACULAR) 1 drop RIGHT EYE q 5 MIN Outpatient Medications as of 03/19/2025 Medication Sig apixaban (ELIQUIS) 5 mg tab(s) Take 5 mg by mouth. amLODIPine (NORVASC) 5 mg tablet amlodipine 5 [...] TWO TABLETS BY MOUTH TWICE A DAY prednisoLONE acetate (PRED FORTE) 1 % ophthalmic suspension Use one drop in operative eye as directed by Dr. Syed starting tomorrow. keTORolac (ACULAR) 0.5 % ophthalmic solution Use one drop in operative eye as directed by Dr. Syed starting tomorrow. ranolazine ER (RANEXA) 500 mg 12 hr tablet Take 500 mg by mouth. metoprolol succinate ER (TOPROL XL) 200 mg 24 hr tablet Take 200 mg by mouth once daily. dilTIAZem (CARDIZEM) 30 mg tablet Take 1 tablet by mouth as needed (1-2 tablets every 6 hours as needed for rapid heart beat (AFIB)). omeprazole (PRILOSEC) 20 mg capsule Take 1 capsule by mouth once daily. I have interviewed and examined the patient. I have reviewed the medical record and/or the pre-anesthesia evaluation, pertinent labs, and test results. This contains updated information obtained within 48 hours of Surgery/Procedure. SIGNATURE: Nicola Day MD PATIENT NAME: Marcelle Doherty DATE: March 19, 2025 TIME: 9:33 AM CSN: [id number] Normal [facility] OPERATIVE NOon 03-19-2025 OPERATIVE NO HNO ID: [id number] Author: HUMERA SYED MD Service: Ophthalmology Author Type: Physician Type: Operative Report Filed: 03/19/2025 09:54 Note Text: OPERATIVE/PROCEDURE REPORT LOG ID: [id number] Surgery/Procedure Date: 03/19/2025 Incision/Procedure Start Time: 9:43 AM Incision Close/Procedure End Time: 9:51 AM Surgeon(s)/Procedurali st(s) and Director Of Clinical Applications(s): Surgeons and Role: * Humera Syed MD - Primary Director Of Clinical Applications: None. Any nurse listed as assisting or otherwise participating in this case has performed only the duties of a circulating nurse. Anesthesia: Monitored Anesthesia Care Pre-Op/Pre-Procedure Diagnosis: Pre-Op Diagnosis Codes: * Combined forms of age-related cataract of right eye [H25.811] * Hx of LASIK [Z98.890] Post-Op/Post-Procedure Diagnosis: Post-Op Diagnosis Codes: * Combined forms of age-related cataract of right eye [H25.811] * Hx of LASIK [Z98.890] Procedure(s): Procedure(s) (LRB): PHACOEMULSIFICATION CATARACT IMPLANT INTRAOCULAR LENS W/O ENDOSCOPIC CYCLOPHOTOCOAGULATION (Right) OPHTHALMIC BIOMETRY BY PARTIAL COHERENCE INTERFEROMETRY W/INTRAOCULAR LENS POWER CALCULATION (Right) Procedure Details: The patient was brought to the operating room and placed in the supine position on the operating table in the usual fashion. An IV was in place, as well as EKG, and BP monitoring. Nasal oxygen was administered. A Time Out was conducted confirming the correct patient, correct eye, correct surgery, correct implant and all allergies. The [facility] Lens verification Policy was meticulously followed as previously approved with both an initial lens verification by myself in the presence of the Nurse Coordinator and the automated equipment engineer technician and a secondary full lens verification as part of the Time Out, with patient identity, laterality, and lens choice confirmed against the source document by myself, the Director Commercial Sales Nurse, and the automated equipment engineer technician. Topical lidocaine gel 2% was placed in a small ribbon in the lower cul-de-sac. The patient was prepped and draped in the usual sterile manner and a wire lid speculum was used to keep the eyelids open. A scleral groove was created at the superotemporal limbus and a keratome blade was used to tunnel forward from the groove approximately 1 mm into clear cornea before the anterior chamber was entered. The blade was used to guzman the central anterior lens capsule. After the anterior chamber was filled with viscoelastic, the Utrata forceps were used to create a continuous curvilinear capsulorrhexis of approximately 5.5 mm round. Gentle hydrodissection was accomplished using preservative-free lidocaine on a 27-guage cannula. Using the Sandro phacoemulsification unit with the [place] curved tip, the anterior chamber was entered and the nucleus was removed while it was in the bag. The epinuclear ring was dissected into several segments, then removed using the phacoemulsification unit set to the desired aspiration flow rate and ultrasound parameters. Great care was taken not to violate the posterior capsule. The phaco CDE was 59.44. The irrigation/aspiration (I and A) device was then used to remove residual cortex. At the conclusion of the I and A, the posterior capsule was polished and then noted to be clean and intact. The lens capsule was filled with viscoelastic and the foldable 19.5 diopter lens was inserted atraumatically into the capsular bag (see implants below for lens information). The lens was observed to center nicely. The I and A device was again used to remove residual viscoelastic. Intracameral Moxifloxacin 0.1 cc was injected. The wound was tested and found to be watertight. The speculum was removed. Drops of ketorolac (if not allergic), timolol and prednisolone were instilled. A shield was applied and the patient left the operating room in stable condition without complications. Estimated Blood Loss: 0 ml Specimens: None. I have reviewed the images and report from the Ophthalmic Biometry March 19, 2025 to determine the Intraocular lens Power Calculation for the IOL lens implant. I have interpreted and agree with the calculation of the IOL as listed below. Implants: Implant Name Type Inv. Item Serial No. Buffer Automatic Lot No. LRB No. Used Action Model No. [id number] [facility] - [id number] Intraocular Lens [id number] [employer] [id number] [employer] Right 1 Implanted [id number] Drains: None. Complications: None. I performed the entire procedure. Comanage with Dr[facility] Umanzor[facility] SIGNATURE: Humera Syed MD PATIENT NAME: Marcelle Doherty DATE: March 19, 2025 TIME: 9:53 AM PAGER/CONTACT #: Normal [facility] ASCAN ONLY - DIAGNOSTIC OU ( BOTH EYES)on 03-12-2025 [facility] Radiology Study observation (narrative) [facility] HISTORY PHYSICALon HISTORY PHYSICAL HNO ID: [id number] Author: MUNIRA MARSHALL APRN.CNP Service: ? Author Type: Nurse Practitioner Type: H&P Filed: 03/12/2025 09:24 Note Text: HISTORY AND PHYSICAL EXAMINATION SERVICE DATE: 03/12/2025 SERVICE TIME: Munira Marshall APRN.[employer] PRIMARY CARE PHYSICIAN: Ursula Love MD REASON FOR VISIT: Mareclle Doherty is a 64 year old male who is scheduled for Right - PHACOEMULSIFICATION CATARACT IMPLANT INTRAOCULAR LENS W/O ENDOSCOPIC CYCLOPHOTOCOAGULATION Right - OPHTHALMIC BIOMETRY BY PARTIAL COHERENCE INTERFEROMETRY W/INTRAOCULAR LENS POWER CALCULATION at the request of Dr. Humera Syed for consultation. My final recommendation will be communicated back to the requesting physician by way of shared medical record or letter. Assessment Patient has the following medical conditions which may affect fletcher-operative course: GERD (gastroesophageal reflux disease) Assessment: Controlled with PPI Type 2 diabetes mellitus without retinopathy (HCC) Assessment: Complaint with Metformin Instructions provided to patient on how long to hold diabetic medications prior to procedure Hypertension Assessment: Controlled with medication management 172/77 in office today Patient has whitecoat syndrome Takes his blood pressure at home daily showed me the readings typically 100-120/60-70's Denies any chest pain, shortness of breath, headache, dizziness or lightheadedness Atrial fibrillation (HCC) Assessment: S/p ablation in 2016 at [facility] Redo ablation in October of this year with success No recurrence On metoprolol twice daily and diltiazem as rescue Anticoagulated on Eliquis RRR on exam today Follows with [place] CAD (coronary artery disease) Assessment: Stable Negative stress test in 2022 Denies any chest pain or shortness of breath On atorvastatin, metoprolol, and ranexa Dyslipidemia Assessment: Compliant with Statin AAA (abdominal aortic aneurysm) Assessment: Stable monitored by Cardiology ANESTHESIA FINDINGS: Intubation History: No history of difficult intubation Significant Anesthesia Considerations: none Airway History: No history of difficult airway Browne Activity Status Index: METS: Walk indoors, such as around the house (1.75 METs) Do light work around the house, such as dusting or washing dishes (2.70 METs) Take care of self; that is eating, dressing, bathing, using the toilet (2.75 METs) Walk a block or two on level ground (2.75 METs) Do moderate work around the house, such as vacuuming, sweeping floors, or carrying in groceries (3.50 METs) Climb a flight of stairs or walk up a hill (5.50 METs) DASI Score: 18.95 Patient denies any chest pain or undue shortness of breath with the above physical activity. STOP-Bang Score: Has or is being treated for high blood pressure Patient over 50 years old Male patient Denies snoring loudly Denies feeling tired, fatigued, or sleepy during the daytime Has not been observed to stop breathing or choking/gasping during sleep BMI less than or equal to 35 kg/m2 Does not have a large neck STOP-Bang Score: 3 [id number] Score: Age: 65-74 Sex: male CHF history: No Hypertension history: Yes Stroke/TIA/thromboembo lism history: No Vascular disease history: Yes Diabetes history: Yes [id number] Score: 4 ARISCAT Score: Age: 51-80 Preoperative SpO2: >=96% Respiratory infection in the last month: No Preoperative anemia: No Surgical incision: peripheral Duration of surgery: <2 hrs Emergency procedure: No ARISCAT Score: 3 Airway Exam: General: Normal appearance There is no height or weight on file to calculate BMI. Mallampati Score is CLASS II ULBT: Class II - Lower incisors can bite the upper lip below the ying line Neck: Normal appearance and function, Distance from hyoid to mentum during neck extension is at least 3 finger breaths Mouth: Normal tongue size and Mouth opening greater than 2 finger breaths Dentition: Intact and Bridge Airway History: No abnormal airway history Planned Anesthetic: Per anesthesia choice Prepared for surgery: This patient is optimally prepared for surgery. CONSULTS: Patient does not require consults for optimization at this time. The Following Tests/Procedures Have Been Initiated: Labs not indicated per [facility] protocol, EKG not indicated per [facility] protocol Planned Anesthetic: Per anesthesia choice Subjective CHIEF COMPLAINT: Visual Changes HPI: 64 year old year old presents today with complaints of difficulty with vision for ~ 1 year. Found to have cataract on exam. Denies pain. No relieving factors. PAST MEDICAL HISTORY Diagnosis Date Atrial fibrillation (HCC) 2013 CAD (coronary artery disease) 09/02/2014 Diabetes mellitus (HCC) Dyslipidemia Hypertension Macular degeneration Per Dr. Umanzor Metabolic syndrome PAST SURGICAL HISTORY Procedure Laterality Date AFIB PVI W/COMPL EP STUDY 07/10/2017 (more content not included)... Normal [facility] IOL BIOMETRY W/ IOL CALC OU (BOTH EYES)on 03-12-2025 [facility] Radiology Study observation (narrative) [facility] Office Visiton 03-04-2025 Follow-up visit [id number] Oracio Doherty is A 1960 M Date Provider Department Center 03/04/2025 [facility] Family History Problem Relation Age of Onset Coronary artery disease Father Atrial fibrillation Father Heart attack Brother Family Status - Relation Status Age at Mother Father Brother Level of Service:47123 OK OFFICE/OUTPATIENT ESTABLISHED MOD MDM 30 MIN Reason for Visit and Comments: Atrial Fibrillation [80] Hypertension [104349] Coronary Artery Disease [187] Normal [facility] No Panel Informationon 02-25 [facility] CBC w/ Auto Diffon 5 Basophils/100 WBC (Bld) 0.7 % Normal 0.0-2.0 [facility] Comment on above: Performed By: #### 2 [id number] #### [facility] [address] [place] [address] Basophils/Leukocytes Auto (Bld) [Pure # fraction] 0.0 E9/L Normal 0.0-0.2 [facility] Comment on above: Performed By: #### 2 [id number] #### [facility] [address] [place] [address] Eosinophils (Bld) [#/Vol] 0.1 E9/L Normal 0.0-0.5 [facility] Comment on above: Performed By: #### 2 [id number] #### [facility] [address] [place] [address] Eosinophils/100 WBC (Bld) 2.3 % Normal 0.0-8.0 [facility] Comment on above: Performed By: #### 2 [id number] #### [facility] [address] [place] [address] Erythrocyte distribution width (RBC) [Ratio] 14.5 % High 10.9-14.2 [facility] Comment on above: Performed By: #### 2 [id number] #### [facility] [address] [place] [address] Hematocrit (Bld) [Volume fraction] 39.8 % Normal 37.7-49.0 [facility] Comment on above: Performed By: #### 2 [id number] #### [facility] [address] [place] [address] Hemoglobin (Bld) [Mass/Vol] 13.8 g/dL Normal 13.5-17.5 [facility] Comment on above: Performed By: #### 2 [id number] #### [facility] [address] [place] [address] Lymphocytes (Bld) [#/Vol] 1.3 E9/L Normal 1.0-4.0 [facility] Comment on above: Performed By: #### 2 [id number] #### [facility] [address] [place] [address] Lymphocytes/100 WBC (Bld) 32.4 % Normal 14.0-50.0 [facility] Comment on above: Performed By: #### 2 [id number] #### [facility] [address] [place] [address] MCH (RBC) [Entitic mass] 30.8 pg Normal 27.0-34.0 [facility] Comment on above: Performed By: #### 2 [id number] #### [facility] [address] [place] [address] MCHC (RBC) [Mass/Vol] 34.7 g/dL Normal 31.4-36.0 [facility] Comment on above: Performed By: #### 2 [id number] #### [facility] [address] [place] [address] MCV (RBC) [Entitic vol] 88.6 fL Normal 80.0-100.0 [facility] Comment on above: Performed By: #### 2 [id number] #### [facility] [address] [place] [address] Monocytes (Bld) [#/Vol] 0.3 E9/L Normal 0.2-1.0 [facility] Comment on above: Performed By: #### 2 [id number] #### [facility] [address] [place] [address] Neutrophils (Bld) [#/Vol] 2.2 E9/L Normal 2.0-7.5 [facility] Comment on above: Performed By: #### 2 [id number] #### [facility] [address] [place] [address] Neutrophils/100 WBC (Bld) 55.7 % Normal 36.0-75.0 [facility] Comment on above: Performed By: #### 2 [id number] #### [facility] [address] [place] [address] Platelet mean volume (Bld) [Entitic vol] 9.7 fL Normal 6.4-10.8 [facility] Comment on above: Performed By: #### 2 [id number] #### [facility] [address] [place] [address] Platelets (Bld) [#/Vol] 119.0 E9/L Low 150.0-500.0 [facility] Comment on above: Performed By: #### 2 [id number] #### [facility] [address] [place] [address] RBC (Bld) [#/Vol] 4.5 E12/L Normal 4.3-5.9 [facility] Comment on above: Performed By: #### 2 [id number] #### [facility] [address] [place] [address] WBC corrected for nucl RBC Auto (Bld) [#/Vol] 3.9 E9/L Low 4.0-11.0 [facility] Comment on above: Performed By: #### 2 [id number] #### [facility] [address] [place] [address] CHEMISTRYOrdered By: SYSTEM SYSTEM on 02-11-2025 Albumin [Mass/Vol] 4.4 g/dL Normal 3.3 - 5.0 gm/dL [facility] Albumin/Globulin [Mass ratio] 2.3 {ratio} High 1.1 - 2.2 [facility] ALP [Catalytic activity/Vol] 53 [iU]/d Normal 21 - 98 Int._Unit/L [facility] ALT No additional P-5'-P [Catalytic activity/Vol] 32 [iU]/d Normal 6 - 46 Int._Unit/L [facility] Anion gap [Moles/Vol] 12 mmol/L Normal 6 - 16 mEq/L R [facility] AST [Catalytic activity/Vol] 26 [iU]/d Normal 5 - 43 Int._Unit/L [facility] Bilirubin [Mass/Vol] 2.5 mg/dL High 0.0 - 1 .1 mg/dL [facility] Calcium [Mass/Vol] 9.2 mg/dL Normal 8.9 - 11. 1 mg/dL [facility] Chloride [Moles/Vol] 101 mmol/L Normal 101 - 1 11 mmol/L [facility] Cholesterol [Mass/Vol] 92 mg/dL Low 120 - 200 mg/dL [facility] Cholesterol in HDL [Mass/Vol] 35 mg/dL Invalid Interpretation Code [facility] Comment on above: Result Comment: '>= 60 LOW RISK' '<= 40 HIGH RISK' Cholesterol in LDL [Mass/Vol] 48 mg/dL Normal <=129mg/dL [facility] Cholesterol in VLDL [Mass/Vol] 20 mg/dL Normal 7 - 40 mg/dL [facility] CO2 [Moles/Vol] 26 mmol/L Normal 21 - 31 mmol/L [facility] Creatinine [Mass/Vol] 0.7 mg/dL Normal 0.5 - 1.3 mg/dL [facility] eGFR 101 mL/min/1.73 m2 Normal >=59mL/mi n/1 .73 m2 [facility] Ferritin [Mass/Vol] 71 ng/mL Normal 24 - 336 ng/mL [facility] Globulin (S) [Mass/Vol] 1.9 g/dL Normal 1.4 - 4.0 gm/dL [facility] Glucose [Mass/Vol] 124 mg/dL Normal 55 - 199 mg/dL [facility] Iron [Mass/Vol] 131 ug/dL Normal 35 - 153 mcg/dL [facility] Iron binding capacity [Mass/Vol] 343 ug/dL Normal 250 - 400 mcg/dL [facility] Iron saturation [Mass fraction] 38 % Normal 20 - 50 % [facility] Potassium [Moles/Vol] 5.0 mmol/L Normal 3.5 - 5.3 mmol/L [facility] Prostate specific Ag [Mass/Vol] 0.6 ng/mL Normal 0.1 - 3.5 ng/mL [facility] Comment on above: Interpretive Data: T he concentration of PSA determined by different manufacturers can vary due to differences in assay methods and reagent specificity. Values obtained from different assay methods cannot be used interchangeably. The methodology used for this result was chemiluminescence using [email or web address] Access Hybr[employer]ch PSA reagent. Protein [Mass/Vol] 6.3 g/dL Normal 6.0 - 7.8 gm/dL [facility] Sodium [Moles/Vol] 134 mmol/L Low 135 - 145 mmol/L [facility] Transferrin [Mass/Vol] 245 mg/dL Normal 200 - 370 mg/dL [facility] Triglyceride [Mass/Vol] 101 mg/dL Normal <=149mg/dL [facility] Urea nitrogen [Mass/Vol] 13 mg/dL Normal 5 - 21 mg/dL [facility] Urea nitrogen/Creatinine [Mass ratio] 19 mg/mg Normal 10 - 20 [facility] CHEMISTRYOrdered By: Melyssa Damon on 02-11-2025 Albumin DL <= 20 mg/L (U) [Mass/Vol] mg/dL Normal 0.0 - 1.9 mg/dL [facility] Albumin/Creatinine DL <= 20 mg/L (U) [Mass ratio] NOT CALCULATED Invalid Interpretation Code 0.0 - 30.0 [facility] Comment on above: Interpretive Data: 3 0-300 mg/g Cr indicates an increased risk for diabetic nephropathy. >300 mg/g Cr is consistent with clinical nephropathy. U Creatinine 16.8 mg/dL Invalid Interpretation Code [facility] CHEMISTRYOrdered By: Rosalee Norton on 02-11-2025 HbA1c (Bld) [Mass fraction] 6.8 % High <=5.9% [facility] ChemAutoSS CMPon 02-11-2025 Albumin [Mass/Vol] 4.4 g/dL Normal 3.3-5.0 [facility] Comment on above: Performed By: #### 2 [id number] #### [facility] [address] [place] [address] Albumin/Globulin (S) [Mass conc ratio] 2.3 High 1.1-2.2 [facility] Comment on above: Performed By: #### 2 [id number] #### [facility] [address] [place] [address] ALP [Catalytic activity/Vol] 53 Int._Unit/L Normal 21-98 [facility] Comment on above: Performed By: #### 2 [id number] #### [facility] [address] [place] [address] ALT No additional P-5'-P [Catalytic activity/Vol] 32 Int._Unit/L Normal 6-46 [facility] Comment on above: Performed By: #### 2 [id number] #### [facility] [address] [place] [address] Anion gap [Moles/Vol] 12 mmol/L Normal 6-16 [facility] Comment on above: Performed By: #### 2 [id number] #### [facility] [address] [place] [address] AST [Catalytic activity/Vol] 26 Int._Unit/L Normal 5-43 [facility] Comment on above: Performed By: #### 2 [id number] #### [facility] [address] [place] [address] Bilirubin [Mass/Vol] 2.5 mg/dL High 0.0-1.1 [facility] Comment on above: Performed By: #### 2 [id number] #### [facility] [address] [place] [address] Calcium [Mass/Vol] 9.2 mg/dL Normal 8.9-11.1 [facility] Comment on above: Performed By: #### 2 [id number] #### [facility] [address] [place] [address] Chloride [Moles/Vol] 101 mmol/L Normal 101-111 [facility] Comment on above: Performed By: #### 2 [id number] #### [facility] [address] [place] [address] CO2 [Moles/Vol] 26 mmol/L Normal 21-31 [facility] Comment on above: Performed By: #### 2 [id number] #### [facility] [address] [place] [address] Creatinine [Mass/Vol] 0.7 mg/dL Normal 0.5-1.3 [facility] Comment on above: Performed By: #### 2 [id number] #### [facility] [address] [place] [address] Globulin (S) [Mass/Vol] 1.9 g/dL Normal 1.4-4.0 [facility] Comment on above: Performed By: #### 2 [id number] #### [facility] [address] [place] [address] Glucose [Mass/Vol] 124 mg/dL Normal 55-199 [facility] Comment on above: Performed By: #### 2 [id number] #### [facility] [address] [place] [address] Potassium [Moles/Vol] 5.0 mmol/L Normal 3.5-5.3 [facility] Comment on above: Performed By: #### 2 [id number] #### [facility] [address] [place] [address] Protein [Mass/Vol] 6.3 g/dL Normal 6.0-7.8 [facility] Comment on above: Performed By: #### 2 [id number] #### [facility] [address] [place] [address] Sodium [Moles/Vol] 134 mmol/L Low 135-145 [facility] Comment on above: Performed By: #### 2 [id number] #### [facility] [address] [place] [address] Urea nitrogen [Mass/Vol] 13 mg/dL Normal 5-21 [facility] Comment on above: Performed By: #### 2 [id number] #### [facility] [address] [place] [address] Urea nitrogen/Creatinine [Mass ratio] 19 No Units Normal 10-20 [facility] Comment on above: Performed By: #### 2 [id number] #### [facility] [address] [place] [address] Ferritinon 02-11-2025 Ferritin [Mass/Vol] 71 ng/mL Normal 24-336 [facility] Comment on above: Performed By: #### 2 [id number] #### [facility] [address] [place] [address] HEMATOLOGYOrdered By: SYSTEM SYSTEM on 02-11-2025 Basophils/100 WBC (Bld) 0.7 % Normal 0.0 - 2.0 % [facility] Basophils/Leukocytes Auto (Bld) [Pure # fraction] 0.0 E9/L Normal 0.0 - 0.2 E9/L [facility] Eosinophils (Bld) [#/Vol] 0.1 E9/L Normal 0.0 - 0.5 E9/L [facility] Eosinophils/100 WBC (Bld) 2.3 % Normal 0.0 - 8.0 % [facility] Erythrocyte distribution width (RBC) [Ratio] 14.5 % High 10.9 - 14.2 % [facility] Hematocrit (Bld) [Volume fraction] 39.8 % Normal 37.7 - 49.0 % [facility] Hemoglobin (Bld) [Mass/Vol] 13.8 g/dL Normal 13.5 - 17.5 gm/dL [facility] Lymphocytes (Bld) [#/Vol] 1.3 E9/L Normal 1.0 - 4.0 E9/L [facility] Lymphocytes/100 WBC (Bld) 32.4 % Normal 14.0 - 50.0 % [facility] MCH (RBC) [Entitic mass] 30.8 pg Normal 27.0 - 34.0 pg [facility] MCHC (RBC) [Mass/Vol] 34.7 g/dL Normal 31.4 - 36.0 gm/dL [facility] MCV (RBC) [Entitic vol] 88.6 fL Normal 80.0 - 100.0 fL [facility] Monocytes (Bld) [#/Vol] 0.3 E9/L Normal 0.2 - 1.0 E9/L [facility] Monocytes/100 WBC (Bld) 8.9 % Normal 4.0 - 14.0 % [facility] Neutrophils (Bld) [#/Vol] 2.2 E9/L Normal 2.0 - 7.5 E9/L [facility] Neutrophils/100 WBC (Bld) 55.7 % Normal 36.0 - 75.0 % [facility] Platelet mean volume (Bld) [Entitic vol] 9.7 fL Normal 6.4 - 10.8 fL [facility] Platelets (Bld) [#/Vol] 119.0 E9/L Low 150.0 - 500.0 E9/L [facility] RBC (Bld) [#/Vol] 4.5 E12/L Normal 4.3 - 5.9 E12/L [facility] WBC corrected for nucl RBC Auto (Bld) [#/Vol] 3.9 E9/L Low 4.0 - 11.0 E9/L [facility] [id number] 02-11-2025 HbA1c (Bld) [Mass fraction] 6.8 % High <=5.9 [facility] Comment on above: Performed By: #### 7 [id number] #### [facility] [address] [place] [address] Ironon 02-11-2025 Iron [Mass/Vol] 131 microgram/dL Normal 35-153 [facility] Comment on above: Performed By: #### 2 [id number] #### [facility] [address] [place] [address] Iron Saturationon 02-11-2025 Iron binding capacity [Mass/Vol] 343 microgram/dL Normal 250-400 [facility] Comment on above: Performed By: #### 2 [id number] #### [facility] [address] [place] [address] Iron saturation [Mass fraction] 38 % Normal 20-50 [facility] Comment on above: Performed By: #### 2 [id number] #### [facility] [address] [place] [address] Lipid Panelon 02-11-2025 Cholesterol [Mass/Vol] 92 mg/dL Low 120-200 [facility] Comment on above: Performed By: #### 2 [id number] #### [facility] [address] [place] [address] Cholesterol in HDL [Mass/Vol] 35 mg/dL Invalid Interpretation Code [facility] Comment on above: Result Comment: '>= 60 LOW RISK' '<= 40 HIGH RISK' Performed By: #### 2 [id number] #### [facility] [address] [place] [address] Cholesterol in LDL [Mass/Vol] 48 mg/dL Normal <=129 [facility] Comment on above: Performed By: #### 2 [id number] #### [facility] [address] [place] [address] Cholesterol in VLDL [Mass/Vol] 20 mg/dL Normal 7-40 [facility] Comment on above: Performed By: #### 2 [id number] #### [facility] [address] [place] [address] Triglyceride [Mass/Vol] 101 mg/dL Normal <=149 [facility] Comment on above: Performed By: #### 2 [id number] #### [facility] [address] [place] [address] PSA Screen, Totalon 02-12-20 25 Prostate specific Ag [Mass/Vol] 0.6 ng/mL Normal 0.1-3.5 [facility] Comment on above: Result Comment: The concentration of PSA determined by different manufacturers can vary due to differences in assay methods and reagent specificity. Values obtained from different assay methods cannot be used interchangeably. The methodology used for this result was chemiluminescence using [employer]'s Access Hybrite[employer] PSA reagent. Performed By: #### 1 [id number] #### [facility] [address] [place] [address] Transferrinon 02-11-2025 Transferrin [Mass/Vol] 245 mg/dL Normal 200-370 [facility] Comment on above: Performed By: #### 2 [id number] #### [facility] [address] [place] [address] U MA/Cr Ratioon 02-11-2025 Albumin DL <= 20 mg/L (U) [Mass/Vol] mg/dL Normal 0.0-1.9 [facility] Comment on above: Performed By: #### 1 [id number] #### [facility] [address] [place] [address] Albumin/Creatinine DL <= 20 mg/L (U) [Mass ratio] NOT CALCULATED Invalid Interpretation Code .0-30.0 [facility] Comment on above: Result Comment: 30-3 00 mg/g Cr indicates an increased risk for diabetic nephropathy. >300 mg/g Cr is consistent with clinical nephropathy. Performed By: #### 1 [id number] #### [facility] [address] [place] [address] U Creatinine 16.8 mg/dL Invalid Interpretation Code [facility] Comment on above: Performed By: #### 1 [id number] #### [facility] [address] [place] [address] eGFRon 02-11-2025 eGFR 101 mL/min/1.73 m2 Normal >=59 [facility] Comment on above: Performed By: #### 1 [id number] #### [facility] [address] [place] [address] Ambulatory Visit Summaryon 0 02-10-2025 Ambulatory Visit Summary Ambulatory Visit Summary MARCELLE DOHERTY :1960 Visit Date:01/30/2025 Ambulatory Visit Instructions Your Diagnosis Encounter for subsequent annual wellness visit (AWV) in Medicare patient Longstanding persistent atrial fibrillation Type 2 diabetes mellitus with hyperlipidemia Controlled type 2 diabetes mellitus without complication, without long-term current use of insulin AAA (abdominal aortic aneurysm) BPH (benign prostatic hyperplasia) Microcytic anemia Mixed hyperlipidemia Primary hypertension Flu vaccine refused Overweight These Are Your Goals Complications of CAD [...] balanced diet - Progressing Review educational material - Done Take Medications as Prescribed - Progressing Exacerbations, [...] MD. Primary Care Physician - Ursula Love MD This Is Your Medications List Misc Prescription (One Touch Ultra 2 Test Strips) Misc Prescription (lancets) Misc Prescription (lancets) amlodipine (amLODIPine 5 mg Tab) apixaban (Eliquis) atorvastatin (atorvastatin 80 mg Tab) clonidine (cloNIDine [...] 500 mg oral ER Tab) Procedures Performed Cardiac ablation system (11/13/2024), Colonoscopy (09/20/2023), Cardiac catheterization, Rotator cuff repair, Tear of biceps tendon, Tonsillectomy. Discharge Vitals Heart Rate (Peripheral) 64 Blood Pressure 100/68 Height 179 cm Height 70 in Weight 81.7 kg Weight 180.117 lb BMI 25.5 What to do next Scheduled Follow-Up Appointments Monday 10:00 AM EDT With: Where: [address] [id number] 2024 2:00 PM EDT With: Bharath Melton DO Where: [facility] 2024 2:15 PM EDT With: Where: [facility] 2024 2:15 PM EDT With: Where: [facility] 2024 11:00 AM EDT With: Ursula Love MD Where: [address] [id number]- Monday2025 11:00 AM EDT With: Where: [address] [address]- You Need to Complete the Following HgbA1c, Blood, Routine collect, 01/30/25, Order for future visit, Lab Collect, Type 2 diabetes mellitus with hyperlipidemia 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 Lipid Panel, Blood, Routine collect, 01/30/25, Order for future visit, Lab Collect, Mixed hyperlipidemia, Required & Missing, Print Label By Order Location Microalbumin Level (more content not included)... Normal [facility] Family Medicine Office/Clini c Noteon 02-10-2025 Family Medicine Office/Clinic Note Family Medicine Office/Clinic Note Chief Complaint Subsequent Medicare Wellness History of Present Illness Covid-19, MERS, Ebola Screen *Contact With Person With Highly Contagious Disease Like Ebola/MERS/COVID-19 AND Have One or More of the Symptoms Below : No *Travel to a Country With Wide-Spread Ebola/MERS/COVID-19 in the Past 21 Days AND Have One or More of the Symptoms Below : No *Verify Droplet, Contact Precautions for Ebola (Reference for CDC) : N/A *Verify Airborne, Droplet Precautions for MERS/COVID-19 : N/A Alessia Reina MA - 01/30/2025 9:18 EDT Summary Chief Complaint : 6m follow up Preferred Lab : [facility] Preferred Rad : [facility] Patient Counseled : Nutrition, Physical activity, Elevated BMI Height in Inches : 70 in Height/Length Measured : 179 cm(Converted to: 5 ft 10 in, 70.47 in) Weight Measured : 81.7 kg(Converted to: 180 lb 2 Ounces, 180.118 lb) Body Mass Index Measured : 25.5 kg/m2 Change in Weight : 2 Weight in Pounds : 180.117 lb Change in Weight (pounds) : 4 Systolic Blood Pressure : 180 mmHg (HI) Diastolic Blood Pressure : 92 mmHg (HI) Blood Pressure Location : Left arm Blood Pressure Position : Sitting Peripheral Pulse Rate : 64 bpm Respiratory Rate : 18 br/min SpO2 : 97 % Temperature Tympanic : 36.8 DegC(Converted to: 98.2 DegF) Pain Present : No actual or suspected pain Alessia Reina MA - 01/30/2025 9:18 EDT Patient Preferred Method of Communication No Preference Depression Screening Little Interest, Pleasure in Activities (ref) : Not at all Feeling Down, Depressed, Hopeless : Not at all Thoughts of Harming Self or Others : No Initial Depression Screening Score : 0 SCORE Depression Screening Result : Negative Alessia Reina MA M - 01/30/2025 9:18 EDT Procedures / Surgeries - Procedure History (As Of: 01/30/2025 09:23:25 EDT) Anesthesia Minutes: 0 ; Procedure Name: Rotator cuff repair ; Procedure Minutes: 0 ; Last Reviewed Dt/Tm: 01/30/2025 09:19:33 EDT Anesthesia Minutes: 0 ; Procedure Name: Tonsillectomy ; Procedure Minutes: 0 ; Last Reviewed Dt/Tm: 01/30/2025 09:19:33 EDT Anesthesia Minutes: 0 ; Procedure Name: Cardiac catheterization ; Procedure Minutes: 0 ; Last Reviewed Dt/Tm: 01/30/2025 09:19:33 EDT Anesthesia Minutes: 0 ; Procedure Name: Tear of biceps tendon ; Procedure Minutes: 0 ; Last Reviewed Dt/Tm: 01/30/2025 09:19:33 EDT Anesthesia Minutes: 0 ; Procedure Name: Cardiac ablation system ; Procedure Minutes: 0 ; Last Reviewed Dt/Tm: 01/30/2025 09:19:33 EDT Procedure Dt/Tm: 09/20/2023 ; Provider: Jose Luis THOMAS MD; Anesthesia Minutes: 0 ; Procedure Name: Colonoscopy ; Procedure Minutes: 0 ; Last Reviewed Dt/Tm: 01/30/2025 09:19:33 EDT Social History FT Social History (As Of: 01/30/2025 09:23:25 EDT) Alcohol: Current. Beer. 3-5 times per week. (Last Updated: 07/31/2024 20:16:06 [facility] by Justin Nichols) Tobacco: No Risk Former smoker, quit more than 30 days ago Tobacco Use:. Never Smokeless Tobacco Use:. Cigarettes, Household tobacco concerns: No. Yes Comments: 12/18/2023 14:33 - Christian Hernandez R: quit age 53 (39 pack years) 12/19/2022 9:55 - Yaakov PADILLA-ELAINE, Brooke Killian: Quit in 2013 after [place] (Last Updated: 01/30/2025 09:20:11 EDT by Alessia Reina MA) Substance Abuse: No Risk Never. (Last Updated: 07/31/2024 20:16:06 [facility] by Justin Nichols) Employment/School: Employed, Work/School description: [employer]. Highest education level: High school. 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 equipment: No. (Last Updated: 09/02/2014 10:01:08 EST by Lawrence Don RN) Family History Family History (As Of: 01/30/2025 09:23:25 EDT) Mother: Relation: Mother ; Gender: Female ; Nomenclature: Heart failure ; Value: Positive Brother: Relation: Brother ; Gender: Male ; Nomenclature: Acute myocardial infarction ; Value: Positive Lawrence Fall Risk History of Fall in Last 3 Months Lawrence : No Presence of Secondary Diagnosis Lawrence : No Use of Ambulatory Aid Lawrence : None, bedrest, wheelchair, nurse IV/Heparin Lock Fall Risk Lawrence : No Gait Weak or Impaired Fall Risk Lawrence : Normal, bedrest, immobile Mental Status Fall Risk Lawrence : Oriented to own ability Lawrence Fall Risk Score : 0 Alessia Reina MA - 01/30/2025 9:18 EDT Social Determinants (PRAPARE) What is your housing situation today? : I have housing You or Family Gone Without Household Needs Past Year : No No Transport to Med Appts/Meetings/Work/Me ds/Necessities : No Currently Live in Physical and Emotional Safety : Yes Social Determinants (PRAPARE) Info RTF : Social Determinants (PRAPARE) Housing Situation Today: I have housing (01/25/25) Live in Physical and Emotional Safety: Yes (01/25/25) No Transport Med Appt/Med/Work/Necessit y: No (01/25/25) Alessia Reina MA - 01/30/2025 9:18 EDT Medication History Medication History Progress Note : JOCELYN Chapa (more content not included)... 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 Primary Care Physician - Ursula Love MD This Is Your Medications List Misc Prescription (One Touch Ultra 2 Test Strips) Misc Prescription (lancets) Misc Prescription (lancets) amlodipine (amLODIPine 5 mg Tab) apixaban (Eliquis) atorvastatin (atorvastatin 80 mg Tab) clonidine (cloNIDine [...] 500 mg oral ER Tab) Procedures Performed Cardiac ablation system (11/13/2024), Colonoscopy (09/20/2023), Cardiac catheterization, Rotator cuff repair, Tear of biceps tendon, Tonsillectomy. Discharge Vitals Temperature (Tympanic) 36.8 ???C Heart Rate (Peripheral) 64 Respiratory Rate 18 Blood Pressure 100/68 Height 70 in Height 179 cm Weight 180.117 lb Weight 81.7 kg BMI 25.5 What to do next Scheduled Follow-Up Appointments Monday 10:00 AM EDT With: Where: [address] [address]- 2024 2:00 PM EDT With: Bharath Melton DO Where: Oncology 2024 2:15 PM EDT With: Where: Oncology 2024 2:15 PM EDT With: Where: Oncology 2024 11:00 AM EDT With: Ursula Love MD Where: [address] [address]- Medications What How Much When Instructions Unchanged amlodipine (amLODIPine 5 mg Tab) By Mouth Every day Unchanged apixaban (Eliquis) 5 Milligram By Mouth 2 times a day Unchanged atorvastatin (atorvastatin 80 mg Tab) [...] morning) Unchanged lisinopril (lisinopril 20 mg Tab) See instructions TAKE 1 TABLET DAILY Unchanged metformin (metformin 500 mg Tab) See instructions TAKE 2 TABLETS TWICE A DAY Unchanged metoprolol (Toprol XL 100 mg Tab-ER) 2 Tablets By Mouth Every day Unchanged Misc Prescription (lancets) See instructions use lancet to monitor BS daily- E11.9 Unchanged Misc Prescription (lancets) See instructions use lancet to monitor BS once daily- E11.9 Unchanged Misc Prescription (One Touch Ultra 2 Test Strips) See instruction (more content not included)... Normal [facility] Family Medicine Office/Clini c Noteon 01-30-2025 Family Medicine Office/Clinic Note Family Medicine Office/Clinic Note Chief Complaint 6m follow up Medicare wellness visit for management of multiple chronic conditions HPI Staff 6m follow up Patient is here for follow up on hypertension. How often are you checking your blood pressure? _yes What are your average readings? _110/70 Yearly BMP: _ BUN: 13 mg/dL (09/04/24 10:46:00) Calcium Lvl: 9.4 mg/dL (09/04/24 10:46:00) Chloride: 99 mmol/L Low (09/04/24 10:46:00) CO2: 28 mmol/L (09/04/24 10:46:00) Creatinine: 0.8 mg/dL (09/04/24 10:46:00) eGFR: 97 mL/min/1.73 m2 (09/04/24 10:46:00) Glucose Lvl: 121 mg/dL (09/04/24 10:46:00) Potassium Lvl: 4.4 mmol/L (09/04/24 10:46:00) Sodium Lvl: 135 mmol/L (09/04/24 10:46:00) Elevated BP today in office. Pt attributes this to white coat syndrome. Does have pictures of his BP that was taken this morning at home. Patient is here for follow up on hyperlipidemia: Do you have side effects from the medication? no Refill needed?: _no Yearly Lipid labs: _ Chol: 118 mg/dL Low (12/18/23 14:20:00) HDL: 37 mg/dL (12/18/23 14:20:00) LDL Direct: 72 mg/dL (12/18/23 14:20:00) Tri mg/dL (12/18/23 14:20:00) VLDL: 22 mg/dL (12/18/23 14:20:00) Hip pain? Still getting injections from pain management. Today's pain is 1/10. [employer] Etl Developer divina WILLIAM. Has been monitoring BS levels. Averaging 167 for the past 9 days. No refills needed at this time. History of Present Illness - The patient is a 64-year-old male presenting with a Medicare wellness visit and management of atrial fibrillation and other chronic conditions. - Atrial fibrillation is stable. - Hypertension is managed with amlodipine. White coat syndrome suspected. - Diabetes mellitus managed, A1c at 7.3. Occasional hyperglycemia noted. - Microcytic anemia, CBC needed for low platelet counts. - Non-smoker. - Recent [place] vacation for two weeks. - Discussed management strategy for type 2 diabetes focusing on diet and exercise rather than increased medication. - Recommended monitoring blood pressure due to suspected office-related elevations (white coat syndrome). Review of Systems PHQ Score Initial Depression Screen Score: 0 SCORE Physical Exam Vitals & Measurements T: 36.8 ???C(Tympanic) HR: 64(Peripheral) RR: 18 BP: 100/68 SpO2: 97% HT: 70 in HT: 179 cm WT: 180.117 lb WT: 81.7 kg BMI: 25.5 General: alert, no acute distress ENMT: oral mucosa moist Cardiovascular: Irregular rate and rhythm due to AFib, normal peripheral perfusion Respiratory: Lungs clear to auscultation, respirations non labored Extremities: no deformity, no trauma Neurological: oriented x 4, level of consciousness appropriate for age, CN II-XII intact, motor strength equal & normal bilaterally, speech normal Abdomen: Soft, Non-tender, Non-distended, + Bowel sounds Assessment/Plan 1. Type 2 diabetes mellitus with hyperlipidemia (E11.69: Type 2 diabetes mellitus with other specified complication) - Emphasize diet/exercise, monitor glucose. - A1c checked in two weeks. Ordered: HgbA1c Lipid Panel Microalbumin Level Urine Urine Microalbumin/Creatinin e Ratio 2. 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 Thrombocytopenia (D69.6: Thrombocytopenia, unspecified) Will recheck Ordered: HgbA1c Lipid Panel Microalbumin Level Urine Urine Microalbumin/Creatinin e Ratio 4. Controlled type 2 diabetes mellitus without complication, without long-term current use of insulin (E11.9: Type 2 diabetes mellitus without complications) - As per number 1. Ordered: HgbA1c Lipid Panel Microalbumin Level Urine Urine Microalbumin/Creatinin e Ratio 5. Longstanding persistent atrial fibrillation (I48.11: Longstanding persistent atrial fibrillation) - Monitor as stable. Ordered: HgbA1c Lipid Panel Microalbumin Level Urine Urine Microalbumin/Creatinin e Ratio 6. Primary hypertension (I10: Essential (primary) hypertension) - Consider pre-visit amlodipine, monitor BP variability. Ordered: HgbA1c Lipid Panel Microalbumin Level Urine Urine Microalbumin/Creatinin e Ratio 7. Mixed hyperlipidemia (E78.2: Mixed hyperlipidemia) - Continue on a statin. Ordered: HgbA1c Lipid Panel Microalbumin Level Urine Urine Microalbumin/Creatinin e Ratio 8. CAD in [place] artery (I25.10: Atherosclerotic heart disease of [place] coronary artery without angina pectoris) - Denies CP - See Cardiology Ordered: HgbA1c Lipid Panel Microalbumin Level Urine Urine Microalbumin/Creatinin e Ratio 9. Microcytic anemia (D50.9: Iron deficiency anemia, unspecified) - CBC for platelet evaluation. Ordered: HgbA1c Lipid Panel Microalbumin Level Urine Urine Microalbumin/Creatinin e Ratio 10. Non-smoker (Z78.9: Oth (more content not included)... Normal [facility] Comment on above: Result Comment: Elec tronically Signed By: Ursula Love MD\.br\Date and Time Signed: 01/30/25 09:56 EDT Pre-Visit Planningon 025 Pre-Visit Planning Pre-Visit Planning From: Yolanda Ware To: Ursula Love MD; Sent: 01/29/2025 10:22:37 EDT Subject: Pre-Visit Planning Due Date/Time: 01/29/2025 10:22:00 EDT Caller Name: MARCELLE DOHERTY; Caller Number: Dionne , M Tn Dr. Love. During a pre-visit planning chart review, I noted the following abnormal lab value documented in the medical record: Platelets- In response to this query, please document the significance of the abnormal lab or clarify which diagnosis or condition this result may be associated with. I can update the Chronic Problem List with your response if you would like. -Additional Comments: ___ -Thrombocytopenia In responding to this request, please exercise your independent professional judgment. The fact that a question is asked does not imply that any particular answer is desired or expected. If you have any questions, please feel free to contact me at extension [phone]. Thank you! Yolanda Ware LPN [employer] [place] [address] Extension: [phone] [email or web address] From: Ursula Love MD To: Yolanda Ware; Sent: 01/29/2025 15:44:35 EDT Subject: RE: Pre-Visit Planning Caller Name: MARCELLE DOHERTY; Caller Number: Dionne , M -Thrombocytopenia Normal [facility] 01-24-20 [facility] Case Information Case Priority: None Programs: -- Referral Source: International Tax Manager Referral Reason: Disease management Case Type: Chronic Care Management Risk Score: -- Case Status: Active (December 28, 2023) Date Assigned: December 19, 2023 Assigned By: Christian Hernandez Date Enrolled: December 28, 2023 Assigned Primary Personnel: Christian Hernandez Assigned Secondary Personnel: -- Case Physician: Ursula Love MD Problems Ongoing AAA (abdominal aortic aneurysm) Aortic aneurysm BMI 28.0-28.9,adult BPH (benign prostatic hyperplasia) CAD in [place] artery Controlled type 2 diabetes mellitus without [...] Tab, 120 mg= 1 tab(s), Oral, qAM lancets, See Instructions lancets, See Instructions, 1 refills lisinopril 20 mg Tab, See Instructions, 1 [...] Verbally agreed to receive [facility] services CCM Written Consent Written consent in progress CCM Verbal Consent By Self 12/28/23 07:00:00 Result Name Value Comment HIPPA Verified Type of Contact In person at home CM Preferred Spoken Language Swiss CM Preferred Written Language Swiss Preferred Communication Mode Verbal Ability to Read/Write Able to read, Able to write Preferred Salutation Preferred Method of Contact Cell Cell Phone [phone] Best Time to Visit or Contact 7-10 am Best Day to Visit or Contact No preference Appointment Reminders Patient portal, Other secured messaging Preferred Way to Send PHI Patient portal Preferred Mailing Address [address] [place] [address], [address] Learning Style Pref Patient Verbal explanation Learning [...] Shares bed Support System Spouse/Significant other 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 Normal [facility] Follow-Upon 12-26-2024 Follow-Up [id number] Oracio Doherty is A 1960 Date Provider Department Center 12/26/2024 [id number] DEVLIN [facility] Family History Problem Relation Age of Onset Coronary artery disease Father Atrial fibrillation Father Heart attack Brother Family Status - Relation Status Age at Father Brother Level of Service:00380 OK OFFICE/OUTPATIENT ESTABLISHED MOD MDM 30 MIN Reason for Visit and Comments: Atrial Fibrillation [80] Normal [facility] Telephoneon 11-22-2024 Telephone [id number] Lim is A 1960 Date Provider Department Center 11/22/2024 Beni[facility] Family History Problem Relation Age of Onset Coronary artery disease Father Atrial fibrillation Father Heart attack Brother Family Status - Relation Status Age at Father Brother Reason for Visit and Comments: week f/u post ablation [Other] Normal [facility] [place] [facility] - [facility] Reason for visit: Afib 11/14/24 Pt here for Afib ablation 10/01/24 Patient here for H&P prior to afib ablation scheduled on 10/03/2024. Denies chest pain, SOB, and bleeding on Eliquis. Prior HPI: Marcelle Doherty is a 64 y.o. year old with past medical history of CAD with DIRECTOR CLIENT SERVICES of the RCA and a 70% ostial D1 lesion, diabetes mellitus type 2, hypertension AAA has been previously seen by Dr. PHAN. There is a history of prior A-fib ablation done at [facility] on 07/10/2017 by and was noted to have atrial flutter subsequently which was converted by cardioversion to sinus rhythm on 07/28/2017. Since then he has been following up with Jannet Gonzalez at [facility]. He is currently maintained on metoprolol [...] and is quite symptomatic with this. His [id number] score is 3 with risk factors of [...] Rhythm: reg (more content not included)... Normal [facility] NURSNOTEon 11-14-2024 NURSNOTE Bob catheter remov ed per order. Patient tolerated well. No bleeding [...] slowly getting dressed and ready for discharge. [facility] NURSNOTE Received report from JENNIFER Davis. Patient has been flat for the 2 hour specified time and has been sitting upright at HOB 30. No bleeding noted at site, no swelling or tenderness. Patient is alert, oriented, eating crackers and drinking water, speaking with family. Will wait for another check before removing bob catheter and allowing patient to discharge per order. [facility] SAINOTE Grill Associate reviewed AVS with patient and at bedside, all questions answered. Patient signed AVS, copy given to . Normal [facility] POCT GLUCOSE METER UNSOLICIT ED RESULTSon 11-14-2024 Glucose [Mass/Vol] 134 mg/dL High 70-105 [facility] Comment on above: Order Comment: Waive d Testing in the ED is performed under the ED CLIA certificate #[id number]. Result Comment: dspe ars Performed By: #### L [id number] ####[facility] (BEAKER)[address] [place] [address] Glucose [Mass/Vol] 150 mg/dL High 70-105 [facility] Comment on above: Order Comment: Waive d Testing in the ED is performed under the ED CLIA certificate #[id number]. Result Comment: oneida fer2 Performed By: #### L [id number] ####[facility] ([employer])[address] [place] [address] PROTIME-INRon 11-14-2024 INR IN PPP BY COAGULATION ASSAY 1.06 Normal 0.90-1.[address] [facility] Comment on above: Result Comment: ACCC [...] CHEST 1995;[id number]. Performed By: #### L [id number] ####[facility] ([employer])[address] [place] [address] PROTHROMBIN TIME (PT) IN PPP BY COAGULATION ASSAY 13.8 Seconds Normal 12.3-14.[address] [facility] Comment on above: Performed By: #### L [id number] ####[facility] ([employer])[address] [place] [address] Prep for Procedureon 11-14- 025 Prep for Procedure [id number] Oracio Doherty is A 1960 M Date Provider Department Center 11/14/2024 [facility] Family History Problem Relation Age of Onset Coronary artery disease Father Atrial fibrillation Father Heart attack Brother Family Status - Relation Status Age at Father Brother Normal [facility] Anesthesiaon 10-03-2024 Anesthesia [id number] Oracio Doherty is A 1960 M Date Provider Department Center 10/03/2024 [id number] [place] [facility] Family History Problem Relation Age of Onset Coronary artery disease Father Atrial fibrillation Father Heart attack Brother Family Status - Relation Status Age at Father Brother Normal [facility] Office Visiton 10-01-2024 Follow-up visit [id number] Oracio Doherty is A 1960 M Date Provider Department Center 10/01/2024 [id number][id number] Family History Problem Relation Age of Onset Coronary artery disease Father Atrial fibrillation Father Heart attack Brother Family Status - Relation Status Age at Father Brother Level of Service:02912 OK OFFICE/OUTPATIENT ESTABLISHED MOD MDM 30 MIN Normal [facility] 09-27-20 [facility] Case Information Case Priority: None Programs: -- Referral Source: International Tax Manager Referral Reason: Disease management Case Type: Chronic Care Management Risk Score: -- Case Status: Active (December 28, 2023) Date Assigned: December 19, 2023 Assigned By: Christian Hernandez Date Enrolled: December 28, 2023 Assigned Primary Personnel: Christian Hernandez Assigned Secondary Personnel: -- Case Physician: Km NIELSON, Ursula Leos Ongoing AAA (abdominal aortic aneurysm) Aortic aneurysm BMI 28.0-28.9,adult BPH (benign prostatic hyperplasia) CAD in [place] artery Controlled type 2 diabetes mellitus without [...] Result Name Value Comment [facility] Program Enrollment Verbally agreed to receive [facility] services CCM Written Consent Written consent in progress CCM Verbal Consent By Self 12/28/23 07:00:00 Result Name Value Comment HIPPA Verified Type of Contact In person at home CM Preferred Spoken Language Swiss CM Preferred Written Language Swiss Preferred Communication Mode Verbal Ability to Read/Write Able to read, Able to write Preferred Salutation Mr. 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 Normal [facility] Prep for Procedureon 024 Prep for Procedure [id number] Oracio Doherty is A 1960 M Date Provider Department Center 09/11/2024 1987-[facility] Family History Problem Relation Age of Onset Coronary artery disease Father Atrial fibrillation Father Heart attack Brother Family Status - Relation Status Age at Father Brother Normal [facility] Office Visiton 09-10-2024 Follow-up visit [id number] Lim is A 1960 M Date Provider Department Center 09/10/2024 [address] [facility] Family History Problem Relation Age of Onset Coronary artery disease Father Atrial fibrillation Father Heart attack Brother Family Status - Relation Status Age at Father Brother Level of Service:02658 [place] OFFICE/OUTPATIENT ESTABLISHED LOW MDM 20 MIN Reason for Visit and Comments: Follow-up [470636] - A Fib management Normal [facility] CBC w/ Auto Diffon 4 Basophils/100 WBC (Bld) 0.6 % Normal 0.0-2.0 [facility] Comment on above: Performed By: #### 2 [id number] #### [facility] [address] [place] [address] Basophils/Leukocytes Auto (Bld) [Pure # fraction] 0.0 E9/L Normal 0.0-0.2 [facility] Comment on above: Performed By: #### 2 524276 #### [facility] [address] [place] [address] Eosinophils (Bld) [#/Vol] 0.1 E9/L Normal 0.0-0.5 [facility] Comment on above: Performed By: #### 2 194146 #### [facility] [address] [place] [address] Eosinophils/100 WBC (Bld) 1.7 % Normal 0.0-8.0 [facility] Comment on above: Performed By: #### 2 284188 #### [facility] [address] [place] [address] Erythrocyte distribution width (RBC) [Ratio] 13.9 % Normal 10.9-14.2 [facility] Comment on above: Performed By: #### 2 [id number] #### [facility] [address] [place] [address] Hematocrit (Bld) [Volume fraction] 39.6 % Normal 37.7-49.0 [facility] Comment on above: Performed By: #### 2 870472 #### [facility] [address] [place] [address] Hemoglobin (Bld) [Mass/Vol] 14.0 g/dL Normal 13.5-17.5 [facility] Comment on above: Performed By: #### 2 083076 #### [facility] [address] [place] [address] Lymphocytes (Bld) [#/Vol] 1.5 E9/L Normal 1.0-4.0 [facility] Comment on above: Performed By: #### 2 659847 #### [facility] [address] [place] [address] Lymphocytes/100 WBC (Bld) 28.4 % Normal 14.0-50.0 [facility] Comment on above: Performed By: #### 2 639292 #### [facility] [address] [place] [address] MCH (RBC) [Entitic mass] 31.9 pg Normal 27.0-34.0 [facility] Comment on above: Performed By: #### 2 370917 #### [facility] [address] [place] [address] MCHC (RBC) [Mass/Vol] 35.3 g/dL Normal 31.4-36.0 [facility] Comment on above: Performed By: #### 2 123373 #### [facility] [address] [place] [address] MCV (RBC) [Entitic vol] 90.5 fL Normal 80.0-100.0 [facility] Comment on above: Performed By: #### 2 159327 #### [facility] [address] [place] [address] Monocytes (Bld) [#/Vol] 0.6 E9/L Normal 0.2-1.0 [facility] Comment on above: Performed By: #### 2 329693 #### [facility] [address] [place] [address] Neutrophils (Bld) [#/Vol] 3.2 E9/L Normal 2.0-7.5 [facility] Comment on above: Performed By: #### 2 528891 #### [facility] [address] [place] [address] Neutrophils/100 WBC (Bld) 58.2 % Normal 36.0-75.0 [facility] Comment on above: Performed By: #### 2 870159 #### [facility] [address] [place] [address] Platelet mean volume (Bld) [Entitic vol] 9.3 fL Normal 6.4-10.8 [facility] Comment on above: Performed By: #### 2 386647 #### [facility] [address] [place] [address] Platelets (Bld) [#/Vol] 144.0 E9/L Low 150.0-500.0 [facility] Comment on above: Performed By: #### 2 792901 #### [facility] [address] [place] [address] RBC (Bld) [#/Vol] 4.4 E12/L Normal 4.3-5.9 [facility] Comment on above: Performed By: #### 2 421963 #### [facility] [address] [place] [address] WBC corrected for nucl RBC Auto (Bld) [#/Vol] 5.4 E9/L Normal 4.0-11.0 [facility] Comment on above: Performed By: #### 2 094071 #### [facility] [address] [place] [address] CHEMISTRYOrdered By: SYSTEM SYSTEM on 09-04-2024 Albumin [...] 09-04-2024 Albumin [Mass/Vol] 4.2 g/dL Normal 3.3-5.0 [facility] Comment on above: Performed By: #### 2 445347 #### [facility] [address] [place] [address] Albumin/Globulin (S) [Mass conc ratio] 2.5 High 1.1-2.2 [facility] Comment on above: Performed By: #### 2 920133 #### [facility] [address] [place] [address] ALP [Catalytic activity/Vol] 53 Int._Unit/L Normal 21-98 [facility] Comment on above: Performed By: #### 2 161680 #### [facility] [address] [place] [address] ALT No additional P-5'-P [Catalytic activity/Vol] 41 Int._Unit/L Normal 6-46 [facility] Comment on above: Performed By: #### 2 319099 #### [facility] [address] [place] [address] Anion gap [Moles/Vol] 12 mmol/L Normal 6-16 [facility] Comment on above: Performed By: #### 2 344163 #### [facility] [address] [place] [address] AST [Catalytic activity/Vol] 23 Int._Unit/L Normal 5-43 [facility] Comment on above: Performed By: #### 2 654219 #### [facility] [address] [place] [address] Bilirubin [Mass/Vol] 1.6 mg/dL High 0.0-1.1 [facility] Comment on above: Performed By: #### 2 323008 #### [facility] [address] [place] [address] Calcium [Mass/Vol] 9.4 mg/dL Normal 8.9-11.1 [facility] Comment on above: Performed By: #### 2 511941 #### [facility] [address] [place] [address] Chloride [Moles/Vol] 99 mmol/L Low 101-111 [facility] Comment on above: Performed By: #### 2 803039 #### [facility] [address] [place] [address] CO2 [Moles/Vol] 28 mmol/L Normal 21-31 [facility] Comment on above: Performed By: #### 2 602232 #### [facility] [address] [place] [address] Creatinine [Mass/Vol] 0.8 mg/dL Normal 0.5-1.3 [facility] Comment on above: Performed By: #### 2 315975 #### [facility] [address] [place] [address] Globulin (S) [Mass/Vol] 1.7 g/dL Normal 1.4-4.0 [facility] Comment on above: Performed By: #### 2 143915 #### [facility] [address] [place] [address] Glucose [Mass/Vol] 121 mg/dL Normal 55-199 [facility] Comment on above: Performed By: #### 2 857939 #### [facility] [address] [place] [address] Potassium [Moles/Vol] 4.4 mmol/L Normal 3.5-5.3 [facility] Comment on above: Performed By: #### 2 459364 #### [facility] [address] [place] [address] Protein [Mass/Vol] 5.9 g/dL Low 6.0-7.8 [facility] Comment on above: Performed By: #### 2 394479 #### [facility] [address] [place] [address] Sodium [Moles/Vol] 135 mmol/L Normal 135-145 [facility] Comment on above: Performed By: #### 2 721785 #### [facility] [address] [place] [address] Urea nitrogen [Mass/Vol] 13 mg/dL Normal 5-21 [facility] Comment on above: Performed By: #### 2 863563 #### [facility] [address] [place] [address] Urea nitrogen/Creatinine [Mass ratio] 16 No Units Normal 10- [facility] Comment on above: Performed By: #### 2 500266 #### [facility] [address] [place] [address] Ferritinon 09-04-2024 Ferritin [Mass/Vol] 146 ng/mL Normal 24-336 [facility] Comment on above: Performed By: #### 2 459067 #### [facility] [address] [place] [address] HEMATOLOGYOrdered By: SYSTEM SYSTEM on 09-04-2024 Basophils/100 [...] 09-04-2024 Iron [Mass/Vol] 118 microgram/dL Normal 35-153 [facility] Comment on above: Performed By: #### 2 748212 #### [facility] [address] [place] [address] Iron Saturationon 09-04-2024 Iron binding capacity [Mass/Vol] 309 microgram/dL Normal 250-400 [facility] Comment on above: Performed By: #### 2 225429 #### [facility] [address] [place] [address] Iron saturation [Mass fraction] 38 % Normal 20-50 [facility] Comment on above: Performed By: #### 2 160895 #### [facility] [address] [place] [address] Transferrinon 09-04-2024 Transferrin [Mass/Vol] 221 mg/dL Normal 200-370 [facility] Comment on above: Performed By: #### 2 971866 #### [facility] [address] [place] [address] eGFRon 09-04-2024 eGFR 97 mL/min/1.73 m2 Normal >=59 [facility] Comment on above: Performed By: #### 1 [id number] #### [facility] [address] [place] [address] 36on 08-02-2024 36 Late entry Spoke with Bonita 07/23/24. Explained that patient would need to come to [facility] to have 24hr BP monitor placed. Options for returning would depend on when patient was coming to have it placed. Bonita was going to call and speak with patient and let me know. Normal [facility] Ambulatory Visit Summaryon 1 Ambulatory Visit Summary Ambulatory Visit Summary MARCELLE DOHERTY :1960 Visit Date:08/01/2024 Ambulatory Visit Instructions Your Diagnosis CAD in [place] artery Controlled type 2 diabetes mellitus without [...] Love MD. This Is Your Medications List Misc Prescription [...] Oncology Monday 11:00 AM EST With: Tj NATHANPEMA, Ana Rivas Where: [facility] 2023 2:00 PM EST With: Where: [facility] 2024 2:15 PM EST With: Where: [facility] 2024 2:15 PM EST With: Where: [facility] Monday 8:00 AM EST With: Where: [address] [address]- 2024 2:15 PM EST With: Where: [facility] 2024 2:05 PM EDT With: Where: [facility] 2024 9:15 AM EDT With: Ursula Love MD Where: [address] [address]- 2024 2:15 PM EDT With: Where: [facility] [...] da (more content not included)... Normal [facility] Office/Clini c Noteon 08-01-2024 Family [...] no acute distress ENMT: oral mucosa moist Cardiovascular:irregul ar rate and rhythm, normal peripheral perfusion Respiratory: Lungs clear to auscultation, respirations non labored Extremities: no deformity, no trauma Neurological: oriented x 4, level of consciousness appropriate for age, CN II-XII intact, motor strength equal & normal bilaterally, speech normal Abdomen: Soft, Non-tender, Non-distended, + Bowel sounds Assessment/Plan 1. CAD in [place] artery (I25.10: Atherosclerotic heart disease of [place] coronary artery without angina pectoris) Continue monitoring [...] Current tobacco (more content not included)... Normal [facility] Comment on above: Result Comment: Elec tronically Signed By: Km NIELSON, Ursula Porter\.br\Date and Time Signed: 08/01/24 11:31 EDT [facility] 07-31-20 [facility] Case Information Case Priority: None Programs: -- Referral Source: International Tax Manager Referral Reason: Disease management Case Type: Chronic Care Management Risk Score: -- Case Status: Active (December 28, 2023) Date Assigned: December 19, 2023 Assigned By: Christian Hernandez Date Enrolled: December 28, 2023 Assigned Primary Personnel: Christian Hernandez Assigned Secondary Personnel: -- Case Physician: Ursula Love MD Problems Ongoing AAA (abdominal aortic aneurysm) Aortic aneurysm BMI 28.0-28.9,adult BPH (benign prostatic hyperplasia) CAD in [place] artery Controlled type 2 diabetes mellitus without [...] Result Name Value Comment [facility] Program Enrollment Verbally agreed to receive [facility] services CCM Written Consent Written consent in progress [facility] Verbal Consent By Self 12/28/23 07:00:00 Result Name Value Comment HIPPA Verified Type of Contact In person at home CM Preferred Spoken Language Swiss CM Preferred Written Language Swiss Preferred Communication Mode Verbal Ability to Read/Write Able to read, Able to write Preferred Salutation Preferred Method of Contact Cell Cell Phone [phone] Best Time to Visit or Contact 7-10 am Best Day to Visit or Contact No preference Appointment Reminders Patient portal, Other secured messaging Preferred Way to Send PHI Patient portal Preferred Mailing Address [address] [place] [address], [phone] Learning Style Pref Patient Verbal explanation Learning [...] Shares bed Support System Spouse/Significant other Primary 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 Normal [facility] 36on 07-19-[address] results [...] and what it all entails? Thanks. [facility] Orders Onlyon 07-15-2024 Orders Only [id number] Oracio Doherty is A 1960 M Date Provider Department Center 07/15/2024 ALESHA BERNARDO Family History Problem Relation Age of Onset Coronary artery disease Father Atrial fibrillation Father Heart attack Brother Family Status - Relation Status Age at Father Brother [facility] Office Visiton 07-12-2024 Follow-up visit [id number] Oracio Doherty is A 1960 M Date Provider Department Center 07/12/2024 BLANKA LOMELI Family History Problem Relation Age of Onset Coronary artery disease Father Atrial fibrillation Father Heart attack Brother Family Status - Relation Status Age at Father Brother Level of Service:97310 [place] OFFICE/OUTPATIENT ESTABLISHED MOD MDM 30 MIN [facility] Orders Onlyon 07-11-2024 Orders Only [id number] Oracio Doherty is A 1960 M Date Provider Department Center 07/11/2024 [id number] Family History Problem Relation Age of Onset Coronary artery disease Father Atrial fibrillation Father Heart attack Brother Family Status - Relation Status Age at Father Brother Normal [facility] Population Health 06-28-20 [facility] Case Information Case Priority: None Programs: -- Referral Source: International Tax Manager Referral Reason: Disease management Case Type: Chronic Care Management Risk Score: -- Case Status: Active (December 28, 2023) Date Assigned: December 19, 2023 Assigned By: Christian Hernandez Date Enrolled: December 28, 2023 Assigned Primary Personnel: Christian Hernandez Assigned Secondary Personnel: -- Case Physician: Km NIELSON, Ursula Leos Ongoing AAA (abdominal aortic aneurysm) Aortic aneurysm BMI 28.0-28.9,adult BPH (benign prostatic hyperplasia) CAD in [place] artery Controlled type 2 diabetes mellitus without [...] Verbally agreed to receive [facility] services CCM Written Consent Written consent in progress CCM Verbal Consent By Self 12/28/23 07:00:00 Result Name Value Comment HIPPA Verified Type of Contact In person at home CM Preferred Spoken Language Swiss CM Preferred Written Language Swiss Preferred Communication Mode Verbal Ability to Read/Write Able to read, Able to write Preferred Salutation MrNelly Preferred Method of Contact Cell Cell Phone [phone] Best Time to Visit or Contact 7-10 am Best Day to Visit or Contact No preference Appointment Reminders Patient portal, Other secured messaging Preferred Way to Send PHI Patient portal Preferred Mailing Address [address] [place] [address] Learning Style Pref Patient Verbal explanation Learning [...] Shares bed Support System Spouse/Significant other Primary 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 Normal [facility] 06-11-20 [facility] Case Information Case Priority: None Programs: -- Referral Source: International Tax Manager Referral Reason: Disease management Case Type: Chronic Care Management Risk Score: -- Case Status: Active (December 28, 2023) Date Assigned: December 19, 2023 Assigned By: Christian Hernandez Date Enrolled: December 28, 2023 Assigned Primary Personnel: Christian Hernandez Assigned Secondary Personnel: -- Case Physician: Ursula Love MD Ongoing AAA (abdominal aortic aneurysm) Aortic aneurysm BMI 28.0-28.9,adult BPH (benign prostatic hyperplasia) CAD in [place] artery Controlled type 2 diabetes mellitus without [...] Result Name Value Comment [facility] Program Enrollment Verbally agreed to receive [facility] services CCM Written Consent Written consent in progress CCM Verbal Consent By Self 12/28/23 07:00:00 Result Name Value Comment HIPPA Verified Type of Contact In person at home CM Preferred Spoken Language Swiss CM Preferred Written Language Swiss Preferred Communication Mode Verbal Ability to Read/Write Able to read, Able to write Preferred Salutation MrNelly Preferred Method of Contact Cell Cell Phone [phone] Best Time to Visit or Contact 7-10 am Best Day to Visit or Contact No preference Appointment Reminders Patient portal, Other secured messaging Preferred Way to Send PHI Patient portal Preferred Mailing Address [address] [place] [address], [address] Learning Style Pref Patient Verbal explanation Learning [...] Shares bed Support System Spouse/Significant other Primary Mechanical Reliability Engineer of Home Medication Self Current DME at Home No Currently Receiving Skilled Services No Skilled Service Needs Anticipated No Barriers to Care None Home Barriers None (more content not included)... Normal [facility] 36on 06-04-2024 36 Regarding carotid duplex performed on 05/29/2024: MERVAT Kendrick MA Let them know less than 49% stenosis of both carotids- really very good- Continue all meds and we will see them next time Probably a repeat carotid in 1-3 years- unless symptoms Patient made aware via email. Normal [facility] Consent for Treatmenton 02-15 Consent for Treatment [id number] Normal [facility] Oncology Progress Noteon Oncology Progress Note Chief Complaint b12 Deficiency; no concerns blood pressure at home 111/62 Diagnoses 1. Iron deficiency anemia (D50.9: Iron deficiency anemia, unspecified) 2. Intestinal malabsorption (K90.9: Intestinal malabsorption, unspecified) 3. B12 deficiency (E53.8: Deficiency of other specified B group vitamins) Oncological History/ROS/PE/Assessm ent and Plan Mr. Doherty is a 63 [...] a colonoscopy done in Sep 2023 at [facility] after positive Cologuard test. 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 Normal [facility] CBC w/ Auto Diffon 4 Acanthocytes LM Ql (Bld) PRESENT Invalid Interpretation Code [facility] Comment on above: Performed By: #### 2 [id number] #### [facility] [address] [place] [address] Anisocytosis Ql (Bld) PRESENT Invalid Interpretation Code [facility] Comment on above: Performed By: #### 2 [id number] #### [facility] [address] [place] [address] Basophils/100 WBC (Bld) 0.8 % Normal 0.0-2.0 [facility] Comment on above: Performed By: #### 2 507503 #### [facility] [address] [place] [address] Basophils/Leukocytes Auto (Bld) [Pure # fraction] 0.0 E9/L Normal 0.0-0.2 [facility] Comment on above: Performed By: #### 2 262027 #### [facility] [address] [place] [address] Eosinophils (Bld) [#/Vol] 0.2 E9/L Normal 0.0-0.5 [facility] Comment on above: Performed By: #### 2 034705 #### [facility] [address] [place] [address] Eosinophils/100 WBC (Bld) 3.7 % Normal 0.0-8.0 [facility] Comment on above: Performed By: #### 2 [id number] #### [facility] [address] [place] [address] Erythrocyte distribution width (RBC) [Ratio] 27.1 % High 10.9-14.2 [facility] Comment on above: Performed By: #### 2 [id number] #### [facility] [address] [place] [address] Hematocrit (Bld) [Volume fraction] 40.0 % Normal 37.7-49.0 [facility] Comment on above: Performed By: #### 2 444334 #### [facility] [address] [place] [address] Hemoglobin (Bld) [Mass/Vol] 13.4 g/dL Low 13.5-17.5 [facility] Comment on above: Performed By: #### 2 194854 #### [facility] [address] [place] [address] Hypochromia Auto Ql (Bld) PRESENT Invalid Interpretation Code [facility] Comment on above: Performed By: #### 2 974662 #### [facility] [address] [place] [address] Lymphocytes (Bld) [#/Vol] 1.6 E9/L Normal 1.0-4.0 [facility] Comment on above: Performed By: #### 2 062808 #### [facility] [address] [place] [address] Lymphocytes/100 WBC (Bld) 32.5 % Normal 14.0-50.0 [facility] Comment on above: Performed By: #### 2 721169 #### [facility] [address] [place] [address] MCH (RBC) [Entitic mass] 27.3 pg Normal 27.0-34.0 [facility] Comment on above: Performed By: #### 2 [id number] #### [facility] [address] [place] [address] MCHC (RBC) [Mass/Vol] 33.6 g/dL Normal 31.4-36.0 [facility] Comment on above: Performed By: #### 2 197580 #### [facility] [address] [place] [address] MCV (RBC) [Entitic vol] 81.4 fL Normal 80.0-100.0 [facility] Comment on above: Performed By: #### 2 241525 #### [facility] [address] [place] [address] Monocytes (Bld) [#/Vol] 0.4 E9/L Normal 0.2-1.0 [facility] Comment on above: Performed By: #### 2 926658 #### [facility] [address] [place] [address] Neutrophils (Bld) [#/Vol] 2.7 E9/L Normal 2.0-7.5 [facility] Comment on above: Performed By: #### 2 423518 #### [facility] [address] [place] [address] Neutrophils/100 WBC (Bld) 55.1 % Normal 36.0-75.0 [facility] Comment on above: Performed By: #### 2 872658 #### [facility] [address] [place] [address] Ovalocytes LM Ql (Bld) PRESENT Invalid Interpretation Code [facility] Comment on above: Performed By: #### 2 [id number] #### [facility] [address] [place] [address] Platelet mean volume (Bld) [Entitic vol] 9.9 fL Normal 6.4-10.8 [facility] Comment on above: Performed By: #### 2 [id number] #### [facility] [address] [place] [address] Platelets (Bld) [#/Vol] 116.0 E9/L Low 150.0-500.0 [facility] Comment on above: Performed By: #### 2 128785 #### [facility] [address] [place] [address] RBC (Bld) [#/Vol] 4.9 E12/L Normal 4.3-5.9 [facility] Comment on above: Performed By: #### 2 040025 #### [facility] [address] [place], [place] [address] RBC size Nom (Bld) SEE MORPHOLOGY Invalid Interpretation Code [facility] Comment on above: Performed By: #### 2 [id number] #### [facility] [address] [place] [address] WBC corrected for nucl RBC Auto (Bld) [#/Vol] 5.0 E9/L Normal 4.0-11.0 [facility] Comment on above: Performed By: #### 2 [id number] #### [facility] [address] [place] [id number] CHEMISTRYOrdered By: SYSTEM SYSTEM on 03-12-2024 Albumin [...] 03-12-2024 Albumin [Mass/Vol] 4.3 g/dL Normal 3.3-5.0 [facility] Comment on above: Performed By: #### 2 [id number] #### [facility] [address] [place] [address] Albumin/Globulin (S) [Mass conc ratio] 2.3 High 1.1-2.2 [facility] Comment on above: Performed By: #### 2 [id number] #### [facility] [address] [place] [address] ALP [Catalytic activity/Vol] 54 Int._Unit/L Normal 21-98 [facility] Comment on above: Performed By: #### 2 [id number] #### [facility] [address] [place] [address] ALT No additional P-5'-P [Catalytic activity/Vol] 47 Int._Unit/L High 6-46 [facility] Comment on above: Performed By: #### 2 [id number] #### [facility] [address] [place] [address] Anion gap [Moles/Vol] 12 mmol/L Normal 6-16 [facility] Comment on above: Performed By: #### 2 [id number] #### [facility] [address] [place] [address] AST [Catalytic activity/Vol] 30 Int._Unit/L Normal 5-43 [facility] Comment on above: Performed By: #### 2 [id number] #### [facility] [address] [place] [address] Bilirubin [Mass/Vol] 1.8 mg/dL High 0.0-1.1 [facility] Comment on above: Performed By: #### 2 [id number] #### [facility] [address] [place] [address] Calcium [Mass/Vol] 9.1 mg/dL Normal 8.9-11.1 [facility] Comment on above: Performed By: #### 2 [id number] #### [facility] [address] [place] [address] Chloride [Moles/Vol] 102 mmol/L Normal 101-111 [facility] Comment on above: Performed By: #### 2 [id number] #### [facility] [address] [place] [address] CO2 [Moles/Vol] 26 mmol/L Normal 21-31 [facility] Comment on above: Performed By: #### 2 [id number] #### [facility] [address] [place] [address] Creatinine [Mass/Vol] 0.8 mg/dL Normal 0.5-1.3 [facility] Comment on above: Performed By: #### 2 [id number] #### [facility] [address] [place] [address] Globulin (S) [Mass/Vol] 1.9 g/dL Normal 1.4-4.0 [facility] Comment on above: Performed By: #### 2 [id number] #### [facility] [address] [place] [address] Glucose [Mass/Vol] 153 mg/dL Normal 55-199 [facility] Comment on above: Performed By: #### 2 [id number] #### [facility] [address] [place] [address] Potassium [Moles/Vol] 4.7 mmol/L Normal 3.5-5.3 [facility] Comment on above: Performed By: #### 2 [id number] #### [facility] [address] [place] [address] Protein [Mass/Vol] 6.2 g/dL Normal 6.0-7.8 [facility] Comment on above: Performed By: #### 2 [id number] #### [facility] [address] [place] [address] Sodium [Moles/Vol] 135 mmol/L Normal 135-145 [facility] Comment on above: Performed By: #### 2 [id number] #### [facility] [address] [place] [address] Urea nitrogen [Mass/Vol] 9 mg/dL Normal 5-21 [facility] Comment on above: Performed By: #### 2 [id number] #### [facility] [address] [place] [address] Urea nitrogen/Creatinine [Mass ratio] 11 No Units Normal 10-20 [facility] Comment on above: Performed By: #### 2 [id number] #### [facility] [address] [place] [address] Ferritinon 03-12-2024 Ferritin [Mass/Vol] 179 ng/mL Normal 24-336 [facility] Comment on above: Performed By: #### 2 [id number] #### [facility] [address] [place] [address] HEMATOLOGYOrdered By: SYSTEM SYSTEM on 03-12-2024 Acanthocytes [...] 03-12-2024 Iron [Mass/Vol] 117 microgram/dL Normal 35-153 [facility] Comment on above: Performed By: #### 2 [id number] #### [facility] [address] [place] [address] Iron Saturationon 03-12-2024 Iron binding capacity [Mass/Vol] 326 microgram/dL Normal 250-400 [facility] Comment on above: Performed By: #### 2 [id number] #### [facility] [address] [place] [address] Iron saturation [Mass fraction] 36 % Normal 20-50 [facility] Comment on above: Performed By: #### 2 [id number] #### [facility] [address] [place] [address] Transferrinon 03-12-2024 Transferrin [Mass/Vol] 233 mg/dL Normal 200-370 [facility] Comment on above: Performed By: #### 2 [id number] #### [facility] [address] [place] [address] eGFRon 03-12-2024 eGFR 98 mL/min/1.73 m2 Normal >=59 [facility] Comment on above: Order Comment: Order added by Discern Expert. Performed By: #### 1 [id number] #### [facility] [address] [place] [address] CHEMISTRYOrdered By: SYSTEM SYSTEM on 01-16-2024 Cobalamin [...] Normal 200 - 370 mg/dL Remisol Chem CHEMISTRYOrdered By: SYSTEM SYSTEM on 12-18-2023 Albumin [...] [facility] ChemAutoSS HEMATOLOGYOrdered By: SYSTEM SYSTEM on 12-18-2023 Anisocytosis [...] Remisol Heme Microcytes Ql (Bld) PRESENT *NA* (3/4/24 2:20 PM) Invalid Interpretation Code Remisol Heme [...] Normal 4.0 - 11.0 E9/L Remisol Heme URINALYSISOrdered By: sIaiah Garcia on 08-04-2023 Bacteria LM Ql (Urine [...] PM) Normal Negative [facility] UA Auto SS [place].plasma/Lithiu m.RBC (Bld) [Mass ratio] 0-3 /HPF Normal [...] [facility] UA Auto SS Urobilinogen Qn (U) [id number] {Denny'U}/dL Normal 0.0 - 1.0 EU/dL [facility] [...] [facility] ChemAutoSS CBC AUTO DIFFon 01-04-2023 BASO # 0.1 103/ul Normal 0.0-0.1 [facility] Comment on above: Performed By: #### C BC #### [facility] [address] [address] [address] Lucia San Basophils/100 WBC (Bld) 1.0 % Normal 0.2-2.0 [facility] Comment on above: Performed By: #### C BC #### [facility] [address] [address] [address] Lucia San EO # 0.1 103/ul Normal 0.0-0.7 [facility] Comment on above: Performed By: #### C BC #### [facility] [address] [place] [address] Dr. Lucia San Eosinophils/100 WBC (Bld) 2.5 % Normal 0.9-7.0 [facility] Comment on above: Performed By: #### C BC #### [facility] [address] [place] [address] Dr. Lucia San Erythrocyte distribution width (RBC) [Ratio] 17.3 % Critically high 11.0-15.0 [facility] Comment on above: Performed By: #### C BC #### [facility] [address] [place] [address] Dr. Lucia San Hematocrit (Bld) [Volume fraction] 35.2 % Critically low 42.0-54.0 [facility] Comment on above: Performed By: #### C BC #### [facility] [address] [place] [address] Dr. Lucia San Hemoglobin (Bld) [Mass/Vol] 11.3 g/dL Critically low 14.0-18.0 [facility] Comment on above: Performed By: #### C BC #### [facility] [address] [place] [address] Dr. Lucia San IG # 0.02 10e3/ul Normal 0.00-0.03 [facility] Comment on above: Performed By: #### C BC #### [facility] [address] [place] [address] Dr. Lucia San IG % 0.4 % Normal 0.0-0.5 [facility] Comment on above: Performed By: #### C BC #### [facility] [address] [place] [address] Dr. Lucia San LYMPH # 1.6 103/ul Normal 1.2-3.8 [facility] Comment on above: Performed By: #### C BC #### [facility] [address] [place] [address] Dr. Lucia San Lymphocytes/100 WBC (Bld) 30.9 % Normal 20.5-60.0 [facility] Comment on above: Performed By: #### C BC #### [facility] [address] [place] [address] Dr. Lucia San MANUAL DIFF REQ NO Normal [facility] Comment on above: Performed By: #### C BC #### [facility] [address] [place] [address] Dr. Lucia San MCH (RBC) [Entitic mass] 23.9 pg Critically low 25.9-34.0 [facility] Comment on above: Performed By: #### C BC #### [facility] [address] [place] [address] Dr. Lucia San MCHC (RBC) [Mass/Vol] 32.1 g/dL Normal 29.9-35.2 [facility] Comment on above: Performed By: #### C BC #### [facility] [address] [place] [address] Dr. Lucia San MCV (RBC) [Entitic vol] 74.6 fL Critically low 80.0-94.0 [facility] Comment on above: Performed By: #### C BC #### [facility] [address] [place] [address] Dr. Lucia San MONO # 0.5 103/ul Normal 0.3-0.8 [facility] Comment on above: Performed By: #### C BC #### [facility] [address] [place] [address] Dr. Lucia San Monocytes/100 WBC (Bld) 9.1 % Normal 1.7-12.0 [facility] Comment on above: Performed By: #### C BC #### [facility] [address] [place] [address] Dr. Lucia San NEUT # 2.9 103/ul Normal 1.4-6.5 [facility] Comment on above: Performed By: #### C BC #### [facility] [address] [place] [address] Dr. Lucia San Neutrophils/100 WBC (Bld) 56.1 % Normal 43.0-75.0 [facility] Comment on above: Performed By: #### C BC #### [facility] [address] [place] [address] Dr. Lucia San Platelet mean volume (Bld) [Entitic vol] 11.6 fL Normal 9.5-13.5 [facility] Comment on above: Performed By: #### C BC #### [facility] [address] [place] [address] Dr. Lucia San PLT 172 103/ul Normal 150-450 [facility] Comment on above: Performed By: #### C BC #### [facility] [address] [place] [address] Dr. Lucia San RBC 4.72 106/ul Normal 4.70-6.10 [facility] Comment on above: Performed By: #### C BC #### [facility] [address] [place] [address] Dr. Lucia San WBC 5.2 103/ul Normal 4.0-11.0 [facility] Comment on above: Performed By: #### C BC #### [facility] [address] [place], [place] [address] Dr. Lucia San ECHOCARDIO M/2D COMPLETEon 0 01-04-2023 ECHOCARDIO M/2D COMPLETE Patient: MARCELLE ODHERTY Exam Date: 01/04/2023 : 1960 Gender:M Ordering : DR BLANKA ERAZO M.D. Admission #: [id number] Family : Order #: [id number] CLICK HERE TO VIEW EXAM ECHOCARDIOGRAM REPORT [...] Area (VTI): 3.28 cm2, 3.28 cm2 Deceleration Moody: 0.48 m/s2 Pressure Half-Time: 1.33 s Peak [...] [place] M.D. on 01/04/2023 at 15:00 Normal [facility] GLYCOHEMOGLOBIN A1Con 2022 ADA RECOMMENDATION SEE BELOW Normal [facility] [place] [facility] Comment on above: Result Comment: ADA RECOMMENDED LIMIT 4.0 - 6.0 ADA THERAPEUTIC TARGET < 7.0 ACTION SUGGESTED > 7.0 Performed By: #### A 1C #### [facility] [address] [place] [address] Dr. Lucia San HbA1c (Bld) [Mass fraction] 6.9 % Critically high 4.5-6.2 [facility] Comment on above: Performed By: #### A 1C #### [facility] [address] [address] [address] Lucia San LIPID PROFILEon 01-04-2023 CHOL-HDL RATIO NORM SEE BELOW Normal [facility] Comment on above: Result Comment: 3.3 - 4.4 LOW RISK 4.4 - 7.1 AVERAGE RISK 7.1 - 11.0 MODERATE RISK >11.0 HIGH RISK Performed By: #### L IPID #### [facility] [address] [address] [address] Lucia San Cholesterol [Mass/Vol] 140 mg/dL Normal <=200 [facility] Comment on above: Performed By: #### L IPID #### [facility] [address] [address] [address] Lucia San Cholesterol in HDL [Mass/Vol] 37 mg/dL Critically low 40-60 [facility] Comment on above: Performed By: #### L IPID #### [facility] [address] [address] [address] Lucia San Cholesterol in LDL [Mass/Vol] 80.2 mg/dL Normal [facility] Comment on above: Performed By: #### L IPID #### [facility] [address] [address] [address] Lucia San Cholesterol.total/Cho lesterol in HDL [Mass ratio] 3.8 {ratio} Normal [facility] Comment on above: Performed By: #### L IPID #### [facility] [address] [address] [address] Lucia San HDL NORMAL > or = 60 mg/dl - LO W CARDIOVASCULAR RISK <40 mg/dl - HIGH CARDIOVASCULAR RISK Normal [facility] Comment on above: Performed By: #### L IPID #### [facility] [address] [address] [address] Lucia San LDL CALC NORMAL SEE BELOW Normal [facility] Comment on above: Result Comment: <100 mg/dl OPTIMAL 100 - 129 mg/dl NEAR OR ABOVE OPTIMAL 130 - 159 mg/dl BORDERLINE HIGH 160 - 189 mg/dl HIGH >190 mg/dl VERY HIGH Performed By: #### L IPID #### [facility] [address] [address] [address] Lucia San Triglyceride [Mass/Vol] 114 mg/dL Normal <=150 [facility] Comment on above: Performed By: #### L IPID #### [facility] [address] [address] [address] Lucia San VLDL CALC 22.8 mg/dL Normal [facility] Comment on above: Performed By: #### L IPID #### [facility] [address] [address] [address] Lucia San MICROALBUMIN, RAND URon 12-15 mALB 1.5 mg/L Normal <=30.0 [facility] Comment on above: Performed By: #### M ALBR #### [facility] [address] [place] [address] Dr. Lucia San NM STRESS/REST MULTIon 01-04 NM STRESS/REST MULTI Patient: MARCELLE DOHERTY Exam Date: 01/04/2023 : 1960 Gender:M Ordering : DR BLANKA ERAZO M.D. Admission #: [id number] Family : Order #: [id number] CLICK HERE TO VIEW EXAM RADIOLOGY REPORT [...] LOCATION: Basal inferior. Mid-anterior. Mid-inferior. Apical inferior. [place]. SIZE: Large (5 or more segments). SEVERITY: [...] Guzman MD on 01/04/2023 at 11:17 Normal [facility] PROF 14(COMP METB)on 023 Albumin [Mass/Vol] 4.1 g/dL Normal 3.4-5.0 [facility] Comment on above: Performed By: #### C MP #### [facility] [address] [place] [address] Dr. Lucia San Albumin/Globulin [Mass ratio] 1.7 {ratio} Normal [facility] Comment on above: Performed By: #### C MP #### [facility] [address] [place] [address] Dr. Lucia San ALP [Catalytic activity/Vol] 51 U/L Normal 46-116 [facility] Comment on above: Performed By: #### C MP #### [facility] [address] [place] [address] Dr. Lucia San ALT [Catalytic activity/Vol] 49 U/L Normal 16-63 [facility] Comment on above: Performed By: #### C MP #### [facility] [address] [place] [address] Dr. Lucia San Anion gap [Moles/Vol] 16.6 mmol/L Normal [facility] Comment on above: Performed By: #### C MP #### [facility] [address] [place] [address] Dr. Lucia San AST [Catalytic activity/Vol] 28 U/L Normal 15-37 [facility] Comment on above: Performed By: #### C MP #### [facility] [address] [address] [address] Lucia San Bilirubin [Mass/Vol] 1.7 mg/dL Critically high 0.2-1.0 [facility] Comment on above: Performed By: #### C MP #### [facility] [address] [address] [address] Lucia San Calcium [Mass/Vol] 9.2 mg/dL Normal 8.5-10.1 [facility] Comment on above: Performed By: #### C MP #### [facility] [address] [address] [address] Lucia San Chloride [Moles/Vol] 100 mmol/L Normal 98-107 [facility] Comment on above: Performed By: #### C MP #### [facility] [address] [place] [address] Dr. Lucia San CO2 [Moles/Vol] 25.9 mmol/L Normal 21.0-32.0 [facility] Comment on above: Performed By: #### C MP #### [facility] [address] [address] [address] Lucia San Creatinine [Mass/Vol] 1.03 mg/dL Normal 0.70-1.30 [facility] Comment on above: Performed By: #### C MP #### [facility] [address] [place] [address] Dr. Lucia San EGFR-AF [place] >60 Normal >=60 [facility] Comment on above: Performed By: #### C MP #### [facility] [address] [address] [address] Lucia San EGFR-NON AF [place] >60 Normal >=60 [facility] Comment on above: Performed By: #### C MP #### [facility] [address] [place] [address] Dr. Lucia San Globulin (S) [Mass/Vol] 2.4 g/dL Normal [facility] Comment on above: Performed By: #### C MP #### [facility] [address] [place] [address] Dr. Lucia San Glucose [Mass/Vol] 151 mg/dL Normal [facility] [place] [facility] Comment on above: Performed By: #### C MP #### [facility] [address] [address] [address] Lucia San Performed By: #### A 1C #### [facility] [address] [address] [address] Lucia San Potassium [Moles/Vol] 4.5 mmol/L Normal 3.5-5.1 [facility] Comment on above: Performed By: #### C MP #### [facility] [address] [address] [address] Lucia San Protein [Mass/Vol] 6.5 g/dL Normal 6.4-8.2 [facility] [place] [facility] Comment on above: Performed By: #### C MP #### [facility] [address] [place] [address] Dr. Lucia San Sodium [Moles/Vol] 138 mmol/L Normal 136-145 [facility] Comment on above: Performed By: #### C MP #### [facility] [address] [address] [address] Lucia San Urea nitrogen [Mass/Vol] 13.0 mg/dL Normal 7.0-18.0 [facility] Comment on above: Performed By: #### C MP #### [facility] [address] [place] [address] Dr. Lucia San Urea nitrogen/Creatinine [Mass ratio] 12.6 mg/mg Normal [facility] Comment on above: Performed By: #### C MP #### [facility] [address] [place] [address] Dr. Lucia San Dermatopathologyon 0 Dermatopathology [facility] [address] [place] [id number] DERMATOPATHOLOGY REPORT Name:MARCELLE DOHERTY [facility]. Rec #. [id number] Location: ADE Date of Procedure: 10/02/2020 Race: Unknown Date Received: 10/06/2020 /Sex: 1960 (Age: 60) / M Date Reported: 10/08/2020 Other: Submitting Physician:SONIA BAUTISTA APRN, [employer] MACHINE OPERATOR-C FINAL DIAGNOSIS A. SKIN, (R) [...] or group listed as making the Final Interpretation/Diagnos is certifies that they have reviewed this case. Clinical History: A: 0.8x0.5cm ISK vs. other. Biopsy. 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 Biopsy. Specimens Submitted As: A: SKIN, (R) NECK, BIOPSY B: SKIN, MID BACK, BIOPSY Gross Description: A: Received in formalin is a mayers piece of skin measuring [id number] in aggreg (small). The specimen is inked and embedded in toto. B: Received in formalin is a mayers piece of skin measuring [id number]. The specimen is inked and embedded in toto. ink/10/06/2020 Microscopic Description: A,B: Microscopic examination performed. Normal [facility] Comment on above: Performed By: #### D #### Dermatopathology Vital Signs Date Time Vital Sign Value Performing Clinician Facility 03-12-2025 08:47-0400 Body height 177.8 cm Pac 1 Work Phone: [facility] 03-12-2025 08:47-0400 Body mass index (BMI) [Ratio] 27.2 kg/m2 [facility] 1 Work Phone: [facility] 03-12-2025 08:47-0400 Body temperature 97.9 [degF] [facility] 1 Work Phone: [facility] 03-12-2025 08:47-0400 Body weight 86 kg [facility] 1 Work Phone: [facility] 03-12-2025 08:47-0400 Diastolic blood pressure 77 mm[Hg] Pacc 1 Work Phone: [facility] Comment on above: 118/66 taken at home. 03-12-2025 08:47-0400 Heart rate 67 /min Pacc 1 Work Phone: [facility] 03-12-2025 08:47-0400 Respiratory rate 12 /min Pacc 1 Work Phone: [facility] 03-12-2025 08:47-0400 SaO2% (BldA) [Mass fraction] 99 % Pacc 1 Work Phone: [facility] 03-12-2025 08:47-0400 Systolic blood pressure 172 mm[Hg] Pacc 1 Work Phone: [facility] Comment on above: 118/66 taken at home. 02-13-2025 14:01-0400 Body temperature 98.42 [degF] [facility] 02-13-2025 14:01-0400 Diastolic blood pressure 63 mm[Hg] [facility] 02-13-2025 14:01-0400 Heart rate 58 /min [facility] 02-13-2025 14:01-0400 Mean blood pressure 79 mm[Hg] [facility] 02-13-2025 14:01-0400 Respiratory rate 16 /min [facility] 02-13-2025 14:01-0400 SaO2% (BldA) [Mass fraction] 98 % [facility] 02-13-2025 14:01-0400 Systolic blood pressure 110 mm[Hg] [facility] 09-09-2024 11:18-0500 Body temperature 98.06 [degF] Ana Spencer [facility] 09-09-2024 11:18-0500 Diastolic blood pressure 87 mm[Hg] Ana Spencer [facility] 09-09-2024 11:18-0500 Heart rate 72 /min Ana Lingke [facility] 09-09-2024 11:18-0500 Mean blood pressure 119 mm[Hg] Ana Hubbardboske [facility] 09-09-2024 11:18-0500 Respiratory rate 18 /min Ana Lingke [facility] 09-09-2024 11:18-0500 SaO2% (BldA) [Mass fraction] 98 % Ana Lingke [facility] 09-09-2024 11:18-0500 Systolic blood pressure 183 mm[Hg] Ana Lingke [facility] 03-14-2024 10:16-0400 Body temperature 97.52 [degF] Ana Lingke [facility] 03-14-2024 10:16-0400 Diastolic blood pressure 85 mm[Hg] Ana Hubbardboske [facility] 03-14-2024 10:16-0400 Heart rate 59 /min Ana Lingke [facility] [facility] 03-14-2024 10:16-0400 Mean blood pressure 116 mm[Hg] Ana Hubbardboske [facility] 03-14-2024 10:16-0400 Respiratory rate 16 /min Ana Hubbardboske [facility] 03-14-2024 10:16-0400 SaO2% (BldA) [Mass fraction] 99 % Ana Hubbardboske [facility] 03-14-2024 10:16-0400 Systolic blood pressure 179 mm[Hg] Ana Hubbardboske [facility] 02-15-2024 13:10-0400 Blood Pressure Location Ana Spencer [facility] 02-15-2024 13:10-0400 Body temperature 98.06 [degF] Ana Spencer [facility] 02-15-2024 13:10-0400 Diastolic blood pressure 61 mm[Hg] Ana Spencer [facility] 02-15-2024 13:10-0400 Heart rate 62 /min Ana Spencer [facility] 02-15-2024 13:10-0400 Mean blood pressure 77 mm[Hg] Ana Spencer [facility] 02-15-2024 13:10-0400 Respiratory rate 16 /min Ana Spencer [facility] 02-15-2024 13:10-0400 SaO2% (BldA) [Mass fraction] 99 % Ana Spencer [facility] 02-15-2024 13:10-0400 Systolic blood pressure 108 mm[Hg] Ana Spencer [facility] 02-08-2024 13:00-0400 Blood Pressure Location Ana Spencer [facility] 02-08-2024 13:00-0400 Body temperature 98.24 [degF] Ana Spencer [facility] 02-08-2024 13:00-0400 Diastolic blood pressure 82 mm[Hg] Aan Lingke [facility] 02-08-2024 13:00-0400 Heart rate 80 /min Ana Lingke [facility] 02-08-2024 13:00-0400 SaO2% (BldA) [Mass fraction] 100 % Ana Spencer [facility] 02-08-2024 13:00-0400 Systolic blood pressure 142 mm[Hg] Ana Spencer [facility] 01-25-2024 08:58-0400 Diastolic blood pressure 82 mm[Hg] Ana Spencer [facility] 01-25-2024 08:58-0400 Heart rate 65 /min Ana Spencer [facility] 01-25-2024 08:58-0400 Mean blood pressure 118 mm[Hg] Ana Spencer [facility] 01-25-2024 08:58-0400 SaO2% (BldA) [Mass fraction] 99 % Ana Spencer [facility] 01-25-2024 08:58-0400 Systolic blood pressure 190 mm[Hg] Ana Spencer [facility] 08-16-2023 08:21-0400 Blood Pressure Location Shelley Lue [facility] 08-16-2023 08:21-0400 Diastolic blood pressure 83 mm[Hg] Shelley Lue [facility] 08-16-2023 08:21-0400 Heart rate 69 /min Shelley Lue [facility] 08-16-2023 08:21-0400 Respiratory rate 16 /min Shelley Lue [facility] 08-16-2023 08:21-0400 Systolic blood pressure 166 mm[Hg] Shelley Lue [facility] Encounters Encounter Date Encounter Type Care Provider Facility Start: 02-02-2026 ambulatory Ursula Love Facility :[facility] Start: 07-31-2025 ambulatory Ursula Love Facility :[facility] Start: 05-01-2025 End: 05-12-2025 ambulatory MOBILE HEAV[employer] EQUIPMENT OPERATOR Karen Romano Facility:[facility] Start: 04-07-2025 End: 04-07-2025 ambulatory ADAM ELLSWORTH Facility:[facility] Start: 04-03-2025 End: 04-03-2025 Patient encounter procedure Adam Ellsworth MD Work Phone: Ophthalmology Comment on above: 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); S/P cataract extraction and insertion of intraocular lens, right Start: 04-03-2025 End: 04-03-2025 ambulatory ADAM ELLSWORTH Facility:[facility] Start: 03-31-2025 End: 03-31-2025 Bamboo flowsheet Sonia A Michele [employer] Work Phone: [facility] Start: 03-31-2025 End: 03-31-2025 Bamboo flowsheet Sonia A Felter [employer] Work Phone: [facility] Start: 03-31-2025 End: 03-31-2025 Patient encounter procedure Sonia Bautista [employer] Work Phone: [facility] Comment on above: Inflamed seborrheic keratosis Start: 03-31-2025 End: 03-31-2025 ambulatory SONIA A DAVEER Not Available Start: 03-19-2025 End: 03-19-2025 ambulatory HUMERA SYED Facility:[facility] Start: 03-19-2025 End: 04-09-2025 ambulatory MOBILE HEAV[employer] EQUIPMENT OPERATOR Karen Romano Facility:[facility] Start: 03-12-2025 End: 03-12-2025 Patient encounter procedure Eye Measurements Work Phone: Ophthalmology Comment on above: Combined forms of ag e-related cataract of right eye; Combined forms of age-related cataract of left eye; Hx of LASIK Start: 03-12-2025 End: 03-12-2025 Admission to establishment [facility] Work Phone: Pre Anesthesia Start: 03-12-2025 End: 03-12-2025 [facility]est[facility] consultation [facility] Work Phone: Pre Anesthesia Comment on above: Pre-op evaluation (P rimary Dx); Gastroesophageal reflux disease, unspecified whether esophagitis present; Type 2 diabetes mellitus without retinopathy (HCC); Primary hypertension; Persistent atrial fibrillation (HCC); Coronary artery disease involving point [place] coronary artery of [place] heart without angina pectoris; Dyslipidemia; Abdominal aortic aneurysm (AAA) without rupture, unspecified part Refill Request Start: 03-12-2025 End: 03-12-2025 Preprocedural examination done [place] [address] Work Phone: [facility] Work Phone: Start: 03-12-2025 End: 03-12-2025 ambulatory HUMERA SYED Facility:[facility] Start: 03-12-2025 Encounter for other preprocedural examination HUMERA SYED [facility] Start: 03-06-2025 End: 03-06-2025 ambulatory HUMERA SYED Facility:[facility] Start: 03-04-2025 End: 03-04-2025 ambulatory [facility] Start: 02-25-2025 End: 02-25-2025 Bamboo ActiViewsheet Sonia Bautista [employer] Work Phone: [facility] Start: 02-25-2025 End: 02-25-2025 Bamboo flowsheet Sonia Bautista [employer] Work Phone: [facility] Start: 02-25-2025 End: 02-25-2025 Office outpatient visit 15 minutes Sonia Bautista [employer] Work Phone: [facility] Comment on above: Seborrheic keratosis , inflamed (Primary Dx); Capillary angioma; Actinic keratosis; Melanocytic nevus of trunk; Melanocytic nevus of left lower extremity; Seborrheic keratosis Start: 02-25-2025 End: 02-25-2025 ambulatory SONIA BAUTISTA Not Available Start: 02-13-2025 End: 02-13-2025 ambulatory Ana Spencer Facility:[facility] Start: 02-13-2025 End: 02-13-2025 Patient encounter procedure Bharath Melton [facility] Start: 02-11-2025 End: 02-11-2025 Lab Drop off Ursula Love [facility] Start: 02-11-2025 End: 02-11-2025 ambulatory Ursula Love [facility] Start: 01-30-2025 End: 01-30-2025 ambulatory MD Ursula Love Facility: [facility] Start: 01-23-2025 End: 02-06-2025 ambulatory Ursula Love Facility: [facility] Start: 01-17-2025 End: 01-18-2025 ambulatory Ana Spencer Facility:[facility] Start: 01-17-2025 End: 01-18-2025 Patient encounter procedure Ana Spencer [facility] Start: 12-26-2024 End: 12-26-2024 ambulatory [facility] Start: 12-19-2024 End: 12-19-2024 ambulatory Ana Spencer Facility:[facility] Start: 12-17-2024 ambulatory Ursula Love Facility : [facility] Start: 11-21-2024 End: 11-21-2024 ambulatory Ana Spencer Facility:[facility] Start: 11-21-2024 End: 11-21-2024 Patient encounter procedure Ana Spencer [facility] Start: 11-18-2024 End: 11-18-2024 ambulatory Leonora Camacho MD Facility:[facility] Start: 11-14-[address] [facility] Start: 11-14-2024 End: 11-14-[address] [facility] Start: 10-24-2024 End: 10-24-2024 ambulatory Ana Spencer Facility:[facility] Start: 10-24-2024 End: 10-24-2024 Patient encounter procedure Ana Spencer [facility] Start: 10-01-2024 End: 10-01-[address] [facility] Start: 09-26-2024 End: 10-07-2024 ambulatory Ursula Love Facility:[facility] Start: 09-26-2024 End: 09-26-2024 Patient encounter procedure Ana Hubbardsoladick [facility] Start: 09-10-2024 End: 09-10-[address] [facility] Start: 09-09-2024 End: 09-09-2024 ambulatory Ana Spencer Facility:[facility] Start: 09-09-2024 End: 09-09-2024 Patient encounter procedure Ana Spencer [facility] Start: 09-04-2024 End: 09-04-2024 ambulatory Ana Spencer Facility:[facility] Start: 09-04-2024 End: 09-04-2024 Patient encounter procedure nAa Spencer [facility] Start: 08-29-2024 End: 08-29-2024 ambulatory Ana Spencer Facility:[facility] Start: 08-29-2024 End: 08-29-2024 Patient encounter procedure Ana Hubbardsoladick [facility] Start: 08-01-2024 End: 08-01-2024 ambulatory Ana Spencer Facility:[facility] Start: 08-01-2024 End: 08-01-2024 Patient encounter procedure Ana Spencer [facility] Start: 08-01-2024 End: 08-01-2024 ambulatory MD Ursula Love Facility:[facility] Start: 07-31-2024 End: 08-08-2024 ambulatory MD Ursula Love Facility:[facility] Start: 07-29-2024 End: 07-29-2024 ambulatory Leonora Camacho MD Facility:[facility] Start: 07-12-2024 End: 07-12-2024 ambulatory [facility] Start: 07-04-2024 End: 07-04-2024 ambulatory Ana Spencer Facility:[facility] Start: 07-04-2024 End: 07-04-2024 Patient encounter procedure Ana Spencer [facility] Start: 06-27-2024 End: 07-10-2024 Orders Only Jannet Gonzalez MD Work Phone: Cardiology Comment on above: Atrial fibrillation, unspecified type (HCC) (Primary Dx) Start: 2024 End: 2024 ambulatory MD Ursula Love Facility:[facility] Start: 06-06-2024 End: 06-06-2024 ambulatory Ana Spencer Facility:[facility] Start: 06-06-2024 End: 06-06-2024 Patient encounter procedure Ana Spencer [facility] Start: 05-09-2024 End: 05-09-2024 ambulatory Ana Spencer Facility:[facility] Start: 05-09-2024 End: 05-09-2024 Patient encounter procedure Ana Spencer [facility] Start: 04-24-2024 End: 05-08-2024 ambulatory MD Ursula Love Facility:[facility] Start: 04-11-2024 End: 04-11-2024 Patient encounter procedure Ana Spencer [facility] Start: 03-22-2024 End: 04-09-2024 ambulatory MD Ursula Love Facility:[facility] Start: 03-14-2024 End: 03-14-2024 ambulatory Ana Spencer Facility:[facility] Start: 03-14-2024 End: 03-14-2024 Patient encounter procedure Ana Spencer [facility] Start: 03-12-2024 End: 03-12-2024 ambulatory Ana Spencer Facility:[facility] Start: 03-12-2024 End: 03-12-2024 Patient encounter procedure Ana Spencer [facility] Start: 02-15-2024 End: 02-15-2024 Patient encounter procedure Ana Spencer [facility] Start: 02-08-2024 End: 02-08-2024 Patient encounter procedure Ana Spencer [facility] Start: 02-01-2024 End: 02-01-2024 Patient encounter procedure Ana Spencer [facility] Start: 01-25-2024 End: 01-25-2024 Patient encounter procedure Ana Spencer [facility] Start: 01-16-2024 End: 01-16-2024 Patient encounter procedure Bharath Melton [facility] Start: 12-27-2023 End: 12-27-2023 Patient encounter procedure Urslua Love [facility] Start: 12-18-2023 End: 12-18-2023 Lab Drop off Ursula Love [facility] Start: 10-04-2023 End: 10-04-2023 Patient encounter procedure Jose Luis THOMAS [facility] Start: 08-16-2023 End: 08-16-2023 Patient encounter procedure Shelley Bruce [facility] Start: 08-07-2023 End: 08-07-2023 Patient encounter procedure Ursula Love [facility] Start: 08-04-2023 End: 08-04-2023 Lab Drop off Karen Romano [facility] Start: 07-04-2023 End: 07-04-2023 Lab Drop off Ursula Love [facility] Start: 07-03-2023 End: 07-03-2023 Lab Drop off Ursula Love [facility] Start: 01-04-2023 End: 01-05-2023 ambulatory URSULA LOVE Facility:[facility] Start: 04-01-2022 End: 04-01-2022 Off-Site Ursula IveyNelly Love [facility] Start: 03-30-2022 End: 03-30-2022 Off-Site Ursula Love [facility] Start: 02-03-2022 Orders Only Jannet Timmons Work Phone: Cardiology Comment on above: Persistent atrial fi brillation (HCC) (Primary Dx) Procedures Date Procedure Procedure Detail Performing Clinician Start: 03-31-2025 CRYOTHERAPY SKIN LESION Sonia Bautista [employer] Work Phone: Start: 03-12-2025 IOL BIOMETRY W/ IOL CALC OU (BOTH EYES) Humera Syed MD Work Phone: Start: 03-12-2025 ASCAN ONLY - DIAGNOSTIC OU (BOTH EYES) Humera Syed MD Work Phone: Start: 03-06-2025 History of laser assisted in situ keratomileusis Hx of LASIK Pacc 1 Work Phone: Start: 02-25-2025 End: 02-25-2025 CRYOTHERAPY SKIN LESION Sonia Bautista [employer] Work Phone: Start: 11-13-2024 Cardiac ablation system (physical object) Ursula Km Start: 09-20-2023 Colonoscopy Sonia Bautista [employer] Work Phone: Start: 09-20-2023 Colonoscopy Jose Luis THOMAS Cardiac ablation sys tem (physical object) Shelley Bruce Cardiac catheterization Hernandez ael NILL History of laser ass isted in situ keratomileusis Hx of LASIK Eye Measurements Work Phone: Repair of musculoten dinous cuff of shoulder Jose Luis THOMAS Rupture of tendon of biceps (disorder) Jose Luis THOMAS Structure of right s houlder region (body structure) Ursula Love Tonsillectomy Jose Luis THOMAS Plan of Treatment Date Care Activity Detail Author Start: 09-20-2033 Screening for malignant neoplasm of colon [facility] Start: 2033 RSV Vaccine (1 - 1-dose 75+ series) RSV Vaccine (1 - 1-dose 75+ series) [facility] Start: 07-19-2026 Screening for malignant neoplasm of colon [facility] Start: 03-06-2026 Glaucoma screening Dilated Retinal Exam [facility] Start: 02-24-2026 End: 02-24-2026 Patient encounter procedure 02/24/2026 9:05 AM EDT Office Visit [facility] [address] [place] [id number] Sonia Bautista, [employer] [address] [place] [address] [facility] Start: 07-28-2025 ambulatory Ambulatory Facility:[facility] Start: 06-16-2025 Influenza vaccination Influenza Vaccine (Season Ended) [facility] Start: 05-28-2025 Subsequent hospital visit by physician 05/28/2025 Hospital Encounter Ambulatory Surgery [address] [place] [address] Humera Syed MD [address] [place] [address] Combined forms of age-related cataract of left eye [H25.812], Hx of LASIK [Z98.890], Type 2 diabetes mellitus without retinopathy (HCC) [E11.9], Nonexudative age-related macular degeneration, bilateral, early dry stage [H35.3131], 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] Ambulatory Surgery Comment on above: Combined forms of age-related cataract o f left eye [H25.812], Hx of LASIK [Z98.890], Type 2 diabetes mellitus without retinopathy (HCC) [E11.9], Nonexudative age-related macular degeneration, bilateral, early dry stage [H35.3131], 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] Start: 04-08-2025 End: 04-08-2025 Patient encounter procedure 04/08/2025 8:30 AM EDT Office Visit [facility] [address] [place] [address] Adam Ellsworth V, MD [address] [place], [place] [id number] 1 DAY POST OP Ophthalmology Comment on above: 1 DAY POST OP Start: 04-07-2025 End: 04-07-2025 Admission to same day surgery center 04/07/2025 1:30 PM EDT - 04/07/2025 2:00 PM EDT Surgery Ambulatory Surgery [address] [place] [address] Adam Ellsworth V, MD [address] [place], [place] [id number] PHACOEMULSIFICATION CATARACT IMPLANT INTRAOCULAR LENS W/O ENDOSCOPIC CYCLOPHOTOCOAGULATION Ambulatory Surgery Comment on above: PHACOEMULSIFICATION CATARACT IMPLANT INT RAOCULAR LENS W/O ENDOSCOPIC CYCLOPHOTOCOAGULATION Start: 04-07-2025 End: 04-07-2025 Oph bmtry prtl coher intrfrmtry io lens pwr rosa OPHTHALMIC BIOMETRY BY PARTIAL COHERENCE INTERFEROMETRY W/INTRAOCULAR LENS POWER CALCULATION Combined forms of age-related cataract of left eye 04/07/2025 1:30 PM EDT [facility] Start: 04-07-2025 Subsequent hospital visit by physician 04/07/2025 1:30 PM EDT Hospital Encounter Ambulatory Surgery [address] [place] [address] Adam Ellsowrth V, MD [address] [place] [address] Combined forms of age-related cataract of left eye [H25.812] Ambulatory Surgery Comment on above: Combined forms of age-related cataract o f left eye [H25.812] Start: 04-07-2025 End: 04-07-2025 Xcapsl ctrc rmvl insj io lens prosth w/o ecp PHACOEMULSIFICATION CATARACT IMPLANT INTRAOCULAR LENS W/O ENDOSCOPIC CYCLOPHOTOCOAGULATION Combined forms of age-related cataract of left eye 04/07/2025 1:30 PM EDT [facility] Start: 03-31-2025 End: 03-31-2025 Patient encounter procedure [facility] Comment on above: Arrived Start: 03-19-2025 End: 03-19-2025 Admission to same day surgery center 03/19/2025 11:55 AM EDT - 03/19/2025 12:30 PM EDT Surgery Ambulatory Surgery [address] [facility] [place] [address] Humera Syed MD [address] [facility] [address] PHACOEMULSIFICATION CATARACT IMPLANT INTRAOCULAR LENS W/O ENDOSCOPIC CYCLOPHOTOCOAGULATION Ambulatory Surgery Comment on above: PHACOEMULSIFICATION CATARACT IMPLANT INT RAOCULAR LENS W/O ENDOSCOPIC CYCLOPHOTOCOAGULATION Start: 03-19-2025 End: 03-19-2025 Oph bmtry prtl coher intrfrmtry io lens pwr rosa OPHTHALMIC BIOMETRY BY PARTIAL COHERENCE INTERFEROMETRY W/INTRAOCULAR LENS POWER CALCULATION Combined forms of age-related cataract of right eye Hx of LASIK Type 2 diabetes mellitus without retinopathy (HCC) Nonexudative age-related macular degeneration, bilateral, early dry 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 PVD (posterior vitreous detachment), bilateral 03/19/2025 11:55 AM EDT [facility] Start: 03-19-2025 Subsequent hospital visit by physician 03/19/2025 11:55 AM EDT Hospital Encounter Ambulatory Surgery [address] [facility] [place] [address] Humera Syed MD [address] [facility] [place] [address] Combined forms of age-related cataract of right eye [H25.811], Hx of LASIK [Z98.890], Type 2 diabetes mellitus without retinopathy (HCC) [E11.9], Nonexudative age-related macular degeneration, bilateral, early dry stage [H35.3131], 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], PVD (posterior vitreous detachment), bilateral [H43.813] Ambulatory Surgery Comment on above: Combined forms of age-related cataract o f right eye [H25.811], Hx of LASIK [Z98.890], Type 2 diabetes mellitus without retinopathy (HCC) [E11.9], Nonexudative age-related macular degeneration, bilateral, early dry stage [H35.3131], 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], PVD (posterior vitreous detachment), bilateral [H43.813] Start: 03-19-2025 End: 03-19-2025 Xcapsl ctrc rmvl insj io lens prosth w/o ecp PHACOEMULSIFICATION CATARACT IMPLANT INTRAOCULAR LENS W/O ENDOSCOPIC CYCLOPHOTOCOAGULATION Combined forms of age-related cataract of right eye Hx of LASIK Type 2 diabetes mellitus without retinopathy (HCC) Nonexudative age-related macular degeneration, bilateral, early dry 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 PVD (posterior vitreous detachment), bilateral 03/19/2025 11:55 AM EDT [facility] Start: 02-25-2025 End: 02-25-2025 Patient encounter procedure 02/25/2025 1:05 PM EDT Office Visit [facility] [address] [place] [address] Sonia Bautista, [employer]IVER [address] [place] [address] Arrived NOMSh[facility] HUNTER Comment on above: Arrived Start: 12-19-2024 End: 12-19-2024 Patient encounter procedure 12/19/2024 9:15 AM EST Office Visit Cardiology [address] [place] [address] Jannet Gonzalez MD [address] [place] [address] Paroxysmal atrial fibrillation (HCC) [I48.0] Cardiology Comment on above: Paroxysmal atrial fibrillation (HCC) [I4 8.0] Start: 12-19-2024 End: 12-19-2024 ambulatory 12/19/2024 8:30 AM EST Results Only Cardiology [address] [place] [address] Paroxysmal atrial fibrillation (HCC) [I48.0] Cardiology Comment on above: Paroxysmal atrial fibrillation (HCC) [I4 8.0] Start: 10-16-2024 Advance Directive Discussion Advance Directive Discussion [facility] Start: 06-16-2024 Covid-19 Vaccine ( season) Covid-19 Vaccine ( season) [facility] Start: 06-16-2024 Covid-19 Vaccine () Covid-19 Vaccine () [facility] Start: 06-16-2024 Influenza vaccination [facility] Start: 10-16-2023 Advance Directive Discussion Advance Directive Discussion [facility] Start: 2023 Pneumococcal Vaccine: 65+ (1 of 1 - PCV) Pneumococcal Vaccine: 65+ (1 of 1 - PCV) [facility] Start: 05-16-2023 Medicare Annual Wellness Visit Medicare Annual Wellness Visit [facility] Start: 07-04-2020 DIABETES SCREEN DIABETES SCREEN [facility] Start: 07-04-2020 Diabetes Screening Diabetes Screening [facility] Start: 2018 RSV Vaccine (1 - 1-dose 60+ series) RSV Vaccine (1 - 1-dose 60+ series) [facility] Start: 2018 RSV Vaccine (1 - Risk 60-74 years 1-dose series) RSV Vaccine (1 - Risk 60-74 years 1-dose series) [facility] Start: 2013 PROSTATE CANCER SCREENING DISCUSSION PROSTATE CANCER SCREENING DISCUSSION [facility] Start: 2013 Prostate specific antigen measurement Prostate Cancer Screening Discussion [facility] Start: 2008 Pneumococcal Vaccine: 65+ Years (1 of 1 - PCV) Pneumococcal Vaccine: 65+ Years (1 of 1 - PCV) [facility] Start: 2008 SHINGRIX VACCINE (1 of 2) SHINGRIX VACCINE (1 of 2) [facility] Start: 2003 COLOGUARD (FIT-DNA) COLOGUARD (FIT-DNA) [facility] Start: 2003 Colonoscopy COLONOSCOPY [facility] Start: 2003 COLORECTAL CANCER SCREENING COLORECTAL CANCER SCREENING [facility] Start: [address] COLONOGRAPHY [facility] Start: 2003 FECAL OCCULT BLOOD FECAL OCCULT BLOOD [facility] Start: 2003 Prostate specific antigen measurement Prostate Cancer Screening Discussion [facility] Start: 2003 Screening for malignant neoplasm of colon [facility] Start: 2003 SIGMOIDOSCOPY SIGMOIDOSCOPY [facility] Start: 1993 Lipid panel Lipid Screening [facility] Start: 1993 LIPID SCREEN LIPID SCREEN [facility] Start: 1977 Pneumococcal Vaccine: 50+ (1 of 2 - PCV) Pneumococcal Vaccine: 50+ (1 of 2 - PCV) [facility] Start: 1977 Urine microalbumin profile [facility]iot Start: 1976 ANNUAL PCP TEAM CHRONIC DISEASE VISIT ANNUAL PCP TEAM CHRONIC DISEASE VISIT [facility] Start: 1976 Anxiety Screening Anxiety Screening [facility] Start: 1976 BP CONTROLLED (<130/80) BP CONTROLLED (<130/80) [facility] Start: 1976 Depression Screening Depression Screening [facility] Start: 1976 Hepatitis B surface antibody level LDL CHOLESTEROL [facility] Start: 1976 HEPATITIS C SCREENING HEPATITIS C SCREENING [facility] Start: 1976 Hepatitis C screening Hepatitis C Screening [facility] Start: 1976 HIV SCREENING HIV SCREENING [facility] Start: 1970 Adult depression screening assessment DEPRESSION SCREENING [facility] Start: 1968 Diabetic foot examination Diabetic Foot Exam [facility] ic Start: 1968 Hepatitis B screening Urine Albumin:Creatinine Ratio [facility] Start: 1963 Hemoglobin A1c measurement HbA1C [facility] Start: 1958 Abdominal aortic aneurysm screening Abdominal Aortic Aneurysm Screening [facility] Start: 1958 Screening for malignant neoplasm of colon [facility] CORNEAL TOPOGRAPHY A TLAS OU (BOTH EYES) CORNEAL TOPOGRAPHY ATLAS OU (BOTH EYES) OPHT Imaging Routine Combined forms of age-related cataract of right eye Combined forms of age-related cataract of left eye 03/12/2025 10:37 AM EDT [facility] Work Phone: End: 02-03-2023 ECG COMPLETE ECG COMPLETE ECG Routine Persistent atrial fibrillation (HCC) 1 Occurrences starting 02/03/2022 until 02/03/2023 [facility] Work Phone: Comment on above: 1 Occurrences starting 02/03/2022 until 02/03/2023 End: 06-27-2025 ECG COMPLETE ECG COMPLETE ECG Routine Atrial fibrillation, unspecified type (HCC) 1 Occurrences starting 06/27/2024 until 06/27/2025 [facility] Work Phone: Comment on above: 1 Occurrences starting 06/27/2024 until 06/27/2025 Oph bmtry prtl coher intrfrmtry io lens pwr rosa OPHTHALMIC BIOMETRY BY PARTIAL COHERENCE INTERFEROMETRY W/INTRAOCULAR LENS POWER CALCULATION Combined forms of age-related cataract of left eye Hx of LASIK Type 2 diabetes mellitus without retinopathy (HCC) Nonexudative age-related macular degeneration, bilateral, early dry 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 [facility] Xcapsl ctrc rmvl ins j io lens prosth w/o ecp PHACOEMULSIFICATION CATARACT IMPLANT INTRAOCULAR LENS W/O ENDOSCOPIC CYCLOPHOTOCOAGULATION Combined forms of age-related cataract of left eye Hx of LASIK Type 2 diabetes mellitus without retinopathy (HCC) Nonexudative age-related macular degeneration, bilateral, early dry 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 [facility] Immunizations Immunization Date Immunization Notes Care Provider Fa latoya 08-31-2021 SARS-CoV-2 (COVID-19 ) Ad26 vaccine, recombinant Ursula Love [facility] Comment on above: Result Comment: 2021: [id number] 07-23-2021 influenza virus vaccine, unspecified formulation Ursula Love [facility] 12-23-2020 SARS-CoV-2 (COVID-19 ) Ad26 vaccine, recombinant Ursula Love [facility] 07-30-2018 influenza virus vaccine, unspecified formulation Ursula Love [facility] NEGATED: Highlighted row has not occurred!01-30-2025 influenza virus vaccine, unspecified formulation Ursula Love [facility] NEGATED: Highlighted row has not occurred!07-03-2023 influenza virus vaccine, unspecified formulation Ursula Love [facility] Payers Date Payer Category Payer Private Health Insurance [id number] 2023 Unknown 2023 Unknown [id number] 2023 Medicare [id number] 2023 Medicare [id number] 2021 Unknown SHELLIE LAWRENCE PPO [id number] 2021-Present [phone] [id number] [place] [address] PPO [id number] 1959 Unknown [id number] 1958 Unknown [id number] 2.16.840.1.466466.3.579.2.5 93 1958 Unknown [id number] 2.16.840.1.634056.3.579.2.5 93 1958 Unknown [id number] 2.16.840.1.505383.3.579.2.1 1958 Unknown [id number] 2.16.840.1.650752.3.579.2.1 1958 Unknown [id number] 2.16.840.1.712575.3.579.2.7 1958 Unknown [id number] 2.16.840.1.780585.3.579.2.7 1958 Unknown [id number] 2.16.840.1.315098.3.579.2.7 1958 Unknown [id number] 2.16.840.1.249930.3.579.2.7 1958 Unknown [id number] 2.16.840.1.071525.3.579.2.7 1958 Unknown [id number] 2.16.840.1.203615.3.579.2.7 1958 Unknown [id number] 2.16.840.1.908380.3.579.2.7 1958 Unknown [id number] 2.16.840.1.232227.3.579.2.7 1958 Unknown [id number] 2.16.840.1.344141.3.579.2.7 1958 Unknown [id number] 2.16.840.1.427536.3.579.2.7 1958 Unknown [id number] 2.16.840.1.039037.3.579.2.7 1958 Unknown [id number] 2.16.840.1.042337.3.579.2.7 1958 Unknown [id number] 2.16.840.1.959586.3.579.2.7 1958 Unknown [id number] 2.16.840.1.456562.3.579.2.7 1958 Unknown [id number] 2.16.840.1.709060.3.579.2.7 27 1958 Unknown [id number] 2.16.840.1.772100.3.579.2.7 27 1958 Unknown [id number] 2.16.840.1.298797.3.579.2.7 27 1958 Unknown [id number] 2.16.840.1.896741.3.579.2.7 27 1958 Unknown [id number] 2.16.840.1.104200.3.579.2.7 27 1958 Unknown [id number] 2.16.840.1.443897.3.579.2.7 27 1958 Unknown [id number] 2.16.840.1.746048.3.579.2.7 27 1958 Unknown [id number] 2.16.840.1.984173.3.579.2.7 27 1958 Unknown [id number] 2.16.840.1.058645.3.579.2.7 27 1958 Unknown [id number] 2.16.840.1.318066.3.579.2.7 27 1958 Unknown [id number] 2.16.840.1.683689.3.579.2.7 27 1958 Unknown [id number] 2.16.840.1.202857.3.579.2.7 27 1958 Unknown [id number] 2.16.840.1.243860.3.579.2.7 27 1958 Unknown [id number] 2.16.840.1.977026.3.579.2.1 259 1958 Unknown [id number] 2.16.840.1.499082.3.579.2.1 259 1958 Unknown [id number] 2.16.840.1.580814.3.579.2.7 27 1958 Unknown [id number] 2.16.840.1.595899.3.579.2.7 27 1958 Unknown [id number] 2.16.840.1.633413.3.579.2.7 27 1958 Unknown [id number] 2.16.840.1.339201.3.579.2.7 27 1958 Unknown [id number] 2.16.840.1.567661.3.579.2.7 Social History Date Type Detail Facility Start: 08-25-2014 End: 03-06-2025 Tobacco smoking status NHIS Ex-smoker [facility] Comment on above: Quit in 2013 after M I quit age 53 (39 pack years) quit 2013. former [facility]. Start: [birth year]25-1957 End: 08-09-2014 History of tobacco use Current smoker [facility] Start: 10-25-1955 End: 08-09-2014 History of tobacco use Cigarette Smoker [facility] Start: 08-25-2014 End: 03-06-2025 Cigarettes smoked current (pack per day) - Reported 0.5 [facility] Start: 08-25-2014 End: 03-06-2025 Tobacco use and exposure Smokeless tobacco non-user [facility] Start: 02-03-2022 End: 04-03-2025 Alcohol intake Current drinker of alcohol (finding) [facility] Start: 1960 Sex Assigned At Not on file C [facility] Start: 01-24-2022 End: 02-03-2022 Exposure to SARS-CoV-2 (event) Not sure [facility] Tobacco smoking status No Smokin g Status Entered [facility] Start: 02-03-2022 End: 03-06-2025 Sex Assigned At Male [facility] Start: 04-01-2022 End: 02-25-2025 Tobacco smoking status Never smoked tobacco (finding) [facility] Tobacco smoking status Never [facility] Comment on above: Quit in 2013 after M I quit age 53 (39 pack years) quit 2013. former sm [facility]. Sexual Orientation [facility] Start: 08-25-2014 Sex Male (finding) [facility] Tobacco smoking stat us NHIS Tobacco smoking consumption unknown [facility] Medical Equipment Procedure Code Equipment Code Equipment [...] Strips, to check BS once daily E11.9, [id number], Supply, 179, cm, 03/26/24 10:53:00 EDT, [...] Strips, to check BS once daily E11.9, [id number], Supply, 179, cm, 03/26/24 10:53:00 EDT, Height/Length Dosing, 86, kg, 03/26/24 10:53:00 EDT, Weight Dosing Start: 2024 lancets, See Instructions, lancet(s), use lancet to monitor BS daily- E11.9, Supply Start: 10-17-2024 lancets, See Instructions, 100 lancet(s), 1, use lancet to monitor BS once daily- E11.9, [id number], Supply, 179, cm, 09/09/24 [...] lancet to monitor BS once daily- E11.9, [id number], Supply, 179, cm, 09/09/24 11:22:00 EST, Height/Length Dosing, 79.8, kg, 09/09/24 11:22:00 EST, Weight Dosing Start: 10-17-2024 One Touch Ultra 2 Test Strips, See Instructions, 100 strip(s), 0, One Touch Ultra 2 Glucometer Test Strips, to check BS once daily E11.9, [id number], Supply, 179, cm, 09/09/24 11:22:00 EST, Height/Length Dosing, 79.8, kg, 09/09/24 11:22:00 EST, Weight Dosing Start: 10-17-2024 lancets, See Instructions, lancet(s), use lancet to monitor BS daily- E11.9, Supply Start: 10-17-2024 lancets, See Instructions, 100 lancet(s), 1, use lancet to monitor BS once daily- E11.9, [id number], Supply, 179, cm, 09/09/24 11:22:00 EST, Height/Length Dosing, 79.8, kg, 09/09/24 11:22:00 EST, Weight Dosing Start: 10-17-2024 One Touch Ultra 2 Test Strips, See Instructions, 100 strip(s), 0, One Touch Ultra 2 Glucometer Test Strips, to check BS once daily E11.9, [id number], Supply, 179, cm, 09/09/24 11:22:00 EST, Height/Length Dosing, 79.8, kg, 09/09/24 11:22:00 EST, Weight Dosing Start: 10-17-2024 lancets, See Instructions, lancet(s), use lancet to monitor BS daily- E11.9, Supply Start: 10-17-2024 lancets, See Instructions, 100 lancet(s), 1, use lancet to monitor BS once daily- E11.9, [id number], Supply, 179, cm, 09/09/24 11:22:00 EST, Height/Length Dosing, 79.8, kg, 09/09/24 11:22:00 EST, Weight Dosing Start: 10-17-2024 One Touch Ultra 2 Test Strips, See Instructions, 100 strip(s), 0, One Touch Ultra 2 Glucometer Test Strips, to check BS once daily E11.9, [id number], Supply, 179, cm, 09/09/24 11:22:00 EST, Height/Length Dosing, 79.8, kg, 09/09/24 11:22:00 EST, Weight Dosing Start: 10-17-2024 lancets, See Instructions, lancet(s), use lancet to monitor BS daily- E11.9, Supply Start: 10-17-2024 lancets, See Instructions, 100 lancet(s), 1, use lancet to monitor BS once daily- E11.9, [id number], Supply, 179, cm, 09/09/24 11:22:00 EST, Height/Length Dosing, 79.8, kg, 09/09/24 11:22:00 EST, Weight Dosing Start: 10-17-2024 One Touch Ultra 2 Test Strips, See Instructions, 100 strip(s), 0, One Touch Ultra 2 Glucometer Test Strips, to check BS once daily E11.9, [id number], Supply, 179, cm, 09/09/24 11:22:00 EST, Height/Length Dosing, 79.8, kg, 09/09/24 11:22:00 EST, Weight Dosing Start: 10-17-2024 Start: 10-17-2024 [id number] [place] on [facility] [id number] Start: 03-19-2025 Goals Date Patient Goal Desired Activity /State 12-28-2023 Functional Status Date Assessment Result Facility 08-16-2023 Functional Status N/A [facility] 04-01-2022 Functional Status Telehealth Patient [facility] 07-11-2017 Are you deaf, or do you have serious difficulty hearing No 07/11/2017 10:02 AM Corazon Patiño RN No [facility] 07-11-2017 Are you blind, or do you have serious difficulty seeing, even when wearing glasses No 07/11/2017 10:02 AM Corazon Patiño RN No [facility] 07-11-2017 Do you have serious difficulty walking or climbing stairs No 07/11/2017 10:02 AM Corazon Patiño RN No [facility] 07-11-2017 Do you have difficul ty dressing or bathing No 07/11/2017 10:02 AM Corazon Patiño RN No [facility] 07-11-2017 Because of a physica l, mental, or emotional condition, do you have difficulty doing errands alone such as visiting a physician's office or shopping No 07/11/2017 10:02 AM Corazon Patiño RN No [facility] Mental Status Date Assessment Result Facility 07-11-2017 Because of a physica l, mental, or emotional condition, do you have serious difficulty concentrating, remembering, or making decisions No 07/11/2017 10:02 AM Corazon Patiño RN No [facility] Clinical Notes 04-01-2022 to 04-03-2025 Adam Ellsworth V, MD - 04/03/2025 2:15 PM AARONTSonia Bautista APRN-[facility] - 03/31/2025 9:40 AM Neida Alvarado COA - 03/12/2025 10:37 AM Munira Gonzalez APRN.[facility] - 03/12/2025 9:00 AM EDTRadiology Note Date & Type Note Facility 04-03-2025 Note HNO ID: [id number] Author: ADAM ELLSWORTH MD Service: ? Author Type: Physician Type: Progress Notes Filed: 04/03/2025 15:12 Note Text: The documentation for this note was completed by LEO Robledo acting as a scribe for Adam ELLSWORTH MD. 04/03/2025 2:15 PM. ASSESSMENT / PLAN: 1. Combined cataract, left eye - Offered cataract extraction by phacoemulsification and intraocular lens implant with Dr. Ellsworth, left eye - Aim: plano - Counseled re: guarded prognosis with respect to refractive outcome given history of Laser in situ keratomileusis - Flomax/alpha-chip? No - Toric candidate: No - PanOptix candidate: No - Anesthesia: Topical with MAC - Contact lens use No - History of LASIK/PRK/RK Yes, myopic - Discussed initiate twice daily eyelid scrubs pending U/S biometry and surgery - Comanage with Dr Umanzor; [facility] POD #1 Cataract Presurgical Documentation Cataract: Left eye (OS) Current Visual Acuity Right Eye Distance CC 20/30 Left Eye Distance CC 20/30 Best Corrected Vision Right Eye 20/20-2 Best Corrected Vision Left Eye 20/20-2 Glare Testing: Right Eye High 20/60 Left Eye High 20/60 Visual Function: Marcelle Doherty states that the decline in vision from the cataract impedes his abilities as listed in the HPI, as well as other activities of daily living. Marcelle Doherty has confirmed that he is no longer able to function adequately on a day-to-day basis because of his current visual condition. Further, it is my medical opinion that the cataract is the primary cause, or at least a significantly contributory cause of his visual dysfunction. With uncomplicated cataract surgery and lens implantation, it is my expectation that his visual function and quality of life will improve significantly. The risks, benefits, alternatives, personnel and complications of cataract surgery with lens implantation were discussed with Marcelle Doherty in detail. These included, but are not limited to: infection, bleeding, loss of vision, and the need for additional surgery. he appeared to understand and asked that I proceed with plans for surgery. Patient acknowledges possible need for glasses after procedure. Intraocular lens options were discussed with patient. If patient was a good candidate for multifocal Intraocular lenses, risk of halos, glare, and possible need for glasses was discussed. Informed consent form signed by physician and patient. Literature regarding cataract and cataract extraction by phacoemulsification offered. Return for preadmission testing, biometry AND intraocular lens calculations prior to surgery. The patient was offered a surgery/procedure at a [facility] facility. The surgeon/proceduralist and patient have discussed in detail the risk of exposure to and/or potential harm posed by the COVID-19 virus with having a surgery/procedure at this time versus the risk of delaying the surgery/procedure. It is not possible to know either the risk of delaying the surgery or procedure or chance of getting an infection with perfect accuracy, but a joint decision was made between the patient and the surgeon/proceduralist to proceed at this time with the scheduled surgery/procedure as indicated on the consent form. I have confirmed and edited as necessary the relevant HPI, ophthalmic history, ROS, and the neuro exam findings as obtained by others. I have seen and examined Marcelle Doherty. I have discussed the case and the management of this patient's care with the Resident/Fellow, if applicable. I also have reviewed and agree with the assessment and plan as stated above and agree with all of its relevant components. Adam ELLSWORTH MD April 03, 2025 2:15 PM [facility] 04-03-2025 History of Present illness Narrative The documentation for this note was completed by Liz Valladares, COA acting as a scribe for Adam ELLSWORTH MD. 04/03/2025 2:15 PM. ASSESSMENT / PLAN: 1. Combined cataract, left eye - Offered cataract extraction by phacoemulsification and intraocular lens implant with Dr. Ellsworth, left eye - Aim: plano - Counseled re: guarded prognosis with respect to refractive outcome given history of Laser in situ keratomileusis - Flomax/alpha-chip? No - Toric candidate: No - PanOptix candidate: No - Anesthesia: Topical with MAC - Contact lens use No - History of LASIK/PRK/RK Yes, myopic - Discussed initiate twice daily eyelid scrubs pending U/S biometry and surgery - Comanage with Dr Umanzor; [facility] POD #1 Cataract Presurgical Documentation Cataract: Left eye (OS) Current Visual Acuity Right Eye Distance CC 20/30 Left Eye Distance CC 20/30 Best Corrected Vision Right Eye 20/20-2 Best Corrected Vision Left Eye 20/20-2 Glare Testing: Right Eye High 20/60 Left Eye High 20/60 Visual Function: Marcelle Doherty states that the decline in vision from the cataract impedes his abilities as listed in the HPI, as well as other activities of daily living. Marcelle Doherty has confirmed that he is no longer able to function adequately on a day-to-day basis because of his current visual condition. Further, it is my medical opinion that the cataract is the primary cause, or at least a significantly contributory cause of his visual dysfunction. With uncomplicated cataract surgery and lens implantation, it is my expectation that his visual function and quality of life will improve significantly. The risks, benefits, alternatives, personnel and complications of cataract surgery with lens implantation were discussed with Marcelle Doherty in detail. These included, but are not limited to: infection, bleeding, loss of vision, and the need for additional surgery. he appeared to understand and asked that I proceed with plans for surgery. Patient acknowledges possible need for glasses after procedure. Intraocular lens options were discussed with patient. If patient was a good candidate for multifocal Intraocular lenses, risk of halos, glare, and possible need for glasses was discussed. Informed consent form signed by physician and patient. Literature regarding cataract and cataract extraction by phacoemulsification offered. Return for preadmission testing, biometry & intraocular lens calculations prior to surgery. The patient was offered a surgery/procedure at a [facility] facility. The surgeon/proceduralist and patient have discussed in detail the risk of exposure to and/or potential harm posed by the COVID-19 virus with having a surgery/procedure at this time versus the risk of delaying the surgery/procedure. It is not possible to know either the risk of delaying the surgery or procedure or chance of getting an infection with perfect accuracy, but a joint decision was made between the patient and the surgeon/proceduralist to proceed at this time with the scheduled surgery/procedure as indicated on the consent form. I have confirmed and edited as necessary the relevant HPI, ophthalmic history, ROS, and the neuro exam findings as obtained by others. I have seen and examined Marcelle Doherty. I have discussed the case and the management of this patient's care with the Resident/Fellow, if applicable. I also have reviewed and agree with the assessment and plan as stated above and agree with all of its relevant components. Adam ELLSWORTH MD April 03, 2025 2:15 PM documented in this encounter [facility] 03-31-2025 History of Present illness Narrative Follow up Diagnosis: ISK Location: Right upper eyelid Last visit: 02/25/2025 Symptoms: None Status: Not completely resolved Procedure performed: Cryotherapy Number of treatments to date: 1 Current treatment: Here today for another treatment All pertinent medical history, medications, and allergies were reviewed. General Exam: alert, oriented to person, place, and time, normal affect, well appearing A focused exam completed based on patient reported problems, see below: Skin Exam 1. INFLAMED SEBORRHEIC KERATOSIS Right Upper Eyelid Inflamed seborrheic keratoses: pink and brown stuck on verrucous scaly papule with surrounding erythema and bloody crust. The patient was informed that symptomatic seborrheic keratoses are benign growths that become inflamed, itchy, tender, traumatized, caught on clothing, or bleed. Symptomatic lesions can be treated with cryotherapy or curretage. Thicker lesions treated with cryotherapy may require more than one treatment. The patient was instructed to notify the office if abnormal redness or tenderness develops at the treatment site. Cryotherapy today, see procedure note. Diagnosis: Inflamed seborrheic keratosis Indication: Inflamed Consent: Verbal consent was obtained and risks were discussed, including, but not limited to risks of scarring, darker or scuba diving teacher pigmentary changes, recurrence, incomplete removal and infection. Method: Liquid nitrogen was used to treat the lesion(s) with two 5-10 second freeze-thaw cycles Number of lesions treated: 1 Post-procedure instructions: Instructions were given orally and in writing. The office will be contacted if the lesion fails to resolve despite treatment, or if a side effect develops such as abnormal crusting, scabbing, redness or tenderness Cryotherapy, skin lesion - Right Upper Eyelid Next Visit: as scheduled documented in this encounter [facility] 03-12-2025 Note HNO ID: [id number] Author: NEIDA COLEY COA Service: ? Author Type: Handbag Designer Type: Progress Notes Filed: 03/12/2025 10:38 Note Text: Confirmed Aim: [place] OU PATIENT UNDERSTANDS HE WILL NEED GLASSES FOR NEAR AND INTERMEDIATE VISION. HISTORY OF MYOPIC LASIK BOTH EYES Written pre-op instructions regarding eye drops and care reviewed with patient. LEO Albrecht March 12, 2025 10:37 AM [facility] 03-12-2025 Note Date of Procedure 03/12/2025. Handbag Designer Information Inseam Leveler: TO. Notes Measurements only - see Procedure Record under Scanned Documents for signed results. [facility] 03-12-2025 Note Date of Procedure 03/12/2025. Handbag Designer Information Inseam Leveler: TO. ASCAN RIGHT EYE AL 24.64 ASCAN LEFT EYE AL 24.53. [facility] 03-12-2025 History of Present illness Narrative Confirmed Aim: [place] OU PATIENT UNDERSTANDS HE WILL NEED GLASSES FOR NEAR AND INTERMEDIATE VISION. HISTORY OF MYOPIC LASIK BOTH EYES Written pre-op instructions regarding eye drops and care reviewed with patient. LEO Albrecht March 12, 2025 10:37 AM documented in this encounter [facility] 03-12-2025 History and physical note HISTORY AND PHYSICAL EXAMINATION SERVICE DATE: 03/12/2025 SERVICE TIME: Munira Marshall APRN.[facility] PRIMARY CARE PHYSICIAN: Ursula Love MD REASON FOR VISIT: Marcelle Doherty is a 64 year old male who is scheduled for Right - PHACOEMULSIFICATION CATARACT IMPLANT INTRAOCULAR LENS W/O ENDOSCOPIC CYCLOPHOTOCOAGULATION Right - OPHTHALMIC BIOMETRY BY PARTIAL COHERENCE INTERFEROMETRY W/INTRAOCULAR LENS POWER CALCULATION at the request of Dr. Humera Syed for consultation. My final recommendation will be communicated back to the requesting physician by way of shared medical record or letter. Assessment Patient has the following medical conditions which may affect fletcher-operative course: GERD (gastroesophageal reflux disease) Assessment: Controlled with PPI Type 2 diabetes mellitus without retinopathy (HCC) Assessment: Complaint with Metformin Instructions provided to patient on how long to hold diabetic medications prior to procedure Hypertension Assessment: Controlled with medication management 172/77 in office today Patient has whitecoat syndrome Takes his blood pressure at home daily showed me the readings typically 100-120/60-70's Denies any chest pain, shortness of breath, headache, dizziness or lightheadedness Atrial fibrillation (HCC) Assessment: S/p ablation in 2016 at [facility] Redo ablation in October of this year with success No recurrence On metoprolol twice daily and diltiazem as rescue Anticoagulated on Eliquis RRR on exam today Follows with [place] [facility] CAD (coronary artery disease) Assessment: Stable Negative stress test in 2022 Denies any chest pain or shortness of breath On atorvastatin, metoprolol, and ranexa Dyslipidemia Assessment: Compliant with Statin AAA (abdominal aortic aneurysm) Assessment: Stable monitored by Cardiology ANESTHESIA FINDINGS: Intubation History: No history of difficult intubation Significant Anesthesia Considerations: none Airway History: No history of difficult airway Browne Activity Status Index: METS: Walk indoors, such as around the house (1.75 METs) Do light work around the house, such as dusting or washing dishes (2.70 METs) Take care of self; that is eating, dressing, bathing, using the toilet (2.75 METs) Walk a block or two on level ground (2.75 METs) Do moderate work around the house, such as vacuuming, sweeping floors, or carrying in groceries (3.50 METs) Climb a flight of stairs or walk up a hill (5.50 METs) DASI Score: 18.95 Patient denies any chest pain or undue shortness of breath with the above physical activity. STOP-Bang Score: Has or is being treated for high blood pressure Patient over 50 years old Male patient Denies snoring loudly Denies feeling tired, fatigued, or sleepy during the daytime Has not been observed to stop breathing or choking/gasping during sleep BMI less than or equal to 35 kg/m^2 Does not have a large neck STOP-Bang Score: 3 [id number] Score: Age: 65-74 Sex: male CHF history: No Hypertension history: Yes Stroke/TIA/thromboembolism history: No Vascular disease history: Yes Diabetes history: Yes [id number] Score: 4 ARISCAT Score: Age: 51-80 Preoperative SpO2: >=96% Respiratory infection in the last month: No Preoperative anemia: No Surgical incision: peripheral Duration of surgery: <2 hrs Emergency procedure: No ARISCAT Score: 3 Airway Exam: General: Normal appearance There is no height or weight on file to calculate BMI. Mallampati Score is CLASS II ULBT: Class II - Lower incisors can bite the upper lip below the ying line Neck: Normal appearance and function, Distance from hyoid to mentum during neck extension is at least 3 finger breaths Mouth: Normal tongue size and Mouth opening greater than 2 finger breaths Dentition: Intact and Bridge Airway History: No abnormal airway history Planned Anesthetic: Per anesthesia choice Prepared for surgery: This patient is optimally prepared for surgery. CONSULTS: Patient does not require consults for optimization at this time. The Following Tests/Procedures Have Been Initiated: Labs not indicated per PACC protocol, EKG not indicated per PACC protocol Planned Anesthetic: Per anesthesia choice Subjective CHIEF COMPLAINT: Visual Changes HPI: 64 year old year old presents today with complaints of difficulty with vision for ~ 1 year. Found to have cataract on exam. Denies pain. No relieving factors. PAST MEDICAL HISTORY Diagnosis Date Atrial fibrillation (HCC) 2013 CAD (coronary artery disease) 09/02/2014 Diabetes mellitus (HCC) Dyslipidemia Hypertension Macular degeneration Per Dr. Umanzor Metabolic syndrome PAST SURGICAL HISTORY Procedure Laterality Date AFIB PVI W/COMPL EP STUDY 07/10/2017 CARDIAC CATH 09/02/2014 DIRECTOR CLIENT SERVICES of proximal RCA. 70% ostial D1. Preserved ejection fraction EMG KERATOMILEUSIS Bilateral 07/06/2000 PAST SURGICAL HISTORY OF right shoulder surgery PAST SURGICAL HISTORY OF Bilateral 1999 myopic lasik OU aimed for distance done in [place] FAMILY HISTORY Problem Relation Age of Onset Cataract Father Heart Father Cataract Mother Heart Mother SOCIAL HISTORY: Social History Tobacco Use Smoking status: Former Current packs/day: 0.00 Types: Cigarettes Quit date: 08/09/2014 Years since quittin.5 Smokeless tobacco: Never Vaping Use Vaping status: Never Used Substance Use Topics Alcohol use: Yes Alcohol/week: 10.0 standard drinks of alcohol Types: 10 Cans of Beer (12oz) per week Drug use: No Prior to Admission medications as of 03/12/25 0903 Medication Sig Last Dose Taking apixaban (ELIQUIS) 5 mg tab(s) Take 5 mg by mouth. Yes ranolazine ER (RANEXA) 500 mg 12 hr tablet Take 500 mg by mouth. Yes amLODIPine (NORVASC) 5 mg tablet amlodipine 5 mg tablet TAKE ONE TABLET BY MOUTH DAILY Yes atorvastatin (LIPITOR) 80 mg tablet atorvastatin 80 mg tablet Yes cloNIDine HCl (CATAPRES) 0.1 mg tablet clonidine HCl 0.1 mg tablet TAKE ONE TABLET BY MOUTH TWICE A DAY Yes isosorbide mononitrate ER (IMDUR) 120 mg 24 hr tablet 120 mg once daily. Yes lisinopril (ZESTRIL, PRINIVIL) 20 mg tablet lisinopril 20 mg tablet TAKE ONE TABLET BY MOUTH ONCE DAILY Yes metFORMIN (GLUCOPHAGE) 500 mg tablet metformin 500 mg tablet TAKE TWO TABLETS BY MOUTH TWICE A DAY Yes metoprolol succinate ER (TOPROL XL) 200 mg 24 hr tablet Take 200 mg by mouth once daily. Yes dilTIAZem (CARDIZEM) 30 mg tablet Take 1 tablet by mouth as needed (1-2 tablets every 6 hours as needed for rapid heart beat (AFIB)). Yes omeprazole (PRILOSEC) 20 mg capsule Take 1 capsule by mouth once daily. Yes No medication comments found. ALLERGIES Allergen Reactions Penicillins Hives Covid Immunization Dates Current Care Gaps Covid-19 Vaccine () Overdue since 06/16/2024 08/31/2021 Imm Admin: COVID-19 vaccine ([employer]) 12/23/2020 Imm Admin: COVID-19 vaccine ([employer]) REVIEW OF SYSTEMS: PAIN ASSESSMENT: General: No weight loss, malaise or fevers. Neuro: No history of TIA's, stroke, DIFFUSION OPERATOR tumor, impaired sensorium, hemiplegia, paraplegia or quadraplegia. No neurological symptoms or problems. Respiratory: No history of current cough or dyspnea, or pneumonia in the past 6 weeks. No history of respiratory/pulmonary symptoms or problems. Cardiovascular: Negative for Recent FL, Angina, Chest Pain, PVD, DVT/PE + HTN + HLD + CAD + A-FIB s/p ablation 11/14/2024 +AAA +Former Smoker 2013 GI: Negative for Nausea, Vomiting, Abdominal pain +GERD : Negative for dysuria, incontinence, hematuria, and hesitancy Endocrine: Diabetes Mellitus on oral agent Hematology: Chronic anti-coagulation / platelet meds (DOAC) +Anemia +Thrombocytopenia Oncology: No history of CA metastasis, chemo within 30 days, or radiotherapy within 90 days. Has not lost 10% of body wt in 6 months. No history of oncological symptoms or problems. Psych: No history of psychiatric symptoms or problems. Musculoskeletal: Joint pain Skin: Negative for lesions, rash and itching. Objective PHYSICAL EXAM: VITALS: BP 172/77[118/66 taken at home.[ Pulse 67 Temp (Src) 97.9 (Oral) Resp 12 Ht 5' 10 (1.78m) Wt 189 lb 9.5 oz (86.0kg) SpO2 99% BMI 27.20 kg/(m^2). General: Alert and oriented Skin: Normal color, no rash, no lesions. HEENT: EOM, pupils equal, round and reactive. Cardiovascular: Normal S1 & S2, no rubs, murmurs or gallops. No JVD. Pulse regular. Lungs: Normal breath sounds, no wheezes or crackles. Abdomen: Soft, non-tender, no rigidity. Extremities: No deformity, no edema or tenderness, no joint swelling or clubbing. Neurological: Normal cognition and motor skills. Pulses: Carotid and radial pulses normal +2. Diagnostic tests reviewed for today's visit: CTA chest 07/16/2024 4.2cm AscAo thoracic and 4.1cm descending thoracic aortic aneurysm with underlying calcific atherosclerosis EKG 11/14/2024 Result Value Ventricular Rate 61 Atrial Rate 61 OK Interval 170 QRS DURATION 92 QT Interval 430 QTC CALCULATION(BAZETT) 432 P [place] 13 R-[place] 28 T Wave [place] 61 Impression Normal sinus rhythm Normal ECG Instructions Given to Patient: Instructions located in the after visit summary. Patient given verbal and written preop instructions and voices comprehension and compliance. SIGNATURE: Munira Marshall APRN.CNP PATIENT NAME: Marcelle Doherty DATE: 03/12/2025 TIME: Munira Marshall APRN.CNP [facility] 03-12-2025 History and physical note HISTORY AND PHYSICAL EXAMINATION SERVICE DATE: 03/12/2025 SERVICE TIME: Munira Marshall APRN.CNP PRIMARY CARE PHYSICIAN: Ursula Love MD REASON FOR VISIT: Marcelle Doherty is a 64 year old male who is scheduled for Right - PHACOEMULSIFICATION CATARACT IMPLANT INTRAOCULAR LENS W/O ENDOSCOPIC CYCLOPHOTOCOAGULATION Right - OPHTHALMIC BIOMETRY BY PARTIAL COHERENCE INTERFEROMETRY W/INTRAOCULAR LENS POWER CALCULATION at the request of Dr. Humera Syed for consultation. My final recommendation will be communicated back to the requesting physician by way of shared medical record or letter. Assessment Patient has the following medical conditions which may affect fletcher-operative course: GERD (gastroesophageal reflux disease) Assessment: Controlled with PPI Type 2 diabetes mellitus without retinopathy (HCC) Assessment: Complaint with Metformin Instructions provided to patient on how long to hold diabetic medications prior to procedure Hypertension Assessment: Controlled with medication management 172/77 in office today Patient has whitecoat syndrome Takes his blood pressure at home daily showed me the readings typically 100-120/60-70's Denies any chest pain, shortness of breath, headache, dizziness or lightheadedness Atrial fibrillation (HCC) Assessment: S/p ablation in 2016 at [facility] Redo ablation in October of this year with success No recurrence On metoprolol twice daily and diltiazem as rescue Anticoagulated on Eliquis RRR on exam today Follows with [place] [facility] CAD (coronary artery disease) Assessment: Stable Negative stress test in 2022 Denies any chest pain or shortness of breath On atorvastatin, metoprolol, and ranexa Dyslipidemia Assessment: Compliant with Statin AAA (abdominal aortic aneurysm) Assessment: Stable monitored by Cardiology ANESTHESIA FINDINGS: Intubation History: No history of difficult intubation Significant Anesthesia Considerations: none Airway History: No history of difficult airway Browne Activity Status Index: METS: Walk indoors, such as around the house (1.75 METs) Do light work around the house, such as dusting or washing dishes (2.70 METs) Take care of self; that is eating, dressing, bathing, using the toilet (2.75 METs) Walk a block or two on level ground (2.75 METs) Do moderate work around the house, such as vacuuming, sweeping floors, or carrying in groceries (3.50 METs) Climb a flight of stairs or walk up a hill (5.50 METs) DASI Score: 18.95 Patient denies any chest pain or undue shortness of breath with the above physical activity. STOP-Bang Score: Has or is being treated for high blood pressure Patient over 50 years old Male patient Denies snoring loudly Denies feeling tired, fatigued, or sleepy during the daytime Has not been observed to stop breathing or choking/gasping during sleep BMI less than or equal to 35 kg/m^2 Does not have a large neck STOP-Bang Score: 3 [id number] Score: Age: 65-74 Sex: male CHF history: No Hypertension history: Yes Stroke/TIA/thromboembolism history: No Vascular disease history: Yes Diabetes history: Yes [id number] Score: 4 ARISCAT Score: Age: 51-80 Preoperative SpO2: >=96% Respiratory infection in the last month: No Preoperative anemia: No Surgical incision: peripheral Duration of surgery: <2 hrs Emergency procedure: No ARISCAT Score: 3 Airway Exam: General: Normal appearance There is no height or weight on file to calculate BMI. Mallampati Score is CLASS II ULBT: Class II - Lower incisors can bite the upper lip below the ying line Neck: Normal appearance and function, Distance from hyoid to mentum during neck extension is at least 3 finger breaths Mouth: Normal tongue size and Mouth opening greater than 2 finger breaths Dentition: Intact and Bridge Airway History: No abnormal airway history Planned Anesthetic: Per anesthesia choice Prepared for surgery: This patient is optimally prepared for surgery. CONSULTS: Patient does not require consults for optimization at this time. The Following Tests/Procedures Have Been Initiated: Labs not indicated per [facility] protocol, EKG not indicated per [facility] protocol Planned Anesthetic: Per anesthesia choice Subjective CHIEF COMPLAINT: Visual Changes HPI: 64 year old year old presents today with complaints of difficulty with vision for ~ 1 year. Found to have cataract on exam. Denies pain. No relieving factors. PAST MEDICAL HISTORY Diagnosis Date Atrial fibrillation (HCC) 2013 CAD (coronary artery disease) 09/02/2014 Diabetes mellitus (HCC) Dyslipidemia Hypertension Macular degeneration Per Dr. Umanzor Metabolic syndrome PAST SURGICAL HISTORY Procedure Laterality Date AFIB PVI W/COMPL EP STUDY 07/10/2017 CARDIAC CATH 09/02/2014 DIRECTOR CLIENT SERVICES of proximal RCA. 70% ostial D1. Preserved ejection fraction EMG KERATOMILEUSIS Bilateral 07/06/2000 PAST SURGICAL HISTORY OF right shoulder surgery PAST SURGICAL HISTORY OF Bilateral 1999 myopic lasik OU aimed for distance done in [place] FAMILY HISTORY Problem Relation Age of Onset Cataract Father Heart Father Cataract Mother Heart Mother SOCIAL HISTORY: Social History Tobacco Use Smoking status: Former Current packs/day: 0.00 Types: Cigarettes Quit date: 08/09/2014 Years since quittin.5 Smokeless tobacco: Never Vaping Use Vaping status: Never Used Substance Use Topics Alcohol use: Yes Alcohol/week: 10.0 standard drinks of alcohol Types: 10 Cans of Beer (12oz) per week Drug use: No Prior to Admission medications as of 03/12/25 0903 Medication Sig Last Dose Taking apixaban (ELIQUIS) 5 mg tab(s) Take 5 mg by mouth. Yes ranolazine ER (RANEXA) 500 mg 12 hr tablet Take 500 mg by mouth. Yes amLODIPine (NORVASC) 5 mg tablet amlodipine 5 mg tablet TAKE ONE TABLET BY MOUTH DAILY Yes atorvastatin (LIPITOR) 80 mg tablet atorvastatin 80 mg tablet Yes cloNIDine HCl (CATAPRES) 0.1 mg tablet clonidine HCl 0.1 mg tablet TAKE ONE TABLET BY MOUTH TWICE A DAY Yes isosorbide mononitrate ER (IMDUR) 120 mg 24 hr tablet 120 mg once daily. Yes lisinopril (ZESTRIL, PRINIVIL) 20 mg tablet lisinopril 20 mg tablet TAKE ONE TABLET BY MOUTH ONCE DAILY Yes metFORMIN (GLUCOPHAGE) 500 mg tablet metformin 500 mg tablet TAKE TWO TABLETS BY MOUTH TWICE A DAY Yes metoprolol succinate ER (TOPROL XL) 200 mg 24 hr tablet Take 200 mg by mouth once daily. Yes dilTIAZem (CARDIZEM) 30 mg tablet Take 1 tablet by mouth as needed (1-2 tablets every 6 hours as needed for rapid heart beat (AFIB)). Yes omeprazole (PRILOSEC) 20 mg capsule Take 1 capsule by mouth once daily. Yes No medication comments found. ALLERGIES Allergen Reactions Penicillins Hives Covid Immunization Dates Current Care Gaps Covid-19 Vaccine () Overdue since 06/16/2024 08/31/2021 Imm Admin: COVID-19 vaccine ([employer]) 12/23/2020 Imm Admin: COVID-19 vaccine ([employer]) REVIEW OF SYSTEMS: PAIN ASSESSMENT: General: No weight loss, malaise or fevers. Neuro: No history of TIA's, stroke, DIFFUSION OPERATOR tumor, impaired sensorium, hemiplegia, paraplegia or quadraplegia. No neurological symptoms or problems. Respiratory: No history of current cough or dyspnea, or pneumonia in the past 6 weeks. No history of respiratory/pulmonary symptoms or problems. Cardiovascular: Negative for Recent FL, Angina, Chest Pain, PVD, DVT/PE + HTN + HLD + CAD + A-FIB s/p ablation 11/14/2024 +AAA +Former Smoker 2013 GI: Negative for Nausea, Vomiting, Abdominal pain +GERD : Negative for dysuria, incontinence, hematuria, and hesitancy Endocrine: Diabetes Mellitus on oral agent Hematology: Chronic anti-coagulation / platelet meds (DOAC) +Anemia +Thrombocytopenia Oncology: No history of CA metastasis, chemo within 30 days, or radiotherapy within 90 days. Has not lost 10% of body wt in 6 months. No history of oncological symptoms or problems. Psych: No history of psychiatric symptoms or problems. Musculoskeletal: Joint pain Skin: Negative for lesions, rash and itching. Objective PHYSICAL EXAM: VITALS: BP 172/77[118/66 taken at home.[ Pulse 67 Temp (Src) 97.9 (Oral) Resp 12 Ht 5' 10 (1.78m) Wt 189 lb 9.5 oz (86.0kg) SpO2 99% BMI 27.20 kg/(m^2). General: Alert and oriented Skin: Normal color, no rash, no lesions. HEENT: EOM, pupils equal, round and reactive. Cardiovascular: Normal S1 & S2, no rubs, murmurs or gallops. No JVD. Pulse regular. Lungs: Normal breath sounds, no wheezes or crackles. Abdomen: Soft, non-tender, no rigidity. Extremities: No deformity, no edema or tenderness, no joint swelling or clubbing. Neurological: Normal cognition and motor skills. Pulses: Carotid and radial pulses normal +2. Diagnostic tests reviewed for today's visit: CTA chest 07/16/2024 4.2cm AscAo thoracic and 4.1cm descending thoracic aortic aneurysm with underlying calcific atherosclerosis EKG 11/14/2024 Result Value Ventricular Rate 61 Atrial Rate 61 OK Interval 170 QRS DURATION 92 QT Interval 430 QTC CALCULATION(BAZETT) 432 P [place] 13 R-[place] 28 T Wave [place] 61 Impression Normal sinus rhythm Normal ECG Instructions Given to Patient: Instructions located in the after visit summary. Patient given verbal and written preop instructions and voices comprehension and compliance. SIGNATURE: Munira Marshall APRN.CNP PATIENT NAME: Marcelle Doherty DATE: 03/12/2025 TIME: Munira Marshall APRN.CNP documented in this encounter [facility] 03-11-2025 Instructions Munira Marshall APRN.CNP - 03/11/2025 12:04 PM EDT Images from the original note were not included. [facility] PATIENT PREOPERATIVE INSTRUCTIONS Your Surgeon has scheduled you for your procedure at this surgery center: [facility]: [phone] --[id number] [place] [address]. Please read below carefully for your personalized instructions. Dietary Restrictions: - No solid food after midnight. - You may have 12 ounces of clear liquids (water, clear juices such as apple juice or gatorade, carbonated beverages, clear tea, black coffee, jello) until 2 hours before scheduled arrival at facility. Medications: Unless instructed differently below, stay on all of your medications until your surgery. Preoperative Instructions for Patient's with Diabetes Mellitus Oral/ Injectable Medication Instructions - Metformin - HOLD DAY OF SURGERY If you are currently using a hhtb-afk-zhbo injectable or oral medication for diabetes or weight loss such as Dulaglutide (Trulicity), Exenatide (Byetta, Bydureon), Liraglutide (Victoza, Saxenda), Semaglutide (Ozempic, Wegovy, Rybelsus), or Tirzepatide (Mounjaro), the medicine should be stopped at least 7 days before surgery. These medicines can cause food to remain in your stomach for a very long time and increase the risks from surgery and anesthesia. Not stopping the medication for a long enough time may result in your surgery being rescheduled. If you start any new medications after today's visit, please contact the surgeon's office. Important Reminders: - If you are prescribed inhalers for breathing, continue using them. - Candy, mints, and tobacco products are NOT permitted the morning of surgery. - Hearing aids, dentures and glasses may be worn the morning of surgery. - NO jewelry, body piercings, makeup, hairpins or contacts are to be worn the day of surgery. If you develop symptoms such as a fever, cold, or flu, or have other changes to your health within TWO DAYS of scheduled surgery or the morning of surgery, please contact the surgery center above. Personal Belongings: -Please have photo ID and insurance cards. -If you do not have a copy of advance directives on file with us, please bring a copy with you on the day of surgery. - Leave ALL valuables and money at home or with family members. For Outpatient Procedures: - YOU MUST HAVE A RESPONSIBLE KEY FILER TAKE YOU HOME. A WINDOWS SERVER ENGINEER OR SENIOR ANIMATOR CANNOT BE MADE A RESPONSIBLE KEY FILER. - We recommend that a responsible person stays with you overnight to take care of you. - You cannot stay in a hotel alone after outpatient surgery. You will not be permitted to have your surgery, if you do not have someone to take care of you. Arrival Time for Surgery: - The Surgery Center or hospital where you are having surgery will call the afternoon before surgery (or Monday for Monday surgery) with a scheduled arrival time. - If you have not heard by 4 pm, please contact the surgery center above. Please be aware that emergency situations arise, which may delay or change your surgical time. If this happens, we will notify you as soon as possible and regret any inconvenience. If you already have an Advance Directive, please fax a copy to [phone] or email to for it to be added to your chart. If you do not have an Advance Directive, you can find the appropriate form and more information at [email or web address]. We recommend that you complete the Advance Directive form found on the website and bring it with you the day of your surgery. It can be witnessed and scanned into your chart that day. Munira Marshall APRN. 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 Author Type: Physician Type: Progress Notes Filed: 03/06/2025 14:45 Note Text: ASSESSMENT/PLAN: Patient educated on all findings: 1. Combined forms of age-related cataract of right eye - ICD9: 366.19, ICD10: H25.811 (primary diagnosis) 2. Combined forms of age-related cataract of left eye - ICD9: 366.19, ICD10: H25.812 CORNEAL TOPOGRAPHY: Less than one diopter, slightly irregular, both eyes; more flattening OS following prior Laser in situ keratomileusis surgery Mac OCT: Normal foveal contour, few drusen OU, no Subretinal fluid, no intraretinal fluid in both eyes Cataract Presurgical Documentation Cataract: Both eyes (OU) Current Visual Acuity Right Eye Distance CC 20/30 Left Eye Distance CC 20/30 Best Corrected Vision Right Eye 20/20-2 Best Corrected Vision Left Eye 20/20-2 Glare Testing: Right Eye High 20/60 Left Eye High 20/60 Visual Function: Marcelle Doherty states that the decline in vision from the cataract impedes his abilities as listed in the HPI, as well as other activities of daily living. Marcelle Doherty has confirmed that he is no longer able to function adequately on a day-to-day basis because of his current visual condition. Further, it is my medical opinion that the cataract is the primary cause, or at least a significantly contributory cause of his visual dysfunction. With uncomplicated cataract surgery and lens implantation, it is my expectation that his visual function and quality of life will improve, significantly. The risks, benefits, alternatives, personnel and complications of cataract surgery with lens implantation were discussed with Marcelle Doherty in detail. he appeared to understand and asked that I proceed with plans for surgery. Offered Phacoemulsification cataract extraction with insertion of intraocular lens by Dr. Syed OD / OS. Patient wishes to proceed with surgery. All questions were answered. A-scan to be performed pre-operatively. Referred by Dr. Burak Umanzor, Thank you for your kind referral! Allergies: PCN - Aim: [place] OU; Patient understands the need for glasses for all near and intermediate vision including reading and computer work. -Has patient had prior refractive surgery? Yes - Anesthesia: Topical with MAC - Diabetes Mellitus Yes - Blood thinner use Yes; He has risk of MARY - Flomax/alpha-chip? No - Able to lie supine Yes - Wants versed Yes - Happy for prayer Yes - Warned of IOL-induced photopsias Yes - Advised there is no guarantee of freedom from glasses Yes; -Discussed possible increased sensitivity and starbursting when exposed to flickering lights such as LED and fluorescent lights after cataract surgery, which usually decreases with time. - Discussed toric Intraocular lens not covered by insurance Yes $1400 per eye - Toric candidate: Insufficient data Offered Toric lens if patient qualifies by Ultrasound measurements. Without the toric IOL, patient was told that they will still need to wear glasses to correct residual astigmatism at all distances. Even with toric IOL, we cannot guarantee no residual astigmatism. - Contact lens use Not currently; did not tolerate multifocal CLs in the past. - e-scribed eye drops - Literature regarding cataract and cataract extraction by phacoemulsification offered. 3. Hx of LASIK - ICD9: V45.69, ICD10: Z98.890 LASIK OU, distance aim, ~2019. He was initially happy with his distance vision OU after the Laser in situ keratomileusis surgery. -Discussed that Intraocular lens power calculation can be more variable after Lasik and that cataract surgery is not refractive surgery and we cannot guarantee 20/20 sc. Pt voices understanding and still wishes to proceed with cataract surgery. -plan to lower bottle height during cataract surgery. 4. Type 2 diabetes mellitus without retinopathy (HCC) - ICD9: 250.00, ICD10: E11.9 -No sign of diabetic retinopathy or clinically significant macular edema in either eye -Controlled on current medications. -Keep blood sugar in low 100s, BP and Cholesterol controlled. -Exercise. -Importance of regular dilated eye exams was stressed. 5. Nonexudative age-related macular degeneration, bilateral, early dry stage - ICD9: 362.51, ICD10: H35.3131 Mild drusen temporal to fovea OU. Pt ed. Unlikely visually significant. Continue daily mutlivitamin and observation with Dr. Umanzor. 6. Insufficiency of tear film of both eyes - ICD9: 375.15, ICD10: H04.123 Dry eyes will persist after cataract surgery. Use artificial tears (such as Refresh, Systane or Theratears) both eyes four or more times daily both before and resuming three days after cataract surgery as needed. 7. PVD (posterior vitreous detachment), bilateral - ICD9: 379.21, ICD10: H43.813 Floaters will persist after cataract surgery. Signs and symptoms of floaters were discussed. We reviewed the signs and symptoms (more content not included)... [facility] 03-04-2025 Note Patient is here toda y for a 2 month follow up appointment. Patient states he is feel really good. Patient does state he does feel an occasional flutter, but he takes a deep breath which resolves the palpitations. Patient states he took an extra Amlodipine prior to his office visit. Review of Systems Cardiovascular: Positive for palpitations (occasional). [facility] 03-04-2025 Note Cardiovascular Medic [facility] SUBJECTIVE Chief Complaint Patient presents with Atrial Fibrillation Hypertension Coronary Artery Disease Marcelle Doherty is a 64 y.o. male here for follow-up. HPI PMHx: CAD with DIRECTOR CLIENT SERVICES of the RCA and a 70% ostial D1 lesion, diabetes mellitus type 2, hypertension, AAA, a.fib s/p ablation at [facility] 06/2017, HLD Anemia - follows with hematology 03/04/2025 He has been feeling well. He has rare palpitations, short lived, non limiting. He continues to have controlled BP readings at home and elevated readings in doctor offices. He reports his BP at home today before his appt was 124/64, HR 53. Denies c/o CP, dyspnea, orthopnea, PND, LE edema, dizziness/LH, syncope. 12/26/2024 He has been feeling well since his recent a.fib ablation. A few days after his prcoedure he had some occasional palpitations but outside of this he has had no epsidoes and has felt well. He eats heart healthy diet. He tries to walk a few miles a day. 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 He expressed concern that his BP is always elevated at any healthcare office. BP is normal at home. Denies c/o CP, dyspnea, orthopnea, PND, LE edema, dizziness/LH, syncope. Patient Active Problem List Diagnosis Abnormal stress test Atrial fibrillation (CMS/HCC) CAD (coronary artery disease) Coronary arteriosclerosis Chronic anticoagulation Dyslipidemia Hypertension Metabolic syndrome Aneurysm of ascending aorta without rupture Aortic aneurysm BMI 28.0-28.9,adult BPH (benign prostatic hyperplasia) Controlled [...] adenoma of rectum AAA (abdominal aortic aneurysm) Hip pain, bilateral Microcytic anemia Spleen enlarged Arthritis of both hips Disorder involving thrombocytopenia Nonexudative age-related macular degeneration Screening for prostate cancer Past Medical History: Diagnosis Date Abnormal ECG Allergic rhinitis Arrhythmia CAD (coronary artery disease) Diabetes mellitus (CMS/HCC) GERD (gastroesophageal reflux disease) Hyperlipidemia Hypertension Irregular heart beat PAF (paroxysmal atrial fibrillation) (CMS/HCC) Family History Problem Relation Name Age of Onset Coronary artery disease Father Atrial fibrillation Father Heart attack Brother Social History Tobacco Use Smoking status: Former Current packs/day: 0.00 Types: Cigarettes Quit date: 2013 Years since quittin.3 Smokeless tobacco: Never Vaping Use Vaping status: Never Used Substance Use Topics Alcohol use: Yes Alcohol/week: 12.0 standard drinks of alcohol Types: 12 Cans of beer per week Comment: occasional Drug use: Never Allergies Allergen Reactions Penicillins Hives Review of Systems Constitutional: Negative for chills, decreased appetite, fever, malaise/fatigue and weight gain. Cardiovascular: Positive for palpitations. Negative for chest pain, dyspnea on exertion, irregular heartbeat, leg swelling, near-syncope, orthopnea, paroxysmal nocturnal dyspnea and syncope. Hematologic/Lymphatic: Negative for bleeding problem. Does not bruise/bleed easily. OBJECTIVE Visit Vitals BP (!) 182/98 (BP Location: Right arm, Patient Position: Sitting) Pulse 64 Ht 1.778 m (5' 10 ) Wt 81.2 kg (179 lb) SpO2 99% BMI 25.68 kg/m??? Smoking Status Former BSA 2 m??? Medications: Current Outpatient Medications: amLODIPine (Norvasc) 5 mg tablet, Take 1 tablet (5 mg) by mouth once daily as directed., Disp: 90 tablet, Rfl: 3 apixaban (Eliquis) 5 mg tablet, Take 1 tablet (5 mg) by mouth in the morning and at bedtime., Disp: 60 tablet, Rfl: 11 atorvastatin (Lipitor) 80 mg tablet, Take 1 tablet (80 mg) by mouth at bedtime., Disp: 90 tablet, Rfl: 3 cloNIDine (Catapres) 0.1 mg tablet, TAKE 1 TABLET IN THE MORNING AND AT BEDTIME, Disp: 180 tablet, Rfl: 3 dilTIAZem (Cardizem) 30 mg immediate release tablet, Take 1 tablet (30 mg) by mouth if needed (for palpitations/afib)., Disp: 90 tablet, Rfl: 1 ezetimibe (Zetia) 10 mg tablet, Take 1 tablet (10 mg) by mouth once daily as directed., Disp: 90 tablet, Rfl: 3 isosorbide mononitrate ER (Imdur) 120 mg 24 hr tablet, Take 1 tablet (120 mg) by mouth once daily as directed. Do not crush or chew., Disp: 90 tablet, Rfl: 3 lisinopril 20 mg tablet, Take 1 tablet (20 mg) by mouth once daily as directed., Disp: 90 tablet, Rfl: 3 metFORMIN (Glucophage) 500 mg tablet, metformin 500 mg tablet TAKE TWO (more content not included)... [facility] 02-25-2025 History of Present illness Narrative Skin Check Location: Patient requests a full body skin examination Dermatologic history: history of Squamous Cell Carcinoma Last visit: 2020 New patient Lesions: Location: right eye lid Duration: months Quality: denies pain, denies itch, denies bleeding Modifying factors: aggravated by picking Associated symptoms: enlarged, non-healing Treatments: none All pertinent medical history, medications, and allergies were reviewed. General Exam: alert, oriented to person, place, and time, normal affect, well appearing Unaccompanied Scalp, Examined , exam limited by hair Right leg Examined Head, Face Examined , Exam limited by dailey and mustache Left leg Examined Neck Examined Right foot Examined Chest Examined Left foot Examined Back Examined Buttocks Examined Patient kept underwear on Abdomen Examined Digits,nails: Examined Right arm Examined Left arm Examined Lymphatics: Not examined Hands Examined Skin Exam 1. SEBORRHEIC KERATOSIS, INFLAMED Right Upper Eyelid Bertram and brown stuck on verrucous scaly papule with surrounding erythema The patient was informed that symptomatic seborrheic keratoses are benign growths that become inflamed, itchy, tender, traumatized, caught on clothing, or bleed. Symptomatic lesions can be treated with cryotherapy or curretage. Thicker lesions treated with cryotherapy may require more than one treatment. The patient was instructed to notify the office if abnormal redness or tenderness develops at the treatment site. Cryotherapy today, see procedure note. Diagnosis: Inflamed seborrheic keratosis Indication: Inflamed Consent: Verbal consent was obtained and risks were discussed, including, but not limited to risks of scarring, darker or scuba diving teacher pigmentary changes, recurrence, incomplete removal and infection. Method: Liquid nitrogen was used to treat the lesion(s) with two 5-10 second freeze-thaw cycles Number of lesions treated: 1 Post-procedure instructions: Instructions were given orally and in writing. The office will be contacted if the lesion fails to resolve despite treatment, or if a side effect develops such as abnormal crusting, scabbing, redness or tenderness Cryotherapy, skin lesion - Right Upper Eyelid 2. CAPILLARY ANGIOMA Generalized Scattered seay-red papule(s). The patient was informed that angiomas are benign growths on the the skin. No treatment is necessary. 3. ACTINIC KERATOSIS (2) Left Mid Locust, Left Superior Locust Erythematous scaly papules Patient was counseled regarding these sun-induced growths that can develop into squamous cell carcinoma if left untreated. Discussed treatment with cryotherapy. It was emphasized that any treated lesions that fail to resolve should be re-evaluated. Cryotherapy performed today; see procedure note Diagnosis: Actinic keratosis Indication: Precancerous Location: see skin exam Consent: Verbal consent was obtained and risks were discussed, including, but not limited to risks of scarring, darker or scuba diving teacher pigmentary changes, recurrence, incomplete removal and infection. Method: Liquid nitrogen was used to treat the lesion(s) with two 5-10 second freeze-thaw cycles. Number of lesions treated: 2 Post-procedure instructions: Instructions were given orally and in writing. The office will be contacted if the lesion fails to resolve despite treatment, or if a side effect develops such as abnormal crusting, scabbing, redness or tenderness Cryotherapy, skin lesion - Left Mid Locust, Left Superior Locust 4. MELANOCYTIC NEVUS OF TRUNK Generalized Scattered benign appearing, regular brown to light brown melanocytic papules and macules with similar morphology Counseled regarding these benign growths. Rarely, a nevus can develop into malignant melanoma, so any changing nevi should be promptly re-evaluated. 5. MELANOCYTIC NEVUS OF LEFT LOWER EXTREMITY Generalized Scattered benign appearing, regular brown to light brown melanocytic papules and macules with similar morphology Counseled regarding these benign growths. Rarely, a nevus can develop into malignant melanoma, so any changing nevi should be promptly re-evaluated. 6. SEBORRHEIC KERATOSIS Generalized Stuck on verrucous, mayers-brown papules and plaques. Patient was counseled regarding these benign growths. Removal is normally not necessary, but they may be removed if they are symptomatic or for cosmetic reasons. Next Visit: 1 year skin check, 4 weeks for recheck ISK on rt eyelid documented in this encounter [facility] 02-13-2025 Note Oncology Progress No te Chief Complaint Anemia; here to go over results. Oncological History/ROS/PE/Assessment and Plan Mr. Doherty is [...] a colonoscopy done in Sep 2023 at [facility] after positive Cologuard test. This showed [...] plt, bili. Iron studies and hgb WNL he does drink 5 beer multple days per week. he also takes tylenol nightly at least. Physical Exam General: No acute distress. Respiratory: [...] malabsorption, he received IV iron infusions January 2024 low plt and borderline wbc. stable since we met him in 2023, maybe fatty liver. he does drink 5 beer multple days per week. he also takes tylenol nightly at least. B12 deficiency January 2024 labs with B12 at 213. Initiated weekly injections x4, switched to monthly February 2024 Continue monthly Paraproteins ok previously Platelets and LFTs remain stable Follow-up No qualifying data available f/u 1 year cbc, cmp, iron studies, b12, folate. stop b12 shots. start b12 1000mcg daily orally. Medications amLODIPine 5 mg Tab, Oral, Daily atorvastatin 80 mg Tab, 80 mg= 1 tab(s), Oral, Daily Centrum Minis Men 50+ oral tablet, 1 tab(s), Oral, Daily cloNIDine 0.1 mg tab, Oral, BID cyanocobalamin (DoT), 1000 mcg= 1 mL, IntraMuscular, Day of Tx cyanocobalamin (DoT), 1000 mcg= 1 mL, IntraMuscular, Day of Tx cyanocobalamin (DoT), (more content not included)... [facility] 02-11-2025 Note Nurse Consultation N ote Reason for Visit patient came IO for lab draw Assessment/Plan 1. Controlled type 2 diabetes mellitus without complication, without long-term current use of insulin (E11.9: Type 2 diabetes mellitus without complications) 2. Thrombocytopenia (D69.6: Thrombocytopenia, unspecified) 3. Type 2 diabetes mellitus with hyperlipidemia (E11.69: Type 2 diabetes mellitus with other specified complication) Medications amLODIPine 5 mg Tab, Oral, Daily atorvastatin 80 mg Tab, 80 mg= 1 tab(s), Oral, Daily Centrum Minis Men 50+ oral tablet, 1 tab(s), Oral, Daily cloNIDine 0.1 mg tab, Oral, BID diltiazem 30 mg Tab, See Instructions Eliquis, 5 mg, Oral, BID isosorbide mononitrate 120 mg ER Tab, 120 mg= 1 tab(s), Oral, qAM lancets, See Instructions lancets, See Instructions, 1 refills lisinopril 20 mg Tab, See Instructions, 1 [...] 10 mg, Oral, Daily Allergies penicillins (Hives) Immunizations Vaccine Date Status Comments influenza virus vaccine, inactivated - Not Given Patient Refuses influenza virus vaccine, inactivated - Not Given Postpone due to refusal SARS-CoV-2 (COVID-19) Ad26 vaccine 08/31/2021 Recorded 2022-04-01: [id number] influenza virus vaccine, inactivated 07/23/2021 Recorded SARS-CoV-2 (COVID-19) Ad26 vaccine 12/23/2020 Recorded influenza virus vaccine, inactivated 07/30/2018 Recorded [facility] 01-30-2025 Note Patient Education Cardiovascular Atrial Fibrillation Atrial fibrillation (AFib) is a type of heartbeat that is irregular or fast. If you have AFib, your heart beats without any order. This makes it hard for your heart to pump blood in a normal way. AFib may come and go, or it may become a long-lasting problem. If AFib is not treated, it can put you at higher risk for stroke, heart failure, and other heart problems. What are the causes? AFib may be caused by diseases that damage the heart's electrical system. They include: ??? High blood pressure. ??? Heart failure. ??? Heart valve diseases. ??? Heart surgery. ??? Diabetes. ??? Thyroid disease. ??? Kidney disease. ??? Lung diseases, such as pneumonia or COPD. ??? Sleep apnea. Sometimes the cause is not known. What increases the risk? You are more likely to develop AFib if: ??? You are older. ??? You exercise often and very hard. ??? You have a family history of AFib. ??? You are male. ??? You are . ??? You are overweight. ??? You smoke. ??? You drink a lot of alcohol. What are the signs or symptoms? Common symptoms of this condition include: ??? A feeling that your heart is beating very fast. ??? Chest pain or discomfort. ??? Feeling short of breath. ??? Suddenly feeling light-headed or weak. ??? Getting tired easily during activity. ??? Fainting. ??? Sweating. In some cases, there are no symptoms. How is this treated? Medicines to: ? Prevent blood clots. ? Treat heart rate or heart rhythm problems. ??? Using devices, such as a pacemaker, to correct heart rhythm problems. ??? Doing surgery to remove the part of the heart that sends bad signals. ??? Closing an area where clots can form in the heart (left atrial appendage). In some cases, your doctor will treat other underlying conditions. Follow these instructions at home: Medicines ??? Take [id number] and prescription medicines only as told by your doctor. ??? Do not take any new medicines without first talking to your doctor. ??? If you are taking blood thinners: ? Talk with your doctor before taking aspirin or NSAIDs, such as ibuprofen. ? Take your medicines as told. Take them at the same time each day. ? Do not do things that could hurt or bruise you. Be careful to avoid falls. ? Wear an alert bracelet or carry a card that says you take blood thinners. Lifestyle ??? Do not smoke or use any products that contain nicotine or tobacco. If you need help quitting, ask your doctor. ??? Eat heart-healthy foods. Talk with your doctor about the right eating plan for you. ??? Exercise regularly as told by your doctor. ??? Do not drink alcohol. ??? Lose weight if you are overweight. General instructions ??? If you have sleep apnea, treat it as told by your doctor. ??? Do not use diet pills unless your doctor says they are safe for you. Diet pills may make heart problems worse. ??? Keep all follow-up visits. Your doctor will check your heart rate and rhythm regularly. Contact a doctor if: ??? You notice a change in the speed, rhythm, or strength of your heartbeat. ??? You are taking a blood-thinning medicine and you get more bruising. ??? You get tired more easily when you move or exercise. ??? You have a sudden change in weight. Get help right away if: ??? You have pain in your chest. ??? You have trouble breathing. ??? You have side effects of blood thinners, such as blood in your vomit, poop (stool), or pee (urine), or bleeding that cannot stop. ??? You have any signs of a stroke. BE FAST is an easy way to remember the main warning signs: ? B - Balance. Dizziness, sudden trouble walking, or loss of balance. ? E - Eyes. Trouble seeing or a change in how you see. ? F - Face. Sudden weakness or loss of feeling in the face. The face or eyelid may droop on one side. ? A - Arms.Weakness or loss of feeling in an arm. This happens suddenly and usually on one side of the body. ? S - Speech. Sudden trouble speaking, slurred speech, or trouble understanding what people say. ? T - Time.Time to call emergency services. Write down what time symptoms started. ??? You have other signs of a stroke, such as: ? A sudden, very bad headache with no known cause. ? Feeling like you may vomit (nausea). ? Vomiting. ? A seizure. These symptoms may be an emergency. Get help right away. Call 911. ??? Do not wait to see if the symptoms will go away. ??? Do not drive yourself to the hospital. This information is not intended to replace advice given to you by your health care provider. Make sure you discuss any questions you have with your health care provider. Document Revised: 06/21/2023 Document Reviewed: 06/21/2023 Elsevier Patient Education ? 2023 [employer] Emergency Medicine Heart Attack A heart attack occurs when blood and oxygen supply to the heart is cut of (more content not included)... [facility] 12-26-2024 Note Cardi[facility] SUBJECTIVE Chief Complaint Patient presents with Atrial Fibrillation Marcelle A Doherty is a 64 y.o. male here for follow-up. HPI PMHx: CAD with [employer]IENT SERVICES of the RCA and a 70% ostial D1 lesion, diabetes mellitus type 2, hypertension, AAA, a.fib s/p ablation at [facility] 06/201712/26/2024 He has been feeling well since his recent a.fib ablation. A few days after his prcoedure he had some occasional palpitations but outside of this he has had no epsidoes and has felt well. He eats heart healthy diet. He tries to walk a few miles a day. 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 He expressed concern that his BP is always elevated at any healthcare office. BP is normal at home. Denies c/o CP, dyspnea, orthopnea, PND, LE edema, dizziness/LH, syncope. Patient Active Problem List Diagnosis Abnormal stress test Atrial fibrillation (CMS/HCC) CAD (coronary artery disease) Coronary arteriosclerosis Chronic anticoagulation Dyslipidemia Hypertension Metabolic syndrome Aneurysm of ascending aorta without rupture Aortic aneurysm BMI 28.0-28.9,adult BPH (benign prostatic hyperplasia) Controlled [...] adenoma of rectum AAA (abdominal aortic aneurysm) Hip pain, bilateral Microcytic anemia Spleen enlarged Past Medical History: Diagnosis Date Abnormal ECG Allergic rhinitis Arrhythmia CAD (coronary artery disease) Diabetes mellitus (CMS/HCC) GERD (gastroesophageal reflux disease) Hyperlipidemia Hypertension Irregular heart beat PAF (paroxysmal atrial fibrillation) (CMS/HCC) Family History Problem Relation Name Age of Onset Coronary artery disease Father Atrial fibrillation Father Heart attack Brother Social History Tobacco Use Smoking status: Former Current packs/day: 0.00 Types: Cigarettes Quit date: 2013 Years since quittin.2 Smokeless tobacco: Never Vaping Use Vaping status: Never Used Substance Use Topics Alcohol use: Yes Alcohol/week: 12.0 standard drinks of alcohol Types: 12 Cans of beer per week Comment: occasional Drug use: Never Allergies Allergen Reactions Penicillins Hives Review of Systems Constitutional: Negative for chills, decreased appetite, fever, malaise/fatigue and weight gain. Cardiovascular: Positive for palpitations. Negative for chest pain, dyspnea on exertion, irregular heartbeat, leg swelling, near-syncope, orthopnea, paroxysmal nocturnal dyspnea and syncope. Hematologic/Lymphatic: Negative for bleeding problem. Does not bruise/bleed easily. OBJECTIVE Visit Vitals BP (!) 202/98 (BP Location: Left arm, Patient Position: Sitting) Pulse 64 Ht 1.778 m (5' 10 ) Wt 83 kg (183 lb) SpO2 99% BMI 26.26 kg/m??? Smoking Status Former BSA 2.02 m??? Medications: Current Outpatient Medications: amLODIPine (Norvasc) 5 mg tablet, Take 1 tablet (5 mg) by mouth once daily as directed., Disp: 90 tablet, Rfl: 3 apixaban (Eliquis) 5 mg tablet, Take 1 tablet (5 mg) by mouth in the morning and at bedtime., Disp: 60 tablet, Rfl: 11 atorvastatin (Lipitor) 80 mg tablet, Take 1 tablet (80 mg) by mouth at bedtime., Disp: 90 tablet, Rfl: 3 cloNIDine (Catapres) 0.1 mg tablet, TAKE 1 TABLET IN THE MORNING AND AT BEDTIME, Disp: 180 tablet, Rfl: 3 dilTIAZem (Cardizem) 30 mg immediate release tablet, Take 1 tablet (30 mg) by mouth if needed (for palpitations/afib). (Patient taking differently: Take 60 mg by mouth if needed (for palpitations/afib).), Disp: 90 tablet, Rfl: 1 ezetimibe (Zetia) 10 mg tablet, Take 1 tablet (10 mg) by mouth once daily as directed., Disp: 90 tablet, Rfl: 3 isosorbide mononitrate ER (Imdur) 120 mg 24 hr tablet, Take 1 tablet (120 mg) by mouth once daily as directed. Do not crush or chew., Disp: 90 tablet, Rfl: 3 lisinopril 20 mg tablet, Take 1 tablet (20 mg) by mouth once daily as directed., Disp: 90 tablet, Rfl: 3 metFORMIN (Glucophage) 500 mg tablet, metformin 500 mg tablet TAKE TWO TABLETS BY MOUTH TWICE A DAY, Disp: , Rfl: metoprolol succinate XL (Toprol-XL) 200 mg 24 hr tablet, Take 1 tablet (200 mg) by mouth once daily as directed. Do not crush or chew., Disp: 90 tablet, Rfl: 3 omeprazole (PriLOSEC) [address] capsule, Take 1 capsule (20 mg) by mouth before breakfast. Do not crush or chew., Disp: 90 capsule, Rfl: 3 ranolazine (Ranexa) 500 mg 12 hr tablet, Take 1 tablet (500 mg) by mouth two times daily. Do not crush, chew, or sp (more content not included)... [facility] 12-26-2024 Note Patient here for [facility] appointment S/p A-Fib ablation. Patient has a history of CAD, HTN, and diabetes. Patient states he has no new complaints at this time. Denies chest pain, swelling, palpitations. Review of Systems All other systems reviewed and are negative. [facility] 11-14-2024 Note Patient: Marcelle washington Procedure Summary Date: 11/14/24 Room / Location: [facility] / [facility] (Cath) Anesthesia Start: 828 Anesthesia [...] events for this encounter. [facility] 11-14-2024 Note ATRIAL FIBRILLATION ABLATION PROCEDURE NOTE DATE OF PROCEDURE: 11/14/2024 PERFORMING PHYSICIAN: Dr. Ulises Eldridge TOURING PRODUCTION MANAGER:JOCELYN CONSENT: Patient NAME OF THE PROCEDURE: Pulmonary [...] with past medical history of CAD with DIRECTOR CLIENT SERVICES of the RCA and a 70% ostial D1 lesion, diabetes mellitus type 2, hypertension AAA has been previously seen by Dr. PHAN. There is a history of prior A-fib ablation (RF-PVI) done at [facility] on 07/10/2017 by and was noted to have atrial flutter subsequently which was converted by cardioversion to sinus rhythm on 07/28/2017. Since then he has been following up with Jannet Gonzalez at [facility]. He is currently maintained on metoprolol [...] and is quite symptomatic with this. His [id number] score is 3 with risk factors of [...] (more content not included)... [facility] 11-14-2024 Note Arterial Line: Date/Time: 11/14/2024 7:40 AM An arterial line was placed in the pre-op for the following indication(s): continuous blood pressure monitoring and blood sampling needed. A 20 gauge (size), 1 and 3/4 inch (length), Arrow (type) catheter was placed, Seldinger technique used , into the Right radial artery, secured by Tegaderm (and Physician Software Systemsesc). Events: patient tolerated procedure well with no complications. Medications Administered lidocaine (XYLOCAINE) 1 % SubQ - infiltration 5 mL - 11/14/2024 7:40:00 AM Staffing Performed: resident/NON DESTRUCTIVE TESTING SPECIALIST/CAA Anesthesiologist: Luisa Allison MD Resident/NON DESTRUCTIVE TESTING SPECIALIST: Shayy Galvin MD Performed by: Shayy Galvin MD Authorized by: Luisa Allison MD [facility] 11-14-2024 Note Airway Date/Time: 11/14/2024 8:34 AM Urgency: elective General Information and Staff Patient location during procedure: OR Anesthesiologist: Luisa Allison MD Resident/NON DESTRUCTIVE TESTING SPECIALIST/CAA: Shayy Galvin MD Performed: resident/NON DESTRUCTIVE TESTING SPECIALIST/CAA Indications and Patient Condition Indications for airway [...] other approaches attempted: [address] [facility] 11-14-2024 Note Patient: Marcelle washington Procedure Information Date/Time: 11/14/24 0800 Procedure: Ablation a-fib paroxysmal Location: [facility] EP / [facility] (Cath) Providers: Ulises Eldridge MD Relevant Problems Cardio Tolerates >4 METS without chest pain or SOB. However, experiences chest pain with afib episodes or extreme cold weather. EF 60%. Ascending aortic aneurysm measuring 4.1 cm. Abdominal aortic aneurysm 3.5 cm CAD with DIRECTOR CLIENT SERVICES of RCA, well collateralized. OM1 with 70% [...] attending. Additional Equipment Requests [facility] 10-01-2024 Note [place] Electrophysiology Consult Note [place] Cardiology [facility] Reason for visit: Afib 10/01/24 Patient here for H&P prior to afib ablation scheduled on 10/03/2024. Denies chest pain, SOB, and bleeding on Eliquis. Prior HPI: Marcelle Doherty is a 64 y.o. year old with past medical history of CAD with DIRECTOR CLIENT SERVICES of the RCA and a 70% ostial D1 lesion, diabetes mellitus type 2, hypertension AAA has been previously seen by Dr. PHAN. There is a history of prior A-fib ablation done at [facility] on 07/10/2017 by and was noted to have atrial flutter subsequently which was converted by cardioversion to sinus rhythm on 07/28/2017. Since then he has been following up with Jannet Gonzalez at [facility]. He is currently maintained on metoprolol [...] and is quite symptomatic with this. His [id number] score is 3 with risk factors of [...] Irregular heart beat PAF (paroxysmal atrial fibrillation) (CMS/[facility]) PSH: Past Surgical History: Procedure [...] on file Intimate Partner Violence: Unknown (12/07/2023) [place] Safety & Environment Fear of Current or [...] (more content not included)... [facility] 09-10-2024 Note ZEINAB [facility] 09-10-2024 Note [place] Electrophysiology Consult Note [place] Cardiology [facility] Reason for visit: Afib Prior HPI: Marcelle Doherty is a 64 y.o. year old with past medical history of CAD with DIRECTOR CLIENT SERVICES of the RCA and a 70% ostial D1 lesion, diabetes mellitus type 2, hypertension AAA has been previously seen by Dr. PHAN. There is a history of prior A-fib ablation done at [facility] on 07/10/2017 by and was noted to have atrial flutter subsequently which was converted by cardioversion to sinus rhythm on 07/28/2017. Since then he has been following up with Jannet Gonzalez at [facility]. He is currently maintained on metoprolol [...] and is quite symptomatic with this. His [id number] score is 3 with risk factors of [...] (more content not included)... [facility] 09-09-2024 Note Oncology Progress No te [...] a colonoscopy done in Sep 2023 at [facility] after positive Cologuard test. This showed [...] Contact Information Tj NATHAN-PEMA, Ana Rivas, ONC [facility] [address] [place] [phone]- [phone] Additional Instructions: continue b12 injections monthly cbc, cmp, iron (more content not included)... [facility] 07-12-2024 Note [place] Cardiology - [facility] Subjective Marcelle Doherty is a 64 [...] of an abnormal stress test that showed DIRECTOR [employer]IENT SERVICES of the RCA with filling via left to right collaterals. He also had a 70% stenosis in a diagonal branch (the prior report mentions that it is not amenable to intervention). At that time left-ventricular gram showed normal left ventricular ejection fraction at 60%. 2. Paroxysmal atrial fibrillation, status post ablation in 2017 at the [facility]. He also had prior cardioversion. He [...] episodes of atrial fibrillation. He has a Retidocdia machine that he uses to transmit ECG. [...] (more content not included)... [facility] 03-20-2024 Hospital Discharge instructions Follow Up Care 03/20/2024 09:48:36 With:Tj BURTON, Ana Rivas, ONC Address: [facility] [address] [place] [phone]- [phone] When: Unknown Comments:continue b12 injections monthlycbc, cmp, iron studies in 6mofollow-up in 6mo [facility] 01-25-2024 Hospital Discharge instructions Follow Up Care 01/25/2024 12:17:38 With:Tj BURTON, Ana Rivas, ONC Address: [address] [place] [address]- [phone] When: Unknown Comments:cbc, cmp, iron studies in 3mo and 6mofollow-up in 6mo with PUNCHBOARD FILLING MACHINE OPERATOR [facility] 12-29-2023 Hospital Discharge instructions Follow Up Care 12/29/2023 11:16:26 With:Tj BURTON, Ana Rivas, ONC Address: [address] [phone]- [phone] When: Unknown Comments:IV Injectafer x2B12 injections weekly x4, then monthlycbc, cmp, iron studies in 8wksfollow-up in 8wks with PUNCHBOARD FILLING MACHINE OPERATOR [facility] 08-16-2023 Hospital Discharge instructions Patient Education [...] include: ?8 oz (237 mL) of milk, tshtfcl-gpeylmpagxkg-fhlzw milk, and calcium-fortifiedfruit juice. Calcium-fortified means that [...] ?Spinach (cooked), rhubarb, beets, sweet potatoes, and Scottish chard. ?Peanuts. ?Potato chips, welsh fries, and baked potatoes with skin on. ?Nuts and nut products. ?Chocolate. If you regularly take a diuretic medicine, make sure to eat at least 1 or 2 servings of fruits or vegetables that are high in potassium each day. These include: ?Avocado. ?Banana. ?[place], prune, carrot, or tomato juice. ?Baked potato. [...] magnesium, fish oil, or vitamin B6. Take txll-ucd-jqaezqy and prescription medicines only as told by [...] Casseroles. Pizza. Lasagna. Frozen meals. Potato chips. [place] fries. The items listed above may not [...] provider. Document Revised: 06/13/2022 Document Reviewed: 06/13/2022 [employer] Patient Education 2022 [employer]. Follow Up Care 08/08/2023 13:37:21 With:Teo NIELSON, Shelley Sidhu, URL, URO Address: When: Unknown Comments:PRN [facility] 01-04-2023 Note CARDIAC STRESS TEST Requesting [...] and reported myocardial perfusion scan findings. [facility] 04-01-2022 Hospital Discharge instructions Patient [...] bumps under the skin (xanthomas). White or carroll ring around the black center (pupil) of [...] quitting, ask your health care provider. Take khfp-jpp-wlblfct and prescription medicines only as told by [...] 10/07/2014 Document Revised: 05/27/2019 Document Reviewed: 05/03/2019 [employer] Patient Education 2020 [employer] 04/01/2022 13:38:40 Hyperglycemia Hyperglycemia Hyperglycemia occurs [...] or polycystic ovarian syndrome (PCOS). Being of Fijian-Mosotho, -Fijian, /, or / descent. What are the [...] these instructions at home: General instructions Take kwdj-pih-xkrmxgv and prescription medicines only as told by [...] 03/28/2002 Document Revised: 06/19/2017 Document Reviewed: 06/19/2017 [employer] Patient Education 2020 [employer]. 04/01/2022 13:38:33 Atrial Fibrillation Atrial Fibrillation Atrial [...] may be diagnosed with: Electrocardiogram (ECG). Ambulatory phototypesetting equipment monitor. This device records your heartbeats for [...] 10/02/2006 Document Revised: 11/22/2018 Document Reviewed: 11/23/2018 [employer] Patient Education 2020 [employer]. 04/01/2022 13:38:29 Pinched Nerve Pinched Nerve A [...] work. Follow these instructions at home: Take mhar-uoy-qgseesl and prescription medicines only as told by [...] leg, or the back or neck. Take yhxx-epi-yvbsmgn and prescription medicines only as told by [...] 09/22/2003 Document Revised: 10/19/2018 Document Reviewed: 10/16/2018 [employer] Patient Education 2020 [employer]. [facility] Evaluation + Plan note No data available for this section [facility] Evaluation + Plan note Future Appointments Appointment Date:01/03/2024 08:00:00 AM Scheduled Provider: Location:[facility] Appointment Type:FM Medicare Wellness Welcome Appointment Date:01/03/2024 08:40:00 AM Scheduled Provider:Ursula Love MD Location:[facility] Appointment Type:FM Open Diagnostic Tests PendingPSA Free & Total 07/03/23Microalbumin Level Urine 07/03/23U Protein/Creat Ratio 07/03/23 [facility] Evaluation + Plan note Future Appointments Appointment Date:01/03/2024 08:00:00 AM Scheduled Provider: Location:[facility] Appointment Type:FM Medicare Wellness Welcome Appointment Date:01/03/2024 08:40:00 AM Scheduled Provider:Ursula Love MD Location:[facility] Appointment Type:FM Open [facility] Evaluation + Plan note Future Appointments Appointment Date:08/29/2023 02:20:00 PM Scheduled Provider:Jose Luis THOMAS MD Location: [facility] Appointment Type: Appointment Date:01/03/2024 08:00:00 AM Scheduled Provider: Location:[facility] Appointment Type:FM Medicare Wellness [facility] Appointment Date:01/03/2024 08:40:00 AM Scheduled Provider:Ursula Love MD Location:[facility] Appointment Type:FM Open Diagnostic Tests PendingUrine Culture 08/04/23 Future Scheduled TestsCT Abdomen/Pelvis w/o Contrast 08/02/23 [facility] Evaluation + Plan note Future Appointments Appointment Date:08/29/2023 02:20:00 PM Scheduled Provider:Jose Luis THOMAS MD Location:[facility] Appointment Type:[facility] Appointment Date:01/03/2024 08:00:00 AM Scheduled Provider: Location:[facility] Appointment Type: Medicare Wellness Welcome Appointment Date:01/03/2024 08:40:00 AM Scheduled Provider:Ursula Love MD Location:[facility] Appointment Type:[facility] Evaluation + Plan note Future Appointments Appointment Date:08/29/2023 02:20:00 PM Scheduled Provider:Jose Luis THOMAS MD Location:[facility] Appointment Type:[facility] Appointment Date:01/03/2024 08:00:00 AM Scheduled Provider: Location:[facility] Appointment Type:FM Medicare Wellness Welcome Appointment Date:01/03/2024 08:40:00 AM Scheduled Provider:Ursula Love MD Location:[facility] Appointment Type: Open Future Scheduled TestsUS Aorta 08/08/24 [facility] Evaluation + Plan note Future Appointments Appointment Date:01/03/2024 08:00:00 AM Scheduled Provider: Location:[facility] Appointment Type:FM Medicare Wellness [facility] Appointment Date:01/03/2024 08:40:00 AM Scheduled Provider:Ursula Love MD Location:[facility] Appointment Type: Open Future Scheduled TestsUS Aorta 08/08/24 [facility] [place] Evaluation + Plan note Future Appointments Appointment Date:12/17/2024 08:00:00 AM Scheduled Provider: Location:[facility] Appointment Type:FM Medicare Wellness Subsequent Diagnostic Tests PendingHCV Antibody RFX to Quant PCR 12/18/23 Future Scheduled TestsCT Chest, Low Dose Screening 12/18/23US Aorta 08/08/24 [facility] Evaluation + Plan note Future Appointments Appointment Date:03/25/2024 10:45:00 AM Scheduled Provider:Ursula Love MD Location:[facility] Appointment Type: Open Appointment Date:12/17/2024 08:00:00 AM Scheduled Provider: Location:[facility] Appointment Type: Medicare Wellness Subsequent Future Scheduled TestsUS Aorta 08/08/24 [facility] Evaluation + Plan note Future Appointments Appointment Date:01/25/2024 09:00:00 AM Scheduled Provider:Ana Kumar Location:.ONCOLOGY Appointment Type:ONC Office Visit New 45 (FT) Appointment Date:03/25/2024 10:45:00 AM Scheduled Provider:Ursula Love MD Location:[facility] Appointment Type: Open Appointment Date:12/17/2024 08:00:00 AM Scheduled Provider: Location:[facility] Appointment Type:FM Medicare Wellness Subsequent Diagnostic Tests PendingImmunofixation Serum 01/16/24Free K+L Lt Chains,Qn,S 01/16/24Protein Electrophoresis 01/16/24 Future Scheduled TestsUS Aorta 08/08/24 [facility] Evaluation + Plan note Future Appointments Appointment Date:02/01/2024 02:30:00 PM Scheduled Provider: Location:.ONCOLOGY Appointment Type:ONC Injection (FT) Appointment Date:02/08/2024 02:30:00 PM Scheduled Provider: Location:.ONCOLOGY Appointment Type:ONC Injection (FT) Appointment Date:02/15/2024 02:00:00 PM Scheduled Provider: Location:.ONCOLOGY Appointment Type:ONC Injection (FT) Appointment Date:03/14/2024 10:15:00 AM Scheduled Provider:Ana Kmuar Location:.ONCOLOGY Appointment Type:ONC Office Visit 30 (FT) Appointment Date:03/14/2024 10:45:00 AM Scheduled Provider: Location:.ONCOLOGY Appointment Type:ONC Injection (FT) Appointment Date:03/25/2024 10:45:00 AM Scheduled Provider:Ursula Loev MD Location:[facility] Appointment Type: Open Appointment Date:12/17/2024 08:00:00 AM Scheduled Provider: Location:[facility] Appointment Type:FM Medicare Wellness Subsequent Future Scheduled TestsCBC w/ Auto Diff 03/21/24Comprehensive Metabolic Panel 03/21/24Ferritin 03/21/24Iron Level 03/21/24Iron Percent Saturation 03/21/24Transferrin 03/21/24US Aorta 08/08/24 [facility] Evaluation + Plan note Future Appointments [...] Scheduled Provider:Ursula Love MD Location:[facility] Appointment Type:FM Open Appointment Date:04/11/2024 02:00:00 [...] (FT) Appointment Date:12/17/2024 08:00:00 AM Scheduled Provider: Location:[facility] Appointment Type: Medicare Wellness Subsequent Appointment Date:12/19/2024 02:15:00 PM Scheduled Provider: Location:.ONCOLOGY Appointment Type:ONC Injection (FT) Appointment Date:01/16/2025 02:05:00 PM Scheduled Provider: Location:.ONCOLOGY Appointment Type:ONC Injection (FT) Appointment Date:02/13/2025 02:15:00 PM Scheduled Provider: Location:.ONCOLOGY Appointment Type:ONC Injection (FT) Appointment Date:03/13/2025 02:15:00 PM [facility]uled [facility] Type:[facility] Injection (FT) Future Scheduled TestsCBC w/ Auto Diff 03/21/24Comprehensive Metabolic Panel 03/21/24Ferritin 03/21/24Iron Level 03/21/24Iron Percent Saturation 03/21/24Transferrin 03/21/24US Aorta 08/08/24 [facility] Evaluation + Plan note Future Appointments [...] Scheduled Provider:Ursula Love MD Location:[facility] Appointment Type:FM Open Appointment Date:04/11/2024 02:00:00 [...] (FT) Appointment Date:12/17/2024 08:00:00 AM Scheduled Provider: Location:[facility] Appointment Type:FM Medicare Wellness Subsequent Appointment [...] 03/21/24Iron Percent Saturation 03/21/24Transferrin 03/21/24US Aorta 08/08/24 [facility] Evaluation + Plan note Future Appointments Appointment Date:03/14/2024 10:15:00 AM Scheduled Provider:Ana Kumar Location:.ONCOLOGY Appointment Type:ONC Office Visit 30 (FT) Appointment Date:03/14/2024 10:45:00 AM Scheduled Provider: Location:.ONCOLOGY Appointment Type:ONC Injection (FT) Appointment Date:03/25/2024 10:45:00 AM Scheduled Provider:[facility]rsula [facility] MD [facility]:FM Open Appointment Date:04/11/2024 02:00:00 PM [...] (FT) Appointment Date:12/17/2024 08:00:00 AM Scheduled Provider: Location:[facility] Appointment Type: Medicare Wellness Subsequent Appointment [...] 03/11/24Iron Percent Saturation 03/11/24Transferrin 03/11/24US Aorta 08/08/24 [facility] Evaluation + Plan note Future Appointments Appointment Date:03/14/2024 10:15:00 AM Scheduled Provider:Ana Kumar Location:.ONCOLOGY Appointment Type:ONC Office Visit 30 (FT) Appointment Date:03/14/2024 10:45:00 AM Scheduled Provider: Location:.ONCOLOGY Appointment Type:ONC Injection (FT) Appointment Date:03/26/2024 10:45:00 AM Scheduled Provider:Ursula Love MD Location:[facility] Appointment Type:FM Open Appointment Date:04/11/2024 02:00:00 [...] (FT) Appointment Date:12/17/2024 08:00:00 AM Scheduled Provider: Location:[facility] Appointment Type: Medicare Wellness Subsequent Appointment Date:12/19/2024 02:15:00 PM Scheduled Provider: Location:[facility] Appointment Type:ONC Injection (FT) Appointment Date:01/16/2025 02:05:00 PM Scheduled Provider: Location:[facility] Appointment Type:ONC Injection (FT) Appointment Date:02/13/2025 02:15:00 PM Scheduled Provider: Location:[facility] Appointment Type:ONC Injection (FT) Appointment Date:03/13/2025 02:15:00 PM Scheduled Provider: Location:[facility] Appointment Type:ONC Injection (FT) Future Scheduled [facility] 08/08/24 [facility] Evaluation + Plan note Future Appointments Appointment Date:03/26/2024 10:45:00 AM Scheduled Provider:Ursula Love MD Location:[facility] Appointment Type: Open Appointment Date:04/11/2024 02:00:00 [...] (FT) Appointment Date:12/17/2024 08:00:00 AM Scheduled Provider: Location:[facility] Appointment Type: Medicare Wellness Subsequent Appointment Date:12/19/2024 02:15:00 PM Scheduled [facility] Type:ONC Injection (FT) Appointment Date:01/16/2025 02:05:00 PM Scheduled Provider: [facility] Type:ONC Injection (FT) Appointment Date:02/13/2025 02:15:00 PM Scheduled Provider: [facility] Type:ONC Injection (FT) Appointment Date:03/13/2025 02:15:00 PM Scheduled Provider: [facility] Type:ONC Injection (FT) Future Scheduled TestsCBC w/ Auto Diff 06/07/24CBC w/ Auto Diff 09/07/24Comprehensive Metabolic Panel 06/07/24Comprehensive Metabolic Panel 09/07/24Ferritin 06/07/24Ferritin 09/07/24Iron Level 06/07/24Iron Level 09/07/24Iron Percent Saturation 06/07/24Iron Percent Saturation 09/07/24Transferrin 06/07/24Transferrin 09/07/24US Aorta 08/08/24 [facility] Evaluation + Plan note Future Appointments Appointment Date:05/09/2024 02:00:00 PM Scheduled Provider: [facility] Type:ONC Injection (FT) Appointment Date:06/06/2024 02:00:00 PM Scheduled Provider: [facility] Type:ONC Injection (FT) Appointment Date:07/04/2024 02:00:00 PM Scheduled Provider: [facility] Type:ONC Injection (FT) Appointment Date:08/01/2024 02:00:00 PM Scheduled Provider: [facility] Type:ONC Injection (FT) [...] (FT) Appointment Date:12/17/2024 08:00:00 AM Scheduled Provider: Location:[facility] Appointment Type:FM Medicare Wellness Subsequent Appointment Date:12/19/2024 02:15:00 PM Scheduled Provider: [facility] Type:ONC Injection (FT) Appointment Date:01/16/2025 02:05:00 PM Scheduled Provider: [facility] Type:ONC Injection (FT) Appointment Date:02/13/2025 02:15:00 PM Scheduled Provider: Location:.ONCOLOGY Appointment Type:ONC Injection (FT) Appointment Date:03/13/2025 02:15:00 PM Scheduled Provider: [facility] Type:ONC Injection (FT) Future Scheduled TestsCBC w/ Auto Diff 06/07/24CBC w/ Auto Diff 09/07/24Comprehensive Metabolic Panel 06/07/24Comprehensive Metabolic Panel 09/07/24Ferritin 06/07/24Ferritin 09/07/24Iron Level 06/07/24Iron Level 09/07/24Iron Percent Saturation 06/07/24Iron Percent Saturation 09/07/24Transferrin 06/07/24Transferrin 09/07/24US Aorta 08/08/24 [facility] Evaluation + Plan note Future Appointments [...] (FT) Appointment Date:12/17/2024 08:00:00 AM Scheduled Provider: Location:[facility] Appointment Type:FM Medicare Wellness Subsequent Appointment [...] Percent Saturation 09/07/24Transferrin 06/07/24Transferrin 09/07/24US Aorta 08/08/24 [facility] Evaluation + Plan note Future Appointments [...] (FT) Appointment Date:12/17/2024 08:00:00 AM Scheduled Provider: Location:[facility] Appointment Type:FM Medicare Wellness Subsequent Appointment [...] Percent Saturation 09/07/24Transferrin 06/07/24Transferrin 09/07/24US Aorta 08/08/24 [facility] Evaluation + Plan note Future Appointments [...] (FT) Appointment Date:12/17/2024 08:00:00 AM Scheduled Provider: Location:[facility] Appointment Type:FM Medicare Wellness Subsequent Appointment [...] Percent Saturation 09/07/24Transferrin 06/07/24Transferrin 09/07/24US Aorta 08/08/24 [facility] Evaluation + Plan note Future Appointments [...] (FT) Appointment Date:12/17/2024 08:00:00 AM Scheduled Provider: [facility] [facility] Medicare Wellness Subsequent Appointment Date:12/19/2024 02:15:00 PM Scheduled Provider: Location:.ONCOLOGY Appointment Type:ONC Injection (FT) Appointment Date:01/16/2025 02:05:00 PM Scheduled Provider: Location:.ONCOLOGY Appointment Type:ONC Injection (FT) Appointment Date:01/30/2025 09:15:00 AM Scheduled Provider:Ursula Love MD Location:[facility] Appointment Type: Open Appointment Date:02/13/2025 02:15:00 PM Scheduled Provider: Location:.ONCOLOGY Appointment Type:ONC Injection (FT) Appointment Date:03/13/2025 02:15:00 PM Scheduled Provider: Location:.ONCOLOGY Appointment Type:ONC Injection (FT) Future Scheduled TestsCBC w/ Auto Diff 06/07/24CBC w/ Auto Diff 09/07/24Comprehensive Metabolic Panel 06/07/24Comprehensive Metabolic Panel 09/07/24Ferritin 06/07/24Ferritin 09/07/24Iron Level 06/07/24Iron Level 09/07/24Iron Percent Saturation 06/07/24Iron Percent Saturation 09/07/24Transferrin 06/07/24Transferrin 09/07/24US Aorta 08/08/24 [facility] Evaluation + Plan note Future Appointments Appointment Date:09/09/2024 11:00:00 AM Scheduled Provider:Ana Kumar Location:FT.ONCOLOGY Appointment Type:ONC Office Visit 30 (FT) Appointment Date:09/26/2024 02:00:00 PM Scheduled Provider: Location:.ONCOLOGY Appointment Type:ONC Injection (FT) Appointment Date:10/24/2024 02:15:00 PM Scheduled Provider: Location:.ONCOLOGY Appointment Type:ONC Injection (FT) Appointment Date:11/21/2024 02:15:00 PM Scheduled Provider: Location:.ONCOLOGY Appointment Type:ONC Injection (FT) Appointment Date:12/17/2024 08:00:00 AM Scheduled Provider: Location:[facility] Appointment Type: Medicare Wellness Subsequent Appointment Date:12/19/2024 02:15:00 PM Scheduled Provider: Location:.ONCOLOGY Appointment Type:ONC Injection (FT) Appointment Date:01/16/2025 02:05:00 PM Scheduled Provider: Location:.ONCOLOGY Appointment Type:ONC Injection (FT) Appointment Date:01/30/2025 09:15:00 AM Scheduled Provider:Ursula Love MD Location:[facility] Appointment Type:FM Open Appointment Date:02/13/2025 02:15:00 PM Scheduled Provider: Location:.ONCOLOGY Appointment Type:ONC Injection (FT) Appointment Date:03/13/2025 02:15:00 PM Scheduled Provider: Location:.ONCOLOGY Appointment Type:ONC Injection (FT) Future Scheduled TestsCBC w/ Auto Diff 06/07/24CBC w/ Auto Diff 09/07/24Comprehensive Metabolic Panel 06/07/24Comprehensive Metabolic Panel 09/07/24Ferritin 06/07/24Ferritin 09/07/24Iron Level 06/07/24Iron Level 09/07/24Iron Percent Saturation 06/07/24Iron Percent Saturation 09/07/24Transferrin 06/07/24Transferrin 09/07/24US Aorta 08/08/24 [facility] Evaluation + Plan note Future Appointments Appointment Date:09/09/2024 11:00:00 AM Scheduled Provider:Ana Kumar Location:.ONCOLOGY Appointment Type:ONC Office Visit 30 (FT) Appointment Date:09/26/2024 02:00:00 PM Scheduled Provider: Location:.ONCOLOGY Appointment Type:ONC Injection (FT) Appointment Date:10/24/2024 02:15:00 PM Scheduled Provider: Location:.ONCOLOGY Appointment Type:ONC Injection (FT) Appointment Date:11/21/2024 02:15:00 PM Scheduled Provider: Location:.ONCOLOGY Appointment Type:ONC Injection (FT) Appointment Date:12/17/2024 08:00:00 AM Scheduled Provider: Location:[facility] Appointment Type:FM Medicare Wellness Subsequent Appointment Date:12/19/2024 02:15:00 PM Scheduled Provider: Location:.ONCOLOGY Appointment Type:ONC Injection (FT) Appointment Date:01/16/2025 02:05:00 PM Scheduled Provider: Location:.ONCOLOGY Appointment Type:ONC Injection (FT) Appointment Date:01/30/2025 09:15:00 AM Scheduled Provider:Ursula Love MD Location:[facility] Appointment Type: Open Appointment Date:02/13/2025 02:15:00 PM Scheduled Provider: Location:.ONCOLOGY Appointment Type:ONC Injection (FT) Appointment Date:03/13/2025 02:15:00 PM Scheduled Provider: Location:.ONCOLOGY Appointment Type:ONC Injection (FT) Future Scheduled TestsCBC w/ Auto Diff 06/07/24Comprehensive Metabolic Panel 06/07/24Ferritin 06/07/24Iron Level 06/07/24Iron Percent Saturation 06/07/24Transferrin 06/07/24US Aorta 08/08/24 [facility] Evaluation + Plan note Future Appointments Appointment Date:09/26/2024 02:00:00 PM Scheduled Provider: Location:.ONCOLOGY Appointment Type:ONC Injection (FT) Appointment Date:10/24/2024 02:15:00 PM Scheduled Provider: Location:.ONCOLOGY Appointment Type:ONC Injection (FT) Appointment Date:11/21/2024 02:15:00 PM Scheduled Provider: Location:.ONCOLOGY Appointment Type:ONC Injection (FT) Appointment Date:12/17/2024 08:00:00 AM Scheduled Provider: Location:[facility] Appointment Type: Medicare Wellness Subsequent Appointment Date:12/19/2024 02:15:00 PM Scheduled Provider: Location:.ONCOLOGY Appointment Type:ONC Injection (FT) Appointment Date:01/16/2025 02:05:00 PM Scheduled Provider: Location:.ONCOLOGY Appointment Type:ONC Injection (FT) Appointment Date:01/30/2025 09:15:00 AM Scheduled Provider:Ursula Love MD Location:[facility] Appointment Type: Open Appointment Date:02/13/2025 02:00:00 PM [...] Percent Saturation 03/09/25Transferrin 06/07/24Transferrin 03/09/25US Aorta 08/08/24 [facility] Evaluation + Plan note Future Appointments Appointment Date:10/23/2024 02:30:00 PM Scheduled Provider: Location:.ONCOLOGY Appointment Type:ONC Injection (FT) Appointment Date:11/21/2024 02:15:00 PM Scheduled Provider: Location:.ONCOLOGY Appointment Type:ONC Injection (FT) Appointment Date:12/17/2024 08:00:00 AM Scheduled Provider: Location:[facility] Appointment Type: Medicare Wellness Subsequent Appointment Date:12/19/2024 02:15:00 PM Scheduled Provider: Location:.ONCOLOGY Appointment Type:ONC Injection (FT) Appointment Date:01/16/2025 02:05:00 PM Scheduled Provider: Location:.ONCOLOGY Appointment Type:ONC Injection (FT) Appointment Date:01/30/2025 09:15:00 AM Scheduled Provider:Ursula Love MD Location:[facility] Appointment Type: Open Appointment Date:02/13/2025 02:00:00 PM Scheduled Provider:Ana Kumar [facility] Office Visit [...] Percent Saturation 03/09/25Transferrin 06/07/24Transferrin 03/09/25US Aorta 08/08/24 [facility] Evaluation + Plan note Future Appointments Appointment Date:11/21/2024 02:15:00 PM Scheduled Provider: Location:.ONCOLOGY Appointment Type:ONC Injection (FT) Appointment Date:12/17/2024 08:00:00 AM Scheduled Provider: Location:[facility] Appointment Type: Medicare Wellness Subsequent Appointment Date:12/19/2024 02:15:00 PM Scheduled Provider: Location:.ONCOLOGY Appointment Type:ONC Injection (FT) Appointment Date:01/16/2025 02:05:00 PM Scheduled Provider: [facility] Type:[facility]C Injection (FT) Appointment Date:01/30/2025 09:15:00 AM Scheduled Provider:Ursula [facility] MD [facility] Appointment Date:02/13/2025 02:00:00 PM Scheduled Provider:Ana Kumar Evelyn Location:.ONCOLOGY Appointment Type:ONC Office Visit 20 (FT) Appointment Date:02/13/2025 02:15:00 PM Scheduled Provider: Location:.ONCOLOGY Appointment Type:ONC Injection (FT) Appointment Date:03/13/2025 02:15:00 PM Scheduled Provider: Location:.ONCOLOGY Appointment Type:ONC Injection (FT) Future Scheduled TestsCBC w/ Auto Diff 06/07/24CBC w/ Auto Diff 03/09/25Comprehensive Metabolic Panel 06/07/24Comprehensive Metabolic Panel 03/09/25Ferritin 06/07/24Ferritin 03/09/25Iron Level 06/07/24Iron Level 03/09/25Iron Percent Saturation 06/07/24Iron Percent Saturation 03/09/25Transferrin 06/07/24Transferrin 03/09/25US Aorta 08/08/24 [facility] Evaluation + Plan note Future Appointments Appointment Date:12/17/2024 08:00:00 AM Scheduled Provider: Location:[facility] Appointment Type: Medicare Wellness Subsequent Appointment Date:12/19/2024 02:15:00 PM Scheduled Provider: Location:.ONCOLOGY Appointment Type:ONC Injection (FT) Appointment Date:01/16/2025 02:05:00 PM Scheduled Provider: Location:.ONCOLOGY Appointment Type:ONC Injection (FT) Appointment Date:01/30/2025 09:15:00 AM Scheduled Provider:Ursula Love MD Location:[facility] Appointment Type:FM Open Appointment Date:02/13/2025 02:00:00 [...] Percent Saturation 06/07/24Iron Percent Saturation 03/09/25Transferrin 06/07/24Transferrin 25US Aorta 08/08/24 [facility] Evaluation + Plan note Future Appointments Appointment Date:01/30/2025 09:15:00 AM Scheduled Provider:Ursula Love MD Location:[facility] Appointment Type: Open Appointment Date:01/30/2025 09:30:00 AM Scheduled Provider: Location:[facility] Appointment Type: Medicare Wellness Subsequent Appointment Date:02/13/2025 02:00:00 PM Scheduled Provider:Bharath Melton DO [facility] Type:ONC Office Visit 20 (FT) Appointment Date:02/13/2025 02:15:00 PM Scheduled Provider: [facility] Type:ONC Injection (FT) Appointment Date:03/13/2025 02:15:00 PM Scheduled Provider: [facility] Type:[facility]C Injection (FT) Future Scheduled TestsCBC w/ Auto Diff 02/26/25Comprehensive Metabolic Panel 02/26/25Ferritin 02/26/25Iron Level 02/26/25Iron Percent Saturation 02/26/25Transferrin 02/26/25US Aorta 08/08/24 [facility] Evaluation + Plan note Future Appointments Appointment Date:02/13/2025 02:00:00 PM Scheduled Provider:Bharath Melton DO Location:.ONCOLOGY Appointment Type:ONC Office Visit 20 (FT) Appointment Date:02/13/2025 02:15:00 PM Scheduled Provider: [facility] Type:ONC Injection (FT) Appointment Date:03/13/2025 02:15:00 PM Scheduled Provider: Location:.ONCOLOGY Appointment Type:ONC Injection (FT) Appointment Date:07/31/2025 11:00:00 AM Scheduled Provider:Urslua Love MD Location:[facility] Appointment Type: Open Appointment Date:02/02/2026 11:00:00 AM Scheduled Provider: Location:[facility] Appointment Type:FM Medicare Wellness Subsequent Future Scheduled [id number] 01/30/25Lipid Panel 01/30/25US Aorta 08/08/24 [facility] Evaluation + Plan note Future Appointments Appointment Date:03/13/2025 02:15:00 PM Scheduled Provider: [facility] Type:ONC Injection (FT) Appointment Date:07/31/2025 11:00:00 AM Scheduled Provider:Ursula Love MD Location:[facility] Appointment Type: Open Appointment Date:02/02/2026 11:00:00 AM Scheduled Provider: Location:[facility] Appointment Type: Medicare Wellness Subsequent Appointment Date:02/18/2026 02:40:00 PM Scheduled Provider:Bharath Melton DO [facility] Type:ONC Office Visit 20 () Future Scheduled [id number] 01/30/25CBC w/ Auto Diff 02/13/26Comprehensive Metabolic Panel 02/13/26Ferritin 02/13/26Folate Level 02/13/26Iron Level 02/13/26Iron Percent Saturation 02/13/26Lipid Panel 01/30/25Transferrin 02/13/26Vitamin B12 Level 02/13/26US Aorta 08/08/24 [facility] Evaluation note Diagnosis Persistent atrial fibrillation (HCC)- Primary [facility] Atrial fibrillation, unspecified type (HCC)- Primary [facility] Diagnosis Seborrheic keratosis, inflamed- Primary Capillary angioma Nevus, non-neoplastic Actinic keratosis Melanocytic nevus of trunk Benign neoplasm of skin of trunk, except scrotum Melanocytic nevus of left lower extremity Seborrheic keratosis [facility] Pre-op evaluation- Primary Preoperative examination, unspecified Gastroesophageal reflux disease, unspecified whether esophagitis present Type 2 diabetes mellitus without retinopathy (HCC) Type II or unspecified type diabetes mellitus without mention of complication, not stated as uncontrolled Primary hypertension Unspecified essential hypertension Persistent atrial fibrillation (HCC) Atrial fibrillation Coronary artery disease involving [place] coronary artery of [place] heart without angina pectoris Dyslipidemia Other and unspecified hyperlipidemia Abdominal aortic aneurysm (AAA) without rupture, unspecified part Combined forms of age-related cataract of right eye Other and combined forms of senile cataract Hx of LASIK Other states following surgery of eye and adnexa Type 2 diabetes mellitus without retinopathy (HCC) Type II or unspecified type diabetes mellitus without mention of complication, not stated as uncontrolled Nonexudative age-related macular degeneration, bilateral, early dry 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 PVD (posterior vitreous detachment), bilateral * Assessment & Plan Note - Munira Marshall APRN.CNP - 03/12/2025 9:22 AM EDT Associated Problem(s): AAA (abdominal aortic aneurysm) Assessment: Stable monitored by Cardiology * Assessment & Plan Note - Munira Marshall APRN.CNP - 03/12/2025 9:21 AM EDT Associated Problem(s): Dyslipidemia Assessment: Compliant with Statin * Assessment & Plan Note - Munira Marshall APRN.CNP - 03/12/2025 9:20 AM EDT Associated Problem(s): CAD (coronary artery disease) Assessment: Stable Negative stress test in 2022 Denies any chest pain or shortness of breath On atorvastatin, metoprolol, and ranexa * Assessment & Plan Note - Munira Marshall APRN.CNP - 03/12/2025 9:19 AM EDT Associated Problem(s): Atrial fibrillation (HCC) Assessment: S/p ablation in 2017 at [facility] Redo ablation in October of this year with success No recurrence On metoprolol twice daily and diltiazem as rescue Anticoagulated on Eliquis RRR on exam today Follows with [facility] * Assessment & Plan Note - Munira Marshall APRN.CNP - 03/12/2025 9:16 AM EDT Associated Problem(s): Hypertension Assessment: Controlled with medication management 172/77 in office today Patient has whitecoat syndrome Takes his blood pressure at home daily showed me the readings typically 100-120/60-70's Denies any chest pain, shortness of breath, headache, dizziness or lightheadedness * Assessment & Plan Note - Munira Marshall APRN.CNP - 03/12/2025 9:06 AM EDT Associated Problem(s): Type 2 diabetes mellitus without retinopathy (HCC) Assessment: Complaint with Metformin Instructions provided to patient on how long to hold diabetic medications prior to procedure * Assessment & Plan Note - Munira Marshall APRN.CNP - 03/12/2025 9:05 AM EDT Associated Problem(s): GERD (gastroesophageal reflux disease) Assessment: Controlled with PPI [facility] Combined forms of age-related cataract of right eye Other and combined forms of senile cataract Combined forms of age-related cataract of left eye Other and combined forms of senile cataract Hx of LASIK Other states following surgery of eye and adnexa Pre-op evaluation- Primary Preoperative examination, unspecified Gastroesophageal reflux disease, unspecified whether esophagitis present Type 2 diabetes mellitus without retinopathy (HCC) Type II or unspecified type diabetes mellitus without mention of complication, not stated as uncontrolled Primary hypertension Unspecified essential hypertension Persistent atrial fibrillation (HCC) Atrial fibrillation Coronary artery disease involving [place] coronary artery of [place] heart without angina pectoris Dyslipidemia Other and unspecified hyperlipidemia Abdominal aortic aneurysm (AAA) without rupture, unspecified part Combined forms of age-related cataract of right eye Other and combined forms of senile cataract Hx of LASIK Other states following surgery of eye and adnexa Type 2 diabetes mellitus without retinopathy (HCC) Type II or unspecified type diabetes mellitus without mention of complication, not stated as uncontrolled Nonexudative age-related macular degeneration, bilateral, early dry 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 PVD (posterior vitreous detachment), bilateral [facility] Inflamed seborrheic keratosis [facility]* Diagnosis Pre-op evaluation- Primary Preoperative examination, unspecified Gastroesophageal reflux disease, unspecified whether esophagitis present Type 2 diabetes mellitus without retinopathy (HCC) Type II or unspecified type diabetes mellitus without mention of complication, not stated as uncontrolled Primary hypertension Unspecified essential hypertension Persistent atrial fibrillation (HCC) Atrial fibrillation Coronary artery disease involving [place] coronary artery of [place] heart without angina pectoris Dyslipidemia Other and unspecified hyperlipidemia Abdominal aortic aneurysm (AAA) without rupture, unspecified part Combined forms of age-related cataract of left eye- Primary Other and combined forms of senile cataract S/P cataract extraction and insertion of intraocular lens, right Combined forms of age-related cataract of left eye Other and combined forms of senile cataract documented in this encounter [facility] Discharge instructions No data available for this section [facility] Progress note No data available for this section [facility] Reason for referral (narrative)* Outpatient Procedure (Routine) - Authorized Specialty Diagnoses / Procedures Referred By Contac t Referred [facility] Diagnoses Persistent atrial fibrillation (HCC) Procedures ECG COMPLETE ECG ROUTINE ECG W/LEAST 12 LDS W/I&R Jannet Gonzalez MD [address] [place] [address] [address] Referral ID Status Reason Start Date Expiration Date Visits Requested Visits Authorized [id number] Authorized Auto-Generat ed Referral 02/03/2022 02/03/2023 1 1 [facility] Procedure (Routine) - Authorized Specialty Diagnoses / Procedures Referred By Contac t Referred To Contact [facility] Diagnoses Atrial fibrillation, unspecified type (HCC) Procedures ECG COMPLETE ECG ROUTINE ECG W/LEAST 12 LDS W/I&R Jannet Gonzalez MD [address] [place] [address] [address] Referral ID Status Reason Start Date Expiration Date Visits Requested Visits Authorized [id number] Authorized Auto-Generat ed Referral 06/27/2024 06/27/2025 1 1 [facility] Summary Purpose Family History No Family [...] FoundDocuments on File Type Date 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 DATE CREATED AUTHOR AUTHOR'S ORGANIZ ATION 01/17/2023 [facility] DATE CREATED AUTHOR AUTHOR'S ORGANIZ ATION 03/12/2024 H[facility] Love [facility] DATE CREATED AUTHOR AUTHOR'S ORGANIZ ATION 03/13/2024 H[facility] Mark [facility] DATE CREATED AUTHOR AUTHOR'S ORGANIZ ATION 09/07/2024 [facility] DATE CREATED AUTHOR AUTHOR'S ORGANIZ ATION 11/22/2024 [facility] DATE CREATED AUTHOR AUTHOR'S ORGANIZ ATION 01/31/2025 H[facility] Love [facility] DATE CREATED AUTHOR AUTHOR'S ORGANIZ ATION [facility] CREATED AUTHOR AUTHOR'S ORGANIZ ATION 02/13/2025 [facility] DATE CREATED AUTHOR AUTHOR'S ORGANIZ ATION 03/12/2025 [facility] DATE CREATED AUTHOR AUTHOR'S ORGANIZ ATION 04/01/2025 [facility] DATE CREATED AUTHOR AUTHOR'S ORGANIZ ATION 04/08/2025 [facility] DATE CREATED AUTHOR AUTHOR'S ORGANIZ ATION 05/05/2025 [facility] DATE CREATED AUTHOR AUTHOR'S ORGANIZ ATION 05/12/2025 Ona Love [facility] Source Comments (unrecognize d section and content) In the event this informatio n is protected by the Federal Confidentiality of Alcohol and Drug Abuse Patient Records regulations: The Federal rules restrict any use of the information to criminally investigate or prosecute any alcohol or drug abuse patient.[facility] the event this information is protected by the Federal Confidentiality of Alcohol and Drug Abuse Patient Records regulations: The Federal rules restrict any use of the information to criminally investigate or prosecute any alcohol or drug abuse patient.[facility] the event this information is protected by the Federal Confidentiality of Alcohol and Drug Abuse Patient Records regulations: The Federal rules restrict any use of the information to criminally investigate or prosecute any alcohol or drug abuse patient.[facility] the event this information is protected by the Federal Confidentiality of Alcohol and Drug Abuse Patient Records regulations: The Federal rules restrict any use of the information to criminally investigate or prosecute any alcohol or drug abuse patient.[facility] the event this information is protected by the Federal Confidentiality of Alcohol and Drug Abuse Patient Records regulations: The Federal rules restrict any use of the information to criminally investigate or prosecute any alcohol or drug abuse patient.[facility] the event this information is protected by the Federal Confidentiality of Alcohol and Drug Abuse Patient Records regulations: The Federal rules restrict any use of the information to criminally investigate or prosecute any alcohol or drug abuse patient.[facility] Care Teams (unrecognized sec tion and content) Physical Education Department Chair Relationship Specialty Start Date End Date Michael Green PCP - General Family Practice 08/11/14 Jannet Gonzalez MD [address] [place] [address] Primary Staff Physician Cardiology 02/03/22 Physical Education Department Chair Relationship Specialty Start Date End Date Michael GreenDO PCP - General Family Medicine 08/11/14 Jannet Gonzalez MD Primary Staff Physician Cardiology 02/03/22 Physical Education Department Chair Relationship Specialty Start Date End Date Ursula Love MD PCP - General Family Medicine 02/01/24 Physical Education Department Chair Relationship Specialty Start Date End Date Ursula Love MD PCP - General Family Medicine 02/01/24 Physical Education Department Chair Relationship Specialty Start Date End Date Ursula Love MD [address] [facility] [place] [address] PCP - General Family Medicine 03/07/25 Jannet Gonzalez MD Primary Staff Physician Cardiology 02/03/22 Physical Education Department Chair Relationship Specialty Start Date End Date Ursula Love MD [address] [facility] [place] [address] PCP - General Family Medicine 03/07/25 Jannet Gonzalez MD Primary Staff Physician Cardiology 02/03/22 Physical Education Department Chair Relationship Specialty Start Date End Date Ursula Love MD [address] [facility] [place] [address] PCP - General Family Medicine 03/07/25 Jannet Gonzalez MD Primary Staff Physician Cardiology 02/03/22 Physical Education Department Chair Relationship Specialty Start Date End Date Ursula Love MD [address] [place] [address] PCP - General Family Medicine 02/01/24 Physical Education Department Chair Relationship Specialty Start Date End Date Ursula Love MD [address] [place] [address] PCP - General Family Medicine 02/01/24 Physical Education Department Chair Relationship Specialty Start Date End Date Ursula Love MD [address] [place], [place] [id number] PCP - General Family Medicine 03/07/25 Jannet Gonzalez MD Primary Staff Physician Cardiology 02/03/22 Reason for Visit (unrecogniz ed section and content) Reason Comments Skin Check Reason Comments Anesthesia Consult Reason Comments Pre-Op Exam Reason Onset Date Comments Refill Request 03/12/2025 Reason Comments Cataract Evaluation Left eye Posterior c hamber intraocular lens Right eye done 03/19/[address] Syed FOR RECORDS PERTAINING TO PATIENTS WHO ARE [...] BE BASED ON THE PRIMARY CLINICAL RECORDS. [employer] provides no warranty or guarantee of the accuracy or completeness of information in this document.
--- NOTE | 2025-07-18 13:20 | CT_ITS ---
The [address] [address] Patient Name: MARCELLE DEUTSCH MRN: [id number] date: 1960 Sex: M Assigned Patient Location: LAB Current Patient Location: LAB Accession/Order Number: [id number] Exam Date: 07/18/2025 13:42 Report Date: 07/18/2025 14:59 At the request of: YVES DEVLIN APRN Procedure: CT angio abdomen pelvis CTA chest and CTA abdomen and pelvis . CLINICAL DATA: Aneurysm of ascending thoracic aorta.. TECHNIQUE: Intravenous contrast-enhanced CT angiography of the chest and CT angiography of the abdomen and pelvis were performed. Axial, sagittal, coronal, and 3D-dimensional reconstructions were created and reviewed. These CT exams were performed using one or more of the following dose reduction techniques: Automated exposure control, adjustment of the mA and/or kV according to patient size, or use of iterative reconstruction technique. COMPARISON: CT chest, abdomen and pelvis 07/16/2024. FINDINGS: Chest: Mediastinum:The thoracic aorta appears unchanged in caliber with the AC ascending thoracic aorta measuring 4.2 cm and the descending thoracic aorta measuring 3.5 cm in greatest dimensions. Moderate calcification. No dissection or rupture is seen. Pulmonary trunk appears nondilated. No pericardial effusion. No lymphadenopathy. The esophagus is grossly remarkable. Lungs:No consolidation pneumothorax or pleural effusion. Mild bibasilar atelectasis. Soft tissues/Bones: No acute findings. Osseous structures demonstrate degenerative change. Abdomen and pelvis: Organs:Liver gallbladder spleen and adrenal glands appear unremarkable. No enhancing renal mass or hydronephrosis. There is ill-defined fullness involving the pancreatic tail measuring 5.8 cm in greatest axial dimension. Abdominal aorta demonstrates a infrarenal abdominal aortic aneurysm measuring 4.6 cm with associated partial thrombosis. There appears be a focal dissection just superior to the aneurysm. Finding is grossly unchanged from the prior study. 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 No critical stenosis or occlusion is seen involving the major visceral branches of the abdominal aorta.[ GI: Stomach is nondistended. Small bowel appears nondilated. Sigmoid diverticulosis.[ Pelvis:[Urinary bladder is grossly unremarkable. Prostatomegaly.] Peritoneum/Retroperitoneum:No free air or free fluid or lymphadenopathy.[ Abd wall/Bones:No acute findings. Osseous structures demonstrate degenerative change.[ CT/CT angio abdomen pelvis IMPRESSION: 1. No significant change in aortic findings when compared to the prior study within the chest or abdomen. 2. Ill-defined fullness involving the pancreatic tail measuring 5.8 cm in greatest axial dimensions measures for malignancy. Further evaluation with MRI and endoscopic ultrasound is suggested. Impression dictated by: Valentin Jimenez Jr., D.ONelly 07/18/2025 2:59 PM Dictation Location: [place] [address] Electronically authenticated by: [id number] Y Date: 07/18/2025 14:59
--- NOTE | 2025-07-18 13:22 | CT_ITS ---
The [address] [address] Patient Name: MARCELLE DEUTSCH MRN: [id number] date: 1960 Sex: M Assigned Patient Location: LAB Current Patient Location: LAB Accession/Order Number: [id number] Exam Date: 07/18/2025 13:42 Report Date: 07/18/2025 14:59 At the request of: YVES DEVLIN APRN Procedure: CT angio abdomen pelvis CTA chest and CTA abdomen and pelvis . CLINICAL DATA: Aneurysm of ascending thoracic aorta.. TECHNIQUE: Intravenous contrast-enhanced CT angiography of the chest and CT angiography of the abdomen and pelvis were performed. Axial, sagittal, coronal, and 3D-dimensional reconstructions were created and reviewed. These CT exams were performed using one or more of the following dose reduction techniques: Automated exposure control, adjustment of the mA and/or kV according to patient size, or use of iterative reconstruction technique. COMPARISON: CT chest, abdomen and pelvis 07/16/2024. FINDINGS: Chest: Mediastinum:The thoracic aorta appears unchanged in caliber with the AC ascending thoracic aorta measuring 4.2 cm and the descending thoracic aorta measuring 3.5 cm in greatest dimensions. Moderate calcification. No dissection or rupture is seen. Pulmonary trunk appears nondilated. No pericardial effusion. No lymphadenopathy. The esophagus is grossly remarkable. Lungs:No consolidation pneumothorax or pleural effusion. Mild bibasilar atelectasis. Soft tissues/Bones: No acute findings. Osseous structures demonstrate degenerative change. Abdomen and pelvis: Organs:Liver gallbladder spleen and adrenal glands appear unremarkable. No enhancing renal mass or hydronephrosis. There is ill-defined fullness involving the pancreatic tail measuring 5.8 cm in greatest axial dimension. Abdominal aorta demonstrates a infrarenal abdominal aortic aneurysm measuring 4.6 cm with associated partial thrombosis. There appears be a focal dissection just superior to the aneurysm. Finding is grossly unchanged from the prior study. 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 No critical stenosis or occlusion is seen involving the major visceral branches of the abdominal aorta.[ GI: Stomach is nondistended. Small bowel appears nondilated. Sigmoid diverticulosis.[ Pelvis:[Urinary bladder is grossly unremarkable. Prostatomegaly.] Peritoneum/Retroperitoneum:No free air or free fluid or lymphadenopathy.[ Abd wall/Bones:No acute findings. Osseous structures demonstrate degenerative change.[ CT/CT angio chest IMPRESSION: 1. No significant change in aortic findings when compared to the prior study within the chest or abdomen. 2. Ill-defined fullness involving the pancreatic tail measuring 5.8 cm in greatest axial dimensions measures for malignancy. Further evaluation with MRI and endoscopic ultrasound is suggested. Impression dictated by: Valentin Jimenez Jr., D.O. 07/18/2025 2:59 PM Dictation Location: [place] [address] Electronically authenticated by: [id number] Y Date: 07/18/2025 14:59
[2025-07-18 13:33] LABS: Estimated GFR (African America >60 (>=60 mL/min/1.73m^2); Estimated GFR (Non-African Ame >60 (>=60 mL/min/1.73m^2)
== END 2025-07-18 13:09 | disposition home or self-care (01) ==
LOC: LAB 13:09
PROVIDERS: PCP Family Medicine; Visit Provider Nurse Practitioner Family
DX: I71.21 Aneurysm of the ascending aorta, without rupture (principal)
CPT/HCPCS: 36415; 71275; 74174; 82565; Q9967